=== PATIENT | female | born 1945 | race Caucasian/White ===

== ENCOUNTER 2019-12-15 13:47 | Outpatient (CLI) | payer MEDICARE, MEDICAID, SELFPAY ==
[2019-12-15 14:49] LABS: Creatinine Urine > 346.5 mg/dL; Total Protein Urine Random 69 mg/dL
[2019-12-15 14:54] LABS: Albumin Level 3.9 g/dL (3.5-5.1); Blood Urea Nitrogen 24 mg/dL (7-17); Calcium 8.9 mg/dL (8.4-10.2); Carbon Dioxide 26 mmol/L (22-30); Chloride 100 mmol/L (98-107); Estimated Glomerular Filt Rate 37; Glucose 102 mg/dL (65-105); Phosphorus 2.9 mg/dL (2.5-4.5); Potassium 3.6 mmol/L (3.4-5.0); Sodium 137 mmol/L (137-145)
[2019-12-15 15:06] LABS: Parathyroid Intact 61.4 pg/mL (7.5-53.5)
[2019-12-15 15:33] LABS: Vitamin D 25 Hydroxy 35.9 ng/mL
== END 2019-12-15 13:48 | disposition home or self-care (01) ==
PROVIDERS: PCP Family Medicine; Visit Provider Internal Medicine Nephrology
DX: N18.3 Chronic kidney disease, stage 3 (moderate) (principal); I12.9 Hypertensive chronic kidney disease with stage 1 through stage 4 chronic kidney disease, or unspecified chronic kidney disease; R80.8 Other proteinuria
CPT/HCPCS: 36415; 80069; 82306; 82570; 83970; 84156

== ENCOUNTER 2019-12-17 12:45 | Outpatient (CLI) | payer MEDICARE, MEDICAID, SELFPAY ==
--- NOTE | ~2019-12-17 | CT_ITS ---
EXAMINATION: CT lung screening EXAM DATE: 12/17/2019 13:46 INDICATION: Chest pain, shortness of breath, cough. Personal history of nicotine dependence. TECHNIQUE: Spiral low dose CT of the chest without contrast. Axial, coronal and sagittal images were reviewed. The dose-length product (DLP) for this examination was 185.34 mGy-cm. The exposure was t ailored according to patient size (auto mA exposure control), and iterative reconstruction (ASIR) was used as additional dose reduction technique. There is no prior study for comparison. FINDINGS: Some scattered mosaic attenuation probably mild air trapping. Several punctate granulomas unchanged. There is mild bronchiectasis. Tracheobronchial tree is patent. There is no mediastinal, hilar or axillary lymphadenopathy. There are no pleural or pericardial effusions. There is no pn eumothorax. Heart normal in size. There is moderate coronary arterial calcification, arterial scl erosis. Mild emphysema. There are cholecystectomy clips. Left adrenal adenoma. There is thoracic s pondylosis without osteoblastic or osteolytic lesions identified. IMPRESSION: Lung-RADS category 2, benign appearance or behavior (<1% chance of malignancy); recommend continued LDCT screening in 1 year. > Reviewed, dictated and finalized at location B. T RELATIONS COORDINATOR
== END 2019-12-17 12:46 | disposition home or self-care (01) ==
PROVIDERS: PCP Family Medicine; Visit Provider Internal Medicine Critical Care Medicine
DX: Z12.2 Encounter for screening for malignant neoplasm of respiratory organs (principal); Z87.891 Personal history of nicotine dependence
CPT/HCPCS: G0297

== ENCOUNTER 2019-12-17 13:48 | Emergency (ER) | payer MEDICARE, MEDICAID, SELFPAY ==
[2019-12-17] VITALS (8 sets, daily range): BP systolic 130–131; BP diastolic 70–80; PULSE 68–86; RESP 15–24; TEMP 36.2–37.1; O2SAT 98–100
--- NOTE | ~2019-12-17 | XR_ITS ---
EXAMINATION: XR chest 2V EXAM DATE: 12/17/2019 14:14 INDICATION: Shortness of breath, cough and nausea. TECHNIQUE: Frontal and lateral projections of the chest obtained and reviewed. Comparison is made to prior examination from 10/16/2018. FINDINGS: Shortness of breath, cough and nausea. The lungs are clear. There are no pleural effusion s. The cardiomediastinal silhouette is within normal limits. There is no pneumothorax suspected. T he bones and soft tissues are unremarkable. There is aortic arterial sclerosis. IMPRESSION: No acute cardiopulmonary findings. Reviewed, dictated and finalized at location B. H HAND
--- NOTE | 2019-12-17 13:54 | ECG_ITS ---
Measurements Intervals [place] Rate: 71 P: 14 SD: 162 QRS: -27 QRSD: 98 T: 65 QT: 426 QTc: 466 Interpretive Statements SINUS RHYTHM VOLTAGE CRITERIA FOR LVH CANNOT RULE OUT SEPTAL INFARCT, AGE INDETERMINATE BORDERLINE ST ABNORMALITY- LATERAL LEADS BASELINE ARTIFACT- I, II, III, AVR, AVL, AVF, V1, V5-V6 ABNORMAL ECG Electronically Signed On 12-18-2019 10:49:08 EMERGENCY VEHICLE DRIVER by Peterson Roque D.O.
[2019-12-17 14:10] LABS: Basophils Percent Auto 0.2 % (0.2-1.2); Eosinophils Percent Auto 0.2 % (0-4.4); Hematocrit 38.9 % (37.0-47.0); Hemoglobin 12.5 g/dL (12.0-15.0); Immature Granulocyte Absolute 0.03 K/mm3 (0.00-0.031); Immature Granulocyte Percent A 0.4 % (0-0.5); Lymphocytes Absolute Auto 2.21 K/mm3 (0.9-3.2); Lymphocytes Percent Auto 27.3 % (18.3-44.2); Mean Corpuscular HGB Conc 32.1 g/dl (32-36); Mean Corpuscular Hemoglobin 28.6 pg (26-34); Mean Platelet Volume 9.7 fl (7.4-10.4); Monocytes Absolute Auto 0.9 K/mm3 (0.1-0.6); Monocytes Percent Auto 11.1 % (2.6-8.5); Neutrophils Absolute Auto 4.9 K/mm3 (1.3-6.7); Neutrophils Percent Auto 60.8 % (45.5-73.1); Platelet Count Result 335 k/mm3 (150-375); Red Blood Count 4.37 M/mm3 (4.2-5.4); Red Cell Distribution Width 13.5 % (11.5-14.5); White Blood Count 8.1 K/mm3 (4.5-10.0)
[2019-12-17 14:21] LABS: Blood Urea Nitrogen 21 mg/dL (7-17); Calcium 9.4 mg/dL (8.4-10.2); Carbon Dioxide 25 mmol/L (22-30); Chloride 99 mmol/L (98-107); Estimated CRCL calculation 34 ml/min; Estimated Glomerular Filt Rate 40; Glucose 111 mg/dL (65-105); Potassium 3.7 mmol/L (3.4-5.0); Sodium 139 mmol/L (137-145)
--- NOTE | 2019-12-17 14:33 | ED.SOB ---
HPI - SOB/Dyspnea General Chief Complaint: Shortness of Breath/Dyspnea Stated Complaint: sob Time Seen by Provider: 12/17/19 14:28 Source: patient and RN notes reviewed Mode of arrival: ambulatory Limitations: no limitations History of Present Illness HPI Narrative: Pt is a 74 y/o female with a Hx of COPD, who presents to the ED with c/o SOB. She notes that she has had SOB for roughly the past month. Pt states that she was recently seen by her pipe organ mechanic, Dr. Jennings, for her symptoms, and notes that she was prescribed steroids. She states that the medication seemed to alleviate her symptoms. Pt notes that her grandchildren were recently diagnosed with the flu, and states that she is concerned she may also have the flu. She states that she has recently had a productive cough, shakiness, nausea, and vomiting. MD elicited complaint: shortness of breath Pertinent past history: COPD Onset (ago): month(s) (1) Known history of: COPD Associated symptoms: cough (productive), nausea/vomiting and other (shakiness) Related Data Home Medications Medication Instructions Recorded Confirmed fluoxetine 60 mg tablet 60 mg PO DAILY 11/19/19 11/20/19 fluticasone fur. 100 mcg-umeclid 1 inhalation INHALATION DAILY 11/19/19 11/20/19 62.5 mcg-vilant 25 mcg inhalat.powder hydralazine 25 mg tablet 25 mg PO TID 11/19/19 11/20/19 levothyroxine 112 mcg tablet 112 mcg PO DAILY 11/19/19 11/20/19 atorvastatin 40 mg tablet 40 mg PO DAILY 11/20/19 11/20/19 hydrochlorothiazide 25 mg tablet 25 mg PO DAILY 11/20/19 11/20/19 hydrocodone 10 mg-acetaminophen 1 tablet PO Q8H PRN 11/20/19 11/20/19 325 mg tablet magnesium 200 mg tablet 400 mg PO DAILY tablet 11/20/19 11/20/19 Allergies Allergy/AdvReac Type Severity Reaction Status Date / Time NILTON Inhibitors Allergy Unknown Angioedema Verified 12/17/19 14:35 Review of Systems Review of Systems: All systems reviewed & are unremarkable except as noted in HPI and below Constitutional: Constitutional: Reports other (shakiness) Respiratory: Respiratory: Reports cough (productive) and Reports dyspnea Gastrointestinal: Gastrointestinal: Reports nausea and Reports vomiting PMFSH Past Medical History Medical History Anxiety Arthritis Asthma Bronchitis Carpal tunnel syndrome CHF (congestive heart failure) Chronic obstructive pulmonary disease Depression Diabetes GERD (gastroesophageal reflux disease) Hiatal hernia HLD (hyperlipidemia) HTN (hypertension) Hypothyroidism Kidney stones NICOLA (obstructive sleep apnea) Pneumonia Renal disease RLS (restless legs syndrome) Surgical History Surgical History History of carpal tunnel release Hx of cholecystectomy Hx of elbow surgery bilateral ulnar release Hx of hysterectomy Hx of spinal surgery Family History Family History (Updated 06/04/16 @ 23:19 by DOCTOR UNKNOWN) Father Hypertension Family history of malignant neoplasm of brain Family history of heart disease in male family member before age 55 Mother Family history of diabetes mellitus in first degree relative Family history of heart disease in male family member before age 55 Social History Social History Smoking packs per day: 1 Smoking cigarettes per day: 20.0 Smoking status: Current every day smoker Alcohol intake: never Comments PCP is Dr. Mueller. Exam Narrative: Exam Narrative: APPEARANCE: No acute distress, nontoxic, resting in bed EYES: EOMI HEENT: Normocephalic, atraumatic, bilateral turbinates boggy, mild erythema no exudate posterior pharynx RESPIRATORY: No respiratory distress wheezing in bilateral upper lung chaparro, no rhonchi or rales CARDIOVASCULAR: Regular rate and rhythm without murmurs rubs or gallops. ABDOMINAL: Soft, nontender, nondistended, no rebound or guarding MUSCULOSKELETAl: Moves all extremities. No
[2019-12-17] MEDS: predniSONE 20 MG TABLET 60 MG PO (14:45)
[2019-12-17] MEDS: IPRATROPIUM BR 0.02% INH SOLN 0.5 MG/2.5 ML VIAL INHALATION ×2 (14:49→15:30)
[2019-12-17] MEDS: ALBUTEROL SULFATE NEB 2.5 MG/0.5 ML INH 5 MG INHALATION ×2 (14:49→15:30)
[2019-12-17 15:10] LABS: NT Pro B Type Natriuretic Pept 161 PG/ML (5-100); Troponin I < 0.012 ng/mL (0.000-0.034)
== END 2019-12-17 16:14 | disposition home or self-care (01) ==
PROVIDERS: Emergency Provider Emergency Medicine; PCP Family Medicine
DX: J44.0 Chronic obstructive pulmonary disease with (acute) lower respiratory infection (principal); J20.9 Acute bronchitis, unspecified; F41.9 Anxiety disorder, unspecified; M19.90 Unspecified osteoarthritis, unspecified site; I11.0 Hypertensive heart disease with heart failure; I50.9 Heart failure, unspecified; F32.9 Major depressive disorder, single episode, unspecified; E11.9 Type 2 diabetes mellitus without complications; K21.9 Gastro-esophageal reflux disease without esophagitis; E78.5 Hyperlipidemia, unspecified; E03.9 Hypothyroidism, unspecified; Z87.442 Personal history of urinary calculi; G47.30 Sleep apnea, unspecified; G25.81 Restless legs syndrome
CPT/HCPCS: 36415; 71046; 80048; 83880; 84484; 85025; 87804; 93005; 94640; 99284; J7512

== ENCOUNTER 2020-11-20 14:40 | Outpatient (CLI) | payer MEDICARE, MEDICAID, SELFPAY ==
--- NOTE | ~2020-11-20 | XR_ITS ---
EXAMINATION: XR chest 2V EXAM DATE: 11/20/2020 15:16 INDICATION: Cough since 10/31/2020, shortness of breath and hypertension. TECHNIQUE: Frontal and lateral projections of the chest obtained and reviewed. Comparison is made to prior examination from 12/17/2019. FINDINGS: There is aortic arteriosclerosis. There are cholecystectomy clips. The lungs are clear. T here are no pleural effusions. The cardiomediastinal silhouette is within normal limits. There is n o pneumothorax suspected. The bones and soft tissues are unremarkable. IMPRESSION: No acute cardiopulmonary findings. Reviewed, dictated and finalized at location B. BRANDER
[2020-11-20 15:08] LABS: Basophils Absolute Auto 0.1 K/mm3 (0.0-0.1); Eosinophils Absolute Auto 0.1 K/mm3 (0-0.3); Eosinophils Percent Auto 2.1 % (0-4.4); Hematocrit 31.7 % (37.0-47.0); Hemoglobin 10.4 g/dL (12.0-15.0); Immature Granulocyte Absolute 0.02 K/mm3 (0.00-0.031); Immature Granulocyte Percent A 0.3 % (0-0.5); Lymphocytes Absolute Auto 1.88 K/mm3 (0.9-3.2); Mean Corpuscular HGB Conc 32.8 g/dl (32-36); Mean Corpuscular Hemoglobin 29.7 pg (26-34); Mean Corpuscular Volume 90.6 fl (80-100); Mean Platelet Volume 9.1 fl (7.4-10.4); Monocytes Absolute Auto 0.9 K/mm3 (0.1-0.6); Neutrophils Absolute Auto 3.1 K/mm3 (1.3-6.7); Neutrophils Percent Auto 51.6 % (45.5-73.1); Platelet Count Result 242 k/mm3 (150-375); Red Cell Distribution Width 13.3 % (11.5-14.5); White Blood Count 6.1 K/mm3 (4.5-10.0)
[2020-11-20 15:19] LABS: Alanine Aminotransferase 15 U/L (4-35); Albumin Level 3.8 g/dL (3.5-5.1); Alkaline Phosphatase 48 U/L (38-126); Anion Gap 3 mmol/L (8-16); Aspartate Amino Transferase 29 U/L (14-36); Bilirubin,Total 0.3 mg/dL (0.2-1.3); Blood Urea Nitrogen 26 mg/dL (7-17); Calcium 9.1 mg/dL (8.4-10.2); Carbon Dioxide 32 mmol/L (22-30); Chloride 98 mmol/L (98-107); Estimated Glomerular Filt Rate 34; Glucose 115 mg/dL (65-105); Potassium 4.2 mmol/L (3.4-5.0); Sodium 133 mmol/L (137-145)
[2020-11-20 15:49] LABS: Thyroid Stimulating Hormone 0.133 uIU/mL (0.465-4.680); Total Triiodothyronine (T3) 0.86 NG/ML (0.97-1.69)
[2020-11-20 16:24] LABS: Free T4 Free Thyroxine 1.27 ng/mL (0.78-2.19)
== END 2020-11-20 14:41 | disposition home or self-care (01) ==
LOC: ANHLAB 14:46
PROVIDERS: PCP Family Medicine; Visit Provider Nurse Practitioner
DX: I12.9 Hypertensive chronic kidney disease with stage 1 through stage 4 chronic kidney disease, or unspecified chronic kidney disease (principal); N18.2 Chronic kidney disease, stage 2 (mild); F41.1 Generalized anxiety disorder; R45.0 Nervousness; L65.9 Nonscarring hair loss, unspecified; R53.1 Weakness; R05 Cough; R06.02 Shortness of breath
CPT/HCPCS: 36415; 71046; 80053; 84439; 84443; 84480; 85025

== ENCOUNTER 2020-11-22 17:08 | Emergency (ER) | payer MEDICARE, MEDICAID, SELFPAY ==
[2020-11-22] VITALS (8 sets, daily range): BP systolic 117–146; BP diastolic 44–110; PULSE 56–78; RESP 6–20; TEMP 36.3–37.4; O2SAT 97–99
--- NOTE | ~2020-11-22 | XR_ITS ---
EXAMINATION: XR chest 1V portable DATE: 11/22/2020 18:01 INDICATION: COPD, hypertension and congestive heart failure presenting with low back pain and weaknes s TECHNIQUE: frontal view of the chest was obtained. COMPARISON: Chest radiograph dated 11/20/2020 FINDINGS: The lungs remain clear with no focal airspace opacities, pulmonary edema, pleural effusion or pneumot horax. The cardiomediastinal silhouette is normal. Atherosclerotic calcifications at the aortic arch. IMPRESSION: 1. No acute cardiopulmonary disease. Reviewed, dictated and finalized at location A. LE DYE MIXER
--- NOTE | ~2020-11-22 | CT_ITS ---
EXAMINATION: CT abdomen pelvis wo con DATE: 11/22/2020 19:18 INDICATION: Abdominal pain, back pain and weakness TECHNIQUE: Computed tomography (CT) of the abdomen and pelvis was performed without intravenous contr ast. Automated exposure control and iterative reconstruction technique were employed. The dose-length product was 1416.37 mGy-cm. COMPARISON: 08/04/2017 FINDINGS: Mild atelectasis at the lingula and right middle lobe. Heart size is normal. No pericardial or pleura l effusion. Atherosclerotic coronary artery calcific lesion. Aortic valve calcification. 11 mm cyst i n the left hepatic lobe. Cholecystectomy clips at the gallbladder fossa. Spleen, pancreas and right a drenal gland are normal. Again seen is chronic low-density thickening of the lateral limb of the left adrenal gland which could be related to hyperplasia or small adenoma atherosclerotic calcification i s at the bilateral renal elan. Tiny punctate calcifications at the bilateral renal elan which appear associated with vasculature and would favor atherosclerotic calcifications over nonobstructing nephro lithiasis. No ureteral stones or hydronephrosis. Small lesions at both kidneys with slightly greater attenuation than the surrounding renal parenchyma, indeterminate but most likely representing protein aceous/hemorrhagic cysts, the largest on the left measuring 11 mm. There is mild colonic diverticulos is with a sigmoid predominance. There is no adjacent inflammatory change to suggest diverticulitis. Normal small bowel and appendix. Bladder is normal. The uterus is not identified and has likely been surgically resected. No free intraperitoneal gas or fluid. No pathologically enlarged abdominal or pe lvic lymphadenopathy. Mild lumbar levocurvature with moderate spondylosis. IMPRESSION: 1. No acute intra-abdominal/pelvic process. 2. A few small indeterminate bilateral renal lesions largest on the left measuring 11 mm with slightl y higher attenuation than the surrounding renal parenchyma statistically most likely to represent a p roteinaceous/hemorrhagic cyst. Consider follow-up pre and postcontrast MRI for more definitive determ ination. 3. Possible tiny nonobstructing nephrolithiasis versus more likely atherosclerotic calcifications at the renal elan. Reviewed, dictated and finalized at location A. MING FREIGHT CLERK IMPRESSION: 1. No acute intra-abdominal/pelvic process. 2. A few small indeterminate bilateral renal lesions largest on the left measur ing 11 mm with slightly higher attenuation than the surrounding renal parenchym a statistically most likely to represent a proteinaceous/hemorrhagic cyst. Cons ider follow-up pre and postcontrast MRI for more definitive determination. 3. Possible tiny nonobstructing nephrolithiasis versus more likely atherosclero tic calcifications at the renal elan.
--- NOTE | 2020-11-22 17:29 | ECG_ITS ---
Measurements Intervals Anthony Rate: 57 P: 35 NH: 188 QRS: -17 QRSD: 98 T: 60 QT: 465 QTc: 454 Interpretive Statements SINUS BRADYCARDIA CANNOT RULE OUT SEPTAL INFARCT, AGE INDETERMINATE LEFT VENTRICULAR HYPERTROPHY AND ST-T CHANGE BASELINE ARTIFACT- I, II, III, AVR, AVL, AVF ABNORMAL ECG Electronically Signed On 11-22-2020 21:08:10 [employer] VICE PRESIDENT by Peterson Roque D.O.
--- NOTE | 2020-11-22 17:32 | ED.WEAKNESS ---
HPI - Weakness General Chief complaint: Urogenital-Female Stated complaint: weakness, shakes, kidney pain Time Seen by Provider: 11/22/20 17:16 Source: patient Mode of arrival: wheelchair Limitations: no limitations History of Present Illness HPI Narrative: This is a 75 year old female that presents to the ER for generalized weakness. Reports she has not felt well since [place]. Reports a mild cough and myalgias. Reports swelling in her lower extremities. Reports shortness of breath which is intermittent. Denies fever, chest pain, abdominal pain, vomiting, dysuria or hematuria. Related Data Home Medications Medication Instructions Recorded Confirmed fluoxetine 60 mg tablet 60 mg PO DAILY 11/19/19 11/20/19 fluticasone fur. 100 mcg-umeclid 1 inhalation INHALATION DAILY 11/19/19 11/20/19 62.5 mcg-vilant 25 mcg inhalat.powder hydralazine 25 mg tablet 25 mg PO TID 11/19/19 11/20/19 levothyroxine 112 mcg tablet 112 mcg PO DAILY 11/19/19 11/20/19 atorvastatin 40 mg tablet 40 mg PO DAILY 11/20/19 11/20/19 hydrochlorothiazide 25 mg tablet 25 mg PO DAILY 11/20/19 11/20/19 hydrocodone 10 mg-acetaminophen 1 tablet PO Q8H PRN 11/20/19 11/20/19 325 mg tablet magnesium 200 mg tablet 400 mg PO DAILY tablet 11/20/19 11/20/19 Allergies Allergy/AdvReac Type Severity Reaction Status Date / Time NILTON Inhibitors Allergy Unknown Angioedema Verified 11/22/20 17:24 Review of Systems Review of Systems: Narrative: CONSTITUTIONAL: Denies fever ENT: Reports congestion CARDIOVASCULAR: Reports edema. Denies chest pain RESPIRATORY: Reports cough and dyspnea. GASTROINTESTINAL: Denies abdominal pain, nausea, vomiting GENITOURINARY: Denies dysuria or hematuria. MUSCULOSKELETAL: Reports back pain, joint pain, and myalgia. NEUROLOGIC: Reports generalized weakness. PSYCHIATRIC: Reports anxiety All systems reviewed & are unremarkable except as noted in HPI and below PMFSH Past Medical History Medical History (Updated 11/22/20 @ 19:42 by Cindy Roth PA-C) Anxiety Arthritis Asthma Bronchitis Carpal tunnel syndrome CHF (congestive heart failure) Chronic obstructive pulmonary disease Depression Diabetes GERD (gastroesophageal reflux disease) Hiatal hernia HLD (hyperlipidemia) HTN (hypertension) Hypothyroidism Kidney stones NICOLA (obstructive sleep apnea) Pneumonia Renal disease RLS (restless legs syndrome) Surgical History Surgical History History of carpal tunnel release Hx of cholecystectomy Hx of elbow surgery bilateral ulnar release Hx of hysterectomy Hx of spinal surgery Family History Family History (Updated 06/04/16 @ 23:19 by DOCTOR UNKNOWN) Father Hypertension Family history of malignant neoplasm of brain Family history of heart disease in male family member before age 55 Mother Family history of diabetes mellitus in first degree relative Family history of heart disease in male family member before age 55 Social History Social History Smoking packs per day: 1 Smoking cigarettes per day: 20.0 Smoking status: Current every day smoker Alcohol intake: never Gender identity (if verbalized by the patient): Female Exam Narrative: Exam Narrative: GENERAL: Elderly, well-nourished, anxious HEAD: Normocephalic, atraumatic. EYES: EOMI. ENT: Nares clear, no rhinorrhea or epistaxis. Mucous membranes moist. Oropharynx without tonsillar hypertrophy exudate or other lesions. NECK: Supple. No adenopathy or masses. No carotid bruits or JVD CHEST: Clear to auscultation. No respiratory distress. No wheezes rales or rhonchi HEART: Regular rate and rhythm. No murmur heard. Normal peripheral pulses. ABDOMEN: Soft, nontender, nondistended, normal active bowel sounds. No CVA tenderness EXTREMITIES: Normal range of motion. No edema. SKIN: Warm, dry, no rash. NEURO: No focal deficits. Alert and oriented x3. PSYCH: An
[2020-11-22 17:40] LABS: Basophils Absolute Auto 0.1 K/mm3 (0.0-0.1); Basophils Percent Auto 0.9 % (0.2-1.2); Eosinophils Absolute Auto 0.2 K/mm3 (0-0.3); Eosinophils Percent Auto 2.3 % (0-4.4); Hemoglobin 10.7 g/dL (12.0-15.0); Immature Granulocyte Absolute 0.02 K/mm3 (0.00-0.031); Immature Granulocyte Percent A 0.3 % (0-0.5); Lymphocytes Absolute Auto 1.86 K/mm3 (0.9-3.2); Lymphocytes Percent Auto 28.1 % (18.3-44.2); Mean Corpuscular HGB Conc 33.4 g/dl (32-36); Mean Corpuscular Hemoglobin 30.3 pg (26-34); Mean Corpuscular Volume 90.7 fl (80-100); Mean Platelet Volume 9.3 fl (7.4-10.4); Monocytes Absolute Auto 0.9 K/mm3 (0.1-0.6); Monocytes Percent Auto 13.7 % (2.6-8.5); Neutrophils Absolute Auto 3.6 K/mm3 (1.3-6.7); Neutrophils Percent Auto 54.7 % (45.5-73.1); Platelet Count Result 283 k/mm3 (150-375); Red Blood Count 3.53 M/mm3 (4.2-5.4); Red Cell Distribution Width 13.4 % (11.5-14.5); White Blood Count 6.6 K/mm3 (4.5-10.0)
[2020-11-22 17:50] LABS: INR 0.9; Prothrombin Time 13.2 Seconds (11.1-14.7)
[2020-11-22 17:51] LABS: Partial Thromboplastin Time 26.9 SECONDS (22.3-36.8)
[2020-11-22 17:55] LABS: Alanine Aminotransferase 17 U/L (4-35); Albumin Level 3.9 g/dL (3.5-5.1); Alkaline Phosphatase 65 U/L (38-126); Anion Gap 4 mmol/L (8-16); Aspartate Amino Transferase 29 U/L (14-36); Bilirubin,Total 0.3 mg/dL (0.2-1.3); Blood Urea Nitrogen 20 mg/dL (7-17); CRP < 0.5 mg/dL (<1.0); Carbon Dioxide 30 mmol/L (22-30); Chloride 102 mmol/L (98-107); Estimated CRCL calculation 36 ml/min; Estimated Glomerular Filt Rate 40; Glucose 89 mg/dL (65-105); Lipase 100 U/L (23-300); Potassium 4.1 mmol/L (3.4-5.0); Sodium 136 mmol/L (137-145)
[2020-11-22 17:57] LABS: Add Urine Microscopic? YES; Appearance Urine Clear (Clear); Bilirubin Urine Negative (Negative); Blood Urine Negative (Negative); Color Urine Yellow (Yellow); Glucose Urine UA Negative (Negative); Ketones Urine Negative (Negative); Leukocyte Esterase Ur Negative LEU/UL (Negative); Nitrate Urine Negative (Negative); Protein Urine Negative (Negative); RBC Urine 0-2 /hpf (0-2); Specific Grav Ur 1.013 (1.001-1.035); Squamous Epithelial Cell Urine Rare /hpf (Few); Urobilinogen Urine Negative mg/dL (<2.0); WBC Urine 0-3 /hpf
--- NOTE | 2020-11-22 17:59 | PC.NURSE ---
Called lab to add on d dimer
[2020-11-22 18:02] LABS: NT Pro B Type Natriuretic Pept 309 PG/ML (5-100)
[2020-11-22 18:06] LABS: Lactic Acid Reflex 1.3 mmol/L (0.7-2.1)
[2020-11-22 18:09] LABS: D Dimer 0.66 ug/mL (<0.48)
[2020-11-22 18:55] LABS: Thyroid Stimulating Hormone Reflex 0.196 uIU/mL (0.465-4.68)
[2020-11-22 19:30] LABS: Free T4 Free Thyroxine Reflex 1.54 ng/dL (0.78-2.19)
[2020-11-22 20:18] LABS: Total Triiodothyronine (T3) 0.99 NG/ML (0.97-1.69)
[2020-11-24 16:31] LABS: SARS-CoV-2 RNA PCR Negative
== END 2020-11-22 20:14 | disposition home or self-care (01) ==
PROVIDERS: Physician Assistant; Emergency Provider Emergency Medicine; PCP Family Medicine
DX: B34.9 Viral infection, unspecified (principal); Z20.822 Contact with and (suspected) exposure to COVID-19; I50.9 Heart failure, unspecified; I11.0 Hypertensive heart disease with heart failure; J44.9 Chronic obstructive pulmonary disease, unspecified; E11.9 Type 2 diabetes mellitus without complications; K21.9 Gastro-esophageal reflux disease without esophagitis; E78.5 Hyperlipidemia, unspecified; E03.9 Hypothyroidism, unspecified; G47.33 Obstructive sleep apnea (adult) (pediatric); G25.81 Restless legs syndrome; M19.90 Unspecified osteoarthritis, unspecified site; F41.9 Anxiety disorder, unspecified; Z87.442 Personal history of urinary calculi; N28.9 Disorder of kidney and ureter, unspecified; F17.210 Nicotine dependence, cigarettes, uncomplicated; R00.1 Bradycardia, unspecified; R94.31 Abnormal electrocardiogram [ECG] [EKG]
CPT/HCPCS: 36415; 51701; 71045; 74176; 80053; 81001; 83605; 83690; 83880; 84439; 84443; 84480; 85025; 85380; 85610; 85730; 86140; 87804; 93005; 99284; C9803; U0003; U0005

== ENCOUNTER 2020-11-28 13:39 | Outpatient (CLI) | payer MEDICARE, MEDICAID, SELFPAY ==
--- NOTE | ~2020-11-28 | US_ITS ---
EXAMINATION: US renal BI EXAM DATE: 11/28/2020 14:16 INDICATION: Acute kidney injury, renal failure. TECHNIQUE: Multiple grayscale and Doppler images of the kidneys were obtained (by a technologist who performed the scan) and subsequently reviewed. Correlation is made to CT scan 11/22/2019. FINDINGS: Right kidney: There is normal contour and echogenicity. It measures 10.3 x 5.0 x 4.9 centimeters. T here are no focal renal lesions identified. There is no hydronephrosis. Left kidney: There is normal contour and echogenicity. It measures 10.3 x 5.5 x 5.0 centimeters. Th ere were at least small 4 homogeneously hyperdense left renal lesions seen on prior CT scan which are not identified on this examination. These are statistically most likely hemorrhagic cysts, with one measuring 72 Hounsfield units and another 61 Hounsfield units. Multiple renal cell cancers would be u nusual. There is no hydronephrosis. Bladder unremarkable. IMPRESSION: 1. Sonographically unremarkable kidneys. 2. CT lesions identified most likely hemorrhagic cysts. Assuming patient not able to have MR with con trast, consider follow-up abdomen CT without contrast in 6-12 months. Reviewed, dictated and finalized at location A. T END POLISHER IMPRESSION: 1. Sonographically unremarkable kidneys. 2. CT lesions identified most likely hemorrhagic cysts. Assuming patient not ab le to have MR with contrast, consider follow-up abdomen CT without contrast in 6-12 months.
== END 2020-11-28 13:40 | disposition home or self-care (01) ==
PROVIDERS: Family Provider Family Medicine; PCP Family Medicine; Visit Provider Nurse Practitioner
DX: N17.9 Acute kidney failure, unspecified (principal)
CPT/HCPCS: 76775

== ENCOUNTER → 2021-04-11 00:48 | Outpatient (CLI) | payer MEDICARE, MEDICAID, SELFPAY ==
[2021-04-11 19:38] LABS: SARS-CoV-2 RNA PCR Negative
== END ==
PROVIDERS: PCP Family Medicine; Visit Provider Internal Medicine Gastroenterology
DX: Z01.812 Encounter for preprocedural laboratory examination (principal); Z20.822 Contact with and (suspected) exposure to COVID-19
CPT/HCPCS: C9803; U0003; U0005

== ENCOUNTER 2021-04-15 01:26 | Day surgery (SDC) | payer MEDICARE, MEDICAID, SELFPAY ==
[2021-04-02 14:58] VITALS: BMI 38.0
[2021-04-15 06:50] VITALS: BP 170/65; PULSE 69; RESP 18; TEMP 36.2; O2SAT 97; BMI 36.7
[2021-04-15] MEDS: LACTATED RINGERS 1,000 ML 150 ML IV CONT (06:54)
--- NOTE | 2021-04-15 07:30 | WPDHPUPDATE1 ---
History and Physical Update Update Date/Time: 04/15/21 07:30 History and Physical has been reviewed, including an updated exam of the patient. There are NO changes in the patient's condition. Risks, benefits, and alternatives have been discussed and questions answered. Patient agrees to proceed with procedure.
--- NOTE | 2021-04-15 07:53 | WPDANESEPPF ---
Anes - Initial Pre Proc Eval Procedure: Operation Date: 04/15/21 08:00 Proposed Procedures p Colonoscopy - Manuel Lawrence MD Date/Time: 04/15/21 07:53 Surgeon: Manuel Lawrence MD Pre Op Diagnosis: diarrhea Patient Data Age: 75 Gender: F Height: 5 ft 2 in Weight: 91.1 kg Last Vital Signs Temp 97.2 F L 04/15/21 06:50 Pulse 69 04/15/21 06:50 Resp 18 04/15/21 06:50 BP 170/65 H 04/15/21 06:50 Pulse Ox 97 04/15/21 06:50 Allergies Allergy/AdvReac Type Severity Reaction Status Date / Time NILTON Inhibitors Allergy Unknown Angioedema Verified 04/15/21 06:49 Home Medications Medication Instructions Recorded Confirmed Type levothyroxine 112 mcg tablet 112 mcg PO DAILY 11/19/19 04/15/21 History atorvastatin 40 mg tablet 40 mg PO DAILY 11/20/19 04/15/21 History hydrocodone 10 mg-acetaminophen 1 tablet PO Q8H PRN 11/20/19 04/15/21 History 325 mg tablet ferrous sulfate 325 mg (65 mg 325 mg PO BID 02/27/21 04/15/21 History iron) tablet hydralazine 25 mg tablet 50 mg PO TID tablet 02/27/21 04/15/21 History oxybutynin chloride 10 mg 10 mg PO DAILY 02/27/21 04/15/21 History tablet,extended release 24 hr trazodone 100 mg tablet 100 mg PO HS tablet 02/27/21 04/15/21 History sodium,potassium,mag sulfates 17.5 See Rx Instructions PO .COMPLEX 03/18/21 04/15/21 Rx gram-3.13 gram-1.6 gram oral soln #354 ml fluoxetine 20 mg PO DAILY 04/02/21 04/15/21 History fluoxetine 60 mg PO DAILY 04/02/21 04/15/21 History Patient hx anesthesia problems: none Family hx anesthesia problems: none PMFSH Past Medical History Medical History (Updated 02/27/21 @ 11:34 by Manuel Lawrence MD) Anxiety Arthritis Asthma Bronchitis Carpal tunnel syndrome CHF (congestive heart failure) Chronic obstructive pulmonary disease Depression Diabetes GERD (gastroesophageal reflux disease) Hiatal hernia HLD (hyperlipidemia) HTN (hypertension) Hypothyroidism Kidney stones NICOLA (obstructive sleep apnea) Pneumonia Renal disease RLS (restless legs syndrome) Surgical History Surgical History History of carpal tunnel release Hx of cholecystectomy Hx of elbow surgery bilateral ulnar release Hx of hysterectomy Hx of spinal surgery Family History Family History Father Hypertension Family history of malignant neoplasm of brain Family history of heart disease in male family member before age 55 Mother Family history of diabetes mellitus in first degree relative Family history of heart disease in male family member before age 55 Social History Social History (Updated 02/27/21 @ 11:19 by Jasmyne Chu CMA) Smoking packs per day: 1 Smoking cigarettes per day: 20.0 Years smoked: 50 Smoking pack-years: 50.00 Smoking status: Former smoker Tobacco type: cigarettes Alcohol intake: never Substance use: never Living arrangements: alone Gender identity (if verbalized by the patient): Female 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: No Anes - Eval Final PreProcedure Day of Procedure 04/15/21 07:53 Patient weight: obese Heart: regular rate and rhythm Lungs: clear to auscultation Airway: Mallampati scale class III Neurological: alert and oriented Last oral intake: >/= 8 hours ASA classification: III Emergent: no Anesthetic plan: proceed Anesthesia type and monitoring: general GIVS and standard monitoring Informed Consent: The patient's anesthetic plan and its attendant risks and benefits were discussed with the patient/family/POA. Questions were solicited and answers provided to the satisfaction of the patient/family/POA.
[2021-04-15 08:26] VITALS: BP 100/46; PULSE 56; RESP 19; O2SAT 94
[2021-04-15 08:36] VITALS: BP 138/39; PULSE 60; RESP 17; O2SAT 100
[2021-04-15 08:46] VITALS: BP 146/86; PULSE 57; RESP 20; O2SAT 97
--- NOTE | 2021-04-17 10:42 | WPDGICN ---
Assessment and Plan Assessment and plan (1) History of colon polyps: Code(s): Z86.010 - Personal history of colonic polyps Status: Acute Assessment and Plan: Patient has a history of colon polyps removed at [facility] in 2017. Because of follow-up colonoscopy is advised 3 4 years after that will proceed to with colonoscopy at this time. (2) Diarrhea: Code(s): R19.7 - Diarrhea, unspecified Status: Acute Assessment and Plan: Patient has a history of ongoing loose to watery stools. This been persistent for 3-4 months. This continues to occur 2 to 3 times a day. It may be related to medications such as magnesium. Iron is unlikely to contribute to diarrhea as patient suspected it usually causes constipation. I would suggest holding the magnesium. Hopefully this can be discontinued long-term. Kaopectate is suggested. Fiber supplementation with Metamucil or for FiberCon is advised. Colonoscopy will be performed to evaluate her change in bowel habits. As well as her prior history of colon polyps. GI Consult Note Consult date/time: 04/17/21 10:42 HPI: Jacy Mills is a 75 year old female Presents on 04/15/2021 for colonoscopy. Patient followed by Dr. Velásquez. Patient reports diarrhea for last 4 months. Described as soft to watery in nature. She notes associated abdominal pain and denies any bleeding. She has been on iron replacement. 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 Her last colonoscopy was in 2017. At that time colon polyps were identified. Patient denies any family history of colon polyps. Patient denies any recent travel. No one else in the family has been ill. Review of Systems Review of Systems: All systems reviewed & are unremarkable except as noted in HPI and below [facility] Past Medical History Medical History (Updated 04/17/21 @ 10:45 by Manuel Lawrence MD) Anxiety Arthritis Asthma Bronchitis Carpal tunnel syndrome CHF (congestive heart failure) Chronic obstructive pulmonary disease Depression Diabetes GERD (gastroesophageal reflux disease) Hiatal hernia HLD (hyperlipidemia) HTN (hypertension) Hypothyroidism Kidney stones NICOLA (obstructive sleep apnea) Pneumonia Renal disease RLS (restless legs syndrome) Surgical History Surgical History History of carpal tunnel release Hx of cholecystectomy Hx of elbow surgery bilateral ulnar release Hx of hysterectomy Hx of spinal surgery Family History Family History Father Hypertension Family history of malignant neoplasm of brain Family history of heart disease in male family member before age 55 Mother Family history of diabetes mellitus in first degree relative Family history of heart disease in male family member before age 55 Social History Social History (Updated 02/27/21 @ 11:19 by Jasmyne Chu CMA) Smoking packs per day: 1 Smoking cigarettes per day: 20.0 Years smoked: 50 Smoking pack-years: 50.00 Smoking status: Former smoker Tobacco type: cigarettes Alcohol intake: never Substance use: never Living arrangements: alone Gender identity (if verbalized by the patient): Female 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: No Meds Home Medications and Allergies Home Medications Medication Instructions Recorded Confirmed Type levothyroxine 112 mcg tablet 112 mcg PO DAILY 11/19/19 04/15/21 History atorvastatin 40 mg tablet 40 mg PO DAILY 11/20/19 04/15/21 History hydrocodone 10 mg-acetaminophen 1 tablet PO Q8H PRN 11/20/19 04/15/21 History 325 mg tablet ferrous sulfate 325 mg (65 mg 325 mg PO BID 02/27/21 04/15/21 History iron) tablet hydralazine 25 mg tablet 50 mg PO TID tablet 02/27/21 04/15/21 History oxybutynin chloride 10 mg 10 mg PO DAILY 02/27/21 04/15/21 History tablet
== END 2021-04-15 08:57 | disposition home or self-care (01) ==
PROVIDERS: PCP Family Medicine; Visit Provider Internal Medicine Gastroenterology
PROC: 0DJD8ZZ Inspection of Lower Intestinal Tract, Via Natural or Artificial Opening Endoscopic (ICD-10-PCS; CPT 45378; principal; 2021-04-15 08:00)
DX: K52.9 Noninfective gastroenteritis and colitis, unspecified (principal); K64.8 Other hemorrhoids; K57.30 Diverticulosis of large intestine without perforation or abscess without bleeding; Z86.010 Personal history of colon polyps; I11.0 Hypertensive heart disease with heart failure; I50.9 Heart failure, unspecified; E78.5 Hyperlipidemia, unspecified; J44.9 Chronic obstructive pulmonary disease, unspecified; F41.8 Other specified anxiety disorders; E11.9 Type 2 diabetes mellitus without complications; E03.9 Hypothyroidism, unspecified; G47.33 Obstructive sleep apnea (adult) (pediatric); G25.81 Restless legs syndrome; Z87.891 Personal history of nicotine dependence; E66.9 Obesity, unspecified; Z68.36 Body mass index [BMI] 36.0-36.9, adult
CPT/HCPCS: 45380; 88305; C9803; J2704; J7120; U0003; U0005

== ENCOUNTER 2021-08-12 12:47 | Outpatient (CLI) | payer MEDICARE, MEDICAID, SELFPAY ==
--- NOTE | ~2021-08-12 | MM_ITS ---
EXAMINATION: MM screening portia BI w christina HISTORY: Screening mammogram TECHNIQUE: Craniocaudal and mediolateral oblique 3-D tomosynthesis images were obtained and synthetic 2-D images were generated. CAD analysis was submitted and interpreted. COMPARISON: 04/11/2019 bilateral digital screening mammogram BREAST PARENCHYMAL COMPOSITION: There are scattered areas of fibroglandular density. FINDINGS: Scattered bilateral benign calcifications are again noted. There is no evidence of suspicio us mass, calcification, or architectural distortion to suggest malignancy in either breast. There has been no suspicious interval change. IMPRESSION: 1. No mammographic evidence of malignancy. 2. Recommend routine screening mammography in one year. BI-RADS Category 2: Benign finding(s). Reviewed, dictated and finalized at location A.
== END 2021-08-12 12:48 | disposition home or self-care (01) ==
LOC: ANHIMG 12:51
PROVIDERS: PCP Family Medicine; Visit Provider Nurse Practitioner Family
DX: Z12.31 Encounter for screening mammogram for malignant neoplasm of breast (principal)
CPT/HCPCS: 77063; 77065; 77067

== ENCOUNTER 2021-11-26 12:41 | Inpatient (IN) | payer MEDICARE, MEDICAID, SELFPAY ==
[2021-11-26] VITALS (39 sets, daily range): BP systolic 76–175; BP diastolic 47–128; PULSE 48–97; RESP 11–28; TEMP 36–36.9; O2SAT 93–97; BMI 40.2
--- NOTE | ~2021-11-26 | XR_ITS ---
EXAMINATION: XR chest 1V portable EXAM DATE: 11/26/2021 16:00 INDICATION: dyspnea, positive covid 11/20 . TECHNIQUE: Portable AP frontal chest x-ray was obtained. Comparison is made to prior examination from 11/22/2020. FINDINGS: No confluent consolidation, pneumothorax or pleural effusion suspected. The cardiomediastin al silhouette is prominent but magnified on this AP technique. There are mild bony degenerative allen es. IMPRESSION: No confluent consolidation. Reviewed, dictated and finalized at location B. [employer] IMPRESSION: No confluent consolidation.
[2021-11-26 14:37] LABS: Basophils Absolute Auto 0.1 K/mm3 (0.0-0.1); Basophils Percent Auto 0.4 % (0.2-1.2); Eosinophils Absolute Auto 0.2 K/mm3 (0-0.3); Eosinophils Percent Auto 0.8 % (0-4.4); Hematocrit 39.2 % (37.0-47.0); Hemoglobin 12.5 g/dL (12.0-15.0); Immature Granulocyte Absolute 0.84 K/mm3 (0.00-0.031); Immature Granulocyte Percent A 4.3 % (0-0.5); Lymphocytes Absolute Auto 3.29 K/mm3 (0.9-3.2); Lymphocytes Percent Auto 16.9 % (18.3-44.2); Mean Corpuscular HGB Conc 31.9 g/dl (32-36); Mean Platelet Volume 9.8 fl (7.4-10.4); Monocytes Absolute Auto 1.9 K/mm3 (0.1-0.6); Monocytes Percent Auto 9.5 % (2.6-8.5); Neutrophils Absolute Auto 13.3 K/mm3 (1.3-6.7); Neutrophils Percent Auto 68.1 % (45.5-73.1); Platelet Count Result 371 k/mm3 (150-375); Red Blood Count 4.31 M/mm3 (4.2-5.4); Red Cell Distribution Width 12.8 % (11.5-14.5); White Blood Count 19.5 K/mm3 (4.5-10.0)
[2021-11-26 14:40] LABS: Lactic Acid Reflex 1.2 mmol/L (0.7-2.1)
[2021-11-26 14:43] LABS: Alanine Aminotransferase 34 U/L (4-35); Albumin Level 3.9 g/dL (3.5-5.1); Alkaline Phosphatase 70 U/L (38-126); Anion Gap 7 mmol/L (8-16); Aspartate Amino Transferase 45 U/L (14-36); Bilirubin,Total 0.4 mg/dL (0.2-1.3); Blood Urea Nitrogen 26 mg/dL (7-17); Calcium 9.5 mg/dL (8.4-10.2); Carbon Dioxide 29 mmol/L (22-30); Chloride 102 mmol/L (98-107); Estimated CRCL calculation 38 ml/min; Estimated Glomerular Filt Rate 40; Glucose 78 mg/dL (65-110); Potassium 3.6 mmol/L (3.4-5.0); Sodium 138 mmol/L (137-145)
[2021-11-26] MEDS: ALBUTEROL SULFATE (*SP) INHALER 2 PUFF INHALATION (14:51)
[2021-11-26 14:58] LABS: NT Pro B Type Natriuretic Pept 1530 pg/mL (5-100); Troponin I < 0.012 ng/mL (0.000-0.034)
[2021-11-26 15:35] LABS: Add Urine Microscopic? YES; Appearance Urine Clear (Clear); Bilirubin Urine Negative (Negative); Blood Urine Negative (Negative); Color Urine Yellow (Yellow); Glucose Urine UA Negative (Negative); Ketones Urine Negative (Negative); Leukocyte Esterase Ur Trace LEU/UL (Negative); Mucus Urine Rare /lpf; Nitrate Urine Negative (Negative); Protein Urine 1+ mg/dL (Negative); RBC Urine 0-2 /hpf (0-2); Specific Grav Ur 1.019 (1.001-1.035); Squamous Epithelial Cell Urine Rare /hpf (Few)
--- NOTE | 2021-11-26 15:54 | ED.GENADULT ---
HPI - General Adult General Chief complaint: Shortness of Breath/Dyspnea Stated complaint: cough, sob, COVID Time Seen by Provider: 11/26/21 13:53 History of Present Illness HPI narrative: Patient is a 76-year-old female who presents the emergency department with chief complaint of shortness of breath. Patient reports she was diagnosed with COVID-19 on 11/20/2021. The patient states that she has been having progressively more short of breath has been coughing and has not had any improvement in her symptoms. The patient states that she gets very short of breath with any form of exertion reports that even resting her respiratory rate is high the patient reports that she has been saturating in the low 90s. Patient reports that she feels as though she may be developing pneumonia. Related Data Home Medications Medication Instructions Recorded Confirmed levothyroxine 112 mcg tablet 112 mcg PO DAILY 11/19/19 04/15/21 atorvastatin 40 mg tablet 40 mg PO DAILY 11/20/19 04/15/21 hydrocodone 10 mg-acetaminophen 1 tablet PO Q8H PRN 11/20/19 04/15/21 325 mg tablet ferrous sulfate 325 mg (65 mg 325 mg PO BID 02/27/21 04/15/21 iron) tablet hydralazine 25 mg tablet 50 mg PO TID tablet 02/27/21 04/15/21 oxybutynin chloride 10 mg 10 mg PO DAILY 02/27/21 04/15/21 tablet,extended release 24 hr trazodone 100 mg tablet 100 mg PO HS tablet 02/27/21 04/15/21 fluoxetine 20 mg PO DAILY 04/02/21 04/15/21 fluoxetine 60 mg PO DAILY 04/02/21 04/15/21 Allergies Allergy/AdvReac Type Severity Reaction Status Date / Time NILTON Inhibitors Allergy Unknown Angioedema Verified 07/27/21 13:29 Review of Systems Review of Systems: A 10 system review of systems was completed on the patient and is negative except for what is stated in the HPI. Nursing and ancillary documentation was reviewed. [facility] Past Medical History Medical History (Updated 11/26/21 @ 16:20 by Herman Nunez MD) Anxiety Arthritis Asthma Bronchitis Carpal tunnel syndrome CHF (congestive heart failure) Chronic obstructive pulmonary disease Depression Diabetes GERD (gastroesophageal reflux disease) Hiatal hernia HLD (hyperlipidemia) HTN (hypertension) Hypothyroidism Kidney stones NICOLA (obstructive sleep apnea) Pneumonia Renal disease RLS (restless legs syndrome) Surgical History Surgical History History of carpal tunnel release Hx of cholecystectomy Hx of elbow surgery bilateral ulnar release Hx of hysterectomy Hx of spinal surgery Family History Family History Father Hypertension Family history of malignant neoplasm of brain Family history of heart disease in male family member before age 55 Mother Family history of diabetes mellitus in first degree relative Family history of heart disease in male family member before age 55 Social History Social History Smoking packs per day: 1 Smoking cigarettes per day: 20.0 Years smoked: 50 Smoking pack-years: 50.00 Smoking status: Former smoker Tobacco type: cigarettes Alcohol intake: never Substance use: never Gender identity (if verbalized by the patient): Female 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: No Exam Narrative: GENERAL: Well-appearing, well-nourished, and in no acute distress. HEAD: Normocephalic, atraumatic. EYES: PERRLA and EOMI. ENT: Nares clear, no rhinorrhea or epistaxis. Mucous membranes moist. NECK: Supple. CHEST: Clear to auscultation. No respiratory distress. HEART: Regular rate and rhythm. No murmur heard. Normal peripheral pulses. ABDOMEN: Soft, nontender, nondistended, normal active bowel sounds. EXTREMITIES: Normal range of motion. No edema. SKIN: Warm, dry, no rash. NEURO: No focal deficits. Alert and oriented x3. PSYCH: Normal mood and affect. Course Vital Signs Vital signs:
[2021-11-26 17:12] LABS: SARS-CoV-2 RNA PCR Positive
--- NOTE | 2021-11-26 20:11 | PM.IMHP ---
H&P: HPI History of Present Illness Date/Time: 11/26/21 20:11 Chief Complaint: Shortness of breath Narrative: This is a 76-year-old female with past medical history significant for dyslipidemia, hypertension, over reactive bladder, Oz back, congestive heart failure, chronic obstructive pulmonary disease, gastroesophageal reflux disease, obstructive sleep apnea, restless leg syndrome. Patient presented to the emergency room after she had tested positive for COVID at outside hospital she is was sent home but had increasingly worsening in shortness of breath, productive cough of copious yellowish sputum, fevers, chills, body aches and pains, fatigue, generalized malaise. Preliminary workup in emergency room was significant for CBC with a WBC of 19,000, BUN 26 creatinine 1.3 brain natriuretic peptide 1530 patient tested positive for COVID as well a chest x-ray was reported as no confluent consolidation. Patient has been admitted for further evaluation ,management and treatment. Review of Systems Review of Systems: Shortness of breath, cough productive of copious amount of yellow to greenish secretions, body aches and pains, fevers chills, fatigue. Constitutional: Constitutional: Reports chills, Reports fatigue, Reports fever(s), Reports lethargy, Reports malaise, Denies night sweats, Reports poor appetite and Reports weakness Eyes: Eyes: Denies change in vision ENT: Denies dysphagia, Denies nasal congestion, Denies nasal discharge, Denies nasal obstruction and Denies odynophagia Cardiovascular: Cardiovascular: Denies pedal edema, Denies leg edema, Denies lightheadedness, Denies radiating jaw, neck or arm pain, Denies palpitations, Denies dyspnea on exertion and Denies orthopnea Respiratory: Respiratory: Reports change in phlegm color, Reports cough, Reports excessive phlegm production and Reports dyspnea Gastrointestinal: Gastrointestinal: Denies abdominal pain, Denies dyspepsia, Denies heartburn, Denies diarrhea, Denies nausea and Denies vomiting Genitourinary: Genitourinary: Denies dysuria Musculoskeletal: Musculoskeletal: Reports myalgias Integumentary/Breasts: Skin/Breast: Denies rash Neurologic: Denies focal weakness and Denies Sensory deficit (Neuro) Psychiatric: Psychiatric: Reports no additional psychiatric complaints and Reports as per HPI Endocrine: Endocrine: Denies cold intolerance, Denies heat intolerance, Denies polyphagia, Denies polydipsia, Denies polyuria and Denies palpitations Hematologic/Lymphatic: Hematologic/Lymphatic: Reports no additional hematologic/lymphatic complaints and Reports as per HPI Allergic/Immunologic: Allergic/Immunologic: Reports no additional allergic/immunologic complaints and Reports as per HPI [facility] Past Medical History Medical History (Updated 11/27/21 @ 01:03 by Cachorro Newman MD) Anxiety Arthritis Asthma Bronchitis Carpal tunnel syndrome CHF (congestive heart failure) Chronic obstructive pulmonary disease Depression Diabetes GERD (gastroesophageal reflux disease) Hiatal hernia HLD (hyperlipidemia) HTN (hypertension) Hypothyroidism Kidney stones NICOLA (obstructive sleep apnea) Pneumonia Renal disease RLS (restless legs syndrome) Surgical History Surgical History History of carpal tunnel release Hx of cholecystectomy Hx of elbow surgery bilateral ulnar release Hx of hysterectomy Hx of spinal surgery Family History Family History Father Hypertension Family history of malignant neoplasm of brain Family history of heart disease in male family member before age 55 Mother Family history of diabetes mellitus in first degree relative Family history of heart disease in male family member before age 55 Social History Social History Smoking packs per day: 1 Smoking cigarettes per day: 20.0
[2021-11-26] MEDS: IPRATROPIUM BR 0.02% INH SOLN 0.5 MG/2.5 ML VIAL INHALATION (20:52)
[2021-11-26] MEDS: ALBUTEROL SULFATE NEB 2.5 MG/0.5 ML INH 5 MG INHALATION (20:52)
[2021-11-27] VITALS (13 sets, daily range): BP systolic 121–149; BP diastolic 48–72; PULSE 61–82; RESP 16–26; TEMP 35.9–36.5; O2SAT 94–97; BMI 40.2
[2021-11-27] MEDS: ALBUTEROL SULFATE NEB 2.5 MG/0.5 ML INH 5 MG INHALATION ×4 (02:07→19:29)
[2021-11-27] MEDS: IPRATROPIUM BR 0.02% INH SOLN 0.5 MG/2.5 ML VIAL INHALATION ×4 (02:07→19:30)
[2021-11-27 02:49] LABS: Alanine Aminotransferase 30 U/L (4-35); Estimated CRCL calculation 26 ml/min; Estimated Glomerular Filt Rate 26; Prothrombin Time 13.2 Seconds (11.1-14.7)
[2021-11-27] MEDS: REMDESIVIR 200 MG/NS 250 ML 200 MG/250 ML BAG 250 MG IVPB (04:29)
--- NOTE | 2021-11-27 04:32 | PC.NURSE ---
This patient, Jacy Mills, was admitted to 3 [facility] Surg Room 328-01. Patient/family oriented to hospital policies and general routines including ID bracelet, bed and alarms, visiting hours, pain management, procedures, bathroom and other care routines, personal items, smoking policy, room service/diet, and visiting hours. Information on how to activate the Rapid Response Team has been discussed. Patient/Family are encouraged to report perceived risks to care and to ask questions if they do not understand what they are told or what they should do.
[2021-11-27] MEDS: ACETAMINOPHEN 325 MG TABLET 650 MG PO (04:51)
--- NOTE | 2021-11-27 12:39 | PM.IMPN ---
Progress Note: A&P Assessment and Plan (1) 2019 novel coronavirus-infected pneumonia (NCIP): Code(s): U07.1 - COVID-19; J12.82 - Pneumonia due to coronavirus disease 2019 Status: Acute Assessment and Plan: Admit to regular medical floor Continue REMDESIVIR AND DEXAMETHASONE Rocephin and Zithromax added for antibacterial coverage Follow Blood cultures Monitor Cr and liver enzymes (2) NICOLA on CPAP: Code(s): G47.33 - Obstructive sleep apnea (adult) (pediatric); Z99.89 - Dependence on other enabling machines and devices Status: Acute Assessment and Plan: CPAP at nighttime (3) Tobacco dependency: Code(s): F17.200 - Nicotine dependence, unspecified, uncomplicated Status: Acute Assessment and Plan: Nicotine patch as needed (4) Chronic obstructive pulmonary disease: Qualifiers: COPD type: unspecified COPD Qualified Code(s): J44.9 - Chronic obstructive pulmonary disease, unspecified Code(s): J44.9 - Chronic obstructive pulmonary disease, unspecified Status: Acute Assessment and Plan: Breathing treatments (5) GERD (gastroesophageal reflux disease): Code(s): K21.9 - Gastro-esophageal reflux disease without esophagitis Status: Acute Assessment and Plan: PPI as needed (6) HTN (hypertension): Code(s): I10 - Essential (primary) hypertension Status: Acute Assessment and Plan: Resume home meds Continue to monitor Subjective Date/time seen: 11/27/21 12:39 Interval history: Pt seen and evaluated; labs, vs, diagnostic results reviewed; pt continues with HOWELL Review of Systems Review of Systems: All systems reviewed & are unremarkable except as noted in HPI and below Objective Data Vital Signs Vital Signs: Vital Signs - 24 hr 11/26/21 12:45 11/26/21 13:50 11/26/21 14:00 Temperature 36.1 C L 36.4 C Pulse Rate 97 52 L 55 L Respiratory Rate 28 H 13 24 H Blood Pressure 148/47 H 159/53 H Pulse Oximetry 93 96 93 11/26/21 14:06 11/26/21 14:15 11/26/21 14:17 Temperature Pulse Rate 52 L 52 L 50 L Respiratory Rate 15 16 16 Blood Pressure 88/61 L Pulse Oximetry 97 11/26/21 14:30 11/26/21 14:45 11/26/21 14:47 Temperature Pulse Rate 54 L 56 L 54 L Respiratory Rate 15 14 13 Blood Pressure 76/61 L Pulse Oximetry 97 11/26/21 15:00 11/26/21 15:02 11/26/21 15:37 Temperature Pulse Rate 55 L 53 L 51 L Respiratory Rate 17 22 H 11 L Blood Pressure 175/128 H Pulse Oximetry 96 96 11/26/21 15:45 11/26/21 16:00 11/26/21 16:15 Temperature Pulse Rate 53 L 53 L 58 L Respiratory Rate 20 12 21 H Blood Pressure Pulse Oximetry 94 11/26/21 16:30 11/26/21 16:45 11/26/21 17:00 Temperature Pulse Rate 52 L 48 L 56 L Respiratory Rate 17 16 28 H Blood Pressure Pulse Oximetry 11/26/21 17:16 11/26/21 17:49 11/26/21 18:00 Temperature Pulse Rate 53 L 62 64 Respiratory Rate 15 19 24 H Blood Pressure Pulse Oximetry 11/26/21 18:15 11/26/21 18:30 11/26/21 18:45 Temperature Pulse Rate 70 70 56 L Respiratory Rate 21 H 21 H 14 Blood Pressure Pulse Oximetry 11/26/21 19:00 11/26/21 19:15 11/26/21 19:30 Temperature Pulse Rate 63 70 72 Respiratory Rate 18 21 H 22 H Blood Pressure Pulse Oximetry 11/26/21 19:45 11/26/21 20:29 11/26/21 20:30 Temperature Pulse Rate 58 L 62 60 Respiratory Rate 17 16 11 L Blood Pressure Pulse Oximetry 11/26/21 20:53 11/26/21 20:57 11/26/21 21:18 Temperature Pulse Rate 67 69 61 Respiratory Rate 17 19 14 Blood Pressure Pulse Oximetry 11/26/21 21:38 11/26/21 21:45 11/26/21 22:04 Temperature Pulse Rate 64 62 61 Respiratory Rate 26 H 22 H 19 Blood Pressure Pulse Oximetry 11/26/21 22:15 11/26/21 22:25 11/26/21 23:04 Temperature 36.9 C 36.0 C L Pulse Rate 68 82 61 Respiratory Rate 21 H 24 H 17 Blood Pressure 126/80 121/55 L Pulse Oximetr
[2021-11-27] MEDS: hydrALAZINE HCL 25 MG TABLET 50 MG PO (17:06)
[2021-11-27] MEDS: VENLAFAXINE HCL XR 75 MG CAP.ER.24H PO (17:06)
[2021-11-27] MEDS: traZODone HCL 50 MG TABLET 100 MG PO (22:41)
[2021-11-27] MEDS: REMDESIVIR 100 MG/NS 250 ML 100 MG/250 ML BAG 250 MG IVPB (22:41)
[2021-11-28] VITALS (9 sets, daily range): BP systolic 113–156; BP diastolic 44–82; PULSE 59–89; RESP 14–20; TEMP 36.1–37.1; O2SAT 93–98
[2021-11-28] MEDS: ALBUTEROL SULFATE NEB 2.5 MG/0.5 ML INH 5 MG INHALATION ×3 (02:03→14:35)
[2021-11-28] MEDS: IPRATROPIUM BR 0.02% INH SOLN 0.5 MG/2.5 ML VIAL INHALATION ×3 (02:03→14:35)
[2021-11-28] MEDS: LEVOTHYROXINE SODIUM 88 MCG TABLET PO (05:40)
[2021-11-28 07:06] LABS: Alanine Aminotransferase 23 U/L (4-35); Estimated CRCL calculation 31 ml/min; Estimated Glomerular Filt Rate 32
[2021-11-28 07:08] LABS: INR 1.1; Prothrombin Time 13.8 Seconds (11.1-14.7)
[2021-11-28] MEDS: hydrALAZINE HCL 25 MG TABLET 50 MG PO ×3 (08:41→17:09)
[2021-11-28] MEDS: ROSUVASTATIN 10 MG TABLET 40 MG PO (08:41)
[2021-11-28] MEDS: VENLAFAXINE HCL XR 75 MG CAP.ER.24H PO ×2 (08:41→17:09)
--- NOTE | 2021-11-28 11:08 | PM.IMPN ---
Progress Note: A&P Assessment and Plan (1) 2019 novel coronavirus-infected pneumonia (NCIP): Code(s): U07.1 - COVID-19; J12.82 - Pneumonia due to coronavirus disease 2019 Status: Acute Assessment and Plan: Admit to regular medical floor Continue REMDESIVIR AND DEXAMETHASONE Rocephin and Zithromax added for antibacterial coverage Follow Blood cultures Monitor Cr and liver enzymes (2) NICOLA on CPAP: Code(s): G47.33 - Obstructive sleep apnea (adult) (pediatric); Z99.89 - Dependence on other enabling machines and devices Status: Acute Assessment and Plan: CPAP at nighttime (3) Tobacco dependency: Code(s): F17.200 - Nicotine dependence, unspecified, uncomplicated Status: Acute Assessment and Plan: Nicotine patch as needed (4) Chronic obstructive pulmonary disease: Qualifiers: COPD type: unspecified COPD Qualified Code(s): J44.9 - Chronic obstructive pulmonary disease, unspecified Code(s): J44.9 - Chronic obstructive pulmonary disease, unspecified Status: Acute Assessment and Plan: Breathing treatments (5) GERD (gastroesophageal reflux disease): Code(s): K21.9 - Gastro-esophageal reflux disease without esophagitis Status: Acute Assessment and Plan: PPI as needed (6) HTN (hypertension): Code(s): I10 - Essential (primary) hypertension Status: Acute Assessment and Plan: Resume home meds Continue to monitor (7) Constipation: Code(s): K59.00 - Constipation, unspecified Status: Acute Assessment and Plan: No BM for several days Stool softeners initiated Supportive care Monitor Subjective Date/time seen: 11/28/21 11:08 Interval history: 11/27/2021: Pt seen and evaluated; labs, vs, diagnostic results reviewed; pt continues with HOWELL : Pt reports increased SOB, still on RA with congestion; pt reports constipation Review of Systems Review of Systems: All systems reviewed & are unremarkable except as noted in HPI and below Exam Narrative: GENERAL: NAD. HEENT:: Normocephalic, atraumatic. EOMI. Mucous membranes moist. Supple. No JVD. RESPIRATORY:: No respiratory distress. No use of accessory muscles. HEART: Regular rate and rhythm. Normal peripheral pulses. ABDOMEN: Soft, nontender, nondistended, normal active bowel sounds. EXTREMITIES: Normal range of motion. No edema, clubbing, or cyanosis SKIN: Warm, dry, no rash. NEURO: No focal deficits. Alert and oriented x3. PSYCH: Normal mood and affect. Objective Data Vital Signs Vital Signs: Vital Signs - 24 hr 11/27/21 12:00 11/27/21 13:30 11/27/21 13:43 Temperature 36.5 C Pulse Rate 65 64 66 Respiratory Rate 18 22 H 22 H Blood Pressure 147/53 H Pulse Oximetry 94 11/27/21 16:00 11/27/21 19:28 11/27/21 20:00 Temperature 36.4 C L 36.0 C L Pulse Rate 68 64 79 Respiratory Rate 18 22 H 16 Blood Pressure 135/55 L 123/56 L Pulse Oximetry 96 96 11/28/21 00:00 11/28/21 02:02 11/28/21 04:00 Temperature 36.3 C L 36.1 C L Pulse Rate 64 72 59 L Respiratory Rate 18 20 18 Blood Pressure 132/44 L 150/65 H Pulse Oximetry 96 95 11/28/21 08:00 11/28/21 08:26 11/28/21 08:34 Temperature 36.4 C Pulse Rate 67 70 71 Respiratory Rate 16 20 20 Blood Pressure 156/82 H Pulse Oximetry 93 Intake/Output Intake/Output: Intake & Output 11/25/21 11/26/21 11/27/21 11/28/21 23:59 23:59 23:59 23:59 Intake Total 300 2310 640 Output Total 800 Balance 300 1510 640 Meds/Results Medications: Active Medications Generic Name Dose Route Start Last Admin Trade Name Jocy PRN Reason Stop Dose Admin Acetaminophen 650 mg 11/26/21 16:20 11/27/21 04:51 Acetaminophen 325 Mg Tablet PO 650 mg Q4H PRN Administration Mild Pain (1-3) or Fever Albuterol 5 mg 11/26/21 20:00 11/28/21 08:26 Albuterol Sulfate Neb 2.5 Mg/0.5 Ml Inh INHALATION 5 mg Q6HRT LATOYA Administration Hydr
[2021-11-28] MEDS: traZODone HCL 50 MG TABLET 100 MG PO (21:41)
[2021-11-28] MEDS: REMDESIVIR 100 MG/NS 250 ML 100 MG/250 ML BAG 250 MG IVPB (21:41)
[2021-11-29] VITALS (8 sets, daily range): BP systolic 106–143; BP diastolic 44–64; PULSE 65–86; RESP 14–16; TEMP 36–37.1; O2SAT 92–96
[2021-11-29] MEDS: ALBUTEROL SULFATE (*SP) INHALER 2 PUFF INHALATION ×4 (02:55→20:34)
[2021-11-29] MEDS: LEVOTHYROXINE SODIUM 88 MCG TABLET PO (06:28)
[2021-11-29] MEDS: ROSUVASTATIN 10 MG TABLET 40 MG PO (08:00)
[2021-11-29] MEDS: hydrALAZINE HCL 25 MG TABLET 50 MG PO ×3 (08:00→17:05)
[2021-11-29] MEDS: VENLAFAXINE HCL XR 75 MG CAP.ER.24H PO ×2 (08:01→17:06)
[2021-11-29 08:17] LABS: INR 1.2; Prothrombin Time 15.4 Seconds (11.1-14.7)
[2021-11-29 08:30] LABS: Alanine Aminotransferase 19 U/L (4-35); Estimated CRCL calculation 35 ml/min; Estimated Glomerular Filt Rate 37
--- NOTE | 2021-11-29 10:20 | PCRCNOTE ---
Window of time for administration has passed. See next scheduled administration.
--- NOTE | 2021-11-29 15:25 | PM.IMPN ---
Progress Note: A&P Assessment and Plan (1) 2019 novel coronavirus-infected pneumonia (NCIP): Code(s): U07.1 - COVID-19; J12.82 - Pneumonia due to coronavirus disease 2019 Status: Acute Assessment and Plan: Continue REMDESIVIR AND DEXAMETHASONE - last dose of IV Remdesivir is tomorrow. Rocephin and Zithromax added for antibacterial coverage Follow Blood cultures Monitor Cr and liver enzymes continues to be very short of breath with any activity. having a productive cough as well. ordered Mucinex to help with that. ordered a PT and OT evaluation, as well as a home oxygen study. significant dyspnea on exertion. She lives alone - wanted to stay with her 2 daughters in their children after discharge. None of the family have been vaccinated. not having any chest pain or pressure, N/V/D. (2) NICOLA on CPAP: Code(s): G47.33 - Obstructive sleep apnea (adult) (pediatric); Z99.89 - Dependence on other enabling machines and devices Status: Acute Assessment and Plan: CPAP at nighttime (3) Tobacco dependency: Code(s): F17.200 - Nicotine dependence, unspecified, uncomplicated Status: Acute Assessment and Plan: Nicotine patch as needed (4) Chronic obstructive pulmonary disease: Qualifiers: COPD type: unspecified COPD Qualified Code(s): J44.9 - Chronic obstructive pulmonary disease, unspecified Code(s): J44.9 - Chronic obstructive pulmonary disease, unspecified Status: Acute Assessment and Plan: albuterol inhaler Mucinex (5) GERD (gastroesophageal reflux disease): Code(s): K21.9 - Gastro-esophageal reflux disease without esophagitis Status: Acute Assessment and Plan: PPI as needed (6) HTN (hypertension): Code(s): I10 - Essential (primary) hypertension Status: Acute Assessment and Plan: Resume home meds Continue to monitor Chronic and controlled HR 66-89, BP 110/47 - 143/64 (7) Constipation: Code(s): K59.00 - Constipation, unspecified Status: Acute Assessment and Plan: No BM for several days Stool softeners initiated Supportive care Resolved Subjective Date/time seen: 11/29/21 15:25 Interval history: 11/27/2021: Pt seen and evaluated; labs, vs, diagnostic results reviewed; pt continues with HOWELL : Pt reports increased SOB, still on RA with congestion; pt reports constipation 11/29/2021: Jacy was feeling better today but continues to be very short of breath with any activity. She is having a productive cough as well. I have ordered Mucinex to help with that. I have ordered a PT and OT evaluation, as well as a home oxygen study. Her last dose of IV Remdesivir is tomorrow. She finds it difficult to walk to the bathroom without having to take a break and sit down assisted there, having significant dyspnea on exertion. She lives alone. She was inquiring whether she was still contagious , as she wanted to stay with her 2 daughters in their children after discharge. None of the family have been vaccinated for COVID. I informed her that she could still be contagious until at least the 06 of December. Her constipation has been relieved. She is not having any nausea or vomiting or diarrhea today. She is not having any chest pain or pressure. Review of Systems Review of Systems: All systems reviewed & are unremarkable except as noted in HPI and below Constitutional: Constitutional: Reports chills, Reports fatigue, Reports fever(s), Reports lethargy, Reports malaise, Denies night sweats, Reports poor appetite and Reports weakness Eyes: Eyes: Denies change in vision ENT: Denies dysphagia, Denies nasal congestion, Denies nasal discharge, Denies nasal obstruction and Denies odynophagia Cardiovascular: Cardiovascular: Denies pedal edema, Denies leg edema, Denies lightheadedness, Denies radiating jaw, neck or arm pain, Denies palpitations, Reports dyspnea, Denies dyspnea on exertion and Denie
[2021-11-29] MEDS: DOCUSATE SODIUM 100 MG CAPSULE PO (21:03)
[2021-11-29] MEDS: traZODone HCL 50 MG TABLET 100 MG PO (21:03)
[2021-11-29] MEDS: REMDESIVIR 100 MG/NS 250 ML 100 MG/250 ML BAG 250 MG IVPB (21:04)
[2021-11-30] VITALS (10 sets, daily range): BP systolic 116–129; BP diastolic 40–62; PULSE 58–80; RESP 16–20; TEMP 36.1–36.7; O2SAT 90–99
[2021-11-30] MEDS: ALBUTEROL SULFATE (*SP) INHALER 2 PUFF INHALATION ×2 (03:06→09:05)
[2021-11-30] MEDS: LEVOTHYROXINE SODIUM 88 MCG TABLET PO (06:21)
[2021-11-30 10:19] LABS: Basophils Percent Auto 0.4 % (0.2-1.2); Eosinophils Absolute Auto 0.3 K/mm3 (0-0.3); Eosinophils Percent Auto 3.5 % (0-4.4); Hematocrit 35.3 % (37.0-47.0); Immature Granulocyte Percent A 4.2 % (0-0.5); Lymphocytes Absolute Auto 1.82 K/mm3 (0.9-3.2); Mean Corpuscular HGB Conc 31.2 g/dl (32-36); Mean Corpuscular Hemoglobin 28.6 pg (26-34); Mean Corpuscular Volume 91.7 fl (80-100); Mean Platelet Volume 9.7 fl (7.4-10.4); Monocytes Absolute Auto 1.4 K/mm3 (0.1-0.6); Neutrophils Absolute Auto 5.6 K/mm3 (1.3-6.7); Neutrophils Percent Auto 57.9 % (45.5-73.1); Platelet Count Result 288 k/mm3 (150-375); Red Blood Count 3.85 M/mm3 (4.2-5.4); Red Cell Distribution Width 13.2 % (11.5-14.5); White Blood Count 9.6 K/mm3 (4.5-10.0)
[2021-11-30] MEDS: ROSUVASTATIN 10 MG TABLET 40 MG PO (10:21)
[2021-11-30] MEDS: DOCUSATE SODIUM 100 MG CAPSULE PO (10:22)
[2021-11-30] MEDS: VENLAFAXINE HCL XR 75 MG CAP.ER.24H PO (10:22)
[2021-11-30] MEDS: hydrALAZINE HCL 25 MG TABLET 50 MG PO ×2 (10:22→12:26)
[2021-11-30] MEDS: guaiFENesin 12 HR 600 MG TABCR 1200 MG PO (10:24)
[2021-11-30 10:32] LABS: Alanine Aminotransferase 18 U/L (4-35); Albumin Level 3.3 g/dL (3.5-5.1); Alkaline Phosphatase 57 U/L (38-126); Anion Gap 6 mmol/L (8-16); Aspartate Amino Transferase 25 U/L (14-36); Bilirubin,Total 0.4 mg/dL (0.2-1.3); Blood Urea Nitrogen 24 mg/dL (7-17); Calcium 8.4 mg/dL (8.4-10.2); Carbon Dioxide 28 mmol/L (22-30); Chloride 104 mmol/L (98-107); Estimated CRCL calculation 38 ml/min; Estimated Glomerular Filt Rate 40; Glucose 129 mg/dL (65-110); Potassium 3.6 mmol/L (3.4-5.0); Sodium 138 mmol/L (137-145)
--- NOTE | 2021-11-30 10:33 | PCRCNOTE ---
Home O2 oval completed. Patientdoes not require Home O2 RN notified.
--- NOTE | 2021-11-30 10:45 | PM.DS ---
DS: Admitting Diagnosis Discharge Date 11/30/21 1045 Admitting Diagnosis COVID-19 PNA DS: Discharge Diagnosis Discharge Diagnosis (1) 2019 novel coronavirus-infected pneumonia (NCIP): Code(s): U07.1 - COVID-19; J12.82 - Pneumonia due to coronavirus disease 2019 Status: Acute Assessment and Plan: Continue REMDESIVIR AND DEXAMETHASONE - last dose of IV Remdesivir is tomorrow. Rocephin and Zithromax added for antibacterial coverage Follow Blood cultures Monitor Cr and liver enzymes continues to be very short of breath with any activity. having a productive cough as well. ordered Mucinex to help with that. ordered a PT and OT evaluation, as well as a home oxygen study. significant dyspnea on exertion. She lives alone - wanted to stay with her 2 daughters in their children after discharge. None of the family have been vaccinated. not having any chest pain or pressure, N/V/D. (2) NICOLA on CPAP: Code(s): G47.33 - Obstructive sleep apnea (adult) (pediatric); Z99.89 - Dependence on other enabling machines and devices Status: Acute Assessment and Plan: CPAP at nighttime (3) Tobacco dependency: Code(s): F17.200 - Nicotine dependence, unspecified, uncomplicated Status: Acute Assessment and Plan: Nicotine patch as needed (4) Chronic obstructive pulmonary disease: Qualifiers: COPD type: unspecified COPD Qualified Code(s): J44.9 - Chronic obstructive pulmonary disease, unspecified Code(s): J44.9 - Chronic obstructive pulmonary disease, unspecified Status: Acute Assessment and Plan: albuterol inhaler Mucinex (5) GERD (gastroesophageal reflux disease): Code(s): K21.9 - Gastro-esophageal reflux disease without esophagitis Status: Acute Assessment and Plan: PPI as needed (6) HTN (hypertension): Code(s): I10 - Essential (primary) hypertension Status: Acute Assessment and Plan: Resume home meds Continue to monitor Chronic and controlled HR 66-89, BP 110/47 - 143/64 (7) Constipation: Code(s): K59.00 - Constipation, unspecified Status: Acute Assessment and Plan: No BM for several days Stool softeners initiated Supportive care Resolved DS: Summary Hospital Course Hospital Course: Patient is a 76 year old female with a past medical history of HTN, Hypothyroidism, HLD, and insomnia who presented to the ed with complaints of shortness of breath. Patient was diagnosed with COVID a few days prior to admission at an outside hospital. She was doing ok until she was increasing becoming short of breath at home. She came in because her saturation have remained in the low 90s. Since admission she was placed on remdesivir and Decadron. She has successfully completed five days. She has not needed any oxygen, and is able to get around on her own. Labs have been stable throughout her stay, and her BUN/Cr remain at her baseline. She is ready to go home, and has no complaints. She did have some crackles and wheezes which she cleared her throat and they went away. She feels that she is back to baseline. She denies chest pain, shortness of breath, nausea, vomiting, diarrhea, constipation, sweats, fevers, or chills. Status at Discharge Functional status at discharge: independent ambulation Overall status at discharge: patient is progressing back to baseline Time Spent with Patient Time attestation: Total time spent providing and/or coordinating discharge services: 43 minutes Time spent: Greater than 30 minutes Specific discharge activities: Diagnostic testing, chart review, developing a treatment plan, education, care coordination documentation, physical exam, result review Exam Const: General: cooperative, comfortable, no acute distress, well developed, alert and awake Nutritional Appearance: obese Orientation/consciousness: patient oriented x3 HENMT: Head: normal to inspection, normocephalic and atr
[2021-11-30 10:47] LABS: INR 1.3
== END 2021-11-30 14:25 | disposition home or self-care (01) | DRG 177 ==
LOC: ANHED 16:20 → ANH3MEDSUR 20:23
PROVIDERS: Internal Medicine; Nurse Practitioner; Admitting Provider Internal Medicine; Emergency Provider Emergency Medicine; PCP Family Medicine; Visit Provider Nurse Practitioner Adult Health
DX: U07.1 COVID-19 (principal); J12.82 Pneumonia due to coronavirus disease 2019; J44.0 Chronic obstructive pulmonary disease with (acute) lower respiratory infection; Z68.41 Body mass index [BMI] 40.0-44.9, adult; G47.33 Obstructive sleep apnea (adult) (pediatric); F17.210 Nicotine dependence, cigarettes, uncomplicated; K21.9 Gastro-esophageal reflux disease without esophagitis; I10 Essential (primary) hypertension; K59.00 Constipation, unspecified; E03.9 Hypothyroidism, unspecified; E78.5 Hyperlipidemia, unspecified; M19.90 Unspecified osteoarthritis, unspecified site; E11.9 Type 2 diabetes mellitus without complications; I11.0 Hypertensive heart disease with heart failure; I50.9 Heart failure, unspecified; K44.9 Diaphragmatic hernia without obstruction or gangrene; G25.81 Restless legs syndrome; Z90.49 Acquired absence of other specified parts of digestive tract; Z90.710 Acquired absence of both cervix and uterus; E66.9 Obesity, unspecified
CPT/HCPCS: 36415; 71045; 80053; 81001; 82565; 83605; 83880; 84460; 84484; 85025; 85610; 87040; 94618; 94640; 96365; 96367; 97161; 97165; 99285; A9270; C9803; G0378; J0456; J0696; U0003; U0005

== ENCOUNTER 2022-01-21 19:10 | Emergency (ER) | payer MEDICARE, MEDICAID, SELFPAY ==
--- NOTE | ~2022-01-21 | XR_ITS ---
XR ankle LT 2V DATE: 01/21/2022 19:37 INDICATION: Fall. Pain, swelling TECHNIQUE: AP and lateral views COMPARISON: None FINDINGS: There is mild lateral soft tissue swelling left ankle. No fracture or dislocation of the ankle or disruption of the ankle mortise. No periosteal reaction or bone destruction. Mild plantar calcaneal enthesopathy. IMPRESSION: Mild lateral soft tissue swelling Mild plantar calcaneal enthesopathy Reviewed, dictated and finalized at location A.
--- NOTE | ~2022-01-21 | XR_ITS ---
XR tibia fibula LT 2V DATE: 01/21/2022 20:11 INDICATION: Fall. Lower leg injury TECHNIQUE: Portable AP and crosstable lateral views of the lower leg COMPARISON: None FINDINGS: No fracture or dislocation, periosteal reaction or bone destruction. IMPRESSION: No evidence of fracture Reviewed, dictated and finalized at location A. IMPRESSION: No evidence of fracture
--- NOTE | ~2022-01-21 | XR_ITS ---
XR foot LT 2V DATE: 01/21/2022 19:37 INDICATION: Fall. Pain and swelling of left ankle and foot TECHNIQUE: AP and lateral views COMPARISON: None FINDINGS: There is plantar calcaneal enthesopathy. No fracture or dislocation, periosteal reaction or bone destruction. Mild osteoarthritis at the first metatarsophalangeal joint. IMPRESSION: Mild first metatarsophalangeal joint osteoarthritis Mild plantar calcaneal enthesopathy Reviewed, dictated and finalized at location A.
[2022-01-21 19:12] VITALS: BP 156/78; PULSE 85; RESP 18; TEMP 36.7; O2SAT 99
--- NOTE | 2022-01-21 19:50 | ED.LOWEXIN ---
HPI - Extremity Injury (Lower) General Chief Complaint: Extremity Injury, Lower Stated Complaint: fall/left foot swelling Time Seen by Provider: 01/21/22 19:28 Source: patient Mode of arrival: EMS Limitations: no limitations History of Present Illness HPI Narrative: 76-year-old female presents today with complaints of left lower leg pain that started around 530 this evening. Patient states around [birth year]29 she was going into her doctor's office and she tripped and fell. Patient saw her physician who then bandaged up the scrapes on her arms. Patient was able to walk out of physicians and walk home. Patient was ambulatory up until around 530 this evening. Patient denies any other trauma. Patient states the pain felt like a charley horse to her foot and the bottom of her foot. Patient currently with limited range of motion due to pain. Related Data Home Medications Medication Instructions Recorded Confirmed hydralazine 25 mg tablet 50 mg PO TID tablet 02/27/21 11/27/21 oxybutynin chloride 10 mg 10 mg PO DAILY 02/27/21 11/27/21 tablet,extended release 24 hr trazodone 100 mg tablet 100 mg PO HS tablet 02/27/21 11/27/21 Trintellix 5 mg PO DAILY 11/27/21 11/27/21 levothyroxine [Synthroid] 88 mcg PO DAILY 11/27/21 11/27/21 melatonin 5 mg PO HS PRN 11/27/21 11/27/21 rosuvastatin 40 mg PO DAILY 11/27/21 11/27/21 venlafaxine 75 mg PO BID 11/27/21 11/27/21 Allergies Allergy/AdvReac Type Severity Reaction Status Date / Time NILTON Inhibitors Allergy Unknown Angioedema Verified 01/21/22 19:21 Review of Systems Review of Systems: CONSTITUTIONAL: Denies fever, chills, or sweats. EYES: Denies visual changes, redness, or discharge. ENT: Denies rhinorrhea, congestion, sore throat, or otalgia. CARDIOVASCULAR: Denies chest pain, palpitations, or edema. RESPIRATORY: Denies cough or dyspnea. GASTROINTESTINAL: Denies abdominal pain, nausea, vomiting, or diarrhea. GENITOURINARY: Denies dysuria or hematuria. SKIN: Denies rash or itching. MUSCULOSKELETAL: Left lower leg, ankle, and foot pain. Denies back pain or myalgia. NEUROLOGIC: Denies headache, numbness, dizziness, or weakness. PSYCHIATRIC: Denies anxiety or depression. [facility] Past Medical History Medical History Anxiety Arthritis Asthma Bronchitis Carpal tunnel syndrome CHF (congestive heart failure) Chronic obstructive pulmonary disease Depression Diabetes GERD (gastroesophageal reflux disease) Hiatal hernia HLD (hyperlipidemia) HTN (hypertension) Hypothyroidism Kidney stones NICOLA (obstructive sleep apnea) Pneumonia Renal disease RLS (restless legs syndrome) Surgical History Surgical History History of carpal tunnel release Hx of cholecystectomy Hx of elbow surgery bilateral ulnar release Hx of hysterectomy Hx of spinal surgery Family History Family History Father Hypertension Family history of malignant neoplasm of brain Family history of heart disease in male family member before age 55 Mother Family history of diabetes mellitus in first degree relative Family history of heart disease in male family member before age 55 Social History Social History Smoking packs per day: 1 Smoking cigarettes per day: 20.0 Years smoked: 50 Smoking pack-years: 50.00 Smoking status: Former smoker Tobacco type: cigarettes Alcohol intake: never Substance use: never Substance use type: does not use Gender identity (if verbalized by the patient): Female 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: No Exam Narrative: GENERAL: Well-appearing, well-nourished, and in no acute distress. HEAD: Normocephalic, atraumatic. EYES: PERRLA and EOMI. ENT: Nares clear, no rhinorrhea or epistaxis. Mucous membranes moist. Oropharynx without tonsillar hypertrophy exudate o
[2022-01-21] MEDS: HYDROcodone/acetaminophen (*CRX) 10-325 MG TABLET 1 TAB PO (21:31)
[2022-01-21 22:36] VITALS: BP 164/81; PULSE 81; RESP 20; O2SAT 97
== END 2022-01-21 22:37 | disposition home or self-care (01) ==
PROVIDERS: Emergency Provider Nurse Practitioner Family; PCP Family Medicine
DX: S93.402A Sprain of unspecified ligament of left ankle, initial encounter (principal); J44.9 Chronic obstructive pulmonary disease, unspecified; I50.9 Heart failure, unspecified; I11.0 Hypertensive heart disease with heart failure; E11.9 Type 2 diabetes mellitus without complications; E78.5 Hyperlipidemia, unspecified; E03.9 Hypothyroidism, unspecified; N28.9 Disorder of kidney and ureter, unspecified; K21.9 Gastro-esophageal reflux disease without esophagitis; G25.81 Restless legs syndrome; G47.33 Obstructive sleep apnea (adult) (pediatric); M19.072 Primary osteoarthritis, left ankle and foot; F41.9 Anxiety disorder, unspecified; F32.A Depression, unspecified; Z87.442 Personal history of urinary calculi; Z87.01 Personal history of pneumonia (recurrent); Z87.891 Personal history of nicotine dependence; M77.9 Enthesopathy, unspecified; W01.0XXA Fall on same level from slipping, tripping and stumbling without subsequent striking against object, initial encounter
CPT/HCPCS: 73590; 73600; 73620; 99284; A9270

== ENCOUNTER 2022-07-15 13:52 | Emergency (ER) | payer MEDICARE, MEDICAID, SELFPAY ==
--- NOTE | 2022-07-15 13:55 | ED.URI ---
HPI - URI/Sore Throat General Stated Complaint: Sore Throat,White lines in Nail Bed Time Seen by Provider: 07/15/22 13:55 Source: patient Mode of arrival: ambulatory Limitations: no limitations History of Present Illness HPI Narrative: Ms. Mills is a 76-year-old female patient presenting to the clinic today with complaints of a sore throat and white lines in her nailbeds. She reports Related Data Home Medications Medication Instructions Recorded Confirmed hydralazine 25 mg tablet 50 mg PO TID 02/27/21 11/27/21 melatonin 5 mg tablet 5 mg PO HS PRN Insomnia 11/27/21 11/27/21 venlafaxine 75 mg capsule,extended 75 mg PO BID 11/27/21 11/27/21 release 24 hr vortioxetine 5 mg tablet 5 mg PO DAILY 11/27/21 11/27/21 (Trintellix) allopurinol 100 mg tablet 100 mg PO DIRECTED 07/15/22 07/15/22 atenolol 25 mg tablet 25 mg PO DIRECTED 07/15/22 07/15/22 atorvastatin 40 mg tablet 40 mg PO DAILY 07/15/22 07/15/22 esomeprazole magnesium 40 mg 40 mg PO DAILY 07/15/22 07/15/22 capsule,delayed release fluticasone furoate 100 2 inh inhalation DAILY 07/15/22 07/15/22 mcg-vilanterol 25 mcg/dose inhalation powder (Breo Ellipta) gabapentin 300 mg capsule 300 mg PO TID 07/15/22 07/15/22 hydrochlorothiazide 25 mg tablet 25 mg PO DAILY 07/15/22 07/15/22 hydrocodone 10 mg-acetaminophen 1 tablet PO DIRECTED 07/15/22 07/15/22 325 mg tablet levothyroxine 75 mcg tablet 75 mcg PO DAILY 07/15/22 07/15/22 (Unithroid) rosuvastatin 10 mg tablet 10 mg PO DAILY 07/15/22 07/15/22 sertraline 100 mg tablet 100 mg PO DAILY 07/15/22 07/15/22 trazodone 100 mg tablet 100 mg PO DAILY 07/15/22 07/15/22 Allergies Allergy/AdvReac Type Severity Reaction Status Date / Time NILTON Inhibitors Allergy Unknown Angioedema Verified 01/21/22 19:21 Review of Systems Review of Systems: Pertinent positives per HPI. Patient denies any fever, chills, rash, headache, visual changes, dizziness, cough, runny nose, sore throat, shortness of breath, chest pain, palpitations, nausea, vomiting, diarrhea, constipation, abdominal pain, or any urinary issues. [facility] Past Medical History Medical History Anxiety Arthritis Asthma Bronchitis Carpal tunnel syndrome CHF (congestive heart failure) Chronic obstructive pulmonary disease Depression Diabetes GERD (gastroesophageal reflux disease) Hiatal hernia HLD (hyperlipidemia) HTN (hypertension) Hypothyroidism Kidney stones NICOLA (obstructive sleep apnea) Pneumonia Renal disease RLS (restless legs syndrome) Surgical History Surgical History History of carpal tunnel release Hx of cholecystectomy Hx of elbow surgery bilateral ulnar release Hx of hysterectomy Hx of spinal surgery Family History Family History Father Hypertension Family history of malignant neoplasm of brain Family history of heart disease in male family member before age 55 Mother Family history of diabetes mellitus in first degree relative Family history of heart disease in male family member before age 55 Social History Social History Smoking packs per day: 1 Smoking cigarettes per day: 20.0 Years smoked: 50 Smoking pack-years: 50.00 Smoking status: Former smoker Tobacco type: cigarettes Alcohol intake: never Substance use: never Substance use type: does not use Gender identity (if verbalized by the patient): Female 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: No Comments At the time of my signature, I reviewed and agree with the nursing past medical, surgical, social, and family history. There is no relevant family history pertinent to the patient complaint. Exam Narrative: General: Well-developed, well nourished, in no apparent distress Head: Normocephalic, atraumatic Eyes:
[2022-07-15 14:02] VITALS: BP 146/80; PULSE 113; RESP 16; TEMP 37.7; O2SAT 98
== END 2022-07-15 14:33 | disposition home or self-care (01) ==
PROVIDERS: Emergency Provider Nurse Practitioner Family; PCP Family Medicine
DX: J02.9 Acute pharyngitis, unspecified (principal); R09.82 Postnasal drip; Z20.822 Contact with and (suspected) exposure to COVID-19; L60.4 Beau's lines; Z87.891 Personal history of nicotine dependence; M19.90 Unspecified osteoarthritis, unspecified site; I11.0 Hypertensive heart disease with heart failure; I50.9 Heart failure, unspecified; J44.9 Chronic obstructive pulmonary disease, unspecified; G25.81 Restless legs syndrome; E11.9 Type 2 diabetes mellitus without complications; K21.9 Gastro-esophageal reflux disease without esophagitis; E78.5 Hyperlipidemia, unspecified; E03.9 Hypothyroidism, unspecified; G47.33 Obstructive sleep apnea (adult) (pediatric)
CPT/HCPCS: 87081; 87426; 99213; C9803; G0463

== ENCOUNTER 2022-07-22 18:03 | Emergency (ER) | payer MEDICARE, MEDICAID, SELFPAY ==
[2022-07-22 18:08] VITALS: BP 137/98; PULSE 82; RESP 22; TEMP 37.1; O2SAT 99
== END 2022-07-22 22:00 | disposition left against medical advice (07) ==
LOC: ANHED 22:10
PROVIDERS: PCP Family Medicine
DX: R20.2 Paresthesia of skin (principal)
CPT/HCPCS: 99199

== ENCOUNTER 2022-09-20 10:40 | Observation (INO) | payer MEDICARE, MEDICAID, SELFPAY ==
[2022-09-20] VITALS (28 sets, daily range): BP systolic 98–129; BP diastolic 41–94; PULSE 68–91; RESP 13–30; TEMP 35.6–37.2; O2SAT 89–98
--- NOTE | ~2022-09-20 | XR_ITS ---
EXAMINATION: XR chest 1V portable DATE: 09/20/2022 12:15 INDICATION: Cough. TECHNIQUE: A single frontal view of the chest was obtained. COMPARISON: Chest single view 11/26/2021, CT abdomen and pelvis 11/22/2020 FINDINGS: There is mild elevation of right hemidiaphragm. No pleural effusion or pneumothorax. The he art size is normal. IMPRESSION: 1. No acute cardiopulmonary disease. Reviewed, dictated and finalized at location A. 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
--- NOTE | ~2022-09-20 | CT_ITS ---
EXAMINATION: CTA chest PE protocol DATE: 09/20/2022 16:31 INDICATION: Dyspnea for 2 days. Cough. TECHNIQUE: Computed tomography angiography (CTA) of the chest was performed with 200 CC Omnipaque 350 intravenous contrast timed to evaluate the pulmonary arteries. Coronal maximum intensity projection 3D-reconstructions were created by the technologist. Automated exposure control and iterative reconst ruction technique were employed. Exam dose: 872.01 mGy-cm total exam DLP. COMPARISON: 09/20/2022 portable AP chest 12/17/2019 CT lung screening FINDINGS: Contrast material reportedly leaked on the first injection and a second injection was perfo rmed. There is suboptimal contrast opacification of the pulmonary arteries. No apparent pulmonary emb olism is identified. Normal heart size. Prominent coronary calcifications. No pericardial or pleural effusion. There is thoracic aortic and great vessel atherosclerotic calcification. No thoracic aortic aneurysm or dissection is detected. Mild bilateral hilar and mediastinal lymph node prominence is likely reactive, with scattered bilater al patchy pulmonary infiltrates, with greatest involvement of the lower posterior right upper lobe an d bilateral lobes, right greater than left. Status post cholecystectomy. Small sliding hiatal hernia. Severe degenerative disease in lower cervical spine. No suspicious osteolytic or osteoblastic lesions are noted. IMPRESSION: Bilateral pneumonia involving particularly the posterior segment of the right upper lobe and bilateral lower lobes, with mild probable reactive hilar and mediastinal lymph node prominence Suboptimal opacification of the pulmonary arteries but no apparent pulmonary embolism Reviewed, dictated and finalized at Location A. Reviewed, dictated and finalized at location A. 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
--- NOTE | 2022-09-20 11:04 | ECG_ITS ---
Measurements Intervals [place] Rate: 79 P: 35 OR: 178 QRS: -38 QRSD: 102 T: 88 QT: 369 QTc: 424 Interpretive Statements SINUS RHYTHM FREQUENT ATRIAL PREMATURE COMPLEXES LEFT AXIS DEVIATION LEFT VENTRICULAR HYPERTROPHY AND ST-T CHANGE ANTEROSEPTAL INFARCT, AGE INDETERMINATE ABNORMAL ECG COMPARED TO ECG 11/22/2020 17:34:32 SINUS RHYTHM NOW PRESENT LEFT-AXIS DEVIATION NOW PRESENT Electronically Signed On 09-20-2022 11:43:27 DIRECTOR SPECIALTY by Peterson Roque D.O.
[2022-09-20 11:22] LABS: Basophils Absolute Auto 0.1 K/mm3 (0.0-0.1); Basophils Percent Auto 0.4 % (0.2-1.2); Eosinophils Percent Auto 0.2 % (0-4.4); Hemoglobin 11.2 g/dL (12.0-15.0); Immature Granulocyte Absolute 0.14 K/mm3 (0.00-0.031); Immature Granulocyte Percent A 0.8 % (0-0.5); Lymphocytes Absolute Auto 1.59 K/mm3 (0.9-3.2); Lymphocytes Percent Auto 8.5 % (18.3-44.2); Mean Corpuscular Hemoglobin 28.4 pg (26-34); Mean Corpuscular Volume 88.6 fl (80-100); Mean Platelet Volume 9.6 fl (7.4-10.4); Monocytes Absolute Auto 2.1 K/mm3 (0.1-0.6); Monocytes Percent Auto 11.2 % (2.6-8.5); Neutrophils Absolute Auto 14.7 K/mm3 (1.3-6.7); Neutrophils Percent Auto 78.9 % (45.5-73.1); Platelet Count Result 277 k/mm3 (150-375); Red Blood Count 3.95 M/mm3 (4.2-5.4); White Blood Count 18.6 K/mm3 (4.5-10.0)
[2022-09-20 11:29] LABS: Alanine Aminotransferase 18 U/L (6-35); Alkaline Phosphatase 71 U/L (38-126); Anion Gap 14 mmol/L (8-16); Aspartate Amino Transferase 26 U/L (14-36); Bilirubin,Total 1.1 mg/dL (0.2-1.3); Blood Urea Nitrogen 18 mg/dL (7-17); Calcium 8.9 mg/dL (8.4-10.2); Carbon Dioxide 23 mmol/L (22-30); Chloride 99 mmol/L (98-107); Estimated CRCL calculation 30 ml/min; Estimated Glomerular Filt Rate 31; Glucose 128 mg/dL (65-110); Potassium 3.6 mmol/L (3.4-5.0); Sodium 136 mmol/L (137-145)
--- NOTE | 2022-09-20 11:54 | ED.GENADULT ---
HPI - General Adult General Chief complaint: Weakness Stated complaint: cough Time Seen by Provider: 09/20/22 11:37 Source: RN notes reviewed History of Present Illness HPI narrative: Patient presents emergency department from home for cough. Patient states she had a cough for the past 3 days has been productive of yellow sputum. She states that with that she has been feeling mildly short of breath as well as generally weak. She denies any fevers or chills she denies any chest pain states she has been having some nausea with the symptoms but denies any vomiting or diarrhea. She denies any abdominal pain. Patient states she has not take any medication for the symptoms today Related Data Home Medications Medication Instructions Recorded Confirmed hydralazine 25 mg tablet 50 mg PO TID 02/27/21 07/15/22 melatonin 5 mg tablet 5 mg PO HS PRN Insomnia 11/27/21 07/15/22 venlafaxine 75 mg capsule,extended 75 mg PO BID 11/27/21 07/15/22 release 24 hr vortioxetine 5 mg tablet 5 mg PO DAILY 11/27/21 07/15/22 (Trintellix) allopurinol 100 mg tablet 100 mg PO DIRECTED 07/15/22 07/15/22 atenolol 25 mg tablet 25 mg PO DIRECTED 07/15/22 07/15/22 atorvastatin 40 mg tablet 40 mg PO DAILY 07/15/22 07/15/22 esomeprazole magnesium 40 mg 40 mg PO DAILY 07/15/22 07/15/22 capsule,delayed release fluticasone furoate 100 2 inh inhalation DAILY 07/15/22 07/15/22 mcg-vilanterol 25 mcg/dose inhalation powder (Breo Ellipta) gabapentin 300 mg capsule 300 mg PO TID 07/15/22 07/15/22 hydrochlorothiazide 25 mg tablet 25 mg PO DAILY 07/15/22 07/15/22 hydrocodone 10 mg-acetaminophen 1 tablet PO DIRECTED 07/15/22 07/15/22 325 mg tablet levothyroxine 75 mcg tablet 75 mcg PO DAILY 07/15/22 07/15/22 (Unithroid) rosuvastatin 10 mg tablet 10 mg PO DAILY 07/15/22 07/15/22 sertraline 100 mg tablet 100 mg PO DAILY 07/15/22 07/15/22 trazodone 100 mg tablet 100 mg PO DAILY 07/15/22 07/15/22 Allergies Allergy/AdvReac Type Severity Reaction Status Date / Time NILTON Inhibitors Allergy Unknown Angioedema Verified 01/21/22 19:21 Review of Systems Review of Systems: Gen.: Denies fevers or chills ENT: Denies congestion Respiratory: Denies shortness of breath reports cough CV: Denies chest pain or palpitations GI: Denies abdominal pain , emesis or diarrhea reports nausea Musculoskeletal: Denies back pain or muscle pain Neuro: Denies numbness, tingling, weakness or focal weakness Skin: Denies rash Except as documented, all other systems reviewed and negative [facility] Past Medical History Medical History Anxiety Arthritis Asthma Bronchitis Carpal tunnel syndrome CHF (congestive heart failure) Chronic obstructive pulmonary disease Depression Diabetes GERD (gastroesophageal reflux disease) Hiatal hernia HLD (hyperlipidemia) HTN (hypertension) Hypothyroidism Kidney stones NICOLA (obstructive sleep apnea) Pneumonia Renal disease RLS (restless legs syndrome) Surgical History Surgical History History of carpal tunnel release Hx of cholecystectomy Hx of elbow surgery bilateral ulnar release Hx of hysterectomy Hx of spinal surgery Family History Family History Father Hypertension Family history of malignant neoplasm of brain Family history of heart disease in male family member before age 55 Mother Family history of diabetes mellitus in first degree relative Family history of heart disease in male family member before age 55 Social History Social History Smoking packs per day: 1 Smoking cigarettes per day: 20.0 Years smoked: 50 Smoking pack-years: 50.00 Smoking status: Former smoker Tobacco type: cigarettes Alcohol intake: never Substance use: never Substance use type: does not use
[2022-09-20] MEDS: ALBUTEROL SULFATE NEB 2.5 MG/3 ML INH 5 MG INHALATION (12:00)
[2022-09-20] MEDS: IPRATROPIUM BR 0.02% INH SOLN 0.5 MG/2.5 ML VIAL INHALATION (12:01)
[2022-09-20 12:30] LABS: Lactic Acid Reflex 1.2 mmol/L (0.7-2.0)
[2022-09-20 12:57] LABS: Influenza A QL RT-PCR Negative (Negative); Influenza B QL RT-PCR Negative (Negative); SARS-CoV-2 RNA PCR Negative
[2022-09-20 13:55] LABS: Appearance Urine Slightly Cloudy (Clear); Bilirubin Urine 1+ (Negative); Blood Urine Negative (Negative); Color Urine Dark Yellow (Yellow); Glucose Urine UA Negative (Negative); Ketones Urine Trace mg/dL (Negative); Leukocyte Esterase Ur Trace LEU/UL (Negative); Nitrate Urine Negative (Negative); Protein Urine 3+ mg/dL (Negative); Urobilinogen Urine 0.2 mg/dL (<2.0); pH Urine 5.5 (5.0-9.0)
[2022-09-20 14:02] LABS: Mucus Urine Rare /lpf; Squamous Epithelial Cell Urine Few /hpf (Few); WBC Urine 51-75 /hpf
[2022-09-20 14:03] LABS: Add Urine Microscopic? YES
[2022-09-20] MEDS: methylPREDNISolone SOD SUCC 125 MG VIAL IV PUSH (14:37)
[2022-09-20] MEDS: SODIUM CHLORIDE 0.9% IV 1,000 ML 999 ML IV CONT (14:37)
--- NOTE | 2022-09-20 18:15 | PM.IMHP ---
H&P: HPI History of Present Illness Date/Time: 09/20/22 18:15 Chief Complaint: Cough and weakness. Narrative: This is a 77-year-old female former smoker with COPD, hypertension, hyperlipidemia, diabetes, untreated sleep apnea, chronic kidney disease, and other comorbidities who presented to the emergency department from home for evaluation of cough and weakness. She has not been feeling well for several days with sinus congestion, postnasal drip, hoarse voice, increasing shortness of breath on lesser and lesser exertion, nausea, vomiting, and a few loose stools. She was recently around some of her grandchildren who were sick though they have improved. She has not had a fever to her knowledge and she denies chills and sweats. Her diarrhea has improved. She has mild chest discomfort with cough but no over pleuritic pain. In the ED she was found to have white blood cell count of 18.3. She tested negative for COVID and influenza. Chest x-ray was normal a subsequent CTA of the chest showed evidence of bilateral pneumonia and she is being admitted in this setting for IV antibiotics. Review of Systems Review of Systems: Twelve systems were reviewed and are negative except for as per HPI. [facility] Past Medical History Medical History (Updated 09/20/22 @ 22:54 by Meme Haque PA-C) Anxiety Arthritis Asthma Bronchitis Carpal tunnel syndrome CHF (congestive heart failure) Chronic kidney disease Chronic obstructive pulmonary disease Depression Diabetes GERD (gastroesophageal reflux disease) Hiatal hernia HLD (hyperlipidemia) HTN (hypertension) Hypothyroidism Kidney stones NICOLA (obstructive sleep apnea) Pneumonia Renal disease RLS (restless legs syndrome) Surgical History Surgical History History of carpal tunnel release Hx of cholecystectomy Hx of elbow surgery bilateral ulnar release Hx of hysterectomy Hx of spinal surgery Family History Family History Father Hypertension Family history of malignant neoplasm of brain Family history of heart disease in male family member before age 55 Mother Family history of diabetes mellitus in first degree relative Family history of heart disease in male family member before age 55 Social History Social History (Updated 09/20/22 @ 22:51 by Meme Haque PA-C) Social History: Surrogate medical decision maker: Neena Hazel, granddaughter. Code status: Full code. Smoking packs per day: 1 Smoking cigarettes per day: 20.0 Years smoked: 50 Smoking pack-years: 50.00 Smoking status: Former smoker Alcohol intake: never Substance use: never Substance use type: does not use Lack of Transportation: No Lack of Food: Never True Current Housing: I Have Housing Concerned About Future Housing: No Difficulty Paying Gas/Electric Bills: No Difficulty Paying for Meds: No Currently Unemployed: No Education: Associate Degree Difficulty w/ Childcare or Family Care: No Additional living arrangements comments: The patient lives in her own home in [place]. Additional occupation/education comments: Retired [employer]. 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: No Meds Home Medications and Allergies Home Medications Medication Instructions Recorded Confirmed Type hydralazine 25 mg tablet 50 mg PO TID 02/27/21 09/20/22 History vortioxetine 5 mg tablet 20 mg PO DAILY 11/27/21 09/21/22 History (Trintellix) albuterol sulfate 90 mcg/actuation 2 puff inhalation Q6HRT #6.7 grams 11/30/21 09/21/22 Rx aerosol inhaler (Proventil HFA) gabapentin 300 mg capsule 300 mg PO TID 07/15/22 09/20/22 History hydrocodone 10 mg-acetaminophen 1 tablet PO Q8H PRN Pain 07/15/22 09/21/22 History 325 mg tablet levothyroxine 75 mcg tablet 88 mcg PO DAILY 07/15/22 09/21/22 History (Unithroid) trazodone 100 mg tablet 100 mg PO HS 07/15/22 09/21/22 Hist
--- NOTE | 2022-09-20 18:18 | ADMGEN ---
This patient, Jacy Mills, was admitted to 3 [facility] Surg Room 306-02. Patient/family oriented to hospital policies and general routines including ID bracelet, bed and alarms, visiting hours, pain management, procedures, bathroom and other care routines, personal items, smoking policy, room service/diet, and visiting hours. Information on how to activate the Rapid Response Team has been discussed. Patient/Family are encouraged to report perceived risks to care and to ask questions if they do not understand what they are told or what they should do.
--- NOTE | 2022-09-20 18:50 | PC.NURSE ---
UNABLE TO VERIFY HOME MED, PT NOT AWARE OF MEDICATIONS SHE TAKES. SEVERAL MEDS ON HOME MED LIST THAT SHE STATES SHE DOES NOT TAKE. WILL CALL PRIMARY MD IN AM
[2022-09-21] VITALS (10 sets, daily range): BP systolic 112–136; BP diastolic 43–50; PULSE 57–79; RESP 16–20; TEMP 36.1–36.3; O2SAT 94–96
[2022-09-21 06:27] LABS: Basophils Percent Auto 0.2 % (0.2-1.2); Hematocrit 33.7 % (37.0-47.0); Hemoglobin 10.9 g/dL (12.0-15.0); Immature Granulocyte Absolute 0.14 K/mm3 (0.00-0.031); Immature Granulocyte Percent A 0.9 % (0-0.5); Lymphocytes Absolute Auto 1.58 K/mm3 (0.9-3.2); Lymphocytes Percent Auto 10.3 % (18.3-44.2); Mean Corpuscular HGB Conc 32.3 g/dl (32-36); Mean Corpuscular Hemoglobin 28.3 pg (26-34); Mean Corpuscular Volume 87.5 fl (80-100); Mean Platelet Volume 10.1 fl (7.4-10.4); Monocytes Absolute Auto 0.6 K/mm3 (0.1-0.6); Neutrophils Percent Auto 84.6 % (45.5-73.1); Platelet Count Result 279 k/mm3 (150-375); Red Blood Count 3.85 M/mm3 (4.2-5.4); Red Cell Distribution Width 13.7 % (11.5-14.5); White Blood Count 15.4 K/mm3 (4.5-10.0)
[2022-09-21 06:43] LABS: Alanine Aminotransferase 19 U/L (6-35); Albumin Level 3.8 g/dL (3.5-5.1); Alkaline Phosphatase 76 U/L (38-126); Anion Gap 11 mmol/L (8-16); Aspartate Amino Transferase 27 U/L (14-36); Bilirubin,Total 0.5 mg/dL (0.2-1.3); Blood Urea Nitrogen 26 mg/dL (7-17); Calcium 8.7 mg/dL (8.4-10.2); Carbon Dioxide 24 mmol/L (22-30); Chloride 105 mmol/L (98-107); Estimated CRCL calculation 26 ml/min; Estimated Glomerular Filt Rate 27; Glucose 197 mg/dL (65-110); Magnesium 2.4 mg/dL (1.6-2.3); Potassium 4.2 mmol/L (3.4-5.0); Sodium 140 mmol/L (137-145)
[2022-09-21 07:33] LABS: Glucose Point of Care 180 mg/dl (65-105)
[2022-09-21 08:06] LABS: Hemoglobin A1C 5.7 % (<5.7)
[2022-09-21] MEDS: ALBUTEROL SULFATE NEB 2.5 MG/3 ML INH 5 MG INHALATION ×3 (08:08→20:35)
[2022-09-21] MEDS: IPRATROPIUM BR 0.02% INH SOLN 0.5 MG/2.5 ML VIAL INHALATION ×3 (08:08→20:35)
[2022-09-21] MEDS: predniSONE 20 MG TABLET 40 MG PO (08:42)
[2022-09-21] MEDS: guaiFENesin 12 HR 600 MG TABCR PO ×2 (08:42→20:12)
[2022-09-21] MEDS: ENOXAPARIN 40 MG/0.4 ML SYRINGE SUB-Q (08:43)
[2022-09-21] MEDS: GABAPENTIN 300 MG CAPSULE PO ×3 (10:11→17:28)
[2022-09-21] MEDS: amLODIPine BESYLATE 5 MG TABLET PO (10:11)
[2022-09-21] MEDS: hydrALAZINE HCL 25 MG TABLET 50 MG PO (10:11)
[2022-09-21 12:05] LABS: Glucose Point of Care 346 mg/dl (65-105)
[2022-09-21] MEDS: INSULIN ASPART (*BKC) 100 UNITS/ML SUB-Q ×2 (12:11→17:31)
--- NOTE | 2022-09-21 16:01 | PM.IMPN ---
Progress Note: A&P Assessment and Plan (1) Community acquired pneumonia: Code(s): J18.9 - Pneumonia, unspecified organism Status: Acute (2) COPD exacerbation: Code(s): J44.1 - Chronic obstructive pulmonary disease with (acute) exacerbation Status: Acute (3) Chronic kidney disease: Code(s): N18.9 - Chronic kidney disease, unspecified Status: Acute (4) HTN (hypertension): Code(s): I10 - Essential (primary) hypertension Status: Acute (5) Hypothyroid: Code(s): E03.9 - Hypothyroidism, unspecified Status: Acute Plan The patient presented to the emergency department today for evaluation of cough and weakness for the last several days. She has had URI symptoms as detailed in HPI and tested negative for influenza and COVID. CTA of the chest demonstrated no obvious pulmonary embolism but did note bilateral pneumonia. She has been started on ceftriaxone and azithromycin. Sputum to be sent for culture. Check urinary antigens. She is very wheezy on exam and was given a dose of Solu-Medrol in the emergency department. Will continue with a short burst of prednisone and scheduled nebulizers. Her anemia and kidney function are stable on review of previous labs. Initiate sliding scale insulin, Accu-Cheks, and hypoglycemic protocol. Blood pressures were reviewed and they are stable. Her home medications will be reviewed and resumed as appropriate. 09/21/2022 interval history 77-year-old female presented with complaint of cough and shortness of breath CTA of the chest showed bilateral pneumonia most likely community-acquired patient being treated with ceftriaxone and azithromycin, there is also concern for emphysema and patient is started on steroid and bronchodilator, patient states feeling much better compared to when she arrived not as short of breath, will continue present management taper steroid as symptoms improved and repeat chest x-ray in 2 days, will have a PT OT evaluate the patient and further recommendation to follow. Subjective Date/time seen: 09/21/22 16:01 HPI-Narrative: This is a 77-year-old female former smoker with COPD, hypertension, hyperlipidemia, diabetes, untreated sleep apnea, chronic kidney disease, and other comorbidities who presented to the emergency department from home for evaluation of cough and weakness.? She has not been feeling well for several days with sinus congestion, postnasal drip, hoarse voice, increasing shortness of breath on lesser and lesser exertion, nausea, vomiting, and a few loose stools. She was recently around some of her grandchildren who were sick though they have improved. She has not had a fever to her knowledge and she denies chills and sweats.? Her diarrhea has improved. She has mild chest discomfort with cough but no over pleuritic pain. In the ED she was found to have white blood cell count of 18.3.? She tested negative for COVID and influenza. Chest x-ray was normal a subsequent CTA of the chest showed evidence of bilateral pneumonia and she is being admitted in this setting for IV antibiotics. 09/21/2022 interval history 77-year-old female presented with complaint of cough and shortness of breath CTA of the chest showed bilateral pneumonia most likely community-acquired patient being treated with ceftriaxone and azithromycin, there is also concern for emphysema and patient is started on steroid and bronchodilator, patient states feeling much better compared to when she arrived not as short of breath, will continue present management taper steroid as symptoms improved and repeat chest x-ray in 2 days, will have a PT OT evaluate the patient and further recommendation to follow. Review of Systems Review of Systems: Twelve systems were reviewed and are negative except for as per HPI. Exam Narrative: moderately obese Patient is comfortable, NAD HEENT: eyes are clear and none icteric LUNGS: normal respiratory effort ABD: distended Low
--- NOTE | 2022-09-21 17:12 | PC.NURSE ---
HYDRALAZINE 50 MG PO HELD DUE TO BP 112/43. DR ROSENTHAL NOTIFIED.
[2022-09-21 17:18] LABS: Glucose Point of Care 245 mg/dl (65-105)
[2022-09-21 19:56] LABS: Glucose Point of Care 296 mg/dl (65-105)
[2022-09-21] MEDS: traZODone HCL 50 MG TABLET 100 MG PO (20:11)
[2022-09-22] MEDS: IPRATROPIUM BR 0.02% INH SOLN 0.5 MG/2.5 ML VIAL INHALATION ×2 (03:12→08:05)
[2022-09-22] MEDS: ALBUTEROL SULFATE NEB 2.5 MG/3 ML INH 5 MG INHALATION ×2 (03:12→08:05)
[2022-09-22 03:14] VITALS: PULSE 72; RESP 16
[2022-09-22 03:22] VITALS: PULSE 72; RESP 20
--- NOTE | 2022-09-22 05:55 | PC.NURSE ---
informed MD Mejia that pt took Unithroid 0.075mg from home, pt had in purse, pt re-educated about home medication protocol, pt continues to state doesn't take Synthroid 88mcg. will pass out to day nurse for day hospitalist to address with pt per Md Roman.
[2022-09-22 06:00] VITALS: BP 110/58; PULSE 76; RESP 14; TEMP 35.9; O2SAT 95
[2022-09-22 06:35] LABS: Hematocrit 32.3 % (37.0-47.0); Hemoglobin 10.3 g/dL (12.0-15.0); Mean Corpuscular HGB Conc 31.9 g/dl (32-36); Mean Corpuscular Hemoglobin 27.7 pg (26-34); Mean Corpuscular Volume 86.8 fl (80-100); Mean Platelet Volume 10.3 fl (7.4-10.4); Platelet Count Result 324 k/mm3 (150-375); Red Blood Count 3.72 M/mm3 (4.2-5.4); Red Cell Distribution Width 13.8 % (11.5-14.5); White Blood Count 19.4 K/mm3 (4.5-10.0)
[2022-09-22 07:53] LABS: Glucose Point of Care 133 mg/dl (65-105)
[2022-09-22 08:06] VITALS: PULSE 74; RESP 16
[2022-09-22] MEDS: amLODIPine BESYLATE 5 MG TABLET PO (08:40)
[2022-09-22] MEDS: GABAPENTIN 300 MG CAPSULE PO (08:40)
[2022-09-22] MEDS: predniSONE 20 MG TABLET 40 MG PO (08:40)
[2022-09-22] MEDS: guaiFENesin 12 HR 600 MG TABCR PO (08:40)
[2022-09-22] MEDS: ENOXAPARIN 40 MG/0.4 ML SYRINGE SUB-Q (08:41)
[2022-09-22] MEDS: hydrALAZINE HCL 25 MG TABLET 50 MG PO ×2 (08:41→11:30)
--- NOTE | 2022-09-22 10:25 | PCPTNOTE ---
Pt independent in room per RN. Pt declined need of therapy evaluation. Hospitalist aware of discharge. Care coordination aware of discharge of therapy orders.
[2022-09-22 11:06] VITALS: PULSE 78; RESP 18
--- NOTE | 2022-09-22 11:15 | PM.DS ---
DS: Admitting Diagnosis Discharge Date September 22, 2022 Admitting Diagnosis COPD exacerbation DS: Discharge Diagnosis Discharge Diagnosis (1) Community acquired pneumonia: Code(s): J18.9 - Pneumonia, unspecified organism Status: Acute (2) COPD exacerbation: Code(s): J44.1 - Chronic obstructive pulmonary disease with (acute) exacerbation Status: Acute (3) Chronic kidney disease: Code(s): N18.9 - Chronic kidney disease, unspecified Status: Acute (4) HTN (hypertension): Code(s): I10 - Essential (primary) hypertension Status: Acute (5) Hypothyroid: Code(s): E03.9 - Hypothyroidism, unspecified Status: Acute DS: Summary Hospital Course Hospital Course: patient was admitted for COPD exacerbation and possible pneumonia. Did well with antibiotics and prednisone. Not requiring oxygen. Patient can be discharged on antibiotics and steroids. Time Spent with Patient Time attestation: Total time spent providing and/or coordinating discharge services: Exam Narrative: moderately obese Patient is comfortable, NAD HEENT: eyes are clear and none icteric LUNGS: normal respiratory effort ABD: distended Lower extremities: no edema SKIN: nonjaundiced Neuro: grossly intact. DS: Data Data Completed and Pending Labs on day of discharge: Labs from last 24 hours 09/22/22 09/22/22 09/21/22 07:46 05:27 19:53 WBC 19.4 H RBC 3.72 L Hgb 10.3 L Hct 32.3 L MCV 86.8 MCH 27.7 MCHC 31.9 L RDW 13.8 Plt Count 324 MPV 10.3 POC Capillary Glucose 133 H 296 H 09/21/22 09/21/22 17:12 11:25 WBC RBC Hgb Hct MCV MCH MCHC RDW Plt Count MPV POC Capillary Glucose 245 H 346 H Preliminary micro results at discharge 09/20/22 12:09 Blood Culture - Preliminary Blood 09/20/22 12:10 Blood Culture - Preliminary Blood Discharge Plan Discharge Attending physician on discharge: Wilber Thompson Discharging Clinician: Wilber Thompson Patient Disposition: Home, Self-Care Activity: as tolerated Diet: as tolerated Patient Instructions: Antibiotic Form Stand Alone Forms: General Discharge Information Follow-up/Referrals: Jn Velásquez MD [Primary Care Provider] - Discharge Medications: New cefdinir 300 mg capsule 300 mg PO Q12H Qty: 8 0RF prednisone 50 mg tablet 50 mg PO DAILY Qty: 5 0RF Continued hydrocodone-acetaminophen 10-325 mg tablet 1 tablet PO Q8H PRN (Reason: Pain) levothyroxine [Unithroid] 75 mcg tablet 88 mcg PO DAILY trazodone 100 mg tablet 100 mg PO HS gabapentin 300 mg capsule 300 mg PO TID hydralazine 25 mg tablet 50 mg PO TID Rx Instructions: 50 mg PO TID Trintellix 5 mg Tablet 20 mg PO DAILY albuterol sulfate [Proventil HFA] 90 mcg/actuation Hfa Aerosol Inhaler 2 puff inhalation Q6HRT Qty: 6.7 0RF oxybutynin chloride 10 mg Tablet Extended Release 24hr 10 mg PO HS amlodipine 5 mg Tablet 5 mg PO DAILY ergocalciferol (vitamin D2) 1,250 mcg (50,000 unit) Capsule 1,250 mcg PO WEEKLY Rx Instructions: takes mondays Date of admission: 09/20/22 17:05 Primary Care Provider: Jn Velásquez Admitting Provider: Jose F Delgadillo Attending physician on admission: Jose F Delgadillo Condition: Stable
[2022-09-22 11:25] LABS: Glucose Point of Care 156 mg/dl (65-105)
[2022-09-22 11:31] VITALS: BP 124/79
[2022-09-22 21:34] LABS: Total Triiodothyronine (T3) 0.53 NG/ML (0.97-1.69)
[2022-09-23 20:48] LABS: Mycoplasma IgM Antibody Titer 185 U/mL (<770)
[2022-09-24 04:38] LABS: Legionella pneumophila Ag Ur Not Detected (Not Detected)
[2022-09-25 00:24] LABS: Pneumococcal Antigen Urine Not Detected (Not Detected)
== END 2022-09-22 12:47 | disposition home or self-care (01) ==
LOC: ANHED 17:30 → ANH3MEDSUR 09-21 15:20
PROVIDERS: Physician Assistant; Admitting Provider Family Medicine; Emergency Provider Emergency Medicine; PCP Family Medicine; Visit Provider Chiropractor
DX: J44.0 Chronic obstructive pulmonary disease with (acute) lower respiratory infection (principal); J18.9 Pneumonia, unspecified organism; N39.0 Urinary tract infection, site not specified; I13.0 Hypertensive heart and chronic kidney disease with heart failure and stage 1 through stage 4 chronic kidney disease, or unspecified chronic kidney disease; I50.9 Heart failure, unspecified; E11.22 Type 2 diabetes mellitus with diabetic chronic kidney disease; E11.9 Type 2 diabetes mellitus without complications; E78.5 Hyperlipidemia, unspecified; E03.9 Hypothyroidism, unspecified; G47.33 Obstructive sleep apnea (adult) (pediatric); G25.81 Restless legs syndrome; F41.9 Anxiety disorder, unspecified; F32.A Depression, unspecified; K21.9 Gastro-esophageal reflux disease without esophagitis; Z87.891 Personal history of nicotine dependence; Z79.51 Long term (current) use of inhaled steroids; Z20.822 Contact with and (suspected) exposure to COVID-19
CPT/HCPCS: 36415; 71045; 71275; 80053; 81001; 82948; 83036; 83605; 83735; 84439; 84443; 84480; 85025; 85027; 85380; 86738; 87040; 87086; 87088; 87449; 87636; 87899; 93005; 94640; 96361; 96365; 96375; 99285; A9270; G0378; J0456; J0696; J1650; J1815; J2930; J7030; J7512; Q9967

== ENCOUNTER 2022-11-01 10:18 | Outpatient (CLI) | payer MEDICARE, MEDICAID, SELFPAY ==
[2022-11-04 13:26] LABS: DHEA-Sulfate 8 mcg/dL (7-177)
== END 2022-11-01 10:19 | disposition home or self-care (01) ==
PROVIDERS: PCP Family Medicine; Visit Provider Internal Medicine Endocrinology, Diabetes & Metabolism
DX: E24.9 Cushing's syndrome, unspecified (principal)
CPT/HCPCS: 36415; 82533; 82627

== ENCOUNTER 2022-11-04 12:33 | Outpatient (CLI) | payer MEDICARE, MEDICAID, SELFPAY ==
[2022-11-11 11:47] LABS: Cortisol, Saliva 0.04 mcg/dL
[2022-11-11 11:47] LABS: Cortisol, Saliva <0.03 mcg/dL
[2022-11-12 21:47] LABS: Cortisol, Saliva <0.03 mcg/dL
== END 2022-11-04 12:34 | disposition home or self-care (01) ==
PROVIDERS: PCP Family Medicine; Visit Provider Internal Medicine Endocrinology, Diabetes & Metabolism
DX: E24.9 Cushing's syndrome, unspecified (principal)
CPT/HCPCS: 82530

== ENCOUNTER 2022-12-15 14:44 | Outpatient (CLI) | payer MEDICARE, MEDICAID, SELFPAY ==
--- NOTE | ~2022-12-15 | MM_ITS ---
EXAMINATION: MM screening portia BI w christina HISTORY: Screening mammogram TECHNIQUE: Craniocaudal and mediolateral oblique 3-D tomosynthesis images were obtained and synthetic 2-D images were generated. CAD analysis was submitted and interpreted. COMPARISON: 08/12/2021, 04/11/2019 bilateral screening mammogram examinations BREAST PARENCHYMAL COMPOSITION: There are scattered areas of fibroglandular density. FINDINGS: There are multiple bilateral benign calcifications. There is no evidence of suspicious mass , calcification, or architectural distortion to suggest malignancy in either breast. There has been n o suspicious interval change. IMPRESSION: 1. No mammographic evidence of malignancy. 2. Recommend routine screening mammography in one year. BI-RADS Category 2: Benign finding(s). Reviewed, dictated and finalized at location A. INE PRESSER
== END 2022-12-15 14:45 | disposition home or self-care (01) ==
LOC: ANHIMG 14:45
PROVIDERS: PCP Family Medicine; Visit Provider Family Medicine
DX: Z12.31 Encounter for screening mammogram for malignant neoplasm of breast (principal)
CPT/HCPCS: 77063; 77067

== ENCOUNTER 2023-01-01 08:49 | Outpatient (CLI) | payer MEDICARE, MEDICAID, SELFPAY ==
[2023-01-01 09:35] LABS: Alanine Aminotransferase 15 U/L (6-35); Albumin Level 4.1 g/dL (3.5-5.1); Alkaline Phosphatase 60 U/L (38-126); Anion Gap 5 mmol/L (8-16); Aspartate Amino Transferase 24 U/L (14-36); Bilirubin,Total 0.5 mg/dL (0.2-1.3); Blood Urea Nitrogen 21 mg/dL (7-17); Calcium 8.6 mg/dL (8.4-10.2); Carbon Dioxide 28 mmol/L (22-30); Chloride 107 mmol/L (98-107); Estimated Glomerular Filt Rate 29; Glucose 93 mg/dL (65-110); Sodium 140 mmol/L (137-145)
== END 2023-01-01 08:50 | disposition home or self-care (01) ==
PROVIDERS: PCP Family Medicine; Visit Provider Internal Medicine Endocrinology, Diabetes & Metabolism
DX: R80.9 Proteinuria, unspecified (principal)
CPT/HCPCS: 36415; 80053

== ENCOUNTER 2023-02-11 09:33 | Emergency (ER) | payer MEDICARE, MEDICAID, SELFPAY ==
--- NOTE | ~2023-02-11 | XR_ITS ---
EXAMINATION: XR chest 2V DATE: 02/11/2023 10:03 INDICATION: Cough. TECHNIQUE: Frontal and lateral views of the chest were obtained. COMPARISON: Chest single view 09/20/2022 FINDINGS: There are airspace opacities in right lower lobe. No pleural effusion or pneumothorax. The heart size is normal. Surgical clips in the right upper quadrant are likely from cholecystectomy. IMPRESSION: 1. Airspace opacities in right lower lobe, consistent with atelectasis versus pneumonia. Reviewed, dictated and finalized at location A. IMPRESSION: 1. Airspace opacities in right lower lobe, consistent with atelectasis versus p neumonia.
[2023-02-11 09:40] VITALS: BP 139/54; PULSE 75; RESP 14; TEMP 36.4; O2SAT 94
--- NOTE | 2023-02-11 09:52 | ED.URI ---
HPI - URI/Sore Throat General Chief Complaint: Upper Respiratory Infection Stated Complaint: Cough Time Seen by Provider: 02/11/23 09:50 Source: patient Mode of arrival: ambulatory Limitations: no limitations History of Present Illness HPI Narrative: Ms. Mills is a 77-year-old female patient presenting to the clinic today with complaints of cough, increase in shortness of breath, and chest congestion times 2-3 days. She denies any known fever or chills. States she is bringing up some yellow/white phlegm. History of COPD. SpO2 is 94% on room air which is her normal baseline. MD elicited complaint: cough and other (Chest congestion) Related Data Home Medications Medication Instructions Recorded Confirmed hydralazine 25 mg tablet 50 mg PO TID 02/27/21 02/11/23 vortioxetine 5 mg tablet 20 mg PO DAILY 11/27/21 02/11/23 (Trintellix) gabapentin 300 mg capsule 300 mg PO TID 07/15/22 02/11/23 levothyroxine 75 mcg tablet 88 mcg PO DAILY 07/15/22 02/11/23 (Unithroid) trazodone 100 mg tablet 100 mg PO HS 07/15/22 02/11/23 amlodipine 5 mg tablet 5 mg PO DAILY 09/21/22 02/11/23 ergocalciferol (vitamin D2) 1,250 1,250 mcg PO WEEKLY 09/21/22 02/11/23 mcg (50,000 unit) capsule oxybutynin chloride 10 mg 10 mg PO HS 09/21/22 02/11/23 tablet,extended release 24 hr Allergies Allergy/AdvReac Type Severity Reaction Status Date / Time NILTON Inhibitors Allergy Unknown Angioedema Verified 02/11/23 09:51 Review of Systems Review of Systems: Pertinent positives per HPI. Patient denies any fever, chills, rash, headache, visual changes, dizziness, chest pain, palpitations, nausea, vomiting, diarrhea, constipation, abdominal pain, or any urinary issues. [facility] Past Medical History Medical History Anxiety Arthritis Asthma Bronchitis Carpal tunnel syndrome CHF (congestive heart failure) Chronic kidney disease Chronic obstructive pulmonary disease Depression Diabetes GERD (gastroesophageal reflux disease) Hiatal hernia HLD (hyperlipidemia) HTN (hypertension) Hypothyroidism Kidney stones NICOLA (obstructive sleep apnea) Pneumonia Renal disease RLS (restless legs syndrome) Surgical History Surgical History History of carpal tunnel release Hx of cholecystectomy Hx of elbow surgery bilateral ulnar release Hx of hysterectomy Hx of spinal surgery Family History Family History Father Hypertension Family history of malignant neoplasm of brain Family history of heart disease in male family member before age 55 Mother Family history of diabetes mellitus in first degree relative Family history of heart disease in male family member before age 55 Social History Social History Social History: Surrogate medical decision maker: Neena Hazel, granddaughter. Code status: Full code. Smoking packs per day: 1 Smoking cigarettes per day: 20.0 Years smoked: 50 Smoking pack-years: 50.00 Smoking status: Former smoker Alcohol intake: never Substance use: never Substance use type: does not use Lack of Transportation: YES Lack of Food: Never True Current Housing: I Have Housing Concerned About Future Housing: No Difficulty Paying Gas/Electric Bills: No Difficulty Paying for Meds: No Currently Unemployed: No Education: Associate Degree Difficulty w/ Childcare or Family Care: No Living arrangements: alone Additional living arrangements comments: The patient lives in her own home in [place]. 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 Gender identity (if verbalized by the patient): Female 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: No Comments At the time of my signature, I reviewed and agree with the nursing pas
[2023-02-11] MEDS: IPRATROPIUM BR 0.02% INH SOLN 0.5 MG/2.5 ML VIAL INHALATION (10:14)
[2023-02-11] MEDS: ALBUTEROL SULFATE NEB 2.5 MG/3 ML INH INHALATION (10:14)
== END 2023-02-11 10:52 | disposition home or self-care (01) ==
PROVIDERS: Emergency Provider Nurse Practitioner Family; PCP Family Medicine
DX: J18.9 Pneumonia, unspecified organism (principal); I13.0 Hypertensive heart and chronic kidney disease with heart failure and stage 1 through stage 4 chronic kidney disease, or unspecified chronic kidney disease; E11.22 Type 2 diabetes mellitus with diabetic chronic kidney disease; N18.9 Chronic kidney disease, unspecified; E78.5 Hyperlipidemia, unspecified; E03.9 Hypothyroidism, unspecified; Z87.891 Personal history of nicotine dependence; Z20.822 Contact with and (suspected) exposure to COVID-19
CPT/HCPCS: 71046; 87426; 99213; C9803; G0463

== ENCOUNTER → 2023-03-16 11:44 | Outpatient (CLI) | payer MEDICARE, MEDICAID, SELFPAY ==
--- NOTE | ~2023-03-16 | US_ITS ---
Renal-Bladder ultrasound Clinical History: Congenital renal cysts Technique: Real-time sonographic imaging of the kidneys and urinary bladder was performed. Findings: The right kidney measures 8.6 cm in length and the left kidney measures 10.2 cm. There is n o hydronephrosis or renal calculus identified. Renal cortical echogenicity is within normal limits. S mall bilateral renal cysts are noted. The urinary bladder is partially distended at the time of this exam. No intraluminal echoes are ident ified. No abnormal wall thickening is seen. Impression: Small bilateral renal cysts. Reviewed, dictated and finalized at location M. Impression: Small bilateral renal cysts.
== END ==
PROVIDERS: PCP Internal Medicine Endocrinology, Diabetes & Metabolism; Visit Provider Internal Medicine Nephrology
DX: Q61.02 Congenital multiple renal cysts (principal)
CPT/HCPCS: 76775

== ENCOUNTER 2023-09-05 09:18 | Outpatient (CLI) | payer MEDICARE, MEDICAID, SELFPAY ==
--- NOTE | 2023-09-22 16:34 | WPDSLEEPSTUD ---
Sleep Study Date of Study: 09/05/23 Ordering Provider: Jase De La Torre MD Interpreting Physician: Gemma Jennings MD Sleep Study Type: Split Polysomnogram Height: 1.55 m Weight: 102.965 kg Body Mass Index: 42.9 Neck Circumference (inches): 14.75 [place]: 3 Reason for Sleep Study obstructive sleep apnea, needs re-titration *08/07/2017 split night study showed moderate obstructive sleep apnea, AHI 25.3 with an optimal CPAP pressure of 15 cm, supine REM occurred Sleep History Jacy Mills is a 78-year-old woman with obstructive sleep apnea here for a retitration. She used CPAP in the past, but not for long. She rarely awakens from sleep short of breath. She rarely wakes at night with heartburn, belching or coughing.??She is not sure if she snores, how ever other people tells her that she snores loudly. She occasionally has trouble sleeping when she has a cold. She rarely wakes up gasping for breath during the night. She rarely sweats excessively at night. She never notices her heart pounding or beating irregularly during the night. She rarely falls asleep during the day. She rarely falls asleep involuntarily, never falls asleep while driving. She does not have loss of muscle tone with strong emotion. She never feels paralyzed on waking or falling asleep. She never experiences vivid dreams upon waking or falling asleep. She rarely feels afraid of going to sleep. She never has nightmares. She occasionally recalls her dreams. She rarely has thoughts racing through her mind. She occasionally feels sad or depressed. She occasionally feels anxiety. She never notices parts of her body jerk. She does not kick during the night. She occasionally feels crawling or aching feelings in her legs. She occasionally feels leg pain at night. She never has morning jaw pain, and frequently grinds her teeth at night. She occasionally feels bothered by pain during the day, occasionally awakened by pain during the night. She occasionally wakes up feeling stiff in the morning, occasionally wakes feeling sore or achy in the morning. She occasionally awakens with pain in her neck, spine, or joints. Normal bedtime is 10:00 p.m., falling asleep after a long time staying awake. She wakes up several times during the night if she is not sleeping well, usually getting 4-6 hours of sleep at night, maybe less. Her wake time is 9:00 a.m. When she awakes during the night, she watches television. On weekends, she may stay awake later and wake the following morning later. Habits:??Tobacco: Quit 3 months ago Caffeine: 2 cups per day. Alcohol: none Recreational substances: none [facility] Past Medical History Medical History Anxiety Arthritis Asthma Bronchitis Carpal tunnel syndrome CHF (congestive heart failure) Chronic kidney disease Chronic obstructive pulmonary disease Depression Diabetes GERD (gastroesophageal reflux disease) Hiatal hernia HLD (hyperlipidemia) HTN (hypertension) Hypothyroidism Kidney stones NICOLA (obstructive sleep apnea) Pneumonia Renal disease RLS (restless legs syndrome) Surgical History Surgical History History of carpal tunnel release Hx of cholecystectomy Hx of elbow surgery bilateral ulnar release Hx of hysterectomy Hx of spinal surgery Family History Family History Father Hypertension Family history of malignant neoplasm of brain Family history of heart disease in male family member before age 55 Mother Family history of diabetes mellitus in first degree relative Family history of heart disease in male family member before age 55 Social History Social History Social History: Surrogate medical decision maker: Neena Hazel, granddaughter. Code status: Full code. Smoking packs per d
[2023-09-25 16:43] VITALS: BMI 42.9
== END 2023-09-06 06:40 | disposition home or self-care (01) ==
LOC: ANHCSM 09:19
PROVIDERS: PCP Family Medicine; Visit Provider Internal Medicine Pulmonary Disease
DX: G47.33 Obstructive sleep apnea (adult) (pediatric) (principal); E78.5 Hyperlipidemia, unspecified; N18.9 Chronic kidney disease, unspecified; E11.22 Type 2 diabetes mellitus with diabetic chronic kidney disease; I50.9 Heart failure, unspecified; I13.0 Hypertensive heart and chronic kidney disease with heart failure and stage 1 through stage 4 chronic kidney disease, or unspecified chronic kidney disease; Z87.891 Personal history of nicotine dependence
CPT/HCPCS: 95811

== ENCOUNTER 2023-09-12 12:17 | Outpatient (CLI) | payer MEDICARE, MEDICAID, SELFPAY ==
[2023-09-12 13:17] LABS: Anion Gap 5 mmol/L (8-16); Blood Urea Nitrogen 20 mg/dL (7-17); Calcium 8.8 mg/dL (8.4-10.2); Carbon Dioxide 29 mmol/L (22-30); Chloride 106 mmol/L (98-107); Estimated Glomerular Filt Rate 40; Glucose 99 mg/dL (65-110); Phosphorus 3.4 mg/dL (2.5-4.5); Potassium 4.2 mmol/L (3.4-5.0); Sodium 140 mmol/L (137-145)
== END 2023-09-12 12:18 | disposition home or self-care (01) ==
LOC: ANHLAB 12:19
PROVIDERS: PCP Family Medicine; Visit Provider Internal Medicine Nephrology
DX: I12.9 Hypertensive chronic kidney disease with stage 1 through stage 4 chronic kidney disease, or unspecified chronic kidney disease (principal); N18.4 Chronic kidney disease, stage 4 (severe)
CPT/HCPCS: 36415; 80069

== ENCOUNTER 2023-09-24 08:52 | Outpatient (CLI) | payer MEDICARE, MEDICAID, SELFPAY ==
[2023-09-24 10:37] LABS: Alanine Aminotransferase 17 U/L (6-35); Albumin Level 4.5 g/dL (3.5-5.1); Alkaline Phosphatase 77 U/L (38-126); Anion Gap 8 mmol/L (8-16); Aspartate Amino Transferase 26 U/L (14-36); Bilirubin,Total 0.6 mg/dL (0.2-1.3); Blood Urea Nitrogen 27 mg/dL (7-17); Calcium 9.4 mg/dL (8.4-10.2); Carbon Dioxide 31 mmol/L (22-30); Chloride 105 mmol/L (98-107); Estimated Glomerular Filt Rate 37; Glucose 118 mg/dL (65-110); Potassium 4.9 mmol/L (3.4-5.0); Sodium 144 mmol/L (137-145)
[2023-09-24 11:05] LABS: Cortisol Random 1.79 ug/dL
[2023-09-24 11:10] LABS: Free T4 Free Thyroxine 1.16 ng/mL (0.78-2.19)
[2023-09-28 05:02] LABS: Thyroglobulin 0.7 ng/mL (2.8-40.9); Thyroglobulin Antibodies <1 IU/mL (<=1)
[2023-09-28 18:49] LABS: Adrenocorticotropic Hormone <5 pg/mL (6-50)
== END 2023-09-24 08:53 | disposition home or self-care (01) ==
PROVIDERS: PCP Family Medicine; Visit Provider Internal Medicine
DX: C73 Malignant neoplasm of thyroid gland (principal)
CPT/HCPCS: 36415; 80053; 82024; 82533; 84432; 84439; 84443; 86800

== ENCOUNTER 2023-09-26 11:14 | Outpatient (CLI) | payer MEDICARE, MEDICAID, SELFPAY | END 2023-09-26 11:15 | disposition home or self-care (01) | PROVIDERS: PCP Family Medicine; Visit Provider Internal Medicine | DX: C73 Malignant neoplasm of thyroid gland (principal) | CPT/HCPCS: 82530 ==

== ENCOUNTER 2023-10-13 13:20 | Outpatient (CLI) | payer MEDICARE, MEDICAID, SELFPAY ==
--- NOTE | 2023-10-18 08:41 | P.PCNPFT_ITS ---
PFT Procedure Performed PFT Procedure Performed Spirometry with Pre/Post Bronchodilator Plethysmography (Lung Vol) Diffusing Cap (DLCO) Flow Vol Loop PFT Interpretation DOS: 10/13/2023 REQUESTING: Jase De La Torre MD REASON FOR TESTING: asthma PULMONARY FUNCTION TESTS The repeatability of the FEV1 maneuver pre-bronchodilator was Grade B. The repeatability of the FEV1 maneuver post-bronchodilator was Grade A. the patient could only perform 1 plethysmography that was acceptable after multiple a ttempts. Spirometry: FEV1 is 1.18 L, 64% predicted, reduced. Pre bronchodilator FVC is 1.66 L, 69% predicted, mildly reduced. FEV1/FVC ratio is 71%, normal. After bronchodilator, FEV1 increases to 1.34 L, 73% predicted which is normal. This is a 14% increase in flows yet less than 200 mL. After bronchodilator the FVC increases to 1.81 L, 76% predicted, 9% increase. The FEF 25-75 initially is 0.63 L, this increases after bronchodilator to 1.01 L, a 61% increase. The post FEF 25-75 is 1.01 L which is within the normal range. Lung volumes: Total lung capacity 3.41 L, 74% predicted, decreased, consistent with mild restriction. Residual volume 1.63 L, 75% predicted, normal. RV /TLC is 48%, normal. Airway resistance is 4.55 cm water/ L/ second, 179% predicted Diffusion: DLCO 14.6, 79% predicted, normal. DLCO / VA 4.75, 110%, normal. Flow volume loop: mixed pattern, overall restrictive appearance with mild coving of the expiratory limb IMPRESSION: This study shows a small airways pattern with good response to bronchodilator, mild restriction, normal diffusion. The repeatability was not optimal although the patient had optimal effort. Clinical correlation is r ecommended. No prior study for comparison Gemma Jennings MD
== END 2023-10-13 13:21 | disposition home or self-care (01) ==
PROVIDERS: PCP Family Medicine; Visit Provider Internal Medicine Pulmonary Disease
DX: J44.9 Chronic obstructive pulmonary disease, unspecified (principal)
CPT/HCPCS: 94060; 94726; 94729

== ENCOUNTER 2023-10-24 10:53 | Outpatient (CLI) | payer MEDICARE, MEDICAID, SELFPAY ==
[2023-10-24 16:56] LABS: Hemoglobin A1C 5.9 % (<5.7)
== END 2023-10-24 10:54 | disposition home or self-care (01) ==
LOC: ANHLAB 10:55
PROVIDERS: PCP Family Medicine; Visit Provider Internal Medicine
DX: R73.03 Prediabetes (principal)
CPT/HCPCS: 36415; 83036

== ENCOUNTER 2023-11-09 10:29 | Outpatient (CLI) | payer MEDICARE, MEDICAID, SELFPAY ==
--- NOTE | ~2023-11-09 | US_ITS ---
EXAMINATION: US soft tissue head and neck DATE: 11/09/2023 11:07 INDICATION: Thyroid cancer status post thyroidectomy. TECHNIQUE: Multiple grayscale and Doppler ultrasound images of the head and neck were obtained. COMPARISON: Chest CT 09/20/2022 FINDINGS: The thyroid is absent. There is no abnormal tissue in the thyroidectomy bed. There are are no pathologically enlarged lymph nodes. IMPRESSION: 1. Thyroidectomy. Reviewed, dictated and finalized at location E. PENDENT CONSULTANT IMPRESSION: 1. Thyroidectomy.
== END 2023-11-09 10:30 | disposition home or self-care (01) ==
LOC: ANHIMG 10:32
PROVIDERS: PCP Family Medicine; Visit Provider Internal Medicine
DX: C73 Malignant neoplasm of thyroid gland (principal); Z85.850 Personal history of malignant neoplasm of thyroid; Z90.89 Acquired absence of other organs
CPT/HCPCS: 76536

== ENCOUNTER 2023-12-01 12:09 | Emergency (ER) | payer MEDICARE, MEDICAID, SELFPAY ==
[2023-12-01] VITALS (14 sets, daily range): BP systolic 115–154; BP diastolic 56–101; PULSE 66–76; RESP 14–23; TEMP 36.2–36.6; O2SAT 94–100
--- NOTE | ~2023-12-01 | XR_ITS ---
Clinical Indication: Shortness of breath PA and lateral views of the chest: Comparison: 02/11/2023 Findings: The lungs are clear, without evidence of focal consolidation or pleural effusion. Cardiome diastinal silhouette is within normal limits. Bones and soft tissues are unremarkable. Impression: Normal chest. Reviewed, dictated and finalized at [facility]. OBIOLOGIST Impression: Normal chest.
--- NOTE | 2023-12-01 12:20 | ECG_ITS ---
Measurements Intervals [place] Rate: 65 P: 46 OR: 196 QRS: -32 QRSD: 108 T: 62 QT: 396 QTc: 412 Interpretive Statements SINUS RHYTHM LEFT AXIS DEVIATION LEFT VENTRICULAR HYPERTROPHY WITH ST-T CHANGE CANNOT RULE OUT SEPTAL INFARCT, AGE INDETERMINATE BASELINE ARTIFACT- I, II, III, AVR, AVL, AVF ABNORMAL ECG COMPARED TO ECG 09/20/2022 11:09:37 NO SIGNIFICANT CHANGES Electronically Signed On 12-02-2023 15:25:06 WOOD BUCKER by Peterson Roque D.O.
[2023-12-01 12:44] LABS: Basophils Absolute Auto 0.1 K/mm3 (0.0-0.1); Basophils Percent Auto 0.6 % (0.2-1.2); Eosinophils Absolute Auto 0.3 K/mm3 (0-0.3); Eosinophils Percent Auto 3.9 % (0-4.4); Hematocrit 44.1 % (37.0-47.0); Hemoglobin 13.2 g/dL (12.0-15.0); Immature Granulocyte Absolute 0.03 K/mm3 (0.00-0.031); Immature Granulocyte Percent A 0.4 % (0-0.5); Lymphocytes Absolute Auto 1.26 K/mm3 (0.9-3.2); Lymphocytes Percent Auto 15.9 % (18.3-44.2); Mean Corpuscular HGB Conc 29.9 g/dl (32-36); Mean Corpuscular Hemoglobin 27.5 pg (26-34); Mean Corpuscular Volume 91.9 fl (80-100); Mean Platelet Volume 10.2 fl (7.4-10.4); Monocytes Absolute Auto 0.7 K/mm3 (0.1-0.6); Monocytes Percent Auto 9.3 % (2.6-8.5); Neutrophils Absolute Auto 5.5 K/mm3 (1.3-6.7); Neutrophils Percent Auto 69.9 % (45.5-73.1); Platelet Count Result 236 k/mm3 (150-375); Red Cell Distribution Width 13.9 % (11.5-14.5); White Blood Count 7.9 K/mm3 (4.5-10.0)
[2023-12-01 12:55] LABS: Alanine Aminotransferase 21 U/L (6-35); Albumin Level 4.1 g/dL (3.5-5.1); Alkaline Phosphatase 75 U/L (38-126); Anion Gap 6 mmol/L (8-16); Aspartate Amino Transferase 37 U/L (14-36); Bilirubin,Total 0.6 mg/dL (0.2-1.3); Blood Urea Nitrogen 14 mg/dL (7-17); Calcium 8.7 mg/dL (8.4-10.2); Carbon Dioxide 29 mmol/L (22-30); Chloride 108 mmol/L (98-107); Estimated CRCL calculation 31 ml/min; Estimated Glomerular Filt Rate 31; Glucose 97 mg/dL (65-110); Potassium 4.9 mmol/L (3.4-5.0); Sodium 143 mmol/L (137-145)
[2023-12-01 13:11] LABS: Platelet Estimate Adequate (Adequate); Schistocytes None Seen (NORMAL)
[2023-12-01] MEDS: IPRATROPIUM 0.5 MG/ALBUTEROL SULFATE 2.5 MG AMPUL.NEB 3 ML INHALATION ×2 (13:13→15:33)
[2023-12-01 13:22] LABS: Troponin I < 0.012 ng/mL (0.000-0.034)
[2023-12-01] MEDS: predniSONE 40 MG, predniSONE 10 MG 50 MG PO (15:19)
--- NOTE | 2023-12-01 15:33 | ED.SOB ---
HPI - SOB/Dyspnea General Chief Complaint: Shortness of Breath/Dyspnea Stated Complaint: SOB Time Seen by Provider: 12/01/23 12:27 History of Present Illness HPI Narrative: patient is 78-year-old female who presents ER with 2 complaints. First complaint is shortness of breath. Worsening over last month. Has history of COPD and CHF. 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 She reports her BiPAP has been leaking and not working right. She also reports she has been hearing rattling in feeling wheezing in her chest. She has been using home medication without improvement. Patient's 2nd complaint is pain to bilateral shoulders ago down to her hands. Ongoing over last month as well. Patient has history of spinal stenosis. Denies exertional component. No chest pain or shortness of breath. She has no physical weakness related to this pain. Is transient in nature. Denies trauma to the arms back/neck. Related Data Home Medications Medication Instructions Recorded Confirmed amlodipine 5 mg tablet 5 mg PO DAILY 09/21/22 11/21/23 ergocalciferol (vitamin D2) 1,250 1,250 mcg PO WEEKLY 09/21/22 11/21/23 mcg (50,000 unit) capsule oxybutynin chloride 10 mg 10 mg PO HS 09/21/22 11/21/23 tablet,extended release 24 hr nitroglycerin 0.4 mg sublingual 0.4 mg sublingual ONCE 08/17/23 11/21/23 tablet isosorbide mononitrate 30 mg 30 mg PO DAILY 09/15/23 11/21/23 tablet,extended release 24 hr magnesium oxide 400 mg PO BID 09/15/23 11/21/23 pregabalin 200 mg capsule 200 mg PO BID 09/15/23 11/21/23 rosuvastatin 10 mg tablet 10 mg PO DAILY 09/15/23 11/21/23 vortioxetine 20 mg tablet 20 mg PO DAILY 09/15/23 11/21/23 (Trintellix) hydrocodone 10 mg-acetaminophen 1 tablet PO Q8H PRN 11/16/23 11/21/23 325 mg tablet Allergies Allergy/AdvReac Type Severity Reaction Status Date / Time NILTON Inhibitors Allergy Unknown Angioedema Verified 12/01/23 12:24 Review of Systems Review of Systems: All systems reviewed & are unremarkable except as noted in HPI and below PMFSH Past Medical History Medical History Anxiety Arthritis Asthma Bronchitis Carpal tunnel syndrome CHF (congestive heart failure) Chronic kidney disease Chronic obstructive pulmonary disease Depression Diabetes GERD (gastroesophageal reflux disease) Hiatal hernia HLD (hyperlipidemia) HTN (hypertension) Hypothyroidism Kidney stones NICOLA (obstructive sleep apnea) Pneumonia Renal disease RLS (restless legs syndrome) Surgical History Surgical History History of carpal tunnel release Hx of cholecystectomy Hx of elbow surgery bilateral ulnar release Hx of hysterectomy Hx of spinal surgery Family History Family History Father Hypertension Family history of malignant neoplasm of brain Family history of heart disease in male family member before age 55 Mother Family history of diabetes mellitus in first degree relative Family history of heart disease in male family member before age 55 Social History Social History Social History: Surrogate medical decision maker: Neena Hazel, granddaughter. Code status: Full code. Smoking packs per day: 1 Smoking cigarettes per day: 20.0 Years smoked: 50 Smoking pack-years: 50.00 Smoking status: Former smoker Alcohol intake: never Substance use: never Substance use type: does not use Do You Feel Safe in your Home?: Yes Lack of Transportation: YES Lack of Food: Never True Current Housing: I Have Housing Concerned About Future Housing: No Difficulty Paying Gas/Electric Bills: No Difficulty Paying for Meds: No Currently Unemployed: No Education: Associate Degree Difficulty w/ Childcare or Family Care: No Living arrangements: al
== END 2023-12-01 16:13 | disposition home or self-care (01) ==
PROVIDERS: Emergency Provider Emergency Medicine; PCP Family Medicine
DX: J44.1 Chronic obstructive pulmonary disease with (acute) exacerbation (principal); I50.9 Heart failure, unspecified; I13.0 Hypertensive heart and chronic kidney disease with heart failure and stage 1 through stage 4 chronic kidney disease, or unspecified chronic kidney disease; N18.9 Chronic kidney disease, unspecified; E11.22 Type 2 diabetes mellitus with diabetic chronic kidney disease; E78.5 Hyperlipidemia, unspecified; E03.9 Hypothyroidism, unspecified; K21.9 Gastro-esophageal reflux disease without esophagitis; K44.9 Diaphragmatic hernia without obstruction or gangrene; M19.90 Unspecified osteoarthritis, unspecified site; G47.33 Obstructive sleep apnea (adult) (pediatric); G25.81 Restless legs syndrome; Z87.442 Personal history of urinary calculi; Z87.01 Personal history of pneumonia (recurrent); Z87.891 Personal history of nicotine dependence; Z90.710 Acquired absence of both cervix and uterus; Z90.49 Acquired absence of other specified parts of digestive tract; Z79.85 Long-term (current) use of injectable non-insulin antidiabetic drugs; Z79.899 Other long term (current) drug therapy; R94.31 Abnormal electrocardiogram [ECG] [EKG]; I51.7 Cardiomegaly
CPT/HCPCS: 36415; 71046; 80053; 84484; 85025; 93005; 94640; 99284; J7512

== ENCOUNTER 2023-12-07 16:59 | Inpatient (IN) | payer MEDICARE, MEDICAID, SELFPAY ==
[2023-12-07] VITALS (12 sets, daily range): BP systolic 92–147; BP diastolic 56–82; PULSE 78–104; RESP 15–28; TEMP 36.6–39.4; O2SAT 90–100; BMI 43.5
--- NOTE | ~2023-12-07 | XR_ITS ---
EXAMINATION: XR chest 1V portable INDICATION: Pneumonia TECHNIQUE: Portable AP chest at 0918 hours COMPARISON: 12/07/2023 FINDINGS: Patchy airspace opacities of the mid and lower lung zones persist but demonstrate slight im provement. No pleural effusion or pneumothorax. The cardiomediastinal silhouette is stable. IMPRESSION: 1. Patchy airspace opacities of the mid and lower lung zones with slight improvement, consistent with pneumonia versus pulmonary edema. Reviewed, dictated and finalized at location F. T FURNACE OPERATOR IMPRESSION: 1. Patchy airspace opacities of the mid and lower lung zones with slight improv ement, consistent with pneumonia versus pulmonary edema.
--- NOTE | ~2023-12-07 | XR_ITS ---
EXAMINATION: XR chest 2V DATE: 12/07/2023 18:13 INDICATION: Shortness of breath and fever TECHNIQUE: frontal and lateral views of the chest were obtained. COMPARISON: Chest radiograph dated 12/01/2023 FINDINGS: Mild patchy airspace opacities in the bilateral mid and lower lung zones. No pleural effusion or pneu mothorax. Arch size is normal. Moderate osteoarthritis at the right glenohumeral joint. IMPRESSION: 1. Mild airspace opacities in bilateral mid and lower lung zones which could represent pneumonia or l ess likely mild pulmonary edema. Reviewed, dictated and finalized at location A. RACTIVE DESIGNER IMPRESSION: 1. Mild airspace opacities in bilateral mid and lower lung zones which could re present pneumonia or less likely mild pulmonary edema.
--- NOTE | 2023-12-07 17:12 | ECG_ITS ---
Measurements Intervals [place] Rate: 104 P: 39 NC: 158 QRS: -41 QRSD: 94 T: 103 QT: 319 QTc: 421 Interpretive Statements SINUS TACHYCARDIA ATRIAL PREMATURE COMPLEXES LEFT AXIS DEVIATION LEFT VENTRICULAR HYPERTROPHY AND ST-T CHANGE CANNOT RULE OUT SEPTAL INFARCT, AGE INDETERMINATE BASELINE ARTIFACT- I, II, III, AVR, AVL, V1-V2 ABNORMAL ECG COMPARED TO ECG 12/01/2023 12:28:16 SINUS TACHYCARDIA NOW PRESENT Electronically Signed On 12-07-2023 21:09:56 GRINDER SET UP OPERATOR CENTERLESS by Peterson Roque D.O.
--- NOTE | 2023-12-07 17:17 | ED.SOB ---
HPI - SOB/Dyspnea General Chief Complaint: Shortness of Breath/Dyspnea <Cindy Roth PA-C - Last Filed: 12/08/23 00:16> Stated Complaint: SOB <Cindy Roth PA-C - Last Filed: 12/08/23 00:16> Time Seen by Provider: 12/07/23 17:10 <Cindy Roth PA-C - Last Filed: 12/08/23 00:16> Focused HPI: This is a 78-year-old female that presents to the emergency department for dyspnea. Worsening over the last couple of days. Also reports epigastric discomfort that is making her very nauseous. Patient febrile in triage. Denies chest pain GENERAL: Well-appearing, well-nourished, and in no acute distress. HEAD: Normocephalic, atraumatic. CHEST: No respiratory distress. Diffuse expiratory wheezing HEART: Regular rate and rhythm. NEURO: Alert and oriented x3. Patient screened in triage and initial orders placed. Additional care and disposition to be based upon diagnostic testing and treatment. <Cindy Roth PA-C - Last Filed: 12/08/23 00:16> Source: patient and family <Cindy Roth PA-C - Last Filed: 12/08/23 00:16> Mode of arrival: wheelchair <Cindy Roth PA-C - Last Filed: 12/08/23 00:16> Limitations: no limitations <Cindy Roth PA-C - Last Filed: 12/08/23 00:16> History of Present Illness HPI Narrative: Patient is a 78-year-old female who presents ER with cough and shortness of breath. Seen here earlier in the week. She had been on steroids in inhalers without improvement. She has since developed fevers. No chest pain or chest pressure. She has been wearing her p.r.n. oxygen at home. She reports her pulse oximeter reading home has been around 90% on room air. <Andrew Klein MD - Last Filed: 12/07/23 22:12> Related Data Home Medications: Home Medications Medication Instructions Recorded Confirmed amlodipine 5 mg tablet 5 mg PO DAILY 09/21/22 12/07/23 ergocalciferol (vitamin D2) 1,250 1,250 mcg PO WEEKLY 09/21/22 12/07/23 mcg (50,000 unit) capsule oxybutynin chloride 10 mg 10 mg PO HS 09/21/22 12/07/23 tablet,extended release 24 hr isosorbide mononitrate 30 mg 30 mg PO DAILY 09/15/23 12/07/23 tablet,extended release 24 hr magnesium oxide 400 mg PO BID 09/15/23 12/07/23 pregabalin 200 mg capsule 200 mg PO BID 09/15/23 12/07/23 rosuvastatin 10 mg tablet 10 mg PO DAILY 09/15/23 12/07/23 vortioxetine 20 mg tablet 20 mg PO DAILY 09/15/23 12/07/23 (Trintellix) hydrocodone 10 mg-acetaminophen 1 tablet PO Q8H PRN PAIN 11/16/23 12/07/23 325 mg tablet dapagliflozin propanediol 5 mg 5 mg PO DAILY 12/07/23 12/07/23 tablet (Farxiga) furosemide 20 mg tablet mg 12/07/23 <Cindy Roth PA-C - Last Filed: 12/08/23 00:16> Allergies/Adverse Reactions: Allergies Allergy/AdvReac Type Severity Reaction Status Date / Time NILTON Inhibitors Allergy Unknown Angioedema Verified 12/01/23 12:24 <Cindy Roth PA-C - Last Filed: 12/08/23 00:16> Review of Systems Review of Systems: All systems reviewed & are unremarkable except as noted in HPI and below <Andrew Klein MD - Last Filed: 12/07/23 22:12> Constitutional: Constitutional: Reports chills, Reports fatigue, Reports fever(s) and Reports weakness <Andrew Klein MD - Last Filed: 12/07/23 22:12> ENT: Reports system reviewed and no additional complaints, except as documented <Andrew Klein MD - Last Filed: 12/07/23 22:12> Cardiovascular: Cardiovascular: Reports no additional cardiovascular complaints <Andrew Klein MD - Last Filed: 12/07/23 22:12> Respiratory: Respiratory: Reports cough and Reports dyspnea <Andrew Klein MD - Last Filed: 12/07/23 22:12> Gastrointestinal: Gastrointestinal: Reports no additional gastrointestinal complaints <Andrew Klein MD - Last Filed: 12/07/23 22:12> Genitourinary: Genitourinary: Reports no additional female genitourinary complaints <Andrew Klein MD - Last Filed: 12/07/23 22:12> Musculoskeletal: M
[2023-12-07 17:59] LABS: Basophils Percent Auto 0.3 % (0.2-1.2); Hematocrit 44.8 % (37.0-47.0); Hemoglobin 14.2 g/dL (12.0-15.0); Immature Granulocyte Absolute 0.08 K/mm3 (0.00-0.031); Lymphocytes Absolute Auto 1.26 K/mm3 (0.9-3.2); Lymphocytes Percent Auto 16.1 % (18.3-44.2); Mean Corpuscular HGB Conc 31.7 g/dl (32-36); Mean Corpuscular Hemoglobin 27.6 pg (26-34); Mean Platelet Volume 10.3 fl (7.4-10.4); Monocytes Absolute Auto 1.1 K/mm3 (0.1-0.6); Monocytes Percent Auto 14.4 % (2.6-8.5); Neutrophils Absolute Auto 5.3 K/mm3 (1.3-6.7); Neutrophils Percent Auto 68.2 % (45.5-73.1); Platelet Count Result 195 k/mm3 (150-375); Red Blood Count 5.15 M/mm3 (4.2-5.4); Red Cell Distribution Width 14.1 % (11.5-14.5); White Blood Count 7.8 K/mm3 (4.5-10.0)
[2023-12-07 18:11] LABS: Prothrombin Time 13.6 Seconds (11.1-14.7)
[2023-12-07 18:12] LABS: Alanine Aminotransferase 16 U/L (6-35); Alkaline Phosphatase 69 U/L (38-126); Anion Gap 7 mmol/L (8-16); Aspartate Amino Transferase 24 U/L (14-36); Bilirubin,Total 0.7 mg/dL (0.2-1.3); Blood Urea Nitrogen 35 mg/dL (7-17); Calcium 8.5 mg/dL (8.4-10.2); Carbon Dioxide 31 mmol/L (22-30); Chloride 103 mmol/L (98-107); Estimated CRCL calculation 31 ml/min; Estimated Glomerular Filt Rate 31; Glucose 106 mg/dL (65-110); Lipase 120 U/L (23-300); Partial Thromboplastin Time 26.5 SECONDS (22.3-36.8); Potassium 3.9 mmol/L (3.4-5.0); Sodium 141 mmol/L (137-145)
[2023-12-07 18:14] LABS: Lactic Acid Reflex 1.5 mmol/L (0.7-2.0)
[2023-12-07 18:17] LABS: CRP 1.4 mg/dL (<1.0)
[2023-12-07 18:23] LABS: Troponin I < 0.012 ng/mL (0.000-0.034)
[2023-12-07] MEDS: IPRATROPIUM BR 0.02% INH SOLN 0.5 MG/2.5 ML VIAL 1.5 MG INHALATION (18:37)
[2023-12-07] MEDS: ALBUTEROL SULFATE NEB 2.5 MG/3 ML INH 15 MG INHALATION (18:37)
[2023-12-07] MEDS: ACETAMINOPHEN 500 MG TABLET 1000 MG PO (19:29)
[2023-12-07] MEDS: ONDANSETRON INJ 4 MG/2 ML VIAL IV PUSH (19:29)
[2023-12-07] MEDS: LORazepam INJ (*CRX) 2 MG/ML VIAL 1 MG IV PUSH (19:29)
[2023-12-07 19:30] LABS: Influenza A QL RT-PCR Negative (Negative); Influenza B QL RT-PCR Negative (Negative); RSV RNA, RT-PCR Negative (Negative); SARS-CoV-2 RNA PCR Positive (Negative)
--- NOTE | 2023-12-07 20:34 | PM.IMHP ---
H&P: HPI History of Present Illness Date/Time: 12/07/23 20:34 Chief Complaint: shortness of breath Narrative: This is a 78-year-old female past medical history significant for COPD/ EE asthma, Chronic kidney disease,insulin-dependent diabetes mellitus, obesity, hypertension, patient presents to the emergency room with shortness of breath, generalized malaise, for several days chest congestion, dry cough, muscle aches and pains, fevers, rigors, chills, poor appetite in emergency room patient had episode of desaturation. preliminary workup was significant for patient tested positive for COVID-19. A chest x-ray was significant for lung infiltrates. patient has been admitted for further evaluation, management and treatment. EXAMINATION: XR chest 2V DATE: 12/07/2023 18:13 INDICATION: Shortness of breath and fever TECHNIQUE: frontal and lateral views of the chest were obtained. COMPARISON: Chest radiograph dated 12/01/2023 FINDINGS: Mild patchy airspace opacities in the bilateral mid and lower lung zones. No pleural effusion or pneumothorax. Arch size is normal. Moderate osteoarthritis at the right glenohumeral joint. IMPRESSION: 1. Mild airspace opacities in bilateral mid and lower lung zones which could represent pneumonia or less likely mild pulmonary edema. Review of Systems Review of Systems: Generalized malaise, body aches and pains, dry cough, chest congestion, fevers, chills, shortness of breath Constitutional: Constitutional: Reports chills, Reports fatigue, Reports fever(s), Reports malaise, Reports poor appetite and Reports weakness Eyes: Eyes: Denies change in vision ENT: Denies dysphagia and Denies odynophagia Cardiovascular: Cardiovascular: Denies chest pain, Denies radiating jaw, neck or arm pain and Denies palpitations Respiratory: Respiratory: Reports chest congestion, Reports cough, Reports dyspnea, Reports dyspnea on exertion and Reports wheezing Gastrointestinal: Gastrointestinal: Denies abdominal pain, Denies dyspepsia, Denies heartburn, Denies diarrhea, Denies nausea and Denies vomiting Genitourinary: Genitourinary: Denies dysuria Musculoskeletal: Musculoskeletal: Reports myalgias Integumentary/Breasts: Skin/Breast: Denies rash Neurologic: Denies focal weakness and Denies Sensory deficit (Neuro) Psychiatric: Psychiatric: Reports no additional psychiatric complaints and Reports as per HPI Endocrine: Endocrine: Denies cold intolerance, Denies flushing, Denies heat intolerance, Denies polyphagia, Denies polydipsia and Denies palpitations Hematologic/Lymphatic: Hematologic/Lymphatic: Reports no additional hematologic/lymphatic complaints and Reports as per HPI Allergic/Immunologic: Allergic/Immunologic: Reports no additional allergic/immunologic complaints and Reports as per HPI PMFSH Past Medical History Medical History Anxiety Arthritis Asthma Bronchitis Carpal tunnel syndrome CHF (congestive heart failure) Chronic kidney disease Chronic obstructive pulmonary disease Depression Diabetes GERD (gastroesophageal reflux disease) Hiatal hernia HLD (hyperlipidemia) HTN (hypertension) Hypothyroidism Kidney stones NICOLA (obstructive sleep apnea) Pneumonia Renal disease RLS (restless legs syndrome) Surgical History Surgical History History of carpal tunnel release Hx of cholecystectomy Hx of elbow surgery bilateral ulnar release Hx of hysterectomy Hx of spinal surgery Family History Family History Father Hypertension Family history of malignant neoplasm of brain Family history of heart disease in male family member before age 55 Mother Family history of diabetes mellitus in first degree relative Family history of heart disease in male family member before age 55 Social History Social History (Reviewed 0
[2023-12-07] MEDS: IBUPROFEN 600 MG TABLET PO (21:28)
[2023-12-07 21:55] LABS: Appearance Urine Clear (Clear); Bacteria Urine None Seen /hpf; Bilirubin Urine Negative (Negative); Blood Urine Negative (Negative); Color Urine Yellow (Yellow); Glucose Urine UA 1+ mg/dL (Negative); Ketones Urine Negative (Negative); Leukocyte Esterase Ur Negative LEU/UL (Negative); Nitrate Urine Negative (Negative); Protein Urine 2+ mg/dL (Negative); RBC Urine 0-2 /hpf (0-2); Specific Grav Ur 1.018 (1.001-1.035); Squamous Epithelial Cell Urine None seen /hpf (Few); Urobilinogen Urine 0.2 mg/dL (<2.0); WBC Urine 0-5 /hpf
[2023-12-07 22:03] LABS: Add Urine Microscopic? YES
--- NOTE | 2023-12-07 23:07 | ADMGEN ---
This patient, Jacy Mills, was admitted to Medical Room 251-01. Patient/family oriented to hospital policies and general routines including ID bracelet, bed and alarms, visiting hours, pain management, procedures, bathroom and other care routines, personal items, smoking policy, room service/diet, and visiting hours. Information on how to activate the Rapid Response Team has been discussed. Patient/Family are encouraged to report perceived risks to care and to ask questions if they do not understand what they are told or what they should do.
[2023-12-08] VITALS (12 sets, daily range): BP systolic 114–130; BP diastolic 39–54; PULSE 57–92; RESP 18; TEMP 36.5–36.7; O2SAT 92–95
[2023-12-08] MEDS: LEVOTHYROXINE SODIUM 75 MCG TABLET PO (06:27)
[2023-12-08 10:17] LABS: Basophils Percent Auto 0.2 % (0.2-1.2); Hematocrit 43.5 % (37.0-47.0); Hemoglobin 13.3 g/dL (12.0-15.0); Immature Granulocyte Absolute 0.08 K/mm3 (0.00-0.031); Immature Granulocyte Percent A 1.2 % (0-0.5); Lymphocytes Absolute Auto 0.66 K/mm3 (0.9-3.2); Lymphocytes Percent Auto 10.3 % (18.3-44.2); Mean Corpuscular HGB Conc 30.6 g/dl (32-36); Mean Corpuscular Hemoglobin 27.5 pg (26-34); Mean Corpuscular Volume 90.1 fl (80-100); Mean Platelet Volume 10.5 fl (7.4-10.4); Monocytes Absolute Auto 0.6 K/mm3 (0.1-0.6); Monocytes Percent Auto 8.6 % (2.6-8.5); Neutrophils Absolute Auto 5.1 K/mm3 (1.3-6.7); Neutrophils Percent Auto 79.7 % (45.5-73.1); Platelet Count Result 180 k/mm3 (150-375); Red Blood Count 4.83 M/mm3 (4.2-5.4); Red Cell Distribution Width 14.1 % (11.5-14.5); White Blood Count 6.4 K/mm3 (4.5-10.0)
[2023-12-08] MEDS: PREGABALIN (*CRX) 50 MG CAPSULE 200 MG PO ×2 (10:28→18:28)
[2023-12-08] MEDS: EMPAGLIFLOZIN 10 MG TABLET PO (10:29)
[2023-12-08] MEDS: ISOSORBIDE MONONITRATE 30 MG TAB.ER.24H PO (10:30)
[2023-12-08] MEDS: amLODIPine BESYLATE 5 MG TABLET PO (10:30)
[2023-12-08] MEDS: ENOXAPARIN 40 MG/0.4 ML SYRINGE SUB-Q (10:31)
[2023-12-08 10:42] LABS: Anion Gap 10 mmol/L (8-16); Blood Urea Nitrogen 48 mg/dL (7-17); CRP 3.4 mg/dL (<1.0); Calcium 8.2 mg/dL (8.4-10.2); Carbon Dioxide 26 mmol/L (22-30); Chloride 103 mmol/L (98-107); Estimated CRCL calculation 25 ml/min; Estimated Glomerular Filt Rate 24; Glucose 153 mg/dL (65-110); Potassium 5.1 mmol/L (3.4-5.0); Sodium 139 mmol/L (137-145)
[2023-12-08] MEDS: AZITHROMYCIN 500 MG/NS 250 ML 500 MG/250 ML BAG 250 MG IVPB (11:21)
[2023-12-08 12:09] LABS: Procalcitonin 0.1 ng/mL
[2023-12-08] MEDS: MAGNESIUM OXIDE 400 MG TABLET PO ×2 (13:01→20:56)
[2023-12-08] MEDS: ONDANSETRON INJ 4 MG/2 ML VIAL IV PUSH (13:05)
--- NOTE | 2023-12-08 13:56 | PM.IMPN ---
Progress Note: A&P Assessment and Plan (1) Pneumonia due to 2019-nCoV: Code(s): U07.1 - COVID-19; J12.82 - Pneumonia due to coronavirus disease 2019 Status: Acute Assessment and Plan: failed outpatient AB treatment within the last month, patient does not know which medications she was on other than steroid taper respiratory panel covid+ CXR showed mild airspace opacities in bilateral mid and lower lung zones which could represent pneumonia or less likely mild pulmonary edema. continue Rocephin and Zithromax IV decadron 6mg daily BC cultures pending supportive care oxygen albuterol nebs (2) Hypoxia: Code(s): R09.02 - Hypoxemia Status: Acute Assessment and Plan: on supplemental oxygen by nasal cannula see above (3) Stage 3b chronic kidney disease: Code(s): N18.32 - Chronic kidney disease, stage 3b Status: Chronic Assessment and Plan: BUN and creatinine elevated will continue to trend and monitor avoiding fluids as she has CHF history (4) COPD exacerbation: Code(s): J44.1 - Chronic obstructive pulmonary disease with (acute) exacerbation Status: Chronic Assessment and Plan: IV dexamethasone 6mg daily albuterol nebs supplemental oxygen (5) GERD (gastroesophageal reflux disease): Code(s): K21.9 - Gastro-esophageal reflux disease without esophagitis Status: Chronic Assessment and Plan: PPI (6) NICOLA on CPAP: Code(s): G47.33 - Obstructive sleep apnea (adult) (pediatric); Z99.89 - Dependence on other enabling machines and devices Status: Acute Assessment and Plan: on supplemental oxygen by nasal can (7) Morbid obesity: Code(s): E66.01 - Morbid (severe) obesity due to excess calories Status: Chronic Assessment and Plan: lifestyle and diet modifications Subjective Date/time seen: 12/08/23 13:56 Interval history: Patient reporting she just doesn't feel well on exam. She has been dealing with SOB/cough related to illness for over a month now. She is requiring oxygen at rest, which is not her baseline. She knows she had previous AB/steroid therapy within the last month, but cannot tell me which. Will treat for pneumonia with AB considering her COPD, but possibly CXR related to covid infection. CRP elevated, calprotectin is normal. Will continue to monitor response to therapy. Review of Systems Review of Systems: All systems reviewed & are unremarkable except as noted in HPI and below Respiratory: Respiratory: Reports chest congestion, Reports cough and Reports dyspnea Gastrointestinal: Gastrointestinal: Reports bloating Comments: chronic issue Exam Narrative: GENERAL: Chronically ill-appearing, obese, and in no acute distress. HEAD: Normocephalic, atraumatic. EYES: PERRLA and EOMI. ENT: Nares clear, no rhinorrhea or epistaxis. Mucous membranes moist. NECK: Supple. CHEST: Lung sounds diminished, expiratory wheezes throughout. No respiratory distress. HEART: RRR. Normal peripheral pulses. ABDOMEN: Soft, nontender, nondistended. EXTREMITIES: Normal range of motion. No edema. SKIN: Warm, dry, no rash. NEURO: Alert and oriented x3. PSYCH: Normal mood and affect. Objective Data Vital Signs Vital Signs: Vital Signs - 24 hr 12/07/23 17:09 12/07/23 17:11 12/07/23 18:40 Temperature 102.9 F H Pulse Rate 100 94 Respiratory Rate 28 H 16 Blood Pressure 147/64 H Pulse Oximetry 90 94 Oxygen Delivery Room Air Oxygen Flow Rate 12/07/23 17:50 12/07/23 20:16 12/07/23 19:35 Temperature 102.5 F H Pulse Rate 102 H 104 H Respiratory Rate 21 H 28 H Blood Pressure 108/82 Pulse Oximetry 94 95 Oxygen Delivery Room Air Oxygen Flow Rate 12/07/23 20:43 12/07/23 20:43 12/07/23 21:00 Temperature 102.9 F H Pulse Rate 104 H 94 Respiratory Rate 15 Blood Pressure 107/67 Pulse Oximetry 96 100 Oxygen Delivery Nasal Cannula
[2023-12-08] MEDS: ALBUTEROL SULFATE (*SP) AEROSOL 1 PUFF 2 PUFF INHALATION ×2 (14:02→20:44)
[2023-12-08] MEDS: oxyBUTYnin CHLORIDE XL 5 MG TAB.ER.24 10 MG PO (20:56)
[2023-12-09] VITALS (14 sets, daily range): BP systolic 121–147; BP diastolic 45–70; PULSE 57–68; RESP 16–20; TEMP 36.7–37; O2SAT 92–96
[2023-12-09 05:27] LABS: Basophils Percent Auto 0.1 % (0.2-1.2); Hematocrit 41.4 % (37.0-47.0); Hemoglobin 12.6 g/dL (12.0-15.0); Immature Granulocyte Percent A 0.8 % (0-0.5); Lymphocytes Absolute Auto 0.69 K/mm3 (0.9-3.2); Lymphocytes Percent Auto 5.8 % (18.3-44.2); Mean Corpuscular HGB Conc 30.4 g/dl (32-36); Mean Corpuscular Hemoglobin 26.8 pg (26-34); Mean Corpuscular Volume 87.9 fl (80-100); Mean Platelet Volume 10.4 fl (7.4-10.4); Monocytes Absolute Auto 0.8 K/mm3 (0.1-0.6); Neutrophils Absolute Auto 10.4 K/mm3 (1.3-6.7); Neutrophils Percent Auto 86.3 % (45.5-73.1); Platelet Count Result 205 k/mm3 (150-375); Red Blood Count 4.71 M/mm3 (4.2-5.4)
[2023-12-09 05:40] LABS: Anion Gap 10 mmol/L (8-16); Blood Urea Nitrogen 50 mg/dL (7-17); Calcium 8.2 mg/dL (8.4-10.2); Carbon Dioxide 24 mmol/L (22-30); Chloride 105 mmol/L (98-107); Estimated CRCL calculation 33 ml/min; Estimated Glomerular Filt Rate 34; Glucose 133 mg/dL (65-110); Potassium 4.3 mmol/L (3.4-5.0); Sodium 139 mmol/L (137-145)
[2023-12-09] MEDS: LEVOTHYROXINE SODIUM 75 MCG TABLET PO (06:30)
[2023-12-09] MEDS: ALBUTEROL SULFATE (*SP) AEROSOL 1 PUFF 2 PUFF INHALATION ×4 (07:50→20:15)
[2023-12-09] MEDS: amLODIPine BESYLATE 5 MG TABLET PO (09:15)
[2023-12-09] MEDS: EMPAGLIFLOZIN 10 MG TABLET PO (09:15)
[2023-12-09] MEDS: ISOSORBIDE MONONITRATE 30 MG TAB.ER.24H PO (09:15)
[2023-12-09] MEDS: ENOXAPARIN 40 MG/0.4 ML SYRINGE SUB-Q (09:16)
[2023-12-09] MEDS: PREGABALIN (*CRX) 50 MG CAPSULE 200 MG PO ×2 (09:16→18:46)
[2023-12-09] MEDS: MAGNESIUM OXIDE 400 MG TABLET PO ×2 (12:07→21:37)
[2023-12-09] MEDS: AZITHROMYCIN 500 MG/NS 250 ML 500 MG/250 ML BAG 250 MG IVPB (12:37)
--- NOTE | 2023-12-09 14:00 | PM.IMPN ---
Progress Note: A&P Assessment and Plan (1) Pneumonia due to 2019-nCoV: Code(s): U07.1 - COVID-19; J12.82 - Pneumonia due to coronavirus disease 2019 Status: Acute Assessment and Plan: failed outpatient AB treatment within the last month, patient does not know which medications she was on other than steroid taper respiratory panel covid+ CXR showed mild airspace opacities in bilateral mid and lower lung zones which could represent pneumonia or less likely mild pulmonary edema. continue Rocephin and Zithromax IV decadron 6mg daily BC cultures pending supportive care oxygen albuterol nebs (2) Hypoxia: Code(s): R09.02 - Hypoxemia Status: Acute Assessment and Plan: on supplemental oxygen by nasal cannula - work to wean or will need home O2 eval see above (3) Stage 3b chronic kidney disease: Code(s): N18.32 - Chronic kidney disease, stage 3b Status: Chronic Assessment and Plan: BUN and creatinine improving from admission will continue to trend and monitor avoiding fluids as she has CHF history (4) COPD exacerbation: Code(s): J44.1 - Chronic obstructive pulmonary disease with (acute) exacerbation Status: Chronic Assessment and Plan: IV dexamethasone 6mg daily albuterol nebs supplemental oxygen (5) GERD (gastroesophageal reflux disease): Code(s): K21.9 - Gastro-esophageal reflux disease without esophagitis Status: Chronic Assessment and Plan: PPI (6) NICOLA on CPAP: Code(s): G47.33 - Obstructive sleep apnea (adult) (pediatric); Z99.89 - Dependence on other enabling machines and devices Status: Acute Assessment and Plan: CPAP ordered (7) Morbid obesity: Code(s): E66.01 - Morbid (severe) obesity due to excess calories Status: Chronic Assessment and Plan: lifestyle and diet modifications Subjective Date/time seen: 12/09/23 14:00 Interval history: Patient reporting she is feeling better than yesterday. She is still requiring oxygen at rest, which is not her baseline. Will continue to treat for pneumonia with AB considering her COPD, but possibly CXR related to covid infection. Will continue to monitor response to therapy and plan for d/c tomorrow is continues to improve and is stable. Review of Systems Review of Systems: All systems reviewed & are unremarkable except as noted in HPI and below Exam Narrative: GENERAL: Chronically ill-appearing, obese, and in no acute distress. HEAD: Normocephalic, atraumatic. EYES: PERRLA and EOMI. ENT: Nares clear, no rhinorrhea or epistaxis. Mucous membranes moist. NECK: Supple. CHEST: Lung sounds diminished, expiratory wheezes throughout. No respiratory distress. HEART: RRR. Normal peripheral pulses. ABDOMEN: Soft, nontender, nondistended. EXTREMITIES: Normal range of motion. No edema. SKIN: Warm, dry, no rash. NEURO: Alert and oriented x3. PSYCH: Normal mood and affect. Objective Data Vital Signs Vital Signs: Vital Signs - 24 hr 12/08/23 15:50 12/08/23 16:10 12/08/23 16:00 Temperature Pulse Rate 80 Respiratory Rate Blood Pressure Pulse Oximetry Oxygen Delivery Room Air Room Air Oxygen Flow Rate Fraction of Inspired Oxygen 12/08/23 20:09 12/08/23 20:00 12/08/23 20:00 Temperature 97.8 F Pulse Rate 72 72 Respiratory Rate 18 Blood Pressure 130/54 L Pulse Oximetry 92 92 Oxygen Delivery Nasal Cannula Oxygen Flow Rate 3 Fraction of Inspired Oxygen 12/09/23 00:00 12/08/23 20:45 12/09/23 04:00 Temperature Pulse Rate 66 65 Respiratory Rate Blood Pressure Pulse Oximetry 92 Oxygen Delivery Nasal Cannula Oxygen Flow Rate 2 Fraction of Inspired Oxygen 12/09/23 05:00 12/09/23 07:50 12/09/23 07:50 Temperature 98.1 F Pulse Rate 63 60 Respiratory Rate 16 18 Blood Pressure 147/55 H Pulse Oximetry 95 93 Oxygen Delivery Nasal Cannul
[2023-12-09] MEDS: ONDANSETRON INJ 4 MG/2 ML VIAL IV PUSH (14:57)
[2023-12-09] MEDS: oxyBUTYnin CHLORIDE XL 5 MG TAB.ER.24 10 MG PO (21:37)
[2023-12-09] MEDS: MELATONIN 3 MG TABLET PO (21:39)
[2023-12-10] VITALS (11 sets, daily range): BP systolic 142–149; BP diastolic 51–65; PULSE 51–64; RESP 16–18; TEMP 36.5–36.9; O2SAT 90–94
[2023-12-10] MEDS: LEVOTHYROXINE SODIUM 75 MCG TABLET PO (05:51)
[2023-12-10 06:07] LABS: Basophils Percent Auto 0.2 % (0.2-1.2); Hematocrit 41.5 % (37.0-47.0); Hemoglobin 12.6 g/dL (12.0-15.0); Immature Granulocyte Absolute 0.14 K/mm3 (0.00-0.031); Immature Granulocyte Percent A 1.5 % (0-0.5); Lymphocytes Absolute Auto 0.81 K/mm3 (0.9-3.2); Lymphocytes Percent Auto 8.8 % (18.3-44.2); Mean Corpuscular HGB Conc 30.4 g/dl (32-36); Mean Corpuscular Hemoglobin 27.4 pg (26-34); Mean Corpuscular Volume 90.2 fl (80-100); Mean Platelet Volume 10.5 fl (7.4-10.4); Monocytes Absolute Auto 0.7 K/mm3 (0.1-0.6); Monocytes Percent Auto 7.6 % (2.6-8.5); Neutrophils Absolute Auto 7.6 K/mm3 (1.3-6.7); Neutrophils Percent Auto 81.9 % (45.5-73.1); Platelet Count Result 213 k/mm3 (150-375); White Blood Count 9.3 K/mm3 (4.5-10.0)
[2023-12-10 06:23] LABS: Anion Gap 3 mmol/L (8-16); Blood Urea Nitrogen 42 mg/dL (7-17); Calcium 8.2 mg/dL (8.4-10.2); Carbon Dioxide 29 mmol/L (22-30); Chloride 107 mmol/L (98-107); Estimated CRCL calculation 31 ml/min; Estimated Glomerular Filt Rate 31; Glucose 118 mg/dL (65-110); Potassium 4.7 mmol/L (3.4-5.0); Sodium 139 mmol/L (137-145)
[2023-12-10] MEDS: ALBUTEROL SULFATE (*SP) AEROSOL 1 PUFF 2 PUFF INHALATION ×4 (08:05→20:41)
--- NOTE | 2023-12-10 08:57 | PM.IMPN ---
Progress Note: A&P Assessment and Plan (1) Pneumonia due to 2019-nCoV: Code(s): U07.1 - COVID-19; J12.82 - Pneumonia due to coronavirus disease 2019 Status: Acute Assessment and Plan: failed outpatient AB treatment within the last month, patient does not know which medications she was on other than steroid taper respiratory panel covid+ CXR showed mild airspace opacities in bilateral mid and lower lung zones which could represent pneumonia or less likely mild pulmonary edema. Was on Rocephin and Zithromax IV switched to oral Cefdinir and Azithromycin today. Continue IV decadron 6mg daily BC cultures showing no growth on preliminary supportive care oxygen as needed Continue albuterol nebs (2) Hypoxia: Code(s): R09.02 - Hypoxemia Status: Acute Assessment and Plan: Currently on room air, patient was weaned off of the 1 L nasal cannula this morning Continue to monitor for any hypoxia (3) Stage 3b chronic kidney disease: Code(s): N18.32 - Chronic kidney disease, stage 3b Status: Chronic Assessment and Plan: BUN and creatinine 42/1.60 will continue to trend and monitor avoiding fluids as she has CHF history (4) COPD exacerbation: Code(s): J44.1 - Chronic obstructive pulmonary disease with (acute) exacerbation Status: Chronic Assessment and Plan: IV dexamethasone 6mg daily Continue albuterol nebs supplemental oxygen as needed (5) GERD (gastroesophageal reflux disease): Code(s): K21.9 - Gastro-esophageal reflux disease without esophagitis Status: Chronic Assessment and Plan: Continue PPI (6) NICOLA on CPAP: Code(s): G47.33 - Obstructive sleep apnea (adult) (pediatric); Z99.89 - Dependence on other enabling machines and devices Status: Acute Assessment and Plan: CPAP ordered (7) Morbid obesity: Code(s): E66.01 - Morbid (severe) obesity due to excess calories Status: Chronic Assessment and Plan: lifestyle and diet modifications BMI 43.6, 108.1 kg Time Spent With Patient Time with patient: Greater than 35 minutes Subjective Date/time seen: 12/10/23 08:57 Interval history: This is a 78 year old female who presented to the hospital on 12/08/23 with complaints of shortness of breath. Work up in the hospital included a CXR which shown infiltrates and she was positive for COVID. On examination today patient is alert oriented x3, lying in the bed. Vital signs are stable, she is afebrile, she is currently on room air. She denies any fever, chills, nausea, vomiting, diarrhea, abdominal pain, chest pain, shortness a breath. . Labs today revealed a WBC now 9.3 today, BUN of 42, creatinine 1.6, EGFR 31, blood sugars ranging 118-133, calcium 8.2. Blood culture showing no growth on preliminary read. Antibiotics changed to oral azithromycin 500 mg daily and cefdinir 300 mg p.o. q.12 hour. Review of Systems Review of Systems: All systems reviewed & are unremarkable except as noted in HPI and below Constitutional: Constitutional: Reports as per HPI and Reports no additional constitutional complaints Eyes: Eyes: Reports as per HPI and Reports no additional eye complaints ENT: Reports system reviewed and no additional complaints, except as documented and Reports as per HPI Cardiovascular: Cardiovascular: Reports as per HPI and Reports no additional cardiovascular complaints Respiratory: Respiratory: Reports as per HPI and Reports no additional respiratory complaints Gastrointestinal: Gastrointestinal: Reports as per HPI and Reports no additional gastrointestinal complaints Genitourinary: Genitourinary: Reports no additional female genitourinary complaints and Reports as per HPI Musculoskeletal: Musculoskeletal: Reports no additional musculoskeletal complaints and Reports as per HPI Integumentary/Breasts: Skin/Breast: Reports system reviewed and no additional complaints, except as docu
[2023-12-10] MEDS: ENOXAPARIN 40 MG/0.4 ML SYRINGE SUB-Q (09:27)
[2023-12-10] MEDS: ISOSORBIDE MONONITRATE 30 MG TAB.ER.24H PO (09:27)
[2023-12-10] MEDS: EMPAGLIFLOZIN 10 MG TABLET PO (09:27)
[2023-12-10] MEDS: amLODIPine BESYLATE 5 MG TABLET PO (09:27)
[2023-12-10] MEDS: PREGABALIN (*CRX) 50 MG CAPSULE 200 MG PO ×2 (09:27→16:51)
[2023-12-10] MEDS: MAGNESIUM OXIDE 400 MG TABLET PO ×2 (14:41→20:41)
--- NOTE | 2023-12-10 15:02 | PC.NURSE ---
Addendum entered by Abigail Matthew RN 12/10/23 17:40: Patient states she will have someone bring her vortioxetine from home. Original Note: Patient in bed for morning assessment. Her NC was off and she her O2 was 95%. I told her as long as her vital remained good we would leave it off. RT confirmed 94-96% on RA. Patient has been resting comfortably throughout the day. No complaints or needs at this time.
[2023-12-10] MEDS: CEFDINIR 300 MG CAPSULE PO (20:29)
[2023-12-10] MEDS: oxyBUTYnin CHLORIDE XL 5 MG TAB.ER.24 10 MG PO (20:30)
[2023-12-10] MEDS: MELATONIN 3 MG TABLET PO (20:30)
[2023-12-11] VITALS: PULSE 51
[2023-12-11 04:00] VITALS: PULSE 50
[2023-12-11 04:03] VITALS: O2SAT 93
[2023-12-11 04:51] VITALS: BP 137/52; PULSE 50; RESP 18; TEMP 36.4; O2SAT 91
[2023-12-11 06:06] LABS: Basophils Absolute Auto 0.1 K/mm3 (0.0-0.1); Basophils Percent Auto 0.7 % (0.2-1.2); Hematocrit 41.8 % (37.0-47.0); Hemoglobin 13.2 g/dL (12.0-15.0); Immature Granulocyte Absolute 0.29 K/mm3 (0.00-0.031); Immature Granulocyte Percent A 4.1 % (0-0.5); Lymphocytes Absolute Auto 0.94 K/mm3 (0.9-3.2); Lymphocytes Percent Auto 13.4 % (18.3-44.2); Mean Corpuscular HGB Conc 31.6 g/dl (32-36); Mean Corpuscular Hemoglobin 27.6 pg (26-34); Mean Corpuscular Volume 87.4 fl (80-100); Mean Platelet Volume 10.3 fl (7.4-10.4); Monocytes Absolute Auto 0.8 K/mm3 (0.1-0.6); Neutrophils Absolute Auto 4.9 K/mm3 (1.3-6.7); Neutrophils Percent Auto 70.8 % (45.5-73.1); Platelet Count Result 228 k/mm3 (150-375); Red Blood Count 4.78 M/mm3 (4.2-5.4); Red Cell Distribution Width 13.8 % (11.5-14.5)
[2023-12-11 06:18] LABS: Alanine Aminotransferase 15 U/L (6-35); Albumin Level 3.5 g/dL (3.5-5.1); Alkaline Phosphatase 60 U/L (38-126); Anion Gap 4 mmol/L (8-16); Aspartate Amino Transferase 22 U/L (14-36); Bilirubin,Total 0.6 mg/dL (0.2-1.3); Blood Urea Nitrogen 40 mg/dL (7-17); Calcium 8.8 mg/dL (8.4-10.2); Carbon Dioxide 28 mmol/L (22-30); Chloride 105 mmol/L (98-107); Estimated CRCL calculation 38 ml/min; Estimated Glomerular Filt Rate 40; Glucose 119 mg/dL (65-110); Sodium 137 mmol/L (137-145)
[2023-12-11] MEDS: LEVOTHYROXINE SODIUM 75 MCG TABLET PO (06:20)
[2023-12-11 07:56] VITALS: PULSE 51; RESP 18; O2SAT 92
[2023-12-11] MEDS: ALBUTEROL SULFATE (*SP) AEROSOL 1 PUFF 2 PUFF INHALATION ×2 (07:56→11:32)
[2023-12-11] MEDS: amLODIPine BESYLATE 5 MG TABLET PO (08:15)
[2023-12-11] MEDS: EMPAGLIFLOZIN 10 MG TABLET PO (08:15)
[2023-12-11] MEDS: PREGABALIN (*CRX) 50 MG CAPSULE 200 MG PO (08:15)
[2023-12-11] MEDS: CEFDINIR 300 MG CAPSULE PO (08:15)
[2023-12-11] MEDS: ISOSORBIDE MONONITRATE 30 MG TAB.ER.24H PO (08:15)
[2023-12-11] MEDS: AZITHROMYCIN 250 MG TABLET 500 MG PO (08:16)
[2023-12-11] MEDS: ENOXAPARIN 40 MG/0.4 ML SYRINGE SUB-Q (08:16)
[2023-12-11 08:25] VITALS: PULSE 47
[2023-12-11] MEDS: MAGNESIUM OXIDE 400 MG TABLET PO (11:12)
--- NOTE | 2023-12-11 13:21 | PM.DS ---
DS: Admitting Diagnosis Discharge Date 12/11/23 Admitting Diagnosis SOB DS: Discharge Diagnosis Discharge Diagnosis (1) Pneumonia due to 2019-nCoV: Code(s): U07.1 - COVID-19; J12.82 - Pneumonia due to coronavirus disease 2019 Status: Acute Assessment and Plan: failed outpatient AB treatment within the last month, patient does not know which medications she was on other than steroid taper respiratory panel covid+ CXR showed mild airspace opacities in bilateral mid and lower lung zones which could represent pneumonia or less likely mild pulmonary edema. PO Cefdinir and Azithromycin PO dexamethasone BC cultures showing no growth to date Continue albuterol nebs (2) Hypoxia: Code(s): R09.02 - Hypoxemia Status: Resolved (3) Stage 3b chronic kidney disease: Code(s): N18.32 - Chronic kidney disease, stage 3b Status: Chronic Assessment and Plan: BUN and creatinine 40/1.30 (4) COPD exacerbation: Code(s): J44.1 - Chronic obstructive pulmonary disease with (acute) exacerbation Status: Chronic Assessment and Plan: po dexamethasone 6mg daily for full 10 day Continue albuterol (5) GERD (gastroesophageal reflux disease): Code(s): K21.9 - Gastro-esophageal reflux disease without esophagitis Status: Chronic Assessment and Plan: Continue PPI (6) NICOLA on CPAP: Code(s): G47.33 - Obstructive sleep apnea (adult) (pediatric); Z99.89 - Dependence on other enabling machines and devices Status: Acute Assessment and Plan: CPAP ordered (7) Morbid obesity: Code(s): E66.01 - Morbid (severe) obesity due to excess calories Status: Chronic Assessment and Plan: lifestyle and diet modifications BMI 43.6, 108.1 kg DS: Summary Hospital Course Hospital Course: Patient is a 78 YO female who presented to the hospital on 12/08/23 with complaints of shortness of breath. Work up in the hospital included a CXR which shown infiltrates and she was positive for COVID. Vital signs are stable, she is afebrile, she is currently on room air. She denies any fever, chills, nausea, vomiting, diarrhea, abdominal pain, chest pain, shortness a breath. Labs are stable. Blood culture showing no growth on preliminary read. Antibiotics transitioned to oral azithromycin 500 mg daily and cefdinir 300 mg p.o. q.12 hour. Will finish 10 day course of steroids PO. She is stable for d/c home today. Status at Discharge Functional status at discharge: independent ambulation Overall status at discharge: patient is progressing back to baseline Time Spent with Patient Time attestation: Total time spent providing and/or coordinating discharge services: Exam Narrative: General: obese, in no acute distress Head: atraumatic, no encephalopathy Eyes: EOMI, PERRLA ENT: moist mucous membranes Neck: supple Cardiac: Normal S1 and S2. No murmur, gallops or friction rubs, peripheral pulses intact. Respiratory: Lungs sounds clear, with mild expiratory wheezing noted bilaterally, currently on room air Gastrointestinal: soft, non-distended, non-tender, normoactive bowel sounds Extremities: moves all extremities well, no edema Skin: clean, dry, intact. No wounds or lesions. Neuro: Alert and oriented x4, cranial nerves intact, no neuro deficits. Psych: normal mood, normal affect DS: Data Data Completed and Pending Labs on day of discharge: Labs from last 24 hours 12/11/23 05:48 WBC 7.0 RBC 4.78 Hgb 13.2 Hct 41.8 MCV 87.4 MCH 27.6 MCHC 31.6 L RDW 13.8 Plt Count 228 MPV 10.3 Immature Gran % (Auto) 4.1 H Neut % (Auto) 70.8 Lymph % (Auto) 13.4 L Monroe % (Auto) 11.0 H Eos % (Auto) 0.0 Baso % (Auto) 0.7 Lymph # (Auto) 0.94 [place] # (Auto) 0.8 H Eos # (Auto) 0.0 Baso # (Auto) 0.1 Abs Immat Gran (auto) 0.29 H Absolute Neuts (auto) 4.9 Absolute Nucleated RBC 0.0 Nucleated RBC % 0.0 Sodium 137 Potassium 5.0 C
--- NOTE | 2023-12-13 10:36 | PC.NURSE ---
Blood cx are negative.
== END 2023-12-11 11:40 | disposition home or self-care (01) | DRG 177 ==
LOC: ANHED 18:02 → ANH2MED 22:02
PROVIDERS: Nurse Practitioner Acute Care; Physician Assistant; Admitting Provider Internal Medicine; Emergency Provider Emergency Medicine; PCP Family Medicine; Visit Provider Nurse Practitioner
DX: U07.1 COVID-19 (principal); J12.82 Pneumonia due to coronavirus disease 2019; J44.1 Chronic obstructive pulmonary disease with (acute) exacerbation; J44.0 Chronic obstructive pulmonary disease with (acute) lower respiratory infection; Z68.41 Body mass index [BMI] 40.0-44.9, adult; I13.0 Hypertensive heart and chronic kidney disease with heart failure and stage 1 through stage 4 chronic kidney disease, or unspecified chronic kidney disease; E11.22 Type 2 diabetes mellitus with diabetic chronic kidney disease; N18.32 Chronic kidney disease, stage 3b; R09.02 Hypoxemia; K21.9 Gastro-esophageal reflux disease without esophagitis; G47.33 Obstructive sleep apnea (adult) (pediatric); E66.01 Morbid (severe) obesity due to excess calories; M19.90 Unspecified osteoarthritis, unspecified site; G25.81 Restless legs syndrome; E03.9 Hypothyroidism, unspecified; I50.9 Heart failure, unspecified; E78.5 Hyperlipidemia, unspecified; K44.9 Diaphragmatic hernia without obstruction or gangrene; Z90.49 Acquired absence of other specified parts of digestive tract; Z90.710 Acquired absence of both cervix and uterus; Z87.891 Personal history of nicotine dependence
CPT/HCPCS: 36415; 71045; 71046; 80048; 80053; 81001; 83605; 83690; 84145; 84484; 85025; 85610; 85730; 86140; 87040; 87637; 93005; 94640; 96374; 96375; 97161; 97165; 99285; A9270; G0378; J0456; J0696; J1100; J1650; J2060; J2405

== ENCOUNTER 2023-12-19 12:11 | Outpatient (CLI) | payer MEDICARE, MEDICAID, SELFPAY ==
--- NOTE | ~2023-12-19 | CT_ITS ---
CT Scan of the Chest without Contrast: Clinical Indication: Chronic cough Technique: Contiguous sections were acquired throughout the chest without intravenous contrast. Dose reduction technique was used on this scan by utilizing automated exposure control and iterative recon struction technique. The dose-length product (DLP) was 887.81 mGy-cm. COMPARISON: 09/20/2022 Findings: There is no evidence of any significant mediastinal, hilar or axillary lymphadenopathy. There are ath erosclerotic calcifications of the aorta and coronary arteries. There is no evidence of pleural or pericardial effusion. There are mild patchy groundglass opacities bilaterally. Images through the upper abdomen reveal no abnormalities. Impression: Mild patchy groundglass opacities bilaterally. Consider Covid 19 pneumonia or other atypical infectio us/inflammatory process. Reviewed, dictated and finalized at [facility]. P Impression: Mild patchy groundglass opacities bilaterally. Consider Covid 19 pneumonia or o ther atypical infectious/inflammatory process.
== END 2023-12-19 12:12 | disposition home or self-care (01) ==
LOC: ANHIMG 12:14
PROVIDERS: PCP Family Medicine; Visit Provider Nurse Practitioner Family
DX: J47.9 Bronchiectasis, uncomplicated (principal); R05.3 Chronic cough; R06.09 Other forms of dyspnea; R94.2 Abnormal results of pulmonary function studies
CPT/HCPCS: 71250

== ENCOUNTER 2023-12-19 15:03 | Emergency (ER) | payer MEDICARE, MEDICAID, SELFPAY ==
[2023-12-19 15:24] VITALS: BP 148/74; PULSE 61; RESP 24; TEMP 36.2; O2SAT 97
--- NOTE | 2023-12-19 16:07 | ED.URI ---
HPI - URI/Sore Throat General Chief Complaint: Upper Respiratory Infection Stated Complaint: SOB/Sore Throat Time Seen by Provider: 12/19/23 16:07 Source: patient and RN notes reviewed Mode of arrival: ambulatory Limitations: no limitations History of Present Illness HPI Narrative: 78-year-old female with history of COPD and recent COVID pneumonia presents with concern for general malaise, sore throat, ear pain, cough. She was released from the hospital 8 days ago in finished a 6 day course of Decadron, azithromycin and cefdinir. She reports she does not feel any better. She had an outpatient chest CT scheduled today that she had done prior to arrival at Urgent Care MD elicited complaint: cough and sore throat Related Data Home Medications Medication Instructions Recorded Confirmed amlodipine 5 mg tablet 5 mg PO DAILY 09/21/22 12/19/23 ergocalciferol (vitamin D2) 1,250 1,250 mcg PO WEEKLY 09/21/22 12/19/23 mcg (50,000 unit) capsule oxybutynin chloride 10 mg 10 mg PO HS 09/21/22 12/19/23 tablet,extended release 24 hr isosorbide mononitrate 30 mg 30 mg PO DAILY 09/15/23 12/19/23 tablet,extended release 24 hr magnesium oxide 400 mg PO BID 09/15/23 12/19/23 pregabalin 200 mg capsule 200 mg PO BID 09/15/23 12/19/23 rosuvastatin 10 mg tablet 10 mg PO DAILY 09/15/23 12/19/23 vortioxetine 20 mg tablet 20 mg PO DAILY 09/15/23 12/19/23 (Trintellix) hydrocodone 10 mg-acetaminophen 1 tablet PO Q8H PRN PAIN 11/16/23 12/19/23 325 mg tablet dapagliflozin propanediol 5 mg 5 mg PO DAILY 12/07/23 12/19/23 tablet (Farxiga) furosemide 20 mg tablet 20 mg PO DAILY 12/07/23 12/19/23 Allergies Allergy/AdvReac Type Severity Reaction Status Date / Time NILTON Inhibitors Allergy Unknown Angioedema Verified 12/19/23 15:20 Review of Systems Review of Systems: CONSTITUTIONAL: Reports malaise. Denies chills, sweats, or fever. EYES: Denies visual changes, redness, or discharge. ENT: Denies rhinorrhea, congestion, sinus pain. Reports otalgia and sore throat. CARDIOVASCULAR: Denies chest pain, palpitations, or edema. RESPIRATORY: Reports cough, exertion dyspnea. MUSCULOSKELETAL: Denies myalgia. NEUROLOGIC: Denies headache. All systems reviewed & are unremarkable except as noted in HPI and below PMFSH Past Medical History Medical History Anxiety Arthritis Asthma Bronchitis Carpal tunnel syndrome CHF (congestive heart failure) Chronic kidney disease Chronic obstructive pulmonary disease Depression Diabetes GERD (gastroesophageal reflux disease) Hiatal hernia HLD (hyperlipidemia) HTN (hypertension) Hypothyroidism Kidney stones NICOLA (obstructive sleep apnea) Pneumonia Renal disease RLS (restless legs syndrome) Surgical History Surgical History History of carpal tunnel release Hx of cholecystectomy Hx of elbow surgery bilateral ulnar release Hx of hysterectomy Hx of spinal surgery Family History Family History Father Hypertension Family history of malignant neoplasm of brain Family history of heart disease in male family member before age 55 Mother Family history of diabetes mellitus in first degree relative Family history of heart disease in male family member before age 55 Social History Social History Social History: Surrogate medical decision maker: Neena Hazel, granddaughter. Code status: Full code. Smoking packs per day: 1 Smoking cigarettes per day: 20.0 Years smoked: 50 Smoking pack-years: 50.00 Smoking status: Former smoker Alcohol intake: never Substance use: never Substance use type: does not use Do You Feel Safe in your Home?: Yes Lack of Transportation: No Lack of Food: Never True Current Housing: I Have Housing Concerned About Future Housing:
== END 2023-12-19 16:40 | disposition home or self-care (01) ==
PROVIDERS: Emergency Provider Nurse Practitioner; PCP Family Medicine
DX: J06.9 Acute upper respiratory infection, unspecified (principal); R05.9 Cough, unspecified; Z87.891 Personal history of nicotine dependence; J44.9 Chronic obstructive pulmonary disease, unspecified; I13.0 Hypertensive heart and chronic kidney disease with heart failure and stage 1 through stage 4 chronic kidney disease, or unspecified chronic kidney disease; E11.22 Type 2 diabetes mellitus with diabetic chronic kidney disease; N18.9 Chronic kidney disease, unspecified; I50.9 Heart failure, unspecified; M19.90 Unspecified osteoarthritis, unspecified site; K21.9 Gastro-esophageal reflux disease without esophagitis; E78.5 Hyperlipidemia, unspecified; E03.9 Hypothyroidism, unspecified; G25.81 Restless legs syndrome
CPT/HCPCS: 87081; 87880; 99213; G0463

== ENCOUNTER 2023-12-22 18:31 | Emergency (ER) | payer MEDICARE, MEDICAID, SELFPAY ==
[2023-12-22 19:01] VITALS: BP 142/51; PULSE 85; RESP 20; TEMP 36.6; O2SAT 95
[2023-12-22 19:41] VITALS: BP 142/56; PULSE 80; RESP 15; O2SAT 96
[2023-12-22 20:39] VITALS: BP 116/94; PULSE 84; RESP 18; O2SAT 96
[2023-12-22] MEDS: SODIUM CHLORIDE 0.9% IV 1,000 ML 999 ML IV CONT (20:39)
[2023-12-22 20:49] LABS: Basophils Percent Auto 0.3 % (0.2-1.2); Eosinophils Absolute Auto 0.2 K/mm3 (0-0.3); Eosinophils Percent Auto 1.3 % (0-4.4); Hematocrit 41.2 % (37.0-47.0); Hemoglobin 12.9 g/dL (12.0-15.0); Immature Granulocyte Absolute 0.07 K/mm3 (0.00-0.031); Immature Granulocyte Percent A 0.6 % (0-0.5); Lymphocytes Absolute Auto 1.46 K/mm3 (0.9-3.2); Lymphocytes Percent Auto 12.2 % (18.3-44.2); Mean Corpuscular HGB Conc 31.3 g/dl (32-36); Mean Corpuscular Hemoglobin 27.6 pg (26-34); Mean Platelet Volume 10.6 fl (7.4-10.4); Monocytes Absolute Auto 1.3 K/mm3 (0.1-0.6); Monocytes Percent Auto 10.7 % (2.6-8.5); Neutrophils Percent Auto 74.9 % (45.5-73.1); Platelet Count Result 206 k/mm3 (150-375); Red Blood Count 4.68 M/mm3 (4.2-5.4); Red Cell Distribution Width 14.6 % (11.5-14.5)
--- NOTE | 2023-12-22 20:53 | ED.GENADULT ---
HPI - General Adult General Chief complaint: Extremity Injury, Lower Stated complaint: pain in bilateral legs Time Seen by Provider: 12/22/23 20:12 History of Present Illness HPI narrative: Patient is a 78 year old female who presents to the emergency department this evening complaining of bilateral lower extremity muscle spasms. Patient describes him as edwina horses that involve her bilateral casts. Patient states that she has had similar symptoms in the past but within the past 2 days her spasms have increased and have been painful. Patient denies any additional symptoms including chest pain or shortness of breath, denies any nausea, vomiting, abdominal pain, dysuria or hematuria, constipation, diarrhea, melena or hematochezia, fevers or chills. Patient also denies any focal weakness, numbness and tingling. There are no other modifying, alleviating, or precipitating factors at this time. Related Data Allergies Allergy/AdvReac Type Severity Reaction Status Date / Time NA Allergy Uncoded 02/19/09 13:02 Review of Systems Review of Systems: All systems are reviewed and are negative unless stated otherwise in the HPI. PMFSH Comments Denies any tobacco use, alcohol abuse or illicit drug use. Denies any significant family history. Exam Narrative: General: Alert, awake, afebrile, in no acute distress. HEENT: PERRL, no rhinorrhea, no post nasal drip, oropharynx clear. Neck: Trachea midline, no JVD, no lymphadenopathy. Cardiovascular: Regular rate and rhythm, no murmurs, rubs or gallops, no peripheral edema. Respiratory: Clear to auscultation bilaterally, no tachypnea, no wheezing, no rhonchi, no rubs, no respiratory distress. Abdomen: Soft, nontender, nondistended, no rebound, no guarding, no peritoneal signs. Musculoskeletal: No joint swelling or deformity, normal muscle tone. Skin: No rashes or petechia, no signs of infection. Psychiatric: Alert and oriented, normal behavior and judgment for situation. Neurological: Alert and oriented to person, place, and time. Follows all commands. No focal deficits, speech is clear and fluent. Course Vital Signs Vital signs: Vital Signs Temperature 97.8 F 12/22/23 19: Pulse Rate 85 12/22/23 19:01 Respiratory Rate 20 12/22/23 19: Blood Pressure 142/51 H 12/22/23 19:01 Pulse Oximetry 95 12/22/23 19:01 Oxygen Delivery Room Air 12/22/23 19:01 Temperature 97.8 F 12/22/23 19:01 Pulse Rate 82 12/22/23 21:27 Respiratory Rate 15 12/22/23 21:27 Blood Pressure 128/50 L 12/22/23 21:27 Pulse Oximetry 100 12/22/23 21:27 Oxygen Delivery Room Air 12/22/23 19:01 Medical Decision Making MDM Narrative Medical decision making narrative: The patient was evaluated by myself in the emergency department. History is obtained from patient who is an independent historian and physical exam was performed. External medical records were reviewed at this time. IV was established and pertinent tests were ordered. Patient was administered a 1 L fluid bolus of normal saline. Laboratory results obtained revealing no acute process Differential diagnosis considerations include muscle spasms, electrolyte derangements and dehydration. Comorbidities impacting this visit include none. I have evaluated and discussed social determinants of health with the patient that could potentially impact subsequent diagnosis and treatment plans. On repeat assessment of the patient, reevaluation revealed that the patient is doing well and is in no acute distress. Patient symptoms have improved since she arrived to our emergency department. Repeat vital signs were all reviewed and noted to be stable. Differential diagnosis and treatment plan were discussed with the patient at bedside. Patient agrees with discussion and after shared medical decision making agrees with discharge. All questions were answered to the patient's satisfaction. Patient will follow up with her PCP
[2023-12-22 21:04] LABS: Alanine Aminotransferase 20 U/L (6-35); Albumin Level 3.6 g/dL (3.5-5.1); Alkaline Phosphatase 63 U/L (38-126); Anion Gap 3 mmol/L (8-16); Aspartate Amino Transferase 29 U/L (14-36); Blood Urea Nitrogen 22 mg/dL (7-17); Calcium 8.8 mg/dL (8.4-10.2); Carbon Dioxide 31 mmol/L (22-30); Chloride 102 mmol/L (98-107); Creatine Kinase 88 U/L (30-135); Estimated CRCL calculation 33 ml/min; Estimated Glomerular Filt Rate 34; Glucose 98 mg/dL (65-110); Magnesium 1.8 mg/dL (1.6-2.3); Potassium 4.3 mmol/L (3.4-5.0); Sodium 136 mmol/L (137-145)
[2023-12-22 21:27] VITALS: BP 128/50; PULSE 82; RESP 15; O2SAT 100
[2023-12-22 22:05] VITALS: BP 122/74; PULSE 81; RESP 16; O2SAT 100
== END 2023-12-22 22:06 | disposition home or self-care (01) ==
PROVIDERS: Emergency Provider Emergency Medicine; PCP Family Medicine
DX: M62.831 Muscle spasm of calf (principal); M79.662 Pain in left lower leg; M79.661 Pain in right lower leg
CPT/HCPCS: 36415; 80053; 82550; 83735; 85025; 96360; 96361; 99283; J7030

== ENCOUNTER 2024-01-12 08:33 | Emergency (ER) | payer MEDICARE, MEDICAID, SELFPAY ==
[2024-01-12 08:35] VITALS: BP 150/61; PULSE 85; RESP 20; TEMP 36.4; O2SAT 93
--- NOTE | 2024-01-12 08:55 | PC.NURSE ---
PT GOT UP FROM WAITING ROOM AND AMBULATED FROM THE ED WITH NO ASSISTANCE. WHEN ASKED WHERE SHE WAS GOING THE PT WAVED AND CONTINUED TO WALK. APPEARED IN NO ACUTE DISTRESS.
== END 2024-01-12 09:13 | disposition left against medical advice (07) ==
PROVIDERS: PCP Family Medicine
DX: R06.02 Shortness of breath (principal)
CPT/HCPCS: 99199

== ENCOUNTER 2024-01-17 10:37 | Outpatient (CLI) | payer MEDICARE, MEDICAID, SELFPAY ==
--- NOTE | ~2024-01-17 | XR_ITS ---
Clinical Indication: Shortness of breath PA and lateral views of the chest: Comparison: 12/10/2023 Findings: The lungs are clear, without evidence of focal consolidation or pleural effusion. Cardiome diastinal silhouette is within normal limits. Bones and soft tissues are unremarkable. Impression: Normal chest. Reviewed, dictated and finalized at location . Impression: Normal chest.
[2024-01-17 11:34] LABS: Basophils Absolute Auto 0.1 K/mm3 (0.0-0.1); Basophils Percent Auto 1.1 % (0.2-1.2); Eosinophils Absolute Auto 0.1 K/mm3 (0-0.3); Hematocrit 44.1 % (37.0-47.0); Hemoglobin 13.1 g/dL (12.0-15.0); Immature Granulocyte Absolute 0.04 K/mm3 (0.00-0.031); Immature Granulocyte Percent A 0.6 % (0-0.5); Lymphocytes Absolute Auto 1.71 K/mm3 (0.9-3.2); Lymphocytes Percent Auto 24.1 % (18.3-44.2); Mean Corpuscular HGB Conc 29.7 g/dl (32-36); Mean Corpuscular Hemoglobin 27.3 pg (26-34); Mean Corpuscular Volume 91.9 fl (80-100); Mean Platelet Volume 10.6 fl (7.4-10.4); Monocytes Absolute Auto 0.9 K/mm3 (0.1-0.6); Monocytes Percent Auto 12.5 % (2.6-8.5); Neutrophils Absolute Auto 4.2 K/mm3 (1.3-6.7); Neutrophils Percent Auto 59.7 % (45.5-73.1); Platelet Count Result 241 k/mm3 (150-375); White Blood Count 7.1 K/mm3 (4.5-10.0)
[2024-01-17 11:45] LABS: Alanine Aminotransferase 16 U/L (6-35); Albumin Level 4.1 g/dL (3.5-5.1); Anion Gap 3 mmol/L (8-16); Aspartate Amino Transferase 28 U/L (14-36); Bilirubin,Total 0.8 mg/dL (0.2-1.3); Blood Urea Nitrogen 21 mg/dL (7-17); Calcium 9.6 mg/dL (8.4-10.2); Carbon Dioxide 30 mmol/L (22-30); Chloride 110 mmol/L (98-107); Estimated Glomerular Filt Rate 31; Glucose 92 mg/dL (65-110); Sodium 143 mmol/L (137-145)
[2024-01-17 11:46] LABS: Alkaline Phosphatase 71 U/L (38-126)
[2024-01-17 12:49] LABS: Hemoglobin A1C 6.2 % (<5.7)
== END 2024-01-17 10:38 | disposition home or self-care (01) ==
PROVIDERS: PCP Family Medicine; Visit Provider Nurse Practitioner Family
DX: J44.9 Chronic obstructive pulmonary disease, unspecified (principal); J12.82 Pneumonia due to coronavirus disease 2019; R73.01 Impaired fasting glucose; I10 Essential (primary) hypertension
CPT/HCPCS: 36415; 71046; 80053; 83036; 85025

== ENCOUNTER 2024-02-29 11:21 | Outpatient (CLI) | payer MEDICARE, MEDICAID, SELFPAY ==
[2024-02-29 12:03] LABS: Albumin Level 4.5 g/dL (3.5-5.1); Anion Gap 7 mmol/L (4-12); Blood Urea Nitrogen 22 mg/dL (7-17); Calcium 9.7 mg/dL (8.4-10.2); Carbon Dioxide 29 mmol/L (22-30); Chloride 106 mmol/L (98-107); Estimated Glomerular Filt Rate 27; Glucose 100 mg/dL (65-110); Phosphorus 4.4 mg/dL (2.5-4.5); Potassium 4.4 mmol/L (3.4-5.0); Sodium 142 mmol/L (137-145)
[2024-02-29 12:05] LABS: Creatinine Urine 81.2 mg/dL; Total Protein Urine Random 36 mg/dL; Ur Ttl Prot Creatinine Ratio 0.44 mg/mg (0-0.20)
[2024-02-29 12:15] LABS: Parathyroid Intact 16.9 pg/mL (7.5-53.5)
[2024-02-29 12:53] LABS: Vitamin D 25 Hydroxy 58.1 ng/mL
== END 2024-02-29 11:22 | disposition home or self-care (01) ==
LOC: ANHLAB 11:24
PROVIDERS: PCP Family Medicine; Visit Provider Internal Medicine Nephrology
DX: I12.9 Hypertensive chronic kidney disease with stage 1 through stage 4 chronic kidney disease, or unspecified chronic kidney disease (principal); N18.32 Chronic kidney disease, stage 3b; E55.9 Vitamin D deficiency, unspecified; N25.81 Secondary hyperparathyroidism of renal origin
CPT/HCPCS: 36415; 80069; 82306; 82570; 83970; 84156

== ENCOUNTER 2024-03-05 10:21 | Outpatient (CLI) | payer MEDICARE, MEDICAID, SELFPAY ==
--- NOTE | ~2024-03-05 | CT_ITS ---
CT Scan of the Chest without Contrast: Clinical Indication: Pneumonia, COPD Technique: Contiguous sections were acquired throughout the chest without intravenous contrast. Dose reduction technique was used on this scan by utilizing automated exposure control and iterative recon struction technique. The dose-length product (DLP) was 685.09 mGy-cm. COMPARISON: 12/19/2023 Findings: There is no evidence of any significant mediastinal, hilar or axillary lymphadenopathy. There are ext ensive atherosclerotic calcifications of the aorta and coronary arteries. There is no evidence of pleural or pericardial effusion. There is mild subpleural reticulation and minimal interstitial thickening bilaterally in the upper lo bes. Images through the upper abdomen reveal no abnormalities. Impression: Minimal chronic interstitial changes, predominantly in the upper lobes. Reviewed, dictated and finalized at location . Impression: Minimal chronic interstitial changes, predominantly in the upper lobes.
== END 2024-03-05 10:22 ==
PROVIDERS: PCP Family Medicine; Visit Provider Internal Medicine Pulmonary Disease
DX: U07.1 COVID-19 (principal); J12.82 Pneumonia due to coronavirus disease 2019; J44.9 Chronic obstructive pulmonary disease, unspecified; J84.9 Interstitial pulmonary disease, unspecified
CPT/HCPCS: 71250

== ENCOUNTER 2024-03-05 10:26 | Outpatient (CLI) | payer MEDICARE, MEDICAID, SELFPAY ==
--- NOTE | ~2024-03-05 | CT_ITS ---
Non-contrast CT scan of the Abdomen and Pelvis Clinical indication: Adrenal hyperplasia Technique: 2.5 mm axial scans were obtained through the abdomen and pelvis without intravenous or or al contrast. Dose reduction technique was used on this scan by utilizing automated exposure control a nd iterative reconstruction technique. The dose-length product (DLP) was 1052.11 mGy-cm. COMPARISON: 11/22/2020 Findings: Images through the lung bases reveal no abnormalities. There is no evidence of renal or ureteral calculi. The kidneys and the ureters are nondilated. Probab le small hyperdense left renal cysts. The liver, spleen, pancreas, and adrenals appear normal. Cholecystectomy clips are present. There are atherosclerotic calcifications of the aorta. There is no evidence of bowel obstruction. Images through the pelvis were performed. There is no evidence of ascites or lymphadenopathy. Urinary bladder unremarkable. No pelvic mass seen. Impression: Normal adrenal glands. Probable small hyperdense left renal cysts, similar to prior exam. Reviewed, dictated and finalized at [facility]. Impression: Normal adrenal glands. Probable small hyperdense left renal cysts, similar to prior exam.
== END 2024-03-05 10:27 ==
PROVIDERS: PCP Family Medicine; Visit Provider Internal Medicine
DX: G47.33 Obstructive sleep apnea (adult) (pediatric) (principal); N18.4 Chronic kidney disease, stage 4 (severe); N25.81 Secondary hyperparathyroidism of renal origin; R63.5 Abnormal weight gain; R73.03 Prediabetes; Z99.89 Dependence on other enabling machines and devices; U07.1 COVID-19; J12.82 Pneumonia due to coronavirus disease 2019
CPT/HCPCS: 74176

== ENCOUNTER 2024-03-20 10:57 | Outpatient (RCR) | payer MEDICARE, MEDICAID, SELFPAY ==
[2024-03-20 12:19] VITALS: PULSE 68
== END 2024-04-20 10:31 | disposition home or self-care (01) ==
LOC: ANHCPREHAB 10:57
PROVIDERS: PCP Family Medicine; Visit Provider Internal Medicine Pulmonary Disease
DX: J44.9 Chronic obstructive pulmonary disease, unspecified (principal)
CPT/HCPCS: 94625

== ENCOUNTER 2024-04-09 12:37 | Outpatient (CLI) | payer MEDICARE, MEDICAID, SELFPAY ==
[2024-04-09 13:00] VITALS: PULSE 63; O2SAT 93
[2024-04-09 13:03] VITALS: PULSE 90; O2SAT 87
[2024-04-09 13:04] VITALS: PULSE 92; O2SAT 91
[2024-04-09 13:15] VITALS: PULSE 61; O2SAT 92
--- NOTE | 2024-04-09 16:09 | HOMEO2EVAL ---
Evaluation was performed at [facility] Home Oxygen Evaluation RC: Home Oxygen (O2) Evaluation Start: 04/09/24 16:06 Freq: Status: Active Protocol: RPE Activity Type Activity Date Activity User E-sign Co-sign Detail Recorded Client Recorded Date Recorded By Document 04/09/24 13:00 OSIRIS [id number] 04/09/24 16:08 OSIRIS Document 04/09/24 13:03 OSIRIS [email or web address] 04/09/24 16:08 OSIRIS Document 04/09/24 13:04 OSIRIS [email or web address] 04/09/24 16:08 OSIRIS Document 04/09/24 13:15 OSIRIS [email or web address] 04/09/24 16:08 OSIRIS 04/09/24 04/09/24 04/09/24 13:00 13:03 13:04 Home O2 Evaluation [Oxygen] -Test Phase Resting Exercise Exercise -Oxygen Delivery Room Air Room Air Nasal Cannula -Oxygen Flow Rate (L/min) 2 [Pulse Oximetry] -Pulse Oximetry (90-100 %) 93 87 L 91 [Pulse Rate] -Pulse Rate (60-100 beats/min) 63 90 92 [Comments] -Home Oxygen Evaluation Comments pT [Charges] -Evaluation Charges O2 Evaluation by Pulmonary 04/09/24 13:15 Home O2 Evaluation [Oxygen] -Test Phase Resting -Oxygen Delivery Room Air -Oxygen Flow Rate (L/min) [Pulse Oximetry] -Pulse Oximetry (90-100 %) 92 [Pulse Rate] -Pulse Rate (60-100 beats/min) 61 [Comments] -Home Oxygen Evaluation Comments [Charges] -Evaluation Charges
--- NOTE | 2024-04-10 12:39 | WPDPFTINT ---
PFT Procedure Performed PFT Procedure Performed Spirometry with Pre/Post Bronchodilator Plethysmography (Lung Vol) Diffusing Cap (DLCO) Flow Vol Loop PFT Interpretation Lung volumes were measured with the body plethysmography method. The mildly diminished lung volumes are related to restrictive respiratory disease. Spirometry showed diminished expiratory flow rates and a normal FEV1 to FVC ratio 70%, indicative of restrictive respiratory disease. Following administration of a bronchodilator there was significant increase in the FEV1. Lung diffusion capacity is within the normal range at 67% predicted. The flow volume loop is unremarkable. In comparison to previous study in October of 2023, the post bronchodilator FVC and FEV1 are each greater by approximately 0.12 L. Impression: Mild restrictive respiratory disease. Lung diffusion capacity within the normal range.
== END 2024-04-09 12:38 | disposition home or self-care (01) ==
LOC: ANHPFT 12:38
PROVIDERS: PCP Family Medicine; Visit Provider Nurse Practitioner Family
DX: U07.1 COVID-19 (principal); J12.82 Pneumonia due to coronavirus disease 2019; J44.9 Chronic obstructive pulmonary disease, unspecified; R94.2 Abnormal results of pulmonary function studies
CPT/HCPCS: 94060; 94618; 94726; 94729

== ENCOUNTER 2024-04-12 13:11 | Outpatient (CLI) | payer MEDICARE, MEDICAID, SELFPAY ==
[2024-04-12 13:59] LABS: Erythrocyte Sedimentation Rate 56 mm/hr (0-20); Rheumatoid Factor 16.6 IU/ML (<12)
[2024-04-12 14:00] LABS: CRP < 0.5 mg/dL (<1.0); Creatine Kinase 321 U/L (30-135)
[2024-04-13 12:43] LABS: Aldolase 9.5 U/L (< OR = 8.1)
[2024-04-13 15:14] LABS: Anti Cyclic Citrullinated Pept <16 UNITS
[2024-04-15 02:58] LABS: ANCA Screen NEGATIVE (NEGATIVE)
[2024-04-18 11:49] LABS: ANA Cascade Screen POSITIVE (NEGATIVE); Chromatin (Nucleosomal) Ab <1.0 NEG AI (<1.0 NEG); Chromatin Antibody Charge YES; DNA (ds) Antibody Charge YES; JO1 Antibody Charge YES; Jo-1 Antibody <1.0 NEG AI (<1.0 NEG); RNP Antibody <1.0 NEG AI (<1.0 NEG); RNP Antibody Charge YES; SCL70 Antibody Charge YES; SSA Antibody Charge YES; SSB Antibody Charge YES; Sjogren's Antibody (SS-B) <1.0 NEG AI (<1.0 NEG); Sm Antibody <1.0 NEG AI (<1.0 NEG); Sm Antibody Charge YES; Sm/RNP Antibody <1.0 NEG AI (<1.0 NEG); Sm/RNP Antibody Charge YES
[2024-04-24 13:44] LABS: Aspergillus fumigatus NEGATIVE (NEGATIVE)
== END 2024-04-12 13:12 | disposition home or self-care (01) ==
LOC: ANHLAB 13:14
PROVIDERS: PCP Family Medicine; Visit Provider Internal Medicine Pulmonary Disease
DX: J98.4 Other disorders of lung (principal); R91.1 Solitary pulmonary nodule; J84.9 Interstitial pulmonary disease, unspecified
CPT/HCPCS: 36415; 82085; 82550; 85652; 86036; 86038; 86140; 86200; 86225; 86235; 86364; 86430

== ENCOUNTER 2024-05-28 15:52 | Emergency (ER) | payer MEDICARE, MEDICAID, SELFPAY ==
--- NOTE | ~2024-05-28 | XR_ITS ---
EXAMINATION: XR chest 2V Exam Date/Time: 05/28/2024 17:15 CDT HISTORY: cough, sob Comparison: 01/17/2024. RESULT: Lines, tubes, and devices: None. Lungs and pleura: Mild streaky and patchy areas of bilateral lower lung airspace disease and mild mi d and lower lung reticular opacities. Cardiomediastinal silhouette: Stable. Other: No acute osseous or upper abdominal finding. IMPRESSION: Lower lung opacities may represent mild edema and/or infection. Reviewed, dictated and finalized at location K.
[2024-05-28 15:56] VITALS: BP 140/96; PULSE 78; RESP 22; TEMP 36.1; O2SAT 94
[2024-05-28 16:19] VITALS: BP 128/52; PULSE 67; PULSE 74; RESP 18; TEMP 36.7; O2SAT 91
[2024-05-28 16:22] VITALS: O2SAT 96
--- NOTE | 2024-05-28 16:23 | ECG_ITS ---
Test Date: 2024-05-28 17:03:28 Measurements Intervals [place] Rate: 56 P: 32 TN: 202 QRS: -33 QRSD: 101 T: 68 QT: 404 QTc: 393 Interpretive Statements SINUS BRADYCARDIA LEFT AXIS DEVIATION BORDERLINE AV CONDUCTION DELAY LOW QRS VOLTAGE IN PRECORDIAL LEADS LEFT VENTRICULAR HYPERTROPHY WITH ST-T CHANGE CONSIDER ANTEROSEPTAL INFARCT, AGE INDETERMINATE BASELINE ARTIFACT- I, II, III, AVR, AVL, AVF, V1-V3 ABNORMAL ECG No previous ECG available for comparison Electronically Signed On 05-28-2024 20:41:34 CDT by Peterson Roque D.O.
[2024-05-28 16:58] LABS: Basophils Absolute Auto 0.1 K/mm3 (0.0-0.1); Basophils Percent Auto 0.8 % (0.2-1.2); Eosinophils Absolute Auto 0.4 K/mm3 (0-0.3); Hematocrit 39.4 % (37.0-47.0); Hemoglobin 12.1 g/dL (12.0-15.0); Immature Granulocyte Absolute 0.02 K/mm3 (0.00-0.031); Immature Granulocyte Percent A 0.3 % (0-0.5); Lymphocytes Absolute Auto 1.65 K/mm3 (0.9-3.2); Lymphocytes Percent Auto 22.2 % (18.3-44.2); Mean Corpuscular HGB Conc 30.7 g/dl (32-36); Mean Corpuscular Volume 87.9 fl (80-100); Mean Platelet Volume 10.4 fl (7.4-10.4); Monocytes Absolute Auto 0.8 K/mm3 (0.1-0.6); Monocytes Percent Auto 10.8 % (2.6-8.5); Neutrophils Absolute Auto 4.5 K/mm3 (1.3-6.7); Neutrophils Percent Auto 60.9 % (45.5-73.1); Platelet Count Result 249 k/mm3 (150-375); Red Blood Count 4.48 M/mm3 (4.2-5.4); Red Cell Distribution Width 14.8 % (11.5-14.5); White Blood Count 7.4 K/mm3 (4.5-10.0)
[2024-05-28 17:09] LABS: Alanine Aminotransferase 15 U/L (6-35); Albumin Level 3.9 g/dL (3.5-5.1); Alkaline Phosphatase 63 U/L (38-126); Anion Gap 7 mmol/L (4-12); Aspartate Amino Transferase 26 U/L (14-36); Bilirubin,Total 0.6 mg/dL (0.2-1.3); Blood Urea Nitrogen 22 mg/dL (7-17); Calcium 8.5 mg/dL (8.4-10.2); Carbon Dioxide 30 mmol/L (22-30); Chloride 102 mmol/L (98-107); Estimated CRCL calculation 32 ml/min; Estimated Glomerular Filt Rate 34; Glucose 150 mg/dL (65-110); Potassium 4.1 mmol/L (3.4-5.0); Sodium 139 mmol/L (137-145)
[2024-05-28 17:12] LABS: Prothrombin Time 13.7 Seconds (11.1-14.7)
[2024-05-28 17:13] LABS: Partial Thromboplastin Time 27.1 Seconds (22.3-36.8)
[2024-05-28 17:19] LABS: NT Pro B Type Natriuretic Pept 249 pg/mL (19.9-100); Troponin I < 0.012 ng/mL (0.000-0.034)
--- NOTE | 2024-05-28 17:33 | ED.SOB ---
HPI - SOB/Dyspnea General Chief Complaint: Shortness of Breath/Dyspnea Stated Complaint: SOB, swelling in hands and feet Time Seen by Provider: 05/28/24 17:11 Source: patient Mode of arrival: ambulatory Limitations: no limitations History of Present Illness HPI Narrative: This is a 78-year-old female that presents to the emergency department for shortness of breath. Worsening over the last couple of days. Reports she recently had a viral infection. Reports cough, congestion, shortness of breath. She has been having worsening difficulty breathing since. She also reports some swelling in her lower extremities. Denies fevers, or chest pain. Related Data Home Medications Medication Instructions Recorded Confirmed amlodipine 5 mg tablet 5 mg PO DAILY 09/21/22 03/14/24 ergocalciferol (vitamin D2) 1,250 1,250 mcg PO WEEKLY 09/21/22 03/14/24 mcg (50,000 unit) capsule oxybutynin chloride 10 mg 10 mg PO HS 09/21/22 03/14/24 tablet,extended release 24 hr magnesium oxide 400 mg PO BID 09/15/23 03/14/24 pregabalin 200 mg capsule 200 mg PO BID 09/15/23 03/14/24 rosuvastatin 10 mg tablet 10 mg PO DAILY 09/15/23 03/14/24 vortioxetine 20 mg tablet 20 mg PO DAILY 09/15/23 03/14/24 (Trintellix) hydrocodone 10 mg-acetaminophen 1 tablet PO Q8H PRN PAIN 11/16/23 03/14/24 325 mg tablet furosemide 20 mg tablet 20 mg PO DAILY 12/07/23 03/14/24 Allergies Allergy/AdvReac Type Severity Reaction Status Date / Time NILTON Inhibitors Allergy Unknown Angioedema Verified 05/28/24 17:51 Review of Systems Review of Systems: CONSTITUTIONAL: Denies fever, ENT: Reports congestion CARDIOVASCULAR: Reports edema. Denies chest pain RESPIRATORY: Reports cough and dyspnea. All systems reviewed & are unremarkable except as noted in HPI and below PMFSH Past Medical History Medical History Anxiety Arthritis Asthma Bronchitis Carpal tunnel syndrome CHF (congestive heart failure) Chronic kidney disease Chronic obstructive pulmonary disease Depression Diabetes GERD (gastroesophageal reflux disease) Hiatal hernia HLD (hyperlipidemia) HTN (hypertension) Hypothyroidism Kidney stones NICOLA (obstructive sleep apnea) Pneumonia Renal disease RLS (restless legs syndrome) Surgical History Surgical History History of carpal tunnel release Hx of cholecystectomy Hx of elbow surgery bilateral ulnar release Hx of hysterectomy Hx of spinal surgery Family History Family History (Updated 03/20/24 @ 11:30 by Ros Parra RN) Father Family history of heart disease in male family member before age 55 Family history of malignant neoplasm of brain Hypertension Pulmonary disease Mother Family history of heart disease in male family member before age 55 Family history of diabetes mellitus in first degree relative Social History Social History Social History: Surrogate medical decision maker: Neena Hazel, granddaughter. Code status: Full code. Smoking packs per day: 1 Smoking cigarettes per day: 20.0 Years smoked: 50 Smoking pack-years: 50.00 Smoking status: Former smoker Tobacco type: cigarettes Alcohol intake: never Substance use: never Substance use type: does not use Do You Feel Safe in your Home?: Yes Lack of Transportation: No Lack of Food: Never True Current Housing: I Have Housing Concerned About Future Housing: No Difficulty Paying Gas/Electric Bills: No Difficulty Paying for Meds: No Currently Unemployed: No Education: Associate Degree Difficulty w/ Childcare or Family Care: No Living arrangements: alone Additional living arrangements comments: The patient lives in her own home in [place]. 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 Gender identity (i
[2024-05-28] MEDS: methylPREDNISolone SOD SUCC 125 MG VIAL IV PUSH (17:50)
[2024-05-28 17:54] VITALS: PULSE 61; RESP 16; O2SAT 94
[2024-05-28] MEDS: IPRATROPIUM 0.5 MG/ALBUTEROL SULFATE 2.5 MG AMPUL.NEB 3 ML INHALATION (17:54)
[2024-05-28 18:05] VITALS: PULSE 65; RESP 14
[2024-05-28 18:38] LABS: Influenza A QL RT-PCR Negative (Negative); Influenza B QL RT-PCR Negative (Negative); RSV RNA, RT-PCR Negative (Negative); SARS-CoV-2 RNA PCR Negative (Negative)
[2024-05-28 19:18] VITALS: BP 129/54; PULSE 81; RESP 18; TEMP 36.8; O2SAT 97
== END 2024-05-28 19:20 | disposition home or self-care (01) ==
PROVIDERS: Emergency Medicine; Emergency Provider Physician Assistant; PCP Family Medicine
DX: J44.1 Chronic obstructive pulmonary disease with (acute) exacerbation (principal); J20.9 Acute bronchitis, unspecified; I13.0 Hypertensive heart and chronic kidney disease with heart failure and stage 1 through stage 4 chronic kidney disease, or unspecified chronic kidney disease; E11.22 Type 2 diabetes mellitus with diabetic chronic kidney disease; N18.9 Chronic kidney disease, unspecified; I50.9 Heart failure, unspecified; E78.5 Hyperlipidemia, unspecified; E03.9 Hypothyroidism, unspecified; Z87.891 Personal history of nicotine dependence
CPT/HCPCS: 36415; 71046; 80053; 83880; 84484; 85025; 85610; 85730; 87637; 93005; 96374; 99284; J2919

== ENCOUNTER 2024-05-31 11:27 | Outpatient (CLI) | payer MEDICARE, MEDICAID, SELFPAY ==
--- NOTE | ~2024-05-31 | MM_ITS ---
EXAMINATION: MM screening [facility] HISTORY: Screening TECHNIQUE: Craniocaudal and mediolateral oblique 3-D tomosynthesis images were obtained and synthetic 2-D images were generated. CAD analysis was submitted and interpreted. COMPARISON: Comparison to multiple prior studies sequentially, with oldest reviewed study dated 03/2019. BREAST PARENCHYMAL COMPOSITION: There are scattered areas of fibroglandular density. FINDINGS: There is no evidence of suspicious mass, calcification, or architectural distortion to sugg est malignancy in either breast. There has been no suspicious interval change. IMPRESSION: 1. No mammographic evidence of malignancy. 2. Recommend routine screening mammography in one year. BI-RADS Category 1: Negative Reviewed, dictated and finalized at location B.
== END 2024-05-31 11:28 ==
LOC: MICIMG 11:28
PROVIDERS: PCP Family Medicine; Visit Provider Family Medicine
DX: Z12.31 Encounter for screening mammogram for malignant neoplasm of breast (principal)
CPT/HCPCS: 77063; 77067

== ENCOUNTER 2024-07-11 15:39 | Emergency (ER) | payer MEDICARE, MEDICAID, SELFPAY ==
--- NOTE | ~2024-07-11 | XR_ITS ---
EXAMINATION: XR chest 2V DATE: 07/11/2024 17:18 INDICATION: Dyspnea. TECHNIQUE: Frontal and lateral views of the chest were obtained. COMPARISON: Chest 2 view 05/28/2024, chest CT 03/05/2024 FINDINGS: The lung volumes are normal. There are mild chronic interstitial opacities in the mid and l ower lung zones. No pleural effusion or pneumothorax. The heart size is normal. Surgical clips in the right upper quadrant are likely from cholecystectomy. IMPRESSION: 1. Stable mild chronic lung disease. Reviewed, dictated and finalized at location A.
[2024-07-11 15:45] VITALS: BP 158/111; PULSE 77; RESP 18; TEMP 36.4; O2SAT 97
--- NOTE | 2024-07-11 15:48 | ECG_ITS ---
Test Date: 2024-07-11 16:45:57 Measurements Intervals [place] Rate: 70 P: 46 AK: 207 QRS: -44 QRSD: 121 T: 108 QT: 419 QTc: 452 Interpretive Statements SINUS RHYTHM LEFT AXIS DEVIATION INTRAVENTRICULAR CONDUCTION DELAY LEFT VENTRICULAR HYPERTROPHY AND ST-T CHANGE CANNOT R/O SEPTAL INFARCT, AGE INDETERMINATE BASELINE ARTIFACT- II, III, AVR, AVL, AVF, V1-V6 ABNORMAL ECG Compared to ECG 05/28/2024 17:03:28 HEAART RATE HAS INCREASED Electronically Signed On 07-11-2024 20:03:40 CDT by Peterson Roque D.O.
--- NOTE | 2024-07-11 15:49 | ED.SOB ---
HPI - SOB/Dyspnea General Chief Complaint: Upper Respiratory Infection <Sobeida Koo PA-C - Last Filed: 07/11/24 15:50> Stated Complaint: URI sx <Sobeida Koo PA-C - Last Filed: 07/11/24 15:50> Time Seen by Provider: 07/11/24 16:10 <Sobeida Koo PA-C - Last Filed: 07/11/24 15:50> Focused HPI: 78-year-old female with history of CHF, pulmonary hypertension, COPD, CKD presents to the emergency department for shortness of breath. Patient states she has had worsening shortness of breath for approximately 1 week with a productive cough. She contacted her PCP's office and was advised to come to the ED for further evaluation. She has been using her inhalers without improvement. 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 She states that she has also noticed some increased swelling to her extremities. She denies chest pain, fever. GENERAL: Well-appearing, well-nourished, and in no acute distress. HEAD: Normocephalic, atraumatic. CHEST: Inspiratory and expiratory wheezing throughout all lung [place]. No significant edema to extremities HEART: Regular rate and rhythm.? NEURO: ?Alert and oriented x3. Patient screened in triage and initial orders placed.? ?Additional care and disposition to be based upon?diagnostic testing and treatment. <Sobeida Koo PA-C - Last Filed: 07/11/24 15:50> Related Data Home Medications: Home Medications Medication Instructions Recorded Confirmed amlodipine 5 mg tablet 5 mg PO DAILY 09/21/22 06/12/24 ergocalciferol (vitamin D2) 1,250 1,250 mcg PO WEEKLY 09/21/22 06/12/24 mcg (50,000 unit) capsule oxybutynin chloride 10 mg 10 mg PO HS 09/21/22 06/12/24 tablet,extended release 24 hr magnesium oxide 400 mg PO BID 09/15/23 06/12/24 pregabalin 200 mg capsule 200 mg PO BID 09/15/23 06/12/24 rosuvastatin 10 mg tablet 10 mg PO DAILY 09/15/23 06/12/24 vortioxetine 20 mg tablet 20 mg PO DAILY 09/15/23 06/12/24 (Trintellix) hydrocodone 10 mg-acetaminophen 1 tablet PO Q8H PRN PAIN 11/16/23 06/12/24 325 mg tablet furosemide 20 mg tablet 20 mg PO DAILY 12/07/23 06/12/24 <Sobeida Koo PA-C - Last Filed: 07/11/24 15:50> Allergies/Adverse Reactions: Allergies Allergy/AdvReac Type Severity Reaction Status Date / Time NILTON Inhibitors Allergy Unknown Angioedema Verified 06/12/24 11:09 <Sobeida Koo PA-C - Last Filed: 07/11/24 15:50> Review of Systems Review of Systems: All systems reviewed & are unremarkable except as noted in HPI and below <Berna Burnett MD - Last Filed: 07/11/24 18:00> [facility] Past Medical History Medical History: Medical History Anxiety Arthritis Asthma Bronchitis Carpal tunnel syndrome CHF (congestive heart failure) Chronic kidney disease Chronic obstructive pulmonary disease Depression Diabetes GERD (gastroesophageal reflux disease) Hiatal hernia HLD (hyperlipidemia) HTN (hypertension) Hypothyroidism Kidney stones NICOLA (obstructive sleep apnea) Pneumonia Renal disease RLS (restless legs syndrome) <Sobeida Koo PA-C - Last Filed: 07/11/24 15:50> Surgical History Surgical History: Surgical History History of carpal tunnel release Hx of cholecystectomy Hx of elbow surgery bilateral ulnar release Hx of hysterectomy Hx of spinal surgery <Sobeida Koo PA-C - Last Filed: 07/11/24 15:50> Family History Family History: Family History Father Family history of heart disease in male family member before age 55 Family history of malignant neoplasm of brain Hypertension Pulmonary disease Mother Family history of heart disease in male family member before age 55 Family history of diabetes mellitus in first degree relative <Sobeida Koo PA-C - Last Filed: 07/11/24 15:50> Social History Social History: Social Histo
[2024-07-11 16:25] LABS: Basophils Absolute Auto 0.1 K/mm3 (0.0-0.1); Basophils Percent Auto 0.8 % (0.2-1.2); Eosinophils Absolute Auto 0.2 K/mm3 (0-0.3); Eosinophils Percent Auto 2.4 % (0-4.4); Hematocrit 46.5 % (37.0-47.0); Hemoglobin 14.4 g/dL (12.0-15.0); Immature Granulocyte Absolute 0.04 K/mm3 (0.00-0.031); Immature Granulocyte Percent A 0.4 % (0-0.5); Lymphocytes Absolute Auto 2.03 K/mm3 (0.9-3.2); Lymphocytes Percent Auto 20.1 % (18.3-44.2); Mean Corpuscular Volume 87.1 fl (80-100); Mean Platelet Volume 10.9 fl (7.4-10.4); Monocytes Absolute Auto 1.1 K/mm3 (0.1-0.6); Monocytes Percent Auto 10.4 % (2.6-8.5); Neutrophils Absolute Auto 6.7 K/mm3 (1.3-6.7); Neutrophils Percent Auto 65.9 % (45.5-73.1); Platelet Count Result 240 k/mm3 (150-375); Red Blood Count 5.34 M/mm3 (4.2-5.4); White Blood Count 10.1 K/mm3 (4.5-10.0)
[2024-07-11] MEDS: IPRATROPIUM 0.5 MG/ALBUTEROL SULFATE 2.5 MG AMPUL.NEB 3 ML INHALATION (16:28)
[2024-07-11 16:32] VITALS: PULSE 66; RESP 18
[2024-07-11 16:36] LABS: Alanine Aminotransferase 15 U/L (6-35); Albumin Level 4.4 g/dL (3.5-5.1); Alkaline Phosphatase 77 U/L (38-126); Anion Gap 10 mmol/L (4-12); Aspartate Amino Transferase 28 U/L (14-36); Bilirubin,Total 0.9 mg/dL (0.2-1.3); Blood Urea Nitrogen 22 mg/dL (7-17); Calcium 9.2 mg/dL (8.4-10.2); Carbon Dioxide 31 mmol/L (22-30); Chloride 99 mmol/L (98-107); Estimated Glomerular Filt Rate 31; Glucose 103 mg/dL (65-110); Magnesium 2.3 mg/dL (1.6-2.3); Potassium 3.4 mmol/L (3.4-5.0); Prothrombin Time 13.7 Seconds (11.1-14.7); Sodium 140 mmol/L (137-145)
[2024-07-11 16:37] VITALS: PULSE 75; RESP 18
[2024-07-11 16:37] LABS: Partial Thromboplastin Time 27.1 Seconds (22.3-36.8)
[2024-07-11 16:53] LABS: NT Pro B Type Natriuretic Pept 100 pg/mL (19.9-100); Troponin I < 0.012 ng/mL (0.000-0.034)
[2024-07-11 17:01] LABS: Influenza A QL RT-PCR Negative (Negative); Influenza B QL RT-PCR Negative (Negative); RSV RNA, RT-PCR Negative (Negative); SARS-CoV-2 RNA PCR Negative (Negative)
[2024-07-11] MEDS: AZITHROMYCIN 250 MG TABLET 500 MG PO (17:53)
[2024-07-11] MEDS: methylPREDNISolone SOD SUCC 40 MG VIAL IV PUSH (17:54)
[2024-07-11] MEDS: IPRATROPIUM BR 0.02% INH SOLN 0.5 MG/2.5 ML VIAL 1 MG INHALATION (17:55)
[2024-07-11] MEDS: ALBUTEROL SULFATE NEB 2.5 MG/3 ML INH 10 MG INHALATION (17:55)
[2024-07-11 17:59] VITALS: PULSE 73; RESP 20
[2024-07-11 19:20] VITALS: O2SAT 98
[2024-07-11 19:28] VITALS: BP 157/95; PULSE 88; RESP 22; TEMP 37.1; O2SAT 98
== END 2024-07-11 19:29 | disposition home or self-care (01) ==
PROVIDERS: Physician Assistant; Emergency Provider Emergency Medicine; PCP Family Medicine
DX: J20.9 Acute bronchitis, unspecified (principal); I50.9 Heart failure, unspecified; J44.9 Chronic obstructive pulmonary disease, unspecified; N18.9 Chronic kidney disease, unspecified; E11.22 Type 2 diabetes mellitus with diabetic chronic kidney disease; K21.9 Gastro-esophageal reflux disease without esophagitis; E78.5 Hyperlipidemia, unspecified; I13.0 Hypertensive heart and chronic kidney disease with heart failure and stage 1 through stage 4 chronic kidney disease, or unspecified chronic kidney disease; G47.33 Obstructive sleep apnea (adult) (pediatric); Z87.891 Personal history of nicotine dependence; Z20.822 Contact with and (suspected) exposure to COVID-19
CPT/HCPCS: 36415; 71046; 80053; 83735; 83880; 84484; 85025; 85610; 85730; 87637; 93005; 94640; 96365; 96375; 99284; A9270; J0696; J2919

== ENCOUNTER 2024-07-30 12:07 | Outpatient (CLI) | payer MEDICARE, MEDICAID, SELFPAY ==
--- NOTE | ~2024-07-30 | DEXA_ITS ---
Bone Density Report Name: JESU HARLEY Age: 78 Sex: Female Ethnicity: White Date of : 1945 Indication: postmenopausal; screening for osteoporosis; height loss; prior fracture; Referring Provider: MARQUEZ SNIDER Study: Bone densitometry was performed. Exam Date: July 30, 2024 Accession number: [id number] Bone Density: Region BMD T-score Z-score Classification AP Spine(L1-L4) 1.149 0.9 3.4 Normal Femoral Neck (Left) 0.657 -1.7 0.4 Osteopenia Total Hip (Left) 0.961 0.2 2.0 Normal Femoral Neck (Right) 0.698 -1.4 0.8 Osteopenia Total Hip (Right) 0.900 -0.3 1.5 Normal Total Hip Mean 0.931 -0.1 1.8 Normal World Health Organization criteria for BMD impression classify patients as: Normal (T-score at or above -1.0), Osteopenia (T-score between -1.0 and -2.5), or Osteoporosis (T-score at or below -2.5). 10-year Fracture Risk(1): Major Osteoporotic Fracture 16% Hip Fracture 3.2% Reported Risk Factors: [place] (), Neck BMD=0.657, BMI=45.6, previous fracture (1) FRAX(R) Version 3.08. Fracture probability calculated for an untreated patient. Fracture probability may be lower if the patient has received treatment. Previous Exams: Region Exam Age BMD T-score BMD Change BMD Change Date g/cm2 vs Baseline vs Previous AP Spine (L1-L4) 07/30/2024 78 1.149 0.9 -0.028 (-2.4%) -0.028 (-2.4%) 04/11/2019 73 1.177 1.2 Total Hip(Left) 07/30/2024 78 0.961 0.2 -0.087 (-8.3%) -0.087 (-8.3%) 04/11/2019 73 1.048 0.9 Total Hip(Right) 07/30/2024 78 0.900 -0.3 -0.065 (-6.7%) -0.065 (-6.7%) 04/11/2019 73 0.966 0.2 *Denotes significance at 95% confidence level, LSC for AP Spine = 0.022 g/cm2, LSC for Total Hip = 0.027 g/cm2 # Denotes dissimilar scan types or analysis methods Clinical Information Provided by Patient: Has had a low trauma fracture Patient maximum height was 62 Menopause Age: 44 No regular weight bearing exercise Does not regularly consume dairy products Drinks caffeinated beverages Onset of menses at age 16 Number of children 3 Impression: The patient has low bone mass, based on the Left Femoral Neck T-score. The patient has an estimated ten-year risk of hip fracture of 3.2% and an estimated ten-year risk of major fracture of 16%, based on the WHO FRAX algorithm. The patient has risk factors, including: previous fracture. No significant bone loss was observed. Discussion: BONE DENSITY IS LOW AT ONE OR MORE SKELETAL SITES. THE PATIENT'S BMD AND CLINICAL RISK
== END 2024-07-30 12:08 | disposition home or self-care (01) ==
LOC: ANHIMG 12:08
PROVIDERS: PCP Family Medicine; Visit Provider Internal Medicine
DX: Z13.820 Encounter for screening for osteoporosis (principal); M85.852 Other specified disorders of bone density and structure, left thigh; M85.851 Other specified disorders of bone density and structure, right thigh
CPT/HCPCS: 77080

== ENCOUNTER 2024-10-24 12:52 | Outpatient (CLI) | payer MEDICARE, MEDICAID, SELFPAY ==
--- NOTE | ~2024-10-24 | CT_ITS ---
EXAMINATION:CT diagnostic chest wo con DATE: 10/24/2024 13:22 INDICATION: Chronic obstructive pulmonary disease, unspecified. TECHNIQUE: Computed tomography (CT) of the chest was performed without intravenous contrast. Automate d exposure control and iterative reconstruction technique were employed. The dose-length product (DLP ) was 826.75 mGy-cm. COMPARISON: Chest CT 03/05/24, CT abdomen and pelvis 11/22/20 FINDINGS: There is mild emphysema. There are peripheral groundglass opacities with septal thickening in the upper lobes. There is mild atelectasis in the inferior lungs. There is mild bronchiectasis in the inferior lungs. No pleural effusion. The heart size is normal. There are coronary artery calcific ations. No pericardial effusion. There are cysts in the liver measuring up to 17 mm. There are change s of cholecystectomy. IMPRESSION: 1. Mild emphysema and mild chronic interstitial lung disease. Reviewed, dictated and finalized at location A. ER
== END 2024-10-24 12:53 | disposition home or self-care (01) ==
LOC: ANHIMG 13:02
PROVIDERS: PCP Family Medicine; Visit Provider Internal Medicine Pulmonary Disease
DX: J44.9 Chronic obstructive pulmonary disease, unspecified (principal); J84.9 Interstitial pulmonary disease, unspecified; R76.8 Other specified abnormal immunological findings in serum; J43.9 Emphysema, unspecified
CPT/HCPCS: 71250

== ENCOUNTER 2024-11-21 11:31 | Outpatient (CLI) | payer MEDICARE, MEDICAID, SELFPAY ==
[2024-11-21 12:11] LABS: Basophils Absolute Auto 0.1 K/mm3 (0.0-0.1); Basophils Percent Auto 1.2 % (0.2-1.2); Eosinophils Absolute Auto 0.2 K/mm3 (0-0.3); Eosinophils Percent Auto 3.3 % (0-4.4); Hematocrit 42.2 % (37.0-47.0); Hemoglobin 12.8 g/dL (12.0-15.0); Immature Granulocyte Absolute 0.03 K/mm3 (0.00-0.031); Immature Granulocyte Percent A 0.5 % (0-0.5); Lymphocytes Absolute Auto 1.52 K/mm3 (0.9-3.2); Lymphocytes Percent Auto 22.9 % (18.3-44.2); Mean Corpuscular HGB Conc 30.3 g/dl (32-36); Mean Corpuscular Hemoglobin 27.5 pg (26-34); Mean Corpuscular Volume 90.8 fl (80-100); Mean Platelet Volume 12.6 fl (7.4-10.4); Monocytes Absolute Auto 0.9 K/mm3 (0.1-0.6); Monocytes Percent Auto 13.4 % (2.6-8.5); Neutrophils Absolute Auto 3.9 K/mm3 (1.3-6.7); Neutrophils Percent Auto 58.7 % (45.5-73.1); Platelet Count Result 153 k/mm3 (150-375); Red Blood Count 4.65 M/mm3 (4.2-5.4); Red Cell Distribution Width 15.2 % (11.5-14.5); White Blood Count 6.7 K/mm3 (4.5-10.0)
[2024-11-21 12:24] LABS: Alanine Aminotransferase 18 U/L (6-35); Albumin Level 3.9 g/dL (3.5-5.1); Alkaline Phosphatase 63 U/L (38-126); Anion Gap 6 mmol/L (4-12); Aspartate Amino Transferase 30 U/L (14-36); Bilirubin,Total 0.7 mg/dL (0.2-1.3); Blood Urea Nitrogen 28 mg/dL (7-17); Calcium 8.5 mg/dL (8.4-10.2); Carbon Dioxide 29 mmol/L (22-30); Chloride 105 mmol/L (98-107); Estimated Glomerular Filt Rate 34; Glucose 138 mg/dL (65-110); Phosphorus 3.6 mg/dL (2.5-4.5); Potassium 3.9 mmol/L (3.4-5.0); Sodium 140 mmol/L (137-145)
[2024-11-21 12:36] LABS: Parathyroid Intact 73.4 pg/mL (14.5-75.2)
[2024-11-21 13:05] LABS: Thyroid Stimulating Hormone 0.463 uIU/mL (0.465-4.680)
[2024-11-21 13:24] LABS: Free T4 Free Thyroxine 1.32 ng/dL (0.78-2.19); Vitamin D 25 Hydroxy 42.2 ng/mL
[2024-11-21 13:40] LABS: Hemoglobin A1C 5.9 % (<5.7)
[2024-11-21 13:49] LABS: Total Protein Urine Random 29 mg/dL; Ur Ttl Prot Creatinine Ratio 0.55 mg/mg (0-0.20)
== END 2024-11-21 11:32 | disposition home or self-care (01) ==
PROVIDERS: PCP Family Medicine; Referring Provider Internal Medicine; Visit Provider Internal Medicine Nephrology
DX: N18.32 Chronic kidney disease, stage 3b (principal); I12.9 Hypertensive chronic kidney disease with stage 1 through stage 4 chronic kidney disease, or unspecified chronic kidney disease; N25.81 Secondary hyperparathyroidism of renal origin; E55.9 Vitamin D deficiency, unspecified; M48.062 Spinal stenosis, lumbar region with neurogenic claudication; E24.9 Cushing's syndrome, unspecified; R73.01 Impaired fasting glucose; E78.5 Hyperlipidemia, unspecified
CPT/HCPCS: 36415; 80053; 82306; 82570; 83036; 83970; 84100; 84156; 84439; 84443; 85025

== ENCOUNTER 2024-11-24 12:20 | Emergency (ER) | payer MEDICARE, MEDICAID, SELFPAY ==
[2024-11-24] VITALS (11 sets, daily range): BP systolic 113–160; BP diastolic 46–127; PULSE 76–91; RESP 19–116; TEMP 36.6–38.6; O2SAT 91–98
--- NOTE | ~2024-11-24 | XR_ITS ---
EXAMINATION: XR chest 1V portable DATE: 11/24/2024 13:13 INDICATION: Cough and shortness of breath. TECHNIQUE: A single frontal view of the chest was obtained. COMPARISON: Chest 2 views 07/11/2024, chest CT 10/24/2024 FINDINGS: There are mild airspace opacities in left lower lung zone. No pleural effusion or pneumotho rax. The heart size is normal. IMPRESSION: 1. Mild airspace opacities in left lower lung zone, consistent with atelectasis versus pneumonia. Reviewed, dictated and finalized at location A. [employer]
[2024-11-24 13:24] LABS: Basophils Absolute Auto 0.1 K/mm3 (0.0-0.1); Basophils Percent Auto 0.7 % (0.2-1.2); Eosinophils Absolute Auto 0.1 K/mm3 (0-0.3); Eosinophils Percent Auto 2.1 % (0-4.4); Hematocrit 44.9 % (37.0-47.0); Hemoglobin 13.8 g/dL (12.0-15.0); Immature Granulocyte Absolute 0.03 K/mm3 (0.00-0.031); Immature Granulocyte Percent A 0.4 % (0-0.5); Lymphocytes Absolute Auto 0.78 K/mm3 (0.9-3.2); Lymphocytes Percent Auto 11.5 % (18.3-44.2); Mean Corpuscular HGB Conc 30.7 g/dl (32-36); Mean Corpuscular Hemoglobin 28.3 pg (26-34); Mean Platelet Volume 11.1 fl (7.4-10.4); Monocytes Absolute Auto 1.2 K/mm3 (0.1-0.6); Neutrophils Absolute Auto 4.5 K/mm3 (1.3-6.7); Neutrophils Percent Auto 67.3 % (45.5-73.1); Platelet Count Result 177 k/mm3 (150-375); Red Blood Count 4.88 M/mm3 (4.2-5.4); Red Cell Distribution Width 15.2 % (11.5-14.5); White Blood Count 6.8 K/mm3 (4.5-10.0)
[2024-11-24 13:35] LABS: Alanine Aminotransferase 17 U/L (6-35); Albumin Level 3.9 g/dL (3.5-5.1); Alkaline Phosphatase 79 U/L (38-126); Anion Gap 5 mmol/L (4-12); Aspartate Amino Transferase 32 U/L (14-36); Bilirubin,Total 0.5 mg/dL (0.2-1.3); Blood Urea Nitrogen 21 mg/dL (7-17); Calcium 8.9 mg/dL (8.4-10.2); Carbon Dioxide 30 mmol/L (22-30); Chloride 106 mmol/L (98-107); Estimated CRCL calculation 34 ml/min; Estimated Glomerular Filt Rate 35; Glucose 133 mg/dL (65-110); Potassium 4.2 mmol/L (3.4-5.0); Sodium 141 mmol/L (137-145)
[2024-11-24 13:36] LABS: Lactic Acid Reflex 1.5 mmol/L (0.7-2.0)
[2024-11-24 13:40] LABS: Prothrombin Time 13.6 Seconds (11.1-14.7)
[2024-11-24 13:41] LABS: Partial Thromboplastin Time 26.9 Seconds (22.3-36.8)
--- NOTE | 2024-11-24 13:42 | ED.GENADULT ---
HPI - General Adult General Chief complaint: Unspecified Stated complaint: pain, cant breath, shaking Time Seen by Provider: 11/24/24 12:59 History of Present Illness HPI narrative: 79-year-old female presented emergency department for evaluation for nausea, diarrhea, cough congestion and described rigors. Patient denies any associated chest pain or shortness of breath. Patient is ill-appearing at time of evaluation. Related Data Home Medications ?Medication ?Instructions ?Recorded ?Confirmed ?Last Taken ?Type amlodipine 5 mg tablet 5 mg PO DAILY 09/21/22 09/18/24 Unknown History ergocalciferol (vitamin D2) 1,250 1,250 mcg PO WEEKLY 09/21/22 09/18/24 Unknown History mcg (50,000 unit) capsule oxybutynin chloride 10 mg 10 mg PO HS 09/21/22 09/18/24 Unknown History tablet,extended release 24 hr magnesium oxide 400 mg PO BID 09/15/23 09/18/24 Unknown History pregabalin 200 mg capsule 200 mg PO BID 09/15/23 09/18/24 Unknown History rosuvastatin 10 mg tablet 10 mg PO DAILY 09/15/23 09/18/24 Unknown History vortioxetine 20 mg tablet 20 mg PO DAILY 09/15/23 09/18/24 Unknown History (Trintellix) hydrocodone 10 mg-acetaminophen 1 tablet PO Q8H PRN PAIN 11/16/23 09/18/24 Unknown History 325 mg tablet furosemide 20 mg tablet 20 mg PO DAILY 12/07/23 09/18/24 Unknown History Allergies Allergy/AdvReac Type Severity Reaction Status Date / Time NILTON Inhibitors Allergy Unknown Angioedema Verified 11/24/24 13:50 lisinopril Allergy Dyspnea / Verified 11/24/24 13:50 SOB Review of Systems Review of Systems: All systems reviewed & are unremarkable except as noted in HPI and below PMFSH Past Medical History Medical History Anxiety Arthritis Asthma Bronchitis Carpal tunnel syndrome CHF (congestive heart failure) Chronic kidney disease Chronic obstructive pulmonary disease Depression Diabetes GERD (gastroesophageal reflux disease) Hiatal hernia HLD (hyperlipidemia) HTN (hypertension) Hypothyroidism Kidney stones NICOLA (obstructive sleep apnea) Pneumonia Renal disease RLS (restless legs syndrome) Surgical History Surgical History History of carpal tunnel release Hx of cholecystectomy Hx of elbow surgery bilateral ulnar release Hx of hysterectomy Hx of spinal surgery Family History Family History Father Family history of heart disease in male family member before age 55 Family history of malignant neoplasm of brain Hypertension Pulmonary disease Mother Family history of heart disease in male family member before age 55 Family history of diabetes mellitus in first degree relative Social History Social History Social History: Surrogate medical decision maker: Neena Hazel, granddaughter. Code status: Full code. Smoking packs per day: 1 Smoking cigarettes per day: 20.0 Years smoked: 50 Smoking pack-years: 50.00 Smoking status: Former smoker Tobacco type: cigarettes Alcohol intake: never Substance use: never Substance use type: does not use Do You Feel Safe in your Home?: Yes Lack of Transportation: No Lack of Food: Never True Current Housing: I Have Housing Concerned About Future Housing: No Difficulty Paying Gas/Electric Bills: No Difficulty Paying for Meds: No Currently Unemployed: No Education: Associate Degree Difficulty w/ Childcare or Family Care: No Living arrangements: alone Additional living arrangements comments: The patient lives in her own home in [place]. Occupation/Education: retired Additional occupation/education comments: Retired [employer]. Gender identity (if verbalized by the patient): Female 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: No Exam Narrative: APPEARANCE: Ill-appearing HEAD: normocephalic, atraumatic. EYES: PERRLA/EOMI, conjunctivae clear. NOSE: Normal no drainage EARS:TMS clear with good light reflex. THROAT: Pharynx clear, no exudate. NECK: Supple. No adenopathy, no masses. RESPIRATORY: Airway patent, respirations nonlabored. Clear to auscultation bilaterally, no rales, rhonchi, wheezing. CARDIOVASCULAR: Regular rate and rhythm without murmurs rubs or gallops. ABDOMINAL: Soft, nontender, nondistended, normal bowel sounds MUSCULOSKELETAL: Moves all extremities. Strength/ROM intact, No edema, No calf tenderness. NEURO: Alert. Cranial nerves II through XII intact. Grossly intact SKIN: Warm, dry. Normal Color Course Vital Signs Vital signs: Vital Signs Temperature 97.8 F 11/24/24 12:24 Pulse Rate 90 11/24/24 12:24 Respiratory Rate 116 H 11/24/24 12:24 Blood Pressure 138/57 L 11/24/24 12:24 Pulse Oximetry 97 11/24/24 12:24 Temperature 99.5 F 11/24/24 16:52 Pulse Rate 80 11/24/24 16:52 Respiratory Rate 20 11/24/24 16:52 Blood Pressure 113/46 L 11/24/24 16:52 Pulse Oximetry 93 11/24/24 16:52 Medical Decision Making MDM Narrative Medical decision making narrative: 79-year-old female presented emergency department for evaluation for fever and rigors with generalized weakness. Patient did have a fever 101.5 this was treated with Tylenol. Patient's white blood cell count is not elevated hemoglobin is 13.8. Patient's INR is 1.0. Patient had no acute abnormalities on her CMP UA was negative for infection. Patient did test positive for influenza A. Chest x-ray was also concerning for atelectasis versus pneumonia. I discussed the case with the hospitalist patient was accepted for admission. After patient's fever improved patient prefers to be discharged home. Patient states she does feel strong enough for discharge home. Patient was advised to take Tylenol to help control her fever at home. Patient was treated with IV Rocephin and IV azithromycin the emergency department. Patient was discharged home on p.o. Augmentin and p.o. azithromycin. Patient was comfortable the plan for discharge and close follow-up with primary care physician. Differential Diagnosis Differential Diagnosis: Influenza, RSV, pneumonia, UTI, rigors Vital Signs Vital Signs: Vital Signs Temperature 97.8 F 11/24/24 12:24 Pulse Rate 90 11/24/24 12:24 Respiratory Rate 116 H 11/24/24 12:24 Blood Pressure 138/57 L 11/24/24 12:24 Pulse Oximetry 97 11/24/24 12:24 Temperature 99.5 F 11/24/24 16:52 Pulse Rate 80 11/24/24 16:52 Respiratory Rate 20 11/24/24 16:52 Blood Pressure 113/46 L 11/24/24 16:52 Pulse Oximetry 93 11/24/24 16:52 Lab Data 11/24/24 13:16 11/24/24 13:16 Labs: Lab Results 11/24/24 11/24/24 Range/Units 13:16 13:49 WBC 6.8 (4.5-10.0) K/mm3 RBC 4.88 (4.2-5.4) M/mm3 Hgb 13.8 (12.0-15.0) g/dL Hct 44.9 (37.0-47.0) % MCV 92.0 (80-100) fl MCH 28.3 (26-34) pg MCHC 30.7 L (32-36) g/dl RDW 15.2 H (11.5-14.5) % Plt Count 177 (150-375) k/mm3 MPV 11.1 H (7.4-10.4) fl Immature Gran % (Auto) 0.4 (0-0.5) % Neut % (Auto) 67.3 (45.5-73.1) % Lymph % (Auto) 11.5 L (18.3-44.2) % [place] % (Auto) 18.0 H (2.6-8.5) % Eos % (Auto) 2.1 (0-4.4) % Baso % (Auto) 0.7 (0.2-1.2) % Lymph # (Auto) 0.78 L (0.9-3.2) K/mm3 [place] # (Auto) 1.2 H (0.1-0.6) K/mm3 Eos # (Auto) 0.1 (0-0.3) K/mm3 Baso # (Auto) 0.1 (0.0-0.1) K/mm3 Abs Immat Gran (auto) 0.03 (0.00-0.031) K/mm3 Absolute Neuts (auto) 4.5 (1.3-6.7) K/mm3 Absolute Nucleated RBC 0.000 (0.0-0.012) K/mm3 Nucleated RBC % 0.0 (0.0-0.2) % PT 13.6 (11.1-14.7) Seconds INR 1.0 APTT 26.9 (22.3-36.8) Seconds Sodium 141 (137-145) mmol/L Potassium 4.2 (3.4-5.0) mmol/L Chloride 106 (98-107) mmol/L Carbon Dioxide 30 (22-30) mmol/L Anion Gap 5 (4-12) mmol/L BUN 21 H (7-17) mg/dL Creatinine 1.45 H (0.7-1.0) mg/dL Estim Creat Clear Calc 34 ml/min Estimated GFR 35 L (59 - ) Glucose 133 H (65-110) mg/dL Lactic Acid 1.5 (0.7-2.0) mmol/L Calcium 8.9 (8.4-10.2) mg/dL Total Bilirubin 0.5 (0.2-1.3) mg/dL AST 32 (14-36) U/L ALT 17 (6-35) U/L Alkaline Phosphatase 79 (38-126) U/L Total Protein 8.0 (6.3-8.2) g/dL Albumin 3.9 (3.5-5.1) g/dL Urine Color Yellow (Yellow) Urine Appearance Clear (Clear) Urine pH 6.0 (5.0-9.0) Ur Specific Isabella 1.017 (1.001-1.035) Urine Protein 1+ H (Negative) mg/dL Urine Glucose (UA) 3+ H (Negative) mg/dL Urine Ketones Negative (Negative) mg/dL Ur Blood (Man) Negative (Negative) Urine Nitrate Negative (Negative) Urine Bilirubin Negative (Negative) Urine Urobilinogen 0.2 (<2.0) mg/dL Leukocyte Esterase Rfl Trace H (Negative) MESFIN/UL Urine RBC 0-2 (0-2) /hpf Urine WBC 0-5 (0-3) /hpf Ur Squamous Epith Cells None seen (Few) /hpf Urine Bacteria None seen /hpf Urine Casts 0-2 Influenza A (RT-PCR) Positive A (Negative) Influenza B (RT-PCR) Negative (Negative) RSV (RT-PCR) Negative (Negative) SARS-CoV-2 RNA (RT-PCR) Negative (Negative) Discharge Plan Discharge Clinical Impression: Fever, Weakness, Pneumonia, Influenza A Patient Disposition: Home, Self-Care Condition: Serious Instructions: Antibiotic Form, Viral Syndrome (ED), Pneumonia (ED) Additional Instructions: You were offered admission but you preferred to be discharged home. Antibiotics as directed until completed. If you have any worsening symptoms then please call or return to the emergency department. Patient Language: Chinese Prescriptions: New azithromycin 250 mg tablet See Rx Instructions .ROUTE .COMPLEX Qty: 6 0RF Rx Instructions: For 250 mg dose pack: take 500 mg today (day 1), then 250 mg for 4 days (days 2-5) benzonatate 100 mg capsule 100 mg PO TID PRN (Reason: cough) Qty: 14 0RF albuterol sulfate 90 mcg/actuation HFA aerosol inhaler 1 puff inhalation QID Qty: 6.7 0RF amoxicillin-pot clavulanate 875-125 mg tablet 1 tablet PO Q12H 7 Days Qty: 14 0RF No Action pregabalin 200 mg capsule 200 mg PO BID rosuvastatin 10 mg tablet 10 mg PO DAILY magnesium oxide 400 mg magnesium tablet 400 mg PO BID Trintellix 20 mg tablet 20 mg PO DAILY hydrocodone-acetaminophen 10-325 mg tablet 1 tablet PO Q8H PRN (Reason: PAIN) albuterol sulfate 2.5 mg /3 mL (0.083 %) solution for nebulization 2.5 mg inhalation Q4-6H PRN (Reason: shortness of breath or wheezing) Qty: 180 2RF furosemide 20 mg tablet 20 mg PO DAILY oxybutynin chloride 10 mg Tablet Extended Release 24hr 10 mg PO HS amlodipine 5 mg Tablet 5 mg PO DAILY ergocalciferol (vitamin D2) 1,250 mcg (50,000 unit) Capsule 1,250 mcg PO WEEKLY Rx Instructions: takes mondays albuterol sulfate 90 mcg/actuation HFA aerosol inhaler 2 puff inhalation QID PRN (Reason: shortness of breath or wheezing) Qty: 8.5 0RF dapagliflozin propanediol 10 mg tablet 10 mg PO DAILY Qty: 90 3RF Breztri Aerosphere 160-9-4.8 mcg/actuation HFA aerosol inhaler See Rx Instructions .ROUTE .COMPLEX Qty: 10.7 6RF Dose Instruction: INHALE 2 PUFFS BY MOUTH TWICE DAILY. RINSE MOUTH WITH WATER AND SPIT Rx Instructions: INHALE 2 PUFFS BY MOUTH TWICE DAILY. RINSE MOUTH WITH WATER AND SPIT dexamethasone 1 mg tablet 1 mg PO ONCE Qty: 1 0RF Rx Instructions: Please take this night before around 11 pm and go for blood test in the morning around 8 am levothyroxine [Unithroid] 100 mcg tablet 100 mcg PO DAILY Qty: 90 0RF Follow-up/Referrals: Jn Velásquez MD [Primary Care Provider] -
[2024-11-24 14:00] LABS: Influenza A QL RT-PCR Positive (Negative); Influenza B QL RT-PCR Negative (Negative); RSV RNA, RT-PCR Negative (Negative); SARS-CoV-2 RNA PCR Negative (Negative)
[2024-11-24 14:07] LABS: Add Urine Microscopic? YES; Appearance Urine Clear (Clear); Bacteria Urine None Seen /hpf; Bilirubin Urine Negative (Negative); Blood Urine Negative (Negative); Color Urine Yellow (Yellow); Glucose Urine UA 3+ mg/dL (Negative); Ketones Urine Negative (Negative); Leukocyte Esterase Ur Trace LEU/UL (Negative); Nitrate Urine Negative (Negative); Non Pathogenic Casts 0-2; Protein Urine 1+ mg/dL (Negative); RBC Urine 0-2 /hpf (0-2); Specific Grav Ur 1.017 (1.001-1.035); Squamous Epithelial Cell Urine None Seen /hpf (Few); Urobilinogen Urine 0.2 mg/dL (<2.0); WBC Urine 0-5 /hpf (0-3)
[2024-11-24] MEDS: ACETAMINOPHEN 500 MG TABLET 1000 MG PO (14:10)
[2024-11-24] MEDS: AZITHROMYCIN 500 MG/NS 250 ML 500 MG/250 ML BAG 250 MG IVPB (15:11)
--- NOTE | 2024-11-24 15:15 | PM.IMHP ---
H&P: HPI History of Present Illness Date/Time: entered in error, patient discharged from the ED [facility] Past Medical History Medical History Anxiety Arthritis Asthma Bronchitis Carpal tunnel syndrome CHF (congestive heart failure) Chronic kidney disease Chronic obstructive pulmonary disease Depression Diabetes GERD (gastroesophageal reflux disease) Hiatal hernia HLD (hyperlipidemia) HTN (hypertension) Hypothyroidism Kidney stones NICOLA (obstructive sleep apnea) Pneumonia Renal disease RLS (restless legs syndrome) Surgical History Surgical History History of carpal tunnel release Hx of cholecystectomy Hx of elbow surgery bilateral ulnar release Hx of hysterectomy Hx of spinal surgery Family History Family History Father Family history of heart disease in male family member before age 55 Family history of malignant neoplasm of brain Hypertension Pulmonary disease Mother Family history of heart disease in male family member before age 55 Family history of diabetes mellitus in first degree relative Social History Social History Social History: Surrogate medical decision maker: Neena Hazel, granddaughter. Code status: Full code. Smoking packs per day: 1 Smoking cigarettes per day: 20.0 Years smoked: 50 Smoking pack-years: 50.00 Smoking status: Former smoker Tobacco type: cigarettes Alcohol intake: never Substance use: never Substance use type: does not use Do You Feel Safe in your Home?: Yes Lack of Transportation: No Lack of Food: Never True Current Housing: I Have Housing Concerned About Future Housing: No Difficulty Paying Gas/Electric Bills: No Difficulty Paying for Meds: No Currently Unemployed: No Education: Associate Degree Difficulty w/ Childcare or Family Care: No Living arrangements: alone Additional living arrangements comments: The patient lives in her own home in [place]. Occupation/Education: retired Additional occupation/education comments: Retired [employer]. Gender identity (if verbalized by the patient): Female 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: No Meds Home Medications and Allergies Home Medications ?Medication ?Instructions ?Recorded ?Confirmed ?Type amlodipine 5 mg tablet 5 mg PO DAILY 09/21/22 09/18/24 History ergocalciferol (vitamin D2) 1,250 1,250 mcg PO WEEKLY 09/21/22 09/18/24 History mcg (50,000 unit) capsule oxybutynin chloride 10 mg 10 mg PO HS 09/21/22 09/18/24 History tablet,extended release 24 hr albuterol sulfate 2.5 mg/3 mL 2.5 mg (3 mL) inhalation Q4-6H PRN 08/17/23 09/18/24 Rx (0.083 %) solution for nebulization shortness of breath or wheezing #180 mL magnesium oxide 400 mg PO BID 09/15/23 09/18/24 History pregabalin 200 mg capsule 200 mg PO BID 09/15/23 09/18/24 History rosuvastatin 10 mg tablet 10 mg PO DAILY 09/15/23 09/18/24 History vortioxetine 20 mg tablet 20 mg PO DAILY 09/15/23 09/18/24 History (Trintellix) hydrocodone 10 mg-acetaminophen 1 tablet PO Q8H PRN PAIN 11/16/23 09/18/24 History 325 mg tablet furosemide 20 mg tablet 20 mg PO DAILY 12/07/23 09/18/24 History dapagliflozin propanediol 10 mg 10 mg PO DAILY #90 tabs 01/23/24 09/18/24 Rx tablet Breztri Aerosphere 160 See Rx Instructions .Route 05/30/24 09/18/24 Rx mcg-9mcg-4.8mcg/actuation HFA .COMPLEX #10.7 grams aerosol inhaler ([id number]) albuterol sulfate 90 mcg/actuation 2 puff inhalation QID PRN 07/11/24 09/18/24 Rx aerosol inhaler shortness of breath or wheezing #8.5 grams dexamethasone 1 mg tablet 1 mg PO ONCE #1 tablet 08/13/24 09/18/24 Rx Unithroid 100 mcg tablet 100 mcg PO DAILY #90 tabs 09/26/24 Rx (levothyroxine) albuterol sulfate 90 mcg/actuation 1 puff inhalation QID #6.7 grams 11/24/24 Rx aerosol inhaler amoxicillin 875 mg-potassium 1 tablet PO Q12H 7 days #14 tabs 11/24/24 Rx clavulanate 125 mg tablet azithromycin 250 mg tablet See Rx Instructions PO .COMPLEX #6 11/24/24 Rx tabs benzonatate 100 mg capsule 100 mg PO TID PRN cough #14 caps 11/24/24 Rx Allergies Allergy/AdvReac Type Severity Reaction Status Date / Time NILTON Inhibitors Allergy Unknown Angioedema Verified 11/24/24 13:50 lisinopril Allergy Dyspnea / Verified 11/24/24 13:50 SOB Vital Signs Vital Signs - 24 hr 11/24/24 12:24 11/24/24 12:36 11/24/24 12:38 Temperature 97.8 F Pulse Rate 90 85 Respiratory Rate 116 H 22 H 28 H Blood Pressure 138/57 L Pulse Oximetry 97 93 11/24/24 12:45 11/24/24 13:05 11/24/24 13:42 Temperature 101.5 F H Pulse Rate 81 80 Respiratory Rate 25 H 27 H Blood Pressure Pulse Oximetry 91 96 11/24/24 13:54 Temperature Pulse Rate 76 Respiratory Rate 19 Blood Pressure 160/127 H Pulse Oximetry 98
[2024-11-24] MEDS: ALBUTEROL SULFATE NEB 2.5 MG/3 ML INH INHALATION (15:21)
== END 2024-11-24 18:16 | disposition home or self-care (01) ==
PROVIDERS: Emergency Provider Emergency Medicine; PCP Family Medicine
DX: J10.00 Influenza due to other identified influenza virus with unspecified type of pneumonia (principal); R53.1 Weakness; Z20.822 Contact with and (suspected) exposure to COVID-19; I50.9 Heart failure, unspecified; I13.0 Hypertensive heart and chronic kidney disease with heart failure and stage 1 through stage 4 chronic kidney disease, or unspecified chronic kidney disease; E11.22 Type 2 diabetes mellitus with diabetic chronic kidney disease; N18.9 Chronic kidney disease, unspecified; J44.9 Chronic obstructive pulmonary disease, unspecified; E03.9 Hypothyroidism, unspecified; K44.9 Diaphragmatic hernia without obstruction or gangrene; K21.9 Gastro-esophageal reflux disease without esophagitis; G47.33 Obstructive sleep apnea (adult) (pediatric); G25.81 Restless legs syndrome; M19.90 Unspecified osteoarthritis, unspecified site; Z87.01 Personal history of pneumonia (recurrent); Z87.442 Personal history of urinary calculi; Z87.891 Personal history of nicotine dependence; Z90.49 Acquired absence of other specified parts of digestive tract; Z90.710 Acquired absence of both cervix and uterus; Z79.899 Other long term (current) drug therapy
CPT/HCPCS: 36415; 71045; 80053; 81001; 83605; 85025; 85610; 85730; 87040; 87637; 94640; 96365; 96367; 99284; A9270; J0456; J0696

== ENCOUNTER 2024-11-29 19:09 | Emergency (ER) | payer MEDICARE, MEDICAID, SELFPAY ==
[2024-11-29 19:11] VITALS: BP 137/66; PULSE 64; RESP 20; TEMP 37.1; O2SAT 94
--- NOTE | 2024-11-29 23:50 | PC.NURSE ---
nO ANSWER WHEN CALLED FOR ROOM X 2
== END 2024-11-29 23:50 | disposition left against medical advice (07) ==
LOC: ANHED 11-30 00:13
PROVIDERS: PCP Family Medicine
DX: R22.41 Localized swelling, mass and lump, right lower limb (principal)
CPT/HCPCS: 99199

== ENCOUNTER 2024-12-04 11:48 | Inpatient (IN) | payer MEDICARE, MEDICAID, SELFPAY ==
[2024-12-04] VITALS (15 sets, daily range): BP systolic 102–160; BP diastolic 47–86; PULSE 55–91; RESP 13–21; TEMP 36.6–37; O2SAT 95–100; BMI 41.2
--- NOTE | ~2024-12-04 | US_ITS ---
EXAMINATION: US venous doppler [facility] DATE: 12/05/2024 09:24 INDICATION: Lower limb swelling. TECHNIQUE: Grayscale ultrasound images without and with compression and Doppler ultrasound images of the bilateral lower extremity veins were obtained. COMPARISON: None. FINDINGS: The visualized portions of right common femoral vein, profunda (deep) femoral vein, femoral vein, pop liteal vein, peroneal veins, posterior tibial veins, and greater saphenous vein outflow are patent. The visualized portions of left common femoral vein, profunda femoral vein, femoral vein, popliteal v ein, peroneal veins, posterior tibial veins, and greater saphenous vein outflow are patent. IMPRESSION: 1. No deep venous thrombosis. Reviewed, dictated and finalized at location A. IST INSTRUMENTATION
--- NOTE | ~2024-12-04 | XR_ITS ---
Portable chest x-ray Comparison: 11/24/2024 Clinical History: Dyspnea Findings: Lungs are clear, without focal consolidation or pleural effusion. Cardiomediastinal silho uette is stable. Bones and soft tissues are unremarkable. Impression: Clear lungs. Reviewed, dictated and finalized at location . K LAYING SUPERVISOR Impression: Clear lungs.
--- NOTE | ~2024-12-04 | CT_ITS ---
EXAMINATION: CTA chest PE protocol DATE: 12/04/2024 17:42 PUG MACHINE OPERATOR INDICATION: Shortness of breath and hypoxia TECHNIQUE: Computed tomographic angiography (CTA) of the chest was performed with 100 mL Omnipaque-35 0 intravenous contrast. The dose-length product was 1026.64 mGy-cm. Maximum intensity projection 3D-r econstructions of the aorta and other arteries were constructed by the technologist on a separate wor kstation. COMPARISON: Reference is made to noncontrast enhanced CT examination of the chest dated 10/24/2024 FINDINGS: No filling defect is identified within the main or proximal pulmonary arteries. Pulmonary arteries are enlarged. The thoracic aorta is nonaneurysmal and demonstrates dense calcifications. No dissection is identified. Right basilar consolidation, an interval change from prior examination. Patchy groundglass opacification within the bilateral upper lobes, also an interval change, suggestin g pulmonary edema. The remainder of the lungs are clear. The heart is enlarged, without pericardial effusion. Within the upper abdomen: The gallbladder is surgically absent. Diffuse perirenal infiltration of the retroperitoneum, not an uncommon finding in an elderly patient. IMPRESSION: No pulmonary embolus. No dissection or aneurysmal dilatation. Right basilar infiltrate. Mild pulmonary congestion. Reviewed, dictated and finalized at location A. MACHINE OPERATOR
--- NOTE | 2024-12-04 11:50 | ECG_ITS ---
Test Date: 2024-12-04 11:57:11 Measurements Intervals Crane Rate: 60 P: 42 CA: 210 QRS: -33 QRSD: 109 T: 122 QT: 416 QTc: 417 Interpretive Statements SINUS RHYTHM WITH FIRST DEGREE AV BLOCK MARKED LEFT AXIS DEVIATION [QRS AXIS < -30] INTRAVENTRICULAR CONDUCTION DELAY LEFT VENTRICULAR HYPERTROPHY AND ST-T CHANGE [VOLTAGE CRITERIA PLUS ST/T ABNORMALITY] ANTERIOR MYOCARDIAL INFARCTION , OF INDETERMINATE AGE [40+ ms Q WAVE AND/OR ST/T ABNORMALITY IN V3/V4] Compared to ECG 07/11/2024 16:45:57 NO SIGNIFICANT CHANGES Electronically Signed On 12-04-2024 16:30:30 TIME CLERK by Mani King M.D.
[2024-12-04 12:37] LABS: Basophils Percent Auto 0.6 % (0.2-1.2); Eosinophils Absolute Auto 0.2 K/mm3 (0-0.3); Eosinophils Percent Auto 3.4 % (0-4.4); Hematocrit 41.5 % (37.0-47.0); Hemoglobin 12.7 g/dL (12.0-15.0); Immature Granulocyte Absolute 0.04 K/mm3 (0.00-0.031); Immature Granulocyte Percent A 0.6 % (0-0.5); Lymphocytes Absolute Auto 1.57 K/mm3 (0.9-3.2); Lymphocytes Percent Auto 23.4 % (18.3-44.2); Mean Corpuscular HGB Conc 30.6 g/dl (32-36); Mean Corpuscular Hemoglobin 27.6 pg (26-34); Mean Corpuscular Volume 90.2 fl (80-100); Mean Platelet Volume 11.4 fl (7.4-10.4); Monocytes Absolute Auto 0.9 K/mm3 (0.1-0.6); Neutrophils Absolute Auto 3.9 K/mm3 (1.3-6.7); Platelet Count Result 231 k/mm3 (150-375); Red Cell Distribution Width 14.7 % (11.5-14.5); White Blood Count 6.7 K/mm3 (4.5-10.0)
--- NOTE | 2024-12-04 12:44 | PC.NURSE ---
Pts son displaying aggressive behavior towards staff staff and student nurse. Stating I do not want any interventions performed without my permission, I don't want any student doing any attraction attendant explained to pt and family no interventions if pt does not agree to it. Son hovering over staff, RN asked son & pt if student nurse could observe? Permission received for student nurse to observe.
[2024-12-04 12:51] LABS: Alanine Aminotransferase 14 U/L (6-35); Albumin Level 3.7 g/dL (3.5-5.1); Alkaline Phosphatase 59 U/L (38-126); Anion Gap 7 mmol/L (4-12); Aspartate Amino Transferase 26 U/L (14-36); Bilirubin,Total 0.7 mg/dL (0.2-1.3); Blood Urea Nitrogen 24 mg/dL (7-17); Calcium 8.3 mg/dL (8.4-10.2); Carbon Dioxide 29 mmol/L (22-30); Chloride 106 mmol/L (98-107); Estimated CRCL calculation 33 ml/min; Estimated Glomerular Filt Rate 34; Glucose 106 mg/dL (65-110); Potassium 4.4 mmol/L (3.4-5.0); Sodium 142 mmol/L (137-145)
[2024-12-04] MEDS: IPRATROPIUM 0.5 MG/ALBUTEROL SULFATE 2.5 MG AMPUL.NEB 3 ML 12 ML INHALATION (12:54)
--- NOTE | 2024-12-04 12:55 | ED_ITS ---
HPI - General Adult General Chief complaint: Shortness of Breath/Dyspnea Stated complaint: SOB Time Seen by Provider: 12/04/24 12:22 History of Present Illness HPI narrative: 79-year-old female with history of COPD, recurrent pneumonia and diastolic heart failure presenting with difficulty breathing. Patient says over last several days she has had increased oxygen requirements. She says she only wears oxygen at night and is requiring it during the day. She also has significant dyspnea on exertion and can barely walk across the room without becoming significantly short of breath. She has some lower extremity edema. She denies fevers chills chest pain abdominal pain or urinary symptoms. Patient states that she does not take any inhalers on a daily basis appears to be noncompliant with maintenance medications. Related Data Home Medications ?Medication ?Instructions ?Recorded ?Confirmed ?Last Taken ?Type amlodipine 5 mg tablet 5 mg PO DAILY 09/21/22 09/18/24 Unknown History ergocalciferol (vitamin D2) 1,250 1,250 mcg PO WEEKLY 09/21/22 09/18/24 Unknown History mcg (50,000 unit) capsule oxybutynin chloride 10 mg 10 mg PO HS 09/21/22 09/18/24 Unknown History tablet,extended release 24 hr magnesium oxide 400 mg PO BID 09/15/23 09/18/24 Unknown History pregabalin 200 mg capsule 200 mg PO BID 09/15/23 09/18/24 Unknown History rosuvastatin 10 mg tablet 10 mg PO DAILY 09/15/23 09/18/24 Unknown History vortioxetine 20 mg tablet 20 mg PO DAILY 09/15/23 09/18/24 Unknown History (Trintellix) hydrocodone 10 mg-acetaminophen 1 tablet PO Q8H PRN PAIN 11/16/23 09/18/24 Unknown History 325 mg tablet furosemide 20 mg tablet 20 mg PO DAILY 12/07/23 09/18/24 Unknown History Allergies Allergy/AdvReac Type Severity Reaction Status Date / Time NILTON Inhibitors Allergy Unknown Angioedema Verified 12/04/24 11:49 lisinopril Allergy Dyspnea / Verified 12/04/24 11:49 SOB [facility] Past Medical History Medical History Chronic kidney disease Carpal tunnel syndrome Kidney stones Anxiety Depression Hypothyroidism Diabetes Arthritis Renal disease Hiatal hernia GERD (gastroesophageal reflux disease) Pneumonia HTN (hypertension) HLD (hyperlipidemia) CHF (congestive heart failure) Bronchitis Asthma NICOLA (obstructive sleep apnea) Chronic obstructive pulmonary disease RLS (restless legs syndrome) Surgical History Surgical History Hx of elbow surgery bilateral ulnar release History of carpal tunnel release Hx of spinal surgery Hx of hysterectomy Hx of cholecystectomy Family History Family History Father Family history of heart disease in male family member before age 55 Family history of malignant neoplasm of brain Hypertension Pulmonary disease Mother Family history of heart disease in male family member before age 55 Family history of diabetes mellitus in first degree relative Social History Social History Social History: Surrogate medical decision maker: Neena Hazel, granddaughter. Code status: Full code. Smoking packs per day: 1 Smoking cigarettes per day: 20.0 Years smoked: 50 Smoking pack-years: 50.00 Smoking status: Former smoker Tobacco type: cigarettes Alcohol intake: never Substance use: never Substance use type: does not use Do You Feel Safe in your Home?: Yes Lack of Transportation: No Lack of Food: Never True Current Housing: I Have Housing Concerned About Future Housing: No Difficulty Paying Gas/Electric Bills: No Difficulty Paying for Meds: No Currently Unemployed: No Education: Associate Degree Difficulty w/ Childcare or Family Care: No Living arrangements: alone Additional living arrangements comments: The patient lives in her own home in [place]. Occupation/Education: retired Additional occupation/education comments: Retired [employer]. Gender identity (if verbalized by the patient): Female 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: No Exam 2 Narrative: APPEARANCE: No apparent distress. Morbidly obese Head: atraumatic. EYES: EOMI, NOSE: Atraumatic NECK: Trachea midline RESPIRATORY: Decreased air entry, diffuse rhonchi CARDIOVASCULAR: RRR, +2 pitting edema lower extremities ABDOMINAL: Non-distended nontender no guarding rebound MUSCULOSKELETAl: No obvious deformities NEURO: Alert. Moving 4/4 extremities SKIN:: Warm, dry. Normal color PSYCHIATRIC: Normal affect Course Vital Signs Vital signs: Vital Signs Pulse Rate 55 L 12/04/24 11:50 Temperature 98.5 F 12/04/24 13:24 Pulse Rate 73 01/28/25 17:02 Respiratory Rate 18 12/04/24 17:02 Blood Pressure 138/56 L 12/04/24 17:02 Pulse Oximetry 95 12/04/24 17:02 Oxygen Delivery Nasal Cannula 12/04/24 12:20 Oxygen Flow Rate 4 12/04/24 12:20 Medical Decision Making MDM Narrative Medical decision making narrative: -Course: 79-year-old female with poor respiratory status at baseline presenting with increased oxygen demands. CT showed right basilar infiltrates. Patient started on broad spectrum antibiotics. Treated for COPD. Patient has some mild lower extremity edema but does not appear severely fluid overloaded. diuresis per admitting service. Patient be admitted the hospital further management of hypoxic respiratory failure. -DDX includes but is not limited to: COPD exacerbation, pneumonia, CHF exacerbation -Co-morbidities complicating care: COPD, recurrent pneumonia -Independent interpretation of studies: White count 6.7. Initial lactic 3.0 which is being repeated after oxygen and breathing treatments. Kidney function at baseline Urine not indicative infection Viral swabs negative Imaging reviewed Independent EKG interpretation: Rhythm [sinus], Rate [68], [place] -[normal], [place] -[normal], QRS [narrow], QTC [normal], T waves -[negative for concerning inversions], ST Segments - [Negative for concerning elevations] Final interpretations: NSR with intraventricular conduction delay and nonspecific T-wave inversions in the lateral leads -Discussion of Management/Consultants: Jillian -Shared decision making /Disposition: admitted. Vital Signs Vital Signs: Vital Signs Pulse Rate 55 L 12/04/24 11:50 Temperature 98.5 F 12/04/24 13:24 Pulse Rate 73 12/04/24 17:02 Respiratory Rate 18 12/04/24 17:02 Blood Pressure 138/56 L 12/04/24 17:02 Pulse Oximetry 95 12/04/24 17:02 Oxygen Delivery Nasal Cannula 12/04/24 12:20 Oxygen Flow Rate 4 12/04/24 12:20 Lab Data 12/04/24 12:29 12/04/24 12:29 Labs: Lab Results 12/04/24 12/04/24 12/04/24 Range/Units 12:29 14:04 14:21 WBC 6.7 (4.5-10.0) K/mm3 RBC 4.60 (4.2-5.4) M/mm3 Hgb 12.7 (12.0-15.0) g/dL Hct 41.5 (37.0-47.0) % MCV 90.2 (80-100) fl MCH 27.6 (26-34) pg MCHC 30.6 L (32-36) g/dl RDW 14.7 H (11.5-14.5) % Plt Count 231 (150-375) k/mm3 MPV 11.4 H (7.4-10.4) fl Immature Gran % (Auto) 0.6 H (0-0.5) % Neut % (Auto) 58.0 (45.5-73.1) % Lymph % (Auto) 23.4 (18.3-44.2) % Mcdonough % (Auto) 14.0 H (2.6-8.5) % Eos % (Auto) 3.4 (0-4.4) % Baso % (Auto) 0.6 (0.2-1.2) % Lymph # (Auto) 1.57 (0.9-3.2) K/mm3 Mcdonough # (Auto) 0.9 H (0.1-0.6) K/mm3 Eos # (Auto) 0.2 (0-0.3) K/mm3 Baso # (Auto) 0.0 (0.0-0.1) K/mm3 Abs Immat Gran (auto) 0.04 H (0.00-0.031) K/mm3 Absolute Neuts (auto) 3.9 (1.3-6.7) K/mm3 Absolute Nucleated RBC 0.000 (0.0-0.012) K/mm3 Nucleated RBC % 0.0 (0.0-0.2) % PT 13.4 (11.1-14.7) Seconds INR 1.0 APTT 27.9 (22.3-36.8) Seconds D-Dimer 1.17 H (<0.48) ug/mL Sodium 142 (137-145) mmol/L Potassium 4.4 (3.4-5.0) mmol/L Chloride 106 (98-107) mmol/L Carbon Dioxide 29 (22-30) mmol/L Anion Gap 7 (4-12) mmol/L BUN 24 H (7-17) mg/dL Creatinine 1.47 H (0.7-1.0) mg/dL Estim Creat Clear Calc 33 ml/min Estimated GFR 34 L (59 - ) Glucose 106 (65-110) mg/dL Lactic Acid 3.0 H (0.7-2.0) mmol/L Calcium 8.3 L (8.4-10.2) mg/dL Phosphorus 3.5 (2.5-4.5) mg/dL Magnesium 2.5 H (1.6-2.3) mg/dL Total Bilirubin 0.7 (0.2-1.3) mg/dL AST 26 (14-36) U/L ALT 14 (6-35) U/L Alkaline Phosphatase 59 (38-126) U/L Troponin I < 0.012 (0.000-0.034) ng/mL NT-Pro-B Natriuret Pep 158 H (19.9-100) pg/mL Total Protein 7.0 (6.3-8.2) g/dL Albumin 3.7 (3.5-5.1) g/dL Lipase 111 (23-300) U/L Urine Color (Yellow) Urine Appearance (Clear) Urine pH (5.0-9.0) Ur Specific [place] (1.001-1.035) Urine Protein (Negative) mg/dL Urine Glucose (UA) (Negative) mg/dL Urine Ketones (Negative) mg/dL Ur Blood (Man) (Negative) Urine Nitrate (Negative) Urine Bilirubin (Negative) Urine Urobilinogen (<2.0) mg/dL Add Ur Microanalysis Leukocyte Esterase Rfl (Negative) MESFIN/UL Urine RBC (0-2) /hpf Urine WBC (0-3) /hpf Ur Squamous Epith Cells (Few) /hpf Urine Bacteria /hpf Urine Casts Hyaline Casts (None) /lpf Influenza A (RT-PCR) Negative (Negative) Influenza B (RT-PCR) Negative (Negative) RSV (RT-PCR) Negative (Negative) SARS-CoV-2 RNA (RT-PCR) Negative (Negative) 12/04/24 12/04/24 12/04/24 Range/Units 15:08 15:54 18:02 WBC (4.5-10.0) K/mm3 RBC (4.2-5.4) M/mm3 Hgb (12.0-15.0) g/dL Hct (37.0-47.0) % MCV (80-100) fl MCH (26-34) pg MCHC (32-36) g/dl RDW (11.5-14.5) % Plt Count (150-375) k/mm3 MPV (7.4-10.4) fl Immature Gran % (Auto) (0-0.5) % Neut % (Auto) (45.5-73.1) % Lymph % (Auto) (18.3-44.2) % Mcdonough % (Auto) (2.6-8.5) % Eos % (Auto) (0-4.4) % Baso % (Auto) (0.2-1.2) % Lymph # (Auto) (0.9-3.2) K/mm3 Mcdonough # (Auto) (0.1-0.6) K/mm3 Eos # (Auto) (0-0.3) K/mm3 Baso # (Auto) (0.0-0.1) K/mm3 Abs Immat Gran (auto) (0.00-0.031) K/mm3 Absolute Neuts (auto) (1.3-6.7) K/mm3 Absolute Nucleated RBC (0.0-0.012) K/mm3 Nucleated RBC % (0.0-0.2) % PT (11.1-14.7) Seconds INR APTT (22.3-36.8) Seconds D-Dimer (<0.48) ug/mL Sodium (137-145) mmol/L Potassium (3.4-5.0) mmol/L Chloride (98-107) mmol/L Carbon Dioxide (22-30) mmol/L Anion Gap (4-12) mmol/L BUN (7-17) mg/dL Creatinine (0.7-1.0) mg/dL Estim Creat Clear Calc ml/min Estimated GFR (59 - ) Glucose (65-110) mg/dL Lactic Acid Pending (0.7-2.0) mmol/L Calcium (8.4-10.2) mg/dL Phosphorus (2.5-4.5) mg/dL Magnesium (1.6-2.3) mg/dL Total Bilirubin (0.2-1.3) mg/dL AST (14-36) U/L ALT (6-35) U/L Alkaline Phosphatase (38-126) U/L Troponin I < 0.012 (0.000-0.034) ng/mL NT-Pro-B Natriuret Pep (19.9-100) pg/mL Total Protein (6.3-8.2) g/dL Albumin (3.5-5.1) g/dL Lipase (23-300) U/L Urine Color Yellow (Yellow) Urine Appearance Clear (Clear) Urine pH 7.5 (5.0-9.0) Ur Specific [place] 1.014 (1.001-1.035) Urine Protein 1+ H (Negative) mg/dL Urine Glucose (UA) Trace H (Negative) mg/dL Urine Ketones Negative (Negative) mg/dL Ur Blood (Man) Negative (Negative) Urine Nitrate Negative (Negative) Urine Bilirubin Negative (Negative) Urine Urobilinogen 0.2 (<2.0) mg/dL Add Ur Microanalysis Reviewed Leukocyte Esterase Rfl Negative (Negative) MESFIN/UL Urine RBC 0-2 (0-2) /hpf Urine WBC 0-5 (0-3) /hpf Ur Squamous Epith Cells None seen (Few) /hpf Urine Bacteria None seen /hpf Urine Casts 0-2 Hyaline Casts Present (None) /lpf Influenza A (RT-PCR) (Negative) Influenza B (RT-PCR) (Negative) RSV (RT-PCR) (Negative) SARS-CoV-2 RNA (RT-PCR) (Negative) ABG Data ABG results: 12/04/24 13:04 Puncture Site Left radial ABG pH 7.423 ABG pCO2 44.4 ABG pO2 83.1 ABG PO2/FiO2 Ratio 2.31 ABG HCO3 28.3 H ABG O2 Saturation 96.4 ABG O2 Content 17.3 ABG Base Excess 3.4 A-a Gradient 122.1 Oxyhemoglobin 95.6 Total Hemoglobin 12.8 O2 Delivery Device Nasal cannula O2 Liters/Min 4.0 FiO2 36 Critical Care Time Critical Care Time Critical Care Time: Yes Total Critical Care Time: 35 Discharge Plan Discharge Clinical Impression: Acute and chronic respiratory failure, PNA (pneumonia) Patient Disposition: Still a Patient Condition: Stable Patient Language: Maltese Prescriptions: No Action pregabalin 200 mg capsule 200 mg PO BID rosuvastatin 10 mg tablet 10 mg PO DAILY magnesium oxide 400 mg magnesium tablet 400 mg PO BID Trintellix 20 mg tablet 20 mg PO DAILY hydrocodone-acetaminophen 10-325 mg tablet 1 tablet PO Q8H PRN (Reason: PAIN) albuterol sulfate 2.5 mg /3 mL (0.083 %) solution for nebulization 2.5 mg inhalation Q4-6H PRN (Reason: shortness of breath or wheezing) Qty: 180 2RF furosemide 20 mg tablet 20 mg PO DAILY oxybutynin chloride 10 mg Tablet Extended Release 24hr 10 mg PO HS amlodipine 5 mg Tablet 5 mg PO DAILY ergocalciferol (vitamin D2) 1,250 mcg (50,000 unit) Capsule 1,250 mcg PO WEEKLY Rx Instructions: takes mondays albuterol sulfate 90 mcg/actuation HFA aerosol inhaler 2 puff inhalation QID PRN (Reason: shortness of breath or wheezing) Qty: 8.5 0RF azithromycin 250 mg tablet See Rx Instructions .ROUTE .COMPLEX Qty: 6 0RF Rx Instructions: For 250 mg dose pack: take 500 mg today (day 1), then 250 mg for 4 days (days 2-5) benzonatate 100 mg capsule 100 mg PO TID PRN (Reason: cough) Qty: 14 0RF albuterol sulfate 90 mcg/actuation HFA aerosol inhaler 1 puff inhalation QID Qty: 6.7 0RF amoxicillin-pot clavulanate 875-125 mg tablet 1 tablet PO Q12H 7 Days Qty: 14 0RF dapagliflozin propanediol 10 mg tablet 10 mg PO DAILY Qty: 90 3RF Breztri Aerosphere 160-9-4.8 mcg/actuation HFA aerosol inhaler See Rx Instructions .ROUTE .COMPLEX Qty: 10.7 6RF Dose Instruction: INHALE 2 PUFFS BY MOUTH TWICE DAILY. RINSE MOUTH WITH WATER AND SPIT Rx Instructions: INHALE 2 PUFFS BY MOUTH TWICE DAILY. RINSE MOUTH WITH WATER AND SPIT dexamethasone 1 mg tablet 1 mg PO ONCE Qty: 1 0RF Rx Instructions: Please take this night before around 11 pm and go for blood test in the morning around 8 am levothyroxine [Unithroid] 100 mcg tablet 100 mcg PO DAILY Qty: 90 0RF Follow-up/Referrals: Jn Velásquez MD [Primary Care Provider] -
--- OUTSIDE RECORDS SUMMARY | 2024-12-04 13:03 | XMS_ITS | Data Portability ---
Author Organization [facility] [employer], Main Office Address [address] [place] [address] Assessment No assessment recorded. Plan of Treatment Reminders Order Date Submit Date Provider Last Modified By Organization Details Last Modified Time Details Appointments None recorded. Lab lipid panel, serum 2022 023 [facility] (Lab), [address] [place], [address], 3 13:44:14 glycohemogl obin, total, blood 2022 023 [facility] (Lab), [address] [place], [address], 3 14:14:23 CMP, serum or plasma 2022 023 [facility] (Lab), [address] [place], [address], 3 14:34:25 TSH, serum or plasma 2022 023 [facility] (Lab), [address] [place], [address], 3 14:18:28 T4, free, serum 2022 023 [facility] (Lab), [address] [place], [address], 3 14:08:54 T3, free, serum or plasma 2022 023 [facility] (Lab), [address] [place], [address], 14:08:59 Referral endocrinolo gy referral - bilateral adrenal hyperplasia with abnormal DST, unable to tolerate korlym 2022 023 [email or web address] [facility], [address] [facility], [place], [address], 12:50:55 Procedures None recorded. Surgeries None recorded. Imaging None recorded. Medication Orders Wegovy 0.5 mg/0.5 mL subcutaneou s pen injector 2022 023 [facility] #[id number], [address] [place], [place], [id number], 3 12:27:44 Korlym 300 mg tablet 2022 023 [email or web address] [facility], [address] [place], [address], 12:29:23 Unithroid 100 mcg tablet 2022 023 [email or web address] #[id number], [address] [place], [place], [id number], 3 12:28:35 Ozempic 2 mg/dose (8 mg/3 mL) subcutaneou s pen injector 2022 023 [facility], [address], [place], [id number], 4 13:30:28 Farxiga 5 mg tablet 2022 023 [facility][id number], [address] [place], [place], [id number], 4 13:29:03 Unithroid 75 mcg tablet 2022 023 [email or web address] [id number], [address], [place], [id number], 13:31:10 Patient TargetsNo targets recorded. Patient InstructionsNo instructions recorded. Reason for Referral Endocrinology Referral for H ypercortisolism bilateral adrenal hyperplasia with abnormal DST, unable to tolerate korlym Referring Physician: Stephanie Morrissey, Endocrinology, Encounter Date: 07/14/2023 Results Created Date Observation Date Name Description Value Unit Range Abnormal Flag Note LastModifiedBy Organization Detail LastModifiedTime 12/14/1912/14/2022 T3 FREE free T3 2.6 pg/mL 2.77-5 .27 low Not Available [facility] (Lab) [address] [place], [address], 12/14/2022 15:23:41 12/14/19 23 12/14/2022 T4 FREE free T4 1.40 NG/dL 0.78-2 .19 Not Available [facility] (Lab) [address] [place], [address], 12/14/2022 15:23:38 12/14/19 23 12/14/2022 TSH thyroid-stim ulating hormone 0.598 uIU/m L 0.465- 4.680 Not Available [facility] (Lab) [address] [place], [address], 12/14/2022 15:12:15 12/14/1912/14/2022 HEMOG LOBIN A1C HA1C 5.6 % 4.0-6. 0 Diabe brianna Scree gisele Crite pamela: <5.7% Consi stent with absen ce of diabe brianna 5.7-6 .4% Consi stent with incre ased risk for diabe brianna (pred iabet es) >OR=6 .5% Consi stent with diabe brianna REFER ENCE: Diabe brianna Care 2016, 39(Anderson ppl.1 ):s13 -s22 Not Available [facility] (Lab) [address] [place], [address], 12/14/2022 14:54:35 12/14/19 23 12/14/2022 COMPR EHENS KECIA METAB OLIC PANEL A/G ratio 1.3 ratio 1.0-2. 0 Not Available [facility] (Lab) [address] [place], [address], 12/14/2022 14:24:11 12/14/19 23 12/14/2022 COMPR EHENS KECIA METAB OLIC PANEL carbon dioxide 25 mmol/ L 22-30 Not Available [facility] (Lab) [address] [place], [address], 12/14/2022 14:24:11 12/14/19 23 12/14/2022 COMPR EHENS KECIA METAB OLIC PANEL sodium 140 mmol/ L 137-14 5 Not Available [facility] (Lab) [address] [place], [address], 12/14/2022 14:24:11 12/14/19 23 12/14/2022 COMPR EHENS KECIA METAB OLIC PANEL potassium 4.0 mmol/ L 3.5-5. 1 Not Available [facility] (Lab) [address] [place], [address], 12/14/2022 14:24:11 12/14/19 23 12/14/2022 COMPR EHENS KECIA METAB OLIC PANEL chloride 103 mmol/ L 98-107 Not Available [facility] (Lab) [address] [place], [address], 12/14/2022 14:24:11 12/14/19 23 12/14/2022 COMPR EHENS KECIA METAB OLIC PANEL anion gap 16.0 mmol/ L 14-22 Not Available [facility] (Lab) [address] [place], [address], 12/14/2022 14:24:11 12/14/19 23 12/14/2022 COMPR EHENS KECIA METAB OLIC PANEL glucose 109 mg/dL 70-99 high Not Available [facility] (Lab) [address] [place], [address], 12/14/2022 14:24:11 12/14/19 23 12/14/2022 COMPR EHENS KECIA METAB OLIC PANEL BUN 17 mg/dL 8-19 Not Available [facility] (Lab) [address] [place], [address], 12/14/2022 14:24:11 12/14/19 23 12/14/2022 COMPR EHENS KECIA METAB OLIC PANEL creatinine 1.74 mg/dL 0.66-1 .25 high Not Available [facility] (Lab) [address] [place], [address], 12/14/2022 14:24:11 12/14/19 23 12/14/2022 COMPR EHENS KECIA METAB OLIC PANEL GFR 29 Refer ence Range : Mclean ge GFR Healt hy Adult : >60 mL/mi n/1.7 3 m2 Chron ic Kidne y Disea se: 15-60 mL/mi n/1.7 3 m2 Kidne y Failu re: <15/m L/min /1.73 m2 www.n iddk. nih.g ov The MDRD study equat ion has not been valid ated in child jason <18 years of age; pregn ant women ; the elder ly >85 years of age; or in some racia l or ethni c subgr oups, such as Hisfl nics. Outsi de the valid ated casper eters , estim ated GFR is less accur ate, requi ring clini shantell judgm ent on a case- by-ca se basis . Clini shantell inter preta tion for other races and ages must be made by the clini alis. The MDRD study equat ion has not been valid ated for the evalu ation of serum creat inine relat ed to nutri janel l statu s or medic ation usage . For perso ns <18 years of age, a pedia tric GFR calcu lator is avail able on the [facility] websi te: https :[email or web address] [email or web address] lynch/karoline ofess ional s/kdo qi/gf r_cal culat or Not Available [facility] (Lab) [address] [place], [address], 12/14/2022 14:24:11 12/14/19 23 12/14/2022 COMPR EHENS KECIA METAB OLIC PANEL alkaline phosphatase 57 U/L 38-126 Not Available [facility] (Lab) [address] [place], [address], 12/14/2022 14:24:11 12/14/19 23 12/14/2022 COMPR EHENS KECIA METAB OLIC PANEL alanine aminotransfe rase 17 U/L 0-35 Not Available [facility] (Lab) [address] [place], [address], 12/14/2022 14:24:11 12/14/19 23 12/14/2022 COMPR EHENS KECIA METAB OLIC PANEL aspartate aminotransfe rase 26 U/L 15-37 Not Available [facility] (Lab) [address] [place], [address], 12/14/2022 14:24:11 12/14/19 23 12/14/2022 COMPR EHENS KECIA METAB OLIC PANEL bilirubin, total 0.60 mg/dL 0.20-1 .30 Not Available [facility] (Lab) [address] [place], [address], 12/14/2022 14:24:11 12/14/19 23 12/14/2022 COMPR EHENS KECIA METAB OLIC PANEL calcium 9.0 mg/dL 8.4-10 .2 Not Available [facility] (Lab) [address] [place], [address], 12/14/2022 14:24:11 12/14/19 23 12/14/2022 COMPR EHENS KECIA METAB OLIC PANEL total protein 7.7 g/dL 6.3-8. 2 Not Available [facility] (Lab) [address] [place], [address], 12/14/2022 14:24:11 12/14/19 23 12/14/2022 COMPR EHENS KECIA METAB OLIC PANEL albumin 4.3 g/dL 3.0-4. 4 Not Available [facility] (Lab) [address] [place], [address], 12/14/2022 14:24:11 12/14/19 23 12/14/2022 COMPR EHENS KECIA METAB OLIC PANEL globulin 3.4 g/dL 2.6-4. 2 Not Available [facility] (Lab) [address] [place], [address], 12/14/2022 14:24:11 12/14/19 23 12/14/2022 MICRO ALBUM N RNDM W/CRE AT RATIO ur creat 122.62 mg/dL REFER ENCE RANGE NOT ESTAB LISHE D FOR RANDO M URINE CREAT ININE Not Available [facility] (Lab) [address] [place], [address], 12/14/2022 13:55:12 12/14/19 23 12/14/2022 MICRO ALBUM N RNDM W/CRE AT RATIO microalbumin , urine 217.1 mg/L 0.0-16 .6 high Not Available [facility] (Lab) [address] [place], [address], 12/14/2022 13:55:12 12/14/19 23 12/14/2022 MICRO ALBUM N RNDM W/CRE AT RATIO microalbumin /creatinine ratio 177 mcg/m g 0-29 high THE AMERI CAN DIABE BRIANNA ASSOC IATIO N DEFIN ES ABNOR MALIT IES IN ALBUM IN EXCRE TION FOLLO WS: CATEG ORY RESUL T (MCG/ MG CREAT ININE ) BHUMI L <30 MICRO ALBUM INURI A 30-29 9 CLINI SHANTELL ALBUM INURI A > OR = 300 THE ADA RECOM MENDS THAT 2 OF 2 SPECI MENS COLLE CTED WITHI N A 3- TO 6-MON TH PERIO D BE ABNOR MAL BEFOR E CONSI JENAE G A PATIE NT TO HAVE CROSS ED ONE OF THESE DIAGN OSTIC THRES HOLDS . REFER ENCE: DIABE BRIANNA CARE, VOL. 26: S94-S 96, NOVUA RY 2002 Not Available [facility] (Lab) [address] [place], [address], 12/14/2022 13:55:12 03/07/20 23 03/07/2023 MICRO ALBUM N RNDM W/CRE AT RATIO ur creat 133.14 mg/dL REFER ENCE RANGE NOT ESTAB LISHE D FOR RANDO M URINE CREAT ININE Not Available [facility] (Lab) [address] [place], [address], 03/07/2023 14:32:57 03/07/20 23 03/07/2023 MICRO ALBUM N RNDM W/CRE AT RATIO microalbumin , urine 162.5 mg/L 0.0-16 .6 high Not Available [facility] (Lab) [address] [place], [address], 03/07/2023 14:32:57 03/07/20 23 03/07/2023 MICRO ALBUM N RNDM W/CRE AT RATIO microalbumin /creatinine ratio 122 mcg/m g 0-29 high THE AMERI CAN DIABE BRIANNA ASSOC IATIO N DEFIN ES ABNOR MALIT IES IN ALBUM IN EXCRE TION FOLLO WS: CATEG ORY RESUL T (MCG/ MG CREAT ININE ) BHUMI L <30 MICRO ALBUM INURI A 30-29 9 CLINI SHANTELL ALBUM INURI A > OR = 300 THE ADA RECOM MENDS THAT 2 OF 2 SPECI MENS COLLE CTED WITHI N A 3- TO 6-MON TH PERIO D BE ABNOR MAL BEFOR E CONSI JENAE G A PATIE NT TO HAVE CROSS ED ONE OF THESE DIAGN OSTIC THRES HOLDS . REFER ENCE: DIABE BRIANNA CARE, VOL. 26: [id number] 96, 2002 Not Available [facility] (Lab) [address] [place], [address], 03/07/2023 14:32:57 03/07/20 23 03/07/2023 COMPR EHENS KECIA METAB OLIC PANEL sodium 138 mmol/ L 137-14 5 Not Available [facility] (Lab) [address] [place], [address], 03/07/2023 14:33:43 03/07/20 23 03/07/2023 COMPR EHENS KECIA METAB OLIC PANEL potassium 4.9 mmol/ L 3.5-5. 1 Not Available [facility] (Lab) [address] [place], [address], 03/07/2023 14:33:43 03/07/20 23 03/07/2023 COMPR EHENS KECIA METAB OLIC PANEL chloride 105 mmol/ L 98-107 Not Available [facility] (Lab) [address] [place], [address], 03/07/2023 14:33:43 03/07/20 23 03/07/2023 COMPR EHENS KECIA METAB OLIC PANEL carbon dioxide 26 mmol/ L 22-30 Not Available [facility] (Lab) [address] [place], [address], 03/07/2023 14:33:43 03/07/20 23 03/07/2023 COMPR EHENS KECIA METAB OLIC PANEL anion gap 11.9 mmol/ L 14-22 low Not Available [facility] (Lab) [address] [place], [address], 03/07/2023 14:33:43 03/07/20 23 03/07/2023 COMPR EHENS KECIA METAB OLIC PANEL glucose 119 mg/dL 70-99 high Not Available [facility] (Lab) [address] [place], [address], 03/07/2023 14:33:43 03/07/20 23 03/07/2023 COMPR EHENS KECIA METAB OLIC PANEL BUN 25 mg/dL 8-19 high Not Available [facility] (Lab) [address] [place], [address], 03/07/2023 14:33:43 03/07/20 23 03/07/2023 COMPR EHENS KECIA METAB OLIC PANEL creatinine 1.89 mg/dL 0.66-1 .25 high Not Available [facility] (Lab) [address] [place], [address], 03/07/2023 14:33:43 03/07/20 23 03/07/2023 COMPR EHENS KECIA METAB OLIC PANEL GFR 26 Refer ence Range : Mclean ge GFR Healt hy Adult : >60 mL/mi n/1.7 3 m2 Chron ic Kidne y Disea se: 15-60 mL/mi n/1.7 3 m2 Kidne y Failu re: <15/m L/min /1.73 m2 www.n iddk. nih.g ov The MDRD study equat ion has not been valid ated in child jaosn <18 years of age; pregn ant women ; the elder ly >85 years of age; or in some racia l or ethni c subgr oups, such as [facility] nics. Outsi de the valid ated casper eters , estim ated GFR is less accur ate, requi ring clini shantell judgm ent on a case- by-ca se basis . Clini shantell inter preta tion for other races and ages must be made by the clini alis. The MDRD study equat ion has not been valid ated for the evalu ation of serum creat inine relat ed to nutri janel l statu s or medic ation usage . For perso ns <18 years of age, a pedia tric GFR calcu lator is avail able on the [facility] websi te: https :[email or web address] matthew pepe.o rg/pr ofess ional s/kdo qi/gf r_cal culat or Not Available [facility] (Lab) [address] [place], [address], 03/07/2023 14:33:43 03/07/20 23 03/07/2023 COMPR EHENS KECIA METAB OLIC PANEL alkaline phosphatase 57 U/L 38-126 Not Available [facility] (Lab) [address] [place], [address], 03/07/2023 14:33:43 03/07/20 23 03/07/2023 COMPR EHENS KECIA METAB OLIC PANEL alanine aminotransfe rase 17 U/L 0-35 Not Available [facility] (Lab) [address] [place], [address], 03/07/2023 14:33:43 03/07/20 23 03/07/2023 COMPR EHENS KECIA METAB OLIC PANEL aspartate aminotransfe rase 29 U/L 15-37 Not Available [facility] (Lab) [address] [place], [address], 03/07/2023 14:33:43 03/07/20 23 03/07/2023 COMPR EHENS KECIA METAB OLIC PANEL bilirubin, total 0.70 mg/dL 0.20-1 .30 Not Available [facility] (Lab) [address] [place], [address], 03/07/2023 14:33:43 03/07/20 23 03/07/2023 COMPR EHENS KECIA METAB OLIC PANEL calcium 9.3 mg/dL 8.4-10 .2 Not Available [facility] (Lab) [address] [place], [address], 03/07/2023 14:33:43 03/07/20 23 03/07/2023 COMPR EHENS KECIA METAB OLIC PANEL total protein 7.5 g/dL 6.3-8. 2 Not Available [facility] (Lab) [address] [place], [address], 03/07/2023 14:33:43 03/07/20 23 03/07/2023 COMPR EHENS KECIA METAB OLIC PANEL albumin 4.2 g/dL 3.0-4. 4 Not Available [facility] (Lab) [address] [place], [address], 03/07/2023 14:33:43 03/07/20 23 03/07/2023 COMPR EHENS KECIA METAB OLIC PANEL globulin 3.3 g/dL 2.6-4. 2 Not Available [facility] (Lab) [address] [place], [address], 03/07/2023 14:33:43 03/07/20 23 03/07/2023 COMPR EHENS KECIA METAB OLIC PANEL A/G ratio 1.3 ratio 1.0-2. 0 Not Available [facility] (Lab) [address] [place], [address], 03/07/2023 14:33:43 03/07/20 23 03/07/2023 PHOSP HORUS phosphorus 4.2 mg/dL 2.5-4. 5 Not Available [facility] (Lab) [address] [place], [address], 03/07/2023 14:33:47 03/07/20 23 03/07/2023 T4 FREE free T4 1.09 NG/dL 0.78-2 .19 Not Available [facility] (Lab) [address] [place], [address], 03/07/2023 14:39:37 03/07/2003/07/2023 T3 FREE free T3 2.4 pg/mL 2.77-5 .27 low Not Available [facility] (Lab) [address] [place], [address], 03/07/2023 14:39:46 03/07/20 23 03/07/2023 TSH thyroid-stim ulating hormone 11.000 uIU/m L 0.465- 4.680 high Not Available [facility] (Lab) [address] [place], [address], 03/07/2023 14:52:02 03/07/20 23 03/07/2023 HEMOG LOBIN A1C HA1C 6.3 % 4.0-6. 0 high Diabe brianna Scree gisele Crite pamela: <5.7% Consi stent with absen ce of diabe brianna 5.7-6 .4% Consi stent with incre ased risk for diabe brianna (pred iabet es) >OR=6 .5% Consi stent with diabe brianna REFER ENCE: Diabe brianna Care 2016, 39( ppl.1 ):s13 -s22 Not Available [facility] (Lab) [address] [place], [address], 03/07/2023 15:53:45 05/13/20 23 05/13/2023 COMPR EHENS KECIA METAB OLIC PANEL sodium 141 mmol/ L 137-14 5 Not Available [facility] (Lab) [address] [place], [address], 05/13/2023 14:34:25 05/13/20 23 05/13/2023 COMPR EHENS KECIA METAB OLIC PANEL potassium 4.4 mmol/ L 3.5-5. 1 Not Available [facility] (Lab) [address] [place], [address], 05/13/2023 14:34:25 05/13/20 23 05/13/2023 COMPR EHENS KECIA METAB OLIC PANEL chloride 101 mmol/ L 98-107 Not Available [facility] (Lab) [address] [place], [address], 05/13/2023 14:34:25 05/13/20 23 05/13/2023 COMPR EHENS KECIA METAB OLIC PANEL carbon dioxide 26 mmol/ L 22-30 Not Available [facility] (Lab) [address] [place], [address], 05/13/2023 14:34:25 05/13/20 23 05/13/2023 COMPR EHENS KECIA METAB OLIC PANEL anion gap 18.4 mmol/ L 14-22 Not Available [facility] (Lab) [address] [place], [address], 05/13/2023 14:34:25 05/13/20 23 05/13/2023 COMPR EHENS KECIA METAB OLIC PANEL glucose 93 mg/dL 70-99 Not Available [facility] (Lab) [address] [place], [address], 05/13/2023 14:34:25 05/13/20 23 05/13/2023 COMPR EHENS KECIA METAB OLIC PANEL BUN 16 mg/dL 8-19 Not Available [facility] (Lab) [address] [place], [address], 05/13/2023 14:34:25 05/13/20 23 05/13/2023 COMPR EHENS KECIA METAB OLIC PANEL creatinine 1.69 mg/dL 0.66-1 .25 high Not Available [facility] (Lab) [address] [place], [address], 05/13/2023 14:34:25 05/13/20 23 05/13/2023 COMPR EHENS KECIA METAB OLIC PANEL GFR 30 Refer ence Range : Mclean ge GFR Healt hy Adult : >60 mL/mi n/1.7 3 m2 Chron ic Kidne y Disea se: 15-60 mL/mi n/1.7 3 m2 Kidne y Failu re: <15/m L/min /1.73 m2 www.n iddk. nih.g ov The MDRD study equat ion has not been valid ated in child jason <18 years of age; pregn ant women ; the elder ly >85 years of age; or in some racia l or ethni c subgr oups, such as Hispa nics. Outsi de the valid ated casper eters , estim ated GFR is less accur ate, requi ring clini shantell judgm ent on a case- by-ca se basis . Clini shantell inter preta tion for other races and ages must be made by the clini alis. The MDRD study equat ion has not been valid ated for the evalu ation of serum creat inine relat ed to nutri janel l statu s or medic ation usage . For perso ns <18 years of age, a pedia tric GFR calcu lator is avail able on the [facility] websi te: https :[email or web address] moran.chay pepe.o cris/pr ofess ional s/kdo qi/gf r_cal culat or Not Available [facility] (Lab) [address] [place], [address], 05/13/2023 14:34:25 05/13/20 23 05/13/2023 COMPR EHENS KECIA METAB OLIC PANEL alkaline phosphatase 58 U/L 38-126 Not Available [facility] (Lab) [address] [place], [address], 05/13/2023 14:34:25 05/13/20 23 05/13/2023 COMPR EHENS KECIA METAB OLIC PANEL alanine aminotransfe rase 16 U/L 0-35 Not Available [facility] (Lab) [address] [place], [address], 05/13/2023 14:34:25 05/13/20 23 05/13/2023 COMPR EHENS KECIA METAB OLIC PANEL aspartate aminotransfe rase 28 U/L 15-37 Not Available [facility] (Lab) [address] [place], [address], 05/13/2023 14:34:25 05/13/20 23 05/13/2023 COMPR EHENS KECIA METAB OLIC PANEL bilirubin, total 0.70 mg/dL 0.20-1 .30 Not Available [facility] (Lab) [address] [place], [address], 05/13/2023 14:34:25 05/13/20 23 05/13/2023 COMPR EHENS KECIA METAB OLIC PANEL calcium 9.3 mg/dL 8.4-10 .2 Not Available [facility] (Lab) [address] [place], [address], 05/13/2023 14:34:25 05/13/20 23 05/13/2023 COMPR EHENS KECIA METAB OLIC PANEL total protein 7.2 g/dL 6.3-8. 2 Not Available [facility] (Lab) [address] [place], [address], 05/13/2023 14:34:25 05/13/20 23 05/13/2023 COMPR EHENS KECIA METAB OLIC PANEL albumin 4.0 g/dL 3.0-4. 4 Not Available [facility] (Lab) [address] [place], [address], 05/13/2023 14:34:25 05/13/20 23 05/13/2023 COMPR EHENS KECIA METAB OLIC PANEL globulin 3.2 g/dL 2.6-4. 2 Not Available [facility] (Lab) [address] [place], [address], 05/13/2023 14:34:25 05/13/20 23 05/13/2023 COMPR EHENS KECIA METAB OLIC PANEL A/G ratio 1.3 ratio 1.0-2. 0 Not Available [facility] (Lab) [address] [place], [address], 05/13/2023 14:34:25 07/04/20 23 07/04/2023 LIPID PANEL cholesterol 165 mg/dL 140-19 9 NIH RHYS NSUS RECOM MENDA TION FOR JENNIFER STERO L: ADULT CHILD LOW RISK: <200 <170 BORDE RLINE : <200- 239 ----- HIGH RISK: >240 >200 Not Available [facility] (Lab) [address] [place], [address], 07/04/2023 13:44:14 07/04/20 23 07/04/2023 LIPID PANEL triglyceride s 173 mg/dL 0-150 high NIH RHYS NSUS REPOR T RECOM MENDA TION FOR TRIGL YCERI LINO: ADULT CHILD LOW RISK: <150 ----- BODER LINE: 150-1 99 ----- HIGH RISK: >200 ----- Not Available [facility] (Lab) [address] [place], [address], 07/04/2023 13:44:14 07/04/20 23 07/04/2023 LIPID PANEL HDL cholesterol 51 mg/dL 40- Not Available [facility] (Lab) [address] [place], [address], 07/04/2023 13:44:14 07/04/20 23 07/04/2023 LIPID PANEL LDL cholesterol, calculated 79 mg/dL 0-130 NIH RHYS NSUS REPOR T RECOM MENDA TIONS FOR LDL: ADULT CHILD LOW RISK <130 <110 (OPTI MAL LDL) <100 ----- BORDE RLINE : 130-1 59 ----- HIGH RISK: >160 >130 A TRIGL YCERI DE RESUL T >400 INVAL IDATE S THE CALCU LATIO N FOR LDL FRACT IONAT ION - THE LDL RESUL T WILL NOT BE REPOR TERRY. Not Available [facility] (Lab) [address] [place], [address], 07/04/2023 13:44:14 07/04/20 23 07/04/2023 COMPR EHENS KECIA METAB OLIC PANEL sodium 140 mmol/ L 137-14 5 Not Available [facility] (Lab) [address] [place], [address], 07/04/2023 13:44:20 07/04/20 23 07/04/2023 COMPR EHENS KECIA METAB OLIC PANEL potassium 4.8 mmol/ L 3.5-5. 1 Not Available [facility] (Lab) [address] [place], [address], 07/04/2023 13:44:20 07/04/20 23 07/04/2023 COMPR EHENS KECIA METAB OLIC PANEL chloride 102 mmol/ L 98-107 Not Available [facility] (Lab) [address] [place], [address], 07/04/2023 13:44:20 07/04/20 23 07/04/2023 COMPR EHENS KECIA METAB OLIC PANEL carbon dioxide 29 mmol/ L 22-30 Not Available [facility] (Lab) [address] [place], [address], 07/04/2023 13:44:20 07/04/20 23 07/04/2023 COMPR EHENS KECIA METAB OLIC PANEL anion gap 13.8 mmol/ L 14-22 low Not Available [facility] (Lab) [address] [place], [address], 07/04/2023 13:44:20 07/04/20 23 07/04/2023 COMPR EHENS KECIA METAB OLIC PANEL glucose 99 mg/dL 70-99 Not Available [facility] (Lab) [address] [place], [address], 07/04/2023 13:44:20 07/04/20 23 07/04/2023 COMPR EHENS KECIA METAB OLIC PANEL BUN 24 mg/dL 8-19 high Not Available [facility] (Lab) [address] [place], [address], 07/04/2023 13:44:20 07/04/20 23 07/04/2023 COMPR EHENS KECIA METAB OLIC PANEL creatinine 1.83 mg/dL 0.66-1 .25 high Not Available [facility] (Lab) [address] [place], [address], 07/04/2023 13:44:20 07/04/20 23 07/04/2023 COMPR EHENS KECIA METAB OLIC PANEL GFR 27 Refer ence Range : [place] ge GFR Healt hy Adult : >60 mL/mi n/1.7 3 m2 Chron ic Kidne y Disea se: 15-60 mL/mi n/1.7 3 m2 Kidne y Failu re: <15/m L/min /1.73 m2 [email or web address] The MDRD study equat ion has not been valid ated in child jason <18 years of age; pregn ant women ; the elder ly >85 years of age; or in some racia l or ethni c subgr oups, such as James nics. Outsi de the valid ated casper eters , estim ated GFR is less accur ate, requi ring clini shantell judgm ent on a case- by-ca se basis . Clini shantell inter preta tion for other races and ages must be made by the clini alis. The MDRD study equat ion has not been valid ated for the evalu ation of serum creat inine relat ed to nutri janel l statu s or medic ation usage . For perso ns <18 years of age, a pedia tric GFR calcu lator is avail able on the [facility] websi te: [email or web address] :[email or web address] [email or web address] ional [email or web address]/kdo qi/gf r_[email or web address] culat or Not Available [facility] (Lab) [address] [place], [address], 07/04/2023 13:44:20 07/04/20 23 07/04/2023 COMPR EHENS KECIA METAB OLIC PANEL alkaline phosphatase 70 U/L 38-126 Not Available [facility] (Lab) [address] [place], [address], 07/04/2023 13:44:20 07/04/20 23 07/04/2023 COMPR EHENS KECIA METAB OLIC PANEL alanine aminotransfe rase 16 U/L 0-35 Not Available [facility] (Lab) [address] [place], [address], 07/04/2023 13:44:20 07/04/20 23 07/04/2023 COMPR EHENS KECIA METAB OLIC PANEL aspartate aminotransfe rase 26 U/L 15-37 Not Available [facility] (Lab) [address] [place], [address], 07/04/2023 13:44:20 07/04/20 23 07/04/2023 COMPR EHENS KECIA METAB OLIC PANEL bilirubin, total 0.50 mg/dL 0.20-1 .30 Not Available [facility] (Lab) [address] [place], [address], 07/04/2023 13:44:20 07/04/20 23 07/04/2023 COMPR EHENS KECIA METAB OLIC PANEL calcium 9.2 mg/dL 8.4-10 .2 Not Available [facility] (Lab) [address] [place], [address], 07/04/2023 13:44:20 07/04/20 23 07/04/2023 COMPR EHENS KECIA METAB OLIC PANEL total protein 6.9 g/dL 6.3-8. 2 Not Available [facility] (Lab) [address] [place], [address], 07/04/2023 13:44:20 07/04/20 23 07/04/2023 COMPR EHENS KECIA METAB OLIC PANEL albumin 3.8 g/dL 3.0-4. 4 Not Available [facility] (Lab) [address] [place], [address], 07/04/2023 13:44:20 07/04/20 23 07/04/2023 COMPR EHENS KECIA METAB OLIC PANEL globulin 3.1 g/dL 2.6-4. 2 Not Available [facility] (Lab) [address] [place], [address], 07/04/2023 13:44:20 07/04/20 23 07/04/2023 COMPR EHENS KECIA METAB OLIC PANEL A/G ratio 1.2 ratio 1.0-2. 0 Not Available [facility] (Lab) [address] [place], [address], 07/04/2023 13:44:20 07/04/20 23 07/04/2023 T4 FREE free T4 0.92 NG/dL 0.78-2 .19 Not Available [facility] (Lab) [address] [place], [address], 07/04/2023 14:08:54 07/04/20 23 07/04/2023 T3 FREE free T3 3.4 pg/mL 2.77-5 .27 Not Available [facility] (Lab) [address] [place], [address], 07/04/2023 14:08:59 07/04/20 23 07/04/2023 HEMOG LOBIN A1C HA1C 5.9 % 4.0-6. 0 Diabe brianna Scree gisele Crite pamela: <5.7% Consi stent with absen ce of diabe brianna 5.7-6 .4% Consi stent with incre ased risk for diabe brianna (pred iabet es) >OR=6 .5% Consi stent with diabe brianna REFER ENCE: Diabe brianna Care 2016, 39(Anderson ppl.1 ):s13 -s22 Not Available [facility] (Lab) [address] [place], [address], 07/04/2023 14:14:23 07/04/20 23 07/04/2023 TSH thyroid-stim ulating hormone 1.210 uIU/m L 0.465- 4.680 Not Available [facility] (Lab) [address] [place], [address], 07/04/2023 14:18:28 03/16/20 23 03/16/2023 US, demetrius y No observ ation record ed. [email or web address] [facility] [address], [place], [address], 04/05/2023 16:52:27 Result Notes None recorded. Problems Name Problem SNOMED Code Status Onset Date Resolution Date Notes Provider Name and Address Organization Details Recorded Time Dyspnea 563729903 Active 2021 Ingrid Nava null, [facility] 3 16:49:46 Postoperative hypothyroidism 92638227 Active 2021 Ingrid Brandy null, [facility] 3 16:49:46 Vitamin D deficiency 87439517 Active 2021 Ingrid Brandy null, [facility] 3 16:49:46 Dyslipidemia 658833031 Active 2021 Ingrid Brandy null, [facility] 3 16:49:46 Hypothyroidism 82207410 Active 2021 Ingrid Brandy null, [facility] 3 16:49:46 Hypokalemia 84760309 Active 2021 Ingrid Brandy null, [facility] 3 16:49:47 Hypercortisoli sm 44468557 Active 2021 Ingrid Brandy null, [facility] 3 16:49:47 Vitamin B12 deficiency (non anemic) 36866991 Active 2021 Ingrid Brandy null, [facility] 3 16:49:47 Prediabetes 759103874 Active 2021 Ingrid Brandy null, [facility] 3 16:49:47 Obesity 502167286 Active 2022 Ingridyaniv Nava null, [facility] 3 16:49:47 Well controlled type 2 diabetes mellitus 117072228 Active 2022 Stephanie Morrissey MD [address] [facility] [address], [place], [address], [facility] 3 12:31:31 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 Please review these documents and add these problems to the patient's chart manually as needed. Problem Notes None recorded. Procedures Surgical History Date Name Laterality Status Provider Name and Address Organization Details Recorded Time 11/09/19 Foot Surgery completed Not Available [facility] 01/05/2023 22:43:30 removal of cardiac pacemaker completed Not Available [facility] 01/05/2023 22:43:30 Pacemaker completed Not Available [facility] 01/05/2023 22:43:30 Hysterectomy completed Not Available [facility] 01/05/2023 22:43:30 cholecystectomy completed Not Available [facility] 01/05/2023 22:43:30 Imaging Results Imaging Date Name Status LastModified by Organiz ation Details LastModified Time 03/16/2023 US, kidney completed [facility] [address], [place], [address], 04/05/2023 16:52:27 Procedure Notes None recorded. Medical Equipment None Reported. Allergies Allergen ID Allergen Name Allergen Category Reaction Reaction Severity Criticality Documentation Date Start Date Code Code System Note Provider Name and Address Organization Details Recorded Time 20447 lisinopri l medicatio n Not available Not available Not available 01/05/2023 92972 RxNorm Not Available [facility] 22:48:44 Medications Name Sig Start Date Stop Date Status Note LastModified by Organization Details LastModified Time losartan 50 mg tablet 10/15 completed Not Available Not Available Not Available fluoxetine 40 mg capsule TAKE 1 CAPSULE BY MOUTH EVERY DAY 12/17 completed Not Available Not Available Not Available amoxicillin 500 mg capsule TAKE FOUR CAPSULES BY MOUTH ONE HOUR BEFORE APPOINTME NT 10/15 completed Not Available Not Available Not Available atorvastati n 40 mg tablet TAKE 1 TABLET BY MOUTH EVERY EVENING 09/27 completed Not Available Not Available Not Available levothyroxi ne 175 mcg tablet TAKE 1 TABLET BY MOUTH ONCE DAILY IN THE MORNING 07/14 completed Not Available Not Available Not Available atorvastati n 80 mg tablet 10/15 completed Not Available Not Available Not Available venlafaxine ER 37.5 mg capsule,ext ended release 24 hr TAKE 1 CAPSULE BY MOUTH EVERY DAY IN THE MORNING 01/21 completed Not Available Not Available Not Available venlafaxine ER 75 mg capsule,ext ended release 24 hr TAKE 2 CAPSULES BY MOUTH EVERY DAY IN THE MORNING 10/15 completed Not Available Not Available Not Available Unithroid 88 mcg tablet Take 1 tablet every day by oral route in the morning for 90 days. 10/15 completed Not Available Not Available Not Available gabapentin 600 mg tablet TAKE 1 TABLET BY MOUTH THREE TIMES DAILY 09/27 completed Not Available Not Available Not Available albuterol sulfate 2.5 mg/3 mL (0.083 %) solution for nebulizatio n USE 1 VIAL VIA NEBULIZER EVERY 6 HOURS NEEDED FOR SHORTNESS OF BREATH 09/27 completed Not Available Not Available Not Available trazodone 50 mg tablet TAKE 1 TABLET BY MOUTH EVERY NIGHT AT BEDTIME 05/27 completed Not Available Not Available Not Available cetirizine 10 mg tablet TAKE 1 TABLET BY MOUTH ONCE DAILY 09/27 completed Not Available Not Available Not Available oxybutynin chloride ER 10 mg tablet,exte nded release 24 hr TAKE 1 TABLET BY MOUTH DAILY 09/27 completed Not Available Not Available Not Available azithromyci n 250 mg tablet TAKE 2 TABLETS BY MOUTH FOR 1 DAY THEN TAKE 1 TABLET BY MOUTH EACH DAY FOR 4 DAYS 09/27 completed Not Available Not Available Not Available hydrocodone 5 mg-acetamin ophen 325 mg tablet TAKE 1 TABLET BY MOUTH EVERY 8 HOURS NEEDED FOR PAIN 09/27 completed Not Available Not Available Not Available tretinoin 0.025 % topical cream APPLY A PEA SIZED AMOUNT TO AFFECTED AREA AT BED TIME. 07/23 completed Not Available Not Available Not Available ondansetron HCl 4 mg tablet TAKE 1 TABLET BY MOUTH 4 TIMES DAILY NEEDED 12/17 completed Not Available Not Available Not Available prednisone 20 mg tablet TAKE 2 TABLETS BY MOUTH DAILY FOR 5 DAYS 09/27 completed Not Available Not Available Not Available isosorbide mononitrate ER 30 mg tablet,exte nded release 24 hr TAKE 1 TABLET BY MOUTH EVERY DAY 09/27 completed Not Available Not Available Not Available sertraline 100 mg tablet 09/27 completed Not Available Not Available Not Available atenolol 25 mg tablet 09/27 completed Not Available Not Available Not Available venlafaxine ER 150 mg capsule,ext ended release 24 hr TAKE 1 CAPSULE BY MOUTH EVERY DAY 10/15 completed Not Available Not Available Not Available torsemide 10 mg tablet 10/15 completed Not Available Not Available Not Available hydralazine 25 mg tablet 10/15 completed Not Available Not Available Not Available Klor-Con 20 mEq oral packet MIX CONTENTS OF 1 PACKET WITH LIQUID AND DRINK BY MOUTH DAILY 10/15 completed Not Available Not Available Not Available phentermine 37.5 mg tablet TAKE 1 TABLET BY MOUTH EVERY DAY 10/15 completed Not Available Not Available Not Available chlorthalid one 25 mg tablet 09/27 completed Not Available Not Available Not Available amlodipine 5 mg tablet TAKE 1 TABLET BY MOUTH EVERY DAY 09/27 completed Not Available Not Available Not Available allopurinol 100 mg tablet TAKE 1 TABLET BY MOUTH ONCE DAILY 03/17 completed Not Available Not Available Not Available sulfamethox azole 800 mg-trimetho prim 160 mg tablet TAKE 1 TABLET BY MOUTH TWICE DAILY 07/23 completed Not Available Not Available Not Available hydrocodone 10 mg-acetamin ophen 325 mg tablet TAKE 1 TABLET BY MOUTH THREE TIMES DAILY 09/27 completed Not Available Not Available Not Available doxycycline monohydrate 100 mg tablet TAKE 1 TABLET BY MOUTH TWICE DAILY FOR 10 DAYS 10/15 completed Not Available Not Available Not Available quetiapine 100 mg tablet TAKE 1 TABLET BY MOUTH EVERY DAY AT BEDTIME 09/27 completed Not Available Not Available Not Available spironolact one 25 mg tablet TAKE 1 TABLET BY MOUTH EVERY DAY 10/15 completed Not Available Not Available Not Available oxycodone-a cetaminophe n 5 mg-325 mg tablet TAKE 1 TABLET BY MOUTH EVERY 4 TO 6 HOURS 10/15 completed Not Available Not Available Not Available magnesium oxide 400 mg (241.3 mg magnesium) tablet TAKE 1 TABLET BY MOUTH TWICE DAILY 09/27 completed Not Available Not Available Not Available trazodone 100 mg tablet TAKE 1 TABLET BY MOUTH EVERY DAY AT BEDTIME 09/27 completed Not Available Not Available Not Available tretinoin 0.025 % topical gel APPLY A THIN LAYER TO THE AFFECTED AREA OF RIGHT EAR 09/27 completed Not Available Not Available Not Available Swoopo Ultra Test strips USE TO TEST 2-4 TIMES A WEEK 09/27 completed Not Available Not Available Not Available dexamethaso ne 1 mg tablet TAKE 1 TABLET AT 11PM AND GO TO THE LAB THE NEXT MORNING AT 8AM TO HAVE BLOOD DRAWN 10/15 completed Not Available Not Available Not Available amlodipine 10 mg tablet TAKE 1 TABLET BY MOUTH EVERY DAY 09/27 completed Not Available Not Available Not Available benzonatate 100 mg capsule 01/21 completed Not Available Not Available Not Available fluoxetine 20 mg tablet TAKE 1 TABLET BY MOUTH EVERY DAY IN THE MORNING WITH 60 MG DOSE TO EQUAL 80 MG DAILY 09/21 completed Not Available Not Available Not Available esomeprazol e magnesium 40 mg capsule,del ayed release 09/27 completed Not Available Not Available Not Available levothyroxi ne 125 mcg tablet TAKE 1 TABLET BY MOUTH ONCE DAILY IN THE MORNING 07/14 completed Not Available Not Available Not Available buspirone 10 mg tablet TAKE 1 TABLET BY MOUTH THREE TIMES DAILY WITH MEALS FOR 90 DAYS 09/21 completed Not Available Not Available Not Available prednisone 50 mg tablet TAKE 1 TABLET BY MOUTH DAILY 10/15 completed Not Available Not Available Not Available nitroglycer in 0.4 mg sublingual tablet 09/27 completed Not Available Not Available Not Available Unithroid 100 mcg tablet Take 1 tablet every day by oral route in the morning for 90 days. 07/14 completed Not Available Not Available Not Available gabapentin 300 mg capsule TAKE 1 CAPSULE BY MOUTH THREE TIMES DAILY 09/27 completed Not Available Not Available Not Available aspirin 81 mg chewable tablet 09/27 completed Not Available Not Available Not Available insulin syringe U-100 with needle 1 mL 31 gauge x 03/22 USE DIRECTED TO INJECT B12 ONCE EVERY WEEK 10/15 completed Not Available Not Available Not Available hydralazine 50 mg tablet TAKE 1 TABLET BY MOUTH THREE TIMES DAILY WITH FOOD 09/27 completed Not Available Not Available Not Available cyanocobala min (vit B-12) 1,[address] 1 tablet every day by sublingua l route in the morning for 90 days. 01/21 completed Not Available Not Available Not Available hydrochloro thiazide 25 mg tablet TAKE 1 TABLET BY MOUTH ONCE DAILY 07/23 completed Not Available Not Available Not Available zolpidem 5 mg tablet TAKE 1 TABLET BY MOUTH EVERY DAY AT BEDTIME 09/27 completed Not Available Not Available Not Available furosemide 20 mg tablet 09/27 completed Not Available Not Available Not Available Synthroid 112 mcg tablet TAKE 1 TABLET BY MOUTH EVERY DAY IN THE MORNING 01/21 completed Not Available Not Available Not Available mirtazapine 15 mg tablet TAKE 1 TABLET BY MOUTH EVERY DAY AT BEDTIME 09/27 completed Not Available Not Available Not Available ergocalcife rol (vitamin D2) 1,250 mcg (50,000 unit) capsule TAKE 1 CAPSULE BY MOUTH 1 TIME A WEEK 09/27 completed Not Available Not Available Not Available loteprednol etabonate 0.5 % eye drops,suspe nsion SHAKE LIQUID AND INSTILL 1 DROP IN BOTH EYES THREE TIMES DAILY 03/17 completed Not Available Not Available Not Available budesonide DR - ER 3 mg capsule,del ayed,extend ed release TAKE 1 CAPSULE BY MOUTH DAILY 09/21 completed Not Available Not Available Not Available albuterol sulfate HFA 90 mcg/actuati on aerosol inhaler INHALE 2 PUFFS BY MOUTH EVERY 4 HOURS NEEDED 09/27 completed Not Available Not Available Not Available Unithroid 75 mcg tablet TAKE 1 TABLET BY MOUTH EVERY DAY IN THE MORNING 09/27 completed Not Available Not Available Not Available doxycycline hyclate 20 mg tablet TAKE 2 TABLETS BY MOUTH DAILY WITH FOOD 10/15 completed Not Available Not Available Not Available hydroxyzine HCl 10 mg tablet TAKE 1 TABLET BY MOUTH TWICE DAILY NEEDED 10/15 completed Not Available Not Available Not Available ondansetron 4 mg disintegrat ing tablet TAKE 1 TABLET BY MOUTH NEEDED FOR NAUSEA 09/27 completed Not Available Not Available Not Available cefdinir 300 mg capsule TAKE 1 CAPSULE BY MOUTH EVERY 12 HOURS 10/15 completed Not Available Not Available Not Available losartan 100 mg tablet 01/21 completed Not Available Not Available Not Available fluoxetine 20 mg capsule TAKE 1 CAPSULE BY MOUTH EVERY DAY 09/27 completed Not Available Not Available Not Available fluticasone propionate 50 mcg/actuati on nasal spray,suspe nsion USE 1 SPRAY(S) IN EACH NOSTRIL ONCE DAILY 07/23 completed Not Available Not Available Not Available metformin ER 500 mg tablet,exte nded release 24 hr Take 1 tablet every day by oral route at dinner for 90 days. 05/27 completed Not Available Not Available Not Available phentermine 37.5 mg capsule TAKE 1 CAPSULE BY MOUTH ONCE DAILY BEFORE BREAKFAST 07/23 completed Not Available Not Available Not Available loratadine 10 mg tablet TAKE 1 TABLET BY MOUTH ONCE DAILY 07/23 completed Not Available Not Available Not Available amoxicillin 875 mg-potassiu m clavulanate 125 mg tablet TAKE 1 TABLET BY MOUTH EVERY 12 HOURS FOR 7 DAYS 03/17 completed Not Available Not Available Not Available amoxicillin 500 mg-potassiu m clavulanate 125 mg tablet TAKE 1 TABLET BY MOUTH TWICE DAILY 10/15 completed Not Available Not Available Not Available azithromyci n 500 mg tablet 09/27 completed Not Available Not Available Not Available aripiprazol e 10 mg tablet TAKE 1 TABLET BY MOUTH ONCE DAILY AT BEDTIME FOR 90 DAYS 07/23 completed Not Available Not Available Not Available aripiprazol e 5 mg tablet TAKE 1 TABLET BY MOUTH ONCE DAILY AT BEDTIME FOR 30 DAYS 07/23 completed Not Available Not Available Not Available rosuvastati n 10 mg tablet TAKE 1 TABLET BY MOUTH EVERY DAY 09/27 completed Not Available Not Available Not Available rosuvastati n 40 mg tablet TAKE 1 TABLET BY MOUTH EVERY DAY 10/15 completed Not Available Not Available Not Available duloxetine 20 mg capsule,del ayed release TAKE 1 CAPSULE BY MOUTH EVERY DAY 10/15 completed Not Available Not Available Not Available pregabalin 200 mg capsule TAKE 1 CAPSULE BY MOUTH TWICE DAILY 09/27 completed Not Available Not Available Not Available ramelteon 8 mg tablet TAKE 1 TABLET BY MOUTH EVERY DAY AT BEDTIME 03/17 completed Not Available Not Available Not Available quetiapine 50 mg tablet TAKE 1 TABLET BY MOUTH EVERY DAY AT BEDTIME 10/15 completed Not Available Not Available Not Available FeroSul 325 mg (65 mg iron) tablet TAKE 1 TABLET BY MOUTH TWICE DAILY 01/21 completed Not Available Not Available Not Available cholecalcif ramin (vitamin D3) 50 mcg (2,000 unit) capsule TAKE 2 CAPSULES BY MOUTH EVERY MORNING 10/15 completed Not Available Not Available Not Available levothyroxi ne 100 mcg capsule TAKE ONE CAPSULE BY MOUTH TUESDAY THROUGH 07/23 completed Not Available Not Available Not Available Suprep Bowel Prep Kit 17.5 gram-3.13 gram-1.6 gram oral solution TAKE DIRECTED BY PHYSICIAN 07/23 completed Not Available Not Available Not Available fluoxetine 60 mg tablet TAKE 1 TABLET BY MOUTH EVERY DAY IN THE MORNING 01/21 completed Not Available Not Available Not Available Korlym 300 mg tablet Take 1 tablet every day by oral route in the morning for 90 days. 07/14 completed Not Available Not Available Not Available Combivent Respimat 20 mcg-100 mcg/actuati on solution for inhalation INHALE 1 PUFF BY MOUTH FOUR TIMES DAILY 09/27 completed Not Available Not Available Not Available Breo Ellipta 100 mcg-25 mcg/dose powder for inhalation INHALE 1 PUFF BY MOUTH EVERY DAY DIRECTED 03/17 completed Not Available Not Available Not Available Farxiga 5 mg tablet TAKE 1 TABLET BY MOUTH EVERY DAY IN THE MORNING 09/27 completed Not Available Not Available Not Available Anoro Ellipta 62.5 mcg-25 mcg/actuati on powder for inhalation INHALE 1 PUFF BY MOUTH DAILY 09/27 completed Not Available Not Available Not Available Belsomra 10 mg tablet TAKE 1 TABLET BY MOUTH EVERY DAY AT BEDTIME 09/27 completed Not Available Not Available Not Available Trintellix 10 mg tablet TAKE 1 TABLET BY MOUTH EVERY DAY IN THE MORNING 01/21 completed Not Available Not Available Not Available Trintellix 20 mg tablet TAKE 1 TABLET BY MOUTH EVERY DAY 09/27 completed Not Available Not Available Not Available OneTouch Ultra2 Meter USE DIRECTED 09/27 completed Not Available Not Available Not Available OneTouch Delica Plus Lancet 33 gauge USE EVERY DAY 09/27 completed Not Available Not Available Not Available Ozempic 1 mg/dose (4 mg/3 mL) subcutaneou s pen injector INJECT 1 MG UNDER THE SKIN ON THE SAME DAY ONCE EVERY WEEK 09/27 completed Not Available Not Available Not Available BinaxNOW COVID-19 Ag Self Test kit Use as Directed on the Package 09/27 completed Not Available Not Available Not Available Wegovy 0.5 mg/0.5 mL subcutaneou s pen injector Inject by subcutane ous route for 28 days. 07/14 completed Not Available Not Available Not Available Kerendia 10 mg tablet TAKE 1 TABLET BY MOUTH EVERY DAY 07/14 completed Not Available Not Available Not Available Ozempic 2 mg/dose (8 mg/3 mL) subcutaneou s pen injector INJECT 2MG UNDER THE SKIN AT DINNER ONCE A WEEK 09/27 completed Not Available Not Available Not Available Dodex 1,000 mcg/mL injection solution ADMINISTE R 1 ML UNDER THE SKIN EVERY WEEK IN THE MORNING 10/15 completed Not Available Not Available Not Available Paxlovid 150 mg-100 mg tablets in a dose pack (Renal Dose) TAKE 2 TABLETS TOGETHER (ONE 150 MG NIRMATREL VIR TABLETS AND ONE 100 MG RITONAVIR TABLET) BY MOUTH TWICE DAILY FOR 5 DAYS. 10/15 completed Not Available Not Available Not Available Ozempic 0.25 mg or 0.5 mg (2 mg/3 mL) subcutaneou s pen injector INJECT 0.5 MG UNDER THE SKIN EVERY WEEK 07/14 completed Not Available Not Available Not Available Vitals Date Recorded Body mass index (BMI) Body height Oxygen saturation Oxygen saturation in Arterial blood by Pulse oximetry Heart rate Body temperature Body weight Systolic blood pressure Diastolic blood pressure Provider Name and Address Organization Details Last Updated DateTime 2 37.3 kg/m2 157.48 cm 99 % 99 % 74 /min 97.6 [degF] 37337.8 4 g 120 mm[Hg] 75 mm[Hg] Not Available [facility] 3 22:45:29 Date Recorded Body mass index (BMI) Body height Oxygen saturation Oxygen saturation in Arterial blood by Pulse oximetry Heart rate Body temperature Body weight Systolic blood pressure Diastolic blood pressure Provider Name and Address Organization Details Last Updated DateTime 2 40.2 kg/m2 157.48 cm 96 % 96 % 65 /min 97.3 [degF] 69058.3 2 g 130 mm[Hg] 55 mm[Hg] Not Available [facility] 3 22:45:29 Date Recorded Body mass index (BMI) Body height Oxygen saturation Oxygen saturation in Arterial blood by Pulse oximetry Heart rate Body temperature Body weight Systolic blood pressure Diastolic blood pressure Provider Name and Address Organization Details Last Updated DateTime 3 39.1 kg/m2 157.48 cm 96 % 96 % 58 /min 97.6 [degF] 88362.7 7 g 140 mm[Hg] 65 mm[Hg] Not Available [facility] 3 22:45:29 Date Recorded Body height Body mass index (BMI) Body weight Body temperature Respiratory rate Heart rate Systolic blood pressure Diastolic blood pressure Provider Name and Address Organization Details Last Updated DateTime 3 157.48 cm 39.8 kg/m2 72414.9 8 g 96.1 [degF] 20 /min 67 /min 130 mm[Hg] 64 mm[Hg] CANDIE Avelar [facility] [employer] [facility] 3 11:52:51 Date Recorded Body height Body mass index (BMI) Body weight Heart rate Body temperature Systolic blood pressure Diastolic blood pressure Provider Name and Address Organization Details Last Updated DateTime 3 157.48 cm 40.8 kg/m2 328443. 82 g 63 /min 97.1 [degF] 142 mm[Hg] 70 mm[Hg] Nicole Chavsi MA [facility] [employer] [facility] 3 12:11:36 Social History Question Answer Notes LastModified by Organizat ion Details LastModified Time Tobacco Smoking Status Former Smoker Not Available [facility] 01/05/2023 22:43:25 Do You Have An Advance Directive? No Information not available 07/14/2023 What Is Your Level Of Alcohol Consumption? None [id number] Information not available 01/05/2023 Are You Blind Or Do You Have Difficulty Seeing? No Information not available 07/14/2023 Is Blood Transfusion Acceptable In An Emergency? Yes Information not available 07/14/2023 What Is Your Level Of Caffeine Consumption? Heavy [id number] Information not available 01/05/2023 What Is Your Code Status? Full Code Information not available 07/14/2023 In The 14 Days Before Symptom Onset, Have You Had Close Contact With A Laboratory-confi rmed COVID-19 While That Case Was Ill? No Information not available 07/14/2023 In The 14 Days Before Symptom Onset, Have You Had Close Contact With A Person Who Is Under Investigation For COVID-19 While That Person Was Ill? No Information not available 07/14/2023 Are You Currently Employed? No Retired [employer] Information not available 07/14/2023 Are You Deaf Or Do You Have Serious Difficulty Hearing? Yes Age Related Hearing Loss Information not available 07/14/2023 What Type Of Diet Are You Following? REGULAR Information not available 07/14/2023 What Is The Highest Grade Or Level Of School You Have Completed Or The Highest Degree You Have Received? [id number] Information not available 07/14/2023 When Did You Quit Smoking? 1-5yearssinc elastcigaret te [id number] Information not available 01/05/2023 Are There Any Guns Present In Your Home? No Information not available 07/14/2023 Where Do You Live? Apartment Information not available 07/14/2023 Do You Have A Medical Power Of Ruching Machine Operator? No Information not available 07/14/2023 What Is Your Relationship Status? [id number] Information not available 01/05/2023 Do You Use Your Seat Belt Or Car Seat Routinely? Yes Information not available 07/14/2023 Do You Have Smoke And Carbon Monoxide Detectors In Your Home? Yes Information not available 07/14/2023 Are You Passively Exposed To Smoke? No Information not available 07/14/2023 Do You Feel Stressed (tense, Restless, Nervous, Or Anxious, Or Unable To Sleep At Night)? [id number] Anxiety And Depression Information not available 07/14/2023 Do You Use Any Illicit Or Recreational Drugs? No [id number] Information not available 01/05/2023 Do You Use Sunscreen Routinely? Yes Information not available 07/14/2023 Has Tobacco Cessation Counseling Been Provided? No [id number] Information not available 01/05/2023 Have You Recently Traveled Abroad? No Information not available 07/14/2023 Do You Have Any Dietary Restrictions? No Information not available 07/14/2023 Do You Or Have You Ever Used Any Other Forms Of Tobacco Or Nicotine? No [id number] Information not available 01/05/2023 Sex: Female Functional Status Question Answer Note LastModified by Organizat ion Details LastModified Time Do you have difficulty walking or climbing stairs? Yes Information not available 07/14/2023 Do you have transportation difficulties? Yes Information not available 07/14/2023 Are you able to walk? YESASSIST holds on to reletive or wall if alone Information not available 07/14/2023 Do you have difficulty doing errands alone? Yes family member usually with her Information not available 07/14/2023 Are you able to care for yourself? Yes Information not available 07/14/2023 Do you have difficulty dressing or bathing? Yes starting to have difficulty getting out of the tub . Information not available 07/14/2023 What is your exercise level? None Information not available 07/14/2023 Mental Status Question Answer Note LastModified by Organization D etails LastModified Time Do you have difficulty concentrating, remembering or making decisions? Yes Information no t available 07/14/2023 Family History Relationship Description Onset Age of this Age Resolved Age Notes LastModified by Organization Details LastModified Time Father Malignant neoplasm of brain [id number] Not available 01/05/2023 22:43:33 Mother Chronic obstructive pulmonary disease AUGUST [id number] Not available 01/05/2023 22:43:33 Medical History Condition Response OBESITY Y ANEMIA/BLOOD DISORDER Y HYPOTHYROIDISM Y KIDNEY DISEASE Y HAVE YOU BEEN HOSPITALIZED OR SEEN IN [facility] IN THE PAST YEAR ? Y HYPERTENSION Y HIGH CHOLESTEROL / HYPERLIPIDEMIA Y Gynecological HistoryNo gynecological history recorded. Obstetrics History GPAL:G 3 P 3 0 0 0 Type Value Full Term 3 Total 3 Past Encounters Encounter ID Performer Location Encounter Start Date Encounter Closed Date Diagnosis/Indication Diagnosis SNOMED-CT Code Diagnosis ICD10 Code Diagnosis Note [id number] _ATHENA_M IGRATION_ DEFAULT_1 _1 , 07/23/2021 00:00:00 07/23/2021 16:41:16 [id number] [facility] [address] [place] [address] 09/21/2021 00:00:00 09/21/2021 15:39:35 [id number] _ATHENA_M IGRATION_ DEFAULT_1 _1 , 01/21/2022 00:00:00 01/21/2022 15:21:48 [id number] _ATHENA_M IGRATION_ DEFAULT_1 _1 , 04/29/2022 00:00:00 04/29/2022 15:22:35 [id number] _ATHENA_M IGRATION_ DEFAULT_1 _1 , 05/27/2022 00:00:00 05/27/2022 17:30:55 [id number] _ATHENA_M IGRATION_ DEFAULT_1 _1 , 06/24/2022 00:00:00 06/24/2022 22:01:51 [id number] [facility] [address] [place] [address] 10/15/2022 00:00:00 10/15/2022 21:47:35 [id number] [facility] [address] [place] [address] 12/17/2022 00:00:00 12/17/2022 13:58:24 [id number] Stephanie Morrissey MD [facility] [address] [place] [address] 03/17/2023 11:38:23 03/17/2023 12:30:34 Prediabetes [id number] R73.03 Patient actually well controlled DM- a1c of 6.3%- on farxiga only and tolerating well as she is not able to take metformin due to CKD. Will retrial low dose korlym for known hypercorti solism as she has adrenal hyperplasi a and failed DST in 01/26-has low dheas and normal acth as this is adrenal in nature / not pituitary. Recommende d she incorporat e natural insulin mechanical maintenance instructor s such as pears, apples, cinnamon, janie and sweet potatoes to help mobilize her endogenous insulin. Recommende d up to 150 minutes of moderate level activity/e xercise weekly. Continue on kerendia for proteinuri a. Repeat K in range and microalbum in trending downward. Obesity [id number] E66.9 Recommende d GLP1 agonist therapy as she is having trouble at times with cravings of sweets and portion control. Discussed potentiall y reducing total carb intake to 120 grams daily into 4-5 small split meals with addition of healthy protein based snack at bedtime to help reduce head of english hyperglyce sindhu. She has no hx of pancreatit is or medullary thyroid cancer and is willing to trial on a GLP1 agonist therapy. She was advised to contact clinic if she experience s any nausea, vomiting or significan t thyroid pain / swelling or abdominal pain so we can discuss and discontinu e and potentiall y look to other therapy. Will trial on wegovy 0.25 mg SQ weekly x 8 weeks then increase to 0.5 mg SQ weekly with largest meal of that day as tolerated. Hypothyroidism [id number] E03.9 Will uptitrate unithroid to 100 mcg daily as her TSH/FT4 are not in range. She was reminded to take her LT4 on empty stomach with glass of water and wait one hour to eat or have her coffee in morning and up to 4 hours if ever taking any heartburn or reflux medication s to help optimize absorption . Discussed paleo like diet with restrictio n of GMOs to help with energy and to optimize absorption of vitamins and minerals and reduce inflammati on. Hypercortisolism [id number] [address] adrenal completed in spring 2021 that revealed left adrenal hyperplasi a/enlargem ent with DST of 2.1 ug/dL. She is not an ideal surgical candidate and previously did well on low dose korlym but once she had titration she did not tolerate therapy well. Will plan to continue on low dose once daily 300 mg as she has features of hypercorti solism along with DM, hypertensi on, poor wound healing and insomnia. She is aware to repeat CMP/K 2 weeks after starting korlym to monitor progress. Spent up to 28 minutes preparing to see the patient (eg, review of tests), obtaining and/or reviewing separately obtained history, performing a medically appropriat e examinatio n and evaluation , counseling and educating the patient, ordering medication s, tests, along with documentin g clinical informatio n in the electronic health record, independen tly interpreti ng results and communicat ing results to the patient. RTC in 4-6 months. Patient was provided a handwritte n lab order which contains our fax number. If she chooses to go outside of the [facility] system to obtain labwork she was advised to provide our fax number and my informatio n to the lab she will be obtaining labwork from in order to have her labs properly forwarded over for me to review so there is no loss of follow up due to use of outside network. She was also advised to contact our clinic informing us that she has completed her labwork so we are aware we will need to reach out to the appropriat e laboratory to request her results be forwarded to us so I might have the ability to review and make further medical decision making in her case. She voiced understand ing. [id number] Stephanie Morrissey MD [facility] [address] [place] [address] 07/14/2023 11:51:07 07/14/2023 12:50:55 Well controlled type 2 diabetes mellitus [id number] E11.9 a1c of 5.9% in range- no hypoglycem ia- she is tolerating therapy well. Will uptitrate ozempic to 2 mg once weekly and continue low dose farxiga 5 mg daily. Off metformin due to CKD. Discussed carb counting and how to read food labels. Recommende d patient to utilize the diabetesfo odhub.com from the ADA website to help with food preparatio n as this presents ideal carb content per meal so this will make carb counting much easier for patient. Recommende d she incorporat e natural insulin mechanical maintenance instructor s such as pears, apples, cinnamon, janie and sweet potatoes to help mobilize her endogenous insulin. Recommende d up to 150 minutes of moderate level activity/e xercise weekly. Hypothyroidism [id number] E03.9 FT4 in range - continue unithroid at 100 mcg daily as her TSH/FT4 are not in range. She was reminded to take her LT4 on empty stomach with glass of water and wait one hour to eat or have her coffee in morning and up to 4 hours if ever taking any heartburn or reflux medication s to help optimize absorption . Discussed paleo like diet with restrictio n of GMOs to help with energy and to optimize absorption of vitamins and minerals and reduce inflammati on. Hypercortisolism [id number] [address] adrenal completed in spring 2021 that revealed left adrenal hyperplasi a/enlargem ent with DST of 2.1 ug/dL. She is not an ideal surgical candidate and previously did well on low dose korlym but once she had titration she did not tolerate therapy well. Will plan to refer to [facility]/cushin gs specialist to assess further for alternativ e therapies as patient did not tolerate korlym in the past. Spent up to 25 minutes preparing to see the patient (eg, review of tests), obtaining and/or reviewing separately obtained history, performing a medically appropriat e examinatio n and evaluation , counseling and educating the patient, ordering medication s, tests, along with documentin g clinical informatio n in the electronic health record, independen tly interpreti ng results and communicat ing results to the patient. Patient can be followed by PCP - she/he is aware of my resignatio n and last day of August 19. If needed his/her PCP can refer patient to another endocrinol ogist in the area. All questions /concerns answered and refills necessary at visit today. Health Concerns Section Related Observation LastModified by Organization Detai ls LastModified Time None Recorded Concern Status LastModified by Organization Details LastModified Time None Recorded Advance Directives Directive N: Payers Encounter Date Sequence Insurance Name Policy Number Policy Pena Covered Member ID Pena Member ID Guarantor Name 03/17/2023 1 [facility] (MEDICARE REPLACEMENT/A DVANTAGE - PPO) [id number] Jacy Mills [id number] Jacy Mills 03/17/2023 2 [place] [facility] Jacy Mills [id number] Jacy Mills 07/14/2023 1 [facility] (MEDICARE REPLACEMENT/A DVANTAGE - PPO) [id number] Jacy Mills [id number] Jacy Mills 07/14/2023 2 [place] [facility] Jacy Mills [id number] Jacy Mills Notes Date Note Type Note Provider Name and Address Organization Details Recorded Time 03/17/2023 text/html 77 yo female com es in for follow up in management of overall well controlled type 2 DM (A1C of 6.3% up from 5.6%), dyslipidemia, hypothyroidism and hypercortisolism last seen in Dec at that time we continued farxiga 5 mg daily as patient cannot take metformin due to CKD. We continued unithroid 75 mcg daily. We started kerendia for proteinuria. Patient sent to [facility] / [facility] and per Dr. Chakraborty patient doesn't have cushings disease at this time. Patient does have history of adrenal adenomas. ACTH under 20 pg/mL. (DST from 01/26/22 at 2.1 ug/dL- highly suspicious for hypercortisolism) CT adrenal from 02/26 revealed hyperplasia of left adrenal gland and normal appearing right adrenal gland Bone density normal from 02/26 labs from 03/07/23:microalbumin 122 ug/mg down from 177 ug/mga1c of 6.3%TSH of 11 uIU/mLFT4 of 1.09 ng/dLFT3 of 2.4 pg/MLPO4 normalglucose 119 mg/dLK of 4.9 mmol/LCr 1.89 mg/dL with GFR 26 ml/minLFT normal Stephanie Morrissey MD [address] [facility], [facility] [address], [place], [address], [place] - [facility] [employer] [facility] 03/17/2023 14:04:12 07/14/2023 text/html 77 yo female com es in for follow up in management of well controlled type 2 DM (A1c of 5.9% down from 6.4%), hypercortisolism, hypothyroidism, dyslipidemia and obesity. last seen in March at that time we continued patient on farxiga only as she is not able to take metformin due to CKD. We have since added ozempic and she is now on 1 mg weekly and tolerating well. We had her retrial on low dose korlym for known hypercortisolism as she has adrenal hyperplasia and failed DST in 01/26-has low dheas and normal acth as this is adrenal in nature / not pituitary. we continued statin therapy. we recommended patient stop kerendia and continue korlym in April and we had to uptitrate spironolactone due to hypokalemia in May. She is no longer taking korlym and off since May. She is taking ozempic 1 mg once weekly with large meal- she has not lost weight and no issues with nausea or vomiting. She is on four medications for blood pressure control / no longer on spironolactone as she is off korlym. labs from 06/29:165/173/51/79TSH of 1.21 uIU/mlFT4 of 0.92 ng/dlFt3 of 3.4 pg/mLa1c of 5.9%K 4.8 mmol/computer systems technology instructor normalglucose 99 mg/dLCr 1.83 mg/dL with GFR 27 ml/minLFT normal Stephanie Morrissey MD [address], [facility] [address], [place], [address], [place] [employer] [facility] 07/14/2023 13:34:56 OBGyn Episode No OBEpisode recorded.
--- OUTSIDE RECORDS SUMMARY | 2024-12-04 13:03 | XMS_ITS | Clinical Summary ---
Author Organization [facility] Address [address] [place] [address] Care Team Providers Care Truck Terminal Manager Name Role Phone Waqas De Leon MD Unavailable [phone] Waqas De Leon MD Unavailable [phone] Cortney Corona MD Unavailable [phone] Jn Velásquez MD Primary Care Provider [phone] Miscellaneous, Not In File Unavailable Unava ilDaniel Mckeon MD Unavailable [phone] James Cifuentes MD Unavailable [phone] Allergies Active Allergy Reactions Criticality Noted Date Comments Adhesive Itching,Rash Medium 09/07/2022 Lisinopril Shortness of breath,Unknown High 12/24/19 22 Medications albuterol HFA (PROVENTIL HFA,VENTOLIN HFA,PROAIR HFA) 90 mcg/actuation inhaler Inhale 1-2 puffs every 6 (six) hours as needed for shortness of breath 1 each 2 Active acetaminophen (TYLENOL) 325 mg tablet Take 1 tablet (325 mg total) by mouth every 4 (four) hours as needed for pain 2 Active amLODIPine (NORVASC) 5 mg tabletIndication s:Primary hypertension Take 1 tablet (5 mg total) by mouth daily 30 tablet 2 Active melatonin 5 mg tabletIndication s:Primary insomnia Take 1 tablet (5 mg total) by mouth nightly as needed (insomnia) 0 2 Active traZODone (DESYREL) 100 mg tabletIndication s:Primary insomnia Take 1 tablet (100 mg total) by mouth nightly as needed for sleep 30 tablet 2 Active Unithroid 75 mcg tablet Take 1 tablet (75 mcg total) by mouth every morning 2 Active ergocalciferol (VITAMIN D) 50,000 unit capsule Take 1 capsule (50,000 Units total) by mouth 2 Active gabapentin (NEURONTIN) 300 mg capsule Take 1 capsule (300 mg total) by mouth 3 (three) times a day 2 Active oxybutynin XL (DITROPAN-XL) 10 mg 24 hr tablet Take 1 tablet (10 mg total) by mouth daily 2 Active rosuvastatin (CRESTOR) 10 mg tablet Take 1 tablet (10 mg total) by mouth daily Active isosorbide mononitrate ER (IMDUR) 30 mg 24 hr tablet Take 1 tablet (30 mg total) by mouth daily Active miFEPRIStone (KORLYM) 300 mg tablet Take 1 tablet (300 mg total) by mouth daily Active nitroglycerin (NITROSTAT) 0.[address] 1 tablet (0.4 mg total) under the tongue every 5 (five) minutes as needed for chest pain Active aspirin 81 mg chewable tablet Take 1 tablet (81 mg total) by mouth daily 30 tablet 3 Active umeclidinium-nia anteroL (ANORO ELLIPTA) 62.5-25 mcg/actuation blister with deviceIndication s:Bronchospasm Prevention with COPD Inhale 1 puff daily 30 each 3 Active furosemide (LASIX) 20 mg tablet Take 1 tablet (20 mg total) by mouth daily 30 tablet 3 Active azelastine (OPTIVAR) 0.05 % ophthalmic solution 1 drop 2 (two) times a day 3 Active neomycin-polymyx in-dexAMETHasone (MAXITROL) 3.5mg/mL-10,000 unit/mL-0.1 % ophthalmic suspension SHAKE LIQUID AND INSTILL 1 DROP IN BOTH EYES TWICE DAILY 3 Active pregabalin (LYRICA) 200 mg capsule Take 1 capsule (200 mg total) by mouth 2 (two) times a day 3 Active Trintellix 20 mg tablet Take 1 tablet (20 mg total) by mouth daily 3 Active fluticasone furoate-vilanter oL (Breo Ellipta) 100-25 mcg/dose diskus inhaler Inhalation 4 Active magnesium oxide (MAG-OX) 400 mg (241.3 mg elemental magnesium) tablet Oral 4 Active Breztri Aerosphere 160-9-4.8 mcg/actuation inhaler Inhalation 4 Active HYDROcodone-acet aminophen (NORCO) 10-325 mg per tablet Take 1 tablet by mouth 4 (four) times a day 4 Active Mounjaro 15 mg/0.5 mL pen injector ADMINISTER 15 MG UNDER THE SKIN WEEKLY 4 Active tirzepatide (Mounjaro) 12.5 mg/0.5 mL pen injector MOUNJARO 12.5 MG/0.5 ML SUBCUTANEOUS PEN INJECTOR 4 Active hydrOXYzine (ATARAX) 50 mg tablet TAKE 1-2 TABLETS BY MOUTH THREE TIMES DAILY NEEDED FOR ITCHING 4 Active loteprednol (LOTEMAX) 0.5 % ophthalmic suspension 4 Active Farxiga 10 mg tablet Take 1 tablet (10 mg total) by mouth daily 4 Active Active Problems Problem Noted Date Diagnosed Date Malignant neoplasm of thyroid gland 11/10/2023 Community acquired pneumonia 05/30/2023 CHF (congestive heart failure) (CMS/HCC) 023 Neuropathy 05/30/2023 Urinary frequency 05/30/2023 Shortness of breath 05/29/2023 Adrenal abnormality 12/15/2022 Prediabetes 05/27/2022 Vitamin B12 deficiency (non anemic) 05/27/2022 Vitamin D deficiency 05/27/2022 Primary insomnia 05/26/2022 Assessment & Plan (05/26/2022 11:04 AM CDT): Continue prn trazodone and melatonin HLD (hyperlipidemia) 05/18/2022 Assessment & Plan (05/26/2022 10:54 AM CDT): Stable, continue atorvastatin 80 mg daily Assessment & Plan (05/18/2022 5:21 AM CDT): On Crestor 40 mg daily 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 Follow-up 2-3 days after discharge, to consider restarting Mifepristone. Also to monitor Synthroid dose and thyroid studies - DC'd with 88mcg synthroid. Assessment & Plan (05/18/2022 5:23 AM CDT): Pt dx a month ago with [place]'s disease (abnormal high-dose dexamethasone suppression test) and is on Mifepristone per Dr. Stephanie Morrissey. Per Dr. Bhatia, mifepristone placed on hold while inpatient, patient advised f/u with Dr Morrissey in 2-3 days after discharge. Major depressive disorder wi th single episode, in full remission 05/18/2022 Assessment & Plan (05/26/2022 11:02 AM CDT): Mood stable, continue Vortioxetine Assessment & Plan (05/18/2022 5:26 AM CDT): Continue Vortioxetine 20 mg daily Multiple renal cysts 05/18/2022 Assessment & Plan (05/18/2022 5:29 AM CDT): CT abd:Multiple denser than water renal lesions, which may represent proteinaceous or hemorrhagic cysts. [address] or MRI can be obtained to assess for stability. Chronic obstructive pulmonary disease 12/24/2021 Spinal stenosis, lumbar region with neurogenic c laudication 12/24/2021 Anemia 06/06/2019 Assessment & Plan (05/18/2022 10:51 AM CDT): H&H stable. Monitor as pt on Lovenox. HTN (hypertension) 06/06/2019 Assessment & Plan (05/26/2022 10:54 AM CDT): Blood pressure controlled, continue Norvasc, hydralazine, torsemide Assessment & Plan (05/18/2022 10:52 AM CDT): BP stable. Continue Norvasc, Hydralazine. Has increased edema associated with effusion -increase Torsemide, monitor BP. Assessment & Plan (05/18/2022 5:21 AM CDT): Blood pressure with mild fluctuation, oral controlled. Lisinopril 20 mg discontinued due to ARTEMIO. Continue hydralazine 25 mg t.i.d., amlodipine 5 mg, torsemide 10 mg. Monitor blood pressure, adjust meds accordingly Pulmonary hypertension 06/06/2019 MVP (mitral valve prolapse) 06/06/2019 LV dysfunction 06/06/2019 CKD (chronic kidney disease) 12/20/2018 Aortic valve regurgitation 07/27/2018 Abdominal bruit 09/22/2017 Depression 12/09/2016 Obesity 10/07/2016 Bradycardia 08/10/2016 Chronotropic incompetence 08/10/2016 Pain in lower limb 08/10/2016 Occlusion and stenosis of bilateral carotid nimo alec 10/12/2015 Tobacco dependence syndrome 09/21/2015 Anxiety disorder 10/13/2014 Asthma 10/13/2014 Overview (07/08/2022): Converted unresolved ICD9, potential mismatch. Converted unresolved ICD9, potential mismatch. Hypothyroid 10/13/2014 Obstructive sleep apnea syndrome 05/23/2014 Other chest pain Resolved Problems Problem Noted Date Diagnosed Date Resolved Date Dyslipidemia 06/24/2022 09/07/2022 Dyspnea 05/27/2022 09/07/2022 Hypokalemia 05/27/2022 09/07/2022 Acute diverticulitis 05/18/2022 022 Assessment & Plan (05/26/2022 11:01 AM CDT): Completed Augmentin. Bowels moving well off bowel regimen. Pain controlled with minimal norco use. Continue prn zofran Assessment & Plan (05/24/2022 7:32 AM CDT): Complete augmentin as prescribed. Syx resolved. Assessment & Plan (05/18/2022 10:49 AM CDT): Continue Augmentin - no abd pain complaints today. Assessment & Plan (05/18/2022 5:16 AM CDT): CT abdomen showed:diverticulitis involving the mid sigmoid colon, with extraluminal gas consistent with a relatively contained perforation. For surgery, Treated conservatively with IV antibiotic, NPO, IVF, symptoms improved, transition to oral Augmentin x 14 days. Continue Bentyl 10 mg t.i.d. p.r.n., Imodium 2 mg q.i.d. p.r.n.. Monitor Acute kidney injury superimposed on CKD 05/18/2022 09/07/2022 Assessment & Plan (05/26/2022 11:01 AM CDT): Cr back to baseline. Follows as an outpatient with nephrology Assessment & Plan (05/24/2022 7:31 AM CDT): Acute phase resolved. At baseline. Assessment & Plan (05/18/2022 10:52 AM CDT): S/t contrast. Baseline 1.1-1.7. Cr 1.9 today on labs. Increased edema, SOB, Cough & effusion on XR. Torsemide increased- monitor Cr. Assessment & Plan (05/18/2022 5:19 AM CDT): Likely secondary to contrast. Nephrology consulted. Baseline creatinine 1.1-1.7. Now improved back to 1.69. Lisinopril discontinued while inpatient. Avoid nephrotoxic drugs. Monitor renal function. Patient need to follow up with her public health professor Dr. Fitch at [facility] on 06/28 Acute pulmonary edema (CMS/HCC) 05/18/2022 09/07/2022 Assessment & Plan (05/26/2022 11:04 AM CDT): Acute resolved. Pulm status much improved although continues to require O2 - 2L continuously at home Assessment & Plan (05/24/2022 7:31 AM CDT): Syx improved. Assessment & Plan (05/18/2022 10:54 AM CDT): Continues on Torsemide - continues to have effusion on XR. Will increase. Monitor. Assessment & Plan (05/18/2022 5:24 AM CDT): Started on IV diuretics- responded well- on room air- transition to torsemide per public health professor, add low dose potassium supplement. Continue to monitor Cough 05/18/2022 05/24/2022 Assessment & Plan (05/18/2022 10:56 AM CDT): XR shows Mild bibasilar opacities, likely atelectasis; Hazy opacities overlying the lower lung zones, likely secondary overlying soft tissue; Likely small right pleural effusion with fluid in the right minor fissure. Patient is already on Augmentin which will help with underlying PNA, will increase Torsemide. Monitor for improvement. Continue Mucinex & albuterol. Assessment & Plan (05/18/2022 5:25 AM CDT): Patient complains of cough. Start on Mucinex 600 mg b.i.d., will order chest x- ray. Chronic respiratory failure with hypercapnia (CMS/HCC) 05/18/2022 09/07/2022 Assessment & Plan (05/24/2022 7:30 AM CDT): Continues on O2. Will need O2 at discharge. Assessment & Plan (05/18/2022 10:55 AM CDT): Has been restarted on O2 - attempt to titrate as able. Continue Mucinex, albuterol. Assessment & Plan (05/18/2022 5:32 AM CDT): Initial CT showed a pleural effusion. ??BNP was elevated at 2114. CXR suggested PNA, CT chest did not show PNA or a PE. Her D dimer was elevated. LE venous dopplers were negative. Treated with IV Lasix. Continued on supplemental oxygen. Continue albuterol Q 6 p.r.n. monitor respiratory status Leukocytosis 05/18/2022 09/07/2022 Assessment & Plan (05/18/2022 10:56 AM CDT): Monitor for improvement, continues on abx. Abdominal pain 05/05/2022 05/18/2022 Fatigue 12/09/2016 09/07/2022 Bacteremia 08/26/2016 09/07/2022 Edema of lower extremity 08/10/201611/2021 Excessive sweating 09/21/2015 Gastro-esophageal reflux dis ease without esophagitis 10/13/2014 09/07/2022 Encounters Date Type Department Care Team Description 10/10/2024 2:15 PM ROLL PANNER Lab [facility] Endocrinology Metabolism and Lipid [address] 5th [place] [address] Interstitial pulmonary disease (CMS/HCC) (HCC) 10/10/2024 2:00 PM ROLL PANNER - 10/10/2024 11:59 PM ROLL PANNER Hospital Encounter [facility] of [address] [address] Interstitial pulmonary disease (CMS/HCC) (HCC) Discharge Disposition: Discharge to home or self care 10/10/2024 1:00 PM ROLL PANNER Office Visit [facility] Rheumatology [address] [place] [address] 5th [place] [address] Interstitial pulmonary disease (CMS/HCC) (HCC) (Primary Dx) 09/11/2024 5:33 PM ROLL PANNER - 09/11/2024 11:59 PM ROLL PANNER Hospital Encounter [facility] ([facility]) [address] [place] [address] Discharge Disposition: Discharge to home or self care 09/11/2024 4:44 PM ROLL PANNER - 09/11/2024 11:59 PM ROLL PANNER Hospital Encounter [facility] ([facility]) [address] [place] [address] Discharge Disposition: Discharge to home or self care 09/11/2024 4:42 PM ROLL PANNER - 09/11/2024 11:59 PM ROLL PANNER Hospital Encounter [facility] ([facility]) [address] [place] [address] Discharge Disposition: Discharge to home or self care 09/11/2024 4:41 PM ROLL PANNER - 09/11/2024 11:59 PM ROLL PANNER Hospital Encounter [facility] ([facility]) [address] [place] [address] Discharge Disposition: Discharge to home or self care 09/11/2024 4:40 PM ROLL PANNER - 09/11/2024 11:59 PM ROLL PANNER Hospital Encounter [facility] ([facility]) [address] [place] [address] Discharge Disposition: Discharge to home or self care 09/03/2024 Telephone [facility] Rheumatology [address] [place] [address] for Advanced Medicine 5th [place] [address] [place] [address] Zarina Carroll MD Medical Records Request (Images for CT ILD Conference) from Last 3 Months Surgical History Surgery Date Site/Laterality Comments CHOLECYSTECTOMY Cholecystectomy THYROIDECTOMY 11/07/2014 - 11/06/2015 Thyroidectomy HYSTERECTOMY ANTERIOR CERVICAL DISCECTOMY Medical History Medical History Date Comments Hyperlipidemia Hyperlipidemia; Comments: EMB 04/04/2015 - Hypertension Hypertension Hx Other Medical chronic back pa in; Comments: EMB 04/04/2015 - Hx Other Medical KATE; Comments: 04/04/2015 - Hx Other Medical carpal tunnel r elease sx; Comments: EMB 04/04/2015 - Anemia Pulmonary hypertension (HCC) MVP (mitral valve prolapse) LV dysfunction Diabetes mellitus (HCC) hypothyroidism Chronic kidney disease CHF (congestive heart failur e) (CMS/HCC) (HCC) Asthma Emphysema lung (HCC) Family History Medical History Relation Name Comments Cancer Brother 1 Lung cancer Brother 1 Lung cancer Brother 2 Brain cancer Father Heart disease Father Hypertension Father Relation Name Status Comments Brother 1 Brother 2 Father Mother Alive Social History Tobacco Use Types Packs/Day Years Used Date Smoking Tobacco: Former Cigarettes 1 53 1 2019 Smokeless Tobacco: Never Tobacco Cessation:Counseling Given: Not Answered Alcohol Use Standard Drinks/Week Comments No 0 (1 standard drink = 0.6 oz pur e alcohol) Social Connection and Isolat ion Panel [NHANES] Answer Date Recorded In a typical week, how many times do you talk on the phone with family, friends, or neighbors? More than three times a week 05/31/2023 How often do you get togethe r with friends or relatives? More than three times a week 05/31/2023 How often do you attend chur ch or anglican services? Never 05/31/2023 Do you belong to any clubs o r organizations such as jewish groups, unions, fraternal or athletic groups, or school groups? No 05/31/2023 Attends Club or Organization Meetings Not on matt e 05/31/2023 Are you , , di vorced, , never , or living with a partner? 05/31/2023 AUDIT-C Answer Date Recorded Q1: How often do you have a drink containing alc ohol? Never 11/10/2023 Average Number of Drinks Not on file 024 Frequency of Binge Drinking Not on file 02/2024 Overall Financial Resource Strain (CARDIA) Answe r Date Recorded How hard is it for you to pa y for the very basics like food, housing, medical care, and heating? Not hard at all 05/31/2023 Hunger Vital Sign Answer Date Recorded Within the past 12 months, y ou worried that your food would run out before you got the money to buy more. Never true 05/31/20 23 Within the past 12 months, t he food you bought just didn't last and you didn't have money to get more. Never true 05/31/2023 PRAPARE - Transportation Answer Date Re corded In the past 12 months, has l ack of transportation kept you from medical appointments or from getting medications? No 05/08 In the past 12 months, has l ack of transportation kept you from meetings, work, or from getting things needed for daily living? No 05/31/2023 Housing Stability Vital Sign Answer Darrell e Recorded In the last 12 months, was t here a time when you were not able to pay the mortgage or rent on time? No 05/31/2023 In the last 12 months, how many places have you lived? 1 05/31/2023 In the last 12 months, was t here a time when you did not have a steady place to sleep or slept in a detention (including now)? No 05/31/2023 Personal Safety Answer Date Recorded Have you ever been in or are you currently in a harmful physical or emotional relationship or is someone making you feel afraid or unsafe? Denies 05/30/2023 Comments Unknown Sex and Gender Information Value Date Recorded Sex Assigned at Not on file Legal Sex Female 7:23 PM ROLL PANNER Gender Identity Not on file Sexual Orientation Not on file Obstetrics History Last Filed Vital Signs Vital Sign Reading Time Taken Comments Blood Pressure 123/61 10/10/2024 1:09 PM ROLL PANNER Pulse 70 10/10/2024 1:09 PM ROLL PANNER Temperature 36.7 ??C (98 ??F) 10/10/2024 1:09 PM ROLL PANNER Respiratory Rate 20 06/01/2023 11:31 AM CDT Oxygen Saturation 88% 08/10/2024 10:08 AM CDT Inhaled Oxygen Concentration - - Weight 106 kg (233 lb 9.6 oz) 10/10/2024 1:09 PM ROLL PANNER Height 156.2 cm (5' 1.5 ) 10/10/2024 1:09 PM ROLL PANNER Body Mass Index 43.42 10/10/2024 1:09 PM ROLL PANNER Plan of Treatment Health Maintenance Due Date Last Done Comments Depression Screening 1945 Osteoporosis Screening-Bone Density Scan 1945 Hepatitis B Screening 1965 Lung Cancer Screening 1997 Zoster Vaccine (1 of 2) 1997 Well Visit 65+ 2012 Pneumococcal vaccine 65+ (2 of 2 - PPSV23 or PCV20) 01/21/2016 11/26/2015, 11/07/2009 Fall Risk Assessment 06/01/2024 06/01/2023 Covid-19 Vaccine ( season) 2024, 01/23/2021 Influenza Vaccine (#1) 2024 08/07/2021, 2019 DTaP/Tdap/Td Vaccine (2 - Td or Tdap) 02/04/2031 Breast Cancer Screening-Mammogram Discontinued 014 Hepatitis C Screening Completed 08/10/2024 Procedures Procedure Name Priority Date/Time Associated Diagnosis Comments RHEUMATOID FACTOR Routine 10/10/2024 2:0 0 PM ROLL PANNER Interstitial pulmonary disease (CMS/HCC) (HCC) KATHY ANTIBODY EVALUATION WITH REFLEX Routine 10/10/2024 2:00 PM ROLL PANNER Interstitial pulmonary disease (CMS/HCC) (HCC) ERYTHROCYTE SEDIMENTATION RATE Routine 10/10/2024 2:00 PM ROLL PANNER Interstitial pulmonary disease (CMS/HCC) (HCC) JOSE QUALITATIVE WITH REFLEX TO JOSE QUANTITATIVE Routine 10/10/2024 2:00 PM ROLL PANNER Interstitial pulmonary disease (CMS/HCC) (HCC) ALDOLASE Routine 10/10/2024 2:00 PM ROLL PANNER Interstitial pulmonary disease (CMS/HCC) (HCC) COMPREHENSIVE METABOLIC PANEL Routine 10/10/2024 2:00 PM ROLL PANNER Interstitial pulmonary disease (CMS/HCC) (HCC) CREATINE KINASE (CK), TOTAL Routine 10/10/2024 2:00 PM ROLL PANNER Interstitial pulmonary disease (CMS/HCC) (HCC) PHOSPHORUS Routine 10/10/2024 2:00 PM ROLL PANNER Interstitial pulmonary disease (CMS/HCC) (HCC) URIC ACID Routine 10/10/2024 2:00 PM ROLL PANNER Interstitial pulmonary disease (CMS/HCC) (HCC) CRP (ACUTE PHASE) Routine 10/10/2024 2:0 0 PM ROLL PANNER Interstitial pulmonary disease (CMS/HCC) (HCC) CT BODY OUTSIDE REFERENCE Routine 09/11/2024 5:[address] BODY OUTSIDE REFERENCE Routine 09/11/2024 4:[address] BODY OUTSIDE REFERENCE Routine 09/11/2024 4:[address] BODY OUTSIDE REFERENCE Routine 09/11/2024 4:[address] BODY OUTSIDE REFERENCE Routine 09/11/2024 4:40 PM ROLL PANNER HEPATITIS PANEL, ACUTE Routine 12:01 PM CDT Interstitial pulmonary disease (CMS/HCC) (HCC) from Last 3 Months or Most Recently Relevant to Health Maintenance Results * (ABNORMAL) JOSE ab ql w/rflx to JOSE qn (10/10/2024 2:00 PM ROLL PANNER) JOSE Positive 1:80 Comment: Interpretive Data Normal range for JOSE Qualitative Antibody = Negative. 1. JOSE is performed using indirect immunofluorescence against HEp-2 cells 2. JOSE titers are performed on all positive qualitative results. 3. A significantly positive JOSE result is defined as a positive nuclear fluorescence at a titer of 1:80 or greater. 4. 15% of normal people above age 65 have significantly positive JOSE results. ??5% or less of normal people age 65 or under have significantly positive JOSE results. Current interpretive data was last revised on 2020. JOSE, quant 1:80 titer [facility] JOSE, interp Speckled(A) [facility] Blood 10/10/2024 2:00 PM ROLL PANNER 10/10/2024 2:39 PM ROLL PANNER us Zarina Carroll MD LAB BLOOD ORDERABLES Final Resul t [facility] Department [place] [address] * KATHY ab eval w/reflex (10/10/2024 2:00 PM ROLL PANNER) KATHY ab Negative Negative Comment: Interpretive Data Positive Screens will be reflexed to specific testing for Antibodies against the following antigens: Nancy-1 Ab, HEARING AID ASSISTANT Ab, Scl-70 Ab, Castillo Ab, SS-A/Ro Ab, and SS- B/La Ab. Further testing for dsDNA, Centromere, or Ribosomal P antibodies is suggested in patient with a positive screen and negative specific antibodies. Current interpretive data was last revised on 2023. Blood 10/10/2024 2:00 PM ROLL PANNER 10/10/2024 2:39 PM ROLL PANNER Zarina Carroll MD LAB BLOOD ORDERABLES Final Resul t Performing Organization Address [facility] Co de Phone Number [facility] Department [place] [address] * (ABNORMAL) Aldolase (10/10/2024 2:00 PM ROLL PANNER) Pathologist [facility] Aldolase 13.1(H) 0.1 - 8.0 Units/L Blood 10/10/2024 2:00 PM ROLL PANNER 10/10/2024 2:39 PM ROLL PANNER Zarina Carroll MD LAB BLOOD ORDERABLES Final Resul t Performing Organization Address [facility] Co de Phone Number [facility] Department [place] [address] * Erythrocyte sedimentation rate (10/10/2024 2:00 PM ROLL PANNER) Pathologist [facility] Erythrocyte sedimentation rate 23 1 - 30 mm/hr Comment:Testing performed by : [facility], [facility], [place]., [address] Blood 10/10/2024 2:00 PM ROLL PANNER 10/10/2024 2:39 PM ROLL PANNER Zarina Carroll MD LAB BLOOD ORDERABLES Final Resul t Performing Organization Address [facility] Co de Phone Number [facility] Department [place] [address] * Rheumatoid factor (10/10/2024 2:00 PM ROLL PANNER) Pathologist [facility] Rheumatoid factor, quant 15.0 0.1 - 15.0 IUnits/mL Blood 10/10/2024 2:00 PM ROLL PANNER 10/10/2024 2:39 PM ROLL PANNER Zarina Carroll MD LAB BLOOD ORDERABLES Final Resul t Performing Organization Address [facility] Co de Phone Number [facility] [place] [address] * (ABNORMAL) CRP (acute phase) (10/10/2024 2:00 PM ROLL PANNER) [facility] C-Reactive Protein, Acute 5.6(H) <5.0 mg/L [facility] Blood 10/10/2024 2:00 PM ROLL PANNER 10/10/2024 3:21 PM ROLL PANNER Zarina Carroll MD LAB BLOOD ORDERABLES Final Resul t Performing Organization Address [facility] Co de Phone Number [facility] * Uric acid (10/10/2024 2:00 PM ROLL PANNER) Pathologist [facility] Uric Acid 7.4 3.1 - 7.7 mg/dL [facility] Blood 10/10/2024 2:00 PM ROLL PANNER 10/10/2024 3:21 PM ROLL PANNER Zarina Carroll MD LAB BLOOD ORDERABLES Final Resul t [facility] * Phosphorus (10/10/2024 2:00 PM ROLL PANNER) Phosphorus 3.2 2.3 - 4.5 mg/dL [facility] Blood 10/10/2024 2:00 PM ROLL PANNER 10/10/2024 3:21 PM ROLL PANNER Zarina Carroll MD LAB BLOOD ORDERABLES Final Resul t [facility] * Creatine kinase (CK), total (10/10/2024 2:00 PM ROLL PANNER) Pathologist [facility] [place] CK, Total 156 26 - 308 IU/L [facility] Blood 10/10/2024 2:00 PM ROLL PANNER 10/10/2024 3:21 PM ROLL PANNER Zarina Carroll MD LAB BLOOD ORDERABLES Final Resul t Performing Organization Address [facility] de Phone Number [facility] * (ABNORMAL) Comprehensive metabolic panel (10/10/2024 2:00 PM ROLL PANNER) Total Protein 7.7 6.1 - 8.4 g/dL [facility] Albumin 4.0 3.5 - 5.2 g/dL [facility] Calcium 9.5 8.6 - 10.3 mg/dL [facility] BUN 24(H) 7 - 23 mg/dL [facility] Total Bilirubin 0.60 0.20 - 1.40 mg/dL [facility] Alk Phos, Total 68 35 - 129 IU/L [facility] AST (SGOT) 23 11 - 47 IU/L [facility] ALT (SGPT) 14 6 - 53 IU/L [facility] Creatinine 1.53(H) 0.60 - 1.10 mg/dL [facility] Sodium 142 135 - 145 mmol/L [facility] Potassium 4.2 3.3 - 5.1 mmol/L [facility] Chloride 103 95 - 107 mmol/L [facility] CO2 Content 28 21 - 29 mmol/L [facility] Glucose 73 64 - 99 mg/dL [facility] Comment: NONFASTING GLUCOSE RANGE = 64-199 mg/dL FASTING GLUCOSE 64 - 99 = NORMAL FASTING GLUCOSE 100 - 125 = IMPAIRED FASTING GLUCOSE FASTING GLUCOSE >=126 = PROVISIONAL DIAGNOSIS OF DIABETES eGFR 34.8(L) >60.0 mL/min/1.7 3 m2 [facility] Blood 10/10/2024 2:00 PM ROLL PANNER 10/10/2024 3:21 PM ROLL PANNER Result [facility] us Zarina Carroll MD LAB BLOOD ORDERABLES Final Resul t Performing Organization Address [facility] de Phone Number [facility] * CT Body Outside Reference (09/11/2024 5:34 PM ROLL PANNER) Impressions RAD_PACS[facility] - 09/11/2024 5:34 PM ROLL PANNER These images are for Reference purposes only and have not been reviewed by [facility] Radiology. ??There will be no report generated by a [facility] Radiologist. Narrative RAD_PACS_[facility]J - 09/11/2024 5:34 PM ROLL PANNER EXAMINATION: ??Images For Reference Purposes Only us Zarina Carroll MD IMG CT PROCEDURES Final Result Performing Organization Address [facility] de Phone Number [email or web address] * CT Body Outside Reference (09/11/2024 4:44 PM ROLL PANNER) Impressions [facility]_P[facility] - 09/11/2024 4:44 PM ROLL PANNER These images are for Reference purposes only and have not been reviewed by [facility]iology. ??There will be no report generated by a [facility] Radiologist. Narrative RAD_PACS_[facility]J - 09/11/2024 4:44 PM ROLL PANNER EXAMINATION: ??Images For Reference Purposes Only us Zarina Carroll MD IMG CT PROCEDURES Final Result Performing Organization Address [facility] de Phone Number [email or web address] * CT Body Outside Reference (09/11/2024 4:42 PM ROLL PANNER) Impressions [facility] - 09/11/2024 4:42 PM ROLL PANNER These images are for Reference purposes only and have not been reviewed by [facility]iology. ??There will be no report generated by a [facility] Radiologist. Narrative [facility] - 09/11/2024 4:42 PM ROLL PANNER EXAMINATION: ??Images For Reference Purposes Only Zarina Carroll MD IMG CT PROCEDURES Final Result Performing Organization Address [facility] de Phone Number [email or web address] * CT Body Outside Reference (09/11/2024 4:41 PM ROLL PANNER) Impressions [facility] - 09/11/2024 4:41 PM ROLL PANNER These images are for Reference purposes only and have not been reviewed by [facility] Radiology. ??There will be no report generated by a [facility] Radiologist. Narrative [facility] - 09/11/2024 4:41 PM ROLL PANNER EXAMINATION: ??Images For Reference Purposes Only Zarina Carroll MD IMG CT PROCEDURES Final Result Performing Organization Address [facility] de Phone Number [email or web address] * CT Body Outside Reference (09/11/2024 4:40 PM ROLL PANNER) Impressions [facility] - 09/11/2024 4:40 PM ROLL PANNER These images are for Reference purposes only and have not been reviewed by [facility] Radiology. ??There will be no report generated by a [facility] Radiologist. Narrative [facility] - 09/11/2024 4:40 PM ROLL PANNER EXAMINATION: ??Images For Reference Purposes Only Zarina Carroll MD IMG CT PROCEDURES Final Result Performing Organization Address [facility] de Phone Number [email or web address] * Hepatitis panel, acute Blood (08/10/2024 12:01 PM CDT) Hep A IgM Nonreactive Nonreactive Hep B core IgM Nonreactive Nonreactive [facility] Hep C Ab Nonreactive Nonreactive [facility] Comment:Antibodies to HCV no t detected. Does NOT exclude the possibility of recent exposure to HCV. Current interpretive data was last revised on 22 HepBsAg Nonreactive Nonreactive [facility] Blood 08/10/2024 12:0 1 PM CDT 08/10/2024 2:23 PM CDT us Zarina Carroll MD LAB MICROBIOLOGY - GENERAL ORDER TATO Final Result [facility] Department [place] [address] from Last 3 Months or Most Recently Relevant to Health Maintenance Insurance MEDICARE SOLUTIONS IDPA IDPA MEDICARE SOLUTIONS [facility] MEDICARE SOLUTIONS IDND MEDICARE SOLUTIONS IDPA Advance Directives For more information, please contact: [phone] * Full Code (Latest Code Status on File) Date Activated Date Inactivated Comments 05/30/2023 2:42 AM 06/01/2023 6:25 PM * Full Code Date Activated Date Inactivated Comments 05/30/2023 12:31 AM 05/30/2023 2:42 AM * Full Code Date Activated Date Inactivated Comments 05/05/2022 2:33 PM 05/14/2022 7:09 PM Care Teams Truck Terminal Manager Relationship Specialty Start Date End Date Jn Velásquez MD PCP - General Family Medicine 05/29/23 Waqas De Leon MD Internal Medicine 11/20/21 Waqas De Leon MD Internal Medicine 06/06/19 Cortney Corona MD Referring Physician Surgery 05/14/22 Miscellaneous, Not In File 05/31/23 Daniel Go MD [address] [place] [address] Consulting Physician Interventional Cardiology 05/31/23 [place] [address] [facility] [facility] [address] [place] [address] Consulting Physician Pulmonary Disease 05/31/23
--- OUTSIDE RECORDS SUMMARY | 2024-12-04 13:03 | XMS_ITS | Patient Health Record ---
Author Organization [facility] Address [address] [place] [address] Support Name Relationship Address Phone Jacy Mills Guarantor Unknown [phone] Reason For Referral No Information Plan Of Treatment No Information
--- OUTSIDE RECORDS SUMMARY | 2024-12-04 13:03 | XMS_ITS | Clinical Summary ---
Author Organization [facility] Address [address], [place] [address] Phone Care Team Providers Care Studio Sales Associate Name Role Phone Jn Velásquez MD Primary Care Provider [phone] Allergies Active Allergy Reactions Criticality Noted Date Comments Lisinopril High 12/24/2021 Medications Medication Sig Dispensed Refills Start Date End Date Status ALPRAZolam (XANAX) 0.5 MG tablet 1 tab/cap tid PRN 10/13/2014 Acti ve FLUoxetine (PROZAC) 20 MG capsule 3 tabs/caps qday 10/13/2014 Activ e HYDROcodone-acetamin ophen (LORCET PLUS) 10-325 MG per tablet TAKE ONE TABLET 3 TIMES DAILY NEEDED FOR PAIN 0 06/19/2019 Active rOPINIRole (REQUIP) 0.5 MG tablet Take 0.5 mg by mouth every night 0 06/19/2019 Active VENTOLIN HFA 108 (90 Base) MCG/ACT inhaler INHALE 2 PUFFS BY MOUTH 4 TIMES DAILY NEEDED FOR SHORTNESS OF BREATH FOR WHEEZING 12/17/2019 Active phentermine 37.5 MG capsule TAKE 1 CAPSULE BY MOUTH ONCE DAILY BEFORE BREAKFAST 12/04/2019 Active gabapentin (NEURONTIN) 300 MG capsule Take 1 capsule by mouth every 8 hours Active ARIPiprazole (ABILIFY) 10 MG tablet TAKE 1 TABLET BY MOUTH ONCE DAILY AT BEDTIME FOR 30 DAYS 05/27/2020 Active busPIRone (BUSPAR) 10 MG tablet TAKE 1 TABLET BY MOUTH THREE TIMES DAILY WITH MEALS FOR 90 DAYS 05/29/2020 Active ergocalciferol (VITAMIN D2) 1.25 MG (56734 UT) capsule Take 50,000 Units by mouth 1 (one) time per week 03/28/2020 Active hydrALAZINE (APRESOLINE) 50 MG tablet Take 50 mg by mouth 3 (three) times a day with meals 05/27/2020 Active rosuvastatin (CRESTOR) 40 MG tablet Take 40 mg by mouth 1 (one) time each day 04/18/2020 Active tretinoin (RETIN-A) 0.025 % cream APPLY A PEA SIZED AMOUNT TO AFFECTED AREA AT BED TIME. 05/29/2020 Active Percocet 10-325 MG per tablet 11/25/2020 Active furosemide (LASIX) 20 MG tablet 12/01/2020 Active oxybutynin XL (DITROPAN-XL) 10 MG 24 hr tablet Take 10 mg by mouth 1 (one) time each day 12/18/2020 Active budesonide EC (ENTOCORT EC) 3 MG 24 hr capsule 06/29/2021 Active FeroSul 325 (65 Fe) MG tablet Take 1 tablet by mouth 2 (two) times a day 06/20/2021 Active traZODone (DESYREL) 100 MG tablet Take 100 mg by mouth every night 05/24/2021 Active benzonatate (TESSALON) 100 MG capsule Take 100 mg by mouth 11/20/2021 Acti ve cholecalciferol (VITAMIN D-3) 50 MCG (1999 UT) capsule Take 4,000 Units by mouth 1 (one) time each day in the morning 11/18/2021 Active hydrOXYzine (ATARAX) 10 MG tablet 12/29/2021 Active loteprednol (LOTEMAX) 0.5 % ophthalmic suspension SHAKE LIQUID AND INSTILL 1 DROP IN BOTH EYES THREE TIMES DAILY 12/18/2021 Active venlafaxine XR (EFFEXOR-XR) 75 MG 24 hr capsule TAKE 2 CAPSULES BY MOUTH EVERY DAY IN THE MORNING 12/21/2021 Active torsemide (DEMADEX) 10 MG tablet Take 10 mg by mouth 2 times daily 05/26/2022 Active allopurinol (ZYLOPRIM) 100 MG tablet 06/14/2022 Active amLODIPine (NORVASC) 10 MG tablet 06/05/2022 Active atenolol (TENORMIN) 25 MG tablet 06/27/2022 Active atorvastatin (LIPITOR) 40 MG tablet 06/27/2022 Active Blood Glucose Monitoring Suppl (Common Curriculum ULTRA 2) w/Device kit 05/28/2022 Active chlorthalidone (HYGROTON) 25 MG tablet 04/25/2022 Active cyanocobalamin (VITAMIN B-12) 1000 MCG/ML injection ADMINISTER 1 ML UNDER THE SKIN EVERY WEEK IN THE MORNING 04/27/2022 Active esomeprazole (NexIUM) [address] capsule 06/14/2022 Active Breo Ellipta 100-25 MCG/INH inhaler INHALE 1 PUFF BY MOUTH TWICE DAILY DIRECTED NEEDED 06/04/2022 Active OneTouch Ultra test strip USE DIRECTED TO CHECK GLUCOSE ONCE DAILY 05/27/2022 Active hydrALAZINE (APRESOLINE) 25 MG tablet 06/05/2022 Active Synthroid 75 MCG tablet TAKE 1 TABLET BY MOUTH EVERY DAY IN THE MORNING 04/20/2022 Active Korlym 300 MG tablet 04/15/2022 Acti ve Klor-Con 20 MEQ packet MIX CONTENTS OF 1 PACKET WITH LIQUID AND DRINK BY MOUTH DAILY 06/05/2022 Active sertraline (ZOLOFT) 100 MG tablet 06/14/2022 Active spironolactone (ALDACTONE) 25 MG tablet 05/28/2022 Active Trintellix 20 MG tablet 06/25/2022 Active Active Problems Problem Noted Date Diagnosed Date Other chest pain 06/27/2022 Primary insomnia 05/26/2022 Overview (06/27/2022): Last Assessment & Plan: Continue prn trazodone and melatonin Acute pulmonary edema 05/18/2022 Overview (06/27/2022): Last Assessment & Plan: Acute resolved. Pulm status much improved although continues to require O2 - 2L continuously at home Chronic respiratory failure with hypercapnia 10/2022 Overview (06/27/2022): Last Assessment & Plan: Continues on O2. Will need O2 at discharge. Hypercortisolism 05/18/2022 Overview (06/27/2022): Last Assessment & Plan: Patient follows with Dr.Megan Morrissey. Follow-up 2-3 days after discharge, to consider restarting Mifepristone. Also to monitor Synthroid dose and thyroid studies - DC'd with 88mcg synthroid. Leukocytosis 05/18/2022 Overview (06/27/2022): Last Assessment & Plan: Monitor for improvement, continues on abx. Multiple renal cysts 05/18/2022 Overview (06/27/2022): Last Assessment & Plan: CT abd:Multiple denser than water renal lesions, which may represent proteinaceous or hemorrhagic cysts. [address] or MRI can be obtained to assess for stability. Diverticulitis of intestine, part unspecified, without perforation or abscess without bleeding 05/18/2022 Overview (06/27/2022): Last Assessment & Plan: Completed Augmentin. Bowels moving well off bowel regimen. Pain controlled with minimal norco use. Continue prn zofran FH: Hypertension 12/29/2021 Chronic obstructive pulmonary disease 12/24/2021 Spinal stenosis, lumbar region with neurogenic c laudication 12/24/2021 Peripheral vascular disease 03/12/2021 Anemia 06/06/2019 Left ventricular cardiac dysfunction 06/06/2019 Mitral valve prolapse 06/06/2019 Pulmonary hypertension 06/06/2019 Chronic kidney disease, stage 3 (moderate) 12/20 Aortic valve regurgitation 07/27/2018 Abdominal bruit 09/22/2017 Other acute kidney failure 06/08/2017 Depressive disorder 12/09/2016 Fatigue 12/09/2016 Obesity 10/07/2016 Arthritis 09/23/2016 Bacteremia 08/26/2016 Bradycardia 08/10/2016 Chronotropic incompetence 08/10/2016 Edema of lower extremity 08/10/2016 Pain in lower limb 08/10/2016 Hypertensive chronic kidney disease with stage 1 through stage 4 chronic kidney disease, or unspecified chronic kidney disease 11/25/2015 Occlusion and stenosis of bilateral carotid nimo alec 10/12/2015 Dizziness 09/21/2015 Excessive sweating 09/21/2015 Shortness of breath 09/21/2015 Tobacco dependence syndrome 09/21/2015 History of substance abuse 09/21/2015 Chronic kidney disease, stage 2 (mild) 5 Asthma 10/13/2014 Overview (01/20/2019): Converted unresolved ICD9, potential mismatch. Major depressive disorder with single episode Anxiety disorder 10/13/2014 Essential (primary) hypertension 10/13/2014 Other hyperlipidemia 10/13/2014 Overview (01/20/2019): Converted unresolved ICD9, potential mismatch. Hypothyroidism 10/13/2014 Gastro-esophageal reflux disease without esophag itis 10/13/2014 Obstructive sleep apnea syndrome 05/23/2014 Immunizations Name Administration Dates Next Due Pneumococcal Conjugate 13-Valent 11/26/2015 Family History Medical History Relation Comments Heart disease Father Hypertensive disorder Father Kidney disease Father Malignant neoplastic disease Father Diabetes mellitus Mother Heart disease Mother Kidney stone Neg Hx Relation Status Comments Father Mother Social History Tobacco Use Types Packs/Day Years Used Date Smoking Tobacco: Former Smokeless Tobacco: Never Alcohol Use Standard Drinks/Week Comments No 0 (1 standard drink = 0.6 oz pur e alcohol) Sex and Gender Information Value Date Recorded Sex Assigned at Not on file Gender Identity Not on file Sexual Orientation Not on file Last Filed Vital Signs Vital Sign Reading Time Taken Comments Blood Pressure 136/80 06/28/2022 1:26 PM CDT Pulse - - Temperature 35.8 ??C (96.5 ??F) 06/28/2022 1:26 PM CD T Respiratory Rate 18 06/28/2022 1:26 PM CDT Oxygen Saturation - - Inhaled Oxygen Concentration - - Weight 91.6 kg (202 lb) 06/28/2022 1:26 PM CDT Height 154.9 cm (5' 1 ) 06/28/2022 1:26 PM CDT Body Mass Index 38.17 06/28/2022 1:26 PM CDT Plan of Treatment Health Maintenance Due Date Last Done Comments Pneumococcal PPSV23/PCV13 65 + Years / High and Highest Risk (2 of 4 - PPSV23 or PCV20) 01/21/2016 11/26/2015 Influenza Vaccine (#1) 2024 Care Teams Studio Sales Associate Relationship Specialty Start Date End Date Jn Velásquez MD [address] [place] [address] PCP - General Internal Medicine 06/18/20
--- OUTSIDE RECORDS SUMMARY | 2024-12-04 13:03 | XMS_ITS ---
Author Organization [facility] ousmane Address [address] [place] [address] Care Team Providers Care Breaker Up Machine Operator Name Role Phone zzzzMigration, zzzzProvider Unavailable Unav ailable REASON FOR VISIT EMR-Clive Encounters Encounter Location Date Provider Diagnosis [facility] [address] [place] [address] 08/28/2023 zzzzProvider zzzzMigration Plan Of Treatment No Information Progress Notes * Jacy MILLS LDOB: [birth year] (79 yo F)Acc No.[id number]:08/28/2023 Patient:?Jacy MILLS :1945???Age:77 Y???Sex:Female Address:[address] [place], [address] Subjective: * Chief Complaints: * ???EMR-Clive * Medical History:? * Surgical History:? * Hospitalization/Major Diagno stic Procedure:? * Medications:? Objective: * Vitals:? * Physical Examination:? Assessment: Plan: * Treatment: * Procedure Codes:? * * Date:?
--- OUTSIDE RECORDS SUMMARY | 2024-12-04 13:04 | XMS_ITS | Encounter Summary ---
Author Organization [facility] Address [address] [place] [address] Phone Care Team Providers Care Litigation Examiner Name Role Phone Jn Velásquez MD Primary Care Provider [phone] Waqas De Leon MD Unavailable [phone] Waqas De Leon MD Unavailable [phone] Cortney Corona MD Unavailable [phone] Stephanie Morrissey MD Primary Care Provider [phone] Jn Velásquez MD Primary Care Provider [phone] Miscellaneous, Not In File Unavailable Unava ilable Daniel Go MD Unavailable [phone] James Cifuentes MD Unavailable [phone] Encounter Details Date Type Department Care Team (Latest Contact Info) Description 06/16/2022 Orders Only [facility] Scanning, Provider Social History Tobacco Use Types Packs/Day Years Used Date Smoking Tobacco: Never Alcohol Use Standard Drinks/Week Comments No 0 (1 standard drink = 0.6 oz pur e alcohol) Social Connection and Isolat ion Panel [NHANES] Answer Date Recorded In a typical week, how many times do you talk on the phone with family, friends, or neighbors? More than three times a week 05/04/2022 How often do you get togethe r with friends or relatives? More than three times a week 05/04/2022 How often do you attend chur ch or synagogue services? Never 05/04/2022 Do you belong to any clubs o r organizations such as scientology groups, unions, fraternal or athletic groups, or school groups? No 05/04/2022 How often do you attend meet ings of the clubs or organizations you belong to? Never 05/04/2022 Are you , , di vorced, , never , or living with a partner? 05/04/2022 Overall Financial Resource Strain (CARDIA) Answe r Date Recorded How hard is it for you to pa y for the very basics like food, housing, medical care, and heating? Not hard at all 05/04/2022 Hunger Vital Sign Answer Date Recorded Within the past 12 months, y ou worried that your food would run out before you got the money to buy more. Never true 05/04/20 22 Within the past 12 months, t he food you bought just didn't last and you didn't have money to get more. Never true 05/04/2022 PRAPARE - Transportation Answer Date Re corded In the past 12 months, has l ack of transportation kept you from medical appointments or from getting medications? No 04/08 In the past 12 months, has l ack of transportation kept you from meetings, work, or from getting things needed for daily living? No 05/04/2022 Housing Stability Vital Sign Answer Darrell e Recorded In the last 12 months, was t here a time when you were not able to pay the mortgage or rent on time? No 05/04/2022 In the last 12 months, how many places have you lived? 1 05/04/2022 In the last 12 months, was t here a time when you did not have a steady place to sleep or slept in a chcf (including now)? 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 Gender Identity Not on file Sexual Orientation Not on file documented as of this encounter Plan of Treatment Not on file documented as of this encounter Procedures Procedure Name Priority Date/Time Associated Diagnosis Comments SCAN - LABS 06/16/2022 documented in this encounter Results * SCAN - LABS (06/16/2022) us Provider Scanning Final Result documented in this encounter Visit Diagnoses Not on filedocumented in this encounter Additional Health Concerns Infection Onset Date Last Indicated Resolved Time COVID: Suspected 05/30/2023 05/30/2023 05/30/2023 2:22 PM CDT documented as of this encounter Care Teams Litigation Examiner Relationship Specialty Start Date End Date Jn Velásquez MD PCP - General Family Medicine 11/20/21 08/31/22 Stephanie Morrissey MD PCP - General Internal Medicine 09/01/22 05/28/23 Jn Velásquez MD PCP - General Family Medicine 05/29/23 Waqas De Leon MD Internal Medicine 11/20/21 Waqas De Leon MD Internal Medicine 06/06/19 Cortney Corona MD Referring Physician Surgery 05/14/22 Miscellaneous, Not In File 05/31/23 Daniel Go MD [address] [place] [address] Consulting Physician Interventional Cardiology 05/31/23 [place] [address] [facility] [address] [place] [address] Consulting Physician Pulmonary Disease 05/31/23 documented as of this encounter
--- OUTSIDE RECORDS SUMMARY | 2024-12-04 13:04 | XMS_ITS | Clinical Summary ---
Author Organization [facility] Address [address] [place] [address] Care Team Providers Care River Boat Captain Name Role Phone Unavailable Primary Care Provider Unavailabl e Social History Tobacco Use Types Packs/Day Years Used Date Smoking Tobacco: Never Assessed Comments Unknown Sex and Gender Information Value Date Recorded Sex Assigned at Not on file Legal Sex Female 11:56 PM CDT Gender Identity Not on file Sexual Orientation Not on file Plan of Treatment Upcoming Encounters Date Type Department Care Team (Late st Contact Info) Description 12/20/2024 9:00 AM VOTING MACHINE MECHANIC Office Visit [facility] - [address] [address] Leonor Davenport MD [address] [place] [address] Health Maintenance Due Date Last Done Comments DTAP/TDAP/TD VACCINES (1 - Tdap) 1966 PNEUMOCOCCAL VACCINE 65+ YEARS (1 of 1 - PCV) 09/12/19 97 ZOSTER VACCINE (1 of 2) 1997 OSTEOPOROSIS SCREENING 2012 RSV VACCINE (60+ or ) (1 - 1-dose 75+ series) 2022 INFLUENZA VACCINE (#1) 2024 Insurance [place] [id number]
--- OUTSIDE RECORDS SUMMARY | 2024-12-04 13:04 | XMS_ITS ---
Author Organization [facility] ousmane Address [address] [place] [address] Care Team Providers Care Pegger Dobby Looms Name Role Phone zzzzMigration, zzzzProvider Unavailable Unav ailable REASON FOR VISIT EMR-Clive Encounters Encounter Location Date Provider Diagnosis [facility] [address] [place] [address] 08/27/2023 zzzzProvider zzzzMigration Plan Of Treatment No Information Progress Notes * Jacy MILLS LDOB: [birth year] (79 yo F)Acc No.[id number]:08/27/2023 Patient:?Jacy MILLS :1945???Age:77 Y???Sex:Female Address:[address] [place], [address] Subjective: * Chief Complaints: * ???EMR-Clive * Medical History:? * Surgical History:? * Hospitalization/Major Diagno stic Procedure:? * Medications:? Objective: * Vitals:? * Physical Examination:? Assessment: Plan: * Treatment: * Procedure Codes:? * * Date:?
--- OUTSIDE RECORDS SUMMARY | 2024-12-04 13:04 | XMS_ITS ---
Author Organization [facility] Address [address] [facility] [address] [place] [address] Care Team Providers Care Codifier Name Role Phone Sandie Madrid [phone] Migration, Provider Unavailable Unavailable REASON FOR VISIT EMR-Clive Social History Sex Assigned At : Social History Observation Description Sex Assigned At Female Encounters Encounter Location Date Provider Diagnosis [facility] [address] [facility] [address] [place] [address] 03/24/2024 Provider Migration Plan Of Treatment Next Appt Details Provider Name:Sandie Madrid, 01/21/2025 11:30:00 AM, [address], [facility] [address], [place], [address], Progress Notes * JESU HARLEY LDOB: [birth year] (78 yo F)Acc No.[id number]:03/24/2024 Patient:?JESU HARLEY :1945???Age:78 Y???Sex:Female Address:[facility] [address], [place], [address] Subjective: * Chief Complaints: * ???EMR-Clive * Medical History:? * Surgical History:? * Hospitalization/Major Diagno stic Procedure:? * Medications:? Objective: * Vitals:? * Physical Examination:? Assessment: Plan: * Treatment: * Procedure Codes:? * true * Date:? Generated for Printi ng/Faxing/eTransmitting on:?12/04/2024 01:04 PM PROFESSOR OF EARLY CHILDHOOD EDUCATION
--- OUTSIDE RECORDS SUMMARY | 2024-12-04 13:04 | XMS_ITS | Encounter Summary ---
Author Organization [facility] Address [address] [place] [address] Phone Care Team Providers Care Design Project Manager Name Role Phone Jn Velásquez MD Primary Care Provider [phone] Waqas De Leon MD Unavailable [phone] Waqas De Leon MD Unavailable [phone] Cortney Corona MD Unavailable [phone] Stephanie Morrissey MD Primary Care Provider + [phone] Jn Velásquez MD Primary Care Provider [phone] Miscellaneous, Not In File Unavailable Unava ilable Daniel Go MD Unavailable [phone] James Cifuentes MD Unavailable [phone] Encounter Details Date Type Department Care Team (Latest Contact Info) Description 04/19/2022 Orders Only [facility] Scanning, Provider Social History Tobacco Use Types Packs/Day Years Used Date Smoking Tobacco: Never Alcohol Use Standard Drinks/Week Comments No 0 (1 standard drink = 0.6 oz pur e alcohol) Comments Unknown Sex and Gender Information Value Date Recorded Sex Assigned at Not on file Legal Sex Female 7:23 PM [employer] Gender Identity Not on file Sexual Orientation Not on file documented as of this encounter Plan of Treatment Not on file documented as of this encounter Procedures Procedure Name Priority Date/Time Associated Diagnosis Comments SCAN - LABS 04/19/2022 documented in this encounter Results * SCAN - LABS (04/19/2022) us Provider Scanning Final Result documented in this encounter Visit Diagnoses Not on filedocumented in this encounter Additional Health Concerns Infection Onset Date Last Indicated Resolved Time COVID: Suspected 05/30/2023 05/30/2023 05/30/2023 2:22 PM CDT documented as of this encounter Care Teams Design Project Manager Relationship Specialty Start Date End Date Jn Velásquez MD PCP - General Family Medicine 11/20/21 08/31/22 Stephanie Morrissey MD PCP - General Internal Medicine 09/01/22 05/28/23 Jn Velásquez MD PCP - General Family Medicine 05/29/23 Waqas De Leon MD Internal Medicine 11/20/21 Waqas De Leon MD Internal Medicine 06/06/19 Cortney Cornoa MD Referring Physician Surgery 05/14/22 Miscellaneous, Not In File 05/31/23 Daniel Go MD [address] [place] [address] Consulting Physician Interventional Cardiology 05/31/23 [place] [address] [facility] [address] [place] [address] Consulting Physician Pulmonary Disease 05/31/23 documented as of this encounter
--- OUTSIDE RECORDS SUMMARY | 2024-12-04 13:04 | XMS_ITS | CONTINUITY OF CARE DOCUMENT ---
Author Name sterlingjud sterlingjud Address Unknown Organization [facility] Address [address] [place] [address] Phone [phone] Care Team Providers Care Form Maker Name Role Phone Braulio KING, Roberto Carlos Unavailable SUE MCCANN MD Unavailable SUE MCCANN MD Unavailable [phone] PROBLEMS Condition Status Date Provider Notes Abnormal nuclear stress test active Roberto Carlos Ramsey MD Orthostatic hypotension active Jason Beatt olivia Chest pain-type to be determined active Cedric Valdez Chronic kidney disease stage 2 active Staci Diaz NP Spinal stenosis, lumbar region with neurogenic claudication active Staci Diaz NP COPD active 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 PVD active Penny Melendez Aortic regurgitation, mild-moderate active Tyrell Berumen Abdominal bruit active Roberto Carlos Ramsey MD Depression active Roberto Carlos Ramsey MD Anxiety active Roberto Carlos Ramsey MD Fatigue active Roberto Carlos Ramsey MD Obesity active Armani Valencia Arthritis active Roberto Carlos Ramsey MD Hypertension active Roberto Carlos Ramsey MD Bacteremia S/P PACEMAKER EXPLANTATION active Armani Valencia Chronotropic incompetence active Faisal Jiang i, MD Bradycardia sinus completed - Staci Diaz NP Sleep apnea, obstructive - o n CPAP active Roberto Carlos Ramsey MD Leg pain completed - 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 Leg edema active Faisal Carlos MD S/P EXPLANTED Biotronik dc (MRI Safe) pm completed - Armani Valencia Carotid artery stenosis, <50 % ICA b/l active Roberto Carlos Ramsey MD Diaphoresis active Roberto Carlos Ramsey MD Hypothyroidism active Roberto Carlos Ramsey MD Dizziness active Faisal Carlos MD Hx of tobacco abuse active Penny Melendez Shortness of breath active Faisal Carlos MD ENCOUNTERS Date Type Provider Location Encounter Diag nosis 12/13 - 12/13 In-person encounter Office Visit Roberto Carlos Ramsey MD [facility] Orthostatic hypotension 11/11 - 11/11 In-person encounter Office Visit Roberto Carlos Ramsey MD [facility] - 0 In-person encounter Office Visit Roberto Carlos Ramsey MD [facility] 07/06 - 07/07 In-person encounter Office Visit Roberto Carlos Ramsey MD [facility] 05/04 - 05/08 In-person encounter Office Visit Roberto Carlos Ramsey MD [facility] 03/11 - 03/11 In-person encounter Office Visit Roberto Carlos Ramsey MD [facility] 02/25 - 02/25 In-person encounter Office Visit Roberto Carlos Ramsey MD [facility] Chest pain-type to be determined - In-person encounter Office Visit Roberto Carlos Ramsey MD [facility] 06/04 - 06/08 In-person encounter Office Visit Roberto Carlos Ramsey MD [facility] 03/05 - 03/08 In-person encounter Office Visit Roberto Carlos Ramsey MD [facility] 12/25 - 01/04 In-person encounter Office Visit Roberto Carlos Ramsey MD [facility] Leg painBradycardia sinusCOPDSpinal sten osis, lumbar region with neurogenic claudicationChronic kidney disease stage 2 03/13 - 03/13 In-person encounter Office Visit Roebrto Carlos Ramsey MD [facility] Hx of tobacco abusePVD 02/14 - 02/18 In-person encounter Office Visit Roberto Carlos Ramsey MD [facility] 02/09 - 02/09 In-person encounter Office Visit Roberto Carlos Ramsey MD [facility] Aortic regurgitation, mild-moderate - In-person encounter Office Visit Roberto Carlos Ramsey MD [facility] 12/22 - 12/22 In-person encounter Office Visit Roberto Carlos Ramsey MD [facility] Hx of tobacco abuse 11/23 - 11/23 In-person encounter Office Visit Roberto Carlos Ramsey MD [facility] Abdominal bruit 03/25 - 04/06 In-person encounter Office Visit Roberto Carlos Ramsey MD [facility] 12/10 - 12/15 In-person encounter Office Visit Roberto Carlos Ramsey MD [facility] Carotid artery stenosis, <50% ICA b/lSle ep apnea, obstructive - on CPAPArthritisFatigueAnxietyDepression 12/09 - 12/17 In-person encounter Office Visit Roberto Carlos Ramsey MD [facility] Carotid artery stenosis, <50% ICA b/lS/P EXPLANTED Biotronik dc (MRI Safe) pmBacteremia S/P PACEMAKER EXPLANTATIONObesity 11/24 - 11/28 In-person encounter Office Visit Roberto Carlos Ramsey MD [facility] HypothyroidismDiaphoresisHypertensionArt hritis - In-person encounter Office Visit Roberto Carlos Ramsey MD [facility] Bacteremia S/P PACEMAKER EXPLANTATION - In-person encounter Office Visit Faisal Carlos MD [facility] Leg edemaSleep apnea, obstructive - on CPAPChronotropic incompetence 12/14 - 12/17 In-person encounter Office Visit Faisal Carols MD [facility] Carotid artery stenosis, <50% ICA b/l 11/22 - 11/25 In-person encounter Office Visit Faisal Carlos MD [facility] Shortness of breathHx of tobacco abuseDizzinessHypothyroidismDiaphoresis VITAL SIGNS Date Observation Value Provider Body Mass Index (Ratio) 43.53 kg/m2 Cong as Treichlers blood pressure, cuff size large [facility] blood pressure, diastolic 72 mm[Hg] Ke rri Montez blood pressure, systolic 126 mm[Hg] Laurie ri Tennillenerojelio oxygen saturation, oximetry 91 % Nia Virgie pulse rate 65 /min Nia [facility] weight E&M 238 [lb_av] Nia [facility] height E&M 62 [in_i] Nia [facility]ill[facility]fe [facility] Body Mass Index (Ratio) 44.81 kg/m2 Cong as Treichlers blood pressure, cuff size large Ke rri Gruenenfelder blood pressure, diastolic 80 mm[Hg] Ke rri Gruenenfelder blood pressure, systolic 122 mm[Hg] Laurie ri Gruenenfelder oxygen saturation, oximetry 95 % Nia Gruenenfelder respiratory rate E&M 12 /min Nia G swatienenfelder pulse rate 68 /min Nia Gruenenfe er weight E&M 245 [lb_av] Nia Gruenenfe norma height E&M 62 [in_i] Nia Gruenenfe norma Body Mass Index (Ratio) 41.88 kg/m2 Cedric Danielsreyna pulse rate 69 /min Nanci Gene blood pressure, diastolic 64 mm[Hg] An johanna Mills blood pressure, systolic 140 mm[Hg] Any ana [place] oxygen saturation, oximetry 92 % Nanciana Milsl weight E&M 229 [lb_av] Nanci Gene blood pressure, cuff size large An johanna Mills height E&M 62 [in_i] Nanciana Mills Body Mass Index (Ratio) 40.78 kg/m2 Ike Ramsey MD blood pressure, cuff size regular Ke rri Gruenenfeldprachi blood pressure, diastolic 80 mm[Hg] Ke rri Gruenenfelder blood pressure, systolic 130 mm[Hg] Ker ri Montez oxygen saturation, oximetry 92 % Nia Montez respiratory rate E&M 14 /min Nia G miguelangel pulse rate 56 /min Nia Khaiuenenfe norma weight E&M 223 [lb_av] Nia Gruenenfe norma height E&M 62 [in_i] Nia Gruenenfe norma Body Mass Index (Ratio) 40.23 kg/m2 Ike Ramsey MD blood pressure, cuff size regular Ke rri Gruenenfelder blood pressure, diastolic 80 mm[Hg] Ke rri Gruenenfelder blood pressure, systolic 160 mm[Hg] Ker ri Khaiuenenfeldprachi oxygen saturation, oximetry 92 % Nia Khaiuenenfelder respiratory rate E&M 14 /min Nia G ruenenfelder pulse rate 74 /min Nia Gruenenfe lder weight E&M 220 [lb_av] Nia Gruenenfe lder height E&M 62 [in_i] Nai Gruenenfe lder Body Mass Index (Ratio) 39.87 kg/m2 Cedric Ahmedzai blood pressure, cuff size regular Ke rri Gruenenfelder blood pressure, diastolic 80 mm[Hg] Ke rri Gruenenfelder blood pressure, systolic 126 mm[Hg] Laurie ri Gruenenfelder oxygen saturation, oximetry 94 % Nia Gruenenfelder respiratory rate E&M 16 /min Nia G ruenenfelder pulse rate 67 /min Nia Gruenenfe lder weight E&M 218 [lb_av] Nia Gruenenfe lder height E&M 62 [in_i] Nia Gruenenfe lder Body Mass Index (Ratio) 40.42 kg/m2 [facility], cuff size regular Ke rri Gruenenfelder blood pressure, diastolic 58 mm[Hg] Je dorisifer Fendler GEOTHERMAL SYSTEM INSTALLER blood pressure, systolic 140 mm[Hg] Oliva nifer Fendler GEOTHERMAL SYSTEM INSTALLER oxygen saturation, oximetry 93 % Nia Gruenenfelder respiratory rate E&M 14 /min Nia G ruenenfelder pulse rate 62 /min Nia Gruenenfe lder weight E&M 221 [lb_av] Nia Gruenenfe lder height E&M 62 [in_i] Nia Gruenenfe lder Body Mass Index (Ratio) 38.95 kg/m2 Ike Ramsey MD blood pressure, diastolic 61 mm[Hg] Li nkLogic blood pressure, systolic 114 mm[Hg] Verna kLogic blood pressure, diastolic 61 mm[Hg] Hallie garcia [place] blood pressure, systolic 114 mm[Hg] Charlie darius [place] oxygen saturation, oximetry 94 % Marti [place] pulse rate 70 /min Marti [facility] gale[facility] weight E&M 213 [lb_av] Marti [facility] galeas respiratory rate E&M 16 /min Madelyn silver [place] blood pressure, cuff size large Hallie garcia [place] height E&M 62 [in_i] Marti galeas Body Mass Index (Ratio) 38.41 kg/m2 Ike Ramsey MD blood pressure, diastolic 80 mm[Hg] Li nkLogic blood pressure, systolic 191 mm[Hg] Verna kLogic blood pressure, diastolic 80 mm[Hg] Ke skyleri Montez blood pressure, systolic 191 mm[Hg] Laurie ri Montez blood pressure, cuff size large Ke rri Montez Inhaled O2 3 L/min Nia [facility] oxygen saturation, oximetry 98 % Nia Herrmann respiratory rate E&M 16 /min Nia means pulse rate 76 /min Nia Akash prachi weight E&M 210 [lb_av] Nia jim height E&M 62 [in_i] Nia Bustos prachi Body Mass Index (Ratio) 40.78 kg/m2 Cedric Millardmedzai blood pressure, diastolic 70 mm[Hg] Li nkLogic blood pressure, systolic 110 mm[Hg] Verna kLogic blood pressure, cuff size large Ke rri Gruenenfelder blood pressure, diastolic 70 mm[Hg] Ke rri Gruenenfelder blood pressure, systolic 110 mm[Hg] Ker ri Gruenenfelder oxygen saturation, oximetry 96 % Nia Gruenenfelder respiratory rate E&M 16 /min Nia G ruenenfelder pulse rate 95 /min Nia Gruenenfe lder weight E&M 223 [lb_av] Nia Gruenenfe er height E&M 62 [in_i] Nia Gruenenfe er Body Mass Index (Ratio) 40.42 kg/m2 Ike Ramsey MD blood pressure, diastolic 70 mm[Hg] Li nkLogic blood pressure, systolic 130 mm[Hg] Verna kLogic blood pressure, cuff size large Ke rri Gruenenfelder blood pressure, diastolic 70 mm[Hg] Ke rri Gruenenfelder blood pressure, systolic 130 mm[Hg] Ker ri Gruenenfelder oxygen saturation, oximetry 93 % Nia Gruenenfelder respiratory rate E&M 16 /min Nia G ruenenfelder pulse rate 67 /min Nia Gruenenfe lder weight E&M 221 [lb_av] Nia Gruenenfe lder height E&M 62 [in_i] Nia Gruenenfe lder Body Mass Index (Ratio) 38.59 kg/m2 Angelito Melendez blood pressure, cuff size large Ke rri Gruenenfelder blood pressure, diastolic 70 mm[Hg] Ke rri Gruenenfelder blood pressure, systolic 120 mm[Hg] Ker ri Gruenenfelder oxygen saturation, oximetry 97 % Nia Gruenenfelder respiratory rate E&M 16 /min Nia G ruenenfelder pulse rate 78 /min Nia Gruenenfe lder weight E&M 211 [lb_av] Nia Gruenenfe lder height E&M 62 [in_i] Nia Gruenenfe lder Body Mass Index (Ratio) 33.47 kg/m2 Jord trinity Greenberg blood pressure, diastolic 78 mm[Hg] Cy cateana Augustine blood pressure, systolic 152 mm[Hg] Mariluz tania Augustine blood pressure, cuff size regular Cy ntjoe Augustine respiratory rate E&M 16 /min Concha Augustine pulse rate 89 /min Concha Campbel l oxygen saturation, oximetry 97 % Concha Augustine weight E&M 183 [lb_av] Concha Campbel l height E&M 62 [in_i] Concha Campbel l Body Mass Index (Ratio) 38.59 kg/m2 Willian farley [place] blood pressure, diastolic 60 mm[Hg] Da daniel Sujatha blood pressure, systolic 122 mm[Hg] Dac ia Sujatha oxygen saturation, oximetry 93 % Jessie Sujatha respiratory rate E&M 18 /min Jessie V oss pulse rate 70 /min Jessie Sujatha weight E&M 211 [lb_av] Jessie Sujatha height E&M 62 [in_i] Jessie Sujatha Body Mass Index (Ratio) 38.04 kg/m2 Ike Ramsey MD blood pressure, diastolic 60 mm[Hg] Shmuel desai Matthews blood pressure, systolic 142 mm[Hg] Robb smith [place] oxygen saturation, oximetry 99 % Tomás Matthews respiratory rate E&M 16 /min [place] Matthews pulse rate 77 /min Tomás Matthews weight E&M 208 [lb_av] [place] Matthews height E&M 62 [in_i] [facility] ([facility]) 36.94 kg/m2 Ike Ramsey MD blood pressure, diastolic 78 mm[Hg] Cookie Harrytia Torres blood pressure, systolic 175 mm[Hg] Radha Carson Torres oxygen saturation, oximetry 95 % GeraldineDawna Torres respiratory rate E&M 18 /min Larissa trinity Torres pulse rate 66 /min Geraldine Nowak carroll weight E&M 202 [lb_av] Geraldine Nowak guzman height E&M 62 [in_i] Geraldine Nowak [facility] Body Mass Index (Ratio) 37.49 kg/m2 Ike Ramsey MD blood pressure, cuff size regular Bj Herrmann blood pressure, diastolic, standing 60 mm [Hg] Nia Herrmann blood pressure, systolic, standing 94 mm[ Hg] Nia Herrmann oxygen saturation, oximetry 93 % Nia Herrmann respiratory rate E&M 18 /min Nia means pulse rate 74 /min Nia green weight E&M 205 [lb_av] Nia [facility] height E&M 62 [in_i] Nia [facility] Body Mass Index (Ratio) 38.41 kg/m2 Ike Ramsey MD blood pressure, diastolic 80 mm[Hg] Da daniel Sujatha blood pressure, systolic 142 mm[Hg] Dac ia Sujatha oxygen saturation, oximetry 97 % Jessie Sujatha respiratory rate E&M 16 /min Jessie V oss pulse rate 84 /min Jessie Sujatha weight E&M 210 [lb_av] Jessie Sujatha height E&M 62 [in_i] Jessie Sujatha Body Mass Index (Ratio) 37.31 kg/m2 Dionicio Valencia blood pressure, cuff size regular Ke rri Montez blood pressure, diastolic 68 mm[Hg] Ke rri Montez blood pressure, systolic 153 mm[Hg] Laurie Herrmann oxygen saturation, oximetry 97 % Nia Herrmann respiratory rate E&M 16 /min Nia means pulse rate 69 /min Nia [facility] weight E&M 204 [lb_av] Nia [facility]ash [facility] height E&M 62 [in_i] Nia [facility] Body Mass Index (Ratio) 38.95 kg/m2 Dionicio Valencia blood pressure, cuff size regular Ke rri Tennillenerojelio blood pressure, diastolic 70 mm[Hg] Ke rri Gruenerojelio blood pressure, systolic 152 mm[Hg] Laurie Herrmann oxygen saturation, oximetry 97 % Nia Montez respiratory rate E&M 18 /min Nia G miguelangel pulse rate 79 /min Nia [facility] weight E&M 213 [lb_av] Nia [facility]os [facility] height E&M 62 [in_i] Nia Bustos er Body Mass Index (Ratio) 38.41 kg/m2 Ike Ramsey MD blood pressure, resting Yes Ike Ramsey MD blood pressure, diastolic 71 mm[Hg] Cookie Torres blood pressure, systolic 168 mm[Hg] Radha Torres oxygen saturation, oximetry 91 % Geraldine Torres respiratory rate E&M 18 /min Larissa Torres pulse rate 70 /min Geraldine hodges weight E&M 210 [lb_av] Grealdine Nowka [facility] height E&M 62 [in_i] Geraldine Noawk [facility] blood pressure, diastolic 80 mm[Hg] Bj Herrmann blood pressure, systolic 144 mm[Hg] Laurie Herrmann pulse rate 52 /min Nia [facility]os [facility] oxygen saturation, oximetry 94 % Nia Herrmann respiratory rate E&M 20 /min Nia means Body Mass Index (Ratio) 43.53 kg/m2 Tj Herrmann weight E&M 238 [lb_av] Nia Bustos er blood pressure, diastolic, left arm 58 mm [Hg] Ysabel Norris blood pressure, systolic, left arm 136 mm [Hg] Ysabel Norris blood pressure, diastolic, right arm 68 m m[Hg] Ysabel Norris blood pressure, systolic, right arm 129 m m[Hg] Ysabel Norris blood pressure, diastolic 58 mm[Hg] Ma gonzales Norris blood pressure, systolic 136 mm[Hg] Ruthie Norris pulse rate 68 /min Ysabel Norris oxygen saturation, oximetry 96 % Ysabel Norris respiratory rate E&M 15 /min Ysabel Norris Body Mass Index (Ratio) 38.04 kg/m2 [facility] weight E&M 208 [lb_av] Ysabel Norris blood pressure, diastolic 71 mm[Hg] Ma gonzales [facility] blood pressure, systolic 141 mm[Hg] Ruthie sera Norris blood pressure, diastolic, left arm 73 mm [Hg] Ysabel Norris blood pressure, systolic, left arm 131 mm [Hg] Ysabel [facility] blood pressure, diastolic, right arm 71 m m[Hg] Ysabel [facility] blood pressure, systolic, right arm 141 m m[Hg] Ysabel Norris pulse rate 70 /min Ysabel [facility] oxygen saturation, oximetry 98 % Ysabel Norris respiratory rate E&M 15 /min Ysabel [facility] Body Mass Index (Ratio) 39.32 kg/m2 [facility] weight E&M 215 [lb_av] Ysabel Norris blood pressure, diastolic 75 mm[Hg] Cookie Torrse blood pressure, systolic 158 mm[Hg] Radha Torres pulse rate 74 /min Geraldine hodges oxygen saturation, oximetry 96 % Geraldine Torres respiratory rate E&M 18 /min Larissa Torres Body Mass Index (Ratio) 39.32 kg/m2 Marissa Torres weight E&M 215 [lb_av] Geraldine hodges height E&M 62 [in_i] Geraldine hodges ALLERGIES Allergy Name Onset Date Reaction Criticality Status LISINOPRIL High Criticality active RESULTS Date Observation Value Provider Reference Range Interpretation Location 1 free thyroxine index 4.4 [facility] 1.2-4.9 1 triiodothyronine resin uptake 35 % [facility] 24-39 1 thyroxine, serum, total 12.7 ug/dL [facility] 4.5-12.0 High 1 lipoprotein, beta, serum, point, quantitative, calculated 73 mg/dL [facility] 0-99 1 very low density lipoproteins 17 mg/dL [facility] 5-40 1 HDL cholesterol, serum 66 mg/dL [facility] >39 1 triglyceride, serum, random 87 mg/dL [facility] 0-149 1 cholesterol, serum 156 mg/dL [facility] [id number] 6761/04/1 1 basophil count, absolute 0.1 x10E3/uL [facility] 0.0-0.2 1 Eosinophil Absolute Count 0.1 X10E3/UL [facility] 0.0-0.4 1 monocyte count, blood, automated 1.6 X10E3/UL [facility] 0.1-0.9 High 1 lymphocyte count, blood, automated 2.1 X10E3/UL [facility] 0.7-3.1 1 Absolute Neutrophils 8.7 X10E3/UL [facility] 1.4-7.0 High 1 basophils as percent of blood leukocytes 1 % [facility] Not Estab. 1 eosinophils as percent of blood leukocytes 1 % [facility] Not Estab. 1 monocytes as percent of blood leukocytes 13 % [facility] Not Estab. 1 lymphocytes as percent of blood leukocytes 17 % [facility] Not Estab. 1 neutrophils as percent of blood leukocytes 67 % [facility] Not Estab. 1 platelet count 366 X10E3/UL [facility] 560-607 1012/04/1 1 red blood cell distribution width 14.0 % [facility] 11.7-15.4 1 mean corpuscular hemoglobin concentration, RBC 31.5 G/DL [facility] 31.5-35.7 1 mean corpuscular hemoglobin, RBC 28.4 pg [facility] 26.6-33.0 1 mean corpuscular volume, RBC 90 fL [facility] 79-97 1 hematocrit, blood 42.2 % [facility] 34.0-46.6 1 hemoglobin, blood 13.3 g/dL [facility] 11.1-15.9 1 erythrocyte (RBC) count 4.69 X10E6/UL [facility] 3.77-5.28 1 leukocyte count, blood 12.7 X10E3/UL [facility] 3.4-10.8 High 1 alanine aminotransferase (SGPT), serum 16 1/L [facility] 0-32 1 aspartate aminotransferase (SGOT), serum 23 1/L [facility] 0-40 1 alkaline phosphatase, serum 70 1/L [facility] 39-117 1 bilirubin, serum, total 0.7 mg/dL [facility] 0.0-1.2 1 albumin/globulin ratio, serum 1.6 [facility] 1.2-2.2 1 globulin, serum 2.8 [facility] 1.5-4.5 1 albumin, serum 4.4 g/dL [facility] 3.7-4.7 1 protein, total, serum 7.2 g/dL [facility] 6.0-8.5 1 calcium, serum 10.2 mg/dL [facility] 8.7-10.3 1 carbon dioxide, venous blood 22 mmol/L [facility] 20-29 1 chloride, serum 96 mmol/L [facility] 96-106 1 potassium, serum 4.5 mmol/L [facility] 3.5-5.2 1 sodium, serum 141 mmol/L [facility] 634-560 8021/04/1 1 urea nitrogen/creatinine ratio, serum 13 [facility] 12-28 1 eGFR if 28 mL/min/{1 .73_m2} [facility] >59 Low 1 eGFR if not 24 mL/min/{1 .73_m2} [facility] >59 Low 1 creatinine, serum 2.02 mg/dL [facility] 0.57-1.00 High 1 urea nitrogen, blood 26 mg/dL [facility] 8-27 1 blood glucose, random 97 mg/dL [facility] 65-99 HISTORY OF MEDICATION USE Medication Status Instructions Dates Provider Indications Com ments amlodipine 5 mg tablet active TAKE 1 TABLET BY MOUTH EVERY DAY 11/20 Noris Linares ergocalciferol (vitamin D2) 1,250 mcg (50,000 unit) capsule active TAKE 1 CAPSULE BY MOUTH 1 TIME A WEEK 11/15 Nia Herrmann magnesium oxide 400 mg (241.3 mg magnesium) tablet active TAKE 1 TABLET BY MOUTH TWICE DAILY 03/29 Nia Herrmann isosorbide mononitrate 30 mg tablet extended release 24 hr active TAKE 1 TABLET BY MOUTH EVERY DAY 03/29 Nia Herrmann Breo Ellipta 100-25 mcg/dose blister with device active Inhale 1 puff as directed once a day Ana Hernandez COPD furosemide 20 mg tablet active TAKE 1 TABLET BY MOUTH DAILY Jason Bruno Ozempic 1 mg/dose (4 mg/3 mL) pen injector active Zuly Nalluri GEOTHERMAL SYSTEM INSTALLER gabapentin 600 mg tablet active three times a day Carley Wynn NP Trintellix 20 mg tablet active Carley Wynn NP trazodone 100 mg tablet completed - 07/06 Zuly Nalluri GEOTHERMAL SYSTEM INSTALLER Farxiga 5 mg tablet active Take 1 table t by mouth once daily Carley Wynn NP hydralazine 50 mg tablet active Take 1 tablet by mouth three times a day Carley Wynn NP Kerendia 10 mg tablet active TAKE ONE TABLET BY MOUTH EVERY DAY Carley Wynn NP albuterol sulfate 90 mcg/actuation HFA aerosol inhaler active Inhale 1 puff using inhaler three times a day as needed 03/08 Jason Bruno COPD isosorbide mononitrate 30 mg tablet extended release 24 hr completed TAKE 1 TABLET BY MOUTH EVERY DAY 02/25 - 07/06 Zuly Silvestre NP nitroglycerin 0.4 mg tablet, sublingual active PLACE 1 TAB UNDER TONGUE EVERY 5 MIN NEEDED FOR CHEST PAIN (MAX 3 DOSES).IF NO RELIEF AFTER 3RD DOSE GO TO ER 02/25 Carley Wynn NP Breo Ellipta 100-25 mcg/dose blister with device completed Inhale 1 puff as directed as directed INHALE 1 PUFF BY MOUTH EVERY DAY DIRECTED 11/28 - 02/25 Carley Wynn NP Breo Ellipta 100-25 mcg/dose blister with device completed INHALE 1 PUFF BY MOUTH EVERY DAY DIRECTED 11/27 - 02/25 Carley Wynn NP Breo Ellipta 100-25 mcg/dose blister with device completed Inhale 1 puff as directed once a day 06/28 - 11/27 Noris Rushing amlodipine 5 mg tablet completed Take 1 tablet by mouth once a day 06/04 - 11/20 Noris Rushing magnesium oxide 400 mg magnesium tablet completed Take 1 tablet by mouth twice a day 06/04 - 03/29 Nia Herrmann albuterol sulfate 90 mcg/actuation HFA aerosol inhaler completed Inhale 2 puff using inhaler twice a day as needed 06/04 - 03/08 Roberto Carlos Ramsey MD Breo Ellipta 100-25 mcg/dose blister with device completed Inhale 1 puff as directed twice a day as needed 06/04 - 06/28 Peyton Barrientos RN cyanocobalamin (vitamin B-12) 1,000 mcg/mL solution completed ADMINISTER 1 ML UNDER THE SKIN EVERY WEEK IN THE MORNING - 02/25 Carley Wynn NP metformin 500 mg tablet extended release 24 hr completed - 02/25 Carley Wynn NP oxybutynin chloride 10 mg tablet extended release 24hr active Take 1 tablet by mouth once a day 11/23 Nia Herrmann #90, 90 days supply, Prescribed by ÓSCAR JAMES, Filled 12/18/2020 rosuvastatin 10 mg tablet active Take 1 tablet by mouth once a day 04/18 Carley Wynn GEOTHERMAL SYSTEM INSTALLER #90, 90 days supply, Prescribed by JUS MEJIA, Filled 12/24/2020 ergocalciferol (vitamin D2) 1,250 mcg (50,000 unit) capsule completed Take 1 capsule by mouth once a week 03/28 - 11/15 Nia Herrmann #4, 28 days supply, Prescribed by SUE MCCANN, Filled 01/18/2021 trazodone 100 mg tablet completed Take 1 tablet by mouth every night 02/19 - 02/25 Carley Wynn GEOTHERMAL SYSTEM INSTALLER #30, 30 days supply, Prescribed by CARLEY HOPKINS, Filled 02/19/2021 FeroSul 325 mg (65 mg iron) tablet completed Take 1 tablet by mouth twice a day 02/23 - 02/25 Carley Wynn GEOTHERMAL SYSTEM INSTALLER #60, 30 days supply, Prescribed by XAVI MCCLURE, Filled 02/23/2021 hydrocodone-acetami nophen 10-325 mg tablet active Take 1 tablet by mouth three times a day as needed 02/20 Nia Herrmann #90, 30 days supply, Prescribed by XAVI MCCLURE, Filled 02/24/2021 fluoxetine 20 mg tablet completed Take 1 tablet by mouth every morning 01/13 - 02/25 Carley Wynn [employer] SYSTEM INSTALLER #30, 30 days supply, Prescribed by CARLEY HOPKINS, Filled 03/03/2021 MAGNESIUM OXIDE 400 MG ORAL TABLET completed ONE TAB TWICE A DAY - 06/10 Nia Herrmann hydrochlorothiazide 25 mg tablet completed Take 1 tablet by mouth once a day - 02/25 Carley Wynn NP HYDRALAZINE HCL 50 MG ORAL TABLET completed take 1 tab two times a day 12/22 - 03/13 Tatheresa Al COREG 3.125 MG ORAL TABLET completed ONE TAB. TWICE DAILY 12/22 - 12/22 Roberto Carlos Ramsye MD PERCOCET TABLET completed as directed 11/23 - 8 Nia Herrmann VENTOLIN HFA 108 (90 BASE) MCG/ACT INHALATION AEROSOL SOLUTION completed One puff twice a day. 03/25 - 8 Nia Herrmann LISINOPRIL 10 MG ORAL TABLET completed one tablet at bedtime 03/25 - 8 Jessie Sujatha PERCOCET 10-325 MG ORAL TABLET completed take one tablet every 6 hours as needed for pain 12/09 - 8 Nia Herrmann REMERON SOLTAB 15 MG ORAL TABLET DISINTEGRATING completed take one pill a day 12/09 - 8 Nia Herrmann AMLODIPINE BESYLATE 2.5 MG ORAL TABLET completed take one pill a day 12/09 - 8 Jessie Solares GABAPENTIN 300 MG ORAL CAPSULE completed take one pill twice a day 12/09 - 8 Nia Herrmann PRIMIDONE 50 MG ORAL TABLET completed take one pill twice a day 12/09 - 8 Nia Herrmann VANCOMYCIN HCL SOLR completed 1500mg every 24 hrs - 8 Nia Herrmann TRAZODONE HCL 50 MG ORAL TABLET completed one tab at bedtime - 8 Nia Herrmann ALPRAZOLAM 0.5 MG ORAL TABLET completed one tab every 4 hrs as needed - 8 Nia Herrmann CHOLECALCIFEROL completed 5000 units daily - 8 Nia Herrmann CLINDAMYCIN HCL 300 MG ORAL CAPSULE completed three times daily - 8 Nia Herrmann LEVAQUIN 500 MG ORAL TABLET completed one tab daily - 06/10 Nia Herrmann AMLODIPINE BESYLATE 2.5 MG ORAL TABLET completed one tab daily - 06/10 Nia Herrmann VALIUM 5 MG ORAL TABLET completed One tablet every 12 hours as needed for severe anxiety and/or insomnia - Dustin Zarco RN GABAPENTIN 300 MG ORAL CAPSULE completed 1 tab in the am and at noon, 2 tabs in the evening - Dustin Zarco RN HYDROCODONE-ACETAMI NOPHEN 10-325 MG ORAL TABLET completed One tablet every 6 hours as needed for pain 11/24 - 06/10 Nia Herrmann RANITIDINE HCL 150 MG ORAL TABLET completed ONE TAB TWICE DAILY - 06/10 Nia Herrmann levothyroxine 88 mcg tablet active 1 tablet once a day Carley Wynn NP PROZAC 60 MG ORAL CAPSULE (FLUOXETINE HCL) completed 1 tab daily - 06/10 Nia Herrmann ASPIRIN 81 MG ORAL TABLET completed ONE TAB. DAILY - 06/10 Nia Herrmann ATORVASTATIN CALCIUM 80 MG ORAL TABLET completed take one daily 02/09 - 06/10 Nia Herrmann LISINOPRIL 20 MG ORAL TABLET completed twice daily - 06/10 Nia Herrmann VITAMIN D (ERGOCALCIFEROL) 73546 UNIT ORAL CAPSULE completed once a week - 06/10 Geraldine Torres SOCIAL HISTORY Date Observation Value Provider alcohol use no Jason Bruno smoking, year quit 2018 Jason Diaz atty number of years as a smoker 50 a Jason Bruno smoking history, tot al pack/day 1 ppd Jason Bruno cigarette use yes Jason Bruno smoking status Former smoker Jason baker alcohol use no Jason Bruno smoking, year quit 2018 Jason Diaz atty number of years as a smoker 50 a Jason Bruno smoking history, tot al pack/day 1 ppd Jason Bruno cigarette use yes Jason Bruno smoking status Former smoker Jason baker social history E&M S moking History: Justin nava is a former smoker. Cedric Valdez social history reviewed E&M revi ewed - no changes required Cedric Valdez smoking, year quit 2018 Nanci Will iams number of years as a smoker 50 a Nanci Gene smoking history, tot al pack/day 1 ppd Nanci Gene cigarette use yes Nanci Gene smoking status Former smoker Nanciana Ramirez s smoking, year quit 2018 Blue Gru enenfelder number of years as a smoker 50 a Blue Gruenestanelder smoking history, tot al pack/day 1 ppd Blue Gruenenfelder cigarette use yes Blue Gruenestan elder smoking status Former smoker Blue Grnedrane nfelder social history reviewed E&M revi ewed - no changes required Blue Gruenenfelder smoking, year quit 2018 Nia Gru enenfelder number of years as a smoker 50 a Nia Gruenenfelder smoking history, tot al pack/day 1 ppd Nia Gruenenfelder cigarette use yes Nia Gruenenf elder smoking status Former smoker Nia Grnedrane nfelder smoking, year quit 2018 Carley Wynn [employer] SYSTEM INST[employer]ER number of years as a smoker 50 a Carley Wynn NP smoking status Former smoker Carley queen [employer] SYSTEM INSTALLER smoking history, tot al pack/day 1 ppd Carley Wynn [employer]OTHER[employer] SYSTEM INSTALLER cigarette use yes Carley Lilly velarde [employer]OTHER[employer]AL SYSTEM INSTALLER social history E&M S moking History: Justin nava is a former smoker. Cedric Valdez social history reviewed E&M revi ewed - no changes required Cedric Daniels smoking, year quit 2018 Marti Thapa number of years as a smoker 50 a Marti Thapa smoking history, tot al pack/day 1 ppd Marti Thapa cigarette use yes Marti Serna nd smoking status Former smoker Marti cardona social history E&M S moking History: Justin nava is a former smoker. [facility] social history reviewed E&M revi ewed - no changes required [facility], year quit 2018 Nia Ridleyjez vidal number of years as a smoker 50 a Nia Montez smoking history, tot al pack/day 1 ppd Nia Montez cigarette use yes Nia Francis elder smoking status Former smoker Nia Tennillenicolle pierceelder smoking, year quit 2018 Nia Khaijez entrinityfeld number of years as a smoker 50 a Nia Montez smoking history, tot al pack/day 1 ppd Nia Montez cigarette use yes Nia Tito elder smoking status Former smoker Nia Tennillene nfelder smoking, year quit 2018 Nia Gru entrinityfeldprachi number of years as a smoker 50 a Nia Oliviadinoer smoking history, tot al pack/day 1 ppd Nia Montez cigarette use yes Nia Tito elder smoking status Former smoker Nia Khainedrane nfelder social history reviewed E&M revi ewed - no changes required Penny Melendez social history E&M S moking History: Justin nava is a former smoker. Penny Melendez number of years as a smoker 50 a Nia Herrmann smoking history, tot al pack/day 1 ppd Nia Herrmann smoking, year quit 2019 Nia vidal cigarette use yes Nia lee smoking status Former smoker Nia pierceelder social history reviewed E&M revi ewed - no changes required Juan Greenberg social history reviewed E&M revi ewed - no changes required Tyrell Berumen social history E&M S moking History: Justin nava currently smokes every day. P elijah has been counseled to quit. Tyrell Berumen smoking/tobacco cess ation, patient education and counseling yes Jessie Sujatha alcohol use no Jessie Sujatha cigarette use yes Jessie Sujatha smoking status Current every day smoker D acia Sujatha social history reviewed E&M revi ewed - no changes required Tyrell Berumen social history E&M S moking History: Justin nava currently smokes every day. P atcorinne has been counseled to quit. Tyrell Berumen smoking/tobacco cess ation, patient education and counseling yes Tomás Matthews alcohol use no Tomás Matthews cigarette use yes [place] Matthews smoking status Current every day smoker K tiara Matthews smoking status Current every day smoker Dee Dee Ramsey MD social history E&M S moking History: Justin nava currently is a light smoker. P atcorinne has been counseled to quit. Roberto Carlos Ramsey MD social history reviewed E&M revi ewed - no changes required Roberto Carlos Ramsey MD smoking/tobacco cess ation, patient education and counseling yes Geraldine Torres alcohol use no Geraldine Nowak susannahguzman cigarette use yes Geraldine loyaguzman social history E&M S moking History: P atient currently is a light smoker. P atient has been counseled to quit. Roberto Carlos Ramsey MD social history reviewed E&M revi ewed - no changes required Roberto Carlos Ramsey MD smoking/tobacco cess ation, patient education and counseling yes Niaderian Herrmann alcohol use no Nia jim cigarette use yes Nia lee smoking status Light tobacco smoker Nia Montez social history E&M S moking History: P atient currently is a light smoker. P atient has been counseled to quit. Roberto Carlos Ramsey MD smoking/tobacco cess ation, patient education and counseling yes Swathi Stevens social history reviewed E&M revi ewed - no changes required Swathi Stevens alcohol use no Jessie Sujatha cigarette use yes Jessie Sujatha smoking status Light tobacco smoker Jessie Sujatha social history reviewed E&M revi ewed - no changes required Armani Valencia alcohol use no Nia Akash greener cigarette use yes Nia lee smoking status Former smoker [facility] social history reviewed E&M revi ewed - no changes required Roberto Carlos Ramsey MD alcohol use no Nia Akash greener cigarette use yes Nia lee smoking status Former smoker Nia Baker nfjesus smoking status Former smoker Roberto Carlos pierce MD social history reviewed E&M revi ewed - no changes required Roberto Carlos Ramsey MD alcohol use no Geraldine Nowak nsguzman cigarette use yes Geraldine mahan number of grandchildren Roberto Carlos Ramsey MD social history E&M Smoking Histo ry: Justin nava is a former smoker. Roberto Carlos Ramsey MD social history reviewed E&M revi ewed - no changes required Roberto Carlos Ramsey MD alcohol use no Nia Ridleytd lder cigarette use yes Nia Nullmateus elder smoking status Former smoker Nia Baker nfelder social history reviewed E&M revi ewed - no changes required Faisal Carlos MD social history E&M Smoking Histo ry: Patient is a former smoker. Faisal Carlos MD cigarette use yes Ysabel Jr smoking status Former smoker Ysabel Acosta doris cigarette use yes Ysabel Jr smoking status Former smoker Ysabel Loveana nn social history reviewed E&M revi ewed - no changes required Faisal Carlos MD social history E&M Smoking Histo ry: Justin nava is a former smoker. 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 [id number] HEALTHCARE AND FAMILY SERVICES Medicaid 1 [id number] ADVANCE DIRECTIVES Name Date DISCUSSED - NO DECISION MADE TREATMENT PLAN Date Name Performer [id number],C,w ill check PFT w ill send in breo inhaler for now Cedric Valdez [id number],C,s ays she has persistent fatigue and it has been affecting her routine life w ill check PFT h er Cath showed mild CAD s he has diastolic dysfunction Cedric Valdez [id number],C,c ath 04/2023 F INAL RESULTS: T he left main was normal T he left anterior descending was a moderate sized vessel 20% proximal and 30 % fistal stenosis T he left circumflex was a small vessel . somewhat tortous and had a 30% proximal stenosis T he right coronary artery was the dominat vessel with mild diffuse disease 30 % mid and 30% distal stenosis T he left ventriculogram showed EF of 60%, Normal LV function A O:145/75 LV: 140/23 There was no aortic stenosis detected on pullback. A SSESSMENT: 1 . Mild CAD involving all three vessels 2 . Normal LV function with increased LVEDP consistent with diastolic dysfunction Cedricbruno Daniels [id number],C, c arotids: 07/15/22 Mild plaque with less than 50% stenosis of the internal carotid arteries bilaterally. Vertebral flow is antegrade bilaterally. Cedric Daniels [id number],C, B P today: 140/64 P rior BP: 130/80 (07/06/2023) Labs Reviewed: C reat: 2.02 (02/16/2020) C hol: 156 (02/16/2020) HDL: 66 (02/16/2020) Cedricbruno Daniels [id number],C,will check PF T Cedricbruno Daniels [id number],C, N o recurrent episodes of chest pain [facility] [id number],C,moderate Adam porfirio Nalluri [employer]OTHER[employer] SYSTEM INSTALLER [id number],C, P FTs: minimal obstructive airways disease and significant decrease in FEV1 when compared to previous study. 6 minute walk test: ambulated 6 minutes. O2 sats 95-96% on room air. H as appointment with explosives engineer Zuly Knappri [employer]OTHER[employer] SYSTEM INSTALLER [id number],C,N o recurrent episodes of chest pain Zuly Ariluri [employer]OTHERMAL SYSTEM INSTALLER [id number],C, B P today: 130/80 P rior BP: 160/80 (05/04/2023) H er updated medication list for this problem includes: Amlodipine 5 Mg Tablet (Amlodipine) ..... Take 1 tablet by mouth once a day Hydralazine 50 Mg Tablet (Hydralazine) ..... Take 1 tablet by mouth three times a day Zuly Ariluri [employer]OTHERMAL SYSTEM INSTALLER [id number],C, n ot compliant with cpap Zuly Chapmanluri [employer]OTHERMAL SYSTEM INSTALLER [id number],C, h as been in contact with [facility] to have weight loss surgery. started on ozempic yesterady Zuly Ariluri GEOTHERMAL SYSTEM INSTALLER [id number],C, T race bilateral leg edema. on lasix 20 mg Po Zuly Ariluri GEOTHERMAL SYSTEM INSTALLER [id number],C, c arotids: 07/15/22 Mild plaque with less than 50% stenosis of the internal carotid arteries bilaterally. Vertebral flow is antegrade bilaterally. Zuly Ariluri GEOTHERMAL SYSTEM INSTALLER [id number],C, H er updated medication list for this problem includes: Levothyroxine 88 Mcg Tablet (Levothyroxine) ..... 1 tablet once a day Zluy Ariluri GEOTHERMAL SYSTEM INSTALLER [id number],C,Will order 2 week tele monitor Zuly Nalluri [employer]OTHERMAL SYSTEM INSTALLER [id number],C, S uggested patient lose more weight. BP today: 160/80 P rior BP: 126/80 (03/11/2023) Labs Reviewed: C reat: 1.84 (04/19/2023) C hol: 159 (04/19/2023) HDL: 53 (04/19/2023) Her updated medication list for this problem includes: Hydralazine 50 Mg Tablet (Hydralazine) ..... Take 1 tablet by mouth three times a day Amlodipine 5 Mg Tablet (Amlodipine) ..... Take 1 tablet by mouth once a day Roberto Carlos Ramsey MD [id number],C,l ab tests from 04/19/23 showed creatinine of 1.86 and BUN of 29 Roberto Carlos Ramsey MD [id number],W, H as mild bilateral leg edema. Blue Herrmann [id number],C, Blue serrato [id number],C, S uggested patient lose more weight. BP today: 160/80 P rior BP: 126/80 (03/11/2023) Labs Reviewed: C reat: 1.84 (04/19/2023) C hol: 159 (04/19/2023) HDL: 53 (04/19/2023) Her updated medication list for this problem includes: Hydralazine 50 Mg Tablet (Hydralazine) ..... Take 1 tablet by mouth three times a day Amlodipine 5 Mg Tablet (Amlodipine) ..... Take 1 tablet by mouth once a day Blue Herrmann [id number],S,l ab tests from 04/19/23 showed creatinine of 1.86 and BUN of 29 Blue Herrmann [id number],S, P FTs: minimal obstructive airways disease and significant decrease in FEV1 when compared to previous study. 6 minute walk test: ambulated 6 minutes. O2 sats 95-96% on room air. H er updated medication list for this problem includes: Albuterol Sulfate 90 Mcg/actuation Hfa Aerosol Inhaler (Albuterol sulfate) ..... Inhale 1 puff using inhaler three times a day as needed Blue Herrmann [id number],S, C ontinues to feel fatigued. Blue Herrmann [id number],N, Roberto Carlos pierce MD [id number],W, H er updated medication list for this problem includes: Amlodipine 5 Mg Tablet (Amlodipine) ..... Take 1 tablet by mouth once a day Isosorbide Mononitrate 30 Mg Tablet Extended Release 24 Hr (Isosorbide mononitrate) ..... Take 1 tablet by mouth every day Nitroglycerin 0.4 Mg Tablet, Sublingual (Nitroglycerin) ..... Place 1 tab under tongue every 5 min as needed for chest pain (max 3 doses).if no relief after 3rd dose go to er Roberto Carlos Ramsey MD [id number],C,e cho today C ONCLUSIONS: 1 . Technically difficult study, secondary to poor acoustic windows. Normal left ventricular systolic function. Normal left v entricular size. Mild concentric left ventricular hypertrophy. There is E to A wave reversal consistent with impaired LV r elaxation. E/E': 15.5 Left ventricular ejection fraction is measured at 66 %. 2 . Moderate aortic stenosis. Moderate aortic valve regurgitation. Peak AV velocity: 3.28 m/s The Aortic Valve Peak Gradient i s 42.91 mmHg The Aortic Valve Mean Gradient is 19.91 mmHg. 3 . Normal aortic root size. Moderate aortic wall calcification. Carley Wynn NP [id number],C, stress test - will await for results ECHO CONCLUSIONS: 1 . Technically difficult study, secondary to poor acoustic windows. Normal left ventricular systolic function. Normal left v entricular size. Mild concentric left ventricular hypertrophy. There is E to A wave reversal consistent with impaired LV r elaxation. E/E': 15.5 Left ventricular ejection fraction is measured at 66 %. 2 . Moderate aortic stenosis. Moderate aortic valve regurgitation. Peak AV velocity: 3.28 m/s The Aortic Valve Peak Gradient i s 42.91 mmHg The Aortic Valve Mean Gradient is 19.91 mmHg. 3 . Normal aortic root size. Moderate aortic wall calcification. no recurrence of CP. continues to experience SOB/HOWELL and fatigue Carley Wynn NP [id number],C,compliant wit h cpap Carley Wynn GEOTHERMAL SYSTEM INSTALLER [id number],C, B P today: 126/80 P rior BP: 140/58 (02/25/2023) Labs Reviewed: C reat: 2.02 (02/16/2020) C hol: 156 (02/16/2020) HDL: 66 (02/16/2020) Her updated medication list for this problem includes: Hydralazine 50 Mg Tablet (Hydralazine) ..... Take 1 tablet by mouth three times a day Amlodipine 5 Mg Tablet (Amlodipine) ..... Take 1 tablet by mouth once a day [facility] [id number],Cchristina nephrology [facility] [id number],C,on supplement ation. [facility] [id number],C,c arotids: 07/15/22 Mild plaque with less than 50% stenosis of the internal carotid arteries bilaterally. Vertebral flow is antegrade bilaterally. checking nuclear stress test. unable to walk on treadmill d/t back, hip and knee pain. [facility] [id number],C, B P today: 140/58 P rior BP: 114/61 (08/27/2022) Labs Reviewed: C reat: 2.02 (02/16/2020) C hol: 156 (02/16/2020) HDL: 66 (02/16/2020) The following medications were removed from the medication list: Hydrochlorothiazide 25 Mg Tablet (Hydrochlorothiazide) ..... Take 1 tablet by mouth once a day Her updated medication list for this problem includes: Amlodipine 5 Mg Tablet (Amlodipine) ..... Take 1 tablet by mouth once a day [facility] [id number],C,. Pt reports that a couple of days ago she has been experiencing intermittent CP, described as a pressure, that can come and stay all day, non-radiating, with associated SOB, HOWELL, but denies any palpitations, dizziness, nausea or vomiting. pt states that that it has been occuring every day. pt states that its hard to describe. currently complaints of CP that that is reproducible. no other complaints at present. will check echo and nuclear stress test. pt is unable to walk on treadmill d/t back, hip and knee pain imdur added and prn SL NTG Carley Wynn NP [id number],C, Roberto Carlos pierce MD [id number],S, H er updated medication list for this problem includes: Hydrochlorothiazide 25 Mg Tablet (Hydrochlorothiazide) ..... Take 1 tablet by mouth once a day Amlodipine 10 Mg Tablet (Amlodipine) ..... Take 1 tablet by mouth once a day Orders: T obacco cessation counseling, 3-10minutes (15787) Roberto Carlos Ramsey MD [id number],C, Roberto Carlos pierce MD [id number],C, O rders: E KG (CPT-30750) Roberto Carlos Ramsey MD [id number],C,C ontinues to be SOB and currently does not know if she needs supplemental O2. I will start her on Albuterol inhaler and Breo ellipta inhaler and see how she does. Will check PFTs and 6 minute walk test . O rders: 9 9215 HIGH 40-54min (CPT-36702) C arotid Duplex Bilateral (CPT-29104) F VC - 01718 (81277) F RC - 44886 (51711) D LCO - 33691 (78869) 6 minute walk test (CPT-55580) Her updated medication list for this problem includes: Amlodipine 10 Mg Tablet (Amlodipine) ..... Take 1 tablet by mouth once a day Hydrochlorothiazide 25 Mg Tablet (Hydrochlorothiazide) ..... 1 tablet by mouth once a day Cedric Valdez [id number],S, O rders: 9 9215 HIGH 40-54min (CPT-01852) C arotid Duplex Bilateral (CPT-81802) F VC - 30507 (83969) F RC - 87677 (22915) D LCO - 85437 (13996) 6 minute walk test (CPT-12870) Cedric Valdez [id number],C, P FTs: minimal obstructive airways disease and significant decrease in FEV1 when compared to previous study. 6 minute walk test: ambulated 6 minutes. O2 sats 95-96% on room air. Will repeat her PFTs and start her on inahler regimen. Her updated medication list for this problem includes: Albuterol Sulfate 90 Mcg/actuation Hfa Aerosol Inhaler (Albuterol sulfate) ..... Inhale 2 puff using inhaler twice a day as needed Breo Ellipta 100-25 Mcg/dose Blister With Device (Fluticasone furoate-vilanterol) ..... Inhale 1 puff as directed twice a day as needed Orders: 9 9215 HIGH 40-54min (CPT-65727) C arotid Duplex Bilateral (CPT-93795) F VC - 17028 (71575) F RC - 91735 (19271) D LCO - 04222 (62486) 6 minute walk test (CPT-31035) Cedric Valdez [id number],C,A dvised to cut back salt intake. Will start her on Amlodipine 10 mg and see how she does. Will check carotid duplex as she has mild carotid bruits. BP today: 191/80 P rior BP: 110/70 (03/05/2022) Labs Reviewed: C reat: 2.02 (02/16/2020) C hol: 156 (02/16/2020) HDL: 66 (02/16/2020) Orders: 9 9215 HIGH 40-54min (CPT-97716) C arotid Duplex Bilateral (CPT-01703) F VC - 72911 (58041) F RC - 30174 (81921) D LCO - 90816 (06562) 6 minute walk test (CPT-15826) Her updated medication list for this problem includes: Amlodipine 10 Mg Tablet (Amlodipine) ..... Take 1 tablet by mouth once a day Hydrochlorothiazide 25 Mg Tablet (Hydrochlorothiazide) ..... 1 tablet by mouth once a day Cedric Valdez [id number],S, O rders: 9 9215 HIGH 40-54min (CPT-08862) C arotid Duplex Bilateral (CPT-05428) F VC - 65432 (81654) F RC - 75593 (71145) D LCO - 44746 (42006) 6 minute walk test (CPT-88959) Cedric Valdez [id number],C,H ad telemetry one week: 2 second episode of NSVT. Staci Diaz HUNG [id number],S,T he patient is using CPAP on a regular basis. The patient has been benefiting from therapy and should continue use. Staci Joe PERSAUD [id number],S, H er updated medication list for this problem includes: Hydrochlorothiazide 25 Mg Tablet (Hydrochlorothiazide) ..... 1 tablet by mouth once a day Staci Diaz HUNG [id number],S,e cho shows mild to moderate AVR. Next echo in one year. Staci Diaz HUNG [id number],S,P FTs: minimal obstructive airways disease and significant decrease in FEV1 when compared to previous study. 6 minute walk test: ambulated 6 minutes. O2 sats 95-96% on room air. Staci Diaz HUNG [id number],S, O rders: F VC - 46916 (21438) F RC - 77417 (21173) D LCO - 87028 (67657) 6 minute walk test (CPT-58715) C OMPREHENSIVE METABOLIC PANEL, W/EGFR (59666) C BC (INCLUDES DIFF/PLT) (6399) L IPID PANEL (7600) H EMOGLOBIN A1c (496) B TYPE NATRIURETIC PEPTIDE (BNP) (15097) P ROBNP, N TERMINAL (24453) M onitor - Telemetry (Mobile Cardiac) (CPT-39584) Roberto Carlos Ramsey MD [id number],S,c [place] PFTs O rders: F VC - 24996 (10881) F RC - 89298 (91624) D LCO - 49671 (56391) 6 minute walk test (CPT-70637) C OMPREHENSIVE METABOLIC PANEL, W/EGFR (72420) CBC (INCLUDES DIFF/PLT) (6399) L IPID PANEL (7600) H EMOGLOBIN A1c (496) B TYPE NATRIURETIC PEPTIDE (BNP) (26419) P ROBNP, N TERMINAL (60782) M onitor - Telemetry (Mobile Cardiac) (CPT-12058) Roberto Carlos Ramsey MD [id number],S, O rders: C omplete Echo (CPT-23737) 6 minute walk test (CPT-62540) C OMPREHENSIVE METABOLIC PANEL, W/EGFR (29031) C BC (INCLUDES DIFF/PLT) (6399) L IPID PANEL (7600) H EMOGLOBIN A1c (496) B TYPE NATRIURETIC PEPTIDE (BNP) (70474) P ROBNP, N TERMINAL (03097) M onitor - Telemetry (Mobile Cardiac) (CPT-69703) 9 9213 LTD 20-29min (CPT-76145) Roberto Carlos Ramsey MD [id number],C, O rders: C omplete Echo (CPT-37722) F VC - 19279 (97730) F RC - 14236 (89554) D LCO - 57817 (94474) 6 minute walk test (CPT-87710) C OMPREHENSIVE METABOLIC PANEL, W/EGFR (10257) C BC (INCLUDES DIFF/PLT) (6399) L IPID PANEL (7600) H EMOGLOBIN A1c (496) B TYPE NATRIURETIC PEPTIDE (BNP) (01424) P ROBNP, N TERMINAL (50146) M onitor - Telemetry (Mobile Cardiac) (CPT-82281) 9 9213 LTD 20-29min (CPT-03275) Roberto Carlos Ramsey MD [id number],W,w ill check echo, PFTs, 6 minute walk test, labs. H er updated medication list for this problem includes: Hydrochlorothiazide 25 Mg Tablet (Hydrochlorothiazide) ..... 1 tablet by mouth once a day Orders: C omplete Echo (CPT-56483) 6 minute walk test (CPT-64279) C OMPREHENSIVE METABOLIC PANEL, W/EGFR (13455) C BC (INCLUDES DIFF/PLT) (6399) L IPID PANEL (7600) H EMOGLOBIN A1c (496) B TYPE NATRIURETIC PEPTIDE (BNP) (87998) P ROBNP, N TERMINAL (39096) M onitor - Telemetry (Mobile Cardiac) (CPT-99763) Roberto Carlos Ramsey MD [id number],W,w ill check echo, PFTs, 6 minute walk test, labs. Staci Diaz NP [id number],S,check PFTs maribell Diaz NP [id number],S, Staci andrew NP [id number],S,T he patient is using CPAP on a regular basis. The patient has been benefiting from therapy and should continue use. Staci Diaz NP [id number],W,m od AR per last echo. Will recheck echo Staci Diaz NP [id number],W,h as been in contact with [facility] to have weight loss surgery. Staci Diaz NP Electrophysiology: p er nephro Jason Bruno Electrophysiology:Th e patient is using CPAP on a regular basis. The patient has been benefiting from therapy and should continue use. Jason Bruno Electrophysiology:Continue medic al therapy Jason Bruno Electrophysiology:Ca rotids <50% b/l ICA Jason Bruno Electrophysiology: H er updated medication list for this problem includes: Amlodipine 5 Mg Tablet (Amlodipine) ..... Take 1 tablet by mouth once a day Furosemide 20 Mg Tablet (Furosemide) ..... Take 1 tablet by mouth daily Hydralazine 50 Mg Tablet (Hydralazine) ..... Take 1 tablet by mouth three times a day BP today: 126/72 P rior BP: 122/80 (11/11/2023) Labs Reviewed: C reat: 2.02 (02/16/2020) C hol: 156 (02/16/2020) HDL: 66 (02/16/2020) LDL: 73 (02/16/2020) T (02/16/2020) Jason Salomonty Electrophysiology:He r sob has been chronic for her. her nuclear stress test was abnormal in 2022 and then pecipitated a cardiac cath to be performed which showed no obstructive CAD. Continue medical therapy. T his sob is multifactorial, likely contributed to by her obesity, htn E ducated on weight loss through dietary restrictions and maintaining a caloric deficit H er updated medication list for this problem includes: Amlodipine 5 Mg Tablet (Amlodipine) ..... Take 1 tablet by mouth once a day Furosemide 20 Mg Tablet (Furosemide) ..... Take 1 tablet by mouth daily [facility] Electrophysiology [facility] Electrophysiology:per nephro Tho [facility] Electrophysiology:stable [facility] Electrophysiology:below baseline [facility] Electrophysiology: T race bilateral leg edema. on lasix 20 mg Po J anuary 2023 r ecommend continued use of lasix, i have instructed the patient to take additional dose if needed for swelling [facility] Electrophysiology:check carpotid study [facility] Electrophysiology:[facility] low dost lung CT given Hx of tobacco abuse. m ild COPD on latest PFTS m inimal diffusion defect on latest PFTs s he states there is minimal benefit from inhalers Jason Treichlers Electrophysiology:Th e patient is using CPAP on a regular basis. The patient has been benefiting from therapy and should continue use. Jason Bruno Electrophysiology:wi ll check PFT w ill send in breo inhaler for now Cedric Millardshaquille Electrophysiology:sa ys she has persistent fatigue and it has been affecting her routine life w ill check PFT h er Cath showed mild CAD s he has diastolic dysfunction [facility] Elect[facility]:ca th 04/2023 F INAL RESULTS: T he left main was normal T he left anterior descending was a moderate sized vessel 20% proximal and 30 % fistal stenosis T he left circumflex was a small vessel . somewhat tortous and had a 30% proximal stenosis T he right coronary artery was the dominat vessel with mild diffuse disease 30 % mid and 30% distal stenosis T he left ventriculogram showed EF of 60%, Normal LV function A O:145/75 LV: 140/23 There was no aortic stenosis detected on pullback. A SSESSMENT: 1 . Mild CAD involving all three vessels 2 . Normal LV function with increased LVEDP consistent with diastolic dysfunction [facility] Electrophysiology: c arotids: 07/15/22 Mild plaque with less than 50% stenosis of the internal carotid arteries bilaterally. Vertebral flow is antegrade bilaterally. [facility]: B P today: 140/64 P rior BP: 130/80 (07/06/2023) Labs Reviewed: C reat: 2.02 (02/16/2020) C hol: 156 (02/16/2020) HDL: 66 (02/16/2020) [facility] Electrophysiology:will check PFT [facility] Electrophysiology: N o recurrent episodes of chest pain Cedric kimberly Electrophysiology:moderate Richard Silvestre NP Electrophysiology: P FTs: minimal obstructive airways disease and significant decrease in FEV1 when compared to previous study. 6 minute walk test: ambulated 6 minutes. O2 sats 95-96% on room air. H as appointment with explosives engineer Zuly Silvestre NP Electrophysiology:No recurrent e pisodes of chest pain Zuly Silvestre NP Electrophysiology: B P today: 130/80 P rior BP: 160/80 (05/04/2023) H er updated medication list for this problem includes: Amlodipine 5 Mg Tablet (Amlodipine) ..... Take 1 tablet by mouth once a day Hydralazine 50 Mg Tablet (Hydralazine) ..... Take 1 tablet by mouth three times a day Zuly Nalluri GEOTHERMAL SYSTEM INSTALLER Electrophysiology: n ot compliant with cpap Zuly Nalluri [employer]OTHERMAL SYSTEM INSTALLER Electrophysiology: h as been in contact with [facility] to have weight loss surgery. started on ozempic yesterady Zuly Nalluri [employer]OTHERMAL SYSTEM INSTALLER Electrophysiology: T race bilateral leg edema. on lasix 20 mg Po Zuly Nalluri GEOTHERMAL SYSTEM INSTALLER Electrophysiology: c arotids: 07/15/22 Mild plaque with less than 50% stenosis of the internal carotid arteries bilaterally. Vertebral flow is antegrade bilaterally. Zuly Nalluri GEOTHERMAL SYSTEM INSTALLER Electrophysiology: H er updated medication list for this problem includes: Levothyroxine 88 Mcg Tablet (Levothyroxine) ..... 1 tablet once a day Zuly Nalluri GEOTHERMAL SYSTEM INSTALLER Electrophysiology:Will order 2 w [place] tele monitor Zuly Nalluri GEOTHERMAL SYSTEM INSTALLER Electrophysiology - 3 month follow up with SK: S uggested patient lose more weight. BP today: 160/80 P rior BP: 126/80 (03/11/2023) Labs Reviewed: C reat: 1.84 (04/19/2023) C hol: 159 (04/19/2023) HDL: 53 (04/19/2023) Her updated medication list for this problem includes: Hydralazine 50 Mg Tablet (Hydralazine) ..... Take 1 tablet by mouth three times a day Amlodipine 5 Mg Tablet (Amlodipine) ..... Take 1 tablet by mouth once a day Roberto Carlos Ramsey MD Electrophysiology - 3 month follow up with SK:lab tests from 04/19/23 showed creatinine of 1.86 and BUN of 29 Roberto Carlos Ramsey MD Electrophysiology - 3 month follow up with SK: Silverio as mild bilateral leg edema. Blue Herrmann Electrophysiology - 3 month foll ow up with SK Blue Herrmann Electrophysiology - 3 month follow up with SK: S uggested patient lose more weight. BP today: 160/80 P rior BP: 126/80 (03/11/2023) Labs Reviewed: C reat: 1.84 (04/19/2023) C hol: 159 (04/19/2023) HDL: 53 (04/19/2023) Her updated medication list for this problem includes: Hydralazine 50 Mg Tablet (Hydralazine) ..... Take 1 tablet by mouth three times a day Amlodipine 5 Mg Tablet (Amlodipine) ..... Take 1 tablet by mouth once a day Blue Herrmann Electrophysiology - 3 month follow up with SK:lab tests from 04/19/23 showed creatinine of 1.86 and BUN of 29 Blue Herrmann Electrophysiology - 3 month follow up with SK: P FTs: minimal obstructive airways disease and significant decrease in FEV1 when compared to previous study. 6 minute walk test: ambulated 6 minutes. O2 sats 95-96% on room air. H er updated medication list for this problem includes: Albuterol Sulfate 90 Mcg/actuation Hfa Aerosol Inhaler (Albuterol sulfate) ..... Inhale 1 puff using inhaler three times a day as needed Blue Herrmann Electrophysiology - 3 month follow up with SK: Elaina serranoinues to feel fatigued. Blue Herrmann Telehealth - needs l eft hearty cath [facility] with Dr. Sonny Ramsey MD Telehealth - needs [facility] hearty cath [facility] with Dr. Dennis: H er updated medication list for this problem includes: Amlodipine 5 Mg Tablet (Amlodipine) ..... Take 1 tablet by mouth once a day Isosorbide Mononitrate 30 Mg Tablet Extended Release 24 Hr (Isosorbide mononitrate) ..... Take 1 tablet by mouth every day Nitroglycerin 0.4 Mg Tablet, Sublingual (Nitroglycerin) ..... Place 1 tab under tongue every 5 min as needed for chest pain (max 3 doses).if no relief after 3rd dose go to er Roberto Carlos Ramsey MD Electrophysiology:ec ho today C ONCLUSIONS: 1 . Technically difficult study, secondary to poor acoustic windows. Normal left ventricular systolic function. Normal left v entricular size. Mild concentric left ventricular hypertrophy. There is E to A wave reversal consistent with impaired LV r elaxation. E/E': 15.5 Left ventricular ejection fraction is measured at 66 %. 2 . Moderate aortic stenosis. Moderate aortic valve regurgitation. Peak AV velocity: 3.28 m/s The Aortic Valve Peak Gradient i s 42.91 mmHg The Aortic Valve Mean Gradient is 19.91 mmHg. 3 . Normal aortic root size. Moderate aortic wall calcification. Carley Wynn NP Electrophysiology:03/11 stress test - will await for results ECHO CONCLUSIONS: 1 . Technically difficult study, secondary to poor acoustic windows. Normal left ventricular systolic function. Normal left v entricular size. Mild concentric left ventricular hypertrophy. There is E to A wave reversal consistent with impaired LV r elaxation. E/E': 15.5 Left ventricular ejection fraction is measured at 66 %. 2 . Moderate aortic stenosis. Moderate aortic valve regurgitation. Peak AV velocity: 3.28 m/s The Aortic Valve Peak Gradient i s 42.91 mmHg The Aortic Valve Mean Gradient is 19.91 mmHg. 3 . Normal aortic root size. Moderate aortic wall calcification. no recurrence of CP. continues to experience SOB/HOWELL and fatigue Carley Wynn NP Electrophysiology:compliant with cpap Carley Wynn NP Electrophysiology: B P today: 126/80 P rior BP: 140/58 (02/25/2023) Labs Reviewed: C reat: 2.02 (02/16/2020) C hol: 156 (02/16/2020) HDL: 66 (02/16/2020) Her updated medication list for this problem includes: Hydralazine 50 Mg Tablet (Hydralazine) ..... Take 1 tablet by mouth three times a day Amlodipine 5 Mg Tablet (Amlodipine) ..... Take 1 tablet by mouth once a day Carley Wynn NP Electrophysiology:on noreen hendrickson nephrology Calrey Wynn NP Electrophysiology:on supplementa tion. Carley Wynn NP Electrophysiology:ca rotids: 07/15/22 Mild plaque with less than 50% stenosis of the internal carotid arteries bilaterally. Vertebral flow is antegrade bilaterally. checking nuclear stress test. unable to walk on treadmill d/t back, hip and knee pain. Carley Wynn NP Electrophysiology: B P today: 140/58 P rior BP: 114/61 (08/27/2022) Labs Reviewed: C reat: 2.02 (02/16/2020) C hol: 156 (02/16/2020) HDL: 66 (02/16/2020) The following medications were removed from the medication list: Hydrochlorothiazide 25 Mg Tablet (Hydrochlorothiazide) ..... Take 1 tablet by mouth once a day Her updated medication list for this problem includes: Amlodipine 5 Mg Tablet (Amlodipine) ..... Take 1 tablet by mouth once a day Carley Wynn NP Electrophysiology:. Pt reports that a couple of days ago she has been experiencing intermittent CP, described as a pressure, that can come and stay all day, non-radiating, with associated SOB, HOWELL, but denies any palpitations, dizziness, nausea or vomiting. pt states that that it has been occuring every day. pt states that its hard to describe. currently complaints of CP that that is reproducible. no other complaints at present. will check echo and nuclear stress test. pt is unable to walk on treadmill d/t back, hip and knee pain imdur added and prn SL NTG Carley Wynn NP Electrophysiology- Roberto Carlos garcia MD Electrophysiology-: H er updated medication list for this problem includes: Hydrochlorothiazide 25 Mg Tablet (Hydrochlorothiazide) ..... Take 1 tablet by mouth once a day Amlodipine 10 Mg Tablet (Amlodipine) ..... Take 1 tablet by mouth once a day Orders: T obacco cessation counseling, 3-10minutes (42321) Roberto Carlos Ramsey MD Electrophysiology- Roberto Carlos garcia MD Electrophysiology-: O rders: E KG (CPT-97696) Roberto Carlos Ramsey MD Electrophysiology:Co ntinues to be SOB and currently does not know if she needs supplemental O2. I will start her on Albuterol inhaler and Breo ellipta inhaler and see how she does. Will check PFTs and 6 minute walk test . O rders: 9 9215 HIGH 40-54min (CPT-33198) C arotid Duplex Bilateral (CPT-83441) F VC - 12286 (02915) F RC - 80926 (81229) D LCO - 15394 (73127) 6 minute walk test (CPT-28956) Her updated medication list for this problem includes: Amlodipine 10 Mg Tablet (Amlodipine) ..... Take 1 tablet by mouth once a day Hydrochlorothiazide 25 Mg Tablet (Hydrochlorothiazide) ..... 1 tablet by mouth once a day Roberto Carlos Ramsey MD Electrophysiology: O rders: 9 9215 HIGH 40-54min (CPT-31007) C arotid Duplex Bilateral (CPT-19775) F VC - 03635 (03135) F RC - 19524 (22093) D LCO - 34500 (75427) 6 minute walk test (CPT-66753) Roberto Carlos Ramsey MD Electrophysiology: P FTs: minimal obstructive airways disease and significant decrease in FEV1 when compared to previous study. 6 minute walk test: ambulated 6 minutes. O2 sats 95-96% on room air. Will repeat her PFTs and start her on inahler regimen. Her updated medication list for this problem includes: Albuterol Sulfate 90 Mcg/actuation Hfa Aerosol Inhaler (Albuterol sulfate) ..... Inhale 2 puff using inhaler twice a day as needed Breo Ellipta 100-25 Mcg/dose Blister With Device (Fluticasone furoate-vilanterol) ..... Inhale 1 puff as directed twice a day as needed Orders: 9 9215 HIGH 40-54min (CPT-85105) C arotid Duplex Bilateral (CPT-14317) F VC - 30104 (95407) F RC - 03173 (57253) D LCO - 19260 (10495) 6 minute walk test (CPT-51997) Roberto Carlos Ramsey MD Electrophysiology:Ad vised to cut back salt intake. Will start her on Amlodipine 10 mg and see how she does. Will check carotid duplex as she has mild carotid bruits. BP today: 191/80 P rior BP: 110/70 (03/05/2022) Labs Reviewed: C reat: 2.02 (02/16/2020) C hol: 156 (02/16/2020) HDL: 66 (02/16/2020) Orders: 9 9215 HIGH 40-54min (CPT-75717) C arotid Duplex Bilateral (CPT-34330) F VC - 33285 (06781) F RC - 78926 (27551) D LCO - 36055 (68019) 6 minute walk test (CPT-76492) Her updated medication list for this problem includes: Amlodipine 10 Mg Tablet (Amlodipine) ..... Take 1 tablet by mouth once a day Hydrochlorothiazide 25 Mg Tablet (Hydrochlorothiazide) ..... 1 tablet by mouth once a day Roberto Carlos Ramsey MD Electrophysiology: O rders: 9 9215 HIGH 40-54min (CPT-55789) C arotid Duplex Bilateral (CPT-49491) F VC - 12507 (83176) F RC - 97764 (60355) D LCO - 86806 (50894) 6 minute walk test (CPT-80568) Roberto Carlos Ramsey MD Electrophysiology:Hamm d telemetry one week: 2 second episode of NSVT. Staci Diaz NP Electrophysiology:Th e patient is using CPAP on a regular basis. The patient has been benefiting from therapy and should continue use. Staci Diaz NP Electrophysiology: H er updated medication list for this problem includes: Hydrochlorothiazide 25 Mg Tablet (Hydrochlorothiazide) ..... 1 tablet by mouth once a day Staci Diaz NP Electrophysiology:ec ho shows mild to moderate AVR. Next echo in one year. Staci Diaz NP Electrophysiology:PF Ts: minimal obstructive airways disease and significant decrease in FEV1 when compared to previous study. 6 minute walk test: ambulated 6 minutes. O2 sats 95-96% on room air. Staci Diaz NP Electrophysiology: O rders: F VC - 99408 (74478) F RC - 25729 (89107) D LCO - 86299 (61270) 6 minute walk test (CPT-38295) C OMPREHENSIVE METABOLIC PANEL, W/EGFR (62789) C BC (INCLUDES DIFF/PLT) (6399) L IPID PANEL (7600) H EMOGLOBIN A1c (496) B TYPE NATRIURETIC PEPTIDE (BNP) (37860) P ROBNP, N TERMINAL (33442) M onitor - Telemetry (Mobile Cardiac) (CPT-80326) Roberto Carlos Ramsey MD Electrophysiology:[facility] PFTs O rders: F VC - 03635 (90304) F RC - 05190 (65407) D LCO - 04207 (54060) 6 minute walk test (CPT-68322) C OMPREHENSIVE METABOLIC PANEL, W/EGFR (72156) CBC (INCLUDES DIFF/PLT) (6399) L IPID PANEL (7600) H EMOGLOBIN A1c (496) B TYPE NATRIURETIC PEPTIDE (BNP) (99540) P ROBNP, N TERMINAL (39751) M onitor - Telemetry (Mobile Cardiac) (CPT-96705) Roberto Carlos Ramsey MD Electrophysiology: O rders: C omplete Echo (CPT-16528) 6 minute walk test (CPT-51162) C OMPREHENSIVE METABOLIC PANEL, W/EGFR (96304) C BC (INCLUDES DIFF/PLT) (6399) L IPID PANEL (7600) H EMOGLOBIN A1c (496) B TYPE NATRIURETIC PEPTIDE (BNP) (15389) P ROBNP, N TERMINAL (56802) M onitor - Telemetry (Mobile Cardiac) (CPT-16736) 9 9213 LTD 20-29min (CPT-33144) Roberto Carlos Ramsey MD Electrophysiology: O rders: C omplete Echo (CPT-00718) F VC - 18154 (85342) F RC - 57287 (94397) D LCO - 09827 (42207) 6 minute walk test (CPT-06663) C OMPREHENSIVE METABOLIC PANEL, W/EGFR (56929) C BC (INCLUDES DIFF/PLT) (6399) L IPID PANEL (7600) H EMOGLOBIN A1c (496) B TYPE NATRIURETIC PEPTIDE (BNP) (70492) P ROBNP, N TERMINAL (99551) M onitor - Telemetry (Mobile Cardiac) (CPT-65831) 9 9213 LTD 20-29min (CPT-62409) Roberto Carlos Ramsey MD Electrophysiology:wi ll check echo, PFTs, 6 minute walk test, labs. H er updated medication list for this problem includes: Hydrochlorothiazide 25 Mg Tablet (Hydrochlorothiazide) ..... 1 tablet by mouth once a day Orders: C omplete Echo (CPT-25493) 6 minute walk test (CPT-29167) C OMPREHENSIVE METABOLIC PANEL, W/EGFR (42952) C BC (INCLUDES DIFF/PLT) (6399) L IPID PANEL (7600) H EMOGLOBIN A1c (496) B TYPE NATRIURETIC PEPTIDE (BNP) (79059) P ROBNP, N TERMINAL (77109) M onitor - Telemetry (Mobile Cardiac) (CPT-64966) Roberto Carlos Ramsey MD Electrophysiology:wi ll check echo, PFTs, 6 minute walk test, labs. Staci Diaz NP Electrophysiology:check PFTs Lary Diaz NP Electrophysiology Staci weber NP Electrophysiology:Th e patient is using CPAP on a regular basis. The patient has been benefiting from therapy and should continue use. Staic Diaz NP Electrophysiology:mo d AR per last echo. Will recheck echo Staci Diaz NP Electrophysiology:hamm s been in contact with [facility] to have weight loss surgery. Staci Diaz NP Electrophysiology Ho spital Follow up 14 : s /p DC PPM explantation 08/14/16 with extensive pocket revision due to bacteremia. Penny Melendez Electrophysiology Ho spital Follow up 14 : O rders: A rosemary Duplex Ultrasound (CPT-82198) The following medications were removed from the medication list: Aspirin 81 Mg Oral Tablet (Aspirin) ..... One tab. daily Penny Al Electrophysiology spital Follow up 14 :s/p DC PPM explantation 08/14/16 with extensive pocket revision due to bacteremia. Orders: M onitor - Telemetry (Mobile Cardiac) (CPT-49788) Angelitoguzman Al Electrophysiology spital Follow up 14 : O rders: E KG (CPT-66194) C omplete Echo (CPT-42271) Echo 02/2020 CONCLUSIONS: 1 . There is septal hypertrophy without outflow tract obstruction. Normal left ventricular systolic function. Normal left v entricular size. Normal left ventricular wall thickness. There is impaired LV relaxation. Normal E/E` 5.8. Left ventricular e jection fraction is measured at 65 %. 2 . Mild mitral annular calcification. There is non-specific thickening of the mitral valve leaflets. There is trace physiologic m itral valve regurgitation. 3. There is aortic valve sclerosis. Mild to moderate aortic valve regurgitation. 4 . Normal aortic root size. E lectronically Signed By: Roberto Carlos Marie 2 020-04-16 13:28:20 CDT Donnelltheresa Al [facility] :PFT 06/2020 P ulmonary Function Diagnosis: Order Note: Minimal Diffusion Defect -Pulmonary Vascular Order Note: Significant increase in FEV1 when compared to previous study. Order Note: No significant changes in DLCO when compared to previous study. T he following medications were removed from the medication list: Aspirin 81 Mg Oral Tablet (Aspirin) ..... One tab. daily Her updated medication list for this problem includes: Hydrochlorothiazide 25 Mg Oral Tablet (Hydrochlorothiazide) ..... One tab daily Penny Melendez Electrophysiology:CO MPLAINS OF CHEST PAIN W ILL GET NUCLEAR STRESS TEST. pt cannot walk due to age and arthritis Juan Greenberg Electrophysiology: O rders: C OMPREHENSIVE METABOLIC PANEL, W/EGFR (08900) C BC (INCLUDES DIFF/PLT) (6399) L IPID PANEL (7600) T HYROID PANEL (7020) F VC - 33751 (28799) F - 78637 (23100) D O - 64884 (04650) C omplete Echo (CPT-43237) S tress Regadenoson (CPT-41478) Juan Dionicio Electrophysiology: P rior BP: 122/60 (02/09/2019) Her updated medication list for this problem includes: Hydrochlorothiazide 25 Mg Oral Tablet (Hydrochlorothiazide) ..... One tab daily Hydralazine Hcl 50 Mg Oral Tablet (Hydralazine hcl) ..... 1/2 tablet three times daily ( dose was decreased) Aspirin 81 Mg Oral Tablet (Aspirin) ..... One tab. daily Juan Greenberg Electrophysiology: H er updated medication list for this problem includes: Hydrochlorothiazide 25 Mg Oral Tablet (Hydrochlorothiazide) ..... One tab daily Aspirin 81 Mg Oral Tablet (Aspirin) ..... One tab. daily Orders: C OMPREHENSIVE METABOLIC PANEL, W/EGFR (06320) C BC (INCLUDES DIFF/PLT) (6399) L IPID PANEL (1450) T HYROID PANEL (7020) F VC - 63314 (74666) [facility] - 52320 (78003) D O - 50547 (69463) C omplete Echo (CPT-10026) S tress Regadenoson (CPT-96058) Juan Greenberg Electrophysiology fo llow up: E cho 07/28/18 showed EF 65% with mild-mod AR Tyrell Jamaica Electrophysiology fo llow up: P elijah continues to smoke everyday. S CM ENCOURAGED TO STOP SMOKING; SMOKING CESSATION TECHNIQUES DISCUSSED. Tyrell Berumen Electrophysiology fo llow up: B P today: 122/60 P rior BP: 142/60 (08/11/2018) The following medications were removed from the medication list: Lisinopril 10 Mg Oral Tablet (Lisinopril) ..... One tablet at bedtime Her updated medication list for this problem includes: Hydrochlorothiazide 25 Mg Oral Tablet (Hydrochlorothiazide) ..... One tab daily Hydralazine Hcl 50 Mg Oral Tablet (Hydralazine hcl) ..... 1/2 tablet three times daily ( dose was decreased) Aspirin 81 Mg Oral Tablet (Aspirin) ..... One tab. daily Tyrell Berumen Electrophysiology fo llow up: P FTs today 02/09/19 showed DLCO 63%. P atient continues to smoke everyday. S MARKUSNGLY ENCOURAGED TO STOP SMOKING; SMOKING CESSATION TECHNIQUES DISCUSSED. The following medications were removed from the medication list: Lisinopril 10 Mg Oral Tablet (Lisinopril) ..... One tablet at bedtime Her updated medication list for this problem includes: Hydrochlorothiazide 25 Mg Oral Tablet (Hydrochlorothiazide) ..... One tab daily Aspirin 81 Mg Oral Tablet (Aspirin) ..... One tab. daily Tyrell Berumen Electrophysiology fo llow up: s /p DC PPM explantation 08/14/16 with extensive pocket revision due to bacteremia. Tyrell Berumen Electrophysiology - :Orders: E KG (CPT-31520) M obile Cardiac Tele (CPT-97853) S chedule Followup (*) 9 9214 MOD Complex (CPT-20275) Tyrell Berumen Electrophysiology - :Orders: S chedule Followup (*) 9 9214 MOD Complex (CPT-47099) [facility] - :BP today: 142/60 P rior BP: 175/78 (10/21/2017) Her updated medication list for this problem includes: Hydrochlorothiazide 25 Mg Oral Tablet (Hydrochlorothiazide) ..... One tab daily Hydralazine Hcl 50 Mg Oral Tablet (Hydralazine hcl) ..... One tablet three times daily Lisinopril 10 Mg Oral Tablet (Lisinopril) ..... One tablet at bedtime Aspirin 81 Mg Oral Tablet (Aspirin) ..... One tab. daily [facility] - :Last PFTs 03/10/18 showed DLCO 62%, KCO 93%. P atient continues to smoke everyday. Smoking cessation strongly advised. Orders: F VC - 27402 (97382) F RC - 39854 (06913) D LCO - 47496 (02440) S chedule Followup (*) 9 9267 MOD Complex (CPT-43207) Her updated medication list for this problem includes: Hydrochlorothiazide 25 Mg Oral Tablet (Hydrochlorothiazide) ..... One tab daily Lisinopril 10 Mg Oral Tablet (Lisinopril) ..... One tablet at bedtime Aspirin 81 Mg Oral Tablet (Aspirin) ..... One tab. daily Ty[facility]:ST PAULA ENCOURAGED TO STOP SMOKING; SMOKING CESSATION TECHNIQUES DISCUSSED. P atient continues smoking Will have PFTs done. Roberto Carlos Ramsey MD Electrophysiology Roberto Carlos arriaga MD Electrophysiology Roberto Carlos arriaga MD Electrophysiology:Do not take Coreg due to Chronotropic incompetence N o beta blockers because of bradycardia S tart Hydralazine 50mg three times daily T mary Lisinopril daily at bedtime B P today: 175/78 P rior BP: 94/60 (09/23/2017) Roberto Carlos Ramsey MD Electrophysiology F ollow up :Lisinipril dose reduced by half. BP today: 94/60 P rior BP: 142/80 (03/25/2017) Roberto Carlos Ramsey MD Electrophysiology Fo llow up : O rders: 9 9214 MOD Complex (CPT-20371) S TR - Adenosine (CPT-76467) Roberto Carlos Ramsey MD Electrophysiology Fo llow up : O rders: A rosemary Duplex Ultrasound (AAA) (CPT-76482) Roberto Carlos Ramsey MD Cardiology FOLLOW UP :From chronotropic incompetence standpoint, she meets criteria. However, no need for permanent pacemaker from bradycardia at this time. Roberto Carlos Ramsey MD Cardiology FOLLOW UP :No need for pacemaker at this time. Swathi Stevens Cardiology FOLLOW UP : T he following medications were removed from the medication list: Amlodipine Besylate 2.5 Mg Oral Tabs (Amlodipine besylate) ..... Take one pill a day Her updated medication list for this problem includes: Lisinopril 20 Mg Oral Tabs (Lisinopril) ..... Take one tablet daily Aspirin 81 Mg Tabs (Aspirin) ..... One tab. daily Swathi Stevens [facility]iology Follow up faxed 12/16/16:Her updated medication list for this problem includes: Hydrocodone-acetaminophen 10-325 Mg Oral Tabs (Hydrocodone-acetaminophen) .... One tablet every 6 hours as needed for pain Amrani [facility] Follow up faxed 12/16/16:Will obtain pharmacogenetic testing to assess for contributing factors to her depression/anxiety and her response to different medications. Her updated medication list for this problem includes: Remeron Soltab 15 Mg Oral Tbdp (Mirtazapine) .... Take one pill a day Trazodone Hcl 50 Mg Oral Tabs (Trazodone hcl) .... One tab at bedtime Alprazolam 0.5 Mg Tabs (Alprazolam) .... One tab every 4 hrs as needed Prozac 40 Mg Caps (Fluoxetine hcl) .... 60 mg once daily [facility]ani [facility] Follow up faxed 12/16/16:Will obtain pharmacogenetic testing to assess for contributing factors to her depression/anxiety and her response to different medications. Her updated medication list for this problem includes: Remeron Soltab 15 Mg Oral Tbdp (Mirtazapine) .... Take one pill a day Trazodone Hcl 50 Mg Oral Tabs (Trazodone hcl) .... One tab at bedtime Alprazolam 0.5 Mg Tabs (Alprazolam) .... One tab every 4 hrs as needed Prozac 40 Mg Caps (Fluoxetine hcl) .... 60 mg once daily Roberto Carlos Ramsey MD Cardiology Follow up faxed 12/16/16:She has significant pain in multiple joints that affects her quality of life requiring the use of opiates for pain control. Will obtain pharmacogenetic testing to assess response to opiates and other pain medications. Roberto Carlos Ramsey MD Cardiology Follow up faxed 12/16/16:Exercise and weight loss advised. Armani [facility] Follow up faxed 12/16/16:BP today: 153/68 P rior BP: 152/70 (10/08/2016) Her updated medication list for this problem includes: Amlodipine Besylate 2.5 Mg Oral Tabs (Amlodipine besylate) ..... Take one pill a day Aspirin 81 Mg Tabs (Aspirin) ..... One tab. daily [facility] Follow up faxed 7 [facility] Follow up faxed 7 [facility] Follow up faxed 12/16/16:Orders: S NOMED-CT: [id number] Current Medications Documented (SCT-[id number]) E KG (CPT-06391) M obile Cardiac Tele (CPT-35730) Continues to have some fatigue. [facility] Follow up faxed 12/16/16:On 50mcg Levothyroxine daily. Arm[facility] Follow up faxed 12/16/16:Orders: S NOMED-CT: [id number] Current Medications Documented (SCT-[id number]) E KG (CPT-67464) M obile Cardiac Tele (CPT-03913) Armani Valencia EP Follow up faxed 10/19/16:Comp liant with CPAP. Armani Valencia EP Follow up faxed 1 12/20/15:BP today: 152/70 P rior BP: 168/71 (09/24/2016) Her updated medication list for this problem includes: Amlodipine Besylate 2.5 Mg Oral Tabs (Amlodipine besylate) ..... Take one pill a day Aspirin 81 Mg Tabs (Aspirin) ..... One tab. daily Armani Valencia EP Follow up faxed 10/19/16 Dionicio Valencia EP Follow up faxed 1 12/20/15:Pacemaker which was implanted in July 2016 was extracted on August 14 due to bacteremia. She is now doing well and continues to see ID. Armani Valencia [facility] Follow-up faxed 08/08 11/22 Roberto Carlos Ramsey MD Cardiology:Orders: A rterial Duplex Bi-Lower EX (CPT-71982) V enous Doppler Bilateral LE - Standing (CPT-96761) Faisal Carlos MD Cardiology:Orders: A rterial Duplex Bi-Lower EX (CPT-45851) V enous Doppler Bilateral LE - Standing (CPT-64192) Faisal Carlos MD Cardiology:There was mild caroti d plaque. Faisal Carlos MD Cardiology:Echo and myoview scan were normal. There was mild carotid plaque. Faisal Carlos MD Cardiology:Echo and myoview scan were normal. There was mild carotid plaque. Faisal Carlos MD Cardiology:Echo and myoview scan were normal. There was mild carotid plaque. Faisal Carlos MD Cardiology:She is cl eared for thyroid surgery from cardiological perspective. Faisal Carlos MD Cardiology:The pt hamm d a couple episodes (typically in [employer]) where she would develop profused diaphoresis, and dizziness and near-syncope. Armani Valencia Cardiology:She has t hyroid disease followed by Dr. Lima. Faisal Carlos MD Date Name Complete Echo Low Dose Lung CT Carotid Duplex Bilat eral Aorta Duplex Ultraso und DLCO - 81654 FRC - 17444 FVC - 80216 Monitor - Telemetry (Mobile Cardiac) Monitor - Telemetry (Mobile Cardiac) PROTHROMBIN TIME WIT H INR LIPID PANEL CBC (INCLUDES DIFF/P LT) BASIC METABOLIC PANE L W/EGFR Stress Regadenoson Complete Echo RPM (remote patient monitoring) Monitor - Telemetry (Mobile Cardiac) 6 minute walk test DLCO - 88114 FRC - 87794 FVC - 48231 Carotid Duplex Bilat eral Monitor - Telemetry (Mobile Cardiac) PROBNP, N TERMINAL B TYPE NATRIURETIC P EPTIDE (BNP) HEMOGLOBIN A1c LIPID PANEL CBC (INCLUDES DIFF/P LT) COMPREHENSIVE METABO LIC PANEL, W/EGFR 6 minute walk test DLCO - 37843 FRC - 02577 FVC - 78387 Complete Echo Aorta Duplex Ultraso und Monitor - Telemetry (Mobile Cardiac) Complete Echo Stress Regadenoson Complete Echo DLCO - 91183 FRC - 69978 FVC - 09554 THYROID PANEL LIPID PANEL CBC (INCLUDES DIFF/P LT) COMPREHENSIVE METABO LIC PANEL, W/EGFR MAGNESIUM DLCO - 37431 FRC - 69552 FVC - 04256 COMPREHENSIVE METABO LIC PANEL, W/EGFR Mobile Cardiac Tele Complete Echo Carotid Duplex Bilat eral DLCO - 61432 FRC - 10038 FVC - 84984 Aorta Duplex Ultraso und (AAA) STR - Adenosine Mobile Cardiac Tele Complete Echo Carotid Duplex Bilat eral Other Test DLCO - 27156 FRC - 63266 FVC - 74977 Mobile Cardiac Tele C-REACTIVE PROTEIN Other SED RATE BY MODIFIED WESTERGREN CBC (H/H, RBC, INDIC ES, WBC, PLT) COMPREHENSIVE METABO LIC PANEL W/EGFR Venous Doppler Bilat eral LE - Standing Arterial Duplex Bi-L ower EX PROBNP, N TERMINAL STR - Adenosine Aortic Abdominal Ult rasound Complete Echo Carotid Duplex Bilat eral Mobile Cardiac Tele HISTORY OF PROCEDURES Procedure Date Procedure Name Provider Procedure Notes S tatus Complex e/m visit add on Roberto Carlos Ramsey MD completed EKG Roberto Carlos street MD completed Schedule Followup Roberto Carlos arriaga MD completed Counseling LDCT Roberto Carlos street MD completed EKG Roberto Carlos street MD completed FVC / MVV with bronchodilator - 11729 Roberto Carlos Ramsey MD completed BLOOD COUNT HEMOGLOBIN Roberto Carlos jacob MD completed FRC - [address] MD completed SpO2 w/o 6min walk/titration Roberto Carlos Ramsey MD completed DLCO - [address] MD completed EKG Roberto Carlos street MD completed Schedule Followup Roberto Carlos arriaga MD 3 month follow up completed EKG Roberto Carlos street MD completed Schedule Followup Roberto Carlos arriaga MD [address] Ramsey completed Schedule Followup Roberto Carlos arriaga MD 2 WEEKS completed EKG Roberto Carlos street MD completed Spirometry Roberto Carlos street MD completed FVC / MVV with bronchodilator - 33260 Roberto Carlos Ramsey MD completed FRC - [address] MD completed SpO2 w/o 6min walk/titration Roberto Carlos Ramsey MD completed SVC - [address] MD completed DLCO - [address] MD completed 6 minute walk test Roberto Carlos garcia MD completed EKG Roberto Carlos street MD completed EKG Roberto Carlos street MD completed 6 minute walk test Roberto Carlos garcia MD completed Spirometry Roberto Calros street MD completed FVC / MVV with bronchodilator - 25522 Roberto Carlos Ramsey MD completed FRC - [address] MD completed SpO2 w/o 6min walk/titration Roberto Carlos Ramsey MD completed SVC - [address] MD completed DLCO - [address] MD completed EKG Roberto Carlos street MD completed Mobile Cardiac Telem etry - Tech Roberto Carlos Ramsey MD completed Mobile Cardiac Telem etry - Prof Roberto Carlos Ramsey MD completed EKG Roberto Carlos street MD completed Regadenoson, 4 units Roberto Carlos wall MD completed Cardiolite, 2 units Yovanaus Naz pierce MD completed SPECT Images Roberto Carlos street MD completed Stress EKG Roberto Carlos street MD completed FVC / MVV - 43289 Roberto Carlos arriaga MD completed BLOOD COUNT HEMOGLOBIN Roberto Carlos jacob MD completed FRC - [address] MD completed SpO2 w/o 6min walk/titration Roberto Carlos Ramsey MD completed DLCO - [address] MD completed EKG Roberto Carlos street MD completed Schedule Followup Roberto Carlos arriaga MD in 1 yr completed EKG Roberto Carlos street MD completed FVC / MVV with bronchodilator - 93185 Roberto Carlos Ramsey MD completed BLOOD COUNT HEMOGLOBIN Roberto Carlos jacob MD completed FRC - [address] MD completed SpO2 w/o 6min walk/titration Roberto Carlos Rmasey MD completed DLCO - [address] MD completed Schedule Followup Roberto Carlos arriaga MD in 6 mo completed EKG Roberto Carlos street MD completed FVC / MVV with bronchodilator - 35623 Roberto Carlos Ramsey MD completed BLOOD COUNT HEMOGLOBIN Roberto Carlos jacob MD completed FRC - [address] MD completed SpO2 w/o 6min walk/titration Roberto Carlos Ramsey MD completed DLCO - [address] MD completed EKG Roberto Carlos street MD completed SNOMED-CT: [id number] Current Medications Documented Roberto Carlos Ramsey MD completed Stress EKG Julien Ruth MD complete d Regadenoson, 4 units ulius Giancarlo wall MD completed Cardiolite, 2 units ulius Naz pierce MD completed SPECT Images Dian Dennis MD complet ed EKG Roberto Carlos street MD completed SNOMED-CT: [id number] Current Medications Documented Roberto Carlos Ramsey MD completed Mobile Cardiac Telem etry - Tech Roberto Carlos Ramsey MD completed Mobile Cardiac Telem etry - Prof Roberto Carlos Ramsey MD completed Schedule Followup Roberto Carlos arriaga MD In 6 months. completed EKG Roberto Carlos street MD completed SNOMED-CT: [id number] Current Medications Documented Roberto Carlos Ramsey MD completed FVC / MVV with bronchodilator - 43785 Roberto Carlos Ramsey MD completed FRC - [address] MD completed SpO2 - [address] MD completed DLCO - [address] MD completed Mobile Cardiac Telem etry - Tech Kiarra Smith completed Mobile Cardiac Telem etry - Prof Kiarra Smith completed EKG Roberto Carlos street MD completed SNOMED-CT: [id number] Current Medications Documented Roberto Carlos Ramsey MD completed ZIO Inderjitter Carmen arriaga MD completed EKG Roberto Carlos street MD completed SNOMED-CT: [id number] Current Medications Documented Roberto Carlos Ramsey MD completed EKG Roberto Carlos street MD completed SNOMED-CT: [id number] Current Medications Documented Roberto Carlos Ramsey MD completed EKG Roberto Carlos street MD completed SNOMED-CT: [id number] Current Medications Documented Roberto Carlos Ramsey MD completed SNOMED-CT: [id number] Current Medications Documented Faisal Carlos MD completed SNOMED-CT: [id number] Current Medications Documented Faisal Carlos MD completed SNOMED-CT: [id number] Smoking Cessation Counseling Faisal Carlos MD completed Stress EKG Faisal Carlos MD completed Regadenoson, 4 units Faisal Carlos MD completed Cardiolite, 2 units Faisal Carlos MD c ompleted SPECT Images Lois Giraldo MD compl eted Mobile Cardiac Telem etry - Tech Feli Hughes completed Mobile Cardiac Telem etry - Prof Feli Hughes completed SNOMED-CT: [id number] Smoking Cessation Counseling Faisal Carlos MD completed EKG Faisal Carlos MD completed SNOMED-CT: 751706219357797 Current Medications Documented Faisal Carlos MD completed
--- OUTSIDE RECORDS SUMMARY | 2024-12-04 13:04 | XMS_ITS ---
Author Organization [facility] Address [address] [place] [address] Care Team Providers Care Television Newscast Director Name Role Phone Sandie Madrid Unavailable [phone] Migration, Provider Unavailable Unavailable Allergies Allergen (clinical drug ingredient) Drug/Non Drug Allergy documented on EMR Reaction Allergy Type Onset Date Status lisinopril Lisinopril Unknown Drug Allergy 11/17/2023 Acti ve REASON FOR VISIT EMR-Clive Medications Medication SIG (Take, Route, Frequency, Duration) Notes Start Date End Date Status Mounjaro 5 MG/0.5ML Subcutaneous *Reorder fro [facility] for eRx and Interaction Alerts* 03/19/2024 Active Phentermine HCl 37.5 MG Oral 03/19/2024 Active Combivent Respimat 20-100 MCG/ACT Inhalation 03/19/2024 Active QUEtiapine Fumarate 100 MG Oral 03/19/2024 Active Unithroid 88 mcg Oral 03/19/2024 Ac tive Nitroglycerin 0.4 MG Sublingual 03/19/2024 Active DAPAGLIFLOZIN PROPANEDIOL 10 MG TABLET *[facility]* 03/19/2024 Active MOUNJARO 12.5 MG/0.5 ML SUBCUTANEOUS PEN INJECTOR *[facility] Interaction Alerts* 03/19/2024 Active Minoxidil 2.5 mg Oral 03/19/2024 Ac tive EUTHYROX 125 MCG TABLET *[facility] and Interaction Alerts* 03/19/2024 Active traZODone HCl 100 MG Oral 03/19/2024 Active hydrALAZINE HCl 50 MG Oral 03/19/2024 Active Farxiga 5 MG Oral 03/19/2024 Active Rosuvastatin Calcium 40 MG Oral 03/19/2024 Active hydroCHLOROthiazide 25 MG Oral 03/19/2024 Active Losartan Potassium 50 MG Oral 03/19/2024 Active Atenolol 25 MG Oral 03/19/2024 Acti ve Azelastine HCl 0.05 % Ophthalmic 03/19/2024 Active Allopurinol 100 MG Oral 03/19/2024 Active Gabapentin 600 MG Oral 03/19/2024 A ctive Atorvastatin Calcium 40 MG Oral 03/19/2024 Active oxyBUTYnin Chloride ER 10 MG Oral 03/19/2024 Active FLUoxetine HCl 20 MG Oral 03/19/2024 Active Ergocalciferol 1.25 MG (43141 UT) Oral 03/19/2024 Active Furosemide 20 MG Oral 03/19/2024 Ac tive Magnesium Oxide (Elemental) 400 MG Oral *Reorder from [facility] for eRx and Interaction Alerts* 03/19/2024 Active PREGABALIN 200 MG CAPSULE *Reord er from [facility] for eRx and Interaction Alerts* 03/19/2024 Active Doxycycline Hyclate 100 MG Oral 03/19/2024 Active ARIPiprazole 10 MG Oral 03/19/2024 Active amLODIPine Besylate 10 MG Oral 03/19/2024 Active Albuterol Sulfate (2.5 MG/3ML) 0.083% Inhalation 03/19/2024 Active Cetirizine HCl 10 MG Oral 03/19/2024 Active Doxycycline Monohydrate 100 MG Oral 03/19/2024 Active Bevespi Aerosphere 9-4.8 MCG/ACT Inhalation 03/19/2024 Active Xanax 0.5 MG Oral 03/19/2024 Active amLODIPine Besylate 5 MG Oral 03/19/2024 Active HYDROcodone-Acetaminophen 10-325 MG Oral 03/19/2024 Active predniSONE 20 MG Oral 03/19/2024 Ac tive Mounjaro 10 MG/0.5ML Subcutaneous *Reorder fr om [facility] for [facility] and Interaction Alerts* 03/19/2024 Active Yweozudz-Kipiaxoev-Ausmaw th 3.5-89217-6.1 Ophthalmic 03/19/2024 Active Isosorbide Mononitrate ER 30 MG Oral 03/19/2024 Active Azithromycin 250 MG Oral 03/19/2024 Active Breo Ellipta 100-25 MCG/INH Inhalation 03/19/2024 Active hydrOXYzine HCl 10 MG Oral 03/19/2024 Active Unithroid 75 mcg Oral 03/19/2024 Ac tive Ofloxacin 0.30% Ophthalmic 03/19/2024 Ac tive dexAMETHasone 1 MG Oral 03/19/2024 Active busPIRone HCl 10 MG Oral 03/19/2024 Active Cefdinir 300 MG Oral 03/19/2024 Act sangeetha HYDROcodone-Acetaminophen 5-325 MG Oral 03/19/2024 Active ProAir HFA 108 (90 Base) MCG/ACT Inhalation 03/19/2024 Active KERENDIA 10 MG TABLET *[facility]* 03/19/2024 Active Ozempic (0.25 or 0.5 MG/DOSE) 2 MG/3ML Subcutaneous *Pick strength[facility]form [facility] for [facility]* 03/19/2024 Active Azithromycin 500 MG Oral 03/19/2024 Active predniSONE 10 MG Oral 03/19/2024 Ac tive Mounjaro 2.5 MG/0.5ML Subcutaneous *[facility]* 03/19/2024 Active Breztri Aerosphere 160-9-4.8 MCG/ACT Inhalation *[facility] Interaction Alerts* 03/19/2024 Active dexAMETHasone 6 MG Oral 03/19/2024 Active INSULIN SYRINGE/U-100/1ML/31G X 5/1 6 31G X 5/16 1 ML MISC *[facility]* 03/19/2024 Active Chlorthalidone 25 MG Oral 03/19/2024 Active Mounjaro 7.5 MG/0.5ML Subcutaneous *[facility]* 03/19/2024 Active Belsomra 10 mg Oral 03/19/2024 Acti ve Trintellix 20 MG Oral 03/19/2024 Ac tive Rosuvastatin Calcium 10 MG Oral 03/19/2024 Active Farxiga 10 MG Oral 03/19/2024 Activ e FLUoxetine HCl 60 MG Oral 03/19/2024 Active Korlym 300 mg Oral 03/19/2024 Activ e Tretinoin 0.025 % External 03/19/2024 A ctive PROzac 20 MG Oral 03/19/2024 Active rOPINIRole HCl 0.5 MG Oral 03/19/2024 Active busPIRone HCl 5 MG Oral 03/19/2024 Active Social History Sex Assigned At : Social History Observation Description Sex Assigned At Female Encounters Encounter Location Date Provider Diagnosis [facility] [address] [place] [address] 03/25/2024 Provider Migration Plan Of Treatment Next Appt Details Provider Name:Sandie Madrid, 01/21/2025 11:30:00 AM, [address], [address], [place], [address], Progress Notes * JESU HARLEY LDOB: [birth year] (78 yo F)Acc No.[id number]:03/25/2024 Patient:?JESU HARLEY :1945???Age:78 Y???Sex:Female Address:[address] [place] [address] [address], [place] [id number] Subjective: * Chief Complaints: * ???EMR-Clive * Medical History:? * Medical Equipment Sales History:?Migrated GYNHis tory?Migrated GYNHistory:: Abnormal Pap: N Modified Date:06/25/2022,Age at Menarche: 17 Modified Date:08/18/2023,Colonoscopy: 11/07/2021 Modified Date:08/18/2023,Date of Last Colonoscopy: 11/07/2021 Modified Date:06/25/2022,LMP: Unknown Modified Date:08/18/2023,Sexual Problems: N Modified Date:06/25/2022,Sexually Active: N Modified Date:06/25/2022, .? * Surgical History:?Removal of gallbladder (99672) Cosmetic surgery 11/07/1999 * Hospitalization/Major Diagno stic Procedure:? * Family History:?Mother: Depr essive disorder .?Daughter: Anxiety disorder .? * Social History:?Migrated Social History:?Migrated Social History: Alcohol Intake: None 09/09/2020,Tobacco Years: Former smoker 12/16/2022,Smoking Status: 50 11/17/2023. * Medications:?TakingamLODIPin e Besylate 10 MG Tablet Oral ARIPiprazole 10 MG Tablet Oral Atorvastatin Calcium 40 MG Tablet Oral Azelastine HCl 0.05 % Solution Ophthalmic Losartan Potassium 50 MG Tablet Oral traZODone HCl 100 MG Tablet Oral EUTHYROX 125 MCG TABLET , Notes to Pharmacist: *Reorder from [facility] for eRx and Interaction Alerts*MOUNJARO 12.5 MG/0.5 ML SUBCUTANEOUS PEN INJECTOR , Notes to Pharmacist: *Reorder from [facility] for eRx and Interaction Alerts*Farxiga 10 MG Tablet Oral Breztri Aerosphere 160-9-4.8 MCG/ACT Aerosol Inhalation , Notes to Pharmacist: *Reorder from [facility] for eRx and Interaction Alerts*Mounjaro 2.5 MG/0.5ML Solution Pen-injector Subcutaneous , Notes to Pharmacist: *Reorder from [facility] for eRx and Interaction Alerts*hydroCHLOROthiazide 25 MG Tablet Oral Albuterol Sulfate (2.5 MG/3ML) 0.083% Nebulization Solution Inhalation Doxycycline Monohydrate 100 MG Tablet Oral Bevespi Aerosphere 9-4.8 MCG/ACT Aerosol Inhalation PREGABALIN 200 MG CAPSULE , Notes to Pharmacist: *Reorder from [facility] for eRx and Interaction Alerts*Azithromycin 250 MG Tablet Oral hydrOXYzine HCl 10 MG Tablet Oral Jlnkurtj-Frvqgqejj-Ewtcjxwj 3.5-00538-4.1 Suspension Ophthalmic ProAir HFA 108 (90 Base) MCG/ACT Aerosol Solution Inhalation Ozempic (0.25 or 0.5 MG/DOSE) 2 MG/3ML Solution Pen-injector Subcutaneous , Notes to Pharmacist: *Pick strength-form from [facility] for eRX*KERENDIA 10 MG TABLET , Notes to Pharmacist: *Reorder from [facility] for eRx and Interaction Alerts*Rosuvastatin Calcium 10 MG Tablet Oral Trintellix 20 MG Tablet Oral Ergocalciferol 1.25 MG (16222 UT) Capsule Oral oxyBUTYnin Chloride ER 10 MG Tablet Extended Release 24 Hour Oral PROzac 20 MG Capsule Oral rOPINIRole HCl 0.5 MG Tablet Oral Korlym 300 mg Tablet Oral Belsomra 10 mg Tablet Oral Mounjaro 7.5 MG/0.5ML Solution Pen-injector Subcutaneous , Notes to Pharmacist: *Reorder from [facility] for eRx and Interaction Alerts*Phentermine HCl 37.5 MG Capsule Oral QUEtiapine Fumarate 100 MG Tablet Oral Unithroid 88 mcg Tablet Oral amLODIPine Besylate 5 MG Tablet Oral HYDROcodone-Acetaminophen 10-325 MG Tablet Oral predniSONE 20 MG Tablet Oral Xanax 0.5 MG Tablet Oral Azithromycin 500 MG Tablet Oral busPIRone HCl 10 MG Tablet Oral Ofloxacin 0.30% Solution Ophthalmic Unithroid 75 mcg Tablet Oral Breo Ellipta 100-25 MCG/INH Aerosol Powder Breath Activated Inhalation Mounjaro 10 MG/0.5ML Solution Pen-injector Subcutaneous , Notes to Pharmacist: *Reorder from [facility] for eRx and Interaction Alerts*Doxycycline Hyclate 100 MG Tablet Oral FLUoxetine HCl 20 MG Tablet Oral Furosemide 20 MG Tablet Oral Gabapentin 600 MG Tablet Oral Rosuvastatin Calcium 40 MG Tablet Oral Farxiga 5 MG Tablet Oral DAPAGLIFLOZIN PROPANEDIOL 10 MG TABLET , Notes to Pharmacist: *Reorder from [facility] for eRx and Interaction Alerts*predniSONE 10 MG Tablet Oral Allopurinol 100 MG Tablet Oral Atenolol 25 MG Tablet Oral hydrALAZINE HCl 50 MG Tablet Oral Nitroglycerin 0.4 MG Tablet Sublingual Sublingual Cetirizine HCl 10 MG Tablet Oral Magnesium Oxide (Elemental) 400 MG Tablet Oral , Notes to Pharmacist: *Reorder from [facility] for eRx and Interaction Alerts*Cefdinir 300 MG Capsule Oral dexAMETHasone 1 MG Tablet Oral HYDROcodone-Acetaminophen 5-325 MG Tablet Oral Isosorbide Mononitrate ER 30 MG Tablet Extended Release 24 Hour Oral Chlorthalidone 25 MG Tablet Oral dexAMETHasone 6 MG Tablet Oral INSULIN SYRINGE/U-100/1ML/31G X 5/ 6 31G X 16 1 ML MISC , Notes to Pharmacist: *Reorder from [facility] for eRx and Interaction Alerts*Minoxidil 2.5 mg Tablet Oral Combivent Respimat 20-100 MCG/ACT Aerosol Solution Inhalation Mounjaro 5 MG/0.5ML Solution Pen-injector Subcutaneous , Notes to Pharmacist: *Reorder from [facility] for eRx and Interaction Alerts*busPIRone HCl 5 MG Tablet Oral FLUoxetine HCl 60 MG Tablet Oral Tretinoin 0.025 % Cream External Taking amLODIPine Besylate 10 MG Tablet Oral Taking ARIPiprazole 10 MG Tablet Oral Taking Atorvastatin Calcium 40 MG Tablet Oral Taking Azelastine HCl 0.05 % Solution Ophthalmic Taking Losartan Potassium 50 MG Tablet Oral Taking traZODone HCl 100 MG Tablet Oral Taking EUTHYROX 125 MCG TABLET , Notes to Pharmacist: *Reorder from [facility] for eRx and Interaction Alerts*Taking MOUNJARO 12.5 MG/0.5 ML SUBCUTANEOUS PEN INJECTOR , Notes to Pharmacist: *Reorder from [facility] for eRx and Interaction Alerts*Taking Farxiga 10 MG Tablet Oral Taking Breztri Aerosphere 160-9-4.8 MCG/ACT Aerosol Inhalation , Notes to Pharmacist: *Reorder from [facility] for eRx and Interaction Alerts*Taking Mounjaro 2.5 MG/0.5ML Solution Pen-injector Subcutaneous , Notes to Pharmacist: *Reorder from [facility] for eRx and Interaction Alerts*Taking hydroCHLOROthiazide 25 MG Tablet Oral Taking Albuterol Sulfate (2.5 MG/3ML) 0.083% Nebulization Solution Inhalation Taking Doxycycline Monohydrate 100 MG Tablet Oral Taking Bevespi Aerosphere 9-4.8 MCG/ACT Aerosol Inhalation Taking PREGABALIN 200 MG CAPSULE , Notes to Pharmacist: *Reorder from [facility] for eRx and Interaction Alerts*Taking Azithromycin 250 MG Tablet Oral Taking hydrOXYzine HCl 10 MG Tablet Oral Taking Igrdwmqr-Fisjqvltp-Kxihylpn 3.5-71718-4.1 Suspension Ophthalmic Taking ProAir HFA 108 (90 Base) MCG/ACT Aerosol Solution Inhalation Taking Ozempic (0.25 or 0.5 MG/DOSE) 2 MG/3ML Solution Pen-injector Subcutaneous , Notes to Pharmacist: *Pick strength-form from [facility] for eRX*Taking KERENDIA 10 MG TABLET , Notes to Pharmacist: *Reorder from [facility] for eRx and Interaction Alerts*Taking Rosuvastatin Calcium 10 MG Tablet Oral Taking Trintellix 20 MG Tablet Oral Taking Ergocalciferol 1.25 MG (59562 UT) Capsule Oral Taking oxyBUTYnin Chloride ER 10 MG Tablet Extended Release 24 Hour Oral Taking PROzac 20 MG Capsule Oral Taking rOPINIRole HCl 0.5 MG Tablet Oral Taking Korlym 300 mg Tablet Oral Taking Belsomra 10 mg Tablet Oral Taking Mounjaro 7.5 MG/0.5ML Solution Pen-injector Subcutaneous , Notes to Pharmacist: *Reorder from [facility] for eRx and Interaction Alerts*Taking Phentermine HCl 37.5 MG Capsule Oral Taking QUEtiapine Fumarate 100 MG Tablet Oral Taking Unithroid 88 mcg Tablet Oral Taking amLODIPine Besylate 5 MG Tablet Oral Taking HYDROcodone-Acetaminophen 10-325 MG Tablet Oral Taking predniSONE 20 MG Tablet Oral Taking Xanax 0.5 MG Tablet Oral Taking Azithromycin 500 MG Tablet Oral Taking busPIRone HCl 10 MG Tablet Oral Taking Ofloxacin 0.30% Solution Ophthalmic Taking Unithroid 75 mcg Tablet Oral Taking Breo Ellipta 100-25 MCG/INH Aerosol Powder Breath Activated Inhalation Taking Mounjaro 10 MG/0.5ML Solution Pen-injector Subcutaneous , Notes to Pharmacist: *Reorder from [facility] for eRx and Interaction Alerts*Taking Doxycycline Hyclate 100 MG Tablet Oral Taking FLUoxetine HCl 20 MG Tablet Oral Taking Furosemide 20 MG Tablet Oral Taking Gabapentin 600 MG Tablet Oral Taking Rosuvastatin Calcium 40 MG Tablet Oral Taking Farxiga 5 MG Tablet Oral Taking DAPAGLIFLOZIN PROPANEDIOL 10 MG TABLET , Notes to Pharmacist: *Reorder from [facility] for eRx and Interaction Alerts*Taking predniSONE 10 MG Tablet Oral Taking Allopurinol 100 MG Tablet Oral Taking Atenolol 25 MG Tablet Oral Taking hydrALAZINE HCl 50 MG Tablet Oral Taking Nitroglycerin 0.4 MG Tablet Sublingual Sublingual Taking Cetirizine HCl 10 MG Tablet Oral Taking Magnesium Oxide (Elemental) 400 MG Tablet Oral , Notes to Pharmacist: *Reorder from [facility] for eRx and Interaction Alerts*Taking Cefdinir 300 MG Capsule Oral Taking dexAMETHasone 1 MG Tablet Oral Taking HYDROcodone-Acetaminophen 5-325 MG Tablet Oral Taking Isosorbide Mononitrate ER 30 MG Tablet Extended Release 24 Hour Oral Taking Chlorthalidone 25 MG Tablet Oral Taking dexAMETHasone 6 MG Tablet Oral Taking INSULIN SYRINGE/U-100/1ML/31G X 5/ 6 31G X 16 1 ML MISC , Notes to Pharmacist: *Reorder from [facility] for eRx and Interaction Alerts*Taking Minoxidil 2.5 mg Tablet Oral Taking Combivent Respimat 20-100 MCG/ACT Aerosol Solution Inhalation Taking Mounjaro 5 MG/0.5ML Solution Pen-injector Subcutaneous , Notes to Pharmacist: *Reorder from [facility] for eRx and Interaction Alerts*Taking busPIRone HCl 5 MG Tablet Oral Taking FLUoxetine HCl 60 MG Tablet Oral Taking Tretinoin 0.025 % Cream External * Allergies:?Lisinopril: Aller gy - Onset Date 11/17/2023 Objective: * Vitals:? * Physical Examination:? Assessment: Plan: * Treatment: * Procedure Codes:? * true * Date:? Generated for Александр wooten/Stevie/Em on:?12/04/2024 01:04 PM [employer]
--- OUTSIDE RECORDS SUMMARY | 2024-12-04 13:04 | XMS_ITS | Clinical Summary ---
Author Organization [facility] Address [facility]. [place], [place] [address] [place] [id number] Care Team Providers Care Supervisor Brine Name Role Phone Unavailable Primary Care Provider Unavailabl e Social History Tobacco Use Types Packs/Day Years Used Date Smoking Tobacco: Never Assessed Comments Unknown Sex and Gender Information Value Date Recorded Sex Assigned at Not on file Legal Sex Female 8:29 PM CDT Gender Identity Not on file Sexual Orientation Not on file Plan of Treatment Health Maintenance Due Date Last Done Comments Hepatitis C 1963 DTaP, Tdap and Td Vaccines ( 1 - Tdap) 1966 Zoster Vaccines (1 of 2) 1997 Dexa Scan (General) 2012 Pneumococcal Vaccine: 65+ Ye ars (1 of 1 - PCV) 2012 RSV Immunization or 60+ Years (1 - 1-dose 75+ series) 2022 COVID-19 Vaccine (2023-2 5 season) 2024 Influenza Adult (#1) 2024 Meningococcal B Vaccine Aged Out No l onger eligible based on patient's age to complete this topic Meningococcal Vaccine Aged Out No trae zeina eligible based on patient's age to complete this topic RSV Immunizations Under 20 Months Aged Out No longer eligible based on patient's age to complete this topic
--- OUTSIDE RECORDS SUMMARY | 2024-12-04 13:04 | XMS_ITS | Referral Summary ---
Author Organization [facility] Address [address] [place] [address] Care Team Providers Care Stencil Sprayer Name Role Phone Waqas De Leon MD Unavailable [phone] Waqas De Leon MD Unavailable [phone] Cortney Corona MD Unavailable [phone] Jn Velásquez MD Primary Care Provider [phone] Miscellaneous, Not In File Unavailable Unava ilDaniel Mckeon MD Unavailable [phone] James Cifuentes MD Unavailable Encounters Date Type Department Care Team Description 10/10/2024 2:00 PM DIAZO TECHNICIAN - 10/10/2024 11:59 PM DIAZO TECHNICIAN Hospital Encounter [address] [address] Interstitial pulmonary disease (CMS/HCC) (HCC) Discharge Disposition: Discharge to home or self care 10/10/2024 2:15 PM DIAZO TECHNICIAN Lab [facility] Endocrinology Metabolism and Lipid [address] [place] [address] 5th [place] [address] [place] [address] Interstitial pulmonary disease (CMS/HCC) (HCC) 10/10/2024 1:00 PM DIAZO TECHNICIAN Office Visit [facility] Rheumatology [facility] 5th [place] [address] [place] [address] Interstitial pulmonary disease (CMS/HCC) (HCC) (Primary Dx) 09/11/2024 5:33 PM DIAZO TECHNICIAN - 09/11/2024 11:59 PM DIAZO TECHNICIAN Hospital Encounter [facility] ([facility]) [address] [place] [id number] Discharge Disposition: Discharge to home or self care 09/11/2024 4:44 PM DIAZO TECHNICIAN - 09/11/2024 11:59 PM DIAZO TECHNICIAN Hospital Encounter [facility] ([facility]) [address] [place] [address] Discharge Disposition: Discharge to home or self care 09/11/2024 4:42 PM DIAZO TECHNICIAN - 09/11/2024 11:59 PM DIAZO TECHNICIAN Hospital Encounter [facility] ([facility]) [address] [place] [address] Discharge Disposition: Discharge to home or self care 09/11/2024 4:41 PM DIAZO TECHNICIAN - 09/11/2024 11:59 PM DIAZO TECHNICIAN Hospital Encounter [facility] ([facility]) [address] [place] [address] Discharge Disposition: Discharge to home or self care 09/11/2024 4:40 PM DIAZO TECHNICIAN - 09/11/2024 11:59 PM DIAZO TECHNICIAN Hospital Encounter [facility] ([facility]) [address] [place] [address] Discharge Disposition: Discharge to home or self care 09/03/2024 Telephone [facility] Rheumatology [address] [place] [address] Advanced Medicine 5th [place] [address] [place] [address] Zarina Carroll MD Medical Records Request (Images for CT ILD Conference) from Last 3 Months Allergies Active Allergy Reactions Criticality Noted Date [...] AM CDT): 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 Follow-up 2-3 days after discharge, to consider restarting Mifepristone. Also to monitor Synthroid dose and thyroid studies - DC'd with 88mcg synthroid. 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 Fitch at [facility] on 06/28 Acute pulmonary edema (CMS/HCC) 05/18/2022 [...] on room air- transition to torsemide per police matron, add low dose potassium supplement. Continue to [...] of lower extremity 08/10/201611/2021 Excessive sweating 09/21/2015 2 Gastro-esophageal reflux dis ease without esophagitis 10/13/2014 09/07/2022 Social History Tobacco Use Types Packs/Day Years Used Date Smoking Tobacco: Former Cigarettes 1 53 1 967 - 2019 Smokeless Tobacco: Never Tobacco Cessation:Counseling Given: [...] week 05/31/2023 How often do you attend [facility] or worship services? Never 05/31/2023 Do you belong to any clubs o r organizations such as buddhist groups, unions, fraternal or athletic groups, or [...] place to sleep or slept in a correction (including now)? No 05/31/2023 Personal Safety Answer Date Recorded Have you ever been in or are you currently in a harmful physical or emotional relationship or is someone making you feel afraid or unsafe? Denies 05/30/2023 Comments Unknown Sex and Gender Information Value Date Recorded Sex Assigned at Not on file Legal Sex Female 7:23 PM DIAZO TECHNICIAN Gender Identity Not on file Sexual Orientation Not on file Last Filed Vital Signs Vital Sign Reading Time Taken Comments Blood Pressure 123/61 10/10/2024 1:09 PM DIAZO TECHNICIAN Pulse 70 10/10/2024 1:09 PM DIAZO TECHNICIAN Temperature 36.7 ??C (98 ??F) 10/10/2024 1:09 PM DIAZO TECHNICIAN Respiratory Rate 20 06/01/2023 11:31 AM CDT Oxygen Saturation 88% 08/10/2024 10:08 AM CDT Inhaled Oxygen Concentration - - Weight 106 kg (233 lb 9.6 oz) 10/10/2024 1:09 PM DIAZO TECHNICIAN Height 156.2 cm (5' 1.5 ) 10/10/2024 1:09 PM DIAZO TECHNICIAN Body Mass Index 43.42 10/10/2024 1:09 PM DIAZO TECHNICIAN Plan of Treatment Not on file Procedures Procedure Name Priority Date/Time Associated Diagnosis Comments RHEUMATOID FACTOR Routine 10/10/2024 2:0 0 PM DIAZO TECHNICIAN Interstitial pulmonary disease (CMS/HCC) (HCC) KATHY ANTIBODY EVALUATION WITH REFLEX Routine 10/10/2024 2:00 PM DIAZO TECHNICIAN Interstitial pulmonary disease (CMS/HCC) (HCC) ERYTHROCYTE SEDIMENTATION RATE Routine 10/10/2024 2:00 PM DIAZO TECHNICIAN Interstitial pulmonary disease (CMS/HCC) (HCC) JOSE QUALITATIVE WITH REFLEX TO JOSE QUANTITATIVE Routine 10/10/2024 2:00 PM DIAZO TECHNICIAN Interstitial pulmonary disease (CMS/HCC) (HCC) ALDOLASE Routine 10/10/2024 2:00 PM DIAZO TECHNICIAN Interstitial pulmonary disease (CMS/HCC) (HCC) COMPREHENSIVE METABOLIC PANEL Routine 10/10/2024 2:00 PM DIAZO TECHNICIAN Interstitial pulmonary disease (CMS/HCC) (HCC) CREATINE KINASE (CK), TOTAL Routine 10/10/2024 2:00 PM DIAZO TECHNICIAN Interstitial pulmonary disease (CMS/HCC) (HCC) PHOSPHORUS Routine 10/10/2024 2:00 PM DIAZO TECHNICIAN Interstitial pulmonary disease (CMS/HCC) (HCC) URIC ACID Routine 10/10/2024 2:00 PM DIAZO TECHNICIAN Interstitial pulmonary disease (CMS/HCC) (HCC) CRP (ACUTE PHASE) Routine 10/10/2024 2:0 0 PM DIAZO TECHNICIAN Interstitial pulmonary disease (CMS/HCC) (HCC) CT BODY OUTSIDE REFERENCE Routine 09/11/2024 5:[address] BODY OUTSIDE REFERENCE Routine 09/11/2024 4:[address] BODY OUTSIDE REFERENCE Routine 09/11/2024 4:[address] BODY OUTSIDE REFERENCE Routine 09/11/2024 4:[address] BODY OUTSIDE REFERENCE Routine 09/11/2024 4:40 PM DIAZO TECHNICIAN HEPATITIS PANEL, ACUTE Routine 12:01 PM CDT Interstitial pulmonary disease (CMS/HCC) (HCC) from Last 3 Months or Most Recently Relevant to Health Maintenance Results * (ABNORMAL) JOSE ab ql w/rflx to JOSE qn (10/10/2024 2:00 PM DIAZO TECHNICIAN) JOSE Positive 1:80 Comment: Interpretive Data Normal [...] revised on 2020. JOSE, quant 1:80 titer [facility] JOSE, interp Speckled(A) [facility] Blood 10/10/2024 2:00 PM DIAZO TECHNICIAN 10/10/2024 2:39 PM DIAZO TECHNICIAN Zarina Carroll MD LAB BLOOD ORDERABLES Final Resul t Performing Organization Address [facility] Co de Phone Number CARLITO [facility] [place] [address] * KATHY ab eval w/reflex (10/10/2024 2:00 PM DIAZO TECHNICIAN) KATHY ab Negative Negative Comment: Interpretive Data Positive Screens will be reflexed to specific testing for Antibodies against the following antigens: Nancy-1 Ab, ADVERTISING DESIGNER Ab, Scl-70 Ab, Castillo Ab, SS-A/Ro Ab, and SS- B/La Ab. Further testing for dsDNA, Centromere, or Ribosomal P antibodies is suggested in patient with a positive screen and negative specific antibodies. Current interpretive data was last revised on 2023. Blood 10/10/2024 2:00 PM DIAZO TECHNICIAN 10/10/2024 2:39 PM DIAZO TECHNICIAN Zarina Carroll MD LAB BLOOD ORDERABLES Final Resul t Performing Organization Address [facility] Co de Phone Number [facility] [place] [address] * (ABNORMAL) Aldolase (10/10/2024 2:00 PM DIAZO TECHNICIAN) Pathologist [facility] Aldolase 13.1(H) 0.1 - 8.0 Units/L Blood 10/10/2024 2:00 PM DIAZO TECHNICIAN 10/10/2024 2:39 PM DIAZO TECHNICIAN Zarina Carroll MD LAB BLOOD ORDERABLES Final Resul t Performing Organization Address City/[facility] Co de Phone Number CARLIT[facility] [place] [address] * Erythrocyte sedimentation rate (10/10/2024 2:00 PM DIAZO TECHNICIAN) Erythrocyte sedimentation rate 23 1 - 30 mm/hr Comment:Testing performed by : [facility], [facility], [place]., [address] Blood 10/10/2024 2:00 PM DIAZO TECHNICIAN 10/10/2024 2:39 PM DIAZO TECHNICIAN Zarina Carroll MD LAB BLOOD ORDERABLES Final Resul t Performing Organization Address [facility] Co de Phone Number CARLIT[facility] [place] [address] * Rheumatoid factor (10/10/2024 2:00 PM DIAZO TECHNICIAN) Rheumatoid factor, quant 15.0 0.1 - 15.0 IUnits/mL Blood 10/10/2024 2:00 PM DIAZO TECHNICIAN 10/10/2024 2:39 PM DIAZO TECHNICIAN Zarina Carroll MD LAB BLOOD ORDERABLES Final Resul t Performing Organization Address [facility] Co de Phone Number [facility] [place] [address] * (ABNORMAL) CRP (acute phase) (10/10/2024 2:00 PM DIAZO TECHNICIAN) C-Reactive Protein, Acute 5.6(H) <5.0 mg/L [facility] Blood 10/10/2024 2:00 PM DIAZO TECHNICIAN 10/10/2024 3:21 PM DIAZO TECHNICIAN Zarina Carroll MD LAB BLOOD ORDERABLES Final Resul t Performing Organization Address City/State/[facility] Co de Phone Number [facility] * Uric acid (10/10/2024 2:00 PM DIAZO TECHNICIAN) Uric Acid 7.4 3.1 - 7.7 mg/dL [facility] Blood 10/10/2024 2:00 PM DIAZO TECHNICIAN 10/10/2024 3:21 PM DIAZO TECHNICIAN Zarina Carroll MD LAB BLOOD ORDERABLES Final Resul t Performing Organization Address [facility] de Phone Number [facility] * Phosphorus (10/10/2024 2:00 PM DIAZO TECHNICIAN) Phosphorus 3.2 2.3 - 4.5 mg/dL [facility] Blood 10/10/2024 2:00 PM DIAZO TECHNICIAN 10/10/2024 3:21 PM DIAZO TECHNICIAN Zarina Carroll MD LAB BLOOD ORDERABLES Final Resul t Performing Organization Address [facility] de Phone Number [facility] * Creatine kinase (CK), total (10/10/2024 2:00 PM DIAZO TECHNICIAN) CK, Total 156 26 - 308 IU/L [facility] Blood 10/10/2024 2:00 PM DIAZO TECHNICIAN 10/10/2024 3:21 PM DIAZO TECHNICIAN Zarina Carroll MD LAB BLOOD ORDERABLES Final Resul t Performing Organization Address [facility] de Phone Number [facility] * (ABNORMAL) Comprehensive metabolic panel (10/10/2024 2:00 PM DIAZO TECHNICIAN) Total Protein 7.7 6.1 - 8.4 g/dL [...] [facility] Blood 10/10/2024 2:00 PM DIAZO TECHNICIAN 10/10/2024 3:21 PM DIAZO TECHNICIAN Zarina Carroll MD LAB BLOOD ORDERABLES Final Resul t [facility] * CT Body Outside Reference (09/11/2024 5:34 PM DIAZO TECHNICIAN) Impressions [facility] - 09/11/2024 5:34 PM DIAZO TECHNICIAN These images are for Reference purposes only and have not been reviewed by [facility] Radiology. ??There will be no report generated by a [facility] Radiologist. Narrative [facility] - 09/11/2024 5:34 PM DIAZO TECHNICIAN EXAMINATION: ??Images For Reference Purposes Only Zarina Carroll MD IMG CT PROCEDURES Final Result [facility] * CT Body Outside Reference (09/11/2024 4:44 PM DIAZO TECHNICIAN) Impressions [facility] - 09/11/2024 4:44 PM DIAZO TECHNICIAN These images are for Reference purposes only and have not been reviewed by [facility] Radiology. ??There will be no report generated by a [facility] Radiologist. Narrative [facility] - 09/11/2024 4:44 PM DIAZO TECHNICIAN EXAMINATION: ??Images For Reference Purposes Only Zarina Carroll MD IMG CT PROCEDURES Final Result Performing Organization Address [facility] de Phone Number [facility] * CT Body Outside Reference (09/11/2024 4:42 PM DIAZO TECHNICIAN) Impressions [facility] - 09/11/2024 4:42 PM DIAZO TECHNICIAN These images are for Reference purposes only and have not been reviewed by [facility] Radiology. ??There will be no report generated by a [facility] Radiologist. Narrative [facility] - 09/11/2024 4:42 PM DIAZO TECHNICIAN EXAMINATION: ??Images For Reference Purposes Only Zarina Carroll MD [facility] CT PROCEDURES Final Result Performing Organization Address [facility] de Phone Number [facility] * CT Body Outside Reference (09/11/2024 4:41 PM DIAZO TECHNICIAN) Impressions [facility] - 09/11/2024 4:41 PM DIAZO TECHNICIAN These images are for Reference purposes only and have not been reviewed by [facility] Radiology. ??There will be no report generated by a [facility] Radiologist. Narrative [facility] - 09/11/2024 4:41 PM DIAZO TECHNICIAN EXAMINATION: ??Images For Reference Purposes Only Zarina Carroll MD IM CT PROCEDURES Final Result Performing Organization Address [facility] de Phone Number [facility] * CT Body Outside Reference (09/11/2024 4:40 PM DIAZO TECHNICIAN) Impressions [facility] - 09/11/2024 4:40 PM DIAZO TECHNICIAN These images are for Reference purposes only and have not been reviewed by [facility] Radiology. ??There will be no report generated by a [facility] Radiologist. Narrative [facility] - 09/11/2024 4:40 PM DIAZO TECHNICIAN EXAMINATION: ??Images For Reference Purposes Only Zarina Carroll MD IMG CT PROCEDURES Final Result Performing Organization Address City/[facility] Co de Phone Number [facility] * Hepatitis panel, acute Blood (08/10/2024 12:01 PM CDT) Hep A IgM Nonreactive Nonreactive Hep B core IgM Nonreactive Nonreactive [facility] Hep C Ab Nonreactive Nonreactive [facility] Comment:Antibodies to HCV no t detected. Does NOT exclude the possibility of recent exposure to HCV. Current interpretive data was last revised on 22 HepBsAg Nonreactive [facility] Blood 08/10/2024 12:0 1 PM CDT 08/10/2024 2:23 PM CDT Zarina Carroll MD LAB MICROBIOLOGY - GENERAL ORDER TATO Final Result Performing Organization Address [facility] Co de Phone Number CARLITO [facility] [place] [address] from Last 3 Months or Most Recently Relevant to Health Maintenance Insurance MEDICARE [employer] [facility] Address: [facility] [address] [place] [address] IDPA IDPA MED[employer]ARE [employer] IDPA MEDIC[employer] [facility] Address[place] [id number] [place] [id number] MEDICARE [employer] MEDICARE [employer] [facility] Address: [address] [address] [place] [address] IDPA Advance Directives For more information, please contact: [phone] * Full Code (Latest Code Status on File) Date Activated Date Inactivated Comments 05/30/2023 2:42 AM 06/01/2023 6:25 PM * Full Code Date Activated Date Inactivated Comments 05/30/2023 12:31 AM 05/30/2023 2:42 AM * Full Code Date Activated Date Inactivated Comments 05/05/2022 2:33 PM 05/14/2022 7:09 PM Care Teams Stencil Sprayer Relationship Specialty Start Date End Date Jn Velásquez MD PCP - General Family Medicine 05/29/23 Waqas De Leon MD Internal Medicine 11/20/21 Waqas De Leon MD Internal Medicine 06/06/19 Cortney Corona MD Referring Physician Surgery 05/14/22 Miscellaneous, Not In File 05/31/23 Daniel Go MD [address] [place] [address] Consulting Physician Interventional Cardiology 05/31/23 [place] [address] [facility] [address] [place] [address] Consulting Physician Pulmonary Disease 05/31/23
--- OUTSIDE RECORDS SUMMARY | 2024-12-04 13:05 | XMS_ITS ---
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 for eRx and Interaction Alerts* 03/19/2024 Unknown hydrALAZINE HCl 50 MG Oral 03/19/2024 Unknown Atenolol 25 MG Oral 03/19/2024 Unkn own amLODIPine Besylate 5 MG Oral 03/19/2024 Unknown Breo Ellipta 100-25 MCG/INH Inhalation 03/19/2024 Unknown Unithroid 75 mcg Oral 03/19/2024 Un known Furosemide 20 MG Oral 03/19/2024 Un known Mounjaro 10 MG/0.5ML Subcutaneous *[facility]* 03/19/2024 Unknown rOPINIRole HCl 0.5 MG Oral 03/19/2024 Unknown Ergocalciferol 1.25 MG (26559 UT) Oral 03/19/2024 Unknown Korlym 300 mg Oral 03/19/2024 Unkno wn oxyBUTYnin Chloride ER 10 MG Oral 03/19/2024 Unknown Unithroid 88 mcg Oral 03/19/2024 Un known Rosuvastatin Calcium 10 MG Oral 03/19/2024 Unknown KERENDIA 10 MG TABLET *Reorder f rom [facility] for eRx and Interaction Alerts* 03/19/2024 Unknown ProAir HFA 108 (90 Base) MCG/ACT Inhalation 03/19/2024 Unknown Azithromycin 250 MG Oral 03/19/2024 Unknown PREGABALIN 200 MG CAPSULE *Reord er from [facility] for eRx and Interaction Alerts* 03/19/2024 Unknown MOUNJARO 12.5 MG/0.5 ML SUBCUTANEOUS PEN INJECTOR *Reorder from [facility] for eRx and Interaction Alerts* 03/19/2024 Unknown Albuterol Sulfate (2.5 MG/3ML) 0.083% Inhalation 03/19/2024 Unknown hydroCHLOROthiazide 25 MG Oral 03/19/2024 Unknown Breztri Aerosphere 160-9-4.8 MCG/ACT Inhalation *Reorder from [facility] for eRx and Interaction Alerts* 03/19/2024 Unknown Farxiga 10 MG Oral 03/19/2024 Unkno wn EUTHYROX 125 MCG TABLET *Reorder from [facility] for eRx and Interaction Alerts* 03/19/2024 Unknown Losartan Potassium 50 MG Oral 03/19/2024 Unknown Azelastine HCl 0.05 % Ophthalmic 03/19/2024 Unknown Atorvastatin Calcium 40 MG Oral 03/19/2024 Unknown amLODIPine Besylate 10 MG Oral 03/19/2024 Unknown INSULIN SYRINGE/U-100/1ML/31G X 5/ 6 31G X 516 1 ML MISC *Reorder from [facility] for eRx and Interaction Alerts* 03/19/2024 Unknown Trintellix 20 MG 1 tablet Oral Once a day for 90 days 03/19/2024 Active Isosorbide Mononitrate ER 30 MG Oral 03/19/2024 Unknown dexAMETHasone 1 MG Oral 03/19/2024 Unknown Chlorthalidone 25 MG Oral 03/19/2024 Unknown Magnesium Oxide (Elemental) 400 MG Oral *Reorder from [facility] for eRx and Interaction Alerts* 03/19/2024 Unknown Nitroglycerin 0.4 MG Sublingual 03/19/2024 Unknown Social History Tobacco Use: Social History Observation Description Date Details (start date - stop date) Former Smoker NA - NA Sex Assigned At : Social History Observation Description Sex Assigned At Female Tobacco Control (Standard) Question Answer Notes Tobacco use: Former smoker Problems Problem Type SNOMED Code ICD Code Onset Dates Problem Status W/U Status Risk Notes Problem Severe recurrent major depression without psychotic features (20702807) Major depressive disorder, 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 Problem Generalized anxiety disorder (14987328) Generalized anxiety disorder (F41.1) Active confirmed Problem Primary insomnia (7106130) Primary insomnia (F51.01) Active confirmed Encounters Encounter Location Date Provider Diagnosis [facility] [employer] [address] [place] [address] 07/24/2024 Sandie Madrid Major depressive disorder, recurrent severe without psychotic features F33.2 ; Generalized anxiety disorder F41.1 and Primary insomnia F51.01 Assessments Encounter Date Diagnosis (ICD Code) Assessment Notes Treatment Notes Treatment Clinical Notes Section Notes 07/24/2024 Major depressive disorder, recurrent severe without psychotic features (ICD-10 - F33.2) Common side effects to SSRI medications include headaches, dry mouth/eye, GI upset (including indigestion, nausea, diarrhea), sleeping problems (insomnia or drowsiness), decreased libido, blurred vision, dizziness. Generally, side effects will subside or lessen with time and are common during drug initiation and dose changes. If they persist please contact the office. 07/24/2024 Generalized anxiety disorder (ICD-10 - F41.1) 07/24/2024 Primary insomnia (ICD-10 - F51.01) 07/24/2024 Other Stable, continue Trintellix 20mg daily for mood, anxiety. Patient educated on all medications including potential benefits, side effects, risks. Educated on proper dosing schedule and importance of compliance. Plan Of Treatment Medication Medication Name Sig Start Date Stop Date Notes Trintellix 20 MG 1 tablet Oral Once a day for 90 days 03/07 Treatment Notes Assessment Notes Major depressive disorder, r ecurrent severe without psychotic features Common side effects to SSRI medications include headaches, dry mouth/eye, GI upset (including indigestion, nausea, diarrhea), sleeping problems (insomnia or drowsiness), decreased libido, blurred vision, dizziness. Generally, side effects will subside or lessen with time and are common during drug initiation and dose changes. If they persist please contact the office. Other Stable, continue Trintellix 20mg daily for mood, anxiety. Patient educated on all medications including potential benefits, side effects, risks. Educated on proper dosing schedule and importance of compliance. Next Appt Details Follow Up: 6 Months, Reason: medication follow up Provider Name:Sandie Madrid, 01/21/2025 11:30:00 AM, [address], [facility] [address], [place], [address], Progress Notes * JESU HARLEY LDOB: [birth year] (78 yo F)Acc No.[id number]:07/24/2024 Patient:?JESU HARLEY Provider:?SANDIE MADRID PMHNP :1945???Age:78 Y???Sex:Female D ate:07/24/2024 Address:[address] [place] [address] [address], [place] [address] Subjective: * Chief Complaints: * ???1. Follow up. * HPI: ???History of Presenting Problem:?Anxiety?with excessive worry-stable?.?Depression?Rates depression 2/10 with 10 being most severe. Denies SI.?.?Mood lability?no hx benoit.?Psychosis?no hx psychosis.?Suicidal ideation?denies.?Here for follow up. No medication changes made last apt. Reports she is doing really well . Denies feeling hopeless or helpless, no suicidal ideation. Motivation is low, energy is low-secondary to chronic medical issues. Depression and anxiety are stable, it is not as near as bad as it used to be . No recent panic attacks.? Sleep is fair, getting about 7-9 hours nightly.? Appetite is good, still taking Mounjaro, has not lost weight. ???Depression Screening:?DUGLAS-7 (2018 Edition)?Feeling nervous, anxious, or on edge?Not at all.?Depression screening:?PHQ-9?Little interest or pleasure in doing things?Not at all,?Feeling down, depressed, or hopeless?Several days,?Trouble falling or staying asleep, or sleeping too much?Not at all,?Feeling tired or having little energy?More than half the days,?Poor appetite or overeating?Several days,?Feeling bad about yourself or that you are a failure, or have let yourself or your family down?Not at all,?Trouble concentrating on things, such as reading the newspaper or watching television?Not at all,?Moving or speaking so slowly that other people could have noticed; or the opposite, being so fidgety or restless that you have been moving around a lot more than usual?Not at all,?Thoughts that you would be better off or of hurting yourself in some way?Not at all.?Intervention?Depression Screening Findings?Negative,?Follow-Up for Depression?Mental health care management,?Additional Evaluation for Depression?Psychiatric interview and evaluation,?Name of the standardized tool used for adult depression screening:?Patient Health Questionnaire (PHQ-9).?[place]-Suicide Severity Rating Scale:?Suicide Risk (CSRS-screener)?in the past one month Have you wished you were or wished you could go to sleep and not wake up??No,?in the past one month Have you actually had any thoughts of killing yourself??No.? * ROS:?Psychiatric:?Patient denies?suicidal thoughts, benoit, psychosis.?Comments?See HPI for details.? * Medical History:?Problems: A bdominal bruit, Anemia, Anxiety, Aortic valve regurgitation, Arthritis, Asthma, Bacteremia, Bradycardia, Bruit, Chronic kidney disease stage 2, Chronic kidney disease stage 3, Chronotropic incompetence, Depressive disorder, Dizziness, Dyspnea, Edema of lower extremity, Excessive sweating, Family history of Hypertension, Fatigue, Gastroesophageal reflux disease without esophagitis, Generalized anxiety disorder, History of substance abuse, Hypertensive disorder, Hypothyroidism, Insomnia, Left ventricular cardiac dysfunction, Mitral valve prolapse, Obesity, Obstructive sleep apnea syndrome, Pain in lower limb, Peripheral vascular disease, Primary insomnia, Pulmonary hypertension, Severe recurrent major depression without psychotic features, Tobacco dependence syndrome, Hypothyroid, CKD, CHF. * Surgical History:?Removal of gallbladder (40688) , Cosmetic surgery 11/07/1999. * Family History:?Mother: Depr essive disorder .?Daughter: Anxiety disorder .? * Social History:?Tobacco Use:?Tobacco Control (Standard)?Tobacco use:?Former smoker.?Migrated Social History:?Migrated Social History: Alcohol Intake: None 09/09/2020,Tobacco Years: Former smoker 12/16/2022,Smoking Status: 52 11/17/2023. * Medications:?Taking Trintell ix 20 MG Tablet Oral , Unknown amLODIPine Besylate 10 MG Tablet Oral , Unknown Atorvastatin Calcium 40 MG Tablet Oral , Unknown Azelastine HCl 0.05 % Solution Ophthalmic , Unknown Losartan Potassium 50 MG Tablet Oral , Unknown EUTHYROX 125 MCG TABLET , Notes to Pharmacist: *Reorder from [facility] for eRx and Interaction Alerts*, Unknown MOUNJARO 12.5 MG/0.5 ML SUBCUTANEOUS PEN INJECTOR , Notes to Pharmacist: *Reorder from [facility] for eRx and Interaction Alerts*, Unknown Farxiga 10 MG Tablet Oral , Unknown Breztri Aerosphere 160-9-4.8 MCG/ACT Aerosol Inhalation , Notes to Pharmacist: *Reorder from [facility] for eRx and Interaction Alerts*, Unknown hydroCHLOROthiazide 25 MG Tablet Oral , Unknown Albuterol Sulfate (2.5 MG/3ML) 0.083% Nebulization Solution Inhalation , Unknown PREGABALIN 200 MG CAPSULE , Notes to Pharmacist: *Reorder from [facility] for eRx and Interaction Alerts*, Unknown Azithromycin 250 MG Tablet Oral , Unknown ProAir HFA 108 (90 Base) MCG/ACT Aerosol Solution Inhalation , Unknown KERENDIA 10 MG TABLET , Notes to Pharmacist: *Reorder from [facility] for eRx and Interaction Alerts*, Unknown Rosuvastatin Calcium 10 MG Tablet Oral , Unknown Ergocalciferol 1.25 MG (94406 UT) Capsule Oral , Unknown rOPINIRole HCl 0.5 MG Tablet Oral , Unknown oxyBUTYnin Chloride ER 10 MG Tablet Extended Release 24 Hour Oral , Unknown Korlym 300 mg Tablet Oral , Unknown Unithroid 88 mcg Tablet Oral , Unknown amLODIPine Besylate 5 MG Tablet Oral , Unknown Unithroid 75 mcg Tablet Oral , Unknown Breo Ellipta 100-25 MCG/INH Aerosol Powder Breath Activated Inhalation , Unknown Mounjaro 10 MG/0.5ML Solution Pen-injector Subcutaneous , Notes to Pharmacist: *Reorder from [facility] for eRx and Interaction Alerts*, Unknown Furosemide 20 MG Tablet Oral , Unknown Farxiga 5 MG Tablet Oral , Unknown DAPAGLIFLOZIN PROPANEDIOL 10 MG TABLET , Notes to Pharmacist: *Reorder from [facility] for eRx and Interaction Alerts*, Unknown Allopurinol 100 MG Tablet Oral , Unknown Atenolol 25 MG Tablet Oral , Unknown hydrALAZINE HCl 50 MG Tablet Oral , Unknown Nitroglycerin 0.4 MG Tablet Sublingual Sublingual , Unknown Magnesium Oxide (Elemental) 400 MG Tablet Oral , Notes to Pharmacist: *Reorder from [facility] for eRx and Interaction Alerts*, Unknown dexAMETHasone 1 MG Tablet Oral , Unknown Isosorbide Mononitrate ER 30 MG Tablet Extended Release 24 Hour Oral , Unknown Chlorthalidone 25 MG Tablet Oral , Unknown INSULIN SYRINGE/U-100/1ML/31G X 5/ 6 31G X 5/16 1 ML MISC , Notes to Pharmacist: *Reorder from [facility] for eRx and Interaction Alerts*, Medication List reviewed and reconciled with the patient * Allergies:?Lisinopril: Aller gy - Onset Date 11/17/2023. Objective: * Vitals:? * Examination: ???Psychiatry: ?Appearance:?well-groomed.?Abnormal body movements:?none.?Affect / mood:?appropriate.?Attention:?good.?Attitude:?cooperative.?Homicidal ideation:?none.?Suicidal ideation:?none.?Degree of awareness of surroundings:?within normal limits.?Delusions:?no.?Hallucinations:?no.?Insight:?good.?Judgement:?good.?Orientation:?awake, alert and oriented x 3.?Perceptual disorders:?no perceptual disorder noted.?Psychomotor activity:?within normal range.?Speech / language:?normal rate, volume, and articulation (RVR), clear and coherent.?Thought content:?appropriate.?Thought process:?intact.? Assessment: * Assessment: 1.?Major depressive disorder , recurrent severe without psychotic features - F33.2 (Primary)???2.?Generalized anxiety disorder - F41.1???3.?Primary insomnia - F51.01??? Plan: * Treatment: 2.?Others? Notes: Stable, continue Trintellix 20mg daily for mood, anxiety. Patient educated on all medications including potential benefits, side effects, risks. Educated on proper dosing schedule and importance of compliance. ?? * Procedure Codes:?03087 BEHAV ASSMT W/SCORE & DOCD/STAND INSTRUMENT, G2211 VISIT COMPLEXITY INHERENT TO ONGOING CARE RELATED TO A PATIENT'S SINGLE, SERIOUS CONDITION OR A COMPLEX CONDITION, G8431 CLIN DEPRESSION SCREEN DOC * Follow Up:?6 Months (Reason: medication follow up) * Billing Information: * Visit Code:? 34155 OFFICE OUTPATIENT VISIT 15 MINUTES EXPANDED HISTORY AND EXAM/LOW MEDICAL DECISION MAKING. * Procedure Codes:? 17758 BEHAV ASSMT W/SCORE & DOCD/STAND INSTRUMENT. G2211 VISIT COMPLEXITY INHERENT TO ONGOING CARE RELATED TO A PATIENT'S SINGLE, SERIOUS CONDITION OR A COMPLEX CONDITION. G8431 CLIN DEPRESSION SCREEN DOC. * Sign off status: Completed true * Provider:?CHRISTIANO ANDERSON Date:? Generated for Александр wooten/Stevie/eTmaciesmsivakumar on:?12/04/2024 01:04 PM COMMISSIONING SPECIALIST History and Physical Notes * HPI (History of Present Illness) Category Sub-Category Detail Notes Category Not es History of Presenting Problem Anxiety with excessive worry-stable Here for follow up. No medication changes made last apt. Reports she is doing really well . Denies feeling hopeless or helpless, no suicidal ideation. Motivation is low, energy is low-secondary to chronic medical issues. Depression and anxiety are stable, it is not as near as bad as it used to be . No recent panic attacks. Sleep is fair, getting about 7-9 hours nightly. Appetite is good, still taking Mounjaro, has not lost weight. Depression Rates depression 2/1 0 with 10 being most severe. Denies SI. Suicidal ideation denies Psychosis no hx psychosis Mood lability no hx benoit Depression screening PHQ-9 Little inte rest or pleasure in doing things: Not at all Feeling down, depressed, or hopeless: Se veral days Trouble falling or staying asleep, or sl eeping too much: Not at all Feeling tired or having little energy: M ore than half the days Poor appetite or overeating: Several day s Feeling bad about yourself o r that you are a failure, or have let yourself or your family down: Not at all Trouble concentrating on thi ngs, such as reading the newspaper or watching television: Not at all Moving or speaking so slowly that other people could have noticed; or the opposite, being so fidgety or restless that you have been moving around a lot more than usual: Not at all Thoughts that you would be b heraclio off or of hurting yourself in some way: Not at all Intervention Depression Screening Findings: N egative Follow-Up for Depression: Mental health care management Additional Evaluation for Depression: Ps ychiatric interview and evaluation Name of the standardized too l used for adult depression screening:: Patient Health Questionnaire (PHQ-9) Depression Screening DUGLAS-7 (2018 Edition) Feelin g nervous, anxious, or on edge: Not at all [place]-Suicide Severity Rating Scale Suicide Risk (CSRS-screener) in the past one month Have you wished you were or wished you could go to sleep and not wake up?: No in the past one month Have y ou actually had any thoughts of killing yourself?: No Examination Category Sub-Category Detail Notes Category Not es Psychiatry Appearance: well-groomed Attitude: cooperative Psychomotor activity: within normal rang e Abnormal body movements: none Attention: good Degree of awareness of surroundings: wit hin normal limits Orientation: awake, alert and zhane ented x 3 Affect / mood: appropriate Speech / language: normal rate, volume, and articulation (RVR), clear and coherent Insight: good Judgement: good Thought process: intact Thought content: appropriate Perceptual disorders: no perceptual diso rder noted Suicidal ideation: none Homicidal ideation: none Delusions: no Hallucinations: no
[2024-12-04 13:12] LABS: Alveolar/Arterial O2 Gradient 122.1 mmHg; Base Excess ABG 3.4 mEq/l (+/-2.0); Fractional Inspired Oxygen 36 %; HCO3 ABG 28.3 mEq/l (22.0-26.0); Oxygen Content ABG 17.3 %vol (16.0-22.0); Oxygen Saturation ABG 96.4 % (95.0-100.0); Oxyhemoglobin 95.6 % THb (90.0-100.0); PCO2 ABG 44.4 mmHg (35.0-45.0); PO2 ABG 83.1 mmHg (80.0-100.0); PO2 FiO2 Ratio Arterial Blood 2.31 %; Total Hemoglobin 12.8 g/dL (12.0-18.0); pH ABG 7.423 (7.350-7.450)
[2024-12-04 13:13] LABS: Device NASAL CANNULA; Modified Allen's Test Pass; Site Drawn LEFT RADIAL
[2024-12-04] MEDS: methylPREDNISolone SOD SUCC 125 MG VIAL IV PUSH (13:19)
[2024-12-04 14:48] LABS: Prothrombin Time 13.4 Seconds (11.1-14.7)
[2024-12-04 14:49] LABS: Partial Thromboplastin Time 27.9 Seconds (22.3-36.8)
[2024-12-04 14:50] LABS: Lipase 111 U/L (23-300); Magnesium 2.5 mg/dL (1.6-2.3); Phosphorus 3.5 mg/dL (2.5-4.5)
[2024-12-04 15:01] LABS: NT Pro B Type Natriuretic Pept 158 pg/mL (19.9-100); Troponin I < 0.012 ng/mL (0.000-0.034)
[2024-12-04 15:09] LABS: Influenza A QL RT-PCR Negative (Negative); Influenza B QL RT-PCR Negative (Negative); RSV RNA, RT-PCR Negative (Negative); SARS-CoV-2 RNA PCR Negative (Negative)
[2024-12-04 15:30] LABS: D Dimer 1.17 ug/mL (<0.48)
[2024-12-04 15:37] LABS: Add Urine Microscopic? YES; Appearance Urine Clear (Clear); Bacteria Urine None Seen /hpf; Bilirubin Urine Negative (Negative); Blood Urine Negative (Negative); Color Urine Yellow (Yellow); Glucose Urine UA Trace mg/dL (Negative); Hyaline Casts Urine Present /lpf; Ketones Urine Negative (Negative); Leukocyte Esterase Ur Negative LEU/UL (Negative); Need Manual Microscopic Reviewed; Nitrate Urine Negative (Negative); Non Pathogenic Casts 0-2; Protein Urine 1+ mg/dL (Negative); RBC Urine 0-2 /hpf (0-2); Specific Grav Ur 1.014 (1.001-1.035); Squamous Epithelial Cell Urine None Seen /hpf (Few); Urobilinogen Urine 0.2 mg/dL (<2.0); WBC Urine 0-5 /hpf (0-3); pH Urine 7.5 (5.0-9.0)
--- NOTE | 2024-12-04 15:46 | ECG_ITS ---
Test Date: 2024-12-04 15:55:01 Measurements Intervals [place] Rate: 68 P: 44 MI: 215 QRS: -30 QRSD: 116 T: 83 QT: 427 QTc: 455 Interpretive Statements SINUS RHYTHM WITH FIRST DEGREE AV BLOCK MODERATE VOLTAGE CRITERIA FOR LVH, CONSIDER NORMAL VARIANT [MEETS CRITERIA IN ONE OF: R(aVL), S(V1), R(V5), R(V5/V6)+S(V1)] INTRAVENTRICULAR CONDUCTION DELAY POSSIBLE ANTERIOR MYOCARDIAL INFARCTION , OF INDETERMINATE AGE [30 ms Q WAVE IN V3/V4, OR R < 0.2 mV IN V4] MODERATE T-WAVE ABNORMALITY, CONSIDER LATERAL ISCHEMIA [-0.1+ mV T-WAVE IN I/aVL/V5/V6] Compared to ECG 12/04/2024 11:57:11 NO SIGNIFICANT CHANGES Electronically Signed On 12-04-2024 16:47:24 MARKETING CLERK by Mani King M.D.
[2024-12-04 16:23] LABS: Troponin I < 0.012 ng/mL (0.000-0.034)
[2024-12-04 17:29] LABS: Reflex Lactic Acid Yes or No Add Lactic
[2024-12-04 18:30] LABS: Lactic Acid 1.5 mmol/L (0.7-2.0)
[2024-12-04] MEDS: DOXYCYCLINE 100 MG/NS 100 ML 100 MG/100 ML BAG IVPB (18:58)
--- NOTE | 2024-12-04 18:59 | P.HP_ITS ---
H&P: HPI History of Present Illness Date/Time: 12/04/24 18:59 Chief Complaint: Shortness of Breath Narrative: 79 y/o F presents here with shortness of breath with PMH of CKD, anxiety/depression, hypothyroidism, diabetes, GERD, hypertension, hyperlipidemia, CHF, asthma, NICOLA, COPD, insomnia, former smoker, and restless leg syndrome. The patient presents here from home for further evaluation of shortness of br eath and increased work of breathing. The patient was initially seen on 11/24/2024 at [facility] for cough, congestion, and rigors. The patient tested positive for Flu A and she was diagnosed with pneumonia. The patient was offered admission, however she elected to be discharged home after her fever improved. She was discharged home on Augmentin, Azithromycin, Tessalon Perles, and an albuterol inhaler. She is returning today due to worsening shortness of breath and work of breathing. She also notes that she has had an increased oxygen requirement over the last several days. She typically wears 2-3L NC at night, but does not require it during the day. She is currently on/requiring 3- 4L NC 30/05. Shortness breath is accompanied by a dry cough, minimal congestion, and wheezing. She denies fever, chills, nausea, vomiting, chest pain, or body aches. She reports she has completed both of her antibiotic courses. She report that she has been using her rescue inhaler with minimal relief. She reports compliance with her daily inhalers. She has not been utilizing her home nebulizers, did not realize she should be using these. Initial VS at presentation: 98.6? F, HR 55, RR 18, 140/68, and 95% on 4L NC. ED workup showed: No leukocytosis, no anemia, normal coags, D-dimer 1.17, ABG showed a HCO3 of 28.3, otherwise unremarkable, no significant electrolyte derangements, creatinine 1.47 and GFR 34 (similar to previous on 11/24/2024), initial troponins negative x2, BNP 158. UA showed 1+ protein and trace glucose, otherwise unremarkable. Viral PCR negative. CXR showed clear lungs. Chest CTA showed no PE, no dissection or aneurysm dilation, right basilar infiltrate, and mild pulmonary congestion. Initial EKG showed sinus rhythm with first-degree AV block, rate 60, marked left axis deviation, intraventricular conduction delay, LVH and ST-T change, anterior MO of indeterminate age (when compared to previous, no significant changes). Review of Systems Review of Systems: All systems reviewed & are unremarkable except as noted in HPI and below [facility] Past Medical History Medical History (Updated 12/04/24 @ 22:35 by Jillian Tsai APRN) Primary insomnia Anemia Hx of thyroid cancer s/p total thyroidectomy Cardiac pacemaker in situ Chronic kidney disease Carpal tunnel syndrome Kidney stones Anxiety Depression Hypothyroidism Diabetes Arthritis Renal disease Hiatal hernia GERD (gastroesophageal reflux disease) Pneumonia HTN (hypertension) HLD (hyperlipidemia) CHF (congestive heart failure) Bronchitis Asthma NICOLA (obstructive sleep apnea) Chronic obstructive pulmonary disease RLS (restless legs syndrome) Surgical History Surgical History (Updated 12/04/24 @ 19:17 by Jillian Tsai APRN) History of cataract extraction History of total thyroidectomy Hx of elbow surgery bilateral ulnar release History of carpal tunnel release Hx of spinal surgery Hx of hysterectomy Hx of cholecystectomy Family History Family History Father Family history of heart disease in male family member before age 55 Family history of malignant neoplasm of brain Hypertension Pulmonary disease Mother Family history of heart disease in male family member before age 55 Family history of diabetes mellitus in first degree relative Social History Social History Social History: Surrogate medical decision maker: Neena Hazel, granddaughter. Code status: Full code. Smoking packs per day: 1 Smoking cigarettes per day: 20.0 Years smoked: 50 Smoking pack-years: 50.00 Smoking status: Former smoker Tobacco type: cigarettes Alcohol intake: never Substance use: never Substance use type: does not use Do You Feel Safe in your Home?: Yes Lack of Transportation: No Lack of Food: Never True Current Housing: I Have Housing Concerned About Future Housing: No Difficulty Paying Gas/Electric Bills: No Difficulty Paying for Meds: No Currently Unemployed: No Education: High School Diploma/GED Difficulty w/ Childcare or Family Care: No Living arrangements: alone Additional living arrangements comments: The patient lives in her own home in [place]. Occupation/Education: retired Additional occupation/education comments: Retired [employer]. Gender identity (if verbalized by the patient): Female 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: No Meds Home Medications and Allergies Home Medications ?Medication ?Instructions ?Recorded ?Confirmed ?Type amlodipine 5 mg tablet 5 mg PO DAILY 09/21/22 12/04/24 History oxybutynin chloride 10 mg 10 mg PO HS 09/21/22 12/04/24 History tablet,extended release 24 hr albuterol sulfate 2.5 mg/3 mL 2.5 mg (3 mL) inhalation Q4-6H PRN 08/17/23 12/04/24 Rx (0.083 %) solution for nebulization shortness of breath or wheezing #180 mL magnesium oxide 400 mg PO BID 09/15/23 12/04/24 History pregabalin 200 mg capsule 200 mg PO BID 09/15/23 12/04/24 History rosuvastatin 10 mg tablet 10 mg PO HS 09/15/23 12/04/24 History vortioxetine 20 mg tablet 20 mg PO DAILY 09/15/23 12/04/24 History (Trintellix) furosemide 20 mg tablet 20 mg PO DAILY 12/07/23 12/04/24 History dapagliflozin propanediol 10 mg 10 mg PO DAILY #90 tabs 01/23/24 12/04/24 Rx tablet Breztri Aerosphere 160 See Rx Instructions .Route 05/30/24 12/04/24 Rx mcg-9mcg-4.8mcg/actuation HFA .COMPLEX #10.7 grams aerosol inhaler (wepjznpbjd-euruooim-ovcrxenndv) albuterol sulfate 90 mcg/actuation 2 puff inhalation QID PRN 07/11/24 12/04/24 Rx aerosol inhaler shortness of breath or wheezing #8.5 grams isosorbide mononitrate 30 mg 30 mg PO DAILY 12/04/24 12/04/24 History tablet,extended release 24 hr levothyroxine 75 mcg tablet 75 mcg PO DAILY@0630 12/04/24 12/04/24 History (Unithroid) minoxidil 2.5 mg tablet 2.5 mg PO DAILY 12/04/24 12/04/24 History Allergies Allergy/AdvReac Type Severity Reaction Status Date / Time NILTON Inhibitors Allergy Unknown Angioedema Verified 12/04/24 11:49 lisinopril Allergy Dyspnea / Verified 12/04/24 11:49 SOB Vital Signs Vital Signs - 24 hr 12/04/24 11:50 12/04/24 11:59 12/04/24 12:18 Temperature 98.6 F 97.8 F Pulse Rate 55 L 69 57 L Respiratory Rate 18 14 Blood Pressure 140/68 160/47 H Pulse Oximetry 95 95 Oxygen Delivery Nasal Cannula Oxygen Flow Rate 4 12/04/24 12:20 12/04/24 12:26 12/04/24 13:02 Temperature Pulse Rate 55 L 66 Respiratory Rate 20 18 Blood Pressure 160/47 H 145/61 H Pulse Oximetry 96 96 97 Oxygen Delivery Nasal Cannula Oxygen Flow Rate 4 12/04/24 13:05 12/04/24 13:24 12/04/24 13:32 Temperature 98.5 F Pulse Rate 56 L 57 L 60 Respiratory Rate 16 18 21 H Blood Pressure 145/61 H 118/48 L Pulse Oximetry 100 99 Oxygen Delivery Oxygen Flow Rate 12/04/24 13:39 12/04/24 14:23 12/04/24 17:02 Temperature Pulse Rate 61 68 73 Respiratory Rate 18 13 18 Blood Pressure 102/49 L 138/56 L Pulse Oximetry 95 95 Oxygen Delivery Oxygen Flow Rate Exam Narrative: Const: General: comfortable and no acute distress Other: , female, ill-appearing, obese body habitus HENMT: Face/Nose/Sinus: Normal nares present Mouth: Yes moist mucous membranes Other: NC in place Eyes: General: appearance normal, both eyes and all related structures Sclera: sclerae normal Pupils: Equal, round and reactive pupils present EOM: EOMs intact bilaterally Resp: Other: loud inspiratory and expiratory wheeze. Faint bibasilar crackles. Mild conversational dyspnea. Cardio: Rate: regular rate Rhythm: regular rhythm Other: S1-S2 present without murmur, rub, ectopy GI: Other: Abdomen soft, nondistended, nontender. Skin: General skin exam: normal color and no rashes or lesions noted Wounds: no wounds Neuro: Speech: normal speech Motor exam (neuro): 5/5 motor strength present throughout Sensory Exam: normal sensation Other: A&O x4 Extrem: General: normal to inspection Psych: Mental Status: mental status grossly normal Affect: normal affect Other: Good insight and judgment, pleasant H&P: Results Labs Labs: Short CBC 12/04/24 Range/Units 12:29 WBC 6.7 (4.5-10.0) K/mm3 Hgb 12.7 (12.0-15.0) g/dL Hct 41.5 (37.0-47.0) % Plt Count 231 (150-375) k/mm3 BMP 12/04/24 12:29 Sodium 142 Potassium 4.4 Chloride 106 Carbon Dioxide 29 BUN 24 H Creatinine 1.47 H Glucose 106 Calcium 8.3 L Cardiac Enzymes 12/04/24 12/04/24 Range/Units 14:21 15:54 Troponin I < 0.012 < 0.012 (0.000-0.034) ng/mL Liver Function 12/04/24 Range/Units 12:29 Total Bilirubin 0.7 (0.2-1.3) mg/dL AST 26 (14-36) U/L ALT 14 (6-35) U/L Alkaline Phosphatase 59 (38-126) U/L Albumin 3.7 (3.5-5.1) g/dL Urine 12/04/24 Range/Units 15:08 Urine Color Yellow (Yellow) Urine Appearance Clear (Clear) Urine pH 7.5 (5.0-9.0) Ur Specific [place] 1.014 (1.001-1.035) Urine Protein 1+ H (Negative) mg/dL Urine Glucose (UA) Trace H (Negative) mg/dL Assessment and Plan Assessment and plan (1) Acute and chronic respiratory failure: Qualifiers: Respiratory failure complication: hypoxia Qualified Code(s): J96.21 - Acute and chronic respiratory failure with hypoxia Code(s): J96.20 - Acute and chronic respiratory failure, unspecified whether with hypoxia or hypercapnia Status: Acute Assessment and Plan: - CXR: Clear lungs - CTA chest: No pulmonary embolus. No dissection or aneurysmal dilatation. Right basilar infiltrate. Mild pulmonary congestion. - viral PCR negative, flu A positive on 11/24/2024 - pulmonology consulted, awaiting formal recs Suspect acute on chronic respiratory failure is multifactorial including pneumonia, COPD exacerbation, and sequela from recent influenza infection on 11/24. See respective sections. (2) Community acquired pneumonia: Qualifiers: Laterality: right Lung location: lower lobe of lung Qualified Code(s): J18.9 - Pneumonia, unspecified organism Code(s): J18.9 - Pneumonia, unspecified organism Status: Acute Assessment and Plan: - did not meet SIRS criteria. however blood cultures obtained on 12/04, follow. Lactic 1.5. - chest CTA showing right basilar infiltrate - risk factors and complicating factors: recent antibiotic courses, recent influenza A infection, COPD - started on HAP tx given recent failed ABX course: Cefepime, doxycycline p.o., vancomycin - MRSA PCR and sputum culture - add legionella antigen, pneumococcal antigen, Mycoplasma IgM - Viral PCR negative - CPT, vest b.i.d. as tolerated - supportive care: Tessalon Perles p.r.n. Mucinex veronica DuoNebs veronica Methylprednisolone IV veronica Tylenol p.r.n. - increasing supplemental O2 requirement: (3) COPD exacerbation: Code(s): J44.1 - Chronic obstructive pulmonary disease with (acute) exacerbation Status: Acute Assessment and Plan: - DuoNebs veronica - methylprednisone IV veronica - continue home inhalers: Bretzi 2 puffs twice daily (4) Chronic kidney disease: Qualifiers: Chronic kidney disease stage: unspecified stage Qualified Code(s): N18.9 - Chronic kidney disease, unspecified Code(s): N18.9 - Chronic kidney disease, unspecified Status: Chronic Assessment and Plan: - creatinine 1.47 and GFR 34, previously 1.45 and GFR 35 on 11/24/2024 - trend renal function - trend electrolytes, correct as needed (5) Diabetes: Qualifiers: Diabetes mellitus type: type 2 Diabetes mellitus detention insulin use: without intermodal dispatcher use Diabetes mellitus complication status: without complication Qualified Code(s): E11.9 - Type 2 diabetes mellitus without complications Code(s): E11.9 - Type 2 diabetes mellitus without complications Status: Chronic Assessment and Plan: - hypoglycemia protocol - POC blood glucose ACHS - home medication: dapagliflozin - correct regimen ordered - high dose TIDWM, based off BMI - A1C 5.9% on 11/21/24 (6) HTN (hypertension): Qualifiers: Hypertension type: unspecified Qualified Code(s): I10 - Essential (primary) hypertension Code(s): I10 - Essential (primary) hypertension Status: Chronic Assessment and Plan: - chronic, currently 138/56 - continue home medications: Amlodipine 5 mg daily, Imdur 30 mg daily - monitor (7) NICOLA on CPAP: Code(s): G47.33 - Obstructive sleep apnea (adult) (pediatric); Z99.89 - Dependence on other enabling machines and devices Status: Acute Assessment and Plan: - does not tolerate CPAP Plan MRSA negative, Vancomycin d/c'd. Diet: Heart healthy GI Prophylaxis: Not currently indicated DVT Prophylaxis: SCDs Lines: Peripheral Code Status: Full code Quality VTE Prophylaxis VTE prophylaxis: mechanical ordered Hospitalist MIPS Advance Care Plan I have confirmed that the patient's Advanced Care Plan is present, code status is documented, or surrogate decision maker is listed in patient medical record.: Yes Medication Reconciliation I have utilized all available resources to obtain, update and review the patients current medications (includes all prescriptions, OTC, herbals, cannabis, and nutritional supplements).: Yes
[2024-12-04 20:28] LABS: MRSA (PCR) NOT DETECTED (NOT DETECTE)
[2024-12-04] MEDS: CEFEPIME 2 GM/NS 50 ML 2 GM/50 ML BAG IVPB (20:41)
--- NOTE | 2024-12-04 22:03 | ADMGEN ---
This patient, Jacy Mills, was admitted to [facility] Surg Room 332-01. Patient/family oriented to hospital policies and general routines including ID bracelet, bed and alarms, visiting hours, pain management, procedures, bathroom and other care routines, personal items, smoking policy, room service/diet, and visiting hours. Information on how to activate the Rapid Response Team has been discussed. Patient/Family are encouraged to report perceived risks to care and to ask questions if they do not understand what they are told or what they should do.
[2024-12-04] MEDS: ACETAMINOPHEN 325 MG TABLET 650 MG PO (22:28)
[2024-12-04] MEDS: BENZONATATE 100 MG CAPSULE PO (22:28)
[2024-12-04] MEDS: MELATONIN 5 MG TABLET PO (22:28)
[2024-12-04] MEDS: guaiFENesin 12 HR 600 MG TABCR PO (22:28)
[2024-12-04] MEDS: IPRATROPIUM 0.5 MG/ALBUTEROL SULFATE 2.5 MG AMPUL.NEB 3 ML INHALATION (22:31)
[2024-12-04] MEDS: methylPREDNISolone SOD SUCC 125 MG VIAL 60 MG IV PUSH (23:30)
[2024-12-05] VITALS (15 sets, daily range): BP systolic 120–128; BP diastolic 45–67; PULSE 61–83; RESP 14–20; TEMP 36.3–36.6; O2SAT 91–96
[2024-12-05] MEDS: ONDANSETRON INJ 4 MG/2 ML VIAL IV PUSH (00:37)
[2024-12-05] MEDS: traZODone HCL 50 MG TABLET PO (01:00)
[2024-12-05] MEDS: IPRATROPIUM 0.5 MG/ALBUTEROL SULFATE 2.5 MG AMPUL.NEB 3 ML INHALATION ×4 (03:11→21:48)
[2024-12-05] MEDS: LEVOTHYROXINE SODIUM 75 MCG TABLET PO (05:46)
[2024-12-05] MEDS: methylPREDNISolone SOD SUCC 125 MG VIAL 60 MG IV PUSH ×4 (05:46→23:55)
[2024-12-05 06:03] LABS: Basophils Percent Auto 0.1 % (0.2-1.2); Hematocrit 40.9 % (37.0-47.0); Hemoglobin 12.3 g/dL (12.0-15.0); Immature Granulocyte Absolute 0.09 K/mm3 (0.00-0.031); Immature Granulocyte Percent A 1.2 % (0-0.5); Lymphocytes Absolute Auto 0.76 K/mm3 (0.9-3.2); Lymphocytes Percent Auto 10.4 % (18.3-44.2); Mean Corpuscular HGB Conc 30.1 g/dl (32-36); Mean Corpuscular Hemoglobin 27.4 pg (26-34); Mean Corpuscular Volume 91.1 fl (80-100); Mean Platelet Volume 10.6 fl (7.4-10.4); Monocytes Absolute Auto 0.1 K/mm3 (0.1-0.6); Monocytes Percent Auto 1.2 % (2.6-8.5); Neutrophils Absolute Auto 6.4 K/mm3 (1.3-6.7); Neutrophils Percent Auto 87.1 % (45.5-73.1); Platelet Count Result 236 k/mm3 (150-375); Red Blood Count 4.49 M/mm3 (4.2-5.4); Red Cell Distribution Width 14.5 % (11.5-14.5); White Blood Count 7.3 K/mm3 (4.5-10.0)
[2024-12-05 06:25] LABS: Anion Gap 8 mmol/L (4-12); Blood Urea Nitrogen 25 mg/dL (7-17); CRP < 0.5 mg/dL (<1.0); Calcium 8.6 mg/dL (8.4-10.2); Carbon Dioxide 28 mmol/L (22-30); Chloride 106 mmol/L (98-107); Estimated CRCL calculation 33 ml/min; Estimated Glomerular Filt Rate 36; Glucose 159 mg/dL (65-110); Potassium 4.9 mmol/L (3.4-5.0); Sodium 142 mmol/L (137-145)
[2024-12-05] MEDS: FLUTICASONE/UMECLIDIN/VILANTER 100-62.5-25 MCG ELLIPTA 1 PUFF INHALATION (07:21)
[2024-12-05 08:04] LABS: Glucose Point of Care 150 mg/dl (65-105)
[2024-12-05] MEDS: MAGNESIUM OXIDE 400 MG TABLET PO ×2 (08:33→17:11)
[2024-12-05] MEDS: EMPAGLIFLOZIN 25 MG TABLET BY MOUTH (08:33)
[2024-12-05] MEDS: amLODIPine BESYLATE 5 MG TABLET PO (08:33)
[2024-12-05] MEDS: ISOSORBIDE MONONITRATE 30 MG TAB.ER.24H PO (08:33)
[2024-12-05] MEDS: PREGABALIN (*CRX) 50 MG CAPSULE 200 MG PO ×2 (08:33→17:11)
[2024-12-05] MEDS: DOXYCYCLINE HYCLATE 100 MG TABLET PO ×2 (08:33→20:43)
[2024-12-05] MEDS: FUROSEMIDE 20 MG TABLET PO (08:33)
[2024-12-05] MEDS: guaiFENesin 12 HR 600 MG TABCR PO ×2 (08:35→20:43)
[2024-12-05] MEDS: CEFEPIME 2 GM/NS 50 ML 2 GM/50 ML BAG IVPB ×2 (08:36→20:49)
[2024-12-05] MEDS: minoxidiL 2.5 MG TABLET PO (09:58)
--- OUTSIDE RECORDS SUMMARY | 2024-12-05 10:30 | XMS_ITS | Clinical Summary ---
Author Organization [facility] Address [address], [place] [address] Phone Care Team Providers Care Yeast Pumper Name Role Phone Jn Velásquez MD Primary Care Provider [phone] Allergies Active Allergy Reactions Criticality Noted Date [...] 05/29/2020 Active ergocalciferol (VITAMIN D2) 1.25 MG (16385 UT) capsule Take 50,000 Units by mouth [...] tablet 06/27/2022 Active Blood Glucose Monitoring Suppl (Taglocity ULTRA 2) w/Device kit 05/28/2022 Active chlorthalidone [...] 11/26/2015 Influenza Vaccine (#1) 2024 Care Teams Yeast Pumper Relationship Specialty Start Date End Date Jn Velásquez MD [address] [place] [address] PCP - General Internal Medicine 06/18/20
--- OUTSIDE RECORDS SUMMARY | 2024-12-05 10:30 | XMS_ITS ---
Author Organization [facility] ousmane Address [address] [place] [address] Care Team Providers Care Mutual Funds Agent Name Role Phone zzzzMigration, zzzzProvider Unavailable Unav ailable REASON FOR VISIT EMR-Clive Encounters Encounter Location Date Provider Diagnosis [facility] [address] [address] [place] [address] 08/27/2023 zzzzProvider zzzzMigration Plan Of Treatment No Information Progress Notes * Jacy MILLS LDOB: [birth year] (79 yo F)Acc No.[id number]:08/27/2023 Patient:?Jacy MILLS :1945???Age:77 Y???Sex:Female Address:[address] [place], [address] Subjective: * Chief Complaints: * ???EMR-Clive * Medical History:? * Surgical History:? * Hospitalization/Major Diagno stic Procedure:? * Medications:? Objective: * Vitals:? * Physical Examination:? Assessment: Plan: * Treatment: * Procedure Codes:? * * Date:?
--- OUTSIDE RECORDS SUMMARY | 2024-12-05 10:30 | XMS_ITS | Encounter Summary ---
Author Organization [facility] Address [address] [place] [address] Phone Care Team Providers Care Railway Track Worker Name Role Phone Jn Velásquez MD Primary Care Provider [phone] Waqas De Leon MD Unavailable [phone] Waqas De Leon MD Unavailable [phone] Cortney Corona MD Unavailable [phone] Stephanie Morrissey MD Primary Care Provider [phone] Jn Velásquez MD Primary Care Provider [phone] Miscellaneous, Not In File Unavailable Unava ilable Daniel Go MD Unavailable [phone] James Cifuentes MD Unavailable [phone] Encounter Details Date Type Department Care Team [...] on file Legal Sex Female 7: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
--- OUTSIDE RECORDS SUMMARY | 2024-12-05 10:30 | XMS_ITS | Clinical Summary ---
Author Organization [facility] Address [address] [place] [address] Care Team Providers Care Animal Sitter Name Role Phone Waqas De Leon MD Unavailable [phone] Waqas De Leon MD Unavailable [phone] Cortney Corona MD Unavailable Jn Velásquez MD Primary Care Provider [phone] Miscellaneous, Not In File Unavailable Unava ilDaniel Mckeon MD Unavailable [phone] James Cifuentes MD Unavailable [phone] Allergies Active Allergy Reactions Criticality Noted Date [...] CDT): Pt dx a month ago with [place]'s disease (abnormal high-dose dexamethasone suppression test) and [...] Patient need to follow up with her it data architect Dr. Fitch at [facility] on 06/28 Acute pulmonary edema (CMS/HCC) [...] on room air- transition to torsemide per it data architect, add low dose potassium supplement. Continue to [...] Department Care Team Description 10/10/2024 2:15 PM AIRCRAFT INSTRUMENT TESTER Lab [facility] Endocrinology Metabolism and Lipid [address] [facility] 5th [place] [address] Interstitial pulmonary disease (CMS/HCC) (HCC) 10/10/2024 2:00 PM AIRCRAFT INSTRUMENT TESTER - 10/10/2024 11:59 PM AIRCRAFT INSTRUMENT TESTER Hospital Encounter [facility] of [address] [address] Interstitial pulmonary disease (CMS/HCC) (HCC) Discharge Disposition: Discharge to home or self care 10/10/2024 1:00 PM AIRCRAFT INSTRUMENT TESTER Office Visit [facility] Rheumatology [address] [place] [address] 5th [place] [address] Interstitial pulmonary disease (CMS/HCC) (HCC) (Primary Dx) 09/11/2024 5:33 PM AIRCRAFT INSTRUMENT TESTER - 09/11/2024 11:59 PM AIRCRAFT INSTRUMENT TESTER Hospital Encounter [facility] ([facility]) [address] [place] [address] Discharge Disposition: Discharge to home or self care 09/11/2024 4:44 PM AIRCRAFT INSTRUMENT TESTER - 09/11/2024 11:59 PM AIRCRAFT INSTRUMENT TESTER Hospital Encounter [facility] ([facility]) [address] [place] [address] Discharge Disposition: Discharge to home or self care 09/11/2024 4:42 PM AIRCRAFT INSTRUMENT TESTER - 09/11/2024 11:59 PM AIRCRAFT INSTRUMENT TESTER Hospital Encounter [facility] ([facility]) [address] [place] [address] Discharge Disposition: Discharge to home or self care 09/11/2024 4:41 PM AIRCRAFT INSTRUMENT TESTER - 09/11/2024 11:59 PM AIRCRAFT INSTRUMENT TESTER Hospital Encounter [facility] ([facility]) [address] [place] [address] Discharge Disposition: Discharge to home or self care 09/11/2024 4:40 PM AIRCRAFT INSTRUMENT TESTER - 09/11/2024 11:59 PM AIRCRAFT INSTRUMENT TESTER Hospital Encounter [facility] ([facility]) [address] [place] [address] Discharge Disposition: Discharge to home or self care from Last 3 Months Surgical History Surgery Date Site/Laterality Comments CHOLECYSTECTOMY Cholecystectomy THYROIDECTOMY 11/07/2014 - 11/06/2015 Thyroidectomy HYSTERECTOMY ANTERIOR CERVICAL DISCECTOMY Medical History Medical History Date Comments Hyperlipidemia Hyperlipidemia; Comments: EMB 04/04/2015 - Hypertension Hypertension Hx Other Medical chronic back pa in; Comments: EMB 04/04/2015 - Hx Other Medical KATE; Comments: EMB 04/04/2015 - Hx Other Medical carpal tunnel [...] Former Cigarettes 1 [phone] - 2020 Smokeless Tobacco: Never Tobacco Cessation:Counseling Given: Not [...] often do you attend chur ch or jainism services? Never 05/31/2023 Do you belong to any clubs o r organizations such as hinduism groups, unions, fraternal or athletic groups, or [...] place to sleep or slept in a [place] facility (including now)? No 05/31/2023 Personal Safety Answer Date Recorded Have you ever been in or are you currently in a harmful physical or emotional relationship or is someone making you feel afraid or unsafe? Denies 05/30/2023 Comments Unknown Sex and Gender Information Value Date Recorded Sex Assigned at Not on file Legal Sex Female 7:23 PM AIRCRAFT INSTRUMENT TESTER Gender Identity Not on file Sexual Orientation Not on file Obstetrics History Last Filed Vital Signs Vital Sign Reading Time Taken Comments Blood Pressure 123/61 10/10/2024 1:09 PM AIRCRAFT INSTRUMENT TESTER Pulse 70 10/10/2024 1:09 PM AIRCRAFT INSTRUMENT TESTER Temperature 36.7 ??C (98 ??F) 10/10/2024 1:09 PM AIRCRAFT INSTRUMENT TESTER Respiratory Rate 20 06/01/2023 11:31 AM CDT Oxygen Saturation 88% 08/10/2024 10:08 AM CDT Inhaled Oxygen Concentration - - Weight 106 kg (233 lb 9.6 oz) 10/10/2024 1:09 PM AIRCRAFT INSTRUMENT TESTER Height 156.2 cm (5' 1.5 ) 10/10/2024 1:09 PM AIRCRAFT INSTRUMENT TESTER Body Mass Index 43.42 10/10/2024 1:09 PM AIRCRAFT INSTRUMENT TESTER Plan of Treatment Health Maintenance Due Date Last Done Comments Depression Screening 1945 Osteoporosis Screening-Bone Density Scan 1945 Hepatitis B Screening 1965 Lung Cancer Screening 1997 Zoster Vaccine (1 of 2) 1997 Well Visit 65+ 2012 Pneumococcal vaccine 65+ (2 of 2 - PPSV23 or PCV20) 01/21/2016 11/26/2015, 11/07/2009 Fall Risk Assessment 06/01/2024 06/01/2023 Covid-19 Vaccine (3 - season) 2024, 01/23/2021 Influenza Vaccine (#1) 2024 08/07/2021, 2019 DTaP/Tdap/Td Vaccine (2 - Td or Tdap) 02/04/20311 Breast Cancer Screening-Mammogram Discontinued 014 Hepatitis C Screening Completed 08/10/2024 Procedures Procedure Name Priority Date/Time Associated Diagnosis Comments RHEUMATOID FACTOR Routine 10/10/2024 2:0 0 PM AIRCRAFT INSTRUMENT TESTER Interstitial pulmonary disease (CMS/HCC) (HCC) KATHY ANTIBODY EVALUATION WITH REFLEX Routine 10/10/2024 2:00 PM AIRCRAFT INSTRUMENT TESTER Interstitial pulmonary disease (CMS/HCC) (HCC) ERYTHROCYTE SEDIMENTATION RATE Routine 10/10/2024 2:00 PM AIRCRAFT INSTRUMENT TESTER Interstitial pulmonary disease (CMS/HCC) (HCC) JOSE QUALITATIVE WITH REFLEX TO JOSE QUANTITATIVE Routine 10/10/2024 2:00 PM AIRCRAFT INSTRUMENT TESTER Interstitial pulmonary disease (CMS/HCC) (HCC) ALDOLASE Routine 10/10/2024 2:00 PM AIRCRAFT INSTRUMENT TESTER Interstitial pulmonary disease (CMS/HCC) (HCC) COMPREHENSIVE METABOLIC PANEL Routine 10/10/2024 2:00 PM AIRCRAFT INSTRUMENT TESTER Interstitial pulmonary disease (CMS/HCC) (HCC) CREATINE KINASE (CK), TOTAL Routine 10/10/2024 2:00 PM AIRCRAFT INSTRUMENT TESTER Interstitial pulmonary disease (CMS/HCC) (HCC) PHOSPHORUS Routine 10/10/2024 2:00 PM AIRCRAFT INSTRUMENT TESTER Interstitial pulmonary disease (CMS/HCC) (HCC) URIC ACID Routine 10/10/2024 2:00 PM AIRCRAFT INSTRUMENT TESTER Interstitial pulmonary disease (CMS/HCC) (HCC) CRP (ACUTE PHASE) Routine 10/10/2024 2:0 0 PM AIRCRAFT INSTRUMENT TESTER Interstitial pulmonary disease (CMS/HCC) (HCC) CT BODY OUTSIDE REFERENCE Routine 09/11/2024 5:34 PM AIRCRAFT INSTRUMENT TESTER CT BODY OUTSIDE REFERENCE Routine 09/11/2024 4:44 PM AIRCRAFT INSTRUMENT TESTER CT BODY OUTSIDE REFERENCE Routine 09/11/2024 4:42 PM AIRCRAFT INSTRUMENT TESTER CT BODY OUTSIDE REFERENCE Routine 09/11/2024 4:41 PM AIRCRAFT INSTRUMENT TESTER CT BODY OUTSIDE REFERENCE Routine 09/11/2024 4:40 PM AIRCRAFT INSTRUMENT TESTER HEPATITIS PANEL, ACUTE Routine 12:01 PM CDT Interstitial pulmonary disease (CMS/HCC) (HCC) from Last 3 Months or Most Recently Relevant to Health Maintenance Results * (ABNORMAL) JOSE ab ql w/rflx to JOSE qn (10/10/2024 2:00 PM AIRCRAFT INSTRUMENT TESTER) JOSE Positive 1:80 Comment: Interpretive Data Normal [...] revised on 2020. JOSE, quant 1:80 titer [facility] JOSE, interp Speckled(A) [facility] Blood 10/10/2024 2:00 PM AIRCRAFT INSTRUMENT TESTER 10/10/2024 2:39 PM AIRCRAFT INSTRUMENT TESTER us Zarina Carroll MD LAB BLOOD ORDERABLES Final Resul t [facility] [place] [address] * KATHY ab eval w/reflex (10/10/2024 2:00 PM AIRCRAFT INSTRUMENT TESTER) KATHY ab Negative Negative Comment: Interpretive Data Positive Screens will be reflexed to specific testing for Antibodies against the following antigens: Nancy-1 Ab, SCRAP SHEAR OPERATOR Ab, Scl-70 Ab, Castillo Ab, SS-A/Ro Ab, and SS- B/La Ab. Further testing for dsDNA, Centromere, or Ribosomal P antibodies is suggested in patient with a positive screen and negative specific antibodies. Current interpretive data was last revised on 2023. Blood 10/10/2024 2:00 PM AIRCRAFT INSTRUMENT TESTER 10/10/2024 2:39 PM AIRCRAFT INSTRUMENT TESTER Zarina Carroll MD LAB BLOOD ORDERABLES Final Resul t Performing Organization Address [facility] Co de Phone Number [facility] [place] [address] * (ABNORMAL) Aldolase (10/10/2024 2:00 PM AIRCRAFT INSTRUMENT TESTER) Aldolase 13.1(H) 0.1 - 8.0 Units/L Blood 10/10/2024 2:00 PM AIRCRAFT INSTRUMENT TESTER 10/10/2024 2:39 PM AIRCRAFT INSTRUMENT TESTER Zarina Carroll MD LAB BLOOD ORDERABLES Final Resul t Performing Organization Address [facility] de Phone Number [facility] Department [place] [address] * Erythrocyte sedimentation rate (10/10/2024 2:00 PM AIRCRAFT INSTRUMENT TESTER) Erythrocyte sedimentation rate 23 1 - 30 mm/hr Comment:Testing performed by : [facility], [place]., [address] Blood 10/10/2024 2:00 PM AIRCRAFT INSTRUMENT TESTER 10/10/2024 2:39 PM AIRCRAFT INSTRUMENT TESTER Zarina Carroll MD LAB BLOOD ORDERABLES Final Resul t Performing Organization Address [facility] de Phone Number [facility] Department [place] [address] * Rheumatoid factor (10/10/2024 2:00 PM AIRCRAFT INSTRUMENT TESTER) Rheumatoid factor, quant 15.0 0.1 - 15.0 IUnits/mL Blood 10/10/2024 2:00 PM AIRCRAFT INSTRUMENT TESTER 10/10/2024 2:39 PM AIRCRAFT INSTRUMENT TESTER Zarina Carroll MD LAB BLOOD ORDERABLES Final Resul t [facility] [place] [address] * (ABNORMAL) CRP (acute phase) (10/10/2024 2:00 PM AIRCRAFT INSTRUMENT TESTER) C-Reactive Protein, Acute 5.6(H) <5.0 mg/L [facility] Blood 10/10/2024 2:00 PM AIRCRAFT INSTRUMENT TESTER 10/10/2024 3:21 PM AIRCRAFT INSTRUMENT TESTER Zarina Carroll MD LAB BLOOD ORDERABLES Final Resul t Performing Organization Address [facility] Co de Phone Number [facility] CORE LAB [facility] * Uric acid (10/10/2024 2:00 PM AIRCRAFT INSTRUMENT TESTER) Pathologist [facility] Uric Acid 7.4 3.1 - 7.7 mg/dL [facility] Blood 10/10/2024 2:00 PM AIRCRAFT INSTRUMENT TESTER 10/10/2024 3:21 PM AIRCRAFT INSTRUMENT TESTER Zarina Carroll MD LAB BLOOD ORDERABLES Final Resul t [facility] CORE [facility] * Phosphorus (10/10/2024 2:00 PM AIRCRAFT INSTRUMENT TESTER) Phosphorus 3.2 2.3 - 4.5 mg/dL [facility] Blood 10/10/2024 2:00 PM AIRCRAFT INSTRUMENT TESTER 10/10/2024 3:21 PM AIRCRAFT INSTRUMENT TESTER Zarina Carroll MD LAB BLOOD ORDERABLES Final Resul t [facility] CORE [facility] * Creatine kinase (CK), total (10/10/2024 2:00 PM AIRCRAFT INSTRUMENT TESTER) CK, Total 156 26 - 308 IU/L [facility] Blood 10/10/2024 2:00 PM AIRCRAFT INSTRUMENT TESTER 10/10/2024 3:21 PM AIRCRAFT INSTRUMENT TESTER Zarina Carroll MD LAB BLOOD ORDERABLES Final Resul t Performing Organization Address [facility] Co de Phone Number [facility] CORE LAB [facility] * (ABNORMAL) Comprehensive metabolic panel (10/10/2024 2:00 PM AIRCRAFT INSTRUMENT TESTER) Total Protein 7.7 6.1 - 8.4 g/dL [...] [facility] Blood 10/10/2024 2:00 PM AIRCRAFT INSTRUMENT TESTER 10/10/2024 3:21 PM AIRCRAFT INSTRUMENT TESTER Result [facility] Zarina Carroll MD LAB BLOOD ORDERABLES Final Resul t Performing Organization Address [facility] Co de Phone Number [facility] CORE [facility] * CT Body Outside Reference (09/11/2024 5:34 PM AIRCRAFT INSTRUMENT TESTER) Impressions RAD_PACS[facility] - 09/11/2024 5:34 PM AIRCRAFT INSTRUMENT TESTER These images are for Reference purposes only and have not been reviewed by [facility] Radiology. ??There will be no report generated by a [facility] Radiologist. Narrative [facility] - 09/11/2024 5:34 PM AIRCRAFT INSTRUMENT TESTER EXAMINATION: ??Images For Reference Purposes Only Zarina Carroll MD IMG CT PROCEDURES Final Result Performing Organization Address [facility] de Phone Number [email or web address] * CT Body Outside Reference (09/11/2024 4:44 PM AIRCRAFT INSTRUMENT TESTER) Impressions [facility] - 09/11/2024 4:44 PM AIRCRAFT INSTRUMENT TESTER These images are for Reference purposes only and have not been reviewed by [facility]. ??There will be no report generated by a [facility] Radiologist. Narrative [facility] - 09/11/2024 4:44 PM AIRCRAFT INSTRUMENT TESTER EXAMINATION: ??Images For Reference Purposes Only Zarina Carroll MD IMG CT PROCEDURES Final Result Performing Organization Address [facility] de Phone Number [email or web address] * CT Body Outside Reference (09/11/2024 4:42 PM AIRCRAFT INSTRUMENT TESTER) Impressions [facility] - 09/11/2024 4:42 PM AIRCRAFT INSTRUMENT TESTER These images are for Reference purposes only and have not been reviewed by [facility]. ??There will be no report generated by a [facility] Radiologist. Narrative [facility]_P[facility] - 09/11/2024 4:42 PM AIRCRAFT INSTRUMENT TESTER EXAMINATION: ??Images For Reference Purposes Only Zarina Carroll MD IMG CT PROCEDURES Final Result Performing Organization Address [facility] de Phone Number [email or web address] * CT Body Outside Reference (09/11/2024 4:41 PM AIRCRAFT INSTRUMENT TESTER) Impressions [facility] - 09/11/2024 4:41 PM AIRCRAFT INSTRUMENT TESTER These images are for Reference purposes only and have not been reviewed by [facility]. ??There will be no report generated by a [facility] Radiologist. Narrative [facility] - 09/11/2024 4:41 PM AIRCRAFT INSTRUMENT TESTER EXAMINATION: ??Images For Reference Purposes Only Zarina Carroll MD IM CT PROCEDURES Final Result Performing Organization Address [facility] de Phone Number [email or web address] * CT Body Outside Reference (09/11/2024 4:40 PM AIRCRAFT INSTRUMENT TESTER) Impressions [facility] - 09/11/2024 4:40 PM AIRCRAFT INSTRUMENT TESTER These images are for Reference purposes only and have not been reviewed by [facility]. ??There will be no report generated by a [facility] Radiologist. Narrative RAD_PACS_[facility] - 09/11/2024 4:40 PM AIRCRAFT INSTRUMENT TESTER EXAMINATION: ??Images For Reference Purposes Only Zarina Carroll MD IMG CT PROCEDURES Final Result Performing Organization Address [facility] de Phone Number [email or web address] * Hepatitis panel, acute Blood (08/10/2024 12:01 PM CDT) Hep A IgM Nonreactive Nonreactive Hep B core IgM Nonreactive Nonreactive [facility] Hep C Ab Nonreactive Nonreactive [facility] Comment:Antibodies to HCV no t detected. Does NOT exclude the possibility of recent exposure to HCV. Current interpretive data was last revised on 22 HepBsAg Nonreactive Nonreactive [facility] Blood 08/10/2024 12:0 1 PM CDT 08/10/2024 2:23 PM CDT us Zarina Carroll MD LAB MICROBIOLOGY - GENERAL ORDER TATO Final Result [facility] [place] [address] from Last 3 Months or Most Recently Relevant to Health Maintenance Insurance MEDICARE SOLUTIONS IDPA IDPA MEDICARE [employer] Member Subscriber Plan / Payer ( fective 2021-Present) Name:GeneJacy Relation to Subscriber:Self Name:Jacy [place] Payer ID:[id number] (NAIC) Type:UHC MEDICARE Address: [place] [id number] [facility] MEDICARE [employer] MEDICARE SOLUTIONS IDPA MEDICARE SOLUTIONS IDPA Advance Directives For more information, please contact: [phone] * Full Code (Latest Code Status on File) Date Activated Date Inactivated Comments 05/30/2023 2:42 AM 06/01/2023 6:25 PM * Full Code Date Activated Date Inactivated Comments 05/30/2023 12:31 AM 05/30/2023 2:42 AM * Full Code Date Activated Date Inactivated Comments 05/05/2022 2:33 PM 05/14/2022 7:09 PM Care Teams Animal Sitter Relationship Specialty Start Date End Date Jn Velásquez MD PCP - General Family Medicine 05/29/23 Waqas De Leon MD Internal Medicine 11/20/21 Waqas De Leon MD Internal Medicine 06/06/19 Cortney Corona MD Referring Physician Surgery 05/14/22 Miscellaneous, Not In File 05/31/23 Daniel Go MD [address] [place] [address] Consulting Physician Interventional Cardiology 05/31/23 [place] [address] [facility] [address] [place] [address] Consulting Physician Pulmonary Disease 05/31/23
--- OUTSIDE RECORDS SUMMARY | 2024-12-05 10:30 | XMS_ITS | Referral Summary ---
Author Organization [facility] Address [address] [place] [address] Care Team Providers Care Butcher Name Role Phone Waqas De Leon MD Unavailable [phone] Waqas De Leon MD Unavailable [phone] Cortney Corona MD Unavailable Jn Velásquez MD Primary Care Provider [phone] Miscellaneous, Not In File Unavailable Unava ilDaniel Mckeon MD Unavailable [phone] James Cifuentes MD Unavailable Encounters Date Type Department Care Team Description 10/10/2024 2:00 PM CHILD CARE DEVELOPMENT SPECIALIST - 10/10/2024 11:59 PM CHILD CARE DEVELOPMENT SPECIALIST Hospital Encounter [address] [address] Interstitial pulmonary disease (CMS/HCC) (HCC) Discharge Disposition: Discharge to home or self care 10/10/2024 2:15 PM CHILD CARE DEVELOPMENT SPECIALIST Lab [facility] Endocrinology Metabolism and Lipid [address] [place] [address] 5th [place] [address] [place] [address] Interstitial pulmonary disease (CMS/HCC) (HCC) 10/10/2024 1:00 PM CHILD CARE DEVELOPMENT SPECIALIST Office Visit [facility] Rheumatology [facility] 5th [place] [address] [place] [address] Interstitial pulmonary disease (CMS/HCC) (HCC) (Primary Dx) 09/11/2024 5:33 PM CHILD CARE DEVELOPMENT SPECIALIST - 09/11/2024 11:59 PM CHILD CARE DEVELOPMENT SPECIALIST Hospital Encounter [facility] ([facility]) [address] [place] [address] Discharge Disposition: Discharge to home or self care 09/11/2024 4:44 PM CHILD CARE DEVELOPMENT SPECIALIST - 09/11/2024 11:59 PM CHILD CARE DEVELOPMENT SPECIALIST Hospital Encounter [facility] ([facility]) [address] [place] [address] Discharge Disposition: Discharge to home or self care 09/11/2024 4:42 PM CHILD CARE DEVELOPMENT SPECIALIST - 09/11/2024 11:59 PM CHILD CARE DEVELOPMENT SPECIALIST Hospital Encounter [facility] ([facility]) [address] [place] [address] Discharge Disposition: Discharge to home or self care 09/11/2024 4:41 PM CHILD CARE DEVELOPMENT SPECIALIST - 09/11/2024 11:59 PM CHILD CARE DEVELOPMENT SPECIALIST Hospital Encounter [facility] ([facility]) [address] [place] [address] Discharge Disposition: Discharge to home or self care 09/11/2024 4:40 PM CHILD CARE DEVELOPMENT SPECIALIST - 09/11/2024 11:59 PM CHILD CARE DEVELOPMENT SPECIALIST Hospital Encounter [facility] ([facility]) [address] [place] [address] Discharge Disposition: Discharge to home or self care from Last 3 Months Allergies Active Allergy [...] 4 (four) hours as needed for pain 07/20/202 2 Active amLODIPine (NORVASC) 5 mg tabletIndication [...] Patient need to follow up with her mixing and dispensing supervisor Dr. Fitch at [facility] on 06/28 Acute pulmonary edema (CMS/HCC) 05/18/2022 [...] on room air- transition to torsemide per mixing and dispensing supervisor, add low dose potassium supplement. Continue to [...] often do you attend chur ch or yarsani services? Never 05/31/2023 Do you belong to [...] on file Legal Sex Female 7:23 PM CHILD CARE DEVELOPMENT SPECIALIST Gender Identity Not on file Sexual Orientation Not on file Last Filed Vital Signs Vital Sign Reading Time Taken Comments Blood Pressure 123/61 10/10/2024 1:09 PM CHILD CARE DEVELOPMENT SPECIALIST Pulse 70 10/10/2024 1:09 PM CHILD CARE DEVELOPMENT SPECIALIST Temperature 36.7 ??C (98 ??F) 10/10/2024 1:09 PM CHILD CARE DEVELOPMENT SPECIALIST Respiratory Rate 20 06/01/2023 11:31 AM CDT Oxygen Saturation 88% 08/10/2024 10:08 AM CDT Inhaled Oxygen Concentration - - Weight 106 kg (233 lb 9.6 oz) 10/10/2024 1:09 PM CHILD CARE DEVELOPMENT SPECIALIST Height 156.2 cm (5' 1.5 ) 10/10/2024 1:09 PM CHILD CARE DEVELOPMENT SPECIALIST Body Mass Index 43.42 10/10/2024 1:09 PM CHILD CARE DEVELOPMENT SPECIALIST Plan of Treatment Not on file Procedures Procedure Name Priority Date/Time Associated Diagnosis Comments RHEUMATOID FACTOR Routine 10/10/2024 2:0 0 PM CHILD CARE DEVELOPMENT SPECIALIST Interstitial pulmonary disease (CMS/HCC) (HCC) KATHY ANTIBODY EVALUATION WITH REFLEX Routine 10/10/2024 2:00 PM CHILD CARE DEVELOPMENT SPECIALIST Interstitial pulmonary disease (CMS/HCC) (HCC) ERYTHROCYTE SEDIMENTATION RATE Routine 10/10/2024 2:00 PM CHILD CARE DEVELOPMENT SPECIALIST Interstitial pulmonary disease (CMS/HCC) (HCC) JOSE QUALITATIVE WITH REFLEX TO JOSE QUANTITATIVE Routine 10/10/2024 2:00 PM CHILD CARE DEVELOPMENT SPECIALIST Interstitial pulmonary disease (CMS/HCC) (HCC) ALDOLASE Routine 10/10/2024 2:00 PM CHILD CARE DEVELOPMENT SPECIALIST Interstitial pulmonary disease (CMS/HCC) (HCC) COMPREHENSIVE METABOLIC PANEL Routine 10/10/2024 2:00 PM CHILD CARE DEVELOPMENT SPECIALIST Interstitial pulmonary disease (CMS/HCC) (HCC) CREATINE KINASE (CK), TOTAL Routine 10/10/2024 2:00 PM CHILD CARE DEVELOPMENT SPECIALIST Interstitial pulmonary disease (CMS/HCC) (HCC) PHOSPHORUS Routine 10/10/2024 2:00 PM CHILD CARE DEVELOPMENT SPECIALIST Interstitial pulmonary disease (CMS/HCC) (HCC) URIC ACID Routine 10/10/2024 2:00 PM CHILD CARE DEVELOPMENT SPECIALIST Interstitial pulmonary disease (CMS/HCC) (HCC) CRP (ACUTE PHASE) Routine 10/10/2024 2:0 0 PM CHILD CARE DEVELOPMENT SPECIALIST Interstitial pulmonary disease (CMS/HCC) (HCC) CT BODY OUTSIDE REFERENCE Routine 09/11/2024 5:34 PM CHILD CARE DEVELOPMENT SPECIALIST CT BODY OUTSIDE REFERENCE Routine 09/11/2024 4:44 PM CHILD CARE DEVELOPMENT SPECIALIST CT BODY OUTSIDE REFERENCE Routine 09/11/2024 4:42 PM CHILD CARE DEVELOPMENT SPECIALIST CT BODY OUTSIDE REFERENCE Routine 09/11/2024 4:41 PM CHILD CARE DEVELOPMENT SPECIALIST CT BODY OUTSIDE REFERENCE Routine 09/11/2024 4:40 PM CHILD CARE DEVELOPMENT SPECIALIST HEPATITIS PANEL, ACUTE Routine 12:01 PM CDT Interstitial pulmonary disease (CMS/HCC) (HCC) from Last 3 Months or Most Recently Relevant to Health Maintenance Results * (ABNORMAL) JOSE ab ql w/rflx to JOSE qn (10/10/2024 2:00 PM CHILD CARE DEVELOPMENT SPECIALIST) JOSE Positive 1:80 Comment: Interpretive Data Normal [...] revised on 2020. JOSE, quant 1:80 titer [facility] JOSE, interp Speckled(A) [facility] Blood 10/10/2024 2:00 PM CHILD CARE DEVELOPMENT SPECIALIST 10/10/2024 2:39 PM CHILD CARE DEVELOPMENT SPECIALIST us Zarina Carroll MD LAB BLOOD ORDERABLES Final Resul t [facility] [place] [address] * KATHY ab eval w/reflex (10/10/2024 2:00 PM CHILD CARE DEVELOPMENT SPECIALIST) Pathologist [facility] KATHY ab Negative Negative Comment: Interpretive Data Positive Screens will be reflexed to specific testing for Antibodies against the following antigens: Nancy-1 Ab, POLICE DEPARTMENT SECRETARY Ab, Scl-70 Ab, Castillo Ab, SS-A/Ro Ab, and SS- B/La Ab. Further testing for dsDNA, Centromere, or Ribosomal P antibodies is suggested in patient with a positive screen and negative specific antibodies. Current interpretive data was last revised on 2023. Blood 10/10/2024 2:00 PM CHILD CARE DEVELOPMENT SPECIALIST 10/10/2024 2:39 PM CHILD CARE DEVELOPMENT SPECIALIST Zarina Carroll MD LAB BLOOD ORDERABLES Final Resul t Performing Organization Address [facility] Co de Phone Number [facility] Department [place] [address] * (ABNORMAL) Aldolase (10/10/2024 2:00 PM CHILD CARE DEVELOPMENT SPECIALIST) Pathologist [facility] Aldolase 13.1(H) 0.1 - 8.0 Units/L Blood 10/10/2024 2:00 PM CHILD CARE DEVELOPMENT SPECIALIST 10/10/2024 2:39 PM CHILD CARE DEVELOPMENT SPECIALIST Zarina Carroll MD LAB BLOOD ORDERABLES Final Resul t [facility] Department of [employer] [place] [address] * Erythrocyte sedimentation rate (10/10/2024 2:00 PM CHILD CARE DEVELOPMENT SPECIALIST) Pathologist [facility] Erythrocyte sedimentation rate 23 1 - 30 mm/hr Comment:Testing performed by : [facility], [facility], [place]., [address] Blood 10/10/2024 2:00 PM CHILD CARE DEVELOPMENT SPECIALIST 10/10/2024 2:39 PM CHILD CARE DEVELOPMENT SPECIALIST Zarina Carroll MD LAB BLOOD ORDERABLES Final Resul t Performing Organization Address [facility] Co de Phone Number [facility] [place] [address] * Rheumatoid factor (10/10/2024 2:00 PM CHILD CARE DEVELOPMENT SPECIALIST) Rheumatoid factor, quant 15.0 0.1 - 15.0 IUnits/mL Blood 10/10/2024 2:00 PM CHILD CARE DEVELOPMENT SPECIALIST 10/10/2024 2:39 PM CHILD CARE DEVELOPMENT SPECIALIST Zarina Carroll MD LAB BLOOD ORDERABLES Final Resul t Performing Organization Address [facility] de Phone Number [facility] [place] [address] * (ABNORMAL) CRP (acute phase) (10/10/2024 2:00 PM CHILD CARE DEVELOPMENT SPECIALIST) C-Reactive Protein, Acute 5.6(H) <5.0 mg/L [facility] Blood 10/10/2024 2:00 PM CHILD CARE DEVELOPMENT SPECIALIST 10/10/2024 3:21 PM CHILD CARE DEVELOPMENT SPECIALIST Zarina Carroll MD LAB BLOOD ORDERABLES Final Resul t Performing Organization Address [facility] Co de Phone Number [facility] * Uric acid (10/10/2024 2:00 PM CHILD CARE DEVELOPMENT SPECIALIST) Uric Acid 7.4 3.1 - 7.7 mg/dL [facility] Blood 10/10/2024 2:00 PM CHILD CARE DEVELOPMENT SPECIALIST 10/10/2024 3:21 PM CHILD CARE DEVELOPMENT SPECIALIST Zarina Carroll MD LAB BLOOD ORDERABLES Final Resul t Performing Organization Address [facility] Co de Phone Number [facility] * Phosphorus (10/10/2024 2:00 PM CHILD CARE DEVELOPMENT SPECIALIST) Pathologist [facility] Phosphorus 3.2 2.3 - 4.5 mg/dL [facility] Blood 10/10/2024 2:00 PM CHILD CARE DEVELOPMENT SPECIALIST 10/10/2024 3:21 PM CHILD CARE DEVELOPMENT SPECIALIST Zarina Carroll MD LAB BLOOD ORDERABLES Final Resul t Performing Organization Address [facility] Co de Phone Number [facility] * Creatine kinase (CK), total (10/10/2024 2:00 PM CHILD CARE DEVELOPMENT SPECIALIST) Pathologist [facility] CK, Total 156 26 - 308 IU/L [facility] Blood 10/10/2024 2:00 PM CHILD CARE DEVELOPMENT SPECIALIST 10/10/2024 3:21 PM CHILD CARE DEVELOPMENT SPECIALIST Zarina Carroll MD LAB BLOOD ORDERABLES Final Resul t Performing Organization Address [facility] de Phone Number [facility] * (ABNORMAL) Comprehensive metabolic panel (10/10/2024 2:00 PM CHILD CARE DEVELOPMENT SPECIALIST) Pathologist [facility] Total Protein 7.7 6.1 - 8.4 g/dL [...] [facility] Blood 10/10/2024 2:00 PM CHILD CARE DEVELOPMENT SPECIALIST 10/10/2024 3:21 PM CHILD CARE DEVELOPMENT SPECIALIST us Zarina Carroll MD LAB BLOOD ORDERABLES Final Resul t Performing Organization Address [facility] Co de Phone Number [facility] * CT Body Outside Reference (09/11/2024 5:34 PM CHILD CARE DEVELOPMENT SPECIALIST) Impressions RAD_PACS_[facility] - 09/11/2024 5:34 PM CHILD CARE DEVELOPMENT SPECIALIST These images are for Reference purposes only and have not been reviewed by [facility] Radiology. ??There will be no report generated by a [facility] Radiologist. Narrative RAD_PACS_[facility] - 09/11/2024 5:34 PM CHILD CARE DEVELOPMENT SPECIALIST EXAMINATION: ??Images For Reference Purposes Only Zarina Carroll MD IMG CT PROCEDURES Final Result Performing Organization Address [facility] Co de Phone Number [facility]_PACS_[facility] * CT Body Outside Reference (09/11/2024 4:44 PM CHILD CARE DEVELOPMENT SPECIALIST) Impressions RAD_PACS_[facility] - 09/11/2024 4:44 PM CHILD CARE DEVELOPMENT SPECIALIST These images are for Reference purposes only and have not been reviewed by [facility] Radiology. ??There will be no report generated by a [facility] Radiologist. Narrative RAD_PACS_[facility] - 09/11/2024 4:44 PM CHILD CARE DEVELOPMENT SPECIALIST EXAMINATION: ??Images For Reference Purposes Only Zarina Carroll MD IMG CT PROCEDURES Final Result Performing Organization Address [facility] de Phone Number RAD_PACS_[facility] * CT Body Outside Reference (09/11/2024 4:42 PM CHILD CARE DEVELOPMENT SPECIALIST) Impressions [facility] - 09/11/2024 4:42 PM CHILD CARE DEVELOPMENT SPECIALIST These images are for Reference purposes only and have not been reviewed by [facility] Radiology. ??There will be no report generated by a [facility] Radiologist. Narrative RAD_PACS_[facility] - 09/11/2024 4:42 PM CHILD CARE DEVELOPMENT SPECIALIST EXAMINATION: ??Images For Reference Purposes Only Zarina Carroll MD IMG CT PROCEDURES Final Result Performing Organization Address [facility] Phone Number RAD_PACS[facility] * CT Body Outside Reference (09/11/2024 4:41 PM CHILD CARE DEVELOPMENT SPECIALIST) Impressions [facility] - 09/11/2024 4:41 PM CHILD CARE DEVELOPMENT SPECIALIST These images are for Reference purposes only and have not been reviewed by [facility] Radiology. ??There will be no report generated by a [facility] Radiologist. Narrative RAD_PACS[facility] - 09/11/2024 4:41 PM CHILD CARE DEVELOPMENT SPECIALIST EXAMINATION: ??Images For Reference Purposes Only Zarina Carroll MD IMG CT PROCEDURES Final Result Performing Organization Address [facility] de Phone Number [facility]_PACS[facility] * CT Body Outside Reference (09/11/2024 4:40 PM CHILD CARE DEVELOPMENT SPECIALIST) Impressions [facility] - 09/11/2024 4:40 PM CHILD CARE DEVELOPMENT SPECIALIST These images are for Reference purposes only and have not been reviewed by [facility] Radiology. ??There will be no report generated by a [facility] Radiologist. Narrative [facility]_PACS[facility] - 09/11/2024 4:40 PM CHILD CARE DEVELOPMENT SPECIALIST EXAMINATION: ??Images For Reference Purposes Only Zarina Carroll MD IMG CT PROCEDURES Final Result [facility]ACS[facility] * Hepatitis panel, acute Blood (08/10/2024 12:01 PM CDT) Hep A IgM Nonreactive Nonreactive Hep B core IgM Nonreactive Nonreactive [facility] Hep C Ab Nonreactive Nonreactive [facility] Comment:Antibodies to HCV no t detected. Does NOT exclude the possibility of recent exposure to HCV. Current interpretive data was last revised on 22 HepBsAg Nonreactive Nonreactive [facility] Blood 08/10/2024 12:0 1 PM CDT 08/10/2024 2:23 PM CDT Zarina Carroll MD LAB MICROBIOLOGY - GENERAL ORDER TATO Final Result [facility] [place] [address] from Last 3 Months or Most Recently Relevant to Health Maintenance Insurance MEDICARE SOLUTIONS IDPA IDPA MEDICARE SOLUTIONS IDPA MEDICARE SOLUTIONS IDPA MEDICARE SOLUTIONS IDPA Advance Directives For more information, please contact: [phone] * Full Code (Latest Code Status on File) Date Activated Date Inactivated Comments 05/30/2023 2:42 AM 06/01/2023 6:25 PM * Full Code Date Activated Date Inactivated Comments 05/30/2023 12:31 AM 05/30/2023 2:42 AM * Full Code Date Activated Date Inactivated Comments 05/05/2022 2:33 PM 05/14/2022 7:09 PM Care Teams Butcher Relationship Specialty Start Date End Date Jn Velásquez MD PCP - General Family Medicine 05/29/23 Waqas De Leon MD Internal Medicine 11/20/21 Waqas De Leon MD Internal Medicine 06/06/19 Cortney Corona MD Referring Physician Surgery 05/14/22 Miscellaneous, Not In File 05/31/23 Daniel Go MD [address] [place] [address] Consulting Physician Interventional Cardiology 05/31/23 [place] [address] [facility] [address] [place] [address] Consulting Physician Pulmonary Disease 05/31/23
--- OUTSIDE RECORDS SUMMARY | 2024-12-05 10:30 | XMS_ITS | Patient Health Record ---
Author Organization [facility] Address [address] [facility] [address] [place] [address] Support Name Relationship Address Phone Jacy Mills Guarantor Unknown [phone] Reason For Referral No Information Plan Of Treatment No Information
--- OUTSIDE RECORDS SUMMARY | 2024-12-05 10:30 | XMS_ITS ---
Author Organization [facility] Address [address] [facility] [address] [place] [address] Care Team Providers Care Impregnator Operator Name Role Phone zzzzMigration, zzzzProvider Unavailable Unav ailable REASON FOR VISIT EMR-Clive Encounters Encounter Location Date Provider Diagnosis [facility] [address] [facility] [address] [place] [address] 08/28/2023 zzzzProvider zzzzMigration Plan Of Treatment No Information Progress Notes * Jacy MILLS LDOB: [birth year] (79 yo F)Acc No.[id number]:08/28/2023 Patient:?Jacy MILLS :1945???Age:77 Y???Sex:Female Address:[address] [place], [address] Subjective: * Chief Complaints: * ???EMR-Clive * Medical History:? * Surgical History:? * Hospitalization/Major Diagno stic Procedure:? * Medications:? Objective: * Vitals:? * Physical Examination:? Assessment: Plan: * Treatment: * Procedure Codes:? * * Date:?
--- OUTSIDE RECORDS SUMMARY | 2024-12-05 10:30 | XMS_ITS | Patient Health Record ---
Author Organization [facility] [employer] Address [address] [place] [address] Care Team Providers Care Ict Trainer Name Role Phone Sandie Madrid Unavailable [phone] Migration, Provider Unavailable Unavailable Allergies Allergen (clinical drug ingredient) Drug/Non Drug Allergy documented on EMR Reaction Allergy Type Onset Date Status lisinopril Lisinopril Unknown Drug Allergy 11/17/2023 Acti ve Reason For Referral No Information Medications Medication SIG (Take, Route, Frequency, Duration) Notes Start Date End Date Status Farxiga 5 MG Oral 03/19/2024 Unknow n Allopurinol 100 MG Oral 03/19/2024 Unknown DAPAGLIFLOZIN PROPANEDIOL 10 MG TABLET *Reorder from [facility] for eRx and Interaction Alerts* 03/19/2024 Unknown MOUNJARO 12.5 MG/0.5 ML SUBCUTANEOUS PEN INJECTOR *Reorder from [facility] for eRx and Interaction Alerts* 03/19/2024 Unknown EUTHYROX 125 MCG TABLET *Reorder from [facility] for eRx and Interaction Alerts* 03/19/2024 Unknown Losartan Potassium 50 MG Oral 03/19/2024 Unknown Azelastine HCl 0.05 % Ophthalmic 03/19/2024 Unknown Atorvastatin Calcium 40 MG Oral 03/19/2024 Unknown amLODIPine Besylate 10 MG Oral 03/19/2024 Unknown Korlym 300 mg Oral 03/19/2024 Unkno wn oxyBUTYnin Chloride ER 10 MG Oral 03/19/2024 Unknown amLODIPine Besylate 5 MG Oral 03/19/2024 Unknown Unithroid 88 mcg Oral 03/19/2024 Un known Breo Ellipta 100-25 MCG/INH Inhalation 03/19/2024 Unknown Unithroid 75 mcg Oral 03/19/2024 Un known Furosemide 20 MG Oral 03/19/2024 Un known Mounjaro 10 MG/0.5ML Subcutaneous *Reorder fr om [facility] for eRx and Interaction Alerts* 03/19/2024 Unknown INSULIN SYRINGE/U-100/1ML/31G X 5/ 6 31G X 16 1 ML MISC *Reorder from [facility] for eRx and Interaction Alerts* 03/19/2024 Unknown rOPINIRole HCl 0.5 MG Oral 03/19/2024 Unknown Trintellix 20 MG 1 tablet Oral Once a day for 90 days 03/19/2024 Active Ergocalciferol 1.25 MG (40359 UT) Oral 03/19/2024 Unknown Rosuvastatin Calcium 10 MG Oral 03/19/2024 Unknown KERENDIA 10 MG TABLET *Reorder f [facility] for eRx and Interaction Alerts* 03/19/2024 Unknown ProAir HFA 108 (90 Base) MCG/ACT Inhalation 03/19/2024 Unknown Azithromycin 250 MG Oral 03/19/2024 Unknown PREGABALIN 200 MG CAPSULE *Reord er from [facility] for eRx and Interaction Alerts* 03/19/2024 Unknown Albuterol Sulfate (2.5 MG/3ML) 0.083% Inhalation 03/19/2024 Unknown hydrALAZINE HCl 50 MG Oral 03/19/2024 Unknown hydroCHLOROthiazide 25 MG Oral 03/19/2024 Unknown Atenolol 25 MG Oral 03/19/2024 Unkn own Breztri Aerosphere 160-9-4.8 MCG/ACT Inhalation *Reorder from [facility] for eRx and Interaction Alerts* 03/19/2024 Unknown Magnesium Oxide (Elemental) 400 MG Oral *Reorder from [facility] for eRx and Interaction Alerts* 03/19/2024 Unknown Farxiga 10 MG Oral 03/19/2024 Unkno wn Nitroglycerin 0.4 MG Sublingual 03/19/2024 Unknown Isosorbide Mononitrate ER 30 MG Oral 03/19/2024 Unknown dexAMETHasone 1 MG Oral 03/19/2024 Unknown Chlorthalidone 25 MG Oral 03/19/2024 Unknown Immunizations Vaccine Route Administration Date Status Comme nts Tdap Unknown 02/04/2021 Administered Pneumococcal conjugate PCV 7 Unknown 11/07/2009 Adminis tered Pneumococcal conjugate PCV 13 Unknown 11/26/2015 Admini stered Moderna Covid-19 Vaccine 1st dose Unknown 01/23/2021 Ad ministered Moderna Covid-19 Vaccine 1st dose Unknown 02/20/2021 Ad ministered Influenza, high-dose seasona l, quadrivalent, preservative free >65 yrs Unknown 07/18/2020 Administered Influenza, high-dose seasona l, quadrivalent, preservative free >65 yrs Unknown 08/07/2021 Administered Social History Tobacco Use: Social History Observation [...] Severe recurrent major depression without psychotic features (57236301) Major depressive disorder, 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 Problem Generalized anxiety disorder (62620666) Generalized anxiety disorder (F41.1) Active confirmed Problem Primary insomnia (7470610) Primary insomnia (F51.01) Active confirmed Encounters Encounter Location Date Provider Diagnosis [facility] [employer] [place] [id number] [facility] [place] [address] [address] 03/19/2024 Sandie Madrid Primary insomnia F51.01 ; Major depressive disorder, recurrent severe without psychotic features F33.2 and Generalized anxiety disorder F41.1 [facility] [place] [address] [facility] [address] [address] 07/24/2024 Sandie Mercy Major depressive disorder, recurrent severe without psychotic features F33.2 ; Generalized anxiety disorder F41.1 and Primary insomnia F51.01 [facility] [address] [facility] [address] [address] 03/24/2024 Provider Migration [facility] [place] [address] [address] 03/25/2024 Provider Migration Assessments Encounter Date Diagnosis (ICD Code) Assessment [...] 07/24/2024 Generalized anxiety disorder (ICD-10 - F41.1) 03/19/2024 Major depressive disorder, recurrent severe without psychotic features (ICD-10 - F33.2) 03/19/2024 Generalized anxiety disorder (ICD-10 - F41.1) 03/19/2024 Primary insomnia (ICD-10 - F51.01) 07/24/2024 Primary insomnia (ICD-10 - F51.01) 07/24/2024 Other Stable, continue Trintellix 20mg daily for mood, anxiety. Patient educated on all medications including potential benefits, side effects, risks. Educated on proper dosing schedule and importance of compliance. Plan Of Treatment Next Appt Details Provider Name:Sandie Madrid, 01/21/2025 11:30:00 AM, [address], [address], [place], [address], Insurance Providers Payer Name Payer Address Payer Phone Subscriber Number Group Number Insured Name Patient Relationship to Insured Coverage Start Date Coverage End Date [facility] Medicare Replacement/ Advantage - Ppo [address] [address] [place] [address] [id number] JESU HARLEY Self - patient is the insured [place] [address] [address] [place] [address] [id number] JESU HARLEY Self - patient is the insured Medical (General) History Medical History History ICD Code Problems: Abdominal bruit Anemia Anxiety Aortic valve regurgitation Arthritis Asthma Bacteremia Bradycardia Bruit Chronic kidney disease stage 2 Chronic kidney disease stage 3 Chronotropic incompetence Depressive disorder Dizziness Dyspnea Edema of lower extremity Excessive sweating Family history of Hypertension Fatigue Gastroesophageal reflux disease without esophagitis Generalized anxiety disorder History of substance abuse Hypertensive disorder Hypothyroidism Insomnia Left ventricular cardiac dysfunction Mitral valve prolapse Obesity Obstructive sleep apnea syndrome Pain in lower limb Peripheral vascular disease Primary insomnia Pulmonary hypertension Severe recurrent major depression withou t psychotic features Tobacco dependence syndrome Hypothyroid CKD CHF Surgical History Surgery Date(Month/Year) Removal of gallbladder (97105) Cosmetic surgery 11/07/1999
--- OUTSIDE RECORDS SUMMARY | 2024-12-05 10:31 | XMS_ITS | Encounter Summary ---
Author Organization [facility] Address [address] [place] [address] Phone Care Team Providers Care Hydraulic Mechanic Name Role Phone Jn Velásquez MD Primary Care Provider [phone] Waqas De Leon MD Unavailable [phone] Waqas De Leon MD Unavailable [phone] Cortney Corona MD Unavailable [phone] Stephanie Morrissey MD Primary Care Provider [phone] Jn Velásquez MD Primary Care Provider [phone] Miscellaneous, Not In File Unavailable Unava ilable Daniel Go MD Unavailable [phone] James Cifuentes MD Unavailable [phone] Encounter Details Date Type Department Care Team [...] often do you attend chur ch or orthodoxy services? Never 05/04/2022 Do you belong to any clubs o r organizations such as yazidi groups, unions, fraternal or athletic groups, or [...] place to sleep or slept in a custodial (including now)? No 05/04/2022 Comments Unknown Sex and Gender Information Value Date Recorded Sex Assigned at Not on file Legal Sex Female 7:23 PM SOURCING INTERN Gender Identity Not on file Sexual Orientation [...] documented as of this encounter Care Teams Hydraulic Mechanic Relationship Specialty Start Date End Date Jn [...] Daniel Go MD [address] [place] [address] Consulting Physician Interventional Cardiology 05/31/23 [place] [address] [facility] [address] [place] [address] Consulting Physician Pulmonary Disease 05/31/23 documented as of this encounter
--- OUTSIDE RECORDS SUMMARY | 2024-12-05 10:31 | XMS_ITS ---
Author Organization [facility] [employer] Address [address] [place] [address] Care Team Providers Care Over Hauler Helper Name Role Phone Sandie Madrid Unavailable [phone] Allergies Allergen (clinical drug ingredient) Drug/Non Drug Allergy documented on EMR Reaction Allergy Type Onset Date Status lisinopril Lisinopril Unknown Drug Allergy 11/17/2023 Acti ve REASON FOR VISIT follow up Medications Medication SIG (Take, Route, Frequency, Duration) Notes Start Date End Date Status Farxiga 5 MG Oral 03/19/2024 Unknow n Allopurinol 100 MG Oral 03/19/2024 Unknown DAPAGLIFLOZIN PROPANEDIOL 10 MG TABLET *Reorder from [facility] for eRx and Interaction Alerts* 03/19/2024 Unknown hydrALAZINE HCl 50 MG Oral 03/19/2024 Unknown Atenolol 25 MG Oral 03/19/2024 Unkn own amLODIPine Besylate 5 MG Oral 03/19/2024 Unknown Breo Ellipta 100-25 MCG/INH Inhalation 03/19/2024 Unknown Unithroid 75 mcg Oral 03/19/2024 Un known Furosemide 20 MG Oral 03/19/2024 Un known Mounjaro 10 MG/0.5ML Subcutaneous *[facility]* 03/19/2024 Unknown rOPINIRole HCl 0.5 MG Oral 03/19/2024 Unknown Ergocalciferol 1.25 MG (40844 UT) Oral 03/19/2024 Unknown Korlym 300 mg Oral 03/19/2024 Unkno wn oxyBUTYnin Chloride ER 10 MG Oral 03/19/2024 Unknown Unithroid 88 mcg Oral 03/19/2024 Un known Rosuvastatin Calcium 10 MG Oral 03/19/2024 Unknown KERENDIA 10 MG TABLET *Reorder f rom [facility] for eRx and Interaction Alerts* 03/19/2024 Unknown ProAir HFA 108 (90 Base) MCG/ACT Inhalation 03/19/2024 Unknown Azithromycin 250 MG Oral 03/19/2024 Unknown PREGABALIN 200 MG CAPSULE *Reord er from [facility] for eRx and Interaction Alerts* 03/19/2024 Unknown MOUNJARO 12.5 MG/0.5 ML SUBCUTANEOUS PEN INJECTOR *Reorder from [facility] for eRx and Interaction Alerts* 03/19/2024 Unknown Albuterol Sulfate (2.5 MG/3ML) 0.083% Inhalation 03/19/2024 Unknown hydroCHLOROthiazide 25 MG Oral 03/19/2024 Unknown Breztri Aerosphere 160-9-4.8 MCG/ACT Inhalation *Reorder from [facility] for eRx and Interaction Alerts* 03/19/2024 Unknown Farxiga 10 MG Oral 03/19/2024 Unkno wn EUTHYROX 125 MCG TABLET *Reorder from [facility] for eRx and Interaction Alerts* 03/19/2024 Unknown Losartan Potassium 50 MG Oral 03/19/2024 Unknown Azelastine HCl 0.05 % Ophthalmic 03/19/2024 Unknown Atorvastatin Calcium 40 MG Oral 03/19/2024 Unknown amLODIPine Besylate 10 MG Oral 03/19/2024 Unknown INSULIN SYRINGE/U-100/1ML/31G X 5/ 6 31G X 516 1 ML MISC *Reorder from [facility] for eRx and Interaction Alerts* 03/19/2024 Unknown Trintellix 20 MG 1 tablet Oral Once a day for 90 days 03/19/2024 Active Isosorbide Mononitrate ER 30 MG Oral 03/19/2024 Unknown dexAMETHasone 1 MG Oral 03/19/2024 Unknown Chlorthalidone 25 MG Oral 03/19/2024 Unknown Magnesium Oxide (Elemental) 400 MG Oral *Reorder from [facility] for eRx and Interaction Alerts* 03/19/2024 [...] Severe recurrent major depression without psychotic features (60566125) Major depressive disorder, 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 Problem Generalized anxiety disorder (78810029) Generalized anxiety disorder (F41.1) Active confirmed Problem Primary insomnia (9530307) Primary insomnia (F51.01) Active confirmed Encounters Encounter Location Date Provider Diagnosis [facility] [employer] [address] [place] [address] 07/24/2024 Sandie Madrid Major depressive disorder, recurrent [...] up Provider Name:Sandie Madrid, 01/21/2025 11:30:00 AM, [address], [facility] [address], [place], [address], Progress Notes * JESU HARLEY LDOB: [birth year] (78 yo F)Acc No.[id number]:07/24/2024 Patient:?JESU HARLEY Provider:?SANDIE MADRID PMHNP :1945???Age:78 Y???Sex:Female D ate:07/24/2024 Address:[address] [place] [address] [address], [place] [address] Subjective: * Chief Complaints: * ???1. Follow [...] used for adult depression screening:?Patient Health Questionnaire (PHQ-9).?[place]-Suicide Severity Rating Scale:?Suicide Risk (CSRS-screener)?in the past [...] CKD, CHF. * Surgical History:?Removal of gallbladder (18440) , Cosmetic surgery 11/07/1999. * Family History:?Mother: [...] TABLET , Notes to Pharmacist: *Reorder from [facility] for eRx and Interaction Alerts*, Unknown MOUNJARO 12.5 MG/0.5 ML SUBCUTANEOUS PEN INJECTOR , Notes to Pharmacist: *Reorder from [facility] for eRx and Interaction Alerts*, Unknown Farxiga 10 MG Tablet Oral , Unknown Breztri Aerosphere 160-9-4.8 MCG/ACT Aerosol Inhalation , Notes to Pharmacist: *Reorder from [facility] for eRx and Interaction Alerts*, Unknown hydroCHLOROthiazide 25 MG Tablet Oral , Unknown Albuterol Sulfate (2.5 MG/3ML) 0.083% Nebulization Solution Inhalation , Unknown PREGABALIN 200 MG CAPSULE , Notes to Pharmacist: *Reorder from [facility] for eRx and Interaction Alerts*, Unknown Azithromycin 250 MG Tablet Oral , Unknown ProAir HFA 108 (90 Base) MCG/ACT Aerosol Solution Inhalation , Unknown KERENDIA 10 MG TABLET , Notes to Pharmacist: *Reorder from [facility] for eRx and Interaction Alerts*, Unknown Rosuvastatin Calcium 10 MG Tablet Oral , Unknown Ergocalciferol 1.25 MG (46178 UT) Capsule Oral , Unknown rOPINIRole HCl [...] Subcutaneous , Notes to Pharmacist: *Reorder from [facility] for eRx and Interaction Alerts*, Unknown Furosemide 20 MG Tablet Oral , Unknown Farxiga 5 MG Tablet Oral , Unknown DAPAGLIFLOZIN PROPANEDIOL 10 MG TABLET , Notes to Pharmacist: *Reorder from [facility] for eRx and Interaction Alerts*, Unknown Allopurinol 100 MG Tablet Oral , Unknown Atenolol 25 MG Tablet Oral , Unknown hydrALAZINE HCl 50 MG Tablet Oral , Unknown Nitroglycerin 0.4 MG Tablet Sublingual Sublingual , Unknown Magnesium Oxide (Elemental) 400 MG Tablet Oral , Notes to Pharmacist: *Reorder from [facility] for eRx and Interaction Alerts*, Unknown dexAMETHasone 1 MG Tablet Oral , Unknown Isosorbide Mononitrate ER 30 MG Tablet Extended Release 24 Hour Oral , Unknown Chlorthalidone 25 MG Tablet Oral , Unknown INSULIN SYRINGE/U-100/1ML/31G X 5/ 6 31G X 5/16 1 ML MISC , Notes to Pharmacist: *Reorder from [facility] for eRx and Interaction Alerts*, Medication List [...] and importance of compliance. ?? * Procedure Codes:?93990 BEHAV ASSMT W/SCORE & DOCD/STAND INSTRUMENT, G2211 VISIT COMPLEXITY INHERENT TO ONGOING CARE RELATED TO A PATIENT'S SINGLE, SERIOUS CONDITION OR A COMPLEX CONDITION, G8431 CLIN DEPRESSION SCREEN DOC * Follow Up:?6 Months (Reason: medication follow up) * Billing Information: * Visit Code:? 22943 OFFICE OUTPATIENT VISIT 15 MINUTES EXPANDED HISTORY AND EXAM/LOW MEDICAL DECISION MAKING. * Procedure Codes:? 68253 BEHAV ASSMT W/SCORE & DOCD/STAND INSTRUMENT. G2211 VISIT COMPLEXITY INHERENT TO ONGOING CARE RELATED TO A PATIENT'S SINGLE, SERIOUS CONDITION OR A COMPLEX CONDITION. G8431 CLIN DEPRESSION SCREEN DOC. * Sign off status: Completed true * Provider:?CHRISTIANO ANDERSON Date:? Generated for Александр wooten/Stevie/eTmaciesmsivakumar on:?12/05/2024 10:10 AM CASINO ATTENDANT History and Physical Notes * HPI (History [...] anxious, or on edge: Not at all [place]-Suicide Severity Rating Scale Suicide Risk (CSRS-screener) in [...]
--- OUTSIDE RECORDS SUMMARY | 2024-12-05 10:31 | XMS_ITS | Clinical Summary ---
Author Organization [facility] Address [facility]. [place], [place] [address] [place] [address] Care Team Providers Care Direct Marketing Intern Name Role Phone Unavailable Primary Care Provider [...]
--- OUTSIDE RECORDS SUMMARY | 2024-12-05 10:31 | XMS_ITS ---
Author Organization [facility] [employer] Address [address] [place] [address] Care Team Providers Care Sample Carrier Name Role Phone Sandie Madrid Unavailable [phone] Migration, Provider Unavailable Unavailable Allergies Allergen (clinical drug ingredient) Drug/Non Drug Allergy documented on EMR Reaction Allergy Type Onset Date Status lisinopril Lisinopril Unknown Drug Allergy 11/17/2023 Acti ve REASON FOR VISIT EMR-Clive Medications Medication SIG (Take, Route, Frequency, Duration) Notes Start Date End Date Status Mounjaro 5 MG/0.5ML Subcutaneous *Reorder fro [facility] for eRx and Interaction Alerts* 03/19/2024 Active Phentermine HCl 37.5 MG Oral 03/19/2024 Active Combivent Respimat 20-100 MCG/ACT Inhalation 03/19/2024 Active QUEtiapine Fumarate 100 MG Oral 03/19/2024 Active Unithroid 88 mcg Oral 03/19/2024 Ac tive Nitroglycerin 0.4 MG Sublingual 03/19/2024 Active DAPAGLIFLOZIN PROPANEDIOL 10 MG TABLET *[facility]* 03/19/2024 Active MOUNJARO 12.5 MG/0.5 ML SUBCUTANEOUS PEN INJECTOR *[facility] Interaction Alert[facility]* 03/19/2024 Active Minoxidil 2.5 mg Oral 03/19/2024 Ac tive EUTHYROX 125 MCG TABLET *[facility] Interaction Alerts* 03/19/2024 Active [...] MG Oral 03/19/2024 Active Ergocalciferol 1.25 MG (34781 UT) Oral 03/19/2024 Active Furosemide 20 MG Oral 03/19/2024 Ac tive Magnesium Oxide (Elemental) 400 MG Oral *Reorder from [facility] for eRx and Interaction Alerts* 03/19/2024 Active PREGABALIN 200 MG CAPSULE *Reord er from [facility] for eRx and Interaction Alerts* 03/19/2024 [...] Mounjaro 10 MG/0.5ML Subcutaneous *[facility] Interaction Alert[facility]* 03/19/2024 Active Aluitrkr-Twtfoegvu-Klexrn th 3.5-45097-5.1 Ophthalmic 03/19/2024 Active Isosorbide Mononitrate ER 30 [...] KERENDIA 10 MG TABLET *[facility] Interaction Alert[facility]* 03/19/2024 Active Ozempic (0.25 or 0.5 MG/DOSE) 2 MG/3ML Subcutaneous *Pick [facility]form [facility] for eRX* 03/19/2024 Active Azithromycin 500 MG Oral 03/19/2024 Active predniSONE 10 MG Oral 03/19/2024 Ac tive Mounjaro 2.5 MG/0.5ML Subcutaneous *[facility] and Interaction Alert[facility]* 03/19/2024 Active Breztri Aerosphere 160-9-4.8 MCG/ACT Inhalation *[facility] Interaction Alert[facility]* 03/19/2024 Active dexAMETHasone 6 MG Oral 03/19/2024 Active INSULIN SYRINGE/U-100/1ML/31G X 5/1 6 31G X 5/16 1 ML MISC *[facility] and Interaction Alerts* 03/19/2024 Active Chlorthalidone 25 MG Oral 03/19/2024 Active Mounjaro 7.5 MG/0.5ML Subcutaneous *[facility] and Interaction Alerts* 03/19/2024 Active [...] Female Encounters Encounter Location Date Provider Diagnosis [facility] [address] [place] [address] 03/25/2024 Provider Migration Plan Of Treatment Next Appt Details Provider Name:Sandie Madird, 01/21/2025 11:30:00 AM, [address], [address], [place], [address], Progress Notes * JESU HARLEY LDOB: [birth year] (78 yo F)Acc No.[id number]:03/25/2024 Patient:?JESU HARLEY :1945???Age:78 Y???Sex:Female Address:[address] [place] [address] [address], [place] [id number] Subjective: * Chief Complaints: * ???EMR-Clive * Medical History:? * Scale Tester History:?Migrated GYNHis tory?Migrated GYNHistory:: Abnormal Pap: N Modified Date:06/25/2022,Age at Menarche: 17 Modified Date:08/18/2023,Colonoscopy: 11/07/2021 Modified Date:08/18/2023,Date of Last Colonoscopy: 11/07/2021 Modified Date:06/25/2022,LMP: Unknown Modified Date:08/18/2023,Sexual Problems: N Modified Date:06/25/2022,Sexually Active: N Modified Date:06/25/2022, .? * Surgical History:?Removal of gallbladder (01454) Cosmetic surgery 11/07/1999 * Hospitalization/Major Diagno stic [...] TABLET , Notes to Pharmacist: *Reorder from [facility] for eRx and Interaction Alerts*MOUNJARO 12.5 MG/0.5 ML SUBCUTANEOUS PEN INJECTOR , Notes to Pharmacist: *Reorder from [facility] for eRx and Interaction Alerts*Farxiga 10 MG Tablet Oral Breztri Aerosphere 160-9-4.8 MCG/ACT Aerosol Inhalation , Notes to Pharmacist: *Reorder from [facility] for eRx and Interaction Alerts*Mounjaro 2.5 MG/0.5ML Solution Pen-injector Subcutaneous , Notes to Pharmacist: *Reorder from [facility] for eRx and Interaction Alerts*hydroCHLOROthiazide 25 MG Tablet Oral Albuterol Sulfate (2.5 MG/3ML) 0.083% Nebulization Solution Inhalation Doxycycline Monohydrate 100 MG Tablet Oral Bevespi Aerosphere 9-4.8 MCG/ACT Aerosol Inhalation PREGABALIN 200 MG CAPSULE , Notes to Pharmacist: *Reorder from [facility] for eRx and Interaction Alerts*Azithromycin 250 MG Tablet Oral hydrOXYzine HCl 10 MG Tablet Oral Gtdcaipu-Ajwbdvhlv-Rozidlzo 3.5-02024-8.1 Suspension Ophthalmic ProAir HFA 108 (90 Base) MCG/ACT Aerosol Solution Inhalation Ozempic (0.25 or 0.5 MG/DOSE) 2 MG/3ML Solution Pen-injector Subcutaneous , Notes to Pharmacist: *Pick strength-form from [facility] for eRX*KERENDIA 10 MG TABLET , Notes to Pharmacist: *Reorder from [facility] for eRx and Interaction Alerts*Rosuvastatin Calcium 10 MG Tablet Oral Trintellix 20 MG Tablet Oral Ergocalciferol 1.25 MG (52094 UT) Capsule Oral oxyBUTYnin Chloride ER 10 MG Tablet Extended Release 24 Hour Oral PROzac 20 MG Capsule Oral rOPINIRole HCl 0.5 MG Tablet Oral Korlym 300 mg Tablet Oral Belsomra 10 mg Tablet Oral Mounjaro 7.5 MG/0.5ML Solution Pen-injector Subcutaneous , Notes to Pharmacist: *Reorder from [facility] for eRx and Interaction Alerts*Phentermine HCl [...] Subcutaneous , Notes to Pharmacist: *Reorder from [facility] for eRx and Interaction Alerts*Doxycycline Hyclate 100 MG Tablet Oral FLUoxetine HCl 20 MG Tablet Oral Furosemide 20 MG Tablet Oral Gabapentin 600 MG Tablet Oral Rosuvastatin Calcium 40 MG Tablet Oral Farxiga 5 MG Tablet Oral DAPAGLIFLOZIN PROPANEDIOL 10 MG TABLET , Notes to Pharmacist: *Reorder from [facility] for eRx and Interaction Alerts*predniSONE 10 MG Tablet Oral Allopurinol 100 MG Tablet Oral Atenolol 25 MG Tablet Oral hydrALAZINE HCl 50 MG Tablet Oral Nitroglycerin 0.4 MG Tablet Sublingual Sublingual Cetirizine HCl 10 MG Tablet Oral Magnesium Oxide (Elemental) 400 MG Tablet Oral , Notes to Pharmacist: *Reorder from [facility] for eRx and Interaction Alerts*Cefdinir 300 MG Capsule Oral dexAMETHasone 1 MG Tablet Oral HYDROcodone-Acetaminophen 5-325 MG Tablet Oral Isosorbide Mononitrate ER 30 MG Tablet Extended Release 24 Hour Oral Chlorthalidone 25 MG Tablet Oral dexAMETHasone 6 MG Tablet Oral INSULIN SYRINGE/U-100/1ML/31G X 5/ 6 31G X 16 1 ML MISC , Notes to Pharmacist: *Reorder from [facility] for eRx and Interaction Alerts*Minoxidil 2.5 mg Tablet Oral Combivent Respimat 20-100 MCG/ACT Aerosol Solution Inhalation Mounjaro 5 MG/0.5ML Solution Pen-injector Subcutaneous , Notes to Pharmacist: *Reorder from [facility] for eRx and Interaction Alerts*busPIRone HCl [...] TABLET , Notes to Pharmacist: *Reorder from [facility] for eRx and Interaction Alerts*Taking MOUNJARO 12.5 MG/0.5 ML SUBCUTANEOUS PEN INJECTOR , Notes to Pharmacist: *Reorder from [facility] for eRx and Interaction Alerts*Taking Farxiga 10 MG Tablet Oral Taking Breztri Aerosphere 160-9-4.8 MCG/ACT Aerosol Inhalation , Notes to Pharmacist: *Reorder from [facility] for eRx and Interaction Alerts*Taking Mounjaro 2.5 MG/0.5ML Solution Pen-injector Subcutaneous , Notes to Pharmacist: *Reorder from [facility] for eRx and Interaction Alerts*Taking hydroCHLOROthiazide 25 MG Tablet Oral Taking Albuterol Sulfate (2.5 MG/3ML) 0.083% Nebulization Solution Inhalation Taking Doxycycline Monohydrate 100 MG Tablet Oral Taking Bevespi Aerosphere 9-4.8 MCG/ACT Aerosol Inhalation Taking PREGABALIN 200 MG CAPSULE , Notes to Pharmacist: *Reorder from [facility] for eRx and Interaction Alerts*Taking Azithromycin 250 MG Tablet Oral Taking hydrOXYzine HCl 10 MG Tablet Oral Taking Nlwafqtg-Pumicrsvk-Cqgwzcdw 3.5-66677-0.1 Suspension Ophthalmic Taking ProAir HFA 108 (90 Base) MCG/ACT Aerosol Solution Inhalation Taking Ozempic (0.25 or 0.5 MG/DOSE) 2 MG/3ML Solution Pen-injector Subcutaneous , Notes to Pharmacist: *Pick strength-form from [facility] for eRX*Taking KERENDIA 10 MG TABLET , Notes to Pharmacist: *Reorder from [facility] for eRx and Interaction Alerts*Taking Rosuvastatin Calcium 10 MG Tablet Oral Taking Trintellix 20 MG Tablet Oral Taking Ergocalciferol 1.25 MG (96071 UT) Capsule Oral Taking oxyBUTYnin Chloride ER 10 MG Tablet Extended Release 24 Hour Oral Taking PROzac 20 MG Capsule Oral Taking rOPINIRole HCl 0.5 MG Tablet Oral Taking Korlym 300 mg Tablet Oral Taking Belsomra 10 mg Tablet Oral Taking Mounjaro 7.5 MG/0.5ML Solution Pen-injector Subcutaneous , Notes to Pharmacist: *Reorder from [facility] for eRx and Interaction Alerts*Taking Phentermine [...] Subcutaneous , Notes to Pharmacist: *Reorder from [facility] for eRx and Interaction Alerts*Taking Doxycycline Hyclate 100 MG Tablet Oral Taking FLUoxetine HCl 20 MG Tablet Oral Taking Furosemide 20 MG Tablet Oral Taking Gabapentin 600 MG Tablet Oral Taking Rosuvastatin Calcium 40 MG Tablet Oral Taking Farxiga 5 MG Tablet Oral Taking DAPAGLIFLOZIN PROPANEDIOL 10 MG TABLET , Notes to Pharmacist: *Reorder from [facility] for eRx and Interaction Alerts*Taking predniSONE 10 MG Tablet Oral Taking Allopurinol 100 MG Tablet Oral Taking Atenolol 25 MG Tablet Oral Taking hydrALAZINE HCl 50 MG Tablet Oral Taking Nitroglycerin 0.4 MG Tablet Sublingual Sublingual Taking Cetirizine HCl 10 MG Tablet Oral Taking Magnesium Oxide (Elemental) 400 MG Tablet Oral , Notes to Pharmacist: *Reorder from [facility] for eRx and Interaction Alerts*Taking Cefdinir [...] MISC , Notes to Pharmacist: *Reorder from [facility] for eRx and Interaction Alerts*Taking Minoxidil 2.5 mg Tablet Oral Taking Combivent Respimat 20-100 MCG/ACT Aerosol Solution Inhalation Taking Mounjaro 5 MG/0.5ML Solution Pen-injector Subcutaneous , Notes to Pharmacist: *Reorder from [facility] for eRx and Interaction Alerts*Taking busPIRone HCl 5 MG Tablet Oral Taking FLUoxetine HCl 60 MG Tablet Oral Taking Tretinoin 0.025 % Cream External * Allergies:?Lisinopril: Aller gy - Onset Date 11/17/2023 Objective: * Vitals:? * Physical Examination:? Assessment: Plan: * Treatment: * Procedure Codes:? * true * Date:? Generated for Александр wooten/Stevie/Em on:?12/05/2024 10:10 AM ANIMAL ASSISTANT
--- OUTSIDE RECORDS SUMMARY | 2024-12-05 10:31 | XMS_ITS | CONTINUITY OF CARE DOCUMENT ---
Author Name sterlingjudnarinder Address Unknown Organization [facility] Address [address] [address] [place] [address] Phone [phone] Care Team Providers Care Strip Roller Name Role Phone Braulio KING, Roberto Carlos Unavailable [phone] SUE MCCANN MD Unavailable SUE MCCANN MD Unavailable PROBLEMS Condition Status Date Provider Notes Abnormal nuclear stress test active Roberto Carlos Ramsey MD Shortness of breath active Faisal Carlos MD Hx of tobacco abuse active Taewguzman Melendez Dizziness active Faisal Carlos MD Hypothyroidism active Roberto Carlos Ramsey MD Diaphoresis active Roberto Carlos Ramsey MD S/P EXPLANTED Biotronik dc (MRI Safe) pm completed - Armani Valencia Leg edema active Faisal Carlos MD Leg pain completed - Staci Diaz NP Bradycardia sinus completed - Staci Diaz NP Chronotropic incompetence active Faisal Jiang i, MD Bacteremia S/P PACEMAKER EXPLANTATION active Armani Valencia Hypertension active Roberto Carlos Ramsey MD Arthritis active Roberto Carlos Ramsey MD Obesity active Armani Valencia Fatigue active Roberto Carlos Ramsey MD Anxiety active Roberto Carlos Ramsey MD Depression active Roberto Carlos Ramsey MD Abdominal bruit active Roberto Carlos Ramsey MD Aortic regurgitation, mild-moderate active Tyrell Berumen PVD active Donnellrafiaguzman Melendez COPD active Staci Diaz NP Spinal stenosis, lumbar region with neurogenic claudication active Staci Diaz NP Chronic kidney disease stage 2 active Staci Diaz NP Chest pain-type to be determined active Cedric Valdez Orthostatic hypotension active Jason baker Sleep apnea, obstructive - o n CPAP active Roberto Carlos Ramsey MD Carotid artery stenosis, <50 % ICA b/l active Roberto Carlos Ramsey MD ENCOUNTERS Date Type Provider Location Encounter Diag nosis 12/13 - 12/13 In-person encounter Office Visit Roberto Carlos Ramsey MD [facility] Orthostatic hypotension 11/11 - 11/11 In-person encounter Office Visit Roberto Carlos Ramsey MD [facility] - 0 In-person encounter Office Visit Roberto Carlos Ramsey MD [facility] 07/06 - 07/07 In-person encounter Office Visit Roberto Carlos Ramsey MD [facility] 05/04 - 05/08 In-person encounter Office Visit Roberto Carlos Ramsey MD [facility] 03/11 - 03/11 In-person encounter Office Visit Roberto Carlos Ramsey MD [facility] 02/25 - 02/25 In-person encounter Office Visit Roberto Carlos Ramsey MD [facility] Chest pain-type to be determined - In-person encounter Office Visit Roberto Carlos Ramsey MD [facility] 06/04 - 06/08 In-person encounter Office Visit Roberto Carlos Ramsey MD [facility] 03/05 - 03/08 In-person encounter Office Visit Roberto Carlos Ramsey MD [facility] 12/25 - 01/04 In-person encounter Office Visit Roberto Carlos Ramsey MD [facility] Leg painBradycardia sinusCOPDSpinal sten osis, lumbar region with neurogenic claudicationChronic kidney disease stage 2 03/13 - 03/13 In-person encounter Office Visit Roberto Carlos Ramsey MD [facility] Hx of tobacco abusePVD 02/14 - 02/18 In-person encounter Office Visit Roberto Carlos Ramsey MD [facility] 02/09 - 02/09 In-person encounter Office Visit Roberto Carlos Ramsey MD [facility] Aortic regurgitation, mild-moderate - In-person encounter Office Visit Roberto Carlos Ramsey MD [facility] 12/22 - 12/22 In-person encounter Office Visit Roberto Carlos Ramsey MD [facility] Hx of tobacco abuse 11/23 - 11/23 In-person encounter Office Visit Roberto Carlos Ramsey MD [facility] Abdominal bruit 03/25 - 04/06 In-person encounter Office Visit Roberto Carlos Ramsey MD [facility] 12/10 - 12/15 In-person encounter Office Visit Roberto Carlos Ramsey MD [facility] Carotid artery stenosis, <50% ICA b/lSle ep apnea, obstructive - on CPAPArthritisFatigueAnxietyDepression 12/09 - 12/17 In-person encounter Office Visit Roberto Carlos Ramsey MD [facility] Carotid artery stenosis, <50% ICA b/lS/P EXPLANTED Biotronik dc (MRI Safe) pmBacteremia S/P PACEMAKER EXPLANTATIONObesity 11/24 - 11/28 In-person encounter Office Visit Roberto Carlos Ramsey MD [facility] HypothyroidismDiaphoresisHypertensionArt hritis - In-person encounter Office Visit Roberto Carlos Ramsey MD [facility] Bacteremia S/P PACEMAKER EXPLANTATION - In-person encounter Office Visit Faisal Carlos MD [facility] Leg edemaSleep apnea, obstructive - on CPAPChronotropic incompetence 12/14 - 12/17 In-person encounter Office Visit Faisal Carlos MD [facility] Carotid artery stenosis, <50% ICA b/l 11/22 - 11/25 In-person encounter Office Visit Faisal Carlos MD [facility] Shortness of breathHx of tobacco abuseDizzinessHypothyroidismDiaphoresis VITAL SIGNS Date Observation Value Provider Body Mass Index (Ratio) 43.53 kg/m2 Cong as [place] blood pressure, cuff size large Ke [facility], diastolic 72 mm[Hg] Ke rri Montez blood pressure, systolic 126 mm[Hg] Laurie ri Tennillenerojelio oxygen saturation, oximetry 91 % Nia Virgie pulse rate 65 /min Nia Titoe [facility] weight E&M 238 [lb_av] Nia Gruenenfe [facility] height E&M 62 [in_i] Nia Tennillenenfe [facility] Body Mass Index (Ratio) 44.81 kg/m2 Cong as [place] blood pressure, cuff size large Ke rri [...] Mills oxygen saturation, oximetry 92 % Nanciana [place] weight E&M 229 [lb_av] Nanci Gene blood [...] blood pressure, systolic 160 mm[Hg] Ker ri Khaiuenenfeldparchi oxygen saturation, oximetry 92 % Nia Khaiuenenfelder respiratory rate E&M 14 /min Nia G ruenenfelder pulse rate 74 /min Nia Gruenenfe lder weight E&M 220 [lb_av] Nia Gruenenfe lder height E&M 62 [in_i] Nia Gruenenfe lder Body Mass Index (Ratio) 39.87 [...] lder Body Mass Index (Ratio) 40.42 kg/m2 [facility], cuff size regular Ke rri Gruenenfelder blood pressure, diastolic 58 mm[Hg] Je dorisifer Fendler ROADABILITY MACHINE OPERATOR blood pressure, systolic 140 mm[Hg] Oliva nifer Fendler ROADABILITY MACHINE OPERATOR oxygen saturation, oximetry 93 % Nia Gruenenfelder [...] blood pressure, diastolic 61 mm[Hg] Hallie garcia Lyle blood pressure, systolic 114 mm[Hg] Charlie darius Lyle oxygen saturation, oximetry 94 % Marti Lyle pulse rate 70 /min Marti [facility] gale[facility] weight E&M 213 [lb_av] Marti [facility] galeas respiratory rate E&M 16 /min Madelyn silver Lyle blood pressure, cuff size large Hallie garcia Lyle height E&M 62 [in_i] Marti galeas Body Mass Index (Ratio) 38.41 kg/m2 Ike Ramsey MD blood pressure, diastolic 80 mm[Hg] Li nkLogic blood pressure, systolic 191 mm[Hg] Verna kLogic blood pressure, diastolic 80 mm[Hg] Ke skyleri Montez blood pressure, systolic 191 mm[Hg] Laurie ri Montez blood pressure, cuff size large Ke rri Montez Inhaled O2 3 L/min Nia Akash [facility] oxygen saturation, oximetry 98 % Nia Herrmann [...] Tomás Matthews respiratory rate E&M 16 /min Newton Matthews pulse rate 77 /min Tomás Matthews weight E&M 208 [lb_av] Newton Matthews height E&M 62 [in_i] [facility] Body Mass Index (Ratio) 36.94 kg/m2 Ike Ramsey MD blood pressure, diastolic 78 mm[Hg] Cookie Harrytia Torres blood pressure, systolic 175 mm[Hg] Radha Carson Torres oxygen saturation, oximetry 95 % GeraldineDawna Torres respiratory rate E&M 18 /min Larissa trinity Torres pulse rate 66 /min Geraldine Nowak carroll weight E&M 202 [lb_av] Geraldine Nowak guzman height E&M 62 [in_i] Geraldine Nowak [facility] Body Mass Index (Ratio) 37.49 kg/m2 Ike Ramsey MD blood pressure, cuff size regular Bj Herrmann blood pressure, diastolic, standing 60 mm [Hg] Nia Herrmann blood pressure, systolic, standing 94 mm[ Hg] Nia Herrmann oxygen saturation, oximetry 93 % Nia Herrmann respiratory rate E&M 18 /min Nia means pulse rate 74 /min Nia green weight E&M 205 [lb_av] Nia Bustos [facility] height E&M 62 [in_i] Nia Bustos [facility] Body Mass Index (Ratio) 38.41 kg/m2 Ike [...] means pulse rate 69 /min Nia Akash [facility] weight E&M 204 [lb_av] Nia Akash [facility] height E&M 62 [in_i] Nia Akash [facility] Body Mass Index (Ratio) 38.95 kg/m2 Dionicio Valencia blood pressure, cuff size regular Ke rri Tennillenerojelio blood pressure, diastolic 70 mm[Hg] Ke rri Gruenerojelio blood pressure, systolic 152 mm[Hg] Laurie Herrmann oxygen saturation, oximetry 97 % Nia Montez respiratory rate E&M 18 /min Nia G miguelangel pulse rate 79 /min Nia Akash [facility] weight E&M 213 [lb_av] Nia Bustos [facility] height E&M 62 [in_i] Nia Bustos er Body Mass Index (Ratio) 38.41 kg/m2 Ike Ramsey MD blood pressure, resting Yes Ike Ramsey MD blood pressure, diastolic 71 mm[Hg] Cookie Torres blood pressure, systolic 168 mm[Hg] Radha Torres oxygen saturation, oximetry 91 % Geraldine Torres respiratory rate E&M 18 /min Larissa Torres pulse rate 70 /min Geraldine hodges weight E&M 210 [lb_av] Geraldine Nowak [facility] height E&M 62 [in_i] Geraldine Nowak [facility] blood pressure, diastolic 80 mm[Hg] Bj Herrmann blood pressure, systolic 144 mm[Hg] Laurie Herrmann pulse rate 52 /min Nia Bustos [facility] oxygen saturation, oximetry 94 % Nia Herrmann [...] Ysabel Norris blood pressure, diastolic 58 mm[Hg] Co gonzales Norris blood pressure, systolic 136 mm[Hg] Ruthie Norris pulse rate 68 /min Ysabel Norris oxygen saturation, oximetry 96 % Ysabel Norris respiratory rate E&M 15 /min Ysabel Norris Body Mass Index (Ratio) 38.04 kg/m2 [facility] weight E&M 208 [lb_av] Ysabel Norris blood pressure, diastolic 71 mm[Hg] Co gonzales [facility] blood pressure, systolic 141 mm[Hg] Ruthie sera Norris blood pressure, diastolic, left arm 73 mm [Hg] Ysabel Norris blood pressure, systolic, left arm 131 mm [Hg] Ysabel [facility] blood pressure, diastolic, right arm 71 m m[Hg] Ysabel [facility] blood pressure, systolic, right arm 141 m m[Hg] Ysabel Norris pulse rate 70 /min Ysabel [facility] oxygen saturation, oximetry 98 % Ysabel Norris respiratory rate E&M 15 /min Ysabel [facility] Body Mass Index (Ratio) 39.32 kg/m2 [facility] weight E&M 215 [lb_av] Ysabel Norris blood pressure, diastolic 75 mm[Hg] Cookie Torres blood pressure, systolic 158 mm[Hg] Radha Torres [...] 0-149 1 cholesterol, serum 156 mg/dL [employer] [phone]/04/1 1 basophil count, absolute 0.1 x10E3/uL LinkLogic [...] Estab. 1 platelet count 366 X10E3/UL [employer] [phone]/04/1 1 red blood cell distribution width 14.0 [...] 3.5-5.2 1 sodium, serum 141 mmol/L [employer] [phone]/04/1 1 urea nitrogen/creatinine ratio, serum 13 [employer]ic [...] mg/3 mL) pen injector active Zuly Nalluri ROADABILITY MACHINE OPERATOR gabapentin 600 mg tablet active three times a day Carley Wynn NP Trintellix 20 mg tablet active Carley Wynn NP trazodone 100 mg tablet completed - 07/[address] ROADABILITY MACHINE OPERATOR Farxiga 5 mg tablet active Take 1 [...] mouth once a day 04/18 [address] ROADABILITY MACHINE OPERATOR #90, 90 days supply, Prescribed by JUS MEJIA, Filled 12/24/2020 ergocalciferol (vitamin D2) 1,250 mcg (50,000 unit) capsule completed Take 1 capsule by mouth once a week 03/28 - 11/15 Nia Herrmann #4, 28 days supply, Prescribed by SUE MCCANN, Filled 01/18/2021 trazodone 100 mg tablet completed Take 1 tablet by mouth every night 02/19 - 02/25 Carley Wynn ROADABILITY MACHINE OPERATOR #30, 30 days supply, Prescribed by CARLEY HOPKINS, Filled 02/19/2021 FeroSul 325 mg (65 mg iron) tablet completed Take 1 tablet by mouth twice a day 02/23 - 02/25 [address] Wynn ROADABILITY MACHINE OPERATOR #60, 30 days supply, Prescribed by XAVI MCCLURE, Filled 02/23/2021 hydrocodone-acetami nophen 10-325 mg tablet active Take 1 tablet by mouth three times a day as needed 02/20 Nia Herrmann #90, 30 days supply, Prescribed by XAVI MCCLURE, Filled 02/24/2021 fluoxetine 20 mg tablet completed Take 1 tablet by mouth every morning 01/13 - 02/25 [address] Wynn ROADABILITY MACHINE OPERATOR #30, 30 days supply, Prescribed by CARLEY [...] TWICE DAILY 12/22 - 12/22 Roberto Carlos Ramsey MD PERCOCET TABLET completed as directed 11/23 [...] - 06/10 Nia Herrmann VITAMIN D (ERGOCALCIFEROL) 10077 UNIT ORAL CAPSULE completed once a week [...] nfelder smoking, year quit 2018 [address]ley Wynn ROADABILITY MACHINE OPERATOR number of years as a smoker 50 a Carley Wynn NP smoking status Former smoker Carley queen ROADABILITY MACHINE OPERATOR smoking history, tot al pack/day 1 ppd Carley Wynn ROADABILITY MACHINE OPERATOR cigarette use yes Carley Lilly velarde ROADABILITY MACHINE OPERATOR social history E&M S moking History: Justin [...] History: Justin nava is a former smoker. [facility] social history reviewed E&M revi ewed - no changes required [facility] smoking, year quit 2018 Nia Ridleyjez [...] ation, patient education and counseling yes Tomás Matthesw alcohol use no Tomás Matthews cigarette use yes Newton Matthews smoking status Current every day smoker [...] Nia lee smoking status Light tobacco smoker Nai Montez social history E&M S moking History: [...] Nia lee smoking status Former smoker [facility] reviewed E&M revi ewed [...] Payer name Policy type / Coverage type [place] green party ID [facility] COMPLETE CARE [id number] (PPO C-SNP) Commercial insurance company [id number] [employer] Medicaid 1 [id number] ADVANCE DIRECTIVES Name Date DISCUSSED - NO DECISION MADE TREATMENT PLAN Date Name Performer [id number],C,w ill check PFT w ill send in breo inhaler for now Cedric Valdez [id number],C,s ays she has persistent fatigue and it has been affecting her routine life w ill check PFT h er Cath showed mild CAD s he has diastolic dysfunction Cedric Valdez [id number],C,c ath 04/2023 F INAL RESULTS: T he [...] LVEDP consistent with diastolic dysfunction Cedricbruno Daniels [id number],C, c arotids: 07/15/22 Mild plaque with less than 50% stenosis of the internal carotid arteries bilaterally. Vertebral flow is antegrade bilaterally. Cedric Daniels [id number],C, B P today: 140/64 P rior BP: 130/80 (07/06/2023) Labs Reviewed: C reat: 2.02 (02/16/2020) C hol: 156 (02/16/2020) HDL: 66 (02/16/2020) Cedricbruno Daniels [id number],C,will check PF T Cedricbruno Daniels [id number],C, N o recurrent episodes of chest pain [facility] [id number],C,moderate Adam porfirio Nalluri ROADABILITY MACHINE OPERATOR [id number],C, P FTs: minimal obstructive airways disease and significant decrease in FEV1 when compared to previous study. 6 minute walk test: ambulated 6 minutes. O2 sats 95-96% on room air. H as appointment with perioperative manager Zuly Knappri ROADABILITY MACHINE OPERATOR [id number],C,N o recurrent episodes of chest pain Zuly Ariluri ROADABILITY MACHINE OPERATOR [id number],C, B P today: 130/80 P rior BP: 160/80 (05/04/2023) H er updated medication list for this problem includes: Amlodipine 5 Mg Tablet (Amlodipine) ..... Take 1 tablet by mouth once a day Hydralazine 50 Mg Tablet (Hydralazine) ..... Take 1 tablet by mouth three times a day Zuly Ariluri ROADABILITY MACHINE OPERATOR [id number],C, n ot compliant with cpap Zuly Chapmanluri ROADABILITY MACHINE OPERATOR [id number],C, h as been in contact with [facility] to have weight loss surgery. started on ozempic yesterady Zuly Ariluri ROADABILITY MACHINE OPERATOR [id number],C, T race bilateral leg edema. on lasix 20 mg Po Zuly Ariluri ROADABILITY MACHINE OPERATOR [id number],C, c arotids: 07/15/22 Mild plaque with less than 50% stenosis of the internal carotid arteries bilaterally. Vertebral flow is antegrade bilaterally. Zuly Ariluri ROADABILITY MACHINE OPERATOR [id number],C, H er updated medication list for this problem includes: Levothyroxine 88 Mcg Tablet (Levothyroxine) ..... 1 tablet once a day Zuly Ariluri ROADABILITY MACHINE OPERATOR [id number],C,Will order 2 week tele monitor Zuly Nalluri ROADABILITY MACHINE OPERATOR [id number],C, S uggested patient lose more weight. BP [...] once a day Roberto Carlos Ramsey MD [id number],C,l ab tests from 04/19/23 showed creatinine of 1.86 and BUN of 29 Roberto Carlos Ramsey MD [id number],W, H as mild bilateral leg edema. Blue Herrmann [id number],C, Blue serrato [id number],C, S uggested patient lose more weight. BP [...] by mouth once a day Blue Herrmann [id number],S,l ab tests from 04/19/23 showed creatinine of 1.86 and BUN of 29 Blue Herrmann [id number],S, P FTs: minimal obstructive airways disease and significant decrease in FEV1 when compared to previous study. 6 minute walk test: ambulated 6 minutes. O2 sats 95-96% on room air. H er updated medication list for this problem includes: Albuterol Sulfate 90 Mcg/actuation Hfa Aerosol Inhaler (Albuterol sulfate) ..... Inhale 1 puff using inhaler three times a day as needed Blue Herrmann [id number],S, C ontinues to feel fatigued. Blue Herrmann [id number],N, Roberto Carlos pierce MD [id number],W, H er updated medication list for this [...] go to er Roberto Carlos Ramsey MD [id number],C,e cho today C ONCLUSIONS: 1 . Technically [...] Moderate aortic wall calcification. Carley Wynn NP [id number],C, stress test - will await for results [...] experience SOB/HOWELL and fatigue Carley Wynn NP [id number],C,compliant wit h cpap Carley Wynn ROADABILITY MACHINE OPERATOR [id number],C, B P today: 126/80 P rior BP: 140/58 (02/25/2023) Labs Reviewed: C reat: 2.02 (02/16/2020) C hol: 156 (02/16/2020) HDL: 66 (02/16/2020) Her updated medication list for this problem includes: Hydralazine 50 Mg Tablet (Hydralazine) ..... Take 1 tablet by mouth three times a day Amlodipine 5 Mg Tablet (Amlodipine) ..... Take 1 tablet by mouth once a day [facility] [id number],Cchristina nephrology [facility] [id number],C,on supplement ation. [facility] [id number],C,c arotids: 07/15/22 Mild plaque with less than 50% stenosis of the internal carotid arteries bilaterally. Vertebral flow is antegrade bilaterally. checking nuclear stress test. unable to walk on treadmill d/t back, hip and knee pain. [facility]ley [facility] [id number],C, B P today: 140/58 P rior BP: [...] by mouth once a day Carley [facility] [id number],C,. Pt reports that a couple of days [...] and prn SL NTG Carley Wynn NP [id number],C, Roberto Carlos pierce MD [id number],S, H er updated medication list for this problem includes: Hydrochlorothiazide 25 Mg Tablet (Hydrochlorothiazide) ..... Take 1 tablet by mouth once a day Amlodipine 10 Mg Tablet (Amlodipine) ..... Take 1 tablet by mouth once a day Orders: T obacco cessation counseling, 3-10minutes (27903) Roberto Carlos Ramsey MD [id number],C, Roberto Carlos pierce MD [id number],C, O rders: E KG (CPT-97693) Roberto Carlos Ramsey MD [id number],C,C ontinues to be SOB and currently does not know if she needs supplemental O2. I will start her on Albuterol inhaler and Breo ellipta inhaler and see how she does. Will check PFTs and 6 minute walk test . O rders: 9 9215 HIGH 40-54min (CPT-63763) C arotid Duplex Bilateral (CPT-33920) F VC - 04327 (07999) F RC - 25925 (71134) D LCO - 43750 (21146) 6 minute walk test (CPT-10820) Her updated medication list for this problem includes: Amlodipine 10 Mg Tablet (Amlodipine) ..... Take 1 tablet by mouth once a day Hydrochlorothiazide 25 Mg Tablet (Hydrochlorothiazide) ..... 1 tablet by mouth once a day Cedric Valdez [id number],S, O rders: 9 9215 HIGH 40-54min (CPT-21180) C arotid Duplex Bilateral (CPT-69399) F VC - 44823 (68549) F RC - 53108 (71900) D LCO - 25844 (33580) 6 minute walk test (CPT-82056) Cedric Valdez [id number],C, P FTs: minimal obstructive airways disease and [...] as needed Orders: 9 9215 HIGH 40-54min (CPT-14846) C arotid Duplex Bilateral (CPT-50478) F VC - 14735 (17575) F RC - 43770 (53032) D LCO - 66270 (79675) 6 minute walk test (CPT-92545) Cedric Valdez [id number],C,A dvised to cut back salt intake. Will start her on Amlodipine 10 mg and see how she does. Will check carotid duplex as she has mild carotid bruits. BP today: 191/80 P rior BP: 110/70 (03/05/2022) Labs Reviewed: C reat: 2.02 (02/16/2020) C hol: 156 (02/16/2020) HDL: 66 (02/16/2020) Orders: 9 9215 HIGH 40-54min (CPT-71640) C arotid Duplex Bilateral (CPT-95961) F VC - 49164 (91655) F RC - 76973 (66958) D LCO - 21445 (96425) 6 minute walk test (CPT-83566) Her updated medication list for this problem includes: Amlodipine 10 Mg Tablet (Amlodipine) ..... Take 1 tablet by mouth once a day Hydrochlorothiazide 25 Mg Tablet (Hydrochlorothiazide) ..... 1 tablet by mouth once a day Cedric Valdez [id number],S, O rders: 9 9215 HIGH 40-54min (CPT-14136) C arotid Duplex Bilateral (CPT-34027) F VC - 38249 (85123) F RC - 46337 (20738) D LCO - 66407 (17590) 6 minute walk test (CPT-25431) Cedric Valdez [id number],C,H ad telemetry one week: 2 second episode of NSVT. Staci Diaz HUNG [id number],S,T he patient is using CPAP on a regular basis. The patient has been benefiting from therapy and should continue use. Staci Joe PERSAUD [id number],S, H er updated medication list for this problem includes: Hydrochlorothiazide 25 Mg Tablet (Hydrochlorothiazide) ..... 1 tablet by mouth once a day Staci Diaz HUNG [id number],S,e cho shows mild to moderate AVR. Next echo in one year. Staci Diaz HUNG [id number],S,P FTs: minimal obstructive airways disease and significant decrease in FEV1 when compared to previous study. 6 minute walk test: ambulated 6 minutes. O2 sats 95-96% on room air. Staci Diaz HUNG [id number],S, O rders: F VC - 20101 (17974) F RC - 51290 (26366) D LCO - 14542 (27606) 6 minute walk test (CPT-77704) C OMPREHENSIVE METABOLIC PANEL, W/EGFR (97289) C BC (INCLUDES DIFF/PLT) (6399) L IPID PANEL (7600) H EMOGLOBIN A1c (496) B TYPE NATRIURETIC PEPTIDE (BNP) (12618) P ROBNP, N TERMINAL (55921) M onitor - Telemetry (Mobile Cardiac) (CPT-18209) Roberto Carlos Ramsey MD [id number],S,c [place] PFTs O rders: F VC - 59090 (14012) F RC - 55214 (90444) D LCO - 61743 (80237) 6 minute walk test (CPT-61410) C OMPREHENSIVE METABOLIC PANEL, W/EGFR (49851) CBC (INCLUDES DIFF/PLT) (6399) L IPID PANEL (7600) H EMOGLOBIN A1c (496) B TYPE NATRIURETIC PEPTIDE (BNP) (15160) P ROBNP, N TERMINAL (06775) M onitor - Telemetry (Mobile Cardiac) (CPT-94874) Roberto Carlos Ramsey MD [id number],S, O rders: C omplete Echo (CPT-94980) 6 minute walk test (CPT-65955) C OMPREHENSIVE METABOLIC PANEL, W/EGFR (67821) C BC (INCLUDES DIFF/PLT) (6399) L IPID PANEL (7600) H EMOGLOBIN A1c (496) B TYPE NATRIURETIC PEPTIDE (BNP) (85666) P ROBNP, N TERMINAL (21626) M onitor - Telemetry (Mobile Cardiac) (CPT-65909) 9 9213 LTD 20-29min (CPT-58206) Roberto Carlos Ramsey MD [id number],C, O rders: C omplete Echo (CPT-45706) F VC - 64698 (26137) F RC - 18380 (13555) D LCO - 64328 (19876) 6 minute walk test (CPT-15913) C OMPREHENSIVE METABOLIC PANEL, W/EGFR (50054) C BC (INCLUDES DIFF/PLT) (6399) L IPID PANEL (7600) H EMOGLOBIN A1c (496) B TYPE NATRIURETIC PEPTIDE (BNP) (05255) P ROBNP, N TERMINAL (17091) M onitor - Telemetry (Mobile Cardiac) (CPT-19642) 9 9213 LTD 20-29min (CPT-17035) Roberto Carlos Ramsey MD [id number],W,w ill check echo, PFTs, 6 minute walk test, labs. H er updated medication list for this problem includes: Hydrochlorothiazide 25 Mg Tablet (Hydrochlorothiazide) ..... 1 tablet by mouth once a day Orders: C omplete Echo (CPT-06533) 6 minute walk test (CPT-49465) C OMPREHENSIVE METABOLIC PANEL, W/EGFR (87205) C BC (INCLUDES DIFF/PLT) (6399) L IPID PANEL (7600) H EMOGLOBIN A1c (496) B TYPE NATRIURETIC PEPTIDE (BNP) (67131) P ROBNP, N TERMINAL (72468) M onitor - Telemetry (Mobile Cardiac) (CPT-32720) Roberto Carlos Ramsey MD [id number],W,w ill check echo, PFTs, 6 minute walk test, labs. Staci Diaz NP [id number],S,check PFTs maribell Diaz NP [id number],S, Staci andrew NP [id number],S,T he patient is using CPAP on a regular basis. The patient has been benefiting from therapy and should continue use. Staci Diaz NP [id number],W,m od AR per last echo. Will recheck echo Staci Diaz NP [id number],W,h as been in contact with [facility] to have weight loss surgery. Staci Diaz [...] ..... Take 1 tablet by mouth daily [facility]:per nephro [facility] Electrophysiology:stable [facility] Electrophysiology:below baseline [facility] Electrophysiology: T race bilateral leg edema. on lasix 20 mg Po J anuary 2023 r ecommend continued use of lasix, i have instructed the patient to take additional dose if needed for swelling [facility] Electrophysiology:check carpotid study [facility] Electrophysiology:[facility] low dost lung CT given Hx of tobacco abuse. m ild COPD on latest PFTS m inimal diffusion defect on latest PFTs s he states there is minimal benefit from inhalers [facility] [place] Electrophysiology:Th e patient is using CPAP on [...] mild CAD s he has diastolic dysfunction [facility]:ca th 04/2023 F INAL RESULTS: [...] with increased LVEDP consistent with diastolic dysfunction [facility] Electrophysiology: c arotids: 07/15/22 Mild plaque with less than 50% stenosis of the internal carotid arteries bilaterally. Vertebral flow is antegrade bilaterally. [facility]: B P today: 140/64 P rior BP: 130/80 (07/06/2023) Labs Reviewed: C reat: 2.02 (02/16/2020) C hol: 156 (02/16/2020) HDL: 66 (02/16/2020) [facility] Elect[facility]:will check PFT [facility] Electrophysiology: N o recurrent episodes of chest pain [facility] Electrophysiology:moderate Richard Silvestre NP Electrophysiology: P FTs: minimal obstructive airways disease and significant decrease in FEV1 when compared to previous study. 6 minute walk test: ambulated 6 minutes. O2 sats 95-96% on room air. H as appointment with perioperative manager Zuly Silvestre NP Electrophysiology:No recurrent e pisodes of chest pain Zuly Silvestre NP Electrophysiology: B P today: 130/80 P rior BP: 160/80 (05/04/2023) H er updated medication list for this problem includes: Amlodipine 5 Mg Tablet (Amlodipine) ..... Take 1 tablet by mouth once a day Hydralazine 50 Mg Tablet (Hydralazine) ..... Take 1 tablet by mouth three times a day Zuly Nalluri ROADABILITY MACHINE OPERATOR Electrophysiology: n ot compliant with cpap Zuly Nalluri ROADABILITY MACHINE OPERATOR Electrophysiology: h as been in contact with [facility] to have weight loss surgery. started on ozempic yesterady Zuly Nalluri ROADABILITY MACHINE OPERATOR Electrophysiology: T race bilateral leg edema. on lasix 20 mg Po Zuly Nalluri ROADABILITY MACHINE OPERATOR Electrophysiology: c arotids: 07/15/22 Mild plaque with less than 50% stenosis of the internal carotid arteries bilaterally. Vertebral flow is antegrade bilaterally. Zuly Nalluri ROADABILITY MACHINE OPERATOR Electrophysiology: H er updated medication list for this problem includes: Levothyroxine 88 Mcg Tablet (Levothyroxine) ..... 1 tablet once a day Zuly Nalluri ROADABILITY MACHINE OPERATOR Electrophysiology:Will order 2 [address] tele monitor Zuly Nalluri ROADABILITY MACHINE OPERATOR Electrophysiology - 3 month follow up with [...] Telehealth - needs [facility] with Dr. Sonny Ramsey MD [facility] - [facility] Dennis: H er updated medication [...] Carley Wynn NP Electrophysiology:on noreen hendrickson nephrology Carley Wynn NP Electrophysiology:on supplementa tion. Carley Wynn [...] day Orders: T obacco cessation counseling, 3-10minutes (98758) Roberto Carlos Ramsey MD Electrophysiology- Roberto Carlos garcia MD Electrophysiology-: O rders: E KG (CPT-50125) Roberto Carlos Ramsey MD Electrophysiology:Co ntinues to be SOB and currently does not know if she needs supplemental O2. I will start her on Albuterol inhaler and Breo ellipta inhaler and see how she does. Will check PFTs and 6 minute walk test . O rders: 9 9215 HIGH 40-54min (CPT-57572) C arotid Duplex Bilateral (CPT-27179) F VC - 03973 (18939) F RC - 42737 (55998) D LCO - 11602 (88032) 6 minute walk test (CPT-62112) Her updated medication list for this problem includes: Amlodipine 10 Mg Tablet (Amlodipine) ..... Take 1 tablet by mouth once a day Hydrochlorothiazide 25 Mg Tablet (Hydrochlorothiazide) ..... 1 tablet by mouth once a day Roberto Carlos Ramsey MD Electrophysiology: O rders: 9 9215 HIGH 40-54min (CPT-09532) C arotid Duplex Bilateral (CPT-57698) F VC - 94415 (00753) F RC - 57881 (40422) D LCO - 41848 (09376) 6 minute walk test (CPT-68209) Roberto Carlos Ramsey MD Electrophysiology: P FTs: [...] as needed Orders: 9 9215 HIGH 40-54min (CPT-46049) C arotid Duplex Bilateral (CPT-83720) F VC - 13316 (31649) F RC - 89449 (39624) D LCO - 48415 (65107) 6 minute walk test (CPT-67605) Roberto Carlos Ramsey MD Electrophysiology:Ad vised to cut back salt intake. Will start her on Amlodipine 10 mg and see how she does. Will check carotid duplex as she has mild carotid bruits. BP today: 191/80 P rior BP: 110/70 (03/05/2022) Labs Reviewed: C reat: 2.02 (02/16/2020) C hol: 156 (02/16/2020) HDL: 66 (02/16/2020) Orders: 9 9215 HIGH 40-54min (CPT-83263) C arotid Duplex Bilateral (CPT-72622) F VC - 99831 (45181) F RC - 34950 (78766) D LCO - 63693 (11928) 6 minute walk test (CPT-18481) Her updated medication list for this problem includes: Amlodipine 10 Mg Tablet (Amlodipine) ..... Take 1 tablet by mouth once a day Hydrochlorothiazide 25 Mg Tablet (Hydrochlorothiazide) ..... 1 tablet by mouth once a day Roberto Carlos Ramsey MD Electrophysiology: O rders: 9 9215 HIGH 40-54min (CPT-40498) C arotid Duplex Bilateral (CPT-35465) F VC - 69674 (81675) F RC - 12396 (46587) D LCO - 45463 (17281) 6 minute walk test (CPT-04904) Roberto Carlos Ramsey MD Electrophysiology:Hamm d telemetry [...] NP Electrophysiology: O rders: F VC - 64273 (12358) F RC - 70932 (06224) D LCO - 06820 (09529) 6 minute walk test (CPT-70802) C OMPREHENSIVE METABOLIC PANEL, W/EGFR (96508) C BC (INCLUDES DIFF/PLT) (6399) L IPID PANEL (7600) H EMOGLOBIN A1c (496) B TYPE NATRIURETIC PEPTIDE (BNP) (38712) P ROBNP, N TERMINAL (19932) M onitor - Telemetry (Mobile Cardiac) (CPT-66516) Roberto Carlos Ramsey MD Electrophysiology:[facility] PFTs O rders: F VC - 29967 (53061) F RC - 53961 (81885) D LCO - 88013 (19725) 6 minute walk test (CPT-69165) C OMPREHENSIVE METABOLIC PANEL, W/EGFR (75759) CBC (INCLUDES DIFF/PLT) (6399) L IPID PANEL (7600) H EMOGLOBIN A1c (496) B TYPE NATRIURETIC PEPTIDE (BNP) (33634) P ROBNP, N TERMINAL (83940) M onitor - Telemetry (Mobile Cardiac) (CPT-19327) Roberto Carlos Ramsey MD Electrophysiology: O rders: C omplete Echo (CPT-31036) 6 minute walk test (CPT-94966) C OMPREHENSIVE METABOLIC PANEL, W/EGFR (00332) C BC (INCLUDES DIFF/PLT) (6399) L IPID PANEL (7600) H EMOGLOBIN A1c (496) B TYPE NATRIURETIC PEPTIDE (BNP) (09446) P ROBNP, N TERMINAL (11798) M onitor - Telemetry (Mobile Cardiac) (CPT-87177) 9 9213 LTD 20-29min (CPT-49513) Roberto Carlos Ramsey MD Electrophysiology: O rders: C omplete Echo (CPT-70376) F VC - 44752 (64428) F RC - 82832 (66662) D LCO - 90378 (96629) 6 minute walk test (CPT-89215) C OMPREHENSIVE METABOLIC PANEL, W/EGFR (91219) C BC (INCLUDES DIFF/PLT) (6399) L IPID PANEL (7600) H EMOGLOBIN A1c (496) B TYPE NATRIURETIC PEPTIDE (BNP) (34664) P ROBNP, N TERMINAL (68686) M onitor - Telemetry (Mobile Cardiac) (CPT-37207) 9 9213 LTD 20-29min (CPT-93760) Roberto Carlos Ramsey MD Electrophysiology:wi ll check echo, PFTs, 6 minute walk test, labs. H er updated medication list for this problem includes: Hydrochlorothiazide 25 Mg Tablet (Hydrochlorothiazide) ..... 1 tablet by mouth once a day Orders: C omplete Echo (CPT-60351) 6 minute walk test (CPT-39863) C OMPREHENSIVE METABOLIC PANEL, W/EGFR (69411) C BC (INCLUDES DIFF/PLT) (6399) L IPID PANEL (7600) H EMOGLOBIN A1c (496) B TYPE NATRIURETIC PEPTIDE (BNP) (02773) P ROBNP, N TERMINAL (17813) M onitor - Telemetry (Mobile Cardiac) (CPT-98628) Roberto Carlos Ramsey MD Electrophysiology:wi ll check echo, PFTs, 6 minute walk test, labs. Staci Diaz NP Electrophysiology:check PFTs Lary Diaz NP Electrophysiology Staci weber NP Electrophysiology:Th e patient is using CPAP on a regular basis. The patient has been benefiting from therapy and should continue use. Staci Diaz NP Electrophysiology:mo d AR per last echo. Will recheck echo Staci Diaz NP Electrophysiology:hamm s been in contact with [facility] to have weight loss surgery. Staci Diaz NP Electrophysiology Ho spital Follow up 14 : s /p DC PPM explantation 08/14/16 with extensive pocket revision due to bacteremia. Penny Melendez Electrophysiology Ho spital Follow up 14 : O rders: A rosemary Duplex Ultrasound (CPT-38364) The following medications were removed from the medication list: Aspirin 81 Mg Oral Tablet (Aspirin) ..... One tab. daily Penny Al Electrophysiology spital Follow up 14 :s/p DC PPM explantation 08/14/16 with extensive pocket revision due to bacteremia. Orders: M onitor - Telemetry (Mobile Cardiac) (CPT-43268) Angelitoguzman Al Electrophysiology spital Follow up 14 : O rders: E KG (CPT-40138) C omplete Echo (CPT-80039) Echo 02/2020 CONCLUSIONS: 1 . There is [...] 2 020-04-16 13:28:20 CDT [facility]2020 P ulmonary [...] O rders: C OMPREHENSIVE METABOLIC PANEL, W/EGFR (74501) C BC (INCLUDES DIFF/PLT) (6399) L IPID PANEL (7600) T HYROID PANEL (7020) F VC - 79828 (24238) F - 06223 (02986) D O - 71548 (27531) C omplete Echo (CPT-09399) S tress Regadenoson (CPT-78486) Juan Dionicio Electrophysiology: P rior BP: 122/60 [...] daily Orders: C OMPREHENSIVE METABOLIC PANEL, W/EGFR (02673) C BC (INCLUDES DIFF/PLT) (6399) L IPID PANEL (9630) T HYROID PANEL (7020) F VC - 99248 (80061) [facility] - 14603 (44846) D O - 22730 (29028) C omplete Echo (CPT-10427) S tress Regadenoson (CPT-22179) Juan Greenberg Electrophysiology fo llow up: E [...] Tyrell Berumen Electrophysiology - :Orders: E KG (CPT-56346) M obile Cardiac Tele (CPT-06827) S chedule Followup (*) 9 9214 MOD Complex (CPT-09442) Tyrell Berumen Electrophysiology - :Orders: S chedule Followup (*) 9 9214 MOD Complex (CPT-00247) Tyrell Berumen Electrophysiology - :BP today: 142/60 [...] cessation strongly advised. Orders: F VC - 98492 (49136) F RC - 25196 (24672) D LCO - 90834 (81863) S chedule Followup (*) 9 9258 MOD Complex (CPT-10784) Her updated medication list for this problem includes: Hydrochlorothiazide 25 Mg Oral Tablet (Hydrochlorothiazide) ..... One tab daily Lisinopril 10 Mg Oral Tablet (Lisinopril) ..... One tablet at bedtime Aspirin 81 Mg Oral Tablet (Aspirin) ..... One tab. daily Tyrell Berumen Electrophysiology:[facility] ENCOURAGED TO STOP SMOKING; SMOKING CESSATION TECHNIQUES [...] 94/60 (09/23/2017) Roberto Carlos Ramsey MD Electrophysiology Fo llow up :Lisinipril dose reduced by half. BP today: 94/60 P rior BP: 142/80 (03/25/2017) Roberto Carlos Ramsey MD Electrophysiology Fo llow up : O rders: 9 9214 MOD Complex (CPT-69892) S TR - Adenosine (CPT-29515) Roberto Carlos Ramsey MD Electrophysiology Fo llow up : O rders: A rosemary Duplex Ultrasound (AAA) (CPT-73755) Roberto Carlos Ramsey MD Cardiology FOLLOW UP [...] every 6 hours as needed for pain Armani Valencia Cardiology Follow up faxed 12/16/16:Will [...] Cardiology Follow up faxed 12/16/16:Orders: S NOMED-CT: [id number] Current Medications Documented (SCT-[id number]) E KG (CPT-17888) M obile Cardiac Tele (CPT-53112) Continues to have some fatigue. Armani Valencia Cardiology Follow up faxed 12/16/16:On 50mcg Levothyroxine daily. Armani Valencia Cardiology Follow up faxed 12/16/16:Orders: S NOMED-CT: [id number] Current Medications Documented (SCT-[id number]) E KG (CPT-67825) M obile Cardiac Tele (CPT-09116) Armani Valencia EP Follow up faxed 10/19/16:Comp [...] MD Cardiology:Orders: A rterial Duplex Bi-Lower EX (CPT-78948) V enous Doppler Bilateral LE - Standing (CPT-22631) Faisal Carlos MD Cardiology:Orders: A rterial Duplex Bi-Lower EX (CPT-01737) V enous Doppler Bilateral LE - Standing (CPT-33845) Faisal Carlos MD Cardiology:There was mild caroti [...] eral Aorta Duplex Ultraso und DLCO - 71320 FRC - 32772 FVC - 72372 Monitor - Telemetry (Mobile Cardiac) Monitor - Telemetry (Mobile Cardiac) PROTHROMBIN TIME WIT H INR LIPID PANEL CBC (INCLUDES DIFF/P LT) BASIC METABOLIC PANE L W/EGFR Stress Regadenoson Complete Echo RPM (remote patient monitoring) Monitor - Telemetry (Mobile Cardiac) 6 minute walk test DLCO - 35719 FRC - 26316 FVC - 71271 Carotid Duplex Bilat eral Monitor - Telemetry (Mobile Cardiac) PROBNP, N TERMINAL B TYPE NATRIURETIC P EPTIDE (BNP) HEMOGLOBIN A1c LIPID PANEL CBC (INCLUDES DIFF/P LT) COMPREHENSIVE METABO LIC PANEL, W/EGFR 6 minute walk test DLCO - 80693 FRC - 88931 FVC - 05056 Complete Echo Aorta Duplex Ultraso und Monitor - Telemetry (Mobile Cardiac) Complete Echo Stress Regadenoson Complete Echo DLCO - 88285 FRC - 62415 FVC - 84529 THYROID PANEL LIPID PANEL CBC (INCLUDES DIFF/P LT) COMPREHENSIVE METABO LIC PANEL, W/EGFR MAGNESIUM DLCO - 43515 FRC - 06737 FVC - 45976 COMPREHENSIVE METABO LIC PANEL, W/EGFR Mobile Cardiac Tele Complete Echo Carotid Duplex Bilat eral DLCO - 39067 FRC - 07843 FVC - 77257 Aorta Duplex Ultraso und (AAA) STR - Adenosine Mobile Cardiac Tele Complete Echo Carotid Duplex Bilat eral Other Test DLCO - 90446 FRC - 65189 FVC - 28898 Mobile Cardiac Tele C-REACTIVE PROTEIN Other SED [...] completed FVC / MVV with bronchodilator - 58252 Roberto Carlos Ramsey MD completed BLOOD COUNT HEMOGLOBIN Roberto Carlos jacob MD completed FRC - [address] MD completed SpO2 w/o 6min walk/titration Roberto Carlos Ramsey MD completed DLCO - [address] MD completed EKG Roberto Carlos [...] completed FVC / MVV with bronchodilator - 65067 Roberto Carlos Ramsey MD completed FRC - [address] MD completed SpO2 w/o 6min walk/titration Roberto Carlos Ramsey MD completed SVC - [address] MD completed DLCO - [address] MD completed 6 minute walk test Roberto Carlos garcia MD completed EKG Roberto Carlos street MD completed EKG Roberto Carlos street MD completed 6 minute walk test Roberto Carlos garcia MD completed Spirometry Roberto Carlos street MD completed FVC / MVV with bronchodilator - 04687 Roberto Carlos Ramsey MD completed FRC - [address] MD completed SpO2 w/o 6min walk/titration Roberto Carlos Ramsey MD completed SVC - [address] MD completed DLCO - [address] MD completed EKG Roberto [...] street MD completed FVC / MVV - 90968 Roberto Carlos arriaga MD completed BLOOD COUNT HEMOGLOBIN Roberto Carlos jacob MD completed FRC - [address] MD completed SpO2 w/o 6min walk/titration Roberto Carlos Ramsey MD completed DLCO - [address] MD completed EKG Roberto Carlos street MD completed Schedule Followup Roberto Carlos arriaga MD in 1 yr completed EKG Roberto Carlos street MD completed FVC / MVV with bronchodilator - 29461 Roberto Carlos Ramsey MD completed BLOOD COUNT HEMOGLOBIN Roberto Carlos jacob MD completed FRC - [address] MD completed SpO2 w/o 6min walk/titration Roberto Carlos Ramsey MD completed DLCO - [address] MD completed Schedule Followup Roberto Carlos arriaga MD in 6 mo completed EKG Roberto Carlos street MD completed FVC / MVV with bronchodilator - 81305 Roberto Carlos Ramsey MD completed BLOOD COUNT HEMOGLOBIN Roberto Carlos jacob MD completed FRC - [address] MD completed SpO2 w/o 6min walk/titration Roberto Carlos Ramsey MD completed DLCO - [address] MD completed EKG Roberto Carlos street MD completed SNOMED-CT: [id number] Current Medications Documented Roberto Carlos Ramsey MD completed Stress EKG Julien Ruth MD complete d Regadenoson, 4 units ulius Giancarlo wall MD completed Cardiolite, 2 units ulius Naz pierce MD completed SPECT Images Dian Dennis MD complet ed EKG Roberto Carlos street MD completed SNOMED-CT: 726956261152046 Current Medications Documented Roberto Carlos Ramsey MD completed Mobile Cardiac Telem etry - Tech Roberto Carlos Ramsey MD completed Mobile Cardiac Telem etry - Prof Roberto Carlos Ramsey MD completed Schedule Followup Roberto Carlos arriaga MD In 6 months. completed EKG Roberto Carlos street MD completed SNOMED-CT: [id number] Current Medications Documented Roberto Carlos Ramsey MD completed FVC / MVV with bronchodilator - 47733 Roberto Carlos Ramsey MD completed FRC - [address] MD completed SpO2 - [address] MD completed DLCO - [address] MD completed Mobile Cardiac Telem etry - Tech Kiarra Smith completed Mobile Cardiac Telem etry - Prof Kiarra Smith completed EKG Roberto Carlos street MD completed SNOMED-CT: 737779235719975 Current Medications Documented Roberto Carlos Ramsey MD completed ZIO Inderjitter Carmen arriaga MD completed EKG Roberto Carlos street MD completed SNOMED-CT: 756521541578467 Current Medications Documented Roberto Carlos Ramsey MD completed EKG Roberto Carlos street MD completed SNOMED-CT: 737630996438121 Current Medications Documented Roberto Carlos Ramsey MD completed EKG Roberto Carlos street MD completed SNOMED-CT: 981689993948512 Current Medications Documented Roberto Carlos Ramsey MD completed SNOMED-CT: 691930994927149 Current Medications Documented Faisal Carlos MD completed SNOMED-CT: 295716251852805 Current Medications Documented Faisal Carlos MD completed SNOMED-CT: 071129077 Smoking Cessation Counseling Faisal Carlos MD completed Stress EKG Faisal Carlos MD completed Regadenoson, 4 units Faisal Carlos MD completed Cardiolite, 2 units Faisal Carlos MD c ompleted SPECT Images Lois Giraldo MD compl eted Mobile Cardiac Telem etry - Tech Feli Hughes completed Mobile Cardiac Telem etry - Prof Feli Hughes completed SNOMED-CT: 303880548 Smoking Cessation Counseling Faisal Carlos MD completed EKG Faisal Carlos MD completed SNOMED-CT: 243987108380775 Current Medications Documented Faisal Carlos MD completed
--- OUTSIDE RECORDS SUMMARY | 2024-12-05 10:31 | XMS_ITS ---
Author Organization [facility] [employer] Address [address] [facility] [address] [place] [address] Care Team Providers Care Garnett Fixer Name Role Phone Sandie Madrid [phone] Migration, Provider Unavailable Unavailable REASON FOR VISIT EMR-Clive Social History Sex Assigned At : Social History Observation Description Sex Assigned At Female Encounters Encounter Location Date Provider Diagnosis [facility] [address] [facility] [address] [place] [address] 03/24/2024 Provider Migration Plan Of Treatment Next Appt Details Provider Name:Sandie Madrid, 01/21/2025 11:30:00 AM, [address], [facility] [address], [place], [address], Progress Notes * JESU HARLEY LDOB: [birth year] (78 yo F)Acc No.[id number]:03/24/2024 Patient:?JESU HARLEY :1945???Age:78 Y???Sex:Female Address:[facility] [address], [place], [address] Subjective: * Chief Complaints: * ???EMR-Clive * Medical History:? * Surgical History:? * Hospitalization/Major Diagno stic Procedure:? * Medications:? Objective: * Vitals:? * Physical Examination:? Assessment: Plan: * Treatment: * Procedure Codes:? * true * Date:? Generated for Printi ng/Faxing/eTransmitting on:?12/05/2024 10:10 AM AEROSPACE TECHNICIAN
--- OUTSIDE RECORDS SUMMARY | 2024-12-05 10:31 | XMS_ITS | Clinical Summary ---
Author Organization [facility] [place] Address [address] [facility] [place] [address] Care Team Providers Care Casino Accountant Name Role Phone Unavailable Primary Care Provider [...] st Contact Info) Description 12/20/2024 9:00 AM TRAVEL COUNSELOR [employer] Office Visit [facility] - [address] [address] Leonor Davenport MD [address] [place] [address] Health Maintenance Due Date Last Done Comments DTAP/TDAP/TD VACCINES (1 - Tdap) 1966 PNEUMOCOCCAL VACCINE 65+ YEARS (1 of 1 - PCV) 09/12/19 97 ZOSTER VACCINE (1 of 2) 1997 OSTEOPOROSIS SCREENING 2012 RSV VACCINE (60+ or ) (1 - 1-dose 75+ series) 2022 INFLUENZA VACCINE (#1) 2024 Insurance [place] [id number]
[2024-12-05 11:34] LABS: Glucose Point of Care 225 mg/dl (65-105)
[2024-12-05] MEDS: INSULIN ASPART (*BKC) 100 UNITS/ML SUB-Q ×2 (11:52→17:11)
--- NOTE | 2024-12-05 11:59 | P.PNIM_ITS ---
Progress Note: A&P Assessment and Plan (1) Acute and chronic respiratory failure: Qualifiers: Respiratory failure complication: hypoxia Qualified Code(s): J96.21 - Acute and chronic respiratory failure with hypoxia Code(s): J96.20 - Acute and chronic respiratory failure, unspecified whether with hypoxia or hypercapnia Status: Acute Assessment and Plan: - CXR: Clear lungs - CTA chest: No pulmonary embolus. No dissection or aneurysmal dilatation. Right basilar infiltrate. Mild pulmonary congestion. - viral PCR negative, flu A positive on 11/24/2024 - pulmonology consulted, awaiting formal recs Suspect acute on chronic respiratory failure is multifactorial including pneumonia, COPD exacerbation, and sequela from recent influenza infection on 11/24. See respective sections. (2) Community acquired pneumonia: Qualifiers: Laterality: right Lung location: lower lobe of lung Qualified Code(s): J18.9 - Pneumonia, unspecified organism Code(s): J18.9 - Pneumonia, unspecified organism Status: Acute Assessment and Plan: - did not meet SIRS criteria. however blood cultures obtained on 12/04, follow. Lactic 1.5. - chest CTA showing right basilar infiltrate - risk factors and complicating factors: recent antibiotic courses, recent influenza A infection, COPD - started on HAP tx given recent failed ABX course: Cefepime, doxycycline p.o., vancomycin - MRSA PCR and sputum culture - add legionella antigen, pneumococcal antigen, Mycoplasma IgM - Viral PCR negative - CPT, vest b.i.d. as tolerated - supportive care: Tessalon Perles p.r.n. Mucinex veronica DuoNebs veronica Methylprednisolone IV veronica Tylenol p.r.n. - increasing supplemental O2 requirement: 4 liters nasal cannula Sa02 91-96% (3) COPD exacerbation: Code(s): J44.1 - Chronic obstructive pulmonary disease with (acute) exacerbation Status: Acute Assessment and Plan: - DuoNebs veronica - methylprednisone 60 mg IV veronica - continue home inhalers: Bretzi 2 puffs twice daily - Pulmonology consulted. (4) Chronic kidney disease: Qualifiers: Chronic kidney disease stage: unspecified stage Qualified Code(s): N18.9 - Chronic kidney disease, unspecified Code(s): N18.9 - Chronic kidney disease, unspecified Status: Chronic Assessment and Plan: - creatinine 1.43 and GFR 36, previously 1.45 and GFR 35 on 11/24/2024 - trend renal function - trend electrolytes, correct as needed (5) Diabetes: Qualifiers: Diabetes mellitus type: type 2 Diabetes mellitus long term care pharmacist insulin use: without long term care pharmacist use Diabetes mellitus complication status: without complication Qualified Code(s): E11.9 - Type 2 diabetes mellitus without c omplications Code(s): E11.9 - Type 2 diabetes mellitus without complications Status: Chronic Assessment and Plan: - hypoglycemia protocol - POC blood glucose ACHS - home medication: dapagliflozin - correct regimen ordered - high dose TIDWM, based off BMI - A1C 5.9% on 11/21/24 (6) HTN (hypertension): Qualifiers: Hypertension type: unspecified Qualified Code(s): I10 - Essential (primary) hypertension Code(s): I10 - Essential (primary) hypertension Status: Chronic Assessment and Plan: - chronic, currently 120/67 - continue home medications: Amlodipine 5 mg daily, Imdur 30 mg daily - monitor (7) NICOLA on CPAP: Code(s): G47.33 - Obstructive sleep apnea (adult) (pediatric); Z99.89 - Dependence on other enabling machines and devices Status: Acute Assessment and Plan: - does not tolerate CPAP (8) Anxiety: Code(s): F41.9 - Anxiety disorder, unspecified Status: Acute Assessment and Plan: * Sister today. * Alprazolam 0.25 mg PO TID PRN. Plan MRSA negative, Vancomycin d/c'd. Diet: Heart healthy GI Prophylaxis: Not currently indicated DVT Prophylaxis: SCDs Lines: Peripheral Code Status: Full code Subjective Date/time seen: 12/05/24 11:59 Interval history: Patient sitting up in bed eating lunch. Patient reports shortness of breath is improving. Patient denies chest pain, palpitations, headache, dizziness, nausea, or vomiting. Patient reports coughing up dark brown sputum. LE dopplers negative. Patient having anxiety in afternoon due to learning that sister had . Review of Systems Review of Systems: All systems reviewed & are unremarkable except as noted in HPI and below Exam Const: General: comfortable and no acute distress Eyes: Sclera: sclerae normal Resp: Effort & Inspection: normal respiratory effort Auscultation: wheezes expiratory wheezes and diminished lung sounds Cardio: Rate: regular rate Rhythm: regular rhythm GI: GI Palp: Yes Soft to palpation Auscultation: normal bowel sounds Skin: General skin exam: no rashes or lesions noted Neuro: Speech: normal speech Extrem: General: no pedal edema Psych: Mental Status: mental status grossly normal Affect: normal affect Objective Data Vital Signs Vital Signs: Vital Signs - 24 hr 12/04/24 12:18 12/04/24 12:20 12/04/24 12:26 Temperature 97.8 F Pulse Rate 57 L 55 L Respiratory Rate 14 20 Blood Pressure 160/47 H 160/47 H Pulse Oximetry 95 96 96 Oxygen Delivery Nasal Cannula Oxygen Flow Rate 4 12/04/24 13:02 12/04/24 13:05 12/04/24 13:24 Temperature 98.5 F Pulse Rate 66 56 L 57 L Respiratory Rate 18 16 18 Blood Pressure 145/61 H 145/61 H Pulse Oximetry 97 100 Oxygen Delivery Oxygen Flow Rate 12/04/24 13:32 12/04/24 13:39 12/04/24 14:23 Temperature Pulse Rate 60 61 68 Respiratory Rate 21 H 18 13 Blood Pressure 118/48 L 102/49 L Pulse Oximetry 99 95 Oxygen Delivery Oxygen Flow Rate 12/04/24 17:02 12/04/24 19:00 12/04/24 22:00 Temperature 98.3 F Pulse Rate 73 80 91 Respiratory Rate 18 20 16 Blood Pressure 138/56 L 138/56 L 152/86 H Pulse Oximetry 95 95 96 Oxygen Delivery Oxygen Flow Rate 12/04/24 22:08 12/05/24 03:11 12/05/24 03:14 Temperature Pulse Rate 80 Respiratory Rate 20 Blood Pressure Pulse Oximetry 96 93 Oxygen Delivery Nasal Cannula Nasal Cannula Oxygen Flow Rate 4 4 12/05/24 03:16 12/05/24 06:43 12/05/24 07:21 Temperature 97.8 F Pulse Rate 83 66 61 Respiratory Rate 20 18 16 Blood Pressure 120/67 Pulse Oximetry 94 Oxygen Delivery Oxygen Flow Rate 12/05/24 07:23 12/05/24 07:32 12/05/24 08:00 Temperature Pulse Rate 70 Respiratory Rate 14 Blood Pressure Pulse Oximetry 91 91 Oxygen Delivery Nasal Cannula Nasal Cannula Oxygen Flow Rate 4 4 Intake/Output Intake/Output: Intake & Output 12/02/24 12/03/24 12/04/24 12/05/24 23:59 23:59 23:59 23:59 Intake Total 150 740 Balance 150 740 Meds/Results Medications: Active Medications Generic Name Dose Route Start Last Admin Trade Name Edq PRN Reason Stop Dose Admin Acetaminophen 650 mg 12/04/24 19:25 12/04/24 22:28 Acetaminophen 325 Mg Tablet PO 650 mg Q4H PRN Administration Mild Pain (1-3) or Fever Albuterol/Ipratropium 3 ml 12/04/24 20:00 12/05/24 07:21 Ipratropium 0.5 Mg/Albuterol Sulfate 2.5 Mg Ampul.Neb 3 Ml INHALATION 3 ml Q6HRT VERONICA Administration Amlodipine Besylate 5 mg 12/05/24 09:00 12/05/24 08:33 Amlodipine Besylate 5 Mg Tablet PO 5 mg DAILY VERONICA Administration Benzonatate 100 mg 12/04/24 19:25 12/04/24 22:28 Benzonatate 100 Mg Capsule PO 100 mg TID PRN Administration Cough Dextrose 12.5 gm 12/04/24 22:34 Dextrose 50% 25 Gm/50 Ml Syringe IV PUSH PRN PRN Hypoglycemia Protocol Doxycycline Hyclate 100 mg 12/05/24 09:00 12/05/24 08:33 Doxycycline Hyclate 100 Mg Tablet PO 100 mg Q12HR VERONICA Administration Empagliflozin 25 mg 12/05/24 09:00 12/05/24 08:33 Empagliflozin 25 Mg Tablet BY MOUTH 25 mg DAILY VERONICA Administration Fluticasone/Umeclidinium/Vilanterol 1 puff 12/05/24 08:00 12/05/24 07:21 Fluticasone/Umeclidin/Vilanter 100-62.5-25 Mcg Ellipta INHALATION 1 puff DAILYRT VERONICA Administration Furosemide 20 mg 12/05/24 09:00 12/05/24 08:33 Furosemide 20 Mg Tablet PO 20 mg DAILY VERONICA Administration Glucagon 1 mg 12/04/24 22:34 Glucagon For Inj 1 Mg Vial IM PRN PRN Hypoglycemia Protocol Glucose 15 gm 12/04/24 22:34 Glucose Oral Gel 15 Gm Of Glucse In 37.5 Gm Tube PO PRN PRN Hypoglycemia Protocol Guaifenesin 600 mg 12/04/24 21:00 12/05/24 08:35 Guaifenesin 12 Hr 600 Mg Tabcr PO 600 mg Q12HR VERONICA Administration Cefepime HCl 2 gm in 50 mls @ 100 mls/hr 12/05/24 09:00 12/05/24 08:36 Maxipime 2 Gm/Ns 50 Ml IVPB 100 mls/hr Q12HR VERONICA Administration Dextrose 1,000 mls @ 100 mls/hr 12/04/24 22:34 Dextrose 5% 1,000 Ml IVPB PRN PRN Hypoglycemia Protocol Insulin Aspart 4 - 8 units 12/05/24 08:00 12/05/24 11:52 Insulin Aspart (*Bkc) 100 Units/Ml SUB-Q 4 units TIDWM VERONICA Administration Protocol Isosorbide Mononitrate 30 mg 12/05/24 09:00 12/05/24 08:33 Isosorbide Mononitrate 30 Mg Tab.Er.24h PO 30 mg DAILY VERONICA Administration Levothyroxine Sodium 75 mcg 12/05/24 06:30 12/05/24 05:46 Levothyroxine Sodium 75 Mcg Tablet PO 75 mcg DAILY@0630 VERONICA Administration Magnesium Oxide 400 mg 12/05/24 09:00 12/05/24 08:33 Magnesium Oxide 400 Mg Tablet PO 400 mg BID VERONICA Administration Melatonin 5 mg 12/04/24 22:00 12/04/24 22:28 Melatonin 5 Mg Tablet PO 5 mg HS [facility] Administration Methylprednisolone Sodium Succinate 60 mg 12/05/24 00:00 12/05/24 11:54 Methylprednisolone Sod Succ 125 Mg Vial IV PUSH 60 mg Q6HR VERONICA Administration Minoxidil 2.5 mg 12/05/24 09:00 12/05/24 09:58 Minoxidil 2.5 Mg Tablet PO 2.5 mg DAILY VERONICA Administration Miscellaneous Information 0 each 12/04/24 00:01 Vortioxetine Nonform Can Pt Bring From Home? XX 01/03/25 00:00 CLARIFY [facility] Non-Formulary Medication 20 mg 12/05/24 09:00 Vortioxetine [Trintellix] PO 01/04/25 08:59 DAILY [facility] Ondansetron HCl 4 mg 12/05/24 00:34 12/05/24 00:37 Ondansetron Inj 4 Mg/2 Ml Vial IV PUSH 4 mg Q6H PRN Administration Nausea And Vomiting Oxybutynin Chloride 10 mg 12/05/24 21:00 Oxybutynin Chloride Xl 5 Mg Tab.Er.24 PO HS [facility] Pregabalin 200 mg 12/05/24 09:00 12/05/24 08:33 Pregabalin (*Crx) 50 Mg Capsule PO 200 mg BID [facility] Administration Rosuvastatin Calcium 10 mg 12/05/24 21:00 Rosuvastatin 10 Mg Tablet PO HS [facility] Radiology Results: ITS Impressions Chest X-Ray 12/04/24 12:57 Impression: Clear lungs. Chest CTA 12/04/24 17:42 IMPRESSION: No pulmonary embolus. No dissection or aneurysmal dilatation. Right basilar infiltrate. Mild pulmonary congestion. Venous Doppler Study 12/05/24 09:30 IMPRESSION: 1. No deep venous thrombosis. Labs Labs: Laboratory Results - last 24 hr 12/04/24 12/04/24 12/04/24 12:29 13:04 14:04 WBC 6.7 RBC 4.60 Hgb 12.7 Hct 41.5 MCV 90.2 MCH 27.6 MCHC 30.6 L RDW 14.7 H Plt Count 231 MPV 11.4 H Immature Gran % (Auto) 0.6 H Neut % (Auto) 58.0 Lymph % (Auto) 23.4 [place] % (Auto) 14.0 H Eos % (Auto) 3.4 Baso % (Auto) 0.6 Lymph # (Auto) 1.57 [place] # (Auto) 0.9 H Eos # (Auto) 0.2 Baso # (Auto) 0.0 Abs Immat Gran (auto) 0.04 H Absolute Neuts (auto) 3.9 Absolute Nucleated RBC 0.000 Nucleated RBC % 0.0 PT INR APTT D-Dimer Puncture Site Left radial ABG pH 7.423 ABG pCO2 44.4 ABG pO2 83.1 ABG PO2/FiO2 Ratio 2.31 ABG HCO3 28.3 H ABG O2 Saturation 96.4 ABG O2 Content 17.3 ABG Base Excess 3.4 A-a Gradient 122.1 Oxyhemoglobin 95.6 Total Hemoglobin 12.8 O2 Delivery Device Nasal cannula O2 Liters/Min 4.0 FiO2 36 Sodium 142 Potassium 4.4 Chloride 106 Carbon Dioxide 29 Anion Gap 7 BUN 24 H Creatinine 1.47 H Estim Creat Clear Calc 33 Estimated GFR 34 L Glucose 106 POC Capillary Glucose Lactic Acid Calcium 8.3 L Phosphorus Magnesium Total Bilirubin 0.7 AST 26 ALT 14 Alkaline Phosphatase 59 Troponin I C-Reactive Protein NT-Pro-B Natriuret Pep Total Protein 7.0 Albumin 3.7 Lipase Urine Color Urine Appearance Urine pH Ur Specific [place] Urine Protein Urine Glucose (UA) Urine Ketones Ur Blood (Man) Urine Nitrate Urine Bilirubin Urine Urobilinogen Add Ur Microanalysis Leukocyte Esterase Rfl Urine RBC Urine WBC Ur Squamous Epith Cells Urine Bacteria Urine Casts Hyaline Casts Nasal MRSA (PCR) Influenza A (RT-PCR) Negative Influenza B (RT-PCR) Negative RSV (RT-PCR) Negative SARS-CoV-2 RNA (RT-PCR) Negative 12/04/24 12/04/24 12/04/24 14:21 15:08 15:54 WBC RBC Hgb Hct MCV MCH MCHC RDW Plt Count MPV Immature Gran % (Auto) Neut % (Auto) Lymph % (Auto) [place] % (Auto) Eos % (Auto) Baso % (Auto) Lymph # (Auto) [place] # (Auto) Eos # (Auto) Baso # (Auto) Abs Immat Gran (auto) Absolute Neuts (auto) Absolute Nucleated RBC Nucleated RBC % PT 13.4 INR 1.0 APTT 27.9 D-Dimer 1.17 H Puncture Site ABG pH ABG pCO2 ABG pO2 ABG PO2/FiO2 Ratio ABG HCO3 ABG O2 Saturation ABG O2 Content ABG Base Excess A-a Gradient Oxyhemoglobin Total Hemoglobin O2 Delivery Device O2 Liters/Min FiO2 Sodium Potassium Chloride Carbon Dioxide Anion Gap BUN Creatinine Estim Creat Clear Calc Estimated GFR Glucose POC Capillary Glucose Lactic Acid 3.0 H Calcium Phosphorus 3.5 Magnesium 2.5 H Total Bilirubin AST ALT Alkaline Phosphatase Troponin I < 0.012 < 0.012 C-Reactive Protein NT-Pro-B Natriuret Pep 158 H Total Protein Albumin Lipase 111 Urine Color Yellow Urine Appearance Clear Urine pH 7.5 Ur Specific [place] 1.014 Urine Protein 1+ H Urine Glucose (UA) Trace H Urine Ketones Negative Ur Blood (Man) Negative Urine Nitrate Negative Urine Bilirubin Negative Urine Urobilinogen 0.2 Add Ur Microanalysis Reviewed Leukocyte Esterase Rfl Negative Urine RBC 0-2 Urine WBC 0-5 Ur Squamous Epith Cells None seen Urine Bacteria None seen Urine Casts 0-2 Hyaline Casts Present Nasal MRSA (PCR) Influenza A (RT-PCR) Influenza B (RT-PCR) RSV (RT-PCR) SARS-CoV-2 RNA (RT-PCR) 12/04/24 12/04/2425 18:02 18:48 05:45 WBC 7.3 RBC 4.49 Hgb 12.3 Hct 40.9 MCV 91.1 MCH 27.4 MCHC 30.1 L RDW 14.5 Plt Count 236 MPV 10.6 H Immature Gran % (Auto) 1.2 H Neut % (Auto) 87.1 H Lymph % (Auto) 10.4 L [place] % (Auto) 1.2 L Eos % (Auto) 0.0 Baso % (Auto) 0.1 L Lymph # (Auto) 0.76 L [place] # (Auto) 0.1 Eos # (Auto) 0.0 Baso # (Auto) 0.0 Abs Immat Gran (auto) 0.09 H Absolute Neuts (auto) 6.4 Absolute Nucleated RBC 0.000 Nucleated RBC % 0.0 PT INR APTT D-Dimer Puncture Site ABG pH ABG pCO2 ABG pO2 ABG PO2/FiO2 Ratio ABG HCO3 ABG O2 Saturation ABG O2 Content ABG Base Excess A-a Gradient Oxyhemoglobin Total Hemoglobin O2 Delivery Device O2 Liters/Min FiO2 Sodium 142 Potassium 4.9 Chloride 106 Carbon Dioxide 28 Anion Gap 8 BUN 25 H Creatinine 1.43 H Estim Creat Clear Calc 33 Estimated GFR 36 L Glucose 159 H POC Capillary Glucose Lactic Acid 1.5 Calcium 8.6 Phosphorus Magnesium Total Bilirubin AST ALT Alkaline Phosphatase Troponin I C-Reactive Protein < 0.5 NT-Pro-B Natriuret Pep Total Protein Albumin Lipase Urine Color Urine Appearance Urine pH Ur Specific [place] Urine Protein Urine Glucose (UA) Urine Ketones Ur Blood (Man) Urine Nitrate Urine Bilirubin Urine Urobilinogen Add Ur Microanalysis Leukocyte Esterase Rfl Urine RBC Urine WBC Ur Squamous Epith Cells Urine Bacteria Urine Casts Hyaline Casts Nasal MRSA (PCR) Not detected Influenza A (RT-PCR) Influenza B (RT-PCR) RSV (RT-PCR) SARS-CoV-2 RNA (RT-PCR) 12/05/24 12/05/24 08:01 11:30 WBC RBC Hgb Hct MCV MCH MCHC RDW Plt Count MPV Immature Gran % (Auto) Neut % (Auto) Lymph % (Auto) [place] % (Auto) Eos % (Auto) Baso % (Auto) Lymph # (Auto) [place] # (Auto) Eos # (Auto) Baso # (Auto) Abs Immat Gran (auto) Absolute Neuts (auto) Absolute Nucleated RBC Nucleated RBC % PT INR APTT D-Dimer Puncture Site ABG pH ABG pCO2 ABG pO2 ABG PO2/FiO2 Ratio ABG HCO3 ABG O2 Saturation ABG O2 Content ABG Base Excess A-a Gradient Oxyhemoglobin Total Hemoglobin O2 Delivery Device O2 Liters/Min FiO2 Sodium Potassium Chloride Carbon Dioxide Anion Gap BUN Creatinine Estim Creat Clear Calc Estimated GFR Glucose POC Capillary Glucose 150 H 225 H Lactic Acid Calcium Phosphorus Magnesium Total Bilirubin AST ALT Alkaline Phosphatase Troponin I C-Reactive Protein NT-Pro-B Natriuret Pep Total Protein Albumin Lipase Urine Color Urine Appearance Urine pH Ur Specific [place] Urine Protein Urine Glucose (UA) Urine Ketones Ur Blood (Man) Urine Nitrate Urine Bilirubin Urine Urobilinogen Add Ur Microanalysis Leukocyte Esterase Rfl Urine RBC Urine WBC Ur Squamous Epith Cells Urine Bacteria Urine Casts Hyaline Casts Nasal MRSA (PCR) Influenza A (RT-PCR) Influenza B (RT-PCR) RSV (RT-PCR) SARS-CoV-2 RNA (RT-PCR) Quality VTE Prophylaxis VTE prophylaxis: mechanical ordered
[2024-12-05] MEDS: ALPRAZolam (*CRX) 0.25 MG TABLET PO ×2 (15:25→20:43)
[2024-12-05 16:28] LABS: Glucose Point of Care 207 mg/dl (65-105)
[2024-12-05] MEDS: BENZONATATE 100 MG CAPSULE PO (20:43)
[2024-12-05] MEDS: oxyBUTYnin CHLORIDE XL 5 MG TAB.ER.24 10 MG PO (20:43)
[2024-12-05] MEDS: ROSUVASTATIN 10 MG TABLET PO (20:43)
[2024-12-05] MEDS: MELATONIN 5 MG TABLET PO (20:44)
[2024-12-05] MEDS: ACETAMINOPHEN 325 MG TABLET 650 MG PO (20:50)
[2024-12-05 21:49] LABS: Glucose Point of Care 188 mg/dl (65-105)
[2024-12-06] VITALS (12 sets, daily range): BP systolic 92–123; BP diastolic 50–76; PULSE 64–79; RESP 18–20; TEMP 36.1–36.6; O2SAT 91–95
--- NOTE | 2024-12-06 | ECHO_ITS ---
Patient Info Name: Jacy Mills Age: 79 years : 1945 Gender: Female Ht: 62 in Wt: 225 lbs BSA: 2.17 m2 HR: 74 bpm BP: 119 / 50 mmHg Technical Quality: Poor Exam Date: 12/06/2024 2:50 PM Exam Location: Echo Lab Patient Status: Inpatient Admit Date: 12/04/2024 Staff Ordering Physician: Valery Villalba APRN Jigger Operator: Pantera Marmoleoj RDCS Attending Provider: Zaki Still MD Referring Physician: Deejay FELIX; Exam Type: CA echo dop color flow w con Study Info Indications - INCREASE OXYGEN DEMANDS - DIASTOLIC HEART FAILURE Complete two-dimensional, color flow and Doppler transthoracic echocardiogram is performed with contrast to opacify the left ventricle and to improve the deliniation of the left ventricle endocardial borders. Contrast/Agitated Saline Contrast/Ag. Saline: Definity Amount: 2.00 ml Existing IV Access: Yes Reason for Poor Study: patient body habitus Summary 1. Technically suboptimal study due to poor sonographic images. 2. Definity contrast administered improved wall motion interpretation. 3. Left ventricular chamber dimension is normal. 4. Left ventricular systolic function is hyperdynamic, estimated at >70%. 5. There is mild concentric increased left ventricular wall thickness. 6. The left ventricular diastolic function is grade I diastolic dysfunction. 7. E/e' 14 is mildly elevated. 8. The aortic valve is not well visualized. Cannot determine number of aortic valve leaflets. 9. There is moderate aortic valve sclerosis. 10. There is moderate aortic valve stenosis with a peak velocity of 317.77 cm/s, mean gradient of 24 mmHg, and aortic valve area of 1.49 cm2. 11. The mitral valve has mildly calcified annulus. 12. Mild pulmonary hypertension, estimated pulmonary arterial systolic pressure is 41 mmHg. 13. Dilated inferior vena cava with >50% collapse upon inspiration consistent with elevated right atrial pressure, 10 mmHg. Left Ventricle E/e' 14 is mildly elevated. Technically suboptimal study due to poor sonographic images. Definity contrast administered improved wall motion interpretation. Left ventricular chamber dimension is normal. Left ventricular systolic function is hyperdynamic, estimated at >70%. There is mild concentric increased left ventricular wall thickness. The left ventricular diastolic function is grade I diastolic dysfunction. Right Ventricle Right ventricular chamber dimension is not well visualized. Left Atria Left atrial chamber dimension is normal. Right Atria Right atrial chamber dimension is not well visualized. Aortic Valve The aortic valve is not well visualized. Cannot determine number of aortic valve leaflets. There is moderate aortic valve sclerosis. There is moderate aortic valve stenosis with a peak velocity of 317.77 cm/s, mean gradient of 24 mmHg, and aortic valve area of 1.49 cm2. There is no aortic valve regurgitation. Pulmonic Valve There is no pulmonic regurgitation. Mitral Valve The mitral valve has mildly calcified annulus. There is no mitral valve stenosis. There is no mitral valve regurgitation. Tricuspid Valve There is no tricuspid valve regurgitation. Mild pulmonary hypertension, estimated pulmonary arterial systolic pressure is 41 mmHg. Pericardium/Pleural There is no pericardial effusion. Inferior Vena Cava Dilated inferior vena cava with >50% collapse upon inspiration consistent with elevated right atrial pressure, 10 mmHg. Aorta The aortic root size at the sinus of Valsalva is normal. Left Ventricular Outflow Tract Name Value Normal LVOT 2D LVOT Diameter 1.84 cm LVOT Doppler LVOT Peak Gradient 9 mmHg LVOT Mean Gradient 5 mmHg LVOT VTI 38.46 cm LVOT VTI/AV VTI Ratio 0.56 LVOT Stroke Volume 102.57 ml LVOT CO 17.67 l/min LVOT CI 8.15 L/min/m2 Pulmonic Valve Name Value Normal RVOT Doppler RVOT Peak Gradient 3 mmHg PV Doppler PV Peak Gradient 7 mmHg Mitral Valve Name Value Normal MV Doppler MV Decel [facility] 485.59 cm/s2 MV PHT 0 s MV Area (PHT) 3.23 cm2 4.00-5.00 MV Diastolic Function MV E Peak Velocity 113.95 cm/s MV A Peak Velocity 137.72 cm/s MV E/A 0.83 MV Decel Time 0 s MV Annular TDI MV E/e' (Septal) 14.80 <=8.00 MV E/e' (Lateral) 13.51 <=8.00 MV E/e' (Average) 14.15 Tricuspid Valve Name Value Normal TV Regurgitation Doppler TR Peak Velocity 279.68 cm/s TR Peak Gradient 31 mmHg Estimated PAP/RSVP RA Pressure 10 mmHg <=5 PA Systolic Pressure 41 mmHg <36 RV Systolic Pressure 41 mmHg <36 Aorta Name Value Normal Ascending Aorta Ao Root Diameter (MM) 3.25 cm Ao Root Diam Index (MM) 1.50 cm/m2 Aortic Valve Name Value Normal AV Doppler AV Peak Velocity 317.77 cm/s AV Peak Gradient 40 mmHg AV Mean Gradient 24 mmHg AV VTI 69.05 cm AV Area (Cont Eq VTI) 1.49 cm2 >=3.00 AV Area (Cont Eq Abraham) 1.25 cm2 AV Regurgitation 2D LVOT Area 2.67 cm2 AV Regurgitation Doppler AR Decel Time [address] [facility] 171.20 cm/s2 AR PHT 1 s Ventricles Name Value Normal LV Dimensions 2D/MM IVS Diastolic Thickness (2D) 1.31 cm 0.60-1.00 LVID Diastole (2D) 4.92 cm 3.80-5.20 LVIW Diastolic Thickness (2D) 1.58 cm 0.60-0.90 LVID Systole (2D) 2.60 cm 2.20-3.50 LVOT Diameter 1.84 cm LV Mass (2D Cubed) 297.69 g 67.00-162.00 LV Mass Index (2D Cubed) 0.01 g/cm2 0.00-0.01 Relative Wall Thickness (2D) 0.64 LV Fractional Shortening/Ejection Fraction 2D/MM LV Fractional Shortening (2D) 44 % 27-45 LV EF (2D Teicholz) 75 % 54-74 LV Diastolic Volume (4C MOD) 95.98 ml LV EF (4C MOD) 76 % LV Diastolic Volume (2C MOD) 68.39 ml LV EF (2C MOD) 75 % LV Diastolic Volume (BP MOD) 84.23 ml 46.00-106.00 LV Diastolic Volume Index (BP MOD) 0.04 l/m2 0.03-0.06 LV Systolic Volume (BP MOD) 20.48 ml 14.00-42.00 LV Systolic Volume Index (BP MOD) 0.01 l/m2 0.01-0.02 LV EF (BP MOD) 76 % 54-74 LV Diastolic Length (4C) 7.34 cm LV Systolic Length (4C) 6.26 cm LV Stroke Volume (4C MOD) 72.99 ml Atria Name Value Normal LA Dimensions LA Dimension (MM) 3.83 cm 2.70-3.80 LA Volume (4C A-L) 68.29 ml LA Volume (BP A-L) 80.43 ml RA Dimensions RA Area (4C) 17.46 cm2 <=18.00 Report Signatures
[2024-12-06] MEDS: LEVOTHYROXINE SODIUM 75 MCG TABLET PO (05:51)
[2024-12-06] MEDS: methylPREDNISolone SOD SUCC 125 MG VIAL 60 MG IV PUSH ×4 (05:51→23:06)
--- NOTE | 2024-12-06 05:51 | PCRCNOTE ---
This RT woke pt up for 0200 updraft treatment, pt refused stating she wanted to sleep. Tx to resume at 0800.
[2024-12-06 06:55] LABS: Alanine Aminotransferase 14 U/L (6-35); Albumin Level 3.8 g/dL (3.5-5.1); Alkaline Phosphatase 58 U/L (38-126); Anion Gap 7 mmol/L (4-12); Aspartate Amino Transferase 22 U/L (14-36); Bilirubin,Total 0.5 mg/dL (0.2-1.3); Blood Urea Nitrogen 39 mg/dL (7-17); Calcium 8.9 mg/dL (8.4-10.2); Carbon Dioxide 30 mmol/L (22-30); Chloride 104 mmol/L (98-107); Estimated CRCL calculation 28 ml/min; Estimated Glomerular Filt Rate 29; Glucose 168 mg/dL (65-110); Potassium 5.1 mmol/L (3.4-5.0); Sodium 141 mmol/L (137-145)
[2024-12-06] MEDS: FLUTICASONE/UMECLIDIN/VILANTER 100-62.5-25 MCG ELLIPTA 1 PUFF INHALATION (06:58)
[2024-12-06] MEDS: IPRATROPIUM 0.5 MG/ALBUTEROL SULFATE 2.5 MG AMPUL.NEB 3 ML INHALATION ×3 (06:58→20:21)
[2024-12-06 08:40] LABS: Glucose Point of Care 201 mg/dl (65-105)
[2024-12-06 08:50] LABS: Basophils Percent Auto 0.1 % (0.2-1.2); Eosinophils Percent Auto 0.1 % (0-4.4); Hematocrit 40.2 % (37.0-47.0); Immature Granulocyte Percent A 0.7 % (0-0.5); Lymphocytes Absolute Auto 0.67 K/mm3 (0.9-3.2); Mean Corpuscular HGB Conc 29.9 g/dl (32-36); Mean Corpuscular Hemoglobin 27.6 pg (26-34); Mean Corpuscular Volume 92.6 fl (80-100); Mean Platelet Volume 11.4 fl (7.4-10.4); Monocytes Absolute Auto 0.4 K/mm3 (0.1-0.6); Neutrophils Absolute Auto 12.2 K/mm3 (1.3-6.7); Neutrophils Percent Auto 91.1 % (45.5-73.1); Platelet Count Result 243 k/mm3 (150-375); Red Blood Count 4.34 M/mm3 (4.2-5.4); Red Cell Distribution Width 14.7 % (11.5-14.5); White Blood Count 13.4 K/mm3 (4.5-10.0)
[2024-12-06] MEDS: ONDANSETRON INJ 4 MG/2 ML VIAL IV PUSH (09:06)
[2024-12-06] MEDS: ACETAMINOPHEN 325 MG TABLET 650 MG PO (09:06)
[2024-12-06] MEDS: ALPRAZolam (*CRX) 0.25 MG TABLET PO ×2 (09:06→21:11)
[2024-12-06] MEDS: CEFEPIME 2 GM/NS 50 ML 2 GM/50 ML BAG IVPB ×2 (09:07→21:10)
[2024-12-06] MEDS: DOXYCYCLINE HYCLATE 100 MG TABLET PO ×2 (09:08→21:11)
[2024-12-06] MEDS: minoxidiL 2.5 MG TABLET PO (09:08)
[2024-12-06] MEDS: FUROSEMIDE 20 MG TABLET PO (09:08)
[2024-12-06] MEDS: MAGNESIUM OXIDE 400 MG TABLET PO ×2 (09:08→17:12)
[2024-12-06] MEDS: amLODIPine BESYLATE 5 MG TABLET PO (09:08)
[2024-12-06] MEDS: guaiFENesin 12 HR 600 MG TABCR PO ×2 (09:08→21:11)
[2024-12-06] MEDS: PREGABALIN (*CRX) 50 MG CAPSULE 200 MG PO ×2 (09:08→17:13)
[2024-12-06] MEDS: EMPAGLIFLOZIN 25 MG TABLET BY MOUTH (09:08)
[2024-12-06] MEDS: INSULIN ASPART (*BKC) 100 UNITS/ML SUB-Q ×2 (09:08→12:52)
[2024-12-06] MEDS: ISOSORBIDE MONONITRATE 30 MG TAB.ER.24H PO (09:08)
--- NOTE | 2024-12-06 10:58 | P.CDI_ITS ---
CDI Query Clarification Request H&P from ER documented states history of diastolic heart failure. Please clarify if diastolic heart failure has been ruled in or ruled out. Please specify type and acuity of heart failure if known. Risk Factors: HPI - General Adult General Chief complaint: Shortness of Breath/Dyspnea Stated complaint: SOB Time Seen by Provider: 12/04/24 12:22 History of Present Illness HPI narrative: 79-year-old female with history of COPD, recurrent pneumonia and diastolic heart failure presenting with difficulty breathing. Patient says over last several days she has had increased oxygen requirements. She says she only wears oxygen at night and is requiring it during the day. She also has significant dyspnea on exertion and can barely walk across the room without becoming significantly short of breath. She has some lower extremity edema. She denies fevers chills chest pain abdominal pain or urinary symptoms. Clinical Indicators:BNP 158, Pt came in r/t SOB, increased o2 needs. Treatment: Lasix 20mg PO daily * Acute * Chronic * Acute on Chronic * Unknown * Systolic * Diastolic * Combined Systolic and Diastolic * Unknown <Ingrid Alaniz RN - Last Filed: 12/06/24 11:02> Clarified Diagnosis Clarified Diagnosis: Grade 1 diastolic dysfunction <Valery Villalba APRN - Last Filed: 12/07/24 15:01> Provider Comments Echocardiogram 12/06/24 showed: Summary 1. Technically suboptimal study due to poor sonographic images. 2. Definity contrast administered improved wall motion interpretation. 3. Left ventricular chamber dimension is normal. 4. Left ventricular systolic function is hyperdynamic, estimated at >70%. 5. There is mild concentric increased left ventricular wall thickness. 6. The left ventricular diastolic function is grade I diastolic dysfunction. 7. E/e' 14 is mildly elevated. 8. The aortic valve is not well visualized. Cannot determine number of aortic valve leaflets. 9. There is moderate aortic valve sclerosis. 10. There is moderate aortic valve stenosis with a peak velocity of 317.77 cm/s, mean gradient of 24 mmHg, and aortic valve area of 1.49 cm2. 11. The mitral valve has mildly calcified annulus. 12. Mild pulmonary hypertension, estimated pulmonary arterial systolic pressure is 41 mmHg. 13. Dilated inferior vena cava with >50% collapse upon inspiration consistent with elevated right atrial pressure, 10 mmHg. <Valery Villalba APRN - Last Filed: 12/07/24 15:01>
[2024-12-06 11:58] LABS: Glucose Point of Care 299 mg/dl (65-105)
--- NOTE | 2024-12-06 12:13 | P.PNIM_ITS ---
Progress Note: A&P Assessment and Plan (1) Acute and chronic respiratory failure: Qualifiers: Respiratory failure complication: hypoxia Qualified Code(s): J96.21 - Acute and chronic respiratory failure with hypoxia Code(s): J96.20 - Acute and chronic respiratory failure, unspecified whether with hypoxia or hypercapnia Status: Acute Assessment and Plan: - CXR: Clear lungs - CTA chest: No pulmonary embolus. No dissection or aneurysmal dilatation. Right basilar infiltrate. Mild pulmonary congestion. - viral PCR negative, flu A positive on 11/24/2024 - pulmonology consulted, awaiting formal recs Suspect acute on chronic respiratory failure is multifactorial including pneumonia, COPD exacerbation, and sequela from recent influenza infection on 11/24. See respective sections. (2) Community acquired pneumonia: Qualifiers: Laterality: right Lung location: lower lobe of lung Qualified Code(s): J18.9 - Pneumonia, unspecified organism Code(s): J18.9 - Pneumonia, unspecified organism Status: Acute Assessment and Plan: - did not meet SIRS criteria. however blood cultures obtained on 12/04, follow. Lactic 1.5. - chest CTA showing right basilar infiltrate - risk factors and complicating factors: recent antibiotic courses, recent influenza A infection, COPD - started on HAP tx given recent failed ABX course: Cefepime, doxycycline p.o., vancomycin - MRSA PCR and sputum culture - legionella antigen, pneumococcal antigen, Mycoplasma IgM - Viral PCR negative - CPT, vest b.i.d. as tolerated - supportive care: Tessalon Perles p.r.n. Mucinex veronica DuoNebs veronica Methylprednisolone IV veronica Tylenol p.r.n. - increasing supplemental O2 requirement: 4 liters nasal cannula Sa02 91-94% (3) COPD exacerbation: Code(s): J44.1 - Chronic obstructive pulmonary disease with (acute) exacerbation Status: Acute Assessment and Plan: - DuoNebs veronica - methylprednisone 60 mg IV veronica - continue home inhalers: Bretzi 2 puffs twice daily - Pulmonology consulted. - Echocardiogram ordered. (4) Chronic kidney disease: Qualifiers: Chronic kidney disease stage: unspecified stage Qualified Code(s): N18.9 - Chronic kidney disease, unspecified Code(s): N18.9 - Chronic kidney disease, unspecified Status: Chronic Assessment and Plan: - creatinine 1.73 and GFR 39, previously 1.45 and GFR 35 on 11/24/2024 - trend renal function - trend electrolytes, correct as needed (5) Diabetes: Qualifiers: Diabetes mellitus complication status: without complication Diabetes mellitus fci insulin use: without watermelon inspector use Diabetes mellitus type: type 2 Qualified Code(s): E11.9 - Type 2 diabetes mellitus without complications Code(s): E11.9 - Type 2 diabetes mellitus without complications Status: Chronic Assessment and Plan: - hypoglycemia protocol - POC blood glucose ACHS - home medication: dapagliflozin - correct regimen ordered - high dose TIDWM, based off BMI - A1C 5.9% on 11/21/24 (6) HTN (hypertension): Qualifiers: Hypertension type: unspecified Qualified Code(s): I10 - Essential (primary) hypertension Code(s): I10 - Essential (primary) hypertension Status: Chronic Assessment and Plan: - chronic, currently 119/50 - continue home medications: Amlodipine 5 mg daily, Imdur 30 mg daily - monitor (7) NICOLA on CPAP: Code(s): G47.33 - Obstructive sleep apnea (adult) (pediatric); Z99.89 - Dependence on other enabling machines and devices Status: Acute Assessment and Plan: - does not tolerate CPAP (8) Anxiety: Code(s): F41.9 - Anxiety disorder, unspecified Status: Acute Assessment and Plan: * Sister yesterday. * Alprazolam 0.25 mg PO TID PRN. (9) Tongue pain: Code(s): K14.6 - Glossodynia Status: Acute Assessment and Plan: * magic mouth wash Plan MRSA negative, Vancomycin d/c'd. Diet: Heart healthy GI Prophylaxis: Not currently indicated DVT Prophylaxis: SCDs Lines: Peripheral Code Status: Full code Subjective Date/time seen: 12/06/24 12:13 Interval history: Patient reports that she is open area under tongue from dental issues that rubbed hole in tongue, patient in the process of having dental work completed. Patient reports breathing is improving. Patient worried about heart failure. Patient would like to speak to correctional manager to learn what to eat. Granddaughter at bedside. Review of Systems Review of Systems: All systems reviewed & are unremarkable except as noted in HPI and below Exam Const: General: comfortable and no acute distress HENMT: Other: small hole noted under left side of tongue, no drainage noted. Eyes: Sclera: sclerae normal Resp: Effort & Inspection: normal respiratory effort Auscultation: diminished lung sounds Cardio: Rate: regular rate Rhythm: regular rhythm GI: GI Palp: Yes Soft to palpation Auscultation: normal bowel sounds Skin: General skin exam: no rashes or lesions noted Neuro: Speech: normal speech Extrem: General: no pedal edema Psych: Mental Status: mental status grossly normal Affect: Sad affect present (loss of sister) Objective Data Vital Signs Vital Signs: Vital Signs - 24 hr 12/05/24 13:10 12/05/24 13:23 12/05/24 14:00 Temperature 97.3 F L Pulse Rate 63 67 75 Respiratory Rate 16 16 16 Blood Pressure 123/45 L Pulse Oximetry 96 Oxygen Delivery Oxygen Flow Rate 12/05/24 20:45 12/05/24 21:25 12/05/24 21:48 Temperature 97.9 F Pulse Rate 73 69 Respiratory Rate 20 16 Blood Pressure 128/49 L Pulse Oximetry 95 95 Oxygen Delivery Nasal Cannula Oxygen Flow Rate 4 12/05/24 22:00 12/06/24 06:00 12/06/24 06:58 Temperature 97.0 F L Pulse Rate 70 64 71 Respiratory Rate 16 18 18 Blood Pressure 119/50 L Pulse Oximetry 94 93 Oxygen Delivery Nasal Cannula Oxygen Flow Rate 4 12/06/24 06:58 12/06/24 07:08 Temperature Pulse Rate 71 74 Respiratory Rate 18 20 Blood Pressure Pulse Oximetry Oxygen Delivery Oxygen Flow Rate Intake/Output Intake/Output: Intake & Output 12/03/24 12/04/24 12/05/24 12/06/24 23:59 23:59 23:59 23:59 Intake Total 150 1320 640 Output Total 400 350 Balance 150 920 290 Meds/Results Medications: Active Medications Generic Name Dose Route Start Last Admin Trade Name Freq PRN Reason Stop Dose Admin Acetaminophen 650 mg 12/04/24 19:25 12/06/24 09:06 Acetaminophen 325 Mg Tablet PO 650 mg Q4H PRN Administration Mild Pain (1-3) or Fever Albuterol/Ipratropium 3 ml 12/04/24 20:00 12/06/24 06:58 Ipratropium 0.5 Mg/Albuterol Sulfate 2.5 Mg Ampul.Neb 3 Ml INHALATION 3 ml Q6HRT VERONICA Administration Alprazolam 0.25 mg 12/05/24 14:52 12/06/24 09:06 Alprazolam (*Crx) 0.25 Mg Tablet PO 0.25 mg TID PRN Administration Anxiety Amlodipine Besylate 5 mg 12/05/24 09:00 12/06/24 09:08 Amlodipine Besylate 5 Mg Tablet PO 5 mg DAILY VERONICA Administration Benzonatate 100 mg 12/04/24 19:25 12/05/24 20:43 Benzonatate 100 Mg Capsule PO 100 mg TID PRN Administration Cough Dextrose 12.5 gm 12/04/24 22:34 Dextrose 50% 25 Gm/50 Ml Syringe IV PUSH PRN PRN Hypoglycemia Protocol Doxycycline Hyclate 100 mg 12/05/24 09:00 12/06/24 09:08 Doxycycline Hyclate 100 Mg Tablet PO 100 mg Q12HR VERONICA Administration Empagliflozin 25 mg 12/05/24 09:00 12/06/24 09:08 Empagliflozin 25 Mg Tablet BY MOUTH 25 mg DAILY VERONICA Administration Fluticasone/Umeclidinium/Vilanterol 1 puff 12/05/24 08:00 12/06/24 06:58 Fluticasone/Umeclidin/Vilanter 100-62.5-25 Mcg Ellipta INHALATION 1 puff DAILYRT VERONICA Administration Furosemide 20 mg 12/05/24 09:00 12/06/24 09:08 Furosemide 20 Mg Tablet PO 20 mg DAILY VERONICA Administration Glucagon 1 mg 12/04/24 22:34 Glucagon For Inj 1 Mg Vial IM PRN PRN Hypoglycemia Protocol Glucose 15 gm 12/04/24 22:34 Glucose Oral Gel 15 Gm Of Glucse In 37.5 Gm Tube PO PRN PRN Hypoglycemia Protocol Guaifenesin 600 mg 12/04/24 21:00 12/06/24 09:08 Guaifenesin 12 Hr 600 Mg Tabcr PO 600 mg Q12HR VERONICA Administration Cefepime HCl 2 gm in 50 mls @ 100 mls/hr 12/05/24 09:00 12/06/24 09:07 Maxipime 2 Gm/Ns 50 Ml IVPB 100 mls/hr Q12HR VERONICA Administration Dextrose 1,000 mls @ 100 mls/hr 12/04/24 22:34 Dextrose 5% 1,000 Ml IVPB PRN PRN Hypoglycemia Protocol Insulin Aspart 4 - 8 units 12/05/24 08:00 12/06/24 09:08 Insulin Aspart (*Bkc) 100 Units/Ml SUB-Q 4 units TIDWM VERONICA Administration Protocol Isosorbide Mononitrate 30 mg 12/05/24 09:00 12/06/24 09:08 Isosorbide Mononitrate 30 Mg Tab.Er.24h PO 30 mg DAILY VERONICA Administration Levothyroxine Sodium 75 mcg 12/05/24 06:30 12/06/24 05:51 Levothyroxine Sodium 75 Mcg Tablet PO 75 mcg DAILY@0630 VERONICA Administration Magnesium Oxide 400 mg 12/05/24 09:00 12/06/24 09:08 Magnesium Oxide 400 Mg Tablet PO 400 mg BID VERONICA Administration Melatonin 5 mg 12/04/24 22:00 12/05/24 20:44 Melatonin 5 Mg Tablet PO 5 mg HS [facility] Administration Methylprednisolone Sodium Succinate 60 mg 12/05/24 00:00 12/06/24 05:51 Methylprednisolone Sod Succ 125 Mg Vial IV PUSH 60 mg Q6HR VERONICA Administration Minoxidil 2.5 mg 12/05/24 09:00 12/06/24 09:08 Minoxidil 2.5 Mg Tablet PO 2.5 mg DAILY VERONICA Administration Miscellaneous Information 0 each 12/04/24 00:01 Vortioxetine Nonform Can Pt Bring From Home? XX 01/03/25 00:00 CLARIFY [facility] Non-Formulary Medication 20 mg 12/05/24 09:00 Vortioxetine [Trintellix] PO 01/04/25 08:59 DAILY [facility] Ondansetron HCl 4 mg 12/05/24 00:34 12/06/24 09:06 Ondansetron Inj 4 Mg/2 Ml Vial IV PUSH 4 mg Q6H PRN Administration Nausea And Vomiting Oxybutynin Chloride 10 mg 12/05/24 21:00 12/05/24 20:43 Oxybutynin Chloride Xl 5 Mg Tab.Er.24 PO 10 mg HS [facility] Administration Pregabalin 200 mg 12/05/24 09:00 12/06/24 09:08 Pregabalin (*Crx) 50 Mg Capsule PO 200 mg BID [facility] Administration Rosuvastatin Calcium 10 mg 12/05/24 21:00 12/05/24 20:43 Rosuvastatin 10 Mg Tablet PO 10 mg HS [facility] Administration Radiology Results: ITS Impressions Chest X-Ray 12/04/24 12:57 Impression: Clear lungs. Chest CTA 12/04/24 17:42 IMPRESSION: No pulmonary embolus. No dissection or aneurysmal dilatation. Right basilar infiltrate. Mild pulmonary congestion. Venous Doppler Study 12/05/24 09:30 IMPRESSION: 1. No deep venous thrombosis. Labs Labs: Laboratory Results - last 24 hr 12/05/24 12/05/24 12/06/24 16:25 21:46 05:56 WBC 13.4 H RBC 4.34 Hgb 12.0 Hct 40.2 MCV 92.6 MCH 27.6 MCHC 29.9 L RDW 14.7 H Plt Count 243 MPV 11.4 H Immature Gran % (Auto) 0.7 H Neut % (Auto) 91.1 H Lymph % (Auto) 5.0 L [place] % (Auto) 3.0 Eos % (Auto) 0.1 Baso % (Auto) 0.1 L Lymph # (Auto) 0.67 L [place] # (Auto) 0.4 Eos # (Auto) 0.0 Baso # (Auto) 0.0 Abs Immat Gran (auto) 0.10 H Absolute Neuts (auto) 12.2 H Absolute Nucleated RBC 0.000 Nucleated RBC % 0.0 Sodium Potassium Chloride Carbon Dioxide Anion Gap BUN Creatinine Estim Creat Clear Calc Estimated GFR Glucose POC Capillary Glucose 207 H 188 H Calcium Total Bilirubin AST ALT Alkaline Phosphatase Total Protein Albumin 12/06/24 12/06/24 12/06/24 05:58 08:34 11:53 WBC RBC Hgb Hct MCV MCH MCHC RDW Plt Count MPV Immature Gran % (Auto) Neut % (Auto) Lymph % (Auto) [place] % (Auto) Eos % (Auto) Baso % (Auto) Lymph # (Auto) [place] # (Auto) Eos # (Auto) Baso # (Auto) Abs Immat Gran (auto) Absolute Neuts (auto) Absolute Nucleated RBC Nucleated RBC % Sodium 141 Potassium 5.1 H Chloride 104 Carbon Dioxide 30 Anion Gap 7 BUN 39 H D Creatinine 1.73 H Estim Creat Clear Calc 28 Estimated GFR 29 L Glucose 168 H POC Capillary Glucose 201 H 299 H Calcium 8.9 Total Bilirubin 0.5 AST 22 ALT 14 Alkaline Phosphatase 58 Total Protein 7.0 Albumin 3.8 Quality VTE Prophylaxis VTE prophylaxis: mechanical ordered
[2024-12-06] MEDS: LIDOCAINE 2% VISC SOLN 30 ML, ALUMINUM/MAGNESIUM/SIMETH SUSP 30 ML, diphenhydrAMINE HCl... PO ×3 (13:45→20:13)
[2024-12-06] MEDS: PERFLUTREN LIPID MICROSPHERES 1.5 ML VIAL DILUTED TO 10 ML TOTAL VOLUME IV PUSH (15:55)
--- NOTE | 2024-12-06 16:05 | IVDEFINITY ---
Prior to administration of IV Definity the patient was educated on the risks and benefits of the imaging enhancing agent including potential adverse side effects. The patient verbalized understanding. Allergies were verified. No exclusion criteria were identified and at least one of the following inclusion criteria were met: 1) physician request, 2) patient technically difficult to image (per the [place] [employer] guidelines of two or more segments not discernable within the apical view), or 3) questionable left ventricular function. ?
[2024-12-06 16:47] LABS: Glucose Point of Care 117 mg/dl (65-105)
[2024-12-06] MEDS: MELATONIN 5 MG TABLET PO (21:11)
[2024-12-06] MEDS: oxyBUTYnin CHLORIDE XL 5 MG TAB.ER.24 10 MG PO (21:11)
[2024-12-06] MEDS: ROSUVASTATIN 10 MG TABLET PO (21:11)
[2024-12-06] MEDS: BENZONATATE 100 MG CAPSULE PO (21:11)
--- NOTE | 2024-12-06 21:53 | PM.CNPUL ---
Assessment and Plan Assessment and plan (1) Chronic obstructive pulmonary disease: Qualifiers: COPD type: unspecified COPD Qualified Code(s): J44.9 - Chronic obstructive pulmonary disease, unspecified Code(s): J44.9 - Chronic obstructive pulmonary disease, unspecified Status: Acute Assessment and Plan: She has documented COPD, uses Breztri as her controller medication, has a nebulizer at home, did not use this prior to admission. This did not make a difference, she had post influenza pneumonia which is likely bacterial would have had to come in anyway due to hypoxemia, need for intravenous antibiotics, and management in an elderly high risk patient already using O2 at night 3 L/min. (2) NICOLA (obstructive sleep apnea): Code(s): G47.33 - Obstructive sleep apnea (adult) (pediatric) Status: Acute Assessment and Plan: She tells me that she cannot tolerate PAP, this is a long-standing problem. (3) Acute and chronic respiratory failure: Qualifiers: Respiratory failure complication: hypoxia Qualified Code(s): J96.21 - Acute and chronic respiratory failure with hypoxia Code(s): J96.20 - Acute and chronic respiratory failure, unspecified whether with hypoxia or hypercapnia Status: Acute Assessment and Plan: Normally uses oxygen 3 L only at night, has had oxygen deficit this admission requiring 4 L during the day to maintain adequate oxygenation. This is expected to be weaned prior to discharge. She will need a home oxygen study prior to discharge. She was playing have PFT soon but will need to fully recover before this testing. (4) PNA (pneumonia): Qualifiers: Pneumonia type: due to unspecified organism Laterality: unspecified laterality Lung location: unspecified part of lung Qualified Code(s): J18.9 - Pneumonia, unspecified organism Code(s): J18.9 - Pneumonia, unspecified organism Status: Acute Assessment and Plan: The patient has post influenza pneumonia, one of the most common complications of having influenza, and why it is important to be vaccinated against influenza. She has underlying COPD which is a risk factor and she had influenza a diagnosed November 24. Strep and staph are the most common etiologies seen in this setting. (5) Secondary pulmonary hypertension: Status: Acute Assessment and Plan: Echo 12/06/2024 shows mild pulmonary hypertension, RVSP is 41 mmHg, this is secondary to underlying COPD, hypoxemia, untreated obstructive sleep apnea. Plan plan: Continue current antibiotics, Cefepime and doxycycline. MRSA swab was negative 12/04/24. Urine antigens are pending for S pneumoniae and Legionella. Add Cornet PEP valve to help clear secretions. The vibratory vest is helping significantly, and she may qualify for one at home as her baseline CT shows bronchiectasis. Also, she is benefitting from pneumatic compression stockings, using them in the hospital as a form of DVT prophylaxis, having improvement in her peripheral edema. Her activity level is limited due to spinal stenosis, chronic back pain as well as COPD, deconditioning. She has had pulmonary rehab earlier in 2023. Continue management of COPD, lower solumedrol dose IV, transition when she has less rhonchi and wheezing. Delay her scheuduled PFTs until full recovers from this event. History of Present Illness History of Present Illness Consult date: 12/06/24 Requesting physician: Miky Gallegos MD Chief complaint: Chronic respiratory failure Narrative: pt was seen Dec 06, 2024 at 21:55 Room 332-1 NEW: Jacy Mills is a 79-year-old woman, known to our clinic, last visit 09/18/24, COPD and NICOLA. She was in the ER Nov 24 with shortness of breath, cough, congestion, rigors, (+) influenza A, pneumonia, wanted to go home after admission was offered. Returned Dec 04 with increased symptoms and higher O2 requirement. She usually uses O2, 2-3L NC at night, none in the day. On admission, is using 3-4L NC 30/05. She also had non-productive cough, minimal congestion, and wheezing. She denies fever, chills, nausea, vomiting, chest pain, or body aches. She completed 2 rounds of antibiotics and is using rescue medication without much improvement. continues to use controller meds, did not think to use nebulizer with rescue medications. She tells me that she feels much better today compared to admission, is coughing with some sputum being expectorated. The vibratory vest is helping a great deal; she is interested in having a vibratory vest and pneumatic compression hose at home. She says that this admission, using the compression hose, swelling which she has had in her legs for years has finally resolved. She has not used PAP for quite a while, cannot stand the feel of the mask on her face. PMH of CKD, anxiety/depression, hypothyroidism, diabetes, GERD, hypertension, hyperlipidemia, CHF, asthma, NICOLA, COPD, insomnia, former smoker, and restless leg syndrome. She had COVID November 2023, a year ago. DATA * 12/06/2024; echo : Summary 1. Technically suboptimal study due to poor sonographic images. 2. Definity contrast administered improved wall motion interpretation. 3. Left ventricular chamber dimension is normal. 4. Left ventricular systolic function is hyperdynamic, estimated at >70%. 5. There is mild concentric increased left ventricular wall thickness. 6. The left ventricular diastolic function is grade I diastolic dysfunction. 7. E/e' 14 is mildly elevated. 8. The aortic valve is not well visualized. Cannot determine number of aortic valve leaflets. 9. There is moderate aortic valve sclerosis. 10. There is moderate aortic valve stenosis with a peak velocity of 317.77 cm/s, mean gradient of 24 mmHg, and aortic valve area of 1.49 cm2. 11. The mitral valve has mildly calcified annulus. 12. Mild pulmonary hypertension, estimated pulmonary arterial systolic pressure is 41 mmHg. 13. Dilated inferior vena cava with >50% collapse upon inspiration consistent with elevated right atrial pressure, 10 mmHg. * alpha-1 phenotype MM, normal * 12/06/24; white blood cell count elevated at 13.4, initially on admission 6.7, hemoglobin is 12, hematocrit 40.2%, platelet count 243 K. * 12/04/2024, arterial blood gas, pH 7.42, pCO2 44.4, PO2 83.1, HC03 28.3, saturation 96.4%, 4 L /min. She normally does not use supplemental oxygen during the day at home. * 12/04/24; CTA = IMPRESSION: No pulmonary embolus. No dissection or aneurysmal dilatation. Right basilar infiltrate. Mild pulmonary congestion. * 12/04/24 CXR Impression: Clear lungs. * 11/24/24 CXR; IMPRESSION: 1. Mild airspace opacities in left lower lung zone, consistent with atelectasis versus pneumonia. 10/10/2024: Outpatient [facility] rheumatology progress note, Dr. Zarina Carroll. diagnosis: Recurrent pneumonia, positive rheumatoid factor and Scl 70 antibody x1, negative on repeat testing. Last seen on 08/10/2024 with positive rheumatoid factor and a low positive Scl 70 antibody with recurrent pneumonias with some interstitial changes on her CT scan. Also reported polyarticular joint pain involving both hands and shoulders. She was also dealing with symptoms of a COPD exacerbation. Extensive serologic panel including MyoMarker panel, Anca vasculitis panel and TONEY panel and rheumatoid arthritis panel will or were all unremarkable. Now returns for follow-up. Continues to experience baseline shortness of breath. Denies any inflammatory joint pain. Denies Raynaud symptoms. No skin changes to suggest diagnosis of scleroderma. Weight 233 lb. Distant breath sounds with wheezes noted bilaterally. Data: 10/10/2024 creatinine 1.53. 08/10/2024: CRP 36.8, rheumatoid factor 15, ESR 30, JOSE negative, double-stranded DNA negative, TONEY antibody negative, anti Nancy 1 antibody negative, EJ antibody negative, KU antibody negative, mi -2 antibodies negative, OJ antibodies negative, PL - 12 antibodies negative, [address] -7 antibody negative, SRP auto antibodies negative, anti U1 FINAL ASSEMBLY WORKER antibody negative, anti NMDA 5p1 40 antibody negative, anti NX P - 2p1 40 antibody negative, anti PD1 55-140 antibody negative, poly situs p.m.-Scl antibody negative, SSA 52 IgG negative, Anca indeterminate, myeloperoxidase negative, proteinase 3-, anti you 2 S an FINAL ASSEMBLY WORKER negative, febrile air and use 3 antibody negative, CCP negative. Assessment and plan: Recurrent pneumonia with interstitial changes on CT with positive rheumatoid factor and Scl 70. Patient reported some poly arthralgias involving shoulders and hands that appeared noninflammatory in nature. Repeat serologic testing including RA panel, toney and additional serologies including MyoMarker panel were negative. No exam findings to suggest scleroderma rheumatoid arthritis. Modified peng mints skin score of 0. Repeat serologies today to exclude any lab error. The patient is to return to clinic as needed. 10/24/24: CT scan of the chest with mild septal thickening and reticulations greatest in the right lower lobe peripherally and increased from 03/05/2024. mild changes in the upper lobe without change from 03/05/2024. Mild bronchiectasis is unchanged. Will follow patient clinically. DATA: 10/24/24: EXAMINATION:CT diagnostic chest wo con DATE: 10/24/2024 13:22 INDICATION: Chronic obstructive pulmonary disease, unspecified.TECHNIQUE: Computed tomography (CT) of the chest was performed without intravenous contrast. Automated exposure control and iterative reconstruction technique were employed. The dose-length product (DLP) was 826.75 mGy-cm. COMPARISON: Chest CT 03/05/24, CT abdomen and pelvis 11/22/20 FINDINGS: There is mild emphysema. There are peripheral groundglass opacities with septal thickening in the upper lobes. There is mild atelectasis in the inferior lungs. There is mild bronchiectasis in the inferior lungs. No pleural effusion. The heart size is normal. There are coronary artery calcifications. No pericardial effusion. There are cysts in the liver measuring up to 17 mm. There are changes of cholecystectomy. IMPRESSION: 1. Mild emphysema and mild chronic interstitial lung disease. 09/18/2024: This is a follow-up encounter from 06/12/2024 for COPD, ILD, NICOLA intolerant to BiPAP and morbid obesity. On 06/12/2024, regarding her COPD, she was recently getting over an exacerbation requiring 2 rounds of prednisone and was better.? She was stable with 1/4 block HOWELL, M MRC grade of 4, CAT score 21 and had limitations due to spinal stenosis as well as breathing.? She was on breasts tree 2 puffs b.i.d. rescue albuterol 1 time a month no oxygen at rest and 2 L with activity as prescribed.? I recommended pulmonary rehabilitation. On 06/12/2024, regarding her ILD, CT scan on 03/05/2024 showed mild subpleural reticulations with minimal interstitial thickening that had improved from 12/19/2023 with a positive Scl 70, positive anti KU, positive anti SRP, positive anti M 1-2 antibodies.? She developed new arthritis over the last 3-4 months and had new requirements for oxygen over the last year.? I referred her to [facility] rheumatology. Appointment was scheduled for 08/10/2024.? On 06/12/2024, regarding her NICOLA, she was intolerant to multiple masks, had partial dentures so not a candidate for an oral appliance and her BMI was 46.3 which is too higher for the inspire device.? I told her to wear 2 L at night and would do an overnight oximetry on room air.? Her weight was 237 lb he representing a 2 lb weight gain since 02/29/2024. 06/15/2024: Overnight oximetry on room air with hypoxemia.? I prescribed 3 L nasal cannula.? 07/11/2024: Presented to the emergency department with SOB for 1 week with productive cough.? She had noticed some swelling in her extremities.? Room air saturations 97%.? Diffuse wheezing.? White blood cell count 10.1, eosinophils 2.4%=242/uL.? BNP was 100, influenza, RSV, COVID negative she was treated with acute bronchitis and COPD exacerbation with prednisone, azithromycin and Augmentin. 07/17/2024: Overnight oximetry on 3 L nasal cannula with adequate oxygenation. 08/10/24: I spoke with [facility]umat[facility], Dr. Carroll. reviewed patient's positive serologies. No skin findings consistent with scleroderma. Additional serologies to be sent, x-rays hands and shoulders to be sent. Additional immunosuppressants may be warranted depending on these studies. Patient had coarse wheezes and declined emergency room referral. We discussed the 2 week taper of prednisone ( 40 mg x 3 days, 30 mg x 3 days, 20 mg x 3 days, 10 mg x 3 days, 5 mg x 3 days) and I will prescribe azithromycin for 5 days. Today she tells me that She took prednisone on 08/10/2024 but noticed no improvement with the prednisone and azithromycin. She continued to have dyspnea on exertion, shortness of breath and rattling in her chest. She denied fevers. She really remain short of breath dressing and undressing, she has shortness of breath and back pain walking room to room and feels that she could walk 1/8 of a block which is somewhat worse than it was on 06/12/2024. She has no phlegm production. The patient was no better up until 2 days ago when she started to improve. Currently she is better and overall she tells me she is breathing better than she has over the last 6 years. She continues on breasts tree 2 puffs twice a day, short-acting beta agonist inhaler 0 to 2 times a day, albuterol nebulizer 1 time a week. She remains on Lasix 20. Overall she feels like she has gained weight but her weight is actually 2 lb less than she weighed on 06/12/2024. The patient is not wearing oxygen at rest and intermittently wearing oxygen at 2 L as prescribed with activity. She is using 3 L oxygen at night. She does not have a home pulse oximeter. Her CAT score today is 23. She continues with shoulder pain and lower back pain. She has not heard the results of her blood tests her x-rays from [facility] and has a follow-up appointment on 10/22/2024. She does not have daytime hypersomnia. She is using 3 L nasal cannula at night and her Trevorton score is 1. The patient is unwilling to receive the COVID vaccine and will consider influenza, RSV vaccines and the pneumonia shot. Prior visits 06/12/2024: This is a follow-up encounter from 02/29/2024 for GOLD grade 2 COPD, history of COVID pneumonia, NICOLA intolerant of BiPAP, and obesity.? On 02/29/2024, regarding her COPD, she had worsening HOWELL, minimal benefit from Breztri, M MRC grade of 4 and she could walk 1/4 of a block.? She is also limited by spinal stenosis and severe back pain.? She is supposed to be on Lasix 20 a day and she takes this once a month, she never recovered from her COVID pneumonia in December 07, 2023.? I ordered an alpha-1 genotype, PFTs, [address] scan.? I referred her to pulmonary rehabilitation.? I told her to be compliant with her Lasix 20 a day, she had untreated NICOLA but obtained a new mask recently and would start wearing her machine.? She declined vaccines. On 02/29/2024, regarding her COVID pneumonia on 12/07/2023, she felt she had completely recovered.? CT scan, 6 minute walk and PFTs ordered as above. On 02/29/2024, regarding her NICOLA on BiPAP.? She was noncompliant due to poorly fitting mask with a leak the caused a headache.? She had a new mask on 02/28/2024 and I encouraged her to wear her mask every night.? Her weight was 235.9 lb representing is 0.9 lb weight gain. 02/29/2024: Alpha 1 anti trypsin genotype MM. 03/05/2024: CT scan of the chest showed bilateral upper lobe mild subpleural reticulations with minimal interstitial thickening.? The interstitial changes had improved since 12/19/2023.? There is no evidence of post COVID organizing pneumonia or post COVID ILD. 03/20/2024:? Session 1 pulmonary rehabilitation, total exercise time 5 minutes on room air. 03/31/2024: Download from 03/02/2024 through 03/31/2024: Download with usage greater than or equal to 4 hours at 7%, AHI 1.2 median leak 29, I called the patient and left a voice message.? Discussed with the patient on 04/11/2024, patient is noncompliant with BiPAP because of mask leaking despite adjusting it tighter.? She has tried many different types of masks.? She does not qualify for an oral mandibular device because she has complete dentures on the top.? Does not qualify for an inspire system because her BMI was greater than 35.? I performed an overnight oximetry on room air. 04/09/2024:? PFTs demonstrated a moderate restrictive abnormality with an FEV1 of 1.26 L, 68%, ratio 70%, TLC 3.13 L, 68% predicted.? Normal DLCO.? In comparison to 10/13/2023 there had been a significant decrease in the functional residual capacity, residual volume with no other significant changes. 04/09/2024:? Home O2 assessment patient requires 2 L with activity and no oxygen at rest. 04/12/24: Serologies demonstrate rheumatoid factor 16.6, anti CCP peptide antibody < 16, Scl-70 Ab positive at 2.2 with normal being less than 1. CPK 321. Aldolase positive at 9.5 with normal being less than 8.1. Anca screen negative.? MyoMarker 3+ profile weakly positive for anti KU antibody, weak positive anti SRP antibody, weak positive anti Mi-2 antibody. I called the patient and she tells me that she has developed hand arthritis over the last 3-4 months. Her HOWELL has gotten much worse over the last few months. She also tells me that she had 2 nieces with lupus and a cousin with hardening of the skin and tight skin around her mouth. The patient denies any tight skin on her hands or mouth at this time. Review of her imaging back to 12/07/2017 demonstrates patchy ground-glass opacities with an upper lobe predominance. Imaging on 03/05/2024 again demonstrates mild subpleural reticulation and interstitial thickening in the upper lobes with minimal ground-glass opacities. Patient has new oxygen requirements and now requires oxygen for the last year with 2 L with activity. The patient may have scleroderma with ILD and I referred to [facility] rheumatology. The patient is in agreement. Patient tells me she has an appointment August 10, 2024 Today she tells me that she went to the emergency department on 05/28/2024 with bronchitis and was given prednisone and Augmentin for 5 days. She completed this and was unchanged and went to her PCP and was given antibiotics and steroids approximately 06/07/2024. The patient states she has been off of these for 2-3 days an overall she is better. She coughs up yellow phlegm occasionally and has not had any phlegm in the last 2 days. She has no hemoptysis. Patient has HOWELL is the same at 1/4 block, she stops because of spinal stenosis pain as well as breathing. Her M MRC grade is 4. The patient is taking breasts tree 2 puffs b.i.d., short-acting beta agonist rescue 1 time a month. The patient is taking Lasix 20 a day. This has helped her edema. The patient is wearing 2 L with activity and no oxygen at rest as prescribed. She has checked her rest room air saturations at home and they are 93%. Her CAT score has improved from 25 to a value of 21. The patient is interested in restarting pulmonary rehabilitation. Regarding her NICOLA she is intolerant to any mass. She has upper dentures and would not qualify for a mandibular advice and her BMI is 46.3 making her ineligible for the inspire system. The patient states she had an overnight oxygen assessment but we do not have the results in our system. Currently the patient is not wearing any oxygen at night. Her Trevorton score is 2. Regarding her hand and shoulder arthritis this is been clinically stable. The patient denies any tightness in her skin. Patient's weight is 237 representing a 1 lb weight gain since 02/29/2024. Prior visits 02/29/2024: This is a follow-up encounter from 01/05/2024 for NICOLA on BiPAP, COPD, post COVID.? On 01/05/2024, regarding her NICOLA, she was on BiPAP and her pressure was decreased from 20/16 to 16/12 due to intolerance, pressure and leaks.? She responded struggling with the BiPAP despite 2 mask fittings.? Download with poor compliance at 37%, average usage per night 1 hour 1.2 hours, AHI 0.8.? Patient weighed 235 lb.? On 01/05/2024, regarding her COPD, Former smoker for 50 years quit in 2019.? CAT score was 18 (improved from 22 on the last visit).? It was felt she may have asthma-COPD overlap and the restriction may be related to obesity.? Other factors for HOWELL include obesity and lumbar stenosis back pain.? She cannot tolerate dry powder inhalers.? The plan was to stop of the Bevespi and start breztri 2 inhalations b.i.d..? Set up with a new nebulizer with albuterol. On 01/05/2024, regarding her post COVID pneumonia (12/07/2023), she was treated with dexamethasone, cefdinir and azithromycin.? Discharged on 12/11/2023. To urgent care 12/19/[address] with continued symptoms [address] scan with mild patchy ground-glass opacities bilaterally.? Treated with doxycycline. Plan for repeat PFTs , CT scan, and 6 minute walk on 03/18/2024. Today she tells me that she has had no hospitalizations or exacerbations. The patient states that she started the breztri and takes 2 puffs twice a day. Overall she has noticed minimal improvement. She is taking no rescue albuterol. Her major complaint is HOWELL. When the patient gets up to walk she has both severe back pain from spinal stenosis as well as HOWELL. Usually her back pain begins 1st but she says the back pain does not cause her HOWELL. She has no rest SOB. The patient states that she wheezes daily. She has minimal cough or phlegm production. One year ago she says she could walk half a block and currently she says that she can walk less than that may be 1/4 of a block. She can walk room to room. She cannot walk in the grocery store. She does get short of breath at dressing. Her M MRC grade is 4. Her CAT score today is 25. Regarding her NICOLA she had an old fullface mask that leaked and would give her a headache. Yesterday she got a new mask that has a much payroll coordinator leak and feels much more comfortable for the patient. She wore it last night and said it felt good and she slept for 3 hours and then got up to urinate and forget to put the mask back on. Her Trevorton score is 0 and she feels tired all day. Download from 12/01/2023 through 02/28/2024 from [email or web address].? Patient is on BiPAP 22/10 in the spontaneous mode.? Total usage days is 47%. ?Usage days greater than or equal to 4 hours is 11%. ?Average usage on days used is 2 hours and 36 minutes.? AHI 0.6.? Apnea index 0.4, hypopnea index 0.2, central apnea index 0.0.? Median leak 34.3, 95th percentile leak 79.7, maximal leak 98.5.? Median tidal volume 509.? Median respiratory rate 18.? Median minute ventilation 9.2.? I interpret this download as very poor compliance, adequate pressures and high leak. Her weight today is 235.9 representing a 0.9 lb weight gain since 01/05/2024. The patient is supposed to be on Lasix 20 mg a day per her certified hyperbaric technician and she says she only takes it 1 time a month when she feels swollen. Prior visits NICOLA 6 week follow-up regarding COPD and NICOLA. Hx: CAD, heart failure, CKD, spinal stenosis, NICOLA (intolerant to PAP therapy), COPD, obesity. Patient was hospitalized 12/07-12/11 regarding COVID pneumonia. CXR showed mild airspace opacities in bilateral mid and lower lung zones which could represent pneumonia or less likely mild pulmonary edema. She was tx with abx and dexamethasone. She went to the the medical center 12/19 for URI and tx with doxycycline. Last visit, patient started Bevespi. She feels this has been helping with her dyspnea. She reports compliance with it. She is needing a new nebulizer as her broke. Denies fever, chest pains, or hemoptysis. Her pressure on BiPAP was decreased from 20/16 to 16/12 d/t intolerance with the pressure and leaks. She reports struggling with BiPAP despite 2 mask fittings by DME. Former smoker 0.5-1ppd for 50 years, quit 2019. CAT score 18, was 22 last visit. DATA: 07/17/2024: Overnight oximetry on 3 L nasal cannula. Recording duration 4 hours and 47 minutes. Baseline saturation 95%. High saturation 98%. Low saturation 89%. Time with saturation less than or equal to 88% was 0 minutes. Oxygen desaturation index 4.8. I will continue 3 L nasal cannula at night. 06/15/2024: Overnight oximetry on room air. Recording duration 6 hours and 17 minutes. Baseline saturation 85%. High saturation 94%. Low saturation 76%. Time with saturation less than or equal to 88% was 5 hours and 13 minutes. patient has nocturnal hypoxia and untreated NICOLA. Will attempt to correct hypoxia with 3 L nasal cannula. If she is in agreement will repeat overnight oximetry on 3 L. 04/12/2024: Serologies demonstrate rheumatoid factor 16.6, anti CCP peptide antibody negative and the Scl- 70 antibody is positive at 2.2 with normal being less than 1. CPK 321. Aldolase positive at 9.5 with normal being less than 8.1. Anca screen negative. MyoMarker 3+ demonstrates weak positive for anti -KU antibody, anti SRP antibody and anti mi-2 antibody. Will forward these results to [facility] rheumatology. 04/09/2024: Home O2 assessment: Rest room air saturation 93%. Exercise room air saturation 87%. Exercise nasal cannula 2 L saturation 91%. Patient requires 2 L with activity and no oxygen at rest. 04/11/24: I talked to the patient regarding her noncompliance with her BiPAP and the patient says that she continues to have difficulty wearing her BiPAP mask. She will wear for a few hours but then it leaks and wakes her up. She then tries to adjust it titer and she still has a leak and this gives her a headache. She has tried all different types of head covers and mass and has difficulty with all of them. The patient does not qualify for an oral mandibular device because she has complete dentures on the top. The patient does not qualify for an inspire system as her BMI is greater than 35. I will perform an overnight oximetry on room air in attempt to Qualify her for oxygen and provide her adequate oxygenation with nasal cannula oxygen. 04/09/2024: This is a pulmonary function test with pre and post-bronchodilator spirometry, plethysmography and diffusing capacity. The test was performed and results interpreted in accordance with the 2019 and 2005 ATS/ERS Task Force guidelines respectively using the Global Lung Function Initiative-2012 reference equations. Patient demonstrated good effort and cooperation. Reproducibility criteria were met. The quality of the pre bronchodilator spirometry maneuver was Grade A and post bronchodilator spirometry maneuver was Grade A. Findings: Spirometry: The contour the inspiratory and expiratory flow tracing are normal. The pre bronchodilator FVC is 1.80 L, 75% predicted. The pre bronchodilator FEV1 is 1.26 L, 68% predicted. The pre bronchodilator FEV1: FVC ratio 70%. The post bronchodilator FVC is 1.97 L, representing a 10% increase. The post bronchodilator FEV1 is 1.46 L, representing a 16% increase. The post bronchodilator FEV1: FVC ratio 74%. Plethysmography: The total lung capacity is 3.13 L, 68% predicted. Functional residual capacity is 1.28 L, 49% predicted. The residual volume is 1.25 L, 58% predicted. Diffusing capacity: The diffusing capacity unadjusted for hemoglobin and carboxyhemoglobin is 12.6, 67% predicted. The diffusing capacity adjusted for alveolar volume is 4.38, 101% predicted. In comparison to previous pulmonary function testing on 10/13/2023, the post bronchodilator FVC is unchanged from 1.81 L to 1.97 L. The post bronchodilator FEV1 is unchanged from 1.34 L to 1.46 L. the total lung capacity is unchanged from 3.41 L to 3.13 L. The functional residual capacity is decreased from 1.79 L to 1.28 L. The residual volume is decreased from 1.63 L to 1.25 L. The diffusing capacity unadjusted for hemoglobin and carboxyhemoglobin is unchanged from 14.6-12.6. The diffusing capacity adjusted for alveolar volume is unchanged from 4.75 L to 4.38. Impression: There is a moderate restrictive ventilatory abnormality. The spirometry is normal without evidence of an obstructive abnormality. There is significant improvement after inhaling a single dose of albuterol. The diffusing capacity is normal. In comparison to previous pulmonary function testing on 10/13/2023 there has been a greater than anticipated time dependent decrease in the functional residual capacity, residual volume with no significant change in the FVC, FEV1, total lung capacity or diffusing capacity. Download from 03/02/2024 through 03/31/2024 from [email or web address].? Patient is on BiPAP 22/10 in the spontaneous mode.? Total usage days is 37%. ?Usage days greater than or equal to 4 hours is 7%. ?Average usage on days used is 2 hours and 37 minutes.? AHI 1.2.? Apnea index 0.6, hypopnea index 0.6, central apnea index 0.2.? Median leak 29.0, 95th percentile leak 57.6, maximal leak 83.8.? Median tidal volume 438.? Median respiratory rate 16.? Median minute ventilation 7.2.? I interpret this download as noncompliance, adequate pressures and high leak. I called the clinic I called the patient to discuss her poor compliance and left a voice message for her to return a call to the clinic. 02/29/2024: Alpha 1 anti trypsin genotype MM, normal 03/05/24: CT Scan of the Chest without Contrast: Clinical Indication: Pneumonia, COPD COMPARISON: 12/19/2023 Findings: There is no evidence of any significant mediastinal, hilar or axillary lymphadenopathy. There are extensive atherosclerotic calcifications of the aorta and coronary arteries. There is no evidence of pleural or pericardial effusion. There is mild subpleural reticulation and minimal interstitial thickening bilaterally in the upper lobes. Images through the upper abdomen reveal no abnormalities. Impression: Minimal chronic interstitial changes, predominantly in the upper lobes. Chest CT 12/19/23 - Mild patchy groundglass opacities bilaterally. Consider Covid 19 pneumonia or other atypical infectious/inflammatory process. PFT 10/13/23 - This study?shows a small airways pattern with good response to bronchodilator, mild restriction, normal diffusion.? The repeatability was not optimal although the patient had optimal effort. Split night PSG 09/05/23 - mild, almost moderate NICOLA with an AHI 14.5 during the baseline without REM, minimum saturation 82%, titrated to BiPAP 20/16 using a medium ResMed AirTouch F20 fullface mask with heated humidity.? ? At the optimal BiPAP pressure of 20/16, the residual apnea-hypopnea index was 3.1 and the mean saturation was 90.5%.??The patient had significant limb movements during the night, during the baseline periodic limb movement index was 133.5, during treatment 36.5. Chest CTA 09/20/22 - Bilateral pneumonia involving particularly the posterior segment of the right upper lobe and bilateral lower lobes, with mild probable reactive hilar and mediastinal lymph node prominence LDCT 12/17/19 - mild emphysema and bronchiectasis Review of Systems Review of Systems: All systems reviewed & are unremarkable except as noted in HPI and below [facility] Past Medical History Medical History (Updated 12/06/24 @ 23:12 by Gemma Jennings MD) Primary insomnia Anemia Hx of thyroid cancer s/p total thyroidectomy Cardiac pacemaker in situ Chronic kidney disease Carpal tunnel syndrome Kidney stones Anxiety Depression Hypothyroidism Diabetes Arthritis Renal disease Hiatal hernia GERD (gastroesophageal reflux disease) Pneumonia HTN (hypertension) HLD (hyperlipidemia) CHF (congestive heart failure) Bronchitis Asthma NICOLA (obstructive sleep apnea) Chronic obstructive pulmonary disease RLS (restless legs syndrome) Surgical History Surgical History (Updated 12/04/24 @ 19:17 by Jillian Tsai APRN) History of cataract extraction History of total thyroidectomy Hx of elbow surgery bilateral ulnar release History of carpal tunnel release Hx of spinal surgery Hx of hysterectomy Hx of cholecystectomy Family History Family History Father Family history of heart disease in male family member before age 55 Family history of malignant neoplasm of brain Hypertension Pulmonary disease Mother Family history of heart disease in male family member before age 55 Family history of diabetes mellitus in first degree relative Social History Social History Social History: Surrogate medical decision maker: Neena Hazel, granddaughter. Code status: Full code. Smoking packs per day: 1 Smoking cigarettes per day: 20.0 Years smoked: 50 Smoking pack-years: 50.00 Smoking status: Former smoker Tobacco type: cigarettes Alcohol intake: never Substance use: never Substance use type: does not use Do You Feel Safe in your Home?: Yes Lack of Transportation: No Lack of Food: Never True Current Housing: I Have Housing Concerned About Future Housing: No Difficulty Paying Gas/Electric Bills: No Difficulty Paying for Meds: No Currently Unemployed: No Education: High School Diploma/GED Difficulty w/ Childcare or Family Care: No Living arrangements: alone Additional living arrangements comments: The patient lives in her own home in [place]. Occupation/Education: retired Additional occupation/education comments: Retired [employer]. Gender identity (if verbalized by the patient): Female 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: No Meds Home Medications and Allergies Home Medications ?Medication ?Instructions ?Recorded ?Confirmed ?Type amlodipine 5 mg tablet 5 mg PO DAILY 09/21/22 12/04/24 History oxybutynin chloride 10 mg 10 mg PO HS 09/21/22 12/04/24 History tablet,extended release 24 hr albuterol sulfate 2.5 mg/3 mL 2.5 mg (3 mL) inhalation Q4-6H PRN 08/17/23 12/04/24 Rx (0.083 %) solution for nebulization shortness of breath or wheezing #180 mL magnesium oxide 400 mg PO BID 09/15/23 12/04/24 History pregabalin 200 mg capsule 200 mg PO BID 09/15/23 12/04/24 History rosuvastatin 10 mg tablet 10 mg PO HS 09/15/23 12/04/24 History vortioxetine 20 mg tablet 20 mg PO DAILY 09/15/23 12/04/24 History (Trintellix) furosemide 20 mg tablet 20 mg PO DAILY 12/07/23 12/04/24 History dapagliflozin propanediol 10 mg 10 mg PO DAILY #90 tabs 01/23/24 12/04/24 Rx tablet Breztri Aerosphere 160 See Rx Instructions .Route 05/30/24 12/04/24 Rx mcg-9mcg-4.8mcg/actuation HFA .COMPLEX #10.7 grams aerosol inhaler (ubuktxyysc-wviwvlkc-ryzqrinaof) albuterol sulfate 90 mcg/actuation 2 puff inhalation QID PRN 07/11/24 12/04/24 Rx aerosol inhaler shortness of breath or wheezing #8.5 grams isosorbide mononitrate 30 mg 30 mg PO DAILY 12/04/24 12/04/24 History tablet,extended release 24 hr levothyroxine 75 mcg tablet 75 mcg PO DAILY@0630 12/04/24 12/04/24 History (Unithroid) minoxidil 2.5 mg tablet 2.5 mg PO DAILY 12/04/24 12/04/24 History Allergies Allergy/AdvReac Type Severity Reaction Status Date / Time NILTON Inhibitors Allergy Unknown Angioedema Verified 12/04/24 11:49 lisinopril Allergy Dyspnea / Verified 12/04/24 11:49 SOB Vital Signs Vital Signs - 24 hr 12/05/24 22:00 12/06/24 06:00 12/06/24 06:58 Temperature 36.1 C L Pulse Rate 70 64 71 Respiratory Rate 16 18 18 Blood Pressure 119/50 L Pulse Oximetry 94 93 Oxygen Delivery Nasal Cannula Oxygen Flow Rate 4 12/06/24 06:58 12/06/24 07:08 12/06/24 08:00 Temperature Pulse Rate 71 74 Respiratory Rate 18 20 Blood Pressure Pulse Oximetry 91 Oxygen Delivery Nasal Cannula Oxygen Flow Rate 4 12/06/24 12:55 12/06/24 13:05 12/06/24 14:00 Temperature 36.6 C Pulse Rate 74 77 74 Respiratory Rate 20 20 20 Blood Pressure 92/76 L Pulse Oximetry 92 Oxygen Delivery Oxygen Flow Rate 12/06/24 20:00 12/06/24 20:25 12/06/24 20:26 Temperature Pulse Rate 72 Respiratory Rate 20 Blood Pressure Pulse Oximetry 95 95 Oxygen Delivery Nasal Cannula Nasal Cannula Oxygen Flow Rate 4 4 12/06/24 20:35 Temperature Pulse Rate 75 Respiratory Rate 20 Blood Pressure Pulse Oximetry Oxygen Delivery Oxygen Flow Rate Exam Narrative: GEN: Alert, oriented, not in distress. Nasal cannula O2 4 L, saturation 91-95% HEENT: pupils are equal, EOMI, symmetrical face; oral membranes moist NECK: Trachea is midline CHEST: Equal air entry, symmetric excursion, harsh expiratory rhonchi throughout both lungs CV: Regular S1S2 no m/g/r ABD : (+) bowel sounds Extremities : no clubbing, cyanosis, or edema; calves have no wrinkles, has no evidence of chronic edema, stasis, no rash; she has brisk capillary refill. PSYCH: normal thought and speech, gait is not tested Results Laboratory Findings 12/06/24 05:56 12/06/24 05:58 ABG, PT/INR, D-dimer: ABG ABG pH 7.423 (7.350-7.450) 12/04/24 13:04 ABG pCO2 44.4 mmHg (35.0-45.0) 12/04/24 13:04 ABG pO2 83.1 mmHg (80.0-100.0) 12/04/24 13:04 ABG O2 Saturation 96.4 % (95.0-100.0) 12/04/24 13:04 PT/INR, D-dimer PT 13.4 Seconds (11.1-14.7) 12/04/24 14:21 INR 1.0 12/04/24 14:21 D-Dimer 1.17 ug/mL (<0.48) H 12/04/24 14:21 Abnormal lab findings: Abnormal Labs 12/04/24 12/04/24 12/04/24 12:29 13:04 14:21 WBC MCHC 30.6 L RDW 14.7 H MPV 11.4 H Immature Gran % (Auto) 0.6 H Neut % (Auto) Lymph % (Auto) [place] % (Auto) 14.0 H Baso % (Auto) Lymph # (Auto) [place] # (Auto) 0.9 H Abs Immat Gran (auto) 0.04 H Absolute Neuts (auto) D-Dimer 1.17 H ABG HCO3 28.3 H Potassium BUN 24 H Creatinine 1.47 H Estimated GFR 34 L Glucose POC Capillary Glucose Lactic Acid 3.0 H Calcium 8.3 L Magnesium 2.5 H NT-Pro-B Natriuret Pep 158 H Urine Protein Urine Glucose (UA) 12/04/24 12/05/24 12/05/24 15:08 05:45 08:01 WBC MCHC 30.1 L RDW MPV 10.6 H Immature Gran % (Auto) 1.2 H Neut % (Auto) 87.1 H Lymph % (Auto) 10.4 L [place] % (Auto) 1.2 L Baso % (Auto) 0.1 L Lymph # (Auto) 0.76 L [place] # (Auto) Abs Immat Gran (auto) 0.09 H Absolute Neuts (auto) D-Dimer ABG HCO3 Potassium BUN 25 H Creatinine 1.43 H Estimated GFR 36 L Glucose 159 H POC Capillary Glucose 150 H Lactic Acid Calcium Magnesium NT-Pro-B Natriuret Pep Urine Protein 1+ H Urine Glucose (UA) Trace H 12/05/24 12/05/24 12/05/24 11:30 16:25 21:46 WBC MCHC RDW MPV Immature Gran % (Auto) Neut % (Auto) Lymph % (Auto) [place] % (Auto) Baso % (Auto) Lymph # (Auto) [place] # (Auto) Abs Immat Gran (auto) Absolute Neuts (auto) D-Dimer ABG HCO3 Potassium BUN Creatinine Estimated GFR Glucose POC Capillary Glucose 225 H 207 H 188 H Lactic Acid Calcium Magnesium NT-Pro-B Natriuret Pep Urine Protein Urine Glucose (UA) 12/06/24 12/06/24 12/06/24 05:56 05:58 08:34 WBC 13.4 H MCHC 29.9 L RDW 14.7 H MPV 11.4 H Immature Gran % (Auto) 0.7 H Neut % (Auto) 91.1 H Lymph % (Auto) 5.0 L [place] % (Auto) Baso % (Auto) 0.1 L Lymph # (Auto) 0.67 L [place] # (Auto) Abs Immat Gran (auto) 0.10 H Absolute Neuts (auto) 12.2 H D-Dimer ABG HCO3 Potassium 5.1 H BUN 39 H D Creatinine 1.73 H Estimated GFR 29 L Glucose 168 H POC Capillary Glucose 201 H Lactic Acid Calcium Magnesium NT-Pro-B Natriuret Pep Urine Protein Urine Glucose (UA) 12/06/24 12/06/24 11:53 16:39 WBC MCHC RDW MPV Immature Gran % (Auto) Neut % (Auto) Lymph % (Auto) [place] % (Auto) Baso % (Auto) Lymph # (Auto) [place] # (Auto) Abs Immat Gran (auto) Absolute Neuts (auto) D-Dimer ABG HCO3 Potassium BUN Creatinine Estimated GFR Glucose POC Capillary Glucose 299 H 117 H Lactic Acid Calcium Magnesium NT-Pro-B Natriuret Pep Urine Protein Urine Glucose (UA)
[2024-12-06 23:33] LABS: Glucose Point of Care 225 mg/dl (65-105)
[2024-12-07] VITALS (10 sets, daily range): BP systolic 121–125; BP diastolic 45–56; PULSE 60–79; RESP 18–20; TEMP 36.1–37.1; O2SAT 94–97
[2024-12-07] MEDS: LEVOTHYROXINE SODIUM 75 MCG TABLET PO (05:37)
[2024-12-07] MEDS: methylPREDNISolone SOD SUCC 40 MG VIAL IV PUSH ×3 (05:38→17:09)
--- NOTE | 2024-12-07 05:49 | PCRCNOTE ---
Out of scheduled timeframe for 0200 breathing treatment. See next scheduled treatment at 0800.
[2024-12-07 07:37] LABS: Basophils Percent Auto 0.1 % (0.2-1.2); Eosinophils Percent Auto 0.1 % (0-4.4); Hematocrit 39.4 % (37.0-47.0); Hemoglobin 11.8 g/dL (12.0-15.0); Immature Granulocyte Percent A 1.8 % (0-0.5); Lymphocytes Percent Auto 3.5 % (18.3-44.2); Mean Corpuscular HGB Conc 29.9 g/dl (32-36); Mean Corpuscular Hemoglobin 27.6 pg (26-34); Mean Corpuscular Volume 92.3 fl (80-100); Mean Platelet Volume 11.4 fl (7.4-10.4); Monocytes Absolute Auto 0.3 K/mm3 (0.1-0.6); Monocytes Percent Auto 2.4 % (2.6-8.5); Neutrophils Absolute Auto 10.5 K/mm3 (1.3-6.7); Neutrophils Percent Auto 92.1 % (45.5-73.1); Platelet Count Result 216 k/mm3 (150-375); Red Blood Count 4.27 M/mm3 (4.2-5.4); Red Cell Distribution Width 14.6 % (11.5-14.5); White Blood Count 11.4 K/mm3 (4.5-10.0)
[2024-12-07 07:52] LABS: Alanine Aminotransferase 13 U/L (6-35); Albumin Level 3.4 g/dL (3.5-5.1); Alkaline Phosphatase 53 U/L (38-126); Anion Gap 7 mmol/L (4-12); Aspartate Amino Transferase 20 U/L (14-36); Bilirubin,Total 0.5 mg/dL (0.2-1.3); Blood Urea Nitrogen 51 mg/dL (7-17); Calcium 8.7 mg/dL (8.4-10.2); Carbon Dioxide 30 mmol/L (22-30); Chloride 105 mmol/L (98-107); Estimated CRCL calculation 26 ml/min; Estimated Glomerular Filt Rate 26; Glucose 165 mg/dL (65-110); Potassium 5.3 mmol/L (3.4-5.0); Sodium 142 mmol/L (137-145)
[2024-12-07 08:05] LABS: Glucose Point of Care 193 mg/dl (65-105)
[2024-12-07] MEDS: FLUTICASONE/UMECLIDIN/VILANTER 100-62.5-25 MCG ELLIPTA 1 PUFF INHALATION (08:35)
[2024-12-07] MEDS: IPRATROPIUM 0.5 MG/ALBUTEROL SULFATE 2.5 MG AMPUL.NEB 3 ML INHALATION ×3 (08:36→21:17)
[2024-12-07 09:20] LABS: Anisocytosis 1+
[2024-12-07 09:21] LABS: Platelet Estimate Adequate (Adequate); Schistocytes None Seen
[2024-12-07] MEDS: MAGNESIUM OXIDE 400 MG TABLET PO ×2 (09:38→17:08)
[2024-12-07] MEDS: DOXYCYCLINE HYCLATE 100 MG TABLET PO ×2 (09:38→20:36)
[2024-12-07] MEDS: guaiFENesin 12 HR 600 MG TABCR PO ×2 (09:38→20:36)
[2024-12-07] MEDS: PREGABALIN (*CRX) 50 MG CAPSULE 200 MG PO ×2 (09:38→17:08)
[2024-12-07] MEDS: CEFEPIME 2 GM/NS 50 ML 2 GM/50 ML BAG IVPB ×2 (09:38→20:37)
[2024-12-07] MEDS: ISOSORBIDE MONONITRATE 30 MG TAB.ER.24H PO (09:38)
[2024-12-07] MEDS: EMPAGLIFLOZIN 25 MG TABLET BY MOUTH (09:38)
[2024-12-07] MEDS: amLODIPine BESYLATE 5 MG TABLET PO (09:38)
[2024-12-07] MEDS: minoxidiL 2.5 MG TABLET PO (09:38)
[2024-12-07] MEDS: LIDOCAINE 2% VISC SOLN 30 ML, ALUMINUM/MAGNESIUM/SIMETH SUSP 30 ML, diphenhydrAMINE HCl... PO ×3 (09:39→17:08)
[2024-12-07] MEDS: ACETAMINOPHEN 325 MG TABLET 650 MG PO ×2 (09:46→20:41)
--- NOTE | 2024-12-07 11:08 | PM.IMPN ---
Progress Note: A&P Assessment and Plan (1) Acute and chronic respiratory failure: Qualifiers: Respiratory failure complication: hypoxia Qualified Code(s): J96.21 - Acute and chronic respiratory failure with hypoxia Code(s): J96.20 - Acute and chronic respiratory failure, unspecified whether with hypoxia or hypercapnia Status: Acute Assessment and Plan: - CXR: Clear lungs - CTA chest: No pulmonary embolus. No dissection or aneurysmal dilatation. Right basilar infiltrate. Mild pulmonary congestion. - viral PCR negative, flu A positive on 11/24/2024 - pulmonology consulted, awaiting formal recs Suspect acute on chronic respiratory failure is multifactorial including pneumonia, COPD exacerbation, and sequela from recent influenza infection on 11/24. See respective sections. - Wean oxygen to keep Sa02 >91%. -Will need home 02 study when ready for discharge. (2) Community acquired pneumonia: Qualifiers: Laterality: right Lung location: lower lobe of lung Qualified Code(s): J18.9 - Pneumonia, unspecified organism Code(s): J18.9 - Pneumonia, unspecified organism Status: Acute Assessment and Plan: - did not meet SIRS criteria. however blood cultures obtained on 12/04, follow. Lactic 1.5. - chest CTA showing right basilar infiltrate - risk factors and complicating factors: recent antibiotic courses, recent influenza A infection, COPD - started on HAP tx given recent failed ABX course: Cefepime, doxycycline p.o., vancomycin - MRSA PCR and sputum culture - legionella antigen, pneumococcal antigen, Mycoplasma IgM - Viral PCR negative - CPT, vest b.i.d. as tolerated - supportive care: Tessalon Perles p.r.n. Mucinex veronica DuoNebs veronica Methylprednisolone IV veronica Tylenol p.r.n. - increasing supplemental O2 requirement: 4 liters nasal cannula Sa02 95-96% (3) COPD exacerbation: Code(s): J44.1 - Chronic obstructive pulmonary disease with (acute) exacerbation Status: Acute Assessment and Plan: - DuoNebs veronica - methylprednisone 40 mg IV veronica q 6 - continue home inhalers: Bretzi 2 puffs twice daily - Pulmonology consulted. - Echocardiogram showed: Summary 1. Technically suboptimal study due to poor sonographic images. 2. Definity contrast administered improved wall motion interpretation. 3. Left ventricular chamber dimension is normal. 4. Left ventricular systolic function is hyperdynamic, estimated at >70%. 5. There is mild concentric increased left ventricular wall thickness. 6. The left ventricular diastolic function is grade I diastolic dysfunction. 7. E/e' 14 is mildly elevated. 8. The aortic valve is not well visualized. Cannot determine number of aortic valve leaflets. 9. There is moderate aortic valve sclerosis. 10. There is moderate aortic valve stenosis with a peak velocity of 317.77 cm/s, mean gradient of 24 mmHg, and aortic valve area of 1.49 cm2. 11. The mitral valve has mildly calcified annulus. 12. Mild pulmonary hypertension, estimated pulmonary arterial systolic pressure is 41 mmHg. 13. Dilated inferior vena cava with >50% collapse upon inspiration consistent with elevated right atrial pressure, 10 mmHg. - CPT - Cornet valve. (4) Chronic kidney disease: Qualifiers: Chronic kidney disease stage: unspecified stage Qualified Code(s): N18.9 - Chronic kidney disease, unspecified Code(s): N18.9 - Chronic kidney disease, unspecified Status: Chronic Assessment and Plan: - creatinine 1.85, BUN 51, and GFR 26, previously 1.45 and GFR 35 on 11/24/2024. - Hold Lasix. 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 Technically suboptimal study due to poor sonographic images. 2. Definity contrast administered improved wall motion interpretation. 3. Left ventricular chamber dimension is normal. 4. Left ventricular systolic function is hyperdynamic, estimated at >70%. 5. There is mild concentric increased left ventricular wall thickness. 6. The left ventricular diastolic function is grade I diastolic dysfunction. 7. E/e' 14 is mildly elevated. 8. The aortic valve is not well visualized. Cannot determine number of aortic valve leaflets. 9. There is moderate aortic valve sclerosis. 10. There is moderate aortic valve stenosis with a peak velocity of 317.77 cm/s, mean gradient of 24 mmHg, and aortic valve area of 1.49 cm2. 11. The mitral valve has mildly calcified annulus. 12. Mild pulmonary hypertension, estimated pulmonary arterial systolic pressure is 41 mmHg. 13. Dilated inferior vena cava with >50% collapse upon inspiration consistent with elevated right atrial pressure, 10 mmHg. Amlodipine 5 mg PO daily. Furosemide 20 mg PO daily on hold due to elevated creatinine of 1.85. (7) HTN (hypertension): Qualifiers: Hypertension type: unspecified Qualified Code(s): I10 - Essential (primary) hypertension Code(s): I10 - Essential (primary) hypertension Status: Chronic Assessment and Plan: - chronic, currently 123/56. - continue home medications: Amlodipine 5 mg daily, Imdur 30 mg daily - monitor (8) NICOLA on CPAP: Code(s): G47.33 - Obstructive sleep apnea (adult) (pediatric); Z99.89 - Dependence on other enabling machines and devices Status: Acute Assessment and Plan: - does not tolerate CPAP (9) Anxiety: Code(s): F41.9 - Anxiety disorder, unspecified Status: Acute Assessment and Plan: Sister on 12/05/24. Alprazolam 0.25 mg PO TID PRN. (10) Tongue pain: Code(s): K14.6 - Glossodynia Status: Acute Assessment and Plan: magic mouth wash improving. Plan MRSA negative, Vancomycin d/c'd. Diet: Heart healthy GI Prophylaxis: Not currently indicated DVT Prophylaxis: SCDs Lines: Peripheral Code Status: Full code Subjective Date/time seen: 12/07/24 11:08 Interval history: Patient reports that she feels that her breathing is improving and that she feels the CPT machine is helpful. Patient denies chest pain, palpitations, shortness of breath at rest, headache, dizziness, nausea, or vomiting. Patient reports pain in right shoulder is a 7 , constant, and sore. Pain is tongue is improving with magic mouth wash, current pain level is a 7 , frequent, and sore. Review of Systems Review of Systems: All systems reviewed & are unremarkable except as noted in HPI and below Exam Const: General: no acute distress and uncomfortable Eyes: Sclera: sclerae normal Resp: Effort & Inspection: normal respiratory effort Auscultation: diminished lung sounds Cardio: Rate: regular rate Rhythm: regular rhythm GI: GI Palp: Yes Soft to palpation Auscultation: normal bowel sounds Skin: General skin exam: no rashes or lesions noted Neuro: Speech: normal speech Extrem: General: no pedal edema Psych: Mental Status: mental status grossly normal Affect: normal affect Objective Data Vital Signs Vital Signs: Vital Signs - 24 hr 12/06/24 12:55 12/06/24 13:05 12/06/24 14:00 Temperature 97.9 F Pulse Rate 74 77 74 Respiratory Rate 20 20 20 Blood Pressure 92/76 L Pulse Oximetry 92 Oxygen Delivery Oxygen Flow Rate 12/06/24 20:00 12/06/24 20:25 12/06/24 20:26 Temperature Pulse Rate 72 Respiratory Rate 20 Blood Pressure Pulse Oximetry 95 95 Oxygen Delivery Nasal Cannula Nasal Cannula Oxygen Flow Rate 4 4 12/06/24 20:35 12/06/24 21:54 12/07/24 06:00 Temperature 97.6 F 97.0 F L Pulse Rate 75 79 60 Respiratory Rate 20 20 20 Blood Pressure 123/52 L 123/56 L Pulse Oximetry 95 96 Oxygen Delivery Oxygen Flow Rate 12/07/24 08:36 12/07/24 08:36 Temperature Pulse Rate 65 Respiratory Rate 20 Blood Pressure Pulse Oximetry 95 Oxygen Delivery Nasal Cannula Oxygen Flow Rate 4 Intake/Output Intake/Output: Intake & Output 12/04/24 12/05/24 12/06/24 12/07/24 23:59 23:59 23:59 23:59 Intake Total 150 1320 2720 894 Output Total 400 1150 250 Balance 133 088 8206 644 Meds/Results Medications: Active Medications Generic Name Dose Route Start Last Admin Trade Name Freq PRN Reason Stop Dose Admin Acetaminophen 650 mg 12/04/24 19:25 12/07/24 09:46 Acetaminophen 325 Mg Tablet PO 650 mg Q4H PRN Administration Mild Pain (1-3) or Fever Albuterol/Ipratropium 3 ml 12/04/24 20:00 12/07/24 08:36 Ipratropium 0.5 Mg/Albuterol Sulfate 2.5 Mg Ampul.Neb 3 Ml INHALATION 3 ml Q6HRT VERONCIA Administration Alprazolam 0.25 mg 12/05/24 14:52 12/06/24 21:11 Alprazolam (*Crx) 0.25 Mg Tablet PO 0.25 mg TID PRN Administration Anxiety Amlodipine Besylate 5 mg 12/05/24 09:00 12/07/24 09:38 Amlodipine Besylate 5 Mg Tablet PO 5 mg DAILY VERONICA Administration Benzonatate 100 mg 12/04/24 19:25 12/06/24 21:11 Benzonatate 100 Mg Capsule PO 100 mg TID PRN Administration Cough Lidocaine HCl 30 ml/ Al Hydrox 0 ml 12/06/24 13:00 12/07/24 09:39 /Mg Hydrox/Simethicone 30 ml/ PO 5 ml Diphenhydramine HCl 75 mg Q4HWA VERONICA Administration Dextrose 12.5 gm 12/04/24 22:34 Dextrose 50% 25 Gm/50 Ml Syringe IV PUSH PRN PRN Hypoglycemia Protocol Doxycycline Hyclate 100 mg 12/05/24 09:00 12/07/24 09:38 Doxycycline Hyclate 100 Mg Tablet PO 100 mg Q12HR VERONICA Administration Empagliflozin 25 mg 12/05/24 09:00 12/07/24 09:38 Empagliflozin 25 Mg Tablet BY MOUTH 25 mg DAILY VERONICA Administration Fluticasone/Umeclidinium/Vilanterol 1 puff 12/05/24 08:00 12/07/24 08:35 Fluticasone/Umeclidin/Vilanter 100-62.5-25 Mcg Ellipta INHALATION 1 puff DAILYRT VERONICA Administration Glucagon 1 mg 12/04/24 22:34 Glucagon For Inj 1 Mg Vial IM PRN PRN Hypoglycemia Protocol Glucose 15 gm 12/04/24 22:34 Glucose Oral Gel 15 Gm Of Glucse In 37.5 Gm Tube PO PRN PRN Hypoglycemia Protocol Guaifenesin 600 mg 12/04/24 21:00 12/07/24 09:38 Guaifenesin 12 Hr 600 Mg Tabcr PO 600 mg Q12HR VERONICA Administration Cefepime HCl 2 gm in 50 mls @ 100 mls/hr 12/05/24 09:00 12/07/24 09:38 Maxipime 2 Gm/Ns 50 Ml IVPB 100 mls/hr Q12HR VERONICA Administration Dextrose 1,000 mls @ 100 mls/hr 12/04/24 22:34 Dextrose 5% 1,000 Ml IVPB PRN PRN Hypoglycemia Protocol Insulin Aspart 4 - 8 units 12/05/24 08:00 12/07/24 09:36 Insulin Aspart (*Bkc) 100 Units/Ml SUB-Q Not Given TIDWM [facility] Protocol Isosorbide Mononitrate 30 mg 12/05/24 09:00 12/07/24 09:38 Isosorbide Mononitrate 30 Mg Tab.Er.24h PO 30 mg DAILY VERONICA Administration Levothyroxine Sodium 75 mcg 12/05/24 06:30 12/07/24 05:37 Levothyroxine Sodium 75 Mcg Tablet PO 75 mcg DAILY@0630 VERONICA Administration Magnesium Oxide 400 mg 12/05/24 09:00 12/07/24 09:38 Magnesium Oxide 400 Mg Tablet PO 400 mg BID VERONICA Administration Melatonin 5 mg 12/04/24 22:00 12/06/24 21:11 Melatonin 5 Mg Tablet PO 5 mg HS [facility] Administration Methylprednisolone Sodium Succinate 40 mg 12/07/24 00:00 12/07/24 05:38 Methylprednisolone Sod Succ 40 Mg Vial IV PUSH 40 mg Q6HR VERONICA Administration Minoxidil 2.5 mg 12/05/24 09:00 12/07/24 09:38 Minoxidil 2.5 Mg Tablet PO 2.5 mg DAILY VERONICA Administration Miscellaneous Information 0 each 12/04/24 00:01 Vortioxetine Nonform Can Pt Bring From Home? XX 01/03/25 00:00 CLARIFY [facility] Non-Formulary Medication 20 mg 12/05/24 09:00 Vortioxetine [Trintellix] PO 01/04/25 08:59 DAILY [facility] Ondansetron HCl 4 mg 12/05/24 00:34 12/06/24 09:06 Ondansetron Inj 4 Mg/2 Ml Vial IV PUSH 4 mg Q6H PRN Administration Nausea And Vomiting Oxybutynin Chloride 10 mg 12/05/24 21:00 12/06/24 21:11 Oxybutynin Chloride Xl 5 Mg Tab.Er.24 PO 10 mg HS VERONICA Administration Pregabalin 200 mg 12/05/24 09:00 12/07/24 09:38 Pregabalin (*Crx) 50 Mg Capsule PO 200 mg BID VERONICA Administration Rosuvastatin Calcium 10 mg 12/05/24 21:00 12/06/24 21:11 Rosuvastatin 10 Mg Tablet PO 10 mg HS VERONICA Administration Radiology Results: ITS Impressions Chest X-Ray 12/04/24 12:57 Impression: Clear lungs. Chest CTA 12/04/24 17:42 IMPRESSION: No pulmonary embolus. No dissection or aneurysmal dilatation. Right basilar infiltrate. Mild pulmonary congestion. Venous Doppler Study 12/05/24 09:30 IMPRESSION: 1. No deep venous thrombosis. Labs Labs: Laboratory Results - last 24 hr 12/06/24 12/06/24 12/06/24 11:53 16:39 23:30 WBC RBC Hgb Hct MCV MCH MCHC RDW Plt Count MPV Immature Gran % (Auto) Neut % (Auto) Lymph % (Auto) [place] % (Auto) Eos % (Auto) Baso % (Auto) Lymph # (Auto) [place] # (Auto) Eos # (Auto) Baso # (Auto) Abs Immat Gran (auto) Absolute Neuts (auto) Absolute Nucleated RBC Nucleated RBC % Platelet Estimate Anisocytosis Schistocytes Sodium Potassium Chloride Carbon Dioxide Anion Gap BUN Creatinine Estim Creat Clear Calc Estimated GFR Glucose POC Capillary Glucose 299 H 117 H 225 H Calcium Total Bilirubin AST ALT Alkaline Phosphatase Total Protein Albumin 12/07/24 12/07/24 07:13 07:59 WBC 11.4 H RBC 4.27 Hgb 11.8 L Hct 39.4 MCV 92.3 MCH 27.6 MCHC 29.9 L RDW 14.6 H Plt Count 216 MPV 11.4 H Immature Gran % (Auto) 1.8 H Neut % (Auto) 92.1 H Lymph % (Auto) 3.5 L [place] % (Auto) 2.4 L Eos % (Auto) 0.1 Baso % (Auto) 0.1 L Lymph # (Auto) 0.40 L [place] # (Auto) 0.3 Eos # (Auto) 0.0 Baso # (Auto) 0.0 Abs Immat Gran (auto) 0.20 H Absolute Neuts (auto) 10.5 H Absolute Nucleated RBC 0.000 Nucleated RBC % 0.0 Platelet Estimate Adequate Anisocytosis 1+ Schistocytes None seen Sodium 142 Potassium 5.3 H Chloride 105 Carbon Dioxide 30 Anion Gap 7 BUN 51 H D Creatinine 1.85 H Estim Creat Clear Calc 26 Estimated GFR 26 L Glucose 165 H POC Capillary Glucose 193 H Calcium 8.7 Total Bilirubin 0.5 AST 20 ALT 13 Alkaline Phosphatase 53 Total Protein 7.0 Albumin 3.4 L Quality VTE Prophylaxis VTE prophylaxis: mechanical ordered
[2024-12-07 11:22] LABS: Glucose Point of Care 235 mg/dl (65-105)
[2024-12-07] MEDS: INSULIN ASPART (*BKC) 100 UNITS/ML SUB-Q ×2 (12:31→17:09)
--- NOTE | 2024-12-07 13:11 | PM.PNPUL ---
Progress Note: A&P Assessment and Plan (1) Chronic obstructive pulmonary disease: Qualifiers: COPD type: unspecified COPD Qualified Code(s): J44.9 - Chronic obstructive pulmonary disease, unspecified Code(s): J44.9 - Chronic obstructive pulmonary disease, unspecified Status: Acute Assessment and Plan: She has documented COPD, uses Breztri as her controller medication, has a nebulizer at home, did not use this prior to admission. This would not have kept her from being admitted however she now will think of it in her tookbox for managing shortness of breath and increased COPD symptoms. She had post influenza pneumonia which is likely bacterial would have had to come in anyway due to hypoxemia, need for intravenous antibiotics, and management in an elderly high risk patient already using O2 at night 3 L/min. (2) NICOLA (obstructive sleep apnea): Code(s): G47.33 - Obstructive sleep apnea (adult) (pediatric) Status: Acute Assessment and Plan: She tells me that she cannot tolerate PAP, this is a long-standing problem. (3) Acute and chronic respiratory failure: Qualifiers: Respiratory failure complication: hypoxia Qualified Code(s): J96.21 - Acute and chronic respiratory failure with hypoxia Code(s): J96.20 - Acute and chronic respiratory failure, unspecified whether with hypoxia or hypercapnia Status: Acute Assessment and Plan: Normally uses oxygen 3 L only at night, has had oxygen deficit this admission requiring 4 L during the day to maintain adequate oxygenation. This is expected to be weaned prior to discharge. She will need a home oxygen study prior to discharge. She was playing have PFT soon but will need to fully recover before this testing. (4) PNA (pneumonia): Qualifiers: Laterality: unspecified laterality Lung location: unspecified part of lung Pneumonia type: due to unspecified organism Qualified Code(s): J18.9 - Pneumonia, unspecified organism Code(s): J18.9 - Pneumonia, unspecified organism Status: Acute Assessment and Plan: The patient has post influenza pneumonia, one of the most common complications of having influenza, and why it is important to be vaccinated against influenza. She has underlying COPD which is a risk factor and she had influenza a diagnosed November 24. Strep and staph are the most common etiologies seen in this setting. (5) Secondary pulmonary hypertension: Status: Acute Assessment and Plan: Echo 12/06/2024 shows mild pulmonary hypertension, RVSP is 41 mmHg, this is secondary to underlying COPD, hypoxemia, untreated obstructive sleep apnea. This can be followed on repeat echos. Plan plan: Ok for discharge today. Room air at rest. She has an oximeter, can use O2 if needed with exertion, keep sat 90-94% with O2. Use O2 @ 3 L with sleep. Continue Cornet valve at home to clear secretions. Prednisone taper, start 50 mg po today before leaving, wean by 10 mg every 2 days until off. She has regular ov with Dr Velásquez tomorrow. Follow up in pulmonary clinic in 3-4 weeks. She is a candidate for having home vibratory vest as she has benefitted from using while here, has bronchiectasis on chest CT. She called to cancel her PFTs. She needs to be stable before having these. The patient just had influenza and a post-influenza pneumonia confirmed with infiltrate seen on chest CT. She needs to strongly consider flu vaccination every season. <del>plan:</del> <del>Continue</del> <del>current</del> <del>antibiotics,</del> <del>Cefepime</del> <del>and</del> <del>doxycycline.</del> <del>MRSA</del> <del>swab</del> <del>was</del> <del>negative</del> <del>12/04/24.</del> <del>Urine</del> <del>antigens</del> <del>are</del> <del>pending</del> <del>for</del> <del>S</del> <del>pneumoniae</del> <del>and</del> <del>Legionella.</del> <del>Add</del> <del>Cornet</del> <del>PEP</del> <del>valve</del> <del>to</del> <del>help</del> <del>clear</del> <del>secretions.</del> <del>The</del> <del>vibratory</del> <del>vest</del> <del>is</del> <del>helping</del> <del>significantly,</del> <del>and</del> <del>she</del> <del>may</del> <del>qualify</del> <del>for</del> <del>one</del> <del>at</del> <del>home</del> <del>as</del> <del>her</del> <del>baseline</del> <del>CT</del> <del>shows</del> <del>bronchiectasis.</del> <del>Also,</del> <del>she</del> <del>is</del> <del>benefitting</del> <del>from</del> <del>pneumatic</del> <del>compression</del> <del>stockings,</del> <del>using</del> <del>them</del> <del>in</del> <del>the</del> <del>hospital</del> <del>as</del> <del>a</del> <del>form</del> <del>of</del> <del>DVT</del> <del>prophylaxis,</del> <del>having</del> <del>improvement</del> <del>in</del> <del>her</del> <del>peripheral</del> <del>edema.</del> <del>Her</del> <del>activity</del> <del>level</del> <del>is</del> <del>limited</del> <del>due</del> <del>to</del> <del>spinal</del> <del>stenosis,</del> <del>chronic</del> <del>back</del> <del>pain</del> <del>as</del> <del>well</del> <del>as</del> <del>COPD,</del> <del>deconditioning.</del> <del>She</del> <del>has</del> <del>had</del> <del>pulmonary</del> <del>rehab</del> <del>earlier</del> <del>in</del> <del>2023.</del> <del>Continue</del> <del>management</del> <del>of</del> <del>COPD,</del> <del>lower</del> <del>solumedrol</del> <del>dose</del> <del>IV,</del> <del>transition</del> <del>when</del> <del>she</del> <del>has</del> <del>less</del> <del>rhonchi</del> <del>and</del> <del>wheezing.</del> <del>Delay</del> <del>her</del> <del>scheuduled</del> <del>PFTs</del> <del>until</del> <del>full</del> <del>recovers</del> <del>from</del> <del>this</del> <del>event.</del> <del>She</del> <del>has</del> <del>documented</del> <del>COPD,</del> <del>uses</del> <del>Breztri</del> <del>as</del> <del>her</del> <del>controller</del> <del>medication,</del> <del>has</del> <del>a</del> <del>nebulizer</del> <del>at</del> <del>home,</del> <del>did</del> <del>not</del> <del>use</del> <del>this</del> <del>prior</del> <del>to</del> <del>admission.</del> <del>This</del> <del>did</del> <del>not</del> <del>make</del> <del>a</del> <del>difference,</del> <del>she</del> <del>had</del> <del>post</del> <del>influenza</del> <del>pneumonia</del> <del>which</del> <del>is</del> <del>likely</del> <del>bacterial</del> <del>would</del> <del>have</del> <del>had</del> <del>to</del> <del>come</del> <del>in</del> <del>anyway</del> <del>due</del> <del>to</del> <del>hypoxemia,</del> <del>need</del> <del>for</del> <del>intravenous</del> <del>antibiotics,</del> <del>and</del> <del>management</del> <del>in</del> <del>an</del> <del>elderly</del> <del>high</del> <del>risk</del> <del>patient</del> <del>already</del> <del>using</del> <del>O2</del> <del>at</del> <del>night</del> <del>3</del> <del>L/min.</del> <del> </del> <del>(2)</del> <del>NICOLA</del> <del>(obstructive</del> <del>sleep</del> <del>apnea):</del> <del>Code(s):</del> <del>G47.33</del> <del>-</del> <del>Obstructive</del> <del>sleep</del> <del>apnea</del> <del>(adult)</del> <del>(pediatric)</del> <del>Status:</del> <del>Acute</del> <del>Assessment</del> <del>and</del> <del>Plan:</del> <del>She</del> <del>tells</del> <del>me</del> <del>that</del> <del>she</del> <del>cannot</del> <del>tolerate</del> <del>PAP,</del> <del>this</del> <del>is</del> <del>a</del> <del>long-standing</del> <del>problem.</del> <del> </del> <del>(3)</del> <del>Acute</del> <del>and</del> <del>chronic</del> <del>respiratory</del> <del>failure:</del> <del>Qualifiers:</del> <del>Respiratory</del> <del>failure</del> <del>complication:</del> <del>hypoxia</del> <del>Qualified</del> <del>Code(s):</del> <del>J96.21</del> <del>-</del> <del>Acute</del> <del>and</del> <del>chronic</del> <del>respiratory</del> <del>failure</del> <del>with</del> <del>hypoxia</del> <del>Code(s):</del> <del>J96.20</del> <del>-</del> <del>Acute</del> <del>and</del> <del>chronic</del> <del>respiratory</del> <del>failure,</del> <del>unspecified</del> <del>whether</del> <del>with</del> <del>hypoxia</del> <del>or</del> <del>hypercapnia</del> <del>Status:</del> <del>Acute</del> <del>Assessment</del> <del>and</del> <del>Plan:</del> <del>Normally</del> <del>uses</del> <del>oxygen</del> <del>3</del> <del>L</del> <del>only</del> <del>at</del> <del>night,</del> <del>has</del> <del>had</del> <del>oxygen</del> <del>deficit</del> <del>this</del> <del>admission</del> <del>requiring</del> <del>4</del> <del>L</del> <del>during</del> <del>the</del> <del>day</del> <del>to</del> <del>maintain</del> <del>adequate</del> <del>oxygenation.</del> <del>This</del> <del>is</del> <del>expected</del> <del>to</del> <del>be</del> <del>weaned</del> <del>prior</del> <del>to</del> <del>discharge.</del> <del>She</del> <del>will</del> <del>need</del> <del>a</del> <del>home</del> <del>oxygen</del> <del>study</del> <del>prior</del> <del>to</del> <del>discharge.</del> <del>She</del> <del>was</del> <del>playing</del> <del>have</del> <del>PFT</del> <del>soon</del> <del>but</del> <del>will</del> <del>need</del> <del>to</del> <del>fully</del> <del>recover</del> <del>before</del> <del>this</del> <del>testing.</del> <del> </del> <del>(4)</del> <del>PNA</del> <del>(pneumonia):</del> <del>Qualifiers:</del> <del>Pneumonia</del> <del>type:</del> <del>due</del> <del>to</del> <del>unspecified</del> <del>organism</del> <del>Laterality:</del> <del>unspecified</del> <del>laterality</del> <del>Lung</del> <del>location:</del> <del>unspecified</del> <del>part</del> <del>of</del> <del>lung</del> <del>Qualified</del> <del>Code(s):</del> <del>J18.9</del> <del>-</del> <del>Pneumonia,</del> <del>unspecified</del> <del>organism</del> <del>Code(s):</del> <del>J18.9</del> <del>-</del> <del>Pneumonia,</del> <del>unspecified</del> <del>organism</del> <del>Status:</del> <del>Acute</del> <del>Assessment</del> <del>and</del> <del>Plan:</del> <del>The</del> <del>patient</del> <del>has</del> <del>post</del> <del>influenza</del> <del>pneumonia,</del> <del>one</del> <del>of</del> <del>the</del> <del>most</del> <del>common</del> <del>complications</del> <del>of</del> <del>having</del> <del>influenza,</del> <del>and</del> <del>why</del> <del>it</del> <del>is</del> <del>important</del> <del>to</del> <del>be</del> <del>vaccinated</del> <del>against</del> <del>influenza.</del> <del>She</del> <del>has</del> <del>underlying</del> <del>COPD</del> <del>which</del> <del>is</del> <del>a</del> <del>risk</del> <del>factor</del> <del>and</del> <del>she</del> <del>had</del> <del>influenza</del> <del>a</del> <del>diagnosed</del> <del>November</del> <del>.</del> <del>Strep</del> <del>and</del> <del>staph</del> <del>are</del> <del>the</del> <del>most</del> <del>common</del> <del>etiologies</del> <del>seen</del> <del>in</del> <del>this</del> <del>setting.</del> <del> </del> <del>(5)</del> <del>Secondary</del> <del>pulmonary</del> <del>hypertension:</del> <del>Status:</del> <del>Acute</del> <del>Assessment</del> <del>and</del> <del>Plan:</del> <del>Echo</del> <del>12/06/2024</del> <del>shows</del> <del>mild</del> <del>pulmonary</del> <del>hypertension,</del> <del>RVSP</del> <del>is</del> <del>41</del> <del>mmHg,</del> <del>this</del> <del>is</del> <del>secondary</del> <del>to</del> <del>underlying</del> <del>COPD,</del> <del>hypoxemia,</del> <del>untreated</del> <del>obstructive</del> <del>sleep</del> <del>apnea.</del> <del> </del> <del>Plan</del> <del>plan:</del> <del>Continue</del> <del>current</del> <del>antibiotics,</del> <del>Cefepime</del> <del>and</del> <del>doxycycline.</del> <del>MRSA</del> <del>swab</del> <del>was</del> <del>negative</del> <del>12/04/24.</del> <del>Urine</del> <del>antigens</del> <del>are</del> <del>pending</del> <del>for</del> <del>S</del> <del>pneumoniae</del> <del>and</del> <del>Legionella.</del> <del>Add</del> <del>Cornet</del> <del>PEP</del> <del>valve</del> <del>to</del> <del>help</del> <del>clear</del> <del>secretions.</del> <del>The</del> <del>vibratory</del> <del>vest</del> <del>is</del> <del>helping</del> <del>significantly,</del> <del>and</del> <del>she</del> <del>may</del> <del>qualify</del> <del>for</del> <del>one</del> <del>at</del> <del>home</del> <del>as</del> <del>her</del> <del>baseline</del> <del>CT</del> <del>shows</del> <del>bronchiectasis.</del> <del>Also,</del> <del>she</del> <del>is</del> <del>benefitting</del> <del>from</del> <del>pneumatic</del> <del>compression</del> <del>stockings,</del> <del>using</del> <del>them</del> <del>in</del> <del>the</del> <del>hospital</del> <del>as</del> <del>a</del> <del>form</del> <del>of</del> <del>DVT</del> <del>prophylaxis,</del> <del>having</del> <del>improvement</del> <del>in</del> <del>her</del> <del>peripheral</del> <del>edema.</del> <del>Her</del> <del>activity</del> <del>level</del> <del>is</del> <del>limited</del> <del>due</del> <del>to</del> <del>spinal</del> <del>stenosis,</del> <del>chronic</del> <del>back</del> <del>pain</del> <del>as</del> <del>well</del> <del>as</del> <del>COPD,</del> <del>deconditioning.</del> <del>She</del> <del>has</del> <del>had</del> <del>pulmonary</del> <del>rehab</del> <del>earlier</del> <del>in</del> <del>2023.</del> <del>Continue</del> <del>management</del> <del>of</del> <del>COPD,</del> <del>lower</del> <del>solumedrol</del> <del>dose</del> <del>IV,</del> <del>transition</del> <del>when</del> <del>she</del> <del>has</del> <del>less</del> <del>rhonchi</del> <del>and</del> <del>wheezing.</del> <del>Delay</del> <del>her</del> <del>scheuduled</del> <del>PFTs</del> <del>until</del> <del>full</del> <del>recovers</del> <del>from</del> <del>this</del> <del>event.</del> Subjective Date/time seen: 12/09/24 14:23 Interval history: 12/09/24; hospital follow up, patient was seen in Room 332, ready to go home. She is on room air, has office visit with Dr Velásquez tomorrow. 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 SHe feels much better, has a cough with secretions, benefitted so much from using Cornet, and had great success using vibratory vest while she was here. 12/06/24 new consult; Jacy Mills is a 79-year-old woman, known to our clinic, last visit 09/18/24, COPD and NICOLA. She was in the ER Nov 24 with shortness of breath, cough, congestion, rigors, (+) influenza A, pneumonia, wanted to go home after admission was offered. Returned Dec 04 with increased symptoms and higher O2 requirement. She usually uses O2, 2-3L NC at night, none in the day. On admission, is using 3-4L NC 30/05. She also had non-productive cough, minimal congestion, and wheezing. She denies fever, chills, nausea, vomiting, chest pain, or body aches. She completed 2 rounds of antibiotics and is using rescue medication without much improvement. continues to use controller meds, did not think to use nebulizer with rescue medications. She tells me that she feels much better today compared to admission, is coughing with some sputum being expectorated. The vibratory vest is helping a great deal; she is interested in having a vibratory vest and pneumatic compression hose at home. She says that this admission, using the compression hose, swelling which she has had in her legs for years has finally resolved. She has not used PAP for quite a while, cannot stand the feel of the mask on her face. PMH of CKD, anxiety/depression, hypothyroidism, diabetes, GERD, hypertension, hyperlipidemia, CHF, asthma, NICOLA, COPD, insomnia, former smoker, and restless leg syndrome. She had COVID November 2023, a year ago. DATA * 12/06/2024; echo : Summary 1. Technically suboptimal study due to poor sonographic images. 2. Definity contrast administered improved wall motion interpretation. 3. Left ventricular chamber dimension is normal. 4. Left ventricular systolic function is hyperdynamic, estimated at >70%. 5. There is mild concentric increased left ventricular wall thickness. 6. The left ventricular diastolic function is grade I diastolic dysfunction. 7. E/e' 14 is mildly elevated. 8. The aortic valve is not well visualized. Cannot determine number of aortic valve leaflets. 9. There is moderate aortic valve sclerosis. 10. There is moderate aortic valve stenosis with a peak velocity of 317.77 cm/s, mean gradient of 24 mmHg, and aortic valve area of 1.49 cm2. 11. The mitral valve has mildly calcified annulus. 12. Mild pulmonary hypertension, estimated pulmonary arterial systolic pressure is 41 mmHg. 13. Dilated inferior vena cava with >50% collapse upon inspiration consistent with elevated right atrial pressure, 10 mmHg. * alpha-1 phenotype MM, normal * 12/06/24; white blood cell count elevated at 13.4, initially on admission 6.7, hemoglobin is 12, hematocrit 40.2%, platelet count 243 K. * 12/04/2024, arterial blood gas, pH 7.42, pCO2 44.4, PO2 83.1, HC03 28.3, saturation 96.4%, 4 L /min. She normally does not use supplemental oxygen during the day at home. * 12/04/24; CTA = IMPRESSION: No pulmonary embolus. No dissection or aneurysmal dilatation. Right basilar infiltrate. Mild pulmonary congestion. * 12/04/24 CXR Impression: Clear lungs. * 11/24/24 CXR; IMPRESSION: 1. Mild airspace opacities in left lower lung zone, consistent with atelectasis versus pneumonia. 10/10/2024: Outpatient [facility] rheumatology progress note, Dr. Zarina Carroll. diagnosis: Recurrent pneumonia, positive rheumatoid factor and Scl 70 antibody x1, negative on repeat testing. Last seen on 08/10/2024 with positive rheumatoid factor and a low positive Scl 70 antibody with recurrent pneumonias with some interstitial changes on her CT scan. Also reported polyarticular joint pain involving both hands and shoulders. She was also dealing with symptoms of a COPD exacerbation. Extensive serologic panel including MyoMarker panel, Anca vasculitis panel and TONEY panel and rheumatoid arthritis panel will or were all unremarkable. Now returns for follow-up. Continues to experience baseline shortness of breath. Denies any inflammatory joint pain. Denies Raynaud symptoms. No skin changes to suggest diagnosis of scleroderma. Weight 233 lb. Distant breath sounds with wheezes noted bilaterally. Data: 10/10/2024 creatinine 1.53. 08/10/2024: CRP 36.8, rheumatoid factor 15, ESR 30, JOSE negative, double-stranded DNA negative, TONEY antibody negative, anti Nancy 1 antibody negative, EJ antibody negative, KU antibody negative, mi -2 antibodies negative, OJ antibodies negative, PL - 12 antibodies negative, PL -7 antibody negative, SRP auto antibodies negative, anti U1 [employer] antibody negative, anti NMDA 5p1 40 antibody negative, anti NX P - 2p1 40 antibody negative, anti PD1 55-140 antibody negative, poly situs p.m.-Scl antibody negative, SSA 52 IgG negative, Anca indeterminate, myeloperoxidase negative, proteinase 3-, anti 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 Assessment and plan: Recurrent pneumonia with interstitial changes on CT with positive rheumatoid factor and Scl 70. Patient reported some poly arthralgias involving shoulders and hands that appeared noninflammatory in nature. Repeat serologic testing including RA panel, toney and additional serologies including MyoMarker panel were negative. No exam findings to suggest scleroderma rheumatoid arthritis. Modified peng mints skin score of 0. Repeat serologies today to exclude any lab error. The patient is to return to clinic as needed. 10/24/24: CT scan of the chest with mild septal thickening and reticulations greatest in the right lower lobe peripherally and increased from 03/05/2024. mild changes in the upper lobe without change from 03/05/2024. Mild bronchiectasis is unchanged. Will follow patient clinically. DATA: 10/24/24: EXAMINATION:CT diagnostic chest wo con DATE: 10/24/2024 13:22 INDICATION: Chronic obstructive pulmonary disease, unspecified.TECHNIQUE: Computed tomography (CT) of the chest was performed without intravenous contrast. Automated exposure control and iterative reconstruction technique were employed. The dose-length product (DLP) was 826.75 mGy-cm. COMPARISON: Chest CT 4/29/24, CT abdomen and pelvis 11/22/20FINDINGS: There is mild emphysema. There are peripheral groundglass opacities with septal thickening in the upper lobes. There is mild atelectasis in the inferior lungs. There is mild bronchiectasis in the inferior lungs. No pleural effusion. The heart size is normal. There are coronary artery calcifications. No pericardial effusion. There are cysts in the liver measuring up to 17 mm. There are changes of cholecystectomy. IMPRESSION: 1. Mild emphysema and mild chronic interstitial lung disease. 09/18/2024: This is a follow-up encounter from 06/12/2024 for COPD, ILD, NICOLA intolerant to BiPAP and morbid obesity. On 06/12/2024, regarding her COPD, she was recently getting over an exacerbation requiring 2 rounds of prednisone and was better.? She was stable with 1/4 block HOWELL, M MRC grade of 4, CAT score 21 and had limitations due to spinal stenosis as well as breathing.? She was on breasts tree 2 puffs b.i.d. rescue albuterol 1 time a month no oxygen at rest and 2 L with activity as prescribed.? I recommended pulmonary rehabilitation. On 06/12/2024, regarding her ILD, CT scan on 03/05/2024 showed mild subpleural reticulations with minimal interstitial thickening that had improved from 12/19/2023 with a positive Scl 70, positive anti KU, positive anti SRP, positive anti M 1-2 antibodies.? She developed new arthritis over the last 3-4 months and had new requirements for oxygen over the last year.? I referred her to [facility] rheumatology. Appointment was scheduled for 08/10/2024.? On 06/12/2024, regarding her NICOLA, she was intolerant to multiple masks, had partial dentures so not a candidate for an oral appliance and her BMI was 46.3 which is too higher for the inspire device.? I told her to wear 2 L at night and would do an overnight oximetry on room air.? Her weight was 237 lb he representing a 2 lb weight gain since 02/29/2024. 06/15/2024: Overnight oximetry on room air with hypoxemia.? I prescribed 3 L nasal cannula.? 07/11/2024: Presented to the emergency department with SOB for 1 week with productive cough.? She had noticed some swelling in her extremities.? Room air saturations 97%.? Diffuse wheezing.? White blood cell count 10.1, eosinophils 2.4%=242/uL.? BNP was 100, influenza, RSV, COVID negative she was treated with acute bronchitis and COPD exacerbation with prednisone, azithromycin and Augmentin. 07/17/2024: Overnight oximetry on 3 L nasal cannula with adequate oxygenation. 08/10/24: I spoke with [facility] Rheumatology, Dr. Carroll. reviewed patient's positive serologies. No skin findings consistent with scleroderma. Additional serologies to be sent, x-rays hands and shoulders to be sent. Additional immunosuppressants may be warranted depending on these studies. Patient had coarse wheezes and declined emergency room referral. We discussed the 2 week taper of prednisone ( 40 mg x 3 days, 30 mg x 3 days, 20 mg x 3 days, 10 mg x 3 days, 5 mg x 3 days) and I will prescribe azithromycin for 5 days. Today she tells me that She took prednisone on 08/10/2024 but noticed no improvement with the prednisone and azithromycin. She continued to have dyspnea on exertion, shortness of breath and rattling in her chest. She denied fevers. She really remain short of breath dressing and undressing, she has shortness of breath and back pain walking room to room and feels that she could walk 1/8 of a block which is somewhat worse than it was on 06/12/2024. She has no phlegm production. The patient was no better up until 2 days ago when she started to improve. Currently she is better and overall she tells me she is breathing better than she has over the last 6 years. She continues on breasts tree 2 puffs twice a day, short-acting beta agonist inhaler 0 to 2 times a day, albuterol nebulizer 1 time a week. She remains on Lasix 20. Overall she feels like she has gained weight but her weight is actually 2 lb less than she weighed on 06/12/2024. The patient is not wearing oxygen at rest and intermittently wearing oxygen at 2 L as prescribed with activity. She is using 3 L oxygen at night. She does not have a home pulse oximeter. Her CAT score today is 23. She continues with shoulder pain and lower back pain. She has not heard the results of her blood tests her x-rays from [facility] and has a follow-up appointment on 10/22/2024. She does not have daytime hypersomnia. She is using 3 L nasal cannula at night and her [place] score is 1. The patient is unwilling to receive the COVID vaccine and will consider influenza, RSV vaccines and the pneumonia shot. Prior visits 06/12/2024: This is a follow-up encounter from 02/29/2024 for GOLD grade 2 COPD, history of COVID pneumonia, NICOLA intolerant of BiPAP, and obesity.? On 02/29/2024, regarding her COPD, she had worsening HOWELL, minimal benefit from Breztri, M MRC grade of 4 and she could walk 1/4 of a block.? She is also limited by spinal stenosis and severe back pain.? She is supposed to be on Lasix 20 a day and she takes this once a month, she never recovered from her COVID pneumonia in December 07, 2023.? I ordered an alpha-1 genotype, PFTs, [address] scan.? I referred her to pulmonary rehabilitation.? I told her to be compliant with her Lasix 20 a day, she had untreated NICOLA but obtained a new mask recently and would start wearing her machine.? She declined vaccines. On 02/29/2024, regarding her COVID pneumonia on 12/07/2023, she felt she had completely recovered.? CT scan, 6 minute walk and PFTs ordered as above. On 02/29/2024, regarding her NICOLA on BiPAP.? She was noncompliant due to poorly fitting mask with a leak the caused a headache.? She had a new mask on 02/28/2024 and I encouraged her to wear her mask every night.? Her weight was 235.9 lb representing is 0.9 lb weight gain. 02/29/2024: Alpha 1 anti trypsin genotype MM. 03/05/2024: CT scan of the chest showed bilateral upper lobe mild subpleural reticulations with minimal interstitial thickening.? The interstitial changes had improved since 12/19/2023.? There is no evidence of post COVID organizing pneumonia or post COVID ILD. 03/20/2024:? Session 1 pulmonary rehabilitation, total exercise time 5 minutes on room air. 03/31/2024: Download from 03/02/2024 through 03/31/2024: Download with usage greater than or equal to 4 hours at 7%, AHI 1.2 median leak 29, I called the patient and left a voice message.? Discussed with the patient on 04/11/2024, patient is noncompliant with BiPAP because of mask leaking despite adjusting it tighter.? She has tried many different types of masks.? She does not qualify for an oral mandibular device because she has complete dentures on the top.? Does not qualify for an inspire system because her BMI was greater than 35.? I performed an overnight oximetry on room air. 04/09/2024:? PFTs demonstrated a moderate restrictive abnormality with an FEV1 of 1.26 L, 68%, ratio 70%, TLC 3.13 L, 68% predicted.? Normal DLCO.? In comparison to 10/13/2023 there had been a significant decrease in the functional residual capacity, residual volume with no other significant changes. 04/09/2024:? Home O2 assessment patient requires 2 L with activity and no oxygen at rest. 04/12/24: Serologies demonstrate rheumatoid factor 16.6, anti CCP peptide antibody < 16, Scl-70 Ab positive at 2.2 with normal being less than 1. CPK 321. Aldolase positive at 9.5 with normal being less than 8.1. Anca screen negative.? MyoMarker 3+ profile weakly positive for anti KU antibody, weak positive anti SRP antibody, weak positive anti Mi-2 antibody. I called the patient and she tells me that she has developed hand arthritis over the last 3-4 months. Her HOWELL has gotten much worse over the last few months. She also tells me that she had 2 nieces with lupus and a cousin with hardening of the skin and tight skin around her mouth. The patient denies any tight skin on her hands or mouth at this time. Review of her imaging back to 12/07/2017 demonstrates patchy ground-glass opacities with an upper lobe predominance. Imaging on 03/05/2024 again demonstrates mild subpleural reticulation and interstitial thickening in the upper lobes with minimal ground-glass opacities. Patient has new oxygen requirements and now requires oxygen for the last year with 2 L with activity. The patient may have scleroderma with ILD and I referred to [facility] rheumatology. The patient is in agreement. Patient tells me she has an appointment August 10, 2024 Today she tells me that she went to the emergency department on 05/28/2024 with bronchitis and was given prednisone and Augmentin for 5 days. She completed this and was unchanged and went to her PCP and was given antibiotics and steroids approximately 06/07/2024. The patient states she has been off of these for 2-3 days an overall she is better. She coughs up yellow phlegm occasionally and has not had any phlegm in the last 2 days. She has no hemoptysis. Patient has HOWELL is the same at 1/4 block, she stops because of spinal stenosis pain as well as breathing. Her M MRC grade is 4. The patient is taking Breztri 2 puffs b.i.d., short-acting beta agonist rescue 1 time a month. The patient is taking Lasix 20 a day. This has helped her edema. The patient is wearing 2 L with activity and no oxygen at rest as prescribed. She has checked her rest room air saturations at home and they are 93%. Her CAT score has improved from 25 to a value of 21. The patient is interested in restarting pulmonary rehabilitation. Regarding her NICOLA she is intolerant to any mass. She has upper dentures and would not qualify for a mandibular advice and her BMI is 46.3 making her ineligible for the inspire system. The patient states she had an overnight oxygen assessment but we do not have the results in our system. Currently the patient is not wearing any oxygen at night. Her [place] score is 2. Regarding her hand and shoulder arthritis this is been clinically stable. The patient denies any tightness in her skin. Patient's weight is 237 representing a 1 lb weight gain since 02/29/2024. Prior visits 02/29/2024: This is a follow-up encounter from 01/05/2024 for NICOLA on BiPAP, COPD, post COVID.? On 01/05/2024, regarding her NICOLA, she was on BiPAP and her pressure was decreased from 20/16 to 16/12 due to intolerance, pressure and leaks.? She responded struggling with the BiPAP despite 2 mask fittings.? Download with poor compliance at 37%, average usage per night 1 hour 1.2 hours, AHI 0.8.? Patient weighed 235 lb.? On 01/05/2024, regarding her COPD, Former smoker for 50 years quit in 2019.? CAT score was 18 (improved from 22 on the last visit).? It was felt she may have asthma-COPD overlap and the restriction may be related to obesity.? Other factors for HOWELL include obesity and lumbar stenosis back pain.? She cannot tolerate dry powder inhalers.? The plan was to stop of the Bevespi and start Breztri 2 inhalations b.i.d..? Set up with a new nebulizer with albuterol. On 01/05/2024, regarding her post COVID pneumonia (12/07/2023), she was treated with dexamethasone, cefdinir and azithromycin.? Discharged on 12/11/2023. To urgent care 12/19/[address] with continued symptoms [address] CT scan with mild patchy ground-glass opacities bilaterally.? Treated with doxycycline. Plan for repeat PFTs , CT scan, and 6 minute walk on 03/18/2024. Today she tells me that she has had no hospitalizations or exacerbations. The patient states that she started the breztri and takes 2 puffs twice a day. Overall she has noticed minimal improvement. She is taking no rescue albuterol. Her major complaint is HOWELL. When the patient gets up to walk she has both severe back pain from spinal stenosis as well as HOWELL. Usually her back pain begins 1st but she says the back pain does not cause her HOWELL. She has no rest SOB. The patient states that she wheezes daily. She has minimal cough or phlegm production. One year ago she says she could walk half a block and currently she says that she can walk less than that may be 1/4 of a block. She can walk room to room. She cannot walk in the grocery store. She does get short of breath at dressing. Her M MRC grade is 4. Her CAT score today is 25. Regarding her NICOLA she had an old fullface mask that leaked and would give her a headache. Yesterday she got a new mask that has a much luncheonette operator leak and feels much more comfortable for the patient. She wore it last night and said it felt good and she slept for 3 hours and then got up to urinate and forget to put the mask back on. Her [place] score is 0 and she feels tired all day. Download from 12/01/2023 through 02/28/2024 from [employer].? Patient is on BiPAP 22/10 in the spontaneous mode.? Total usage days is 47%. ?Usage days greater than or equal to 4 hours is 11%. ?Average usage on days used is 2 hours and 36 minutes.? AHI 0.6.? Apnea index 0.4, hypopnea index 0.2, central apnea index 0.0.? Median leak 34.3, 95th percentile leak 79.7, maximal leak 98.5.? Median tidal volume 509.? Median respiratory rate 18.? Median minute ventilation 9.2.? I interpret this download as very poor compliance, adequate pressures and high leak. Her weight today is 235.9 representing a 0.9 lb weight gain since 01/05/2024. 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 Prior visits NICOLA 6 week follow-up regarding COPD and NICOLA. Hx: CAD, heart failure, CKD, spinal stenosis, NICOLA (intolerant to PAP therapy), COPD, obesity. Patient was hospitalized 12/07-12/11 regarding COVID pneumonia. CXR showed mild airspace opacities in bilateral mid and lower lung zones which could represent pneumonia or less likely mild pulmonary edema. She was tx with abx and dexamethasone. She went to the [facility] 12/19 for URI and tx with doxycycline. Last visit, patient started Bevespi. She feels this has been helping with her dyspnea. She reports compliance with it. She is needing a new nebulizer as her broke. Denies fever, chest pains, or hemoptysis.Her pressure on BiPAP was decreased from 20/16 to 16/12 d/t intolerance with the pressure and leaks. She reports struggling with BiPAP despite 2 mask fittings by DME. Former smoker 0.5-1ppd for 50 years, quit 2019. CAT score 18, was 22 last visit. DATA: 07/17/2024: Overnight oximetry on 3 L nasal cannula. Recording duration 4 hours and 47 minutes. Baseline saturation 95%. High saturation 98%. Low saturation 89%. Time with saturation less than or equal to 88% was 0 minutes. Oxygen desaturation index 4.8. I will continue 3 L nasal cannula at night. 06/15/2024: Overnight oximetry on room air. Recording duration 6 hours and 17 minutes. Baseline saturation 85%. High saturation 94%. Low saturation 76%. Time with saturation less than or equal to 88% was 5 hours and 13 minutes. patient has nocturnal hypoxia and untreated NICOLA. Will attempt to correct hypoxia with 3 L nasal cannula. If she is in agreement will repeat overnight oximetry on 3 L. : Serologies demonstrate rheumatoid factor 16.6, anti CCP peptide antibody negative and the Scl- 70 antibody is positive at 2.2 with normal being less than 1. CPK 321. Aldolase positive at 9.5 with normal being less than 8.1. Anca screen negative. MyoMarker 3+ demonstrates weak positive for anti -KU antibody, anti SRP antibody and anti mi-2 antibody. Will forward these results to [facility] rheumatology. 04/09/2024: Home O2 assessment: Rest room air saturation 93%. Exercise room air saturation 87%. Exercise nasal cannula 2 L saturation 91%. Patient requires 2 L with activity and no oxygen at rest. 04/11/24: I talked to the patient regarding her noncompliance with her BiPAP and the patient says that she continues to have difficulty wearing her BiPAP mask. She will wear for a few hours but then it leaks and wakes her up. She then tries to adjust it titer and she still has a leak and this gives her a headache. She has tried all different types of head covers and mass and has difficulty with all of them. The patient does not qualify for an oral mandibular device because she has complete dentures on the top. The patient does not qualify for an inspire system as her BMI is greater than 35. I will perform an overnight oximetry on room air in attempt to Qualify her for oxygen and provide her adequate oxygenation with nasal cannula oxygen 04/09/2024: This is a pulmonary function test with pre and post-bronchodilator spirometry, plethysmography and diffusing capacity. The test was performed and results interpreted in accordance with the 2019 and 2005 ATS/ERS Task Force guidelines respectively using the Global Lung Function Initiative-2012 reference equations. Patient demonstrated good effort and cooperation. Reproducibility criteria were met. The quality of the pre bronchodilator spirometry maneuver was Grade A and post bronchodilator spirometry maneuver was Grade A. Findings: Spirometry: The contour the inspiratory and expiratory flow tracing are normal. The pre bronchodilator FVC is 1.80 L, 75% predicted. The pre bronchodilator FEV1 is 1.26 L, 68% predicted. The pre bronchodilator FEV1: FVC ratio 70%. The post bronchodilator FVC is 1.97 L, representing a 10% increase. The post bronchodilator FEV1 is 1.46 L, representing a 16% increase. The post bronchodilator FEV1: FVC ratio 74%. Plethysmography: The total lung capacity is 3.13 L, 68% predicted. Functional residual capacity is 1.28 L, 49% predicted. The residual volume is 1.25 L, 58% predicted. Diffusing capacity: The diffusing capacity unadjusted for hemoglobin and carboxyhemoglobin is 12.6, 67% predicted. The diffusing capacity adjusted for alveolar volume is 4.38, 101% predicted. In comparison to previous pulmonary function testing on 10/13/2023, the post bronchodilator FVC is unchanged from 1.81 L to 1.97 L. The post bronchodilator FEV1 is unchanged from 1.34 L to 1.46 L. the total lung capacity is unchanged from 3.41 L to 3.13 L. The functional residual capacity is decreased from 1.79 L to 1.28 L. The residual volume is decreased from 1.63 L to 1.25 L. The diffusing capacity unadjusted for hemoglobin and carboxyhemoglobin is unchanged from 14.6-12.6. The diffusing capacity adjusted for alveolar volume is unchanged from 4.75 L to 4.38. Impression: There is a moderate restrictive ventilatory abnormality. The spirometry is normal without evidence of an obstructive abnormality. There is significant improvement after inhaling a single dose of albuterol. The diffusing capacity is normal. In comparison to previous pulmonary function testing on 10/13/2023 there has been a greater than anticipated time dependent decrease in the functional residual capacity, residual volume with no significant change in the FVC, FEV1, total lung capacity or diffusing capacity. Download from 03/02/2024 through 03/31/2024 from [employer].? Patient is on BiPAP 22/10 in the spontaneous mode.? Total usage days is 37%. ?Usage days greater than or equal to 4 hours is 7%. ?Average usage on days used is 2 hours and 37 minutes.? AHI 1.2.? Apnea index 0.6, hypopnea index 0.6, central apnea index 0.2.? Median leak 29.0, 95th percentile leak 57.6, maximal leak 83.8.? Median tidal volume 438.? Median respiratory rate 16.? Median minute ventilation 7.2.? I interpret this download as noncompliance, adequate pressures and high leak. I called the clinic I called the patient to discuss her poor compliance and left a voice message for her to return a call to the clinic. 02/29/2024: Alpha 1 anti trypsin genotype MM, normal 03/05/24: CT Scan of the Chest without Contrast: Clinical Indication: Pneumonia, COPD COMPARISON: 12/19/2023 Findings: There is no evidence of any significant mediastinal, hilar or axillary lymphadenopathy. There are extensive atherosclerotic calcifications of the aorta and coronary arteries. There is no evidence of pleural or pericardial effusion. There is mild subpleural reticulation and minimal interstitial thickening bilaterally in the upper lobes. Images through the upper abdomen reveal no abnormalities. Impression: Minimal chronic interstitial changes, predominantly in the upper lobes. Chest CT 12/19/23 - Mild patchy groundglass opacities bilaterally. Consider Covid 19 pneumonia or other atypical infectious/inflammatory process. PFT 10/13/23 - This study?shows a small airways pattern with good response to bronchodilator, mild restriction, normal diffusion.? The repeatability was not optimal although the patient had optimal effort. Split night PSG 09/05/23 - mild, almost moderate NICOLA with an AHI 14.5 during the baseline without REM, minimum saturation 82%, titrated to BiPAP 20/16 using a medium ResMed AirTouch F20 fullface mask with heated humidity.? ? At the optimal BiPAP pressure of 20/16, the residual apnea-hypopnea index was 3.1 and the mean saturation was 90.5%.??The patient had significant limb movements during the night, during the baseline periodic limb movement index was 133.5, during treatment 36.5. Chest CTA 09/20/22 - Bilateral pneumonia involving particularly the posterior segment of the right upper lobe and bilateral lower lobes, with mild probable reactive hilar and mediastinal lymph node prominence LDCT 12/17/19 - mild emphysema and bronchiectasis Review of Systems Review of Systems: All systems reviewed & are unremarkable except as noted in HPI and below Exam Narrative: GEN: Alert, oriented, not in distress. Room air, saturation 91-93% HEENT: pupils are equal, EOMI, symmetrical face; oral membranes moist NECK: Trachea is midline CHEST: Equal air entry, symmetric excursion, fewer rhonchi throughout both lungs with coughing CV: Regular S1S2 no m/g/r ABD : (+) bowel sounds Extremities : no clubbing, cyanosis, or edema; calves have no wrinkles, has no evidence of chronic edema, stasis, no rash; she has brisk capillary refill. PSYCH: normal thought and speech, gait is not tested Objective Data Vital Signs Vital Signs: Vital Signs - 24 hr 12/06/24 14:00 12/06/24 20:00 12/06/24 20:25 Temperature 36.6 C Pulse Rate 74 Respiratory Rate 20 Blood Pressure 92/76 L Pulse Oximetry 92 95 95 Oxygen Delivery Nasal Cannula Nasal Cannula Oxygen Flow Rate 4 4 12/06/24 20:26 12/06/24 20:35 12/06/24 21:54 Temperature 36.4 C Pulse Rate 72 75 79 Respiratory Rate 20 20 20 Blood Pressure 123/52 L Pulse Oximetry 95 Oxygen Delivery Oxygen Flow Rate 12/07/24 06:00 12/07/24 08:00 12/07/24 08:36 Temperature 36.1 C L Pulse Rate 60 Respiratory Rate 20 Blood Pressure 123/56 L Pulse Oximetry 96 95 95 Oxygen Delivery Nasal Cannula Nasal Cannula Oxygen Flow Rate 4 4 12/07/24 08:36 Temperature Pulse Rate 65 Respiratory Rate 20 Blood Pressure Pulse Oximetry Oxygen Delivery Oxygen Flow Rate Intake/Output Intake/Output: Intake & Output 12/04/24 12/05/24 12/06/24 12/07/24 23:59 23:59 23:59 23:59 Intake Total 150 1320 2720 894 Output Total 400 1150 250 Balance 045 278 8459 644 Meds/Results Medications: Active Medications Generic Name Dose Route Start Last Admin Trade Name Freq PRN Reason Stop Dose Admin Acetaminophen 650 mg 12/04/24 19:25 12/07/24 09:46 Acetaminophen 325 Mg Tablet PO 650 mg Q4H PRN Administration Mild Pain (1-3) or Fever Albuterol/Ipratropium 3 ml 12/04/24 20:00 12/07/24 08:36 Ipratropium 0.5 Mg/Albuterol Sulfate 2.5 Mg Ampul.Neb 3 Ml INHALATION 3 ml Q6HRT LATOYA Administration Alprazolam 0.25 mg 12/05/24 14:52 12/06/24 21:11 Alprazolam (*Crx) 0.25 Mg Tablet PO 0.25 mg TID PRN Administration Anxiety Amlodipine Besylate 5 mg 12/05/24 09:00 12/07/24 09:38 Amlodipine Besylate 5 Mg Tablet PO 5 mg DAILY LATOYA Administration Benzonatate 100 mg 12/04/24 19:25 12/06/24 21:11 Benzonatate 100 Mg Capsule PO 100 mg TID PRN Administration Cough Lidocaine HCl 30 ml/ Al Hydrox 0 ml 12/06/24 13:00 12/07/24 12:32 /Mg Hydrox/Simethicone 30 ml/ PO 5 ml Diphenhydramine HCl 75 mg Q4HWA LATOYA Administration Dextrose 12.5 gm 12/04/24 22:34 Dextrose 50% 25 Gm/50 Ml Syringe IV PUSH PRN PRN Hypoglycemia Protocol Doxycycline Hyclate 100 mg 12/05/24 09:00 12/07/24 09:38 Doxycycline Hyclate 100 Mg Tablet PO 100 mg Q12HR LATOYA Administration Empagliflozin 25 mg 12/05/24 09:00 12/07/24 09:38 Empagliflozin 25 Mg Tablet BY MOUTH 25 mg DAILY LATOYA Administration Fluticasone/Umeclidinium/Vilanterol 1 puff 12/05/24 08:00 12/07/24 08:35 Fluticasone/Umeclidin/Vilanter 100-62.5-25 Mcg Ellipta INHALATION 1 puff DAILYRT LATOYA Administration Glucagon 1 mg 12/04/24 22:34 Glucagon For Inj 1 Mg Vial IM PRN PRN Hypoglycemia Protocol Glucose 15 gm 12/04/24 22:34 Glucose Oral Gel 15 Gm Of Glucse In 37.5 Gm Tube PO PRN PRN Hypoglycemia Protocol Guaifenesin 600 mg 12/04/24 21:00 12/07/24 09:38 Guaifenesin 12 Hr 600 Mg Tabcr PO 600 mg Q12HR LATOYA Administration Cefepime HCl 2 gm in 50 mls @ 100 mls/hr 12/05/24 09:00 12/07/24 09:38 Maxipime 2 Gm/Ns 50 Ml IVPB 100 mls/hr Q12HR LATOYA Administration Dextrose 1,000 mls @ 100 mls/hr 12/04/24 22:34 Dextrose 5% 1,000 Ml IVPB PRN PRN Hypoglycemia Protocol Insulin Aspart 4 - 8 units 12/05/24 08:00 12/07/24 12:31 Insulin Aspart (*Bkc) 100 Units/Ml SUB-Q 4 units TIDWM LATOYA Administration Protocol Isosorbide Mononitrate 30 mg 12/05/24 09:00 12/07/24 09:38 Isosorbide Mononitrate 30 Mg Tab.Er.24h PO 30 mg DAILY LATOYA Administration Levothyroxine Sodium 75 mcg 12/05/24 06:30 12/07/24 05:37 Levothyroxine Sodium 75 Mcg Tablet PO 75 mcg DAILY@0630 LATOYA Administration Magnesium Oxide 400 mg 12/05/24 09:00 12/07/24 09:38 Magnesium Oxide 400 Mg Tablet PO 400 mg BID LATOYA Administration Melatonin 5 mg 12/04/24 22:00 12/06/24 21:11 Melatonin 5 Mg Tablet PO 5 mg HS LATOYA Administration Methylprednisolone Sodium Succinate 40 mg 12/07/24 00:00 12/07/24 12:29 Methylprednisolone Sod Succ 40 Mg Vial IV PUSH 40 mg Q6HR LATOYA Administration Minoxidil 2.5 mg 12/05/24 09:00 12/07/24 09:38 Minoxidil 2.5 Mg Tablet PO 2.5 mg DAILY LATOYA Administration Miscellaneous Information 0 each 12/04/24 00:01 Vortioxetine Nonform Can Pt Bring From Home? XX 01/03/25 00:00 [facility] Non-Formulary Medication 20 mg 12/05/24 09:00 Vortioxetine [Trintellix] PO 01/04/25 08:59 [facility] Ondansetron HCl 4 mg 12/05/24 00:34 12/06/24 09:06 Ondansetron Inj 4 Mg/2 Ml Vial IV PUSH 4 mg Q6H PRN Administration Nausea And Vomiting Oxybutynin Chloride 10 mg 12/05/24 21:00 12/06/24 21:11 Oxybutynin Chloride Xl 5 Mg Tab.Er.24 PO 10 mg HS LATOYA Administration Pregabalin 200 mg 12/05/24 09:00 12/07/24 09:38 Pregabalin (*Crx) 50 Mg Capsule PO 200 mg BID LATOYA Administration Rosuvastatin Calcium 10 mg 12/05/24 21:00 12/06/24 21:11 Rosuvastatin 10 Mg Tablet PO 10 mg HS LATOYA Administration Radiology Results: ITS Impressions Chest X-Ray 12/04/24 12:57 Impression: Clear lungs. Chest CTA 12/04/24 17:42 IMPRESSION: No pulmonary embolus. No dissection or aneurysmal dilatation. Right basilar infiltrate. Mild pulmonary congestion. Venous Doppler Study 12/05/24 09:30 IMPRESSION: 1. No deep venous thrombosis. Labs Labs: Laboratory Results - last 24 hr 12/06/24 12/06/24 12/07/24 16:39 23:30 07:13 WBC 11.4 H RBC 4.27 Hgb 11.8 L Hct 39.4 MCV 92.3 MCH 27.6 MCHC 29.9 L RDW 14.6 H Plt Count 216 MPV 11.4 H Immature Gran % (Auto) 1.8 H Neut % (Auto) 92.1 H Lymph % (Auto) 3.5 L Mason % (Auto) 2.4 L Eos % (Auto) 0.1 Baso % (Auto) 0.1 L Lymph # (Auto) 0.40 L Mason # (Auto) 0.3 Eos # (Auto) 0.0 Baso # (Auto) 0.0 Abs Immat Gran (auto) 0.20 H Absolute Neuts (auto) 10.5 H Absolute Nucleated RBC 0.000 Nucleated RBC % 0.0 Platelet Estimate Adequate Anisocytosis 1+ Schistocytes None seen Sodium 142 Potassium 5.3 H Chloride 105 Carbon Dioxide 30 Anion Gap 7 BUN 51 H D Creatinine 1.85 H Estim Creat Clear Calc 26 Estimated GFR 26 L Glucose 165 H POC Capillary Glucose 117 H 225 H Calcium 8.7 Total Bilirubin 0.5 AST 20 ALT 13 Alkaline Phosphatase 53 Total Protein 7.0 Albumin 3.4 L 12/07/24 12/07/24 07:59 11:16 WBC RBC Hgb Hct MCV MCH MCHC RDW Plt Count MPV Immature Gran % (Auto) Neut % (Auto) Lymph % (Auto) Mason % (Auto) Eos % (Auto) Baso % (Auto) Lymph # (Auto) Mason # (Auto) Eos # (Auto) Baso # (Auto) Abs Immat Gran (auto) Absolute Neuts (auto) Absolute Nucleated RBC Nucleated RBC % Platelet Estimate Anisocytosis Schistocytes Sodium Potassium Chloride Carbon Dioxide Anion Gap BUN Creatinine Estim Creat Clear Calc Estimated GFR Glucose POC Capillary Glucose 193 H 235 H Calcium Total Bilirubin AST ALT Alkaline Phosphatase Total Protein Albumin
--- NOTE | 2024-12-07 15:31 | P.CONCA_ITS ---
Assessment and Plan Assessment and plan (1) Grade I diastolic dysfunction: Code(s): I51.89 - Other ill-defined heart diseases Status: Acute Assessment and Plan: Clinically she is not in decompensated heart failure. No pulmonary edema or pleural effusions on CXR. 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 No specific cardiac recommendations to make. (2) HTN (hypertension): Qualifiers: Hypertension type: unspecified Qualified Code(s): I10 - Essential (primary) hypertension Code(s): I10 - Essential (primary) hypertension Status: Chronic Assessment and Plan: Blood pressure is at goal. Continue current medical regimen without change. Plan Cardiology will sign off please call with any questions. History of Present Illness History of Present Illness Consult date/time: 12/07/24 15:31 Requesting physician: Valery Villalba APRN Consult reason: Other ( medication recommendations ) Reason For Visit: Chronic respiratory failure Narrative: Jacy Mills is a 79 year old female with COPD, morbid obesity, and congestive heart failure. She also carries a diagnosis of coronary artery disease although she states she had a left heart cath at some point and she was told her arteries are as clean as a 21 year olds. She follows with Dr. Ramsey at [facility]. This is a patient who came to the hospital with shortness of breath and has been treated for pneumonia. She is feeling much better at this point and is still requiring oxygen, but she does wear 2-3L at home. An echocardiogram was performed that showed preserved LVEF, moderate with SAUD 1.49cm2, and mild pHTN. Review of Systems 2 Review of Systems: All systems reviewed & are unremarkable except as noted in HPI and below PMFSH Past Medical History Medical History Primary insomnia Anemia Hx of thyroid cancer s/p total thyroidectomy Cardiac pacemaker in situ Chronic kidney disease Carpal tunnel syndrome Kidney stones Anxiety Depression Hypothyroidism Diabetes Arthritis Renal disease Hiatal hernia GERD (gastroesophageal reflux disease) Pneumonia HTN (hypertension) HLD (hyperlipidemia) CHF (congestive heart failure) Bronchitis Asthma NICOLA (obstructive sleep apnea) Chronic obstructive pulmonary disease RLS (restless legs syndrome) Surgical History Surgical History History of cataract extraction History of total thyroidectomy Hx of elbow surgery bilateral ulnar release History of carpal tunnel release Hx of spinal surgery Hx of hysterectomy Hx of cholecystectomy Family History Family History Father Family history of heart disease in male family member before age 55 Family history of malignant neoplasm of brain Hypertension Pulmonary disease Mother Family history of heart disease in male family member before age 55 Family history of diabetes mellitus in first degree relative Social History Social History Social History: Surrogate medical decision maker: Neena Hazel, granddaughter. Code status: Full code. Smoking packs per day: 1 Smoking cigarettes per day: 20.0 Years smoked: 50 Smoking pack-years: 50.00 Smoking status: Former smoker Tobacco type: cigarettes Alcohol intake: never Substance use: never Substance use type: does not use Do You Feel Safe in your Home?: Yes Lack of Transportation: No Lack of Food: Never True Current Housing: I Have Housing Concerned About Future Housing: No Difficulty Paying Gas/Electric Bills: No Difficulty Paying for Meds: No Currently Unemployed: No Education: High School Diploma/GED Difficulty w/ Childcare or Family Care: No Living arrangements: alone Additional living arrangements comments: The patient lives in her own home in [place]. 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 Gender identity (if verbalized by the patient): Female 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: No Meds Home Medications and Allergies Home Medications ?Medication ?Instructions ?Recorded ?Confirmed ?Type amlodipine 5 mg tablet 5 mg PO DAILY 09/21/22 12/04/24 History oxybutynin chloride 10 mg 10 mg PO HS 09/21/22 12/04/24 History tablet,extended release 24 hr albuterol sulfate 2.5 mg/3 mL 2.5 mg (3 mL) inhalation Q4-6H PRN 08/17/23 12/04/24 Rx (0.083 %) solution for nebulization shortness of breath or wheezing #180 mL magnesium oxide 400 mg PO BID 09/15/23 12/04/24 History pregabalin 200 mg capsule 200 mg PO BID 09/15/23 12/04/24 History rosuvastatin 10 mg tablet 10 mg PO HS 09/15/23 12/04/24 History vortioxetine 20 mg tablet 20 mg PO DAILY 09/15/23 12/04/24 History (Trintellix) furosemide 20 mg tablet 20 mg PO DAILY 12/07/23 12/04/24 History dapagliflozin propanediol 10 mg 10 mg PO DAILY #90 tabs 01/23/24 12/04/24 Rx tablet Breztri Aerosphere 160 See Rx Instructions .Route 05/30/24 12/04/24 Rx mcg-9mcg-4.8mcg/actuation HFA .COMPLEX #10.7 grams aerosol inhaler ([id number]) albuterol sulfate 90 mcg/actuation 2 puff inhalation QID PRN 07/11/24 12/04/24 Rx aerosol inhaler shortness of breath or wheezing #8.5 grams isosorbide mononitrate 30 mg 30 mg PO DAILY 12/04/24 12/04/24 History tablet,extended release 24 hr levothyroxine 75 mcg tablet 75 mcg PO DAILY@0630 12/04/24 12/04/24 History (Unithroid) minoxidil 2.5 mg tablet 2.5 mg PO DAILY 12/04/24 12/04/24 History Allergies Allergy/AdvReac Type Severity Reaction Status Date / Time NILTON Inhibitors Allergy Unknown Angioedema Verified 12/04/24 11:49 lisinopril Allergy Dyspnea / Verified 12/04/24 11:49 SOB Vital Signs Vital Signs - 24 hr 12/06/24 20:00 12/06/24 20:25 12/06/24 20:26 Temperature Pulse Rate 72 Respiratory Rate 20 Blood Pressure Pulse Oximetry 95 95 Oxygen Delivery Nasal Cannula Nasal Cannula Oxygen Flow Rate 4 4 12/06/24 20:35 12/06/24 21:54 12/07/24 06:00 Temperature 36.4 C 36.1 C L Pulse Rate 75 79 60 Respiratory Rate 20 20 20 Blood Pressure 123/52 L 123/56 L Pulse Oximetry 95 96 Oxygen Delivery Oxygen Flow Rate 12/07/24 08:00 12/07/24 08:36 12/07/24 08:36 Temperature Pulse Rate 65 Respiratory Rate 20 Blood Pressure Pulse Oximetry 95 95 Oxygen Delivery Nasal Cannula Nasal Cannula Oxygen Flow Rate 4 4 12/07/24 14:52 12/07/24 15:01 Temperature Pulse Rate 67 72 Respiratory Rate 18 18 Blood Pressure Pulse Oximetry Oxygen Delivery Oxygen Flow Rate Exam 2 Const: General: comfortable, no acute distress, alert and awake O rientation/consciousness: patient oriented x3 Other: Morbidly obese HENMT: Head: normal to inspection Eyes: General: appearance normal, both eyes and all related structures P upils: Equal, round and reactive pupils present Neck: Neck: normal visual inspection and supple Carotids: normal carotid upstroke Resp: Effort & Inspection: normal respiratory effort Auscultation: clear to auscultation bilaterally, rhonchi and diminished lung sounds Cardio: Rate: regular rate Rhythm: regular rhythm Heart sounds: S1 normal heart sound present, S2 normal heart sound present and Murmur heart sound present GI: Auscultation: normal bowel sounds Skin: General skin exam: normal color Neuro: General: patient oriented x3 Cranial nerves: Yes Equal, round and reactive pupils present Extrem: General: normal to inspection Other: no edema Psych: Appearance: grossly normal Mental Status: mental status grossly normal Results Labs and Meds 12/07/24 07:13 12/07/24 07:13 Lab results: Cardiac Enzymes 12/07/24 Range/Units 07:13 AST 20 (14-36) U/L CBC 12/07/24 Range/Units 07:13 WBC 11.4 H (4.5-10.0) K/mm3 RBC 4.27 (4.2-5.4) M/mm3 Hgb 11.8 L (12.0-15.0) g/dL Hct 39.4 (37.0-47.0) % Plt Count 216 (150-375) k/mm3 Lymph # (Auto) 0.40 L (0.9-3.2) K/mm3 [place] # (Auto) 0.3 (0.1-0.6) K/mm3 Eos # (Auto) 0.0 (0-0.3) K/mm3 Baso # (Auto) 0.0 (0.0-0.1) K/mm3 Comprehensive Metabolic Panel 12/07/24 Range/Units 07:13 Sodium 142 (137-145) mmol/L Potassium 5.3 H (3.4-5.0) mmol/L Chloride 105 (98-107) mmol/L Carbon Dioxide 30 (22-30) mmol/L BUN 51 H D (7-17) mg/dL Creatinine 1.85 H (0.7-1.0) mg/dL Glucose 165 H (65-110) mg/dL Calcium 8.7 (8.4-10.2) mg/dL AST 20 (14-36) U/L ALT 13 (6-35) U/L Alkaline Phosphatase 53 (38-126) U/L Total Protein 7.0 (6.3-8.2) g/dL Albumin 3.4 L (3.5-5.1) g/dL Intake and Output 12/06/24 12/07/24 12/07/24 23:59 07:59 15:59 Intake Total 1790 300 594 Output Total 800 250 Balance 990 50 594 Intake: IV 50 Cefepime 2 gm/Ns 50 ml 2 gm In 50 50 ml @ 100 mls/hr IVPB Q12HR LATOYA Rx#:[id number] Oral 1740 300 594 Output: Urine 800 250 Other: # Unmeasured Voids 3
[2024-12-07 16:25] LABS: Glucose Point of Care 236 mg/dl (65-105)
[2024-12-07 20:25] LABS: Glucose Point of Care 271 mg/dl (65-105)
[2024-12-07] MEDS: oxyBUTYnin CHLORIDE XL 5 MG TAB.ER.24 10 MG PO (20:36)
[2024-12-07] MEDS: ROSUVASTATIN 10 MG TABLET PO (20:36)
[2024-12-07] MEDS: MELATONIN 5 MG TABLET PO (20:36)
[2024-12-07] MEDS: ALPRAZolam (*CRX) 0.25 MG TABLET PO (20:41)
[2024-12-08] VITALS (10 sets, daily range): BP systolic 120–150; BP diastolic 48–60; PULSE 58–71; RESP 14–22; TEMP 36.2–36.8; O2SAT 91–97
[2024-12-08] MEDS: methylPREDNISolone SOD SUCC 40 MG VIAL IV PUSH ×3 (03:01→18:19)
[2024-12-08] MEDS: IPRATROPIUM 0.5 MG/ALBUTEROL SULFATE 2.5 MG AMPUL.NEB 3 ML INHALATION ×4 (04:11→21:31)
[2024-12-08] MEDS: LIDOCAINE 2% VISC SOLN 30 ML, ALUMINUM/MAGNESIUM/SIMETH SUSP 30 ML, diphenhydrAMINE HCl... PO ×5 (05:53→21:51)
[2024-12-08] MEDS: LEVOTHYROXINE SODIUM 75 MCG TABLET PO (05:53)
[2024-12-08 06:59] LABS: Basophils Percent Auto 0.2 % (0.2-1.2); Eosinophils Percent Auto 0.1 % (0-4.4); Hematocrit 41.2 % (37.0-47.0); Hemoglobin 12.4 g/dL (12.0-15.0); Immature Granulocyte Absolute 0.23 K/mm3 (0.00-0.031); Immature Granulocyte Percent A 2.5 % (0-0.5); Lymphocytes Absolute Auto 0.38 K/mm3 (0.9-3.2); Lymphocytes Percent Auto 4.2 % (18.3-44.2); Mean Corpuscular HGB Conc 30.1 g/dl (32-36); Mean Corpuscular Hemoglobin 27.7 pg (26-34); Mean Corpuscular Volume 92.2 fl (80-100); Mean Platelet Volume 11.7 fl (7.4-10.4); Monocytes Absolute Auto 0.5 K/mm3 (0.1-0.6); Monocytes Percent Auto 5.4 % (2.6-8.5); Neutrophils Percent Auto 87.6 % (45.5-73.1); Platelet Count Result 190 k/mm3 (150-375); Red Blood Count 4.47 M/mm3 (4.2-5.4); Red Cell Distribution Width 14.5 % (11.5-14.5); White Blood Count 9.1 K/mm3 (4.5-10.0)
[2024-12-08 07:10] LABS: Alanine Aminotransferase 14 U/L (6-35); Albumin Level 3.9 g/dL (3.5-5.1); Alkaline Phosphatase 58 U/L (38-126); Anion Gap 5 mmol/L (4-12); Aspartate Amino Transferase 18 U/L (14-36); Bilirubin,Total 0.5 mg/dL (0.2-1.3); Blood Urea Nitrogen 51 mg/dL (7-17); Carbon Dioxide 32 mmol/L (22-30); Chloride 104 mmol/L (98-107); Estimated CRCL calculation 28 ml/min; Estimated Glomerular Filt Rate 29; Glucose 174 mg/dL (65-110); Potassium 5.4 mmol/L (3.4-5.0); Sodium 141 mmol/L (137-145)
[2024-12-08 07:54] LABS: Anisocytosis 1+; Ovalocytes 1+; Platelet Estimate Adequate (Adequate); Schistocytes None Seen
[2024-12-08 07:55] LABS: Glucose Point of Care 150 mg/dl (65-105)
[2024-12-08] MEDS: CEFEPIME 2 GM/NS 50 ML 2 GM/50 ML BAG IVPB ×2 (08:23→21:27)
[2024-12-08] MEDS: amLODIPine BESYLATE 5 MG TABLET PO (08:25)
[2024-12-08] MEDS: MAGNESIUM OXIDE 400 MG TABLET PO ×2 (08:25→17:04)
[2024-12-08] MEDS: DOXYCYCLINE HYCLATE 100 MG TABLET PO ×2 (08:25→21:27)
[2024-12-08] MEDS: PREGABALIN (*CRX) 50 MG CAPSULE 200 MG PO ×2 (08:25→17:04)
[2024-12-08] MEDS: guaiFENesin 12 HR 600 MG TABCR PO ×2 (08:25→21:27)
[2024-12-08] MEDS: EMPAGLIFLOZIN 25 MG TABLET BY MOUTH (08:25)
[2024-12-08] MEDS: minoxidiL 2.5 MG TABLET PO (08:26)
[2024-12-08] MEDS: ISOSORBIDE MONONITRATE 30 MG TAB.ER.24H PO (08:26)
[2024-12-08] MEDS: FLUTICASONE/UMECLIDIN/VILANTER 100-62.5-25 MCG ELLIPTA 1 PUFF INHALATION (08:33)
--- NOTE | 2024-12-08 10:23 | P.PNIM_ITS ---
Progress Note: A&P Assessment and Plan (1) Acute and chronic respiratory failure: Qualifiers: Respiratory failure complication: hypoxia Qualified Code(s): J96.21 - Acute and chronic respiratory failure with hypoxia Code(s): J96.20 - Acute and chronic respiratory failure, unspecified whether with hypoxia or hypercapnia Status: Acute Assessment and Plan: - CXR: Clear lungs - CTA chest: No pulmonary embolus. No dissection or aneurysmal dilatation. Right basilar infiltrate. Mild pulmonary congestion. - viral PCR negative, flu A positive on 11/24/2024 - pulmonology consulted, awaiting formal recs Suspect acute on chronic respiratory failure is multifactorial including pneumonia, COPD exacerbation, and sequela from recent influenza infection on 11/24. See respective sections. - Wean oxygen to keep Sa02 >91%. -Will need home 02 study when ready for discharge. (2) Community acquired pneumonia: Qualifiers: Laterality: right Lung location: lower lobe of lung Qualified Code(s): J18.9 - Pneumonia, unspecified organism Code(s): J18.9 - Pneumonia, unspecified organism Status: Acute Assessment and Plan: - did not meet SIRS criteria. however blood cultures obtained on 12/04, follow. Lactic 1.5. - chest CTA showing right basilar infiltrate - risk factors and complicating factors: recent antibiotic courses, recent influenza A infection, COPD - started on HAP tx given recent failed ABX course: Cefepime, doxycycline p.o., vancomycin - MRSA PCR and sputum culture - legionella antigen, pneumococcal antigen, Mycoplasma IgM - Viral PCR negative - CPT, vest b.i.d. as tolerated - supportive care: Tessalon Perles p.r.n. Mucinex veronica DuoNebs veronica Methylprednisolone IV veronica decreased today to 40 mg ivp BID Tylenol p.r.n. - decreased supplemental O2 requirement: 91% RA and was on 2 liters earlier per patient. (3) COPD exacerbation: Code(s): J44.1 - Chronic obstructive pulmonary disease with (acute) exacerbation Status: Acute Assessment and Plan: - DuoNebs veronica - dercreased methylprednisone 40 mg IV veronica BID - continue home inhalers: Bretzi 2 puffs twice daily - Pulmonology consulted. - Echocardiogram showed: Summary 1. Technically suboptimal study due to poor sonographic images. 2. Definity contrast administered improved wall motion interpretation. 3. Left ventricular chamber dimension is normal. 4. Left ventricular systolic function is hyperdynamic, estimated at >70%. 5. There is mild concentric increased left ventricular wall thickness. 6. The left ventricular diastolic function is grade I diastolic dysfunction. 7. E/e' 14 is mildly elevated. 8. The aortic valve is not well visualized. Cannot determine number of aortic valve leaflets. 9. There is moderate aortic valve sclerosis. 10. There is moderate aortic valve stenosis with a peak velocity of 317.77 cm/s, mean gradient of 24 mmHg, and aortic valve area of 1.49 cm2. 11. The mitral valve has mildly calcified annulus. 12. Mild pulmonary hypertension, estimated pulmonary arterial systolic pressure is 41 mmHg. 13. Dilated inferior vena cava with >50% collapse upon inspiration consistent with elevated right atrial pressure, 10 mmHg. - CPT - Cornet valve. (4) Chronic kidney disease: Qualifiers: Chronic kidney disease stage: unspecified stage Qualified Code(s): N18.9 - Chronic kidney disease, unspecified Code(s): N18.9 - Chronic kidney disease, unspecified Status: Chronic Assessment and Plan: - creatinine 1.69, BUN 51, and GFR 29, previously 1.45 and GFR 35 on 11/24/2024. - Hold Lasix. - trend renal function - trend electrolytes, correct as needed (5) Diabetes: Qualifiers: Diabetes mellitus type: type 2 Diabetes mellitus detention insulin use: without continuous churn buttermaker use Diabetes mellitus complication status: without complication Qualified Code(s): E11.9 - Type 2 diabetes mellitus without complications Code(s): E11.9 - Type 2 diabetes mellitus without complications Status: Chronic Assessment and Plan: - hypoglycemia protocol - POC blood glucose ACHS - home medication: dapagliflozin - correct regimen ordered - high dose TIDWM, based off BMI - A1C 5.9% on 11/21/24 (6) Grade I diastolic dysfunction: Code(s): I51.89 - Other ill-defined heart diseases Status: Acute Assessment and Plan: - Echocardiogram 12/06/24 showed: Summary 1. Technically suboptimal study due to poor sonographic images. 2. Definity contrast administered improved wall motion interpretation. 3. Left ventricular chamber dimension is normal. 4. Left ventricular systolic function is hyperdynamic, estimated at >70%. 5. There is mild concentric increased left ventricular wall thickness. 6. The left ventricular diastolic function is grade I diastolic dysfunction. 7. E/e' 14 is mildly elevated. 8. The aortic valve is not well visualized. Cannot determine number of aortic valve leaflets. 9. There is moderate aortic valve sclerosis. 10. There is moderate aortic valve stenosis with a peak velocity of 317.77 cm/s, mean gradient of 24 mmHg, and aortic valve area of 1.49 cm2. 11. The mitral valve has mildly calcified annulus. 12. Mild pulmonary hypertension, estimated pulmonary arterial systolic pressure is 41 mmHg. 13. Dilated inferior vena cava with >50% collapse upon inspiration consistent with elevated right atrial pressure, 10 mmHg. * Amlodipine 5 mg PO daily. Furosemide 20 mg PO daily on hold due to elevated creatinine of 1.69. . (7) HTN (hypertension): Qualifiers: Hypertension type: unspecified Qualified Code(s): I10 - Essential (primary) hypertension Code(s): I10 - Essential (primary) hypertension Status: Chronic Assessment and Plan: - chronic, currently 120/48. - continue home medications: Amlodipine 5 mg daily, Imdur 30 mg daily - monitor (8) NICOLA on CPAP: Code(s): G47.33 - Obstructive sleep apnea (adult) (pediatric); Z99.89 - Dependence on other enabling machines and devices Status: Acute Assessment and Plan: - does not tolerate CPAP (9) Anxiety: Code(s): F41.9 - Anxiety disorder, unspecified Status: Acute Assessment and Plan: * Sister on 12/05/24. * Alprazolam 0.25 mg PO TID PRN. (10) Tongue pain: Code(s): K14.6 - Glossodynia Status: Acute Assessment and Plan: * magic mouth wash * improving. Plan MRSA negative, Vancomycin d/c'd. Diet: Heart healthy GI Prophylaxis: Not currently indicated DVT Prophylaxis: SCDs Lines: Peripheral Code Status: Full code Subjective Date/time seen: 12/08/24 10:23 Interval history: Patient reports that she feels that her breathing is improving and that she feels the CPT machine is helpful. Patient denies chest pain, palpitations, shortness of breath at rest, headache, dizziness, nausea, or vomiting. Patient reports pain in right shoulder is a 7 , constant, and sore. Review of Systems Review of Systems: All systems reviewed & are unremarkable except as noted in HPI and below Exam Const: General: no acute distress and uncomfortable Resp: Effort & Inspection: normal respiratory effort Auscultation: diminished lung sounds Cardio: Rate: regular rate Rhythm: regular rhythm GI: GI Palp: Yes Soft to palpation Auscultation: normal bowel sounds Skin: General skin exam: no rashes or lesions noted Neuro: Speech: normal speech Extrem: General: no pedal edema Psych: Mental Status: mental status grossly normal Affect: normal affect Objective Data Vital Signs Vital Signs: Vital Signs - 24 hr 12/07/24 14:00 12/07/24 14:52 12/07/24 15:01 Temperature 98.2 F Pulse Rate 68 67 72 Respiratory Rate 20 18 18 Blood Pressure 121/51 L Pulse Oximetry 97 Oxygen Delivery Oxygen Flow Rate 12/07/24 20:00 12/07/24 21:17 12/07/24 21:19 Temperature 98.8 F Pulse Rate 79 67 Respiratory Rate 20 18 Blood Pressure 125/45 L Pulse Oximetry 94 96 Oxygen Delivery Nasal Cannula Oxygen Flow Rate 4 12/07/24 21:20 12/08/24 05:38 12/08/24 08:33 Temperature 98.2 F Pulse Rate 58 L Respiratory Rate 14 Blood Pressure 140/60 Pulse Oximetry 94 97 91 Oxygen Delivery Nasal Cannula Room Air Oxygen Flow Rate 4 12/08/24 08:33 12/08/24 08:51 Temperature Pulse Rate 70 71 Respiratory Rate 22 H 22 H Blood Pressure Pulse Oximetry Oxygen Delivery Oxygen Flow Rate Intake/Output Intake/Output: Intake & Output 12/05/24 12/06/24 12/07/24 12/08/24 23:59 23:59 23:59 23:59 Intake Total 1320 2720 2474 270 Output Total 400 1150 250 Balance 920 1570 2224 270 Meds/Results Medications: Active Medications Generic Name Dose Route Start Last Admin Trade Name Freq PRN Reason Stop Dose Admin Acetaminophen 650 mg 12/04/24 19:25 12/07/24 20:41 Acetaminophen 325 Mg Tablet PO 650 mg Q4H PRN Administration Mild Pain (1-3) or Fever Albuterol/Ipratropium 3 ml 12/04/24 20:00 12/08/24 08:33 Ipratropium 0.5 Mg/Albuterol Sulfate 2.5 Mg Ampul.Neb 3 Ml INHALATION 3 ml Q6HRT VERONICA Administration Alprazolam 0.25 mg 12/05/24 14:52 12/07/24 20:41 Alprazolam (*Crx) 0.25 Mg Tablet PO 0.25 mg TID PRN Administration Anxiety Amlodipine Besylate 5 mg 12/05/24 09:00 12/08/24 08:25 Amlodipine Besylate 5 Mg Tablet PO 5 mg DAILY VERONICA Administration Benzonatate 100 mg 12/04/24 19:25 12/06/24 21:11 Benzonatate 100 Mg Capsule PO 100 mg TID PRN Administration Cough Lidocaine HCl 30 ml/ Al Hydrox 0 ml 12/06/24 13:00 12/08/24 09:25 /Mg Hydrox/Simethicone 30 ml/ PO 5 ml Diphenhydramine HCl 75 mg Q4HWA VERONICA Administration Dextrose 12.5 gm 12/04/24 22:34 Dextrose 50% 25 Gm/50 Ml Syringe IV PUSH PRN PRN Hypoglycemia Protocol Doxycycline Hyclate 100 mg 12/05/24 09:00 12/08/24 08:25 Doxycycline Hyclate 100 Mg Tablet PO 100 mg Q12HR VERONICA Administration Empagliflozin 25 mg 12/05/24 09:00 12/08/24 08:25 Empagliflozin 25 Mg Tablet BY MOUTH 25 mg DAILY VERONICA Administration Fluticasone/Umeclidinium/Vilanterol 1 puff 12/05/24 08:00 12/08/24 08:33 Fluticasone/Umeclidin/Vilanter 100-62.5-25 Mcg Ellipta INHALATION 1 puff DAILYRT VERONICA Administration Glucagon 1 mg 12/04/24 22:34 Glucagon For Inj 1 Mg Vial IM PRN PRN Hypoglycemia Protocol Glucose 15 gm 12/04/24 22:34 Glucose Oral Gel 15 Gm Of Glucse In 37.5 Gm Tube PO PRN PRN Hypoglycemia Protocol Guaifenesin 600 mg 12/04/24 21:00 12/08/24 08:25 Guaifenesin 12 Hr 600 Mg Tabcr PO 600 mg Q12HR VERONICA Administration Cefepime HCl 2 gm in 50 mls @ 100 mls/hr 12/05/24 09:00 12/08/24 08:23 Maxipime 2 Gm/Ns 50 Ml IVPB 100 mls/hr Q12HR VERONICA Administration Dextrose 1,000 mls @ 100 mls/hr 12/04/24 22:34 Dextrose 5% 1,000 Ml IVPB PRN PRN Hypoglycemia Protocol Insulin Aspart 4 - 8 units 12/05/24 08:00 12/08/24 08:26 Insulin Aspart (*Bkc) 100 Units/Ml SUB-Q Not Given TIDWM [facility] Protocol Isosorbide Mononitrate 30 mg 12/05/24 09:00 12/08/24 08:26 Isosorbide Mononitrate 30 Mg Tab.Er.24h PO 30 mg DAILY VERONICA Administration Levothyroxine Sodium 75 mcg 12/05/24 06:30 12/08/24 05:53 Levothyroxine Sodium 75 Mcg Tablet PO 75 mcg DAILY@0630 [facility] Administration Magnesium Oxide 400 mg 12/05/24 09:00 12/08/24 08:25 Magnesium Oxide 400 Mg Tablet PO 400 mg BID VERONICA Administration Melatonin 5 mg 12/04/24 22:00 12/07/24 20:36 Melatonin 5 Mg Tablet PO 5 mg HS [facility] Administration Methylprednisolone Sodium Succinate 40 mg 12/07/24 00:00 12/08/24 05:53 Methylprednisolone Sod Succ 40 Mg Vial IV PUSH 40 mg Q6HR [facility] Administration Minoxidil 2.5 mg 12/05/24 09:00 12/08/24 08:26 Minoxidil 2.5 Mg Tablet PO 2.5 mg DAILY VERONICA Administration Miscellaneous Information 0 each 12/04/24 00:01 Vortioxetine Nonform Can Pt Bring From Home? XX 01/03/25 00:00 CLARIFY [facility] Non-Formulary Medication 20 mg 12/05/24 09:00 Vortioxetine [Trintellix] PO 01/04/25 08:59 DAILY [facility] Ondansetron HCl 4 mg 12/05/24 00:34 12/06/24 09:06 Ondansetron Inj 4 Mg/2 Ml Vial IV PUSH 4 mg Q6H PRN Administration Nausea And Vomiting Oxybutynin Chloride 10 mg 12/05/24 21:00 12/07/24 20:36 Oxybutynin Chloride Xl 5 Mg Tab.Er.24 PO 10 mg HS [facility] Administration Pregabalin 200 mg 12/05/24 09:00 12/08/24 08:25 Pregabalin (*Crx) 50 Mg Capsule PO 200 mg BID [facility] Administration Rosuvastatin Calcium 10 mg 12/05/24 21:00 12/07/24 20:36 Rosuvastatin 10 Mg Tablet PO 10 mg HS VERONICA Administration Radiology Results: ITS Impressions Chest X-Ray 12/04/24 12:57 Impression: Clear lungs. Chest CTA 12/04/24 17:42 IMPRESSION: No pulmonary embolus. No dissection or aneurysmal dilatation. Right basilar infiltrate. Mild pulmonary congestion. Venous Doppler Study 12/05/24 09:30 IMPRESSION: 1. No deep venous thrombosis. Labs Labs: Laboratory Results - last 24 hr 12/07/24 12/07/24 12/07/24 11:16 16:22 20:16 WBC RBC Hgb Hct MCV MCH MCHC RDW Plt Count MPV Immature Gran % (Auto) Neut % (Auto) Lymph % (Auto) [place] % (Auto) Eos % (Auto) Baso % (Auto) Lymph # (Auto) [place] # (Auto) Eos # (Auto) Baso # (Auto) Abs Immat Gran (auto) Absolute Neuts (auto) Absolute Nucleated RBC Nucleated RBC % Platelet Estimate Anisocytosis Ovalocytes Schistocytes Sodium Potassium Chloride Carbon Dioxide Anion Gap BUN Creatinine Estim Creat Clear Calc Estimated GFR Glucose POC Capillary Glucose 235 H 236 H 271 H Calcium Total Bilirubin AST ALT Alkaline Phosphatase Total Protein Albumin 12/08/24 12/08/24 06:40 07:52 WBC 9.1 RBC 4.47 Hgb 12.4 Hct 41.2 MCV 92.2 MCH 27.7 MCHC 30.1 L RDW 14.5 Plt Count 190 MPV 11.7 H Immature Gran % (Auto) 2.5 H Neut % (Auto) 87.6 H Lymph % (Auto) 4.2 L [place] % (Auto) 5.4 Eos % (Auto) 0.1 Baso % (Auto) 0.2 Lymph # (Auto) 0.38 L [place] # (Auto) 0.5 Eos # (Auto) 0.0 Baso # (Auto) 0.0 Abs Immat Gran (auto) 0.23 H Absolute Neuts (auto) 8.0 H Absolute Nucleated RBC 0.000 Nucleated RBC % 0.0 Platelet Estimate Adequate Anisocytosis 1+ Ovalocytes 1+ Schistocytes None seen Sodium 141 Potassium 5.4 H Chloride 104 Carbon Dioxide 32 H Anion Gap 5 BUN 51 H Creatinine 1.69 H Estim Creat Clear Calc 28 Estimated GFR 29 L Glucose 174 H POC Capillary Glucose 150 H Calcium 9.0 Total Bilirubin 0.5 AST 18 ALT 14 Alkaline Phosphatase 58 Total Protein 7.0 Albumin 3.9 Quality VTE Prophylaxis VTE prophylaxis: mechanical ordered
[2024-12-08 11:58] LABS: Glucose Point of Care 217 mg/dl (65-105)
[2024-12-08] MEDS: INSULIN ASPART (*BKC) 100 UNITS/ML SUB-Q (12:56)
[2024-12-08 16:55] LABS: Glucose Point of Care 195 mg/dl (65-105)
[2024-12-08] MEDS: ACETAMINOPHEN 325 MG TABLET 650 MG PO (18:33)
[2024-12-08] MEDS: BENZONATATE 100 MG CAPSULE PO (18:34)
[2024-12-08 18:48] LABS: Mycoplasma IgM Antibody Titer 278 U/mL
--- NOTE | 2024-12-08 18:51 | PC.NURSE ---
On 12/08/24, the CONCRETE PRODUCTS MACHINE OPERATOR, Feli provided care and completed [employer] documentation on this patient. I have reviewed the CONCRETE PRODUCTS MACHINE OPERATOR's documentation and agree with the findings.
[2024-12-08 20:14] LABS: Pneumococcal Antigen Urine NOT DETECTED
[2024-12-08] MEDS: oxyBUTYnin CHLORIDE XL 5 MG TAB.ER.24 10 MG PO (21:27)
[2024-12-08] MEDS: ROSUVASTATIN 10 MG TABLET PO (21:27)
[2024-12-08 21:35] LABS: Glucose Point of Care 230 mg/dl (65-105)
[2024-12-08] MEDS: ALPRAZolam (*CRX) 0.25 MG TABLET PO (21:50)
[2024-12-09] VITALS (7 sets, daily range): BP systolic 144; BP diastolic 56; PULSE 57–77; RESP 16–20; TEMP 36.2; O2SAT 91–95
[2024-12-09] MEDS: IPRATROPIUM 0.5 MG/ALBUTEROL SULFATE 2.5 MG AMPUL.NEB 3 ML INHALATION ×3 (02:11→14:05)
[2024-12-09] MEDS: LIDOCAINE 2% VISC SOLN 30 ML, ALUMINUM/MAGNESIUM/SIMETH SUSP 30 ML, diphenhydrAMINE HCl... PO ×3 (05:46→13:16)
[2024-12-09] MEDS: LEVOTHYROXINE SODIUM 75 MCG TABLET PO (05:46)
[2024-12-09] MEDS: methylPREDNISolone SOD SUCC 40 MG VIAL IV PUSH (05:46)
[2024-12-09 07:18] LABS: Basophils Percent Auto 0.5 % (0.2-1.2); Hematocrit 41.2 % (37.0-47.0); Hemoglobin 12.1 g/dL (12.0-15.0); Immature Granulocyte Absolute 0.23 K/mm3 (0.00-0.031); Immature Granulocyte Percent A 2.8 % (0-0.5); Lymphocytes Absolute Auto 0.37 K/mm3 (0.9-3.2); Lymphocytes Percent Auto 4.5 % (18.3-44.2); Mean Corpuscular HGB Conc 29.4 g/dl (32-36); Mean Corpuscular Hemoglobin 27.3 pg (26-34); Mean Corpuscular Volume 92.8 fl (80-100); Mean Platelet Volume 11.1 fl (7.4-10.4); Monocytes Absolute Auto 0.6 K/mm3 (0.1-0.6); Neutrophils Percent Auto 85.2 % (45.5-73.1); Platelet Count Result 196 k/mm3 (150-375); Red Blood Count 4.44 M/mm3 (4.2-5.4); Red Cell Distribution Width 14.3 % (11.5-14.5); White Blood Count 8.2 K/mm3 (4.5-10.0)
[2024-12-09 07:48] LABS: Alanine Aminotransferase 16 U/L (6-35); Albumin Level 3.6 g/dL (3.5-5.1); Alkaline Phosphatase 40 U/L (38-126); Anion Gap 8 mmol/L (4-12); Aspartate Amino Transferase 25 U/L (14-36); Bilirubin,Total 0.8 mg/dL (0.2-1.3); Blood Urea Nitrogen 49 mg/dL (7-17); Calcium 8.7 mg/dL (8.4-10.2); Carbon Dioxide 26 mmol/L (22-30); Chloride 105 mmol/L (98-107); Estimated CRCL calculation 33 ml/min; Estimated Glomerular Filt Rate 36; Glucose 175 mg/dL (65-110); Potassium 5.4 mmol/L (3.4-5.0); Sodium 139 mmol/L (137-145)
[2024-12-09 08:14] LABS: Glucose Point of Care 171 mg/dl (65-105)
[2024-12-09] MEDS: guaiFENesin 12 HR 600 MG TABCR PO (08:25)
[2024-12-09] MEDS: MAGNESIUM OXIDE 400 MG TABLET PO (08:25)
[2024-12-09] MEDS: minoxidiL 2.5 MG TABLET PO (08:25)
[2024-12-09] MEDS: DOXYCYCLINE HYCLATE 100 MG TABLET PO (08:25)
[2024-12-09] MEDS: EMPAGLIFLOZIN 25 MG TABLET BY MOUTH (08:25)
[2024-12-09] MEDS: ISOSORBIDE MONONITRATE 30 MG TAB.ER.24H PO (08:25)
[2024-12-09] MEDS: amLODIPine BESYLATE 5 MG TABLET PO (08:25)
[2024-12-09] MEDS: PREGABALIN (*CRX) 50 MG CAPSULE 200 MG PO (08:25)
[2024-12-09] MEDS: CEFEPIME 2 GM/NS 50 ML 2 GM/50 ML BAG IVPB (08:26)
[2024-12-09] MEDS: FLUTICASONE/UMECLIDIN/VILANTER 100-62.5-25 MCG ELLIPTA 1 PUFF INHALATION (09:49)
--- NOTE | 2024-12-09 11:12 | PM.IMPN ---
Subjective Date/time seen: 12/09/24 11:12 Review of Systems Review of Systems: All systems reviewed & are unremarkable except as noted in HPI and below Objective Data Vital Signs Vital Signs: Vital Signs - 24 hr 12/08/24 13:58 12/08/24 14:05 12/08/24 15:18 Temperature 97.2 F L Pulse Rate 67 68 71 Respiratory Rate 18 18 20 Blood Pressure 120/48 L Pulse Oximetry 95 Oxygen Delivery Oxygen Flow Rate Fraction of Inspired Oxygen 12/08/24 20:00 12/08/24 20:36 12/08/24 21:31 Temperature 98.0 F Pulse Rate 64 Respiratory Rate 18 Blood Pressure 150/55 H Pulse Oximetry 93 94 93 Oxygen Delivery Nasal Cannula Nasal Cannula Oxygen Flow Rate 2 2 Fraction of Inspired Oxygen 12/08/24 21:31 12/08/24 21:37 12/09/24 02:12 Temperature Pulse Rate 70 67 57 L Respiratory Rate 22 H 22 H 17 Blood Pressure Pulse Oximetry Oxygen Delivery Oxygen Flow Rate Fraction of Inspired Oxygen 12/09/24 02:18 12/09/24 05:09 12/09/24 09:39 Temperature 97.1 F L Pulse Rate 60 62 Respiratory Rate 17 18 Blood Pressure 144/56 H Pulse Oximetry 95 91 Oxygen Delivery Room Air Oxygen Flow Rate Fraction of Inspired Oxygen 21 12/09/24 09:39 12/09/24 09:48 Temperature Pulse Rate 74 70 Respiratory Rate 16 16 Blood Pressure Pulse Oximetry Oxygen Delivery Oxygen Flow Rate Fraction of Inspired Oxygen Intake/Output Intake/Output: Intake & Output 12/06/24 12/07/24 12/08/24 12/09/24 23:59 23:59 23:59 23:59 Intake Total 2720 2474 1490 1340 Output Total 1882 702 1757 380 Balance 1570 2224 -210 960 Meds/Results Medications: Active Medications Generic Name Dose Route Start Last Admin Trade Name Freq PRN Reason Stop Dose Admin Acetaminophen 650 mg 12/04/24 19:25 12/08/24 18:33 Acetaminophen 325 Mg Tablet PO 650 mg Q4H PRN Administration Mild Pain (1-3) or Fever Albuterol/Ipratropium 3 ml 12/04/24 20:00 12/09/24 09:39 Ipratropium 0.5 Mg/Albuterol Sulfate 2.5 Mg Ampul.Neb 3 Ml INHALATION 3 ml Q6HRT LATOYA Administration Alprazolam 0.25 mg 12/05/24 14:52 12/08/24 21:50 Alprazolam (*Crx) 0.25 Mg Tablet PO 0.25 mg TID PRN Administration Anxiety Amlodipine Besylate 5 mg 12/05/24 09:00 12/09/24 08:25 Amlodipine Besylate 5 Mg Tablet PO 5 mg DAILY LATOYA Administration Benzonatate 100 mg 12/04/24 19:25 12/08/24 18:34 Benzonatate 100 Mg Capsule PO 100 mg TID PRN Administration Cough Lidocaine HCl 30 ml/ Al Hydrox 0 ml 12/06/24 13:00 12/09/24 08:28 /Mg Hydrox/Simethicone 30 ml/ PO 5 ml Diphenhydramine HCl 75 mg Q4HWA LATOYA Administration Dextrose 12.5 gm 12/04/24 22:34 Dextrose 50% 25 Gm/50 Ml Syringe IV PUSH PRN PRN Hypoglycemia Protocol Doxycycline Hyclate 100 mg 12/05/24 09:00 12/09/24 08:25 Doxycycline Hyclate 100 Mg Tablet PO 100 mg Q12HR LATOYA Administration Empagliflozin 25 mg 12/05/24 09:00 12/09/24 08:25 Empagliflozin 25 Mg Tablet BY MOUTH 25 mg DAILY LATOYA Administration Fluticasone/Umeclidinium/Vilanterol 1 puff 12/05/24 08:00 12/09/24 09:49 Fluticasone/Umeclidin/Vilanter 100-62.5-25 Mcg Ellipta INHALATION 1 puff DAILYRT LATOYA Administration Glucagon 1 mg 12/04/24 22:34 Glucagon For Inj 1 Mg Vial IM PRN PRN Hypoglycemia Protocol Glucose 15 gm 12/04/24 22:34 Glucose Oral Gel 15 Gm Of Glucse In 37.5 Gm Tube PO PRN PRN Hypoglycemia Protocol Guaifenesin 600 mg 12/04/24 21:00 12/09/24 08:25 Guaifenesin 12 Hr 600 Mg Tabcr PO 600 mg Q12HR LATOYA Administration Cefepime HCl 2 gm in 50 mls @ 100 mls/hr 12/05/24 09:00 12/09/24 08:26 Maxipime 2 Gm/Ns 50 Ml IVPB 100 mls/hr Q12HR LATOYA Administration Dextrose 1,000 mls @ 100 mls/hr 12/04/24 22:34 Dextrose 5% 1,000 Ml IVPB PRN PRN Hypoglycemia Protocol Insulin Aspart 4 - 8 units 12/05/24 08:00 12/09/24 08:28 Insulin Aspart (*Bkc) 100 Units/Ml SUB-Q Not Given TIDWM [facility] Protocol Isosorbide Mononitrate 30 mg 12/05/24 09:00 12/09/24 08:25 Isosorbide Mononitrate 30 Mg Tab.Er.24h PO 30 mg DAILY LATOYA Administration Levothyroxine Sodium 75 mcg 12/05/24 06:30 12/09/24 05:46 Levothyroxine Sodium 75 Mcg Tablet PO 75 mcg DAILY@0630 [facility] Administration Magnesium Oxide 400 mg 12/05/24 09:00 12/09/24 08:25 Magnesium Oxide 400 Mg Tablet PO 400 mg BID LATOYA Administration Melatonin 5 mg 12/04/24 22:00 12/08/24 22:01 Melatonin 5 Mg Tablet PO Not Given HS [facility] Methylprednisolone Sodium Succinate 40 mg 12/08/24 18:00 12/09/24 05:46 Methylprednisolone Sod Succ 40 Mg Vial IV PUSH 40 mg Q12H [facility] Administration Minoxidil 2.5 mg 12/05/24 09:00 12/09/24 08:25 Minoxidil 2.5 Mg Tablet PO 2.5 mg DAILY LATOYA Administration Miscellaneous Information 0 each 12/04/24 00:01 Vortioxetine Nonform Can Pt Bring From Home? XX 01/03/25 00:00 CLARIFY [facility] Non-Formulary Medication 20 mg 12/05/24 09:00 Vortioxetine [Trintellix] PO 01/04/25 08:59 DAILY [facility] Ondansetron HCl 4 mg 12/05/24 00:34 12/06/24 09:06 Ondansetron Inj 4 Mg/2 Ml Vial IV PUSH 4 mg Q6H PRN Administration Nausea And Vomiting Oxybutynin Chloride 10 mg 12/05/24 21:00 12/08/24 21:27 Oxybutynin Chloride Xl 5 Mg Tab.Er.24 PO 10 mg HS [facility] Administration Pregabalin 200 mg 12/05/24 09:00 12/09/24 08:25 Pregabalin (*Crx) 50 Mg Capsule PO 200 mg BID [facility] Administration Rosuvastatin Calcium 10 mg 12/05/24 21:00 12/08/24 21:27 Rosuvastatin 10 Mg Tablet PO 10 mg HS LATOYA Administration Radiology Results: ITS Impressions Chest X-Ray 12/04/24 12:57 Impression: Clear lungs. Chest CTA 12/04/24 17:42 IMPRESSION: No pulmonary embolus. No dissection or aneurysmal dilatation. Right basilar infiltrate. Mild pulmonary congestion. Venous Doppler Study 12/05/24 09:30 IMPRESSION: 1. No deep venous thrombosis. Labs Labs: Laboratory Results - last 24 hr 12/04/24 12/05/24 12/08/24 19:27 05:45 11:43 WBC RBC Hgb Hct MCV MCH MCHC RDW Plt Count MPV Immature Gran % (Auto) Neut % (Auto) Lymph % (Auto) [place] % (Auto) Eos % (Auto) Baso % (Auto) Lymph # (Auto) [place] # (Auto) Eos # (Auto) Baso # (Auto) Abs Immat Gran (auto) Absolute Neuts (auto) Absolute Nucleated RBC Nucleated RBC % Sodium Potassium Chloride Carbon Dioxide Anion Gap BUN Creatinine Estim Creat Clear Calc Estimated GFR Glucose POC Capillary Glucose 217 H Calcium Total Bilirubin AST ALT Alkaline Phosphatase Total Protein Albumin Mycoplasma pneumon IgM 278 Urine Pneumococcal Ag Not detected 12/08/24 12/08/24 12/09/24 16:39 20:41 06:42 WBC 8.2 RBC 4.44 Hgb 12.1 Hct 41.2 MCV 92.8 MCH 27.3 MCHC 29.4 L RDW 14.3 Plt Count 196 MPV 11.1 H Immature Gran % (Auto) 2.8 H Neut % (Auto) 85.2 H Lymph % (Auto) 4.5 L [place] % (Auto) 7.0 Eos % (Auto) 0.0 Baso % (Auto) 0.5 Lymph # (Auto) 0.37 L [place] # (Auto) 0.6 Eos # (Auto) 0.0 Baso # (Auto) 0.0 Abs Immat Gran (auto) 0.23 H Absolute Neuts (auto) 7.0 H Absolute Nucleated RBC 0.000 Nucleated RBC % 0.0 Sodium 139 Potassium 5.4 H Chloride 105 Carbon Dioxide 26 Anion Gap 8 BUN 49 H Creatinine 1.42 H Estim Creat Clear Calc 33 Estimated GFR 36 L Glucose 175 H POC Capillary Glucose 195 H 230 H Calcium 8.7 Total Bilirubin 0.8 AST 25 ALT 16 Alkaline Phosphatase 40 Total Protein 7.0 Albumin 3.6 Mycoplasma pneumon IgM Urine Pneumococcal Ag 12/09/24 08:04 WBC RBC Hgb Hct MCV MCH MCHC RDW Plt Count MPV Immature Gran % (Auto) Neut % (Auto) Lymph % (Auto) [place] % (Auto) Eos % (Auto) Baso % (Auto) Lymph # (Auto) [place] # (Auto) Eos # (Auto) Baso # (Auto) Abs Immat Gran (auto) Absolute Neuts (auto) Absolute Nucleated RBC Nucleated RBC % Sodium Potassium Chloride Carbon Dioxide Anion Gap BUN Creatinine Estim Creat Clear Calc Estimated GFR Glucose POC Capillary Glucose 171 H Calcium Total Bilirubin AST ALT Alkaline Phosphatase Total Protein Albumin Mycoplasma pneumon IgM Urine Pneumococcal Ag
[2024-12-09 12:22] LABS: Glucose Point of Care 298 mg/dl (65-105)
[2024-12-09] MEDS: INSULIN ASPART (*BKC) 100 UNITS/ML SUB-Q (13:16)
--- NOTE | 2024-12-09 14:33 | P.DS_ITS ---
DS: Admitting Diagnosis Discharge Date 12/09/24 Admitting Diagnosis Shortness of breath. DS: Discharge Diagnosis Discharge Diagnosis (1) Acute and chronic respiratory failure: Qualifiers: Respiratory failure complication: hypoxia Qualified Code(s): J96.21 - Acute and chronic respiratory failure with hypoxia Code(s): J96.20 - Acute and chronic respiratory failure, unspecified whether with hypoxia or hypercapnia Status: Acute (2) Community acquired pneumonia: Qualifiers: Laterality: unspecified laterality Qualified Code(s): J18.9 - Pneumonia, unspecified organism Code(s): J18.9 - Pneumonia, unspecified organism Status: Acute (3) COPD exacerbation: Code(s): J44.1 - Chronic obstructive pulmonary disease with (acute) exacerbation Status: Acute (4) Chronic kidney disease: Qualifiers: Chronic kidney disease stage: unspecified stage Qualified Code(s): N18.9 - Chronic kidney disease, unspecified Code(s): N18.9 - Chronic kidney disease, unspecified Status: Chronic (5) Grade I diastolic dysfunction: Code(s): I51.89 - Other ill-defined heart diseases Status: Acute (6) HTN (hypertension): Qualifiers: Hypertension type: unspecified Qualified Code(s): I10 - Essential (primary) hypertension Code(s): I10 - Essential (primary) hypertension Status: Chronic (7) Anxiety: Code(s): F41.9 - Anxiety disorder, unspecified Status: Acute (8) Tongue pain: Code(s): K14.6 - Glossodynia Status: Acute DS: Summary Hospital Course Hospital Course: * Initial VS at presentation: 98.6? F, HR 55, RR 18, 140/68, and 95% on 4L NC. ED workup showed: No leukocytosis, no anemia, normal coags, D-dimer 1.17, ABG showed a HCO3 of 28.3, otherwise unremarkable, no significant electrolyte derangements, creatinine 1.47 and GFR 34 (similar to previous on 11/24/2024), initial troponins negative x2, BNP 158. UA showed 1+ protein and trace glucose, otherwise unremarkable. Viral PCR negative. CXR showed clear lungs. Chest CTA showed no PE, no dissection or aneurysm dilation, right basilar infiltrate, and mild pulmonary congestion. Initial EKG showed sinus rhythm with first-degree AV block, rate 60, marked left axis deviation, intraventricular conduction delay, LVH and ST-T change, anterior IN of indeterminate age (when compared to previous, no significant changes). * Echocardiogram showed: Summary 1. Technically suboptimal study due to poor sonographic images. 2. Definity contrast administered improved wall motion interpretation. 3. Left ventricular chamber dimension is normal. 4. Left ventricular systolic function is hyperdynamic, estimated at >70%. 5. There is mild concentric increased left ventricular wall thickness. 6. The left ventricular diastolic function is grade I diastolic dysfunction. 7. E/e' 14 is mildly elevated. 8. The aortic valve is not well visualized. Cannot determine number of aortic valve leaflets. 9. There is moderate aortic valve sclerosis. 10. There is moderate aortic valve stenosis with a peak velocity of 317.77 cm/s, mean gradient of 24 mmHg, and aortic valve area of 1.49 cm2. 11. The mitral valve has mildly calcified annulus. 12. Mild pulmonary hypertension, estimated pulmonary arterial systolic pressure is 41 mmHg. 13. Dilated inferior vena cava with >50% collapse upon inspiration consistent with elevated right atrial pressure, 10 mmHg. * Patient received IV steroids, IV Cefepime, and Doxycycline. Duonebs, CPT, and cornet valve with improvement. Patient transitioned to oral antibiotics and steroids for discharge. Patient was followed by motorcycle police officer during visit and follows outpatient with motorcycle police officer Dr. Banks. Creatinine improved 1.42, baseline. * Venous dopplers negative. * Blood cultures no growth. Status at Discharge Functional status at discharge: independent ambulation Overall status at discharge: patient is progressing back to baseline Time Spent with Patient Time attestation: Total time spent providing and/or coordinating discharge services: Time spent: Greater than 30 minutes Exam Const: General: comfortable and no acute distress Eyes: Sclera: sclerae normal Resp: Auscultation: wheezes expiratory wheezes and diminished lung sounds Cardio: Rate: regular rate Rhythm: regular rhythm GI: GI Palp: Yes Soft to palpation Auscultation: normal bowel sounds Skin: General skin exam: no rashes or lesions noted Extrem: General: no pedal edema Psych: Mental Status: mental status grossly normal Affect: normal affect DS: Data Data Completed and Pending Labs on day of discharge: Labs from last 24 hours 12/09/24 12/09/24 12/09/24 12:13 08:04 06:42 WBC 8.2 RBC 4.44 Hgb 12.1 Hct 41.2 MCV 92.8 MCH 27.3 MCHC 29.4 L RDW 14.3 Plt Count 196 MPV 11.1 H Immature Gran % (Auto) 2.8 H Neut % (Auto) 85.2 H Lymph % (Auto) 4.5 L [place] % (Auto) 7.0 Eos % (Auto) 0.0 Baso % (Auto) 0.5 Lymph # (Auto) 0.37 L [place] # (Auto) 0.6 Eos # (Auto) 0.0 Baso # (Auto) 0.0 Abs Immat Gran (auto) 0.23 H Absolute Neuts (auto) 7.0 H Absolute Nucleated RBC 0.000 Nucleated RBC % 0.0 Sodium 139 Potassium 5.4 H Chloride 105 Carbon Dioxide 26 Anion Gap 8 BUN 49 H Creatinine 1.42 H Estim Creat Clear Calc 33 Estimated GFR 36 L Glucose 175 H POC Capillary Glucose 298 H 171 H Calcium 8.7 Total Bilirubin 0.8 AST 25 ALT 16 Alkaline Phosphatase 40 Total Protein 7.0 Albumin 3.6 Mycoplasma pneumon IgM Urine Pneumococcal Ag 12/08/24 12/08/24 12/05/24 20:41 16:39 05:45 WBC RBC Hgb Hct MCV MCH MCHC RDW Plt Count MPV Immature Gran % (Auto) Neut % (Auto) Lymph % (Auto) [place] % (Auto) Eos % (Auto) Baso % (Auto) Lymph # (Auto) [place] # (Auto) Eos # (Auto) Baso # (Auto) Abs Immat Gran (auto) Absolute Neuts (auto) Absolute Nucleated RBC Nucleated RBC % Sodium Potassium Chloride Carbon Dioxide Anion Gap BUN Creatinine Estim Creat Clear Calc Estimated GFR Glucose POC Capillary Glucose 230 H 195 H Calcium Total Bilirubin AST ALT Alkaline Phosphatase Total Protein Albumin Mycoplasma pneumon IgM 278 Urine Pneumococcal Ag 12/04/24 19:27 WBC RBC Hgb Hct MCV MCH MCHC RDW Plt Count MPV Immature Gran % (Auto) Neut % (Auto) Lymph % (Auto) [place] % (Auto) Eos % (Auto) Baso % (Auto) Lymph # (Auto) [place] # (Auto) Eos # (Auto) Baso # (Auto) Abs Immat Gran (auto) Absolute Neuts (auto) Absolute Nucleated RBC Nucleated RBC % Sodium Potassium Chloride Carbon Dioxide Anion Gap BUN Creatinine Estim Creat Clear Calc Estimated GFR Glucose POC Capillary Glucose Calcium Total Bilirubin AST ALT Alkaline Phosphatase Total Protein Albumin Mycoplasma pneumon IgM Urine Pneumococcal Ag Not detected Preliminary micro results at discharge 12/04/24 14:21 Blood Culture - Preliminary Blood 12/04/24 14:21 Blood Culture - Preliminary Blood Discharge Plan Discharge Attending physician on discharge: Herman Tenorio Consulting providers: Gemma Jennings; Mani King Discharging Clinician: Valery Villalba Anticipated Discharge Date/Time: 12/09/24 15:30 Patient Disposition: Home, Self-Care Activity: may shower and as tolerated Diet: heart healthy Discharge Instructions: * Keep PCP appointment tomorrow. * Have BMP lab checked in 3 days. * Take all doses of antibiotics. * Complete taper of steroids. * Call provider if worsening shortness of breath, fever >101, or breathing not improved with inhalers. * Schedule follow up appointment with Dr. Godoy. * Python Developer office will work on ordering a vibratory vest for home. Thank you for entrusting [facility] with your healthcare! Patient Instructions: Antibiotic Form, Heart Failure (DC), Chronic Kidney Disease (DC), Heart Healthy Diet (DC), Using Oxygen at Home (DC), COPD (Chronic Obstructive Pulmonary Disease) (DC), Community Acquired Pneumonia (DC) Patient Language: Faroese Stand Alone Forms: General Discharge Information Follow-up/Referrals: Jn Velásquez MD [Primary Care Provider] - Keep Reg. Scheduled Appt. Wilber Godoy MD [Physician] - Call for Appointment Discharge Medications: New cefdinir 300 mg capsule 300 mg PO Q12H Qty: 9 0RF doxycycline hyclate 100 mg Tablet 100 mg PO Q12HR Qty: 9 0RF prednisone 10 mg tablet 10 mg PO DIRECTED Qty: 25 0RF Rx Instructions: see taper instructions: 12/10/24 take 50 mg (5 tablets), 12/11/24 & 12/12/24 take 40 mg (4 tablets), 12/13/24 & 12/14/24 take 30 mg (3 tablets), 12/15/24 & 12/16/24 take 20 mg (2 tablets), 12/17/24 & 12/18/24 take 10 mg (1 tablet). Continued pregabalin 200 mg capsule 200 mg PO BID rosuvastatin 10 mg tablet 10 mg PO HS magnesium oxide 400 mg magnesium tablet 400 mg PO BID Trintellix 20 mg tablet 20 mg PO DAILY albuterol sulfate 2.5 mg /3 mL (0.083 %) solution for nebulization 2.5 mg inhalation Q4-6H PRN (Reason: shortness of breath or wheezing) Qty: 180 2RF furosemide 20 mg tablet 20 mg PO DAILY levothyroxine [Unithroid] 75 mcg tablet 75 mcg PO DAILY@0630 isosorbide mononitrate 30 mg tablet extended release 24 hr 30 mg PO DAILY minoxidil 2.5 mg tablet 2.5 mg PO DAILY oxybutynin chloride 10 mg Tablet Extended Release 24hr 10 mg PO HS amlodipine 5 mg Tablet 5 mg PO DAILY albuterol sulfate 90 mcg/actuation HFA aerosol inhaler 2 puff inhalation QID PRN (Reason: shortness of breath or wheezing) Qty: 8.5 0RF dapagliflozin propanediol 10 mg tablet 10 mg PO DAILY Qty: 90 3RF Breztri Aerosphere 160-9-4.8 mcg/actuation HFA aerosol inhaler See Rx Instructions .ROUTE .COMPLEX Qty: 10.7 6RF Dose Instruction: INHALE 2 PUFFS BY MOUTH TWICE DAILY. RINSE MOUTH WITH WATER AND SPIT Rx Instructions: INHALE 2 PUFFS BY MOUTH TWICE DAILY. RINSE MOUTH WITH WATER AND SPIT Other Ambulatory Orders: Basic Metabolic Panel (DAILY) Timeframe: 20241213 Location: Determined by Patient Ordered By: Valery Villalba Date of admission: 12/06/24 09:43 Primary Care Provider: Jn Velásquez Admitting Provider: Zaki Still Attending physician on admission: Zaki Still Condition: Stable Hospitalist MIPS Heart Failure (Exclusion) Patient has history of Heart Transplant or Left Ventricular Assistive Device?: No IF YES, STOP HERE Heart Failure (Qualifier) Patient has current or prior documentation of LVEF less than or equal to 40%, or mod/servere depressed LVSF?: No IF NO, STOP HERE
[2024-12-09] MEDS: predniSONE 10 MG TABLET 50 MG PO (16:17)
== END 2024-12-09 16:39 | disposition home or self-care (01) | DRG 193 ==
LOC: ANHED 18:28 → ANH3MEDSUR 19:32
PROVIDERS: Emergency Medicine; Student in an Organized Health Care Education/Training Program; Admitting Provider Internal Medicine; Emergency Provider Emergency Medicine; PCP Family Medicine; Visit Provider Nurse Practitioner Family
DX: J18.9 Pneumonia, unspecified organism (principal); J96.21 Acute and chronic respiratory failure with hypoxia; J44.0 Chronic obstructive pulmonary disease with (acute) lower respiratory infection; J44.1 Chronic obstructive pulmonary disease with (acute) exacerbation; I13.0 Hypertensive heart and chronic kidney disease with heart failure and stage 1 through stage 4 chronic kidney disease, or unspecified chronic kidney disease; I50.32 Chronic diastolic (congestive) heart failure; E03.9 Hypothyroidism, unspecified; E78.5 Hyperlipidemia, unspecified; E66.01 Morbid (severe) obesity due to excess calories; E11.22 Type 2 diabetes mellitus with diabetic chronic kidney disease; F32.A Depression, unspecified; F41.9 Anxiety disorder, unspecified; G47.33 Obstructive sleep apnea (adult) (pediatric); G25.81 Restless legs syndrome; I25.2 Old myocardial infarction; I25.10 Atherosclerotic heart disease of native coronary artery without angina pectoris; I27.20 Pulmonary hypertension, unspecified; K14.6 Glossodynia; K21.9 Gastro-esophageal reflux disease without esophagitis; N18.9 Chronic kidney disease, unspecified; Z99.81 Dependence on supplemental oxygen; Z85.850 Personal history of malignant neoplasm of thyroid; Z91.148 Patient's other noncompliance with medication regimen for other reason; Z90.89 Acquired absence of other organs; Z90.49 Acquired absence of other specified parts of digestive tract; Z87.891 Personal history of nicotine dependence; Z20.822 Contact with and (suspected) exposure to COVID-19; Z28.21 Immunization not carried out because of patient refusal
CPT/HCPCS: 36415; 36600; 71045; 71275; 80048; 80053; 81001; 82805; 82948; 83605; 83690; 83735; 83880; 84100; 84484; 85018; 85025; 85380; 85610; 85730; 86140; 86738; 87040; 87449; 87637; 87641; 87899; 93005; 93970; 94640; 94667; 94669; 96365; 96367; 96368; 96375; 96376; 99285; A9270; C8929; G0378; J0692; J1815; J2405; J2919; J7512; Q9957; Q9967

== ENCOUNTER 2024-12-12 14:36 | Outpatient (CLI) | payer MEDICARE, MEDICAID, SELFPAY ==
--- OUTSIDE RECORDS SUMMARY | 2024-12-12 15:21 | XMS_ITS | Encounter Summary ---
Author Organization [facility] Address [address] [place] [address] Care Team Providers Care Bilingual Sales Assistant Name Role Phone Unavailable Primary Care Provider Unavailabl e Reason for Visit * Reason Onset Date Comments BARIATRIC 12/12/2024 Call to patientM corey Hurst Encounter Details Date Type Department Care Team (Late st Contact Info) Description 12/12/2024 Telephone [facility] [address] [place] [address] Jessica Mccarthy RN BARIATRIC (Call to patient/Marissa Hurst/) Social History Tobacco Use Types Packs/Day Years Used Date Smoking Tobacco: Never Assessed Comments Unknown Sex and Gender Information Value Date Recorded Sex Assigned at Not on file Legal Sex Female 11:56 PM CDT Gender Identity Not on file Sexual Orientation Not on file documented as of this encounter Miscellaneous Notes * Telephone Encounter - Marissa Hurst - 12/12/2024 11:57 AM CST Received a return call from patient. She will come in for the visit and was encouraged to contact her insurance directly if she has questions. Marissa Hurst Web Marketing Analyst [facility] [email or web address] * Telephone Encounter - Marissa Hurst - 12/12/2024 8:38 AM CST Voice Message left to notify patient of Iza's call to insurance. Her C will follow Medicare Guidelines. We cannot bill out of state Medicaid. Marissa Hurst Web Marketing Analyst [facility] [email or web address] [employer] documented in this encounter Plan of Treatment Upcoming Encounters Date Type Department Care Team (Late st Contact Info) Description 12/20/2024 9:00 AM MAINSPRING STRIP GAUGER Office Visit [facility] - [address] [phone] Leonor Davenport MD [address] [place] [phone] documented as of this encounter Visit Diagnoses Not on filedocumented in this encounter
--- OUTSIDE RECORDS SUMMARY | 2024-12-12 15:21 | XMS_ITS | Encounter Summary ---
Author Organization [facility] Address [address] [place] [address] Care Team Providers Care Motion Picture Projectionist Name Role Phone Unavailable Primary Care Provider Unavailabl e Encounter Details Date Type Department Care Team (Late st Contact Info) Description 12/11/2024 External Device Data ST[place] ABSTRACTION Provider, Abstract NO ADDRESS ON FILE Social History Tobacco Use Types Packs/Day Years Used Date Smoking Tobacco: Never Assessed Comments Unknown Sex and Gender Information Value Date Recorded Sex Assigned at Not on file Legal Sex Female 11:56 PM CDT Gender Identity Not on file Sexual Orientation Not on file documented as of this encounter Plan of Treatment Upcoming Encounters Date Type Department Care Team (Late st Contact Info) Description 12/20/2024 9:00 AM LEAFLET DISTRIBUTOR Office Visit [facility] - [address] [phone] Leonor Davenport MD [address] [place] [phone] documented as of this encounter Visit Diagnoses Not on filedocumented in this encounter
--- OUTSIDE RECORDS SUMMARY | 2024-12-12 15:21 | XMS_ITS | Encounter Summary ---
Author Organization [facility] Address [address] [place] [address] Care Team Providers Care Probation Worker Name Role Phone Unavailable Primary Care Provider [...] st Contact Info) Description 12/20/2024 9:00 AM BILLING AND INSURANCE COORDINATOR Office Visit [facility] - [address] [phone] Leonor Davenport MD [address] [place] [phone] documented as of this encounter Visit Diagnoses Not on filedocumented in this encounter
--- OUTSIDE RECORDS SUMMARY | 2024-12-12 15:21 | XMS_ITS | Referral Summary ---
Author Organization [facility] Address [address] [place] [address] Care Team Providers Care Bulb Packer Name Role Phone Waqas De Leon MD Unavailable [phone] Waqas DeL eon MD Unavailable [phone] Cortney Corona MD Unavailable [phone] Jn Velásquez MD Primary Care Provider [phone] Miscellaneous, Not In File Unavailable Unava Daniel Courtney MD Unavailable [phone] James Cifuentes MD Unavailable Encounters Date Type Department Care Team Description 10/10/2024 2:00 PM ONCOLOGY RADIATION PHYSICIAN - 10/10/2024 11:59 PM ONCOLOGY RADIATION PHYSICIAN Hospital Encounter [facility] [address] [place] [address] Interstitial pulmonary disease (CMS/HCC) (HCC) Discharge Disposition: Discharge to home or self care 10/10/2024 2:15 PM ONCOLOGY RADIATION PHYSICIAN Lab [facility] Endocrinology Metabolism and Lipid [address] [facility] 5[address] [place] [address] Interstitial pulmonary disease (CMS/HCC) (HCC) 10/10/2024 1:00 PM ONCOLOGY RADIATION PHYSICIAN Office Visit [facility] Rheumatology [facility] [facility] [address] [place] [address] [place] [address] Interstitial pulmonary disease (CMS/HCC) (HCC) (Primary Dx) 09/11/2024 5:33 PM ONCOLOGY RADIATION PHYSICIAN - 09/11/2024 11:59 PM ONCOLOGY RADIATION PHYSICIAN Hospital Encounter [facility] [address] [place] [address] Discharge Disposition: Discharge to home or self care 09/11/2024 4:44 PM ONCOLOGY RADIATION PHYSICIAN - 09/11/2024 11:59 PM ONCOLOGY RADIATION PHYSICIAN Hospital Encounter [facility] ([facility]) [address] [place] [address] Discharge Disposition: Discharge to home or self care 09/11/2024 4:42 PM ONCOLOGY RADIATION PHYSICIAN - 09/11/2024 11:59 PM ONCOLOGY RADIATION PHYSICIAN Hospital Encounter [facility] ([facility]) [address] [place] [address] Discharge Disposition: Discharge to home or self care 09/11/2024 4:41 PM ONCOLOGY RADIATION PHYSICIAN - 09/11/2024 11:59 PM ONCOLOGY RADIATION PHYSICIAN Hospital Encounter [facility] ([facility]) [address] [place] [address] Discharge Disposition: Discharge to home or self care 09/11/2024 4:40 PM ONCOLOGY RADIATION PHYSICIAN - 09/11/2024 11:59 PM ONCOLOGY RADIATION PHYSICIAN Hospital Encounter [facility] ([facility]) [address] [place] [address] Discharge Disposition: Discharge to home or self [...] AM CDT): 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 Continue to [...] CDT): Initial CT showed a pleural effusion. BNP was elevated at 2114. CXR suggested PNA, [...] often do you attend chur ch or lutheran services? Never 05/31/2023 Do you belong to any clubs o r organizations such as methodist groups, unions, fraternal or athletic groups, or [...] place to sleep or slept in a alf (including now)? No 05/31/2023 Personal Safety Answer Date Recorded Have you ever been in or are you currently in a harmful physical or emotional relationship or is someone making you feel afraid or unsafe? Denies 05/30/2023 Comments Unknown Sex and Gender Information Value Date Recorded Sex Assigned at Not on file Legal Sex Female 7:23 PM ONCOLOGY RADIATION PHYSICIAN Gender Identity Not on file Sexual Orientation Not on file Last Filed Vital Signs Vital Sign Reading Time Taken Comments Blood Pressure 123/61 10/10/2024 1:09 PM ONCOLOGY RADIATION PHYSICIAN Pulse 70 10/10/2024 1:09 PM ONCOLOGY RADIATION PHYSICIAN Temperature 36.7 C (98 F) 10/10/2024 1:09 PM ONCOLOGY RADIATION PHYSICIAN Respiratory Rate 20 06/01/2023 11:31 AM CDT Oxygen Saturation 88% 08/10/2024 10:08 AM CDT Inhaled Oxygen Concentration - - Weight 106 kg (233 lb 9.6 oz) 10/10/2024 1:09 PM ONCOLOGY RADIATION PHYSICIAN Height 156.2 cm (5' 1.5 ) 10/10/2024 1:09 PM ONCOLOGY RADIATION PHYSICIAN Body Mass Index 43.42 10/10/2024 1:09 PM ONCOLOGY RADIATION PHYSICIAN Plan of Treatment Not on file Procedures Procedure Name Priority Date/Time Associated Diagnosis Comments RHEUMATOID FACTOR Routine 10/10/2024 2:0 0 PM ONCOLOGY RADIATION PHYSICIAN Interstitial pulmonary disease (CMS/HCC) (HCC) KATHY ANTIBODY EVALUATION WITH REFLEX Routine 10/10/2024 2:00 PM ONCOLOGY RADIATION PHYSICIAN Interstitial pulmonary disease (CMS/HCC) (HCC) ERYTHROCYTE SEDIMENTATION RATE Routine 10/10/2024 2:00 PM ONCOLOGY RADIATION PHYSICIAN Interstitial pulmonary disease (CMS/HCC) (HCC) JOSE QUALITATIVE WITH REFLEX TO JOSE QUANTITATIVE Routine 10/10/2024 2:00 PM ONCOLOGY RADIATION PHYSICIAN Interstitial pulmonary disease (CMS/HCC) (HCC) ALDOLASE Routine 10/10/2024 2:00 PM ONCOLOGY RADIATION PHYSICIAN Interstitial pulmonary disease (CMS/HCC) (HCC) COMPREHENSIVE METABOLIC PANEL Routine 10/10/2024 2:00 PM ONCOLOGY RADIATION PHYSICIAN Interstitial pulmonary disease (CMS/HCC) (HCC) CREATINE KINASE (CK), TOTAL Routine 10/10/2024 2:00 PM ONCOLOGY RADIATION PHYSICIAN Interstitial pulmonary disease (CMS/HCC) (HCC) PHOSPHORUS Routine 10/10/2024 2:00 PM ONCOLOGY RADIATION PHYSICIAN Interstitial pulmonary disease (CMS/HCC) (HCC) URIC ACID Routine 10/10/2024 2:00 PM ONCOLOGY RADIATION PHYSICIAN Interstitial pulmonary disease (CMS/HCC) (HCC) CRP (ACUTE PHASE) Routine 10/10/2024 2:0 0 PM ONCOLOGY RADIATION PHYSICIAN Interstitial pulmonary disease (CMS/HCC) (HCC) CT BODY OUTSIDE REFERENCE Routine 09/11/2024 5:34 [address]Y RADIATION PHYSICIAN CT BODY OUTSIDE REFERENCE Routine 09/11/2024 4:[address]Y RADIATION PHYSICIAN [address] BODY OUTSIDE REFERENCE Routine 09/11/2024 4:[address]Y RADIATION PHYSIC[address] BODY OUTSIDE REFERENCE Routine 09/11/2024 4:[address] BODY OUTSIDE REFERENCE Routine 09/11/2024 4:40 PM ONCOLOGY RADIATION PHYSICIAN HEPATITIS PANEL, ACUTE Routine 12:01 PM CDT Interstitial pulmonary disease (CMS/HCC) (HCC) from Last 3 Months or Most Recently Relevant to Health Maintenance Results * (ABNORMAL) JOSE ab ql w/rflx to JOSE qn (10/10/2024 2:00 PM ONCOLOGY RADIATION PHYSICIAN) JOSE Positive 1:80 Comment: Interpretive Data Normal [...] age 65 have significantly positive JOSE results. 5% or less of normal people age 65 or under have significantly positive JOSE results. Current interpretive data was last revised on 2020. JOSE, quant 1:80 titer [facility] JOSE, interp Speckled(A) [facility] Blood 10/10/2024 2:00 PM ONCOLOGY RADIATION PHYSICIAN 10/10/2024 2:39 PM ONCOLOGY RADIATION PHYSICIAN us Zarina Carroll MD LAB BLOOD ORDERABLES Final Resul t [facility] [place] [address] * KATHY ab eval w/reflex (10/10/2024 2:00 PM ONCOLOGY RADIATION PHYSICIAN) KATHY ab Negative Negative Comment: Interpretive Data Positive Screens will be reflexed to specific testing for Antibodies against the following antigens: Nancy-1 Ab, SCIENCE AND OPERATIONS OFFICER Ab, Scl-70 Ab, Castillo Ab, SS-A/Ro Ab, and SS- B/La Ab. Further testing for dsDNA, Centromere, or Ribosomal P antibodies is suggested in patient with a positive screen and negative specific antibodies. Current interpretive data was last revised on 2023. Blood 10/10/2024 2:00 PM ONCOLOGY RADIATION PHYSICIAN 10/10/2024 2:39 PM ONCOLOGY RADIATION PHYSICIAN us Zarina Carroll MD LAB BLOOD ORDERABLES Final Resul t Performing Organization Address [facility] Co de Phone Number [facility] Department [place] [address] * (ABNORMAL) Aldolase (10/10/2024 2:00 PM ONCOLOGY RADIATION PHYSICIAN) Pathologist [facility] Aldolase 13.1(H) 0.1 - 8.0 Units/L Blood 10/10/2024 2:00 PM ONCOLOGY RADIATION PHYSICIAN 10/10/2024 2:39 PM ONCOLOGY RADIATION PHYSICIAN us Zarina Carroll MD LAB BLOOD ORDERABLES Final Resul t Performing Organization Address [facility] Co de Phone Number [facility] [place] [address] * Erythrocyte sedimentation rate (10/10/2024 2:00 PM ONCOLOGY RADIATION PHYSICIAN) Pathologist [facility] Erythrocyte sedimentation rate 23 1 - 30 mm/hr Comment:Testing performed by : [facility], [facility], [place]., [address] Blood 10/10/2024 2:00 PM ONCOLOGY RADIATION PHYSICIAN 10/10/2024 2:39 PM ONCOLOGY RADIATION PHYSICIAN us Zarina Carroll MD LAB BLOOD ORDERABLES Final Resul t Performing Organization Address City/[facility] Co de Phone Number [facility] [place] [address] * Rheumatoid factor (10/10/2024 2:00 PM ONCOLOGY RADIATION PHYSICIAN) Pathologist [facility] Rheumatoid factor, quant 15.0 0.1 - 15.0 IUnits/mL Blood 10/10/2024 2:00 PM ONCOLOGY RADIATION PHYSICIAN 10/10/2024 2:39 PM ONCOLOGY RADIATION PHYSICIAN Zarina Carroll MD LAB BLOOD ORDERABLES Final Resul t Performing Organization Address [facility] de Phone Number [facility] [place] [address] * (ABNORMAL) CRP (acute phase) (10/10/2024 2:00 PM ONCOLOGY RADIATION PHYSICIAN) Pathologist [facility] C-Reactive Protein, Acute 5.6(H) <5.0 mg/L [facility] Blood 10/10/2024 2:00 PM ONCOLOGY RADIATION PHYSICIAN 10/10/2024 3:21 PM ONCOLOGY RADIATION PHYSICIAN Zarina Carroll MD LAB BLOOD ORDERABLES Final Resul t Performing Organization Address [facility] Co de Phone Number [facility] * Uric acid (10/10/2024 2:00 PM ONCOLOGY RADIATION PHYSICIAN) [facility] Uric Acid 7.4 3.1 - 7.7 mg/dL [facility] Blood 10/10/2024 2:00 PM ONCOLOGY RADIATION PHYSICIAN 10/10/2024 3:21 PM ONCOLOGY RADIATION PHYSICIAN Zarina Carroll MD LAB BLOOD ORDERABLES Final Resul t [facility] * Phosphorus (10/10/2024 2:00 PM ONCOLOGY RADIATION PHYSICIAN) Phosphorus 3.2 2.3 - 4.5 mg/dL [facility] Blood 10/10/2024 2:00 PM ONCOLOGY RADIATION PHYSICIAN 10/10/2024 3:21 PM ONCOLOGY RADIATION PHYSICIAN Zarina Carroll MD LAB BLOOD ORDERABLES Final Resul t Performing Organization Address City/[facility]/ZIP Co de Phone Number [facility] * Creatine kinase (CK), total (10/10/2024 2:00 PM ONCOLOGY RADIATION PHYSICIAN) CK, Total 156 26 - 308 IU/L [facility] Blood 10/10/2024 2:00 PM ONCOLOGY RADIATION PHYSICIAN 10/10/2024 3:21 PM ONCOLOGY RADIATION PHYSICIAN Zarina Carroll MD LAB BLOOD ORDERABLES Final Resul t Performing Organization Address [facility] de Phone Number [facility] * (ABNORMAL) Comprehensive metabolic panel (10/10/2024 2:00 PM ONCOLOGY RADIATION PHYSICIAN) Total Protein 7.7 6.1 - 8.4 g/dL [...] [facility] Blood 10/10/2024 2:00 PM ONCOLOGY RADIATION PHYSICIAN 10/10/2024 3:21 PM ONCOLOGY RADIATION PHYSICIAN Zarina Carroll MD LAB BLOOD ORDERABLES Final Resul t Performing Organization Address [facility] Co de Phone Number [facility] * CT Body Outside Reference (09/11/2024 5:34 PM ONCOLOGY RADIATION PHYSICIAN) Impressions RAD_PACS_[facility] - 09/11/2024 5:34 PM ONCOLOGY RADIATION PHYSICIAN These images are for Reference purposes only and have not been reviewed by [facility] Radiology. There will be no report generated by a [facility] Radiologist. Narrative RAD_PACS_[facility] - 09/11/2024 5:34 PM ONCOLOGY RADIATION PHYSICIAN EXAMINATION: Images For Reference Purposes Only Zarina Carroll MD IMG CT PROCEDURES Final Result Performing Organization Address [facility] de Phone Number [email or web address] * CT Body Outside Reference (09/11/2024 4:44 PM ONCOLOGY RADIATION PHYSICIAN) Impressions RAD_PACS_[facility] - 09/11/2024 4:44 PM ONCOLOGY RADIATION PHYSICIAN These images are for Reference purposes only and have not been reviewed by [facility] Radiology. There will be no report generated by a [facility] Radiologist. Narrative RAD_PACS_[facility] - 09/11/2024 4:44 PM ONCOLOGY RADIATION PHYSICIAN EXAMINATION: Images For Reference Purposes Only Zarina Carroll MD IMG CT PROCEDURES Final Result Performing Organization Address [facility] Co de Phone Number [email or web address] * CT Body Outside Reference (09/11/2024 4:42 PM ONCOLOGY RADIATION PHYSICIAN) Impressions [facility] - 09/11/2024 4:42 PM ONCOLOGY RADIATION PHYSICIAN These images are for Reference purposes only and have not been reviewed by [facility] Radiology. There will be no report generated by a [facility] Radiologist. Narrative [facility] - 09/11/2024 4:42 PM ONCOLOGY RADIATION PHYSICIAN EXAMINATION: Images For Reference Purposes Only Zarina Carroll MD IMG CT PROCEDURES Final Result Performing Organization Address [facility] de Phone Number [email or web address] * CT Body Outside Reference (09/11/2024 4:41 PM ONCOLOGY RADIATION PHYSICIAN) Impressions [facility] - 09/11/2024 4:41 PM ONCOLOGY RADIATION PHYSICIAN These images are for Reference purposes only and have not been reviewed by [facility] Radiology. There will be no report generated by a [facility] Radiologist. Narrative [facility]_P[facility] - 09/11/2024 4:41 PM ONCOLOGY RADIATION PHYSICIAN EXAMINATION: Images For Reference Purposes Only Zarina Carroll MD [facility] PROCEDURES Final Result Performing Organization Address [facility] de Phone Number [email or web address] * CT Body Outside Reference (09/11/2024 4:40 PM ONCOLOGY RADIATION PHYSICIAN) Impressions [facility] - 09/11/2024 4:40 PM ONCOLOGY RADIATION PHYSICIAN These images are for Reference purposes only and have not been reviewed by [facility] Radiology. There will be no report generated by a [facility] Radiologist. Narrative [facility] - 09/11/2024 4:40 PM ONCOLOGY RADIATION PHYSICIAN EXAMINATION: Images For Reference Purposes Only Zarina Carroll MD IM CT PROCEDURES Final Result Performing Organization Address [facility] de Phone Number [email or web address] * Hepatitis panel, acute Blood (08/10/2024 12:01 PM CDT) Hep A IgM Nonreactive Nonreactive Hep B core IgM Nonreactive Nonreactive [facility] Hep C Ab Nonreactive Nonreactive [facility] Comment:Antibodies to HCV no t detected. Does NOT exclude the possibility of recent exposure to HCV. Current interpretive data was last revised on 22 HepBsAg Nonreactive Nonreactive [facility] Blood 08/10/2024 12:0 1 PM CDT 08/10/2024 2:23 PM CDT us Zarina Carroll MD LAB MICROBIOLOGY - GENERAL ORDER TATO Final Result [facility] [place] [address] from Last 3 Months or Most Recently Relevant to Health Maintenance Insurance MEDICARE SOLUTIONS IDPA IDPA MEDICARE SOLUTIONS IDPA MEDICARE SOLUTIONS MEDICARE SOLUTIONS IDPA MEDICARE SOLUTIONS IDPA Advance Directives For more information, please contact: [phone] * Full Code (Latest Code Status on File) Date Activated Date Inactivated Comments 05/30/2023 2:42 AM 06/01/2023 6:25 PM * Full Code Date Activated Date Inactivated Comments 05/30/2023 12:31 AM 05/30/2023 2:42 AM * Full Code Date Activated Date Inactivated Comments 05/05/2022 2:33 PM 05/14/2022 7:09 PM Care Teams Bulb Packer Relationship Specialty Start Date End Date Jn Velásquez MD PCP - General Family Medicine 05/29/23 Waqas De Leon MD Internal Medicine 11/20/21 Waqas De Leon MD Internal Medicine 06/06/19 Cortney Corona MD Referring Physician Surgery 05/14/22 Miscellaneous, Not In File 05/31/23 Daniel Go MD [address] [place] [address] Consulting Physician Interventional Cardiology 05/31/23 [place] [address] [facility] [address] [place] [address] Consulting Physician Pulmonary Disease 05/31/23
--- OUTSIDE RECORDS SUMMARY | 2024-12-12 15:21 | XMS_ITS | Clinical Summary ---
Author Organization [facility] Address [address], [place] [address] Phone Care Team Providers Care Filer Metal Patterns Name Role Phone Jn Velásquez MD Primary Care Provider [phone] Allergies Active Allergy Reactions Criticality Noted Date [...] 05/29/2020 Active ergocalciferol (VITAMIN D2) 1.25 MG (74181 UT) capsule Take 50,000 Units by mouth [...] tablet 06/27/2022 Active Blood Glucose Monitoring Suppl ([employer] ULTRA 2) w/Device kit 05/28/2022 Active chlorthalidone [...] PM CDT Pulse - - Temperature 35.8 C (96.5 F) 06/28/2022 1:26 PM CDT Respiratory Rate 18 06/28/2022 1:26 PM CDT [...] 11/26/2015 Influenza Vaccine (#1) 2024 Care Teams Filer Metal Patterns Relationship Specialty Start Date End Date Jn Velásquez MD [address] [place] [address] [phone] PCP - General Internal Medicine 06/18/20
--- OUTSIDE RECORDS SUMMARY | 2024-12-12 15:21 | XMS_ITS | Clinical Summary ---
Author Organization [facility] Address [address] [place] [address] Care Team Providers Care Ventilation Equipment Tender Name Role Phone Waqas De Leon MD Unavailable [phone] Waqas De Leon MD Unavailable [phone] Cortney Corona MD Unavailable Jn Velásquez MD Primary Care Provider [phone] Miscellaneous, Not In File Unavailable Unava ilDaniel Mckeon MD Unavailable [phone] James Cifuentes MD Unavailable Allergies Active Allergy Reactions Criticality Noted Date [...] CDT): Pt dx a month ago with [place]'s disease (abnormal high-dose dexamethasone suppression test) and [...] Patient need to follow up with her talent development consultant Dr. Fitch at [facility] on 06/28 Acute pulmonary edema (CMS/HCC) 05/18/2022 [...] on room air- transition to torsemide per talent development consultant, add low dose potassium supplement. Continue to [...] Department Care Team Description 10/10/2024 2:15 PM TELECOMMUNICATIONS EQUIPMENT INSTALLER Lab [facility] Endocrinology Metabolism and Lipid [address] 5th [place] [address] Interstitial pulmonary disease (CMS/HCC) (HCC) 10/10/2024 2:00 PM TELECOMMUNICATIONS EQUIPMENT INSTALLER - 10/10/2024 11:59 PM TELECOMMUNICATIONS EQUIPMENT INSTALLER Hospital Encounter [address] [address] Interstitial pulmonary disease (CMS/HCC) (HCC) Discharge Disposition: Discharge to home or self care 10/10/2024 1:00 PM TELECOMMUNICATIONS EQUIPMENT INSTALLER Office Visit [facility] Rheumatology [address] 5[address] [place] [address] [place] [address] Interstitial pulmonary disease (CMS/HCC) (HCC) (Primary Dx) 09/11/2024 5:33 PM TELECOMMUNICATIONS EQUIPMENT INSTALLER - 09/11/2024 11:59 PM TELECOMMUNICATIONS EQUIPMENT INSTALLER Hospital Encounter [facility]) [address] [place] [address] Discharge Disposition: Discharge to home or self care 09/11/2024 4:44 PM TELECOMMUNICATIONS EQUIPMENT INSTALLER - 09/11/2024 11:59 PM TELECOMMUNICATIONS EQUIPMENT INSTALLER Hospital Encounter [facility] ([facility]) [address] [place] [address] Discharge Disposition: Discharge to home or self care 09/11/2024 4:42 PM TELECOMMUNICATIONS EQUIPMENT INSTALLER - 09/11/2024 11:59 PM TELECOMMUNICATIONS EQUIPMENT INSTALLER Hospital Encounter [facility] ([facility]) [address] [place] [address] Discharge Disposition: Discharge to home or self care 09/11/2024 4:41 PM TELECOMMUNICATIONS EQUIPMENT INSTALLER - 09/11/2024 11:59 PM TELECOMMUNICATIONS EQUIPMENT INSTALLER Hospital Encounter [facility] ([facility]) [address] [place] [address] Discharge Disposition: Discharge to home or self care 09/11/2024 4:40 PM TELECOMMUNICATIONS EQUIPMENT INSTALLER - 09/11/2024 11:59 PM TELECOMMUNICATIONS EQUIPMENT INSTALLER Hospital Encounter [facility] ([facility]) [address] [place] [address] Discharge Disposition: Discharge to home or self care from Last 3 Months Surgical History Surgery Date Site/Laterality Comments CHOLECYSTECTOMY Cholecystectomy THYROIDECTOMY 11/07/2014 - 11/06/2015 Thyroidectomy HYSTERECTOMY ANTERIOR CERVICAL DISCECTOMY Medical History Medical History Date Comments Hyperlipidemia Hyperlipidemia; Comments: 04/04/2015 - Hypertension Hypertension Hx Other Medical chronic back pa in; Comments: 04/04/2015 - Hx Other Medical KATE; Comments: 04/04/2015 - Hx Other Medical carpal tunnel r elease sx; Comments: 04/04/2015 - Anemia Pulmonary hypertension (HCC) MVP [...] 05/31/2023 How often do you attend chur or yarsani services? Never 05/31/2023 Do you belong to any clubs o r organizations such as taoist groups, unions, fraternal or athletic groups, or [...] place to sleep or slept in a penitentiary (including now)? No 05/31/2023 Personal Safety Answer Date Recorded Have you ever been in or are you currently in a harmful physical or emotional relationship or is someone making you feel afraid or unsafe? Denies 05/30/2023 Comments Unknown Sex and Gender Information Value Date Recorded Sex Assigned at Not on file Legal Sex Female 7:23 PM TELECOMMUNICATIONS EQUIPMENT INSTALLER Gender Identity Not on file Sexual Orientation Not on file Obstetrics History Last Filed Vital Signs Vital Sign Reading Time Taken Comments Blood Pressure 123/61 10/10/2024 1:09 PM TELECOMMUNICATIONS EQUIPMENT INSTALLER Pulse 70 10/10/2024 1:09 PM TELECOMMUNICATIONS EQUIPMENT INSTALLER Temperature 36.7 C (98 F) 10/10/2024 1:09 PM TELECOMMUNICATIONS EQUIPMENT INSTALLER Respiratory Rate 20 06/01/2023 11:31 AM CDT Oxygen Saturation 88% 08/10/2024 10:08 AM CDT Inhaled Oxygen Concentration - - Weight 106 kg (233 lb 9.6 oz) 10/10/2024 1:09 PM TELECOMMUNICATIONS EQUIPMENT INSTALLER Height 156.2 cm (5' 1.5 ) 10/10/2024 1:09 PM TELECOMMUNICATIONS EQUIPMENT INSTALLER Body Mass Index 43.42 10/10/2024 1:09 PM TELECOMMUNICATIONS EQUIPMENT INSTALLER Plan of Treatment Health Maintenance Due Date [...] RHEUMATOID FACTOR Routine 10/10/2024 2:0 0 PM TELECOMMUNICATIONS EQUIPMENT INSTALLER Interstitial pulmonary disease (CMS/HCC) (HCC) KATHY ANTIBODY EVALUATION WITH REFLEX Routine 10/10/2024 2:00 PM TELECOMMUNICATIONS EQUIPMENT INSTALLER Interstitial pulmonary disease (CMS/HCC) (HCC) ERYTHROCYTE SEDIMENTATION RATE Routine 10/10/2024 2:00 PM TELECOMMUNICATIONS EQUIPMENT INSTALLER Interstitial pulmonary disease (CMS/HCC) (HCC) JOSE QUALITATIVE WITH REFLEX TO JOSE QUANTITATIVE Routine 10/10/2024 2:00 PM TELECOMMUNICATIONS EQUIPMENT INSTALLER Interstitial pulmonary disease (CMS/HCC) (HCC) ALDOLASE Routine 10/10/2024 2:00 PM TELECOMMUNICATIONS EQUIPMENT INSTALLER Interstitial pulmonary disease (CMS/HCC) (HCC) COMPREHENSIVE METABOLIC PANEL Routine 10/10/2024 2:00 PM TELECOMMUNICATIONS EQUIPMENT INSTALLER Interstitial pulmonary disease (CMS/HCC) (HCC) CREATINE KINASE (CK), TOTAL Routine 10/10/2024 2:00 PM TELECOMMUNICATIONS EQUIPMENT INSTALLER Interstitial pulmonary disease (CMS/HCC) (HCC) PHOSPHORUS Routine 10/10/2024 2:00 PM TELECOMMUNICATIONS EQUIPMENT INSTALLER Interstitial pulmonary disease (CMS/HCC) (HCC) URIC ACID Routine 10/10/2024 2:00 PM TELECOMMUNICATIONS EQUIPMENT INSTALLER Interstitial pulmonary disease (CMS/HCC) (HCC) CRP (ACUTE PHASE) Routine 10/10/2024 2:0 0 PM TELECOMMUNICATIONS EQUIPMENT INSTALLER Interstitial pulmonary disease (CMS/HCC) (HCC) CT BODY OUTSIDE REFERENCE Routine 09/11/2024 5:34 PM TELECOMMUNICATIONS EQUIPMENT INSTALLER CT BODY OUTSIDE REFERENCE Routine 09/11/2024 4:44 PM TELECOMMUNICATIONS EQUIPMENT INSTALLER CT BODY OUTSIDE REFERENCE Routine 09/11/2024 4:42 PM TELECOMMUNICATIONS EQUIPMENT INSTALLER CT BODY OUTSIDE REFERENCE Routine 09/11/2024 4:41 PM TELECOMMUNICATIONS EQUIPMENT INSTALLER CT BODY OUTSIDE REFERENCE Routine 09/11/2024 4:40 PM TELECOMMUNICATIONS EQUIPMENT INSTALLER HEPATITIS PANEL, ACUTE Routine 12:01 PM CDT Interstitial pulmonary disease (CMS/HCC) (HCC) from Last 3 Months or Most Recently Relevant to Health Maintenance Results * (ABNORMAL) JOSE ab ql w/rflx to JOSE qn (10/10/2024 2:00 PM TELECOMMUNICATIONS EQUIPMENT INSTALLER) JOSE Positive 1:80 Comment: Interpretive Data Normal [...] revised on 2020. JOSE, quant 1:80 titer [facility] JOSE, interp Speckled(A) [facility] Blood 10/10/2024 2:00 PM TELECOMMUNICATIONS EQUIPMENT INSTALLER 10/10/2024 2:39 PM TELECOMMUNICATIONS EQUIPMENT INSTALLER us Zarina Carroll MD LAB BLOOD ORDERABLES Final Resul t [facility] [place] [address] * KATHY ab eval w/reflex (10/10/2024 2:00 PM TELECOMMUNICATIONS EQUIPMENT INSTALLER) KATHY ab Negative Negative Comment: Interpretive Data Positive Screens will be reflexed to specific testing for Antibodies against the following antigens: Nancy-1 Ab, SOFTWARE ENGINEER INTERN Ab, Scl-70 Ab, Castillo Ab, SS-A/Ro Ab, and SS- B/La Ab. Further testing for dsDNA, Centromere, or Ribosomal P antibodies is suggested in patient with a positive screen and negative specific antibodies. Current interpretive data was last revised on 2023. Blood 10/10/2024 2:00 PM TELECOMMUNICATIONS EQUIPMENT INSTALLER 10/10/2024 2:39 PM TELECOMMUNICATIONS EQUIPMENT INSTALLER Zarina Carroll MD LAB BLOOD ORDERABLES Final Resul t Performing Organization Address [facility] Co de Phone Number [facility] [place] [address] * (ABNORMAL) Aldolase (10/10/2024 2:00 PM TELECOMMUNICATIONS EQUIPMENT INSTALLER) Pathologist [facility] Aldolase 13.1(H) 0.1 - 8.0 Units/L Blood 10/10/2024 2:00 PM TELECOMMUNICATIONS EQUIPMENT INSTALLER 10/10/2024 2:39 PM TELECOMMUNICATIONS EQUIPMENT INSTALLER Zarina Carroll MD LAB BLOOD ORDERABLES Final Resul t Performing Organization Address [facility] [place] [address] * Erythrocyte sedimentation rate (10/10/2024 2:00 PM TELECOMMUNICATIONS EQUIPMENT INSTALLER) [facility] Erythrocyte sedimentation rate 23 1 - 30 mm/hr Comment:Testing performed by : [facility], [place]., [address] Blood 10/10/2024 2:00 PM TELECOMMUNICATIONS EQUIPMENT INSTALLER 10/10/2024 2:39 PM TELECOMMUNICATIONS EQUIPMENT INSTALLER Zarina Carroll MD LAB BLOOD ORDERABLES Final Resul t Performing Organization Address [facility] de Phone Number [facility] [place] [address] * Rheumatoid factor (10/10/2024 2:00 PM TELECOMMUNICATIONS EQUIPMENT INSTALLER) Pathologist [facility] Rheumatoid factor, quant 15.0 0.1 - 15.0 IUnits/mL Blood 10/10/2024 2:00 PM TELECOMMUNICATIONS EQUIPMENT INSTALLER 10/10/2024 2:39 PM TELECOMMUNICATIONS EQUIPMENT INSTALLER Zarina Carroll MD LAB BLOOD ORDERABLES Final Resul t Performing Organization Address [facility] de Phone Number [facility] [place] [address] * (ABNORMAL) CRP (acute phase) (10/10/2024 2:00 PM TELECOMMUNICATIONS EQUIPMENT INSTALLER) C-Reactive Protein, Acute 5.6(H) <5.0 mg/L [facility] Blood 10/10/2024 2:00 PM TELECOMMUNICATIONS EQUIPMENT INSTALLER 10/10/2024 3:21 PM TELECOMMUNICATIONS EQUIPMENT INSTALLER Zarina Carroll MD LAB BLOOD ORDERABLES Final Resul t Performing Organization Address [facility] de Phone Number [facility] * Uric acid (10/10/2024 2:00 PM TELECOMMUNICATIONS EQUIPMENT INSTALLER) Uric Acid 7.4 3.1 - 7.7 mg/dL [facility] Blood 10/10/2024 2:00 PM TELECOMMUNICATIONS EQUIPMENT INSTALLER 10/10/2024 3:21 PM TELECOMMUNICATIONS EQUIPMENT INSTALLER Zarina Carroll MD LAB BLOOD ORDERABLES Final Resul t Performing Organization Address City/[facility] Co de Phone Number [facility] * Phosphorus (10/10/2024 2:00 PM TELECOMMUNICATIONS EQUIPMENT INSTALLER) Phosphorus 3.2 2.3 - 4.5 mg/dL [facility] Blood 10/10/2024 2:00 PM TELECOMMUNICATIONS EQUIPMENT INSTALLER 10/10/2024 3:21 PM TELECOMMUNICATIONS EQUIPMENT INSTALLER Zarina Carroll MD LAB BLOOD ORDERABLES Final Resul t Performing Organization Address City/[facility]/ZIP Co de Phone Number [facility] * Creatine kinase (CK), total (10/10/2024 2:00 PM TELECOMMUNICATIONS EQUIPMENT INSTALLER) CK, Total 156 26 - 308 IU/L [facility] Blood 10/10/2024 2:00 PM TELECOMMUNICATIONS EQUIPMENT INSTALLER 10/10/2024 3:21 PM TELECOMMUNICATIONS EQUIPMENT INSTALLER Zarina Carroll MD LAB BLOOD ORDERABLES Final Resul t Performing Organization Address [facility] Co de Phone Number [facility] * (ABNORMAL) Comprehensive metabolic panel (10/10/2024 2:00 PM TELECOMMUNICATIONS EQUIPMENT INSTALLER) Total Protein 7.7 6.1 - 8.4 g/dL [...] [facility] Blood 10/10/2024 2:00 PM TELECOMMUNICATIONS EQUIPMENT INSTALLER 10/10/2024 3:21 PM TELECOMMUNICATIONS EQUIPMENT INSTALLER Result [facility] us Zarina Carroll MD LAB BLOOD ORDERABLES Final Resul t Performing Organization Address [facility] Co de Phone Number [facility] * CT Body Outside Reference (09/11/2024 5:34 PM TELECOMMUNICATIONS EQUIPMENT INSTALLER) Impressions [email or web address] - 09/11/2024 5:34 PM TELECOMMUNICATIONS EQUIPMENT INSTALLER These images are for Reference purposes only and have not been reviewed by [facility] Radiology. There will be no report generated by a [facility] Radiologist. Narrative [email or web address] - 09/11/2024 5:34 PM TELECOMMUNICATIONS EQUIPMENT INSTALLER EXAMINATION: Images For Reference Purposes Only us Zarina Carroll MD IMG CT PROCEDURES Final Result Performing Organization Address [facility] de Phone Number [email or web address] * CT Body Outside Reference (09/11/2024 4:44 PM TELECOMMUNICATIONS EQUIPMENT INSTALLER) Impressions [email or web address] - 09/11/2024 4:44 PM TELECOMMUNICATIONS EQUIPMENT INSTALLER These images are for Reference purposes only and have not been reviewed by [facility] Radiology. There will be no report generated by a [facility] Radiologist. Narrative [email or web address] - 09/11/2024 4:44 PM TELECOMMUNICATIONS EQUIPMENT INSTALLER EXAMINATION: Images For Reference Purposes Only us Zarina Carroll MD IMG CT PROCEDURES Final Result Performing Organization Address [facility] Co de Phone Number [email or web address] * CT Body Outside Reference (09/11/2024 4:42 PM TELECOMMUNICATIONS EQUIPMENT INSTALLER) Impressions [email or web address] - 09/11/2024 4:42 PM TELECOMMUNICATIONS EQUIPMENT INSTALLER These images are for Reference purposes only and have not been reviewed by [facility] Radiology. There will be no report generated by a [facility] Radiologist. Narrative [email or web address] - 09/11/2024 4:42 PM TELECOMMUNICATIONS EQUIPMENT INSTALLER EXAMINATION: Images For Reference Purposes Only Zarina Carroll MD IM CT PROCEDURES Final Result Performing Organization Address [facility] de Phone Number [email or web address] * CT Body Outside Reference (09/11/2024 4:41 PM TELECOMMUNICATIONS EQUIPMENT INSTALLER) Impressions [email or web address] - 09/11/2024 4:41 PM TELECOMMUNICATIONS EQUIPMENT INSTALLER These images are for Reference purposes only and have not been reviewed by [facility] Radiology. There will be no report generated by a [facility] Radiologist. Narrative [facility] - 09/11/2024 4:41 PM TELECOMMUNICATIONS EQUIPMENT INSTALLER EXAMINATION: Images For Reference Purposes Only Zarina Carroll MD [facility] [place] PROCEDURES Final Result Performing Organization Address [facility] de Phone Number [email or web address] * CT Body Outside Reference (09/11/2024 4:40 PM TELECOMMUNICATIONS EQUIPMENT INSTALLER) Impressions [facility] - 09/11/2024 4:40 PM TELECOMMUNICATIONS EQUIPMENT INSTALLER These images are for Reference purposes only and have not been reviewed by [facility] Radiology. There will be no report generated by a [facility] Radiologist. Narrative [facility] - 09/11/2024 4:40 PM TELECOMMUNICATIONS EQUIPMENT INSTALLER EXAMINATION: Images For Reference Purposes Only Zarina Carroll MD IM CT PROCEDURES Final Result Performing Organization Address [facility] de Phone Number [email or web address] * Hepatitis panel, acute Blood (08/10/2024 12:01 PM CDT) Hep A IgM Nonreactive Nonreactive Hep B core IgM Nonreactive Nonreactive [facility] Hep C Ab Nonreactive Nonreactive [facility] Comment:Antibodies to HCV no t detected. Does NOT exclude the possibility of recent exposure to HCV. Current interpretive data was last revised on 22 HepBsAg Nonreactive Nonreactive [facility] Blood 08/10/2024 12:0 1 PM CDT 08/10/2024 2:23 PM CDT us Zarina Carroll MD LAB MICROBIOLOGY - GENERAL ORDER TATO Final Result [facility] [place] [address] from Last 3 Months or Most Recently Relevant to Health Maintenance Insurance MEDICARE SOLUTIONS IDPA IDPA MEDICARE SOLUTIONS [address] MEDICARE [employer] [place] [id number] [facility] MEDICARE SOLUTIONS [facility] Advance Directives For more information, please contact: [phone] * Full Code (Latest Code Status on File) Date Activated Date Inactivated Comments 05/30/2023 2:42 AM 06/01/2023 6:25 PM * Full Code Date Activated Date Inactivated Comments 05/30/2023 12:31 AM 05/30/2023 2:42 AM * Full Code Date Activated Date Inactivated Comments 05/05/2022 2:33 PM 05/14/2022 7:09 PM Care Teams Ventilation Equipment Tender Relationship Specialty Start Date End Date Jn Velásquez MD PCP - General Family Medicine 05/29/23 Waqas De Leon MD Internal Medicine 11/20/21 Waqas De Leon MD Internal Medicine 06/06/19 Cortney Corona MD Referring Physician Surgery 05/14/22 Miscellaneous, Not In File 05/31/23 Daniel Go MD [address] [place] [address] Consulting Physician Interventional Cardiology 05/31/23 [place] [address] [facility] [address] [place] [address] Consulting Physician Pulmonary Disease 05/31/23
--- OUTSIDE RECORDS SUMMARY | 2024-12-12 15:21 | XMS_ITS | Encounter Summary ---
Author Organization [facility] Address [address] [place] [address] Care Team Providers Care Planting Material Carrier Name Role Phone Unavailable Primary Care Provider Unavailabl e Reason for Visit * Reason Onset Date Comments BARIATRIC 12/10/2024 Call to patient- insurance clarificationMarissa Hurst Encounter Details Date Type Department Care Team (Late st Contact Info) Description 12/10/2024 Telephone [facility] [address] [place] [address] Jessica Mccarthy RN BARIATRIC (Call to patient-insurance clarification/Marissa Hurst/) Social History Tobacco Use Types Packs/Day Years Used Date Smoking Tobacco: Never Assessed Comments Unknown Sex and Gender Information Value Date Recorded Sex Assigned at Not on file Legal Sex Female 11:56 PM CDT Gender Identity Not on file Sexual Orientation Not on file documented as of this encounter Miscellaneous Notes * Telephone Encounter - HurstMarissa guevara E - 12/11/2024 8:53 AM CST Patient returned my call regarding her Insurance. She states she has the following: [employer] Medicare [place] Medicaid Patient states all information was given at time of scheduling. Patient states she lives in [place] and is not planning to move to [place] at this time. I notified patient we could not bill Medicaid outside of [place], and I would check about the Medicare Plan for her. She said she has been having trouble with her phone, but number confirmed: [phone]. (Number onfile [phone]) We can also send her an email if needed, she received my email sent yesterday. Benefit Review in Media Printed Contact Log, GEE, Ins Card 12/11/24 Marissa Hurst Administrator Social Welfare [facility] [email or web address] E BEATER OPERATOR E BEATER OPERATOR E BEATER OPERATOR * Telephone Encounter - Aris Kelly - 12/10/2024 8:52 AM CST Images from the original note were not included. E BEATER OPERATOR * Telephone Encounter - ArisMarissa E - 12/10/2024 8:43 AM CST Attempted to call patient for insurance clarification x not a working number. My [facility] not active, I will try to email patient. Marissa Hurst Administrator Social Welfare [facility] [email or web address] E BEATER OPERATOR documented in this encounter Plan of Treatment Upcoming Encounters Date Type Department Care Team (Late st Contact Info) Description 12/20/2024 9:00 AM BROKE BEATER OPERATOR Office Visit [facility] - [address] [place] [address] [place] [phone] Leonor Davenport MD [address] [place] [phone] documented as of this encounter Visit Diagnoses Not on filedocumented in this encounter
--- OUTSIDE RECORDS SUMMARY | 2024-12-12 15:21 | XMS_ITS | Encounter Summary ---
Author Organization [facility] Address [address] [place] [address] Care Team Providers Care Segment Assembler Name Role Phone Unavailable Primary Care Provider [...] st Contact Info) Description 12/20/2024 9:[address] Office Visit [facility] - [address] [phone] Leonor Davenport MD [address] [place] [phone] documented as of this encounter Visit Diagnoses Not on filedocumented in this encounter
--- OUTSIDE RECORDS SUMMARY | 2024-12-12 15:21 | XMS_ITS | Encounter Summary ---
Author Organization [facility] Address [address] [place] [address] Care Team Providers Care Supervisor [employer] Name Role Phone Unavailable Primary Care Provider Unavailabl e Reason for Visit * Reason Onset Date Comments call to insurance carrier 12/11/2024 Call t o insurance carrier Encounter Details Date Type Department Care Team (Late Contact Info) Description 12/11/2024 Telephone [facility] [place] [address] [place] [address] [address] [place] [address] Mary Crocker, RN call to insurance carrier (Call to insurance carrier) Social History Tobacco Use Types Packs/Day Years Used Date Smoking Tobacco: Never Assessed Comments Unknown Sex and Gender Information Value Date Recorded Sex Assigned at Not on file Legal Sex Female 11:56 PM CDT Gender Identity Not on file Sexual Orientation Not on file documented as of this encounter Miscellaneous Notes * Telephone Encounter - Mary Crocker RN - 12/11/2024 12:33 PM SENIOR QUALITY ASSURANCE SPECIALIST I called [facility] to confirm the patient's benefits, per Shannan, call reference #[id number]. The patient has a Medicare PPO plan that follows Medicare guidelines. The patient has met her $257.00 deductible as of today. OR QUALITY ASSURANCE SPECIALIST documented in this encounter Plan of Treatment Upcoming Encounters Date Type Department Care Team (Late Contact Info) Description 12/20/2024 9:00 AM SENIOR QUALITY ASSURANCE SPECIALIST Office Visit [facility] [place] [address] [facility] [place] [id number] Leonor Davenport MD [address] [place] [address] [address] [place] [address] documented as of this encounter Visit Diagnoses Not on filedocumented in this encounter
--- OUTSIDE RECORDS SUMMARY | 2024-12-12 15:21 | XMS_ITS | Data Portability ---
Author Organization [facility] easy[employer], Main Office Address [address] [place] [address] Assessment No assessment recorded. Plan of Treatment Reminders Order Date Submit Date Provider Last Modified By Organization Details Last Modified Time Details Appointments None recorded. Lab lipid panel, serum 2022 023 [facility] (Lab), [address] [place], [address], 3 13:44:14 glycohemogl obin, total, blood 2022 023 [facility] (Lab), [address] [place], [address], 3 14:14:23 CMP, serum or plasma 2022 023 [facility] (Lab), [address] [place], [address], 3 14:34:25 TSH, serum or plasma 2022 023 [facility] (Lab), [address] [place], [address], 3 14:18:28 T4, free, serum 2022 023 [facility] (Lab), [address] [place], [address], 3 14:08:54 T3, free, serum or plasma 2022 023 [facility] (Lab), [address] [place], [address], 14:08:59 Referral endocrinolo gy referral - bilateral adrenal hyperplasia with abnormal DST, unable to tolerate korlym 2022 023 [facility], [address] [facility] [place] [facility], [place], [address], 12:50:55 Procedures None recorded. Surgeries None recorded. Imaging None recorded. Medication Orders Wegovy 0.5 mg/0.5 mL subcutaneou s pen injector 2022 023 [email or web address] [facility][id number], [address], [place], [id number], 3 12:27:44 Korlym 300 mg tablet 2022 023 [email or web address] [facility], [address] [place], [address], 12:29:23 Unithroid 100 mcg tablet 2022 023 [email or web address], [address], [place], [id number], 3 12:28:35 Ozempic 2 mg/dose (8 mg/3 mL) subcutaneou s pen injector [address] [facility], [address], [place], [id number], 4 13:30:28 Farxiga 5 mg tablet 2022 023 [facility], [address], [place], [id number], 4 13:29:03 Unithroid 75 mcg tablet 2022 023 [email or web address] [facility], [address], [place], [id number], 13:31:10 Patient TargetsNo targets recorded. Patient InstructionsNo [...] 2.6 pg/mL 2.77-5 .27 low Not Available [facility] (Lab) [address] [place], [address], 12/14/2022 15:23:41 12/14/19 23 12/14/2022 T4 FREE free T4 1.40 NG/dL 0.78-2 .19 Not Available [facility] (Lab) [address] [place], [address], 12/14/2022 15:23:38 12/14/19 23 12/14/2022 TSH thyroid-stim ulating hormone 0.598 uIU/m L 0.465- 4.680 Not Available [facility] (Lab) [address] [place], [address], 12/14/2022 15:12:15 12/14/1912/14/2022 HEMOG LOBIN A1C HA1C 5.6 % 4.0-6. 0 Diabe brianna Scree gisele Crite pamela: <5.7% Consi stent with absen ce of diabe brianna 5.7-6 .4% Consi stent with incre ased risk for diabe brianna (pred iabet es) >OR=6 .5% Consi stent with diabe brianna REFER ENCE: Diabe brianna Care 2016, 39(Anderson ppl.1 ):s13 -s22 Not Available [facility] (Lab) [address] [place], [address], 12/14/2022 14:54:35 12/14/19 23 12/14/2022 COMPR EHENS KECIA METAB OLIC PANEL A/G ratio 1.3 ratio 1.0-2. 0 Not Available [facility] (Lab) [address] [place], [address], 12/14/2022 14:24:11 12/14/19 23 12/14/2022 COMPR EHENS KECIA METAB OLIC PANEL carbon dioxide 25 mmol/ L 22-30 Not Available [facility] (Lab) [address] [place], [address], 12/14/2022 14:24:11 12/14/19 23 12/14/2022 COMPR EHENS KECIA METAB OLIC PANEL sodium 140 mmol/ L 137-14 5 Not Available [facility] (Lab) [address] [place], [address], 12/14/2022 14:24:11 12/14/19 23 12/14/2022 COMPR EHENS KECIA METAB OLIC PANEL potassium 4.0 mmol/ L 3.5-5. 1 Not Available [facility] (Lab) [address] [place], [address], 12/14/2022 14:24:11 12/14/19 23 12/14/2022 COMPR EHENS KECIA METAB OLIC PANEL chloride 103 mmol/ L 98-107 Not Available [facility] (Lab) [address] [place], [address], 12/14/2022 14:24:11 12/14/19 23 12/14/2022 COMPR EHENS KECIA METAB OLIC PANEL anion gap 16.0 mmol/ L 14-22 Not Available [facility] (Lab) [address] [place], [address], 12/14/2022 14:24:11 12/14/19 23 12/14/2022 COMPR EHENS KECIA METAB OLIC PANEL glucose 109 mg/dL 70-99 high Not Available [facility] (Lab) [address] [place], [address], 12/14/2022 14:24:11 12/14/19 23 12/14/2022 COMPR EHENS KECIA METAB OLIC PANEL BUN 17 mg/dL 8-19 Not Available [facility] (Lab) [address] [place], [address], 12/14/2022 14:24:11 12/14/19 23 12/14/2022 COMPR EHENS KECIA METAB OLIC PANEL creatinine 1.74 mg/dL 0.66-1 .25 high Not Available [facility] (Lab) [address] [place], [address], 12/14/2022 14:24:11 12/14/19 23 12/14/2022 COMPR EHENS KECIA METAB OLIC PANEL GFR 29 Refer ence Range : [place] ge GFR Healt hy Adult : >60 [...] or ethni c subgr oups, such as Hisri nics. Outsi de the valid ated casper [...] calcu lator is avail able on the [facility] websi te: [email or web address] :[email or web address] ofess ional s/kdo qi/gf r_cal culat or Not Available [facility] (Lab) [address] [place], [address], 12/14/2022 14:24:11 12/14/19 23 12/14/2022 COMPR EHENS KECIA METAB OLIC PANEL alkaline phosphatase 57 U/L 38-126 Not Available [facility] (Lab) [address] [place], [address], 12/14/2022 14:24:11 12/14/19 23 12/14/2022 COMPR EHENS KECIA METAB OLIC PANEL alanine aminotransfe rase 17 U/L 0-35 Not Available [facility] (Lab) [address] [place], [address], 12/14/2022 14:24:11 12/14/19 23 12/14/2022 COMPR EHENS KECIA METAB OLIC PANEL aspartate aminotransfe rase 26 U/L 15-37 Not Available [facility] (Lab) [address] [place], [address], 12/14/2022 14:24:11 12/14/19 23 12/14/2022 COMPR EHENS KECIA METAB OLIC PANEL bilirubin, total 0.60 mg/dL 0.20-1 .30 Not Available [facility] (Lab) [address] [place], [address], 12/14/2022 14:24:11 12/14/19 23 12/14/2022 COMPR EHENS KECIA METAB OLIC PANEL calcium 9.0 mg/dL 8.4-10 .2 Not Available [facility] (Lab) [address] [place], [address], 12/14/2022 14:24:11 12/14/19 23 12/14/2022 COMPR EHENS KECIA METAB OLIC PANEL total protein 7.7 g/dL 6.3-8. 2 Not Available [facility] (Lab) [address] [place], [address], 12/14/2022 14:24:11 12/14/19 23 12/14/2022 COMPR EHENS KECIA METAB OLIC PANEL albumin 4.3 g/dL 3.0-4. 4 Not Available [facility] (Lab) [address] [place], [address], 12/14/2022 14:24:11 12/14/19 23 12/14/2022 COMPR EHENS KECIA METAB OLIC PANEL globulin 3.4 g/dL 2.6-4. 2 Not Available [facility] (Lab) [address] [place], [address], 12/14/2022 14:24:11 12/14/19 23 12/14/2022 MICRO ALBUM N RNDM W/CRE AT RATIO ur creat 122.62 mg/dL REFER ENCE RANGE NOT ESTAB LISHE D FOR RANDO M URINE CREAT ININE Not Available [facility] (Lab) [address] [place], [address], 12/14/2022 13:55:12 12/14/19 23 12/14/2022 MICRO ALBUM N RNDM W/CRE AT RATIO microalbumin , urine 217.1 mg/L 0.0-16 .6 high Not Available [facility] (Lab) [address] [place], [address], 12/14/2022 13:55:12 12/14/19 23 12/14/2022 MICRO ALBUM [...] S94-S 96, NOVUA RY 2002 Not Available [facility] (Lab) [address] [place], [address], 12/14/2022 13:55:12 03/07/20 23 03/07/2023 MICRO ALBUM N RNDM W/CRE AT RATIO ur creat 133.14 mg/dL REFER ENCE RANGE NOT ESTAB LISHE D FOR RANDO M URINE CREAT ININE Not Available [facility] (Lab) [address] [place], [address], 03/07/2023 14:32:57 03/07/20 23 03/07/2023 MICRO ALBUM N RNDM W/CRE AT RATIO microalbumin , urine 162.5 mg/L 0.0-16 .6 high Not Available [facility] (Lab) [address] [place], [address], 03/07/2023 14:32:57 03/07/20 23 03/07/2023 MICRO ALBUM [...] D BE ABNOR MAL BEFOR E CONSI JNEAE G A PATIE NT TO HAVE CROSS ED ONE OF THESE DIAGN OSTIC THRES HOLDS . REFER ENCE: DIABE BRIANNA CARE, VOL. 26: S94-S 96, 2002 Not Available [facility] (Lab) [address] [place], [address], 03/07/2023 14:32:57 03/07/20 23 03/07/2023 COMPR EHENS KECIA METAB OLIC PANEL sodium 138 mmol/ L 137-14 5 Not Available [facility] (Lab) [address] [place], [address], 03/07/2023 14:33:43 03/07/20 23 03/07/2023 COMPR EHENS KECIA METAB OLIC PANEL potassium 4.9 mmol/ L 3.5-5. 1 Not Available [facility] (Lab) [address] [place], [address], 03/07/2023 14:33:43 03/07/20 23 03/07/2023 COMPR EHENS KECIA METAB OLIC PANEL chloride 105 mmol/ L 98-107 Not Available [facility] (Lab) [address] [place], [address], 03/07/2023 14:33:43 03/07/20 23 03/07/2023 COMPR EHENS KECIA METAB OLIC PANEL carbon dioxide 26 mmol/ L 22-30 Not Available [facility] (Lab) [address] [place], [address], 03/07/2023 14:33:43 03/07/20 23 03/07/2023 COMPR EHENS KECIA METAB OLIC PANEL anion gap 11.9 mmol/ L 14-22 low Not Available [facility] (Lab) [address] [place], [address], 03/07/2023 14:33:43 03/07/20 23 03/07/2023 COMPR EHENS KECIA METAB OLIC PANEL glucose 119 mg/dL 70-99 high Not Available [facility] (Lab) [address] [place], [address], 03/07/2023 14:33:43 03/07/20 23 03/07/2023 COMPR EHENS KECIA METAB OLIC PANEL BUN 25 mg/dL 8-19 high Not Available [facility] (Lab) [address] [place], [address], 03/07/2023 14:33:43 03/07/20 23 03/07/2023 COMPR EHENS KECIA METAB OLIC PANEL creatinine 1.89 mg/dL 0.66-1 .25 high Not Available [facility] (Lab) [address] [place], [address], 03/07/2023 14:33:43 03/07/20 23 03/07/2023 COMPR EHENS KECIA METAB OLIC PANEL GFR 26 Refer ence Range : [place] ge GFR Healt hy Adult : >60 [...] or ethni c subgr oups, such as [facility] nics. Outsi de the valid ated casper [...] calcu lator is avail able on the [facility] websi te: [email or web address] :[email or web address] matthew [email or web address] rg/pr ofess ional s/kdo qi/gf r_cal culat or Not Available [facility] (Lab) [address] [place], [address], 03/07/2023 14:33:43 03/07/20 23 03/07/2023 COMPR EHENS KECIA METAB OLIC PANEL alkaline phosphatase 57 U/L 38-126 Not Available [facility] (Lab) [address] [place], [address], 03/07/2023 14:33:43 03/07/20 23 03/07/2023 COMPR EHENS KECIA METAB OLIC PANEL alanine aminotransfe rase 17 U/L 0-35 Not Available [facility] (Lab) [address] [place], [address], 03/07/2023 14:33:43 03/07/20 23 03/07/2023 COMPR EHENS KECIA METAB OLIC PANEL aspartate aminotransfe rase 29 U/L 15-37 Not Available [facility] (Lab) [address] [place], [address], 03/07/2023 14:33:43 03/07/20 23 03/07/2023 COMPR EHENS KECIA METAB OLIC PANEL bilirubin, total 0.70 mg/dL 0.20-1 .30 Not Available [facility] (Lab) [address] [place], [address], 03/07/2023 14:33:43 03/07/20 23 03/07/2023 COMPR EHENS KECIA METAB OLIC PANEL calcium 9.3 mg/dL 8.4-10 .2 Not Available [facility] (Lab) [address] [place], [address], 03/07/2023 14:33:43 03/07/20 23 03/07/2023 COMPR EHENS KECIA METAB OLIC PANEL total protein 7.5 g/dL 6.3-8. 2 Not Available [facility] (Lab) [address] [place], [address], 03/07/2023 14:33:43 03/07/20 23 03/07/2023 COMPR EHENS KECIA METAB OLIC PANEL albumin 4.2 g/dL 3.0-4. 4 Not Available [facility] (Lab) [address] [place], [address], 03/07/2023 14:33:43 03/07/20 23 03/07/2023 COMPR EHENS KECIA METAB OLIC PANEL globulin 3.3 g/dL 2.6-4. 2 Not Available [facility] (Lab) [address] [place], [address], 03/07/2023 14:33:43 03/07/20 23 03/07/2023 COMPR EHENS KECIA METAB OLIC PANEL A/G ratio 1.3 ratio 1.0-2. 0 Not Available [facility] (Lab) [address] [place], [address], 03/07/2023 14:33:43 03/07/20 23 03/07/2023 PHOSP HORUS phosphorus 4.2 mg/dL 2.5-4. 5 Not Available [facility] (Lab) [address] [place], [address], 03/07/2023 14:33:47 03/07/20 23 03/07/2023 T4 FREE free T4 1.09 NG/dL 0.78-2 .19 Not Available [facility] (Lab) [address] [place], [address], 03/07/2023 14:39:37 03/07/2003/07/2023 T3 FREE free T3 2.4 pg/mL 2.77-5 .27 low Not Available [facility] (Lab) [address] [place], [address], 03/07/2023 14:39:46 03/07/20 23 03/07/2023 TSH thyroid-stim ulating hormone 11.000 uIU/m L 0.465- 4.680 high Not Available [facility] (Lab) [address] [place], [address], 03/07/2023 14:52:02 03/07/20 23 03/07/2023 HEMOG LOBIN A1C HA1C 6.3 % 4.0-6. 0 high Diabe brianna Scree gisele Crite pamela: <5.7% Consi stent with absen ce of diabe brianna 5.7-6 .4% Consi stent with incre ased risk for diabe brianna (pred iabet es) >OR=6 .5% Consi stent with diabe brianna REFER ENCE: Diabe brianna Care 2016, 39( ppl.1 ):s13 -s22 Not Available [facility] (Lab) [address] [place], [address], 03/07/2023 15:53:45 05/13/20 23 05/13/2023 COMPR EHENS KECIA METAB OLIC PANEL sodium 141 mmol/ L 137-14 5 Not Available [facility] (Lab) [address] [place], [address], 05/13/2023 14:34:25 05/13/20 23 05/13/2023 COMPR EHENS KECIA METAB OLIC PANEL potassium 4.4 mmol/ L 3.5-5. 1 Not Available [facility] (Lab) [address] [place], [address], 05/13/2023 14:34:25 05/13/20 23 05/13/2023 COMPR EHENS KECIA METAB OLIC PANEL chloride 101 mmol/ L 98-107 Not Available [facility] (Lab) [address] [place], [address], 05/13/2023 14:34:25 05/13/20 23 05/13/2023 COMPR EHENS KECIA METAB OLIC PANEL carbon dioxide 26 mmol/ L 22-30 Not Available [facility] (Lab) [address] [place], [address], 05/13/2023 14:34:25 05/13/20 23 05/13/2023 COMPR EHENS KECIA METAB OLIC PANEL anion gap 18.4 mmol/ L 14-22 Not Available [facility] (Lab) [address] [place], [address], 05/13/2023 14:34:25 05/13/20 23 05/13/2023 COMPR EHENS KECIA METAB OLIC PANEL glucose 93 mg/dL 70-99 Not Available [facility] (Lab) [address] [place], [address], 05/13/2023 14:34:25 05/13/20 23 05/13/2023 COMPR EHENS KECIA METAB OLIC PANEL BUN 16 mg/dL 8-19 Not Available [facility] (Lab) [address] [place], [address], 05/13/2023 14:34:25 05/13/20 23 05/13/2023 COMPR EHENS KECIA METAB OLIC PANEL creatinine 1.69 mg/dL 0.66-1 .25 high Not Available [facility] (Lab) [address] [place], [address], 05/13/2023 14:34:25 05/13/20 23 05/13/2023 COMPR EHENS KECIA METAB OLIC PANEL GFR 30 Refer ence Range : [place] GFR Healt hy Adult : >60 [...] calcu lator is avail able on the [facility] websi te: [email or web address] :[email or web address] cris/pr ofess ional s/kdo qi/gf r_cal culat or Not Available [facility] (Lab) [address] [place], [address], 05/13/2023 14:34:25 05/13/20 23 05/13/2023 COMPR EHENS KECIA METAB OLIC PANEL alkaline phosphatase 58 U/L 38-126 Not Available [facility] (Lab) [address] [place], [address], 05/13/2023 14:34:25 05/13/20 23 05/13/2023 COMPR EHENS KECIA METAB OLIC PANEL alanine aminotransfe rase 16 U/L 0-35 Not Available [facility] (Lab) [address] [place], [address], 05/13/2023 14:34:25 05/13/20 23 05/13/2023 COMPR EHENS KECIA METAB OLIC PANEL aspartate aminotransfe rase 28 U/L 15-37 Not Available [facility] (Lab) [address] [place], [address], 05/13/2023 14:34:25 05/13/20 23 05/13/2023 COMPR EHENS KECIA METAB OLIC PANEL bilirubin, total 0.70 mg/dL 0.20-1 .30 Not Available [facility] (Lab) [address] [place], [address], 05/13/2023 14:34:25 05/13/20 23 05/13/2023 COMPR EHENS KECIA METAB OLIC PANEL calcium 9.3 mg/dL 8.4-10 .2 Not Available [facility] (Lab) [address] [place], [address], 05/13/2023 14:34:25 05/13/20 23 05/13/2023 COMPR EHENS KECIA METAB OLIC PANEL total protein 7.2 g/dL 6.3-8. 2 Not Available [facility] (Lab) [address] [place], [address], 05/13/2023 14:34:25 05/13/20 23 05/13/2023 COMPR EHENS KECIA METAB OLIC PANEL albumin 4.0 g/dL 3.0-4. 4 Not Available [facility] (Lab) [address] [place], [address], 05/13/2023 14:34:25 05/13/20 23 05/13/2023 COMPR EHENS KECIA METAB OLIC PANEL globulin 3.2 g/dL 2.6-4. 2 Not Available [facility] (Lab) [address] [place], [address], 05/13/2023 14:34:25 05/13/20 23 05/13/2023 COMPR EHENS KECIA METAB OLIC PANEL A/G ratio 1.3 ratio 1.0-2. 0 Not Available [facility] (Lab) [address] [place], [address], 05/13/2023 14:34:25 07/04/20 23 07/04/2023 LIPID PANEL cholesterol 165 mg/dL 140-19 9 NIH RHYS NSUS RECOM MENDA TION FOR JENNIFER STERO L: ADULT CHILD LOW RISK: <200 <170 BORDE RLINE : <200- 239 ----- HIGH RISK: >240 >200 Not Available [facility] (Lab) [address] [place], [address], 07/04/2023 13:44:14 07/04/20 23 07/04/2023 LIPID PANEL triglyceride s 173 mg/dL 0-150 high NIH RHYS NSUS REPOR T RECOM MENDA TION FOR TRIGL YCERI LINO: ADULT CHILD LOW RISK: <150 ----- BODER LINE: 150-1 99 ----- HIGH RISK: >200 ----- Not Available [facility] (Lab) [address] [place], [address], 07/04/2023 13:44:14 07/04/20 23 07/04/2023 LIPID PANEL HDL cholesterol 51 mg/dL 40- Not Available [facility] (Lab) [address] [place], [address], 07/04/2023 13:44:14 07/04/20 23 07/04/2023 LIPID PANEL [...] WILL NOT BE REPOR TERRY. Not Available [facility] (Lab) [address] [place], [address], 07/04/2023 13:44:14 07/04/20 23 07/04/2023 COMPR EHENS KECIA METAB OLIC PANEL sodium 140 mmol/ L 137-14 5 Not Available [facility] (Lab) [address] [place], [address], 07/04/2023 13:44:20 07/04/20 23 07/04/2023 COMPR EHENS KECIA METAB OLIC PANEL potassium 4.8 mmol/ L 3.5-5. 1 Not Available [facility] (Lab) [address] [place], [address], 07/04/2023 13:44:20 07/04/20 23 07/04/2023 COMPR EHENS KECIA METAB OLIC PANEL chloride 102 mmol/ L 98-107 Not Available [facility] (Lab) [address] [place], [address], 07/04/2023 13:44:20 07/04/20 23 07/04/2023 COMPR EHENS KECIA METAB OLIC PANEL carbon dioxide 29 mmol/ L 22-30 Not Available [facility] (Lab) [address] [place], [address], 07/04/2023 13:44:20 07/04/20 23 07/04/2023 COMPR EHENS KECIA METAB OLIC PANEL anion gap 13.8 mmol/ L 14-22 low Not Available [facility] (Lab) [address] [place], [address], 07/04/2023 13:44:20 07/04/20 23 07/04/2023 COMPR EHENS KECIA METAB OLIC PANEL glucose 99 mg/dL 70-99 Not Available [facility] (Lab) [address] [place], [address], 07/04/2023 13:44:20 07/04/20 23 07/04/2023 COMPR EHENS KECIA METAB OLIC PANEL BUN 24 mg/dL 8-19 high Not Available [facility] (Lab) [address] [place], [address], 07/04/2023 13:44:20 07/04/20 23 07/04/2023 COMPR EHENS KECIA METAB OLIC PANEL creatinine 1.83 mg/dL 0.66-1 .25 high Not Available [facility] (Lab) [address] [place], [address], 07/04/2023 13:44:20 07/04/20 23 07/04/2023 COMPR EHENS KECIA METAB OLIC PANEL GFR 27 Refer ence Range : [place] GFR Healt hy Adult : >60 [...] calcu lator is avail able on the [facility] websi te: [email or web address] :[email or web address] rg/pr ofess ional s/kdo qi/gf r_cal culat or Not Available [facility] (Lab) [address] [place], [address], 07/04/2023 13:44:20 07/04/20 23 07/04/2023 COMPR EHENS KECIA METAB OLIC PANEL alkaline phosphatase 70 U/L 38-126 Not Available [facility] (Lab) [address] [place], [address], 07/04/2023 13:44:20 07/04/20 23 07/04/2023 COMPR EHENS KECIA METAB OLIC PANEL alanine aminotransfe rase 16 U/L 0-35 Not Available [facility] (Lab) [address] [facility] [place], [address], 07/04/2023 13:44:20 07/04/20 23 07/04/2023 COMPR EHENS KECIA METAB OLIC PANEL aspartate aminotransfe rase 26 U/L 15-37 Not Available [facility] (Lab) [address] [place], [address], 07/04/2023 13:44:20 07/04/20 23 07/04/2023 COMPR EHENS KECIA METAB OLIC PANEL bilirubin, total 0.50 mg/dL 0.20-1 .30 Not Available [facility] (Lab) [address] [place], [address], 07/04/2023 13:44:20 07/04/20 23 07/04/2023 COMPR EHENS KECIA METAB OLIC PANEL calcium 9.2 mg/dL 8.4-10 .2 Not Available [facility] (Lab) [address] [place], [address], 07/04/2023 13:44:20 07/04/20 23 07/04/2023 COMPR EHENS KECIA METAB OLIC PANEL total protein 6.9 g/dL 6.3-8. 2 Not Available [facility] (Lab) [address] [place], [address], 07/04/2023 13:44:20 07/04/20 23 07/04/2023 COMPR EHENS KECIA METAB OLIC PANEL albumin 3.8 g/dL 3.0-4. 4 Not Available [facility] (Lab) [address] [place], [address], 07/04/2023 13:44:20 07/04/20 23 07/04/2023 COMPR EHENS KECIA METAB OLIC PANEL globulin 3.1 g/dL 2.6-4. 2 Not Available [facility] (Lab) [address] [place], [address], 07/04/2023 13:44:20 07/04/20 23 07/04/2023 COMPR EHENS KECIA METAB OLIC PANEL A/G ratio 1.2 ratio 1.0-2. 0 Not Available [facility] (Lab) [address] [place], [address], 07/04/2023 13:44:20 07/04/20 23 07/04/2023 T4 FREE free T4 0.92 NG/dL 0.78-2 .19 Not Available [facility] (Lab) [address] [place], [address], 07/04/2023 14:08:54 07/04/20 23 07/04/2023 T3 FREE free T3 3.4 pg/mL 2.77-5 .27 Not Available [facility] (Lab) [address] [place], [address], 07/04/2023 14:08:59 07/04/20 23 07/04/2023 HEMOG LOBIN A1C HA1C 5.9 % 4.0-6. 0 Diabe brianna Scree gisele Crite pamela: <5.7% Consi stent with absen ce of diabe brianna 5.7-6 .4% Consi stent with incre ased risk for diabe brianna (pred iabet es) >OR=6 .5% Consi stent with diabe brianna REFER ENCE: Diabe brianna Care 2016, 39(Anderson ppl.1 ):s13 -s22 Not Available [facility] (Lab) [address] [place], [address], 07/04/2023 14:14:23 07/04/20 23 07/04/2023 TSH thyroid-stim ulating hormone 1.210 uIU/m L 0.465- 4.680 Not Available [facility] (Lab) [address] [place], [address], 07/04/2023 14:18:28 03/16/20 23 03/16/2023 US, demetrius y No observ ation record ed. [email or web address] [facility] [address], [place], [address], 04/05/2023 16:52:27 Result Notes None recorded. Problems Name Problem SNOMED Code Status Onset Date Resolution Date Notes Provider Name and Address Organization Details Recorded Time Dyspnea 576275036 Active 2021 Ingrid Nava null, [facility] 3 16:49:46 Postoperative hypothyroidism 16036215 Active 2021 Ingrid Brandy null, [facility] 3 16:49:46 Vitamin D deficiency 06460258 Active 2021 Ingrid Brandy null, [facility] 3 16:49:46 Dyslipidemia 092101802 Active 2021 Ingrid Brandy null, [facility] 3 16:49:46 Hypothyroidism 56047774 Active 2021 Inrgid Brandy null, [facility] 3 16:49:46 Hypokalemia 86704537 Active 2021 Ingrid Brandy null, [facility] 3 16:49:47 Hypercortisoli sm 20358795 Active 2021 Ingrid Branyd null, [facility] 3 16:49:47 Vitamin B12 deficiency (non anemic) 61392258 Active 2021 Ingrid Brandy null, [facility] 3 16:49:47 Prediabetes 480686762 Active 2021 Ingrid Brandy null, [facility] 3 16:49:47 Obesity 167852940 Active 2022 Ingridyaniv Nava null, [facility] 3 16:49:47 Well controlled type 2 diabetes mellitus 418143569 Active 2022 Stephanie Morrissey MD [address], [facility] [address], [place], [address], [employer] 3 12:31:31 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 Please review these documents and add these problems to the patient's chart manually as needed. Problem Notes None recorded. Procedures Surgical History Date Name Laterality Status Provider Name and Address Organization Details Recorded Time 11/09/19 Foot Surgery completed Not Available [facility] 01/05/2023 22:43:30 removal of cardiac pacemaker completed Not Available [facility] 01/05/2023 22:43:30 Pacemaker completed Not Available [facility] 01/05/2023 22:43:30 Hysterectomy completed Not Available [facility] 01/05/2023 22:43:30 cholecystectomy completed Not Available [facility] 01/05/2023 22:43:30 Imaging Results Imaging Date Name Status LastModified by Organiz ation Details LastModified Time 03/16/2023 US, kidney completed [email or web address] [facility] [address], [place], [address], 04/05/2023 16:52:27 Procedure Notes None recorded. Medical Equipment None Reported. Allergies Allergen ID Allergen Name Allergen Category Reaction Reaction Severity Criticality Documentation Date Start Date Code Code System Note Provider Name and Address Organization Details Recorded Time 87611 lisinopri l medicatio n Not available Not available Not available 01/05/2023 48732 RxNorm Not Available [facility] 22:48:44 Medications Name Sig Start Date Stop [...] completed Not Available Not Available Not Available [employer] Ultra Test strips USE TO TEST 2-4 [...] Date Recorded Body mass index (BMI) Body mass index (BMI) Body mass index (BMI) Body height Body height Body height Oxygen saturation Oxygen saturation in Arterial blood by Pulse oximetry Oxygen saturation Oxygen saturation in Arterial blood by Pulse oximetry Oxygen saturation Oxygen saturation in Arterial blood by Pulse oximetry Heart rate Heart rate Heart rate Body temperature Body temperature Body temperature Body weight Body weight Body weight Systolic blood pressure Diastolic blood pressure Systolic blood pressure Diastolic blood pressure Systolic blood pressure Diastolic blood pressure Provider Name and Address Organization Details Last Updated DateTime 3 37.3 kg/m2 40.2 kg/m2 39.1 kg/m2 157.48 cm 157.48 cm 157.48 cm 99 % 99 % 96 % 96 % 96 % 96 % 74 /min 65 /min 58 /min 97.6 [degF] 97.3 [degF] 97.6 [degF] 99601.8 4 g 68943.3 2 g 21879.7 7 g 120 mm[Hg] 75 mm[Hg] 130 mm[Hg] 55 mm[Hg] 140 mm[Hg] 65 mm[Hg] Not Available [facility] 3 22:45:29 Date Recorded Body height Body mass index (BMI) Body weight Body temperature Respiratory rate Heart rate Systolic blood pressure Diastolic blood pressure Provider Name and Address Organization Details Last Updated DateTime 3 157.48 cm 39.8 kg/m2 62277.9 8 g 96.1 [degF] 20 /min 67 /min 130 mm[Hg] 64 mm[Hg] CANDIE Avelar [facility] 3 11:52:51 Date Recorded Body height Body mass index (BMI) Body weight Heart rate Body temperature Systolic blood pressure Diastolic blood pressure Provider Name and Address Organization Details Last Updated DateTime 3 157.48 cm 40.8 kg/m2 219770. 82 g 63 /min 97.1 [degF] 142 mm[Hg] 70 mm[Hg] Nicole Chavis MA [employer] 3 12:11:36 Social History Question Answer Notes LastModified by Organizat ion Details LastModified Time Tobacco Smoking Status Former Smoker Not Available [facility] 01/05/2023 22:43:25 Do You Have An Advance Directive? No Information not available 07/14/2023 What Is Your Level Of Alcohol Consumption? None [id number] Information not available 01/05/2023 Are You Blind Or Do You Have Difficulty Seeing? No Information not available 07/14/2023 Is Blood Transfusion Acceptable In An Emergency? Yes Information not available 07/14/2023 What Is Your Level Of Caffeine Consumption? 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 Yes Age Related Hearing Loss Information not available 07/14/2023 What Type Of Diet Are You Following? REGULAR Information not available 07/14/2023 What Is The Highest Grade Or Level Of School You Have Completed Or The Highest Degree You Have Received? RO20431-7 Information not available 07/14/2023 When Did You Quit Smoking? 1-5yearssinc elastcigaret te [id number] [id number] Information not available 01/05/2023 Are There Any Guns Present In Your Home? No Information not available 07/14/2023 Where Do You Live? Apartment Information not available 07/14/2023 Do You Have A Medical Power Of Manufacturing Engineer Chief? No Information not available 07/14/2023 What Is Your Relationship Status? [id number] Information not available 01/05/2023 Do You Use Your Seat Belt Or Car Seat Routinely? Yes Information not available 07/14/2023 Do You Have Smoke And Carbon Monoxide Detectors In Your Home? Yes Information not available 07/14/2023 Are You Passively Exposed To Smoke? No Information not available 07/14/2023 Do You Feel Stressed (tense, Restless, Nervous, Or Anxious, Or Unable To Sleep At Night)? [id number] Anxiety And Depression Information not available 07/14/2023 Do You Use Any Illicit Or Recreational Drugs? No MIGRATION.41564 [id number] Information not available 01/05/2023 Do You Use Sunscreen Routinely? Yes Information not available 07/14/2023 Has Tobacco Cessation Counseling Been Provided? No MIGRATION.79047 77602 Information not available 01/05/2023 Have You Recently Traveled Abroad? No Information not available 07/14/2023 Do You Have Any Dietary Restrictions? No Information not available 07/14/2023 Do You Or Have You Ever Used Any Other Forms Of Tobacco Or Nicotine? No MIGRATION.02923 94831 Information not available 01/05/2023 Sex: Female Functional [...] LastModified Time Father Malignant neoplasm of brain [id number] Not available 01/05/2023 22:43:33 Mother Chronic obstructive pulmonary disease [id number] Not available 01/05/2023 22:43:33 Medical History Condition Response OBESITY Y ANEMIA/BLOOD DISORDER Y HYPOTHYROIDISM Y KIDNEY DISEASE Y HAVE YOU BEEN HOSPITALIZED OR SEEN IN [place] IN THE PAST YEAR ? Y HYPERTENSION Y HIGH CHOLESTEROL / HYPERLIPIDEMIA Y Gynecological HistoryNo gynecological history recorded. Obstetrics History GPAL:G 3 P 3 0 0 0 Type Value Full Term 3 Total 3 Past Encounters Encounter ID Performer Location Encounter Start Date Encounter Closed Date Diagnosis/Indication Diagnosis SNOMED-CT Code Diagnosis ICD10 Code Diagnosis Note [id number] _ATHENA_M IGRATION_ DEFAULT_1 _1 , 07/23/2021 00:00:00 07/23/2021 16:41:16 [id number] [facility] [address] [place] [address] 09/21/2021 00:00:00 09/21/2021 15:39:35 [id number] _ATHENA_M IGRATION_ DEFAULT_1 _1 , 01/21/2022 00:00:00 01/21/2022 15:21:48 [id number] _ATHENA_M IGRATION_ DEFAULT_1 _1 , 04/29/2022 00:00:00 04/29/2022 15:22:35 [id number] _ATHENA_M IGRATION_ DEFAULT_1 _1 , 05/27/2022 00:00:00 05/27/2022 17:30:55 [id number] _ATHENA_M IGRATION_ DEFAULT_1 _1 , 06/24/2022 00:00:00 06/24/2022 22:01:51 [id number] [facility] [address] [place] [address] 10/15/2022 00:00:00 10/15/2022 21:47:35 [id number] [facility] [address] [place] [address] 12/17/2022 00:00:00 12/17/2022 13:58:24 [id number] Stephanie Morrissey MD [facility] [address] [place] [address] 03/17/2023 11:38:23 03/17/2023 12:30:34 Prediabetes 822962332 R73.03 Patient actually well controlled DM- a1c [...] Recommende d she incorporat e natural insulin energy rater s such as pears, apples, cinnamon, janie and sweet potatoes to help mobilize her endogenous insulin. Recommende d up to 150 minutes of moderate level activity/e xercise weekly. Continue on kerendia for proteinuri a. Repeat K in range and microalbum in trending downward. Obesity 649288850 E66.9 Recommende d GLP1 agonist therapy as she is having trouble at times with cravings of sweets and portion control. Discussed potentiall y reducing total carb intake to 120 grams daily into 4-5 small split meals with addition of healthy protein based snack at bedtime to help reduce home care aide hyperglyce sindhu. She has no hx of [...] meal of that day as tolerated. Hypothyroidism 41601079 E03.9 Will uptitrate unithroid to 100 mcg [...] and minerals and reduce inflammati on. Hypercortisolism 0462587 [address] adrenal completed [...] she chooses to go outside of the [facility] system to obtain labwork she was [...] in her case. She voiced understand ing. [id number] Stephanie Morrissey MD [facility] [address] [place] [address] 07/14/2023 11:51:07 07/14/2023 12:50:55 Well controlled type 2 diabetes mellitus [id number] E11.9 a1c of 5.9% in range- no hypoglycem ia- she is tolerating therapy well. Will uptitrate ozempic to 2 mg once weekly and continue low dose farxiga 5 mg daily. Off metformin due to CKD. Discussed carb counting and how to read food labels. Recommende d patient to utilize the diabetesfo [facility]AN[facility] from the ADA website to help with food preparatio n as this presents ideal carb content per meal so this will make carb counting much easier for patient. Recommende d she incorporat e natural insulin energy rater s such as pears, apples, cinnamon, janie and sweet potatoes to help mobilize her endogenous insulin. Recommende d up to 150 minutes of moderate level activity/e xercise weekly. Hypothyroidism 38191281 E03.9 FT4 in range - continue unithroid [...] and minerals and reduce inflammati on. Hypercortisolism 1565441 [address] adrenal completed [...] Pena Member ID Guarantor Name 03/17/2023 1 [facility] (MEDICARE REPLACEMENT/A DVANTAGE - PPO) [id number] Jacy Mills [id number] Jacy Mills 03/17/2023 2 [place] PUBLIC AID Jacy Mills [id number] Jacy Ward Gene 07/14/2023 1 [facility] (MEDICARE REPLACEMENT/A DVANTAGE - PPO) [id number] Jacy Omer Gene [id number] Jacy Ward Gene 07/14/2023 2 [place] [facility] Jacy Mills [id number] Jacy Mills Notes Date Note Type Note [...] started kerendia for proteinuria. Patient sent to [facility] and per Dr. 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
--- OUTSIDE RECORDS SUMMARY | 2024-12-12 15:21 | XMS_ITS | Encounter Summary ---
Author Organization [facility] Address [address] [place] [address] Phone Care Team Providers Care Subacute Nurse Name Role Phone Jn Velásquez MD Primary Care Provider [phone] Waqas De Leon MD Unavailable [phone] Waqas De Leon MD Unavailable [phone] Cortney Corona MD Unavailable [phone] Stephanie Morrissey MD Primary Care Provider [phone] Jn Velásquez MD Primary Care Provider [phone] Miscellaneous, Not In File Unavailable Unava ilable Daniel Go MD Unavailable [phone] James Cifuentes MD Unavailable [phone] Encounter Details Date Type Department Care Team [...] on file 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
--- OUTSIDE RECORDS SUMMARY | 2024-12-12 15:22 | XMS_ITS | Clinical Summary ---
Author Organization [facility] Address [address] [place] [address] Care Team Providers Care Corporate Lawyer Name Role Phone Unavailable Primary Care Provider [...]
--- OUTSIDE RECORDS SUMMARY | 2024-12-12 15:22 | XMS_ITS | Encounter Summary ---
Author Organization [facility] Address [address] [place] [address] Care Team Providers Care Septic Technician Name Role Phone Unavailable Primary Care Provider Unavailabl e Reason for Visit * Reason Onset Date Comments BARIATRIC 12/07/20242024 Insurance R Álvaro Hurst Encounter Details Date Type Department Care Team (Late st Contact Info) Description 12/07/2024 Telephone [facility] [address] [place] [address] Jessica Mccarthy RN BARIATRIC (2024 Insurance Review/Marissa Hurst/) Social History Tobacco Use Types Packs/Day Years Used Date Smoking Tobacco: Never Assessed Comments Unknown Sex and Gender Information Value Date Recorded Sex Assigned at Not on file Legal Sex Female 11:56 PM CDT Gender Identity Not on file Sexual Orientation Not on file documented as of this encounter Miscellaneous Notes * Telephone Encounter - Marissa Hurst - 12/07/2024 9:46 AM CST 2024 Insurance Review Primary Insurance Plan: [facility] Policy Bariatric Benefit: Portal: [facility] Provider Ref Num: [id number] Health services and associated expenses for the surgical treatment and non- surgical medical treatment of obesity (including morbid obesity) are Not covered except if an integral part of a course of treatment for hypothyroidism, Sharron???s Disease, hypothalamic lesions, diabetes or hypertension or other conditions specifically covered under our guidelines or Medicare guidelines. Contact Log: in process 12/07/24 Print Date: 12/10/24 Marissa Hurst Hedis Registered Nurse Rn [facility] [email or web address] RVISOR HARD CANDY documented in this encounter Plan of Treatment Upcoming Encounters Date Type Department Care Team (Late st Contact Info) Description 12/20/2024 9:00 AM SUPERVISOR HARD CANDY Office Visit [facility] - [address] [facility] [address] [place] [address] Leonor Davenport MD [address] [place] [phone] documented as of this encounter Visit Diagnoses Not on filedocumented in this encounter
--- OUTSIDE RECORDS SUMMARY | 2024-12-12 15:22 | XMS_ITS | Clinical Summary ---
Author Organization [facility] [place] Address [address] [place] [address] SERGEI GILBERT [address] Care Team Providers Care Development Technical Lead Name Role Phone Unavailable Primary Care Provider Unavailabl e Encounters Date Type Department Care Team Description 12/12/2024 Telephone [facility] [address] [place] [address] Jessica Mccarthy RN BARIATRIC (Call to patient/Marissa Hurst/) 12/11/2024 External Device Data STL ABSTRACTION Provider, Abstract 12/11/2024 External Device Data STL ABSTRACTION Provider, Abstract 12/11/2024 External Device Data STL ABSTRACTION Provider, Abstract 12/11/2024 Telephone [facility] - [place] [address] [place] [address] Mary Crocker RN call to insurance carrier (Call to insurance carrier) 12/10/2024 Telephone [facility] [address] [place] [address] Jessica Mccarthy RN BARIATRIC (Call to patient-insurance clarification/Marissa Hurst/) 12/07/2024 Telephone [place] [address] [place] [address] Jessica Mccarthy RN BARIATRIC (2024 Insurance Review/Marissa Hurst/) from Last 3 Months Social History Tobacco Use Types Packs/Day Years Used Date Smoking Tobacco: Never Assessed Comments Unknown Sex and Gender Information Value Date Recorded Sex Assigned at Not on file Legal Sex Female 11:56 PM CDT Gender Identity Not on file Sexual Orientation Not on file Plan of Treatment Upcoming Encounters Date Type Department Care Team (Late st Contact Info) Description 12/20/2024 9:00 AM CATHODE MAKER Office Visit [facility] - [address] [place] [address] [place] [address] Leonor Davenport MD [address] [place] [address] Health Maintenance Due Date Last Done Comments DTAP/TDAP/TD VACCINES (1 - Tdap) 1966 PNEUMOCOCCAL VACCINE 65+ YEARS (1 of 1 - PCV) 09/12/19 97 ZOSTER VACCINE (1 of 2) 1997 OSTEOPOROSIS SCREENING 2012 RSV VACCINE (60+ or ) (1 - 1-dose 75+ series) 2022 INFLUENZA VACCINE (#1) 2024 Medicare Advantage ([place]) Prev entative Visit/Annual Wellness Visit 11/07/[address] [place] [id number] [facility] [id number]
--- OUTSIDE RECORDS SUMMARY | 2024-12-12 15:22 | XMS_ITS | Encounter Summary ---
Author Organization [facility] Address [address] [place] [address] Phone Care Team Providers Care Vpk Teacher Name Role Phone Jn Velásquez MD Primary Care Provider [phone] Waqas De Leon MD Unavailable [phone] Waqas De Leon MD Unavailable [phone] Cortney Corona MD Unavailable [phone] Stephanie Morrissey MD Primary Care Provider [phone] Jn Velásquez MD Primary Care Provider [phone] Miscellaneous, Not In File Unavailable Unava ilable Daniel Go MD Unavailable [phone] James Cifuentes MD Unavailable [phone] Encounter Details Date Type Department Care Team [...] often do you attend chur ch or cheondoism services? Never 05/04/2022 Do you belong to any clubs o r organizations such as adventism groups, unions, fraternal or athletic groups, or [...] place to sleep or slept in a prison (including now)? 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
--- OUTSIDE RECORDS SUMMARY | 2024-12-12 15:22 | XMS_ITS | CONTINUITY OF CARE DOCUMENT ---
Author Name sterlingjud sterlingjud Address Unknown Organization [facility] Address [address] [place] [address] Phone [phone] Care Team Providers Care Patent Drafter Name Role Phone Braulio KING, Roberto Carlos Unavailable [phone] SIOBHAN KING, SUE Unavailable [phone] SUE MCCANN MD Unavailable PROBLEMS Condition Status Date Provider Notes Abnormal nuclear stress test active Roberto Carlos Ramsey MD Shortness of breath active Faisal Carlos MD Hx of tobacco abuse active Penny Melendez Dizziness active Faisal Carlos MD Hypothyroidism active Roberto Carlos Ramsey MD Diaphoresis active Roberto Carlos Ramsey MD Carotid artery stenosis, <50 % ICA b/l active Roberto Carlos Ramsey MD S/P EXPLANTED Biotronik dc (MRI Safe) pm completed - Armani Valencia Leg edema active Faisal Carlos MD Leg pain completed - Staci Diaz NP Sleep apnea, obstructive - o n CPAP active Roberto Carlos Ramsey MD Bradycardia sinus completed - Staci Diaz [...] regurgitation, mild-moderate active Tyrell Berumen PVD active Donnelltheresa Al COPD active Staci Diaz NP Spinal stenosis, lumbar region with neurogenic claudication active Staci Diaz NP Chronic kidney disease stage 2 active Staci Diaz NP Chest pain-type to be determined active Cedric Valdez Orthostatic hypotension active Jason baker ENCOUNTERS Date Type Provider Location Encounter Diag nosis 12/13 - 12/13 In-person encounter Office Visit Roberto Carlos Ramsey MD [facility] Orthostatic hypotension 11/11 - 11/11 In-person encounter Office Visit Roberto Carlos Ramsey MD [facility] 0 - 0 In-person encounter Office Visit Roberto Carlos Ramsey MD [facility] 07/06 - 07/07 In-person encounter Office Visit Roberto Carlos Ramsey MD [facility] Office 05/04 - 05/08 In-person encounter Office Visit Roberto Carlos Ramsey MD [facility] 03/11 - 03/11 In-person encounter Office Visit Roberto Carlos Ramsey MD [facility] 02/25 - 02/25 In-person encounter Office Visit Roberto Carlos Ramsey MD [facility] Chest pain-type to be determined - In-person encounter Office Visit Roberto Carlos Ramsey MD [facility] 06/04 - 06/08 In-person encounter Office Visit Roberto Carlos Ramsey MD [facility] 03/05 - 03/08 In-person encounter Office Visit Roberto Carlos Ramsey MD [facility] 12/25 - 01/04 In-person encounter Office Visit Roberto Carlos Ramsey MD [facility] Leg painBradycardia sinusCOPDSpinal sten osis, lumbar region with neurogenic claudicationChronic kidney disease stage 2 03/13 - 03/13 In-person encounter Office Visit Roberto Carlos Ramsey MD [facility] Hx of tobacco abusePVD 02/14 - 02/18 In-person encounter Office Visit Roberto Carlos Ramsey MD [facility] 02/09 - 02/09 In-person encounter Office Visit Roberto Carlos Ramsey MD [facility] Aortic regurgitation, mild-moderate - In-person encounter Office Visit Roberto Carlos Ramsey MD [facility] 12/22 - 12/22 In-person encounter Office Visit Roberto Carlos Ramsey MD [facility] Hx of tobacco abuse 11/23 - 11/23 In-person encounter Office Visit Roberto Carlos Ramsey MD [facility] Abdominal bruit 03/25 - 04/06 In-person encounter Office Visit Roberto Carlos Ramsey MD [facility] 12/10 - 12/15 In-person encounter Office Visit Roberto Carlos Ramsey MD [facility] Carotid artery stenosis, <50% ICA b/lSle ep apnea, obstructive - on CPAPArthritisFatigueAnxietyDepression 12/09 - 12/17 In-person encounter Office Visit Roberto Carlos Ramsey MD [facility] Carotid artery stenosis, <50% ICA b/lS/P EXPLANTED Biotronik dc (MRI Safe) pmBacteremia S/P PACEMAKER EXPLANTATIONObesity 11/24 - 11/28 In-person encounter Office Visit Roberto Carlos Ramsey MD [facility] HypothyroidismDiaphoresisHypertensionArt hritis - In-person encounter Office Visit Roberto Carlos Ramsey MD [facility] Bacteremia S/P PACEMAKER EXPLANTATION - In-person encounter Office Visit Faisal Carlos MD [facility] Leg edemaSleep apnea, obstructive - on CPAPChronotropic incompetence 12/14 - 12/17 In-person encounter Office Visit Faisal Carlos MD [facility] Carotid artery stenosis, <50% ICA b/l 11/22 - 11/25 In-person encounter Office Visit Faisal Carlos MD [facility] Shortness of breathHx of tobacco abuseDizzinessHypothyroidismDiaphoresis VITAL SIGNS Date Observation Value Provider Body Mass Index (Ratio) 43.53 kg/m2 Cong as [place] blood pressure, cuff size large Ke rri Grnedranestanchristus [facility] blood pressure, diastolic 72 mm[Hg] Ke rri Montez blood pressure, systolic 126 mm[Hg] Laurie ri Tennillenerojelio oxygen saturation, oximetry 91 % Nia Virgie pulse rate 65 /min Nia Titoe [facility] weight E&M 238 [lb_av] Nia Gruenenfe [facility] height E&M 62 [in_i] Nia Tennillenenfe [facility] Body Mass Index (Ratio) 44.81 kg/m2 Cong as [place] blood pressure, cuff size large Ke rri [...] lder Body Mass Index (Ratio) 40.42 kg/m2 [facility], cuff size regular Ke rri Gruenenfelder blood pressure, diastolic 58 mm[Hg] Je dorisifer Fendler [employer] blood pressure, systolic 140 mm[Hg] Oliva nifer Fendler [employer] oxygen saturation, oximetry 93 % Nia Gruenenfelder [...] blood pressure, diastolic 61 mm[Hg] Hallie garcia De [place] blood pressure, systolic 114 mm[Hg] Charlie darius De [place] oxygen saturation, oximetry 94 % Marti De Young pulse rate 70 /min Marti [facility] weight E&M 213 [lb_av] Marti [facility] respiratory rate E&M 16 /min Madelyn silver De [place] blood pressure, cuff size large Hallie garcia [place] height E&M 62 [in_i] Marti galeas Body Mass Index (Ratio) 38.41 kg/m2 Ike Ramsey MD blood pressure, diastolic 80 mm[Hg] Li nkLogic blood pressure, systolic 191 mm[Hg] Verna kLogic blood pressure, diastolic 80 mm[Hg] Ke skyelri Montez blood pressure, systolic 191 mm[Hg] Laurie ri Montez blood pressure, cuff size large Ke rri Montez Inhaled O2 3 L/min Nia Akash [facility] oxygen saturation, oximetry 98 % Nia Herrmann [...] Tomás Matthews respiratory rate E&M 16 /min Richwood Matthews pulse rate 77 /min Tomás Matthews weight E&M 208 [lb_av] Richwood Matthews height E&M 62 [in_i] [facility] Body [facility] Index (Ratio) 36.94 kg/m2 Ike Ramsey MD blood pressure, diastolic 78 mm[Hg] Cookie Harrytia Torres blood pressure, systolic 175 mm[Hg] Radha Carson Torres oxygen saturation, oximetry 95 % GeraldineDawna Torres respiratory rate E&M 18 /min Larissa trinity Torres pulse rate 66 /min Geraldine Nowak carroll weight E&M 202 [lb_av] Geraldine Nowak guzman height E&M 62 [in_i] Geraldine Nowak [facility] Body Mass Index (Ratio) 37.49 kg/m2 Ike Ramsey MD blood pressure, cuff size regular Bj Herrmann blood pressure, diastolic, standing 60 mm [Hg] Nia Herrmann blood pressure, systolic, standing 94 mm[ Hg] Nia Herrmann oxygen saturation, oximetry 93 % Nia Herrmann respiratory rate E&M 18 /min Nia means pulse rate 74 /min Nia green weight E&M 205 [lb_av] Nia Bustos [facility] height E&M 62 [in_i] Nia Bustos [facility] Body Mass Index (Ratio) 38.41 kg/m2 Ike [...] means pulse rate 69 /min Nia Akash [facility] weight E&M 204 [lb_av] Nia Akash [facility] height E&M 62 [in_i] Nia Akash [facility] Body Mass Index (Ratio) 38.95 kg/m2 Dionicio Valencia blood pressure, cuff size regular Ke rri Tennillenerojelio blood pressure, diastolic 70 mm[Hg] Ke rri Gruenerojelio blood pressure, systolic 152 mm[Hg] Laurie Herrmann oxygen saturation, oximetry 97 % Nia Montez respiratory rate E&M 18 /min Nia G miguelangel pulse rate 79 /min Nia Akash [facility] weight E&M 213 [lb_av] Nia Bustos [facility] height E&M 62 [in_i] Nia Bustos er Body Mass Index (Ratio) 38.41 kg/m2 Ike Ramsey MD blood pressure, resting Yes Ike Ramsey MD blood pressure, diastolic 71 mm[Hg] Cookie Torres blood pressure, systolic 168 mm[Hg] Radha Torres oxygen saturation, oximetry 91 % Geraldine Torres respiratory rate E&M 18 /min Larissa Torres pulse rate 70 /min Geraldine hodges weight E&M 210 [lb_av] Geraldine Nowak [facility] height E&M 62 [in_i] Geraldine Nowak [facility] blood pressure, diastolic 80 mm[Hg] Bj Herrmann blood pressure, systolic 144 mm[Hg] Laurie Herrmann pulse rate 52 /min Nia Bustos [facility] oxygen saturation, oximetry 94 % Nia Herrmann [...] Ysabel Norris blood pressure, diastolic 58 mm[Hg] Oh gonzales Norris blood pressure, systolic 136 mm[Hg] Ruthie Norris pulse rate 68 /min Ysabel Norris oxygen saturation, oximetry 96 % Ysabel Norris respiratory rate E&M 15 /min Ysabel Norris Body Mass Index (Ratio) 38.04 kg/m2 [facility] weight E&M 208 [lb_av] Ysabel Norris blood pressure, diastolic 71 mm[Hg] Oh gonzales [facility] blood pressure, systolic 141 mm[Hg] Ruthie sera Norris blood pressure, diastolic, left arm 73 mm [Hg] Ysabel Norris blood pressure, systolic, left arm 131 mm [Hg] Ysabel [facility] blood pressure, diastolic, right arm 71 m m[Hg] Ysabel [facility] blood pressure, systolic, right arm 141 m m[Hg] Ysabel Norris pulse rate 70 /min Ysabel [facility] oxygen saturation, oximetry 98 % Ysabel Norris respiratory rate E&M 15 /min Ysabel [facility] Body Mass Index (Ratio) 39.32 kg/m2 [facility] weight E&M 215 [lb_av] Ysabel Norris blood [...] 0-149 1 cholesterol, serum 156 mg/dL [employer] [phone]/04/1 1 basophil count, absolute 0.1 x10E3/uL [employer] [...] Estab. 1 platelet count 366 X10E3/UL [employer] [phone]/04/1 1 red blood cell distribution width 14.0 [...] 3.5-5.2 1 sodium, serum 141 mmol/L [employer] [phone]/04/1 1 urea nitrogen/creatinine ratio, serum 13 LinkLogic [...] mg/3 mL) pen injector active Zuly Nalluri [employer] gabapentin 600 mg tablet active three times a day Carley Wynn NP Trintellix 20 mg tablet active Carley Wynn NP trazodone 100 mg tablet completed - 07/06 Zuly Nalluri [employer] Farxiga 5 mg tablet active Take 1 [...] mouth once a day 04/18 Carley Wynn [employer] #90, 90 days supply, Prescribed by JUS MEJIA, Filled 12/24/2020 ergocalciferol (vitamin D2) 1,250 mcg (50,000 unit) capsule completed Take 1 capsule by mouth once a week 03/28 - 11/15 Nia Herrmann #4, 28 days supply, Prescribed by SUE MCCANN, Filled 01/18/2021 trazodone 100 mg tablet completed Take 1 tablet by mouth every night 02/19 - 02/25 Carley Wynn [employer] #30, 30 days supply, Prescribed by CARLEY HOPKINS, Filled 02/19/2021 FeroSul 325 mg (65 mg iron) tablet completed Take 1 tablet by mouth twice a day 02/23 - 02/25 Carley Wynn [employer] #60, 30 days supply, Prescribed by XAVI MCCLURE, Filled 02/23/2021 hydrocodone-acetami nophen 10-325 mg tablet active Take 1 tablet by mouth three times a day as needed 02/20 Nia Herrmann #90, 30 days supply, Prescribed by XAVI MCCLURE, Filled 02/24/2021 fluoxetine 20 mg tablet completed Take 1 tablet by mouth every morning 01/13 - 02/25 Carley Wynn [employer] #30, 30 days supply, Prescribed by CARLEY [...] - 06/10 Nia Herrmann VITAMIN D (ERGOCALCIFEROL) 40527 UNIT ORAL CAPSULE completed once a week [...] nfelder smoking, year quit 2018 Carley Wynn [employer] number of years as a smoker 50 a Carley Wynn NP smoking status Former smoker Carley queen [employer] smoking history, tot al pack/day 1 ppd aCrley Wynn [employer] cigarette use yes Carley Lilly velarde [employer] social history E&M S moking History: Justin [...] History: Justin nava is a former smoker. [facility] social history reviewed E&M revi ewed - no changes required [facility] smoking, year quit 2018 Nia Ridleyjez vidal number of years as a smoker 50 a Nia Montez smoking history, tot al pack/day 1 ppd Nia Montez cigarette use yes Nia Francis elder smoking status Former smoker Nia Tennillenicolle pierceelder smoking, year quit 2018 Nai Khaijez entrinityfeld number of years as a [...] E&M revi ewed - no changes required Tyrlel Berumen social history E&M S moking History: Justin nava currently smokes every day. P atcorinne has been counseled to quit. Tyrell Berumen smoking/tobacco cess ation, patient education and counseling yes Tomás Matthews alcohol use no Tomás Matthews cigarette use yes Richwood Matthews smoking status Current every day smoker [...] cess ation, patient education and counseling yes Geraldien Torres alcohol use no Geraldine Nowak susannahguzman [...] Nia lee smoking status Former smoker Nia pier[facility]cople[facility] hospital[facility] social history reviewed E&M revi ewed - [...] Justin nava is a former smoker. 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 [id number] [employer] FAMILY [employer] Medicaid 1 [id number] ADVANCE DIRECTIVES Name Date DISCUSSED - NO DECISION MADE TREATMENT PLAN Date Name Performer [id number],C,w ill check PFT w ill send in breo inhaler for now Cedric Valdez [id number],C,s ays she has persistent fatigue and it has been affecting her routine life w ill check PFT h er Cath showed mild CAD s he has diastolic dysfunction Cedric Valedz [id number],C,c ath 04/2023 F INAL RESULTS: T he [...] LVEDP consistent with diastolic dysfunction Cedricbruno Daniels [id number],C, c arotids: 07/15/22 Mild plaque with less than 50% stenosis of the internal carotid arteries bilaterally. Vertebral flow is antegrade bilaterally. Cedric Daniels [id number],C, B P today: 140/64 P rior BP: 130/80 (07/06/2023) Labs Reviewed: C reat: 2.02 (02/16/2020) C hol: 156 (02/16/2020) HDL: 66 (02/16/2020) Cedricbruno Daniels [id number],C,will check PF T Cerdicbruno Daniels [id number],C, N o recurrent episodes of chest pain [facility] [id number],C,moderate Adam porfirio Nalluri [employer] [id number],C, P FTs: minimal obstructive airways disease and significant decrease in FEV1 when compared to previous study. 6 minute walk test: ambulated 6 minutes. O2 sats 95-96% on room air. H as appointment with family day care provider Zuly Knappri [employer] [id number],C,N o recurrent episodes of chest pain Zuly Ariluri [employer] [id number],C, B P today: 130/80 P rior BP: 160/80 (05/04/2023) H er updated medication list for this problem includes: Amlodipine 5 Mg Tablet (Amlodipine) ..... Take 1 tablet by mouth once a day Hydralazine 50 Mg Tablet (Hydralazine) ..... Take 1 tablet by mouth three times a day Zuly Ariluri [employer] [id number],C, n ot compliant with cpap Zuly Chapmanluri [employer] [id number],C, h as been in contact with [facility] to have weight loss surgery. started on ozempic yesterady Zuly Ariluri [employer] [id number],C, T race bilateral leg edema. on lasix 20 mg Po Zuly Ariluri [employer] [id number],C, c arotids: 07/15/22 Mild plaque with less than 50% stenosis of the internal carotid arteries bilaterally. Vertebral flow is antegrade bilaterally. Zuly Ariluri [employer] [id number],C, H er updated medication list for this problem includes: Levothyroxine 88 Mcg Tablet (Levothyroxine) ..... 1 tablet once a day Zuly Ariluri [employer] [id number],C,Will order 2 week tele monitor Zuly Nalluri [employer] [id number],C, S uggested patient lose more weight. BP [...] once a day Roberto Carlos Ramsey MD [id number],C,l ab tests from 04/19/23 showed creatinine of 1.86 and BUN of 29 Roberto Carlos Ramsey MD [id number],W, H as mild bilateral leg edema. Blue Herrmann [id number],C, Blue serrato [id number],C, S uggested patient lose more weight. BP [...] by mouth once a day Blue Herrmann [id number],S,l ab tests from 04/19/23 showed creatinine of 1.86 and BUN of 29 Blue Herrmann [id number],S, P FTs: minimal obstructive airways disease and significant decrease in FEV1 when compared to previous study. 6 minute walk test: ambulated 6 minutes. O2 sats 95-96% on room air. H er updated medication list for this problem includes: Albuterol Sulfate 90 Mcg/actuation Hfa Aerosol Inhaler (Albuterol sulfate) ..... Inhale 1 puff using inhaler three times a day as needed Blue Herrmann [id number],S, C ontinues to feel fatigued. Blue Herrmann [id number],N, Roberto Carlos pierce MD [id number],W, H er updated medication list for this [...] go to er Roberto Carlos Ramsey MD [id number],C,e cho today C ONCLUSIONS: 1 . Technically [...] Moderate aortic wall calcification. Carley Wynn NP [id number],C, stress test - will await for results [...] experience SOB/HOWELL and fatigue Carley Wynn NP [id number],C,compliant wit h cpap Carley Wynn [employer] [id number],C, B P today: 126/80 P rior BP: 140/58 (02/25/2023) Labs Reviewed: C reat: 2.02 (02/16/2020) C hol: 156 (02/16/2020) HDL: 66 (02/16/2020) Her updated medication list for this problem includes: Hydralazine 50 Mg Tablet (Hydralazine) ..... Take 1 tablet by mouth three times a day Amlodipine 5 Mg Tablet (Amlodipine) ..... Take 1 tablet by mouth once a day [facility] [id number],Cchristina nephrology [facility] [id number],C,on supplement ation. [facility] [id number],C,c arotids: 07/15/22 Mild plaque with less than 50% stenosis of the internal carotid arteries bilaterally. Vertebral flow is antegrade bilaterally. checking nuclear stress test. unable to walk on treadmill d/t back, hip and knee pain. Carley [facility] [id number],C, B P today: 140/58 P rior BP: [...] tablet by mouth once a day Carley ÁlvarezFormerly [facility] [id number],C,. Pt reports that a couple of days [...] and prn SL NTG Carley Wynn NP [id number],C, Roberto Carlos pierce MD [id number],S, H er updated medication list for this problem includes: Hydrochlorothiazide 25 Mg Tablet (Hydrochlorothiazide) ..... Take 1 tablet by mouth once a day Amlodipine 10 Mg Tablet (Amlodipine) ..... Take 1 tablet by mouth once a day Orders: T obacco cessation counseling, 3-10minutes (09772) Roberto Carlos Ramsey MD [id number],C, Roberto Carlos pierce MD [id number],C, O rders: E KG (CPT-66939) Roberto Carlos Ramsey MD [id number],C,C ontinues to be SOB and currently does not know if she needs supplemental O2. I will start her on Albuterol inhaler and Breo ellipta inhaler and see how she does. Will check PFTs and 6 minute walk test . O rders: 9 9215 HIGH 40-54min (CPT-63336) C arotid Duplex Bilateral (CPT-80373) F VC - 13350 (96729) F RC - 69992 (34848) D LCO - 89605 (66472) 6 minute walk test (CPT-58214) Her updated medication list for this problem includes: Amlodipine 10 Mg Tablet (Amlodipine) ..... Take 1 tablet by mouth once a day Hydrochlorothiazide 25 Mg Tablet (Hydrochlorothiazide) ..... 1 tablet by mouth once a day Cedric Valdez [id number],S, O rders: 9 9215 HIGH 40-54min (CPT-04284) C arotid Duplex Bilateral (CPT-11672) F VC - 69401 (17852) F RC - 72970 (32685) D LCO - 78770 (59913) 6 minute walk test (CPT-49220) Cedric Valdez [id number],C, P FTs: minimal obstructive airways disease and [...] as needed Orders: 9 9215 HIGH 40-54min (CPT-88999) C arotid Duplex Bilateral (CPT-44562) F VC - 36647 (10149) F RC - 44820 (79374) D LCO - 23842 (70714) 6 minute walk test (CPT-47511) Cedric Valdez [id number],C,A dvised to cut back salt intake. Will start her on Amlodipine 10 mg and see how she does. Will check carotid duplex as she has mild carotid bruits. BP today: 191/80 P rior BP: 110/70 (03/05/2022) Labs Reviewed: C reat: 2.02 (02/16/2020) C hol: 156 (02/16/2020) HDL: 66 (02/16/2020) Orders: 9 9215 HIGH 40-54min (CPT-20085) C arotid Duplex Bilateral (CPT-00972) F VC - 69580 (68399) F RC - 20365 (38611) D LCO - 39524 (14561) 6 minute walk test (CPT-59459) Her updated medication list for this problem includes: Amlodipine 10 Mg Tablet (Amlodipine) ..... Take 1 tablet by mouth once a day Hydrochlorothiazide 25 Mg Tablet (Hydrochlorothiazide) ..... 1 tablet by mouth once a day Cedric Valdez [id number],S, O rders: 9 9215 HIGH 40-54min (CPT-82265) C arotid Duplex Bilateral (CPT-65234) F VC - 56104 (80171) F RC - 76362 (47729) D LCO - 98651 (79989) 6 minute walk test (CPT-71442) Cedric Valdez [id number],C,H ad telemetry one week: 2 second episode of NSVT. Staci Diaz HUNG [id number],S,T he patient is using CPAP on a regular basis. The patient has been benefiting from therapy and should continue use. Staci Joe PERSAUD [id number],S, H er updated medication list for this problem includes: Hydrochlorothiazide 25 Mg Tablet (Hydrochlorothiazide) ..... 1 tablet by mouth once a day Staci Diaz HUNG [id number],S,e cho shows mild to moderate AVR. Next echo in one year. Staci Diaz HUNG [id number],S,P FTs: minimal obstructive airways disease and significant decrease in FEV1 when compared to previous study. 6 minute walk test: ambulated 6 minutes. O2 sats 95-96% on room air. Staci Diaz HUNG [id number],S, O rders: F VC - 09973 (62490) F RC - 33327 (93275) D LCO - 53282 (60530) 6 minute walk test (CPT-96779) C OMPREHENSIVE METABOLIC PANEL, W/EGFR (77029) C BC (INCLUDES DIFF/PLT) (6399) L IPID PANEL (7600) H EMOGLOBIN A1c (496) B TYPE NATRIURETIC PEPTIDE (BNP) (40981) P ROBNP, N TERMINAL (43039) M onitor - Telemetry (Mobile Cardiac) (CPT-52138) Roberto Carlos Ramsey MD [id number],S,c [place] PFTs O rders: F VC - 07641 (26647) F RC - 82076 (17379) D LCO - 39393 (52266) 6 minute walk test (CPT-79151) C OMPREHENSIVE METABOLIC PANEL, W/EGFR (51471) CBC (INCLUDES DIFF/PLT) (6399) L IPID PANEL (7600) H EMOGLOBIN A1c (496) B TYPE NATRIURETIC PEPTIDE (BNP) (01717) P ROBNP, N TERMINAL (11065) M onitor - Telemetry (Mobile Cardiac) (CPT-77178) Roberto Carlos Ramsey MD [id number],S, O rders: C omplete Echo (CPT-39654) 6 minute walk test (CPT-65377) C OMPREHENSIVE METABOLIC PANEL, W/EGFR (13207) C BC (INCLUDES DIFF/PLT) (6399) L IPID PANEL (7600) H EMOGLOBIN A1c (496) B TYPE NATRIURETIC PEPTIDE (BNP) (93497) P ROBNP, N TERMINAL (30990) M onitor - Telemetry (Mobile Cardiac) (CPT-60456) 9 9213 LTD 20-29min (CPT-33622) Roberto Carlos Ramsey MD [id number],C, O rders: C omplete Echo (CPT-73069) F VC - 42720 (63885) F RC - 93315 (28583) D LCO - 73080 (86311) 6 minute walk test (CPT-64416) C OMPREHENSIVE METABOLIC PANEL, W/EGFR (08392) C BC (INCLUDES DIFF/PLT) (6399) L IPID PANEL (7600) H EMOGLOBIN A1c (496) B TYPE NATRIURETIC PEPTIDE (BNP) (43858) P ROBNP, N TERMINAL (29515) M onitor - Telemetry (Mobile Cardiac) (CPT-57811) 9 9213 LTD 20-29min (CPT-29579) Roberto Carlos Ramsey MD [id number],W,w ill check echo, PFTs, 6 minute walk test, labs. H er updated medication list for this problem includes: Hydrochlorothiazide 25 Mg Tablet (Hydrochlorothiazide) ..... 1 tablet by mouth once a day Orders: C omplete Echo (CPT-59535) 6 minute walk test (CPT-77667) C OMPREHENSIVE METABOLIC PANEL, W/EGFR (75464) C BC (INCLUDES DIFF/PLT) (6399) L IPID PANEL (7600) H EMOGLOBIN A1c (496) B TYPE NATRIURETIC PEPTIDE (BNP) (01662) P ROBNP, N TERMINAL (09774) M onitor - Telemetry (Mobile Cardiac) (CPT-08445) Roberto Carlos Ramsey MD [id number],W,w ill check echo, PFTs, 6 minute walk test, labs. Staic Diaz NP [id number],S,check PFTs maribell Diaz NP [id number],S, Staci andrew NP [id number],S,T he patient is using CPAP on a regular basis. The patient has been benefiting from therapy and should continue use. Staci Diaz NP [id number],W,m od AR per last echo. Will recheck echo Staci Diaz NP [id number],W,h as been in contact with [facility] to have weight loss surgery. Staci Diaz [...] ..... Take 1 tablet by mouth daily [facility] Electrophysiology [facility] Electrophysiology:per nephro Tho [facility] Electrophysiology:stable [facility] Electrophysiology:below baseline [facility] Electrophysiology: T race bilateral leg edema. on lasix 20 mg Po J anuary 2023 r ecommend continued use of lasix, i have instructed the patient to take additional dose if needed for swelling [facility] Electrophysiology:check carpotid study [facility] Electrophysiology:[facility] low dost lung CT given Hx of tobacco abuse. m ild COPD on latest PFTS m inimal diffusion defect on latest PFTs s he states there is minimal benefit from inhalers Jsaon Florence Electrophysiology:Th e patient is using CPAP on [...] mild CAD s he has diastolic dysfunction [facility] Elect[facility]:ca th 04/2023 F INAL RESULTS: [...] with increased LVEDP consistent with diastolic dysfunction [facility] Electrophysiology: c arotids: 07/15/22 Mild plaque with less than 50% stenosis of the internal carotid arteries bilaterally. Vertebral flow is antegrade bilaterally. [facility]: B P today: 140/64 P rior BP: 130/80 (07/06/2023) Labs Reviewed: C reat: 2.02 (02/16/2020) C hol: 156 (02/16/2020) HDL: 66 (02/16/2020) [facility] Elect[facility]iology:will check PFT [facility] Electrophysiology: N o recurrent episodes of chest pain Cedric kimberly Electrophysiology:moderate Richard Silvestre NP Electrophysiology: P FTs: minimal obstructive airways disease and significant decrease in FEV1 when compared to previous study. 6 minute walk test: ambulated 6 minutes. O2 sats 95-96% on room air. H as appointment with family day care provider Zuly Silvestre NP Electrophysiology:No recurrent e pisodes of chest pain Zuly Silvestre NP Electrophysiology: B P today: 130/80 P rior BP: 160/80 (05/04/2023) H er updated medication list for this problem includes: Amlodipine 5 Mg Tablet (Amlodipine) ..... Take 1 tablet by mouth once a day Hydralazine 50 Mg Tablet (Hydralazine) ..... Take 1 tablet by mouth three times a day Zuly Nalluri [employer] Electrophysiology: n ot compliant with cpap Zuly Nalluri [employer] Electrophysiology: h as been in contact with [facility] to have weight loss surgery. started on ozempic yesterady Zuly Nalluri [employer] Electrophysiology: T race bilateral leg edema. on lasix 20 mg Po Zuly Nalluri [employer] Electrophysiology: c arotids: 07/15/22 Mild plaque with less than 50% stenosis of the internal carotid arteries bilaterally. Vertebral flow is antegrade bilaterally. Zuly Nalluri [employer] Electrophysiology: H er updated medication list for this problem includes: Levothyroxine 88 Mcg Tablet (Levothyroxine) ..... 1 tablet once a day Zuly Nalluri [employer] Electrophysiology:Will order 2 w [place] tele monitor Zuly Nalluri [employer] Electrophysiology - 3 month follow up with [...] Telehealth - needs l eft hearty cath [facility] with Dr. Sonny Ramsey MD [facility] Dr. Dennis: H er updated [...] day Orders: T obacco cessation counseling, 3-10minutes (09599) Roberto Carlos Ramsey MD Electrophysiology- Roberto Carlos garcia MD Electrophysiology-: O rders: E KG (CPT-60067) Roberto Carlos Ramsey MD Electrophysiology:Co ntinues to be SOB and currently does not know if she needs supplemental O2. I will start her on Albuterol inhaler and Breo ellipta inhaler and see how she does. Will check PFTs and 6 minute walk test . O rders: 9 9215 HIGH 40-54min (CPT-87161) C arotid Duplex Bilateral (CPT-59814) F VC - 16672 (22592) F RC - 43505 (36968) D LCO - 97520 (37603) 6 minute walk test (CPT-26110) Her updated medication list for this problem includes: Amlodipine 10 Mg Tablet (Amlodipine) ..... Take 1 tablet by mouth once a day Hydrochlorothiazide 25 Mg Tablet (Hydrochlorothiazide) ..... 1 tablet by mouth once a day Roberto Carlos Ramsey MD Electrophysiology: O rders: 9 9215 HIGH 40-54min (CPT-55551) C arotid Duplex Bilateral (CPT-70248) F VC - 84335 (33639) F RC - 43700 (05464) D LCO - 98741 (52044) 6 minute walk test (CPT-22703) Roberto Carlos Ramsey MD Electrophysiology: P FTs: [...] as needed Orders: 9 9215 HIGH 40-54min (CPT-86659) C arotid Duplex Bilateral (CPT-25181) F VC - 84902 (84993) F RC - 52915 (55079) D LCO - 43642 (05518) 6 minute walk test (CPT-86761) Roberto Carlos Ramsey MD Electrophysiology:Ad vised to cut back salt intake. Will start her on Amlodipine 10 mg and see how she does. Will check carotid duplex as she has mild carotid bruits. BP today: 191/80 P rior BP: 110/70 (03/05/2022) Labs Reviewed: C reat: 2.02 (02/16/2020) C hol: 156 (02/16/2020) HDL: 66 (02/16/2020) Orders: 9 9215 HIGH 40-54min (CPT-77828) C arotid Duplex Bilateral (CPT-04645) F VC - 61177 (96262) F RC - 33138 (25801) D LCO - 09987 (16737) 6 minute walk test (CPT-67459) Her updated medication list for this problem includes: Amlodipine 10 Mg Tablet (Amlodipine) ..... Take 1 tablet by mouth once a day Hydrochlorothiazide 25 Mg Tablet (Hydrochlorothiazide) ..... 1 tablet by mouth once a day Roberto Carlos Ramsey MD Electrophysiology: O rders: 9 9215 HIGH 40-54min (CPT-65650) C arotid Duplex Bilateral (CPT-46931) F VC - 19730 (96415) F RC - 05022 (21526) D LCO - 23787 (56116) 6 minute walk test (CPT-46271) Roberto Carlos Ramsey MD Electrophysiology:Hamm d telemetry [...] NP Electrophysiology: O rders: F VC - 43124 (35992) F RC - 67154 (85062) D LCO - 69874 (23523) 6 minute walk test (CPT-29850) C OMPREHENSIVE METABOLIC PANEL, W/EGFR (96065) C BC (INCLUDES DIFF/PLT) (6399) L IPID PANEL (7600) H EMOGLOBIN A1c (496) B TYPE NATRIURETIC PEPTIDE (BNP) (82975) P ROBNP, N TERMINAL (68274) M onitor - Telemetry (Mobile Cardiac) (CPT-33651) Roberto Carlos Ramsey MD Electrophysiology:[facility] PFTs O rders: F VC - 31308 (23782) F RC - 96858 (06287) D LCO - 11683 (78426) 6 minute walk test (CPT-80643) C OMPREHENSIVE METABOLIC PANEL, W/EGFR (55690) CBC (INCLUDES DIFF/PLT) (6399) L IPID PANEL (7600) H EMOGLOBIN A1c (496) B TYPE NATRIURETIC PEPTIDE (BNP) (47578) P ROBNP, N TERMINAL (47318) M onitor - Telemetry (Mobile Cardiac) (CPT-99075) Roberto Carlos Ramsey MD Electrophysiology: O rders: C omplete Echo (CPT-48816) 6 minute walk test (CPT-58246) C OMPREHENSIVE METABOLIC PANEL, W/EGFR (57827) C BC (INCLUDES DIFF/PLT) (6399) L IPID PANEL (7600) H EMOGLOBIN A1c (496) B TYPE NATRIURETIC PEPTIDE (BNP) (98983) P ROBNP, N TERMINAL (28212) M onitor - Telemetry (Mobile Cardiac) (CPT-27091) 9 9213 LTD 20-29min (CPT-48932) Roberto Carlos Ramsey MD Electrophysiology: O rders: C omplete Echo (CPT-06491) F VC - 93751 (07440) F RC - 97991 (84939) D LCO - 28607 (66343) 6 minute walk test (CPT-45689) C OMPREHENSIVE METABOLIC PANEL, W/EGFR (78737) C BC (INCLUDES DIFF/PLT) (6399) L IPID PANEL (7600) H EMOGLOBIN A1c (496) B TYPE NATRIURETIC PEPTIDE (BNP) (31948) P ROBNP, N TERMINAL (88963) M onitor - Telemetry (Mobile Cardiac) (CPT-64514) 9 9213 LTD 20-29min (CPT-20556) Roberto Carlos Ramsey MD Electrophysiology:wi ll check echo, PFTs, 6 minute walk test, labs. H er updated medication list for this problem includes: Hydrochlorothiazide 25 Mg Tablet (Hydrochlorothiazide) ..... 1 tablet by mouth once a day Orders: C omplete Echo (CPT-86359) 6 minute walk test (CPT-02891) C OMPREHENSIVE METABOLIC PANEL, W/EGFR (29155) C BC (INCLUDES DIFF/PLT) (6399) L IPID PANEL (7600) H EMOGLOBIN A1c (496) B TYPE NATRIURETIC PEPTIDE (BNP) (60144) P ROBNP, N TERMINAL (80844) M onitor - Telemetry (Mobile Cardiac) (CPT-05933) Roberto Carlos Ramsey MD Electrophysiology:wi ll check [...] NP Electrophysiology:hamm s been in contact with [facility] to have weight loss surgery. Staci Diaz NP Electrophysiology Ho spital Follow up 14 : s /p DC PPM explantation 08/14/16 with extensive pocket revision due to bacteremia. Penny Melendez Electrophysiology Ho spital Follow up 14 : O rders: A rosemary Duplex Ultrasound (CPT-41204) The following medications were removed from the medication list: Aspirin 81 Mg Oral Tablet (Aspirin) ..... One tab. daily Penny Al Electrophysiology spital Follow up 14 :s/p DC PPM explantation 08/14/16 with extensive pocket revision due to bacteremia. Orders: M onitor - Telemetry (Mobile Cardiac) (CPT-49178) Angelitoguzman Al Electrophysiology spital Follow up 14 : O rders: E KG (CPT-52424) C omplete Echo (CPT-53372) Echo 02/2020 CONCLUSIONS: 1 . There is [...] 2 020-04-16 13:28:20 CDT [facility] 06/2020 P [...] O rders: C OMPREHENSIVE METABOLIC PANEL, W/EGFR (02874) C BC (INCLUDES DIFF/PLT) (6399) L IPID PANEL (7600) T HYROID PANEL (7020) F VC - 71722 (73522) F - 47786 (65076) D O - 57385 (65452) C omplete Echo (CPT-09945) S tress Regadenoson (CPT-84661) Juan Dionicio Electrophysiology: P rior BP: 122/60 [...] daily Orders: C OMPREHENSIVE METABOLIC PANEL, W/EGFR (19772) C BC (INCLUDES DIFF/PLT) (6399) L IPID PANEL (2830) T HYROID PANEL (7020) F VC - 75045 (23519) [facility] - 59282 (28776) D O - 04757 (64187) C omplete Echo (CPT-87307) S tress Regadenoson (CPT-80519) Juan Greenberg Electrophysiology fo llow up: E [...] Tyrell Berumen Electrophysiology - :Orders: E KG (CPT-47928) M obile Cardiac Tele (CPT-19392) S chedule Followup (*) 9 9214 MOD Complex (CPT-90951) Tyrell Berumen Electrophysiology - :Orders: S chedule Followup (*) 9 9214 MOD Complex (CPT-34756) Tyrell Berumen Electrophysiology - :BP today: 142/60 [...] cessation strongly advised. Orders: F VC - 26926 (02683) F RC - 72460 (85964) D LCO - 19756 (15491) S chedule Followup (*) 9 9272 MOD Complex (CPT-97345) Her updated medication list for this problem [...] : O rders: 9 9214 MOD Complex (CPT-35242) S TR - Adenosine (CPT-94693) Roberto Carlos Ramsey MD Electrophysiology Fo llow up : O rders: A rosemary Duplex Ultrasound (AAA) (CPT-38668) Roberto Carlos Ramsey MD Cardiology FOLLOW UP [...] Cardiology Follow up faxed 12/16/16:Orders: S NOMED-CT: [id number] Current Medications Documented (SCT-[id number]) E KG (CPT-09024) M obile Cardiac Tele (CPT-69515) Continues to have some fatigue. Armani Valencia Cardiology Follow up faxed 12/16/16:On 50mcg Levothyroxine daily. Armani Valencia Cardiology Follow up faxed 12/16/16:Orders: S NOMED-CT: [id number] Current Medications Documented (SCT-[id number]) E KG (CPT-37064) M obile Cardiac Tele (CPT-55688) Armani Valencia EP Follow up faxed 10/19/16:Comp [...] MD Cardiology:Orders: A rterial Duplex Bi-Lower EX (CPT-93405) V enous Doppler Bilateral LE - Standing (CPT-17569) Faisal Carlos MD Cardiology:Orders: A rterial Duplex Bi-Lower EX (CPT-53764) V enous Doppler Bilateral LE - Standing (CPT-64317) Faisal Carlos MD Cardiology:There was mild caroti [...] eral Aorta Duplex Ultraso und DLCO - 36173 FRC - 02662 FVC - 64025 Monitor - Telemetry (Mobile Cardiac) Monitor - Telemetry (Mobile Cardiac) PROTHROMBIN TIME WIT H INR LIPID PANEL CBC (INCLUDES DIFF/P LT) BASIC METABOLIC PANE L W/EGFR Stress Regadenoson Complete Echo RPM (remote patient monitoring) Monitor - Telemetry (Mobile Cardiac) 6 minute walk test DLCO - 27248 FRC - 11354 FVC - 60797 Carotid Duplex Bilat eral Monitor - Telemetry (Mobile Cardiac) PROBNP, N TERMINAL B TYPE NATRIURETIC P EPTIDE (BNP) HEMOGLOBIN A1c LIPID PANEL CBC (INCLUDES DIFF/P LT) COMPREHENSIVE METABO LIC PANEL, W/EGFR 6 minute walk test DLCO - 74573 FRC - 24125 FVC - 26236 Complete Echo Aorta Duplex Ultraso und Monitor - Telemetry (Mobile Cardiac) Complete Echo Stress Regadenoson Complete Echo DLCO - 14586 FRC - 60703 FVC - 29601 THYROID PANEL LIPID PANEL CBC (INCLUDES DIFF/P LT) COMPREHENSIVE METABO LIC PANEL, W/EGFR MAGNESIUM DLCO - 67883 FRC - 03862 FVC - 71388 COMPREHENSIVE METABO LIC PANEL, W/EGFR Mobile Cardiac Tele Complete Echo Carotid Duplex Bilat eral DLCO - 38985 FRC - 75572 FVC - 33729 Aorta Duplex Ultraso und (AAA) STR - Adenosine Mobile Cardiac Tele Complete Echo Carotid Duplex Bilat eral Other Test DLCO - 59092 FRC - 48369 FVC - 80476 Mobile Cardiac Tele C-REACTIVE PROTEIN Other SED [...] completed FVC / MVV with bronchodilator - 42661 Roberto Carlos Ramsey MD completed BLOOD COUNT HEMOGLOBIN Roberto Carlos jacob MD completed FRC - [address] MD completed SpO2 w/o 6min walk/titration Roberto Carlos Ramsey MD completed DLCO - [address] MD completed EKG Roberto [...] completed FVC / MVV with bronchodilator - 91531 Roberto Carlos Ramsey MD completed FRC - [address] MD completed SpO2 w/o 6min walk/titration Roberto Carlos Ramsey MD completed SVC - [address] MD completed DLCO - [address] MD completed 6 minute walk test Roberto Carlos garcia MD completed EKG Roberto Carlos street MD completed EKG Roberto Carlos street MD completed 6 minute walk test Roberto Carlos garcia MD completed Spirometry Roberto Carlos street MD completed FVC / MVV with bronchodilator - 36451 Roberto Carlos Ramsey MD completed FRC - [address] MD completed SpO2 w/o 6min walk/titration Roberto Carlos Ramsey MD completed SVC - [address] MD completed DLCO - [address] MD completed EKG Roberto [...] street MD completed FVC / MVV - 58328 Roberto Carlos arriaga MD completed BLOOD COUNT HEMOGLOBIN Roberto Carlos jacob MD completed FRC - [address] MD completed SpO2 w/o 6min walk/titration Roberto Carlos Ramsey MD completed DLCO - [address] MD completed EKG Roberto Carlos street MD completed Schedule Followup Roberto Carlos arriaga MD in 1 yr completed EKG Roberto Carlos street MD completed FVC / MVV with bronchodilator - 23229 Roberto Carlos Ramsey MD completed BLOOD COUNT HEMOGLOBIN Roberto Carlos jacob MD completed FRC - [address] MD completed SpO2 w/o 6min walk/titration Roberto Carlos Ramsey MD completed DLCO - [address] MD completed Schedule Followup Roberto Carlos arriaga MD in 6 mo completed EKG Roberto Carlos street MD completed FVC / MVV with bronchodilator - 74300 Roberto Carlos Ramsey MD completed BLOOD COUNT HEMOGLOBIN Roberto Carlos jacob MD completed FRC - [address] MD completed SpO2 w/o 6min walk/titration Roberto Carlos Ramsey MD completed DLCO - [address] MD completed EKG Roberto Carlos street MD completed SNOMED-CT: 205089895147397 Current Medications Documented Roberto Carlos Ramsey MD completed Stress EKG Julien Ruth MD complete d Regadenoson, 4 units ulius Giancarlo wall MD completed Cardiolite, 2 units ulius Naz pierce MD completed SPECT Images Dian Dennis MD complet ed EKG Roberto Carlos street MD completed SNOMED-CT: 715786620182853 Current Medications Documented Roberto Carlos Ramsey MD completed Mobile Cardiac Telem etry - Tech Roberto Carlos Ramsey MD completed Mobile Cardiac Telem etry - Prof Roberto Carlos Ramsey MD completed Schedule Followup Roberto Carlos arriaga MD In 6 months. completed EKG Roberto Carlos street MD completed SNOMED-CT: 297470888991637 Current Medications Documented Roberto Carlos Ramsey MD completed FVC / MVV with bronchodilator - 60606 Roberto Carlos Ramsey MD completed FRC - [address] MD completed SpO2 - [address] MD completed DLCO - [address] MD completed Mobile Cardiac Telem etry - Tech Kiarra Smith completed Mobile Cardiac Telem etry - Prof Kiarra Simth completed EKG Roberto Carlos street MD completed SNOMED-CT: 109815656155833 Current Medications Documented Roberto Carlos Ramsey MD completed ZIO Inderjitter Carmen arriaga MD completed EKG Roberto Carlos street MD completed SNOMED-CT: 772438831040472 Current Medications Documented Roberto Carlos Ramsey MD completed EKG Roberto Carlos street MD completed SNOMED-CT: 408923845281645 Current Medications Documented Roberto Carlos Ramsey MD completed EKG Roberto Carlos street MD completed SNOMED-CT: 976376852305733 Current Medications Documented Roberto Carlos Ramsey MD completed SNOMED-CT: 677744322330403 Current Medications Documented Faisal Carlos MD completed SNOMED-CT: 605579092391512 Current Medications Documented Faisal Carlos MD completed SNOMED-CT: 919955490 Smoking Cessation Counseling Faisal Carlos MD completed Stress EKG Faisal Carlos MD completed Regadenoson, 4 units Faisal Carlos MD completed Cardiolite, 2 units Faisal Carlos MD c ompleted SPECT Images Lois Giraldo MD compl eted Mobile Cardiac Telem etry - Tech Feli Hughes completed Mobile Cardiac Telem etry - Prof Feli Hughes completed SNOMED-CT: 239058737 Smoking Cessation Counseling Faisal Carlos MD completed EKG Faisal Carlos MD completed SNOMED-CT: 837579385307352 Current Medications Documented Faisal Carlos MD completed
[2024-12-12 15:41] LABS: Anion Gap 9 mmol/L (4-12); Blood Urea Nitrogen 56 mg/dL (7-17); Calcium 8.7 mg/dL (8.4-10.2); Carbon Dioxide 27 mmol/L (22-30); Chloride 106 mmol/L (98-107); Estimated Glomerular Filt Rate 32; Glucose 152 mg/dL (65-110); Potassium 4.7 mmol/L (3.4-5.0); Sodium 142 mmol/L (137-145)
== END 2024-12-12 14:37 | disposition home or self-care (01) ==
LOC: ANHLAB 14:37
PROVIDERS: PCP Family Medicine; Visit Provider Nurse Practitioner Family
DX: E87.5 Hyperkalemia (principal)
CPT/HCPCS: 36415; 80048

== ENCOUNTER 2025-01-03 12:30 | Outpatient (RCR) | payer MEDICARE, MEDICAID, SELFPAY | END 2025-04-02 08:00 | disposition home or self-care (01) | LOC: ANHCPREHAB 12:30 | PROVIDERS: PCP Family Medicine; Visit Provider Internal Medicine Pulmonary Disease | DX: J44.9 Chronic obstructive pulmonary disease, unspecified (principal) | CPT/HCPCS: 94625 ==

== ENCOUNTER 2025-01-31 12:44 | Outpatient (CLI) | payer MEDICARE, MEDICAID, SELFPAY ==
--- NOTE | ~2025-01-31 | US_ITS ---
US soft tissue head and neck 01/31/2025 13:34 Indication: Thyroid cancer status post thyroidectomy Procedure: Ultrasound soft tissue head and neck using grayscale and Doppler ultrasound images Comparison: Ultrasound dated 11/09/2023 Findings: Thyroid is absent. No abnormalities of the thyroid bed are identified. No pathologically en larged lymph nodes. Impression: 1: Unremarkable head and neck ultrasound status post thyroidectomy. Reviewed, dictated and finalized at location A. Impression: 1: Unremarkable head and neck ultrasound status post thyroidectomy.
--- OUTSIDE RECORDS SUMMARY | 2025-01-31 13:28 | XMS_ITS | Clinical Summary ---
Author Organization [facility] Address [address], [place] [address] Phone Care Team Providers Care Tube Bending Machine Operator Name Role Phone Jn Velásquez MD Primary Care Provider [phone] Allergies Active Allergy Reactions Criticality Noted Date [...] 05/29/2020 Active ergocalciferol (VITAMIN D2) 1.25 MG (68342 UT) capsule Take 50,000 Units by mouth [...] tablet 06/27/2022 Active Blood Glucose Monitoring Suppl (Kensho ULTRA 2) w/Device kit 05/28/2022 Active chlorthalidone [...] Comments Pneumococcal PPSV23/PCV13 65 + Years / Low and Medium Risk (2 of 3 - PPSV23 or PCV20) 11/26/2016 11/26/2015 Influenza Vaccine (#1) 2024 Care Teams Tube Bending Machine Operator Relationship Specialty Start Date End Date Jn Velásquez MD [address] [place] [phone] PCP - General Internal Medicine 06/18/20
--- OUTSIDE RECORDS SUMMARY | 2025-01-31 13:28 | XMS_ITS ---
Author Organization [facility] Address [address] [facility] [place] [address] Care Team Providers Care Counselor Aid Name Role Phone zzzzMigration, zzzzProvider Unavailable Unav ailable REASON FOR VISIT EMR-Clive Encounters Encounter Location Date Provider Diagnosis [facility] [address] [facility] [facility] [address] [place] [address] 08/28/2023 zzzzProvider zzzzMigration Plan Of Treatment No Information Progress Notes * Jacy MILLS LDOB: [birth year] (79 yo F)Acc No.[id number]:08/28/2023 Patient: Jacy JAMES Kan :1945 A ge:77 Y S ex:Female Address:[address] [place], [address] Subjective: * Chief Complaints: * E MR-Clive * Medical History: * Surgical History: * Hospitalization/Major Diagno stic Procedure: * Medications: Objective: * Vitals: * Physical Examination: Assessment: Plan: * Treatment: * Procedure Codes: * true * Date: Generated for Printi ng/Faxing/eTransmitting on: 0 01/31/2025 01:28 PM CDT
--- OUTSIDE RECORDS SUMMARY | 2025-01-31 13:28 | XMS_ITS | Clinical Summary ---
Author Organization [facility] Address [address] [place] [address] Care Team Providers Care Furnace Worker Name Role Phone Waqas De Leon MD Unavailable [phone] Waqas De Leon MD Unavailable [phone] Cortney Corona MD Unavailable Jn Velásquez MD Primary Care Provider [phone] Miscellaneous, Not In File Unavailable Unava ilDaniel Mckeon MD Unavailable [phone] James Cifuentes MD Unavailable Allergies Active [...] mg total) by mouth daily 4 Active methylPREDNISolo ne (MEDROL DOSEPACK) 4 mg Dosepack Take as directed on package 1 packet 5 Active Active Problems Problem Noted Date Diagnosed Date Malignant neoplasm of thyroid gland 11/10/2023 Community acquired pneumonia 05/30/2023 CHF (congestive heart failure) 05/30/2023 Neuropathy 05/30/2023 Urinary frequency 05/30/2023 Shortness of [...] Patient need to follow up with her trauma surgeon Dr. Fitch at [facility] on 06/28 Acute pulmonary edema 05/18/20222021 Assessment & Plan (05/26/2022 11:04 AM CDT): [...] on room air- transition to torsemide per trauma surgeon, add low dose potassium supplement. Continue to [...] x- ray. Chronic respiratory failure with hypercapnia 2 09/07/2022 Assessment & Plan (05/24/2022 7:30 AM [...] Encounters Date Type Department Care Team Description 01/18/2025 Telephone [facility] Rheumatology [address] [facility] Advanced Medicine 5th [place] [address] [place] [id number] Zarina Carroll MD Discuss Test Results 01/14/2025 Telephone [facility] Endocrinology Metabolism and Lipid [address] [facility] Medicine 5th [place] [address] [place] [address] Nahed Santoro RMA Appointment (Referral from [facility]) 12/12/2024 Orders Only [facility] Cardiology [address] [place] [address] Herminia Smith NP from Last 3 Months Surgical History Surgery [...] hypothyroidism Chronic kidney disease CHF (congestive heart failure) (HCC) Asthma Emphysema lung (HCC) Family History [...] attend chur ch or synagogue services? Never 05/31/2023 Do you belong to any clubs o r organizations such as mosque groups, unions, fraternal or athletic groups, or [...] place to sleep or slept in a senior living (including now)? No 05/31/2023 Personal Safety Answer Date Recorded Have you ever been in or are you currently in a harmful physical or emotional relationship or is someone making you feel afraid or unsafe? Denies 05/30/2023 Comments Unknown Sex and Gender Information Value Date Recorded Sex Assigned at Not on file Legal Sex Female 7:23 PM [facility] Gender Identity Not on file Sexual Orientation Not on file Obstetrics History Last Filed Vital Signs Vital Sign Reading Time Taken Comments Blood Pressure 123/61 10/10/2024 1:09 PM [facility] Pulse 70 10/10/2024 1:09 PM [facility] Temperature 36.7 C (98 F) 10/10/2024 1:09 PM [facility] Respiratory Rate 20 06/01/2023 11:31 AM CDT Oxygen Saturation 88% 08/10/2024 10:08 AM CDT Inhaled Oxygen Concentration - - Weight 106 kg (233 lb 9.6 oz) 10/10/2024 1:09 PM [facility] Height 156.2 cm (5' 1.5 ) 10/10/2024 1:09 PM [facility] Body Mass Index 43.42 10/10/2024 1:09 PM [facility] Plan of Treatment Health Maintenance Due Date Last Done Comments Depression Screening 1945 Osteoporosis Screening-Bone Density Scan 1945 Hepatitis B Screening 1965 Lung Cancer Screening 1997 Zoster Vaccine (1 of 2) 1997 Well Visit 65+ 2012 Pneumococcal vaccine 65+ (2 of 2 - PPSV23) 01/21/2016 11/26/2015, 11/07/2009 Fall Risk Assessment 06/01/2024 06/01/2023 Covid-19 Vaccine (3 - season) 2024, 01/23/2021 Influenza Vaccine (#1) 2024 08/07/2021, 2019 DTaP/Tdap/Td Vaccine (2 - Td or Tdap) 02/04/2031 Breast Cancer Screening-Mammogram Discontinued 014 Hepatitis C Screening Completed 08/10/2024 Procedures Procedure Name Priority Date/Time Associated Diagnosis Comments CARDIOLOGY DOCUMENT SCAN Routine 12/07/2024 4:14 PM [facility] HEPATITIS PANEL, ACUTE Routine 08/10/2024 12:01 PM CDT Interstitial pulmonary disease (HCC) from Last 3 Months or Most Recently Relevant to Health Maintenance Results * Cardiology Document Scan (12/07/2024 4:14 PM [facility]) Anatomical Region Laterality Modality Other us Herminia Smith NP CV CARDIAC SERVICES PROCEDUR ES Final Result * Hepatitis panel, acute Blood (08/10/2024 12:01 PM CDT) Hep A IgM Nonreactive Nonreactive Hep B core IgM Nonreactive Nonreactive [facility] Hep C Ab Nonreactive Nonreactive [facility] Comment:Antibodies to HCV no t detected. Does NOT exclude the possibility of recent exposure to HCV. Current interpretive data was last revised on 22 HepBsAg Nonreactive Nonreactive [facility] Blood 08/10/2024 12:0 1 PM CDT 08/10/2024 2:23 PM CDT us Zarina Carroll MD LAB MICROBIOLOGY - GENERAL ORDER TATO Final Result [facility] Department [place] [address] from Last 3 Months or Most Recently Relevant to Health Maintenance Insurance [facility] MEDICARE ADVANTAGE IDPA [facility] MED[employer] ADV[employer]AGE [employer]PA [facility] [employer] [employer]PA Advance Directives For more information, please contact: [phone] * Full Code (Latest Code Status on File) Date Activated Date Inactivated Comments 05/30/2023 2:42 AM 06/01/2023 6:25 PM * Full Code Date Activated Date Inactivated Comments 05/30/2023 12:31 AM 05/30/2023 2:42 AM * Full Code Date Activated Date Inactivated Comments 05/05/2022 2:33 PM 05/14/2022 7:09 PM Care Teams Furnace Worker Relationship Specialty Start Date End Date Jn Velásquez MD PCP - General Family Medicine 05/29/23 Waqas De Leon MD Internal Medicine 11/20/21 Waqas De Leon MD Internal Medicine 06/06/19 Cortney Corona MD Referring Physician Surgery 05/14/22 Miscellaneous, Not In File 05/31/23 Daniel Go MD [address] [place] [address] Consulting Physician Interventional Cardiology 05/31/23 [place] [address] [facility] [address] [place] [address] Consulting Physician Pulmonary Disease 05/31/23
--- OUTSIDE RECORDS SUMMARY | 2025-01-31 13:28 | XMS_ITS | Patient Health Record ---
Author Organization [facility] Address [address] [facility] [place] [address] Support Name Relationship Address Phone Jacy Mills Guarantor Unknown [phone] Reason For Referral No Information Plan Of Treatment No Information
--- OUTSIDE RECORDS SUMMARY | 2025-01-31 13:29 | XMS_ITS ---
Author Organization [facility] [employer] Address [address] [place] [address] Care Team Providers Care Can Technician Name Role Phone Sandie Madrid [phone] Allergies Allergen (clinical drug ingredient) Drug/Non Drug Allergy documented on EMR Reaction Allergy Type Onset Date Status lisinopril Lisinopril Unknown Drug Allergy 11/17/2023 Acti ve REASON FOR VISIT f/u, MIPS diagnosis of HTN, Elevated or Hypertensive blood pressure reading, Depression screening positive, exam JH, Functional status reviewed Medications Medication SIG (Take, Route, Frequency, Duration) Notes Start Date End Date Status dexAMETHasone 1 MG Oral 03/19/2024 Unknown Magnesium Oxide (Elemental) 400 MG Oral *Reorder from smsPREP for eRx and Interaction Alerts* 03/19/2024 Unknown Chlorthalidone 25 MG Oral 03/19/2024 Unknown Isosorbide Mononitrate ER 30 MG Oral 03/19/2024 Unknown INSULIN SYRINGE/U-100/1ML/31G X 5/1 6 31G X 5/16 1 ML MISC *Reorder from smsPREP for eRx and Interaction Alerts* 03/19/2024 Unknown DAPAGLIFLOZIN PROPANEDIOL 10 MG TABLET *Reorder from smsPREP for eRx and Interaction Alerts* 03/19/2024 Unknown Atenolol 25 MG Oral 03/19/2024 Unkn own Allopurinol 100 MG Oral 03/19/2024 Unknown Nitroglycerin 0.4 MG Sublingual 03/19/2024 Unknown hydrALAZINE HCl 50 MG Oral 03/19/2024 Unknown Unithroid 75 mcg Oral 03/19/2024 Un known Mounjaro 10 MG/0.5ML Subcutaneous *[facility]* 03/19/2024 Unknown Breo Ellipta 100-25 MCG/INH Inhalation 03/19/2024 Unknown Farxiga 5 MG Oral 03/19/2024 Unknow n Furosemide 20 MG Oral 03/19/2024 Un known amLODIPine Besylate 5 MG Oral 03/19/2024 Unknown rOPINIRole HCl 0.5 MG Oral 03/19/2024 Unknown oxyBUTYnin Chloride ER 10 MG Oral 03/19/2024 Unknown Unithroid 88 mcg Oral 03/19/2024 Un known Korlym 300 mg Oral 03/19/2024 Unkno wn ProAir HFA 108 (90 Base) MCG/ACT Inhalation 03/19/2024 Unknown Azithromycin 250 MG Oral 03/19/2024 Unknown Rosuvastatin Calcium 10 MG Oral 03/19/2024 Unknown KERENDIA 10 MG TABLET *Reorder f [facility] for eRx and Interaction Alerts* 03/19/2024 Unknown Ergocalciferol 1.25 MG (72917 UT) Oral 03/19/2024 Unknown PREGABALIN 200 MG CAPSULE *Reord er from [facility] for eRx and Interaction Alerts* 03/19/2024 Unknown Albuterol Sulfate (2.5 MG/3ML) 0.083% Inhalation 03/19/2024 Unknown Farxiga 10 MG Oral 03/19/2024 Unkno wn hydroCHLOROthiazide 25 MG Oral 03/19/2024 Unknown Breztri Aerosphere 160-9-4.8 MCG/ACT Inhalation *Reorder from [facility] for eRx and Interaction Alerts* 03/19/2024 Unknown Atorvastatin Calcium 40 MG Oral 03/19/2024 Unknown Losartan Potassium 50 MG Oral 03/19/2024 Unknown Azelastine HCl 0.05 % Ophthalmic 03/19/2024 Unknown MOUNJARO 12.5 MG/0.5 ML SUBCUTANEOUS PEN INJECTOR *Reorder from [facility] for eRx and Interaction Alerts* 03/19/2024 Unknown EUTHYROX 125 MCG TABLET *Reorder from [facility] for eRx and Interaction Alerts* 03/19/2024 Unknown amLODIPine Besylate 10 MG Oral 03/19/2024 Unknown Trintellix 20 MG 1 tablet Oral Once a day for 90 days Active Social History Tobacco Use: Social History Observation Description Date Details (start date - stop date) Former Smoker NA - NA Sex Assigned At : Social History Observation Description Sex Assigned At Female Tobacco Control (Standard) Question Answer Notes Tobacco use: Former smoker Vital Signs Blood pressure systolic 159 mm Hg 01/22/20 25 Blood pressure diastolic 65 mm Hg 025 Heart Rate 96 /min 01/21/2025 Height 64.00 in 01/21/2025 Weight 240 lbs 01/21/2025 BMI 41.19 kg/m2 01/21/2025 Height-cm 162.56 cm 01/21/2025 Weight-kg 108.86 kg 01/21/2025 Encounters Encounter Location Date Provider Diagnosis [facility] [employer] [facility] [address] [place] [address] 01/21/2025 Sandie [facility] Benign essential HTN I10 ; Encounter for screening for cardiovascular disorders Z13.6 ; Dietary counseling and surveillance Z71.3 ; Encounter for screening for depression Z13.31 ; Major depressive disorder, recurrent severe without psychotic features F33.2 ; Generalized anxiety disorder F41.1 and Primary insomnia F51.01 Assessments Encounter Date Diagnosis (ICD Code) Assessment Notes Treatment Notes Treatment Clinical Notes Section Notes 01/21/2025 Benign essential HTN (ICD-10 - I10) 01/21/2025 Encounter for screening for cardiovascular disorders (ICD-10 - Z13.6) 01/21/2025 Dietary counseling and surveillance (ICD-10 - Z71.3) 01/21/2025 Encounter for screening for depression (ICD-10 - Z13.31) 01/21/2025 Major depressive disorder, recurrent severe without psychotic features (ICD-10 - F33.2) Common side effects to SSRI medications include headaches, dry mouth/eye, GI upset (including indigestion, nausea, diarrhea), sleeping problems (insomnia or drowsiness), decreased libido, blurred vision, dizziness. Generally, side effects will subside or lessen with time and are common during drug initiation and dose changes. If they persist please contact the office. 01/21/2025 Generalized anxiety disorder (ICD-10 - F41.1) 01/21/2025 Primary insomnia (ICD-10 - F51.01) 01/21/2025 Other Overall stable, declines need for medication adjustment, cont trintellix 20mg daily Patient educated on all medications including potential benefits, side effects, risks. Educated on proper dosing schedule and importance of compliance. -Assessment and treatment plan reviewed with patient. -Compliance with treatment plan importance discussed. -Discussed the risks/benefits of this medication -Discussed medication side effects. -Contact office if symptoms worsen. -Discussed that it can take up to 6-8 weeks to see full therapeutic effects of psychotropic medications. -Crisis prevention hotline 988. Plan Of Treatment Medication Medication Name Sig Start Date Stop Date Notes Trintellix 20 MG 1 tablet Oral Once a day for 90 days Treatment Notes Assessment Notes Major depressive disorder, [...] they persist please contact the office. Other Overall stable, declines need for medication adjustment, cont trintellix 20mg daily Patient educated on all medications including potential benefits, side effects, risks. Educated on proper dosing schedule and importance of compliance. Next Appt Details Follow Up: 6 Months, Reason: med f/u Provider Name:Sandie Madrid, 07/22/2025 01:00:00 PM, [address] [facility], [facility] [address], [place], [address], Progress Notes * JESU HARLEY LDOB: [birth year] (79 yo F)Acc No.[id number]:01/21/2025 Patient: JESU JAMES Provider: Pablo MADRID PMHNP :1945 A ge:79 Y S ex:Female Date:01/21/2025 Address:[facility] [address], [facility] Subjective: * Chief Complaints: * F /uMIPS diagnosis of HTNElevated or Hypertensive blood pressure readingDepression screening positiveexam JHFunctional status reviewed * HPI: H istory of Presenting Problem: Medication Side Effects d enies. Anxiety w ith excessive worry-stable . Depression R ates depression 2/10 with 10 being most severe. Denies SI. . Mood lability n o hx benoit. Psychosis n o hx psychosis. Suicidal ideation d enies. Here for follow up. No medication changes made last apt. Reports she is doing alright. 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 Continues to have relationship stressors with daughter. She voices feeling lonely some days. Although states the depression is overall stable most days . Denies feeling hopeless or helpless, no suicidal ideation. Anxiety is stable, denies recent panic attacks. Sleep is fair, getting about 7-8 hours nightly. Energy is fair. Appetite is good. D epression screening: PHQ-9 L ittle interest or pleasure in doing things?More than half the days F eeling down, depressed, or hopeless M ore than half the days T rouble falling or staying asleep, or sleeping too much S everal days F eeling tired or having little energy M ore than half the days P oor appetite or overeating S ever F eeling bad about yourself or that you are a failure, or have let yourself or your family down S ever T rouble concentrating on things, such as reading the newspaper or watching television M ore than half the days M oving or speaking so slowly that other people could have noticed; or the opposite, being so fidgety or restless that you have been moving around a lot more than usual M ore than half the days T houghts that you would be better off or of hurting yourself in some way N ot at all T otal Score 1 3 I nterpretation M oderate Depression Intervention D epression Screening Findings P ositve F ollow-Up for Depression M ental health treatment assessment, Patient follow-up to return when and if necessary S uicide Risk Assessment Performed _ A dditional Evaluation for Depression P sychiatric interview and evaluation N jacob of the standardized tool used for adult depression screening: P atient Health Questionnaire (PHQ-9) D epression Screening: DUGLAS-7 (2018 Edition) F eeling nervous, anxious, or on edge M ore than half the days N ot being able to stop or control worrying?Nearly every day W orrying too much about different things N early every day T rouble relaxing M ore than half the days B eing so restless that it is hard to sit still S everal days B ecoming easily annoyed or irritable M ore than half the days T otal DUGLAS-7 Score 1 3 I nterpretation of Total ( 10 to 14) Moderate * ROS: P sychiatric: Patient denies s uicidal thoughts, benoit, psychosis, auditory / visual hallucinations, delusions, psychosis, irritability. P atient complains of a nxiety. C rudy S katelynn DELGADO for details. P atient not eligible due to active diagnosis of hypertension: G 9744. * Medical History: * Surgical History: R emoval of gallbladder (31687) Cosmetic surgery 11/07/1999 * Hospitalization/Major Diagno stic Procedure: * Family History: M other: Depressive disorder . D aughter: Anxiety disorder . * Social History: T obacco Use: T obacco Control (Standard) T obacco use: F ormer smoker M igrated Social History: M igrated Social History: Alcohol Intake: None 09/09/2020,Tobacco Years: Former smoker 12/16/2022,Smoking Status: 52 11/17/2023. M iscellaneous: A dvance Care Planning A dvance Directive F ULL CODE * Medications: T akingTrintellix 20 MG Tablet 1 tablet Oral Once a day Taking Trintellix 20 MG Tablet 1 tablet Oral Once a day UnknownamLODIPine Besylate 10 MG Tablet Oral Atorvastatin Calcium 40 MG Tablet Oral Azelastine HCl 0.05 % Solution Ophthalmic Losartan Potassium 50 MG Tablet Oral EUTHYROX 125 MCG TABLET , Notes to Pharmacist: *Reorder from smsPREP for eRx and Interaction Alerts*MOUNJARO 12.5 MG/0.5 ML SUBCUTANEOUS PEN INJECTOR , Notes to Pharmacist: *Reorder from [facility] for eRx and Interaction Alerts*Farxiga 10 MG Tablet Oral Breztri Aerosphere 160-9-4.8 MCG/ACT Aerosol Inhalation , Notes to Pharmacist: *Reorder from [facility] for eRx and Interaction Alerts*hydroCHLOROthiazide 25 MG Tablet Oral Albuterol Sulfate (2.5 MG/3ML) 0.083% Nebulization Solution Inhalation PREGABALIN 200 MG CAPSULE , Notes to Pharmacist: *Reorder from [facility] for eRx and Interaction Alerts*Azithromycin 250 MG Tablet Oral ProAir HFA 108 (90 Base) MCG/ACT Aerosol Solution Inhalation KERENDIA 10 MG TABLET , Notes to Pharmacist: *Reorder from [facility] for eRx and Interaction Alerts*Rosuvastatin Calcium 10 MG Tablet Oral Ergocalciferol 1.25 MG (05119 UT) Capsule Oral rOPINIRole HCl 0.5 MG Tablet Oral oxyBUTYnin Chloride ER 10 MG Tablet Extended Release 24 Hour Oral Korlym 300 mg Tablet Oral Unithroid 88 mcg Tablet Oral amLODIPine Besylate 5 MG Tablet Oral Unithroid 75 mcg Tablet Oral Breo Ellipta 100-25 MCG/INH Aerosol Powder Breath Activated Inhalation Mounjaro 10 MG/0.5ML Solution Pen-injector Subcutaneous , Notes to Pharmacist: *Reorder from [facility] for eRx and Interaction Alerts*Furosemide 20 MG Tablet Oral Farxiga 5 MG Tablet Oral DAPAGLIFLOZIN PROPANEDIOL 10 MG TABLET , Notes to Pharmacist: *Reorder from [facility] for eRx and Interaction Alerts*Allopurinol 100 MG Tablet Oral Atenolol 25 MG Tablet Oral hydrALAZINE HCl 50 MG Tablet Oral Nitroglycerin 0.4 MG Tablet Sublingual Sublingual Magnesium Oxide (Elemental) 400 MG Tablet Oral , Notes to Pharmacist: *Reorder from [facility] for eRx and Interaction Alerts*dexAMETHasone 1 MG Tablet Oral Isosorbide Mononitrate ER 30 MG Tablet Extended Release 24 Hour Oral Chlorthalidone 25 MG Tablet Oral INSULIN SYRINGE/U-100/1ML/31G X 5/1 6 31G X 16 1 ML MISC , Notes to Pharmacist: *Reorder from [facility] for eRx and Interaction Alerts*Medication List reviewed and reconciled with the patientUnknown amLODIPine Besylate 10 MG Tablet Oral Unknown Atorvastatin Calcium 40 MG Tablet Oral Unknown Azelastine HCl 0.05 % Solution Ophthalmic Unknown Losartan Potassium 50 MG Tablet Oral Unknown EUTHYROX 125 MCG TABLET , Notes to Pharmacist: *Reorder from [facility] for eRx and Interaction Alerts*Unknown MOUNJARO 12.5 MG/0.5 ML SUBCUTANEOUS PEN INJECTOR , Notes to Pharmacist: *Reorder from [facility] for eRx and Interaction Alerts*Unknown Farxiga 10 MG Tablet Oral Unknown Breztri Aerosphere 160-9-4.8 MCG/ACT Aerosol Inhalation , Notes to Pharmacist: *Reorder from [facility] for eRx and Interaction Alerts*Unknown hydroCHLOROthiazide 25 MG Tablet Oral Unknown Albuterol Sulfate (2.5 MG/3ML) 0.083% Nebulization Solution Inhalation Unknown PREGABALIN 200 MG CAPSULE , Notes to Pharmacist: *Reorder from [facility] for eRx and Interaction Alerts*Unknown Azithromycin 250 MG Tablet Oral Unknown ProAir HFA 108 (90 Base) MCG/ACT Aerosol Solution Inhalation Unknown KERENDIA 10 MG TABLET , Notes to Pharmacist: *Reorder from [facility] for eRx and Interaction Alerts*Unknown Rosuvastatin Calcium 10 MG Tablet Oral Unknown Ergocalciferol 1.25 MG (88195 UT) Capsule Oral Unknown rOPINIRole HCl 0.5 MG Tablet Oral Unknown oxyBUTYnin Chloride ER 10 MG Tablet Extended Release 24 Hour Oral Unknown Korlym 300 mg Tablet Oral Unknown Unithroid 88 mcg Tablet Oral Unknown amLODIPine Besylate 5 MG Tablet Oral Unknown Unithroid 75 mcg Tablet Oral Unknown Breo Ellipta 100-25 MCG/INH Aerosol Powder Breath Activated Inhalation Unknown Mounjaro 10 MG/0.5ML Solution Pen-injector Subcutaneous , Notes to Pharmacist: *Reorder from [facility] for eRx and Interaction Alerts*Unknown Furosemide 20 MG Tablet Oral Unknown Farxiga 5 MG Tablet Oral Unknown DAPAGLIFLOZIN PROPANEDIOL 10 MG TABLET , Notes to Pharmacist: *Reorder from [facility] for eRx and Interaction Alerts*Unknown Allopurinol 100 MG Tablet Oral Unknown Atenolol 25 MG Tablet Oral Unknown hydrALAZINE HCl 50 MG Tablet Oral Unknown Nitroglycerin 0.4 MG Tablet Sublingual Sublingual Unknown Magnesium Oxide (Elemental) 400 MG Tablet Oral , Notes to Pharmacist: *Reorder from [facility] for eRx and Interaction Alerts*Unknown dexAMETHasone 1 MG Tablet Oral Unknown Isosorbide Mononitrate ER 30 MG Tablet Extended Release 24 Hour Oral Unknown Chlorthalidone 25 MG Tablet Oral Unknown INSULIN SYRINGE/U-100/1ML/31G X 5/1 6 31G X 5/16 1 ML MISC , Notes to Pharmacist: *Reorder from [facility] for eRx and Interaction Alerts*Medication List reviewed and reconciled with the patient * Allergies: L isinopril: Allergy - Onset Date 11/17/2023no[Allergies Verified] Objective: * Vitals: B P:159/65mm Hg, HR:96/min, Wt:240lbs, Wt-k.86 kg, Ht: 64.00 in, Ht-cm: 162.56 cm, BMI:41.19Index, Body Surface Area: 2.21. * Examination: P sychiatry: Dementia S afety concern screening for dangerousness to self and environment risks provided: Y es Appearance: w ell-groomed. Abnormal body movements: n one. Affect / mood: a ppropriate. Attention: g ood. Attitude: c ooperative. Homicidal ideation: n one. Suicidal ideation: n one. Degree of awareness of surroundings: w ithin normal limits.? Delusions: n o. Hallucinations: n o. Insight: g ood. Judgement: g ood. Orientation: a wake, alert and oriented x 3. Perceptual disorders: n o perceptual disorder noted. Psychomotor activity: w ithin normal range. Speech / language: n ormal rate, volume, and articulation (RVR), clear and coherent, appropriate pitch/modulation. Thought content: a ppropriate. Thought process: i ntact. F unctional Assessment: Corado Index of ADL S core: 6 1 point for independence, 0 for help Physical Functioning P ersonal hygiene: including combing hair, brushing teeth, shaving, applying makeup, washing/drying face and hands (exclude baths and showers)?Independent (1) B athing: how client takes full-body bath/shower or sponge bath (exclude washing of back and hair). Includes how each part of body is bathed: arms, upper and lower legs, chest, abdomen, perineal area. (code for most dependent episode in last 7 days) I ndependent D ressing upper body: how client dresses and undresses (street clothes, underwear) above the waist, includes prostheses, orthotics, fasteners, pullovers, etc. I ndependent E ating - Including taking in food by any method, including tube feedings I ndependent T oilet use: including using the toilet room or commode, bedpan, urinal, transferring on/off toilet, cleaning self after toilet use or incontinent episode, changing pad, managing any special devices required (ostomy or catheter), and adjusting clothes. I ndependent T ransfer: including moving to and between surfaces--to/from bed, chair, wheelchair, standing position (excludes to/from bath/toilet) I ndependent C ontinence: I ndependent (1) 1 point for independence, 0 for help. N eurological: Dementia C aregiver education and support provided Y es Assessment: * Assessment: 1. M ajor depressive disorder, recurrent severe without psychotic features - F33.2 (Primary)? 2. B enign essential HTN - I10 3 . E ncounter for screening for cardiovascular disorders - Z13.6 4 . D ietary counseling and surveillance - Z71.3 5 . E ncounter for screening for depression - Z13.31 6 .?Generalized anxiety disorder - F41.1 7 . P rimary insomnia - F51.01 ? Plan: * Treatment: 2. O thers Notes: Overall stable, declines need for medication adjustment, cont trintellix 20mg daily Patient educated on all medications including potential benefits, side effects, risks. Educated on proper dosing schedule and importance of compliance. Clinical Notes: -Assessment and treatment plan reviewed with patient. -Compliance with treatment plan importance discussed. -Discussed the risks/benefits of this medication -Discussed medication side effects. -Contact office if symptoms worsen. -Discussed that it can take up to 6-8 weeks to see full therapeutic effects of psychotropic medications. -Crisis prevention hotline 988. * Procedure Codes: G 9744 Pt not keely d/t act dig [id number] Funct status past 12 [id number] ASSESSMENT OF AND CARE PLANNING FOR A PATIENT WITH COGNITIVE [id number] PREHTN/HTN BP DOC INDCD F/U [id number] BEHAV ASSMT W/SCORE & DOCD/STAND [id number] CLIN DEPRESSION SCREEN [id number] MOST RECENT SYSTOLIC BP >= 140MM [id number] VISIT COMPLEXITY INHERENT TO ONGOING CARE RELATED TO A PATIENT'S SINGLE, SERIOUS CONDITION OR A COMPLEX CONDITION * Preventive Medicine: Counseling: B P Management: FIRST HYPERTENSIVE BP READING FOLLOW-UP PLAN: F ollow-up 1 month Follow up with your PCP LIFESTYLE RECOMMENDATION: L ifestyle education REFERRAL TO ALTERNATIVE / PRIMARY CARE PROVIDER: R eferral to general medical service WEIGHT REDUCTION RECOMMENDATION: W eight-reducing diet education DIETARY RECOMMENDATIONS: D iet education Dietary Healthy-Heart Diet * Follow Up: 6 Months (Reason: med f/u) * Billing Information: * Visit Code: 38435 OFFICE OUTPATIENT VISIT 15 MINUTES EXPANDED HISTORY AND EXAM/LOW MEDICAL DECISION MAKING. * Procedure Codes: G9744 Pt not keely d/t act dig htn. G9916 Funct status past 12 months. 31611 ASSESSMENT OF AND CARE PLANNING FOR A PATIENT WITH COGNITIVE IMPAIRMENT. G8950 PREHTN/HTN BP DOC INDCD F/U DOC. 71449 BEHAV ASSMT W/SCORE & DOCD/STAND INSTRUMENT. G8431 CLIN DEPRESSION SCREEN DOC. G8753 MOST RECENT SYSTOLIC BP >= 140MM HG. G2211 VISIT COMPLEXITY INHERENT TO ONGOING CARE RELATED TO A PATIENT'S SINGLE, SERIOUS CONDITION OR A COMPLEX CONDITION. * Sign off status: Completed true * Provider: CHRISTIANO ROWELL Date: 0 01/21/2025 Generated for Александр wooten/Stevie/Jose Mitting on: 0 01/31/2025 01:28 PM CDT History and Physical Notes * HPI (History of Present Illness) Category Sub-Category Detail Notes Category Not es History of Presenting Problem Anxiety with excessive worry-stable Here for follow up. No medication changes made last apt. Reports she is doing alright. 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 Continues to have relationship stressors with daughter. She voices feeling lonely some days. Although states the depression is overall stable most days . Denies feeling hopeless or helpless, no suicidal ideation. Anxiety is stable, denies recent panic attacks. Sleep is fair, getting about 7-8 hours nightly. Energy is fair. Appetite is good. Depression Rates depression 2/1 0 with 10 being most severe. Denies SI. Suicidal ideation denies Psychosis no hx psychosis Mood lability no hx benoit Medication Side Effects denies Depression screening PHQ-9 Little inte rest or pleasure in doing things: More than half the days Feeling down, depressed, or hopeless: Mo re than half the days Trouble falling or staying asleep, or sl eeping too much: Several days Feeling tired or having little energy: M ore than half the days Poor appetite or overeating: Several day s Feeling bad about yourself o r that you are a failure, or have let yourself or your family down: Several days Trouble concentrating on thi ngs, such as reading the newspaper or watching television: More than half the days Moving or speaking so slowly that other people could have noticed; or the opposite, being so fidgety or restless that you have been moving around a lot more than usual: More than half the days Thoughts that you would be b heraclio off or of hurting yourself in some way: Not at all Total Score: 13 Interpretation: Moderate Depression Intervention Depression Screening Findings: P ositve Follow-Up for Depression: [facility] treatment assessment, Patient follow-up to return when and if necessary Suicide Risk Assessment Performed: Additional Evaluation for Depression: Ps ychiatric interview and evaluation Name of the standardized too l used for adult depression screening:: Patient Health Questionnaire (PHQ-9) Depression Screening DUGLAS-7 (2018 Edition) Feelin g nervous, anxious, or on edge: More than half the days Not being able to stop or control worryi ng: Nearly every day Worrying too much about different things : Nearly every day Trouble relaxing: More than half the day s Being so restless that it is hard to sit still: Several days Becoming easily annoyed or irritable: Mo re than half the days Total DUGLAS-7 Score: 13 Interpretation of Total: (10 to 14) Mode rate Examination Category Sub-Category Detail Notes Category Not es Psychiatry Appearance: well-groomed Attitude: cooperative Psychomotor activity: within normal rang e Abnormal body movements: none Attention: good Degree of awareness of surroundings: wit hin normal limits Orientation: awake, alert and zhane ented x 3 Affect / mood: appropriate Speech / language: normal rate, volume, and articulation (RVR), clear and coherent, appropriate pitch/modulation Insight: good Judgement: good Thought process: intact Thought content: appropriate Perceptual disorders: no perceptual diso rder noted Suicidal ideation: none Homicidal ideation: none Delusions: no Hallucinations: no Dementia Safety concern scree gisele for dangerousness to self and environment risks provided:: Yes Neurological Dementia Caregiver education and support provided: Yes Functional Assessment Corado Index of ADL Score:: 6 1 point for independence, 0 for help 1 point for independence, 0 for help Physical Functioning Personal hygiene: i ncluding combing hair, brushing teeth, shaving, applying makeup, washing/drying face and hands (exclude baths and showers): Independent (1) Bathing: how client takes fu ll-body bath/shower or sponge bath (exclude washing of back and hair). Includes how each part of body is bathed: arms, upper and lower legs, chest, abdomen, perineal area. (code for most dependent episode in last 7 days): Independent Dressing upper body: how cli ent dresses and undresses (street clothes, underwear) above the waist, includes prostheses, orthotics, fasteners, pullovers, etc.: Independent Eating - Including taking in food by any method, including tube feedings: Independent Toilet use: including using the toilet room or commode, bedpan, urinal, transferring on/off toilet, cleaning self after toilet use or incontinent episode, changing pad, managing any special devices required (ostomy or catheter), and adjusting clothes.: Independent Transfer: including moving t o and between surfaces--to/from bed, chair, wheelchair, standing position (excludes to/from bath/toilet): Independent Continence:: Independent (1)
--- OUTSIDE RECORDS SUMMARY | 2025-01-31 13:29 | XMS_ITS | Encounter Summary ---
Author Organization [facility] Address [address] [place] [address] Phone Care Team Providers Care Accountant Budget Name Role Phone Jn Velásquez MD Primary Care Provider [phone] Waqas De Leon MD Unavailable [phone] Waqas De Leon MD Unavailable [phone] Cortney Corona MD Unavailable [phone] Stephanie Morrissey MD Primary Care Provider [phone] Jn Velásquez MD Primary Care Provider [phone] Miscellaneous, Not In File Unavailable Unava ilDaniel Mckeon MD Unavailable [phone] James Cifuentes MD Unavailable [phone] Encounter Details Date Type Department Care Team [...] on file 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
--- OUTSIDE RECORDS SUMMARY | 2025-01-31 13:29 | XMS_ITS ---
Author Organization [facility] Address [address] [place] [address] Care Team Providers Care High School Social Science Teacher Name Role Phone zzzzMigration, zzzzProvider Unavailable Unav ailable REASON FOR VISIT EMR-Clive Encounters Encounter Location Date Provider Diagnosis [facility] [address] [place] [address] 08/27/2023 zzzzProvider zzzzMigration Plan Of Treatment No Information Progress Notes * Jacy MILLS LDOB: [birth year] (79 yo F)Acc No.[id number]:08/27/2023 Patient: Jacy JAMES Kan :1945 A ge:77 Y S ex:Female Address:[address] [place], [address] Subjective: * Chief Complaints: * E MR-Clive * Medical History: * Surgical History: * Hospitalization/Major Diagno stic Procedure: * Medications: Objective: * Vitals: * Physical Examination: Assessment: Plan: * Treatment: * Procedure Codes: * true * Date: Generated for Printi ng/Faxing/eTransmitting on: 0 01/31/2025 01:28 PM CDT
--- OUTSIDE RECORDS SUMMARY | 2025-01-31 13:29 | XMS_ITS | Clinical Summary ---
Author Organization [facility] Address [address] [place] [address] Care Team Providers Care Welfare Specialist Name Role Phone Unavailable Primary Care Provider [...]
--- OUTSIDE RECORDS SUMMARY | 2025-01-31 13:29 | XMS_ITS | Encounter Summary ---
Author Organization [facility] Address [address] [place] [address] Phone Care Team Providers Care Inspector Final Assembly Mechanical Name Role Phone Jn Velásquez MD Primary Care Provider [phone] Waqas De Leon MD Unavailable [phone] Waqas De Leon MD Unavailable [phone] Cortney Corona MD Unavailable [phone] Stephanie Morrissey MD Primary Care Provider [phone] Jn Velásquez MD Primary Care Provider [phone] Miscellaneous, Not In File Unavailable Unava Daniel Courtney MD Unavailable [phone] James Cifuentes MD Unavailable [phone] Encounter Details Date Type Department Care Team [...] often do you attend chur ch or zoroastrian services? 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
--- OUTSIDE RECORDS SUMMARY | 2025-01-31 13:29 | XMS_ITS | Referral Summary ---
Author Organization [facility] Address [address] [place] [address] Care Team Providers Care Grid Molder Name Role Phone Waqas De Leon MD Unavailable [phone] Waqas De Leon MD Unavailable [phone] Cortney Corona MD Unavailable Jn Velásquez MD Primary Care Provider [phone] Miscellaneous, Not In File Unavailable Unava ilDaniel Mckeon MD Unavailable [phone] James Cifuentes MD Unavailable Encounters Date Type Department Care Team Description 01/18/2025 Telephone [facility] Rheumatology [address] [facility] [address] [place] [address] [place] [address] Zarina Carroll MD Discuss Test Results 01/14/2025 Telephone [facility] Endocrinology Metabolism and Lipid [address] [facility] [address] [place] [address] [place] [address] Nahed Santoro RMA Appointment (Referral from [facility]) 12/12/2024 Orders Only [facility] Cardiology [address] [place] [address] Herminia Smith NP from Last 3 Months Allergies Active Allergy [...] Patient need to follow up with her forest practices field coordinator Dr. Fitch at [facility] on 06/28 Acute pulmonary edema 05/18/20222021 Assessment [...] on room air- transition to torsemide per forest practices field coordinator, add low dose potassium supplement. Continue to [...] Smoking Tobacco: Former Cigarettes 1 53 1 - 2019 Smokeless Tobacco: Never Tobacco Cessation:Counseling [...] any clubs o r organizations such as jehovah's witness groups, unions, fraternal or athletic groups, or [...] place to sleep or slept in a group home (including now)? No 05/31/2023 Personal Safety Answer Date Recorded Have you ever been in or are you currently in a harmful physical or emotional relationship or is someone making you feel afraid or unsafe? 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 Gender Identity Not on file Sexual Orientation Not on file Last Filed Vital Signs Vital Sign Reading Time Taken Comments Blood Pressure 123/61 10/10/2024 1:09 PM HOTEL MAID Pulse 70 10/10/2024 1:09 PM HOTEL MAID Temperature 36.7 C (98 F) 10/10/2024 1:09 PM HOTEL MAID Respiratory Rate 20 06/01/2023 11:31 AM CDT Oxygen Saturation 88% 08/10/2024 10:08 AM CDT Inhaled Oxygen Concentration - - Weight 106 kg (233 lb 9.6 oz) 10/10/2024 1:09 PM HOTEL MAID Height 156.2 cm (5' 1.5 ) 10/10/2024 1:09 PM HOTEL MAID Body Mass Index 43.42 10/10/2024 1:09 PM HOTEL MAID Plan of Treatment Not on file Procedures Procedure Name Priority Date/Time Associated Diagnosis Comments CARDIOLOGY DOCUMENT SCAN Routine 12/07/2024 4:14 PM HOTEL MAID HEPATITIS PANEL, ACUTE Routine 08/10/2024 12:01 PM CDT Interstitial pulmonary disease (HCC) from Last 3 Months or Most Recently Relevant to Health Maintenance Results * Cardiology Document Scan (12/07/2024 4:14 PM HOTEL MAID) Anatomical Region Laterality Modality Other Herminia Smith NP CV CARDIAC SERVICES PROCEDUR ES Final Result * Hepatitis panel, acute Blood (08/10/2024 12:01 PM CDT) Hep A IgM Nonreactive Nonreactive Hep B core IgM Nonreactive Nonreactive [facility] Hep C Ab Nonreactive Nonreactive [facility] Comment:Antibodies to HCV no t detected. Does NOT exclude the possibility of recent exposure to HCV. Current interpretive data was last revised on 22 HepBsAg Nonreactive Nonreactive [facility] Blood 08/10/2024 12:0 1 PM CDT 08/10/2024 2:23 PM CDT us Zarina Carroll MD LAB MICROBIOLOGY - GENERAL ORDER TATO Final Result [facility] [place] [address] from Last 3 Months or Most Recently Relevant to Health Maintenance Insurance [facility] MEDICARE ADVANTAGE IDNY IDNY IDPA Advance Directives For more information, please contact: [phone] * Full Code (Latest Code Status on File) Date Activated Date Inactivated Comments 05/30/2023 2:42 AM 06/01/2023 6:25 PM * Full Code Date Activated Date Inactivated Comments 05/30/2023 12:31 AM 05/30/2023 2:42 AM * Full Code Date Activated Date Inactivated Comments 05/05/2022 2:33 PM 05/14/2022 7:09 PM Care Teams Grid Molder Relationship Specialty Start Date End Date Jn Velásquez MD PCP - General Family Medicine 05/29/23 Waqas De Leon MD Internal Medicine 11/20/21 Waqas De Leon MD Internal Medicine 06/06/19 Cortney Corona MD Referring Physician Surgery 05/14/22 Miscellaneous, Not In File 05/31/23 Daniel Go MD [address] [place] [address] Consulting Physician Interventional Cardiology 05/31/23 [place] [address] [facility] [address] [place] [address] Consulting Physician Pulmonary Disease 05/31/23
--- OUTSIDE RECORDS SUMMARY | 2025-01-31 13:29 | XMS_ITS | CONTINUITY OF CARE DOCUMENT ---
Author Name sterlingjudsterlingjud Address Unknown Organization [facility] Address [address] [facility] ([facility] [address] [place] [address] Phone [phone] Care Team Providers Care Hand Molder Meat Name Role Phone Braulio KING, Roberto Carlos Unavailable SUE MCCANN MD Unavailable SUE MCCANN MD Unavailable PROBLEMS Condition Status Date Provider Notes Abnormal nuclear stress test active Roberto Carlos Ramsey MD CHF - diastolic active Staci Geren NP Aortic stenosis active Staci Green NP Orthostatic hypotension active Jason Beatt y Chest pain-type to be determined active Cedric Valdez Chronic kidney disease stage 2 active Staci Diaz NP Spinal stenosis, lumbar region with neurogenic claudication active Staci Diaz NP COPD active Staci Diaz NP PVD active Penny Melendez Aortic regurgitation, mild-moderate [...] Leg pain completed - Staci Diaz NP Leg edema active Faisal Carlos MD S/P EXPLANTED Biotronik dc (MRI Safe) pm completed - Armani Elliottberg Carotid artery stenosis, <50 % ICA b/l active Roberto Carlos Ramsey MD Diaphoresis active Roberto Carlos Ramsey MD Hypothyroidism active Roberto Carlos Ramsey MD Dizziness active Faisal Carlos MD Hx of tobacco abuse active Penny Melendez Shortness of breath active Faisal Carlos MD ENCOUNTERS Date Type Provider Location Encounter Diag nosis 12/14 - 2 In-person encounter Office Visit Roberto Carlos Ramsey MD [facility] Aortic stenosisCHF - diastolic 12/13 - 2 In-person encounter Office Visit Roberto Carlos Ramsey MD [facility] Orthostatic hypotension 11/11 - 11/11 In-person encounter Office Visit Roberto Carlos Ramsey MD [facility] 0 - 0 In-person encounter Office Visit Roberto Carlos Ramsey MD [facility] 07/06 - 07/07 In-person encounter Office Visit Roberto Carlos Ramsey MD [facility] 05/04 - 05/08 In-person encounter Office Visit Roberto Carlos Ramsey MD [facility] 03/11 - 03/11 In-person encounter Office Visit Roberto Carlos Ramsey MD [facility] 02/25 - 02/25 In-person encounter Office Visit Roberto Carlos Ramsey MD [facility] Chest pain-type to be determined - In-person encounter Office Visit Roberto Carlos Ramsey MD [facility] 06/04 - 06/08 In-person encounter Office Visit Roberto Carlos Ramsey MD [facility] 03/05 - 03/08 In-person encounter Office Visit Roberto Carlos Ramsey MD [facility] 12/25 - 01/04 In-person encounter Office Visit Roberto Carlos Ramsey MD [facility] Leg painBradycardia sinusCOPDSpinal sten osis, lumbar region with neurogenic claudicationChronic kidney disease stage 2 03/13 - 03/13 In-person encounter Office Visit Roberto Carlos Ramsey MD [facility] Hx of tobacco abusePVD 02/14 - 02/18 In-person encounter Office Visit Roberto Carlos Ramsey MD [facility] 02/09 - 02/09 In-person encounter Office Visit Roberto Carlos Ramsey MD [facility] Aortic regurgitation, mild-moderate 0 - In-person encounter Office Visit Roberto Carlos Ramsey MD [facility] 12/22 - 12/22 In-person encounter Office Visit Roberto Carlos Ramsey MD [facility] Hx of tobacco abuse 11/23 - 11/23 In-person encounter Office Visit Roberto Carlos Ramsey MD [facility] Abdominal bruit 03/25 - 04/06 In-person encounter Office Visit Roberto Carlos Ramsey MD [facility] 12/10 - 12/15 In-person encounter Office Visit Roberto Carlos Ramsey MD [facility] Carotid artery stenosis, <50% ICA b/lSle ep apnea, obstructive - on CPAPArthritisFatigueAnxietyDepression 12/09 - 12/17 In-person encounter Office Visit Roberto Carlos Ramsey MD [facility] Carotid artery stenosis, <50% ICA b/lS/P EXPLANTED Biotronik dc (MRI Safe) pmBacteremia S/P PACEMAKER EXPLANTATIONObesity 11/24 - 11/28 In-person encounter Office Visit Roberto Carlos Ramsey MD [facility] HypothyroidismDiaphoresisHypertensionArt hritis - In-person encounter Office Visit Roberto Carlos Ramsey MD [facility] Bacteremia S/P PACEMAKER EXPLANTATION - In-person encounter Office Visit Faisal Carlos MD [facility] Leg edemaSleep apnea, obstructive - on CPAPChronotropic incompetence 12/14 - 12/17 In-person encounter Office Visit Faisal Carlos MD [facility] Carotid artery stenosis, <50% ICA b/l 11/22 - 11/25 In-person encounter Office Visit Faisal Carlos MD [facility] Shortness of breathHx of tobacco abuseDizzinessHypothyroidismDiaphoresis VITAL SIGNS Date Observation Value Provider Body Mass Index (Ratio) 46.45 kg/m2 Cedric Valdez blood pressure, diastolic 66 mm[Hg] [facility] blood pressure, systolic 144 mm[Hg] [facility] oxygen saturation, oximetry 97 % [facility] respiratory rate E&M 20 /min [facility] pulse rate 64 /min [facility] weight E&M 254 [lb_av] [facility] blood pressure, cuff size regular Vi pin [facility] height E&M 62 [in_i] [facility] Body Mass Index (Ratio) 43.53 kg/m2 Cong Salomonty blood pressure, cuff size large [facility], diastolic 72 mm[Hg] [facility], systolic 126 mm[Hg] Ker ri [facility] oxygen saturation, oximetry 91 % Nia Montez pulse rate 65 /min Nia Akash [facility] weight E&M 238 [lb_av] Nia Titoe [facility] height E&M 62 [in_i] Nia Titoe [facility] Body Mass Index (Ratio) 44.81 kg/m2 Cong duenas [place] blood pressure, cuff size large Ke rri Grnedranenfeld blood pressure, diastolic 80 mm[Hg] Ke rri Gruenenfeld blood pressure, systolic 122 mm[Hg] Laurie ri Virgie oxygen saturation, oximetry 95 % Nia Virgie respiratory rate E&M 12 /min Nia Amin miguelangel pulse rate 68 /min Nia Bustos [facility] weight E&M 245 [lb_av] Nia Francise [facility] height E&M 62 [in_i] Nia Akash [facility] Body Mass Index (Ratio) 41.88 kg/m2 Cedric Valdez pulse rate 69 /min Nanci Mills blood pressure, diastolic 64 mm[Hg] An johanna Mills blood pressure, systolic 140 mm[Hg] Montse Mills oxygen saturation, oximetry 92 % Nanci Mills weight E&M 229 [lb_av] Nanciana Mills blood pressure, cuff size large An johanna Mills height E&M 62 [in_i] Nanci Mills Body Mass Index (Ratio) 40.78 kg/m2 Ike Ramsey MD blood pressure, cuff size regular Ke rri Khaiuenenfeldprachi blood pressure, diastolic 80 mm[Hg] Ke rri Gruenenfelder blood pressure, systolic 130 mm[Hg] Ker ri Gruenenfelder oxygen saturation, oximetry 92 % Nia Gruenenfelder respiratory rate E&M 14 /min Nia G ruenenfelder pulse rate 56 /min Nia Gruenenfe lder weight E&M 223 [lb_av] Nia Gruenenfe lder height E&M 62 [in_i] Nia Gruenenfe lder Body Mass Index (Ratio) 40.23 kg/m2 Ike Ramsey MD blood pressure, cuff size regular Ke rri Gruenenfelder blood pressure, diastolic 80 mm[Hg] Ke rri Gruenenfelder blood pressure, systolic 160 mm[Hg] Ker ri Gruenenfelder oxygen saturation, oximetry 92 % Nia Gruenenfelder respiratory rate E&M 14 /min Nia G ruenenfelder pulse rate 74 /min Nia Gruenenfe lder weight E&M 220 [lb_av] Nia Gruenenfe lder height E&M 62 [in_i] Nia Gruenenfe lder Body Mass Index (Ratio) 39.87 kg/m2 Cedric Valdez blood pressure, cuff size regular Ke rri Gruenenfelder blood pressure, diastolic 80 mm[Hg] Ke rri Gruenenfelder blood pressure, systolic 126 mm[Hg] Ker ri Gruenenfelder oxygen saturation, oximetry 94 % Nia Gruenenfelder respiratory rate E&M 16 /min Nia G ruenenfelder pulse rate 67 /min Nia Gruenenfe lder weight E&M 218 [lb_av] Nia Bustos lder height E&M 62 [in_i] Nia Bustos er Body Mass Index (Ratio) 40.42 kg/m2 Cedric Valdez blood pressure, cuff size regular Bj henderson Oliviastanfitzer blood pressure, diastolic 58 mm[Hg] Elijah lua Fendler SURGICAL INSTRUMENT MECHANIC blood pressure, systolic 140 mm[Hg] Oliva horne Fendler SURGICAL INSTRUMENT MECHANIC oxygen saturation, oximetry 93 % Nia Montez respiratory rate E&M 14 /min Nia Amin miguelangel pulse rate 62 /min Nia Bustos er weight E&M 221 [lb_av] Nia Akash [facility] height E&M 62 [in_i] Nia Bustos er Body Mass Index (Ratio) 38.95 kg/m2 Ike Ramsey MD blood pressure, diastolic 61 mm[Hg] Li nkLog blood pressure, systolic 114 mm[Hg] Kamran kLog blood pressure, diastolic 61 mm[Hg] Hallie Thapa blood pressure, systolic 114 mm[Hg] [facility] darius Thapa oxygen saturation, oximetry 94 % Marti Thapa pulse rate 70 /min Marti galeas weight E&M 213 [lb_av] Marti galeas respiratory rate E&M 16 /min Madelyn Thapa blood pressure, cuff size large Hallie Thapa height E&M 62 [in_i] Marti galeas Body Mass Index (Ratio) 38.41 kg/m2 Ike Ramsey MD blood pressure, diastolic 80 mm[Hg] Li nkLogic blood pressure, systolic 191 mm[Hg] Kamran kLogic blood pressure, diastolic 80 mm[Hg] Ke rri Gruenenfelder blood pressure, systolic 191 mm[Hg] Laurie ri Gruenenfelder blood pressure, cuff size large Ke rri Gruenenfelder Inhaled O2 3 L/min Nia Grnedranenfe lder oxygen saturation, oximetry 98 % Nia Gruenenfelder respiratory rate E&M 16 /min Nia G ruenenfelder pulse rate 76 /min Nia Grcarlnfe er weight E&M 210 [lb_av] Nia Gruenenfe lder height E&M 62 [in_i] Nia Grnedranenfe er Body Mass Index (Ratio) 40.78 kg/m2 Cedric Freemanmedzai blood pressure, diastolic 70 mm[Hg] Li nkLogic blood pressure, systolic 110 mm[Hg] Kamran kLogic blood pressure, cuff size large Ke rri Gruenenfelder blood pressure, diastolic 70 mm[Hg] Ke rri Gruenenfelder blood pressure, systolic 110 mm[Hg] Laurie ri Gruenenfelder oxygen saturation, oximetry 96 % Nia Gruenenfelder respiratory rate E&M 16 /min Nia G ruenenfelder pulse rate 95 /min Nia Gruenenfe lder weight E&M 223 [lb_av] Nia Gruenenfe lder height E&M 62 [in_i] Nia Gruenenfe lder Body Mass Index (Ratio) 40.42 kg/m2 Ike Ramsey MD blood pressure, diastolic 70 mm[Hg] Yen nkLogic blood pressure, systolic 130 mm[Hg] Kamran kLogic blood pressure, cuff size large Ke rri Gruenenfelder blood pressure, diastolic 70 mm[Hg] Ke rri Gruenenfelder blood pressure, systolic 130 mm[Hg] Ker ri Gruenenfelder oxygen saturation, oximetry 93 % Nia Gruenenfelder respiratory rate E&M 16 /min Nia G ruenenfelder pulse rate 67 /min Nia Gruenenfe er weight E&M 221 [lb_av] Nia Gruenenfe er height E&M 62 [in_i] Nia Gruenenfe er Body Mass Index (Ratio) 38.59 kg/m2 Taew on Al blood pressure, cuff size large Ke rri Gruenenfelder blood pressure, diastolic 70 mm[Hg] Ke rri Gruenenfelder blood pressure, systolic 120 mm[Hg] Ker ri Gruenenfelder oxygen saturation, oximetry 97 % Nia Gruenenfelder respiratory rate E&M 16 /min Nia G ruenenfelder pulse rate 78 /min Nia Gruenenfe er weight E&M 211 [lb_av] Nia Gruenenfe er height E&M 62 [in_i] Nia Gruenenfe [facility] Body Mass Index (Ratio) 33.47 kg/m2 Jord en Dionicio blood pressure, diastolic 78 mm[Hg] Cy sidra Augustine blood pressure, systolic 152 mm[Hg] Mariluz tania Augustine blood pressure, cuff size regular Cy sidra Augustine respiratory rate E&M 16 /min Concha Augustine pulse rate 89 /min Concha arce oxygen saturation, oximetry 97 % Concha Augustine weight E&M 183 [lb_av] Concha Rouse l height E&M 62 [in_i] Concha arce Body Mass Index (Ratio) 38.59 kg/m2 Willian [...] Ramsey MD blood pressure, diastolic 60 mm[Hg] Ki giselle Matthews blood pressure, systolic 142 mm[Hg] Robb smith Matthews oxygen saturation, oximetry 99 % [place] Matthews respiratory rate E&M 16 /min Tomás Matthews pulse rate 77 /min [place] Matthews weight E&M 208 [lb_av] Tomás Matthews height E&M 62 [in_i] Tomás Matthews Body Mass Index (Ratio) 36.94 kg/m2 Ike Ramsey MD blood pressure, diastolic 78 mm[Hg] Cookie Torres blood pressure, systolic 175 mm[Hg] Radha Torres oxygen saturation, oximetry 95 % Geraldine Torres respiratory rate E&M 18 /min Larissa Torres pulse rate 66 /min Geraldine hodges weight E&M 202 [lb_av] Geraldine Nowak nson height E&M 62 [in_i] Geraldine Nowak nson Body Mass Index (Ratio) 37.49 kg/m2 Ike Ramsey MD blood pressure, cuff size regular Ke rri Montez blood pressure, diastolic, standing 60 mm [Hg] Nia Montez blood pressure, systolic, standing 94 mm[ Hg] Nia Montez oxygen saturation, oximetry 93 % Nia Herrmann respiratory rate E&M 18 /min Nia means pulse rate 74 /min Nia Akash lder weight E&M 205 [lb_av] Nia Akash lder height E&M 62 [in_i] Nia Akash lder Body Mass Index (Ratio) 38.41 kg/m2 Ike Ramsye MD blood pressure, diastolic 80 mm[Hg] Da [...] Montez blood pressure, systolic 153 mm[Hg] Laurie ri Montez oxygen saturation, oximetry 97 % Nia Montez respiratory rate E&M 16 /min Nia Amin swatitraceyjesus pulse rate 69 /min Nia Bustos er weight E&M 204 [lb_av] Nia Bustos er height E&M 62 [in_i] Nia Bustos er Body Mass Index (Ratio) 38.95 kg/m2 Dionicio rafa Valencia blood pressure, cuff size regular Ke rri Titojesus blood pressure, diastolic 70 mm[Hg] Ke rri Titojesus blood pressure, systolic 152 mm[Hg] Laurie menard Oliviastanjesus oxygen saturation, oximetry 97 % Nia Ridleycarlstanjesus respiratory rate E&M 18 /min Nia Amin swatitraceyjesus pulse rate 79 /min Nia Bustos [facility] weight E&M 213 [lb_av] Nia Bustos [facility] height E&M 62 [in_i] Nia Bustos [facility] Body Mass Index (Ratio) 38.41 kg/m2 Ike Ramsey MD blood pressure, resting Yes Ike Ramsey MD blood pressure, diastolic 71 mm[Hg] Cookie Torres blood pressure, systolic 168 mm[Hg] Radha Torres oxygen saturation, oximetry 91 % Geraldine Torres respiratory rate E&M 18 /min Larissa Torres pulse rate 70 /min Geraldine hodges weight E&M 210 [lb_av] Geraldine hodges height E&M 62 [in_i] Geraldine hodges blood pressure, diastolic 80 mm[Hg] Ke rri Montez blood pressure, systolic 144 mm[Hg] Laurie derian Gruenenf pulse rate 52 /min Nia Bustos [facility] oxygen saturation, oximetry 94 % Nia Ridleyalex respiratory rate E&M 20 /min Nia Amin swatijuverojelio Body Mass Index (Ratio) 43.53 kg/m2 Tj orellana Montez weight E&M 238 [lb_av] Nia Bustos er blood pressure, diastolic, left arm 58 mm [Hg] Ysabel Norris blood pressure, systolic, left arm 136 mm [Hg] Ysabel Norris blood pressure, diastolic, right arm 68 m m[Hg] Ysabel Norris blood pressure, systolic, right arm 129 m m[Hg] Ysabel Norris blood pressure, diastolic 58 mm[Hg] Or gonzales Norris blood pressure, systolic 136 mm[Hg] Ruthie sera Norris pulse rate 68 /min Ysabel Norris oxygen saturation, oximetry 96 % Ysabel Norris respiratory rate E&M 15 /min Ysabel Norris Body Mass Index (Ratio) 38.04 kg/m2 Sylvie kelley weight E&M 208 [lb_av] Ysabel Norris blood pressure, diastolic 71 mm[Hg] Or gonzales Norris blood pressure, systolic 141 mm[Hg] Ruthie sera Norris blood pressure, diastolic, left arm 73 mm [Hg] Ysabel Norris blood pressure, systolic, left arm 131 mm [Hg] Ysabel Norris blood pressure, diastolic, right arm 71 m m[Hg] Ysabel Norris blood pressure, systolic, right arm 141 m m[Hg] Ysabel Norris pulse rate 70 /min Ysabel Norris oxygen saturation, oximetry 98 % Ysabel Norris respiratory rate E&M 15 /min Ysabel Norris Body Mass Index (Ratio) 39.32 kg/m2 Sylvie Norris weight E&M 215 [lb_av] Ysabel Norris blood [...] Observation Value Provider Reference Range Interpretation Location 6 pro brain natriuretic peptide 103 pg/mL Link[facility] 0-738 6 basophil count, absolute 0.1 x10E3/uL [facility] 0.0-0.2 6 Eosinophil Absolute Count 0.4 X10E3/UL [facility] 0.0-0.4 6 monocyte count, blood, automated 0.8 X10E3/UL [facility] 0.1-0.9 6 lymphocyte count, blood, automated 1.3 X10E3/UL [facility] 0.7-3.1 6 Absolute Neutrophils 4.1 X10E3/UL [facility] 1.4-7.0 6 basophils as percent of blood leukocytes 1 % [facility] Not Estab. 6 eosinophils as percent of blood leukocytes 5 % [facility] Not Estab. 6 monocytes as percent of blood leukocytes 12 % [facility] Not Estab. 6 lymphocytes as percent of blood leukocytes 19 % [facility] Not Estab. 6 neutrophils as percent of blood leukocytes 62 % [facility] Not Estab. 6 platelet count 268 X10E3/UL [facility] 763-625 1390/02/2 6 red blood cell distribution width 14.5 % [facility] 11.7-15.4 6 mean corpuscular hemoglobin concentration, RBC 31.9 G/DL [facility] 31.5-35.7 6 mean corpuscular hemoglobin, RBC 27.3 pg [facility] 26.6-33.0 6 mean corpuscular volume, RBC 86 fL [facility] 79-97 6 hematocrit, blood 38.9 % [facility] 34.0-46.6 6 hemoglobin, blood 12.4 g/dL [facility] 11.1-15.9 6 erythrocyte (RBC) count 4.54 X10E6/UL [facility] 3.77-5.28 6 leukocyte count, blood 6.6 X10E3/UL [facility] 3.4-10.8 6 alanine aminotransferase (SGPT), serum 16 1/L [facility] 0-32 6 aspartate aminotransferase (SGOT), serum 19 1/L [facility] 0-40 6 alkaline phosphatase, serum 75 1/L [facility] 44-121 6 bilirubin, serum, total 0.3 mg/dL [facility] 0.0-1.2 6 globulin, serum 2.5 [facility] 1.5-4.5 6 albumin, serum 4.1 g/dL [facility] 3.8-4.8 6 protein, total, serum 6.6 g/dL [facility] 6.0-8.5 6 calcium, serum 9.3 mg/dL [facility] 8.7-10.3 6 carbon dioxide, venous blood 23 mmol/L [facility] 20-29 6 chloride, serum 101 mmol/L [facility] 96-106 6 potassium, serum 4.7 mmol/L [facility] 3.5-5.2 6 sodium, serum 145 mmol/L [facility] 134-144 High 6 urea nitrogen/creatinine ratio, serum 11 [facility] 12-28 Low 6 creatinine, serum 1.76 mg/dL [facility] 0.57-1.00 High 6 urea nitrogen, blood 20 mg/dL [facility] 8-27 6 blood glucose, random 91 mg/dL [facility] 70-99 1 free thyroxine index 4.4 [facility] 1.2-4.9 [...] 0-149 1 cholesterol, serum 156 mg/dL [facility] [phone]/04/1 1 basophil count, absolute 0.1 x10E3/uL [facility] [...] Estab. 1 platelet count 366 X10E3/UL [facility] 102-227 3599/04/1 1 red blood cell distribution width 14.0 [...] 3.5-5.2 1 sodium, serum 141 mmol/L [facility] [phone]/04/1 1 urea nitrogen/creatinine ratio, serum 13 [facility] 12-28 1 eGFR if 28 mL/min/{1 .73_m2} [facility] >59 Low 1 eGFR if not 24 mL/min/{1 .73_m2} [facility] >59 Low 1 creatinine, serum 2.02 mg/dL [facility] 0.57-1.00 High 1 urea nitrogen, blood 26 mg/dL [facility] 8-27 1 blood glucose, random 97 mg/dL [facility] 65-99 HISTORY OF MEDICATION USE Medication Status Instructions Dates Provider Indications Com ments Farxiga 10 mg tablet active TAKE 1 TABLET BY MOUTH DAILY Uriel Lagostri Aerosphere 160-9-4.8 mcg/actuation HFA aerosol inhaler active INHALE 2 PUFFS BY MOUTH TWICE DAILY. RINSE MOUTH WITH WATER AND SPIT Uriel Melchor minoxidil 2.5 mg tablet active TAKE 1 TABLET BY MOUTH EVERY DAY Uriel Melchor amlodipine 5 mg tablet active TAKE 1 TABLET BY MOUTH EVERY DAY 11/20 Noris Rushing ergocalciferol (vitamin D2) 1,250 mcg (50,000 unit) capsule completed TAKE 1 CAPSULE BY MOUTH 1 TIME A WEEK 11/15 - 12/14 Uriel Melchor magnesium oxide 400 mg (241.3 mg magnesium) tablet active TAKE 1 TABLET BY MOUTH TWICE DAILY 03/29 Noris Rushing isosorbide mononitrate 30 mg tablet extended release 24 hr active TAKE 1 TABLET BY MOUTH EVERY DAY 03/29 Nia Lopez Ellipta 100-25 mcg/dose blister with device completed Inhale 1 puff as directed once a day - 12/14 Uriel Melchor COPD furosemide 20 mg tablet active TAKE 1 TABLET BY MOUTH DAILY Jason Bruno Ozempic 1 mg/dose (4 mg/3 mL) pen injector completed - 12/14 Uriel Melchor gabapentin 600 mg tablet active three times a day Carley Wynn NP Trintellix 20 mg tablet active Carley Wynn NP trazodone 100 mg tablet completed - 07/06 Zuly Nalluri SURGICAL INSTRUMENT MECHANIC Farxiga 5 mg tablet completed Take 1 table t by mouth once daily - 12/14 Uriel Melchor hydralazine 50 mg tablet active Take 1 [...] EVERY DAY 02/25 - 07/06 Zuly Silvestre SURGICAL INSTRUMENT MECHANIC nitroglycerin 0.4 mg tablet, sublingual active PLACE 1 TAB UNDER TONGUE EVERY 5 MIN NEEDED FOR CHEST PAIN (MAX 3 DOSES).IF NO RELIEF AFTER 3RD DOSE GO TO ER 02/25 Staci Green SURGICAL INSTRUMENT MECHANIC Breo Ellipta 100-25 mcg/dose blister with device [...] 06/04 - 03/08 Roberto Carlos Ramsey MD Brechristina Ellipta 100-25 mcg/dose blister with device completed [...] mouth once a day 04/18 Carley Wynn NP #90, 90 days supply, Prescribed by JUS MEJIA, Filled 12/24/2020 ergocalciferol (vitamin D2) 1,250 mcg (50,000 unit) capsule completed Take 1 capsule by mouth once a week 03/28 - 11/15 Nia Herrmann #4, 28 days supply, Prescribed by SUE MCCANN, Filled 01/18/2021 trazodone 100 mg tablet completed Take 1 tablet by mouth every night 02/19 - 02/25 Carley Wynn NP #30, 30 days supply, Prescribed by CARLEY HOPKINS, Filled 02/19/2021 FeroSul 325 mg (65 mg iron) tablet completed Take 1 tablet by mouth twice a day 02/23 - 02/25 Carley Wynn NP #60, 30 days supply, Prescribed by XAVI MCCLURE, Filled 02/23/2021 hydrocodone-acetami nophen 10-325 mg tablet active Take 1 tablet by mouth three times a day as needed 02/20 Nia Herrmann #90, 30 days supply, Prescribed by XAVI MCCLURE, Filled 02/24/2021 fluoxetine 20 mg tablet completed Take 1 tablet by mouth every morning 01/13 - 02/25 Carley Wynn SURGICAL INSTRUMENT MECHANIC #30, 30 days supply, Prescribed by CARLEY HOPKINS, Filled 03/03/2021 MAGNESIUM OXIDE 400 MG ORAL TABLET completed ONE TAB TWICE A DAY - 8 Nia Herrmann hydrochlorothiazide 25 mg tablet completed Take 1 tablet by mouth once a day - 02/25 Carley Wynn NP HYDRALAZINE HCL 50 MG ORAL TABLET completed take 1 tab two times a day 12/22 - 03/13 Donnellrafiaguzman Melendez COREG 3.125 MG ORAL TABLET completed ONE TAB. TWICE DAILY 12/22 - 12/22 Roberto Carlos Ramsey MD PERCOCET TABLET completed as directed 11/23 - 8 Nia Herrmann VENTOLIN HFA 108 (90 BASE) MCG/ACT INHALATION AEROSOL SOLUTION completed One puff twice a day. 03/25 - 8/ Nia Herrmann LISINOPRIL 10 MG ORAL TABLET [...] take one pill a day 12/09 - 8/ Jessie Sujatha GABAPENTIN 300 MG ORAL CAPSULE completed take one pill twice a day 12/09 - 8 Nia Herrmann PRIMIDONE 50 MG ORAL TABLET completed take one pill twice a day 12/09 - 8 Nia Herrmann VANCOMYCIN HCL SOLR completed 1500mg every 24 hrs - 06/10 Nia Herrmann TRAZODONE HCL 50 MG ORAL TABLET completed one tab at bedtime - 06/10 Nia Herrmann ALPRAZOLAM 0.5 MG ORAL TABLET completed one tab every 4 hrs as needed - 06/10 Nia Herrmann CHOLECALCIFEROL completed 5000 units daily - 06/10 Nia Herrmann CLINDAMYCIN HCL 300 MG ORAL CAPSULE completed three times daily - 06/10 Nia Herrmann LEVAQUIN 500 MG ORAL TABLET [...] completed 1 tab daily - 06/10 Nia Franciseldprachi ASPIRIN 81 MG ORAL TABLET completed ONE TAB. DAILY - 06/10 Nia Nullsilvestreprachi ATORVASTATIN CALCIUM 80 MG ORAL TABLET completed take one daily 02/09 - 06/10 Nia Nullsilvestreprachi LISINOPRIL 20 MG ORAL TABLET completed twice daily - 06/10 Nia Ridleyjihanprachi VITAMIN D (ERGOCALCIFEROL) 08067 UNIT ORAL CAPSULE completed once a week - 06/10 Geraldine Torres SOCIAL HISTORY Date Observation Value Provider alcohol use no Staci Green SURGICAL INSTRUMENT MECHANIC smoking, year quit 2018 Staci Angulo patrick SURGICAL INSTRUMENT MECHANIC number of years as a smoker 52 a Staci Green SURGICAL INSTRUMENT MECHANIC smoking history, tot al pack/day 1 ppd Staci Green SURGICAL INSTRUMENT MECHANIC cigarette use yes Staci Green SURGICAL INSTRUMENT MECHANIC smoking status Former smoker Staci ann SURGICAL INSTRUMENT MECHANIC alcohol use no Jason Bruno smoking, year quit 2018 Jason Be atty number of years as a smoker 50 a Jason Bruno smoking history, tot al pack/day 1 ppd Jason Bruno cigarette use yes Jason Bruno smoking status Former smoker Jason Pfeiffer y alcohol use no Jason Bruno smoking, year quit 2018 Jason Be atty number of years as a smoker 50 a Jason Bruno smoking history, tot al pack/day 1 ppd Jason Bruno cigarette use yes Jason Bruno smoking status Former smoker Jason Pfeiffer y social history E&M S moking History: Justin nava is a former smoker. Cedric Valdez social history reviewed E&M revi ewed - no changes required Cedric Valdez smoking, year quit 2018 Nanci Will iams number of years as a smoker 50 a Nanci Mills smoking history, tot al pack/day 1 ppd Nanci Mills cigarette use yes [place]anci [place] smoking status Former smoker Nanci [address] smoking, year quit 2018 Blue Yousif entrinityfelder number of years as a smoker 50 a Blue Garviner smoking history, tot al pack/day 1 ppd Blue Franciselder cigarette use yes Blue Francis elder smoking status Former smoker Blue pierceelder social history reviewed E&M revi ewed - no changes required Blue Garviner smoking, year quit 2018 Nia lynchfelder number of years as a smoker 52 a Nia Garviner smoking history, tot al pack/day 1 ppd Nia Garviner cigarette use yes Nia Francis elder smoking status Former smoker Nia pierceelder smoking, year quit 2018 Carley Wynn SURGICAL INSTRUMENT MECHANIC number of years as a smoker 52 a Carley Wynn SURGICAL INSTRUMENT MECHANIC smoking status Former smoker Carley queen SURGICAL INSTRUMENT MECHANIC smoking history, tot al pack/day 1 ppd Carley Wynn SURGICAL INSTRUMENT MECHANIC cigarette use yes Carley velarde SURGICAL INSTRUMENT MECHANIC social history E&M S moking History: Justin nava is a former smoker. Cedric Valdez social history reviewed E&M revi ewed - no changes required Cedric Crisostomozareyna smoking, year quit 2018 Marti Thapa number of years as a smoker 52 a Marti Thapa smoking history, tot al pack/day 1 ppd Marti Thapa cigarette use yes Marti Serna nd smoking status Former smoker Marti cardona social history E&M S moking History: P elijah is a former smoker. Cedric Valdez social history reviewed E&M revi ewed - no changes required Cedric Danielsreyna smoking, year quit 2018 Nia Nica enenfelder number of years as a smoker 52 a Nia Virgieer smoking history, tot al pack/day 1 ppd Nia Titoelder cigarette use yes Nia Tito elder smoking status Former smoker Nia Baker nfelder smoking, year quit 2018 Nia Nica enenfelder number of years as a smoker 50 a Nia Titoelder smoking history, tot al pack/day 1 ppd Nia Titoelder cigarette use yes Nia Tito elder smoking status Former smoker Nia Baker nfelder smoking, year quit 2018 Nia Yousif enenfelder number of years as a smoker 50 a Nia Virgieer smoking history, tot al pack/day 1 ppd Nia Titoelder cigarette use yes Nia Tito elder smoking status Former smoker Nia Baker nfelder social history reviewed E&M revi ewed - no changes required Penny Melendez social history E&M S moking History: P elijah is a former smoker. Penny Melendez number of years as a smoker 52 a Nia Virgieer smoking history, tot al pack/day 1 ppd Nia Titoelder smoking, year quit 2018 Nia Nica enenfelder cigarette use yes Nia Tito elder smoking status Former smoker Nia Baker nfelder social history reviewed E&M revi ewed - no changes required Juan Greenberg social history reviewed E&M revi ewed - no changes required Tyrell Berumen social history E&M S moking History: P atient currently smokes every day. P atient has been counseled to quit. Tyrell Berumen smoking/tobacco cess ation, patient education and counseling yes Jessie Sujatha alcohol use no Jessie Sujatha cigarette use yes Jessie Sujatha smoking status Current every day smoker D acia Sujatha social history reviewed E&M revi ewed - no changes required Tyrell Berumen social history E&M S moking History: P atient currently smokes every day. P atient has been counseled to quit. Tyrell Berumen smoking/tobacco cess ation, patient education and counseling yes Tomás Matthews alcohol use no Tomás Matthews cigarette use yes Tomás Matthews smoking status Current every day smoker K tiara Matthews smoking status Current every day smoker S venkat Ramsey MD social history E&M S moking History: P atient currently is a light smoker. P atient has been counseled to quit. Roberto Carlos Ramsey MD social history reviewed E&M revi ewed - no changes required Roberto Carlos Ramsey MD smoking/tobacco cess ation, patient education and counseling yes Geraldine Torres alcohol use no Geraldine hodges cigarette use yes Geraldine mahan social history E&M S moking History: P atient currently is a light smoker. P atient has been counseled to quit. Roberto Carlos Ramsey MD social history reviewed E&M revi ewed - no changes required Roberto Carlos Ramsey MD smoking/tobacco cess ation, patient education and counseling yes Nia Montez alcohol use no Nia Bustos er cigarette use yes Nia Francis jesus smoking status Light tobacco smoker Nia Herrmann social history E&M S moking History: P elijah currently is a light smoker. P elijah has been counseled to quit. Roberto Carlos [...] required Armani Valencia alcohol use no Nia Ridleynedranicolledonna jim cigarette use yes Nia Nullnicollestan jesus smoking status Former smoker Nia Baker [facility] social history reviewed E&M revi ewed - no changes required Roberto Carlos Ramsey MD alcohol use no Nia Ridleynedranicollestannadeem [facility] cigarette use yes Nia Ridleycarlstan jesus smoking status Former smoker [facility] Former smoker Roberto Carlos pierce MD social history reviewed E&M revi ewed - no changes required Roberto Carlos Ramsey MD alcohol use no Geraldine hodges cigarette use yes Geraldine loyaon number of grandchildren Roberto Carlos Ramsey MD social history E&M Smoking Histo ry: Justin nava is a former smoker. Roberto Carlos Ramsey MD social history reviewed E&M revi ewed - no changes required Roberto Carlos Ramsey MD alcohol use no Nia Akash jim cigarette use yes Nia Tito lee smoking status Former smoker Nia Baker nfelder social history reviewed E&M revi ewed - no changes required Faisal Carlos MD social history E&M Smoking Histo ry: Patient is a former smoker. Faisal Carlos MD cigarette use yes Ysabel oNrris smoking status Former smoker Ysabel Acosta nn cigarette use yes Ysabel Norris smoking status Former smoker Ysabel Acosta nn social history reviewed E&M revi ewed - no changes required Faisal Carlos MD social history E&M Smoking Histo ry: Justin nava is a former smoker. Faisal Carlos MD social history reviewed E&M revi ewed - no changes required Faisal Carlos MD cigarette use yes Geraldine mahan smoking status Former smoker Geraldine Hand FAMILY HISTORY Family Member Condition Daughter Family History of Co ronary Artery Disease: Father Family History of Co ronary Artery Disease: Father Family History of Hy pertension: INSURANCE PROVIDERS Payer name Policy type / Coverage type [place] red republic[employer] ID [id number] (PPO C-SNP) Soneter insurance [employer] [id number] [facility] Medicaid 1 [id number] ADVANCE DIRECTIVES Name Date DISCUSSED - NO DECISION MADE TREATMENT PLAN Date Name Performer [id number],C,w ill check PFT w ill send in breo inhaler for now Cedric Valdez [id number],C,s ays she has persistent fatigue and it has been affecting her routine life w ill check PFT h er Cath showed mild CAD s he has diastolic dysfunction Cedric Valdez [id number],C,c ath 04/2023 F INAL RESULTS: T he [...] with increased LVEDP consistent with diastolic dysfunction [facility] [id number],C, c arotids: 07/15/22 Mild plaque with less than 50% stenosis of the internal carotid arteries bilaterally. Vertebral flow is antegrade bilaterally. [facility] [id number],C, B P today: 140/64 P rior BP: 130/80 (07/06/2023) Labs Reviewed: C reat: 2.02 (02/16/2020) C hol: 156 (02/16/2020) HDL: 66 (02/16/2020) [facility] [id number],C,will check PF T [facility] [id number],C, N o recurrent episodes of chest pain [facility] [id number],C,moderate Adam Silvestre SURGICAL INSTRUMENT MECHANIC [id number],C, P FTs: minimal obstructive airways disease and significant decrease in FEV1 when compared to previous study. 6 minute walk test: ambulated 6 minutes. O2 sats 95-96% on room air. H as appointment with ballast cleaning machine operator Zuly Silvestre NP [id number],C,N o recurrent episodes of chest pain Zuly Chapmanluri SURGICAL INSTRUMENT MECHANIC [id number],C, B P today: 130/80 P rior BP: 160/80 (05/04/2023) H er updated medication list for this problem includes: Amlodipine 5 Mg Tablet (Amlodipine) ..... Take 1 tablet by mouth once a day Hydralazine 50 Mg Tablet (Hydralazine) ..... Take 1 tablet by mouth three times a day Zuly Nalluri SURGICAL INSTRUMENT MECHANIC [id number],C, n ot compliant with cpap Zuly Nalluri SURGICAL INSTRUMENT MECHANIC [id number],C, h as been in contact with [facility] to have weight loss surgery. started on ozempic yesterady Zuly Nalluri SURGICAL INSTRUMENT MECHANIC [id number],C, T race bilateral leg edema. on lasix 20 mg Po Zuly Nalluri SURGICAL INSTRUMENT MECHANIC [id number],C, c arotids: 07/15/22 Mild plaque with less than 50% stenosis of the internal carotid arteries bilaterally. Vertebral flow is antegrade bilaterally. Zuly Nalluri SURGICAL INSTRUMENT MECHANIC [id number],C, H er updated medication list for this problem includes: Levothyroxine 88 Mcg Tablet (Levothyroxine) ..... 1 tablet once a day Zuly Nalluri SURGICAL INSTRUMENT MECHANIC [id number],C,Will order 2 week tele monitor Zuly Nalluri SURGICAL INSTRUMENT MECHANIC [id number],C, S uggested patient lose more weight. BP [...] once a day Roberto Carlos Ramsey MD [id number],C,l ab tests from 04/19/23 showed creatinine of 1.86 and BUN of 29 Roberto Carlos Ramsey MD [id number],W, H as mild bilateral leg edema. Blue Herrmann [id number],C, Blue serrato [id number],C, S uggested patient lose more weight. BP [...] tablet by mouth once a day [facility] [id number],S,l ab tests from 04/19/23 showed creatinine of 1.86 and BUN of 29 [facility] [id number],S, P FTs: minimal obstructive airways disease and significant decrease in FEV1 when compared to previous study. 6 minute walk test: ambulated 6 minutes. O2 sats 95-96% on room air. H er updated medication list for this problem includes: Albuterol Sulfate 90 Mcg/actuation Hfa Aerosol Inhaler (Albuterol sulfate) ..... Inhale 1 puff using inhaler three times a day as needed [facility] [id number],S, C ontinues to feel fatigued. Blue Herrmann [id number],N, Roberto Carlos pierce MD [id number],W, H er updated medication list for this [...] go to er Roberto Carlos Ramsey MD [id number],C,e cho today C ONCLUSIONS: 1 . Technically [...] Moderate aortic wall calcification. Carley Wynn NP [id number],C, stress test - will await for results [...] experience SOB/HOWELL and fatigue Carley Wynn NP [id number],C,compliant wit h cpap Carley Wynn NP [id number],C, B P today: 126/80 P rior BP: 140/58 (02/25/2023) Labs Reviewed: C reat: 2.02 (02/16/2020) C hol: 156 (02/16/2020) HDL: 66 (02/16/2020) Her updated medication list for this problem includes: Hydralazine 50 Mg Tablet (Hydralazine) ..... Take 1 tablet by mouth three times a day Amlodipine 5 Mg Tablet (Amlodipine) ..... Take 1 tablet by mouth once a day Carley Wynn NP [id number],C,o n [facility] nephrology Carley Wynn HUNG [id number],C,on supplement ation. Carley Wynn HUNG [id number],C,c arotids: 07/15/22 Mild plaque with less than 50% stenosis of the internal carotid arteries bilaterally. Vertebral flow is antegrade bilaterally. checking nuclear stress test. unable to walk on treadmill d/t back, hip and knee pain. Carley Wynn HUNG [id number],C, B P today: 140/58 P rior BP: [...] by mouth once a day Carley Wynn HUNG [id number],C,. Pt reports that a couple of days [...] imdur added and prn SL NTG Carley Álvarezlottie PERSAUD [id number],C, Roberto Carlos pierce MD [id number],S, H er updated medication list for this problem includes: Hydrochlorothiazide 25 Mg Tablet (Hydrochlorothiazide) ..... Take 1 tablet by mouth once a day Amlodipine 10 Mg Tablet (Amlodipine) ..... Take 1 tablet by mouth once a day Orders: T obacco cessation counseling, 3-10minutes (75906) Roberto Carlos Ramsey MD [id number],C, Roberto Carlos pierce MD [id number],C, O rders: E KG (CPT-81026) Roberto Carlos Ramsey MD [id number],C,C ontinues to be SOB and currently does not know if she needs supplemental O2. I will start her on Albuterol inhaler and Breo ellipta inhaler and see how she does. Will check PFTs and 6 minute walk test . O rders: 9 9215 HIGH 40-54min (CPT-07967) C arotid Duplex Bilateral (CPT-88276) F VC - 49970 (19130) F RC - 91127 (19413) D LCO - 08370 (62917) 6 minute walk test (CPT-91967) Her updated medication list for this problem includes: Amlodipine 10 Mg Tablet (Amlodipine) ..... Take 1 tablet by mouth once a day Hydrochlorothiazide 25 Mg Tablet (Hydrochlorothiazide) ..... 1 tablet by mouth once a day Cedric Valdez [id number],S, O rders: 9 9215 HIGH 40-54min (CPT-77177) C arotid Duplex Bilateral (CPT-22297) F VC - 30512 (83355) F RC - 60518 (30295) D LCO - 57531 (75710) 6 minute walk test (CPT-06774) Cedric Valdez [id number],C, P FTs: minimal obstructive airways disease and [...] as needed Orders: 9 9215 HIGH 40-54min (CPT-59472) C arotid Duplex Bilateral (CPT-98115) F VC - 76315 (83417) F RC - 50483 (72712) D LCO - 40485 (23984) 6 minute walk test (CPT-47482) Cedric Valdez [id number],C,A dvised to cut back salt intake. Will start her on Amlodipine 10 mg and see how she does. Will check carotid duplex as she has mild carotid bruits. BP today: 191/80 P rior BP: 110/70 (03/05/2022) Labs Reviewed: C reat: 2.02 (02/16/2020) C hol: 156 (02/16/2020) HDL: 66 (02/16/2020) Orders: 9 9215 HIGH 40-54min (CPT-17213) C arotid Duplex Bilateral (CPT-26750) F VC - 96465 (76526) F RC - 67291 (65121) D LCO - 84268 (41207) 6 minute walk test (CPT-16035) Her updated medication list for this problem includes: Amlodipine 10 Mg Tablet (Amlodipine) ..... Take 1 tablet by mouth once a day Hydrochlorothiazide 25 Mg Tablet (Hydrochlorothiazide) ..... 1 tablet by mouth once a day Cedric Valdez [id number],S, O rders: 9 9215 HIGH 40-54min (CPT-05324) C arotid Duplex Bilateral (CPT-77634) F VC - 14636 (47154) F RC - 26285 (23301) D LCO - 29982 (49505) 6 minute walk test (CPT-70032) Cedric Valdez [id number],C,H ad telemetry one week: 2 second episode of NSVT. Staci Diaz NP [id number],S,T he patient is using CPAP on a regular basis. The patient has been benefiting from therapy and should continue use. Staci Diaz NP [id number],S, H er updated medication list for this problem includes: Hydrochlorothiazide 25 Mg Tablet (Hydrochlorothiazide) ..... 1 tablet by mouth once a day Staci Diaz NP [id number],S,e cho shows mild to moderate AVR. Next echo in one year. Staci Diaz NP [id number],S,P FTs: minimal obstructive airways disease and significant decrease in FEV1 when compared to previous study. 6 minute walk test: ambulated 6 minutes. O2 sats 95-96% on room air. Staci Diaz NP [id number],S, O rders: F VC - 17195 (28466) F RC - 75010 (42915) D LCO - 89557 (11799) 6 minute walk test (CPT-98034) C OMPREHENSIVE METABOLIC PANEL, W/EGFR (31780) C BC (INCLUDES DIFF/PLT) (6399) L IPID PANEL (7600) H EMOGLOBIN A1c (496) B TYPE NATRIURETIC PEPTIDE (BNP) (21550) P ROBNP, N TERMINAL (18713) M onitor - Telemetry (Mobile Cardiac) (CPT-61666) Roberto Carlos Ramsey MD [id number],S,c heck PFTs O rders: F VC - 41444 (02369) F RC - 66781 (15109) D LCO - 30063 (69669) 6 minute walk test (CPT-31647) C OMPREHENSIVE METABOLIC PANEL, W/EGFR (56786) CBC (INCLUDES DIFF/PLT) (6399) L IPID PANEL (7600) H EMOGLOBIN A1c (496) B TYPE NATRIURETIC PEPTIDE (BNP) (42332) P ROBNP, N TERMINAL (64978) M onitor - Telemetry (Mobile Cardiac) (CPT-40800) Roberto Carlos Ramsey MD [id number],S, O rders: C omplete Echo (CPT-91936) 6 minute walk test (CPT-95947) C OMPREHENSIVE METABOLIC PANEL, W/EGFR (33782) C BC (INCLUDES DIFF/PLT) (6399) L IPID PANEL (7600) H EMOGLOBIN A1c (496) B TYPE NATRIURETIC PEPTIDE (BNP) (98142) P ROBNP, N TERMINAL (14694) M onitor - Telemetry (Mobile Cardiac) (CPT-13149) 9 9213 LTD 20-29min (CPT-74407) Roberto Carlos Ramsey MD [id number],C, O rders: C omplete Echo (CPT-68650) F VC - 78844 (69700) F RC - 17490 (59909) D LCO - 06024 (64773) 6 minute walk test (CPT-05742) C OMPREHENSIVE METABOLIC PANEL, W/EGFR (71298) C BC (INCLUDES DIFF/PLT) (6399) L IPID PANEL (7600) H EMOGLOBIN A1c (496) B TYPE NATRIURETIC PEPTIDE (BNP) (27315) P ROBNP, N TERMINAL (57972) M onitor - Telemetry (Mobile Cardiac) (CPT-14836) 9 9213 LTD 20-29min (CPT-17317) Roberto Carlos Ramsey MD [id number],W,w ill check echo, PFTs, 6 minute walk test, labs. H er updated medication list for this problem includes: Hydrochlorothiazide 25 Mg Tablet (Hydrochlorothiazide) ..... 1 tablet by mouth once a day Orders: C omplete Echo (CPT-18148) 6 minute walk test (CPT-89685) C OMPREHENSIVE METABOLIC PANEL, W/EGFR (85183) C BC (INCLUDES DIFF/PLT) (6399) L IPID PANEL (7600) H EMOGLOBIN A1c (496) B TYPE NATRIURETIC PEPTIDE (BNP) (73939) P ROBNP, N TERMINAL (65244) M onitor - Telemetry (Mobile Cardiac) (CPT-99657) Roberto Carlos Ramsey MD [id number],W,w ill check echo, PFTs, 6 minute walk test, labs. Staci Diaz HUNG [id number],S,check PFTs Sh maribell Diaz HUNG [id number],S, Stacidana Lopez kamran SURGICAL INSTRUMENT MECHANIC [id number],S,T he patient is using CPAP on a regular basis. The patient has been benefiting from therapy and should continue use. Staci Joe PERSAUD [id number],W,m od AR per last echo. Will recheck echo Staci Diaz HUNG [id number],W,h as been in contact with [facility] to have weight loss surgery. Staci Diaz NP Electrophysiology:F/ U with pulmonology as scheduled T he following medications were removed from the medication list: Breo Ellipta 100-25 Mcg/dose Blister With Device (Fluticasone furoate-vilanterol) ..... Inhale 1 puff as directed once a day Her updated medication list for this problem includes: Breztri Aerosphere 160-9-4.8 Mcg/actuation Hfa Aerosol Inhaler (Nmtpixraid-bnedzjvc-avefrbqqru) ..... Inhale 2 puffs by mouth twice daily. rinse mouth with water and spit Albuterol Sulfate 90 Mcg/actuation Hfa Aerosol Inhaler (Albuterol sulfate) ..... Inhale 1 puff using inhaler three times a day as needed Staci Green NP Electrophysiology:[facility] echo, increase lasix x 3 day. Monitor renal function. H er updated medication list for this problem includes: Amlodipine 5 Mg Tablet (Amlodipine) ..... Take 1 tablet by mouth every day Isosorbide Mononitrate 30 Mg Tablet Extended Release 24 Hr (Isosorbide mononitrate) ..... Take 1 tablet by mouth every day Furosemide 20 Mg Tablet (Furosemide) ..... Take 1 tablet by mouth daily Nitroglycerin 0.4 Mg Tablet, Sublingual (Nitroglycerin) ..... Place 1 tab under tongue every 5 min as needed for chest pain (max 3 doses).if no relief after 3rd dose go to er Staci Green SURGICAL INSTRUMENT MECHANIC Electrophysiology:Will repeat ec ho. Staci Peter PERSAUD Electrophysiology:Check CMP Angelo Green NP Electrophysiology: p er nephro Jason Bruno Electrophysiology:Th e patient is using CPAP on a regular basis. The patient has been benefiting from therapy and should continue use. Jason Salomonty Electrophysiology:Continue medic al therapy Jason Damion Electrophysiology:Ca rotids <50% b/l [facility] Electrophysiology: H er updated medication list for [...] (02/16/2020) LDL: 73 (02/16/2020) T (02/16/2020) Jason Bruno Electrophysiology:He r sob has been chronic for [...] ..... Take 1 tablet by mouth daily Jason Bruno Electrophysiology Jason Bolivia Electrophysiology:per nephro [place] Electrophysiology:stable [facility] Electrophysiology:below baseline [facility] Electrophysiology: T race bilateral leg edema. on lasix 20 mg Po J anuary 2023 r ecommend continued use of lasix, i have instructed the patient to take additional dose if needed for swelling [facility] Electrophysiology:check carpotid study [facility] Electrophysiology:[facility] low dost lung CT given Hx of tobacco abuse. m ild COPD on latest PFTS m inimal diffusion defect on latest PFTs s he states there is minimal benefit from inhalers [facility] Electrophysiology:Th e patient is using CPAP on a regular basis. The patient has been benefiting from therapy and should continue use. [facility] Electrophysiology:wi ll check PFT w ill send in breo inhaler for now Cedric Valdez Electrophysiology:sa ys she has persistent fatigue and it has been affecting her routine life w ill check PFT h er Cath showed mild CAD s he has diastolic dysfunction Cedric Valdez Electrophysiology:ca 04/2023 F INAL RESULTS: T he left [...] with increased LVEDP consistent with diastolic dysfunction Cedric Valdez Electrophysiology: c arotids: 07/15/22 Mild plaque with less than 50% stenosis of the internal carotid arteries bilaterally. Vertebral flow is antegrade bilaterally. Cedric Valdez Electrophysiology: B P today: 140/64 P rior BP: 130/80 (07/06/2023) Labs Reviewed: C reat: 2.02 (02/16/2020) C hol: 156 (02/16/2020) HDL: 66 (02/16/2020) Cedric Valdez Electrophysiology:will check PFT Cedric Valdez Electrophysiology: N o recurrent episodes of chest pain Cedricbruno Daniels Electrophysiology:moderate Neeli ma Nalluri SURGICAL INSTRUMENT MECHANIC Electrophysiology: P FTs: minimal obstructive airways disease and significant decrease in FEV1 when compared to previous study. 6 minute walk test: ambulated 6 minutes. O2 sats 95-96% on room air. H as appointment with ballast cleaning machine operator Zuly Knappri HUNG Electrophysiology:No recurrent e pisodes of chest pain Zuly Nalluri SURGICAL INSTRUMENT MECHANIC Electrophysiology: B P today: 130/80 P rior BP: 160/80 (05/04/2023) H er updated medication list for this problem includes: Amlodipine 5 Mg Tablet (Amlodipine) ..... Take 1 tablet by mouth once a day Hydralazine 50 Mg Tablet (Hydralazine) ..... Take 1 tablet by mouth three times a day Zuly Nalluri SURGICAL INSTRUMENT MECHANIC Electrophysiology: n ot compliant with cpap Zuly Nalluri SURGICAL INSTRUMENT MECHANIC Electrophysiology: h as been in contact with [facility] to have weight loss surgery. started on ozempic yesterady Zuly Nalluri SURGICAL INSTRUMENT MECHANIC Electrophysiology: T race bilateral leg edema. on lasix 20 mg Po Zuly Nalluri SURGICAL INSTRUMENT MECHANIC Electrophysiology: c arotids: 07/15/22 Mild plaque with less than 50% stenosis of the internal carotid arteries bilaterally. Vertebral flow is antegrade bilaterally. Zuly Nalluri SURGICAL INSTRUMENT MECHANIC Electrophysiology: H er updated medication list for this problem includes: Levothyroxine 88 Mcg Tablet (Levothyroxine) ..... 1 tablet once a day Zuly Nalluri SURGICAL INSTRUMENT MECHANIC Electrophysiology:Will order 2 w [place] tele monitor Zuly Nalluri SURGICAL INSTRUMENT MECHANIC Electrophysiology - 3 month follow up with [...] - 3 month follow up with SK: H as mild bilateral leg edema. Blue [...] three times a day as needed Blue Hermrann Electrophysiology - 3 month follow up with SK: Elaina graham to feel fatigued. Blue Herrmann Telehealth - needs l eft hearty cath ath [facility] with Dr. Sonny Ramsey MD Telehealth - needs l eft hearty cath ath [facility] with Dr. Dennis: H er updated medication [...] continues to experience SOB/HOWELL and fatigue Carley Tianna PERSAUD Electrophysiology:compliant with cpap Carley Tianna PERSAUD Electrophysiology: B P today: 126/80 P rior [...] once a day Carley Wynn NP Electrophysiology:on kerendia rocio hendrickson nephrology Carley Wynn NP Electrophysiology:on supplementa [...] tablet by mouth once a day Carley Fenbernice PERSAUD Electrophysiology:. Pt reports that a couple of [...] day Orders: T obacco cessation counseling, 3-10minutes (29001) Roberto Carlos Ramsey MD Electrophysiology- Roberto Carlos garcia MD Electrophysiology-: O rders: E KG (CPT-96795) Roberto Carlos Ramsey MD Electrophysiology:Co ntinues to be SOB and currently does not know if she needs supplemental O2. I will start her on Albuterol inhaler and Breo ellipta inhaler and see how she does. Will check PFTs and 6 minute walk test . O rders: 9 9215 HIGH 40-54min (CPT-29171) C arotid Duplex Bilateral (CPT-70710) F VC - 70449 (00145) F RC - 12064 (47788) D LCO - 37038 (54609) 6 minute walk test (CPT-13656) Her updated medication list for this problem includes: Amlodipine 10 Mg Tablet (Amlodipine) ..... Take 1 tablet by mouth once a day Hydrochlorothiazide 25 Mg Tablet (Hydrochlorothiazide) ..... 1 tablet by mouth once a day Roberto Carlos Ramsey MD Electrophysiology: O rders: 9 9215 HIGH 40-54min (CPT-54807) C arotid Duplex Bilateral (CPT-86871) F VC - 10702 (95721) F RC - 48047 (95898) D LCO - 13338 (35139) 6 minute walk test (CPT-50228) Roberto Carlos Ramsey MD Electrophysiology: P FTs: [...] as needed Orders: 9 9215 HIGH 40-54min (CPT-83270) C arotid Duplex Bilateral (CPT-91363) F VC - 54228 (89206) F RC - 27611 (03007) D LCO - 24541 (81975) 6 minute walk test (CPT-54787) Roberto Carlos Ramsey MD Electrophysiology:Ad vised to cut back salt intake. Will start her on Amlodipine 10 mg and see how she does. Will check carotid duplex as she has mild carotid bruits. BP today: 191/80 P rior BP: 110/70 (03/05/2022) Labs Reviewed: C reat: 2.02 (02/16/2020) C hol: 156 (02/16/2020) HDL: 66 (02/16/2020) Orders: 9 9215 HIGH 40-54min (CPT-15086) C arotid Duplex Bilateral (CPT-17617) F VC - 38659 (65478) F RC - 33570 (93995) D LCO - 95059 (89021) 6 minute walk test (CPT-70600) Her updated medication list for this problem includes: Amlodipine 10 Mg Tablet (Amlodipine) ..... Take 1 tablet by mouth once a day Hydrochlorothiazide 25 Mg Tablet (Hydrochlorothiazide) ..... 1 tablet by mouth once a day Roberto Carlos Ramsey MD Electrophysiology: O rders: 9 9215 HIGH 40-54min (CPT-40324) C arotid Duplex Bilateral (CPT-68408) F VC - 50492 (81330) F RC - 16211 (62707) D LCO - 43835 (85478) 6 minute walk test (CPT-08371) Roberto Carlos Ramsey MD Electrophysiology:Hamm d telemetry [...] NP Electrophysiology: O rders: F VC - 17083 (31567) F RC - 37228 (70314) D LCO - 80110 (78618) 6 minute walk test (CPT-00380) C OMPREHENSIVE METABOLIC PANEL, W/EGFR (82851) C BC (INCLUDES DIFF/PLT) (6399) L IPID PANEL (7600) H EMOGLOBIN A1c (496) B TYPE NATRIURETIC PEPTIDE (BNP) (58272) P ROBNP, N TERMINAL (35649) M onitor - Telemetry (Mobile Cardiac) (CPT-01810) Roberto Carlos Ramsey MD Electrophysiology:[facility] PFTs O rders: F VC - 36296 (37051) F RC - 38249 (18016) D LCO - 90645 (79554) 6 minute walk test (CPT-13012) C OMPREHENSIVE METABOLIC PANEL, W/EGFR (06325) CBC (INCLUDES DIFF/PLT) (6399) L IPID PANEL (7600) H EMOGLOBIN A1c (496) B TYPE NATRIURETIC PEPTIDE (BNP) (63847) P ROBNP, N TERMINAL (03469) M onitor - Telemetry (Mobile Cardiac) (CPT-82358) Roberto Carlos Ramsey MD Electrophysiology: O rders: C omplete Echo (CPT-29115) 6 minute walk test (CPT-43050) C OMPREHENSIVE METABOLIC PANEL, W/EGFR (66679) C BC (INCLUDES DIFF/PLT) (6399) L IPID PANEL (7600) H EMOGLOBIN A1c (496) B TYPE NATRIURETIC PEPTIDE (BNP) (42876) P ROBNP, N TERMINAL (25726) M onitor - Telemetry (Mobile Cardiac) (CPT-88648) 9 9213 LTD 20-29min (CPT-28228) Roberto Carlos Ramsey MD Electrophysiology: O rders: C omplete Echo (CPT-92839) F VC - 74384 (99876) F RC - 11781 (96376) D LCO - 03450 (06041) 6 minute walk test (CPT-27448) C OMPREHENSIVE METABOLIC PANEL, W/EGFR (40168) C BC (INCLUDES DIFF/PLT) (6399) L IPID PANEL (7600) H EMOGLOBIN A1c (496) B TYPE NATRIURETIC PEPTIDE (BNP) (07548) P ROBNP, N TERMINAL (13128) M onitor - Telemetry (Mobile Cardiac) (CPT-57149) 9 9213 LTD 20-29min (CPT-30284) Roberto Carlos Ramsey MD Electrophysiology:wi check echo, PFTs, 6 minute walk test, labs. H er updated medication list for this problem includes: Hydrochlorothiazide 25 Mg Tablet (Hydrochlorothiazide) ..... 1 tablet by mouth once a day Orders: C omplete Echo (CPT-23491) 6 minute walk test (CPT-53211) C OMPREHENSIVE METABOLIC PANEL, W/EGFR (22757) C BC (INCLUDES DIFF/PLT) (6399) L IPID PANEL (7600) H EMOGLOBIN A1c (496) B TYPE NATRIURETIC PEPTIDE (BNP) (81545) P ROBNP, N TERMINAL (99655) M onitor - Telemetry (Mobile Cardiac) (CPT-44323) Roberto Carlos Ramsey MD Electrophysiology:wi ll check echo, PFTs, 6 minute walk test, labs. Staci Diaz SURGICAL INSTRUMENT MECHANIC Electrophysiology:check PFTs She rry Joe SURGICAL INSTRUMENT MECHANIC Electrophysiology Staci Lopezyen weber SURGICAL INSTRUMENT MECHANIC Electrophysiology:Th e patient is using CPAP on a regular basis. The patient has been benefiting from therapy and should continue use. Staci Diaz SURGICAL INSTRUMENT MECHANIC Electrophysiology:mo d AR per last echo. Will recheck echo Staci Diaz SURGICAL INSTRUMENT MECHANIC Electrophysiology:hamm s been in contact with [facility] to have weight loss surgery. Staci Diaz HUNG Electrophysiology Ho spital Follow up 14 : s /p DC PPM explantation 08/14/16 with extensive pocket revision due to bacteremia. Donnelltheresa Al Electrophysiology Ho spital Follow up 14 : O rders: A orsemary Duplex Ultrasound (CPT-64243) The following medications were removed from the medication list: Aspirin 81 Mg Oral Tablet (Aspirin) ..... One tab. daily Penny Melendez Electrophysiology Ho spital Follow up 14 :s/p DC PPM explantation 08/14/16 with extensive pocket revision due to bacteremia. Orders: M onitor - Telemetry (Mobile Cardiac) (CPT-10666) Donnelltheresa Al Electrophysiology Ho spital Follow up 14 : O rders: E KG (CPT-67891) C omplete Echo (CPT-63840) Echo 02/2020 CONCLUSIONS: 1 . There is [...] lectronically Signed By: Roberto Carlos Marie 2 13:28:20 CDT Penny Melendez Electrophysiology Ho spital Follow up 14 :PFT 06/2020 P ulmonary [...] Tablet (Hydrochlorothiazide) ..... One tab daily Penny Al Electrophysiology:CO MPLAINS OF CHEST PAIN W ILL GET NUCLEAR STRESS TEST. pt cannot walk due to age and arthritis Juan Greenberg Electrophysiology: O rders: C OMPREHENSIVE METABOLIC PANEL, W/EGFR (83646) C BC (INCLUDES DIFF/PLT) (6399) L IPID PANEL (7600) T HYROID PANEL (7020) F VC - 26753 (65844) F RC - 52992 (93062) D LCO - 80566 (29195) C omplete Echo (CPT-67320) S tress Regadenoson (CPT-37199) Juan Greenberg Electrophysiology: P rior BP: 122/60 (02/09/2019) Her [...] daily Orders: C OMPREHENSIVE METABOLIC PANEL, W/EGFR (40221) C BC (INCLUDES DIFF/PLT) (6399) L IPID PANEL (7600) T HYROID PANEL (7020) F VC - 82824 (82879) FRC - 48474 (86018) D [facility] - 61949 (95837) C omplete Echo (CPT-82679) S tress Regadenoson (CPT-52012) Juan Greenberg Electrophysiology fo llow up: E cho 07/28/18 showed EF 65% with mild-mod AR Tyrell Berumen Electrophysiology fo llow up: P atient continues to smoke everyday. S TRONGLY ENCOURAGED TO STOP SMOKING; SMOKING CESSATION TECHNIQUES [...] P atient continues to smoke everyday. S TRONGLY ENCOURAGED TO STOP SMOKING; SMOKING CESSATION TECHNIQUES [...] Tyrell Berumen Electrophysiology - :Orders: E KG (CPT-01656) M obile Cardiac Tele (CPT-81720) S chedule Followup (*) 9 3958 MOD Complex (CPT-82901) Tyrell Berumen Electrophysiology - :Orders: S chedule Followup (*) 9 9214 MOD Complex (CPT-15063) Tyrell Berumen Electrophysiology - :BP today: 142/60 [...] cessation strongly advised. Orders: F VC - 42118 (73953) F RC - 33360 (94683) D LCO - 95371 (99464) S chedule Followup (*) 9 9214 MOD Complex (CPT-86907) Her updated medication list for this problem includes: Hydrochlorothiazide 25 Mg Oral Tablet (Hydrochlorothiazide) ..... One tab daily Lisinopril 10 Mg Oral Tablet (Lisinopril) ..... One tablet at bedtime Aspirin 81 Mg Oral Tablet (Aspirin) ..... One tab. daily Tyrell Berumen Electrophysiology:ST RONGLY ENCOURAGED TO STOP SMOKING; SMOKING CESSATION TECHNIQUES [...] : O rders: 9 9214 MOD Complex (CPT-30152) S TR - Adenosine (CPT-42537) Roberto Carlos Ramsey MD Electrophysiology Fo llow up : O rders: A rosemary Duplex Ultrasound (AAA) (CPT-45887) Roberto Carlos Ramsey MD Cardiology FOLLOW UP [...] Cardiology Follow up faxed 12/16/16:Orders: S NOMED-CT: [id number] Current Medications Documented (SCT-[id number]) E KG (CPT-37580) M obile Cardiac Tele (CPT-02849) Continues to have some fatigue. [facility] Follow up faxed 12/16/16:On 50mcg Levothyroxine daily. [facility] Follow up faxed 12/16/16:Orders: S NOMED-CT: [id number] Current Medications Documented (SCT-[id number]) E KG (CPT-36735) M obile Cardiac Tele (CPT-28283) [facility] Valencia EP Follow up faxed 10/19/16:Comp liant with CPAP. Armani Annie EP Follow up faxed 1 12/20/15:BP today: 152/70 P rior BP: 168/71 (09/24/2016) Her updated medication list for this problem includes: Amlodipine Besylate 2.5 Mg Oral Tabs (Amlodipine besylate) ..... Take one pill a day Aspirin 81 Mg Tabs (Aspirin) ..... One tab. daily Armani [facility] EP Follow up faxed 10/19/16 Dionicio craig Annie EP Follow up faxed 1 12/20/15:Pacemaker which was implanted in July 2016 was extracted on August 14 due to bacteremia. She is now doing well and continues to see ID. [facility] Follow-up faxed Roberto Carlos Ramsey MD Cardiology:Orders: A rterial Duplex Bi-Lower EX (CPT-88116) V enous Doppler Bilateral LE - Standing (CPT-82188) Faisal Carlos MD Cardiology:Orders: A rterial Duplex Bi-Lower EX (CPT-17644) V enous Doppler Bilateral LE - Standing (CPT-19055) Faisal Carlos MD Cardiology:There was mild caroti [...] Dr. Lima. Faisal Carlos MD Date Name CBC (INCLUDES DIFF/P LT) COMPREHENSIVE METABO LIC PANEL, W/EGFR PROBNP, N TERMINAL Complete Echo Low Dose Lung CT Carotid Duplex Bilat eral Aorta Duplex Ultraso und DLCO - 64404 FRC - 99170 FVC - 65202 Monitor - Telemetry (Mobile Cardiac) Monitor - Telemetry (Mobile Cardiac) PROTHROMBIN TIME WIT H INR LIPID PANEL CBC (INCLUDES DIFF/P LT) BASIC METABOLIC PANE L W/EGFR Stress Regadenoson Complete Echo RPM (remote patient monitoring) Monitor - Telemetry (Mobile Cardiac) 6 minute walk test DLCO - 08046 FRC - 33102 FVC - 26803 Carotid Duplex Bilat eral Monitor - Telemetry (Mobile Cardiac) PROBNP, N TERMINAL B TYPE NATRIURETIC P EPTIDE (BNP) HEMOGLOBIN A1c LIPID PANEL CBC (INCLUDES DIFF/P LT) COMPREHENSIVE METABO LIC PANEL, W/EGFR 6 minute walk test DLCO - 88736 FRC - 58776 FVC - 04256 Complete Echo Aorta Duplex Ultraso und Monitor - Telemetry (Mobile Cardiac) Complete Echo Stress Regadenoson Complete Echo DLCO - 37159 FRC - 96460 FVC - 65680 THYROID PANEL LIPID PANEL CBC (INCLUDES DIFF/P LT) COMPREHENSIVE METABO LIC PANEL, W/EGFR MAGNESIUM DLCO - 04777 FRC - 69846 FVC - 05209 COMPREHENSIVE METABO LIC PANEL, W/EGFR Mobile Cardiac Tele Complete Echo Carotid Duplex Bilat eral DLCO - 37910 FRC - 17212 FVC - 77053 Aorta Duplex Ultraso und (AAA) STR - Adenosine Mobile Cardiac Tele Complete Echo Carotid Duplex Bilat eral Other Test DLCO - 38729 FRC - 07972 FVC - 78092 Mobile Cardiac Tele C-REACTIVE PROTEIN Other SED [...] completed FVC / MVV with bronchodilator - 05558 Roberto Carlos Ramsey MD completed BLOOD COUNT HEMOGLOBIN Roberto Carlos jacob MD completed FRC - [address] MD completed SpO2 w/o 6min walk/titration Roberto Carlos Ramsey MD completed DLCO - [address] MD completed EKG Roberto [...] completed FVC / MVV with bronchodilator - 26751 Roberto Carlos Ramsey MD completed FRC - [address] MD completed SpO2 w/o 6min walk/titration Roberto Carlos Ramsey MD completed SVC - [address] MD completed DLCO - [address] MD completed 6 minute walk test Roberto Carlos garcia MD completed EKG Roberto Carlos street MD completed EKG Roberto Carlos street MD completed 6 minute walk test Roberto Carlos garcia MD completed Spirometry Roberto Carlos street MD completed FVC / MVV with bronchodilator - 30862 Roberto Carlos Ramsey MD completed FRC - [address] MD completed SpO2 w/o 6min walk/titration Roberto Carlos Ramsey MD completed SVC - [address] MD completed DLCO - [address] MD completed EKG Roberto Carlos street MD completed Mobile Cardiac Telem etry - Tech Roberto Carlos Ramsey MD completed Mobile Cardiac Telem etry - Prof Roberto Carlos Ramsey MD completed EKG Roberto Carlos street MD completed Regadenoson, 4 units Roberto Carlos wall MD completed Cardiolite, 2 units Roberto Carlos pierce MD completed SPECT Images Roberto Carlos street MD completed Stress EKG Roberto Carlos street MD completed FVC / MVV - 38158 Robert oCarlos arriaga MD completed BLOOD COUNT HEMOGLOBIN Roberto Carlos jacob MD completed FRC - [address] MD completed SpO2 w/o 6min walk/titration Roberto Carlos Ramsey MD completed DLCO - [address] MD completed EKG Roberto Carlos street MD completed Schedule Followup Roberto Carlos arriaga MD in 1 yr completed EKG Roberto Carlos street MD completed FVC / MVV with bronchodilator - 29678 Roberto Carlos Ramsey MD completed BLOOD COUNT HEMOGLOBIN Roberto Carlos jacob MD completed FRC - [address] MD completed SpO2 w/o 6min walk/titration Roberto Carlos Ramsey MD completed DLCO - [address] MD completed Schedule Followup Roberto Carlos arriaga MD in 6 mo completed EKG Roberto Carlos street MD completed FVC / MVV with bronchodilator - 78569 Roberto Carlos Ramsey MD completed BLOOD COUNT HEMOGLOBIN Roberto Carlos jacob MD completed FRC - [address] MD completed SpO2 w/o 6min walk/titration Roberto Carlos Ramsey MD completed DLCO - [address] MD completed EKG Roberto Carlos street MD completed SNOMED-CT: 915053245862727 Current Medications Documented Roberto Carlos Ramsey MD completed Stress EKG Julien Ruth MD complete d Regadenoson, 4 units Roberto Carlos wall MD completed Cardiolite, 2 units Roberto Carlos pierce MD completed SPECT Images Dian Dennis MD complet ed EKG Roberto Carlos street MD completed SNOMED-CT: 845365485165143 Current Medications Documented Roberto Carlos Ramsey MD completed Mobile Cardiac Telem etry - Tech Roberto Carlos Ramsey MD completed Mobile Cardiac Telem etry - Prof Roberto Carlos Ramsey MD completed Schedule Followup Roberto Carlos arriaga MD In 6 months. completed EKG Roberto Carlos street MD completed SNOMED-CT: 910171559043828 Current Medications Documented Roberto Carlos Ramsey MD completed FVC / MVV with bronchodilator - 29134 Roberto Carlos Ramsey MD completed FRC - [address] MD completed SpO2 - [address] MD completed DLCO - [address] MD completed Mobile Cardiac Telem etry - Tech Kiarra Smith completed Mobile Cardiac Telem etry - Prof Kiarra Smith completed EKG Roberto Carlos street MD completed SNOMED-CT: 721175824130856 Current Medications Documented Roberto Carlos Ramsey MD completed VIOLETA Morales Saulius Suzanna arriaga MD completed EKG ulius Pa street MD completed SNOMED-CT: 641834244341879 Current Medications Documented ulius Braulio KING completed EKG ulius Pa street MD completed SNOMED-CT: 415684342566242 Current Medications Documented ulius Braulio KING completed EKG ulius Pa street MD completed SNOMED-CT: 350890734876487 Current Medications Documented ulius Braulio KING completed SNOMED-CT: 505621983753257 Current Medications Documented Faisal Carlos MD completed SNOMED-CT: 735735209051647 Current Medications Documented Faisal Carlos MD completed SNOMED-CT: 509342231 Smoking Cessation Counseling Faisal Carlos MD completed Stress EKG Faisal Carlos MD completed Regadenoson, 4 units Faisal Carlos MD completed Cardiolite, 2 units Faisal Carlos MD c ompleted SPECT Images Lois Giraldo MD compl eted Mobile Cardiac Telem etry - Tech Feli Hughes completed Mobile Cardiac Telem etry - Prof Feli Hughes completed SNOMED-CT: 853180737 Smoking Cessation Counseling Faisal Carlos MD completed EKG Faisal Carlos MD completed SNOMED-CT: 913256242044354 Current Medications Documented Faisal Carlos MD completed
--- OUTSIDE RECORDS SUMMARY | 2025-01-31 13:29 | XMS_ITS | Clinical Summary ---
Author Organization [facility] on Address [address] [place] [address] [place] [phone] Phone Care Team Providers Care Decating Machine Operator Name Role Phone Unavailable Primary Care Provider Unavailabl e Encounters Date Type Department Care Team Description 12/25/2024 External Device Data STL ABSTRACTION Provider, Abstract 12/12/2024 [facility] [address] [place] [address] Jessica Mccarthy RN BARIATRIC (Call to patient/Marissa Hurst/) 12/11/2024 External Device Data STL ABSTRACTION Provider, Abstract 12/11/2024 External Device Data STL ABSTRACTION Provider, Abstract 12/11/2024 External Device Data STL ABSTRACTION Provider, Abstract 12/11/2024 [facility] [place] [address] [address] Mary Crocker, ALEX call to insurance carrier (Call to insurance carrier) 12/10/2024 [facility] [address] [place] [address] Jessica Mccarthy RN BARIATRIC (Call to patient-insurance clarification/Marissa Hurst/) 12/07/2024 [facility] [address] [place] [address] Jessica Mccarthy RN BARIATRIC (2024 Insurance Review/Marissa [...] Comments DTAP/TDAP/TD VACCINES (1 - Tdap) 1966 ZOSTER VACCINE (1 of 2) 1997 OSTEOPOROSIS SCREENING 2012 PNEUMOCOCCAL VACCINE 50+ YEARS (2 of 2 - PPSV23) 01/2011/26/2015 RSV VACCINE (60+ or ) (1 - 1-dose 75+ series) 2022 INFLUENZA VACCINE (#1) 2024 Medicare [place]age ([place]) Prev entative Visit/Annual Wellness Visit 11/07/2024 Insurance [facility] [id number]
--- OUTSIDE RECORDS SUMMARY | 2025-01-31 13:29 | XMS_ITS ---
Author Organization [facility] As [place] Address [address] [place] [address] Care Team Providers Care Bowling Teacher Name Role Phone Sandie Madrid Unavailable [phone] Migration, Provider Unavailable Unavailable Allergies Allergen (clinical drug ingredient) Drug/Non Drug Allergy documented on EMR Reaction Allergy Type Onset Date Status lisinopril Lisinopril Unknown Drug Allergy 11/17/2023 Acti ve REASON FOR VISIT EMR-Clive Medications Medication SIG (Take, Route, Frequency, Duration) Notes Start Date End Date Status Mounjaro 5 MG/0.5ML Subcutaneous *Reorder fro [facility] for eRx and Interaction Alerts* 03/19/2024 Active Phentermine HCl 37.5 MG Oral 03/19/2024 Active Combivent Respimat 20-100 MCG/ACT Inhalation 03/19/2024 Active QUEtiapine Fumarate 100 MG Oral 03/19/2024 Active Unithroid 88 mcg Oral 03/19/2024 Ac tive Nitroglycerin 0.4 MG Sublingual 03/19/2024 Active DAPAGLIFLOZIN PROPANEDIOL 10 MG TABLET *[facility]* 03/19/2024 Active MOUNJARO 12.5 MG/0.5 ML SUBCUTANEOUS PEN INJECTOR *[facility]* 03/19/2024 Active Minoxidil 2.5 mg Oral 03/19/2024 Ac tive EUTHYROX 125 MCG TABLET *[facility] Interaction Alerts* 03/19/2024 Active [...] MG Oral 03/19/2024 Active Ergocalciferol 1.25 MG (17242 UT) Oral 03/19/2024 Active Furosemide 20 MG Oral 03/19/2024 Ac tive Magnesium Oxide (Elemental) 400 MG Oral *Reorder from [facility] for eRx and Interaction Alerts* 03/19/2024 Active PREGABALIN 200 MG CAPSULE *Reord er from [facility] for eRx and Interaction Alerts* [...] Mounjaro 10 MG/0.5ML Subcutaneous *[facility]* 03/19/2024 Active Vlpvospn-Yglkoerjw-Ifzsgp th 3.5-38139-2.1 Ophthalmic 03/19/2024 Active Isosorbide Mononitrate ER 30 [...] KERENDIA 10 MG TABLET *[facility]* 03/19/2024 Active Ozempic (0.25 or 0.5 MG/DOSE) 2 MG/3ML Subcutaneous *Pick strength[facility]form [facility]* 03/19/2024 Active Azithromycin 500 MG Oral 03/19/2024 Active predniSONE 10 MG Oral 03/19/2024 Ac tive Mounjaro 2.5 MG/0.5ML Subcutaneous *[facility]* 03/19/2024 Active Breztri Aerosphere 160-9-4.8 MCG/ACT Inhalation *[facility]* 03/19/2024 Active dexAMETHasone 6 MG Oral 03/19/2024 Active INSULIN SYRINGE/U-100/1ML/31G X 5/1 6 31G X 5/16 1 ML MISC *[facility]* 03/19/2024 Active Chlorthalidone 25 MG Oral 03/19/2024 Active Mounjaro 7.5 MG/0.5ML Subcutaneous *[facility]* 03/19/2024 [...] Female Encounters Encounter Location Date Provider Diagnosis [facility] [address] [facility] [address] [place] [address] 03/25/2024 Provider Migration Plan Of Treatment Next Appt Details Provider Name:Sandie Madrid, 07/22/2025 01:00:00 PM, [address], [facility] [address], [place], [address], Progress Notes * JESU HARLEY LDOB: [birth year] (78 yo F)Acc No.[id number]:03/25/2024 Patient: Magnus CHURCHILL JESU Kan :1945 A ge:78 Y S ex:Female Address:[address] [place] [address] [address], [place] [id number] Subjective: * Chief Complaints: * E MR-Clive * 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 * Surgical History: R emoval of gallbladder (36501) Cosmetic surgery 11/07/1999 * Hospitalization/Major Diagno stic Procedure: * Family History: M other: Depressive disorder . D aughter: Anxiety disorder . * Social History: M igrated Social History: M igrated Social History: Alcohol Intake: None 09/09/2020,Tobacco Years: Former smoker 12/16/2022,Smoking Status: 50 11/17/2023. * Medications: T akingamLODIPine Besylate 10 MG Tablet Oral ARIPiprazole 10 MG Tablet Oral Atorvastatin Calcium 40 MG Tablet Oral Azelastine HCl 0.05 % Solution Ophthalmic Losartan Potassium 50 MG Tablet Oral traZODone HCl 100 MG Tablet Oral EUTHYROX 125 MCG TABLET , Notes to Pharmacist: *Reorder from [facility] for eRx and Interaction Alerts*MOUNJARO 12.5 MG/0.5 ML SUBCUTANEOUS PEN INJECTOR , Notes to Pharmacist: *Reorder from [facility] for eRx and Interaction Alerts*Farxiga 10 MG Tablet Oral Breztri Aerosphere 160-9-4.8 MCG/ACT Aerosol Inhalation , Notes to Pharmacist: *Reorder from [facility] for eRx and Interaction Alerts*Mounjaro 2.5 MG/0.5ML Solution Pen-injector Subcutaneous , Notes to Pharmacist: *Reorder from [facility] for eRx and Interaction Alerts*hydroCHLOROthiazide 25 MG Tablet Oral Albuterol Sulfate (2.5 MG/3ML) 0.083% Nebulization Solution Inhalation Doxycycline Monohydrate 100 MG Tablet Oral Bevespi Aerosphere 9-4.8 MCG/ACT Aerosol Inhalation PREGABALIN 200 MG CAPSULE , Notes to Pharmacist: *Reorder from [facility] for eRx and Interaction Alerts*Azithromycin 250 MG Tablet Oral hydrOXYzine HCl 10 MG Tablet Oral Eojtrmvh-Fqiavyqsu-Xvmrbpjo 3.5-31070-5.1 Suspension Ophthalmic ProAir HFA 108 (90 Base) MCG/ACT Aerosol Solution Inhalation Ozempic (0.25 or 0.5 MG/DOSE) 2 MG/3ML Solution Pen-injector Subcutaneous , Notes to Pharmacist: *Pick strength-form from [facility] for eRX*KERENDIA 10 MG TABLET , Notes to Pharmacist: *Reorder from [facility] for eRx and Interaction Alerts*Rosuvastatin Calcium 10 MG Tablet Oral Trintellix 20 MG Tablet Oral Ergocalciferol 1.25 MG (89839 UT) Capsule Oral oxyBUTYnin Chloride ER 10 MG Tablet Extended Release 24 Hour Oral PROzac 20 MG Capsule Oral rOPINIRole HCl 0.5 MG Tablet Oral Korlym 300 mg Tablet Oral Belsomra 10 mg Tablet Oral Mounjaro 7.5 MG/0.5ML Solution Pen-injector Subcutaneous , Notes to Pharmacist: *Reorder from [facility] for eRx and Interaction Alerts*Phentermine HCl [...] Subcutaneous , Notes to Pharmacist: *Reorder from [facility] for eRx and Interaction Alerts*Doxycycline Hyclate 100 MG Tablet Oral FLUoxetine HCl 20 MG Tablet Oral Furosemide 20 MG Tablet Oral Gabapentin 600 MG Tablet Oral Rosuvastatin Calcium 40 MG Tablet Oral Farxiga 5 MG Tablet Oral DAPAGLIFLOZIN PROPANEDIOL 10 MG TABLET , Notes to Pharmacist: *Reorder from [facility] for eRx and Interaction Alerts*predniSONE 10 MG Tablet Oral Allopurinol 100 MG Tablet Oral Atenolol 25 MG Tablet Oral hydrALAZINE HCl 50 MG Tablet Oral Nitroglycerin 0.4 MG Tablet Sublingual Sublingual Cetirizine HCl 10 MG Tablet Oral Magnesium Oxide (Elemental) 400 MG Tablet Oral , Notes to Pharmacist: *Reorder from [facility] for eRx and Interaction Alerts*Cefdinir 300 MG Capsule Oral dexAMETHasone 1 MG Tablet Oral HYDROcodone-Acetaminophen 5-325 MG Tablet Oral Isosorbide Mononitrate ER 30 MG Tablet Extended Release 24 Hour Oral Chlorthalidone 25 MG Tablet Oral dexAMETHasone 6 MG Tablet Oral INSULIN SYRINGE/U-100/1ML/31G X 5/ 6 31G X 5/16 1 ML MISC , Notes to Pharmacist: *Reorder from [facility] for eRx and Interaction Alerts*Minoxidil 2.5 mg Tablet Oral Combivent Respimat 20-100 MCG/ACT Aerosol Solution Inhalation Mounjaro 5 MG/0.5ML Solution Pen-injector Subcutaneous , Notes to Pharmacist: *Reorder from [facility] for eRx and Interaction Alerts*busPIRone HCl [...] TABLET , Notes to Pharmacist: *Reorder from [facility] for eRx and Interaction Alerts*Taking MOUNJARO 12.5 MG/0.5 ML SUBCUTANEOUS PEN INJECTOR , Notes to Pharmacist: *Reorder from [facility] for eRx and Interaction Alerts*Taking Farxiga 10 MG Tablet Oral Taking Breztri Aerosphere 160-9-4.8 MCG/ACT Aerosol Inhalation , Notes to Pharmacist: *Reorder from [facility] for eRx and Interaction Alerts*Taking Mounjaro 2.5 MG/0.5ML Solution Pen-injector Subcutaneous , Notes to Pharmacist: *Reorder from [facility] for eRx and Interaction Alerts*Taking hydroCHLOROthiazide 25 MG Tablet Oral Taking Albuterol Sulfate (2.5 MG/3ML) 0.083% Nebulization Solution Inhalation Taking Doxycycline Monohydrate 100 MG Tablet Oral Taking Bevespi Aerosphere 9-4.8 MCG/ACT Aerosol Inhalation Taking PREGABALIN 200 MG CAPSULE , Notes to Pharmacist: *Reorder from [facility] for eRx and Interaction Alerts*Taking Azithromycin 250 MG Tablet Oral Taking hydrOXYzine HCl 10 MG Tablet Oral Taking Ewxzadqa-Rkdnqjoxi-Jqdiyphu 3.5-49164-0.1 Suspension Ophthalmic Taking ProAir HFA 108 (90 Base) MCG/ACT Aerosol Solution Inhalation Taking Ozempic (0.25 or 0.5 MG/DOSE) 2 MG/3ML Solution Pen-injector Subcutaneous , Notes to Pharmacist: *Pick strength-form from [facility] for eRX*Taking KERENDIA 10 MG TABLET , Notes to Pharmacist: *Reorder from [facility] for eRx and Interaction Alerts*Taking Rosuvastatin Calcium 10 MG Tablet Oral Taking Trintellix 20 MG Tablet Oral Taking Ergocalciferol 1.25 MG (66529 UT) Capsule Oral Taking oxyBUTYnin Chloride ER 10 MG Tablet Extended Release 24 Hour Oral Taking PROzac 20 MG Capsule Oral Taking rOPINIRole HCl 0.5 MG Tablet Oral Taking Korlym 300 mg Tablet Oral Taking Belsomra 10 mg Tablet Oral Taking Mounjaro 7.5 MG/0.5ML Solution Pen-injector Subcutaneous , Notes to Pharmacist: *Reorder from [facility] for eRx and Interaction Alerts*Taking Phentermine [...] Subcutaneous , Notes to Pharmacist: *Reorder from [facility] for eRx and Interaction Alerts*Taking Doxycycline Hyclate 100 MG Tablet Oral Taking FLUoxetine HCl 20 MG Tablet Oral Taking Furosemide 20 MG Tablet Oral Taking Gabapentin 600 MG Tablet Oral Taking Rosuvastatin Calcium 40 MG Tablet Oral Taking Farxiga 5 MG Tablet Oral Taking DAPAGLIFLOZIN PROPANEDIOL 10 MG TABLET , Notes to Pharmacist: *Reorder from [facility] for eRx and Interaction Alerts*Taking predniSONE 10 MG Tablet Oral Taking Allopurinol 100 MG Tablet Oral Taking Atenolol 25 MG Tablet Oral Taking hydrALAZINE HCl 50 MG Tablet Oral Taking Nitroglycerin 0.4 MG Tablet Sublingual Sublingual Taking Cetirizine HCl 10 MG Tablet Oral Taking Magnesium Oxide (Elemental) 400 MG Tablet Oral , Notes to Pharmacist: *Reorder from [facility] for eRx and Interaction Alerts*Taking Cefdinir 300 MG Capsule Oral Taking dexAMETHasone 1 MG Tablet Oral Taking HYDROcodone-Acetaminophen 5-325 MG Tablet Oral Taking Isosorbide Mononitrate ER 30 MG Tablet Extended Release 24 Hour Oral Taking Chlorthalidone 25 MG Tablet Oral Taking dexAMETHasone 6 MG Tablet Oral Taking INSULIN SYRINGE/U-100/1ML/31G X / 6 31G X 03/22 1 ML MISC , Notes to Pharmacist: *Reorder from [facility] for eRx and Interaction Alerts*Taking Minoxidil 2.5 mg Tablet Oral Taking Combivent Respimat 20-100 MCG/ACT Aerosol Solution Inhalation Taking Mounjaro 5 MG/0.5ML Solution Pen-injector Subcutaneous , Notes to Pharmacist: *Reorder from [facility] for eRx and Interaction Alerts*Taking busPIRone HCl 5 MG Tablet Oral Taking FLUoxetine HCl 60 MG Tablet Oral Taking Tretinoin 0.025 % Cream External * Allergies: L isinopril: Allergy - Onset Date 11/17/2023 Objective: * Vitals: * Physical Examination: Assessment: Plan: * Treatment: * Procedure Codes: * true * Date: Generated for Александр wooten/Stevie/Em on: 0 01/31/2025 01:29 PM CDT
--- OUTSIDE RECORDS SUMMARY | 2025-01-31 13:30 | XMS_ITS ---
Author Organization [facility] As [facility] Address [address] [place] [address] Care Team Providers Care Operator Receptionist Name Role Phone Sandie Madrid Unavailable [phone] Allergies Allergen (clinical drug ingredient) Drug/Non Drug Allergy documented on EMR Reaction Allergy Type Onset Date Status lisinopril Lisinopril Unknown Drug Allergy 11/17/2023 Acti ve REASON FOR VISIT follow up Medications Medication SIG (Take, Route, Frequency, Duration) Notes Start Date End Date Status Farxiga 5 MG Oral 03/19/2024 Unknow n Allopurinol 100 MG Oral 03/19/2024 Unknown DAPAGLIFLOZIN PROPANEDIOL 10 MG TABLET *Reorder from [facility] for eRx and Interaction Alerts* 03/19/2024 Unknown hydrALAZINE HCl 50 MG Oral 03/19/2024 Unknown Atenolol 25 MG Oral 03/19/2024 Unkn own amLODIPine Besylate 5 MG Oral 03/19/2024 Unknown Breo Ellipta 100-25 MCG/INH Inhalation 03/19/2024 Unknown Unithroid 75 mcg Oral 03/19/2024 Un known Furosemide 20 MG Oral 03/19/2024 Un known Mounjaro 10 MG/0.5ML Subcutaneous *[facility]* 03/19/2024 Unknown rOPINIRole HCl 0.5 MG Oral 03/19/2024 Unknown Ergocalciferol 1.25 MG (63735 UT) Oral 03/19/2024 Unknown Korlym 300 mg Oral 03/19/2024 Unkno wn oxyBUTYnin Chloride ER 10 MG Oral 03/19/2024 Unknown Unithroid 88 mcg Oral 03/19/2024 Un known Rosuvastatin Calcium 10 MG Oral 03/19/2024 Unknown KERENDIA 10 MG TABLET *Reorder f rom [facility] for eRx and Interaction Alerts* 03/19/2024 Unknown ProAir HFA 108 (90 Base) MCG/ACT Inhalation 03/19/2024 Unknown Azithromycin 250 MG Oral 03/19/2024 Unknown PREGABALIN 200 MG CAPSULE *Reord er from [facility] for eRx and Interaction Alerts* 03/19/2024 Unknown MOUNJARO 12.5 MG/0.5 ML SUBCUTANEOUS PEN INJECTOR *Reorder from [facility] for eRx and Interaction Alerts* 03/19/2024 Unknown Albuterol Sulfate (2.5 MG/3ML) 0.083% Inhalation 03/19/2024 Unknown hydroCHLOROthiazide 25 MG Oral 03/19/2024 Unknown Breztri Aerosphere 160-9-4.8 MCG/ACT Inhalation *Reorder from [facility] for eRx and Interaction Alerts* 03/19/2024 Unknown Farxiga 10 MG Oral 03/19/2024 Unkno wn EUTHYROX 125 MCG TABLET *Reorder from [facility] for eRx and Interaction Alerts* 03/19/2024 Unknown Losartan Potassium 50 MG Oral 03/19/2024 Unknown Azelastine HCl 0.05 % Ophthalmic 03/19/2024 Unknown Atorvastatin Calcium 40 MG Oral 03/19/2024 Unknown amLODIPine Besylate 10 MG Oral 03/19/2024 Unknown INSULIN SYRINGE/U-100/1ML/31G X 5/ 6 31G X 516 1 ML MISC *Reorder from [facility] for eRx and Interaction Alerts* 03/19/2024 Unknown Trintellix 20 MG 1 tablet Oral Once a day for 90 days 03/19/2024 Active Isosorbide Mononitrate ER 30 MG Oral 03/19/2024 Unknown dexAMETHasone 1 MG Oral 03/19/2024 Unknown Chlorthalidone 25 MG Oral 03/19/2024 Unknown Magnesium Oxide (Elemental) 400 MG Oral *Reorder from [facility] for eRx and Interaction Alerts* 03/19/2024 [...] Severe recurrent major depression without psychotic features (26356823) Major depressive disorder, 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 Problem Generalized anxiety disorder (82585268) Generalized anxiety disorder (F41.1) Active confirmed Problem Primary insomnia (0347690) Primary insomnia (F51.01) Active confirmed Encounters Encounter Location Date Provider Diagnosis [facility] [address] [place] [address] 07/24/2024 Sandie Madrid Major depressive disorder, recurrent [...] Reason: medication follow up Provider Name:Sandie Madrid, 07/22/2025 01:00:00 PM, [address], [address], [place], [address], Progress Notes * JESU HARLEY LDOB: [birth year] (78 yo F)Acc No.[id number]:07/24/2024 Patient: JESU JAMES Provider: Pablo MADRID PMHNP :1945 A ge:78 Y S ex:Female Date:07/24/2024 Address:[address] [place] [address] [address], [place] [address] Subjective: * Chief Complaints: * 1 . Follow up. * HPI: H istory of Presenting Problem: Anxiety w ith excessive worry-stable . D epression?Rates depression 2/10 with 10 being most severe. Denies SI. . M ood lability n o hx benoit. P sychosis n o hx psychosis. S uicidal ideation d enies. Here for follow up. [...] still taking Mounjaro, has not lost weight. D epression Screening: DUGLAS-7 (2018 Edition) F eeling nervous, anxious, or on edge?Not at all. D epression screening: PHQ-9 L ittle interest or pleasure in doing things N ot at all, F eeling down, depressed, or hopeless S everal days, T rouble falling or staying asleep, or sleeping too much N ot at all, F eeling tired or having little energy M ore than half the days, P oor appetite or overeating S everal days, F eeling bad about yourself or that you are a failure, or have let yourself or your family down N ot at all, T rouble concentrating on things, such as reading the newspaper or watching television N ot at all,?Moving or speaking so slowly that other people could have noticed; or the opposite, being so fidgety or restless that you have been moving around a lot more than usual N ot at all, T houghts that you would be better off or of hurting yourself in some way N ot at all. I ntervention D epression Screening Findings N egative, F ollow-Up for Depression M ental health care management, A dditional Evaluation for Depression P sychiatric interview and evaluation, N jacob of the standardized tool used for adult depression screening: [facility] Health Questionnaire (PHQ-9). C [place]-Suicide Severity Rating Scale: Suicide Risk (CSRS-screener) i n the past one month Have you wished you were or wished you could go to sleep and not wake up? N o, i n the past one month Have you actually had any thoughts of killing yourself? N o. * ROS: P sychiatric: Patient denies s uicidal thoughts, benoit, psychosis. C rudy S ee HPI for details. * Medical History: P roblems: Abdominal bruit, Anemia, Anxiety, Aortic valve regurgitation, Arthritis, [...] dependence syndrome, Hypothyroid, CKD, CHF. * Surgical History: R emoval of gallbladder (61406) , Cosmetic surgery 11/07/1999. * Family History: M other: Depressive disorder . D aughter: Anxiety disorder . * Social History: T obacco Use: T obacco Control (Standard) T obacco use: F ormer smoker. M igrated Social History: M igrated Social History: Alcohol Intake: None 09/09/2020,Tobacco Years: Former smoker 12/16/2022,Smoking Status: 50 11/17/2023. * Medications: T aking Trintellix 20 MG Tablet Oral , Unknown amLODIPine Besylate 10 MG Tablet Oral , Unknown Atorvastatin Calcium 40 MG Tablet Oral , Unknown Azelastine HCl 0.05 % Solution Ophthalmic , Unknown Losartan Potassium 50 MG Tablet Oral , Unknown EUTHYROX 125 MCG TABLET , Notes to Pharmacist: *Reorder from [facility] for eRx and Interaction Alerts*, Unknown MOUNJARO 12.5 MG/0.5 ML SUBCUTANEOUS PEN INJECTOR , Notes to Pharmacist: *Reorder from [facility] for eRx and Interaction Alerts*, Unknown Farxiga 10 MG Tablet Oral , Unknown Breztri Aerosphere 160-9-4.8 MCG/ACT Aerosol Inhalation , Notes to Pharmacist: *Reorder from [facility] for eRx and Interaction Alerts*, Unknown hydroCHLOROthiazide 25 MG Tablet Oral , Unknown Albuterol Sulfate (2.5 MG/3ML) 0.083% Nebulization Solution Inhalation , Unknown PREGABALIN 200 MG CAPSULE , Notes to Pharmacist: *Reorder from [facility] for eRx and Interaction Alerts*, Unknown Azithromycin 250 MG Tablet Oral , Unknown ProAir HFA 108 (90 Base) MCG/ACT Aerosol Solution Inhalation , Unknown KERENDIA 10 MG TABLET , Notes to Pharmacist: *Reorder from [facility] for eRx and Interaction Alerts*, Unknown Rosuvastatin Calcium 10 MG Tablet Oral , Unknown Ergocalciferol 1.25 MG (89096 UT) Capsule Oral , Unknown rOPINIRole HCl [...] Subcutaneous , Notes to Pharmacist: *Reorder from [facility] for eRx and Interaction Alerts*, Unknown Furosemide 20 MG Tablet Oral , Unknown Farxiga 5 MG Tablet Oral , Unknown DAPAGLIFLOZIN PROPANEDIOL 10 MG TABLET , Notes to Pharmacist: *Reorder from [facility] for eRx and Interaction Alerts*, Unknown Allopurinol 100 MG Tablet Oral , Unknown Atenolol 25 MG Tablet Oral , Unknown hydrALAZINE HCl 50 MG Tablet Oral , Unknown Nitroglycerin 0.4 MG Tablet Sublingual Sublingual , Unknown Magnesium Oxide (Elemental) 400 MG Tablet Oral , Notes to Pharmacist: *Reorder from [facility] for eRx and Interaction Alerts*, Unknown dexAMETHasone 1 MG Tablet Oral , Unknown Isosorbide Mononitrate ER 30 MG Tablet Extended Release 24 Hour Oral , Unknown Chlorthalidone 25 MG Tablet Oral , Unknown INSULIN SYRINGE/U-100/1ML/31G X 5/1 6 31G X 5/16 1 ML MISC , Notes to Pharmacist: *Reorder from [facility] for eRx and Interaction Alerts*, Medication List reviewed and reconciled with the patient * Allergies: L isinopril: Allergy - Onset Date 11/17/2023. Objective: * Vitals: * Examination: P sychiatry: Appearance: w ell-groomed. Abnormal body movements: n [...] rate, volume, and articulation (RVR), clear and coherent. Thought content: a ppropriate. Thought process: i ntact. Assessment: * Assessment: 1. M ajor depressive disorder, recurrent severe without psychotic features - F33.2 (Primary)? 2. G eneralized anxiety disorder - F41.1 3 . P rimary insomnia - F51.01 Plan: * Treatment: 2. O thers Notes: Stable, continue Trintellix 20mg daily for mood, anxiety. Patient educated on all medications including potential benefits, side effects, risks. Educated on proper dosing schedule and importance of compliance. * Procedure Codes: 9 6127 BEHAV ASSMT W/SCORE & DOCD/STAND INSTRUMENT, G2211 VISIT COMPLEXITY INHERENT TO ONGOING CARE RELATED TO A PATIENT'S SINGLE, SERIOUS CONDITION OR A COMPLEX CONDITION, G8431 CLIN DEPRESSION SCREEN DOC * Follow Up: 6 Months (Reason: medication follow up) * Billing Information: * Visit Code: 33628 OFFICE OUTPATIENT VISIT 15 MINUTES EXPANDED HISTORY AND EXAM/LOW MEDICAL DECISION MAKING. * Procedure Codes: 47980 BEHAV ASSMT W/SCORE & DOCD/STAND INSTRUMENT. G2211 VISIT COMPLEXITY INHERENT TO ONGOING CARE RELATED TO A PATIENT'S SINGLE, SERIOUS CONDITION OR A COMPLEX CONDITION. G8431 CLIN DEPRESSION SCREEN DOC. * Sign off status: Completed true * Provider: CHRISTIANO ROWELL Date: 0 07/24/2024 Generated for Александр wooten/Stevie/Em on: 0 01/31/2025 01:29 PM CDT History and Physical Notes * [...] anxious, or on edge: Not at all [place]-Suicide Severity Rating Scale Suicide Risk (CSRS-screener) in [...]
== END 2025-01-31 12:45 | disposition home or self-care (01) ==
PROVIDERS: PCP Family Medicine; Visit Provider Internal Medicine
DX: E03.9 Hypothyroidism, unspecified (principal); E66.01 Morbid (severe) obesity due to excess calories; Z85.850 Personal history of malignant neoplasm of thyroid
CPT/HCPCS: 76536

== ENCOUNTER 2025-02-13 13:08 | Observation (INO) | payer MEDICARE, MEDICAID, SELFPAY ==
[2025-02-13] VITALS (25 sets, daily range): BP systolic 118–157; BP diastolic 56–94; PULSE 69–94; RESP 12–20; TEMP 36.3–36.8; O2SAT 90–100; BMI 44.3
--- NOTE | ~2025-02-13 | US_ITS ---
US venous doppler [facility] - 02/14/2025 09:57 CDT History: 79 years old Female with bilateral lower extremity pain and swelling. Real-time sonographic images of the bilateral lower extremity venous system were obtained. Color Dop pler sonography and spectral waveform analysis were performed. No prior studies for comparison. The bilateral sapheno-femoral junctions are patent. The bilateral common femoral, superficial femor al, popliteal and posterior tibial veins are compressible and without evidence of echogenic thrombus . Impression: No evidence of deep venous thrombosis Reviewed, dictated and finalized at location A. Impression: No evidence of deep venous thrombosis
--- NOTE | ~2025-02-13 | CT_ITS ---
EXAMINATION: CTA chest PE protocol DATE: 02/13/2025 14:43 INDICATION: Shortness of breath TECHNIQUE: Computed tomography (CT) pulmonary angiogram of the chest was performed with 100 mL Omnipa que-350 intravenous contrast. Additional 3D reconstructions utilizing coronal maximum intensity proje ction (MIP) were performed. Automated exposure control and iterative reconstruction technique were em ployed. The dose-length product was 932.47 mGy-cm. COMPARISON: 12/04/2024 FINDINGS: No evident pulmonary embolism. Sensitivity decreased in the basilar segmental and subsegmental pulmon corey arteries and some of the smaller subsegmental pulmonary arteries in the mid and upper lungs due t o moderate to severe basilar predominant respiratory motion. Right middle lobe collapse. Mild discoid atelectasis at the lingula and bilateral lower lobes. Mosaic attenuation in the upper lobes without septal line thickening to suggest pulmonary edema in this most likely related to mild atelectasis and more lucent subsegmental regions of air trapping. No pneumonia, pulmonary edema or pleural effusion. Tracheobronchial malacia with prominent AP narrowing of the trachea and mainstem bronchi. Heart size is normal. Atherosclerotic coronary artery calcification. Aortic valve calcification. Thoracic aorta is normal in caliber with no dissection. Enlargement of the central pulmonary arteries consistent wi th pulmonary arterial hypertension.. No pathologically enlarged thoracic lymphadenopathy. Cholecystec maame clips the gallbladder fossa. 1.9 cm cyst at the upper pole of the left kidney. 6 mm exophytic so ft tissue density lesion at the upper pole the right kidney. C6-C7 anterior spinal fusion. Mild to mo derate lower thoracic predominant spondylosis. IMPRESSION: 1. No pulmonary embolism. Sensitivity decreased in the basilar segmental and more diffusely through t he subsegmental pulmonary arteries due to moderate to severe respiratory motion artifact. 2. Right middle lobe collapse with additional mild atelectasis scattered throughout the remainder of the lungs with subsegmental regions of more lucent air trapping the upper lungs consistent with small airway disease.. 3. Tracheobronchial malacia. 4. Enlargement of the central pulmonary arteries consistent with pulmonary arterial hypertension. 4. 6 mm soft tissue density exophytic lesion at the right kidney which could represent a complex prot einaceous/hemorrhagic cyst or renal cell carcinoma. Recommend follow-up pre and postcontrast MRI or C T when patient is able to breath-hold. Reviewed, dictated and finalized at location B. IMPRESSION: 1. No pulmonary embolism. Sensitivity decreased in the basilar segmental and mo re diffusely through the subsegmental pulmonary arteries due to moderate to sev ere respiratory motion artifact. 2. Right middle lobe collapse with additional mild atelectasis scattered throug hout the remainder of the lungs with subsegmental regions of more lucent air tr apping the upper lungs consistent with small airway disease.. 3. Tracheobronchial malacia. 4. Enlargement of the central pulmonary arteries consistent with pulmonary nimo rial hypertension. 4. 6 mm soft tissue density exophytic lesion at the right kidney which could re present a complex proteinaceous/hemorrhagic cyst or renal cell carcinoma. Recom mend follow-up pre and postcontrast MRI or CT when patient is able to breath-ho ld.
--- NOTE | ~2025-02-13 | XR_ITS ---
EXAM/PROCEDURE: XR chest 1V portable - 02/13/2025 13:46 CDT HISTORY: 79 years old Female with shortness of breath TECHNIQUE: AP view(s) of the chest. COMPARISON: None available. FINDINGS: LUNGS/ PLEURA: Mild vascular congestion, bilateral interstitial and alveolar opacities. HEART/ MEDIASTINUM: Mild cardiomegaly. Atherosclerotic calcifications are seen. BONES: Degenerative changes. OTHER: Visualized upper abdomen is unremarkable. IMPRESSION: Mild vascular congestion. Superimposed infection cannot be excluded. Clinical correlation is recommen ded to rule out superimposed pneumonia. Short interval chest radiograph is recommended after appropri ate clinical therapy. Reviewed, dictated and finalized at location A. IMPRESSION: Mild vascular congestion. Superimposed infection cannot be excluded. Clinical c orrelation is recommended to rule out superimposed pneumonia. Short interval ch est radiograph is recommended after appropriate clinical therapy.
--- NOTE | 2025-02-13 13:24 | ECG_ITS ---
Test Date: 2025-02-13 13:31:45 Measurements Intervals [place] Rate: 73 P: 43 NC: 200 QRS: -45 QRSD: 122 T: 117 QT: 379 QTc: 419 Interpretive Statements SINUS RHYTHM LEFT ANTERIOR FASCICULAR BLOCK LEFT VENTRICULAR HYPERTROPHY AND ST-T CHANGE CANNOT R/O SEPTAL INFARCT, AGE INDETERMINATE BASELINE ARTIFACT- I, II, III, AVR, AVL, AVF, V1-V6 ABNORMAL ECG Compared to ECG 12/04/2024 15:55:01 NO SIGNIFICANT CHANGE Electronically Signed On 02-13-2025 13:32:44 CDT by Peterson Roque D.O.
--- NOTE | 2025-02-13 13:26 | ED.SOB ---
HPI - SOB/Dyspnea General Chief Complaint: Shortness of Breath/Dyspnea Stated Complaint: SOB Time Seen by Provider: 02/13/25 13:12 History of Present Illness HPI Narrative: Patient is a 72-year-old female who presents complaints of shortness of breath and cough. She reports she became congested 3 days ago. Last night her shortness of breath worsened. She denies any chronic cough, but uses a nebulizer treatment 5 times a day. Patient reports she has pulmonologists at last time she saw the curb supervisor they told her they could not confirm whether not she has COPD. Patient herself is a history chronic kidney disease, thyroid problems, hypertension, CHF, breathing problems. She denies any abdominal pain, back pain, recent fevers, or chest pain. Related Data Home Medications ?Medication ?Instructions ?Recorded ?Confirmed ?Last Taken ?Type amlodipine 5 mg tablet 5 mg PO DAILY 09/21/22 01/16/25 12/03/24 History oxybutynin chloride 10 mg 10 mg PO HS 09/21/22 01/16/25 12/03/24 History tablet,extended release 24 hr magnesium oxide 400 mg PO BID 09/15/23 01/16/25 Unknown History pregabalin 200 mg capsule 200 mg PO BID 09/15/23 01/16/25 12/03/24 History rosuvastatin 10 mg tablet 10 mg PO HS 09/15/23 01/16/25 12/03/24 History vortioxetine 20 mg tablet 20 mg PO DAILY 09/15/23 01/16/25 12/03/24 History (Trintellix) furosemide 20 mg tablet 20 mg PO DAILY 12/07/23 01/16/25 12/03/24 History minoxidil 2.5 mg tablet 2.5 mg PO DAILY 12/04/24 01/16/25 12/03/24 History Allergies Allergy/AdvReac Type Severity Reaction Status Date / Time NILTON Inhibitors Allergy Unknown Angioedema Verified 01/16/25 13:02 lisinopril Allergy Dyspnea / Verified 01/16/25 13:02 SOB Review of Systems Review of Systems: All systems reviewed & are unremarkable except as noted in HPI and below PMFSH Past Medical History Medical History Hx of thyroid cancer s/p total thyroidectomy Primary insomnia Anemia Cardiac pacemaker in situ Chronic kidney disease Carpal tunnel syndrome Kidney stones Anxiety Depression Hypothyroidism Diabetes Arthritis Renal disease Hiatal hernia GERD (gastroesophageal reflux disease) Pneumonia HTN (hypertension) HLD (hyperlipidemia) CHF (congestive heart failure) Bronchitis Asthma NICOLA (obstructive sleep apnea) Chronic obstructive pulmonary disease RLS (restless legs syndrome) Surgical History Surgical History History of cataract extraction History of total thyroidectomy Hx of elbow surgery bilateral ulnar release History of carpal tunnel release Hx of spinal surgery Hx of hysterectomy Hx of cholecystectomy Family History Family History Father Family history of heart disease in male family member before age 55 Family history of malignant neoplasm of brain Hypertension Pulmonary disease Mother Family history of heart disease in male family member before age 55 Family history of diabetes mellitus in first degree relative Social History Social History Social History: Surrogate medical decision maker: Neena Hazel, granddaughter. Code status: Full code. Smoking packs per day: 1 Smoking cigarettes per day: 20.0 Years smoked: 50 Smoking pack-years: 50.00 Smoking status: Former smoker Tobacco type: cigarettes Alcohol intake: never Substance use: never Substance use type: does not use Do You Feel Safe in your Home?: Yes Lack of Transportation: No Lack of Food: Never True Current Housing: I Have Housing Concerned About Future Housing: No Difficulty Paying Gas/Electric Bills: No Difficulty Paying for Meds: No Currently Unemployed: No Education: High School Diploma/GED Difficulty w/ Childcare or Family Care: No Living arrangements: alone Additional living arrangements comments: The patient lives in her own home in [place]. Occupation/Education: retired Additional occupation/education comments: Retired [email or web address]. Gender identity (if verbalized by the patient): Female 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: No Exam Narrative: GENERAL: Ill-appearing, well-nourished, non-toxic, in acute respiratory distress. HEAD: Normocephalic, atraumatic. NECK: Supple. No adenopathy, no masses. RESPIRATORY: Airway patent, respirations labored. + Rales + wheezing L side>R side CARDIOVASCULAR: Regular rate and rhythm without murmurs, rubs, or gallops. Peripheral pulses 2+ and equal bilaterally. ABDOMINAL: Soft, nontender, nondistended, no hepatosplenomegaly. Normoactive BS. MUSCULOSKELETAL: Moves all extremities. Strength/ROM intact without gross deformities. SKIN: Warm, dry, normal color. No rashes. NEURO: A&O X3. Speech clear. Cranial nerves II-XII intact. No ataxic movements. PSYCHIATRIC: Appropriate mood and affect. Normal interaction. Course Vital Signs Vital signs: Vital Signs Temperature 36.8 C 02/13/25 13:19 Pulse Rate 74 02/13/25 13:19 Respiratory Rate 15 02/13/25 13:19 Blood Pressure 157/90 H 02/13/25 13:19 Pulse Oximetry 91 02/13/25 13:19 Oxygen Delivery Room Air 02/13/25 13:19 Temperature 36.8 C 02/13/25 13:19 Pulse Rate 78 02/13/25 14:32 Respiratory Rate 20 02/13/25 14:32 Blood Pressure 157/90 H 02/13/25 13:19 Pulse Oximetry 95 02/13/25 13:50 Oxygen Delivery Nasal Cannula 02/13/25 13:50 Oxygen Flow Rate 2 02/13/25 13:50 MDM - SOB/Dyspnea MDM Narrative Medical decision making narrative: Patient is a 72-year-old female who presents complaints of shortness of breath and cough. She reports she became congested 3 days ago. Last night her shortness of breath worsened. She denies any chronic cough, but uses a nebulizer treatment 5 times a day. Patient reports she has pulmonologists at last time she saw the curb supervisor they told her they could not confirm whether not she has COPD. Patient herself is a history chronic kidney disease, thyroid problems, hypertension, CHF, breathing problems. She denies any abdominal pain, back pain, recent fevers, or chest pain. Pt's oxygen saturation remains in the high 80s/low 90s on RA, so she was placed on 2L NC. Labs Ordered: CBC, CMP, magnesium, INR, PTT, troponin, D-dimer, BNP, UA Imaging Ordered: Chest x-ray, CT chest/abdomen/pelvis Medications Ordered: DuoNeb, Solu-Medrol IV, magnesium 2 g IV Results: Pt's chest x-ray indicates Mild vascular congestion. Superimposed infection cannot be excluded. Clinical correlation is recommended to rule out superimposed pneumonia. Short interval chest radiograph is recommended after appropriate clinical therapy. Pt's CT scan indicates 1. No pulmonary embolism. Sensitivity decreased in the basilar segmental and more diffusely through the subsegmental pulmonary arteries due to moderate to severe respiratory motion artifact. 2. Right middle lobe collapse with additional mild atelectasis scattered throughout the remainder of the lungs with subsegmental regions of more lucent air trapping the upper lungs consistent with small airway disease.. 3. Tracheobronchial malacia. 4. Enlargement of the central pulmonary arteries consistent with pulmonary arterial hypertension. 4. 6 mm soft tissue density exophytic lesion at the right kidney which could represent a complex proteinaceous/hemorrhagic cyst or renal cell carcinoma. Recommend follow-up pre and postcontrast MRI or CT when patient is able to breath-hold. Diagnosis: COPD exacerbation Patient Education/Shared MDM: Results of imaging and lab work shared with patient. She endorses improvement following medication administration. 1645- Spoke with hospitalist, Meme, who is in agreement with plan for admission. 1700- Pt reports she doesn't want to be admitted to the hospital, but she doesn't want to sign out AMA. After further discussion, pt verbalized understanding of need for further work-up and evaluation. She agreed to admission to the hospital. Differential Diagnosis Differential diagnosis: Likely acute exacerbation of chronic obstructive airways disease, congestive heart failure, community acquired pneumonia and pulmonary embolism Lab Data Attestation: I reviewed the patient's lab results. 02/13/25 13:37 02/13/25 13:37 Labs: Lab Results 02/13/25 02/13/25 Range/Units 13:37 16:16 WBC 5.9 (4.5-10.0) K/mm3 RBC 4.92 (4.2-5.4) M/mm3 Hgb 13.3 (12.0-15.0) g/dL Hct 43.6 (37.0-47.0) % MCV 88.6 (80-100) fl MCH 27.0 (26-34) pg MCHC 30.5 L (32-36) g/dl RDW 15.1 H (11.5-14.5) % Plt Count 184 (150-375) k/mm3 MPV 10.6 H (7.4-10.4) fl Immature Gran % (Auto) 0.3 (0-0.5) % Neut % (Auto) 60.5 (45.5-73.1) % Lymph % (Auto) 20.6 (18.3-44.2) % [place] % (Auto) 12.2 H (2.6-8.5) % Eos % (Auto) 5.2 H (0-4.4) % Baso % (Auto) 1.2 (0.2-1.2) % Lymph # (Auto) 1.22 (0.9-3.2) K/mm3 [place] # (Auto) 0.7 H (0.1-0.6) K/mm3 Eos # (Auto) 0.3 (0-0.3) K/mm3 Baso # (Auto) 0.1 (0.0-0.1) K/mm3 Abs Immat Gran (auto) 0.02 (0.00-0.031) K/mm3 Absolute Neuts (auto) 3.6 (1.3-6.7) K/mm3 Absolute Nucleated RBC 0.000 (0.0-0.012) K/mm3 Nucleated RBC % 0.0 (0.0-0.2) % PT 13.3 (11.1-14.7) Seconds INR 1.0 APTT 27.6 (22.3-36.8) Seconds D-Dimer 1.23 H (<0.48) ug/mL Sodium 143 (137-145) mmol/L Potassium 4.0 (3.4-5.0) mmol/L Chloride 107 (98-107) mmol/L Carbon Dioxide 28 (22-30) mmol/L Anion Gap 8 (4-12) mmol/L BUN 18 H D (7-17) mg/dL Creatinine 1.56 H (0.7-1.0) mg/dL Estim Creat Clear Calc 32 ml/min Estimated GFR 32 L (59 - ) Glucose 102 (65-110) mg/dL Calcium 9.5 (8.4-10.2) mg/dL Magnesium 2.1 (1.6-2.3) mg/dL Total Bilirubin 0.8 (0.2-1.3) mg/dL AST 30 (14-36) U/L ALT 22 (6-35) U/L Alkaline Phosphatase 73 (38-126) U/L Troponin I 0.012 (0.000-0.034) ng/mL NT-Pro-B Natriuret Pep 134 H (19.9-100) pg/mL Total Protein 7.0 (6.3-8.2) g/dL Albumin 4.2 (3.5-5.1) g/dL Urine Color Yellow (Yellow) Urine Appearance Clear (Clear) Urine pH 7.0 (5.0-9.0) Ur Specific [place] 1.024 (1.001-1.035) Urine Protein Trace (Negative) mg/dL Urine Glucose (UA) 3+ H (Negative) mg/dL Urine Ketones Negative (Negative) mg/dL Ur Blood (Man) Negative (Negative) Urine Nitrate Negative (Negative) Urine Bilirubin Negative (Negative) Urine Urobilinogen 0.2 (<2.0) mg/dL Leukocyte Esterase Rfl Negative (Negative) MESFIN/UL Urine RBC 0-2 (0-2) /hpf Urine WBC 0-5 (0-3) /hpf Ur Squamous Epith Cells None seen (Few) /hpf Urine Bacteria None seen /hpf Urine Casts 0-2 ABG Data ABG results: 02/13/25 16:01 Puncture Site Right radial ABG pH 7.384 ABG pCO2 42.6 ABG pO2 65.1 L ABG PO2/FiO2 Ratio 2.33 ABG HCO3 24.9 ABG O2 Saturation 92.5 L ABG O2 Content 18.8 ABG Base Excess -0.3 A-a Gradient 84.3 Oxyhemoglobin 91.6 Total Hemoglobin 14.6 O2 Delivery Device Nasal cannula O2 Liters/Min 2.0 FiO2 28 Imaging Data Attestation: I personally reviewed and interpreted this imaging study as follows: Radiologist's impression: Impressions Chest X-Ray 02/13/25 14:19 IMPRESSION: Mild vascular congestion. Superimposed infection cannot be excluded. Clinical correlation is recommended to rule out superimposed pneumonia. Short interval chest radiograph is recommended after appropriate clinical therapy. Chest CTA 02/13/25 14:52 IMPRESSION: 1. No pulmonary embolism. Sensitivity decreased in the basilar segmental and more diffusely through the subsegmental pulmonary arteries due to moderate to severe respiratory motion artifact. 2. Right middle lobe collapse with additional mild atelectasis scattered throughout the remainder of the lungs with subsegmental regions of more lucent air trapping the upper lungs consistent with small airway disease.. 3. Tracheobronchial malacia. 4. Enlargement of the central pulmonary arteries consistent with pulmonary arterial hypertension. 4. 6 mm soft tissue density exophytic lesion at the right kidney which could represent a complex proteinaceous/hemorrhagic cyst or renal cell carcinoma. Recommend follow-up pre and postcontrast MRI or CT when patient is able to breath-hold. Discharge Plan Discharge Clinical Impression: Shortness of breath at rest, COPD exacerbation Patient Disposition: Still a Patient Condition: Guarded Prognosis Patient Language: Mongolian Prescriptions: No Action pregabalin 200 mg capsule 200 mg PO BID rosuvastatin 10 mg tablet 10 mg PO HS magnesium oxide 400 mg magnesium tablet 400 mg PO BID Trintellix 20 mg tablet 20 mg PO DAILY ipratropium-albuterol 0.5 mg-3 mg(2.5 mg base)/3 mL solution for nebulization 3 ml inhalation QID Qty: 180 3RF budesonide 0.5 mg/2 mL suspension for nebulization 0.5 mg inhalation DAILY Qty: 60 3RF furosemide 20 mg tablet 20 mg PO DAILY minoxidil 2.5 mg tablet 2.5 mg PO DAILY oxybutynin chloride 10 mg Tablet Extended Release 24hr 10 mg PO HS amlodipine 5 mg Tablet 5 mg PO DAILY albuterol sulfate 90 mcg/actuation HFA aerosol inhaler 2 puff inhalation QID PRN (Reason: shortness of breath or wheezing) Qty: 8.5 0RF albuterol sulfate 2.5 mg /3 mL (0.083 %) solution for nebulization 2.5 mg inhalation Q4-6H PRN (Reason: shortness of breath or wheezing) Qty: 180 2RF dapagliflozin propanediol [Farxiga] 10 mg tablet 10 mg PO DAILY Qty: 30 12RF azithromycin 250 mg tablet 500 mg PO 3XW Qty: 36 3RF Mounjaro 5 mg/0.5 mL pen injector 5 mg subcut WEEKLY Qty: 2 0RF levothyroxine [Unithroid] 75 mcg tablet 75 mcg PO DAILY@0630 Qty: 90 3RF Follow-up/Referrals: Jn Velásquez MD [Primary Care Provider] -
[2025-02-13] MEDS: IPRATROPIUM 0.5 MG/ALBUTEROL SULFATE 2.5 MG AMPUL.NEB 3 ML INHALATION ×4 (13:39→19:57)
[2025-02-13] MEDS: MAGNESIUM SULF 2 GM/WATER 50ML 2 GM/50 ML BAG IVPB (13:42)
[2025-02-13] MEDS: methylPREDNISolone SOD SUCC 125 MG VIAL IV PUSH (13:45)
[2025-02-13 13:55] LABS: Basophils Absolute Auto 0.1 K/mm3 (0.0-0.1); Basophils Percent Auto 1.2 % (0.2-1.2); Eosinophils Absolute Auto 0.3 K/mm3 (0-0.3); Eosinophils Percent Auto 5.2 % (0-4.4); Hematocrit 43.6 % (37.0-47.0); Hemoglobin 13.3 g/dL (12.0-15.0); Immature Granulocyte Absolute 0.02 K/mm3 (0.00-0.031); Immature Granulocyte Percent A 0.3 % (0-0.5); Lymphocytes Absolute Auto 1.22 K/mm3 (0.9-3.2); Lymphocytes Percent Auto 20.6 % (18.3-44.2); Mean Corpuscular HGB Conc 30.5 g/dl (32-36); Mean Corpuscular Volume 88.6 fl (80-100); Mean Platelet Volume 10.6 fl (7.4-10.4); Monocytes Absolute Auto 0.7 K/mm3 (0.1-0.6); Monocytes Percent Auto 12.2 % (2.6-8.5); Neutrophils Absolute Auto 3.6 K/mm3 (1.3-6.7); Neutrophils Percent Auto 60.5 % (45.5-73.1); Platelet Count Result 184 k/mm3 (150-375); Red Blood Count 4.92 M/mm3 (4.2-5.4); Red Cell Distribution Width 15.1 % (11.5-14.5); White Blood Count 5.9 K/mm3 (4.5-10.0)
[2025-02-13 14:05] LABS: Alanine Aminotransferase 22 U/L (6-35); Albumin Level 4.2 g/dL (3.5-5.1); Alkaline Phosphatase 73 U/L (38-126); Anion Gap 8 mmol/L (4-12); Aspartate Amino Transferase 30 U/L (14-36); Bilirubin,Total 0.8 mg/dL (0.2-1.3); Blood Urea Nitrogen 18 mg/dL (7-17); Calcium 9.5 mg/dL (8.4-10.2); Carbon Dioxide 28 mmol/L (22-30); Chloride 107 mmol/L (98-107); Estimated CRCL calculation 32 ml/min; Estimated Glomerular Filt Rate 32; Glucose 102 mg/dL (65-110); Magnesium 2.1 mg/dL (1.6-2.3); Sodium 143 mmol/L (137-145)
[2025-02-13 14:08] LABS: Prothrombin Time 13.3 Seconds (11.1-14.7)
[2025-02-13 14:09] LABS: Partial Thromboplastin Time 27.6 Seconds (22.3-36.8)
[2025-02-13 14:17] LABS: NT Pro B Type Natriuretic Pept 134 pg/mL (19.9-100); Troponin I 0.012 ng/mL (0.000-0.034)
[2025-02-13 14:18] LABS: D Dimer 1.23 ug/mL (<0.48)
--- OUTSIDE RECORDS SUMMARY | 2025-02-13 14:38 | XMS_ITS | Patient Health Record ---
Author Organization [facility] Address [address] [place] [address] Support Name Relationship Address Phone Jacy Mills Guarantor Unknown [phone] Reason For Referral No Information Plan Of Treatment No Information
--- OUTSIDE RECORDS SUMMARY | 2025-02-13 14:39 | XMS_ITS | CONTINUITY OF CARE DOCUMENT ---
Author Name narinder sterlingjud Address Unknown Organization [facility] Address [address] [place] [address] Phone [phone] Care Team Providers Care Airport Refueling Handler Name Role Phone Braulio KING, Roberto Carlos Unavailable SIOBHAN KING, SUE Unavailable [phone] SUE MCCANN MD Unavailable PROBLEMS Condition Status Date Provider Notes Abnormal nuclear stress test active Roberto Carlos Ramsey MD Shortness of breath active Faisal Carlos MD Hx of tobacco abuse active Penny Melendez Dizziness active Faisal Carlos MD Diaphoresis active Roberto Carlos Ramsey MD S/P EXPLANTED Biotronik dc (MRI Safe) pm completed - Armani Valencia Bradycardia sinus completed - Staci Diaz NP Chronotropic incompetence active Faisal Jiang i, MD Hypertension active Roberto Carlos Ramsey MD Arthritis active Roberto Carlos Ramsey MD Fatigue active Roberto Carlos Ramsey MD Depression active Roberto Carlos Ramsey MD Aortic regurgitation, mild-moderate active Tyrell Berumen COPD active Staci Diaz NP Spinal stenosis, lumbar region with neurogenic claudication active Staci Diaz NP Chest pain-type to be determined active Cedric Ahmedzai Orthostatic hypotension active Jason Pfeiffer y CHF - diastolic active Staci Green HIV NURSE Aortic stenosis active Staci Green HIV NURSE Chronic kidney disease stage 2 active Staci Diaz HIV NURSE PVD active Penny Melendez Abdominal bruit active Roberto Carlos Ramsey MD Anxiety active Roberto Carlos Ramsey MD Obesity active Armani Valencia Bacteremia S/P PACEMAKER EXPLANTATION active Armani Valencia Sleep apnea, obstructive - o n CPAP active Roberto Carlos Ramsey MD Leg pain completed - Staci Diaz HIV NURSE Leg edema active Faisal Carlos MD Carotid artery stenosis, <50 % ICA b/l active Roberto Carlos Ramsey MD Hypothyroidism active Roberto Carlos Ramsey MD ENCOUNTERS Date Type Provider Location Encounter Diag nosis 12/14 - 2 In-person encounter Office Visit Roberto Carlos Ramsey MD [facility] Aortic stenosisCHF - diastolic 12/13 - 2 In-person encounter Office Visit Roberto Carlos Ramsey MD [facility] Orthostatic hypotension 11/11 - 11/11 In-person encounter Office Visit Roberto Carlos Ramsey MD [facility] 0 - 0 In-person encounter Office Visit Roberto Carlos Ramsey MD [facility] 07/06 - 07/07 In-person encounter Office Visit Roberto Carlos Ramsey MD [facility] 05/04 - 05/08 In-person encounter Office Visit Roberto Carlos Ramsey MD [facility] 03/11 - 03/11 In-person encounter Office Visit Roberto Carlos Ramsey MD [facility] 02/25 - 02/25 In-person encounter Office Visit Roberto Carlos Ramsey MD [facility] Chest pain-type to be determined - In-person encounter Office Visit Roberto Carlos Ramsey MD [facility] 06/04 - 06/08 In-person encounter Office Visit Roberto Carlos Ramsey MD [facility] 03/05 - 03/08 In-person encounter Office Visit Roberto Carlos Ramsey MD [facility] 12/25 - 01/04 In-person encounter Office Visit Roberto Carlos Ramsey MD [facility] Leg painBradycardia sinusCOPDSpinal sten osis, lumbar region with neurogenic claudicationChronic kidney disease stage 2 03/13 - 03/13 In-person encounter Office Visit Roberto Carlos Ramsey MD [facility] Hx of tobacco abusePVD 02/14 - 02/18 In-person encounter Office Visit Roberto Carlos Ramsey MD [facility] 02/09 - 02/09 In-person encounter Office Visit Roberto Carlos Ramsey MD [facility] Aortic regurgitation, mild-moderate 0 - In-person encounter Office Visit Roberto Carlos Ramsey MD [facility] 12/22 - 12/22 In-person encounter Office Visit Roberto Carlos Ramsey MD [facility] Hx of tobacco abuse 11/23 - 11/23 In-person encounter Office Visit Roberto Carlos Ramsey MD [facility] Abdominal bruit 03/25 - 04/06 In-person encounter Office Visit Roberto Carlos Ramsey MD [facility] 12/10 - 12/15 In-person encounter Office Visit Roberto Carlos Ramsey MD [facility] Carotid artery stenosis, <50% ICA b/lSle ep apnea, obstructive - on CPAPArthritisFatigueAnxietyDepression 12/09 - 12/17 In-person encounter Office Visit Roberto Carlos Ramsey MD [facility] Carotid artery stenosis, <50% ICA b/lS/P EXPLANTED Biotronik dc (MRI Safe) pmBacteremia S/P PACEMAKER EXPLANTATIONObesity 11/24 - 11/28 In-person encounter Office Visit Roberto Carlos Ramsey MD [facility] HypothyroidismDiaphoresisHypertensionArt hritis - In-person encounter Office Visit Roberto Carlos Ramsey MD [facility] Bacteremia S/P PACEMAKER EXPLANTATION - In-person encounter Office Visit Faisal Carlos MD [facility] Leg edemaSleep apnea, obstructive - on CPAPChronotropic incompetence 12/14 - 12/17 In-person encounter Office Visit Faisal Carlos MD [facility] Carotid artery stenosis, <50% ICA b/l 11/22 - 11/25 In-person encounter Office Visit Faisal Carlos MD [facility] Shortness of breathHx of tobacco abuseDizzinessHypothyroidismDiaphoresis VITAL SIGNS Date Observation Value Provider Body Mass Index (Ratio) 46.45 kg/m2 Cedric Valdez blood pressure, diastolic 66 mm[Hg] [facility] blood pressure, systolic 144 mm[Hg] [facility] oxygen saturation, oximetry 97 % [facility] respiratory rate E&M 20 /min [facility] pulse rate 64 /min [facility] weight E&M 254 [lb_av] M[facility]ed With [facility] blood pressure, cuff size regular Vi pin [facility] height E&M 62 [in_i] Merged With [facility] Body Mass Index (Ratio) 43.53 kg/m2 Cong Salomonty blood pressure, cuff size large Ke rri uecobre [facility] blood pressure, diastolic 72 mm[Hg] Ke rri uenebanner blood pressure, systolic 126 mm[Hg] Ker ri [facility] oxygen saturation, oximetry 91 % Nia Montez pulse rate 65 /min Nia Akash [facility] weight E&M 238 [lb_av] Nia Titoe [facility] height E&M 62 [in_i] Nia Titoe [facility] Body Mass Index (Ratio) 44.81 kg/m2 Cong duenas Damion blood pressure, cuff size large Ke rri Grnedranenfeld blood pressure, diastolic 80 mm[Hg] Ke rri Gruenenfeld blood pressure, systolic 122 mm[Hg] Laurie ri Virgie oxygen saturation, oximetry 95 % Nia Virgie respiratory rate E&M 12 /min Nia Amin miguelangel pulse rate 68 /min Nia Bustos [facility] weight E&M 245 [lb_av] Nia Francise [facility] height E&M 62 [in_i] Nia Akash [facility] Body Mass Index (Ratio) 41.88 kg/m2 [...] pressure, diastolic 58 mm[Hg] Elijah lua Fendler HIV NURSE blood pressure, systolic 140 mm[Hg] Oliva horne Fendler HIV NURSE oxygen saturation, oximetry 93 % Nia Montez respiratory rate E&M 14 /min Nia Amin miguelangel pulse rate 62 /min Nia Bustos er weight E&M 221 [lb_av] Nia Akash [facility] height E&M 62 [in_i] Nia Bustos er Body Mass Index (Ratio) 38.95 kg/m2 Ike Ramsey MD blood pressure, diastolic 61 mm[Hg] Li nkLog blood pressure, systolic 114 mm[Hg] Kamran kLog blood pressure, diastolic 61 mm[Hg] Hallie Thapa blood pressure, systolic 114 mm[Hg] [facility] darius Thapa oxygen saturation, oximetry 94 [...] er height E&M 62 [in_i] Nia Gruenenfe [facility] Body Mass Index (Ratio) 33.47 kg/m2 [...] smith Matthews oxygen saturation, oximetry 99 % Lyndon Matthews respiratory rate E&M 16 /min Lyndon Matthews pulse rate 77 /min Tomás Matthews weight E&M 208 [lb_av] Lyndon Matthews height E&M 62 [in_i] Tomás Matthews [...] swatitraceyjesus pulse rate 79 /min Nia Bustos [facility] weight E&M 213 [lb_av] Nia Bustos [facility] height E&M 62 [in_i] Nia Bustos [facility] Body Mass Index (Ratio) 38.41 kg/m2 [...] Gruenenf pulse rate 52 /min Nia Bustos [facility] oxygen saturation, oximetry 94 % Nia [...] Ysabel Norris blood pressure, diastolic 58 mm[Hg] Ga gonzales Norris blood pressure, systolic 136 mm[Hg] Ruthie sera Norris pulse rate 68 /min Ysabel Norris oxygen saturation, oximetry 96 % Ysabel Norris respiratory rate E&M 15 /min Ysabel Norris Body Mass Index (Ratio) 38.04 kg/m2 Sylvie kelley weight E&M 208 [lb_av] Ysabel Norris blood pressure, diastolic 71 mm[Hg] Ga gonzales Norris blood pressure, systolic 141 mm[Hg] [...] Estab. 6 platelet count 268 X10E3/UL [employer] [phone]/02/2 6 red blood cell distribution width 14.5 [...] 0-149 1 cholesterol, serum 156 mg/dL [employer] [phone]/04/1 1 basophil count, absolute 0.1 x10E3/uL [employer] [...] Estab. 1 platelet count 366 X10E3/UL [employer] [phone]/04/1 1 red blood cell distribution width 14.0 [...] 3.5-5.2 1 sodium, serum 141 mmol/L [employer] [phone]/04/1 1 urea nitrogen/creatinine ratio, serum 13 [employer] [...] mg tablet completed - 07/06 Zuly Nalluri HIV NURSE Farxiga 5 mg tablet completed Take 1 [...] EVERY DAY 02/25 - 07/06 Zuly Silvestre HIV NURSE nitroglycerin 0.4 mg tablet, sublingual active PLACE 1 TAB UNDER TONGUE EVERY 5 MIN NEEDED FOR CHEST PAIN (MAX 3 DOSES).IF NO RELIEF AFTER 3RD DOSE GO TO ER 02/25 Staci Green HIV NURSE Breo Ellipta 100-25 mcg/dose blister with device [...] every morning 01/13 - 02/25 Carley Wynn HIV NURSE #30, 30 days supply, Prescribed by CARLEY [...] - 06/10 Nia Ridleyjihanprachi VITAMIN D (ERGOCALCIFEROL) 12281 UNIT ORAL CAPSULE completed once a week - 06/10 Geraldine Torres SOCIAL HISTORY Date Observation Value Provider alcohol use no Staci Green HIV NURSE smoking, year quit 2018 Staci Angulo patrick HIV NURSE number of years as a smoker 50 a Staci Green HIV NURSE smoking history, tot al pack/day 1 ppd Staci Green HIV NURSE cigarette use yes Staci Green HIV NURSE smoking status Former smoker Staci ann HIV NURSE alcohol use no Jason Bruno smoking, year [...] Francis elder smoking status Former smoker Nia iperceelder smoking, year quit 2018 Carley Wynn HIV NURSE number of years as a smoker 50 a Carley Wynn HIV NURSE smoking status Former smoker Carley queen HIV NURSE smoking history, tot al pack/day 1 ppd Carley Wynn HIV NURSE cigarette use yes Carley velarde HIV NURSE social history E&M S moking History: Justin [...] cess ation, patient education and counseling yes Jesise Sujatha alcohol use no Jessie Sujatha cigarette use yes Jessie Sujatha smoking status Current every day smoker D acia Sujatha social history reviewed E&M revi ewed - no changes required Tyrell Berumen social history E&M S moking History: P atient currently smokes every day. P atient has been counseled to quit. Tyrell Berumen smoking/tobacco cess ation, patient education and counseling yes Lyndon Matthews alcohol use no Lyndon Matthews cigarette use yes Lyndon Matthews smoking status Current every day smoker [...] jesus smoking status Former smoker Nia Baker banner social history reviewed E&M revi ewed - no changes required Roberto Carlos Ramsey MD alcohol use no Nia Ridleynedranicollestannadeem [facility] cigarette use yes Nia Ridleycarlstan jesus smoking status Former smoker [facility]ia [facility] smoking status Former smoker Roberto Carlos pierce [...] Faisal Carlos MD cigarette use yes Ysabel Norris smoking status [...] Payer name Policy type / Coverage type [place] [employer] party ID [id number] (PPO C-SNP) [employer] insurance [employer] [id number] [facility] Medicaid 1 [id number] ADVANCE DIRECTIVES Name Date DISCUSSED - NO DECISION MADE TREATMENT PLAN Date Name Performer [id number],C,w ill check PFT w ill send in breo inhaler for now Cedric Valdez [id number],C,s ays she has persistent fatigue and it has been affecting her routine life w ill check PFT h er Cath showed mild CAD s he has diastolic dysfunction Cedric Valdez [id number],C,c ath 04/2023 F INAL RESULTS: T he [...] with increased LVEDP consistent with diastolic dysfunction [facility] [id number],C, c arotids: 07/15/22 Mild plaque with less than 50% stenosis of the internal carotid arteries bilaterally. Vertebral flow is antegrade bilaterally. [facility] [id number],C, B P today: 140/64 P rior BP: 130/80 (07/06/2023) Labs Reviewed: C reat: 2.02 (02/16/2020) C hol: 156 (02/16/2020) HDL: 66 (02/16/2020) [facility] [id number],C,will check PF T [facility] [id number],C, N o recurrent episodes of chest pain [facility] [id number],C,moderate Adam Silvestre HIV NURSE [id number],C, P FTs: minimal obstructive airways disease and significant decrease in FEV1 when compared to previous study. 6 minute walk test: ambulated 6 minutes. O2 sats 95-96% on room air. H as appointment with commercial food instructor Zuly Silvestre NP [id number],C,N o recurrent episodes of chest pain Zuly Chapmanluri HIV NURSE [id number],C, B P today: 130/80 P rior BP: 160/80 (05/04/2023) H er updated medication list for this problem includes: Amlodipine 5 Mg Tablet (Amlodipine) ..... Take 1 tablet by mouth once a day Hydralazine 50 Mg Tablet (Hydralazine) ..... Take 1 tablet by mouth three times a day Zuly Nalluri HIV NURSE [id number],C, n ot compliant with cpap Zuly Nalluri HIV NURSE [id number],C, h as been in contact with [facility] to have weight loss surgery. started on ozempic yesterady Zuly Nalluri HIV NURSE [id number],C, T race bilateral leg edema. on lasix 20 mg Po Zuly Nalluri HIV NURSE [id number],C, c arotids: 07/15/22 Mild plaque with less than 50% stenosis of the internal carotid arteries bilaterally. Vertebral flow is antegrade bilaterally. Zuly Nalluri HIV NURSE [id number],C, H er updated medication list for this problem includes: Levothyroxine 88 Mcg Tablet (Levothyroxine) ..... 1 tablet once a day Zuly Nalluri HIV NURSE [id number],C,Will order 2 week tele monitor Zuly Nalluri HIV NURSE [id number],C, S uggested patient lose more weight. BP [...] once a day Roberto Carlos Ramsey MD [id number],C,l ab tests from 04/19/23 showed creatinine of 1.86 and BUN of 29 Roberto Carlos Ramsey MD [id number],W, H as mild bilateral leg edema. Blue Herrmann [id number],C, Blue serrato [id number],C, S uggested patient lose more weight. BP [...] tablet by mouth once a day Blue Bakerbanner [id number],S,l ab tests from 04/19/23 showed creatinine of 1.86 and BUN of 29 Blue Bakerbanner [id number],S, P FTs: minimal obstructive airways disease and significant decrease in FEV1 when compared to previous study. 6 minute walk test: ambulated 6 minutes. O2 sats 95-96% on room air. H er updated medication list for this problem includes: Albuterol Sulfate 90 Mcg/actuation Hfa Aerosol Inhaler (Albuterol sulfate) ..... Inhale 1 puff using inhaler three times a day as needed [facility] [id number],S, C ontinues to feel fatigued. Blue Herrmann [id number],N, Roberto Carlos pierce MD [id number],W, H er updated medication list for this [...] go to er Roberto Carlos Ramsey MD [id number],C,e cho today C ONCLUSIONS: 1 . Technically [...] Moderate aortic wall calcification. Carley Wynn NP [id number],C, stress test - will await for results [...] experience SOB/HOWELL and fatigue Carley Wynn NP [id number],C,compliant wit h cpap Carley Wynn NP [id number],C, B P today: 126/80 P rior BP: 140/58 (02/25/2023) Labs Reviewed: C reat: 2.02 (02/16/2020) C hol: 156 (02/16/2020) HDL: 66 (02/16/2020) Her updated medication list for this problem includes: Hydralazine 50 Mg Tablet (Hydralazine) ..... Take 1 tablet by mouth three times a day Amlodipine 5 Mg Tablet (Amlodipine) ..... Take 1 tablet by mouth once a day Carley Wynn NP [id number],C,o n [facility] Carley Wynn HUNG [id number],C,on supplement ation. Carley Wynn HUNG [id number],C,c arotids: 07/15/22 Mild plaque with less than 50% stenosis of the internal carotid arteries bilaterally. Vertebral flow is antegrade bilaterally. checking nuclear stress test. unable to walk on treadmill d/t back, hip and knee pain. Carley Wynn HUNG [id number],C, B P today: 140/58 P rior BP: [...] mouth once a day Carley Wynn HUNG [id number],C,. Pt reports that a couple of days [...] and prn SL NTG Carley Álvarezlottie PERSAUD [id number],C, Roberto Carlos pierce MD [id number],S, H er updated medication list for this problem includes: Hydrochlorothiazide 25 Mg Tablet (Hydrochlorothiazide) ..... Take 1 tablet by mouth once a day Amlodipine 10 Mg Tablet (Amlodipine) ..... Take 1 tablet by mouth once a day Orders: T obacco cessation counseling, 3-10minutes (63556) Roberto Carlos Ramsey MD [id number],C, Roberto Carlos pierce MD [id number],C, O rders: E KG (CPT-45325) Roberto Carlos Ramsey MD [id number],C,C ontinues to be SOB and currently does not know if she needs supplemental O2. I will start her on Albuterol inhaler and Breo ellipta inhaler and see how she does. Will check PFTs and 6 minute walk test . O rders: 9 9215 HIGH 40-54min (CPT-25895) C arotid Duplex Bilateral (CPT-42506) F VC - 19862 (58587) F RC - 80048 (39817) D LCO - 31478 (27080) 6 minute walk test (CPT-19407) Her updated medication list for this problem includes: Amlodipine 10 Mg Tablet (Amlodipine) ..... Take 1 tablet by mouth once a day Hydrochlorothiazide 25 Mg Tablet (Hydrochlorothiazide) ..... 1 tablet by mouth once a day Cedric Valdez [id number],S, O rders: 9 9215 HIGH 40-54min (CPT-51962) C arotid Duplex Bilateral (CPT-99517) F VC - 39061 (76475) F RC - 84142 (93223) D LCO - 12144 (76195) 6 minute walk test (CPT-12591) Cedric Valdez [id number],C, P FTs: minimal obstructive airways disease and [...] as needed Orders: 9 9215 HIGH 40-54min (CPT-01904) C arotid Duplex Bilateral (CPT-53382) F VC - 80007 (82273) F RC - 53989 (99960) D LCO - 73678 (26825) 6 minute walk test (CPT-82347) Cedric Valdez [id number],C,A dvised to cut back salt intake. Will start her on Amlodipine 10 mg and see how she does. Will check carotid duplex as she has mild carotid bruits. BP today: 191/80 P rior BP: 110/70 (03/05/2022) Labs Reviewed: C reat: 2.02 (02/16/2020) C hol: 156 (02/16/2020) HDL: 66 (02/16/2020) Orders: 9 9215 HIGH 40-54min (CPT-80640) C arotid Duplex Bilateral (CPT-46988) F VC - 67233 (10493) F RC - 83634 (38544) D LCO - 11851 (78888) 6 minute walk test (CPT-96560) Her updated medication list for this problem includes: Amlodipine 10 Mg Tablet (Amlodipine) ..... Take 1 tablet by mouth once a day Hydrochlorothiazide 25 Mg Tablet (Hydrochlorothiazide) ..... 1 tablet by mouth once a day Cedric Valdez [id number],S, O rders: 9 9215 HIGH 40-54min (CPT-63377) C arotid Duplex Bilateral (CPT-74612) F VC - 41562 (06502) F RC - 20118 (82974) D LCO - 86846 (34816) 6 minute walk test (CPT-03819) Cedric Valdez [id number],C,H ad telemetry one week: 2 second episode of NSVT. Staci Diaz NP [id number],S,T he patient is using CPAP on a regular basis. The patient has been benefiting from therapy and should continue use. Staci Diaz NP [id number],S, H er updated medication list for this problem includes: Hydrochlorothiazide 25 Mg Tablet (Hydrochlorothiazide) ..... 1 tablet by mouth once a day Staci Diaz NP [id number],S,e cho shows mild to moderate AVR. Next echo in one year. Staci Diaz NP [id number],S,P FTs: minimal obstructive airways disease and significant decrease in FEV1 when compared to previous study. 6 minute walk test: ambulated 6 minutes. O2 sats 95-96% on room air. Staci Diaz NP [id number],S, O rders: F VC - 28415 (48680) F RC - 45251 (37765) D LCO - 46392 (84278) 6 minute walk test (CPT-08629) C OMPREHENSIVE METABOLIC PANEL, W/EGFR (90425) C BC (INCLUDES DIFF/PLT) (6399) L IPID PANEL (7600) H EMOGLOBIN A1c (496) B TYPE NATRIURETIC PEPTIDE (BNP) (10036) P ROBNP, N TERMINAL (87652) M onitor - Telemetry (Mobile Cardiac) (CPT-88471) Roberto Carlos Ramsey MD [id number],S,c heck PFTs O rders: F VC - 86893 (49700) F RC - 43409 (71000) D LCO - 86742 (61093) 6 minute walk test (CPT-16917) C OMPREHENSIVE METABOLIC PANEL, W/EGFR (92787) CBC (INCLUDES DIFF/PLT) (6399) L IPID PANEL (7600) H EMOGLOBIN A1c (496) B TYPE NATRIURETIC PEPTIDE (BNP) (62691) P ROBNP, N TERMINAL (26615) M onitor - Telemetry (Mobile Cardiac) (CPT-68351) Roberto Carlos Ramsey MD [id number],S, O rders: C omplete Echo (CPT-20677) 6 minute walk test (CPT-76321) C OMPREHENSIVE METABOLIC PANEL, W/EGFR (20076) C BC (INCLUDES DIFF/PLT) (6399) L IPID PANEL (7600) H EMOGLOBIN A1c (496) B TYPE NATRIURETIC PEPTIDE (BNP) (69141) P ROBNP, N TERMINAL (93110) M onitor - Telemetry (Mobile Cardiac) (CPT-35775) 9 9213 LTD 20-29min (CPT-61826) Roberto Carlos Ramsey MD [id number],C, O rders: C omplete Echo (CPT-38985) F VC - 68904 (23133) F RC - 98944 (30641) D LCO - 90970 (81489) 6 minute walk test (CPT-63685) C OMPREHENSIVE METABOLIC PANEL, W/EGFR (29538) C BC (INCLUDES DIFF/PLT) (6399) L IPID PANEL (7600) H EMOGLOBIN A1c (496) B TYPE NATRIURETIC PEPTIDE (BNP) (15374) P ROBNP, N TERMINAL (45975) M onitor - Telemetry (Mobile Cardiac) (CPT-50924) 9 9213 LTD 20-29min (CPT-84161) Roberto Carlos Ramsey MD [id number],W,w ill check echo, PFTs, 6 minute walk test, labs. H er updated medication list for this problem includes: Hydrochlorothiazide 25 Mg Tablet (Hydrochlorothiazide) ..... 1 tablet by mouth once a day Orders: C omplete Echo (CPT-63319) 6 minute walk test (CPT-97532) C OMPREHENSIVE METABOLIC PANEL, W/EGFR (76355) C BC (INCLUDES DIFF/PLT) (6399) L IPID PANEL (7600) H EMOGLOBIN A1c (496) B TYPE NATRIURETIC PEPTIDE (BNP) (31227) P ROBNP, N TERMINAL (70018) M onitor - Telemetry (Mobile Cardiac) (CPT-21437) Roberto Carlos Ramsey MD [id number],W,w ill check echo, PFTs, 6 minute walk test, labs. Staci Diaz HUNG [id number],S,check PFTs Sh maribell Diaz UHNG [id number],S, Stacidana Lopez kamran HIV NURSE [id number],S,T he patient is using CPAP on a regular basis. The patient has been benefiting from therapy and should continue use. Staci Joe PERSAUD [id number],W,m od AR per last echo. Will recheck echo Staci Diaz HUNG [id number],W,h as been in contact with [facility] to have weight loss surgery. Staci Diaz NP Electrophysiology:F/ U with pulmonology as scheduled T he following medications were removed from the medication list: Breo Ellipta 100-25 Mcg/dose Blister With Device (Fluticasone furoate-vilanterol) ..... Inhale 1 puff as directed once a day Her updated medication list for this problem includes: Breztri Aerosphere 160-9-4.8 Mcg/actuation Hfa Aerosol Inhaler (Ujiyjsghaz-fhuoqrjw-mfiwkoscmm) ..... Inhale 2 puffs by mouth twice [...] 3rd dose go to er Staci Green HIV NURSE Electrophysiology:Will repeat ec ho. Staci Petre PERSAUD Electrophysiology:Check CMP Angelo Green NP Electrophysiology: p er nephro Jason Bruno Electrophysiology:Th e patient is using CPAP on a regular basis. The patient has been benefiting from therapy and should continue use. Jason Salomonty Electrophysiology:Continue medic al therapy Jason Damion Electrophysiology:Ca rotids <50% b/l [facility] Electrophysiology: H er updated medication list for [...] by mouth daily Jason Bruno Electrophysiology Jason I[place] Electrophysiology:per nephro [place] [facility] Electrophysiology:[facility] Electrophysiology:below baseline [facility] Electrophysiology: T race bilateral leg edema. on lasix 20 mg Po J anuary 2023 r ecommend continued use of lasix, i have instructed the patient to take additional dose if needed for swelling [facility] Electrophysiology:check carpotid study [facility] Electrophysiology:[facility] low dost lung CT given Hx of tobacco abuse. m ild COPD on latest PFTS m inimal diffusion defect on latest PFTs s he states there is minimal benefit from inhalers [facility] Electrophysiology:Th e patient is using CPAP on a regular basis. The patient has been benefiting from therapy and should continue use. [facility] Electrophysiology:wi ll check PFT w ill send [...] pain Cedricbruno Daniels Electrophysiology:moderate Neeli ma Nalluri HIV NURSE Electrophysiology: P FTs: minimal obstructive airways disease and significant decrease in FEV1 when compared to previous study. 6 minute walk test: ambulated 6 minutes. O2 sats 95-96% on room air. H as appointment with commercial food instructor Zuly Knappri HUNG Electrophysiology:No recurrent e pisodes of chest pain Zuly Nalluri HIV NURSE Electrophysiology: B P today: 130/80 P rior BP: 160/80 (05/04/2023) H er updated medication list for this problem includes: Amlodipine 5 Mg Tablet (Amlodipine) ..... Take 1 tablet by mouth once a day Hydralazine 50 Mg Tablet (Hydralazine) ..... Take 1 tablet by mouth three times a day Zuly Nalluri HIV NURSE Electrophysiology: n ot compliant with cpap Zuly Nalluri HIV NURSE Electrophysiology: h as been in contact with [facility] to have weight loss surgery. started on ozempic yesterady Zuly Nalluri HIV NURSE Electrophysiology: T race bilateral leg edema. on lasix 20 mg Po Zuly Nalluri HIV NURSE Electrophysiology: c arotids: 07/15/22 Mild plaque with less than 50% stenosis of the internal carotid arteries bilaterally. Vertebral flow is antegrade bilaterally. Zuly Nalluri HIV NURSE Electrophysiology: H er updated medication list for this problem includes: Levothyroxine 88 Mcg Tablet (Levothyroxine) ..... 1 tablet once a day Zuly Nalluri HIV NURSE Electrophysiology:Will order 2 w [facility] tele monitor Zuly Nalluri HIV NURSE Electrophysiology - 3 month follow up with [...] - needs l eft hearty cath ath [facility] with Dr. Sonny Ramsey MD Telehealth - needs l eft hearty cath ath [facility] with Dr. Dennis: H er updated [...] day Orders: T obacco cessation counseling, 3-10minutes (42446) Roberto Carlos Ramsey MD Electrophysiology- Roberto Carlos garcia MD Electrophysiology-: O rders: E KG (CPT-29853) Roberto Carlos Ramsey MD Electrophysiology:Co ntinues to be SOB and currently does not know if she needs supplemental O2. I will start her on Albuterol inhaler and Breo ellipta inhaler and see how she does. Will check PFTs and 6 minute walk test . O rders: 9 9215 HIGH 40-54min (CPT-96883) C arotid Duplex Bilateral (CPT-78300) F VC - 05568 (20398) F RC - 44735 (24843) D LCO - 47614 (96761) 6 minute walk test (CPT-16969) Her updated medication list for this problem includes: Amlodipine 10 Mg Tablet (Amlodipine) ..... Take 1 tablet by mouth once a day Hydrochlorothiazide 25 Mg Tablet (Hydrochlorothiazide) ..... 1 tablet by mouth once a day Roberto Carlos Ramsey MD Electrophysiology: O rders: 9 9215 HIGH 40-54min (CPT-73064) C arotid Duplex Bilateral (CPT-11674) F VC - 04368 (81374) F RC - 04270 (22237) D LCO - 54376 (87046) 6 minute walk test (CPT-95323) Roberto Carlos Ramsey MD Electrophysiology: P FTs: [...] as needed Orders: 9 9215 HIGH 40-54min (CPT-64050) C arotid Duplex Bilateral (CPT-27445) F VC - 04186 (14431) F RC - 39189 (44015) D LCO - 83989 (83169) 6 minute walk test (CPT-68252) Roberto Carlos Ramsey MD Electrophysiology:Ad vised to cut back salt intake. Will start her on Amlodipine 10 mg and see how she does. Will check carotid duplex as she has mild carotid bruits. BP today: 191/80 P rior BP: 110/70 (03/05/2022) Labs Reviewed: C reat: 2.02 (02/16/2020) C hol: 156 (02/16/2020) HDL: 66 (02/16/2020) Orders: 9 9215 HIGH 40-54min (CPT-11978) C arotid Duplex Bilateral (CPT-25721) F VC - 24569 (45001) F RC - 23300 (70956) D LCO - 61951 (23827) 6 minute walk test (CPT-71096) Her updated medication list for this problem includes: Amlodipine 10 Mg Tablet (Amlodipine) ..... Take 1 tablet by mouth once a day Hydrochlorothiazide 25 Mg Tablet (Hydrochlorothiazide) ..... 1 tablet by mouth once a day Roberto Carlos Ramsey MD Electrophysiology: O rders: 9 9215 HIGH 40-54min (CPT-76828) C arotid Duplex Bilateral (CPT-46170) F VC - 57409 (45322) F RC - 58946 (25058) D LCO - 67322 (29311) 6 minute walk test (CPT-61614) Roberto aCrlos Ramsey MD Electrophysiology:Hamm d telemetry one week: [...] NP Electrophysiology: O rders: F VC - 54537 (73963) F RC - 03128 (09492) D LCO - 37871 (26664) 6 minute walk test (CPT-03581) C OMPREHENSIVE METABOLIC PANEL, W/EGFR (55032) C BC (INCLUDES DIFF/PLT) (6399) L IPID PANEL (7600) H EMOGLOBIN A1c (496) B TYPE NATRIURETIC PEPTIDE (BNP) (99721) P ROBNP, N TERMINAL (05329) M onitor - Telemetry (Mobile Cardiac) (CPT-34553) Roberto Carlos Ramsey MD Electrophysiology:[facility] PFTs O rders: F VC - 66648 (76341) F RC - 98139 (98710) D LCO - 95562 (42472) 6 minute walk test (CPT-00619) C OMPREHENSIVE METABOLIC PANEL, W/EGFR (15860) CBC (INCLUDES DIFF/PLT) (6399) L IPID PANEL (7600) H EMOGLOBIN A1c (496) B TYPE NATRIURETIC PEPTIDE (BNP) (05348) P ROBNP, N TERMINAL (63199) M onitor - Telemetry (Mobile Cardiac) (CPT-00963) Roberto Carlos Ramsey MD Electrophysiology: O rders: C omplete Echo (CPT-94445) 6 minute walk test (CPT-66194) C OMPREHENSIVE METABOLIC PANEL, W/EGFR (54191) C BC (INCLUDES DIFF/PLT) (6399) L IPID PANEL (7600) H EMOGLOBIN A1c (496) B TYPE NATRIURETIC PEPTIDE (BNP) (66468) P ROBNP, N TERMINAL (82507) M onitor - Telemetry (Mobile Cardiac) (CPT-95170) 9 9213 LTD 20-29min (CPT-37636) Roberto Carlos Ramsey MD Electrophysiology: O rders: C omplete Echo (CPT-85930) F VC - 11146 (03007) F RC - 79475 (28777) D LCO - 71078 (78103) 6 minute walk test (CPT-11078) C OMPREHENSIVE METABOLIC PANEL, W/EGFR (98448) C BC (INCLUDES DIFF/PLT) (6399) L IPID PANEL (7600) H EMOGLOBIN A1c (496) B TYPE NATRIURETIC PEPTIDE (BNP) (10093) P ROBNP, N TERMINAL (95329) M onitor - Telemetry (Mobile Cardiac) (CPT-87625) 9 9213 LTD 20-29min (CPT-36813) Roberto Carlos Ramsey MD Electrophysiology:wi check echo, PFTs, 6 minute walk test, labs. H er updated medication list for this problem includes: Hydrochlorothiazide 25 Mg Tablet (Hydrochlorothiazide) ..... 1 tablet by mouth once a day Orders: C omplete Echo (CPT-14587) 6 minute walk test (CPT-63522) C OMPREHENSIVE METABOLIC PANEL, W/EGFR (12413) C BC (INCLUDES DIFF/PLT) (6399) L IPID PANEL (7600) H EMOGLOBIN A1c (496) B TYPE NATRIURETIC PEPTIDE (BNP) (42579) P ROBNP, N TERMINAL (96786) M onitor - Telemetry (Mobile Cardiac) (CPT-63980) Roberto Carlos Ramsey MD Electrophysiology:wi ll check echo, PFTs, 6 minute walk test, labs. Staci Diaz HIV NURSE Electrophysiology:check PFTs She rry Joe HIV NURSE Electrophysiology Staci Lopezyen weber HIV NURSE Electrophysiology:Th e patient is using CPAP on a regular basis. The patient has been benefiting from therapy and should continue use. Staci Diaz HIV NURSE Electrophysiology:mo d AR per last echo. Will recheck echo Staci Diaz HIV NURSE Electrophysiology:hamm s been in contact with [facility] to have weight loss surgery. Staci Diaz [facility] Electrophysiology Ho spital Follow up 14 : s /p DC PPM explantation 08/14/16 with extensive pocket revision due to bacteremia. Donnelltheresa Al Electrophysiology Ho spital Follow up 14 : O rders: A rosemary Duplex Ultrasound (CPT-89830) The following medications were removed from the medication list: Aspirin 81 Mg Oral Tablet (Aspirin) ..... One tab. daily Penny Melendez Electrophysiology Ho spital Follow up 14 :s/p DC PPM explantation 08/14/16 with extensive pocket revision due to bacteremia. Orders: M onitor - Telemetry (Mobile Cardiac) (CPT-99499) Donnelltheresa Al Electrophysiology Ho spital Follow up 14 : O rders: E KG (CPT-78941) C omplete Echo (CPT-14770) Echo 02/2020 CONCLUSIONS: 1 . There is [...] O rders: C OMPREHENSIVE METABOLIC PANEL, W/EGFR (12125) C BC (INCLUDES DIFF/PLT) (6399) L IPID PANEL (7600) T HYROID PANEL (7020) F VC - 28495 (21684) F RC - 80916 (58691) D LCO - 19354 (53565) C omplete Echo (CPT-42524) S tress Regadenoson (CPT-66698) Juan Greenberg Electrophysiology: P rior BP: 122/60 [...] daily Orders: C OMPREHENSIVE METABOLIC PANEL, W/EGFR (48587) C BC (INCLUDES DIFF/PLT) (6399) L IPID PANEL (7600) T HYROID PANEL (7020) F VC - 00053 (17692) FRC - 94962 (09922) D [facility] - 53031 (63001) C omplete Echo (CPT-13098) S tress Regadenoson (CPT-57929) Juan Greenberg Electrophysiology fo llow up: E [...] Tyrell Berumen Electrophysiology - :Orders: E KG (CPT-51572) M obile Cardiac Tele (CPT-47525) S chedule Followup (*) 9 3959 MOD Complex (CPT-17139) Tyrell Berumen Electrophysiology - :Orders: S chedule Followup (*) 9 9214 MOD Complex (CPT-02948) Tyrell Berumen Electrophysiology - :BP today: 142/60 [...] cessation strongly advised. Orders: F VC - 86186 (36609) F RC - 83111 (63391) D LCO - 16109 (53709) S chedule Followup (*) 9 9214 MOD Complex (CPT-60234) Her updated medication list for this problem [...] : O rders: 9 9214 MOD Complex (CPT-87399) S TR - Adenosine (CPT-86633) Roberto Carlos Ramsey MD Electrophysiology Fo llow up : O rders: A rosemary Duplex Ultrasound (AAA) (CPT-89451) Roberto Carlos Ramsey MD Cardiology FOLLOW UP [...] Cardiology Follow up faxed 12/16/16:Orders: S NOMED-CT: [id number] Current Medications Documented (SCT-[id number]) E KG (CPT-72165) M obile Cardiac Tele (CPT-53615) Continues to have some fatigue. Armani Valencia Cardiology Follow up faxed 12/16/16:On 50mcg Levothyroxine daily. Armani Valencia Cardiology Follow up faxed 12/16/16:Orders: S NOMED-CT: [id number] Current Medications Documented (SCT-[id number]) E KG (CPT-03273) M obile Cardiac Tele (CPT-61324) Armani Valencia EP Follow up faxed 10/19/16:Comp [...] MD Cardiology:Orders: A rterial Duplex Bi-Lower EX (CPT-27419) V enous Doppler Bilateral LE - Standing (CPT-24332) Faisal Carlos MD Cardiology:Orders: A rterial Duplex Bi-Lower EX (CPT-95949) V enous Doppler Bilateral LE - Standing (CPT-58702) Faisal Carlos MD Cardiology:There was mild caroti [...] eral Aorta Duplex Ultraso und DLCO - 84949 FRC - 11386 FVC - 51728 Monitor - Telemetry (Mobile Cardiac) Monitor - Telemetry (Mobile Cardiac) PROTHROMBIN TIME WIT H INR LIPID PANEL CBC (INCLUDES DIFF/P LT) BASIC METABOLIC PANE L W/EGFR Stress Regadenoson Complete Echo RPM (remote patient monitoring) Monitor - Telemetry (Mobile Cardiac) 6 minute walk test DLCO - 54701 FRC - 30885 FVC - 53100 Carotid Duplex Bilat eral Monitor - Telemetry (Mobile Cardiac) PROBNP, N TERMINAL B TYPE NATRIURETIC P EPTIDE (BNP) HEMOGLOBIN A1c LIPID PANEL CBC (INCLUDES DIFF/P LT) COMPREHENSIVE METABO LIC PANEL, W/EGFR 6 minute walk test DLCO - 55612 FRC - 20217 FVC - 08684 Complete Echo Aorta Duplex Ultraso und Monitor - Telemetry (Mobile Cardiac) Complete Echo Stress Regadenoson Complete Echo DLCO - 79974 FRC - 33044 FVC - 23708 THYROID PANEL LIPID PANEL CBC (INCLUDES DIFF/P LT) COMPREHENSIVE METABO LIC PANEL, W/EGFR MAGNESIUM DLCO - 89347 FRC - 68974 FVC - 86208 COMPREHENSIVE METABO LIC PANEL, W/EGFR Mobile Cardiac Tele Complete Echo Carotid Duplex Bilat eral DLCO - 38909 FRC - 45549 FVC - 50431 Aorta Duplex Ultraso und (AAA) STR - Adenosine Mobile Cardiac Tele Complete Echo Carotid Duplex Bilat eral Other Test DLCO - 98016 FRC - 71390 FVC - 50265 Mobile Cardiac Tele C-REACTIVE PROTEIN Other SED [...] completed FVC / MVV with bronchodilator - 63090 Roberto Carlos Ramsey MD completed BLOOD COUNT HEMOGLOBIN Roberto Carlos jacob MD completed FRC - [address] MD completed SpO2 w/o 6min walk/titration Roberto Carlos Ramsey MD completed DLCO - [address] MD completed EKG Roberto [...] completed FVC / MVV with bronchodilator - 42162 Roberto Carlos Ramsey MD completed FRC - [address] MD completed SpO2 w/o 6min walk/titration Roberto Carlos Ramsey MD completed SVC - [address] MD completed DLCO - [address] MD completed 6 minute walk test Roberto Carlos garcia MD completed EKG Roberto Carlos street MD completed EKG Roberto Carlos street MD completed 6 minute walk test Roberto Carlos garcia MD completed Spirometry Roberto Carlos street MD completed FVC / MVV with bronchodilator - 82796 Roberto Carlos Ramsey MD completed FRC - [address] MD completed SpO2 w/o 6min walk/titration Roberto Carlos Ramsey MD completed SVC - [address] MD completed DLCO - [address] MD completed EKG Roberto [...] street MD completed FVC / MVV - 73214 Roberto Carlos arriaga MD completed BLOOD COUNT HEMOGLOBIN Roberto Carlos jacob MD completed FRC - [address] MD completed SpO2 w/o 6min walk/titration Roberto Carlos Ramsey MD completed DLCO - [address] MD completed EKG Roberto Carlos street MD completed Schedule Followup Roberto Carlos arriaga MD in 1 yr completed EKG Roberto Carlos street MD completed FVC / MVV with bronchodilator - 28191 Roberto Carlos Ramsey MD completed BLOOD COUNT HEMOGLOBIN Roberto Carlos jacob MD completed FRC - [address] MD completed SpO2 w/o 6min walk/titration Roberto Carlos Ramsey MD completed DLCO - [address] MD completed Schedule Followup Roberto Carlos arriaga MD in 6 mo completed EKG Roberto Carlos street MD completed FVC / MVV with bronchodilator - 43218 Roberto Carlos Ramsey MD completed BLOOD COUNT HEMOGLOBIN Roberto Carlos jacob MD completed FRC - [address] MD completed SpO2 w/o 6min walk/titration Roberto Carlos Ramsey MD completed DLCO - [address] MD completed EKG Roberto Carlos street MD completed SNOMED-CT: [id number] Current Medications Documented Roberto Carlos Ramsey MD completed Stress EKG Julien Ruth MD complete d Regadenoson, 4 units Roberto Carlos wall MD completed Cardiolite, 2 units Roberto Carlos pierce MD completed SPECT Images Dian Dennis MD complet ed EKG Roberto Carlos street MD completed SNOMED-CT: 134298816728209 Current Medications Documented Roberto Carlos Ramsey MD completed Mobile Cardiac Telem etry - Tech Roberto Carlos Ramsey MD completed Mobile Cardiac Telem etry - Prof Roberto Carlos Ramsey MD completed Schedule Followup Roberto Carlos arriaga MD In 6 months. completed EKG Roberto Carlos street MD completed SNOMED-CT: 834489861475453 Current Medications Documented Roberto Carlos Ramsey MD completed FVC / MVV with bronchodilator - 31427 Roberto Carlos Ramsey MD completed FRC - [address] MD completed SpO2 - [address] MD completed DLCO - [address] MD completed Mobile Cardiac Telem etry - Tech Kiarra Smith completed Mobile Cardiac Telem etry - Prof Kiarra Smith completed EKG Roberto Carlos street MD completed SNOMED-CT: 885228687381950 Current Medications Documented Roberto Carlos Ramsey MD completed VIOLETA Morales Saulius Suzanna arriaga MD completed EKG ulius Pa street MD completed SNOMED-CT: 925765656545818 Current Medications Documented ulius Braulio KING completed EKG ulius Pa street MD completed SNOMED-CT: 331193628815516 Current Medications Documented ulius Braulio KING completed EKG ulius Pa street MD completed SNOMED-CT: 904461221457959 Current Medications Documented ulius Braulio KING completed SNOMED-CT: 448887660571827 Current Medications Documented Faisal Carlos MD completed SNOMED-CT: 550064908299694 Current Medications Documented Faisal Carlos MD completed SNOMED-CT: 372743752 Smoking Cessation Counseling Faisal Carlos MD completed Stress EKG Faisal Carlos MD completed Regadenoson, 4 units Faisal Carlos MD completed Cardiolite, 2 units Faisal Carlos MD c ompleted SPECT Images Lois Giraldo MD compl eted Mobile Cardiac Telem etry - Tech Feli Hughes completed Mobile Cardiac Telem etry - Prof Feli Hughse completed SNOMED-CT: 765347250 Smoking Cessation Counseling Faisal Carlos MD completed EKG Faisal Carlos MD completed SNOMED-CT: 897357306680924 Current Medications Documented Faisal Carlos MD completed
--- OUTSIDE RECORDS SUMMARY | 2025-02-13 14:39 | XMS_ITS ---
Author Organization [facility]usmane Address [address] [facility] [address] [place] [address] Care Team Providers Care Cancer Registrar Name Role Phone zzzzMigration, zzzzProvider Unavailable Unav ailable REASON FOR VISIT EMR-Clive Encounters Encounter Location Date Provider Diagnosis [facility] [address] [facility] [address] [place] [address] 08/28/2023 zzzzProvider zzzzMigration Plan Of Treatment No Information Progress Notes * Jacy MILLS LDOB: [birth year] (79 yo F)Acc No.[id number]:08/28/2023 Patient: Jacy JAMES Kan :1945 A ge:77 Y S ex:Female Address:[address] [place], [address] Subjective: * Chief Complaints: * E MR-Clive * Medical History: * Surgical History: * Hospitalization/Major Diagno stic Procedure: * Medications: Objective: * Vitals: * Physical Examination: Assessment: Plan: * Treatment: * Procedure Codes: * true * Date: Generated for Printi ng/Faxing/eTransmitting on: 0 02/13/2025 02:39 PM CDT
--- OUTSIDE RECORDS SUMMARY | 2025-02-13 14:39 | XMS_ITS | Clinical Summary ---
Author Organization [facility] Address [address], [place] [address] Phone Care Team Providers Care Sales Porter Name Role Phone Jn Velásquez MD Primary Care Provider [phone] Allergies Active Allergy Reactions Criticality Noted Date Comments Lisinopril High 12/24/2021 Medications ALPRAZolam (XANAX) 0.5 MG tablet 1 tab/cap tid PRN 4 Active FLUoxetine (PROZAC) 20 MG capsule 3 tabs/caps qday 4 Active HYDROcodone-evaristo taminophen (LORCET PLUS) 10-325 MG per tablet TAKE ONE TABLET 3 TIMES DAILY NEEDED FOR PAIN 0 9 Active rOPINIRole (REQUIP) 0.5 MG tablet Take 0.5 mg by mouth every night 0 9 Active VENTOLIN HFA 108 (90 Base) MCG/ACT inhaler INHALE 2 PUFFS BY MOUTH 4 TIMES DAILY NEEDED FOR SHORTNESS OF BREATH FOR WHEEZING 0 Active phentermine 37.5 MG capsule TAKE 1 CAPSULE BY MOUTH ONCE DAILY BEFORE BREAKFAST 0 Active gabapentin (NEURONTIN) 300 MG capsule Take 1 capsule by mouth every 8 hours Active ARIPiprazole (ABILIFY) 10 MG tablet TAKE 1 TABLET BY MOUTH ONCE DAILY AT BEDTIME FOR 30 DAYS 0 Active busPIRone (BUSPAR) 10 MG tablet TAKE 1 TABLET BY MOUTH THREE TIMES DAILY WITH MEALS FOR 90 DAYS 0 Active ergocalciferol (VITAMIN D2) 1.25 MG (11461 UT) capsule Take 50,000 Units by mouth 1 (one) time per week 0 Active hydrALAZINE (APRESOLINE) 50 MG tablet Take 50 mg by mouth 3 (three) times a day with meals 0 Active rosuvastatin (CRESTOR) 40 MG tablet Take 40 mg by mouth 1 (one) time each day 0 Active tretinoin (RETIN-A) 0.025 % cream APPLY A PEA SIZED AMOUNT TO AFFECTED AREA AT BED TIME. 0 Active Percocet 10-325 MG per tablet 1 Active furosemide (LASIX) 20 MG tablet 1 Active oxybutynin XL (DITROPAN-XL) 10 MG 24 hr tablet Take 10 mg by mouth 1 (one) time each day 1 Active budesonide EC (ENTOCORT EC) 3 MG 24 hr capsule 1 Active FeroSul 325 (65 Fe) MG tablet Take 1 tablet by mouth 2 (two) times a day 1 Active traZODone (DESYREL) 100 MG tablet Take 100 mg by mouth every night 1 Active benzonatate (TESSALON) 100 MG capsule Take 100 mg by mouth 2 Active cholecalciferol (VITAMIN D-3) 50 MCG (2000 UT) capsule Take 4,000 Units by mouth 1 (one) time each day in the morning 2 Active hydrOXYzine (ATARAX) 10 MG tablet 2 Active loteprednol (LOTEMAX) 0.5 % ophthalmic suspension SHAKE LIQUID AND INSTILL 1 DROP IN BOTH EYES THREE TIMES DAILY 2 Active venlafaxine XR (EFFEXOR-XR) 75 MG 24 hr capsule TAKE 2 CAPSULES BY MOUTH EVERY DAY IN THE MORNING 2 Active torsemide (DEMADEX) 10 MG tablet Take 10 mg by mouth 2 times daily 2 Active allopurinol (ZYLOPRIM) 100 MG tablet 2 Active amLODIPine (NORVASC) 10 MG tablet 2 Active atenolol (TENORMIN) 25 MG tablet 2 Active atorvastatin (LIPITOR) 40 MG tablet 2 Active Blood Glucose Monitoring Suppl (ONE TOUCH ULTRA 2) w/Device kit 2 Active chlorthalidone (HYGROTON) 25 MG tablet 2 Active cyanocobalamin (VITAMIN B-12) 1000 MCG/ML injection ADMINISTER 1 ML UNDER THE SKIN EVERY WEEK IN THE MORNING 2 Active esomeprazole (NexIUM) [address] capsule 2 Active Breo Ellipta 100-25 MCG/INH inhaler INHALE 1 PUFF BY MOUTH TWICE DAILY DIRECTED NEEDED 2 Active OneTouch Ultra test strip USE DIRECTED TO CHECK GLUCOSE ONCE DAILY 2 Active hydrALAZINE (APRESOLINE) 25 MG tablet 2 Active Synthroid 75 MCG tablet TAKE 1 TABLET BY MOUTH EVERY DAY IN THE MORNING 2 Active Korlym 300 MG tablet 2 Active Klor-Con 20 MEQ packet MIX CONTENTS OF 1 PACKET WITH LIQUID AND DRINK BY MOUTH DAILY 2 Active sertraline (ZOLOFT) 100 MG tablet 2 Active spironolactone (ALDACTONE) 25 MG tablet 2 Active Trintellix 20 MG tablet 2 Active Active Problems Problem Noted Date Diagnosed [...] 10/13/2014 Obstructive sleep apnea syndrome 05/23/2014 Immunizations Immunization Administration Dates Next Due Pneumococcal Conjugate 13-Valent [...] at Not on file Legal Sex Female 8:46 AM [facility] Gender Identity Not on file Sexual Orientation [...] PPSV23 or PCV20) 11/26/2016 11/26/2015 Influenza Vaccine (Season Ended) 2025 Insurance MEDICAID - [place] [employer] MEDICARE Care Teams Sales Porter Relationship Specialty Start Date End Date Jn Velásquez MD [address] [place] [address] PCP - General Internal Medicine 06/18/20
--- OUTSIDE RECORDS SUMMARY | 2025-02-13 14:39 | XMS_ITS | Clinical Summary ---
Author Organization [facility] on Address [address] [place] [address] [place] [address] Phone Care Team Providers Care Telesales Team Leader Name Role Phone Unavailable Primary Care Provider Unavailabl e Encounters Date Type Department Care Team Description 12/25/2024 External Device Data STL ABSTRACTION Provider, Abstract 12/12/2024 [facility] [address] [place] [address] Jessica Mccarthy RN BARIATRIC (Call to patient/Marissa Hurst/) 12/11/2024 External Device Data [facility] ABSTRACTION Provider, Abstract 12/11/2024 External Device Data [facility] ABSTRACTION Provider, Abstract 12/11/2024 External Device Data ST[facility] ABSTRACTION Provider, Abstract 12/11/2024 [facility] [place] [address] [address] Mary Crocker, ALEX call to insurance carrier (Call to insurance carrier) 12/10/2024 [facility] [address] [place] [address] Jessica Mccarthy RN BARIATRIC (Call to patient-insurance clarification/Marissa Hurst/) 12/07/2024 [facility] [address] [place] [address] Jessica Mccarthy RN BARIATRIC (2024 Insurance Review/Marissa [...] 2022 INFLUENZA VACCINE (#1) 2024 Medicare [place]vantage ([place]) Prev entative Visit/Annual Wellness Visit 11/07/2024 Insurance [facility] [id number] [place] [address]
--- OUTSIDE RECORDS SUMMARY | 2025-02-13 14:39 | XMS_ITS ---
Author Organization [facility] ousmane Address [address] [facility] [address] [place] [address] Care Team Providers Care Hand Mexican Food Maker Name Role Phone zzzzMigration, zzzzProvider Unavailable Unav ailable REASON FOR VISIT EMR-Clive Encounters Encounter Location Date Provider Diagnosis [facility] [address] [facility] [address] [place] [address] 08/27/2023 zzzzProvider zzzzMigration Plan Of Treatment No Information Progress Notes * Jacy MILLS LDOB: [birth year] (79 yo F)Acc No.[id number]:08/27/2023 Patient: Jacy JAMES Kan :1945 A ge:77 Y S ex:Female Address:[address] [place], [address] Subjective: * Chief Complaints: * E MR-Clive * Medical History: * Surgical History: * Hospitalization/Major Diagno stic Procedure: * Medications: Objective: * Vitals: * Physical Examination: Assessment: Plan: * Treatment: * Procedure Codes: * true * Date: Generated for Printi ng/Faxing/eTransmitting on: 0 02/13/2025 02:38 PM CDT
--- OUTSIDE RECORDS SUMMARY | 2025-02-13 14:40 | XMS_ITS | Clinical Summary ---
Author Organization [facility] Address [facility] [place] [address] Care Team Providers Care Body Shop Manager Name Role Phone Unavailable Primary Care Provider [...] 2022 COVID-19 Vaccine (2023-2 5 season) 2024 Meningococcal B Vaccine Aged Out No l onger eligible based on patient's age to complete this topic Meningococcal Vaccine Aged Out No trae zeina eligible based on patient's age to complete this topic RSV Immunizations Under 20 Months Aged Out No longer eligible based on patient's age to complete this topic
--- OUTSIDE RECORDS SUMMARY | 2025-02-13 14:40 | XMS_ITS | Data Portability ---
Author Organization [facility] [employer], Main Office Address [address] [place] [address] Assessment No assessment recorded. Plan of Treatment Reminders Order Date Submit Date Provider Last Modified By Organization Details Last Modified Time Details Appointments None recorded. Lab lipid panel, serum 2022 023 [facility] (Lab), [address] [place], [address], 3 13:44:14 glycohemogl obin, total, blood 2022 023 [facility] (Lab), [address] [place], [address], 3 14:14:23 CMP, serum or plasma 2022 023 [facility] (Lab), [address] [place], [address], 3 14:34:25 TSH, serum or plasma 2022 023 [facility] (Lab), [address] [place], [address], 3 14:18:28 T4, free, serum 2022 023 [facility] (Lab), [address] [place], [address], 3 14:08:54 T3, free, serum or plasma 2022 023 [facility] (Lab), [address] [place], [address], 3 14:08:59 Referral endocrinolo gy referral - bilateral adrenal hyperplasia with abnormal DST, unable to tolerate korlym 2022 023 [email or web address] [facility], [address] [facility], [place], [address], 3 12:50:55 Procedures None recorded. Surgeries None recorded. Imaging None recorded. Medication Orders Ozempic 2 mg/dose (8 mg/3 mL) subcutaneou s pen injector 2022 [email or web address] [id number], [address] [place], [place], [id number], 4 13:30:28 Farxiga 5 mg tablet [address] [id number], [address] [place], [place], [id number], 4 13:29:03 Unithroid 75 mcg tablet [address] [facility][id number], [address] [place], [place], [id number], 4 13:31:10 Wegovy 0.5 mg/0.5 mL subcutaneou s pen injector 2022 023 [email or web address] [facility] #[id number], [address] [place], [place], [id number], 3 12:27:44 Korlym 300 mg tablet 2022 023 [email or web address] [facility], [address] [place], [address], 3 12:29:23 Unithroid 100 mcg tablet 2022 023 [id number], [address] [place], [place], [id number], 12:28:35 Patient TargetsNo targets recorded. Patient InstructionsNo instructions recorded. Reason for Referral Endocrinology Referral for H ypercortisolism bilateral adrenal hyperplasia with abnormal DST, unable to tolerate korlym Referring Physician: Stephanie Morrissey, Endocrinology, Encounter Date: 07/14/2023 Results Created Date Observation Date Name Description Value Unit Range Abnormal Flag Note LastModifiedBy Organization Detail LastModifiedTime 12/14/1912/14/2022 T3 FREE free T3 2.6 pg/mL 2.77-5 .27 low Not Available [facility] (Lab) [address] [place], [address], 12/14/2022 15:23:41 12/14/19 23 12/14/2022 T4 FREE free T4 1.40 NG/dL 0.78-2 .19 Not Available [facility] (Lab) [address] [place], [address], 12/14/2022 15:23:38 12/14/19 23 12/14/2022 TSH thyroid-stim ulating hormone 0.598 uIU/m L 0.465- 4.680 Not Available [facility] (Lab) [address] [place], [address], 12/14/2022 15:12:15 12/14/1912/14/2022 HEMOG LOBIN A1C HA1C 5.6 % 4.0-6. 0 Diabe brianna Scree gisele Crite pamela: <5.7% Consi stent with absen ce of diabe brianna 5.7-6 .4% Consi stent with incre ased risk for diabe brianna (pred iabet es) >OR=6 .5% Consi stent with diabe brianna REFER ENCE: Diabe brianna Care 2016, 39(Anderson ppl.1 ):s13 -s22 Not Available [facility] (Lab) [address] [place], [address], 12/14/2022 14:54:35 12/14/19 23 12/14/2022 COMPR EHENS KECIA METAB OLIC PANEL A/G ratio 1.3 ratio 1.0-2. 0 Not Available [facility] (Lab) [address] [place], [address], 12/14/2022 14:24:11 12/14/19 23 12/14/2022 COMPR EHENS KECIA METAB OLIC PANEL carbon dioxide 25 mmol/ L 22-30 Not Available [facility] (Lab) [address] [place], [address], 12/14/2022 14:24:11 12/14/19 23 12/14/2022 COMPR EHENS KECIA METAB OLIC PANEL sodium 140 mmol/ L 137-14 5 Not Available [facility] (Lab) [address] [place], [address], 12/14/2022 14:24:11 12/14/19 23 12/14/2022 COMPR EHENS KECIA METAB OLIC PANEL potassium 4.0 mmol/ L 3.5-5. 1 Not Available [facility] (Lab) [address] [place], [address], 12/14/2022 14:24:11 12/14/19 23 12/14/2022 COMPR EHENS KECIA METAB OLIC PANEL chloride 103 mmol/ L 98-107 Not Available [facility] (Lab) [address] [place], [address], 12/14/2022 14:24:11 12/14/19 23 12/14/2022 COMPR EHENS KECIA METAB OLIC PANEL anion gap 16.0 mmol/ L 14-22 Not Available [facility] (Lab) [address] [place], [address], 12/14/2022 14:24:11 12/14/19 23 12/14/2022 COMPR EHENS KECIA METAB OLIC PANEL glucose 109 mg/dL 70-99 high Not Available [facility] (Lab) [address] [place], [address], 12/14/2022 14:24:11 12/14/19 23 12/14/2022 COMPR EHENS KECIA METAB OLIC PANEL BUN 17 mg/dL 8-19 Not Available [facility] (Lab) [address] [place], [address], 12/14/2022 14:24:11 12/14/19 23 12/14/2022 COMPR EHENS KECIA METAB OLIC PANEL creatinine 1.74 mg/dL 0.66-1 .25 high Not Available [facility] (Lab) [address] [place], [address], 12/14/2022 14:24:11 12/14/19 23 12/14/2022 COMPR EHENS KECIA METAB OLIC PANEL GFR 29 Refer ence Range : [place] ge GFR Healt hy Adult : >60 [...] or ethni c subgr oups, such as Hisne nics. Outsi de the valid ated casper [...] calcu lator is avail able on the [facility] websi te: [email or web address] :[email or web address] ofess ional s/kdo qi/gf r_cal culat or Not Available [facility] (Lab) [address] [place], [address], 12/14/2022 14:24:11 12/14/19 23 12/14/2022 COMPR EHENS KECIA METAB OLIC PANEL alkaline phosphatase 57 U/L 38-126 Not Available [facility] (Lab) [address] [place], [address], 12/14/2022 14:24:11 12/14/19 23 12/14/2022 COMPR EHENS KECIA METAB OLIC PANEL alanine aminotransfe rase 17 U/L 0-35 Not Available [facility] (Lab) [address] [place], [address], 12/14/2022 14:24:11 12/14/19 23 12/14/2022 COMPR EHENS KECIA METAB OLIC PANEL aspartate aminotransfe rase 26 U/L 15-37 Not Available [facility] (Lab) [address] [place], [address], 12/14/2022 14:24:11 12/14/19 23 12/14/2022 COMPR EHENS KECIA METAB OLIC PANEL bilirubin, total 0.60 mg/dL 0.20-1 .30 Not Available [facility] (Lab) [address] [place], [address], 12/14/2022 14:24:11 12/14/19 23 12/14/2022 COMPR EHENS KECIA METAB OLIC PANEL calcium 9.0 mg/dL 8.4-10 .2 Not Available [facility] (Lab) [address] [place], [address], 12/14/2022 14:24:11 12/14/19 23 12/14/2022 COMPR EHENS KECIA METAB OLIC PANEL total protein 7.7 g/dL 6.3-8. 2 Not Available [facility] (Lab) [address] [place], [address], 12/14/2022 14:24:11 12/14/19 23 12/14/2022 COMPR EHENS KECIA METAB OLIC PANEL albumin 4.3 g/dL 3.0-4. 4 Not Available [facility] (Lab) [address] [place], [address], 12/14/2022 14:24:11 12/14/19 23 12/14/2022 COMPR EHENS KECIA METAB OLIC PANEL globulin 3.4 g/dL 2.6-4. 2 Not Available [facility] (Lab) [address] [place], [address], 12/14/2022 14:24:11 12/14/19 23 12/14/2022 MICRO ALBUM N RNDM W/CRE AT RATIO ur creat 122.62 mg/dL REFER ENCE RANGE NOT ESTAB LISHE D FOR RANDO M URINE CREAT ININE Not Available [facility] (Lab) [address] [place], [address], 12/14/2022 13:55:12 12/14/19 23 12/14/2022 MICRO ALBUM N RNDM W/CRE AT RATIO microalbumin , urine 217.1 mg/L 0.0-16 .6 high Not Available [facility] (Lab) [address] [place], [address], 12/14/2022 13:55:12 12/14/19 23 12/14/2022 MICRO ALBUM [...] S94-S 96, NOVUA RY 2002 Not Available [facility] (Lab) [address] [place], [address], 12/14/2022 13:55:12 03/07/20 23 03/07/2023 MICRO ALBUM N RNDM W/CRE AT RATIO ur creat 133.14 mg/dL REFER ENCE RANGE NOT ESTAB LISHE D FOR RANDO M URINE CREAT ININE Not Available [facility] (Lab) [address] [place], [address], 03/07/2023 14:32:57 03/07/20 23 03/07/2023 MICRO ALBUM N RNDM W/CRE AT RATIO microalbumin , urine 162.5 mg/L 0.0-16 .6 high Not Available [facility] (Lab) [address] [place], [address], 03/07/2023 14:32:57 03/07/20 23 03/07/2023 MICRO ALBUM [...] VOL. 26: S94-S 96, 2002 Not Available [facility] (Lab) [address] [place], [address], 03/07/2023 14:32:57 03/07/20 23 03/07/2023 COMPR EHENS KECIA METAB OLIC PANEL sodium 138 mmol/ L 137-14 5 Not Available [facility] (Lab) [address] [place], [address], 03/07/2023 14:33:43 03/07/20 23 03/07/2023 COMPR EHENS KECIA METAB OLIC PANEL potassium 4.9 mmol/ L 3.5-5. 1 Not Available [facility] (Lab) [address] [place], [address], 03/07/2023 14:33:43 03/07/20 23 03/07/2023 COMPR EHENS KECIA METAB OLIC PANEL chloride 105 mmol/ L 98-107 Not Available [facility] (Lab) [address] [place], [address], 03/07/2023 14:33:43 03/07/20 23 03/07/2023 COMPR EHENS KECIA METAB OLIC PANEL carbon dioxide 26 mmol/ L 22-30 Not Available [facility] (Lab) [address] [place], [address], 03/07/2023 14:33:43 03/07/20 23 03/07/2023 COMPR EHENS KECIA METAB OLIC PANEL anion gap 11.9 mmol/ L 14-22 low Not Available [facility] (Lab) [address] [place], [address], 03/07/2023 14:33:43 03/07/20 23 03/07/2023 COMPR EHENS KECIA METAB OLIC PANEL glucose 119 mg/dL 70-99 high Not Available [facility] (Lab) [address] [place], [address], 03/07/2023 14:33:43 03/07/20 23 03/07/2023 COMPR EHENS KECIA METAB OLIC PANEL BUN 25 mg/dL 8-19 high Not Available [facility] (Lab) [address] [place], [address], 03/07/2023 14:33:43 03/07/20 23 03/07/2023 COMPR EHENS KECIA METAB OLIC PANEL creatinine 1.89 mg/dL 0.66-1 .25 high Not Available [facility] (Lab) [address] [place], [address], 03/07/2023 14:33:43 03/07/20 23 03/07/2023 COMPR EHENS KECIA METAB OLIC PANEL GFR 26 Refer ence Range : [place] ge GFR Healt hy Adult : >60 [...] or ethni c subgr oups, such as [facility] nics. Outsi de the valid ated [...] calcu lator is avail able on the [facility] websi te: [email or web address] :[email or web address] [email or web address] [email or web address] rg/pr ofess ional s/kdo qi/gf r_cal culat or Not Available [facility] (Lab) [address] [place], [address], 03/07/2023 14:33:43 03/07/20 23 03/07/2023 COMPR EHENS KECIA METAB OLIC PANEL alkaline phosphatase 57 U/L 38-126 Not Available [facility] (Lab) [address] [place], [address], 03/07/2023 14:33:43 03/07/20 23 03/07/2023 COMPR EHENS KECIA METAB OLIC PANEL alanine aminotransfe rase 17 U/L 0-35 Not Available [facility] (Lab) [address] [place], [address], 03/07/2023 14:33:43 03/07/20 23 03/07/2023 COMPR EHENS KECIA METAB OLIC PANEL aspartate aminotransfe rase 29 U/L 15-37 Not Available [facility] (Lab) [address] [place], [address], 03/07/2023 14:33:43 03/07/20 23 03/07/2023 COMPR EHENS KECIA METAB OLIC PANEL bilirubin, total 0.70 mg/dL 0.20-1 .30 Not Available [facility] (Lab) [address] [place], [address], 03/07/2023 14:33:43 03/07/20 23 03/07/2023 COMPR EHENS KECIA METAB OLIC PANEL calcium 9.3 mg/dL 8.4-10 .2 Not Available [facility] (Lab) [address] [place], [address], 03/07/2023 14:33:43 03/07/20 23 03/07/2023 COMPR EHENS KECIA METAB OLIC PANEL total protein 7.5 g/dL 6.3-8. 2 Not Available [facility] (Lab) [address] [place], [address], 03/07/2023 14:33:43 03/07/20 23 03/07/2023 COMPR EHENS KECIA METAB OLIC PANEL albumin 4.2 g/dL 3.0-4. 4 Not Available [facility] (Lab) [address] [place], [address], 03/07/2023 14:33:43 03/07/20 23 03/07/2023 COMPR EHENS KECIA METAB OLIC PANEL globulin 3.3 g/dL 2.6-4. 2 Not Available [facility] (Lab) [address] [place], [address], 03/07/2023 14:33:43 03/07/20 23 03/07/2023 COMPR EHENS KECIA METAB OLIC PANEL A/G ratio 1.3 ratio 1.0-2. 0 Not Available [facility] (Lab) [address] [place], [address], 03/07/2023 14:33:43 03/07/20 23 03/07/2023 PHOSP HORUS phosphorus 4.2 mg/dL 2.5-4. 5 Not Available [facility] (Lab) [address] [place], [address], 03/07/2023 14:33:47 03/07/20 23 03/07/2023 T4 FREE free T4 1.09 NG/dL 0.78-2 .19 Not Available [facility] (Lab) [address] [place], [address], 03/07/2023 14:39:37 03/07/2003/07/2023 T3 FREE free T3 2.4 pg/mL 2.77-5 .27 low Not Available [facility] (Lab) [address] [place], [address], 03/07/2023 14:39:46 03/07/20 23 03/07/2023 TSH thyroid-stim ulating hormone 11.000 uIU/m L 0.465- 4.680 high Not Available [facility] (Lab) [address] [place], [address], 03/07/2023 14:52:02 03/07/20 23 03/07/2023 HEMOG LOBIN A1C HA1C 6.3 % 4.0-6. 0 high Diabe brianna Scree gisele Crite pamela: <5.7% Consi stent with absen ce of diabe brianna 5.7-6 .4% Consi stent with incre ased risk for diabe brianna (pred iabet es) >OR=6 .5% Consi stent with diabe brianna REFER ENCE: Diabe brianna Care 2016, 39( ppl.1 ):s13 -s22 Not Available [facility] (Lab) [address] [place], [address], 03/07/2023 15:53:45 05/13/20 23 05/13/2023 COMPR EHENS KECIA METAB OLIC PANEL sodium 141 mmol/ L 137-14 5 Not Available [facility] (Lab) [address] [place], [address], 05/13/2023 14:34:25 05/13/20 23 05/13/2023 COMPR EHENS KECIA METAB OLIC PANEL potassium 4.4 mmol/ L 3.5-5. 1 Not Available [facility] (Lab) [address] [place], [address], 05/13/2023 14:34:25 05/13/20 23 05/13/2023 COMPR EHENS KECIA METAB OLIC PANEL chloride 101 mmol/ L 98-107 Not Available [facility] (Lab) [address] [place], [address], 05/13/2023 14:34:25 05/13/20 23 05/13/2023 COMPR EHENS KECIA METAB OLIC PANEL carbon dioxide 26 mmol/ L 22-30 Not Available [facility] (Lab) [address] [place], [address], 05/13/2023 14:34:25 05/13/20 23 05/13/2023 COMPR EHENS KECIA METAB OLIC PANEL anion gap 18.4 mmol/ L 14-22 Not Available [facility] (Lab) [address] [place], [address], 05/13/2023 14:34:25 05/13/20 23 05/13/2023 COMPR EHENS KECIA METAB OLIC PANEL glucose 93 mg/dL 70-99 Not Available [facility] (Lab) [address] [place], [address], 05/13/2023 14:34:25 05/13/20 23 05/13/2023 COMPR EHENS KECIA METAB OLIC PANEL BUN 16 mg/dL 8-19 Not Available [facility] (Lab) [address] [place], [address], 05/13/2023 14:34:25 05/13/20 23 05/13/2023 COMPR EHENS KECIA METAB OLIC PANEL creatinine 1.69 mg/dL 0.66-1 .25 high Not Available [facility] (Lab) [address] [place], [address], 05/13/2023 14:34:25 05/13/20 23 05/13/2023 COMPR EHENS KECIA METAB OLIC PANEL GFR 30 Refer ence Range : [place] ge GFR Healt hy Adult : >60 [...] calcu lator is avail able on the [facility] websi te: [email or web address] :[email or web address] cris/pr ofess ional s/kdo qi/gf r_cal culat or Not Available [facility] (Lab) [address] [place], [address], 05/13/2023 14:34:25 05/13/20 23 05/13/2023 COMPR EHENS KECIA METAB OLIC PANEL alkaline phosphatase 58 U/L 38-126 Not Available [facility] (Lab) [address] [place], [address], 05/13/2023 14:34:25 05/13/20 23 05/13/2023 COMPR EHENS KECIA METAB OLIC PANEL alanine aminotransfe rase 16 U/L 0-35 Not Available [facility] (Lab) [address] [place], [address], 05/13/2023 14:34:25 05/13/20 23 05/13/2023 COMPR EHENS KECIA METAB OLIC PANEL aspartate aminotransfe rase 28 U/L 15-37 Not Available [facility] (Lab) [address] [place], [address], 05/13/2023 14:34:25 05/13/20 23 05/13/2023 COMPR EHENS KECIA METAB OLIC PANEL bilirubin, total 0.70 mg/dL 0.20-1 .30 Not Available [facility] (Lab) [address] [place], [address], 05/13/2023 14:34:25 05/13/20 23 05/13/2023 COMPR EHENS KECIA METAB OLIC PANEL calcium 9.3 mg/dL 8.4-10 .2 Not Available [facility] (Lab) [address] [place], [address], 05/13/2023 14:34:25 05/13/20 23 05/13/2023 COMPR EHENS KECIA METAB OLIC PANEL total protein 7.2 g/dL 6.3-8. 2 Not Available [facility] (Lab) [address] [place], [address], 05/13/2023 14:34:25 05/13/20 23 05/13/2023 COMPR EHENS KECIA METAB OLIC PANEL albumin 4.0 g/dL 3.0-4. 4 Not Available [facility] (Lab) [address] [place], [address], 05/13/2023 14:34:25 05/13/20 23 05/13/2023 COMPR EHENS KECIA METAB OLIC PANEL globulin 3.2 g/dL 2.6-4. 2 Not Available [facility] (Lab) [address] [place], [address], 05/13/2023 14:34:25 05/13/20 23 05/13/2023 COMPR EHENS KECIA METAB OLIC PANEL A/G ratio 1.3 ratio 1.0-2. 0 Not Available [facility] (Lab) [address] [place], [address], 05/13/2023 14:34:25 07/04/20 23 07/04/2023 LIPID PANEL cholesterol 165 mg/dL 140-19 9 NIH RHYS NSUS RECOM MENDA TION FOR JENNIFER STERO L: ADULT CHILD LOW RISK: <200 <170 BORDE RLINE : <200- 239 ----- HIGH RISK: >240 >200 Not Available [facility] (Lab) [address] [place], [address], 07/04/2023 13:44:14 07/04/20 23 07/04/2023 LIPID PANEL triglyceride s 173 mg/dL 0-150 high NIH RHYS NSUS REPOR T RECOM MENDA TION FOR TRIGL YCERI LINO: ADULT CHILD LOW RISK: <150 ----- BODER LINE: 150-1 99 ----- HIGH RISK: >200 ----- Not Available [facility] (Lab) [address] [place], [address], 07/04/2023 13:44:14 07/04/20 23 07/04/2023 LIPID PANEL HDL cholesterol 51 mg/dL 40- Not Available [facility] (Lab) [address] [place], [address], 07/04/2023 13:44:14 07/04/20 23 07/04/2023 LIPID PANEL [...] WILL NOT BE REPOR TERRY. Not Available [facility] (Lab) [address] [place], [address], 07/04/2023 13:44:14 07/04/20 23 07/04/2023 COMPR EHENS KECIA METAB OLIC PANEL sodium 140 mmol/ L 137-14 5 Not Available [facility] (Lab) [address] [place], [address], 07/04/2023 13:44:20 07/04/20 23 07/04/2023 COMPR EHENS KECIA METAB OLIC PANEL potassium 4.8 mmol/ L 3.5-5. 1 Not Available [facility] (Lab) [address] [place], [address], 07/04/2023 13:44:20 07/04/20 23 07/04/2023 COMPR EHENS KECIA METAB OLIC PANEL chloride 102 mmol/ L 98-107 Not Available [facility] (Lab) [address] [place], [address], 07/04/2023 13:44:20 07/04/20 23 07/04/2023 COMPR EHENS KECIA METAB OLIC PANEL carbon dioxide 29 mmol/ L 22-30 Not Available [facility] (Lab) [address] [place], [address], 07/04/2023 13:44:20 07/04/20 23 07/04/2023 COMPR EHENS KECIA METAB OLIC PANEL anion gap 13.8 mmol/ L 14-22 low Not Available [facility] (Lab) [address] [place], [address], 07/04/2023 13:44:20 07/04/20 23 07/04/2023 COMPR EHENS KECIA METAB OLIC PANEL glucose 99 mg/dL 70-99 Not Available [facility] (Lab) [address] [place], [address], 07/04/2023 13:44:20 07/04/20 23 07/04/2023 COMPR EHENS KECIA METAB OLIC PANEL BUN 24 mg/dL 8-19 high Not Available [facility] (Lab) [address] [place], [address], 07/04/2023 13:44:20 07/04/20 23 07/04/2023 COMPR EHENS KECIA METAB OLIC PANEL creatinine 1.83 mg/dL 0.66-1 .25 high Not Available [facility] (Lab) [address] [place], [address], 07/04/2023 13:44:20 07/04/20 23 07/04/2023 COMPR EHENS KECIA METAB OLIC PANEL GFR 27 Refer ence Range : [place] ge GFR Healt hy Adult : >60 [...] calcu lator is avail able on the [facility] websi te: [email or web address] :[email or web address] rg/pr ofess ional s/kdo qi/gf r_cal culat or Not Available [facility] (Lab) [address] [place], [address], 07/04/2023 13:44:20 07/04/20 23 07/04/2023 COMPR EHENS KECIA METAB OLIC PANEL alkaline phosphatase 70 U/L 38-126 Not Available [facility] (Lab) [address] [place], [address], 07/04/2023 13:44:20 07/04/20 23 07/04/2023 COMPR EHENS KECIA METAB OLIC PANEL alanine aminotransfe rase 16 U/L 0-35 Not Available [facility] (Lab) [address] [place], [address], 07/04/2023 13:44:20 07/04/20 23 07/04/2023 COMPR EHENS KECIA METAB OLIC PANEL aspartate aminotransfe rase 26 U/L 15-37 Not Available [facility] (Lab) [address] [place], [address], 07/04/2023 13:44:20 07/04/20 23 07/04/2023 COMPR EHENS KECIA METAB OLIC PANEL bilirubin, total 0.50 mg/dL 0.20-1 .30 Not Available [facility] (Lab) [address] [place], [address], 07/04/2023 13:44:20 07/04/20 23 07/04/2023 COMPR EHENS KECIA METAB OLIC PANEL calcium 9.2 mg/dL 8.4-10 .2 Not Available [facility] (Lab) [address] [place], [address], 07/04/2023 13:44:20 07/04/20 23 07/04/2023 COMPR EHENS KECIA METAB OLIC PANEL total protein 6.9 g/dL 6.3-8. 2 Not Available [facility] (Lab) [address] [place], [address], 07/04/2023 13:44:20 07/04/20 23 07/04/2023 COMPR EHENS KECIA METAB OLIC PANEL albumin 3.8 g/dL 3.0-4. 4 Not Available [facility] (Lab) [address] [place], [address], 07/04/2023 13:44:20 07/04/20 23 07/04/2023 COMPR EHENS KECIA METAB OLIC PANEL globulin 3.1 g/dL 2.6-4. 2 Not Available [facility] (Lab) [address] [place], [address], 07/04/2023 13:44:20 07/04/20 23 07/04/2023 COMPR EHENS KECIA METAB OLIC PANEL A/G ratio 1.2 ratio 1.0-2. 0 Not Available [facility] (Lab) [address] [place], [address], 07/04/2023 13:44:20 07/04/20 23 07/04/2023 T4 FREE free T4 0.92 NG/dL 0.78-2 .19 Not Available [facility] (Lab) [address] [place], [address], 07/04/2023 14:08:54 07/04/20 23 07/04/2023 T3 FREE free T3 3.4 pg/mL 2.77-5 .27 Not Available [facility] (Lab) [address] [place], [address], 07/04/2023 14:08:59 07/04/20 23 07/04/2023 HEMOG LOBIN A1C HA1C 5.9 % 4.0-6. 0 Diabe brianna Scree gisele Crite pamela: <5.7% Consi stent with absen ce of diabe brianna 5.7-6 .4% Consi stent with incre ased risk for diabe brianna (pred iabet es) >OR=6 .5% Consi stent with diabe brianna REFER ENCE: Diabe brianna Care 2016, 39(Anderson ppl.1 ):s13 -s22 Not Available [facility] (Lab) [address] [place], [address], 07/04/2023 14:14:23 07/04/20 23 07/04/2023 TSH thyroid-stim ulating hormone 1.210 uIU/m L 0.465- 4.680 Not Available [facility] (Lab) [address] [place], [address], 07/04/2023 14:18:28 03/16/20 23 03/16/2023 US, demetrius y No observ ation record ed. [facility] [address], [place], [address], 04/05/2023 16:52:27 Result Notes None recorded. Problems Name Problem SNOMED Code Status Onset Date Resolution Date Notes Provider Name and Address Organization Details Recorded Time Dyspnea 329750814 Active 2021 Ingrid Nava null, [facility] 16:49:46 Postoperative hypothyroidism 36177814 Active 2021 Ingrid Brandy null, [facility] 16:49:46 Vitamin D deficiency 00068035 Active 2021 Ingrid Brandy null, [facility] 16:49:46 Dyslipidemia 384023188 Active 2021 Ingrid Brandy null, [facility] 16:49:46 Hypothyroidism 23644923 Active 2021 Ingrid Brandy null, [facility] 16:49:46 Hypokalemia 88808854 Active 2021 Ingrid Brandy null, [facility] 16:49:47 Hypercortisoli sm 04117905 Active 2021 Ingrid Brandy null, [facility] 16:49:47 Vitamin B12 deficiency (non anemic) 17157074 Active 2021 Ingrid Brandy null, [facility] 16:49:47 Prediabetes 115346242 Active 2021 Ingrid Brandy null, [facility] 16:49:47 Obesity 511229763 Active 2022 Ingridyaniv Nava null, [facility] 16:49:47 Well controlled type 2 diabetes mellitus 993033272 Active 2022 Stephanie Morrissey MD [address], [facility] [address], [place], [address], [facility] 3 12:31:31 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 Please review these documents and add these problems to the patient's chart manually as needed. Problem Notes None recorded. Procedures Surgical History Date Name Laterality Status Provider Name and Address Organization Details Recorded Time 11/09/19 Foot Surgery completed Not Available [facility] 01/05/2023 22:43:30 removal of cardiac pacemaker completed Not Available [facility] 01/05/2023 22:43:30 [facility] [facility] 01/05/2023 22:43:30 Hysterectomy completed Not Available [facility] 01/05/2023 22:43:30 cholecystectomy completed Not Available [facility] 01/05/2023 22:43:30 Imaging Results Imaging Date Name Status LastModified by Organiz ation Details LastModified Time 03/16/2023 US, kidney completed [email or web address] [facility] [address], [place], [address], 04/05/2023 16:52:27 Procedure Notes None recorded. Medical Equipment None Reported. Allergies Allergen ID Allergen Name Allergen Category Reaction Reaction Severity Criticality Documentation Date Start Date Code Code System Note Provider Name and Address Organization Details Recorded Time 23752 lisinopri l medicatio n Not available Not available Not available 01/05/2023 44052 RxNorm Not Available [facility] 22:48:44 Medications Name Sig Start Date Stop [...] completed Not Available Not Available Not Available [employer] Ultra Test strips USE TO TEST 2-4 [...] % 99 % 74 /min 97.6 [degF] 26449.8 4 g 120 mm[Hg] 75 mm[Hg] Not Available [facility] 3 22:45:29 Date Recorded Body mass index (BMI) Body height Oxygen saturation Oxygen saturation in Arterial blood by Pulse oximetry Heart rate Body temperature Body weight Systolic blood pressure Diastolic blood pressure Provider Name and Address Organization Details Last Updated DateTime 2 40.2 kg/m2 157.48 cm 96 % 96 % 65 /min 97.3 [degF] 65893.3 2 g 130 mm[Hg] 55 mm[Hg] Not Available [facility] 3 22:45:29 Date Recorded Body mass index (BMI) Body height Oxygen saturation Oxygen saturation in Arterial blood by Pulse oximetry Heart rate Body temperature Body weight Systolic blood pressure Diastolic blood pressure Provider Name and Address Organization Details Last Updated DateTime 3 39.1 kg/m2 157.48 cm 96 % 96 % 58 /min 97.6 [degF] 49970.7 7 g 140 mm[Hg] 65 mm[Hg] Not Available [facility] 3 22:45:29 Date Recorded Body height Body mass index (BMI) Body weight Body temperature Respiratory rate Heart rate Systolic blood pressure Diastolic blood pressure Provider Name and Address Organization Details Last Updated DateTime 3 157.48 cm 39.8 kg/m2 36299.9 8 g 96.1 [degF] 20 /min 67 /min 130 mm[Hg] 64 mm[Hg] CANDIE Avelar [facility] [employer] [facility] 3 11:52:51 Date Recorded Body height Body mass index (BMI) Body weight Heart rate Body temperature Systolic blood pressure Diastolic blood pressure Provider Name and Address Organization Details Last Updated DateTime 3 157.48 cm 40.8 kg/m2 389558. 82 g 63 /min 97.1 [degF] 142 mm[Hg] 70 mm[Hg] Nicole Chavis MA [facility] [employer] [facility] 3 12:11:36 Social History Question Answer Notes LastModified by Organizat ion Details LastModified Time Tobacco Smoking Status Former Smoker Not Available [facility] 01/05/2023 22:43:25 Do You Have An Advance Directive? No Information not available 07/14/2023 What Is Your Level Of Alcohol Consumption? None [id number] Information not available 01/05/2023 Are You Blind Or Do You Have Difficulty Seeing? No Information not available 07/14/2023 Is Blood Transfusion Acceptable In An Emergency? Yes Information not available 07/14/2023 What Is Your Level Of Caffeine Consumption? Heavy [id number] Information not available 01/05/2023 What Is Your [...] 07/14/2023 Are You Currently Employed? No Retired [employer] Information not available 07/14/2023 Are You Deaf Or Do You Have Serious Difficulty Hearing? Yes Age Related Hearing Loss Information not available 07/14/2023 What Type Of Diet Are You Following? REGULAR Information not available 07/14/2023 What Is The Highest Grade Or Level Of School You Have Completed Or The Highest Degree You Have Received? [id number] Information not available 07/14/2023 When Did You Quit Smoking? 1-5yearssinc elastcigaret te [id number] Information not available 01/05/2023 Are There Any Guns Present In Your Home? No Information not available 07/14/2023 Where Do You Live? Apartment Information not available 07/14/2023 Do You Have A Medical Power Of Research And Evaluation Analyst? No Information not available 07/14/2023 What Is Your Relationship Status? [id number] Information not available 01/05/2023 Do You Use Your Seat Belt Or Car Seat Routinely? Yes Information not available 07/14/2023 Do You Have Smoke And Carbon Monoxide Detectors In Your Home? Yes Information not available 07/14/2023 Are You Passively Exposed To Smoke? No Information not available 07/14/2023 Do You Feel Stressed (tense, Restless, Nervous, Or Anxious, Or Unable To Sleep At Night)? [id number] Anxiety And Depression Information not available 07/14/2023 Do You Use Any Illicit Or Recreational Drugs? No [id number].[id number] Information not available 01/05/2023 Do You Use Sunscreen Routinely? Yes Information not available 07/14/2023 Has Tobacco Cessation Counseling Been Provided? No [id number].[id number] [id number] Information not available 01/05/2023 Have You Recently Traveled Abroad? No Information not available 07/14/2023 Do You Have Any Dietary Restrictions? No Information not available 07/14/2023 Do You Or Have You Ever Used Any Other Forms Of Tobacco Or Nicotine? No [id number].[id number] [id number] Information not available 01/05/2023 Sex: Female Functional [...] LastModified Time Father Malignant neoplasm of brain [id number] Not available 01/05/2023 22:43:33 Mother Chronic obstructive pulmonary disease AUGUST [id number] Not available 01/05/2023 22:43:33 Medical History Condition Response KIDNEY DISEASE Y HYPERTENSION Y HIGH CHOLESTEROL / HYPERLIPIDEMIA Y OBESITY Y ANEMIA/BLOOD DISORDER Y HYPOTHYROIDISM Y HAVE YOU BEEN HOSPITALIZED OR SEEN IN [facility] ER IN THE PAST YEAR ? Y Gynecological HistoryNo gynecological history recorded. Obstetrics History GPAL:G 3 P 3 0 0 0 Type Value Full Term 3 Total 3 Past Encounters Encounter ID Performer Location Encounter Start Date Encounter Closed Date Diagnosis/Indication Diagnosis SNOMED-CT Code Diagnosis ICD10 Code Diagnosis Note [id number] _ATHENA_M IGRATION_ DEFAULT_1 _1 , 07/23/2021 00:00:00 07/23/2021 16:41:16 [id number] [facility] [address] [place] [address] 09/21/2021 00:00:00 09/21/2021 15:39:35 [id number] _ATHENA_M IGRATION_ DEFAULT_1 _1 , 01/21/2022 00:00:00 01/21/2022 15:21:48 [id number] _ATHENA_M IGRATION_ DEFAULT_1 _1 , 04/29/2022 00:00:00 04/29/2022 15:22:35 [id number] _ATHENA_M IGRATION_ DEFAULT_1 _1 , 05/27/2022 00:00:00 05/27/2022 17:30:55 [id number] _ATHENA_M IGRATION_ DEFAULT_1 _1 , 06/24/2022 00:00:00 06/24/2022 22:01:51 [id number] [facility] [address] [place] [address] 10/15/2022 00:00:00 10/15/2022 21:47:35 [id number] [facility] [address] [place] [address] 12/17/2022 00:00:00 12/17/2022 13:58:24 [id number] Stephanie Morrissey MD [facility] [address] [place] [address] 03/17/2023 11:38:23 03/17/2023 12:30:34 Prediabetes 135031099 R73.03 Patient actually well controlled DM- a1c [...] Recommende d she incorporat e natural insulin release and technical records clerk s such as pears, apples, cinnamon, janie and sweet potatoes to help mobilize her endogenous insulin. Recommende d up to 150 minutes of moderate level activity/e xercise weekly. Continue on kerendia for proteinuri a. Repeat K in range and microalbum in trending downward. Obesity 099714435 E66.9 Recommende d GLP1 agonist therapy as she is having trouble at times with cravings of sweets and portion control. 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 She has no hx of [...] meal of that day as tolerated. Hypothyroidism 59153913 E03.9 Will uptitrate unithroid to 100 mcg [...] and minerals and reduce inflammati on. Hypercortisolism 3405325 [address] adrenal completed [...] she chooses to go outside of the [facility] system to obtain labwork she was [...] in her case. She voiced understand ing. [id number] Stephnaie Morrissey MD [facility] [address] [place] [address] 07/14/2023 11:51:07 07/14/2023 12:50:55 Well controlled type 2 diabetes mellitus [id number] E11.9 a1c of 5.9% in range- no [...] Recommende d she incorporat e natural insulin release and technical records clerk s such as pears, apples, cinnamon, janie and sweet potatoes to help mobilize her endogenous insulin. Recommende d up to 150 minutes of moderate level activity/e xercise weekly. Hypothyroidism 79069050 E03.9 FT4 in range - continue unithroid [...] and minerals and reduce inflammati on. Hypercortisolism 4768045 [address] adrenal completed [...] Pena Member ID Guarantor Name 03/17/2023 1 [facility] (MEDICARE REPLACEMENT/A DVANTAGE - PPO) [id number] Jacy Mills [id number] Jacy Mills 03/17/2023 2 [place] [facility] Jacy Mills [id number] Jacy Mills 07/14/2023 1 [facility] (MEDICARE REPLACEMENT/A DVANTAGE - PPO) [id number] Jacy Mills [id number] Jacy Mills 07/14/2023 2 [place] [facility] Jacy Mills [id number] Jacy Mills Notes Date Note Type Note [...] started kerendia for proteinuria. Patient sent to [facility] and per [...] 26 ml/minLFT normal Stephanie Morrissey MD [address] [facility], [facility] [address], [place], [address], [place] [facility] [employer] 03/17/2023 14:04:12 07/14/2023 text/html 77 yo female [...] ng/dlFt3 of 3.4 pg/mLa1c of 5.9%K 4.8 mmol/spot washer normalglucose 99 mg/dLCr 1.83 mg/dL with GFR 27 ml/minLFT normal Stephanie Morrissey MD [address], [facility] [address], [place], [address], [place] [employer] [facility] 07/14/2023 13:34:56 OBGyn Episode No OBEpisode recorded.
--- OUTSIDE RECORDS SUMMARY | 2025-02-13 14:53 | XMS_ITS | Clinical Summary ---
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 Follow-up 2-3 days after discharge, to consider restarting Mifepristone. Also to monitor Synthroid dose and thyroid studies - DC'd with 88mcg synthroid. 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 Fitch at [facility] on 06/28 Acute pulmonary edema 05/18/20222021 Assessment [...] room air- transition to torsemide per police and fire dispatcher, add low dose potassium supplement. Continue to [...] Type Department Care Team Description 01/18/2025 Telephone [facility] Rheumatology [address] [facility] [address]th [place] [address] [place] [id number] Zarina Carroll MD Discuss Test Results 01/14/2025 Telephone [facility] Endocrinology Metabolism and Lipid [address] [facility] [address]th [place] [address] [place] [address] Nahed Santoro RMA Appointment (Referral from [facility]) 12/12/2024 Orders Only [facility] Cardiology [address] [place] [address] Herminia Smith NP from Last [...] often do you attend chur ch or episcopal services? Never 05/31/2023 Do you belong to any clubs o r organizations such as hoahaoism groups, unions, fraternal or athletic groups, or [...] place to sleep or slept in a snf (including now)? No 05/31/2023 Personal Safety Answer Date Recorded Have you ever been in or are you currently in a harmful physical or emotional relationship or is someone making you feel afraid or unsafe? 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 Gender Identity Not on file Sexual Orientation Not on file Obstetrics History Last Filed Vital Signs Vital Sign Reading Time Taken Comments Blood Pressure 123/61 10/10/2024 1:09 PM VEHICLE CALIBRATION ENGINEER Pulse 70 10/10/2024 1:09 PM VEHICLE CALIBRATION ENGINEER Temperature 36.7 C (98 F) 10/10/2024 1:09 PM VEHICLE CALIBRATION ENGINEER Respiratory Rate 20 06/01/2023 11:31 AM CDT Oxygen Saturation 88% 08/10/2024 10:08 AM CDT Inhaled Oxygen Concentration - - Weight 106 kg (233 lb 9.6 oz) 10/10/2024 1:09 PM VEHICLE CALIBRATION ENGINEER Height 156.2 cm (5' 1.5 ) 10/10/2024 1:09 PM VEHICLE CALIBRATION ENGINEER Body Mass Index 43.42 10/10/2024 1:09 PM VEHICLE CALIBRATION ENGINEER Plan of Treatment Health Maintenance Due Date Last Done Comments Depression Screening 1945 Osteoporosis Screening-Bone Density Scan 1945 Hepatitis B Screening 1965 Lung Cancer Screening 1997 Zoster Vaccine (1 of 2) 1997 Well Visit 65+ 2012 Pneumococcal vaccine 65+ (2 of 2 - PPSV23) 01/21/2016 11/26/2015, 11/07/2009 Fall Risk Assessment 06/01/2024 06/01/2023 Covid-19 Vaccine ( season) 2024, 01/23/2021 Influenza Vaccine (Season Ended) 2025 08/07/20, 07/18/2020 DTaP/Tdap/Td Vaccine (2 - Td or Tdap) 02/04/2031 Breast Cancer Screening-Mammogram Discontinued 014 Hepatitis C Screening Completed 08/10/2024 Procedures Procedure Name Priority Date/Time Associated Diagnosis Comments CARDIOLOGY DOCUMENT SCAN Routine 12/07/2024 4:14 PM VEHICLE CALIBRATION ENGINEER HEPATITIS PANEL, ACUTE Routine 08/10/2024 12:01 PM CDT Interstitial pulmonary disease (HCC) from Last 3 Months or Most Recently Relevant to Health Maintenance Results * Cardiology Document Scan (12/07/2024 4:14 PM VEHICLE CALIBRATION ENGINEER) Anatomical Region Laterality Modality Other us Herminia Smith NP CV CARDIAC SERVICES PROCEDUR ES Final Result * Hepatitis panel, acute Blood (08/10/2024 12:01 PM CDT) Hep A IgM Nonreactive Nonreactive Hep B core IgM Nonreactive Nonreactive [facility] Hep C Ab Nonreactive Nonreactive [facility] Comment:Antibodies to HCV no t detected. Does NOT exclude the possibility of recent exposure to HCV. Current interpretive data was last revised on 22 HepBsAg Nonreactive Nonreactive [facility] Blood 08/10/2024 12:0 1 PM CDT 08/10/2024 2:23 PM CDT us Zarina Carroll MD LAB MICROBIOLOGY - GENERAL ORDER TATO Final Result [facility] [place] [address] from Last 3 Months or Most Recently Relevant to Health Maintenance Insurance [facility] MEDICARE ADVANTAGE IDPA [facility] MEDICARE ADVANTAGE IDPA [facility] MEDICARE ADVANTAGE IDPA Advance Directives For more information, please contact: [phone] * Full Code (Latest Code Status on File) Date Activated Date Inactivated Comments 05/30/2023 2:42 AM 06/01/2023 6:25 PM * Full Code Date Activated Date Inactivated Comments 05/30/2023 12:31 AM 05/30/2023 2:42 AM * Full Code Date Activated Date Inactivated Comments 05/05/2022 2:33 PM 05/14/2022 7:09 PM Care Teams Senior Management Consultant Relationship Specialty Start Date End Date Jn Velásquez MD PCP - General Family Medicine 05/29/23 Waqas De Leon MD Internal Medicine 11/20/21 Waqas De Leon MD Internal Medicine 06/06/19 Cortney Corona MD Referring Physician Surgery 05/14/22 Miscellaneous, Not In File 05/31/23 Daniel Go MD [address] [place] [address] Consulting Physician Interventional Cardiology 05/31/23 [place] [address] [facility] [address] [place] [address] Consulting Physician Pulmonary Disease 05/31/23
--- OUTSIDE RECORDS SUMMARY | 2025-02-13 14:53 | XMS_ITS | CONTINUITY OF CARE DOCUMENT ---
Author Name sterlingjud sterlingjud Address Unknown Organization [facility] Address [address] [place] [address] Phone [phone] Care Team Providers Care Knife Grinder Name Role Phone Braulio KING, Roberto Carlos Unavailable [phone] SIOBHAN KING, SUE Unavailable [phone] SUE MCCANN MD Unavailable [phone] PROBLEMS Condition Status Date Provider Notes Abnormal [...] regurgitation, mild-moderate active Tyrell Berumen PVD active Penny Melendez COPD active Staci Diaz NP Spinal stenosis, lumbar region with neurogenic claudication active Staci Diaz FERN CUTTER Chronic kidney disease stage 2 active Staci Diaz NP Chest pain-type to be determined active Cedric Valdez Orthostatic hypotension active Jason Beatt y Aortic stenosis active Staci Green NP CHF - diastolic active Staci Green NP ENCOUNTERS Date Type Provider Location Encounter Diag nosis 12/14 - 2 In-person encounter Office Visit Roberto Carlos Ramsey MD [facility] Aortic stenosisCHF - diastolic 12/13 - 2 In-person encounter Office Visit Roberto Carlos Ramsey MD [facility] Orthostatic hypotension 11/11 - 11/11 In-person encounter Office Visit Roberto Carlos Ramsey MD [facility] 0 - 0 In-person encounter Office Visit Roberto Carlos Ramsey MD [facility] 07/06 - 07/07 In-person encounter Office Visit Roberto Carlos Ramsey MD [facility] 05/04 - 05/08 In-person encounter Office Visit Roberto Carlos Ramsey MD [facility] 03/11 - 03/11 In-person encounter Office Visit Roberto Carlos Ramsey MD [facility] 02/25 - 02/25 In-person encounter Office Visit Roberto Carlos Ramsey MD [facility] Chest pain-type to be determined - In-person encounter Office Visit Roberto Carlos Ramsey MD [facility] 06/04 - 06/08 In-person encounter Office Visit Roberto Carlos Ramsey MD [facility] 03/05 - 03/08 In-person encounter Office Visit Roberto Carlos Ramsey MD [facility] 12/25 - 01/04 In-person encounter Office Visit Roberto Carlos Ramsey MD [facility] Leg painBradycardia sinusCOPDSpinal sten osis, lumbar region with neurogenic claudicationChronic kidney disease stage 2 03/13 - 03/13 In-person encounter Office Visit Roberto Carlos Ramsey MD [facility] Hx of tobacco abusePVD 02/14 - 02/18 In-person encounter Office Visit Roberto Carlos Ramsey MD [facility] 02/09 - 02/09 In-person encounter Office Visit Roberto Carlos Ramsey MD [facility] Aortic regurgitation, mild-moderate 0 - In-person encounter Office Visit Roberto Carlos Ramsey MD [facility] 12/22 - 12/22 In-person encounter Office Visit Roberto Carlos Ramsey MD [facility] Hx of tobacco abuse 11/23 - 11/23 In-person encounter Office Visit Roberto Carlos Ramsey MD [facility] Abdominal bruit 03/25 - 04/06 In-person encounter Office Visit Roberto Carlos Ramsey MD [facility] 12/10 - 12/15 In-person encounter Office Visit Roberto Carlos Ramsey MD [facility] Carotid artery stenosis, <50% ICA b/lSle ep apnea, obstructive - on CPAPArthritisFatigueAnxietyDepression 12/09 - 12/17 In-person encounter Office Visit Roberto Carlos Ramsey MD [facility] Carotid artery stenosis, <50% ICA b/lS/P EXPLANTED Biotronik dc (MRI Safe) pmBacteremia S/P PACEMAKER EXPLANTATIONObesity 11/24 - 11/28 In-person encounter Office Visit Roberto Carlos Ramsey MD [facility] HypothyroidismDiaphoresisHypertensionArt hritis - In-person encounter Office Visit Roberto Carlos Ramsey MD [facility] Bacteremia S/P PACEMAKER EXPLANTATION - In-person encounter Office Visit Faisal Carlos MD [facility] Leg edemaSleep apnea, obstructive - on CPAPChronotropic incompetence 12/14 - 12/17 In-person encounter Office Visit Faisal Carlos MD [facility] Carotid artery stenosis, <50% ICA b/l 11/22 - 11/25 In-person encounter Office Visit Faisal Carlos MD [facility] Shortness of breathHx of tobacco abuseDizzinessHypothyroidismDiaphoresis VITAL SIGNS Date Observation Value Provider Body Mass Index (Ratio) 46.45 kg/m2 Cedric Valdez blood pressure, diastolic 66 mm[Hg] [facility] blood pressure, systolic 144 mm[Hg] [facility] oxygen saturation, oximetry 97 % [facility] respiratory rate E&M 20 /min [facility] pulse rate 64 /min [facility] weight E&M 254 [lb_av] [facility] blood pressure, cuff size regular Vi pin [facility] height E&M 62 [in_i] [facility] Body Mass Index (Ratio) 43.53 kg/m2 Cong Salomonty blood pressure, cuff size large [facility], diastolic 72 mm[Hg] [facility] blood pressure, systolic 126 mm[Hg] Ker ri [facility] oxygen saturation, oximetry 91 % Nia Montez pulse rate 65 /min Nia Akash [facility] weight E&M 238 [lb_av] Nia Titoe [facility] height E&M 62 [in_i] Nia Titoe [facility] Body Mass Index (Ratio) 44.81 kg/m2 Cong duenas Damion blood pressure, cuff size large Ke rri Grnedranenfeld blood pressure, diastolic 80 mm[Hg] Ke rri Gruenenfeld blood pressure, systolic 122 mm[Hg] Laurie ri Virgie oxygen saturation, oximetry 95 % Nia Virgie respiratory rate E&M 12 /min Nia Amin miguelangel pulse rate 68 /min Nia Bustos [facility] weight E&M 245 [lb_av] Nia Francise [facility] height E&M 62 [in_i] Nia Akash [facility] Body Mass Index (Ratio) 41.88 kg/m2 Cedric Valdez pulse rate 69 /min Nanci iMlls blood pressure, diastolic 64 mm[Hg] An johanna [...] pressure, diastolic 58 mm[Hg] Elijah lua Fendler FERN CUTTER blood pressure, systolic 140 mm[Hg] Oliva horne Fendler FERN CUTTER oxygen saturation, oximetry 93 % Nia Montez respiratory rate E&M 14 /min Nia Amin miguelangel pulse rate 62 /min Nia Bustos er weight E&M 221 [lb_av] Nia Akash [facility] height E&M 62 [in_i] Nia Bustos er Body Mass Index (Ratio) 38.95 kg/m2 Ike Ramsey MD blood pressure, diastolic 61 mm[Hg] Li nkLog blood pressure, systolic 114 mm[Hg] Kamran kLog blood pressure, diastolic 61 mm[Hg] Hallie Thapa blood pressure, systolic 114 mm[Hg] [facility] darius Thapa oxygen saturation, oximetry 94 % [...] er height E&M 62 [in_i] Nia Gruenenfe [facility] Body Mass Index (Ratio) 33.47 kg/m2 Jord [...] smith Matthews oxygen saturation, oximetry 99 % Hoffman Matthews respiratory rate E&M 16 /min Hoffman Matthews pulse rate 77 /min Tomás Matthews weight E&M 208 [lb_av] Hoffman Matthews height E&M 62 [in_i] Tomás Matthews [...] swatitraceyjesus pulse rate 79 /min Nia Bustos [facility] weight E&M 213 [lb_av] Nia Bustos [facility] height E&M 62 [in_i] Nia Bustos [facility] Body Mass Index (Ratio) 38.41 kg/m2 Ike [...] Gruenenf pulse rate 52 /min Nia Bustos [facility] oxygen saturation, oximetry 94 % Nia Ridleyalex [...] Ysabel Norris blood pressure, diastolic 58 mm[Hg] Ct gonzales Norris blood pressure, systolic 136 mm[Hg] Ruthie sera Norris pulse rate 68 /min Ysabel Norris oxygen saturation, oximetry 96 % Ysabel Norris respiratory rate E&M 15 /min Ysabel Norris Body Mass Index (Ratio) 38.04 kg/m2 Sylvie kelley weight E&M 208 [lb_av] Ysabel Norris blood pressure, diastolic 71 mm[Hg] Ct gonzales Norris blood pressure, systolic 141 mm[Hg] [...] Estab. 6 platelet count 268 X10E3/UL [employer] [phone]/02/2 6 red blood cell distribution width 14.5 [...] 0-149 1 cholesterol, serum 156 mg/dL [employer] [phone]/04/1 1 basophil count, absolute 0.1 x10E3/uL [employer] [...] Estab. 1 platelet count 366 X10E3/UL [employer] [phone]/04/1 1 red blood cell distribution width 14.0 [...] 3.5-5.2 1 sodium, serum 141 mmol/L [employer] [phone]/04/1 1 urea nitrogen/creatinine ratio, serum 13 [employer] [...] DAILY. RINSE MOUTH WITH WATER AND SPIT Uirel Melchor minoxidil 2.5 mg tablet active TAKE [...] mg tablet completed - 07/06 Zuly Nalluri FERN CUTTER Farxiga 5 mg tablet completed Take 1 [...] EVERY DAY 02/25 - 07/06 Zuly Silvestre FERN CUTTER nitroglycerin 0.4 mg tablet, sublingual active PLACE 1 TAB UNDER TONGUE EVERY 5 MIN NEEDED FOR CHEST PAIN (MAX 3 DOSES).IF NO RELIEF AFTER 3RD DOSE GO TO ER 02/25 Staci Green FERN CUTTER Breo Ellipta 100-25 mcg/dose blister with device [...] every morning 01/13 - 02/25 Carley Wynn FERN CUTTER #30, 30 days supply, Prescribed by CARLEY [...] HCL) completed 1 tab daily - 06/10 Nai Franciseldprachi ASPIRIN 81 MG ORAL TABLET completed ONE TAB. DAILY - 06/10 Nia Nullsilvestreprachi ATORVASTATIN CALCIUM 80 MG ORAL TABLET completed take one daily 02/09 - 06/10 Nia Nullsilvestreprachi LISINOPRIL 20 MG ORAL TABLET completed twice daily - 06/10 Nia Ridleyjihanprachi VITAMIN D (ERGOCALCIFEROL) 77725 UNIT ORAL CAPSULE completed once a week - 06/10 Geraldine Torres SOCIAL HISTORY Date Observation Value Provider alcohol use no Staci Green FERN CUTTER smoking, year quit 2018 Staci Angulo patrick FERN CUTTER number of years as a smoker 50 a Staci Green FERN CUTTER smoking history, tot al pack/day 1 ppd Staci Green FERN CUTTER cigarette use yes Staci Green FERN CUTTER smoking status Former smoker Staci ann FERN CUTTER alcohol use no Jason Bruno smoking, year [...] pierceelder smoking, year quit 2018 Carley Wynn FERN CUTTER number of years as a smoker 50 a Carley Wynn FERN CUTTER smoking status Former smoker Carley queen FERN CUTTER smoking history, tot al pack/day 1 ppd Carley Wynn FERN CUTTER cigarette use yes Carley velarde FERN CUTTER social history E&M S moking History: Justin [...] cess ation, patient education and counseling yes Hoffman Matthews alcohol use no Hoffman Matthews cigarette use yes Hoffman Matthews smoking status Current every day smoker [...] jesus smoking status Former smoker Nia Baker [facility] social history reviewed E&M revi ewed - no changes required Roberto Carlos Ramsey MD alcohol use no Nia Ridleynedranicollestannadeem [facility] cigarette use yes Nia Ridleycarlstan jesus smoking status Former smoker Nia Baker [facility] smoking status Former smoker Roberto Carlos pierce [...] Payer name Policy type / Coverage type [place] red democrat ID [id number] (PPO C-SNP) [email or web address] insurance [id number] [facility] Medicaid 1 [id number] ADVANCE DIRECTIVES Name Date DISCUSSED - NO DECISION MADE TREATMENT PLAN Date Name Performer [id number],C,w ill check PFT w ill send in breo inhaler for now Cedric Valdez [id number],C,s ays she has persistent fatigue and it has been affecting her routine life w ill check PFT h er Cath showed mild CAD s he has diastolic dysfunction Cedric Valdez [id number],C,c ath 04/2023 F INAL RESULTS: T he [...] with increased LVEDP consistent with diastolic dysfunction [facility] [id number],C, c arotids: 07/15/22 Mild plaque with less than 50% stenosis of the internal carotid arteries bilaterally. Vertebral flow is antegrade bilaterally. [facility] [id number],C, B P today: 140/64 P rior BP: 130/80 (07/06/2023) Labs Reviewed: C reat: 2.02 (02/16/2020) C hol: 156 (02/16/2020) HDL: 66 (02/16/2020) [facility] [id number],C,will check PF T [facility] [id number],C, N o recurrent episodes of chest pain [facility] [id number],C,moderate Adam Silvestre FERN CUTTER [id number],C, P FTs: minimal obstructive airways disease and significant decrease in FEV1 when compared to previous study. 6 minute walk test: ambulated 6 minutes. O2 sats 95-96% on room air. 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 Take 1 tablet by mouth once a day Hydralazine 50 Mg Tablet (Hydralazine) ..... Take 1 tablet by mouth three times a day Zuly Nalluri FERN CUTTER [id number],C, n ot compliant with cpap Zuly Nalluri FERN CUTTER [id number],C, h as been in contact with [facility] to have weight loss surgery. started on ozempic yesterady Zuly Nalluri FERN CUTTER [id number],C, T race bilateral leg edema. on lasix 20 mg Po Zuly Nalluri FERN CUTTER [id number],C, c arotids: 07/15/22 Mild plaque with less than 50% stenosis of the internal carotid arteries bilaterally. Vertebral flow is antegrade bilaterally. Zuly Nalluri FERN CUTTER [id number],C, H er updated medication list for this problem includes: Levothyroxine 88 Mcg Tablet (Levothyroxine) ..... 1 tablet once a day Zuly Nalluri FERN CUTTER [id number],C,Will order 2 week tele monitor Zuly Nalluri FERN CUTTER [id number],C, S uggested patient lose more weight. BP [...] once a day Roberto Carlos Ramsey MD [id number],C,l ab tests from 04/19/23 showed creatinine of 1.86 and BUN of 29 Roberto Carlos Ramsey MD [id number],W, H as mild bilateral leg edema. Blue Herrmann [id number],C, Blue serrato [id number],C, S uggested patient lose more weight. BP [...] tablet by mouth once a day [facility] [id number],S,l ab tests from 04/19/23 showed creatinine of 1.86 and BUN of 29 [facility] [id number],S, P FTs: minimal obstructive airways disease and significant decrease in FEV1 when compared to previous study. 6 minute walk test: ambulated 6 minutes. O2 sats 95-96% on room air. H er updated medication list for this problem includes: Albuterol Sulfate 90 Mcg/actuation Hfa Aerosol Inhaler (Albuterol sulfate) ..... Inhale 1 puff using inhaler three times a day as needed [facility] [id number],S, C ontinues to feel fatigued. Blue Herrmann [id number],N, Roberto Carlos pierce MD [id number],W, H er updated medication list for this [...] go to er Roberto Carlos Ramsey MD [id number],C,e cho today C ONCLUSIONS: 1 . Technically [...] Moderate aortic wall calcification. Carley Wynn NP [id number],C, stress test - will await for results [...] experience SOB/HOWELL and fatigue Carley Wynn NP [id number],C,compliant wit h cpap Carley Wynn NP [id number],C, B P today: 126/80 P rior BP: 140/58 (02/25/2023) Labs Reviewed: C reat: 2.02 (02/16/2020) C hol: 156 (02/16/2020) HDL: 66 (02/16/2020) Her updated medication list for this problem includes: Hydralazine 50 Mg Tablet (Hydralazine) ..... Take 1 tablet by mouth three times a day Amlodipine 5 Mg Tablet (Amlodipine) ..... Take 1 tablet by mouth once a day Carley Wynn NP [id number],C,o n [facility] Carley Wynn HUNG [id number],C,on supplement ation. Carley Wynn HUNG [id number],C,c arotids: 07/15/22 Mild plaque with less than 50% stenosis of the internal carotid arteries bilaterally. Vertebral flow is antegrade bilaterally. checking nuclear stress test. unable to walk on treadmill d/t back, hip and knee pain. Carley Wynn HUNG [id number],C, B P today: 140/58 P rior BP: [...] mouth once a day Carley Wynn HUNG [id number],C,. Pt reports that a couple of days [...] and prn SL NTG Carley Álvarezlottie PERSAUD [id number],C, Roberto Carlos pierce MD [id number],S, H er updated medication list for this problem includes: Hydrochlorothiazide 25 Mg Tablet (Hydrochlorothiazide) ..... Take 1 tablet by mouth once a day Amlodipine 10 Mg Tablet (Amlodipine) ..... Take 1 tablet by mouth once a day Orders: T obacco cessation counseling, 3-10minutes (42158) Roberto Carlos Ramsey MD [id number],C, Roberto Carlos pierce MD [id number],C, O rders: E KG (CPT-07112) Roberto Carlos Ramsey MD [id number],C,C ontinues to be SOB and currently does not know if she needs supplemental O2. I will start her on Albuterol inhaler and Breo ellipta inhaler and see how she does. Will check PFTs and 6 minute walk test . O rders: 9 9215 HIGH 40-54min (CPT-29055) C arotid Duplex Bilateral (CPT-30234) F VC - 08672 (58841) F RC - 17296 (05956) D LCO - 82800 (82751) 6 minute walk test (CPT-15249) Her updated medication list for this problem includes: Amlodipine 10 Mg Tablet (Amlodipine) ..... Take 1 tablet by mouth once a day Hydrochlorothiazide 25 Mg Tablet (Hydrochlorothiazide) ..... 1 tablet by mouth once a day Cedric Valdez [id number],S, O rders: 9 9215 HIGH 40-54min (CPT-26283) C arotid Duplex Bilateral (CPT-99086) F VC - 88747 (26418) F RC - 42139 (68178) D LCO - 95057 (73702) 6 minute walk test (CPT-28473) Cedric Valdez [id number],C, P FTs: minimal obstructive airways disease and [...] as needed Orders: 9 9215 HIGH 40-54min (CPT-35934) C arotid Duplex Bilateral (CPT-91319) F VC - 05533 (00268) F RC - 26613 (20205) D LCO - 37176 (65449) 6 minute walk test (CPT-51119) Cedric Valdez [id number],C,A dvised to cut back salt intake. Will start her on Amlodipine 10 mg and see how she does. Will check carotid duplex as she has mild carotid bruits. BP today: 191/80 P rior BP: 110/70 (03/05/2022) Labs Reviewed: C reat: 2.02 (02/16/2020) C hol: 156 (02/16/2020) HDL: 66 (02/16/2020) Orders: 9 9215 HIGH 40-54min (CPT-35660) C arotid Duplex Bilateral (CPT-45434) F VC - 12068 (38482) F RC - 66681 (72181) D LCO - 30675 (07644) 6 minute walk test (CPT-73493) Her updated medication list for this problem includes: Amlodipine 10 Mg Tablet (Amlodipine) ..... Take 1 tablet by mouth once a day Hydrochlorothiazide 25 Mg Tablet (Hydrochlorothiazide) ..... 1 tablet by mouth once a day Cedric Valdez [id number],S, O rders: 9 9215 HIGH 40-54min (CPT-30380) C arotid Duplex Bilateral (CPT-09954) F VC - 91418 (97466) F RC - 84225 (04359) D LCO - 79650 (29206) 6 minute walk test (CPT-92261) Cedric Valdez [id number],C,H ad telemetry one week: 2 second episode of NSVT. Staci Diaz NP [id number],S,T he patient is using CPAP on a regular basis. The patient has been benefiting from therapy and should continue use. Staci Diaz NP [id number],S, H er updated medication list for this problem includes: Hydrochlorothiazide 25 Mg Tablet (Hydrochlorothiazide) ..... 1 tablet by mouth once a day Staci Diaz NP [id number],S,e cho shows mild to moderate AVR. Next echo in one year. Staci Diaz NP [id number],S,P FTs: minimal obstructive airways disease and significant decrease in FEV1 when compared to previous study. 6 minute walk test: ambulated 6 minutes. O2 sats 95-96% on room air. Staci Diaz NP [id number],S, O rders: F VC - 05081 (00358) F RC - 88635 (77866) D LCO - 05999 (74523) 6 minute walk test (CPT-49338) C OMPREHENSIVE METABOLIC PANEL, W/EGFR (52729) C BC (INCLUDES DIFF/PLT) (6399) L IPID PANEL (7600) H EMOGLOBIN A1c (496) B TYPE NATRIURETIC PEPTIDE (BNP) (85771) P ROBNP, N TERMINAL (35815) M onitor - Telemetry (Mobile Cardiac) (CPT-29824) Roberto Carlos Ramsey MD [id number],S,c heck PFTs O rders: F VC - 69250 (76236) F RC - 30983 (19303) D LCO - 47903 (05844) 6 minute walk test (CPT-53442) C OMPREHENSIVE METABOLIC PANEL, W/EGFR (03783) CBC (INCLUDES DIFF/PLT) (6399) L IPID PANEL (7600) H EMOGLOBIN A1c (496) B TYPE NATRIURETIC PEPTIDE (BNP) (26976) P ROBNP, N TERMINAL (35243) M onitor - Telemetry (Mobile Cardiac) (CPT-87962) Roberto Carlos Ramsey MD [id number],S, O rders: C omplete Echo (CPT-98824) 6 minute walk test (CPT-12959) C OMPREHENSIVE METABOLIC PANEL, W/EGFR (63349) C BC (INCLUDES DIFF/PLT) (6399) L IPID PANEL (7600) H EMOGLOBIN A1c (496) B TYPE NATRIURETIC PEPTIDE (BNP) (67092) P ROBNP, N TERMINAL (10106) M onitor - Telemetry (Mobile Cardiac) (CPT-43754) 9 9213 LTD 20-29min (CPT-47258) Roberto Carlos Ramsey MD [id number],C, O rders: C omplete Echo (CPT-20462) F VC - 88834 (02601) F RC - 01314 (41075) D LCO - 57342 (85204) 6 minute walk test (CPT-85801) C OMPREHENSIVE METABOLIC PANEL, W/EGFR (40967) C BC (INCLUDES DIFF/PLT) (6399) L IPID PANEL (7600) H EMOGLOBIN A1c (496) B TYPE NATRIURETIC PEPTIDE (BNP) (55709) P ROBNP, N TERMINAL (84891) M onitor - Telemetry (Mobile Cardiac) (CPT-21695) 9 9213 LTD 20-29min (CPT-07633) Roberto Carlos Ramsey MD [id number],W,w ill check echo, PFTs, 6 minute walk test, labs. H er updated medication list for this problem includes: Hydrochlorothiazide 25 Mg Tablet (Hydrochlorothiazide) ..... 1 tablet by mouth once a day Orders: C omplete Echo (CPT-60397) 6 minute walk test (CPT-78718) C OMPREHENSIVE METABOLIC PANEL, W/EGFR (29583) C BC (INCLUDES DIFF/PLT) (6399) L IPID PANEL (7600) H EMOGLOBIN A1c (496) B TYPE NATRIURETIC PEPTIDE (BNP) (42102) P ROBNP, N TERMINAL (56213) M onitor - Telemetry (Mobile Cardiac) (CPT-04689) Roberto Carlos Ramsey MD [id number],W,w ill check echo, PFTs, 6 minute walk test, labs. Staci Diaz HUNG [id number],S,check PFTs Sh maribell Diaz HUNG [id number],S, Stacidana Lopez kamran FERN CUTTER [id number],S,T he patient is using CPAP on a regular basis. The patient has been benefiting from therapy and should continue use. Staci Jeo PERSAUD [id number],W,m od AR per last echo. Will recheck echo Staci Diaz HUNG [id number],W,h as been in contact with [facility] to have weight loss surgery. Staci Diaz NP Electrophysiology:F/ U with pulmonology as scheduled T he following medications were removed from the medication list: Breo Ellipta 100-25 Mcg/dose Blister With Device (Fluticasone furoate-vilanterol) ..... Inhale 1 puff as directed once a day Her updated medication list for this problem includes: Breztri Aerosphere 160-9-4.8 Mcg/actuation Hfa Aerosol Inhaler (Nwgoqheuom-bsxdlryh-xlkybackft) ..... Inhale 2 puffs by mouth twice [...] 3rd dose go to er Staci Green FERN CUTTER Electrophysiology:Will repeat ec ho. Staci Peter PERSAUD Electrophysiology:Check CMP Angelo Green NP Electrophysiology: p er nephro Jason Bruno Electrophysiology:Th e patient is using CPAP on a regular basis. The patient has been benefiting from therapy and should continue use. Jason Salomonty Electrophysiology:Continue medic al therapy Jason Damion Electrophysiology:Ca rotids <50% b/l ICA [facility] Electrophysiology: H er updated medication list [...] by mouth daily Jason Bruno Electrophysiology Jason [place] Electrophysiology:per nephro [place] [facility] Electrophysiology:stable [facility] Electrophysiology:below baseline [facility] Electrophysiology: T race bilateral leg edema. on lasix 20 mg Po J anuary 2023 r ecommend continued use of lasix, i have instructed the patient to take additional dose if needed for swelling [facility] Electrophysiology:check carpotid study [facility] Electrophysiology:ch trinity low dost lung CT given Hx of tobacco abuse. m ild COPD on latest PFTS m inimal diffusion defect on latest PFTs s he states there is minimal benefit from inhalers [facility] Electrophysiology:Th e patient is using CPAP on a regular basis. The patient has been benefiting from therapy and should continue use. [facility] Electrophysiology:wi ll check PFT w ill [...] pain Cedricbruno Daniels Electrophysiology:moderate Neeli ma Nalluri FERN CUTTER Electrophysiology: P FTs: minimal obstructive airways disease and significant decrease in FEV1 when compared to previous study. 6 minute walk test: ambulated 6 minutes. O2 sats 95-96% on room air. 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 Take 1 tablet by mouth once a day Hydralazine 50 Mg Tablet (Hydralazine) ..... Take 1 tablet by mouth three times a day Zuly Nalluri FERN CUTTER Electrophysiology: n ot compliant with cpap Zuly Nalluri FERN CUTTER Electrophysiology: h as been in contact with [facility] to have weight loss surgery. started on ozempic yesterady Zuly Nalluri FERN CUTTER Electrophysiology: T race bilateral leg edema. on lasix 20 mg Po Zuly Nalluri FERN CUTTER Electrophysiology: c arotids: 07/15/22 Mild plaque with less than 50% stenosis of the internal carotid arteries bilaterally. Vertebral flow is antegrade bilaterally. Zuly Nalluri FERN CUTTER Electrophysiology: H er updated medication list for this problem includes: Levothyroxine 88 Mcg Tablet (Levothyroxine) ..... 1 tablet once a day Zuly Nalluri FERN CUTTER Electrophysiology:Will order 2 w [place] tele monitor Zuly Nalluri FERN CUTTER Electrophysiology - 3 month follow up with [...] - needs l eft hearty cath ath [facility] with Dr. Sonny Ramsey MD Telehealth - needs l eft hearty cath ath [facility] with Dr. Dennis: H er updated [...] day Orders: T obacco cessation counseling, 3-10minutes (85624) Roberto Carlos Ramsey MD Electrophysiology- Roberto Carlos garcia MD Electrophysiology-: O rders: E KG (CPT-61810) Roberto Carlos Ramsey MD Electrophysiology:Co ntinues to be SOB and currently does not know if she needs supplemental O2. I will start her on Albuterol inhaler and Breo ellipta inhaler and see how she does. Will check PFTs and 6 minute walk test . O rders: 9 9215 HIGH 40-54min (CPT-14127) C arotid Duplex Bilateral (CPT-17897) F VC - 97884 (18669) F RC - 99956 (53685) D LCO - 41282 (27524) 6 minute walk test (CPT-73779) Her updated medication list for this problem includes: Amlodipine 10 Mg Tablet (Amlodipine) ..... Take 1 tablet by mouth once a day Hydrochlorothiazide 25 Mg Tablet (Hydrochlorothiazide) ..... 1 tablet by mouth once a day Roberto Carlos Ramsey MD Electrophysiology: O rders: 9 9215 HIGH 40-54min (CPT-60230) C arotid Duplex Bilateral (CPT-54770) F VC - 70434 (84466) F RC - 11773 (44990) D LCO - 63400 (65916) 6 minute walk test (CPT-49126) Roberto Carlos Ramsey MD Electrophysiology: P FTs: [...] as needed Orders: 9 9215 HIGH 40-54min (CPT-58373) C arotid Duplex Bilateral (CPT-40822) F VC - 56800 (19932) F RC - 54408 (14220) D LCO - 25076 (78057) 6 minute walk test (CPT-30601) Roberto Carlos Ramsey MD Electrophysiology:Ad vised to cut back salt intake. Will start her on Amlodipine 10 mg and see how she does. Will check carotid duplex as she has mild carotid bruits. BP today: 191/80 P rior BP: 110/70 (03/05/2022) Labs Reviewed: C reat: 2.02 (02/16/2020) C hol: 156 (02/16/2020) HDL: 66 (02/16/2020) Orders: 9 9215 HIGH 40-54min (CPT-62545) C arotid Duplex Bilateral (CPT-86198) F VC - 12245 (93403) F RC - 80342 (32596) D LCO - 40940 (15674) 6 minute walk test (CPT-48874) Her updated medication list for this problem includes: Amlodipine 10 Mg Tablet (Amlodipine) ..... Take 1 tablet by mouth once a day Hydrochlorothiazide 25 Mg Tablet (Hydrochlorothiazide) ..... 1 tablet by mouth once a day Roberto Carlos Ramsey MD Electrophysiology: O rders: 9 9215 HIGH 40-54min (CPT-84481) C arotid Duplex Bilateral (CPT-83390) F VC - 70258 (56559) F RC - 64696 (28641) D LCO - 87680 (59327) 6 minute walk test (CPT-13575) Roberto Carlos Ramsey MD Electrophysiology:Hamm d telemetry [...] NP Electrophysiology: O rders: F VC - 05876 (28372) F RC - 65355 (12422) D LCO - 64826 (94422) 6 minute walk test (CPT-79593) C OMPREHENSIVE METABOLIC PANEL, W/EGFR (41040) C BC (INCLUDES DIFF/PLT) (6399) L IPID PANEL (7600) H EMOGLOBIN A1c (496) B TYPE NATRIURETIC PEPTIDE (BNP) (32354) P ROBNP, N TERMINAL (96310) M onitor - Telemetry (Mobile Cardiac) (CPT-31841) Roberto Carlos Ramsey MD Electrophysiology:[facility] PFTs O rders: F VC - 83591 (75611) F RC - 97169 (17205) D LCO - 21676 (79792) 6 minute walk test (CPT-41489) C OMPREHENSIVE METABOLIC PANEL, W/EGFR (22088) CBC (INCLUDES DIFF/PLT) (6399) L IPID PANEL (7600) H EMOGLOBIN A1c (496) B TYPE NATRIURETIC PEPTIDE (BNP) (71211) P ROBNP, N TERMINAL (23070) M onitor - Telemetry (Mobile Cardiac) (CPT-19886) Roberto Carlos Ramsey MD Electrophysiology: O rders: C omplete Echo (CPT-94486) 6 minute walk test (CPT-21814) C OMPREHENSIVE METABOLIC PANEL, W/EGFR (96610) C BC (INCLUDES DIFF/PLT) (6399) L IPID PANEL (7600) H EMOGLOBIN A1c (496) B TYPE NATRIURETIC PEPTIDE (BNP) (03587) P ROBNP, N TERMINAL (91524) M onitor - Telemetry (Mobile Cardiac) (CPT-24122) 9 9213 LTD 20-29min (CPT-64393) Roberto Carlos Ramsey MD Electrophysiology: O rders: C omplete Echo (CPT-17976) F VC - 58622 (69008) F RC - 50449 (32669) D LCO - 65447 (05839) 6 minute walk test (CPT-68884) C OMPREHENSIVE METABOLIC PANEL, W/EGFR (70787) C BC (INCLUDES DIFF/PLT) (6399) L IPID PANEL (7600) H EMOGLOBIN A1c (496) B TYPE NATRIURETIC PEPTIDE (BNP) (15643) P ROBNP, N TERMINAL (83939) M onitor - Telemetry (Mobile Cardiac) (CPT-90316) 9 9213 LTD 20-29min (CPT-47624) Roberto Carlos Ramsey MD Electrophysiology:wi check echo, PFTs, 6 minute walk test, labs. H er updated medication list for this problem includes: Hydrochlorothiazide 25 Mg Tablet (Hydrochlorothiazide) ..... 1 tablet by mouth once a day Orders: C omplete Echo (CPT-64813) 6 minute walk test (CPT-05703) C OMPREHENSIVE METABOLIC PANEL, W/EGFR (85614) C BC (INCLUDES DIFF/PLT) (6399) L IPID PANEL (7600) H EMOGLOBIN A1c (496) B TYPE NATRIURETIC PEPTIDE (BNP) (69976) P ROBNP, N TERMINAL (77972) M onitor - Telemetry (Mobile Cardiac) (CPT-67023) Roberto Carlos Ramsey MD Electrophysiology:wi ll check echo, PFTs, 6 minute walk test, labs. Staci Diaz FERN CUTTER Electrophysiology:check PFTs She rry Joe FERN CUTTER Electrophysiology Staci Lopezyen weber FERN CUTTER Electrophysiology:Th e patient is using CPAP on a regular basis. The patient has been benefiting from therapy and should continue use. Staci Diaz FERN CUTTER Electrophysiology:mo d AR per last echo. Will recheck echo Staci Diaz FERN CUTTER Electrophysiology:hamm s been in contact with [facility] to have weight loss surgery. Staci Diaz HUNG Electrophysiology Ho spital Follow up 14 : s /p DC PPM explantation 08/14/16 with extensive pocket revision due to bacteremia. Donnelltheresa Al Electrophysiology Ho spital Follow up 14 : O rders: A rosemary Duplex Ultrasound (CPT-59517) The following medications were removed from the medication list: Aspirin 81 Mg Oral Tablet (Aspirin) ..... One tab. daily Penny Melendez Electrophysiology Ho spital Follow up 14 :s/p DC PPM explantation 08/14/16 with extensive pocket revision due to bacteremia. Orders: M onitor - Telemetry (Mobile Cardiac) (CPT-60524) Donnelltheresa Al Electrophysiology Ho spital Follow up 14 : O rders: E KG (CPT-87908) C omplete Echo (CPT-50875) Echo 02/2020 CONCLUSIONS: 1 . There is [...] O rders: C OMPREHENSIVE METABOLIC PANEL, W/EGFR (39027) C BC (INCLUDES DIFF/PLT) (6399) L IPID PANEL (7600) T HYROID PANEL (7020) F VC - 98473 (58152) F RC - 46400 (33069) D LCO - 53441 (97534) C omplete Echo (CPT-45815) S tress Regadenoson (CPT-50790) Juan Greenberg Electrophysiology: P rior BP: 122/60 [...] daily Orders: C OMPREHENSIVE METABOLIC PANEL, W/EGFR (22238) C BC (INCLUDES DIFF/PLT) (6399) L IPID PANEL (7600) T HYROID PANEL (7020) F VC - 06199 (41860) FRC - 26024 (08928) [facility] - 64242 (42134) C omplete Echo (CPT-33142) S tress Regadenoson (CPT-31911) Juan Greenberg Electrophysiology fo llow up: E [...] Tyrell Berumen Electrophysiology - :Orders: E KG (CPT-11310) M obile Cardiac Tele (CPT-88574) S chedule Followup (*) 9 3113 MOD Complex (CPT-28662) Tyrell Berumen Electrophysiology - :Orders: S chedule Followup (*) 9 9214 MOD Complex (CPT-20635) Tyrell Berumen Electrophysiology - :BP today: 142/60 [...] cessation strongly advised. Orders: F VC - 35210 (27624) F RC - 65453 (59308) D LCO - 89145 (60956) S chedule Followup (*) 9 9214 MOD Complex (CPT-44117) Her updated medication list for this problem [...] : O rders: 9 9214 MOD Complex (CPT-64790) S TR - Adenosine (CPT-91411) Roberto Carlos Ramsey MD Electrophysiology Fo llow up : O rders: A rosemary Duplex Ultrasound (AAA) (CPT-01016) Roberto Carlos Ramsey MD Cardiology FOLLOW UP [...] faxed 12/16/16:Exercise and weight loss advised. [facility]ani aVlencia [facility] Follow up faxed 12/16/16:BP today: 153/68 [...] Cardiology Follow up faxed 12/16/16:Orders: S NOMED-CT: [id number] Current Medications Documented (SCT-[id number]) E KG (CPT-38831) M obile Cardiac Tele (CPT-86114) Continues to have some fatigue. [facility] Follow up faxed 12/16/16:On 50mcg Levothyroxine daily. [facility] Follow up faxed 12/16/16:Orders: S NOMED-CT: [id number] Current Medications Documented (SCT-[id number]) E KG (CPT-06836) M obile Cardiac Tele (CPT-97091) Armani Valencia EP Follow up faxed 10/19/16:Comp [...] Valencia EP Follow up faxed 10/19/16 Dionicio craig Annie EP Follow up faxed 1 12/20/15:Pacemaker which was implanted in July 2016 was extracted on August 14 due to bacteremia. She is now doing well and continues to see ID. [facility] Follow-up faxed 08/08 11/22 Roberto Carlos Ramsey MD Cardiology:Orders: A rterial Duplex Bi-Lower EX (CPT-05581) V enous Doppler Bilateral LE - Standing (CPT-38888) Faisal Carlos MD Cardiology:Orders: A rterial Duplex Bi-Lower EX (CPT-76478) V enous Doppler Bilateral LE - Standing (CPT-50404) Faisal Carlos MD Cardiology:There was mild caroti [...] eral Aorta Duplex Ultraso und DLCO - 38157 FRC - 36461 FVC - 00132 Monitor - Telemetry (Mobile Cardiac) Monitor - Telemetry (Mobile Cardiac) PROTHROMBIN TIME WIT H INR LIPID PANEL CBC (INCLUDES DIFF/P LT) BASIC METABOLIC PANE L W/EGFR Stress Regadenoson Complete Echo RPM (remote patient monitoring) Monitor - Telemetry (Mobile Cardiac) 6 minute walk test DLCO - 63042 FRC - 94932 FVC - 62214 Carotid Duplex Bilat eral Monitor - Telemetry (Mobile Cardiac) PROBNP, N TERMINAL B TYPE NATRIURETIC P EPTIDE (BNP) HEMOGLOBIN A1c LIPID PANEL CBC (INCLUDES DIFF/P LT) COMPREHENSIVE METABO LIC PANEL, W/EGFR 6 minute walk test DLCO - 97156 FRC - 74522 FVC - 29079 Complete Echo Aorta Duplex Ultraso und Monitor - Telemetry (Mobile Cardiac) Complete Echo Stress Regadenoson Complete Echo DLCO - 50373 FRC - 87330 FVC - 71083 THYROID PANEL LIPID PANEL CBC (INCLUDES DIFF/P LT) COMPREHENSIVE METABO LIC PANEL, W/EGFR MAGNESIUM DLCO - 48858 FRC - 85561 FVC - 99751 COMPREHENSIVE METABO LIC PANEL, W/EGFR Mobile Cardiac Tele Complete Echo Carotid Duplex Bilat eral DLCO - 91770 FRC - 23674 FVC - 46019 Aorta Duplex Ultraso und (AAA) STR - Adenosine Mobile Cardiac Tele Complete Echo Carotid Duplex Bilat eral Other Test DLCO - 48649 FRC - 42790 FVC - 74649 Mobile Cardiac Tele C-REACTIVE PROTEIN Other SED [...] completed FVC / MVV with bronchodilator - 68399 Roberto Carlos Ramsey MD completed BLOOD COUNT HEMOGLOBIN Roberto Carlos jacob MD completed FRC - [address] MD completed SpO2 w/o 6min walk/titration Roberto Carlos Ramsey MD completed DLCO - [address] MD completed EKG Roberto [...] completed FVC / MVV with bronchodilator - 51209 Roberto Carlos Ramsey MD completed FRC - [address] MD completed SpO2 w/o 6min walk/titration Roberto Carlos Ramsey MD completed SVC - [address] MD completed DLCO - [address] MD completed 6 minute walk test Roberto Carlos garcia MD completed EKG Rboerto Carlos street MD completed EKG Roberto Carlos street MD completed 6 minute walk test Roberto Carlos garcia MD completed Spirometry Roberto Carlos street MD completed FVC / MVV with bronchodilator - 82465 Roberto Carlos Ramsey MD completed FRC - [address] MD completed SpO2 w/o 6min walk/titration Roberto Carlos Ramsey MD completed SVC - [address] MD completed DLCO - [address] MD completed EKG Roberto [...] street MD completed FVC / MVV - 58780 Roberto Carlos arriaga MD completed BLOOD COUNT HEMOGLOBIN Roberto Carlos jacob MD completed FRC - [address] MD completed SpO2 w/o 6min walk/titration Roberto Carlos Ramsey MD completed DLCO - [address] MD completed EKG Roberto Carlos street MD completed Schedule Followup Roberto Carlos arriaga MD in 1 yr completed EKG Roberto Carlos street MD completed FVC / MVV with bronchodilator - 36003 Roberto Carlos Ramsey MD completed BLOOD COUNT HEMOGLOBIN Roberto Carlos jacob MD completed FRC - [address] MD completed SpO2 w/o 6min walk/titration Roberto Carlos Ramsey MD completed DLCO - [address] MD completed Schedule Followup Roberto Carlos arriaga MD in 6 mo completed EKG Roberto Carlos street MD completed FVC / MVV with bronchodilator - 23442 Roberto Carlos Ramsey MD completed BLOOD COUNT HEMOGLOBIN Roberto Carlos jacob MD completed FRC - [address] MD completed SpO2 w/o 6min walk/titration Roberto Carlos Ramsey MD completed DLCO - [address] MD completed EKG Roberto Carlos street MD completed SNOMED-CT: 418661825921067 Current Medications Documented Roberto Carlos Ramsey MD completed Stress EKG Julien Ruth MD complete d Regadenoson, 4 units Roberto Carlos wall MD completed Cardiolite, 2 units Roberto Carlos pierce MD completed SPECT Images Dian Dennis MD complet ed EKG Roberto Carlos street MD completed SNOMED-CT: 929602535731141 Current Medications Documented Roberto Carlos Ramsey MD completed Mobile Cardiac Telem etry - Tech Roberto Carlos Ramsey MD completed Mobile Cardiac Telem etry - Prof Roberto Carlos Ramsey MD completed Schedule Followup Roberto Carlos arriaga MD In 6 months. completed EKG Roberto Carlos street MD completed SNOMED-CT: 918272336534534 Current Medications Documented Roberto Carlos Ramsey MD completed FVC / MVV with bronchodilator - 07444 Roberto Carlos Ramsey MD completed FRC - [address] MD completed SpO2 - [address] MD completed DLCO - [address] MD completed Mobile Cardiac Telem etry - Tech Kiarra Smith completed Mobile Cardiac Telem etry - Prof Kiarra Smith completed EKG Roberto Carlos street MD completed SNOMED-CT: 732433914731532 Current Medications Documented Roberto Carlos Ramsey MD completed VIOLETA Morales Saulius Suzanna arriaga MD completed EKG Roberto Carlos street MD completed SNOMED-CT: 448055995901601 Current Medications Documented ulius Braulio KING completed EKG ulius Pa street MD completed SNOMED-CT: 728407736716104 Current Medications Documented ulius Braulio KING completed EKG ulius Pa street MD completed SNOMED-CT: 926510635097307 Current Medications Documented ulius Braulio KING completed SNOMED-CT: 040886662518504 Current Medications Documented Faisal Carlos MD completed SNOMED-CT: 372150570225731 Current Medications Documented Faisal Carlos MD completed SNOMED-CT: 146823587 Smoking Cessation Counseling Faisal Carlos MD completed Stress EKG Faisal Carlos MD completed Regadenoson, 4 units Faisal Carlos MD completed Cardiolite, 2 units Faisal Carlos MD c ompleted SPECT Images Lois Giraldo MD compl eted Mobile Cardiac Telem etry - Tech Feli Hughes completed Mobile Cardiac Telem etry - Prof Feli Hughes completed SNOMED-CT: 143657790 Smoking Cessation Counseling Faisal Carlos MD completed EKG Faisal Carlos MD completed SNOMED-CT: 371812891235674 Current Medications Documented Faisal Carlos MD completed
--- OUTSIDE RECORDS SUMMARY | 2025-02-13 14:53 | XMS_ITS | Encounter Summary ---
Author Organization [facility] Address [address] [place] [address] Phone Care Team Providers Care Cloth Cutting Inspector Name Role Phone Jn Velásquez MD Primary Care Provider [phone] Waqas De Leon MD Unavailable [phone] Waqas De Leon MD Unavailable [phone] Cortney Corona MD Unavailable [phone] Stephanie Morrissey MD Primary Care Provider [phone] Jn Velásquez MD Primary Care Provider [phone] Miscellaneous, Not In File Unavailable Unava Daniel Courtney MD Unavailable [phone] James Cifuentes MD Unavailable [phone] Encounter Details Date Type Department Care Team [...] often do you attend chur ch or advent services? Never 05/04/2022 Do you belong to any clubs o r organizations such as mormonism groups, unions, fraternal or athletic groups, or [...] place to sleep or slept in a assisted (including now)? 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
--- OUTSIDE RECORDS SUMMARY | 2025-02-13 14:53 | XMS_ITS | Patient Health Record ---
Author Organization [facility] [employer] Address [address] [place] [address] Care Team Providers Care Contour Path Tape Mill Operator Name Role Phone Sandie Madrid Unavailable [phone] Migration, Provider Unavailable Unavailable Allergies Allergen (clinical drug ingredient) Drug/Non Drug Allergy documented on EMR Reaction Allergy Type Onset Date Status lisinopril Lisinopril Unknown Drug Allergy 11/17/2023 Acti ve Reason For Referral No Information Medications Medication SIG (Take, Route, Frequency, Duration) Notes Start Date End Date Status Trintellix 20 MG 1 tablet Oral Once a day for 90 days Active Unithroid 75 mcg Oral 03/19/2024 Un known amLODIPine Besylate 5 MG Oral 03/19/2024 Unknown Atorvastatin Calcium 40 MG Oral 03/19/2024 Unknown Mounjaro 10 MG/0.5ML Subcutaneous *Reorder fr [employer] for eRx and Interaction Alerts* 03/19/2024 Unknown amLODIPine Besylate 10 MG Oral 03/19/2024 Unknown Breo Ellipta 100-25 MCG/INH Inhalation 03/19/2024 Unknown Losartan Potassium 50 MG Oral 03/19/2024 Unknown Farxiga 5 MG Oral 03/19/2024 Unknow n Azelastine HCl 0.05 % Ophthalmic 03/19/2024 Unknown Furosemide 20 MG Oral 03/19/2024 Un known MOUNJARO 12.5 MG/0.5 ML SUBCUTANEOUS PEN INJECTOR *Reorder from [employer] for eRx and Interaction Alerts* 03/19/2024 Unknown EUTHYROX 125 MCG TABLET *Reorder from [facility] for eRx and Interaction Alerts* 03/19/2024 Unknown DAPAGLIFLOZIN PROPANEDIOL 10 MG TABLET *Reorder from [facility] for eRx and Interaction Alerts* 03/19/2024 Unknown oxyBUTYnin Chloride ER 10 MG Oral 03/19/2024 Unknown Unithroid 88 mcg Oral 03/19/2024 Un known Korlym 300 mg Oral 03/19/2024 Unkno wn Farxiga 10 MG Oral 03/19/2024 Unkno wn PREGABALIN 200 MG CAPSULE *Reord er from [facility] for eRx and Interaction Alerts* 03/19/2024 Unknown dexAMETHasone 1 MG Oral 03/19/2024 Unknown Albuterol Sulfate (2.5 MG/3ML) 0.083% Inhalation 03/19/2024 Unknown Magnesium Oxide (Elemental) 400 MG Oral *Reorder from [facility] for eRx and Interaction Alerts* 03/19/2024 Unknown ProAir HFA 108 (90 Base) MCG/ACT Inhalation 03/19/2024 Unknown Chlorthalidone 25 MG Oral 03/19/2024 Unknown Azithromycin 250 MG Oral 03/19/2024 Unknown Isosorbide Mononitrate ER 30 MG Oral 03/19/2024 Unknown Rosuvastatin Calcium 10 MG Oral 03/19/2024 Unknown KERENDIA 10 MG TABLET *Reorder f [facility] for eRx and Interaction Alerts* 03/19/2024 Unknown INSULIN SYRINGE/U-100/1ML/31G X 5/1 6 31G X 5/16 1 ML MISC *Reorder from [facility] for eRx and Interaction Alerts* 03/19/2024 Unknown rOPINIRole HCl 0.5 MG Oral 03/19/2024 Unknown Ergocalciferol 1.25 MG (90188 UT) Oral 03/19/2024 Unknown Atenolol 25 MG Oral 03/19/2024 Unkn own Allopurinol 100 MG Oral 03/19/2024 Unknown hydroCHLOROthiazide 25 MG Oral 03/19/2024 Unknown Nitroglycerin 0.4 MG Sublingual 03/19/2024 Unknown Breztri Aerosphere 160-9-4.8 MCG/ACT Inhalation *Reorder from [facility] for eRx and Interaction Alerts* 03/19/2024 Unknown hydrALAZINE HCl 50 MG Oral 03/19/2024 Unknown Immunizations Vaccine Route [...] Severe recurrent major depression without psychotic features (34969414) Major depressive disorder, 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 Problem Generalized anxiety disorder (41120856) Generalized anxiety disorder (F41.1) Active confirmed Problem Primary insomnia (8333191) Primary insomnia (F51.01) Active confirmed Vital Signs Heart Rate 96 /min 01/21/2025 Height-cm 162.56 cm 01/21/2025 Blood pressure diastolic 65 mm Hg 01/21/2025 Weight-kg 108.86 kg 01/21/2025 Height 64.00 in 01/21/2025 Blood pressure systolic 159 mm Hg 01/21/2025 Weight 240 lbs 01/21/2025 BMI 41.19 kg/m2 01/21/2025 Encounters Encounter Location Date Provider Diagnosis [facility] [address] [place] [address] 03/19/2024 Sandie Madrid Primary insomnia F51.01 ; Major depressive disorder, recurrent severe without psychotic features F33.2 and Generalized anxiety disorder F41.1 [place] [facility] [address] [place] [address] 07/24/2024 Sandie Madrid Major depressive disorder, recurrent severe without psychotic features F33.2 ; Generalized anxiety disorder F41.1 and Primary insomnia F51.01 [facility] [address] [place] [address] 01/21/2025 Sandie Madrid Benign essential HTN I10 ; Encounter for screening for cardiovascular disorders Z13.6 ; Dietary counseling and surveillance Z71.3 ; Encounter for screening for depression Z13.31 ; Major depressive disorder, recurrent severe without psychotic features F33.2 ; Generalized anxiety disorder F41.1 and Primary insomnia F51.[address] [address] 03/24/2024 Provider Migration [address] [facility] [address] [place] [address] 03/25/2024 Provider Migration Assessments Encounter Date Diagnosis [...] 07/24/2024 Generalized anxiety disorder (ICD-10 - F41.1) 01/21/2025 Benign essential HTN (ICD-10 - I10) 03/19/2024 Major depressive disorder, recurrent severe without psychotic features (ICD-10 - F33.2) 03/19/2024 Generalized anxiety disorder (ICD-10 - F41.1) 03/19/2024 Primary insomnia (ICD-10 - F51.01) 07/24/2024 Primary insomnia (ICD-10 - F51.01) 01/21/2025 Encounter for screening for cardiovascular disorders [...] F41.1) 01/21/2025 Primary insomnia (ICD-10 - F51.01) 07/24/2024 Other Stable, continue Trintellix 20mg daily for mood, anxiety. Patient educated on all medications including potential benefits, side effects, risks. Educated on proper dosing schedule and importance of compliance. 01/21/2025 Other Overall stable, declines need for [...] effects of psychotropic medications. -Crisis prevention hotline 428. Plan Of Treatment Next Appt Details Provider Name:Sandie Madrid, 07/22/2025 01:00:00 PM, [address], [facility] [address], [place], [address], Insurance Providers Payer Name Payer Address Payer Phone Subscriber Number Group Number Insured Name Patient Relationship to Insured Coverage Start Date Coverage End Date [facility] Medicare Replacement/ Advantage - Ppo [address] [address] [place] [address] [id number] JESU HARLEY Self - patient is the insured Medicaid-[place] Medicaid [address] [address] [place] [address] [id number] JESU HARLEY Self - patient is the [...] Surgical History Surgery Date(Month/Year) Removal of gallbladder (46571) Cosmetic surgery 11/07/1999
--- OUTSIDE RECORDS SUMMARY | 2025-02-13 14:53 | XMS_ITS | Encounter Summary ---
Author Organization [facility] Address [address] [place] [address] Phone Care Team Providers Care Auto Electrician Name Role Phone Jn Velásquez MD Primary Care Provider [phone] Waqas De Leon MD Unavailable [phone] Waqas De Leon MD Unavailable [phone] Cortney Corona MD Unavailable [phone] Stephanie Morrissey MD Primary Care Provider [phone] Jn Velásquez MD Primary Care Provider [phone] Miscellaneous, Not In File Unavailable Unava ilDaniel Mckeon MD Unavailable [phone] James Cifuentes MD Unavailable [phone] Encounter Details Date Type Department Care Team [...] on file 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
--- OUTSIDE RECORDS SUMMARY | 2025-02-13 14:53 | XMS_ITS | Referral Summary ---
Author Organization [facility] Address [address] [place] [address] Care Team Providers Care Repairer Evaporator Name Role Phone Waqas De Leon MD Unavailable [phone] Waqas De Leon MD Unavailable [phone] Cortney Corona MD Unavailable Jn Velásquez MD Primary Care Provider [phone] Miscellaneous, Not In File Unavailable Unava ilDaniel Mckeon MD Unavailable [phone] James Cifuentes MD Unavailable [phone] Encounters Date Type Department Care Team Description 01/18/2025 Telephone [facility] Rheumatology [address] [facility] Advanced Medicine 5th [place] [address] [place] [address] Zarina Carroll MD Discuss Test Results 01/14/2025 Telephone [facility] Endocrinology Metabolism and Lipid [address] [facility] Medicine 5th [place] [address] [place] [address] Nahed Santoro RMA Appointment (Referral from [facility]) 12/12/2024 Orders Only [facility] Cardiology [address] [place] [address] Herminia Smith NP from Last [...] Patient need to follow up with her swing manager Dr. Fitch at [facility] on 06/28 Acute pulmonary edema 05/18/20222021 Assessment [...] on room air- transition to torsemide per swing manager, add low dose potassium supplement. Continue to [...] often do you attend chur ch or restorationism services? Never 05/31/2023 Do you belong to any clubs o r organizations such as christianity groups, unions, fraternal or athletic groups, or [...] place to sleep or slept in a longterm (including now)? No 05/31/2023 Personal Safety Answer Date Recorded Have you ever been in or are you currently in a harmful physical or emotional relationship or is someone making you feel afraid or unsafe? Denies 05/30/2023 Comments Unknown Sex and Gender Information Value Date Recorded Sex Assigned at Not on file Legal Sex Female 7:23 PM AUTOMATIC DRILL OPERATOR Gender Identity Not on file Sexual Orientation Not on file Last Filed Vital Signs Vital Sign Reading Time Taken Comments Blood Pressure 123/61 10/10/2024 1:09 PM AUTOMATIC DRILL OPERATOR Pulse 70 10/10/2024 1:09 PM AUTOMATIC DRILL OPERATOR Temperature 36.7 C (98 F) 10/10/2024 1:09 PM AUTOMATIC DRILL OPERATOR Respiratory Rate 20 06/01/2023 11:31 AM CDT Oxygen Saturation 88% 08/10/2024 10:08 AM CDT Inhaled Oxygen Concentration - - Weight 106 kg (233 lb 9.6 oz) 10/10/2024 1:09 PM AUTOMATIC DRILL OPERATOR Height 156.2 cm (5' 1.5 ) 10/10/2024 1:09 PM AUTOMATIC DRILL OPERATOR Body Mass Index 43.42 10/10/2024 1:09 PM AUTOMATIC DRILL OPERATOR Plan of Treatment Not on file Procedures Procedure Name Priority Date/Time Associated Diagnosis Comments CARDIOLOGY DOCUMENT SCAN Routine 12/07/2024 4:14 PM AUTOMATIC DRILL OPERATOR HEPATITIS PANEL, ACUTE Routine 08/10/2024 12:01 PM CDT Interstitial pulmonary disease (HCC) from Last 3 Months or Most Recently Relevant to Health Maintenance Results * Cardiology Document Scan (12/07/2024 4:14 PM AUTOMATIC DRILL OPERATOR) Anatomical Region Laterality Modality Other Herminia Smith NP CV CARDIAC SERVICES PROCEDUR ES Final Result * Hepatitis panel, acute Blood (08/10/2024 12:01 PM CDT) Hep A IgM Nonreactive Nonreactive Hep B core IgM Nonreactive Nonreactive [facility] Hep C Ab Nonreactive Nonreactive [facility] Comment:Antibodies to HCV no t detected. Does NOT exclude the possibility of recent exposure to HCV. Current interpretive data was last revised on 22 HepBsAg Nonreactive Nonreactive [facility] Blood 08/10/2024 12:0 1 PM CDT 08/10/2024 2:23 PM CDT us Zarina Carroll MD LAB MICROBIOLOGY - GENERAL ORDER TATO Final Result [facility] Department [place] [address] from Last 3 Months or Most Recently Relevant to Health Maintenance Insurance [facility] Address: [address] [address] [place] [address] [employer] [facility] Address: [address] [address] [place] [address] [employer] Advance Directives For more information, please contact: [phone] * Full Code (Latest Code Status on File) Date Activated Date Inactivated Comments 05/30/2023 2:42 AM 06/01/2023 6:25 PM * Full Code Date Activated Date Inactivated Comments 05/30/2023 12:31 AM 05/30/2023 2:42 AM * Full Code Date Activated Date Inactivated Comments 05/05/2022 2:33 PM 05/14/2022 7:09 PM Care Teams Repairer Evaporator Relationship Specialty Start Date End Date Jn Velásquez MD PCP - General Family Medicine 05/29/23 Waaqs De Leon MD Internal Medicine 11/20/21 Waqas De Leon MD Internal Medicine 06/06/19 Cortney Corona MD Referring Physician Surgery 05/14/22 Miscellaneous, Not In File 05/31/23 Daniel Go MD [address] [place] [address] Consulting Physician Interventional Cardiology 05/31/23 [place] [address] [facility] [address] [place] [address] Consulting Physician Pulmonary Disease 05/31/23
[2025-02-13 16:14] LABS: Alveolar/Arterial O2 Gradient 84.3 mmHg; Base Excess ABG -0.3 mEq/l (+/-2.0); Fractional Inspired Oxygen 28 %; HCO3 ABG 24.9 mEq/l (22.0-26.0); Oxygen Content ABG 18.8 %vol (16.0-22.0); Oxygen Saturation ABG 92.5 % (95.0-100.0); Oxyhemoglobin 91.6 % THb (90.0-100.0); PCO2 ABG 42.6 mmHg (35.0-45.0); PO2 ABG 65.1 mmHg (80.0-100.0); PO2 FiO2 Ratio Arterial Blood 2.33 %; Total Hemoglobin 14.6 g/dL (12.0-18.0); pH ABG 7.384 (7.350-7.450)
[2025-02-13 16:15] LABS: Device NASAL CANNULA; Modified Allen's Test Pass; Site Drawn RIGHT RADIAL
[2025-02-13 16:29] LABS: Add Urine Microscopic? YES; Appearance Urine Clear (Clear); Bacteria Urine None Seen /hpf; Bilirubin Urine Negative (Negative); Blood Urine Negative (Negative); Color Urine Yellow (Yellow); Glucose Urine UA 3+ mg/dL (Negative); Ketones Urine Negative (Negative); Leukocyte Esterase Ur Negative LEU/UL (Negative); Nitrate Urine Negative (Negative); Non Pathogenic Casts 0-2; Protein Urine Trace mg/dL (Negative); RBC Urine 0-2 /hpf (0-2); Specific Grav Ur 1.024 (1.001-1.035); Squamous Epithelial Cell Urine None Seen /hpf (Few); Urobilinogen Urine 0.2 mg/dL (<2.0); WBC Urine 0-5 /hpf (0-3)
--- NOTE | 2025-02-13 18:39 | ADMGEN ---
This patient, Jacy Mills, was admitted to 3 [facility] Surg Room 310-01. Patient/family oriented to hospital policies and general routines including ID bracelet, bed and alarms, visiting hours, pain management, procedures, bathroom and other care routines, personal items, smoking policy, room service/diet, and visiting hours. Information on how to activate the Rapid Response Team has been discussed. Patient/Family are encouraged to report perceived risks to care and to ask questions if they do not understand what they are told or what they should do.
--- NOTE | 2025-02-13 18:40 | P.HP_ITS ---
H&P: HPI History of Present Illness Date/Time: 02/13/25 18:40 Chief Complaint: Shortness of breath. Narrative: This is a 79-year-old female former smoker with chronic obstructive pulmonary disease, chronic respiratory failure on p.r.n. oxygen during the day and at nighttime, aortic valve stenosis, diastolic dysfunction, hypertension, hyperlipidemia, untreated obstructive sleep apnea, type 2 diabetes mellitus, chronic kidney disease, and other comorbidities who presented to the emergency department via private vehicle with complaints of shortness of breath. At baseline she is limited in the activities that she can do secondary to her work of breathing. She avoids going to the store but when she does go she has to use the electric scooter. She cannot carry her own groceries. She can use the microwave but otherwise does not cook and she is not able to do cleaning around the home. The last several days she has developed congestion, a dry cough, and increasing dyspnea and wheezing on lesser and lesser exertion. She has some swelling in her legs as well but states they have gone down recently. She has not been on any steroids or antibiotics recently. She denies sick contacts. She also denies fever, chills, sweats, chest pain, pleuritic pain, palpitations, nausea, vomiting, and calf pain. In the ED: Vital signs were stable on arrival. Labs were significant for D-dimer of 1.23, BUN 18, creatinine 1.56, proBNP 134, troponin 0.012. Chest CTA showed no pulmonary embolism though sensitivity was decreased by motion artifact, right middle lobe collapse with additional mild atelectasis, tracheobronchial malacia, enlargement of central pulmonary arteries, a 6 mm soft tissue density exophytic lesion at the right kidney. She received a nebulizer treatment, methylprednisolone, and magnesium sulfate and she is being admitted in this setting for treatment of COPD exacerbation. Review of Systems Review of Systems: 12 systems were reviewed and are negativ e except for as per HPI. [facility] Past Medical History Medical History (Updated 02/13/25 @ 23:15 by Meme Haque PA-C) Diastolic dysfunction Aortic valve stenosis Obstructive sleep apnea Stage 3b chronic kidney disease Gastroesophageal reflux disease Hyperlipidemia Hypertension Thyroid cancer Primary insomnia Anemia Carpal tunnel syndrome Kidney stones Anxiety Depression Hypothyroidism Arthritis Hiatal hernia Asthma Chronic obstructive pulmonary disease Surgical History Surgical History (Updated 02/13/25 @ 23:10 by Meme Haque PA-C) History of lumbosacral spine surgery History of elbow surgery bilateral cubital tunnel release History of hysterectomy History of cholecystectomy History of permanent cardiac pacemaker placement History of cataract extraction History of total thyroidectomy History of carpal tunnel release Family History Family History Father Family history of heart disease in male family member before age 55 Family history of malignant neoplasm of brain Hypertension Pulmonary disease Mother Family history of heart disease in male family member before age 55 Family history of diabetes mellitus in first degree relative Social History Social History (Updated 02/13/25 @ 23:11 by Meme Haque PA-C) Social History: Surrogate medical decision maker: Neena Hazel, granddaughter. Code status: Full code. Smoking packs per day: 1 Smoking cigarettes per day: 20.0 Years smoked: 50 Smoking pack-years: 50.00 Smoking status: Former smoker Tobacco type: cigarettes Alcohol intake: never Substance use: never Substance use type: does not use Do You Feel Safe in your Home?: Yes Lack of Transportation: No Lack of Food: Never True Current Housing: I Have Housing Concerned About Future Housing: No Difficulty Paying Gas/Electric Bills: No Difficulty Paying for Meds: No Currently Unemployed: No Education: Decline to Answer Difficulty w/ Childcare or Family Care: No Living arrangements: alone Additional living arrangements comments: The patient lives in her own home in [place]. 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: No Meds Home Medications and Allergies Home Medications ?Medication ?Instructions ?Recorded ?Confirmed ?Type amlodipine 5 mg tablet 5 mg PO DAILY 09/21/22 02/13/25 History oxybutynin chloride 10 mg 10 mg PO HS 09/21/22 02/13/25 History tablet,extended release 24 hr magnesium oxide 400 mg PO BID 09/15/23 02/13/25 History pregabalin 200 mg capsule 200 mg PO BID 09/15/23 02/13/25 History rosuvastatin 10 mg tablet 10 mg PO HS 09/15/23 02/13/25 History vortioxetine 20 mg tablet 20 mg PO DAILY 09/15/23 02/13/25 History (Trintellix) furosemide 20 mg tablet 20 mg PO DAILY 12/07/23 02/13/25 History albuterol sulfate 90 mcg/actuation 2 puff inhalation QID PRN 07/11/24 02/13/25 Rx aerosol inhaler shortness of breath or wheezing #8.5 grams minoxidil 2.5 mg tablet 2.5 mg PO DAILY 12/04/24 02/13/25 History albuterol sulfate 2.5 mg/3 mL 2.5 mg (3 mL) inhalation Q4-6H PRN 12/30/24 02/13/25 Rx (0.083 %) solution for nebulization shortness of breath or wheezing #180 mL budesonide 0.5 mg/2 mL suspension 0.5 mg (2 mL) inhalation DAILY #60 01/16/25 02/13/25 Rx for nebulization mL ipratropium 0.5 mg-albuterol 3 mg 3 ml inhalation QID #180 mL 01/16/25 02/13/25 Rx (2.5 mg base)/3 mL nebulization soln dapagliflozin propanediol 10 mg 10 mg PO DAILY #30 tabs 01/21/25 02/13/25 Rx tablet (Farxiga) tirzepatide 5 mg/0.5 mL 5 mg (0.5 mL) subcut WEEKLY #2 mL 01/29/25 02/13/25 Rx subcutaneous pen injector (Hector) hydrocodone 10 mg-acetaminophen 1 tablet PO Q6H PRN pain 02/13/25 02/13/25 History 325 mg tablet levothyroxine 75 mcg tablet 75 mcg PO 0100 02/13/25 02/13/25 History (Unithroid) Allergies Allergy/AdvReac Type Severity Reaction Status Date / Time NILTON Inhibitors Allergy Unknown Angioedema Verified 02/13/25 18:53 lisinopril Allergy Dyspnea / Verified 02/13/25 18:53 SOB Vital Signs Vital Signs - 24 hr 02/13/25 13:19 02/13/25 13:33 02/13/25 13:35 Temperature 98.2 F Pulse Rate 74 74 Respiratory Rate 15 16 Blood Pressure 157/90 H Pulse Oximetry 91 90 95 Oxygen Delivery Room Air Nasal Cannula Oxygen Flow Rate 2 02/13/25 13:44 02/13/25 13:44 02/13/25 13:45 Temperature Pulse Rate 72 73 Respiratory Rate 20 17 Blood Pressure Pulse Oximetry 92 95 Oxygen Delivery Nasal Cannula Oxygen Flow Rate 2 02/13/25 13:46 02/13/25 13:50 02/13/25 14:00 Temperature Pulse Rate 72 70 Respiratory Rate 16 14 Blood Pressure 153/62 H Pulse Oximetry 95 95 99 Oxygen Delivery Nasal Cannula Oxygen Flow Rate 2 02/13/25 14:01 02/13/25 14:25 02/13/25 14:30 Temperature Pulse Rate 69 73 75 Respiratory Rate 14 15 12 Blood Pressure 148/59 H Pulse Oximetry 98 99 100 Oxygen Delivery Oxygen Flow Rate 02/13/25 14:31 02/13/25 14:32 02/13/25 14:47 Temperature Pulse Rate 90 78 77 Respiratory Rate 17 20 14 Blood Pressure 118/88 Pulse Oximetry 97 95 Oxygen Delivery Oxygen Flow Rate 02/13/25 15:14 02/13/25 15:15 02/13/25 16:57 Temperature Pulse Rate 78 77 Respiratory Rate 15 17 Blood Pressure Pulse Oximetry 98 98 94 Oxygen Delivery Oxygen Flow Rate 02/13/25 16:59 02/13/25 17:01 02/13/25 17:59 Temperature Pulse Rate 84 Respiratory Rate 14 Blood Pressure 127/64 144/58 H 135/94 H Pulse Oximetry 93 95 93 Oxygen Delivery Oxygen Flow Rate Exam Narrative: General: Mildly ill-appearing female sitting at the side of the bed. Weight: 109.9 kg. BMI: 44.3. HEENT: PERRL, EOMI. Sclera anicteric. Oral mucosa moist. Neck: Supple. Exam limited due to neck circumference. No obvious JVD or lymphadenopathy. Respiratory: Mildly tachypneic with conversational dyspnea. She is speaking in 4 to 5 word sentences. She does not appear in significant distress. Lung sounds are significantly diminished throughout with diffuse end-expiratory wheezing. Cardiovascular: Regular rate and rhythm with S1-S2. 3/6 systolic murmur heard at the upper sternal border. Gastrointestinal: Abdomen is soft, obese, nontender, and nondistended with positive bowel sounds. Skin: Warm and dry. Extremities: No cyanosis or clubbing. Trace heidy ankle and pretibial edema bilaterally. No palpable knots or cords. Neurological: Alert. Cranial nerves 2-12 are grossly intact. Delete No gross focal deficits to casual conversation. Psychiatric: Pleasant and cooperative with normal mood and affect. Judgment and insight intact. H&P: Results Labs Labs: Short CBC 02/13/25 Range/Units 13:37 WBC 5.9 (4.5-10.0) K/mm3 Hgb 13.3 (12.0-15.0) g/dL Hct 43.6 (37.0-47.0) % Plt Count 184 (150-375) k/mm3 BMP 02/13/25 13:37 Sodium 143 Potassium 4.0 Chloride 107 Carbon Dioxide 28 BUN 18 H D Creatinine 1.56 H Glucose 102 Calcium 9.5 Cardiac Enzymes 02/13/25 Range/Units 13:37 Troponin I 0.012 (0.000-0.034) ng/mL Liver Function 02/13/25 Range/Units 13:37 Total Bilirubin 0.8 (0.2-1.3) mg/dL AST 30 (14-36) U/L ALT 22 (6-35) U/L Alkaline Phosphatase 73 (38-126) U/L Albumin 4.2 (3.5-5.1) g/dL Urine 02/13/25 Range/Units 16:16 Urine Color Yellow (Yellow) Urine Appearance Clear (Clear) Urine pH 7.0 (5.0-9.0) Ur Specific [place] 1.024 (1.001-1.035) Urine Protein Trace (Negative) mg/dL Urine Glucose (UA) 3+ H (Negative) mg/dL Impressions Chest X-Ray 02/13/25 14:19 IMPRESSION: 1. Mild vascular congestion. Superimposed infection cannot be excluded. Clinical correlation is recommended to rule out superimposed pneumonia. Short interval chest radiograph recommended after appropriate clinical therapy. Chest CTA 02/13/25 14:52 IMPRESSION: 1. No pulmonary embolism. Sensitivity decreased in the basilar segmental and more diffusely through the subsegmental pulmonary arteries due to moderate to severe respiratory motion artifact. 2. Right middle lobe collapse with additional mild atelectasis scattered throughout the remainder of the lungs with subsegmental regions of more lucent air trapping the upper lungs consistent with small airway disease.. 3. Tracheobronchial malacia. 4. Enlargement of the central pulmonary arteries consistent with pulmonary arterial hypertension. 4. 6 mm soft tissue density exophytic lesion at the right kidney which could represent a complex proteinaceous/hemorrhagic cyst or renal cell carcinoma. Recommend follow-up pre and postcontrast MRI or CT when patient is able to breath-hold. Assessment and Plan Assessment and plan (1) COPD exacerbation: Code(s): J44.1 - Chronic obstructive pulmonary disease with (acute) exacerbation Status: Acute (2) Grade I diastolic dysfunction: Code(s): I51.89 - Other ill-defined heart diseases Status: Acute (3) Lesion of right [place] kidney: Code(s): N28.9 - Disorder of kidney and ureter, unspecified Status: Acute (4) Hypertension: Code(s): I10 - Essential (primary) hypertension Status: Acute (5) Hypothyroidism: Code(s): E03.9 - Hypothyroidism, unspecified Status: Acute (6) Stage 3b chronic kidney disease: Code(s): N18.32 - Chronic kidney disease, stage 3b Status: Chronic (7) Pre-diabetes: Code(s): R73.03 - Prediabetes Status: Resolved Plan The patient presented to the emergency department for evaluation of increasing shortness of breath, congestion, and dry cough for 3 days as detailed in HPI. Labs, imaging, EKG, and all reports were personally reviewed. Clinically she has a COPD exacerbation and she has been started on scheduled bronchodilators, methylprednisolone, and antibiotics. Rule out COVID, influenza, and RSV which are probably less likely. Imaging shows right middle lobe collapse and she has been started on Mucinex and PAP therapy to help mobilize secretions. Encourage incentive spirometry. May benefit from Mucomyst or Pulmozyme though that apparently needs to be ordered by a judo instructor. She has mild lower extremity edema and possible mild edema on imaging and 1 dose of IV furosemide has been ordered. A lesion of the right kidney was noted on CT and this will need outpatient follow-up. Blood pressures have been reasonable and will be monitored. Continue levothyroxine and check TSH. Renal function is stable on review of previous labs. Initiate sliding scale insulin, Accu-Cheks, and hypoglycemic protocol. Her home medications will be reviewed and resumed as appropriate. Findings and treatment plan were discussed with the patient. Questions were solicited and answered to satisfaction. The patient's medical management will be taken over by the hospitalist team in a.m. Quality VTE Prophylaxis VTE prophylaxis: pharmacologic ordered Hospitalist MIPS Advance Care Plan I have confirmed that the patient's Advanced Care Plan is present, code status is documented, or surrogate decision maker is listed in patient medical record.: Yes Medication Reconciliation I have utilized all available resources to obtain, update and review the patients current medications (includes all prescriptions, OTC, herbals, cannabis, and nutritional supplements).: Yes
[2025-02-13] MEDS: SODIUM CHLORIDE 0.9% IV 1,000 ML 125 ML IV CONT (22:00)
[2025-02-14] MEDS: methylPREDNISolone SOD SUCC 125 MG VIAL 60 MG IV PUSH ×2 (00:03→06:04)
[2025-02-14] MEDS: oxyBUTYnin CHLORIDE XL 5 MG TAB.ER.24 10 MG PO (00:03)
[2025-02-14] MEDS: guaiFENesin 12 HR 600 MG TABCR 1200 MG PO ×2 (00:03→09:41)
[2025-02-14] MEDS: FUROSEMIDE INJ 40 MG/4 ML VIAL IV PUSH (00:14)
[2025-02-14 00:21] LABS: Hemoglobin A1C 5.8 % (<5.7)
[2025-02-14 00:55] LABS: Influenza A QL RT-PCR Negative (Negative); Influenza B QL RT-PCR Negative (Negative); SARS-CoV-2 RNA PCR Negative (Negative)
[2025-02-14 02:16] VITALS: PULSE 80; RESP 20
[2025-02-14] MEDS: IPRATROPIUM 0.5 MG/ALBUTEROL SULFATE 2.5 MG AMPUL.NEB 3 ML INHALATION (02:16)
[2025-02-14 02:26] VITALS: PULSE 82; RESP 20
[2025-02-14 06:00] VITALS: BP 135/57; PULSE 83; RESP 16; TEMP 36.6; O2SAT 92
[2025-02-14] MEDS: LEVOTHYROXINE SODIUM 75 MCG TABLET PO (06:03)
[2025-02-14 06:30] LABS: Anion Gap 13 mmol/L (4-12); Blood Urea Nitrogen 24 mg/dL (7-17); Calcium 9.1 mg/dL (8.4-10.2); Carbon Dioxide 28 mmol/L (22-30); Chloride 102 mmol/L (98-107); Estimated CRCL calculation 26 ml/min; Estimated Glomerular Filt Rate 25; Glucose 168 mg/dL (65-110); Magnesium 2.2 mg/dL (1.6-2.3); Potassium 3.8 mmol/L (3.4-5.0); Sodium 143 mmol/L (137-145)
[2025-02-14 07:39] LABS: Thyroid Stimulating Hormone Reflex 0.248 uIU/mL (0.465-4.68)
[2025-02-14 09:37] LABS: Glucose Point of Care 188 mg/dl (65-105)
[2025-02-14] MEDS: ENOXAPARIN 40 MG/0.4 ML SYRINGE SUB-Q (09:40)
[2025-02-14] MEDS: minoxidiL 2.5 MG TABLET PO (09:40)
[2025-02-14] MEDS: amLODIPine BESYLATE 5 MG TABLET PO (09:40)
[2025-02-14] MEDS: PREGABALIN (*CRX) 50 MG CAPSULE 200 MG PO (09:40)
[2025-02-14] MEDS: MAGNESIUM OXIDE 400 MG TABLET PO (09:40)
[2025-02-14] MEDS: ACETAMINOPHEN 325 MG TABLET 650 MG PO (09:41)
[2025-02-14] MEDS: EMPAGLIFLOZIN 10 MG TABLET BY MOUTH (09:41)
[2025-02-14] MEDS: FUROSEMIDE 20 MG TABLET PO (09:41)
[2025-02-14 11:32] LABS: Glucose Point of Care 190 mg/dl (65-105)
[2025-02-14 12:36] LABS: Free T4 Free Thyroxine Reflex 1.21 ng/dL (0.78-2.19)
[2025-02-14 14:00] VITALS: BP 149/67; PULSE 84; RESP 22; TEMP 36.2; O2SAT 94
--- NOTE | 2025-02-14 14:11 | P.DS_ITS ---
DS: Admitting Diagnosis Discharge Date 02/14/2025 Admitting Diagnosis COPD exacerbation DS: Discharge Diagnosis Discharge Diagnosis (1) COPD exacerbation: Code(s): J44.1 - Chronic obstructive pulmonary disease with (acute) exacerbation Status: Acute (2) Grade I diastolic dysfunction: Code(s): I51.89 - Other ill-defined heart diseases Status: Acute (3) Lesion of right [place] kidney: Code(s): N28.9 - Disorder of kidney and ureter, unspecified Status: Acute (4) Hypertension: Code(s): I10 - Essential (primary) hypertension Status: Acute (5) Hypothyroidism: Code(s): E03.9 - Hypothyroidism, unspecified Status: Acute (6) Stage 3b chronic kidney disease: Code(s): N18.32 - Chronic kidney disease, stage 3b Status: Chronic (7) Pre-diabetes: Code(s): R73.03 - Prediabetes Status: Resolved DS: Summary Hospital Course Reason for hospitalization: COPD exacerbation Hospital Course: Patient was a 79-year-old female former smoker with chronic obstructive pulmonary disease, chronic respiratory failure on p.r.n. oxygen during the day and at nighttime, aortic valve stenosis, diastolic dysfunction, hypertension, hyperlipidemia, untreated obstructive sleep apnea, type 2 diabetes mellitus, chronic kidney disease, and other comorbidities who presented to the emergency department via private vehicle with complaints of shortness of breath. Prior to arrival to the ED she was experiencing congestion, a dry cough, and increasing dyspnea and wheezing on lesser and lesser exertion. She has some swelling in her legs as well but states they have gone down recently. She has not been on any steroids or antibiotics recently. She was then admitted for further treatment of COPD exacerbation Initial findings: Vital signs were stable on arrival. Labs were significant for D-dimer of 1.23, BUN 18, creatinine 1.56, proBNP 134, troponin 0.012. Chest CTA showed no pulmonary embolism though sensitivity was decreased by motion artifact, right middle lobe collapse with additional mild atelectasis, tracheobronchial malacia, enlargement of central pulmonary arteries, a 6 mm soft tissue density exophytic lesion at the right kidney. She received a nebulizer treatment, methylprednisolone, and magnesium sulfate. Patient continue treatment for 24 hours with Duo nebulizers prednisone was weaned back to room air at rest and was in no acute respiratory distress she had overall improvement of symptoms and states she felt back to baseline. Patient was discharged back to home on her home supplement oxygen requirements with recommendation to follow up with Pulmonary outpatient, patient acknowledged agreed with discharge plan patient was discharged home with family. Status at Discharge Functional status at discharge: uses cane/walker Time Spent with Patient Time attestation: Total time spent providing and/or coordinating discharge services: Time spent: Greater than 30 minutes Exam Const: General: comfortable and no acute distress HENMT: Mouth: Yes moist mucous membranes Eyes: General: appearance normal, both eyes and all related structures Pupils: Equal, round and reactive pupils present Neck: Neck: supple Resp: Effort & Inspection: normal respiratory effort Auscultation: rhonchi throughout Cardio: Rate: regular rate Rhythm: regular rhythm GI: GI Palp: Yes Soft to palpation Auscultation: normal bowel sounds Skin: General skin exam: normal color and no rashes or lesions noted Neuro: General: gait normal Motor exam (neuro): 5/5 motor strength present throughout Sensory Exam: normal sensation Extrem: General: normal to inspection Psych: Mental Status: mental status grossly normal Affect: normal affect DS: Data Data Completed and Pending Labs on day of discharge: Labs from last 24 hours 02/14/25 02/14/25 02/14/25 11:07 08:28 05:38 PT INR APTT D-Dimer Puncture Site ABG pH ABG pCO2 ABG pO2 ABG PO2/FiO2 Ratio ABG HCO3 ABG O2 Saturation ABG O2 Content ABG Base Excess A-a Gradient Oxyhemoglobin Total Hemoglobin O2 Delivery Device O2 Liters/Min FiO2 Sodium 143 Potassium 3.8 Chloride 102 Carbon Dioxide 28 Anion Gap 13 H BUN 24 H Creatinine 1.95 H Estim Creat Clear Calc 26 Estimated GFR 25 L Glucose 168 H POC Capillary Glucose 190 H 188 H Hemoglobin A1c Calcium 9.1 Magnesium 2.2 Troponin I NT-Pro-B Natriuret Pep TSH (Reflex) 0.248 L Free T4 1.21 Total T3 Pending Urine Color Urine Appearance Urine pH Ur Specific [place] Urine Protein Urine Glucose (UA) Urine Ketones Ur Blood (Man) Urine Nitrate Urine Bilirubin Urine Urobilinogen Leukocyte Esterase Rfl Urine RBC Urine WBC Ur Squamous Epith Cells Urine Bacteria Urine Casts Influenza A (RT-PCR) Influenza B (RT-PCR) SARS-CoV-2 RNA (RT-PCR) 02/14/25 02/13/25 02/13/25 00:13 16:16 16:01 PT INR APTT D-Dimer Puncture Site Right radial ABG pH 7.384 ABG pCO2 42.6 ABG pO2 65.1 L ABG PO2/FiO2 Ratio 2.33 ABG HCO3 24.9 ABG O2 Saturation 92.5 L ABG O2 Content 18.8 ABG Base Excess -0.3 A-a Gradient 84.3 Oxyhemoglobin 91.6 Total Hemoglobin 14.6 O2 Delivery Device Nasal cannula O2 Liters/Min 2.0 FiO2 28 Sodium Potassium Chloride Carbon Dioxide Anion Gap BUN Creatinine Estim Creat Clear Calc Estimated GFR Glucose POC Capillary Glucose Hemoglobin A1c Calcium Magnesium Troponin I NT-Pro-B Natriuret Pep TSH (Reflex) Free T4 Total T3 Urine Color Yellow Urine Appearance Clear Urine pH 7.0 Ur Specific [place] 1.024 Urine Protein Trace Urine Glucose (UA) 3+ H Urine Ketones Negative Ur Blood (Man) Negative Urine Nitrate Negative Urine Bilirubin Negative Urine Urobilinogen 0.2 Leukocyte Esterase Rfl Negative Urine RBC 0-2 Urine WBC 0-5 Ur Squamous Epith Cells None seen Urine Bacteria None seen Urine Casts 0-2 Influenza A (RT-PCR) Negative Influenza B (RT-PCR) Negative SARS-CoV-2 RNA (RT-PCR) Negative 02/13/25 13:37 PT 13.3 INR 1.0 APTT 27.6 D-Dimer 1.23 H Puncture Site ABG pH ABG pCO2 ABG pO2 ABG PO2/FiO2 Ratio ABG HCO3 ABG O2 Saturation ABG O2 Content ABG Base Excess A-a Gradient Oxyhemoglobin Total Hemoglobin O2 Delivery Device O2 Liters/Min FiO2 Sodium Potassium Chloride Carbon Dioxide Anion Gap BUN Creatinine Estim Creat Clear Calc Estimated GFR Glucose POC Capillary Glucose Hemoglobin A1c 5.8 H Calcium Magnesium Troponin I 0.012 NT-Pro-B Natriuret Pep 134 H TSH (Reflex) Free T4 Total T3 Urine Color Urine Appearance Urine pH Ur Specific [place] Urine Protein Urine Glucose (UA) Urine Ketones Ur Blood (Man) Urine Nitrate Urine Bilirubin Urine Urobilinogen Leukocyte Esterase Rfl Urine RBC Urine WBC Ur Squamous Epith Cells Urine Bacteria Urine Casts Influenza A (RT-PCR) Influenza B (RT-PCR) SARS-CoV-2 RNA (RT-PCR) Imaging Radiologist's impression: EXAMINATION: CTA chest PE protocol DATE: 02/13/2025 14:43 INDICATION: Shortness of breath TECHNIQUE: Computed tomography (CT) pulmonary angiogram of the chest was performed with 100 mL Omnipaque-350 intravenous contrast. Additional 3D reconstructions utilizing coronal maximum intensity projection (MIP) were performed. Automated exposure control and iterative reconstruction technique were employed. The dose-length product was 932.47 mGy-cm. COMPARISON: 12/04/2024 FINDINGS: No evident pulmonary embolism. Sensitivity decreased in the basilar segmental and subsegmental pulmonary arteries and some of the smaller subsegmental pulmonary arteries in the mid and upper lungs due to moderate to severe basilar predominant respiratory motion. Right middle lobe collapse. Mild discoid atelectasis at the lingula and bilateral lower lobes. Mosaic attenuation in the upper lobes without septal line thickening to suggest pulmonary edema in this most likely related to mild atelectasis and more lucent subsegmental regions of air trapping. No pneumonia, pulmonary edema or pleural effusion. Tracheobronchial malacia with prominent AP narrowing of the trachea and mainstem bronchi. Heart size is normal. Atherosclerotic coronary artery calcification. Aortic valve calcification. Thoracic aorta is normal in caliber with no dissection. Enlargement of the central pulmonary arteries consistent with pulmonary arterial hypertension.. No pathologically enlarged thoracic lymphadenopathy. Cholecystectomy clips the gallbladder fossa. 1.9 cm cyst at the upper pole of the left kidney. 6 mm exophytic soft tissue density lesion at the upper pole the right kidney. C6-C7 anterior spinal fusion. Mild to moderate lower thoracic predominant spondylosis. IMPRESSION: 1. No pulmonary embolism. Sensitivity decreased in the basilar segmental and more diffusely through the subsegmental pulmonary arteries due to moderate to severe respiratory motion artifact. 2. Right middle lobe collapse with additional mild atelectasis scattered throughout the remainder of the lungs with subsegmental regions of more lucent air trapping the upper lungs consistent with small airway disease.. 3. Tracheobronchial malacia. 4. Enlargement of the central pulmonary arteries consistent with pulmonary arterial hypertension. 4. 6 mm soft tissue density exophytic lesion at the right kidney which could represent a complex proteinaceous/hemorrhagic cyst or renal cell carcinoma. Recommend follow-up pre and postcontrast MRI or CT when patient is able to breath-hold. Discharge Plan Discharge Attending physician on discharge: Herman Tenorio Consulting providers: Carley Mercado; Emilia Atwood; Meme Haque Umar; Frohnert, Paul Discharging Clinician: Carley Mercado Anticipated Discharge Date/Time: 02/14/25 14:04 Patient Disposition: Home Activity: may shower, as tolerated and other - see discharge instructions Diet: heart healthy Discharge Instructions: COPD exacerbation * I have prescribed azithromycin and prednisone please take as indicated and complete even if feeling better * Continue to use her flutter valve and incentive spirometer * Follow-up with your wheelage clerk as scheduled next month * I recommend frequent rest periods between activity with ample time for recovery * I also recommend an eye and histamine at night * Continue with guaifenesin as prescribed Kidney lesion: * Will need Recommend follow-up pre and postcontrast MRI or CT when patient is able to breath-hold outpatient How can you care for yourself at home? ? Keep track of any new symptoms or changes in your symptoms. ? Rest until you feel better. ? Be safe with medicines. Take your medicines exactly as prescribed. Call your doctor if you think you are having a problem with your medicine. ? Do not drive after taking a prescription pain medicine. ? Ensure to follow-up with primary care physician as indicated and provide updated medication list provided to you at discharge. When should you call for help? Call 911 anytime you think you may need emergency care. For example, call if: ? You passed out (lost consciousness). Call your doctor now or seek immediate medical care if: ? You have new symptoms like fever, difficulty breathing, Chest pain, vomiting, or rash. ? You have new or different pain. ? You are confused and are having trouble thinking clearly. ? Your symptoms are getting worse. Watch closely for changes in your health, and be sure to contact your doctor if: ? You do not get better as expected. Patient Instructions: Antibiotic Form Patient Language: New Zealander Stand Alone Forms: General Discharge Information Follow-up/Referrals: Jn Velásquez MD [Primary Care Provider] - 2 Weeks Wilber Godoy MD [Physician] - Keep Reg. Scheduled Appt. Discharge Medications: New azithromycin [Zithromax] 250 mg Tablet 500 mg PO DAILY Qty: 8 0RF prednisone 20 mg Tablet 40 mg PO DAILY@0800 Qty: 8 0RF loratadine 10 mg Tablet 10 mg PO QHS Qty: 30 0RF guaifenesin [Mucus Relief ER] 600 mg Tablet Extended Release 12hr 1,200 mg PO Q12HR Qty: 30 0RF Continued pregabalin 200 mg capsule 200 mg PO BID rosuvastatin 10 mg tablet 10 mg PO HS magnesium oxide 400 mg magnesium tablet 400 mg PO BID Trintellix 20 mg tablet 20 mg PO DAILY ipratropium-albuterol 0.5 mg-3 mg(2.5 mg base)/3 mL solution for nebulization 3 ml inhalation QID Qty: 180 3RF budesonide 0.5 mg/2 mL suspension for nebulization 0.5 mg inhalation DAILY Qty: 60 3RF furosemide 20 mg tablet 20 mg PO DAILY minoxidil 2.5 mg tablet 2.5 mg PO DAILY oxybutynin chloride 10 mg Tablet Extended Release 24hr 10 mg PO HS amlodipine 5 mg Tablet 5 mg PO DAILY albuterol sulfate 90 mcg/actuation HFA aerosol inhaler 2 puff inhalation QID PRN (Reason: shortness of breath or wheezing) Qty: 8.5 0RF hydrocodone-acetaminophen 10-325 mg tablet 1 tablet PO Q6H PRN (Reason: pain) levothyroxine [Unithroid] 75 mcg tablet 75 mcg PO 0100 albuterol sulfate 2.5 mg /3 mL (0.083 %) solution for nebulization 2.5 mg inhalation Q4-6H PRN (Reason: shortness of breath or wheezing) Qty: 180 2RF dapagliflozin propanediol [Farxiga] 10 mg tablet 10 mg PO DAILY Qty: 30 12RF Mounjaro 5 mg/0.5 mL pen injector 5 mg subcut WEEKLY Qty: 2 0RF Date of admission: 02/13/25 17:07 Primary Care Provider: Jn Velásquez Admitting Provider: Stephan Worrell Attending physician on admission: Herman Tenorio Condition: Stable Quality VTE Prophylaxis VTE prophylaxis: pharmacologic ordered -Patient's previous records reviewed on admission -ER notes reviewed in detail on admission -discussed all findings and current treatment plan with patient/Family/POA -Consultations reviewed for recommendations -Patient's disposition for safe discharge discussed with case mgr Dictation performed by [employer] direct speech recognition software, therefore pediatrician managing partner variants and typographical errors may occur. Hospitalist MIPS Heart Failure (Exclusion) Patient has history of Heart Transplant or Left Ventricular Assistive Device?: No IF YES, STOP HERE Heart Failure (Qualifier) Patient has current or prior documentation of LVEF less than or equal to 40%, or mod/servere depressed LVSF?: No IF NO, STOP HERE
[2025-02-14 23:37] LABS: Total Triiodothyronine (T3) 1.02 NG/ML (0.97-1.69)
== END 2025-02-14 15:30 | disposition home or self-care (01) ==
LOC: ANHED 17:06 → ANH3MEDSUR 02-14 07:53
PROVIDERS: Physician Assistant; Admitting Provider General Practice; Emergency Provider Registered Nurse; PCP Family Medicine; Visit Provider Internal Medicine
DX: J44.1 Chronic obstructive pulmonary disease with (acute) exacerbation (principal); J96.10 Chronic respiratory failure, unspecified whether with hypoxia or hypercapnia; Z99.81 Dependence on supplemental oxygen; N28.9 Disorder of kidney and ureter, unspecified; E11.22 Type 2 diabetes mellitus with diabetic chronic kidney disease; I13.10 Hypertensive heart and chronic kidney disease without heart failure, with stage 1 through stage 4 chronic kidney disease, or unspecified chronic kidney disease; N18.32 Chronic kidney disease, stage 3b; I35.0 Nonrheumatic aortic (valve) stenosis; E89.0 Postprocedural hypothyroidism; F51.01 Primary insomnia; G47.33 Obstructive sleep apnea (adult) (pediatric); E78.5 Hyperlipidemia, unspecified; K21.9 Gastro-esophageal reflux disease without esophagitis; K44.9 Diaphragmatic hernia without obstruction or gangrene; Z95.0 Presence of cardiac pacemaker; Z20.822 Contact with and (suspected) exposure to COVID-19; Z87.891 Personal history of nicotine dependence; Z79.51 Long term (current) use of inhaled steroids; Z79.85 Long-term (current) use of injectable non-insulin antidiabetic drugs; Z79.899 Other long term (current) drug therapy; Z85.850 Personal history of malignant neoplasm of thyroid; Z90.49 Acquired absence of other specified parts of digestive tract
CPT/HCPCS: 36415; 36600; 71045; 71275; 80048; 80053; 81001; 82805; 82948; 83036; 83735; 83880; 84439; 84443; 84480; 84484; 85018; 85025; 85380; 85610; 85730; 87636; 93005; 93970; 94640; 94667; 96361; 96365; 96372; 96375; 96376; 99285; A9270; G0378; J1650; J1938; J2919; J3475; J7030; Q9967

== ENCOUNTER → 2025-03-08 12:59 | Outpatient (CLI) | payer MEDICARE, MEDICAID, SELFPAY ==
--- NOTE | ~2025-03-08 | XR_ITS ---
Clinical Indication: CHF, shortness of breath PA and lateral views of the chest: Comparison: None Findings: There is mild patchy bibasilar haziness.. Cardiomediastinal silhouette is within normal li mits. Bones and soft tissues are unremarkable. Impression: Patchy mild bibasilar haziness. Correlate for mild pulmonary vascular atelectasis versus possibly pne umonia. Reviewed, dictated and finalized at location . Impression: Patchy mild bibasilar haziness. Correlate for mild pulmonary vascular atelectas is versus possibly pneumonia.
== END ==
PROVIDERS: PCP Internal Medicine Cardiovascular Disease; Visit Provider Internal Medicine Cardiovascular Disease
DX: J44.9 Chronic obstructive pulmonary disease, unspecified (principal); I50.9 Heart failure, unspecified
CPT/HCPCS: 71046

== ENCOUNTER 2025-03-21 10:05 | Emergency (ER) | payer MEDICARE, MEDICAID, SELFPAY ==
[2025-03-21] VITALS (31 sets, daily range): BP systolic 105–152; BP diastolic 49–96; PULSE 48–92; RESP 12–21; TEMP 36.4; O2SAT 88–100
--- NOTE | ~2025-03-21 | CT_ITS ---
CT Scan of the Chest without Contrast: Clinical Indication: Dyspnea Technique: Contiguous sections were acquired throughout the chest without intravenous contrast. Dose reduction technique was used on this scan by utilizing automated exposure control and iterative recon struction technique. The dose-length product (DLP) was 889.86 mGy-cm. COMPARISON: 02/13/2025 Findings: There is no evidence of any significant mediastinal, hilar or axillary lymphadenopathy. There are ext ensive atherosclerotic calcifications of the aorta and coronary arteries. There is no evidence of pleural or pericardial effusion. There are probable mild chronic interstitial changes peripherally. Probable superimposed atelectasis or scarring at the right middle lobe. Images through the upper abdomen reveal no abnormalities. Impression: Mild chronic interstitial disease and probable superimposed atelectasis or scarring at the right midd le lobe. Findings overall are improved from prior exam. Reviewed, dictated and finalized at [facility]. Impression: Mild chronic interstitial disease and probable superimposed atelectasis or scar ring at the right middle lobe. Findings overall are improved from prior exam.
--- NOTE | ~2025-03-21 | XR_ITS ---
XR chest 1V portable 03/21/2025 12:27 Indication: Cough and dyspnea Procedure: AP portable chest Comparison: Comparison to multiple prior studies sequentially, with oldest reviewed study dated 11/24. Findings: Borderline heart size. Bilateral interstitial infiltrates with focal consolidation right lo wer lung. Mildly elevated right diaphragm. No pleural effusion or pneumothorax. Impression: 1: Bilateral interstitial infiltrates with consolidation of the right lower lung which may represent pneumonia, atelectasis and/or edema. Reviewed, dictated and finalized at location A. Impression: 1: Bilateral interstitial infiltrates with consolidation of the right lower arnaud g which may represent pneumonia, atelectasis and/or edema.
--- OUTSIDE RECORDS SUMMARY | 2025-03-21 10:07 | XMS_ITS | Patient Health Record ---
Author Organization [facility] As [employer] Address [address] [place] [address] Care Team Providers Care Specialty Manufacturing Supervisor Name Role Phone Sandie Irwin Unavailable [phone] Migration, Provider Unavailable Unavailable Allergies Allergen (clinical [...] DAPAGLIFLOZIN PROPANEDIOL 10 MG TABLET *Reorder from [facility] for eRx and Interaction Alerts* 03/19/2024 Unknown oxyBUTYnin Chloride ER 10 MG Oral 03/19/2024 Unknown Unithroid 88 mcg Oral 03/19/2024 Un known Korlym 300 mg Oral 03/19/2024 Unkno wn Farxiga 10 MG Oral 03/19/2024 Unkno wn PREGABALIN 200 MG CAPSULE *Reord er from [facility] for eRx and Interaction Alerts* 03/19/2024 Unknown dexAMETHasone 1 MG Oral 03/19/2024 Unknown Albuterol Sulfate (2.5 MG/3ML) 0.083% Inhalation 03/19/2024 Unknown Magnesium Oxide (Elemental) 400 MG Oral *Reorder from [facility] for eRx and Interaction Alerts* 03/19/2024 Unknown ProAir HFA 108 (90 Base) MCG/ACT Inhalation 03/19/2024 Unknown Chlorthalidone 25 MG Oral 03/19/2024 Unknown Azithromycin 250 MG Oral 03/19/2024 Unknown Isosorbide Mononitrate ER 30 MG Oral 03/19/2024 Unknown Rosuvastatin Calcium 10 MG Oral 03/19/2024 Unknown KERENDIA 10 MG TABLET *Reorder f [facility] for eRx and Interaction Alerts* 03/19/2024 Unknown INSULIN SYRINGE/U-100/1ML/31G X 5/1 6 31G X 5/16 1 ML MISC *Reorder from [facility] for eRx and Interaction Alerts* 03/19/2024 Unknown rOPINIRole HCl 0.5 MG Oral 03/19/2024 Unknown Ergocalciferol 1.25 MG (16082 UT) Oral 03/19/2024 Unknown Atenolol 25 MG Oral 03/19/2024 Unkn own Allopurinol 100 MG Oral 03/19/2024 Unknown hydroCHLOROthiazide 25 MG Oral 03/19/2024 Unknown Nitroglycerin 0.4 MG Sublingual 03/19/2024 Unknown Breztri Aerosphere 160-9-4.8 MCG/ACT Inhalation *Reorder from [facility] for eRx and Interaction Alerts* 03/19/2024 Unknown hydrALAZINE HCl 50 MG Oral 03/19/2024 Unknown Immunizations Vaccine Route Administration Date Status Comme nts Influenza, high-dose seasona l, quadrivalent, preservative free >65 yrs Unknown 07/18/2020 Administered Influenza, high-dose seasona l, quadrivalent, preservative free >65 yrs Unknown 08/07/2021 Administered Moderna Covid-19 Vaccine 1st dose Unknown 01/23/2021 Ad ministered Moderna Covid-19 Vaccine 1st dose Unknown 02/20/2021 Ad ministered Pneumococcal conjugate PCV 13 Unknown 11/26/2015 Admini stered Pneumococcal conjugate PCV 7 Unknown 11/07/2009 Adminis tered Tdap Unknown 02/04/2021 Administered Social History Tobacco Use: Social History Observation Description Date Details (start date - stop date) Former Smoker NA - NA Sex Assigned At : Social History Observation Description Sex Assigned At Female Tobacco Control (Standard) Question Answer Notes Tobacco use: Former smoker Problems Problem Type SNOMED Code ICD Code Onset Dates Problem Status W/U Status Risk Notes Problem Major depressive disorder, 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 Problem Generalized anxiety disorder (17347359) Generalized anxiety disorder (F41.1) Active confirmed Problem Primary insomnia (4712162) Primary insomnia (F51.01) Active confirmed Vital Signs Heart Rate 96 /min 01/21/2025 Height-cm 162.56 cm 01/21/2025 Blood pressure diastolic 65 mm Hg 01/21/2025 Weight-kg 108.86 kg 01/21/2025 Height 64.00 in 01/21/2025 Blood pressure systolic 159 mm Hg 01/21/2025 Weight 240 lbs 01/21/2025 BMI 41.19 kg/m2 01/21/2025 Encounters Encounter Location Date Provider Diagnosis [facility] [employer] [facility] [address] [address] 07/24/2024 Sandie Irwin Major depressive disorder, recurrent severe without psychotic features F33.2 ; Generalized anxiety disorder F41.1 and Primary insomnia F51.01 [facility] [employer] [place] [id number] [place] [address] 01/21/2025 Sandie Irwin Benign essential HTN I10 ; Encounter for screening for cardiovascular disorders Z13.6 ; Dietary counseling and surveillance Z71.3 ; Encounter for screening for depression Z13.31 ; Major depressive disorder, recurrent severe without psychotic features F33.2 ; Generalized anxiety disorder F41.1 and Primary insomnia F51.01 [facility] [employer] [facility] [address] [place] [address] 03/24/2024 Provider Migration [facility] [employer] [facility] [address] [place] [address] 03/25/2024 Provider Migration Assessments Encounter Date Diagnosis [...] screening for cardiovascular disorders (ICD-10 - Z13.6) 07/24/2024 Primary insomnia (ICD-10 - F51.01) 01/21/2025 Dietary counseling and surveillance (ICD-10 - [...] effects of psychotropic medications. -Crisis prevention hotline 168. Plan Of Treatment Next Appt Details Provider Name:Sandie Khalil matti, 07/22/2025 01:00:00 PM, [address], [facility] [address], [place], [address], Insurance Providers Payer Name Payer Address Payer Phone Subscriber Number Group Number Insured Name Patient Relationship to Insured Coverage Start Date Coverage End Date [employer] Medicare Replacement/ Advantage - Ppo [address] [address] [place] [address] [id number] JESU HARLEY Self - patient is the insured [place] [address] [address] [place] [address] [id number] JESU HARLEY Self - patient is the [...] Surgical History Surgery Date(Month/Year) Removal of gallbladder (99025) Cosmetic surgery 11/07/1999
--- OUTSIDE RECORDS SUMMARY | 2025-03-21 10:07 | XMS_ITS | Clinical Summary ---
Author Organization [facility] Address [address], [place] [address] Phone Care Team Providers Care Community Reinvestment Act Officer Name Role Phone Jn Velásquez MD Primary Care Provider [phone] Allergies Active Allergy Reactions Criticality Noted Date [...] 0 Active ergocalciferol (VITAMIN D2) 1.25 MG (77846 UT) capsule Take 50,000 Units by mouth [...] on file Legal Sex Female 8:46 AM [facility] Gender Identity Not on file Sexual Orientation [...] and Highest Risk (2 of 4 - PPSV23) 01/21/2016 11/26/2015 Influenza Vaccine (Season Ended) 2025 Insurance MEDICAID - [place] [employer] MEDICARE Care Teams Community Reinvestment Act Officer Relationship Specialty Start Date End Date Jn Velásquez MD [address] [place] [address] PCP - General Internal Medicine 06/18/20
--- OUTSIDE RECORDS SUMMARY | 2025-03-21 10:08 | XMS_ITS | Clinical Summary ---
Author Organization [facility] on Address [address] [facility] [address] [address] Phone Care Team Providers Care Scrap Crane Operator Name Role Phone Unavailable Primary Care Provider Unavailabl e Encounters Date Type Department Care Team Description 03/12/2025 External Device Data [facility] ABSTRACTION Provider, Abstract 12/25/2024 External Device Data [facility] ABSTRACTION Provider, Abstract from Last 3 Months Social History Tobacco [...]
--- OUTSIDE RECORDS SUMMARY | 2025-03-21 10:08 | XMS_ITS | Clinical Summary ---
Author Organization [facility] Address [address] [place] [address] Care Team Providers Care Marketing/Sales Person Name Role Phone Waqas De Leon MD Unavailable [phone] Waqas De Leon MD Unavailable [phone] Cortney Corona MD Unavailable Jn Velásquez MD Primary Care Provider [phone] Miscellaneous, Not In File Unavailable Unava ilDaniel Mckeon MD Unavailable [phone] James Cifuentes MD Unavailable Allergies Active [...] CDT): Pt dx a month ago with [place]'s disease (abnormal high-dose dexamethasone suppression test) and [...] Patient need to follow up with her engineer exhauster Dr. Fitch at [facility] on 06/28 Acute pulmonary edema 05/18/20222021 Assessment [...] on room air- transition to torsemide per engineer exhauster, add low dose potassium supplement. Continue to [...] Type Department Care Team Description 01/18/2025 Telephone [facility] Rheumatology [address] [facility] 5th Floor [address] [place] [id number] Zarina Carroll MD Discuss Test Results 01/14/2025 Telephone [facility] Endocrinology Metabolism and Lipid [address] [facility] [facility] 5th [place] [address] [place] [address] Nahed Santoro RMA Appointment (Referral from [facility]) from Last 3 Months Surgical History Surgery [...] How often do you attend chur or denominational services? Never 05/31/2023 Do you belong to any clubs o r organizations such as restorationism groups, unions, fraternal or athletic groups, or [...] slept in a custodial (including now)? No 05/31/2023 Personal Safety Answer Date Recorded Have you ever been in or are you currently in a harmful physical or emotional relationship or is someone making you feel afraid or unsafe? Denies 05/30/2023 Comments Unknown Sex and Gender Information Value Date Recorded Sex Assigned at Not on file Legal Sex Female 7:23 PM CUSTODIAL LABORER Gender Identity Not on file Sexual Orientation Not on file Obstetrics History Last Filed Vital Signs Vital Sign Reading Time Taken Comments Blood Pressure 123/61 10/10/2024 1:09 PM CUSTODIAL LABORER Pulse 70 10/10/2024 1:09 PM CUSTODIAL LABORER Temperature 36.7 C (98 F) 10/10/2024 1:09 PM CUSTODIAL LABORER Respiratory Rate 20 06/01/2023 11:31 AM CDT Oxygen Saturation 88% 08/10/2024 10:08 AM CDT Inhaled Oxygen Concentration - - Weight 106 kg (233 lb 9.6 oz) 10/10/2024 1:09 PM CUSTODIAL LABORER Height 156.2 cm (5' 1.5 ) 10/10/2024 1:09 PM CUSTODIAL LABORER Body Mass Index 43.42 10/10/2024 1:09 PM CUSTODIAL LABORER Plan of Treatment Health Maintenance Due Date Last Done Comments Depression Screening 1945 Osteoporosis Screening-Bone Density Scan 1947 Hepatitis B Screening 1965 Lung Cancer Screening 1997 Zoster Vaccine (1 of 2) 1997 Well Visit 65+ 2012 Pneumococcal vaccine 65+ (2 of 2 - PPSV23) 01/21/2016 11/26/2015, 11/07/2009 Fall Risk Assessment 06/01/2024 06/01/2023 Covid-19 Vaccine ( season) 2024, 01/23/2021 Influenza Vaccine (Season Ended) 2025 08/07/20 21, 07/18/2020 DTaP/Tdap/Td Vaccine (2 - Td or Tdap) 02/04/2031 Breast Cancer Screening-Mammogram Discontinued 014 Hepatitis C Screening Completed 08/10/2024 Procedures Procedure Name Priority Date/Time Associated Diagnosis Comments HEPATITIS PANEL, ACUTE Routine 08/10/2024 12:01 PM CDT Interstitial pulmonary disease (HCC) from Last 3 Months or Most Recently Relevant to Health Maintenance Results * Hepatitis panel, acute Blood (08/10/2024 12:01 PM CDT) Hep A IgM Nonreactive Nonreactive Hep B core IgM Nonreactive Nonreactive [facility] Hep C Ab Nonreactive Nonreactive [facility] [...] Final Result [facility] Department [place] [address] from Last 3 Months or Most Recently Relevant to Health Maintenance Insurance [place] [id number] [facility] MEDICARE ADVANTAGE IDPA [facility] MEDICARE ADVANTAGE IDKS Advance Directives For more information, please contact: [phone] * Full Code (Latest Code Status on File) Date Activated Date Inactivated Comments 05/30/2023 2:42 AM 06/01/2023 6:25 PM * Full Code Date Activated Date Inactivated Comments 05/30/2023 12:31 AM 05/30/2023 2:42 AM * Full Code Date Activated Date Inactivated Comments 05/05/2022 2:33 PM 05/14/2022 7:09 PM Care Teams Marketing/Sales Person Relationship Specialty Start Date End Date Jn Velásquez MD PCP - General Family Medicine 05/29/23 Waqas De Leon MD Internal Medicine 11/20/21 Waqas De Leon MD Internal Medicine 06/06/19 Cortney Corona MD Referring Physician Surgery 05/14/22 Miscellaneous, Not In File 05/31/23 Daniel Go MD [address] [place] [address] Consulting Physician Interventional Cardiology 05/31/23 [place] [address] [facility] [address] [place] [address] Consulting Physician Pulmonary Disease 05/31/23
--- OUTSIDE RECORDS SUMMARY | 2025-03-21 10:08 | XMS_ITS | Clinical Summary ---
Author Organization [facility] Address [facility] [address] [place] [address] Care Team Providers Care Baby Sitter Name Role Phone Unavailable Primary Care Provider Unavailabl e Social History Tobacco Use Types Packs/Day Years Used Date Smoking Tobacco: Never Assessed Comments Unknown Sex and Gender Information Value Date Recorded Sex Assigned at Not on file Legal Sex Female 8:29 PM CDT Gender Identity Not on file Sexual Orientation Not on file Plan of Treatment Health Maintenance Due Date Last Done Comments DTaP, Tdap and Td Vaccines ( 1 - Tdap) 1966 Zoster Vaccines (1 of 2) 1997 Dexa Scan (General) 2012 Pneumococcal Vaccine: 50+ Ye ars (2 of 2 - PPSV23) 11/26/2016 11/26/2015 RSV Immunization or 60+ Years (1 - 1-dose 75+ series) 2022 COVID-19 Vaccine ( - 2023-2 5 season) 2024 Hepatitis C Completed 06/10/2014 Meningococcal B Vaccine Aged Out No l onger eligible based on patient's age to complete this topic Meningococcal Vaccine Aged Out No trae zeina eligible based on patient's age to complete this topic RSV Immunizations Under 20 Months Aged Out No longer eligible based on patient's age to complete this topic
--- OUTSIDE RECORDS SUMMARY | 2025-03-21 10:08 | XMS_ITS | Encounter Summary ---
Author Organization [facility] Address [address] [place] [address] Phone Care Team Providers Care Fire Equipment Operator Name Role Phone Jn Velásquez MD Primary Care Provider [phone] Waqas De Leon MD Unavailable [phone] Waqas De Leon MD Unavailable [phone] Cortney Corona MD Unavailable [phone] Stephanie Morrissey MD Primary Care Provider [phone] Jn Velásquez MD Primary Care Provider [phone] Miscellaneous, Not In File Unavailable Unava ilDaniel Mckeon MD Unavailable [phone] James Cifuentes MD Unavailable [phone] Encounter Details Date Type Department Care Team [...] file Legal Sex Female 7:23 PM VEHICLE INSURANCE AGENT Gender Identity Not on file Sexual Orientation [...] documented as of this encounter Care Teams Fire Equipment Operator Relationship Specialty Start Date End Date [...] 05/31/23 Daniel Go MD [address] [place] [address] Consulting Physician Interventional Cardiology 05/31/23 [place] [address] [facility] [address] [place] [address] Consulting Physician Pulmonary Disease 05/31/23 documented as of this encounter
--- OUTSIDE RECORDS SUMMARY | 2025-03-21 10:08 | XMS_ITS | Encounter Summary ---
Author Organization [facility] Address [address] [place] [address] Phone Care Team Providers Care Safety Security Officer Name Role Phone Jn Velásquez MD Primary Care Provider [phone] Waqsa De Leon MD Unavailable [phone] Waqas De Leon MD Unavailable [phone] Cortney Corona MD Unavailable [phone] Stephanie Morrissey MD Primary Care Provider [phone] Jn Velásquez MD Primary Care Provider [phone] Miscellaneous, Not In File Unavailable Unava ilable Daniel Go MD Unavailable [phone] James Cifuentes MD Unavailable [phone] Encounter Details Date Type Department Care Team [...] attend chur ch or anglican services? Never 05/04/2022 Do you belong to any clubs o r organizations such as mu-ism groups, unions, fraternal or athletic groups, or [...] place to sleep or slept in a half-way (including now)? 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
--- OUTSIDE RECORDS SUMMARY | 2025-03-21 10:08 | XMS_ITS | Referral Summary ---
Author Organization [facility] Address [address] [place] [address] Care Team Providers Care Cold Mill Inspector Name Role Phone Waqas De Leon MD Unavailable [phone] Waqas De Leon MD Unavailable [phone] Cortney Corona MD Unavailable Jn Velásquez MD Primary Care Provider [phone] Miscellaneous, Not In File Unavailable Unava ilDaniel Mckeon MD Unavailable [phone] James Cifuentes MD Unavailable Encounters Date Type Department Care Team Description 01/18/2025 Telephone [facility] Rheumatology [address] [facility] Advanced Medicine 5th [place] [address] [place] [address] Zarina Carroll MD Discuss Test Results 01/14/2025 Telephone [facility] Endocrinology Metabolism and Lipid [address] [facility] Medicine 5th [place] [address] [place] [address] Nahed Santoro RMA Appointment (Referral from [facility]) from Last 3 Months Allergies Active Allergy [...] Patient need to follow up with her director clinical pharmacology Dr. Fitch at [facility] on 06/28 Acute pulmonary edema 05/18/20222021 [...] on room air- transition to torsemide per director clinical pharmacology, add low dose potassium supplement. Continue to [...] Smoking Tobacco: Former Cigarettes 1 53 1 7 - 2020 Smokeless Tobacco: Never Tobacco Cessation:Counseling [...] often do you attend chur ch or baptism services? Never 05/31/2023 Do you belong to [...] on file Legal Sex Female 7:23 PM MARINE CONSULTANT Gender Identity Not on file Sexual Orientation Not on file Last Filed Vital Signs Vital Sign Reading Time Taken Comments Blood Pressure 123/61 10/10/2024 1:09 PM MARINE CONSULTANT Pulse 70 10/10/2024 1:09 PM MARINE CONSULTANT Temperature 36.7 C (98 F) 10/10/2024 1:09 PM MARINE CONSULTANT Respiratory Rate 20 06/01/2023 11:31 AM CDT Oxygen Saturation 88% 08/10/2024 10:08 AM CDT Inhaled Oxygen Concentration - - Weight 106 kg (233 lb 9.6 oz) 10/10/2024 1:09 PM MARINE CONSULTANT Height 156.2 cm (5' 1.5 ) 10/10/2024 1:09 PM MARINE CONSULTANT Body Mass Index 43.42 10/10/2024 1:09 PM MARINE CONSULTANT Plan of Treatment Not on file Procedures Procedure Name Priority Date/Time Associated Diagnosis Comments HEPATITIS PANEL, ACUTE Routine 08/10/2024 12:01 PM CDT Interstitial pulmonary disease (HCC) from Last 3 Months or Most Recently Relevant to Health Maintenance Results * Hepatitis panel, acute Blood (08/10/2024 12:01 PM CDT) Hep A IgM Nonreactive Nonreactive Hep B core IgM Nonreactive Nonreactive [facility] Hep C Ab Nonreactive Nonreactive [facility] Comment:Antibodies to HCV no t detected. Does NOT exclude the possibility of recent exposure to HCV. Current interpretive data was last revised on 22 HepBsAg Nonreactive Nonreactive [facility] Blood 08/10/2024 12:0 1 PM CDT 08/10/2024 2:23 PM CDT us aZrina Carroll MD LAB MICROBIOLOGY - GENERAL ORDER TATO Final Result [facility] One [facility] [place] [address] from Last 3 Months or Most Recently Relevant to Health Maintenance Insurance [facility] MEDICARE ADVANTAGE IDPA [address] [place] [address] MEDICARE ADVANTAGE IDPA [facility] MEDICARE ADVANTAGE IDPA Advance Directives For more information, please contact: [phone] * Full Code (Latest Code Status on File) Date Activated Date Inactivated Comments 05/30/2023 2:42 AM 06/01/2023 6:25 PM * Full Code Date Activated Date Inactivated Comments 05/30/2023 12:31 AM 05/30/2023 2:42 AM * Full Code Date Activated Date Inactivated Comments 05/05/2022 2:33 PM 05/14/2022 7:09 PM Care Teams Cold Mill Inspector Relationship Specialty Start Date End Date Jn Velásquez MD PCP - General Family Medicine 05/29/23 aWqas De Leon MD Internal Medicine 11/20/21 Waqas De Leon MD Internal Medicine 06/06/19 Cortney Coroan MD Referring Physician Surgery 05/14/22 Miscellaneous, Not In File 05/31/23 Daniel Go MD [address] [place] [address] Consulting Physician Interventional Cardiology 05/31/23 [place] [address] [facility] [address] [place] [address] Consulting Physician Pulmonary Disease 05/31/23
--- OUTSIDE RECORDS SUMMARY | 2025-03-21 10:08 | XMS_ITS | Data Portability ---
Author Organization [facility] [employer], Main Office Address [address] [place] [address] Assessment No assessment recorded. Plan of Treatment Reminders Order Date Submit Date Provider Last Modified By Organization Details Last Modified Time Details Appointments None recorded. Lab lipid panel, serum 2022 023 [facility] (Lab), [address] [place], [address], 3 13:44:14 glycohemogl obin, total, blood 2022 023 [facility] (Lab), [address] [place], [address], 3 14:14:23 CMP, serum or plasma 2022 023 [facility] (Lab), [address] [place], [address], 3 14:34:25 TSH, serum or plasma 2022 023 [facility] (Lab), [address] [place], [address], 3 14:18:28 T4, free, serum 2022 023 [facility] (Lab), [address] [place], [address], 3 14:08:54 T3, free, serum or plasma 2022 023 [facility] (Lab), [address] [place], [address], 3 14:08:59 Referral endocrinolo gy referral - bilateral adrenal hyperplasia with abnormal DST, unable to tolerate korlym 2022 023 Olivia Mills, [address] [facility], [place], [address], 3 12:50:55 Procedures None recorded. Surgeries None recorded. Imaging None recorded. Medication Orders Ozempic 2 mg/dose (8 mg/3 mL) subcutaneou s pen injector 2022 023 [id number] [address], [place], [id number], 4 13:30:28 Farxiga 5 mg tablet [address] [id number], [address], [place], [id number], 4 13:29:03 Unithroid 75 mcg tablet 2022 023 [address] [id number], [address], [place], [id number], 4 13:31:10 Wegovy 0.5 mg/0.5 mL subcutaneou s pen injector 2022 023 [facility] #89432, [address], [place], [id number], 3 12:27:44 Korlym 300 mg tablet 2022 023 [email or web address] [facility], [address] [place], [address], 3 12:29:23 Unithroid 100 mcg tablet 2022 023 [email or web address] [id number], [address], [place], [id number], 12:28:35 Patient TargetsNo targets recorded. Patient InstructionsNo [...] 2.6 pg/mL 2.77-5 .27 low Not Available [facility] (Lab) [address] [place], [address], 12/14/2022 15:23:41 12/14/19 23 12/14/2022 T4 FREE free T4 1.40 NG/dL 0.78-2 .19 Not Available [facility] (Lab) [address] [place], [address], 12/14/2022 15:23:38 12/14/19 23 12/14/2022 TSH thyroid-stim ulating hormone 0.598 uIU/m L 0.465- 4.680 Not Available [facility] (Lab) [address] [place], [address], 12/14/2022 15:12:15 12/14/1912/14/2022 HEMOG LOBIN A1C HA1C 5.6 % 4.0-6. 0 Diabe brianna Scree gisele Crite pamela: <5.7% Consi stent with absen ce of diabe brianna 5.7-6 .4% Consi stent with incre ased risk for diabe brianna (pred iabet es) >OR=6 .5% Consi stent with diabe brianna REFER ENCE: Diabe brianna Care 2016, 39(Anderson ppl.1 ):s13 -s22 Not Available [facility] (Lab) [address] [facility] [place], [address], 12/14/2022 14:54:35 12/14/19 23 12/14/2022 COMPR EHENS KECIA METAB OLIC PANEL A/G ratio 1.3 ratio 1.0-2. 0 Not Available [facility] (Lab) [address] [place], [address], 12/14/2022 14:24:11 12/14/19 23 12/14/2022 COMPR EHENS KECIA METAB OLIC PANEL carbon dioxide 25 mmol/ L 22-30 Not Available [facility] (Lab) [address] [place], [address], 12/14/2022 14:24:11 12/14/19 23 12/14/2022 COMPR EHENS KECIA METAB OLIC PANEL sodium 140 mmol/ L 137-14 5 Not Available [facility] (Lab) [address] [place], [address], 12/14/2022 14:24:11 12/14/19 23 12/14/2022 COMPR EHENS KECIA METAB OLIC PANEL potassium 4.0 mmol/ L 3.5-5. 1 Not Available [facility] (Lab) [address] [place], [address], 12/14/2022 14:24:11 12/14/19 23 12/14/2022 COMPR EHENS KECIA METAB OLIC PANEL chloride 103 mmol/ L 98-107 Not Available [facility] (Lab) [address] [place], [address], 12/14/2022 14:24:11 12/14/19 23 12/14/2022 COMPR EHENS KECIA METAB OLIC PANEL anion gap 16.0 mmol/ L 14-22 Not Available [facility] (Lab) [address] [place], [address], 12/14/2022 14:24:11 12/14/19 23 12/14/2022 COMPR EHENS KECIA METAB OLIC PANEL glucose 109 mg/dL 70-99 high Not Available [facility] (Lab) [address] [place], [address], 12/14/2022 14:24:11 12/14/19 23 12/14/2022 COMPR EHENS KECIA METAB OLIC PANEL BUN 17 mg/dL 8-19 Not Available [facility] (Lab) [address] [place], [address], 12/14/2022 14:24:11 12/14/19 23 12/14/2022 COMPR EHENS KECIA METAB OLIC PANEL creatinine 1.74 mg/dL 0.66-1 .25 high Not Available [facility] (Lab) [address] [place], [address], 12/14/2022 14:24:11 12/14/19 23 12/14/2022 COMPR EHENS KECIA METAB OLIC PANEL GFR 29 Refer ence Range : [place] ge GFR Healt hy Adult : >60 [...] calcu lator is avail able on the [facility] websi te: [email or web address] :[email or web address] [email or web address] [email or web address] ofess ional s/kdo qi/gf r_cal culat or Not Available [facility] (Lab) [address] [place], [address], 12/14/2022 14:24:11 12/14/19 23 12/14/2022 COMPR EHENS KECIA METAB OLIC PANEL alkaline phosphatase 57 U/L 38-126 Not Available [facility] (Lab) [address] [place], [address], 12/14/2022 14:24:11 12/14/19 23 12/14/2022 COMPR EHENS KECIA METAB OLIC PANEL alanine aminotransfe rase 17 U/L 0-35 Not Available [facility] (Lab) [address] [place], [address], 12/14/2022 14:24:11 12/14/19 23 12/14/2022 COMPR EHENS KECIA METAB OLIC PANEL aspartate aminotransfe rase 26 U/L 15-37 Not Available [facility] (Lab) [address] [place], [address], 12/14/2022 14:24:11 12/14/19 23 12/14/2022 COMPR EHENS KECIA METAB OLIC PANEL bilirubin, total 0.60 mg/dL 0.20-1 .30 Not Available [facility] (Lab) [address] [place], [address], 12/14/2022 14:24:11 12/14/19 23 12/14/2022 COMPR EHENS KECIA METAB OLIC PANEL calcium 9.0 mg/dL 8.4-10 .2 Not Available [facility] (Lab) [address] [place], [address], 12/14/2022 14:24:11 12/14/19 23 12/14/2022 COMPR EHENS KECIA METAB OLIC PANEL total protein 7.7 g/dL 6.3-8. 2 Not Available [facility] (Lab) [address] [place], [address], 12/14/2022 14:24:11 12/14/19 23 12/14/2022 COMPR EHENS KECIA METAB OLIC PANEL albumin 4.3 g/dL 3.0-4. 4 Not Available [facility] (Lab) [address] [place], [address], 12/14/2022 14:24:11 12/14/19 23 12/14/2022 COMPR EHENS KECIA METAB OLIC PANEL globulin 3.4 g/dL 2.6-4. 2 Not Available [facility] (Lab) [address] [place], [address], 12/14/2022 14:24:11 12/14/19 23 12/14/2022 MICRO ALBUM N RNDM W/CRE AT RATIO ur creat 122.62 mg/dL REFER ENCE RANGE NOT ESTAB LISHE D FOR RANDO M URINE CREAT ININE Not Available [facility] (Lab) [address] [place], [address], 12/14/2022 13:55:12 12/14/19 23 12/14/2022 MICRO ALBUM N RNDM W/CRE AT RATIO microalbumin , urine 217.1 mg/L 0.0-16 .6 high Not Available [facility] (Lab) [address] [place], [address], 12/14/2022 13:55:12 12/14/19 23 12/14/2022 MICRO ALBUM [...] BRIANNA CARE, VOL. 26: S94-S 96, NOVUA 2002 Not Available [facility] (Lab) [address] [place], [address], 12/14/2022 13:55:12 03/07/20 23 03/07/2023 MICRO ALBUM N RNDM W/CRE AT RATIO ur creat 133.14 mg/dL REFER ENCE RANGE NOT ESTAB LISHE D FOR RANDO M URINE CREAT ININE Not Available [facility] (Lab) [address] [place], [address], 03/07/2023 14:32:57 03/07/20 23 03/07/2023 MICRO ALBUM N RNDM W/CRE AT RATIO microalbumin , urine 162.5 mg/L 0.0-16 .6 high Not Available [facility] (Lab) [address] [place], [address], 03/07/2023 14:32:57 03/07/20 23 03/07/2023 MICRO ALBUM [...] ENCE: DIABE BRIANNA CARE, VOL. 26: S94-S , 2002 Not Available [facility] (Lab) [address] [place], [address], 03/07/2023 14:32:57 03/07/20 23 03/07/2023 COMPR EHENS KECIA METAB OLIC PANEL sodium 138 mmol/ L 137-14 5 Not Available [facility] (Lab) [address] [place], [address], 03/07/2023 14:33:43 03/07/20 23 03/07/2023 COMPR EHENS KECIA METAB OLIC PANEL potassium 4.9 mmol/ L 3.5-5. 1 Not Available [facility] (Lab) [address] [place], [address], 03/07/2023 14:33:43 03/07/20 23 03/07/2023 COMPR EHENS KECIA METAB OLIC PANEL chloride 105 mmol/ L 98-107 Not Available [facility] (Lab) [address] [place], [address], 03/07/2023 14:33:43 03/07/20 23 03/07/2023 COMPR EHENS KECIA METAB OLIC PANEL carbon dioxide 26 mmol/ L 22-30 Not Available [facility] (Lab) [address] [place], [address], 03/07/2023 14:33:43 03/07/20 23 03/07/2023 COMPR EHENS KECIA METAB OLIC PANEL anion gap 11.9 mmol/ L 14-22 low Not Available [facility] (Lab) [address] [place], [address], 03/07/2023 14:33:43 03/07/20 23 03/07/2023 COMPR EHENS KECIA METAB OLIC PANEL glucose 119 mg/dL 70-99 high Not Available [facility] (Lab) [address] [place], [address], 03/07/2023 14:33:43 03/07/20 23 03/07/2023 COMPR EHENS KECIA METAB OLIC PANEL BUN 25 mg/dL 8-19 high Not Available [facility] (Lab) [address] [place], [address], 03/07/2023 14:33:43 03/07/20 23 03/07/2023 COMPR EHENS KECIA METAB OLIC PANEL creatinine 1.89 mg/dL 0.66-1 .25 high Not Available [facility] (Lab) [address] [place], [address], 03/07/2023 14:33:43 03/07/20 23 03/07/2023 COMPR EHENS KECIA METAB OLIC PANEL GFR 26 Refer ence Range : [place] ge GFR Healt hy Adult : >60 [...] or ethni c subgr oups, such as [facility] nics. Outsi de the valid ated [...] calcu lator is avail able on the [facility] websi te: https ://ww w.kid my.o rg/pr ofess ional s/kdo qi/gf r_cal culat or Not Available [facility] (Lab) [address] [place], [address], 03/07/2023 14:33:43 03/07/20 23 03/07/2023 COMPR EHENS KECIA METAB OLIC PANEL alkaline phosphatase 57 U/L 38-126 Not Available [facility] (Lab) [address] [place], [address], 03/07/2023 14:33:43 03/07/20 23 03/07/2023 COMPR EHENS KECIA METAB OLIC PANEL alanine aminotransfe rase 17 U/L 0-35 Not Available [facility] (Lab) [address] [place], [address], 03/07/2023 14:33:43 03/07/20 23 03/07/2023 COMPR EHENS KECIA METAB OLIC PANEL aspartate aminotransfe rase 29 U/L 15-37 Not Available [facility] (Lab) [address] [place], [address], 03/07/2023 14:33:43 03/07/20 23 03/07/2023 COMPR EHENS KECIA METAB OLIC PANEL bilirubin, total 0.70 mg/dL 0.20-1 .30 Not Available [facility] (Lab) [address] [place], [address], 03/07/2023 14:33:43 03/07/20 23 03/07/2023 COMPR EHENS KECIA METAB OLIC PANEL calcium 9.3 mg/dL 8.4-10 .2 Not Available [facility] (Lab) [address] [place], [address], 03/07/2023 14:33:43 03/07/20 23 03/07/2023 COMPR EHENS KECIA METAB OLIC PANEL total protein 7.5 g/dL 6.3-8. 2 Not Available [facility] (Lab) [address] [place], [address], 03/07/2023 14:33:43 03/07/20 23 03/07/2023 COMPR EHENS KECIA METAB OLIC PANEL albumin 4.2 g/dL 3.0-4. 4 Not Available [facility] (Lab) [address] [place], [address], 03/07/2023 14:33:43 03/07/20 23 03/07/2023 COMPR EHENS KECIA METAB OLIC PANEL globulin 3.3 g/dL 2.6-4. 2 Not Available [facility] (Lab) [address] [facility] [place], [address], 03/07/2023 14:33:43 03/07/20 23 03/07/2023 COMPR EHENS KECIA METAB OLIC PANEL A/G ratio 1.3 ratio 1.0-2. 0 Not Available [facility] (Lab) [address] [place], [address], 03/07/2023 14:33:43 03/07/2003/07/2023 PHOSP HORUS phosphorus 4.2 mg/dL 2.5-4. 5 Not Available [facility] (Lab) [address] [place], [address], 03/07/2023 14:33:47 03/07/20 23 03/07/2023 T4 FREE free T4 1.09 NG/dL 0.78-2 .19 Not Available [facility] (Lab) [address] [place], [address], 03/07/2023 14:39:37 03/07/2003/07/2023 T3 FREE free T3 2.4 pg/mL 2.77-5 .27 low Not Available [facility] (Lab) [address] [place], [address], 03/07/2023 14:39:46 03/07/20 23 03/07/2023 TSH thyroid-stim ulating hormone 11.000 uIU/m L 0.465- 4.680 high Not Available [facility] (Lab) [address] [place], [address], 03/07/2023 14:52:02 03/07/20 23 03/07/2023 HEMOG LOBIN A1C HA1C 6.3 % 4.0-6. 0 high Diabe brianna Scree giesle Crite pamela: <5.7% Consi stent with absen ce of diabe brianna 5.7-6 .4% Consi stent with incre ased risk for diabe brianna (pred iabet es) >OR=6 .5% Consi stent with diabe brianna REFER ENCE: Diabe brianna Care 2016, 39( ppl.1 ):s13 -s22 Not Available [facility] (Lab) [address] [place], [address], 03/07/2023 15:53:45 05/13/20 23 05/13/2023 COMPR EHENS KECIA METAB OLIC PANEL sodium 141 mmol/ L 137-14 5 Not Available [facility] (Lab) [address] [place], [address], 05/13/2023 14:34:25 05/13/20 23 05/13/2023 COMPR EHENS KECIA METAB OLIC PANEL potassium 4.4 mmol/ L 3.5-5. 1 Not Available [facility] (Lab) [address] [place], [address], 05/13/2023 14:34:25 05/13/20 23 05/13/2023 COMPR EHENS KECIA METAB OLIC PANEL chloride 101 mmol/ L 98-107 Not Available [facility] (Lab) [address] [place], [address], 05/13/2023 14:34:25 05/13/20 23 05/13/2023 COMPR EHENS KECIA METAB OLIC PANEL carbon dioxide 26 mmol/ L 22-30 Not Available [facility] (Lab) [address] [place], [address], 05/13/2023 14:34:25 05/13/20 23 05/13/2023 COMPR EHENS KECIA METAB OLIC PANEL anion gap 18.4 mmol/ L 14-22 Not Available [facility] (Lab) [address] [place], [address], 05/13/2023 14:34:25 05/13/20 23 05/13/2023 COMPR EHENS KECIA METAB OLIC PANEL glucose 93 mg/dL 70-99 Not Available [facility] (Lab) [address] [place], [address], 05/13/2023 14:34:25 05/13/20 23 05/13/2023 COMPR EHENS KECIA METAB OLIC PANEL BUN 16 mg/dL 8-19 Not Available [facility] (Lab) [address] [place], [address], 05/13/2023 14:34:25 05/13/20 23 05/13/2023 COMPR EHENS KECIA METAB OLIC PANEL creatinine 1.69 mg/dL 0.66-1 .25 high Not Available [facility] (Lab) [address] [place], [address], 05/13/2023 14:34:25 05/13/20 23 05/13/2023 COMPR EHENS KECIA METAB OLIC PANEL GFR 30 Refer ence Range : [place] ge GFR Healt hy Adult : >60 [...] calcu lator is avail able on the [facility] websi te: [email or web address] :[email or web address] [email or web address] [email or web address] lynch/pr ofess ional s/kdo qi/gf r_cal culat or Not Available [facility] (Lab) [address] [place], [address], 05/13/2023 14:34:25 05/13/20 23 05/13/2023 COMPR EHENS KECIA METAB OLIC PANEL alkaline phosphatase 58 U/L 38-126 Not Available [facility] (Lab) [address] [place], [address], 05/13/2023 14:34:25 05/13/20 23 05/13/2023 COMPR EHENS KECIA METAB OLIC PANEL alanine aminotransfe rase 16 U/L 0-35 Not Available [facility] (Lab) [address] [place], [address], 05/13/2023 14:34:25 05/13/20 23 05/13/2023 COMPR EHENS KECIA METAB OLIC PANEL aspartate aminotransfe rase 28 U/L 15-37 Not Available [facility] (Lab) [address] [place], [address], 05/13/2023 14:34:25 05/13/20 23 05/13/2023 COMPR EHENS KECIA METAB OLIC PANEL bilirubin, total 0.70 mg/dL 0.20-1 .30 Not Available [facility] (Lab) [address] [place], [address], 05/13/2023 14:34:25 05/13/20 23 05/13/2023 COMPR EHENS KECIA METAB OLIC PANEL calcium 9.3 mg/dL 8.4-10 .2 Not Available [facility] (Lab) [address] [place], [address], 05/13/2023 14:34:25 05/13/20 23 05/13/2023 COMPR EHENS KECIA METAB OLIC PANEL total protein 7.2 g/dL 6.3-8. 2 Not Available [facility] (Lab) [address] [place], [address], 05/13/2023 14:34:25 05/13/20 23 05/13/2023 COMPR EHENS KECIA METAB OLIC PANEL albumin 4.0 g/dL 3.0-4. 4 Not Available [facility] (Lab) [address] [place], [address], 05/13/2023 14:34:25 05/13/20 23 05/13/2023 COMPR EHENS KECIA METAB OLIC PANEL globulin 3.2 g/dL 2.6-4. 2 Not Available [facility] (Lab) [address] [place], [address], 05/13/2023 14:34:25 05/13/20 23 05/13/2023 COMPR EHENS KECIA METAB OLIC PANEL A/G ratio 1.3 ratio 1.0-2. 0 Not Available [facility] (Lab) [address] [place], [address], 05/13/2023 14:34:25 07/04/20 23 07/04/2023 LIPID PANEL cholesterol 165 mg/dL 140-19 9 NIH RHYS NSUS RECOM MENDA TION FOR JENNIFER STERO L: ADULT CHILD LOW RISK: <200 <170 BORDE RLINE : <200- 239 ----- HIGH RISK: >240 >200 Not Available [facility] (Lab) [address] [place], [address], 07/04/2023 13:44:14 07/04/20 23 07/04/2023 LIPID PANEL triglyceride s 173 mg/dL 0-150 high NIH RHYS NSUS REPOR T RECOM MENDA TION FOR TRIGL YCERI LINO: ADULT CHILD LOW RISK: <150 ----- BODER LINE: 150-1 99 ----- HIGH RISK: >200 ----- Not Available [facility] (Lab) [address] [place], [address], 07/04/2023 13:44:14 07/04/20 23 07/04/2023 LIPID PANEL HDL cholesterol 51 mg/dL 40- Not Available [facility] (Lab) [address] [place], [address], 07/04/2023 13:44:14 07/04/20 23 07/04/2023 LIPID PANEL [...] WILL NOT BE REPOR TERRY. Not Available [facility] (Lab) [address] [place], [address], 07/04/2023 13:44:14 07/04/20 23 07/04/2023 COMPR EHENS KECIA METAB OLIC PANEL sodium 140 mmol/ L 137-14 5 Not Available [facility] (Lab) [address] [place], [address], 07/04/2023 13:44:20 07/04/20 23 07/04/2023 COMPR EHENS KECIA METAB OLIC PANEL potassium 4.8 mmol/ L 3.5-5. 1 Not Available [facility] (Lab) [address] [facility] [place], [address], 07/04/2023 13:44:20 07/04/20 23 07/04/2023 COMPR EHENS KECIA METAB OLIC PANEL chloride 102 mmol/ L 98-107 Not Available [facility] (Lab) [address] [place], [address], 07/04/2023 13:44:20 07/04/20 23 07/04/2023 COMPR EHENS KECIA METAB OLIC PANEL carbon dioxide 29 mmol/ L 22-30 Not Available [facility] (Lab) [address] [place], [address], 07/04/2023 13:44:20 07/04/20 23 07/04/2023 COMPR EHENS KECIA METAB OLIC PANEL anion gap 13.8 mmol/ L 14-22 low Not Available [facility] (Lab) [address] [place], [address], 07/04/2023 13:44:20 07/04/20 23 07/04/2023 COMPR EHENS KECIA METAB OLIC PANEL glucose 99 mg/dL 70-99 Not Available [facility] (Lab) [address] [place], [address], 07/04/2023 13:44:20 07/04/20 23 07/04/2023 COMPR EHENS KECIA METAB OLIC PANEL BUN 24 mg/dL 8-19 high Not Available [facility] (Lab) [address] [place], [address], 07/04/2023 13:44:20 07/04/20 23 07/04/2023 COMPR EHENS KECIA METAB OLIC PANEL creatinine 1.83 mg/dL 0.66-1 .25 high Not Available [facility] (Lab) [address] [place], [address], 07/04/2023 13:44:20 07/04/20 23 07/04/2023 COMPR EHENS KECIA METAB OLIC PANEL GFR 27 Refer ence Range : [place] ge GFR Healt hy Adult : >60 [...] or ethni c subgr oups, such as [employer] nics. Outsi de the valid ated casper [...] calcu lator is avail able on the [facility] websi te: https :[email or web address] [email or web address] rg/pr ofess ional s/kdo qi/gf r_cal culat or Not Available [facility] (Lab) [address] [place], [address], 07/04/2023 13:44:20 07/04/20 23 07/04/2023 COMPR EHENS KECIA METAB OLIC PANEL alkaline phosphatase 70 U/L 38-126 Not Available [facility] (Lab) [address] [place], [address], 07/04/2023 13:44:20 07/04/20 23 07/04/2023 COMPR EHENS KECIA METAB OLIC PANEL alanine aminotransfe rase 16 U/L 0-35 Not Available [facility] (Lab) [address] [place], [address], 07/04/2023 13:44:20 07/04/20 23 07/04/2023 COMPR EHENS KECIA METAB OLIC PANEL aspartate aminotransfe rase 26 U/L 15-37 Not Available [facility] (Lab) [address] [place], [address], 07/04/2023 13:44:20 07/04/20 23 07/04/2023 COMPR EHENS KECIA METAB OLIC PANEL bilirubin, total 0.50 mg/dL 0.20-1 .30 Not Available [facility] (Lab) [address] [place], [address], 07/04/2023 13:44:20 07/04/20 23 07/04/2023 COMPR EHENS KECIA METAB OLIC PANEL calcium 9.2 mg/dL 8.4-10 .2 Not Available [facility] (Lab) [address] [place], [address], 07/04/2023 13:44:20 07/04/20 23 07/04/2023 COMPR EHENS KECIA METAB OLIC PANEL total protein 6.9 g/dL 6.3-8. 2 Not Available [facility] (Lab) [address] [place], [address], 07/04/2023 13:44:20 07/04/20 23 07/04/2023 COMPR EHENS KECIA METAB OLIC PANEL albumin 3.8 g/dL 3.0-4. 4 Not Available [facility] (Lab) [address] [place], [address], 07/04/2023 13:44:20 07/04/20 23 07/04/2023 COMPR EHENS KECIA METAB OLIC PANEL globulin 3.1 g/dL 2.6-4. 2 Not Available [facility] (Lab) [address] [place], [address], 07/04/2023 13:44:20 07/04/20 23 07/04/2023 COMPR EHENS KECIA METAB OLIC PANEL A/G ratio 1.2 ratio 1.0-2. 0 Not Available [facility] (Lab) [address] [place], [address], 07/04/2023 13:44:20 07/04/20 23 07/04/2023 T4 FREE free T4 0.92 NG/dL 0.78-2 .19 Not Available [facility] (Lab) [address] [place], [address], 07/04/2023 14:08:54 07/04/20 23 07/04/2023 T3 FREE free T3 3.4 pg/mL 2.77-5 .27 Not Available [facility] (Lab) [address] [place], [address], 07/04/2023 14:08:59 [id number]|2025-03-21 10:50:00|2025-03-21 10:50:00|XMS_ITS|BKG DAEMON|External Medical Summaries|[id number]|" Referral Summary Created on: March 21, 2025 Jacy Mills : 1945 Sex: Female Author Organization [facility] Address [address] [place] [id number] Care Team Providers Care Recreation Attendant Supervisor Name Role Phone Waqas De Leon MD Unavailable [phone] Waqas De Leon MD Unavailable [phone] Cortney Corona MD Unavailable Jn Velásquez MD Primary Care Provider [phone] Miscellaneous, Not In File Unavailable Unava ilDaniel Mckeon MD Unavailable [phone] James Cifuentes MD Unavailable Encounters Date Type Department Care Team Description 01/18/2025 Telephone [facility] Rheumatology [address] 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 Fitch at [facility] on 06/28 Acute pulmonary edema [...] on room air- transition to torsemide per machine brusher, add low dose potassium supplement. Continue to [...] x- ray. Chronic respiratory failure with hypercapnia 09/07/2022 Assessment & Plan (05/24/2022 7:30 AM [...] often do you attend chur ch or confucianist services? Never 05/31/2023 Do you belong to any clubs o r organizations such as holiness groups, unions, fraternal or athletic groups, or [...] place to sleep or slept in a fci (including now)? No 05/31/2023 Personal Safety Answer Date Recorded Have you ever been in or are you currently in a harmful physical or emotional relationship or is someone making you feel afraid or unsafe? Denies 05/30/2023 Comments Unknown Sex and Gender Information Value Date Recorded Sex Assigned at Not on file Legal Sex Female 7:23 PM [employer] Gender Identity Not on file Sexual Orientation Not on file Last Filed Vital Signs Vital Sign Reading Time Taken Comments Blood Pressure 123/61 10/10/2024 1:09 PM [employer] Pulse 70 10/10/2024 1:09 PM [employer] Temperature 36.7 C (98 F) 10/10/2024 1:09 PM [employer] Respiratory Rate 20 06/01/2023 11:31 AM CDT Oxygen Saturation 88% 08/10/2024 10:08 AM CDT Inhaled Oxygen Concentration - - Weight 106 kg (233 lb 9.6 oz) 10/10/2024 1:09 PM [employer] Height 156.2 cm (5' 1.5 ) 10/10/2024 1:09 PM [employer] Body Mass Index 43.42 10/10/2024 1:09 PM [employer] Plan of Treatment Not on file Procedures Procedure Name Priority Date/Time Associated Diagnosis Comments HEPATITIS PANEL, ACUTE Routine 08/10/2024 12:01 PM CDT Interstitial pulmonary disease (HCC) from Last 3 Months or Most Recently Relevant to Health Maintenance Results * Hepatitis panel, acute Blood (08/10/2024 12:01 PM CDT) Hep A IgM Nonreactive Nonreactive Hep B core IgM Nonreactive Nonreactive [facility] Hep C Ab Nonreactive Nonreactive [facility] Comment:Antibodies to HCV no t detected. Does NOT exclude the possibility of recent exposure to HCV. Current interpretive data was last revised on 22 HepBsAg Nonreactive Nonreactive [facility] Blood 08/10/2024 12:0 1 PM CDT 08/10/2024 2:23 PM CDT Zarina Carroll MD LAB MICROBIOLOGY - GENERAL ORDER TATO Final Result [facility] [place] [address] from Last 3 Months or Most Recently Relevant to Health Maintenance Insurance [facility] MEDICARE ADVANTAGE IDPA [facility] MEDICARE ADVANTAGE IDPA [facility] MEDICARE ADVANTAGE IDPA Advance Directives For more information, please contact: [phone] * Full Code (Latest Code Status on File) Date Activated Date Inactivated Comments 05/30/2023 2:42 AM 06/01/2023 6:25 PM * Full Code Date Activated Date Inactivated Comments 05/30/2023 12:31 AM 05/30/2023 2:42 AM * Full Code Date Activated Date Inactivated Comments 05/05/2022 2:33 PM 05/14/2022 7:09 PM Care Teams 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
--- OUTSIDE RECORDS SUMMARY | 2025-03-21 10:50 | XMS_ITS | Clinical Summary ---
Author Organization [facility] Address [address], [place] [address] Phone Care Team Providers Care Cashier Assistant Name Role Phone Jn Velásquez MD Primary Care Provider [phone] Allergies Active Allergy Reactions Criticality Noted Date [...] 0 Active ergocalciferol (VITAMIN D2) 1.25 MG (77180 UT) capsule Take 50,000 Units by mouth [...] on file Legal Sex Female 8:46 AM [facility] Gender Identity Not on file Sexual Orientation [...] Vaccine (Season Ended) 2025 Insurance MEDICAID - [place] [employer] MEDICARE Care Teams Cashier Assistant Relationship Specialty Start Date End Date Jn Velásquez MD [address] [place] [address] PCP - General Internal Medicine 06/18/20
--- OUTSIDE RECORDS SUMMARY | 2025-03-21 10:50 | XMS_ITS | Encounter Summary ---
Author Organization [facility] Address [address] [place] [address] Phone Care Team Providers Care Hvac Service Manager Name Role Phone Jn Velásquez MD Primary Care Provider [phone] Waqas De Leon MD Unavailable [phone] Waqas De Leon MD Unavailable [phone] Cortney Corona MD Unavailable [phone] Stephanie Morrissey MD Primary Care Provider [phone] Jn Velásquez MD Primary Care Provider [phone] Miscellaneous, Not In File Unavailable Unava ilable Daniel Go MD Unavailable [phone] James Cifuentes MD Unavailable [phone] Encounter Details Date Type Department Care Team [...] often do you attend chur ch or rastafarian services? Never 05/04/2022 Do you belong to any clubs o r organizations such as mandaeism groups, unions, fraternal or athletic groups, or [...] place to sleep or slept in a intermediate (including now)? No 05/04/2022 Comments Unknown Sex and Gender Information Value Date Recorded Sex Assigned at Not on file Legal Sex Female 7:23 PM AMALGAMATOR Gender Identity Not on file Sexual Orientation [...] documented as of this encounter Care Teams Hvac Service Manager Relationship Specialty Start Date End Date [...] Daniel Go MD [address] [place] [address] Consulting Physician Interventional Cardiology 05/31/23 [place] [address] [facility] [address] [place] [address] Consulting Physician Pulmonary Disease 05/31/23 documented as of this encounter
--- OUTSIDE RECORDS SUMMARY | 2025-03-21 10:50 | XMS_ITS | Encounter Summary ---
Author Organization [facility] Address [address] [place] [address] Phone Care Team Providers Care Chore Tender Name Role Phone Jn Velásquez MD Primary Care Provider [phone] Waqas De Leon MD Unavailable [phone] Waqas De Leon MD Unavailable [phone] Cortney Corona MD Unavailable [phone] Stephanie Morrissey MD Primary Care Provider [phone] Jn Velásquez MD Primary Care Provider [phone] Miscellaneous, Not In File Unavailable Unava ilDaniel Mckeon MD Unavailable [phone] James Cifuentes MD Unavailable [phone] Encounter Details Date Type Department Care Team [...] on file Legal Sex Female 7:23 PM SUPERVISING DEPUTY Gender Identity Not on file Sexual Orientation [...] documented as of this encounter Care Teams Chore Tender Relationship Specialty Start Date End Date [...] 05/31/23 Daniel Go MD [address] [place] [address] Consulting Physician Interventional Cardiology 05/31/23 [place] [address] [facility] [address] [place] [address] Consulting Physician Pulmonary Disease 05/31/23 documented as of this encounter
--- OUTSIDE RECORDS SUMMARY | 2025-03-21 10:50 | XMS_ITS | Clinical Summary ---
Author Organization [facility] [facility] on Address [address] [address] Phone Care Team Providers Care Daytime Caregiver Name Role Phone Unavailable Primary Care Provider [...]
--- OUTSIDE RECORDS SUMMARY | 2025-03-21 10:50 | XMS_ITS | Clinical Summary ---
Author Organization [facility] Address [facility] [place] [address] Care Team Providers Care Ore Grader Name Role Phone Unavailable Primary Care Provider [...]
--- OUTSIDE RECORDS SUMMARY | 2025-03-21 10:50 | XMS_ITS | Clinical Summary ---
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 Fitch at [facility] on 06/28 Acute pulmonary edema [...] on room air- transition to torsemide per donor center technician, add low dose potassium supplement. Continue to [...] Type Department Care Team Description 01/18/2025 Telephone [facility] Rheumatology [address] [place] [id number] Zarina Carroll MD Discuss Test Results 01/14/2025 Telephone [facility] Endocrinology Metabolism and Lipid [address] [place] [address] [place] [address] Nahed Santoro RMA Appointment (Referral from [facility]) from Last 3 Months Surgical History Surgery [...] How often do you attend chur or temple services? Never 05/31/2023 Do you belong to any clubs o r organizations such as alevism groups, unions, fraternal or athletic groups, or [...] slept in a prison (including now)? No 05/31/2023 Personal Safety Answer Date Recorded Have you ever been in or are you currently in a harmful physical or emotional relationship or is someone making you feel afraid or unsafe? Denies 05/30/2023 Comments Unknown Sex and Gender Information Value Date Recorded Sex Assigned at Not on file Legal Sex Female 7:23 PM MEDICAL STENOGRAPHER Gender Identity Not on file Sexual Orientation Not on file Obstetrics History Last Filed Vital Signs Vital Sign Reading Time Taken Comments Blood Pressure 123/61 10/10/2024 1:09 PM MEDICAL STENOGRAPHER Pulse 70 10/10/2024 1:09 PM MEDICAL STENOGRAPHER Temperature 36.7 C (98 F) 10/10/2024 1:09 PM MEDICAL STENOGRAPHER Respiratory Rate 20 06/01/2023 11:31 AM CDT Oxygen Saturation 88% 08/10/2024 10:08 AM CDT Inhaled Oxygen Concentration - - Weight 106 kg (233 lb 9.6 oz) 10/10/2024 1:09 PM MEDICAL STENOGRAPHER Height 156.2 cm (5' 1.5 ) 10/10/2024 1:09 PM MEDICAL STENOGRAPHER Body Mass Index 43.42 10/10/2024 1:09 PM MEDICAL STENOGRAPHER Plan of Treatment Health Maintenance Due Date [...] Nonreactive Hep B core IgM Nonreactive Nonreactive [facility] Hep C Ab Nonreactive Nonreactive [facility] Comment:Antibodies to HCV no t detected. Does NOT exclude the possibility of recent exposure to HCV. Current interpretive data was last revised on 22 HepBsAg Nonreactive Nonreactive [facility] Blood 08/10/2024 12:0 1 PM CDT 08/10/2024 2:23 PM CDT Zarina Carroll MD LAB MICROBIOLOGY - GENERAL ORDER TATO Final Result [facility] Department [place] [address] from Last 3 Months or Most Recently Relevant to Health Maintenance Insurance [address] [place] [id number] [facility] MEDICARE ADVANTAGE [facility] MEDIC[facility] Address: [address] [address] [place] [id number] IDNM [facility] MEDICARE ADVANTAGE [facility] Address: [address] [address] [place] [address] IDPA [facility] MEDICARE ADVANTAGE [facility] MEDICARE Address: [address] [address] [place] [address] IDNM Advance Directives For more information, please contact: [phone] * Full Code (Latest Code Status on File) Date Activated Date Inactivated Comments 05/30/2023 2:42 AM 06/01/2023 6:25 PM * Full Code Date Activated Date Inactivated Comments 05/30/2023 12:31 AM 05/30/2023 2:42 AM * Full Code Date Activated Date Inactivated Comments 05/05/2022 2:33 PM 05/14/2022 7:09 PM Care Teams Drafter Electromechanical Relationship Specialty Start Date End Date Jn Velásquez MD PCP - General Family Medicine 05/29/23 Waqas De Leon MD Internal Medicine 11/20/21 Waqas De Leon MD Internal Medicine 06/06/19 Cortney Corona MD Referring Physician Surgery 05/14/22 Miscellaneous, Not In File 05/31/23 Daniel Go MD [address] [place] [address] Consulting Physician Interventional Cardiology 05/31/23 [place] [address] [facility] [address] [place] [address] Consulting Physician Pulmonary Disease 05/31/23
--- NOTE | 2025-03-21 11:12 | ECG_ITS ---
Test Date: 2025-03-21 11:32:59 Measurements Intervals Briggs Rate: 68 P: 24 NC: 213 QRS: -41 QRSD: 116 T: 112 QT: 409 QTc: 436 Interpretive Statements SINUS RHYTHM WITH FIRST DEGREE AV BLOCK LEFT ANTERIOR FASCICULAR BLOCK LEFT VENTRICULAR HYPERTROPHY AND ST-T CHANGE [VOLTAGE CRITERIA PLUS ST/T ABNORMALITY] POSSIBLE ANTERIOR MYOCARDIAL INFARCTION , OF INDETERMINATE AGE [30 ms Q WAVE IN V3/V4, OR R < 0.2 mV IN V4] ABNORMAL ECG Compared to ECG 02/13/2025 13:31:45 First degree AV block now present ST (T wave) deviation still present Myocardial infarct finding still present Electronically Signed On 03-22-2025 09:40:24 CDT by Kingston Hanson M.D.
--- NOTE | 2025-03-21 11:13 | ED.SOB ---
HPI - SOB/Dyspnea General Chief Complaint: Shortness of Breath/Dyspnea Stated Complaint: SOB Time Seen by Provider: 03/21/25 10:45 History of Present Illness HPI Narrative: 79-year-old female with history of diastolic dysfunction, hypertension, hyperlipidemia, hypothyroidism, GERD presents to the emergency department for multiple medical complaints. Patient states she has had chronic shoulder, elbow, hip and the pain for several years. States she feels her pain is continuing to progress. She states the pain in her shoulders is worse with abduction and when she tries to pull up her pants. She denies injury or trauma and states she has had imaging of her joints in the past. She followed up with several specialists including her labor commissioner and PCP about this and recently had an outpatient bone density scan performed. States she has been having difficulty finding out the results of her bone density scan which is causing her anxiety. Over the past couple of days she has had increase in her anxiety and panic attacks. She reports episodes of difficulty breathing. She does have a history of COPD and has had it increase in her productive cough. She also knows she has longstanding lower extremity edema which is unchanged from baseline. She has been taking her Lasix as directed. She reports associated orthopnea. She denies chest pain, fever, abdominal pain. She notes she has seen several specialists about her chronic joint plane including rheumatology. She has been diagnosed with an elevated JOSE but has not been diagnosed with specific autoimmune disorder. She notes her pain improves when she takes steroids, however she was also told by one of her specialists that she should be careful taking steroids because she may have Percy's syndrome. Related Data Home Medications Medication Instructions Recorded Confirmed Last Taken Type amlodipine 5 mg tablet 5 mg PO DAILY 09/21/22 02/13/25 02/12/25 History oxybutynin chloride 10 mg 10 mg PO HS 09/21/22 02/13/25 02/12/25 History tablet,extended release 24 hr magnesium oxide 400 mg PO BID 09/15/23 02/13/25 02/12/25 History pregabalin 200 mg capsule 200 mg PO BID 09/15/23 02/13/25 02/12/25 History rosuvastatin 10 mg tablet 10 mg PO HS 09/15/23 02/13/25 02/12/25 History vortioxetine 20 mg tablet 20 mg PO DAILY 09/15/23 02/13/25 02/12/25 History (Trintellix) furosemide 20 mg tablet 20 mg PO DAILY 12/07/23 02/13/25 02/12/25 History minoxidil 2.5 mg tablet 2.5 mg PO DAILY 12/04/24 02/13/25 02/12/25 History hydrocodone 10 mg-acetaminophen 1 tablet PO Q6H PRN pain 02/13/25 02/13/25 02/12/25 History 325 mg tablet levothyroxine 75 mcg tablet 75 mcg PO 0100 02/13/25 02/13/25 02/12/25 History (Unithroid) Allergies Allergy/AdvReac Type Severity Reaction Status Date / Time NILTON Inhibitors Allergy Unknown Angioedema Verified 03/21/25 10:05 lisinopril Allergy Dyspnea / Verified 03/21/25 10:05 SOB Review of Systems Review of Systems: All systems reviewed & are unremarkable except as noted in HPI and below PMFSH Past Medical History Medical History Diastolic dysfunction Aortic valve stenosis Obstructive sleep apnea Stage 3b chronic kidney disease Gastroesophageal reflux disease Hyperlipidemia Hypertension Thyroid cancer Primary insomnia Anemia Carpal tunnel syndrome Kidney stones Anxiety Depression Hypothyroidism Arthritis Hiatal hernia Asthma Chronic obstructive pulmonary disease Surgical History Surgical History History of lumbosacral spine surgery History of elbow surgery bilateral cubital tunnel release History of hysterectomy History of cholecystectomy History of permanent cardiac pacemaker placement History of cataract extraction History of total thyroidectomy History of carpal tunnel release Family History Family History Father Family history of heart disease in male family member before age 55 Family history of malignant neoplasm of brain Hypertension Pulmonary disease Mother Family history of heart disease in male family member before age 55 Family history of diabetes mellitus in first degree relative Social History Social History Social History: Surrogate medical decision maker: Neena Hazel, granddaughter. Code status: Full code. Smoking packs per day: 1 Smoking cigarettes per day: 20.0 Years smoked: 50 Smoking pack-years: 50.00 Smoking status: Former smoker Tobacco type: cigarettes Alcohol intake: never Substance use: never Substance use type: does not use Do You Feel Safe in your Home?: Yes Lack of Transportation: No Lack of Food: Never True Current Housing: I Have Housing Concerned About Future Housing: No Difficulty Paying Gas/Electric Bills: No Difficulty Paying for Meds: No Currently Unemployed: No Education: Decline to Answer Difficulty w/ Childcare or Family Care: No Living arrangements: alone Additional living arrangements comments: The patient lives in her own home in [place]. 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: No Exam Narrative: GENERAL: Well-appearing, well-nourished, and in no acute distress. HEAD: Normocephalic, atraumatic. EYES: EOMI. ENT: Nares clear, no rhinorrhea or epistaxis. Mucous membranes moist. NECK: Supple. CHEST: Diffuse rhonchi and coarse lung sounds throughout. No wheezing or rales. Patient satting 95% on room air in no respiratory distress and speaking in full sentences HEART: Regular rate and rhythm. No murmur heard. Normal peripheral pulses. ABDOMEN: Soft, nontender, nondistended, normal active bowel sounds. EXTREMITIES: 1+ pitting edema bilateral lower extremities with no overlying erythema or warmth. Limited abduction to bilateral shoulders SKIN: Warm, dry, no rash. NEURO: No focal deficits. Alert and oriented x3 Course Vital Signs Vital signs: Vital Signs Temperature 97.6 F 03/21/25 10:06 Pulse Rate 73 03/21/25 10:06 Respiratory Rate 20 03/21/25 10:06 Blood Pressure 152/71 H 03/21/25 10:06 Pulse Oximetry 97 03/21/25 10:06 Oxygen Delivery Room Air 03/21/25 10:06 Temperature 97.6 F 03/21/25 10:06 Pulse Rate 76 03/21/25 14:59 Respiratory Rate 20 03/21/25 14:59 Blood Pressure 128/52 L 03/21/25 14:59 Pulse Oximetry 96 03/21/25 14:59 Oxygen Delivery Room Air 03/21/25 14:59 Oxygen Flow Rate 2 03/21/25 13:39 MDM - SOB/Dyspnea MDM Narrative Medical decision making narrative: 79-year-old female with history of COPD, hypothyroidism, hypertension, diastolic dysfunction presents emergency department for anxiety, cough, shortness of breath, diffuse chronic joint pain. See HPI for further history. Triage vitals with elevated blood pressure, otherwise unremarkable. Patient is afebrile and nontoxic appearing. Exam is significant for the above. Lab work shows no leukocytosis or anemia. Chemistries show CKD. EKG shows sinus rhythm with first-degree AV block with a NJ interval of 213, normal QRS duration, normal QTC, possible Q-waves in inferior leads which are unchanged from prior, no ST elevations or depressions. Troponin is undetectable. Chest x-ray shows bilateral interstitial infiltrates with consolidation of the right lower lung which may represent pneumonia versus atelectasis versus edema. CT chest obtained for further clarification mild chronic interstitial disease and probable superimposed atelectasis or scarring of the right middle lobe. Findings overall her approved for prior exam. BMP is within normal limits. Patient does have an elevated ESR of 48 and CRP 1.2. Patient was updated on results. She received an hour long DuoNeb, Solu-Medrol and Ativan with improvement in symptoms overall. She is requesting to be discharged home. Lung sounds have significantly improved. Vital signs remained stable. I suspect a component of anxiety regarding her health and COPD exacerbation. I also am wondering if she has polymyalgia rheumatica vs other rheumatologic condition. Will start her on short course of steroids and Augmentin for COPD exacerbation, steroids will also provide relief for joint pain. Encouraged her to continue using her nebulizers and albuterol inhaler. Hydroxyzine provided for anxiety. I advised her to follow-up closely with her PCP, senior industrial engineer and stranding machine operator and discussed strict ED return precautions. She is agreeable with the plan verbalized understanding. Discharged in stable condition. Lab Data 03/21/25 11:44 03/21/25 11:44 Labs: Lab Results 03/21/25 Range/Units 11:44 WBC 7.7 (4.5-10.0) K/mm3 RBC 4.74 (4.2-5.4) M/mm3 Hgb 12.5 (12.0-15.0) g/dL Hct 42.3 (37.0-47.0) % MCV 89.2 (80-100) fl MCH 26.4 (26-34) pg MCHC 29.6 L (32-36) g/dl RDW 15.2 H (11.5-14.5) % Plt Count 207 (150-375) k/mm3 MPV 10.4 (7.4-10.4) fl Immature Gran % (Auto) 0.9 H (0-0.5) % Neut % (Auto) 63.5 (45.5-73.1) % Lymph % (Auto) 16.2 L (18.3-44.2) % Solano % (Auto) 13.9 H (2.6-8.5) % Eos % (Auto) 4.3 (0-4.4) % Baso % (Auto) 1.2 (0.2-1.2) % Lymph # (Auto) 1.24 (0.9-3.2) K/mm3 Solano # (Auto) 1.1 H (0.1-0.6) K/mm3 Eos # (Auto) 0.3 (0-0.3) K/mm3 Baso # (Auto) 0.1 (0.0-0.1) K/mm3 Abs Immat Gran (auto) 0.07 H (0.00-0.031) K/mm3 Absolute Neuts (auto) 4.9 (1.3-6.7) K/mm3 Absolute Nucleated RBC 0.000 (0.0-0.012) K/mm3 Band Neutrophils % Not Reportable Nucleated RBC % 0.0 (0.0-0.2) % Platelet Estimate Adequate (Adequate) Hypochromasia 1+ Schistocytes None seen ESR 48 H (0-20) mm/hr PT 13.7 (11.1-14.7) Seconds INR 1.0 APTT 27.2 (22.3-36.8) Seconds Sodium 142 (137-145) mmol/L Potassium 3.9 (3.4-5.0) mmol/L Chloride 103 (98-107) mmol/L Carbon Dioxide 32 H (22-30) mmol/L Anion Gap 7 (4-12) mmol/L BUN 23 H (7-17) mg/dL Creatinine 1.90 H (0.7-1.0) mg/dL Estim Creat Clear Calc 26 ml/min Estimated GFR 26 L (59 - ) Glucose 104 (65-110) mg/dL Calcium 9.0 (8.4-10.2) mg/dL Magnesium 2.5 H (1.6-2.3) mg/dL Total Bilirubin 0.7 (0.2-1.3) mg/dL AST 30 (14-36) U/L ALT 16 (6-35) U/L Alkaline Phosphatase 73 (38-126) U/L Troponin I < 0.012 (0.000-0.034) ng/mL C-Reactive Protein 1.2 H (<1.0) mg/dL NT-Pro-B Natriuret Pep 92 (19.9-100) pg/mL Total Protein 7.0 (6.3-8.2) g/dL Albumin 4.0 (3.5-5.1) g/dL Discharge Plan Discharge Clinical Impression: Acute exacerbation of chronic obstructive pulmonary disease, Anxiety about health, Polyarthralgia Patient Disposition: Home Condition: Stable Instructions: Antibiotic Form, COPD (Chronic Obstructive Pulmonary Disease) (DC), Arthralgia (ED), Anxiety (ED) Additional Instructions: Please take the medications as directed. Continue using her nebulizer treatments as directed by a your senior industrial engineer. Take hydroxyzine as needed for anxiety. Follow-up closely with your primary care provider. Return to the emergency department if you develop chest pain, shortness of breath, fever, or other concerning symptoms. Patient Language: Spanish Prescriptions: New amoxicillin-pot clavulanate 875-125 mg tablet 1 tablet PO Q12H Qty: 14 0RF prednisone 20 mg tablet 40 mg PO DAILY Qty: 10 0RF hydroxyzine HCl 25 mg tablet 25 mg PO QID PRN (Reason: anxiety) Qty: 14 0RF No Action pregabalin 200 mg capsule 200 mg PO BID rosuvastatin 10 mg tablet 10 mg PO HS magnesium oxide 400 mg magnesium tablet 400 mg PO BID Trintellix 20 mg tablet 20 mg PO DAILY budesonide 0.5 mg/2 mL suspension for nebulization 0.5 mg inhalation DAILY Qty: 60 3RF furosemide 20 mg tablet 20 mg PO DAILY minoxidil 2.5 mg tablet 2.5 mg PO DAILY oxybutynin chloride 10 mg Tablet Extended Release 24hr 10 mg PO HS amlodipine 5 mg Tablet 5 mg PO DAILY albuterol sulfate 90 mcg/actuation HFA aerosol inhaler 2 puff inhalation QID PRN (Reason: shortness of breath or wheezing) Qty: 8.5 0RF hydrocodone-acetaminophen 10-325 mg tablet 1 tablet PO Q6H PRN (Reason: pain) levothyroxine [Unithroid] 75 mcg tablet 75 mcg PO 0100 azithromycin [Zithromax] 250 mg Tablet 500 mg PO DAILY Qty: 8 0RF prednisone 20 mg Tablet 40 mg PO DAILY@0800 Qty: 8 0RF loratadine 10 mg Tablet 10 mg PO QHS Qty: 30 0RF guaifenesin [Mucus Relief ER] 600 mg Tablet Extended Release 12hr 1,200 mg PO Q12HR Qty: 30 0RF albuterol sulfate 2.5 mg /3 mL (0.083 %) solution for nebulization 2.5 mg inhalation Q4-6H PRN (Reason: shortness of breath or wheezing) Qty: 180 2RF dapagliflozin propanediol [Farxiga] 10 mg tablet 10 mg PO DAILY Qty: 30 12RF ipratropium-albuterol 0.5 mg-3 mg(2.5 mg base)/3 mL solution for nebulization 3 ml inhalation QID Qty: 180 6RF Mounjaro 5 mg/0.5 mL pen injector 5 mg subcut WEEKLY Qty: 6 0RF Follow-up/Referrals: Roberto Carlos Ramsey MD [Primary Care Provider] -
[2025-03-21] MEDS: IPRATROPIUM 0.5 MG/ALBUTEROL SULFATE 2.5 MG AMPUL.NEB 3 ML INHALATION ×3 (11:24→11:25)
[2025-03-21] MEDS: methylPREDNISolone SOD SUCC 125 MG VIAL IV PUSH (11:46)
[2025-03-21 12:01] LABS: Basophils Absolute Auto 0.1 K/mm3 (0.0-0.1); Basophils Percent Auto 1.2 % (0.2-1.2); Eosinophils Absolute Auto 0.3 K/mm3 (0-0.3); Eosinophils Percent Auto 4.3 % (0-4.4); Hematocrit 42.3 % (37.0-47.0); Hemoglobin 12.5 g/dL (12.0-15.0); Immature Granulocyte Absolute 0.07 K/mm3 (0.00-0.031); Immature Granulocyte Percent A 0.9 % (0-0.5); Lymphocytes Absolute Auto 1.24 K/mm3 (0.9-3.2); Lymphocytes Percent Auto 16.2 % (18.3-44.2); Mean Corpuscular HGB Conc 29.6 g/dl (32-36); Mean Corpuscular Hemoglobin 26.4 pg (26-34); Mean Corpuscular Volume 89.2 fl (80-100); Mean Platelet Volume 10.4 fl (7.4-10.4); Monocytes Absolute Auto 1.1 K/mm3 (0.1-0.6); Monocytes Percent Auto 13.9 % (2.6-8.5); Neutrophils Absolute Auto 4.9 K/mm3 (1.3-6.7); Neutrophils Percent Auto 63.5 % (45.5-73.1); Platelet Count Result 207 k/mm3 (150-375); Red Blood Count 4.74 M/mm3 (4.2-5.4); Red Cell Distribution Width 15.2 % (11.5-14.5); White Blood Count 7.7 K/mm3 (4.5-10.0)
[2025-03-21 12:10] LABS: Alanine Aminotransferase 16 U/L (6-35); Alkaline Phosphatase 73 U/L (38-126); Anion Gap 7 mmol/L (4-12); Aspartate Amino Transferase 30 U/L (14-36); Bilirubin,Total 0.7 mg/dL (0.2-1.3); Blood Urea Nitrogen 23 mg/dL (7-17); Carbon Dioxide 32 mmol/L (22-30); Chloride 103 mmol/L (98-107); Estimated CRCL calculation 26 ml/min; Estimated Glomerular Filt Rate 26; Glucose 104 mg/dL (65-110); Magnesium 2.5 mg/dL (1.6-2.3); Potassium 3.9 mmol/L (3.4-5.0); Sodium 142 mmol/L (137-145)
[2025-03-21 12:12] LABS: Partial Thromboplastin Time 27.2 Seconds (22.3-36.8); Prothrombin Time 13.7 Seconds (11.1-14.7)
[2025-03-21 12:22] LABS: NT Pro B Type Natriuretic Pept 92 pg/mL (19.9-100); Troponin I < 0.012 ng/mL (0.000-0.034)
[2025-03-21 12:27] LABS: Hypochromasia 1+; Platelet Estimate Adequate (Adequate); Schistocytes None Seen
[2025-03-21 12:30] LABS: CRP 1.2 mg/dL (<1.0); Erythrocyte Sedimentation Rate 48 mm/hr (0-20)
[2025-03-21] MEDS: AMOXICILLIN/CLAVULANATE K 875-125 MG TAB 1 TABLET PO (14:51)
== END 2025-03-21 15:01 | disposition home or self-care (01) ==
PROVIDERS: Emergency Provider Physician Assistant; PCP Internal Medicine Cardiovascular Disease
DX: J44.1 Chronic obstructive pulmonary disease with (acute) exacerbation (principal); M25.50 Pain in unspecified joint; E78.5 Hyperlipidemia, unspecified; E03.9 Hypothyroidism, unspecified; K21.9 Gastro-esophageal reflux disease without esophagitis; N18.32 Chronic kidney disease, stage 3b; I12.9 Hypertensive chronic kidney disease with stage 1 through stage 4 chronic kidney disease, or unspecified chronic kidney disease; Z85.850 Personal history of malignant neoplasm of thyroid; F41.8 Other specified anxiety disorders; Z87.891 Personal history of nicotine dependence
CPT/HCPCS: 36415; 71045; 71250; 80053; 83735; 83880; 84484; 85025; 85610; 85652; 85730; 86140; 93005; 94640; 96374; 99284; A9270; J2919

== ENCOUNTER 2025-03-22 13:14 | Inpatient (IN) | payer MEDICARE, MEDICAID, SELFPAY ==
[2025-03-22] VITALS (17 sets, daily range): BP systolic 111–136; BP diastolic 49–102; PULSE 88–102; RESP 16–26; TEMP 36.3–37.3; O2SAT 21–95; BMI 43.8
--- NOTE | ~2025-03-22 | XR_ITS ---
XR chest 1V portable 03/22/2025 14:42 Indication: Shortness of breath Procedure: AP portable chest Comparison: Comparison to multiple prior studies sequentially, with oldest reviewed study dated 07/2025. Findings: Heart size normal. There are interstitial infiltrates of the left mid and lower lung, suspi cious for pneumonia. Interval resolution of consolidation in the right lower lung. Impression: 1: Persistent interstitial infiltrates of the left mid and lower lung, suspicious for pneumonia versu s asymmetric edema. Reviewed, dictated and finalized at location A. Impression: 1: Persistent interstitial infiltrates of the left mid and lower lung, suspicio us for pneumonia versus asymmetric edema.
--- OUTSIDE RECORDS SUMMARY | 2025-03-22 13:50 | XMS_ITS | Encounter Summary ---
Author Organization [facility] Healthcare Address [address] [place] [address] Care Team Providers Care Plater Barrel Name Role Phone Waqas De Leon MD Unavailable [phone] Waqas De Leon MD Unavailable [phone] Cortney Corona MD Unavailable [phone] Jn Velásquez MD Primary Care Provider [phone] Miscellaneous, Not In File Unavailable Unava ilDaniel Mckeon MD Unavailable [phone] James Cifuentes MD Unavailable Reason for Visit * Reason Comments Shortness of Breath Encounter Details Date Type Department Care Team (Late st Contact Info) Description 03/22/2025 12:29 AM CDT - 03/22/2025 1:05 AM T Emergency [facility] Emergency Department [address] [place] [address] [phone] Discharge Disposition: Left Against Medical Advice Social History Tobacco Use Types Packs/Day Years Used Date Smoking Tobacco: Former Cigarettes 1 53 1 2019 Smokeless Tobacco: Never Alcohol Use Standard Drinks/Week [...] often do you attend chur ch or pentecostal services? Never 05/31/2023 Do you belong to any clubs o r organizations such as shinto groups, unions, fraternal or athletic groups, or [...] making you feel afraid or unsafe? Denies 03/21/2025 Comments No Sex and Gender Information Value Date Recorded Sex Assigned at Not on file Legal Sex Female 7:23 PM [employer] Gender Identity Not on file Sexual Orientation Not on file documented as of this encounter Last Filed Vital Signs Vital Sign Reading Time Taken Comments Blood Pressure 148/69 03/21/2025 10:43 PM CDT Pulse 100 03/21/2025 10:43 PM CDT Temperature 37 C (98.6 F) 03/21/2025 10:43 PM CDT Respiratory Rate 20 03/21/2025 10:43 PM CDT Oxygen Saturation 94% 03/21/2025 10:43 PM CDT Inhaled Oxygen Concentration - - Weight 108.9 kg (240 lb) 03/21/2025 10:43 PM CDT Height - - Body Mass Index 44.61 10/10/2024 1:09 PM [employer] documented in this encounter Medications at Time of Discharge acetaminophen (TYLENOL) 325 mg tablet Take 1 tablet (325 mg total) by mouth every 4 (four) hours as needed for pain 05/26/2022 albuterol HFA (PROVENTIL HFA,VENTOLIN HFA,PROAIR HFA) 90 mcg/actuation inhaler Inhale 1-2 puffs every 6 (six) hours as needed for shortness of breath 1 each 11/20/2021 amLODIPine (NORVASC) 5 mg tabletIndications :Primary hypertension Take 1 tablet (5 mg total) by mouth daily 30 tablet 05/26/2022 aspirin 81 mg chewable tablet Take 1 tablet (81 mg total) by mouth daily 30 tablet 06/01/2023 azelastine (OPTIVAR) 0.05 % ophthalmic solution 1 drop 2 (two) times a day 10/13/2023 Breztri Aerosphere 160-9-4.8 mcg/actuation inhaler Inhalation 03/19/2024 ergocalciferol (VITAMIN D) 50,000 unit capsule Take 1 capsule (50,000 Units total) by mouth 11/02/2022 Farxiga 10 mg tablet Take 1 tablet (10 mg total) by mouth daily 10/07/2024 fluticasone furoate-vilantero L (Breo Ellipta) 100-25 mcg/dose diskus inhaler Inhalation 03/19/2024 furosemide (LASIX) 20 mg tablet Take 1 tablet (20 mg total) by mouth daily 30 tablet 05/31/2023 gabapentin (NEURONTIN) 300 mg capsule Take 1 capsule (300 mg total) by mouth 3 (three) times a day 10/04/2022 HYDROcodone-aceta minophen (NORCO) 10-325 mg per tablet Take 1 tablet by mouth 4 (four) times a day 07/12/2024 hydrOXYzine (ATARAX) 50 mg tablet TAKE 1-2 TABLETS BY MOUTH THREE TIMES DAILY NEEDED FOR ITCHING 10/09/2024 isosorbide mononitrate ER (IMDUR) 30 mg 24 hr tablet Take 1 tablet (30 mg total) by mouth daily loteprednol (LOTEMAX) 0.5 % ophthalmic suspension 09/03/2024 magnesium oxide (MAG-OX) 400 mg (241.3 mg elemental magnesium) tablet Oral 03/19/2024 melatonin 5 mg tabletIndications :Primary insomnia Take 1 tablet (5 mg total) by mouth nightly as needed (insomnia) 0 05/26/2022 methylPREDNISolon e (MEDROL DOSEPACK) 4 mg Dosepack Take as directed on package 1 packet 01/18/2025 miFEPRIStone (KORLYM) 300 mg tablet Take 1 tablet (300 mg total) by mouth daily Hector 15 mg/0.5 mL pen injector ADMINISTER 15 MG UNDER THE SKIN WEEKLY 06/01/2024 neomycin-polymyxi n-dexAMETHasone (MAXITROL) 3.5mg/mL-10,000 unit/mL-0.1 % ophthalmic suspension SHAKE LIQUID AND INSTILL 1 DROP IN BOTH EYES TWICE DAILY 10/14/2023 nitroglycerin (NITROSTAT) 0.[address] 1 tablet (0.4 mg total) under the tongue every 5 (five) minutes as needed for chest pain oxybutynin XL (DITROPAN-XL) 10 mg 24 hr tablet Take 1 tablet (10 mg total) by mouth daily 11/02/2022 pregabalin (LYRICA) 200 mg capsule Take 1 capsule (200 mg total) by mouth 2 (two) times a day 08/29/2023 rosuvastatin (CRESTOR) 10 mg tablet Take 1 tablet (10 mg total) by mouth daily tirzepatide (Mounjaro) 12.5 mg/0.5 mL pen injector MOUNJARO 12.5 MG/0.5 ML SUBCUTANEOUS PEN INJECTOR 03/19/2024 traZODone (DESYREL) 100 mg tabletIndications :Primary insomnia Take 1 tablet (100 mg total) by mouth nightly as needed for sleep 30 tablet 05/26/2022 Trintellix 20 mg tablet Take 1 tablet (20 mg total) by mouth daily 10/12/2023 umeclidinium-rao nteroL (ANORO ELLIPTA) 62.5-25 mcg/actuation blister with deviceIndications :Bronchospasm Prevention with COPD Inhale 1 puff daily 30 each 05/31/2023 Unithroid 75 mcg tablet Take 1 tablet (75 mcg total) by mouth every morning 10/26/2022 documented as of this encounter Discharge Disposition Disposition Code Departure Means Destination Comment s Left Against Medical Advice Removed IV prior to leaving, patient states she is done waiting and is going home, escorted by family to car documented in this encounter ED Notes * Linda Alvarez RN - 03/21/2025 10:43 PM CDT Patient with SOB for several months. Seen and discharged at [facility] today. States went back to their ER tonight but they smarted off to my granddaughter so we left and came here. Pt states they say I have COPD because they don't know what else to call it because they don't know what's wrong with my lungs. documented in this encounter Plan of Treatment Not on file documented as of this encounter Procedures Procedure Name Priority Date/Time Associated Diagnosis Comments XR CHEST 1 VIEW ED 03/21/2025 11:09 PM CDT TROPONIN T HIGH-SENSITIVITY SERIES (BASELINE, 2HR, 4HR, 6HR) STAT 03/21/2025 10:49 PM CDT EGFR STAT 03/21/2025 10:49 PM CDT DIFFERENTIAL AUTO STAT 03/21/2025 10: 49 PM CDT CBC WITH AUTO DIFFERENTIAL STAT 03/21/2025 10:49 PM CDT COMPREHENSIVE METABOLIC PANEL STAT 03/21/2025 10:49 PM CDT documented in this encounter Results * XR Chest 1 Vw Portable (if patient condition/safety warrant portable) (03/21/2025 11:09 PM CDT) Anatomical Region Laterality Modality Body, Chest N/A Computed Radiogr aphy 03/21/2025 11:1 6 PM CDT Narrative 03/21/2025 11:16 PM CDT EXAM DESCRIPTION: XR CHEST 1 VIEW REASON FOR STUDY: chest pain Patient with SOB for several months. Seen and discharged at [facility] today TECHNIQUE: Single radiographic view of the chest. COMPARISON: Chest x-ray of August 10, 2024. FINDINGS: LUNGS/PLEURA: Lungs are mildly hypoventilatory yet otherwise clear, unchanged. HEART/MEDIASTINUM: Cardiac silhouette is normal. There is atherosclerosis of the aorta. Remaining mediastinal silhouettes are unremarkable. HARDWARE/LINES/TUBES: None. BONES: No acute findings. IMPRESSION: Hypoventilatory chest. THIS IS AN ELECTRONICALLY VERIFIED FINAL REPORT 03/21/2025 11:16 PM - Electronically signed by Dorie Kenney M.D. SN: Report ID: [id number] Reading Location: [id number] Procedure Note Dorie Kenney MD - 03/21/2025 EXAM DESCRIPTION: XR CHEST 1 VIEW REASON FOR STUDY: chest pain Patient with SOB for several months. Seen and discharged at [facility] TECHNIQUE: Single radiographic view of the chest. COMPARISON: Chest x-ray of August 10, 2024. FINDINGS: LUNGS/PLEURA: Lungs are mildly hypoventilatory yet otherwise clear, unchanged. HEART/MEDIASTINUM: Cardiac silhouette is normal. There isatherosclerosis of the aorta. Remaining mediastinal silhouettes are unremarkable. HARDWARE/LINES/TUBES: None. BONES: No acute findings. IMPRESSION: Hypoventilatory chest. THIS IS AN ELECTRONICALLY VERIFIED FINAL REPORT 03/21/2025 11:16 PM - Electronically signed by Dorie eKnney M.D. SN: Report ID: [id number] Reading Location: [place] [address] Misti Tobar NP IMG XR PROCEDURES Final Result * (ABNORMAL) eGFR (03/21/2025 10:49 PM CDT) eGFR 26(L) >=60 mL/min/1. 73 m2 Comment: Interpretive Data Reference Interval Normal >/= 90 mL/min/1.73m2 Mildly decreased* 60 - 89 mL/min/1.73m2 Mildly to moderately decreased 45 - 59 mL/min/1.73m2 Moderately to severely decreased 30 - 44 mL/min/1.73m2 Severely decreased 15 - 29 mL/min/1.73m2 Kidney Failure < 15 mL/min/1.73m2 *Relative to young adult level Estimated glomerular filtration rate is determined by the 2020 CKD-EPI equation recommended by the National Kidney Foundation (A Unifying Approach to GFR Estimation: Recommendations of the NKF-ASK Task Force on Reassessing the Inclusion of Race in Diagnosing Kidney Disease, JASN 2020). The CKD-EPI equation should not be used for patients with unstable renal function and has not been validated in children and those over 70. Current interpretive data was last reviewed 2021. Testing performed by: [facility], [address] [place] [address]., [address] Blood 03/21/2025 10:4 9 PM CDT 03/21/2025 10:57 PM CDT Misti Tobar [facility] LAB BLOOD ORDERABLES Final Resul t [facility] [address] [facility] Department [place] [address] * (ABNORMAL) Differential, auto (03/21/2025 10:49 PM CDT) Neutrophil abs 10.23(H) 1.50 - 6.50 K/cumm Comment:Testing performed by : [address] [address] Imm gran abs 0.13(H) 0.00 - 0.10 K/cumm [place] Comment:Testing performed by : [address] [address] Lymphocyte abs 0.65(L) 0.80 - 3.30 K/cumm [place] Comment:Testing performed by : [address] [address] Monocyte abs 0.07(L) 0.20 - 0.80 K/cumm [place] Comment:Testing performed by : [address] [address] Eosinophil abs 0.00 0.00 - 0.50 K/cumm [place] Comment:Testing performed by : [address] [address] Basophil abs 0.03 0.00 - 0.10 K/cumm [place] Comment:Testing performed by : [address] [address] Neutrophil pct 92.0 % [facility] Comment: Interpretive Data Percent cell count reference ranges are not reported, since discordance with absolute values may lead to misinterpretation of CBC data. Current Interpretive Data was last revised on 2018. Testing performed by: [address] [address] Imm gran pct 1.2 % [facility] Comment: Interpretive Data Percent cell count reference ranges are not reported, since discordance with absolute values may lead to misinterpretation of CBC data. Current Interpretive Data was last revised on 2018. Testing performed by: [address] [address] Lymphocyte pct 5.9 % [facility] Comment: Interpretive Data Percent cell count reference ranges are not reported, since discordance with absolute values may lead to misinterpretation of CBC data. Current Interpretive Data was last revised on 2018. Testing performed by: [address] [address] Monocyte pct 0.6 % [facility] Comment: Interpretive Data Percent cell count reference ranges are not reported, since discordance with absolute values may lead to misinterpretation of CBC data. Current Interpretive Data was last revised on 2018. Testing performed by: [address] [address] Eosinophil pct 0.0 % [facility] Comment: Interpretive Data Percent cell count reference ranges are not reported, since discordance with absolute values may lead to misinterpretation of CBC data. Current Interpretive Data was last revised on 2018. Testing performed by: [address] [address] Basophil pct 0.3 % [facility] Comment: Interpretive Data Percent cell count reference ranges are not reported, since discordance with absolute values may lead to misinterpretation of CBC data. Current Interpretive Data was last revised on 2018. Testing performed by: [address] [address] Blood 03/21/2025 10:4 9 PM CDT 03/21/2025 10:57 PM CDT Misti Tobar NP LAB BLOOD ORDERABLES Final Resul t [facility] [address] [facility] Department [place] [address] * (ABNORMAL) Troponin T high-sensitivity series (baseline, 2hr, 4hr, 6hr) (03/21/2025 10:49 PM CDT) Trop T hs 27(H) <=14 ng/L Comment: Interpretive Data For further hscTnT resources including the diagnostic algorithm and an aid in interpretation, copy and paste this link: [email or web address].testcatalog.org/show/hsTrop Current Interpretive Data last revised 2020. Testing performed by: [address] [address] Blood 03/21/2025 10:4 9 PM CDT 03/21/2025 10:57 PM CDT us Misti Tobar NP LAB BLOOD ORDERABLES Final Resul t [facility] [address] [facility] Department [place] [address] * (ABNORMAL) Comprehensive metabolic panel (03/21/2025 10:49 PM CDT) Sodium 142 135 - 145 mmol/L Comment:Testing performed by : [address] [address] Potassium, pl 4.3 3.3 - 4.9 mmol/L [facility] Comment:Testing performed by : [address] [address] Chloride 103 97 - 110 mmol/L [facility] Comment:Testing performed by : [address] [address] CO2 25 22 - 32 mmol/L [facility] Comment:Testing performed by : [address] [address] Anion gap 14 2 - 15 mmol/L [place] Comment:Testing performed by : [address] [address] BUN 27(H) 6 - 25 mg/dL [place] Comment:Testing performed by : [address] [address] Creatinine 1.94(H) 0.60 - 1.10 mg/dL [place] Comment:Testing performed by : [address] [address] Glucose 178 70 - 199 mg/dL [facility] Comment: Interpretive Data Fasting glucose >/= 126 mg/dl is diagnostic for diabetes. Fasting is defined as no caloric intake for at least 8 hours. Fasting glucose between 100 mg/dl to 125 mg/dl is diagnostic of prediabetes. In a patient with classic symptoms of hyperglycemia or hyperglycemic crisis, a random glucose >/= 200 mg/dl is diagnostic for diabetes. In the absence of unequivocal hyperglycemia, results should be confirmed by repeat testing. The classification and Diagnosis of Diabetes Diabetes Care 202; 46: S19-S40. Current interpretive data was last revised 2022. Testing performed by: [address] [address] Calcium 9.6 8.5 - 10.3 mg/dL [place] Comment:Testing performed by : [address] [address] Bilirubin, total 0.5 0.1 - 1.2 mg/dL [facility] Comment:Testing performed by : [address] [address] Protein, pl 7.5 6.5 - 8.5 g/dL [facility] Comment:Testing performed by : [address] [address] Albumin 4.1 3.5 - 5.0 g/dL [facility] Comment:Testing performed by : [address] [address] Alk phos 69 40 - 130 Units/L [facility] Comment:Testing performed by : [address] [address] ALT 10 7 - 45 Units/L [facility] Comment:Testing performed by : [address] [address] AST 26 10 - 45 Units/L [facility] Comment:Testing performed by : [address] [address] Blood 03/21/2025 10:4 9 PM CDT 03/21/2025 10:57 PM CDT us Misti Tobar NP LAB BLOOD ORDERABLES Final Resul t [facility] [address] [facility] Department [place] [address] * (ABNORMAL) CBC with auto differential (03/21/2025 10:49 PM CDT) [facility] WBC 11.11(H) 3.80 - 9.90 K/cumm Comment:Testing performed by : [address], [address] Hgb 13.7 11.9 - 15.5 g/dL [place] Comment:Testing performed by : [address], [address] Hct 42.8 35.6 - 45.5 % [facility] Comment:Testing performed by : [address], [address] Plt 230 150 - 400 K/cumm [place] Comment:Testing performed by : [address], [address] MPV 10.4 9.1 - 12.3 fL [place] Comment:Testing performed by : [address], [address] RBC 5.12 3.90 - 5.20 M/cumm [place] Comment:Testing performed by : [address], [address] MCV 83.6 81.3 - 96.4 fL [place] Comment:Testing performed by : [address], [address] MCH 26.8(L) 27.1 - 33.3 pg [facility] Comment:Testing performed by : [address], [address] MCHC 32.0(L) 32.3 - 35.7 g/dL [facility] Comment:Testing performed by : [address], [address] RDW CV 15.2(H) 11.1 - 14.9 % [facility] Comment:Testing performed by : [address], [address] RDW SD 46.4 35.7 - 48.1 fL [place] Comment:Testing performed by : [address], [address] NRBC abs 0.00 0.00 - 0.01 K/cumm [facility] [place] [facility] Comment:Testing performed by : [facility], [address] [place] [address], [place]., [address] Blood Venous blood specimen / Unknown 03/21/2025 10:49 PM CDT 03/21/2025 10:57 PM CDT us Misti Tobar [facility] LAB BLOOD ORDERABLES Final Resul t [place] [place] [facility] [address] [facility] Department [place] [address] documented in this encounter Visit Diagnoses Not on filedocumented in this encounter Active and Recently Administered Medications Times are shown in CDT. Scheduled Medication Order 03/20/2025 03/21/2025 03/22/2025 aspirin chewable tablet 324 mg 324 mg, oral, Once, On Purnima 03/21/25 at 2242, For 1 dose, Indications: Chest Pain 2242 (Due) documented in this encounter Orders Medications Ordered That Clive ht Not Have Been Administered Count Last Ordered Date First Ordered Date aspirin chewable tablet 324 mg 1 03/21/2025 EKG Orders Without Results Count Last Ordered D ate First Ordered Date ECG 12-LEAD 1 03/21/2025 documented in this encounter Care Teams Plater Barrel Relationship Specialty Start Date End Date Jn Velásquez MD PCP - General Family Medicine 05/29/23 Waqas De Leon MD Internal Medicine 11/20/21 Waqas De Leon MD Internal Medicine 06/06/19 Cortney Corona MD Referring Physician Surgery 05/14/22 Miscellaneous, Not In File 05/31/23 Daniel Go MD [address] [place] [address] Consulting Physician Interventional Cardiology 05/31/23 [place] [address] [facility] [address] [place] [address] Consulting Physician Pulmonary Disease 05/31/23 documented as of this encounter
--- OUTSIDE RECORDS SUMMARY | 2025-03-22 13:50 | XMS_ITS | Data Portability ---
Author Organization [facility], Main Office Address [address] [place] [address] Assessment No assessment recorded. Plan of Treatment Reminders Order Date Submit Date Provider Last Modified By Organization Details Last Modified Time Details Appointments None recorded. Lab lipid panel, serum 2022 023 [facility] (Lab), [address] [place], [address], 3 13:44:14 glycohemogl obin, total, blood 2022 023 [facility] (Lab), [address] [place], [address], 3 14:14:23 CMP, serum or plasma 2022 023 [facility] (Lab), [address] [place], [address], 3 14:34:25 TSH, serum or plasma 2022 023 [facility] (Lab), [address] [place], [address], 3 14:18:28 T4, free, serum 2022 023 [facility] (Lab), [address] [place], [address], 3 14:08:54 T3, free, serum or plasma 2022 023 [facility] (Lab), [address] [place], [address], 3 14:08:59 Referral endocrinolo gy referral - bilateral adrenal hyperplasia with abnormal DST, unable to tolerate korlym 2022 023 [email or web address] Olivia Mills, [address] [facility], [place], [address], 3 12:50:55 Procedures None recorded. Surgeries None recorded. Imaging None recorded. Medication Orders Ozempic 2 mg/dose (8 mg/3 mL) subcutaneou s pen injector 2022 023 [id number], [address] [place], [place], [id number], 4 13:30:28 Farxiga 5 mg tablet [address] [id number], [address] [place], [place], [id number], 4 13:29:03 Unithroid 75 mcg tablet 2022 023 [address] [id number], [address] [place], [place], [id number], 4 13:31:10 Wegovy 0.5 mg/0.5 mL subcutaneou s pen injector 2022 023 [email or web address] [facility] #79139, [address] [place], [place], [id number], 3 12:27:44 Korlym 300 mg tablet 2022 023 [facility], [address] [place], [address], 3 12:29:23 Unithroid 100 mcg tablet 2022 023 [email or web address] [id number], [address] [place], [place], [id number], 12:28:35 Patient TargetsNo targets recorded. Patient InstructionsNo [...] 2.6 pg/mL 2.77-5 .27 low Not Available [facility] (Lab) [address] [place], [address], 12/14/2022 15:23:41 12/14/19 23 12/14/2022 T4 FREE free T4 1.40 NG/dL 0.78-2 .19 Not Available [facility] (Lab) [address] [place], [address], 12/14/2022 15:23:38 12/14/19 23 12/14/2022 TSH thyroid-stim ulating hormone 0.598 uIU/m L 0.465- 4.680 Not Available [facility] (Lab) [address] [place], [address], 12/14/2022 15:12:15 12/14/1912/14/2022 HEMOG LOBIN A1C HA1C 5.6 % 4.0-6. 0 Diabe brianna Scree gisele Crite pamela: <5.7% Consi stent with absen ce of diabe brianna 5.7-6 .4% Consi stent with incre ased risk for diabe brianna (pred iabet es) >OR=6 .5% Consi stent with diabe brianna REFER ENCE: Diabe brianna Care 2016, 39(Anderson ppl.1 ):s13 -s22 Not Available [facility] (Lab) [address] [facility] [place], [address], 12/14/2022 14:54:35 12/14/19 23 12/14/2022 COMPR EHENS KECIA METAB OLIC PANEL A/G ratio 1.3 ratio 1.0-2. 0 Not Available [facility] (Lab) [address] [place], [address], 12/14/2022 14:24:11 12/14/19 23 12/14/2022 COMPR EHENS KECIA METAB OLIC PANEL carbon dioxide 25 mmol/ L 22-30 Not Available [facility] (Lab) [address] [place], [address], 12/14/2022 14:24:11 12/14/19 23 12/14/2022 COMPR EHENS KECIA METAB OLIC PANEL sodium 140 mmol/ L 137-14 5 Not Available [facility] (Lab) [address] [place], [address], 12/14/2022 14:24:11 12/14/19 23 12/14/2022 COMPR EHENS KECIA METAB OLIC PANEL potassium 4.0 mmol/ L 3.5-5. 1 Not Available [facility] (Lab) [address] [place], [address], 12/14/2022 14:24:11 12/14/19 23 12/14/2022 COMPR EHENS KECIA METAB OLIC PANEL chloride 103 mmol/ L 98-107 Not Available [facility] (Lab) [address] [place], [address], 12/14/2022 14:24:11 12/14/19 23 12/14/2022 COMPR EHENS KECIA METAB OLIC PANEL anion gap 16.0 mmol/ L 14-22 Not Available [facility] (Lab) [address] [place], [address], 12/14/2022 14:24:11 12/14/19 23 12/14/2022 COMPR EHENS KECIA METAB OLIC PANEL glucose 109 mg/dL 70-99 high Not Available [facility] (Lab) [address] [place], [address], 12/14/2022 14:24:11 12/14/19 23 12/14/2022 COMPR EHENS KECIA METAB OLIC PANEL BUN 17 mg/dL 8-19 Not Available [facility] (Lab) [address] [place], [address], 12/14/2022 14:24:11 12/14/19 23 12/14/2022 COMPR EHENS KECIA METAB OLIC PANEL creatinine 1.74 mg/dL 0.66-1 .25 high Not Available [facility] (Lab) [address] [place], [address], 12/14/2022 14:24:11 12/14/19 23 12/14/2022 COMPR EHENS KECIA METAB OLIC PANEL GFR 29 Refer ence Range : [place] ge GFR Healt hy Adult : >60 [...] calcu lator is avail able on the [facility] websi te: https :[email or web address] [email or web address] lynch/karoline ofess ional s/kdo qi/gf r_cal culat or Not Available [facility] (Lab) [address] [place], [address], 12/14/2022 14:24:11 12/14/19 23 12/14/2022 COMPR EHENS KECIA METAB OLIC PANEL alkaline phosphatase 57 U/L 38-[address] [facility] (Lab) [address] [place], [address], 12/14/2022 14:24:11 12/14/19 23 12/14/2022 COMPR EHENS KECIA METAB OLIC PANEL alanine aminotransfe rase 17 U/L 0-35 Not Available [facility] (Lab) [address] [place], [address], 12/14/2022 14:24:11 12/14/19 23 12/14/2022 COMPR EHENS KECIA METAB OLIC PANEL aspartate aminotransfe rase 26 U/L 15-37 Not Available [facility] (Lab) [address] [place], [address], 12/14/2022 14:24:11 12/14/19 23 12/14/2022 COMPR EHENS KECIA METAB OLIC PANEL bilirubin, total 0.60 mg/dL 0.20-1 .30 Not Available [facility] (Lab) [address] [place], [address], 12/14/2022 14:24:11 12/14/19 23 12/14/2022 COMPR EHENS KECIA METAB OLIC PANEL calcium 9.0 mg/dL 8.4-10 .2 Not Available [facility] (Lab) [address] [place], [address], 12/14/2022 14:24:11 12/14/19 23 12/14/2022 COMPR EHENS KECIA METAB OLIC PANEL total protein 7.7 g/dL 6.3-8. 2 Not Available [facility] (Lab) [address] [place], [address], 12/14/2022 14:24:11 12/14/19 23 12/14/2022 COMPR EHENS KECIA METAB OLIC PANEL albumin 4.3 g/dL 3.0-4. 4 Not Available [facility] (Lab) [address] [place], [address], 12/14/2022 14:24:11 12/14/19 23 12/14/2022 COMPR EHENS KECIA METAB OLIC PANEL globulin 3.4 g/dL 2.6-4. 2 Not Available [facility] (Lab) [address] [place], [address], 12/14/2022 14:24:11 12/14/19 23 12/14/2022 MICRO ALBUM N RNDM W/CRE AT RATIO ur creat 122.62 mg/dL REFER ENCE RANGE NOT ESTAB LISHE D FOR RANDO M URINE CREAT ININE Not Available [facility] (Lab) [address] [place], [address], 12/14/2022 13:55:12 12/14/19 23 12/14/2022 MICRO ALBUM N RNDM W/CRE AT RATIO microalbumin , urine 217.1 mg/L 0.0-16 .6 high Not Available [facility] (Lab) [address] [place], [address], 12/14/2022 13:55:12 12/14/19 23 12/14/2022 MICRO ALBUM [...] 26: S94-S 96, NOVUA 2002 Not Available [facility] (Lab) [address] [place], [address], 12/14/2022 13:55:12 03/07/20 23 03/07/2023 MICRO ALBUM N RNDM W/CRE AT RATIO ur creat 133.14 mg/dL REFER ENCE RANGE NOT ESTAB LISHE D FOR RANDO M URINE CREAT ININE Not Available [facility] (Lab) [address] [place], [address], 03/07/2023 14:32:57 03/07/20 23 03/07/2023 MICRO ALBUM N RNDM W/CRE AT RATIO microalbumin , urine 162.5 mg/L 0.0-16 .6 high Not Available [facility] (Lab) [address] [place], [address], 03/07/2023 14:32:57 03/07/20 23 03/07/2023 MICRO ALBUM [...] VOL. 26: S94-S , 2002 Not Available [facility] (Lab) [address] [place], [address], 03/07/2023 14:32:57 03/07/20 23 03/07/2023 COMPR EHENS KECIA METAB OLIC PANEL sodium 138 mmol/ L 137-14 5 Not Available [facility] (Lab) [address] [place], [address], 03/07/2023 14:33:43 03/07/20 23 03/07/2023 COMPR EHENS KECIA METAB OLIC PANEL potassium 4.9 mmol/ L 3.5-5. 1 Not Available [facility] (Lab) [address] [place], [address], 03/07/2023 14:33:43 03/07/20 23 03/07/2023 COMPR EHENS KECIA METAB OLIC PANEL chloride 105 mmol/ L 98-107 Not Available [facility] (Lab) [address] [place], [address], 03/07/2023 14:33:43 03/07/20 23 03/07/2023 COMPR EHENS KECIA METAB OLIC PANEL carbon dioxide 26 mmol/ L 22-30 Not Available [facility] (Lab) [address] [place], [address], 03/07/2023 14:33:43 03/07/20 23 03/07/2023 COMPR EHENS KECIA METAB OLIC PANEL anion gap 11.9 mmol/ L 14-22 low Not Available [facility] (Lab) [address] [place], [address], 03/07/2023 14:33:43 03/07/20 23 03/07/2023 COMPR EHENS KECIA METAB OLIC PANEL glucose 119 mg/dL 70-99 high Not Available [facility] (Lab) [address] [place], [address], 03/07/2023 14:33:43 03/07/20 23 03/07/2023 COMPR EHENS KECIA METAB OLIC PANEL BUN 25 mg/dL 8-19 high Not Available [facility] (Lab) [address] [place], [address], 03/07/2023 14:33:43 03/07/20 23 03/07/2023 COMPR EHENS KECIA METAB OLIC PANEL creatinine 1.89 mg/dL 0.66-1 .25 high Not Available [facility] (Lab) [address] [place], [address], 03/07/2023 14:33:43 03/07/20 23 03/07/2023 COMPR EHENS KECIA METAB OLIC PANEL GFR 26 Refer ence Range : [place] ge GFR Healt hy Adult : >60 [...] or ethni c subgr oups, such as [facility] nics. Outsi de the valid ated [...] calcu lator is avail able on the [facility] websi te: https ://ww w.kid my.o rg/pr ofess ional s/kdo qi/gf r_cal culat or Not Available [facility] (Lab) [address] [place], [address], 03/07/2023 14:33:43 03/07/20 23 03/07/2023 COMPR EHENS KECIA METAB OLIC PANEL alkaline phosphatase 57 U/L 38-[address] [facility] (Lab) [address] [place], [address], 03/07/2023 14:33:43 03/07/20 23 03/07/2023 COMPR EHENS KECIA METAB OLIC PANEL alanine aminotransfe rase 17 U/L 0-35 Not Available [facility] (Lab) [address] [place], [address], 03/07/2023 14:33:43 03/07/20 23 03/07/2023 COMPR EHENS KECIA METAB OLIC PANEL aspartate aminotransfe rase 29 U/L 15-37 Not Available [facility] (Lab) [address] [place], [address], 03/07/2023 14:33:43 03/07/20 23 03/07/2023 COMPR EHENS KECIA METAB OLIC PANEL bilirubin, total 0.70 mg/dL 0.20-1 .30 Not Available [facility] (Lab) [address] [place], [address], 03/07/2023 14:33:43 03/07/20 23 03/07/2023 COMPR EHENS KECIA METAB OLIC PANEL calcium 9.3 mg/dL 8.4-10 .2 Not Available [facility] (Lab) [address] [place], [address], 03/07/2023 14:33:43 03/07/20 23 03/07/2023 COMPR EHENS KECIA METAB OLIC PANEL total protein 7.5 g/dL 6.3-8. 2 Not Available [facility] (Lab) [address] [place], [address], 03/07/2023 14:33:43 03/07/20 23 03/07/2023 COMPR EHENS KECIA METAB OLIC PANEL albumin 4.2 g/dL 3.0-4. 4 Not Available [facility] (Lab) [address] [place], [address], 03/07/2023 14:33:43 03/07/20 23 03/07/2023 COMPR EHENS KECIA METAB OLIC PANEL globulin 3.3 g/dL 2.6-4. 2 Not Available [facility] (Lab) [address] [facility] [place], [address], 03/07/2023 14:33:43 03/07/20 23 03/07/2023 COMPR EHENS KECIA METAB OLIC PANEL A/G ratio 1.3 ratio 1.0-2. 0 Not Available [facility] (Lab) [address] [place], [address], 03/07/2023 14:33:43 03/07/2003/07/2023 PHOSP HORUS phosphorus 4.2 mg/dL 2.5-4. 5 Not Available [facility] (Lab) [address] [place], [address], 03/07/2023 14:33:47 03/07/20 23 03/07/2023 T4 FREE free T4 1.09 NG/dL 0.78-2 .19 Not Available [facility] (Lab) [address] [place], [address], 03/07/2023 14:39:37 03/07/2003/07/2023 T3 FREE free T3 2.4 pg/mL 2.77-5 .27 low Not Available [facility] (Lab) [address] [place], [address], 03/07/2023 14:39:46 03/07/20 23 03/07/2023 TSH thyroid-stim ulating hormone 11.000 uIU/m L 0.465- 4.680 high Not Available [facility] (Lab) [address] [place], [address], 03/07/2023 14:52:02 03/07/20 23 03/07/2023 HEMOG LOBIN A1C HA1C 6.3 % 4.0-6. 0 high Diabe brianna Scree gisele Crite pamela: <5.7% Consi stent with absen ce of diabe brianna 5.7-6 .4% Consi stent with incre ased risk for diabe brianna (pred iabet es) >OR=6 .5% Consi stent with diabe brianna REFER ENCE: Diabe brianna Care 2016, 39( ppl.1 ):s13 -s22 Not Available [facility] (Lab) [address] [place], [address], 03/07/2023 15:53:45 05/13/20 23 05/13/2023 COMPR EHENS KECIA METAB OLIC PANEL sodium 141 mmol/ L 137-14 5 Not Available [facility] (Lab) [address] [place], [address], 05/13/2023 14:34:25 05/13/20 23 05/13/2023 COMPR EHENS KECIA METAB OLIC PANEL potassium 4.4 mmol/ L 3.5-5. 1 Not Available [facility] (Lab) [address] [place], [address], 05/13/2023 14:34:25 05/13/20 23 05/13/2023 COMPR EHENS KECIA METAB OLIC PANEL chloride 101 mmol/ L 98-107 Not Available [facility] (Lab) [address] [place], [address], 05/13/2023 14:34:25 05/13/20 23 05/13/2023 COMPR EHENS KECIA METAB OLIC PANEL carbon dioxide 26 mmol/ L 22-30 Not Available [facility] (Lab) [address] [place], [address], 05/13/2023 14:34:25 05/13/20 23 05/13/2023 COMPR EHENS KECIA METAB OLIC PANEL anion gap 18.4 mmol/ L 14-22 Not Available [facility] (Lab) [address] [place], [address], 05/13/2023 14:34:25 05/13/20 23 05/13/2023 COMPR EHENS KECIA METAB OLIC PANEL glucose 93 mg/dL 70-99 Not Available [facility] (Lab) [address] [place], [address], 05/13/2023 14:34:25 05/13/20 23 05/13/2023 COMPR EHENS KECIA METAB OLIC PANEL BUN 16 mg/dL 8-19 Not Available [facility] (Lab) [address] [place], [address], 05/13/2023 14:34:25 05/13/20 23 05/13/2023 COMPR EHENS KECIA METAB OLIC PANEL creatinine 1.69 mg/dL 0.66-1 .25 high Not Available [facility] (Lab) [address] [place], [address], 05/13/2023 14:34:25 05/13/20 23 05/13/2023 COMPR EHENS KECIA METAB OLIC PANEL GFR 30 Refer ence Range : [place] ge GFR Healt hy Adult : >60 [...] calcu lator is avail able on the [facility] websi te: https :[email or web address] [email or web address] [email or web address] lynch/pr ofess ional s/kdo qi/gf r_cal culat or Not Available [facility] (Lab) [address] [place], [address], 05/13/2023 14:34:25 05/13/20 23 05/13/2023 COMPR EHENS KECIA METAB OLIC PANEL alkaline phosphatase 58 U/L 38-[address] [facility] (Lab) [address] [place], [address], 05/13/2023 14:34:25 05/13/20 23 05/13/2023 COMPR EHENS KECIA METAB OLIC PANEL alanine aminotransfe rase 16 U/L 0-35 Not Available [facility] (Lab) [address] [place], [address], 05/13/2023 14:34:25 05/13/20 23 05/13/2023 COMPR EHENS KECIA METAB OLIC PANEL aspartate aminotransfe rase 28 U/L 15-37 Not Available [facility] (Lab) [address] [place], [address], 05/13/2023 14:34:25 05/13/20 23 05/13/2023 COMPR EHENS KECIA METAB OLIC PANEL bilirubin, total 0.70 mg/dL 0.20-1 .30 Not Available [facility] (Lab) [address] [place], [address], 05/13/2023 14:34:25 05/13/20 23 05/13/2023 COMPR EHENS KECIA METAB OLIC PANEL calcium 9.3 mg/dL 8.4-10 .2 Not Available [facility] (Lab) [address] [place], [address], 05/13/2023 14:34:25 05/13/20 23 05/13/2023 COMPR EHENS KECIA METAB OLIC PANEL total protein 7.2 g/dL 6.3-8. 2 Not Available [facility] (Lab) [address] [place], [address], 05/13/2023 14:34:25 05/13/20 23 05/13/2023 COMPR EHENS KECIA METAB OLIC PANEL albumin 4.0 g/dL 3.0-4. 4 Not Available [facility] (Lab) [address] [place], [address], 05/13/2023 14:34:25 05/13/20 23 05/13/2023 COMPR EHENS KECIA METAB OLIC PANEL globulin 3.2 g/dL 2.6-4. 2 Not Available [facility] (Lab) [address] [place], [address], 05/13/2023 14:34:25 05/13/20 23 05/13/2023 COMPR EHENS KECIA METAB OLIC PANEL A/G ratio 1.3 ratio 1.0-2. 0 Not Available [facility] (Lab) [address] [place], [address], 05/13/2023 14:34:25 07/04/20 23 07/04/2023 LIPID PANEL cholesterol 165 mg/dL 140-19 9 NIH RHYS NSUS RECOM MENDA TION FOR JENNIFER STERO L: ADULT CHILD LOW RISK: <200 <170 BORDE RLINE : <200- 239 ----- HIGH RISK: >240 >200 Not Available [facility] (Lab) [address] [place], [address], 07/04/2023 13:44:14 07/04/20 23 07/04/2023 LIPID PANEL triglyceride s 173 mg/dL 0-150 high NIH RHYS NSUS REPOR T RECOM MENDA TION FOR TRIGL YCERI LINO: ADULT CHILD LOW RISK: <150 ----- BODER LINE: 150-1 99 ----- HIGH RISK: >200 ----- Not Available [facility] (Lab) [address] [place], [address], 07/04/2023 13:44:14 07/04/20 23 07/04/2023 LIPID PANEL HDL cholesterol 51 mg/dL 40- Not Available [facility] (Lab) [address] [place], [address], 07/04/2023 13:44:14 07/04/20 23 07/04/2023 LIPID PANEL [...] WILL NOT BE REPOR TERRY. Not Available [facility] (Lab) [address] [place], [address], 07/04/2023 13:44:14 07/04/20 23 07/04/2023 COMPR EHENS KECIA METAB OLIC PANEL sodium 140 mmol/ L 137-14 5 Not Available [facility] (Lab) [address] [place], [address], 07/04/2023 13:44:20 07/04/20 23 07/04/2023 COMPR EHENS KECIA METAB OLIC PANEL potassium 4.8 mmol/ L 3.5-5. 1 Not Available [facility] (Lab) [address] [facility] [place], [address], 07/04/2023 13:44:20 07/04/20 23 07/04/2023 COMPR EHENS KECIA METAB OLIC PANEL chloride 102 mmol/ L 98-107 Not Available [facility] (Lab) [address] [place], [address], 07/04/2023 13:44:20 07/04/20 23 07/04/2023 COMPR EHENS KECIA METAB OLIC PANEL carbon dioxide 29 mmol/ L 22-30 Not Available [facility] (Lab) [address] [place], [address], 07/04/2023 13:44:20 07/04/20 23 07/04/2023 COMPR EHENS KECIA METAB OLIC PANEL anion gap 13.8 mmol/ L 14-22 low Not Available [facility] (Lab) [address] [place], [address], 07/04/2023 13:44:20 07/04/20 23 07/04/2023 COMPR EHENS KECIA METAB OLIC PANEL glucose 99 mg/dL 70-99 Not Available [facility] (Lab) [address] [place], [address], 07/04/2023 13:44:20 07/04/20 23 07/04/2023 COMPR EHENS KECIA METAB OLIC PANEL BUN 24 mg/dL 8-19 high Not Available [facility] (Lab) [address] [place], [address], 07/04/2023 13:44:20 07/04/20 23 07/04/2023 COMPR EHENS KECIA METAB OLIC PANEL creatinine 1.83 mg/dL 0.66-1 .25 high Not Available [facility] (Lab) [address] [place], [address], 07/04/2023 13:44:20 07/04/20 23 07/04/2023 COMPR EHENS KECIA METAB OLIC PANEL GFR 27 Refer ence Range : [place] ge GFR Healt hy Adult : >60 [...] or ethni c subgr oups, such as [facility] nics. Outsi de the valid ated casper [...] calcu lator is avail able on the [facility] websi te: https :[email or web address] [email or web address] rg/pr ofess ional s/kdo qi/gf r_cal culat or Not Available [facility] (Lab) [address] [place], [address], 07/04/2023 13:44:20 07/04/20 23 07/04/2023 COMPR EHENS KECIA METAB OLIC PANEL alkaline phosphatase 70 U/L 38-[address] [facility] (Lab) [address] [place], [address], 07/04/2023 13:44:20 07/04/20 23 07/04/2023 COMPR EHENS KECIA METAB OLIC PANEL alanine aminotransfe rase 16 U/L 0-35 Not Available [facility] (Lab) [address] [place], [address], 07/04/2023 13:44:20 07/04/20 23 07/04/2023 COMPR EHENS KECIA METAB OLIC PANEL aspartate aminotransfe rase 26 U/L 15-37 Not Available [facility] (Lab) [address] [place], [address], 07/04/2023 13:44:20 07/04/20 23 07/04/2023 COMPR EHENS KECIA METAB OLIC PANEL bilirubin, total 0.50 mg/dL 0.20-1 .30 Not Available [facility] (Lab) [address] [place], [address], 07/04/2023 13:44:20 07/04/20 23 07/04/2023 COMPR EHENS KECIA METAB OLIC PANEL calcium 9.2 mg/dL 8.4-10 .2 Not Available [facility] (Lab) [address] [place], [address], 07/04/2023 13:44:20 07/04/20 23 07/04/2023 COMPR EHENS KECIA METAB OLIC PANEL total protein 6.9 g/dL 6.3-8. 2 Not Available [facility] (Lab) [address] [place], [address], 07/04/2023 13:44:20 07/04/20 23 07/04/2023 COMPR EHENS KECIA METAB OLIC PANEL albumin 3.8 g/dL 3.0-4. 4 Not Available [facility] (Lab) [address] [place], [address], 07/04/2023 13:44:20 07/04/20 23 07/04/2023 COMPR EHENS KECIA METAB OLIC PANEL globulin 3.1 g/dL 2.6-4. 2 Not Available [facility] (Lab) [address] [place], [address], 07/04/2023 13:44:20 07/04/20 23 07/04/2023 COMPR EHENS KECIA METAB OLIC PANEL A/G ratio 1.2 ratio 1.0-2. 0 Not Available [facility] (Lab) [address] [place], [address], 07/04/2023 13:44:20 07/04/20 23 07/04/2023 T4 FREE free T4 0.92 NG/dL 0.78-2 .19 Not Available [facility] (Lab) [address] [place], [address], 07/04/2023 14:08:54 07/04/20 23 07/04/2023 T3 FREE free T3 3.4 pg/mL 2.77-5 .27 Not Available [facility] (Lab) [address] [place], [address], 07/04/2023 14:08:59 [id number]|2025-03-22 13:50:00|2025-03-22 13:50:00|XMS_ITS|BKG DAEMON|External Medical Summaries|[id number]|" Clinical Summary Created on: March 22, 2025 Jacy Mills : 1945 Sex: Female Author Organization [facility] Address [address] [place] [id number] Care Team Providers Care Virtual Classroom Manager Name Role Phone Waqas De Leon MD Unavailable Waqas De Leon MD Unavailable [phone] Cortney Corona MD Unavailable Jn Velásquez MD Primary Care Provider [phone] Miscellaneous, Not In File Unavailable Unava ilDaniel Mckeon MD Unavailable [phone] James Cifuentes MD Unavailable Allergies Active [...] Patient need to follow up with her bowling ball finisher Dr. Fitch at [facility] on 06/28 Acute pulmonary edema 05/18/20222021 [...] on room air- transition to torsemide per bowling ball finisher, add low dose potassium supplement. Continue to [...] Encounters Date Type Department Care Team Description 03/22/2025 12:29 AM CDT - 03/22/2025 1:05 AM CDT Emergency [facility] Emergency Department [address] [place] [id number] Discharge Disposition: Left Against Medical Advice 01/18/2025 Telephone [facility] Rheumatology [address] [place] [address] Zarina Carroll MD Discuss Test Results 01/14/2025 Telephone [facility] Endocrinology Metabolism and Lipid [address] [place] [address] [place] [address] Nahed Santoro RMA Appointment (Referral from [facility]) from Last 3 Months Surgical History [...] Smoking Tobacco: Former Cigarettes 1 53 1 017 - 2020 Smokeless Tobacco: Never Tobacco Cessation:Counseling [...] often do you attend chur ch or mormon services? Never 05/31/2023 Do you belong to any clubs o r organizations such as evangelical groups, unions, fraternal or athletic groups, or [...] place to sleep or slept in a care home (including now)? No 05/31/2023 Personal Safety Answer Date Recorded Have you ever been in or are you currently in a harmful physical or emotional relationship or is someone making you feel afraid or unsafe? Denies 03/21/2025 Comments No Sex and Gender Information Value Date Recorded Sex Assigned at Not on file Legal Sex Female 7:23 PM [employer] Gender Identity Not on file Sexual Orientation [...] (240 lb) 03/21/2025 10:43 PM CDT Height 156.2 cm (5' 1.5 ) 10/10/2024 1:09 PM [employer] Body Mass Index 44.61 10/10/2024 1:09 PM [employer] Plan of Treatment Health Maintenance Due Date [...] 1 VIEW ED 03/21/2025 11:09 PM CDT EGFR STAT 03/21/2025 10:49 PM CDT DIFFERENTIAL AUTO STAT 03/21/2025 10: 49 PM CDT TROPONIN T HIGH-SENSITIVITY SERIES (BASELINE, 2HR, 4HR, 6HR) STAT 03/21/2025 10:49 PM CDT COMPREHENSIVE METABOLIC PANEL STAT 03/21/2025 10:49 PM CDT CBC WITH AUTO DIFFERENTIAL STAT 03/21/2025 10:49 PM CDT HEPATITIS PANEL, ACUTE Routine 12:01 PM CDT Interstitial pulmonary disease (HCC) from Last 3 Months or Most Recently Relevant to Health Maintenance Results * XR Chest 1 Vw Portable (if patient condition/safety warrant portable) (03/21/2025 11:09 PM CDT) Anatomical Region Laterality Modality Body, Chest N/A Computed Radiogr aphy 03/21/2025 11:1 6 PM CDT Narrative 03/21/2025 11:16 PM CDT EXAM DESCRIPTION: XR CHEST 1 VIEW REASON FOR STUDY: chest pain Patient with SOB for several months. Seen and discharged at [facility] today TECHNIQUE: Single radiographic view of the [...] Electronically signed by Dorie Kenney M.D. SN: SN Report ID: [id number] Reading Location: [id number] Procedure Note Dorie Kenney MD - 03/21/2025 EXAM DESCRIPTION: XR CHEST 1 VIEW REASON FOR STUDY: chest pain Patient with SOB for several months. Seen and discharged at [facility] today TECHNIQUE: Single radiographic view of the [...] Electronically signed by Dorie Kenney M.D. SN: SN Report ID: [id number] Reading Location: [id number] Misti Tobar NP IMG XR PROCEDURES Final Result * (ABNORMAL) Troponin T high-sensitivity series (baseline, 2hr, 4hr, 6hr) (03/21/2025 10:49 PM CDT) Trop T hs 27(H) <=14 ng/L Comment: Interpretive Data For further hscTnT resources including the diagnostic algorithm and an aid in interpretation, copy and paste this link: https://nrl.testcatalog.org/show/hsTrop Current Interpretive Data last revised 2020. Testing performed by: [facility], [address] [place] [address]., [address] Blood 03/21/2025 10:4 9 PM CDT 03/21/2025 10:57 PM CDT Misti Tobar NP LAB BLOOD ORDERABLES Final Resul t Performing Organization Address [facility] de Phone Number [id number] [place] [address] * (ABNORMAL) eGFR (03/21/2025 10:49 PM CDT) [...] was last reviewed 2021. Testing performed by: [address] [address] Blood 03/21/2025 10:4 9 PM CDT 03/21/2025 10:57 PM CDT Misti Tobar NP LAB BLOOD ORDERABLES Final Resul t Performing Organization Address [facility] de Phone Number [place] [id number] [facility] [place] [address] * (ABNORMAL) Differential, auto (03/21/2025 10:49 PM CDT) Neutrophil abs 10.23(H) 1.50 - 6.50 K/cumm Comment:Testing performed by : [address] [address] Imm gran abs 0.13(H) 0.00 - 0.10 K/cumm [place] Comment:Testing performed by : [address], [place]., [address] Lymphocyte abs 0.65(L) 0.80 - 3.30 K/cumm [place] Comment:Testing performed by : [address] [address] Monocyte abs 0.07(L) 0.20 - 0.80 K/cumm [place] Comment:Testing performed by : [address], [place]., [address] Eosinophil abs 0.00 0.00 - 0.50 K/cumm [place] Comment:Testing performed by : [address] [address] Basophil abs 0.03 0.00 - 0.10 K/cumm [facility] Comment:Testing performed by : [address] [address] Neutrophil pct 92.0 % [place] Comment: Interpretive Data Percent cell count reference ranges are not reported, since discordance with absolute values may lead to misinterpretation of CBC data. Current Interpretive Data was last revised on 2018. Testing performed by: [address] [address] Imm gran pct 1.2 % [facility] Comment: Interpretive Data Percent cell count reference ranges are not reported, since discordance with absolute values may lead to misinterpretation of CBC data. Current Interpretive Data was last revised on 2018. Testing performed by: [address] [address] Lymphocyte pct 5.9 % [facility] Comment: Interpretive Data Percent cell count reference ranges are not reported, since discordance with absolute values may lead to misinterpretation of CBC data. Current Interpretive Data was last revised on 2018. Testing performed by: [address] [address] Monocyte pct 0.6 % CERCHELI Comment: Interpretive Data Percent cell count reference ranges are not reported, since discordance with absolute values may lead to misinterpretation of CBC data. Current Interpretive Data was last revised on 2018. Testing performed by: [address] [address] Eosinophil pct 0.0 % [place] Comment: Interpretive Data Percent cell count reference ranges are not reported, since discordance with absolute values may lead to misinterpretation of CBC data. Current Interpretive Data was last revised on 2018. Testing performed by: [address] [address] Basophil pct 0.3 % [place] Comment: Interpretive Data Percent cell count reference ranges are not reported, since discordance with absolute values may lead to misinterpretation of CBC data. Current Interpretive Data was last revised on 2018. Testing performed by: [address] [address] Blood 03/21/2025 10:4 9 PM CDT 03/21/2025 10:57 PM CDT us Misti Tobar NP LAB BLOOD ORDERABLES Final Resul t [place] [address] [place] [address] * (ABNORMAL) CBC with auto differential (03/21/2025 10:49 PM CDT) WBC 11.11(H) 3.80 - 9.90 K/cumm Comment:Testing performed by : [address] [address] Hgb 13.7 11.9 - 15.5 g/dL [place] Comment:Testing performed by : [address] [address] Hct 42.8 35.6 - 45.5 % [place] Comment:Testing performed by : [address] [address] Plt 230 150 - 400 K/cumm [place] Comment:Testing performed by : [address] [address] MPV 10.4 9.1 - 12.3 fL [place] Comment:Testing performed by : [address] [address] RBC 5.12 3.90 - 5.20 M/cumm [place] Comment:Testing performed by : [address] [address] MCV 83.6 81.3 - 96.4 fL [place] Comment:Testing performed by : [address] [address] MCH 26.8(L) 27.1 - 33.3 pg [place] Comment:Testing performed by : [address] [address] MCHC 32.0(L) 32.3 - 35.7 g/dL [place] Comment:Testing performed by : [address], [address] RDW CV 15.2(H) 11.1 - 14.9 % [place] Comment:Testing performed by : [address] [address] RDW SD 46.4 35.7 - 48.1 fL [place] Comment:Testing performed by : [address] [address] NRBC abs 0.00 0.00 - 0.01 K/cumm [place] Comment:Testing performed by : [address] [address] Blood Venous blood specimen / Unknown 03/21/2025 10:49 PM CDT 03/21/2025 10:57 PM CDT us Misti Tobar RN ON SITE LAB BLOOD ORDERABLES Final Resul t [place] [address] [facility] [place] [address] * (ABNORMAL) Comprehensive metabolic panel (03/21/2025 10:49 PM CDT) Sodium 142 135 - 145 mmol/L Comment:Testing performed by : [address], [address] Potassium, pl 4.3 3.3 - 4.9 mmol/L [place] Comment:Testing performed by : [address] [address] Chloride 103 97 - 110 mmol/L [place] Comment:Testing performed by : [address] [address] CO2 25 22 - 32 mmol/L [place] Comment:Testing performed by : [address], [place]., [address] Anion gap 14 2 - 15 mmol/L [place] Comment:Testing performed by : [address] [address] BUN 27(H) 6 - 25 mg/dL [place] Comment:Testing performed by : [address] [address] Creatinine 1.94(H) 0.60 - 1.10 mg/dL [place] Comment:Testing performed by : [address] [address] Glucose 178 70 - 199 mg/dL [place] Comment: Interpretive Data Fasting glucose >/= 126 mg/dl is diagnostic for diabetes. Fasting is defined as no caloric intake for at least 8 hours. Fasting glucose between 100 mg/dl to 125 mg/dl is
--- OUTSIDE RECORDS SUMMARY | 2025-03-22 13:50 | XMS_ITS | Clinical Summary ---
Author Organization [facility] Address [address], [place] [address] Phone Care Team Providers Care Rental Car Ferry Driver Name Role Phone Jn Velásquez MD Primary Care Provider [phone] Allergies Active Allergy Reactions Criticality Noted Date [...] 0 Active ergocalciferol (VITAMIN D2) 1.25 MG (01013 UT) capsule Take 50,000 Units by mouth [...] on file Legal Sex Female 8:46 AM [facility] Gender Identity Not on file Sexual Orientation [...] Vaccine (Season Ended) 2025 Insurance MEDICAID - [place] [employer] MEDICARE Care Teams Rental Car Ferry Driver Relationship Specialty Start Date End Date Jn Velásquez MD [address] [place] [address] PCP - General Internal Medicine 06/18/20
--- OUTSIDE RECORDS SUMMARY | 2025-03-22 13:50 | XMS_ITS | Patient Health Record ---
Author Organization [facility] [employer] [place] Address [address] [place] [address] Care Team Providers Care Stock Digger Name Role Phone Sandie Irwin Unavailable [phone] Migration, Provider Unavailable Unavailable Allergies Allergen (clinical [...] DAPAGLIFLOZIN PROPANEDIOL 10 MG TABLET *Reorder from [facility] for eRx and Interaction Alerts* 03/19/2024 Unknown oxyBUTYnin Chloride ER 10 MG Oral 03/19/2024 Unknown Unithroid 88 mcg Oral 03/19/2024 Un known Korlym 300 mg Oral 03/19/2024 Unkno wn Farxiga 10 MG Oral 03/19/2024 Unkno wn PREGABALIN 200 MG CAPSULE *Reord er from [facility] for eRx and Interaction Alerts* 03/19/2024 Unknown dexAMETHasone 1 MG Oral 03/19/2024 Unknown Albuterol Sulfate (2.5 MG/3ML) 0.083% Inhalation 03/19/2024 Unknown Magnesium Oxide (Elemental) 400 MG Oral *Reorder from [facility] for eRx and Interaction Alerts* 03/19/2024 Unknown ProAir HFA 108 (90 Base) MCG/ACT Inhalation 03/19/2024 Unknown Chlorthalidone 25 MG Oral 03/19/2024 Unknown Azithromycin 250 MG Oral 03/19/2024 Unknown Isosorbide Mononitrate ER 30 MG Oral 03/19/2024 Unknown Rosuvastatin Calcium 10 MG Oral 03/19/2024 Unknown KERENDIA 10 MG TABLET *Reorder f [facility] for eRx and Interaction Alerts* 03/19/2024 Unknown INSULIN SYRINGE/U-100/1ML/31G X 5/1 6 31G X 5/16 1 ML MISC *Reorder from [facility] for eRx and Interaction Alerts* 03/19/2024 Unknown rOPINIRole HCl 0.5 MG Oral 03/19/2024 Unknown Ergocalciferol 1.25 MG (69477 UT) Oral 03/19/2024 Unknown Atenolol 25 MG Oral 03/19/2024 Unkn own Allopurinol 100 MG Oral 03/19/2024 Unknown hydroCHLOROthiazide 25 MG Oral 03/19/2024 Unknown Nitroglycerin 0.4 MG Sublingual 03/19/2024 Unknown Breztri Aerosphere 160-9-4.8 MCG/ACT Inhalation *Reorder from [facility] for eRx and Interaction Alerts* [...] (F33.2) Active confirmed Problem Generalized anxiety disorder (94687440) Generalized anxiety disorder (F41.1) Active confirmed Problem Primary insomnia (2384765) Primary insomnia (F51.01) Active confirmed Vital Signs Heart Rate 96 /min 01/21/2025 Height-cm 162.56 cm 01/21/2025 Blood pressure diastolic 65 mm Hg 01/21/2025 Weight-kg 108.86 kg 01/21/2025 Height 64.00 in 01/21/2025 Blood pressure systolic 159 mm Hg 01/21/2025 Weight 240 lbs 01/21/2025 BMI 41.19 kg/m2 01/21/2025 Encounters Encounter Location Date Provider Diagnosis [facility] [employer] [facility] [address] [address] 07/24/2024 Sandie Irwin Major depressive disorder, recurrent severe without psychotic features F33.2 ; Generalized anxiety disorder F41.1 and Primary insomnia F51.01 [facility] [place] [id number] [place] [address] 01/21/2025 Sandie Irwin Benign essential HTN I10 ; Encounter for screening for cardiovascular disorders Z13.6 ; Dietary counseling and surveillance Z71.3 ; Encounter for screening for depression Z13.31 ; Major depressive disorder, recurrent severe without psychotic features F33.2 ; Generalized anxiety disorder F41.1 and Primary insomnia F51.01 [facility] [employer] [facility] [address] [place] [address] 03/24/2024 Provider Migration [facility] [employer] [facility] [address] [place] [address] 03/25/2024 Provider Migration Assessments Encounter Date Diagnosis [...] effects of psychotropic medications. -Crisis prevention hotline 218. Plan Of Treatment Next Appt Details Provider Name:Sandie Khalil matti, 07/22/2025 01:00:00 PM, [address], [facility] [address], [place], [address], Insurance Providers Payer Name Payer Address Payer Phone Subscriber Number Group Number Insured Name Patient Relationship to Insured Coverage Start Date Coverage End Date [employer] Medicare Replacement/ Advantage - Ppo [address] [address] [place] [address] [id number] JESU HARLEY Self - patient is the insured [place] Medicaid [address] [address] [place] [address] [id number] JESU HARLEY Self - patient is the [...] Surgical History Surgery Date(Month/Year) Removal of gallbladder (26813) Cosmetic surgery 11/07/1999
--- OUTSIDE RECORDS SUMMARY | 2025-03-22 13:51 | XMS_ITS | Clinical Summary ---
Author Organization [employer] [facility] on Address [address] [facility] [place] [address] Phone Care Team Providers Care Music Video Director Name Role Phone Unavailable Primary Care Provider [...]
--- OUTSIDE RECORDS SUMMARY | 2025-03-22 13:51 | XMS_ITS | Clinical Summary ---
Author Organization [facility] Address [facility]ly [facility] [place] [address] Care Team Providers Care R&D Lab Technician Name Role Phone Unavailable Primary Care [...]
--- OUTSIDE RECORDS SUMMARY | 2025-03-22 13:51 | XMS_ITS | Referral Summary ---
Author Organization [facility] Address [address] [place] [address] Care Team Providers Care Flight Engineer Performance Qualified Name Role Phone Waqas De Leon MD Unavailable [phone] Waqas De Leon MD Unavailable [phone] Cortney Corona MD Unavailable Jn Velásquez MD Primary Care Provider [phone] Miscellaneous, Not In File Unavailable Unava ilDaniel Mckeon MD Unavailable [phone] James Cifuentes MD Unavailable Encounters Date Type Department Care Team Description 03/22/2025 12:29 AM CDT - 03/22/2025 1:05 AM CDT Emergency [facility] Emergency Department [address] [place] [address] Discharge Disposition: Left Against Medical Advice 01/18/2025 Telephone [facility] Rheumatology [address] [facility] [address]th [place] [address] Zarina Carroll MD Discuss Test Results 01/14/2025 Telephone [facility] Endocrinology Metabolism and Lipid [address] 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 Follow-up 2-3 days after discharge, to consider restarting Mifepristone. Also to monitor Synthroid dose and thyroid studies - DC'd with 88mcg synthroid. 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 Fitch at [facility] on 06/28 Acute pulmonary edema 05/18/20222021 Assessment [...] on room air- transition to torsemide per union representative, add low dose potassium supplement. Continue to [...] often do you attend chur ch or christian services? 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 Seen and discharged at [facility] TECHNIQUE: Single radiographic view of [...] Dorie Kenney M.D. SN: SN Report ID: [id number] Reading Location: [id number] Procedure Note Dorie Kenney MD - 03/21/2025 EXAM DESCRIPTION: XR CHEST 1 VIEW REASON FOR STUDY: chest pain Patient with SOB for several months. Seen and discharged at [facility] TECHNIQUE: Single radiographic view of the [...] by Dorie Kenney M.D. SN: Report ID: [id number] Reading Location: [id number] Misti Tobar NP IMG XR PROCEDURES Final Result * (ABNORMAL) Troponin T high-sensitivity series (baseline, 2hr, 4hr, 6hr) (03/21/2025 10:49 PM CDT) Trop T hs 27(H) <=14 ng/L Comment: Interpretive Data For further hscTnT resources including the diagnostic algorithm and an aid in interpretation, copy and paste this link: https://nrl.testcatalog.org/show/hsTrop Current Interpretive Data last revised 2020. Testing performed by: [facility], [address] [place] [address]., [address] Blood 03/21/2025 10:4 9 PM CDT 03/21/2025 10:57 PM CDT Misti Tobar NP LAB BLOOD ORDERABLES Final Resul t [facility] [address] [facility] Department [place] [address] * (ABNORMAL) eGFR (03/21/2025 10:49 PM CDT) [...] was last reviewed 2021. Testing performed by: [address] [address] Blood 03/21/2025 10:4 9 PM CDT 03/21/2025 10:57 PM CDT us Misti Tobar NP LAB BLOOD ORDERABLES Final Resul t [facility] [place] [address] * (ABNORMAL) Differential, auto (03/21/2025 10:49 PM CDT) Neutrophil abs 10.23(H) 1.50 - 6.50 K/cumm Comment:Testing performed by : [address] [address] Imm gran abs 0.13(H) 0.00 - 0.10 K/cumm [facility] Comment:Testing performed by : [address] [address] Lymphocyte abs 0.65(L) 0.80 - 3.30 K/cumm [facility] Comment:Testing performed by : [address] [address] Monocyte abs 0.07(L) 0.20 - 0.80 K/cumm [facility] Comment:Testing performed by : [address] [address] Eosinophil abs 0.00 0.00 - 0.50 K/cumm [facility] Comment:Testing performed by : [address] [address] Basophil abs 0.03 0.00 - 0.10 K/cumm [facility] Comment:Testing performed by : [address] [address] Neutrophil pct 92.0 % [facility] Comment: Interpretive Data Percent cell count reference ranges are not reported, since discordance with absolute values may lead to misinterpretation of CBC data. Current Interpretive Data was last revised on 2018. Testing performed by: [address] [address] Imm gran pct 1.2 % [facility] Comment: Interpretive Data Percent cell count reference ranges are not reported, since discordance with absolute values may lead to misinterpretation of CBC data. Current Interpretive Data was last revised on 2018. Testing performed by: [address] [address] Lymphocyte pct 5.9 % [facility] Comment: Interpretive Data Percent cell count reference ranges are not reported, since discordance with absolute values may lead to misinterpretation of CBC data. Current Interpretive Data was last revised on 2018. Testing performed by: [address] [address] Monocyte pct 0.6 % [facility] Comment: Interpretive Data Percent cell count reference ranges are not reported, since discordance with absolute values may lead to misinterpretation of CBC data. Current Interpretive Data was last revised on 2018. Testing performed by: [address] [address] Eosinophil pct 0.0 % [facility] Comment: Interpretive Data Percent cell count reference ranges are not reported, since discordance with absolute values may lead to misinterpretation of CBC data. Current Interpretive Data was last revised on 2018. Testing performed by: [address] [address] Basophil pct 0.3 % [facility] Comment: Interpretive Data Percent cell count reference ranges are not reported, since discordance with absolute values may lead to misinterpretation of CBC data. Current Interpretive Data was last revised on 2018. Testing performed by: [address] [address] Blood 03/21/2025 10:4 9 PM CDT 03/21/2025 10:57 PM CDT us Misti Tobar NP LAB BLOOD ORDERABLES Final Resul t [facility] [address] [facility] [place] [address] * (ABNORMAL) CBC with auto differential (03/21/2025 10:49 PM CDT) [facility] Signature WBC 11.11(H) 3.80 - 9.90 K/cumm Comment:Testing performed by : [address] [address] Hgb 13.7 11.9 - 15.5 g/dL [facility] Comment:Testing performed by : [address] [address] Hct 42.8 35.6 - 45.5 % [facility] Comment:Testing performed by : [address] [address] Plt 230 150 - 400 K/cumm [facility] Comment:Testing performed by : [address] [address] MPV 10.4 9.1 - 12.3 fL [facility] Comment:Testing performed by : [address] [address] RBC 5.12 3.90 - 5.20 M/cumm [facility] Comment:Testing performed by : [address] [address] MCV 83.6 81.3 - 96.4 fL [facility] Comment:Testing performed by : [address] [address] MCH 26.8(L) 27.1 - 33.3 pg [facility] Comment:Testing performed by : [address] [address] MCHC 32.0(L) 32.3 - 35.7 g/dL [facility] Comment:Testing performed by : [address] [address] RDW CV 15.2(H) 11.1 - 14.9 % [facility] Comment:Testing performed by : [address] [address] RDW SD 46.4 35.7 - 48.1 fL [facility] Comment:Testing performed by : [address] [address] NRBC abs 0.00 0.00 - 0.01 K/cumm [facility] Comment:Testing performed by : [address] [address] Blood Venous blood specimen / Unknown 03/21/2025 10:49 PM CDT 03/21/2025 10:57 PM CDT us Misti Tobar NP LAB BLOOD ORDERABLES Final Resul t [facility] [address] [facility] [place] [address] * (ABNORMAL) Comprehensive metabolic panel (03/21/2025 10:49 PM CDT) Sodium 142 135 - 145 mmol/L Comment:Testing performed by : [address] [address] Potassium, pl 4.3 3.3 - 4.9 mmol/L [facility] Comment:Testing performed by : [address] [address] Chloride 103 97 - 110 mmol/L [facility] Comment:Testing performed by : [address] [address] CO2 25 22 - 32 mmol/L [facility] Comment:Testing performed by : [address] [address] Anion gap 14 2 - 15 mmol/L [facility] Comment:Testing performed by : [address] [address] BUN 27(H) 6 - 25 mg/dL [facility] Comment:Testing performed by : [address] [address] Creatinine 1.94(H) 0.60 - 1.10 mg/dL [facility] Comment:Testing performed by : [address] [address] Glucose 178 70 - 199 mg/dL [facility] [...] classification and Diagnosis of Diabetes Diabetes Care 2021; 46: S19-S40. Current interpretive data was last revised 2022. Testing performed by: [address] [address] Calcium 9.6 8.5 - 10.3 mg/dL [facility] Comment:Testing performed by : [address] [address] Bilirubin, total 0.5 0.1 - 1.2 mg/dL [facility] Comment:Testing performed by : [address] [address] Protein, pl 7.5 6.5 - 8.5 g/dL [facility] Comment:Testing performed by : [address] [address] Albumin 4.1 3.5 - 5.0 g/dL [facility] Comment:Testing performed by : [address] [address] Alk phos 69 40 - 130 Units/L [facility] Comment:Testing performed by : [address] [address] ALT 10 7 - 45 Units/L [facility] Comment:Testing performed by : [address] [address] AST 26 10 - 45 Units/L [facility] Comment:Testing performed by : [address] [address] Blood 03/21/2025 10:4 9 PM CDT 03/21/2025 10:57 PM CDT us Misti Tobar NP LAB BLOOD ORDERABLES Final Resul t [facility] [address] Department [place] [address] * Hepatitis panel, acute Blood (08/10/2024 12:01 PM CDT) Hep A IgM Nonreactive Nonreactive Hep B core IgM Non [id number]|2025-03-22 13:51:00|2025-03-22 13:50:00|XMS_ITS|BKG DAEMON|External Medical Summaries|[id number]|" Encounter Summary Created on: March 22, 2025 Jacy Mills : 1945 Sex: Female Author Organization [facility] Address [address] [facility] [address] [place] [address] Phone Care Team Providers Care Flight Engineer Performance Qualified Name Role Phone Jn Velásquez MD Primary Care Provider [phone] Waqas De Leon MD Unavailable [phone] Waqas De Leon MD Unavailable [phone] Cortney Corona MD Unavailable [phone] Stephanie Morrissey MD Primary Care Provider [phone] Jn Velásquez MD Primary Care Provider [phone] Miscellaneous, Not In File Unavailable Unava ilable Daniel Go MD Unavailable [phone] James Cifuentes MD Unavailable Encounter Details Date Type Department Care Team [...] on file 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
--- OUTSIDE RECORDS SUMMARY | 2025-03-22 13:51 | XMS_ITS | CONTINUITY OF CARE DOCUMENT ---
Author Name narinder, narinder Address Unknown Organization [facility] Address [address] [address] [place] [address] Phone [phone] Care Team Providers Care Data Governance Consultant Name Role Phone Braulio KING, Roberto Carlos Unavailable [phone] SIOBHAN KING, JN Unavailable JN MCCANN MD Unavailable PROBLEMS Condition Status Date Provider Notes Abnormal nuclear stress test active Roberto Carlos Ramsey MD Cough active Cedric Valdez CHF - diastolic active Staci Green NP Aortic stenosis active Staci Green NP [...] MD Bacteremia S/P PACEMAKER EXPLANTATION active Armani Annie Chronotropic incompetence active Faisal Jiang i, MD Bradycardia sinus completed - Staci Diaz NP Sleep apnea, obstructive - o n CPAP active Roberto Carlos Ramsey MD Leg pain completed - Staci Diaz COOK CHEF Leg edema active Faisal Carlos MD S/P [...] Date Type Provider Location Encounter Diag nosis 03/08 - 03/08 In-person encounter Office Visit Roberto Carlos Ramsey MD [facility] Cough 12/14 - 12/14 In-person encounter Office Visit Roberto Carlos Ramsey MD [facility] Aortic stenosisCHF - diastolic 12/13 - 12/13 In-person encounter Office Visit Roberto Carlos Ramsey MD [facility] Orthostatic hypotension 11/11 - 11/11 In-person encounter Office Visit Roberto Carlos Rmasey MD [facility] - 0 In-person encounter Office Visit Roberto Carlos Ramsey MD [facility] 07/06 - 07/07 In-person encounter Office Visit Roberto Carlos Ramsey MD [facility] 05/04 - 05/08 In-person encounter Office Visit Roberto Carlos Ramsey MD [facility] 03/11 - 03/11 In-person encounter Office Visit Roberto Carlos Ramsey MD [facility] 02/25 - 02/25 In-person encounter Office Visit Roberto Carlos Ramsey MD [facility] Chest pain-type to be determined - In-person encounter Office Visit Roberto Carlos Ramsey MD [facility] 06/04 - 06/08 In-person encounter Office Visit Roberto Carlos Ramsey MD [facility] 03/05 - 03/08 In-person encounter Office Visit Roberto Carlos Ramsey MD [facility] 12/25 - 01/04 In-person encounter Office Visit Roberto Carlos Ramsey MD [facility] Leg painBradycardia sinusCOPDSpinal sten osis, lumbar region with neurogenic claudicationChronic kidney disease stage 2 03/13 - 03/13 In-person encounter Office Visit Roberto Carlos Ramsey MD [facility] Hx of tobacco abusePVD 02/14 - 02/18 In-person encounter Office Visit Roberto Carlos Ramsey MD [facility] 02/09 - 02/09 In-person encounter Office Visit Roberto Carlos Ramsey MD [facility] Aortic regurgitation, mild-moderate 0 - 0 In-person encounter Office Visit Roberto Carlos Ramsey MD [facility] 12/22 - 12/22 In-person encounter Office Visit Roberto Carlos Ramsey MD [facility] Hx of tobacco abuse 11/23 - 11/23 In-person encounter Office Visit Roberto Carlos Ramsey MD [facility] Abdominal bruit 03/25 - 04/06 In-person encounter Office Visit Roberto Carlos Ramsey MD [facility] 12/10 - 12/15 In-person encounter Office Visit Roberto Carlos Ramsey MD [facility] Carotid artery stenosis, <50% ICA b/lSle ep apnea, obstructive - on CPAPArthritisFatigueAnxietyDepression 12/09 - 12/17 In-person encounter Office Visit Roberto Carlos Ramsey MD [facility] Carotid artery stenosis, <50% ICA b/lS/P EXPLANTED Biotronik dc (MRI Safe) pmBacteremia S/P PACEMAKER EXPLANTATIONObesity 11/24 - 11/28 In-person encounter Office Visit Roberto Carlos Ramsey MD [facility] HypothyroidismDiaphoresisHypertensionArt hritis - In-person encounter Office Visit Roberto Carlos Ramsey MD [facility] Bacteremia S/P PACEMAKER EXPLANTATION - In-person encounter Office Visit Faisal Carlos MD [facility] Leg edemaSleep apnea, obstructive - on CPAPChronotropic incompetence 12/14 - 12/17 In-person encounter Office Visit Faisal Carlos MD [facility] Carotid artery stenosis, <50% ICA b/l 11/22 - 11/25 In-person encounter Office Visit Faisal Carlos MD [facility] Shortness of breathHx of tobacco abuseDizzinessHypothyroidismDiaphoresis VITAL SIGNS Date Observation Value Provider Body Mass Index (Ratio) 44.07 kg/m2 Cedric Valdez blood pressure, cuff size regular La adore Stonet blood pressure, diastolic 79 mm[Hg] La adore Sharif blood pressure, systolic 157 mm[Hg] Lat onya Sharif oxygen saturation, oximetry 98 % Rae Sharif respiratory rate E&M 19 /min Rae Stonet pulse rate 76 /min Rae Stone weight E&M 241 [lb_av] [facility]&M 62 [in_i] Rae Stone Body Mass Index (Ratio) 46.45 kg/m2 Cedric Valdez blood pressure, diastolic 66 mm[Hg] toro [facility] blood pressure, systolic 144 mm[Hg] [facility] oxygen saturation, oximetry 97 % [facility] respiratory rate E&M 20 /min [facility] Chai [facility] pulse rate 64 /min [facility] weight E&M 254 [lb_av] [facility] blood pressure, cuff size regular Gina engel [facility] height E&M 62 [in_i] [facility] Body Mass Index (Ratio) 43.53 kg/m2 Cong as Jordan blood pressure, cuff size large Ke rri Gruenenfelder blood pressure, diastolic 72 mm[Hg] Ke rri Gruenenfelder blood pressure, systolic 126 mm[Hg] Ker ri Gruenenfelder oxygen saturation, oximetry 91 % Nia Gruenenfelder pulse rate 65 /min Nia Gruenenfe er weight E&M 238 [lb_av] Nia Gruenenfe lder height E&M 62 [in_i] Nia Gruenenfe er Body Mass Index (Ratio) 44.81 kg/m2 Cong as Jordan blood pressure, cuff size large Ke rri Gruenenfelder blood pressure, diastolic 80 mm[Hg] Ke rri Gruenenfelder blood pressure, systolic 122 mm[Hg] Ker ri Gruenenfelder oxygen saturation, oximetry 95 % Nia Gruenenfelder respiratory rate E&M 12 /min Nia G swatienenfelder pulse rate 68 /min Nia Gruenenfe lder weight E&M 245 [lb_av] Nia Gruenenfe lder height E&M 62 [in_i] Nia Gruenenfe [facility] Body Mass Index (Ratio) 41.88 kg/m2 Cedric Danielsreyna pulse rate 69 /min Nanci Gene blood pressure, diastolic 64 mm[Hg] An [facility] blood pressure, systolic 140 mm[Hg] Any ana Gene oxygen saturation, oximetry 92 % Nanci Gene weight E&M 229 [lb_av] Nanci Gene blood pressure, cuff size large An [facility] height E&M 62 [in_i] Nanci Gene Body Mass Index (Ratio) 40.78 kg/m2 Ike Ramsey MD blood pressure, cuff size regular Ke rri Gruenenfeldprachi blood pressure, diastolic 80 mm[Hg] Ke rri Gruenenfelder blood pressure, systolic 130 mm[Hg] Ker ri Tennillenenfjesus oxygen saturation, oximetry 92 % Nia Montez respiratory rate E&M 14 /min Nia G swatienedino pulse rate 56 /min Nia Gruenenfe [facility] weight E&M 223 [lb_av] Nia Grnedranenfe [facility] height E&M 62 [in_i] Nia Gruenenfe [facility] Body Mass Index (Ratio) 40.23 kg/m2 Ike Ramsey MD blood pressure, cuff size regular Ke rri Gruenenfelder blood pressure, diastolic 80 mm[Hg] Ke rri Gruenenfelder blood pressure, systolic 160 mm[Hg] Ker ri Khaiuenenfelder oxygen saturation, oximetry 92 % Nia Gruenenfelder respiratory rate E&M 14 /min Nia G ruenenfelder pulse rate 74 /min Nia Gruenenfe lder weight E&M 220 [lb_av] Nia Gruenenfe lder height E&M 62 [in_i] Nia Gruenenfe lder Body Mass Index (Ratio) 39.87 kg/m2 [facility], cuff size regular Ke [...] lder Body Mass Index (Ratio) 40.42 kg/m2 [facility], cuff size regular Ke rri Gruenenfelder blood pressure, diastolic 58 mm[Hg] Je nnifer Fendler COOK CHEF blood pressure, systolic 140 mm[Hg] Oliva nifer Fendler COOK CHEF oxygen saturation, oximetry 93 % Nia Gruenenfelder [...] blood pressure, diastolic 61 mm[Hg] Hallie garcia [place] blood pressure, systolic 114 mm[Hg] Charlie darius [place] oxygen saturation, oximetry 94 % Marti [place] pulse rate 70 /min Marti [facility] adal weight E&M 213 [lb_av] Marti [facility] adal respiratory rate E&M 16 /min Madelyn silver [place] blood pressure, cuff size large Hallie garcia [place] height E&M 62 [in_i] Marti galeas Body Mass Index (Ratio) 38.41 kg/m2 Ike Ramsey MD blood pressure, diastolic 80 mm[Hg] Li nkLogic blood pressure, systolic 191 mm[Hg] Verna kLogic blood pressure, diastolic 80 mm[Hg] Ke rri Montez blood pressure, systolic 191 mm[Hg] Laurie ri Montez blood pressure, cuff size large Ke rri Khaiuenicollenfjesus Inhaled O2 3 L/min Nia Akash [facility] oxygen saturation, oximetry 98 % Nia Montez respiratory rate E&M 16 /min Nia G swatienenfjesus pulse rate 76 /min Nia Olivianfe er weight E&M 210 [lb_av] Nia Tennillenenfe lder height E&M 62 [in_i] Nia Khaiuenenfe er Body Mass Index (Ratio) 40.78 kg/m2 Cedric Valdez blood pressure, diastolic 70 mm[Hg] Li nkLogic [...] lder height E&M 62 [in_i] Nia Gruenenfe er [...] lder Body Mass Index (Ratio) 38.59 kg/m2 [place] on Al blood pressure, cuff size large [...] Greenberg blood pressure, diastolic 78 mm[Hg] Cy sidra Augustine blood pressure, systolic 152 mm[Hg] Mariluz tania Augustine blood pressure, cuff size regular Cy sidra Augustine respiratory rate E&M 16 /min Concha Augustine pulse rate 89 /min Conchatania Lewisbel l oxygen saturation, oximetry 97 % Concha [...] Tomás Matthews respiratory rate E&M 16 /min Tomás Matthews pulse rate 77 /min Tomás Matthews weight E&M 208 [lb_av] Tomás Matthews height E&M 62 [in_i] [place] Matthews Body Mass Index (Ratio) 36.94 kg/m2 Ike Ramsey MD blood pressure, diastolic 78 mm[Hg] Cookie Alexis Brian blood pressure, systolic 175 mm[Hg] Radha Carson Brian oxygen saturation, oximetry 95 % GeraldineDawna Torres respiratory rate E&M 18 /min Larissa trinity Torres pulse rate 66 /min Geraldine Nowak carroll weight E&M 202 [lb_av] Geraldine Nowak guzman height E&M 62 [in_i] Geraldine Noawk carroll Body Mass Index (Ratio) 37.49 kg/m2 Ike Ramsey MD blood pressure, cuff size regular Bj Herrmann blood pressure, diastolic, standing 60 mm [Hg] Nia Herrmann blood pressure, systolic, standing 94 mm[ Hg] Nia Herrmann oxygen saturation, oximetry 93 % Nia Herrmann respiratory rate E&M 18 /min Nia means pulse rate 74 /min Nia jim weight E&M 205 [lb_av] Nia greener height E&M 62 [in_i] Nia green Body Mass Index (Ratio) 38.41 kg/m2 Ike [...] Body Mass Index (Ratio) 37.31 kg/m2 Dionicio craig [facility] blood pressure, cuff size regular Ke rri Virgieer blood pressure, diastolic 68 mm[Hg] Ke rri Olivianffitzer blood pressure, systolic 153 mm[Hg] Laurie Herrmann oxygen saturation, oximetry 97 % Nia Montez respiratory rate E&M 16 /min Nia G miguelangel pulse rate 69 /min Nia Akash lder weight E&M 204 [lb_av] Nia Akash lder height E&M 62 [in_i] Nia Akash er Body Mass Index (Ratio) 38.95 kg/m2 Dionicio craig Annie blood pressure, cuff size regular Ke rri Gruenedinoer blood pressure, diastolic 70 mm[Hg] Ke rri Gruenedinoer blood pressure, systolic 152 mm[Hg] Laurie ri Montez oxygen saturation, oximetry 97 % Nia Montez respiratory rate E&M 18 /min Nia G swatienenfjesus pulse rate 79 /min Nia Tennillenenfe lder weight E&M 213 [lb_av] Nia Grnedranenfe lder height E&M 62 [in_i] Nia Bustos er Body Mass Index (Ratio) 38.41 kg/m2 Ike Ramsey MD blood pressure, resting Yes Ike Ramsey MD blood pressure, diastolic 71 mm[Hg] Cookie Alexis Torres blood pressure, systolic 168 mm[Hg] Radha Carson Brian oxygen saturation, oximetry 91 % Geraldine Torres respiratory rate E&M 18 /min Larissa Torres pulse rate 70 /min Geraldine hodges weight E&M 210 [lb_av] Geraldine Nowak [facility] height E&M 62 [in_i] Geraldine Nowak [facility] blood pressure, diastolic 80 mm[Hg] Bj Herrmann blood pressure, systolic 144 mm[Hg] Laurie Herrmann pulse rate 52 /min Nia Bustos er oxygen saturation, oximetry 94 % Nia Herrmann respiratory rate E&M 20 /min Nia means Body Mass Index (Ratio) 43.53 kg/m2 Spencer reyna Herrmann weight E&M 238 [lb_av] Nia greener blood pressure, diastolic, left arm 58 mm [Hg] Ysabel Norris blood pressure, systolic, left arm 136 mm [Hg] Ysabel Norris blood pressure, diastolic, right arm 68 m m[Hg] Ysabel Norris blood pressure, systolic, right arm 129 m m[Hg] Ysabel Norris blood pressure, diastolic 58 mm[Hg] Nv gonzales Norris blood pressure, systolic 136 mm[Hg] Ruthie Norris pulse rate 68 /min Ysabel Norris oxygen saturation, oximetry 96 % Ysabel oLveann respiratory rate E&M 15 /min Ysabel Norris Body Mass Index (Ratio) 38.04 kg/m2 [facility] weight E&M 208 [lb_av] Ysabel Norris blood pressure, diastolic 71 mm[Hg] Nv gonzales Norris blood pressure, systolic 141 mm[Hg] Ruthie zamora Norris blood pressure, diastolic, left arm 73 mm [Hg] Ysabel Norris blood pressure, systolic, left arm 131 mm [Hg] Ysabel Norris blood pressure, diastolic, right arm 71 m m[Hg] [facility] blood pressure, systolic, right arm 141 m m[Hg] Ysabel Norris pulse rate 70 /min Ysabel [facility] oxygen saturation, oximetry 98 % Ysabel Norris respiratory rate E&M 15 /min Ysabel [facility] Body Mass Index (Ratio) 39.32 kg/m2 [facility] weight E&M 215 [lb_av] Ysabel Norris blood pressure, diastolic 75 mm[Hg] Cookie Torres blood pressure, systolic 158 mm[Hg] Radha Torres pulse rate 74 /min GeraldineDawna hodges oxygen saturation, oximetry 96 % Grealdine Torres respiratory rate E&M 18 /min Larissa Torres Body Mass Index (Ratio) 39.32 kg/m2 LuisaDawna Torres weight E&M 215 [lb_av] Geraldine hodges [...] Estab. 6 platelet count 268 X10E3/UL LinkLogic [phone]/02/2 6 red blood cell distribution width 14.5 [...] 0-149 1 cholesterol, serum 156 mg/dL [employer]Logic 259-610 1818/04/1 1 basophil count, absolute 0.1 x10E3/uL LinkLogic [...] Estab. 1 platelet count 366 X10E3/UL [employer] [phone]/04/1 1 red blood cell distribution width 14.0 [...] 3.5-5.2 1 sodium, serum 141 mmol/L [employer]ic [phone]/04/1 1 urea nitrogen/creatinine ratio, serum 13 [employer]ic 12-28 1 eGFR if 28 mL/min/{1 .73_m2} LinkLogic >59 Low 1 eGFR if not 24 mL/min/{1 .73_m2} LinkLogic >59 Low 1 creatinine, serum 2.02 mg/dL LinkLogic 0.57-1.00 High 1 urea nitrogen, blood 26 mg/dL LinkLogic 8-27 1 blood glucose, random 97 mg/dL LinkLogic 65-99 HISTORY OF MEDICATION USE Medication Status Instructions Dates Provider Indications Com ments levofloxacin 500 mg tablet active Take 1 tablet by mouth once a day 03/08 Cedric Valdez prednisone 20 mg tablet active Take 1 tablet by mouth once a day 03/08 Cedric Valdez Farxiga 10 mg tablet active TAKE 1 TABLET BY MOUTH DAILY Uriel Macias Aerosphere 160-9-4.8 mcg/actuation HFA aerosol inhaler active INHALE 2 PUFFS BY MOUTH TWICE DAILY. RINSE MOUTH WITH WATER AND SPIT Uriel Melchor minoxidil 2.5 mg tablet active TAKE 1 TABLET BY MOUTH EVERY DAY Uriel Melchor amlodipine 5 mg tablet active TAKE 1 TABLET BY MOUTH EVERY DAY 11/20 [facility] ergocalciferol (vitamin D2) 1,250 mcg (50,000 unit) capsule completed TAKE 1 CAPSULE BY MOUTH 1 TIME A WEEK 11/15 - 12/14 Urieltruong Melchor magnesium oxide 400 mg (241.3 mg magnesium) tablet active TAKE 1 TABLET BY MOUTH TWICE DAILY 03/29 [facility] isosorbide mononitrate 30 mg tablet extended release 24 hr active TAKE 1 TABLET BY MOUTH EVERY DAY 03/29 [facility] Breo Ellipta 100-25 mcg/dose blister with device [...] mg tablet completed - 07/06 Zuly Nalluri COOK CHEF Farxiga 5 mg tablet completed Take 1 [...] MOUTH EVERY DAY 02/25 - 07/06 Zuly Chapmanluri COOK CHEF nitroglycerin 0.4 mg tablet, sublingual active PLACE 1 TAB UNDER TONGUE EVERY 5 MIN NEEDED FOR CHEST PAIN (MAX 3 DOSES).IF NO RELIEF AFTER 3RD DOSE GO TO ER 02/25 Staci Green COOK CHEF Breo Ellipta 100-25 mcg/dose blister with device completed Inhale 1 puff as directed as directed INHALE 1 PUFF BY MOUTH EVERY DAY DIRECTED 11/28 - 02/25 Carley Wynn NP Breo Ellipta 100-25 mcg/dose blister with device completed INHALE 1 PUFF BY MOUTH EVERY DAY DIRECTED 11/27 - 02/25 Carley Wynn NP [id number]|2025-03-22 13:51:00|2025-03-22 13:51:00|XMS_ITS|BKG DAEMON|External Medical Summaries|[id number]|" Encounter Summary Created on: March 22, 2025 Jacy Mills : 1945 Sex: Female Author Organization [facility] Address [address] [place] [address] Phone Care Team Providers Care Data Governance Consultant Name Role Phone Jn Mccann MD Primary Care Provider [phone] Waqas De Leon MD Unavailable [phone] Waqas De Leon MD Unavailable [phone] Cortney Corona MD Unavailable [phone] Stephanie Morrissey MD Primary Care Provider [phone] Jn Mccann MD Primary Care Provider [phone] Miscellaneous, Not In File Unavailable Unava ilDaniel Mckeon MD Unavailable [phone] James Cifuentes MD Unavailable [phone] Encounter Details Date Type Department Care Team [...] often do you attend chur ch or rastafari services? Never 05/04/2022 Do you belong to [...] money to buy more. Never true 05/04/20 Within the past 12 months, t he [...] slept in a snf (including now)? No 05/04/2022 Comments Unknown Sex and Gender Information Value Date Recorded Sex Assigned at Not on file Legal Sex Female 7:23 PM TYPER Gender Identity Not on file Sexual Orientation [...] documented as of this encounter Care Teams Data Governance Consultant Relationship Specialty Start Date End Date Jn Mccann MD PCP - General Family Medicine 11/20/21 08/31/22 Stephanie Morrissey MD PCP - General Internal Medicine 09/01/22 05/28/23 Jn Mccann MD PCP - General Family Medicine 05/29/23 Waqas De Leon MD Internal Medicine 11/20/21 Waqas De Leon MD Internal Medicine 06/06/19 Cortney Corona MD Referring Physician Surgery 05/14/22 Miscellaneous, Not In File 05/31/23 Daniel Go MD [address] [place] [address] Consulting Physician Interventional Cardiology 05/31/23 [place] [address] [facility] [address] [place] [address] Consulting Physician Pulmonary Disease 05/31/23 documented as of this encounter "
--- NOTE | 2025-03-22 14:23 | ECG_ITS ---
Test Date: 2025-03-22 14:45:26 Measurements Intervals [place] Rate: 91 P: 50 LA: 198 QRS: -36 QRSD: 119 T: 77 QT: 400 QTc: 493 Interpretive Statements SINUS RHYTHM LEFT ANTERIOR FASCICULAR BLOCK LEFT VENTRICULAR HYPERTROPHY AND ST-T CHANGE [VOLTAGE CRITERIA PLUS ST/T ABNORMALITY] POSSIBLE ANTERIOR MYOCARDIAL INFARCTION , OF INDETERMINATE AGE [30 ms Q WAVE IN V3/V4, OR R < 0.2 mV IN V4] ABNORMAL ECG Electronically Signed On 03-23-2025 08:00:35 CDT by Kingston Hanson M.D.
--- NOTE | 2025-03-22 14:24 | ED.SOB ---
HPI - SOB/Dyspnea General Chief Complaint: Shortness of Breath/Dyspnea Stated Complaint: dyspnea Time Seen by Provider: 03/22/25 13:43 History of Present Illness HPI Narrative: Pt presents with SOB that has been going on for a long time. Pt has COPD. Pt was seen here yesterday for same complaint and came back last night and left without being seen and then went to [facility] and left from before being seen. Pt says she is still SOB. Pt oxygen sat on RA 97%. Related Data Home Medications Medication Instructions Recorded Confirmed Last Taken Type amlodipine 5 mg tablet 5 mg PO DAILY 09/21/22 03/22/25 03/22/25 History oxybutynin chloride 10 mg 10 mg PO HS 09/21/22 03/22/25 03/21/25 History tablet,extended release 24 hr magnesium oxide 400 mg PO BID 09/15/23 03/22/25 03/22/25 History rosuvastatin 10 mg tablet 10 mg PO HS 09/15/23 03/22/25 03/21/25 History vortioxetine 20 mg tablet 20 mg PO DAILY 09/15/23 03/22/25 03/21/25 History (Trintellix) furosemide 20 mg tablet 20 mg PO DAILY 12/07/23 03/22/25 03/22/25 History minoxidil 2.5 mg tablet 2.5 mg PO DAILY 12/04/24 03/22/25 03/22/25 History hydrocodone 10 mg-acetaminophen 1 tablet PO Q6H PRN pain 02/13/25 03/22/25 03/22/25 History 325 mg tablet levothyroxine 75 mcg tablet 75 mcg PO 0100 02/13/25 03/22/25 03/22/25 History (Unithroid) azithromycin 250 mg tablet 500 mg PO BID 03/22/25 03/22/25 03/22/25 History (Zithromax) loratadine 10 mg tablet 10 mg PO DAILY 03/22/25 03/22/25 03/22/25 History prednisone 20 mg tablet 20 mg PO DAILY@0800 03/22/25 03/22/25 03/21/25 History Allergies Allergy/AdvReac Type Severity Reaction Status Date / Time NILTON Inhibitors Allergy Unknown Angioedema Verified 03/22/25 17:09 lisinopril Allergy Dyspnea / Verified 03/22/25 17:09 SOB Review of Systems Review of Systems: All systems reviewed & are unremarkable except as noted in HPI and below PMFSH Past Medical History Medical History Diastolic dysfunction Aortic valve stenosis Obstructive sleep apnea Stage 3b chronic kidney disease Gastroesophageal reflux disease Hyperlipidemia Hypertension Thyroid cancer Primary insomnia Anemia Carpal tunnel syndrome Kidney stones Anxiety Depression Hypothyroidism Arthritis Hiatal hernia Asthma Chronic obstructive pulmonary disease Surgical History Surgical History History of lumbosacral spine surgery History of elbow surgery bilateral cubital tunnel release History of hysterectomy History of cholecystectomy History of permanent cardiac pacemaker placement History of cataract extraction History of total thyroidectomy History of carpal tunnel release Family History Family History Father Family history of heart disease in male family member before age 55 Family history of malignant neoplasm of brain Hypertension Pulmonary disease Mother Family history of heart disease in male family member before age 55 Family history of diabetes mellitus in first degree relative Social History Social History Social History: Surrogate medical decision maker: Neena Hazel, granddaughter. Code status: Full code. Smoking packs per day: 1 Smoking cigarettes per day: 20.0 Years smoked: 50 Smoking pack-years: 50.00 Smoking status: Former smoker Tobacco type: cigarettes Alcohol intake: never Substance use: never Substance use type: does not use Do You Feel Safe in your Home?: Yes Lack of Transportation: No Lack of Food: Never True Current Housing: I Have Housing Concerned About Future Housing: No Difficulty Paying Gas/Electric Bills: No Difficulty Paying for Meds: No Currently Unemployed: No Education: Trade/Vocational Certificate Difficulty w/ Childcare or Family Care: No Living arrangements: alone Additional living arrangements comments: The patient lives in her own home in [place]. 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: No Exam Const: General: healthy appearing and no acute distress Nutritional Appearance: obese Orientation/consciousness: patient oriented x3 Limitations: behavioral limitations Other: Pt very anxious and tearful. no respiratory distress. Chest: Chest palpation & inspection: normal inspection of the chest Resp: Effort & Inspection: normal respiratory effort Auscultation: wheezes Cardio: Rate: regular rate Rhythm: regular rhythm GI: GI Palp: Yes Soft to palpation and No Tenderness to palpation present (GI) Auscultation: normal bowel sounds Skin: General skin exam: normal color Rashes: no rashes Wounds: no wounds Neuro: General: patient oriented x3, moves all extremities and no focal motor deficits Speech: normal speech Extrem: General: normal to inspection and no clubbing, cyanosis or edema Psych: Mental Status: mental status grossly normal Affect: normal affect Attitude: cooperative Course Vital Signs Vital signs: Vital Signs Temperature 97.4 F L 03/22/25 13:17 Pulse Rate 102 H 03/22/25 13:17 Respiratory Rate 20 03/22/25 13:17 Blood Pressure 113/102 H 03/22/25 13:17 Pulse Oximetry 95 03/22/25 13:17 Oxygen Delivery Room Air 03/22/25 13:17 Temperature 99.0 F 03/22/25 17:09 Pulse Rate 101 H 03/22/25 17:09 Respiratory Rate 26 H 03/22/25 17:09 Blood Pressure 136/56 L 03/22/25 17:09 Pulse Oximetry 92 03/22/25 17:09 Oxygen Delivery Room Air 03/22/25 17:55 MDM - SOB/Dyspnea MDM Narrative Medical decision making narrative: Pt seen here yesterday and today and attempted to be seen here agina last night and at [facility] for SOB. Pt is very anxious and tearful. Does have COPD and is whezzing slightly but satting fine on RA and in no distress. will get labs and ekg and cxr again and give a neb and ativan IM for anxiety. trop elevated pnuemonia on cxr bnp elevated. discussed with Marita Zhang will admit. Lab Data 03/22/25 14:35 03/22/25 14:35 Labs: Lab Results 03/22/25 Range/Units 14:35 WBC 14.9 H (4.5-10.0) K/mm3 RBC 5.12 (4.2-5.4) M/mm3 Hgb 13.7 (12.0-15.0) g/dL Hct 44.9 (37.0-47.0) % MCV 87.7 (80-100) fl MCH 26.8 (26-34) pg MCHC 30.5 L (32-36) g/dl RDW 15.5 H (11.5-14.5) % Plt Count 260 (150-375) k/mm3 MPV 10.3 (7.4-10.4) fl Immature Gran % (Auto) 1.1 H (0-0.5) % Neut % (Auto) 88.8 H (45.5-73.1) % Lymph % (Auto) 4.4 L (18.3-44.2) % [place] % (Auto) 5.6 (2.6-8.5) % Eos % (Auto) 0.0 (0-4.4) % Baso % (Auto) 0.1 L (0.2-1.2) % Lymph # (Auto) 0.65 L (0.9-3.2) K/mm3 [place] # (Auto) 0.8 H (0.1-0.6) K/mm3 Eos # (Auto) 0.0 (0-0.3) K/mm3 Baso # (Auto) 0.0 (0.0-0.1) K/mm3 Abs Immat Gran (auto) 0.16 H (0.00-0.031) K/mm3 Absolute Neuts (auto) 13.3 H (1.3-6.7) K/mm3 Absolute Nucleated RBC 0.000 (0.0-0.012) K/mm3 Nucleated RBC % 0.0 (0.0-0.2) % Sodium 143 (137-145) mmol/L Potassium 3.8 (3.4-5.0) mmol/L Chloride 106 (98-107) mmol/L Carbon Dioxide 25 (22-30) mmol/L Anion Gap 12 (4-12) mmol/L BUN 35 H D (7-17) mg/dL Creatinine 1.75 H (0.7-1.0) mg/dL Estim Creat Clear Calc 28 ml/min Estimated GFR 28 L (59 - ) Glucose 164 H (65-110) mg/dL Calcium 9.1 (8.4-10.2) mg/dL Total Bilirubin 0.9 (0.2-1.3) mg/dL AST 48 H (14-36) U/L ALT 22 (6-35) U/L Alkaline Phosphatase 64 (38-126) U/L Troponin I 0.085 H* (0.000-0.034) ng/mL NT-Pro-B Natriuret Pep 1760 H (19.9-100) pg/mL Total Protein 8.0 (6.3-8.2) g/dL Albumin 4.3 (3.5-5.1) g/dL Discharge Plan Discharge Clinical Impression: Pneumonia, Acute exacerbation of chronic obstructive pulmonary disease, Elevated troponin Patient Disposition: Still a Patient Condition: Improved
[2025-03-22 14:43] LABS: Basophils Percent Auto 0.1 % (0.2-1.2); Hematocrit 44.9 % (37.0-47.0); Hemoglobin 13.7 g/dL (12.0-15.0); Immature Granulocyte Absolute 0.16 K/mm3 (0.00-0.031); Immature Granulocyte Percent A 1.1 % (0-0.5); Lymphocytes Absolute Auto 0.65 K/mm3 (0.9-3.2); Lymphocytes Percent Auto 4.4 % (18.3-44.2); Mean Corpuscular HGB Conc 30.5 g/dl (32-36); Mean Corpuscular Hemoglobin 26.8 pg (26-34); Mean Corpuscular Volume 87.7 fl (80-100); Mean Platelet Volume 10.3 fl (7.4-10.4); Monocytes Absolute Auto 0.8 K/mm3 (0.1-0.6); Monocytes Percent Auto 5.6 % (2.6-8.5); Neutrophils Absolute Auto 13.3 K/mm3 (1.3-6.7); Neutrophils Percent Auto 88.8 % (45.5-73.1); Platelet Count Result 260 k/mm3 (150-375); Red Blood Count 5.12 M/mm3 (4.2-5.4); Red Cell Distribution Width 15.5 % (11.5-14.5); White Blood Count 14.9 K/mm3 (4.5-10.0)
[2025-03-22] MEDS: IPRATROPIUM 0.5 MG/ALBUTEROL SULFATE 2.5 MG AMPUL.NEB 3 ML INHALATION ×4 (14:49→19:59)
[2025-03-22 14:52] LABS: Alanine Aminotransferase 22 U/L (6-35); Albumin Level 4.3 g/dL (3.5-5.1); Alkaline Phosphatase 64 U/L (38-126); Anion Gap 12 mmol/L (4-12); Aspartate Amino Transferase 48 U/L (14-36); Bilirubin,Total 0.9 mg/dL (0.2-1.3); Blood Urea Nitrogen 35 mg/dL (7-17); Calcium 9.1 mg/dL (8.4-10.2); Carbon Dioxide 25 mmol/L (22-30); Chloride 106 mmol/L (98-107); Estimated CRCL calculation 28 ml/min; Estimated Glomerular Filt Rate 28; Glucose 164 mg/dL (65-110); Potassium 3.8 mmol/L (3.4-5.0); Sodium 143 mmol/L (137-145)
[2025-03-22 15:07] LABS: NT Pro B Type Natriuretic Pept 1760 pg/mL (19.9-100); Troponin I 0.085 ng/mL (0.000-0.034)
[2025-03-22] MEDS: LORazepam INJ (*CRX) 2 MG/ML VIAL 1 MG IM (15:17)
[2025-03-22] MEDS: cefTRIAXone 2 GM/NS 100 ML 2 GM/100 ML BAG IVPB (15:40)
[2025-03-22] MEDS: methylPREDNISolone SOD SUCC 125 MG VIAL IV PUSH (15:40)
[2025-03-22] MEDS: AZITHROMYCIN 500 MG/NS 250 ML 500 MG/250 ML BAG 250 MG IVPB (15:41)
--- NOTE | 2025-03-22 17:08 | ADMGEN ---
This patient, Jacy Mills, was admitted to IMU Room 207-01 at approximately 1705. Patient/family oriented to hospital policies and general routines including ID bracelet, bed and alarms, visiting hours, pain management, procedures, bathroom and other care routines, personal items, smoking policy, room service/diet, and visiting hours. Information on how to activate the Rapid Response Team has been discussed. Patient/Family are encouraged to report perceived risks to care and to ask questions if they do not understand what they are told or what they should do.
--- NOTE | 2025-03-22 17:44 | P.HP_ITS ---
H&P: HPI History of Present Illness Date/Time: 03/22/25 17:44 Chief Complaint: Shortness of breath Narrative: 79-year-old female COPD, hypertension, thyroid cancer, anemia and stage 3 kidney disease presents the hospital with shortness of breath. Patient has had several admissions lately for COPD exacerbation. She states that she gets a little better and goes home in and a couple days she is back in hospital. Patient is unable to do most activities of daily living due to shortness of breath. Patient is extremely anxious and tearful on exam. Patient denies chest pain, nausea or vomiting, fever or chills. . The ED her lab work shows leukocytosis of 14.9, creatinine 1.75 with baseline being around 1.5, troponin 0.0508, BNP of 1760. Chest x-ray shows Persistent interstitial infiltrates of the left mid and lower lung, suspicious for pneumonia versus asymmetric edema. Patient is being admitted for COPD exacerbation. Review of Systems Review of Systems: 12 systems were reviewed and are negativ e except for as per HPI. [facility] Past Medical History Medical History Diastolic dysfunction Aortic valve stenosis Obstructive sleep apnea Stage 3b chronic kidney disease Gastroesophageal reflux disease Hyperlipidemia Hypertension Thyroid cancer Primary insomnia Anemia Carpal tunnel syndrome Kidney stones Anxiety Depression Hypothyroidism Arthritis Hiatal hernia Asthma Chronic obstructive pulmonary disease Surgical History Surgical History History of lumbosacral spine surgery History of elbow surgery bilateral cubital tunnel release History of hysterectomy History of cholecystectomy History of permanent cardiac pacemaker placement History of cataract extraction History of total thyroidectomy History of carpal tunnel release Family History Family History Father Family history of heart disease in male family member before age 55 Family history of malignant neoplasm of brain Hypertension Pulmonary disease Mother Family history of heart disease in male family member before age 55 Family history of diabetes mellitus in first degree relative Social History Social History Social History: Surrogate medical decision maker: Neena Hazel, granddaughter. Code status: Full code. Smoking packs per day: 1 Smoking cigarettes per day: 20.0 Years smoked: 50 Smoking pack-years: 50.00 Smoking status: Former smoker Tobacco type: cigarettes Alcohol intake: never Substance use: never Substance use type: does not use Do You Feel Safe in your Home?: Yes Lack of Transportation: No Lack of Food: Never True Current Housing: I Have Housing Concerned About Future Housing: No Difficulty Paying Gas/Electric Bills: No Difficulty Paying for Meds: No Currently Unemployed: No Education: Trade/Vocational Certificate Difficulty w/ Childcare or Family Care: No Living arrangements: alone Additional living arrangements comments: The patient lives in her own home in [place]. 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: No Meds Home Medications and Allergies Home Medications Medication Instructions Recorded Confirmed Type amlodipine 5 mg tablet 5 mg PO DAILY 09/21/22 03/22/25 History oxybutynin chloride 10 mg 10 mg PO HS 09/21/22 03/22/25 History tablet,extended release 24 hr magnesium oxide 400 mg PO BID 09/15/23 03/22/25 History rosuvastatin 10 mg tablet 10 mg PO HS 09/15/23 03/22/25 History vortioxetine 20 mg tablet 20 mg PO DAILY 09/15/23 03/22/25 History (Trintellix) furosemide 20 mg tablet 20 mg PO DAILY 12/07/23 03/22/25 History albuterol sulfate 90 mcg/actuation 2 puff inhalation QID PRN 07/11/24 03/22/25 Rx aerosol inhaler shortness of breath or wheezing #8.5 grams minoxidil 2.5 mg tablet 2.5 mg PO DAILY 12/04/24 03/22/25 History albuterol sulfate 2.5 mg/3 mL 2.5 mg (3 mL) inhalation Q4-6H PRN 12/30/24 03/22/25 Rx (0.083 %) solution for nebulization shortness of breath or wheezing #180 mL budesonide 0.5 mg/2 mL suspension 0.5 mg (2 mL) inhalation DAILY #60 01/16/25 03/22/25 Rx for nebulization mL dapagliflozin propanediol 10 mg 10 mg PO DAILY #30 tabs 01/21/25 03/22/25 Rx tablet (Farxiga) hydrocodone 10 mg-acetaminophen 1 tablet PO Q6H PRN pain 02/13/25 03/22/25 History 325 mg tablet levothyroxine 75 mcg tablet 75 mcg PO 0100 02/13/25 03/22/25 History (Unithroid) guaifenesin 600 mg tablet, 1,200 mg (2 x 600 mg) PO Q12HR #30 02/14/25 03/22/25 Rx extended release 12 hr (Mucus tabs Relief ER) ipratropium 0.5 mg-albuterol 3 mg 3 ml inhalation QID #180 mL 03/12/25 03/22/25 Rx (2.5 mg base)/3 mL nebulization soln tirzepatide 5 mg/0.5 mL 5 mg (0.5 mL) subcut WEEKLY #6 mL 03/13/25 03/22/25 Rx subcutaneous pen injector (Mounjaro) hydroxyzine HCl 25 mg tablet 25 mg PO QID PRN anxiety #14 tabs 03/21/25 03/22/25 Rx azithromycin 250 mg tablet 500 mg PO BID 03/22/25 03/22/25 History (Zithromax) loratadine 10 mg tablet 10 mg PO DAILY 03/22/25 03/22/25 History prednisone 20 mg tablet 20 mg PO DAILY@0800 03/22/25 03/22/25 History Allergies Allergy/AdvReac Type Severity Reaction Status Date / Time NILTON Inhibitors Allergy Unknown Angioedema Verified 03/22/25 17:09 lisinopril Allergy Dyspnea / Verified 03/22/25 17:09 SOB Vital Signs Vital Signs - 24 hr 03/22/25 13:17 03/22/25 13:22 03/22/25 14:30 Temperature 97.4 F L 97.8 F 97.9 F Pulse Rate 102 H 98 88 Respiratory Rate 20 17 18 Blood Pressure 113/102 H 113/102 H 111/66 Pulse Oximetry 95 95 94 Oxygen Delivery Room Air 03/22/25 14:49 03/22/25 14:51 03/22/25 15:15 Temperature Pulse Rate 90 90 Respiratory Rate 18 20 Blood Pressure Pulse Oximetry Oxygen Delivery Room Air 03/22/25 15:30 03/22/25 16:30 03/22/25 17:09 Temperature 97.8 F 97.9 F 99.0 F Pulse Rate 98 101 H 101 H Respiratory Rate 18 16 26 H Blood Pressure 125/58 L 127/65 136/56 L Pulse Oximetry 94 94 92 Oxygen Delivery Exam Narrative: General: Chronically ill HEENT: normocephalic, atraumatic. Mucous membranes moist. EOMI, PERRLA, bilateral sclera anicteric, no conjunctival injection. Neck supple without JVD, lymphadenopathy, or bruit. Respiratory: clear to ascultation bilaterally. No rales/rhonic/wheezes. Cardiovascular: Regular rate and rhythm, normal S1-S2 upon ascultation. No murmurs, rubs, or clicks. PMI is nondisplaced, capillary refill less than 3 second. Abdomen: Soft, round, no pulsatile masses, nondistended and nontender. No rebound, no guarding. No CVA tenderness, no hepatosplenomegaly. Bowel sounds present to all four quadrants. No high pitch or tinkling sounds, resonant to percussion. Extremities: No cyanosis, clubbing, or edema present. Pulses are palpable 2/2. Active ROM to all four extremities. Neuro: Alert and orientated x 4. PERRLA. Cranial nerves 2-12 intact without focal deficit. Skin: Warm, dry, and intact, without rash, erythema, or lesion. Psych: Tearful on exam H&P: Results Labs Labs: Short CBC 03/22/25 Range/Units 14:35 WBC 14.9 H (4.5-10.0) K/mm3 Hgb 13.7 (12.0-15.0) g/dL Hct 44.9 (37.0-47.0) % Plt Count 260 (150-375) k/mm3 BMP 03/22/25 14:35 Sodium 143 Potassium 3.8 Chloride 106 Carbon Dioxide 25 BUN 35 H D Creatinine 1.75 H Glucose 164 H Calcium 9.1 Cardiac Enzymes 03/22/25 Range/Units 14:35 Troponin I 0.085 H* (0.000-0.034) ng/mL Liver Function 03/22/25 Range/Units 14:35 Total Bilirubin 0.9 (0.2-1.3) mg/dL AST 48 H (14-36) U/L ALT 22 (6-35) U/L Alkaline Phosphatase 64 (38-126) U/L Albumin 4.3 (3.5-5.1) g/dL Assessment and Plan Assessment and plan (1) COPD exacerbation: Code(s): J44.1 - Chronic obstructive pulmonary disease with (acute) exacerbation Status: Acute Assessment and Plan: With Leukocytosis IV steroids x1 followed by p.o. daily Azithromycin and Rocephin Guaifenesin Loratadine Daily CBC (2) Anxiety: Code(s): F41.9 - Anxiety disorder, unspecified Status: Acute Assessment and Plan: Unable to do home med Atarax due to of erythromycin Ordered low-dose Xanax (3) HTN (hypertension): Qualifiers: Hypertension type: unspecified Qualified Code(s): I10 - Essential (primary) hypertension Code(s): I10 - Essential (primary) hypertension Status: Chronic Assessment and Plan: Continue home antihypertensives (4) Grade I diastolic dysfunction: Code(s): I51.89 - Other ill-defined heart diseases Status: Acute Assessment and Plan: Continue home Lasix (5) Hypothyroidism: Code(s): E03.9 - Hypothyroidism, unspecified Status: Acute Assessment and Plan: Continue home levothyroxine (6) Diabetes: Qualifiers: Diabetes mellitus complication status: without complication 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: without termite technician use Diabetes mellitus type: type 2 Qualified Code(s): E11.9 - Type 2 diabetes mellitus without complications Code(s): E11.9 - Type 2 diabetes mellitus without complications Status: Chronic Assessment and Plan: Hold home medications Accu-Dionicio a.cSamir HS SSI medium dose (7) Stage 3b chronic kidney disease: Code(s): N18.32 - Chronic kidney disease, stage 3b Status: Chronic Assessment and Plan: Daily BMP (8) NICOLA on CPAP: Code(s): G47.33 - Obstructive sleep apnea (adult) (pediatric); Z99.89 - Dependence on other enabling machines and devices Status: Acute Assessment and Plan: CPAP at night and with naps Quality VTE Prophylaxis VTE prophylaxis: mechanical ordered and pharmacologic ordered Hospitalist MIPS Advance Care Plan I have confirmed that the patient's Advanced Care Plan is present, code status is documented, or surrogate decision maker is listed in patient medical record.: Yes Medication Reconciliation I have utilized all available resources to obtain, update and review the patients current medications (includes all prescriptions, OTC, herbals, cannabis, and nutritional supplements).: Yes
[2025-03-22 19:33] LABS: Troponin I 0.079 ng/mL (0.000-0.034)
[2025-03-22 20:15] LABS: Glucose Point of Care 229 mg/dl (65-105)
[2025-03-22] MEDS: guaiFENesin 12 HR 600 MG TABCR 1200 MG PO (21:00)
[2025-03-22] MEDS: ROSUVASTATIN 10 MG TABLET PO (21:01)
[2025-03-22] MEDS: INSULIN ASPART (*BKC) 100 UNITS/ML SUB-Q (21:25)
[2025-03-22 21:55] LABS: Troponin I 0.065 ng/mL (0.000-0.034)
[2025-03-22] MEDS: ALPRAZolam (*CRX) 0.25 MG TABLET PO (22:39)
[2025-03-23] VITALS (24 sets, daily range): BP systolic 118–149; BP diastolic 48–77; PULSE 60–86; RESP 16–24; TEMP 36.4–37.1; O2SAT 91–98
[2025-03-23 04:04] LABS: Basophils Percent Auto 0.1 % (0.2-1.2); Hematocrit 41.7 % (37.0-47.0); Hemoglobin 12.5 g/dL (12.0-15.0); Immature Granulocyte Absolute 0.15 K/mm3 (0.00-0.031); Immature Granulocyte Percent A 1.1 % (0-0.5); Lymphocytes Absolute Auto 0.57 K/mm3 (0.9-3.2); Mean Corpuscular Hemoglobin 26.7 pg (26-34); Mean Corpuscular Volume 88.9 fl (80-100); Mean Platelet Volume 10.6 fl (7.4-10.4); Monocytes Absolute Auto 0.5 K/mm3 (0.1-0.6); Monocytes Percent Auto 3.6 % (2.6-8.5); Neutrophils Percent Auto 91.2 % (45.5-73.1); Platelet Count Result 246 k/mm3 (150-375); Red Blood Count 4.69 M/mm3 (4.2-5.4); Red Cell Distribution Width 15.7 % (11.5-14.5); White Blood Count 14.2 K/mm3 (4.5-10.0)
[2025-03-23 04:16] LABS: Anion Gap 9 mmol/L (4-12); Blood Urea Nitrogen 38 mg/dL (7-17); Calcium 8.6 mg/dL (8.4-10.2); Carbon Dioxide 27 mmol/L (22-30); Chloride 108 mmol/L (98-107); Estimated CRCL calculation 30 ml/min; Estimated Glomerular Filt Rate 30; Glucose 176 mg/dL (65-110); Potassium 3.8 mmol/L (3.4-5.0); Sodium 144 mmol/L (137-145)
[2025-03-23] MEDS: LEVOTHYROXINE SODIUM 75 MCG TABLET PO (06:42)
[2025-03-23 07:38] LABS: Glucose Point of Care 162 mg/dl (65-105)
[2025-03-23] MEDS: BUDESONIDE RESPULE NEB 0.5 MG/2 ML AMP INHALATION (08:21)
[2025-03-23] MEDS: LEVALBUTEROL NEB 1.25 MG/3 ML 0.63 MG INHALATION ×3 (08:21→22:30)
[2025-03-23] MEDS: HEPARIN SODIUM 5,000 UNITS/ML VIAL 5000 UNITS SUB-Q ×2 (09:04→22:11)
[2025-03-23] MEDS: LORATADINE 10 MG TABLET PO (09:06)
[2025-03-23] MEDS: FUROSEMIDE 20 MG TABLET PO (09:06)
[2025-03-23] MEDS: ALPRAZolam (*CRX) 0.25 MG TABLET PO ×3 (09:06→22:13)
[2025-03-23] MEDS: amLODIPine BESYLATE 5 MG TABLET PO (09:07)
[2025-03-23] MEDS: guaiFENesin 12 HR 600 MG TABCR 1200 MG PO ×2 (09:07→22:10)
[2025-03-23] MEDS: predniSONE 20 MG TABLET 40 MG PO (09:08)
[2025-03-23 11:10] LABS: Glucose Point of Care 166 mg/dl (65-105)
[2025-03-23] MEDS: AZITHROMYCIN 500 MG/NS 250 ML 500 MG/250 ML BAG 250 MG IVPB (15:45)
--- NOTE | 2025-03-23 15:50 | P.PNIM_ITS ---
Progress Note: A&P Assessment and Plan (1) COPD exacerbation: Code(s): J44.1 - Chronic obstructive pulmonary disease with (acute) exacerbation Status: Acute Assessment and Plan: With Leukocytosis PO Steroid and Bronchodilator on Abx Guaifenesin Loratadine Daily CBC (2) Anxiety: Code(s): F41.9 - Anxiety disorder, unspecified Status: Acute Assessment and Plan: Unable to do home med Atarax due to of erythromycin Ordered low-dose Xanax (3) HTN (hypertension): Qualifiers: Hypertension type: unspecified Qualified Code(s): I10 - Essential (primary) hypertension Code(s): I10 - Essential (primary) hypertension Status: Chronic Assessment and Plan: Continue home antihypertensives (4) Grade I diastolic dysfunction: Code(s): I51.89 - Other ill-defined heart diseases Status: Acute Assessment and Plan: Continue home Lasix (5) Hypothyroidism: Code(s): E03.9 - Hypothyroidism, unspecified Status: Acute Assessment and Plan: Continue home levothyroxine (6) Diabetes: Qualifiers: Diabetes mellitus type: type 2 Diabetes mellitus exterminator insulin use: without custodial use Diabetes mellitus complication status: without com plication Qualified Code(s): E11.9 - Type 2 diabetes mellitus without complications Code(s): E11.9 - Type 2 diabetes mellitus without complications Status: Chronic Assessment and Plan: Hold home medications Accu-Cheks a.c. HS SSI medium dose (7) Stage 3b chronic kidney disease: Code(s): N18.32 - Chronic kidney disease, stage 3b Status: Chronic Assessment and Plan: Daily BMP (8) NICOLA on CPAP: Code(s): G47.33 - Obstructive sleep apnea (adult) (pediatric); Z99.89 - Dependence on other enabling machines and devices Status: Acute Assessment and Plan: CPAP at night and with naps Plan Pneumonia CXR showed persisistent leftsided mid and lower lung infiltrates Blood culture Rocephin and Azithromycin monitor DVT prophylaxis on Sq Heparin Subjective Date/time seen: 03/23/25 15:50 Interval history: Comfortable at bedside Review of Systems Review of Systems: 12 systems were reviewed and are negativ e except for as per HPI. Exam Narrative: General: Chronically ill HEENT: normocephalic, atraumatic. Mucous membranes moist. EOMI, PERRLA, bilateral sclera anicteric, no conjunctival injection. Neck supple without JVD, lymphadenopathy, or bruit. Respiratory: clear to ascultation bilaterally. No rales/rhonic/wheezes. Cardiovascular: Regular rate and rhythm, normal S1-S2 upon ascultation. No murmurs, rubs, or clicks. PMI is nondisplaced, capillary refill less than 3 second. Abdomen: Soft, round, no pulsatile masses, nondistended and nontender. No rebound, no guarding. No CVA tenderness, no hepatosplenomegaly. Bowel sounds present to all four quadrants. No high pitch or tinkling sounds, resonant to percussion. Extremities: No cyanosis, clubbing, or edema present. Pulses are palpable 2/2. Active ROM to all four extremities. Neuro: Alert and orientated x 4. PERRLA. Cranial nerves 2-12 intact without focal deficit. Skin: Warm, dry, and intact, without rash, erythema, or lesion. Psych: Tearful on exam Objective Data Vital Signs Vital Signs: Vital Signs - 24 hr 03/22/25 16:30 03/22/25 17:09 03/22/25 17:55 Temperature 97.9 F 99.0 F Pulse Rate 101 H 101 H Respiratory Rate 16 26 H Blood Pressure 127/65 136/56 L Pulse Oximetry 94 92 Oxygen Delivery Room Air Oxygen Flow Rate Fraction of Inspired Oxygen 03/22/25 18:00 03/22/25 19:44 03/22/25 19:59 Temperature 99.2 F Pulse Rate 96 95 95 Respiratory Rate 22 H 20 Blood Pressure 120/49 L Pulse Oximetry 93 Oxygen Delivery Oxygen Flow Rate Fraction of Inspired Oxygen 03/22/25 20:00 03/22/25 20:08 03/22/25 20:09 Temperature Pulse Rate 95 99 95 Respiratory Rate 20 Blood Pressure Pulse Oximetry 21 L Oxygen Delivery Room Air Oxygen Flow Rate Fraction of Inspired Oxygen 21 03/22/25 20:50 03/22/25 21:40 03/22/25 22:00 Temperature Pulse Rate 95 96 90 Respiratory Rate 22 H 20 Blood Pressure Pulse Oximetry 93 94 Oxygen Delivery Room Air Room Air Oxygen Flow Rate Fraction of Inspired Oxygen 03/23/25 00:00 03/23/25 00:00 03/23/25 02:00 Temperature Pulse Rate 82 82 86 Respiratory Rate 20 Blood Pressure Pulse Oximetry 98 Oxygen Delivery Nasal Cannula Oxygen Flow Rate 2 Fraction of Inspired Oxygen 03/23/25 04:00 03/23/25 04:50 03/23/25 05:31 Temperature 98.8 F Pulse Rate 79 75 75 Respiratory Rate 20 20 Blood Pressure 118/48 L Pulse Oximetry 96 96 Oxygen Delivery Nasal Cannula Oxygen Flow Rate 2 Fraction of Inspired Oxygen 03/23/25 06:00 03/23/25 07:39 03/23/25 08:00 Temperature 98.1 F Pulse Rate 77 82 69 Respiratory Rate 24 H Blood Pressure 118/77 Pulse Oximetry 93 Oxygen Delivery Oxygen Flow Rate Fraction of Inspired Oxygen 03/23/25 08:43 03/23/25 08:45 03/23/25 10:00 Temperature Pulse Rate 76 76 74 Respiratory Rate 20 Blood Pressure Pulse Oximetry 94 Oxygen Delivery Nasal Cannula Oxygen Flow Rate 2 Fraction of Inspired Oxygen 28 03/23/25 11:44 03/23/25 12:00 03/23/25 12:00 Temperature 98.1 F Pulse Rate 70 67 Respiratory Rate 16 Blood Pressure 149/61 H Pulse Oximetry 92 Oxygen Delivery Room Air Oxygen Flow Rate Fraction of Inspired Oxygen 03/23/25 13:18 03/23/25 14:00 03/23/25 15:24 Temperature 97.7 F Pulse Rate 82 73 60 Respiratory Rate 20 22 H Blood Pressure 139/48 L Pulse Oximetry 91 Oxygen Delivery Oxygen Flow Rate Fraction of Inspired Oxygen Intake/Output Intake/Output: Intake & Output 03/20/25 03/21/25 03/22/25 03/23/25 23:59 23:59 23:59 23:59 Intake Total 590 540 Output Total 200 1500 Balance 390 -960 Meds/Results Medications: Active Medications Generic Name Dose Route Start Last Admin Trade Name Freq PRN Reason Stop Dose Admin Acetaminophen 650 mg 03/22/25 20:52 Acetaminophen 325 Mg Tablet PO Q4H PRN Mild Pain (1-3) or Fever Hydrocodone Bitart/Acetaminophen 1 tab 03/22/25 17:56 Hydrocodone/Acetaminophen (*Crx) 10-325 Mg Tablet PO Q6H PRN pain 4-6 Alprazolam 0.25 mg 03/22/25 21:37 03/23/25 14:20 Alprazolam (*Crx) 0.25 Mg Tablet PO 0.25 mg TID PRN Administration Anxiety Amlodipine Besylate 5 mg 03/23/25 09:00 03/23/25 09:07 Amlodipine Besylate 5 Mg Tablet PO 5 mg DAILY LATOYA Administration Budesonide 0.5 mg 03/23/25 08:00 03/23/25 08:21 Budesonide Respule Neb 0.5 Mg/2 Ml Amp INHALATION 0.5 mg DAILYRT LATOYA Administration Dextrose 12.5 gm 03/22/25 17:59 Dextrose 50% 25 Gm/50 Ml Syringe IV PUSH PRN PRN Hypoglycemia Protocol Furosemide 20 mg 03/23/25 09:00 03/23/25 09:06 Furosemide 20 Mg Tablet PO 20 mg DAILY LATOYA Administration Glucose 15 gm 03/22/25 17:59 Glucose Oral Gel 15 Gm Of Glucse In 37.5 Gm Tube PO PRN PRN Hypoglycemia Protocol Guaifenesin 1,200 mg 03/22/25 21:00 03/23/25 09:07 Guaifenesin 12 Hr 600 Mg Tabcr PO 1,200 mg Q12HR LATOYA Administration Heparin Sodium (Porcine) 5,000 units 03/23/25 09:00 03/23/25 09:04 Heparin Sodium 5,000 Units/Ml Vial SUB-Q 5,000 units Q12HR LATOYA Administration Azithromycin 500 mg in 250 mls @ 250 mls/hr 03/23/25 16:00 03/23/25 15:45 Zithromax IVPB 250 mls/hr Q24H LATOYA Administration Dextrose 1,000 mls @ 100 mls/hr 03/22/25 17:59 Dextrose 5% 1,000 Ml IVPB PRN PRN Hypoglycemia Protocol Insulin Aspart 3 - 6 units 03/23/25 08:00 03/23/25 11:25 Insulin Aspart (*Bkc) 100 Units/Ml SUB-Q Not Given TIDWM LATOYA Protocol Insulin Aspart 1 - 3 units 03/22/25 21:00 03/22/25 21:25 Insulin Aspart (*Bkc) 100 Units/Ml SUB-Q 1 units HS LATOYA Administration Protocol Levalbuterol HCl 0.63 mg 03/23/25 02:00 03/23/25 13:18 Levalbuterol Neb 1.25 Mg/3 Ml INHALATION 0.63 mg Q6HRT LATOYA Administration Levothyroxine Sodium 75 mcg 03/23/25 06:30 03/23/25 06:42 Levothyroxine Sodium 75 Mcg Tablet PO 75 mcg DAILY@0630 LATOYA Administration Loratadine 10 mg 03/23/25 09:00 03/23/25 09:06 Loratadine 10 Mg Tablet PO 10 mg DAILY LATOYA Administration Prednisone 40 mg 03/23/25 08:00 03/23/25 09:08 Prednisone 20 Mg Tablet PO 40 mg DAILY@0800 LATOYA Administration Rosuvastatin Calcium 10 mg 03/22/25 21:00 03/22/25 21:01 Rosuvastatin 10 Mg Tablet PO 10 mg HS LATOYA Administration Radiology Results: ITS Impressions Chest X-Ray 03/22/25 15:03 Impression: 1: Persistent interstitial infiltrates of the left mid and lower lung, suspicious for pneumonia versus asymmetric edema. Labs Labs: Laboratory Results - last 24 hr 03/22/25 03/22/25 03/22/25 19:03 19:40 21:23 WBC RBC Hgb Hct MCV MCH MCHC RDW Plt Count MPV Immature Gran % (Auto) Neut % (Auto) Lymph % (Auto) [place] % (Auto) Eos % (Auto) Baso % (Auto) Lymph # (Auto) [place] # (Auto) Eos # (Auto) Baso # (Auto) Abs Immat Gran (auto) Absolute Neuts (auto) Absolute Nucleated RBC Nucleated RBC % Sodium Potassium Chloride Carbon Dioxide Anion Gap BUN Creatinine Estim Creat Clear Calc Estimated GFR Glucose POC Capillary Glucose 229 H Calcium Troponin I 0.079 H* 0.065 H* 03/23/25 03/23/25 03/23/25 03:43 07:36 11:07 WBC 14.2 H RBC 4.69 Hgb 12.5 Hct 41.7 MCV 88.9 MCH 26.7 MCHC 30.0 L RDW 15.7 H Plt Count 246 MPV 10.6 H Immature Gran % (Auto) 1.1 H Neut % (Auto) 91.2 H Lymph % (Auto) 4.0 L [place] % (Auto) 3.6 Eos % (Auto) 0.0 Baso % (Auto) 0.1 L Lymph # (Auto) 0.57 L [place] # (Auto) 0.5 Eos # (Auto) 0.0 Baso # (Auto) 0.0 Abs Immat Gran (auto) 0.15 H Absolute Neuts (auto) 13.0 H Absolute Nucleated RBC 0.000 Nucleated RBC % 0.0 Sodium 144 Potassium 3.8 Chloride 108 H Carbon Dioxide 27 Anion Gap 9 BUN 38 H Creatinine 1.65 H Estim Creat Clear Calc 30 Estimated GFR 30 L Glucose 176 H POC Capillary Glucose 162 H 166 H Calcium 8.6 Troponin I Quality VTE Prophylaxis VTE prophylaxis: mechanical ordered and pharmacologic ordered
[2025-03-23 16:09] LABS: Glucose Point of Care 166 mg/dl (65-105)
[2025-03-23 19:48] LABS: Glucose Point of Care 145 mg/dl (65-105)
[2025-03-23] MEDS: SALINE LOCK FLUSH 10 ML IV PUSH (22:12)
[2025-03-23] MEDS: ROSUVASTATIN 10 MG TABLET PO (22:12)
[2025-03-24] VITALS (18 sets, daily range): BP systolic 141–146; BP diastolic 43–52; PULSE 58–81; RESP 16–28; TEMP 36.6–37.1; O2SAT 91–97
[2025-03-24] MEDS: LEVALBUTEROL NEB 1.25 MG/3 ML 0.63 MG INHALATION ×3 (01:41→13:23)
[2025-03-24] MEDS: SALINE LOCK FLUSH 20 ML IV PUSH (04:15)
[2025-03-24] MEDS: SALINE LOCK FLUSH 10 ML IV PUSH ×2 (04:15→14:32)
[2025-03-24 04:19] LABS: Basophils Percent Auto 0.2 % (0.2-1.2); Hematocrit 42.3 % (37.0-47.0); Hemoglobin 13.1 g/dL (12.0-15.0); Immature Granulocyte Absolute 0.15 K/mm3 (0.00-0.031); Immature Granulocyte Percent A 1.2 % (0-0.5); Lymphocytes Absolute Auto 0.81 K/mm3 (0.9-3.2); Lymphocytes Percent Auto 6.3 % (18.3-44.2); Mean Corpuscular Hemoglobin 27.2 pg (26-34); Mean Corpuscular Volume 87.9 fl (80-100); Mean Platelet Volume 10.7 fl (7.4-10.4); Monocytes Percent Auto 7.6 % (2.6-8.5); Neutrophils Absolute Auto 10.9 K/mm3 (1.3-6.7); Neutrophils Percent Auto 84.7 % (45.5-73.1); Platelet Count Result 220 k/mm3 (150-375); Red Blood Count 4.81 M/mm3 (4.2-5.4); Red Cell Distribution Width 15.5 % (11.5-14.5); White Blood Count 12.9 K/mm3 (4.5-10.0)
[2025-03-24 04:33] LABS: Alanine Aminotransferase 20 U/L (6-35); Albumin Level 3.7 g/dL (3.5-5.1); Alkaline Phosphatase 53 U/L (38-126); Anion Gap 7 mmol/L (4-12); Aspartate Amino Transferase 35 U/L (14-36); Bilirubin,Total 0.5 mg/dL (0.2-1.3); Blood Urea Nitrogen 39 mg/dL (7-17); Calcium 8.5 mg/dL (8.4-10.2); Carbon Dioxide 29 mmol/L (22-30); Chloride 107 mmol/L (98-107); Estimated CRCL calculation 30 ml/min; Estimated Glomerular Filt Rate 30; Glucose 137 mg/dL (65-110); Magnesium 2.8 mg/dL (1.6-2.3); Potassium 3.9 mmol/L (3.4-5.0); Sodium 143 mmol/L (137-145)
[2025-03-24] MEDS: LEVOTHYROXINE SODIUM 75 MCG TABLET PO (05:51)
[2025-03-24 08:11] LABS: Glucose Point of Care 124 mg/dl (65-105)
[2025-03-24] MEDS: LORATADINE 10 MG TABLET PO (09:02)
[2025-03-24] MEDS: FUROSEMIDE 20 MG TABLET PO (09:03)
[2025-03-24] MEDS: amLODIPine BESYLATE 5 MG TABLET PO (09:03)
[2025-03-24] MEDS: guaiFENesin 12 HR 600 MG TABCR 1200 MG PO (09:03)
[2025-03-24] MEDS: predniSONE 20 MG TABLET 40 MG PO (09:04)
[2025-03-24] MEDS: BUDESONIDE RESPULE NEB 0.5 MG/2 ML AMP INHALATION (09:15)
[2025-03-24] MEDS: ALPRAZolam (*CRX) 0.25 MG TABLET PO (10:51)
[2025-03-24 11:54] LABS: Glucose Point of Care 93 mg/dl (65-105)
--- NOTE | 2025-03-24 13:31 | P.PNIM_ITS ---
Progress Note: A&P Assessment and Plan (1) COPD exacerbation: Code(s): J44.1 - Chronic obstructive pulmonary disease with (acute) exacerbation Status: Acute Assessment and Plan: With Leukocytosis PO Steroid and Bronchodilator on Abx Guaifenesin Loratadine Daily CBC (2) Anxiety: Code(s): F41.9 - Anxiety disorder, unspecified Status: Acute Assessment and Plan: Unable to do home med Atarax due to of erythromycin Ordered low-dose Xanax (3) HTN (hypertension): Qualifiers: Hypertension type: unspecified Qualified Code(s): I10 - Essential (primary) hypertension Code(s): I10 - Essential (primary) hypertension Status: Chronic Assessment and Plan: Continue home antihypertensives (4) Grade I diastolic dysfunction: Code(s): I51.89 - Other ill-defined heart diseases Status: Acute Assessment and Plan: Continue home Lasix (5) Hypothyroidism: Code(s): E03.9 - Hypothyroidism, unspecified Status: Acute Assessment and Plan: Continue home levothyroxine (6) Diabetes: Qualifiers: Diabetes mellitus type: type 2 Diabetes mellitus ad terminal makeup operator insulin use: without halfway use Diabetes mellitus complication status: without com plication Qualified Code(s): E11.9 - Type 2 diabetes mellitus without complications Code(s): E11.9 - Type 2 diabetes mellitus without complications Status: Chronic Assessment and Plan: Hold home medications Accu-Cheks a.c. HS SSI medium dose (7) Stage 3b chronic kidney disease: Code(s): N18.32 - Chronic kidney disease, stage 3b Status: Chronic Assessment and Plan: Daily BMP (8) NICOLA on CPAP: Code(s): G47.33 - Obstructive sleep apnea (adult) (pediatric); Z99.89 - Dependence on other enabling machines and devices Status: Acute Assessment and Plan: CPAP at night and with naps Plan Pneumonia CXR showed persisistent leftsided mid and lower lung infiltrates Blood culture Levaquin monitor DVT prophylaxis on Sq Heparin Awaiting PT/OT for discharge disposition Subjective Date/time seen: 03/24/25 13:31 Interval history: Comfortable at bedside Review of Systems Review of Systems: 12 systems were reviewed and are negativ e except for as per HPI. Exam Narrative: General: Chronically ill HEENT: normocephalic, atraumatic. Mucous membranes moist. EOMI, PERRLA, bilateral sclera anicteric, no conjunctival injection. Neck supple without JVD, lymphadenopathy, or bruit. Respiratory: clear to ascultation bilaterally. No rales/rhonic/wheezes. Cardiovascular: Regular rate and rhythm, normal S1-S2 upon ascultation. No murmurs, rubs, or clicks. PMI is nondisplaced, capillary refill less than 3 second. Abdomen: Soft, round, no pulsatile masses, nondistended and nontender. No rebound, no guarding. No CVA tenderness, no hepatosplenomegaly. Bowel sounds present to all four quadrants. No high pitch or tinkling sounds, resonant to percussion. Extremities: No cyanosis, clubbing, or edema present. Pulses are palpable 2/2. Active ROM to all four extremities. Neuro: Alert and orientated x 4. PERRLA. Cranial nerves 2-12 intact without focal deficit. Skin: Warm, dry, and intact, without rash, erythema, or lesion. Psych: Tearful on exam Objective Data Vital Signs Vital Signs: Vital Signs - 24 hr 03/23/25 14:00 03/23/25 15:24 03/23/25 16:00 Temperature 97.7 F Pulse Rate 73 60 Respiratory Rate 22 H Blood Pressure 139/48 L Pulse Oximetry 91 Oxygen Delivery Room Air Oxygen Flow Rate Fraction of Inspired Oxygen 03/23/25 16:00 03/23/25 18:00 03/23/25 20:00 Temperature 97.7 F Pulse Rate 69 75 60 Respiratory Rate 21 H Blood Pressure 139/48 L Pulse Oximetry 91 Oxygen Delivery Oxygen Flow Rate Fraction of Inspired Oxygen 03/23/25 20:00 03/23/25 21:50 03/23/25 22:00 Temperature Pulse Rate 70 60 79 Respiratory Rate 21 H Blood Pressure Pulse Oximetry 91 Oxygen Delivery Room Air Oxygen Flow Rate Fraction of Inspired Oxygen 03/23/25 22:32 03/23/25 22:33 03/23/25 23:42 Temperature 97.5 F L Pulse Rate 67 77 75 Respiratory Rate 20 20 18 Blood Pressure 134/57 L Pulse Oximetry 98 92 Oxygen Delivery Nasal Cannula Oxygen Flow Rate 2 Fraction of Inspired Oxygen 28 03/24/25 00:00 03/24/25 00:55 03/24/25 01:42 Temperature Pulse Rate 81 75 65 Respiratory Rate 18 20 Blood Pressure Pulse Oximetry 92 Oxygen Delivery Nasal Cannula Oxygen Flow Rate 2 Fraction of Inspired Oxygen 03/24/25 01:53 03/24/25 02:00 03/24/25 03:34 Temperature 97.8 F Pulse Rate 70 72 64 Respiratory Rate 18 Blood Pressure 141/52 H Pulse Oximetry 95 Oxygen Delivery Oxygen Flow Rate Fraction of Inspired Oxygen 03/24/25 03:57 03/24/25 04:00 03/24/25 06:00 Temperature Pulse Rate 64 69 58 L Respiratory Rate 18 Blood Pressure Pulse Oximetry 95 Oxygen Delivery Nasal Cannula Oxygen Flow Rate 2 Fraction of Inspired Oxygen 03/24/25 08:00 03/24/25 08:00 03/24/25 08:00 Temperature 98.1 F Pulse Rate 65 68 Respiratory Rate 28 H Blood Pressure 146/44 H Pulse Oximetry 97 97 Oxygen Delivery Room Air Oxygen Flow Rate Fraction of Inspired Oxygen 03/24/25 09:15 03/24/25 09:15 03/24/25 09:25 Temperature Pulse Rate 65 68 Respiratory Rate 16 16 Blood Pressure Pulse Oximetry 91 Oxygen Delivery Room Air Oxygen Flow Rate Fraction of Inspired Oxygen 21 03/24/25 10:00 03/24/25 12:00 03/24/25 13:23 Temperature 98.5 F Pulse Rate 61 62 Respiratory Rate 20 Blood Pressure 144/43 H Pulse Oximetry 91 93 Oxygen Delivery Room Air Oxygen Flow Rate Fraction of Inspired Oxygen 21 03/24/25 13:23 03/24/25 13:28 Temperature Pulse Rate 65 68 Respiratory Rate 16 16 Blood Pressure Pulse Oximetry Oxygen Delivery Oxygen Flow Rate Fraction of Inspired Oxygen Intake/Output Intake/Output: Intake & Output 03/21/25 03/22/25 03/23/25 03/24/25 23:59 23:59 23:59 23:59 Intake Total 590 1580 120 Output Total 200 2300 Balance 390 -720 120 Meds/Results Medications: Active Medications Generic Name Dose Route Start Last Admin Trade Name Freq PRN Reason Stop Dose Admin Acetaminophen 650 mg 03/22/25 20:52 Acetaminophen 325 Mg Tablet PO Q4H PRN Mild Pain (1-3) or Fever Hydrocodone Bitart/Acetaminophen 1 tab 03/22/25 17:56 Hydrocodone/Acetaminophen (*Crx) 10-325 Mg Tablet PO Q6H PRN pain 4-6 Alprazolam 0.25 mg 03/22/25 21:37 03/24/25 10:51 Alprazolam (*Crx) 0.25 Mg Tablet PO 0.25 mg TID PRN Administration Anxiety Amlodipine Besylate 5 mg 03/23/25 09:00 03/24/25 09:03 Amlodipine Besylate 5 Mg Tablet PO 5 mg DAILY LATOYA Administration Budesonide 0.5 mg 03/23/25 08:00 03/24/25 09:15 Budesonide Respule Neb 0.5 Mg/2 Ml Amp INHALATION 0.5 mg DAILYRT LATOYA Administration Dextrose 12.5 gm 03/22/25 17:59 Dextrose 50% 25 Gm/50 Ml Syringe IV PUSH PRN PRN Hypoglycemia Protocol Furosemide 20 mg 03/23/25 09:00 03/24/25 09:03 Furosemide 20 Mg Tablet PO 20 mg DAILY LATOYA Administration Glucose 15 gm 03/22/25 17:59 Glucose Oral Gel 15 Gm Of Glucse In 37.5 Gm Tube PO PRN PRN Hypoglycemia Protocol Guaifenesin 1,200 mg 03/22/25 21:00 03/24/25 09:03 Guaifenesin 12 Hr 600 Mg Tabcr PO 1,200 mg Q12HR LATOYA Administration Heparin Sodium (Porcine) 5,000 units 03/23/25 09:00 03/24/25 09:03 Heparin Sodium 5,000 Units/Ml Vial SUB-Q Not Given Q12HR LATOYA Azithromycin 500 mg in 250 mls @ 250 mls/hr 03/23/25 16:00 03/23/25 16:53 Zithromax IVPB Infused Q24H LATOYA Infusion Dextrose 1,000 mls @ 100 mls/hr 03/22/25 17:59 Dextrose 5% 1,000 Ml IVPB PRN PRN Hypoglycemia Protocol Insulin Aspart 3 - 6 units 03/23/25 08:00 03/24/25 12:27 Insulin Aspart (*Bkc) 100 Units/Ml SUB-Q Not Given TIDWM LATOYA Protocol Insulin Aspart 1 - 3 units 03/22/25 21:00 03/23/25 22:10 Insulin Aspart (*Bkc) 100 Units/Ml SUB-Q Not Given HS [facility] Protocol Levalbuterol HCl 0.63 mg 03/23/25 02:00 03/24/25 13:23 Levalbuterol Neb 1.25 Mg/3 Ml INHALATION 0.63 mg Q6HRT LATOYA Administration Levothyroxine Sodium 75 mcg 03/23/25 06:30 03/24/25 05:51 Levothyroxine Sodium 75 Mcg Tablet PO 75 mcg DAILY@0630 LATOYA Administration Loratadine 10 mg 03/23/25 09:00 03/24/25 09:02 Loratadine 10 Mg Tablet PO 10 mg DAILY LATOYA Administration Prednisone 40 mg 03/23/25 08:00 03/24/25 09:04 Prednisone 20 Mg Tablet PO 40 mg DAILY@0800 LATOYA Administration Rosuvastatin Calcium 10 mg 03/22/25 21:00 03/23/25 22:12 Rosuvastatin 10 Mg Tablet PO 10 mg HS LATOYA Administration Sodium Chloride 10 ml 03/23/25 22:00 03/24/25 04:15 Saline Lock Flush IV PUSH 10 ml Q8HR LATOYA Administration Sodium Chloride 10 ml 03/23/25 19:17 Saline Lock Flush IV PUSH PRN PRN Flush Sodium Chloride 20 ml 03/23/25 19:17 03/24/25 04:15 Saline Lock Flush IV PUSH 20 ml PRN PRN Administration after blood draws Radiology Results: ITS Impressions Chest X-Ray 03/22/25 15:03 Impression: 1: Persistent interstitial infiltrates of the left mid and lower lung, suspicious for pneumonia versus asymmetric edema. Labs Labs: Laboratory Results - last 24 hr 03/23/25 03/23/25 03/24/25 16:04 19:45 04:11 WBC 12.9 H RBC 4.81 Hgb 13.1 Hct 42.3 MCV 87.9 MCH 27.2 MCHC 31.0 L RDW 15.5 H Plt Count 220 MPV 10.7 H Immature Gran % (Auto) 1.2 H Neut % (Auto) 84.7 H Lymph % (Auto) 6.3 L [place] % (Auto) 7.6 Eos % (Auto) 0.0 Baso % (Auto) 0.2 Lymph # (Auto) 0.81 L [place] # (Auto) 1.0 H Eos # (Auto) 0.0 Baso # (Auto) 0.0 Abs Immat Gran (auto) 0.15 H Absolute Neuts (auto) 10.9 H Absolute Nucleated RBC 0.000 Nucleated RBC % 0.0 Sodium 143 Potassium 3.9 Chloride 107 Carbon Dioxide 29 Anion Gap 7 BUN 39 H Creatinine 1.66 H Estim Creat Clear Calc 30 Estimated GFR 30 L Glucose 137 H POC Capillary Glucose 166 H 145 H Calcium 8.5 Magnesium 2.8 H Total Bilirubin 0.5 AST 35 ALT 20 Alkaline Phosphatase 53 Total Protein 7.0 Albumin 3.7 03/24/25 03/24/25 07:53 11:27 WBC RBC Hgb Hct MCV MCH MCHC RDW Plt Count MPV Immature Gran % (Auto) Neut % (Auto) Lymph % (Auto) [place] % (Auto) Eos % (Auto) Baso % (Auto) Lymph # (Auto) [place] # (Auto) Eos # (Auto) Baso # (Auto) Abs Immat Gran (auto) Absolute Neuts (auto) Absolute Nucleated RBC Nucleated RBC % Sodium Potassium Chloride Carbon Dioxide Anion Gap BUN Creatinine Estim Creat Clear Calc Estimated GFR Glucose POC Capillary Glucose 124 H 93 Calcium Magnesium Total Bilirubin AST ALT Alkaline Phosphatase Total Protein Albumin Quality VTE Prophylaxis VTE prophylaxis: mechanical ordered and pharmacologic ordered
--- NOTE | 2025-03-24 15:41 | P.DS_ITS ---
DS: Admitting Diagnosis Discharge Date 03/24/25 Admitting Diagnosis Shortness of breath DS: Summary Hospital Course Hospital Course: 79-year-old female COPD, hypertension, thyroid cancer, anemia and stage 3 kidney disease presents the hospital with shortness of breath. Patient has had several admissions lately for COPD exacerbation. She states that she gets a little better and goes home in and a couple days she is back in hospital. Patient is unable to do most activities of daily living due to shortness of breath. Patient is extremely anxious and tearful on exam. Patient denies chest pain, nausea or vomiting, fever or chills. . The ED her lab work shows leukocytosis of 14.9, creatinine 1.75 with baseline being around 1.5, troponin 0.0508, BNP of 1760. Chest x-ray shows Persistent interstitial infiltrates of the left mid and lower lung, suspicious for pneumonia versus asymmetric edema. Patient was managed for Pneumonia, completed 3 days of antibiotics and disc harged on 5 more days of Levaquin adjusted for renal dosing. Continue home medications F/u with PCP in 3 to 5 days. Time Spent with Patient Time attestation: Total time spent providing and/or coordinating discharge services: DS: Data Data Completed and Pending Labs on day of discharge: Labs from last 24 hours 03/24/25 03/24/25 03/24/25 11:27 07:53 04:11 WBC 12.9 H RBC 4.81 Hgb 13.1 Hct 42.3 MCV 87.9 MCH 27.2 MCHC 31.0 L RDW 15.5 H Plt Count 220 MPV 10.7 H Immature Gran % (Auto) 1.2 H Neut % (Auto) 84.7 H Lymph % (Auto) 6.3 L [place] % (Auto) 7.6 Eos % (Auto) 0.0 Baso % (Auto) 0.2 Lymph # (Auto) 0.81 L [place] # (Auto) 1.0 H Eos # (Auto) 0.0 Baso # (Auto) 0.0 Abs Immat Gran (auto) 0.15 H Absolute Neuts (auto) 10.9 H Absolute Nucleated RBC 0.000 Nucleated RBC % 0.0 Sodium 143 Potassium 3.9 Chloride 107 Carbon Dioxide 29 Anion Gap 7 BUN 39 H Creatinine 1.66 H Estim Creat Clear Calc 30 Estimated GFR 30 L Glucose 137 H POC Capillary Glucose 93 124 H Calcium 8.5 Magnesium 2.8 H Total Bilirubin 0.5 AST 35 ALT 20 Alkaline Phosphatase 53 Total Protein 7.0 Albumin 3.7 03/23/25 03/23/25 19:45 16:04 WBC RBC Hgb Hct MCV MCH MCHC RDW Plt Count MPV Immature Gran % (Auto) Neut % (Auto) Lymph % (Auto) [place] % (Auto) Eos % (Auto) Baso % (Auto) Lymph # (Auto) [place] # (Auto) Eos # (Auto) Baso # (Auto) Abs Immat Gran (auto) Absolute Neuts (auto) Absolute Nucleated RBC Nucleated RBC % Sodium Potassium Chloride Carbon Dioxide Anion Gap BUN Creatinine Estim Creat Clear Calc Estimated GFR Glucose POC Capillary Glucose 145 H 166 H Calcium Magnesium Total Bilirubin AST ALT Alkaline Phosphatase Total Protein Albumin Discharge Plan Discharge Attending physician on discharge: Von Montejo Discharging Clinician: Von Montejo Anticipated Discharge Date/Time: 03/24/25 15:18 Patient Disposition: Home Activity: as tolerated Diet: as tolerated, heart healthy and diabetic Patient Instructions: Antibiotic Form, Heart Failure (DC) Patient Language: Grenadian Stand Alone Forms: General Discharge Information Follow-up/Referrals: Roberto Carlos Ramsey MD [Primary Care Provider] - (F/u with PCP in 3-5 days ) Discharge Medications: New levofloxacin 750 mg tablet 750 mg PO Q48H 5 Days Qty: 3 0RF Continued rosuvastatin 10 mg tablet 10 mg PO HS magnesium oxide 400 mg magnesium tablet 400 mg PO BID Trintellix 20 mg tablet 20 mg PO DAILY budesonide 0.5 mg/2 mL suspension for nebulization 0.5 mg inhalation DAILY Qty: 60 3RF furosemide 20 mg tablet 20 mg PO DAILY minoxidil 2.5 mg tablet 2.5 mg PO DAILY prednisone 20 mg Tablet 20 mg PO DAILY@0800 loratadine 10 mg Tablet 10 mg PO DAILY oxybutynin chloride 10 mg Tablet Extended Release 24hr 10 mg PO HS amlodipine 5 mg Tablet 5 mg PO DAILY albuterol sulfate 90 mcg/actuation HFA aerosol inhaler 2 puff inhalation QID PRN (Reason: shortness of breath or wheezing) Qty: 8.5 0RF hydrocodone-acetaminophen 10-325 mg tablet 1 tablet PO Q6H PRN (Reason: pain) levothyroxine [Unithroid] 75 mcg tablet 75 mcg PO 0100 guaifenesin [Mucus Relief ER] 600 mg Tablet Extended Release 12hr 1,200 mg PO Q12HR Qty: 30 0RF hydroxyzine HCl 25 mg tablet 25 mg PO QID PRN (Reason: anxiety) Qty: 14 0RF albuterol sulfate 2.5 mg /3 mL (0.083 %) solution for nebulization 2.5 mg inhalation Q4-6H PRN (Reason: shortness of breath or wheezing) Qty: 18 0 2RF dapagliflozin propanediol [Farxiga] 10 mg tablet 10 mg PO DAILY Qty: 30 12RF ipratropium-albuterol 0.5 mg-3 mg(2.5 mg base)/3 mL solution for nebulization 3 ml inhalation QID Qty: 180 6RF Mounjaro 5 mg/0.5 mL pen injector 5 mg subcut WEEKLY Qty: 6 0RF Discontinued azithromycin [Zithromax] 250 mg Tablet 500 mg PO BID Date of admission: 03/23/25 09:42 Primary Care Provider: Roberto Carlos Ramsey Admitting Provider: Delaney Gautam Attending physician on admission: Delaney Gautam Condition: Improved
== END 2025-03-24 16:59 | disposition home or self-care (01) | DRG 194 ==
LOC: ANHED 15:36 → ANHIMU 16:34
PROVIDERS: Nurse Practitioner Gerontology; Admitting Provider Internal Medicine; Emergency Provider Emergency Medicine; PCP Internal Medicine Cardiovascular Disease; Visit Provider Internal Medicine
DX: J18.9 Pneumonia, unspecified organism (principal); J44.0 Chronic obstructive pulmonary disease with (acute) lower respiratory infection; J44.1 Chronic obstructive pulmonary disease with (acute) exacerbation; I12.9 Hypertensive chronic kidney disease with stage 1 through stage 4 chronic kidney disease, or unspecified chronic kidney disease; E11.22 Type 2 diabetes mellitus with diabetic chronic kidney disease; N18.32 Chronic kidney disease, stage 3b; D64.9 Anemia, unspecified; I35.0 Nonrheumatic aortic (valve) stenosis; G47.33 Obstructive sleep apnea (adult) (pediatric); K21.9 Gastro-esophageal reflux disease without esophagitis; E78.5 Hyperlipidemia, unspecified; E89.0 Postprocedural hypothyroidism; K44.9 Diaphragmatic hernia without obstruction or gangrene; F41.9 Anxiety disorder, unspecified; I51.89 Other ill-defined heart diseases; Z90.49 Acquired absence of other specified parts of digestive tract; Z90.710 Acquired absence of both cervix and uterus; Z95.0 Presence of cardiac pacemaker; Z87.891 Personal history of nicotine dependence; Z85.850 Personal history of malignant neoplasm of thyroid
CPT/HCPCS: 36415; 36569; 71045; 71250; 80048; 80053; 82948; 83735; 83880; 84484; 85025; 85610; 85652; 85730; 86140; 87040; 93005; 94640; 96365; 96366; 96368; 96372; 96374; 96375; 99284; 99285; A9270; C1751; G0378; J0456; J0696; J1644; J1815; J2060; J2919; J7512

== ENCOUNTER 2025-05-08 13:02 | Outpatient (CLI) | payer MEDICARE, MEDICAID, SELFPAY ==
[2025-05-08 12:29] VITALS: PULSE 80; O2SAT 92
[2025-05-08 13:00] VITALS: PULSE 90; O2SAT 86
[2025-05-08 13:05] VITALS: PULSE 94; O2SAT 88
[2025-05-08 13:10] VITALS: PULSE 100; O2SAT 90
--- OUTSIDE RECORDS SUMMARY | 2025-05-08 13:11 | XMS_ITS | Clinical Summary ---
Author Organization [facility] Address [address] [place] [address] Care Team Providers Care Shipping And Receiving Supervisor Name Role Phone Waqas De Leon MD Unavailable [phone] Waqas De Leon MD Unavailable [phone] Cortney Corona MD Unavailable [phone] Jn Velásquez MD Primary Care Provider [phone] Miscellaneous, Not In File Unavailable Unava ilDaniel Mckeon MD Unavailable [phone] James Cifuentes MD Unavailable Allergies Active Allergy Reactions Criticality Noted Date Comments Adhesive Itching,Rash Medium 09/07/2022 Lisinopril Shortness of breath,Unknown High 12/24/19 22 Medications albuterol HFA (PROVENTIL HFA,VENTOLIN HFA,PROAIR HFA) 90 mcg/actuation inhaler Inhale 1-2 puffs every 6 (six) hours as needed for shortness of breath 1 each 11/20/19 22 Active acetaminophen (TYLENOL) 325 mg tablet Take 1 tablet (325 mg total) by mouth every 4 (four) hours as needed for pain 05/26/20 22 Active amLODIPine (NORVASC) 5 mg tabletIndication s:Primary hypertension Take 1 tablet (5 mg total) by mouth daily 30 tablet 05/26/20 22 Active melatonin 5 mg tabletIndication s:Primary insomnia Take 1 tablet (5 mg total) by mouth nightly as needed (insomnia) 0 05/26/20 22 Active Unithroid 75 mcg tablet Take 1 tablet (75 mcg total) by mouth every morning 10/26/20 22 Active ergocalciferol (VITAMIN D) 50,000 unit capsule Take 1 capsule (50,000 Units total) by mouth 11/02/20 22 Active oxybutynin XL (DITROPAN-XL) 10 mg 24 hr tablet Take 1 tablet (10 mg total) by mouth daily 11/02/20 22 Active rosuvastatin (CRESTOR) 10 mg tablet Take [...] mg total) by mouth daily 30 tablet 06/01/20 23 Active umeclidinium-nia anteroL (ANORO ELLIPTA) 62.5-25 mcg/actuation blister with deviceIndication s:Bronchospasm Prevention with COPD Inhale 1 puff daily 30 each 05/31/20 23 Active furosemide (LASIX) 20 mg tablet Take 1 tablet (20 mg total) by mouth daily 30 tablet 05/31/20 23 Active azelastine (OPTIVAR) 0.05 % ophthalmic solution 1 drop 2 (two) times a day 10/13/20 23 Active neomycin-polymyx in-dexAMETHasone (MAXITROL) 3.5mg/mL-10,000 unit/mL-0.1 % ophthalmic suspension SHAKE LIQUID AND INSTILL 1 DROP IN BOTH EYES TWICE DAILY 10/14/20 23 Active pregabalin (LYRICA) 200 mg capsule Take 1 capsule (200 mg total) by mouth 2 (two) times a day 08/29/20 23 Active Trintellix 20 mg tablet Take 1 tablet (20 mg total) by mouth daily 10/12/20 23 Active fluticasone furoate-vilanter oL (Breo Ellipta) 100-25 mcg/dose diskus inhaler Inhalation 03/19/20 24 Active magnesium oxide (MAG-OX) 400 mg (241.3 mg elemental magnesium) tablet Oral 03/19/20 24 Active Breztri Aerosphere 160-9-4.8 mcg/actuation inhaler Inhalation 03/19/20 24 Active HYDROcodone-acet aminophen (NORCO) 10-325 mg per tablet Take 1 tablet by mouth 4 (four) times a day 07/12/20 24 Active Mounjaro 15 mg/0.5 mL pen injector ADMINISTER 15 MG UNDER THE SKIN WEEKLY 06/01/20 24 Active tirzepatide (Mounjaro) 12.5 mg/0.5 mL pen injector MOUNJARO 12.5 MG/0.5 ML SUBCUTANEOUS PEN INJECTOR 03/19/20 24 Active hydrOXYzine (ATARAX) 50 mg tablet TAKE 1-2 TABLETS BY MOUTH THREE TIMES DAILY NEEDED FOR ITCHING 10/09/20 24 Active loteprednol (LOTEMAX) 0.5 % ophthalmic suspension 09/03/20 24 Active Farxiga 10 mg tablet Take 1 tablet (10 mg total) by mouth daily 10/07/[address] (CYMBALTA) 20 mg capsule Take 1 capsule (20 mg total) by mouth daily 30 capsule 2 04/10/20 25 026 Active traZODone (DESYREL) 100 mg tabletIndication s:Primary insomnia Take 1 tablet (100 mg total) by mouth nightly as needed for sleep 30 tablet 05/26/20 22 025 Discontin ued(Thera py completed ) gabapentin (NEURONTIN) 300 mg capsule Take 1 capsule (300 mg total) by mouth 3 (three) times a day 10/04/20 22 025 Discontin ued(Thera py completed ) methylPREDNISolo ne (MEDROL DOSEPACK) 4 mg Dosepack Take as directed on package 1 packet 01/19/20 25 025 Discontin ued(Thera py completed ) Active Problems Problem Noted Date Diagnosed Date [...] AM CDT): 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 Fitch at [facility] on 06/28 [...] on room air- transition to torsemide per vice president financial, add low dose potassium supplement. Continue to [...] Encounters Date Type Department Care Team Description 04/10/2025 2:30 PM CDT Office Visit [facility] Rheumatology [address] 5th [place] [address] [place] [address] Bilateral shoulder pain, unspecified chronicity (Primary Dx) 03/22/2025 12:29 AM CDT - 03/22/2025 1:05 AM CDT Emergency [facility] Emergency Department [address] [place] [id number] Discharge Disposition: Left without being seen from Last 3 Months Surgical History Surgery [...] often do you attend chur ch or buddhist services? Never 05/31/2023 Do you belong to [...] money to buy more. Never true 05/31/20 Within the past 12 months, t he [...] place to sleep or slept in a [facility] (including now)? No 05/31/2023 Personal Safety Answer Date Recorded Have you ever been in or are you currently in a harmful physical or emotional relationship or is someone making you feel afraid or unsafe? Denies 03/21/2025 Comments No Sex and Gender Information Value Date Recorded Sex Assigned at Not on file Legal Sex Female 7:23 PM CLERICAL AIDE TEACHER Gender Identity Not on file Sexual [...] 10:43 PM CDT Height 156.2 cm (5' 1.5) 10/10/2024 1:09 PM CLERICAL AIDE TEACHER Body Mass Index 44.61 10/10/2024 1:09 PM CLERICAL AIDE TEACHER Plan of Treatment Health Maintenance Due Date Last Done Comments Depression Screening 1945 Osteoporosis Screening-Bone Density Scan 1945 Hepatitis B Screening 1965 Lung Cancer Screening 1997 Zoster Vaccine (1 of 2) 1997 Well Visit 65+ 2012 Pneumococcal vaccine 65+ (2 of 2 - PPSV23) 01/21/2016 11/26/2015, 11/07/2009 Fall Risk Assessment 06/01/2024 06/01/2023 Covid-19 Vaccine (3 - season) 2024, 01/23/2021 Influenza Vaccine (#1) 2025 08/07/2021, 2019 DTaP/Tdap/Td Vaccine (2 - Td or Tdap) 02/04/2031 Breast Cancer Screening-Mammogram Discontinued 014 Hepatitis C Screening Completed 08/10/2024 Procedures Procedure Name Priority Date/Time Associated Diagnosis Comments XR CHEST 1 VIEW ED 03/21/2025 11:09 PM CDT ECG 12-LEAD STAT 03/21/2025 10:51 PM CDT EGFR STAT 03/21/2025 10:49 PM [...] for several months. Seen and discharged at [facility] TECHNIQUE: Single radiographic view of the chest. [...] Dorie Kenney M.D. SN: SN Report ID: [id number] Reading Location: [id number] Procedure Note Dorie Kenney MD - 03/21/2025 EXAM DESCRIPTION: XR CHEST 1 VIEW REASON FOR STUDY: chest pain Patient with SOB for several months. Seen and discharged at [facility] TECHNIQUE: Single radiographic view of the chest. [...] Dorie Kenney M.D. SN: SN Report ID: [id number] Reading Location: [id number] Misti Tobar NP IMG XR PROCEDURES Final Result * ECG 12 lead (03/21/2025 10:51 PM CDT) Ventricular Rate EKG/Min 101 BPM [facility] Atrial Rate 101 BPM [facility] NH-Interval (MSEC) 198 ms [facility] QRS-Interval (MSEC) 114 ms [facility] QT-Interval (MSEC) 378 ms [facility] QTc 490 ms [facility] P [place] 52 degrees [facility] R [place] -43 degrees [facility] T [place] 91 degrees [facility] Diagnosis Sinus tachycardia Left axis deviation Left ventricular hypertrophy with repolarization abnormality Cannot rule out Septal infarct , age undetermined Possible Lateral infarct , age undetermined Abnormal ECG No previous ECGs available Confirmed by GIOVANNI GAMING M.D. ([id number]) on 03/22/2025 5:48:14 PM [facility] 03/21/2025 10:5 1 PM CDT 03/22/2025 5:48 PM CDT Misti Tobar NP ECG ORDERABLES Final Result Performing Organization Address City/[facility] Co de Phone Number [facility] * (ABNORMAL) Troponin T high-sensitivity series (baseline, 2hr, 4hr, 6hr) (03/21/2025 10:49 PM CDT) Pathologist [facility] Trop T hs 27(H) <=14 ng/L Comment: Interpretive Data For further hscTnT resources including the diagnostic algorithm and an aid in interpretation, copy and paste this link: https://nrl.testcatalog.org/show/hsTrop Current Interpretive Data last revised 2020. Testing performed by: [facility], [address] [place] [address]., [address] Blood 03/21/2025 10:4 9 PM CDT 03/21/2025 10:57 PM CDT Misti Tobar NP LAB BLOOD ORDERABLES Final Resul t [facility] [id number] [facility] Department [place] [address] * (ABNORMAL) eGFR (03/21/2025 10:49 PM CDT) [...] was last reviewed 2021. Testing performed by: [address] [address] Blood 03/21/2025 10:4 9 PM CDT 03/21/2025 10:57 PM CDT Misti Tobar NP LAB BLOOD ORDERABLES Final Resul t Performing Organization Address City/State/[facility] Co de Phone Number [place] [id number] [facility] Department [place] [address] * (ABNORMAL) Differential, auto (03/21/2025 10:49 PM CDT) Neutrophil abs 10.23(H) 1.50 - 6.50 K/cumm Comment:Testing performed by : [address] [address] Imm gran abs 0.13(H) 0.00 - 0.10 K/cumm [place] Comment:Testing performed by : [address] [address] Lymphocyte abs 0.65(L) 0.80 - 3.30 K/cumm [place] Comment:Testing performed by : [address] [address] Monocyte abs 0.07(L) 0.20 - 0.80 K/cumm [place] Comment:Testing performed by : [address], [place]., [address] Eosinophil abs 0.00 0.00 - 0.50 K/cumm [facility] Comment:Testing performed by : [address], [place]., [address] Basophil abs 0.03 0.00 - 0.10 K/cumm [facility] Comment:Testing performed by : [address] [address] Neutrophil pct 92.0 % [facility] Comment: Interpretive Data Percent cell count reference ranges are not reported, since discordance with absolute values may lead to misinterpretation of CBC data. Current Interpretive Data was last revised on 2018. Testing performed by: [address] [address] Imm gran pct 1.2 % [facility] Comment: Interpretive Data Percent cell count reference ranges are not reported, since discordance with absolute values may lead to misinterpretation of CBC data. Current Interpretive Data was last revised on 2018. Testing performed by: [address] [address] Lymphocyte pct 5.9 % [facility] Comment: Interpretive Data Percent cell count reference ranges are not reported, since discordance with absolute values may lead to misinterpretation of CBC data. Current Interpretive Data was last revised on 2018. Testing performed by: [address] [address] Monocyte pct 0.6 % [facility] Comment: Interpretive Data Percent cell count reference ranges are not reported, since discordance with absolute values may lead to misinterpretation of CBC data. Current Interpretive Data was last revised on 2018. Testing performed by: [address] [address] Eosinophil pct 0.0 % [facility] Comment: Interpretive Data Percent cell count reference ranges are not reported, since discordance with absolute values may lead to misinterpretation of CBC data. Current Interpretive Data was last revised on 2018. Testing performed by: [address] [address] Basophil pct 0.3 % [facility] Comment: Interpretive Data Percent cell count reference ranges are not reported, since discordance with absolute values may lead to misinterpretation of CBC data. Current Interpretive Data was last revised on 2018. Testing performed by: [address] [address] Blood 03/21/2025 10:4 9 PM CDT 03/21/2025 10:57 PM CDT us Misti Tobar NP LAB BLOOD ORDERABLES Final Resul t [place] [address] [facility] [place] [address] * (ABNORMAL) CBC with auto differential (03/21/2025 10:49 PM CDT) WBC 11.11(H) 3.80 - 9.90 K/[facility]umm Comment:Testing performed by : [address] [address] Hgb 13.7 11.9 - 15.5 g/dL [facility] Comment:Testing performed by : [address] [address] Hct 42.8 35.6 - 45.5 % [facility] Comment:Testing performed by : [address] [address] Plt 230 150 - 400 K/cumm [facility] Comment:Testing performed by : [address] [address] MPV 10.4 9.1 - 12.3 fL [facility] Comment:Testing performed by : [address] [address] RBC 5.12 3.90 - 5.20 M/cumm [facility] Comment:Testing performed by : [address] [address] MCV 83.6 81.3 - 96.4 fL [place] Comment:Testing performed by : [address] [address] MCH 26.8(L) 27.1 - 33.3 pg [place] Comment:Testing performed by : [address] [address] MCHC 32.0(L) 32.3 - 35.7 g/dL [place] Comment:Testing performed by : [address] [address] RDW CV 15.2(H) 11.1 - 14.9 % [facility] Comment:Testing performed by : [address] [address] RDW SD 46.4 35.7 - 48.1 fL [place] Comment:Testing performed by : [address] [address] NRBC abs 0.00 0.00 - 0.01 K/cumm [place] Comment:Testing performed by : [address] [address] Blood Venous blood specimen / Unknown 03/21/2025 10:49 PM CDT 03/21/2025 10:57 PM CDT Misti Tobar NP LAB BLOOD ORDERABLES Final Resul t [place] [address] [facility] Department of Laboratories [place], [place] [id number] * (ABNORMAL) Comprehensive metabolic panel (03/21/2025 10:49 PM CDT) Sodium 142 135 - 145 mmol/L Comment:Testing performed by : [address] [address] Potassium, pl 4.3 3.3 - 4.9 mmol/L [place] Comment:Testing performed by : [address] [address] Chloride 103 97 - 110 mmol/L [facility] Comment:Testing performed by : [address] [address] CO2 25 22 - 32 mmol/L [place] Comment:Testing performed by : [address] [address] Anion gap 14 2 - 15 mmol/L [place] Comment:Testing performed by : [address], [place]., [address] BUN 27(H) 6 - 25 mg/dL [facility] Comment:Testing performed by : [address], [place]., [address] Creatinine 1.94(H) 0.60 - 1.10 mg/dL [place] Comment:Testing performed by : [address] [address] Glucose 178 70 - 199 mg/dL [facility] Comment: Interpretive Data Fasting glucose >/= 126 [...] was last revised 2022. Testing performed by: [address] [address] Calcium 9.6 8.5 - 10.3 mg/dL [facility] Comment:Testing performed by : [address] [address] Bilirubin, total 0.5 0.1 - 1.2 mg/dL [facility] Comment:Testing performed by : [address] [address] Protein, pl 7.5 6.5 - 8.5 g/dL [place] Comment:Testing performed by : [address] [address] Albumin 4.1 3.5 - 5.0 g/dL [facility] Comment:Testing performed by : [facility], [address] [place] [address]., [address] Alk phos 69 40 - 130 Units/L [place] Comment:Testing performed by : [address] [address] ALT 10 7 - 45 Units/L [place] Comment:Testing performed by : [address] [address] AST 26 10 - 45 Units/L [facility] Comment:Testing performed by : [address] [address] Blood 03/21/2025 10:4 9 PM CDT 03/21/2025 10:57 PM CDT us Misti Tobar NP LAB BLOOD ORDERABLES Final Resul t [facility] [address] [facility] Department [place] [address] * Hepatitis panel, acute Blood (08/10/2024 12:01 PM CDT) Hep A IgM Nonreactive Nonreactive Hep B core IgM Nonreactive Nonreactive [facility] Hep C Ab Nonreactive Nonreactive [facility] Comment:Antibodies to HCV no t detected. Does NOT exclude the possibility of recent exposure to HCV. Current interpretive data was last revised on 22 HepBsAg Nonreactive Nonreactive [facility] Blood 08/10/2024 12:0 1 PM CDT 08/10/2024 2:23 PM CDT us Zarina Carroll MD LAB MICROBIOLOGY - GENERAL ORDER TATO Final Result [facility] [place] [address] from Last 3 Months or Most Recently Relevant to Health Maintenance Insurance [facility] MEDICARE ADVANTAGE [facility] MEDICARE Address: [facility] [address] [place] [address] [employer] [facility] MEDICARE ADVANTAGE [facility] MEDICARE Address: [address] [address] [place] [address] [employer] [facility] MEDICARE ADVANTAGE [facility] MEDICARE Address: [address] [address] [place] [address] [employer] Advance Directives For more information, please contact: [phone] * Full Code (Latest Code Status on File) Date Activated Date Inactivated Comments 05/30/2023 2:42 AM 06/01/2023 6:25 PM * Full Code Date Activated Date Inactivated Comments 05/30/2023 12:31 AM 05/30/2023 2:42 AM * Full Code Date Activated Date Inactivated Comments 05/05/2022 2:33 PM 05/14/2022 7:09 PM Care Teams Shipping And Receiving Supervisor Relationship Specialty Start Date End Date Jn Velásquez MD PCP - General Family Medicine 05/29/23 Waqas De Leon MD Internal Medicine 11/20/21 Waqas De Leon MD Internal Medicine 06/06/19 Cortney Corona MD Referring Physician Surgery 05/14/22 Miscellaneous, Not In File 05/31/23 Daniel Go MD [address] [place] [address] Consulting Physician Interventional Cardiology 05/31/23 [place] [address] [facility] [address] [place] [address] Consulting Physician Pulmonary Disease 05/31/23
--- OUTSIDE RECORDS SUMMARY | 2025-05-08 13:11 | XMS_ITS | Clinical Summary ---
Author Organization [facility] Address [address], [place] [address] Phone Care Team Providers Care Brim Greaser Operator Name Role Phone Jn Velásquez MD Primary Care Provider Allergies Active Allergy Reactions Criticality Noted Date [...] 0 Active ergocalciferol (VITAMIN D2) 1.25 MG (98775 [place]) capsule Take 50,000 Units by mouth [...] on file Legal Sex Female 8:46 AM [facility] Gender Identity Not on file Sexual [...] 1:26 PM CDT Height 154.9 cm (5' 1) 06/28/2022 1:26 PM CDT Body Mass Index 38.17 06/28/2022 1:26 PM CDT Plan of Treatment Health Maintenance Due Date Last Done Comments Pneumococcal PPSV23/PCV13 65 + Years / Low and Medium Risk (2 of 3 - PCV20 or PCV21) 11/26/2016 11/26/2015 Influenza Vaccine (Season Ended) 2025 Insurance MEDICAID - [place] [employer] MEDICARE Care Teams Brim Greaser Operator Relationship Specialty Start Date End Date Jn Velásquez MD [address] [place] [address] PCP - General Internal Medicine 06/18/20
--- OUTSIDE RECORDS SUMMARY | 2025-05-08 13:11 | XMS_ITS | Data Portability ---
Author Organization [facility], Main Office Address [address] [place] [address] Assessment No assessment recorded. Plan of Treatment Reminders Order Date Submit Date Provider Last Modified By Organization Details Last Modified Time Details Appointments None recorded. Lab lipid panel, serum 2022 023 [facility] (Lab), [address] [place], [address], 3 13:44:14 glycohemogl obin, total, blood 2022 023 [facility] (Lab), [address] [place], [address], 3 14:14:23 CMP, serum or plasma 2022 023 [facility] (Lab), [address] [place], [address], 3 14:34:25 TSH, serum or plasma 2022 023 [facility] (Lab), [address] [place], [address], 3 14:18:28 T4, free, serum 2022 023 [facility] (Lab), [address] [place], [address], 3 14:08:54 T3, free, serum or plasma 2022 023 [facility] (Lab), [address] [place], [address], 3 14:08:59 Referral endocrinolo gy referral - bilateral adrenal hyperplasia with abnormal DST, unable to tolerate korlym 2022 023 [email or web address] [facility], [address], [place], [address], 12:50:55 Procedures None recorded. Surgeries None recorded. Imaging None recorded. Medication Orders Ozempic 2 mg/dose (8 mg/3 mL) subcutaneou s pen injector 2022 023 [facility][id number], [address], [place], [id number], 4 13:30:28 Farxiga 5 mg tablet 2022 023 [id number], [address], [place], [id number], 4 13:29:03 Unithroid 75 mcg tablet 2022 023 [place] [address] [facility] #[id number], [address], [place], [id number], 4 13:31:10 Wegovy 0.5 mg/0.5 mL subcutaneou s pen injector 2022 023 [facility] #[id number], [address], [place], [id number], 3 12:27:44 Korlym 300 mg tablet 2022 023 [id number] [facility], [address], [place], [address], 3 12:29:23 Unithroid 100 mcg tablet 2022 023 [email or web address] [id number], [address], [place], [id number], 12:28:35 Patient TargetsNo targets recorded. Patient InstructionsNo [...] 2.6 pg/mL 2.77-5 .27 low Not Available [facility] (Lab) [address] [place], [address], 12/14/2022 15:23:41 12/14/1912/14/2022 T4 FREE free T4 1.40 NG/dL 0.78-2 .19 Not Available [facility] (Lab) [address] [place], [address], 12/14/2022 15:23:38 12/14/19 23 12/14/2022 TSH thyroid-stim ulating hormone 0.598 uIU/m L 0.465- 4.680 Not Available [facility] (Lab) [address] [place], [address], 12/14/2022 15:12:15 12/14/19 23 12/14/2022 HEMOG LOBIN A1C HA1C 5.6 % 4.0-6. 0 Diabe brianna Scree gisele Crite pamela: <5.7% Consi stent with absen ce of diabe brianna 5.7-6 .4% Consi stent with incre ased risk for diabe brianna (pred iabet es) >OR=6 .5% Consi stent with diabe brianna REFER ENCE: Diabe brianna Care 2016, 39(Anderson ppl.1 ):s13 -s22 Not Available [facility] (Lab) [address] [facility] [place], [address], 12/14/2022 14:54:35 12/14/19 23 12/14/2022 COMPR EHENS KECIA METAB OLIC PANEL A/G ratio 1.3 ratio 1.0-2. 0 Not Available [facility] (Lab) [address] [place], [address], 12/14/2022 14:24:11 12/14/19 23 12/14/2022 COMPR EHENS KECIA METAB OLIC PANEL carbon dioxide 25 mmol/ L 22-30 Not Available [facility] (Lab) [address] [place], [address], 12/14/2022 14:24:11 12/14/19 23 12/14/2022 COMPR EHENS KECIA METAB OLIC PANEL sodium 140 mmol/ L 137-14 5 Not Available [facility] (Lab) [address] [place], [address], 12/14/2022 14:24:11 12/14/19 23 12/14/2022 COMPR EHENS KECIA METAB OLIC PANEL potassium 4.0 mmol/ L 3.5-5. 1 Not Available [facility] (Lab) [address] [place], [address], 12/14/2022 14:24:11 12/14/19 23 12/14/2022 COMPR EHENS KECIA METAB OLIC PANEL chloride 103 mmol/ L 98-107 Not Available [facility] (Lab) [address] [place], [address], 12/14/2022 14:24:11 12/14/19 23 12/14/2022 COMPR EHENS KECIA METAB OLIC PANEL anion gap 16.0 mmol/ L 14-22 Not Available [facility] (Lab) [address] [place], [address], 12/14/2022 14:24:11 12/14/19 23 12/14/2022 COMPR EHENS KECIA METAB OLIC PANEL glucose 109 mg/dL 70-99 high Not Available [facility] (Lab) [address] [place], [address], 12/14/2022 14:24:11 12/14/19 23 12/14/2022 COMPR EHENS KECIA METAB OLIC PANEL BUN 17 mg/dL 8-19 Not Available [facility] (Lab) [address] [place], [address], 12/14/2022 14:24:11 12/14/19 23 12/14/2022 COMPR EHENS KECIA METAB OLIC PANEL creatinine 1.74 mg/dL 0.66-1 .25 high Not Available [facility] (Lab) [address] [place], [address], 12/14/2022 14:24:11 12/14/19 23 12/14/2022 COMPR EHENS KECIA METAB OLIC PANEL GFR 29 Refer ence Range : [place] ge GFR Healt hy Adult : >60 [...] calcu lator is avail able on the [facility] websi te: [email or web address] :[email or web address] ofess ional s/kdo qi/gf r_cal culat or Not Available [facility] (Lab) [address] [place], [address], 12/14/2022 14:24:11 12/14/19 23 12/14/2022 COMPR EHENS KECIA METAB OLIC PANEL alkaline phosphatase 57 U/L 38-126 Not Available [facility] (Lab) [address] [place], [address], 12/14/2022 14:24:11 12/14/19 23 12/14/2022 COMPR EHENS KECIA METAB OLIC PANEL alanine aminotransfe rase 17 U/L 0-35 Not Available [facility] (Lab) [address] [place], [address], 12/14/2022 14:24:11 12/14/19 23 12/14/2022 COMPR EHENS KECIA METAB OLIC PANEL aspartate aminotransfe rase 26 U/L 15-37 Not Available [facility] (Lab) [address] [place], [address], 12/14/2022 14:24:11 12/14/19 23 12/14/2022 COMPR EHENS KECIA METAB OLIC PANEL bilirubin, total 0.60 mg/dL 0.20-1 .30 Not Available [facility] (Lab) [address] [place], [address], 12/14/2022 14:24:11 12/14/19 23 12/14/2022 COMPR EHENS KECIA METAB OLIC PANEL calcium 9.0 mg/dL 8.4-10 .2 Not Available [facility] (Lab) [address] [place], [address], 12/14/2022 14:24:11 12/14/19 23 12/14/2022 COMPR EHENS KECIA METAB OLIC PANEL total protein 7.7 g/dL 6.3-8. 2 Not Available [facility] (Lab) [address] [place], [address], 12/14/2022 14:24:11 12/14/19 23 12/14/2022 COMPR EHENS KECIA METAB OLIC PANEL albumin 4.3 g/dL 3.0-4. 4 Not Available [facility] (Lab) [address] [place], [address], 12/14/2022 14:24:11 12/14/19 23 12/14/2022 COMPR EHENS KECIA METAB OLIC PANEL globulin 3.4 g/dL 2.6-4. 2 Not Available [facility] (Lab) [address] [place], [address], 12/14/2022 14:24:11 12/14/19 23 12/14/2022 MICRO ALBUM N RNDM W/CRE AT RATIO ur creat 122.62 mg/dL REFER ENCE RANGE NOT ESTAB LISHE D FOR RANDO M URINE CREAT ININE Not Available [facility] (Lab) [address] [place], [address], 12/14/2022 13:55:12 12/14/19 23 12/14/2022 MICRO ALBUM N RNDM W/CRE AT RATIO microalbumin , urine 217.1 mg/L 0.0-16 .6 high Not Available [facility] (Lab) [address] [place], [address], 12/14/2022 13:55:12 12/14/19 23 12/14/2022 MICRO ALBUM [...] VOL. 26: S94-S , 2002 Not Available [facility] (Lab) [address] [place], [address], 12/14/2022 13:55:12 03/07/20 23 03/07/2023 MICRO ALBUM N RNDM W/CRE AT RATIO ur creat 133.14 mg/dL REFER ENCE RANGE NOT ESTAB LISHE D FOR RANDO M URINE CREAT ININE Not Available [facility] (Lab) [address] [place], [address], 03/07/2023 14:32:57 03/07/20 23 03/07/2023 MICRO ALBUM N RNDM W/CRE AT RATIO microalbumin , urine 162.5 mg/L 0.0-16 .6 high Not Available [facility] (Lab) [address] [place], [address], 03/07/2023 14:32:57 03/07/20 23 03/07/2023 MICRO ALBUM [...] VOL. 26: S94-S , 2002 Not Available [facility] (Lab) [address] [place], [address], 03/07/2023 14:32:57 03/07/20 23 03/07/2023 COMPR EHENS KECIA METAB OLIC PANEL sodium 138 mmol/ L 137-14 5 Not Available [facility] (Lab) [address] [place], [address], 03/07/2023 14:33:43 03/07/20 23 03/07/2023 COMPR EHENS KECIA METAB OLIC PANEL potassium 4.9 mmol/ L 3.5-5. 1 Not Available [facility] (Lab) [address] [place], [address], 03/07/2023 14:33:43 03/07/20 23 03/07/2023 COMPR EHENS KECIA METAB OLIC PANEL chloride 105 mmol/ L 98-107 Not Available [facility] (Lab) [address] [place], [address], 03/07/2023 14:33:43 03/07/20 23 03/07/2023 COMPR EHENS KECIA METAB OLIC PANEL carbon dioxide 26 mmol/ L 22-30 Not Available [facility] (Lab) [address] [place], [address], 03/07/2023 14:33:43 03/07/20 23 03/07/2023 COMPR EHENS KECIA METAB OLIC PANEL anion gap 11.9 mmol/ L 14-22 low Not Available [facility] (Lab) [address] [place], [address], 03/07/2023 14:33:43 03/07/20 23 03/07/2023 COMPR EHENS KECIA METAB OLIC PANEL glucose 119 mg/dL 70-99 high Not Available [facility] (Lab) [address] [place], [address], 03/07/2023 14:33:43 03/07/20 23 03/07/2023 COMPR EHENS KECIA METAB OLIC PANEL BUN 25 mg/dL 8-19 high Not Available [facility] (Lab) [address] [place], [address], 03/07/2023 14:33:43 03/07/20 23 03/07/2023 COMPR EHENS KECIA METAB OLIC PANEL creatinine 1.89 mg/dL 0.66-1 .25 high Not Available [facility] (Lab) [address] [place], [address], 03/07/2023 14:33:43 03/07/20 23 03/07/2023 COMPR EHENS KECIA METAB OLIC PANEL GFR 26 Refer ence Range : [place] GFR Healt hy Adult : >60 [...] calcu lator is avail able on the [facility] websi te: [email or web address] :[email or web address]/pr ofess ional s/kdo qi/gf r_cal culat or Not Available [facility] (Lab) [address] [place], [address], 03/07/2023 14:33:43 03/07/20 23 03/07/2023 COMPR EHENS KECIA METAB OLIC PANEL alkaline phosphatase 57 U/L 38-126 Not Available [facility] (Lab) [address] [place], [address], 03/07/2023 14:33:43 03/07/20 23 03/07/2023 COMPR EHENS KECIA METAB OLIC PANEL alanine aminotransfe rase 17 U/L 0-35 Not Available [facility] (Lab) [address] [place], [address], 03/07/2023 14:33:43 03/07/20 23 03/07/2023 COMPR EHENS KECIA METAB OLIC PANEL aspartate aminotransfe rase 29 U/L 15-37 Not Available [facility] (Lab) [address] [place], [address], 03/07/2023 14:33:43 03/07/20 23 03/07/2023 COMPR EHENS KECIA METAB OLIC PANEL bilirubin, total 0.70 mg/dL 0.20-1 .30 Not Available [facility] (Lab) [address] [place], [address], 03/07/2023 14:33:43 03/07/20 23 03/07/2023 COMPR EHENS KECIA METAB OLIC PANEL calcium 9.3 mg/dL 8.4-10 .2 Not Available [facility] (Lab) [address] [place], [address], 03/07/2023 14:33:43 03/07/20 23 03/07/2023 COMPR EHENS KECIA METAB OLIC PANEL total protein 7.5 g/dL 6.3-8. 2 Not Available [facility] (Lab) [address] [place], [address], 03/07/2023 14:33:43 03/07/20 23 03/07/2023 COMPR EHENS KECIA METAB OLIC PANEL albumin 4.2 g/dL 3.0-4. 4 Not Available [facility] (Lab) [address] [place], [address], 03/07/2023 14:33:43 03/07/20 23 03/07/2023 COMPR EHENS KECIA METAB OLIC PANEL globulin 3.3 g/dL 2.6-4. 2 Not Available [facility] (Lab) [address] [place], [address], 03/07/2023 14:33:43 03/07/20 23 03/07/2023 COMPR EHENS KECIA METAB OLIC PANEL A/G ratio 1.3 ratio 1.0-2. 0 Not Available [facility] (Lab) [address] [place], [address], 03/07/2023 14:33:43 03/07/20 23 03/07/2023 PHOSP HORUS phosphorus 4.2 mg/dL 2.5-4. 5 Not Available [facility] (Lab) [address] [place], [address], 03/07/2023 14:33:47 03/07/20 23 03/07/2023 T4 FREE free T4 1.09 NG/dL 0.78-2 .19 Not Available [facility] (Lab) [address] [place], [address], 03/07/2023 14:39:37 03/07/2003/07/2023 T3 FREE free T3 2.4 pg/mL 2.77-5 .27 low Not Available [facility] (Lab) [address] [place], [address], 03/07/2023 14:39:46 03/07/20 23 03/07/2023 TSH thyroid-stim ulating hormone 11.000 uIU/m L 0.465- 4.680 high Not Available [facility] (Lab) [address] [place], [address], 03/07/2023 14:52:02 03/07/20 23 03/07/2023 HEMOG LOBIN A1C HA1C 6.3 % 4.0-6. 0 high Diabe brianna Scree gisele Crite pamela: <5.7% Consi stent with absen ce of diabe brianna 5.7-6 .4% Consi stent with incre ased risk for diabe brianna (pred iabet es) >OR=6 .5% Consi stent with diabe brianna REFER ENCE: Diabe brianna Care 2016, 39(Anderson ppl.1 ):s13 -s22 Not Available [facility] (Lab) [address] [place], [address], 03/07/2023 15:53:45 05/13/20 23 05/13/2023 COMPR EHENS KECIA METAB OLIC PANEL sodium 141 mmol/ L 137-14 5 Not Available [facility] (Lab) [address] [place], [address], 05/13/2023 14:34:25 05/13/20 23 05/13/2023 COMPR EHENS KECIA METAB OLIC PANEL potassium 4.4 mmol/ L 3.5-5. 1 Not Available [facility] (Lab) [address] [place], [address], 05/13/2023 14:34:25 05/13/20 23 05/13/2023 COMPR EHENS KECIA METAB OLIC PANEL chloride 101 mmol/ L 98-107 Not Available [facility] (Lab) [address] [place], [address], 05/13/2023 14:34:25 05/13/20 23 05/13/2023 COMPR EHENS KECIA METAB OLIC PANEL carbon dioxide 26 mmol/ L 22-30 Not Available [facility] (Lab) [address] [place], [address], 05/13/2023 14:34:25 05/13/20 23 05/13/2023 COMPR EHENS KECIA METAB OLIC PANEL anion gap 18.4 mmol/ L 14-22 Not Available [facility] (Lab) [address] [place], [address], 05/13/2023 14:34:25 05/13/20 23 05/13/2023 COMPR EHENS KECIA METAB OLIC PANEL glucose 93 mg/dL 70-99 Not Available [facility] (Lab) [address] [place], [address], 05/13/2023 14:34:25 05/13/20 23 05/13/2023 COMPR EHENS KECIA METAB OLIC PANEL BUN 16 mg/dL 8-19 Not Available [facility] (Lab) [address] [place], [address], 05/13/2023 14:34:25 05/13/20 23 05/13/2023 COMPR EHENS KECIA METAB OLIC PANEL creatinine 1.69 mg/dL 0.66-1 .25 high Not Available [facility] (Lab) [address] [place], [address], 05/13/2023 14:34:25 05/13/20 23 05/13/2023 COMPR EHENS KECIA METAB OLIC PANEL GFR 30 Refer ence Range : [place] GFR Healt hy Adult : >60 [...] calcu lator is avail able on the [facility] websi te: https :[email or web address] [email or web address]/pr agnesess ional s/kdo qi/gf r_cal culat or Not Available [facility] (Lab) [address] [place], [address], 05/13/2023 14:34:25 05/13/20 23 05/13/2023 COMPR EHENS KECIA METAB OLIC PANEL alkaline phosphatase 58 U/L 38-126 Not Available [facility] (Lab) [address] [place], [address], 05/13/2023 14:34:25 05/13/20 23 05/13/2023 COMPR EHENS KECIA METAB OLIC PANEL alanine aminotransfe rase 16 U/L 0-35 Not Available [facility] (Lab) [address] [place], [address], 05/13/2023 14:34:25 05/13/20 23 05/13/2023 COMPR EHENS KECIA METAB OLIC PANEL aspartate aminotransfe rase 28 U/L 15-37 Not Available [facility] (Lab) [address] [place], [address], 05/13/2023 14:34:25 05/13/20 23 05/13/2023 COMPR EHENS KECIA METAB OLIC PANEL bilirubin, total 0.70 mg/dL 0.20-1 .30 Not Available [facility] (Lab) [address] [place], [address], 05/13/2023 14:34:25 05/13/20 23 05/13/2023 COMPR EHENS KECIA METAB OLIC PANEL calcium 9.3 mg/dL 8.4-10 .2 Not Available [facility] (Lab) [address] [place], [address], 05/13/2023 14:34:25 05/13/20 23 05/13/2023 COMPR EHENS KECIA METAB OLIC PANEL total protein 7.2 g/dL 6.3-8. 2 Not Available [facility] (Lab) [address] [place], [address], 05/13/2023 14:34:25 05/13/20 23 05/13/2023 COMPR EHENS KECIA METAB OLIC PANEL albumin 4.0 g/dL 3.0-4. 4 Not Available [facility] (Lab) [address] [place], [address], 05/13/2023 14:34:25 05/13/20 23 05/13/2023 COMPR EHENS KECIA METAB OLIC PANEL globulin 3.2 g/dL 2.6-4. 2 Not Available [facility] (Lab) [address] [place], [address], 05/13/2023 14:34:25 05/13/20 23 05/13/2023 COMPR EHENS KECIA METAB OLIC PANEL A/G ratio 1.3 ratio 1.0-2. 0 Not Available [facility] (Lab) [address] [place], [address], 05/13/2023 14:34:25 07/04/20 23 07/04/2023 LIPID PANEL cholesterol 165 mg/dL 140-19 9 NIH RHYS NSUS RECOM MENDA TION FOR JENNIFER STERO L: ADULT CHILD LOW RISK: <200 <170 BORDE RLINE : <200- 239 ----- HIGH RISK: >240 >200 Not Available [facility] (Lab) [address] [place], [address], 07/04/2023 13:44:14 07/04/20 23 07/04/2023 LIPID PANEL triglyceride s 173 mg/dL 0-150 high NIH RHYS NSUS REPOR T RECOM MENDA TION FOR TRIGL YCERI LINO: ADULT CHILD LOW RISK: <150 ----- BODER LINE: 150-1 99 ----- HIGH RISK: >200 ----- Not Available [facility] (Lab) [address] [place], [address], 07/04/2023 13:44:14 07/04/20 23 07/04/2023 LIPID PANEL HDL cholesterol 51 mg/dL 40- Not Available [facility] (Lab) [address] [place], [address], 07/04/2023 13:44:14 07/04/20 23 07/04/2023 LIPID PANEL [...] WILL NOT BE REPOR TERRY. Not Available [facility] (Lab) [address] [place], [address], 07/04/2023 13:44:14 07/04/20 23 07/04/2023 COMPR EHENS KECIA METAB OLIC PANEL sodium 140 mmol/ L 137-14 5 Not Available [facility] (Lab) [address] [place], [address], 07/04/2023 13:44:20 07/04/20 23 07/04/2023 COMPR EHENS KECIA METAB OLIC PANEL potassium 4.8 mmol/ L 3.5-5. 1 Not Available [facility] (Lab) [address] [place], [address], 07/04/2023 13:44:20 07/04/20 23 07/04/2023 COMPR EHENS KECIA METAB OLIC PANEL chloride 102 mmol/ L 98-107 Not Available [facility] (Lab) [address] [place], [address], 07/04/2023 13:44:20 07/04/20 23 07/04/2023 COMPR EHENS KECIA METAB OLIC PANEL carbon dioxide 29 mmol/ L 22-30 Not Available [facility] (Lab) [address] [place], [address], 07/04/2023 13:44:20 07/04/20 23 07/04/2023 COMPR EHENS KECIA METAB OLIC PANEL anion gap 13.8 mmol/ L 14-22 low Not Available [facility] (Lab) [address] [place], [address], 07/04/2023 13:44:20 07/04/20 23 07/04/2023 COMPR EHENS KECIA METAB OLIC PANEL glucose 99 mg/dL 70-99 Not Available [facility] (Lab) [address] [place], [address], 07/04/2023 13:44:20 07/04/20 23 07/04/2023 COMPR EHENS KECIA METAB OLIC PANEL BUN 24 mg/dL 8-19 high Not Available [facility] (Lab) [address] [place], [address], 07/04/2023 13:44:20 07/04/20 23 07/04/2023 COMPR EHENS KECIA METAB OLIC PANEL creatinine 1.83 mg/dL 0.66-1 .25 high Not Available [facility] (Lab) [address] [place], [address], 07/04/2023 13:44:20 07/04/20 23 07/04/2023 COMPR EHENS KECIA METAB OLIC PANEL GFR 27 Refer ence Range : [place] GFR Healt hy Adult : >60 [...] or ethni c subgr oups, such as Hisnc nics. Outsi de the valid ated casper [...] calcu lator is avail able on the [facility] websi te: https :[email or web address]/pr ofess ional s/kdo qi/gf r_cal culat or Not Available [facility] (Lab) [address] [place], [address], 07/04/2023 13:44:20 07/04/2007/04/2023 COMPR EHENS KECIA METAB OLIC PANEL alkaline phosphatase 70 U/L 38-126 Not Available [facility] (Lab) [address] [place], [address], 07/04/2023 13:44:20 07/04/20 23 07/04/2023 COMPR EHENS KECIA METAB OLIC PANEL alanine aminotransfe rase 16 U/L 0-35 Not Available [facility] (Lab) [address] [place], [address], 07/04/2023 13:44:20 07/04/20 23 07/04/2023 COMPR EHENS KECIA METAB OLIC PANEL aspartate aminotransfe rase 26 U/L 15-37 Not Available [facility] (Lab) [address] [place], [address], 07/04/2023 13:44:20 07/04/20 23 07/04/2023 COMPR EHENS KECIA METAB OLIC PANEL bilirubin, total 0.50 mg/dL 0.20-1 .30 Not Available [facility] (Lab) [address] [place], [address], 07/04/2023 13:44:20 07/04/20 23 07/04/2023 COMPR EHENS KECIA METAB OLIC PANEL calcium 9.2 mg/dL 8.4-10 .2 Not Available [facility] (Lab) [address] [place], [address], 07/04/2023 13:44:20 07/04/20 23 07/04/2023 COMPR EHENS KECIA METAB OLIC PANEL total protein 6.9 g/dL 6.3-8. 2 Not Available [facility] (Lab) [address] [place], [address], 07/04/2023 13:44:20 07/04/20 23 07/04/2023 COMPR EHENS KECIA METAB OLIC PANEL albumin 3.8 g/dL 3.0-4. 4 Not Available [facility] (Lab) [address] [place], [address], 07/04/2023 13:44:20 07/04/20 23 07/04/2023 COMPR EHENS KECIA METAB OLIC PANEL globulin 3.1 g/dL 2.6-4. 2 Not Available [facility] (Lab) [address] [place], [address], 07/04/2023 13:44:20 07/04/20 23 07/04/2023 COMPR EHENS KECIA METAB OLIC PANEL A/G ratio 1.2 ratio 1.0-2. 0 Not Available [facility] (Lab) [address] [place], [address], 07/04/2023 13:44:20 07/04/20 23 07/04/2023 T4 FREE free T4 0.92 NG/dL 0.78-2 .19 Not Available [facility] (Lab) [address] [place], [address], 07/04/2023 14:08:54 07/04/20 23 07/04/2023 T3 FREE free T3 3.4 pg/mL 2.77-5 .27 Not Available [facility] (Lab) [address] [place], [address], 07/04/2023 14:08:59 07/04/2007/04/2023 HEMOG LOBIN A1C HA1C 5.9 % 4.0-6. 0 Diabe brianna Scree gisele Crite pamela: <5.7% Consi stent with absen ce of diabe brianna 5.7-6 .4% Consi stent with incre ased risk for diabe brianna (pred iabet es) >OR=6 .5% Consi stent with diabe brianna REFER ENCE: Diabe brianna Care 2016, 39(Anderson ppl.1 ):s13 -s22 Not Available [facility] (Lab) [address] [place], [address], 07/04/2023 14:14:23 07/04/20 23 07/04/2023 TSH thyroid-stim ulating hormone 1.210 uIU/m L 0.465- 4.680 Not Available [facility] (Lab) [address] [place], [address], 07/04/2023 14:18:28 03/16/20 23 03/16/2023 US, demetrius Hernández observ ation record ed. [email or web address] [facility] [address], [place], [address], 04/05/2023 16:52:27 Result Notes None recorded. Problems Name Problem SNOMED Code Status Onset Date Resolution Date Notes Provider Name and Address Organization Details Recorded Time Dyspnea 383349529 Active 2021 Ingrid Nava null, [facility] 16:49:46 Postoperative hypothyroidism 42284911 Active 2021 Ingrid Brandy null, [facility] 3 16:49:46 Vitamin D deficiency 47496487 Active 2021 Ingrid Brandy null, [facility] 3 16:49:46 Dyslipidemia 197043519 Active 2021 Ingrid Brandy null, [facility] 3 16:49:46 Hypothyroidism 09017814 Active 2021 Ingrid Brandy null, [facility] 3 16:49:46 Hypokalemia 02281369 Active 2021 Ingrid Brandy null, [facility] 3 16:49:47 Hypercortisoli sm 18834048 Active 2021 Ingrid Brandy null, [facility] 3 16:49:47 Vitamin B12 deficiency (non anemic) 12371677 Active 2021 Ingrid Brandy null, [facility] 3 16:49:47 Prediabetes 316914829 Active 2021 Ingrid Brandy null, [facility] 3 16:49:47 Obesity 394021306 Active 2022 Ingridyaniv Nava null, [facility] 3 16:49:47 Well controlled type 2 diabetes mellitus 888315517 Active 2022 Stephanie Morrissey MD [address], [facility] [address], [place], [address], [facility] [employer] [facility] [employer] 3 12:31:31 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 Please review these documents and add these problems to the patient's chart manually as needed. Problem Notes None recorded. Procedures Surgical History Date Name Laterality Status Provider Name and Address Organization Details Recorded Time 11/09/19 22 Foot Surgery completed Not Available [facility] 01/05/2023 22:43:30 removal of cardiac pacemaker completed Not Available [facility] 01/05/2023 22:43:30 Pacemaker completed Not Available [facility] 01/05/2023 22:43:30 Hysterectomy completed Not Available [facility] 01/05/2023 22:43:30 cholecystectomy completed Not Available [facility] 01/05/2023 22:43:30 Imaging Results None recorded. Procedure Notes None recorded. Medical Equipment None Reported. Allergies Allergen ID Allergen Name Allergen Category Reaction Reaction Severity Criticality Documentation Date Start Date Code Code System Note Provider Name and Address Organization Details Recorded Time 01738 lisinopri l medicatio n Not available Not available Not available 01/05/2023 00978 RxNorm Not Available [facility] 22:48:44 Medications Name Sig Start Date [...] Not Available Not Available Not Available OneTouch Ultra Test strips USE TO TEST 2-4 [...] with needle 1 mL 31 gauge x 16 USE DIRECTED TO INJECT B12 ONCE EVERY [...] completed Not Available Not Available Not Available AlejandroAraseli COVID-19 Ag Self Test kit Use as [...] mg-100 mg tablets in a dose pack (Moderate Renal Dose) TAKE 2 TABLETS TOGETHER (ONE 150 [...] % 96 % 58 /min 97.6 [degF] 10039.7 7 g 140 mm[Hg] 65 mm[Hg] Not Available [employer] 3 22:45:29 Date Recorded Body height Body mass index (BMI) Body weight Body temperature Respiratory rate Heart rate Systolic blood pressure Diastolic blood pressure Provider Name and Address Organization Details Last Updated DateTime 3 157.48 cm 39.8 kg/m2 63947.9 8 g 96.1 [degF] 20 /min 67 /min 130 mm[Hg] 64 mm[Hg] CANDIE Avelar [facility] [employer] 3 11:52:51 Date Recorded Body mass index (BMI) Body height Oxygen saturation Oxygen saturation in Arterial blood by Pulse oximetry Heart rate Body temperature Body weight Systolic blood pressure Diastolic blood pressure Provider Name and Address Organization Details Last Updated DateTime 2 37.3 kg/m2 157.48 cm 99 % 99 % 74 /min 97.6 [degF] 25928.8 4 g 120 mm[Hg] 75 mm[Hg] Not Available [facility] 3 22:45:29 Date Recorded Body height Body mass index (BMI) Body weight Heart rate Body temperature Systolic blood pressure Diastolic blood pressure Provider Name and Address Organization Details Last Updated DateTime 3 157.48 cm 40.8 kg/m2 444504. 82 g 63 /min 97.1 [degF] 142 mm[Hg] 70 mm[Hg] Nicole Chavis MA [facility] [employer] 3 12:11:36 Date Recorded Body mass index (BMI) Body height Oxygen saturation Oxygen saturation in Arterial blood by Pulse oximetry Heart rate Body temperature Body weight Systolic blood pressure Diastolic blood pressure Provider Name and Address Organization Details Last Updated DateTime 2 40.2 kg/m2 157.48 cm 96 % 96 % 65 /min 97.3 [degF] 94208.3 2 g 130 mm[Hg] 55 mm[Hg] Not Available [facility] 3 22:45:29 Social History Question Answer Notes LastModified by Organizat ion Details LastModified Time Tobacco Smoking Status Former Smoker Not Available [facility] 01/05/2023 22:43:25 Do You Have An Advance Directive? No Information not available 07/14/2023 Are You Blind Or Do You Have Difficulty Seeing? No Information not available 07/14/2023 Is Blood Transfusion Acceptable In An Emergency? Yes Information not available 07/14/2023 What Is Your Level Of Caffeine Consumption? Heavy [id number] Information not available 01/05/2023 What Is Your Code Status? Full Code Information not available 07/14/2023 In The 14 Days Before Symptom Onset, Have You Had Close Contact With A Laboratory-confir med COVID-19 While That Case Was Ill? No Information not available 07/14/2023 In The 14 Days Before Symptom Onset, Have You Had Close Contact With A Person Who Is Under Investigation For COVID-19 While That Person Was Ill? No Information not available 07/14/2023 Are You Deaf Or Do You Have Serious Difficulty Hearing? Yes Age Related Hearing Loss Information not available 07/14/2023 What Type Of Diet Are You Following? REGULAR Information not available 07/14/2023 What Is The Highest Grade Or Level Of School You Have Completed Or The Highest Degree You Have Received? [id number] Information not available 07/14/2023 When Did You Quit Smoking? 1-5yearssince lastcigarette [id number] Information not available 01/05/2023 Are There Any Guns Present In Your Home? No Information not available 07/14/2023 Where Do You Live? Apartment Information not available 07/14/2023 Do You Have A Medical Power Of Food Service Substitute? No Information not available 07/14/2023 What Is Your Relationship Status? [id number] Information not available 01/05/2023 Do You Use Your Seat Belt Or Car Seat Routinely? Yes Information not available 07/14/2023 Do You Have Smoke And Carbon Monoxide Detectors In Your Home? Yes Information not available 07/14/2023 Are You Passively Exposed To Smoke? No Information no t available 07/14/2023 Do You Use Sunscreen Routinely? Yes Information not available 07/14/2023 Has Tobacco Cessation Counseling Been Provided? No [id number] Information not available 01/05/2023 Have You Recently Traveled Abroad? No Information not available 07/14/2023 Do You Have Difficulty Walking Or Climbing Stairs? Yes Information not available 07/14/2023 Do You Have Any Dietary Restrictions? No Information not available 07/14/2023 Sex: Female Functional Status Question Answer Note LastModified by Organizat [employer] Details LastModified Time Do you use any illicit or recreational drugs? No [id number] Information not available 01/05/2023 Do you or have you ever used any other forms of tobacco or nicotine? No [id number] Information not available 01/05/2023 What is your level of alcohol consumption? None [id number] Information not available 01/05/2023 Are you currently employed? No retired [place] Information not available 07/14/2023 Do you have [...] Mental Status Question Answer Note LastModified by Organizat [employer] Details LastModified Time Do you feel stressed (tense, restless, nervous, or anxious, or unable to sleep at night)? [id number] anxiety and depression Information not available 07/14/2023 Do you have difficulty concentrating, remembering or making decisions? Yes Information not available 07/14/2023 Family History Relationship Description Onset Age of this Age Resolved Age Notes LastModified by Organization Details LastModified Time Father Malignant neoplasm of brain [id number] Not available 01/05/2023 22:43:33 Mother Chronic obstructive pulmonary disease [id number] Not available 01/05/2023 22:43:33 Medical History Condition Response OBESITY Y ANEMIA/BLOOD DISORDER Y HYPOTHYROIDISM Y KIDNEY DISEASE Y HAVE YOU BEEN HOSPITALIZED OR SEEN IN [facility] IN THE PAST YEAR ? Y HYPERTENSION Y HIGH CHOLESTEROL / HYPERLIPIDEMIA Y Gynecological HistoryNo gynecological history recorded. Obstetrics History GPAL:G 3 P 3 0 0 0 Type Value Full Term 3 Total 3 Past Encounters Encounter ID Performer Location Encounter Start Date Encounter Closed Date Diagnosis/Indication Diagnosis SNOMED-CT Code Diagnosis ICD10 Code Diagnosis Note [id number] MD ERIKA Peterson IGR[facility]_ DEFAULT_1 _1 , 07/23/2021 00:00:00 07/23/2021 16:41:16 [id number] MD BROOKE [facility] [place] [address] [place] [address] 09/21/2021 00:00:00 09/21/2021 15:39:35 [id number] MD ERIKA Peterson IGRATION_ DEFAULT_1 _1 , 01/21/2022 00:00:00 01/21/2022 15:21:48 [id number] MD ERIKA Peterson IGRATION_ DEFAULT_1 _1 , 04/29/2022 00:00:00 04/29/2022 15:22:35 [id number] [facility] _ATHENA_M IGRATION_ DEFAULT_1 _1 , 05/27/2022 00:00:00 05/27/2022 17:30:55 [id number] [facility] _ATHENA_M IGRATION_ DEFAULT_1 _1 , 06/24/2022 00:00:00 06/24/2022 22:01:51 [id number] Stephanie Morrissey MD Dee [facility] [place] [address] [place] [address] 10/15/2022 00:00:00 10/15/2022 21:47:35 [id number] MD BROOKE [facility] [place] [address] [place] [address] 12/17/2022 00:00:00 12/17/2022 13:58:24 [id number] MD BROOKE [facility] [place] [address] [place] [address] 03/17/2023 11:38:23 03/17/2023 12:30:34 Prediabetes [id number] R73.03 Patient actually well controlled DM- a1c [...] Recommende d she incorporat e natural insulin lunchroom operator s such as pears, apples, cinnamon, janie and sweet potatoes to help mobilize her endogenous insulin. Recommende d up to 150 minutes of moderate level activity/e xercise weekly. Continue on kerendia for proteinuri a. Repeat K in range and microalbum in trending downward. Obesity 871535456 E66.9 Recommende d GLP1 agonist therapy as she is having trouble at times with cravings of sweets and portion control. Discussed potentiall y reducing total carb intake to 120 grams daily into 4-5 small split meals with addition of healthy protein based snack at bedtime to help reduce putty and caulking supervisor hyperglyce sindhu. She has no hx of [...] meal of that day as tolerated. Hypothyroidism 11310615 E03.9 Will uptitrate unithroid to 100 mcg [...] and minerals and reduce inflammati on. Hypercortisolism 2030140 [address] adrenal completed [...] she chooses to go outside of the [facility] to obtain labwork she was [...] in her case. She voiced understand ing. [id number] Stephanie Morrissey MD [facility] [place] [address] [place] [address] 07/14/2023 11:51:07 07/14/2023 12:50:55 Well controlled type 2 diabetes mellitus [id number] E11.9 a1c of 5.9% in range- no hypoglycem ia- she is tolerating therapy well. Will uptitrate ozempic to 2 mg once weekly and continue low dose farxiga 5 mg daily. Off metformin due to CKD. Discussed carb counting and how to read food labels. Recommende d patient to utilize the diabetesfo [employer] from the ADA website to help with food preparatio n as this presents ideal carb content per meal so this will make carb counting much easier for patient. Recommende d she incorporat e natural insulin lunchroom operator s such as pears, apples, cinnamon, janie and sweet potatoes to help mobilize her endogenous insulin. Recommende d up to 150 minutes of moderate level activity/e xercise weekly. Hypothyroidism 71016354 E03.9 FT4 in range - continue unithroid [...] and minerals and reduce inflammati on. Hypercortisolism 7028582 [address] adrenal completed [...] None Recorded Advance Directives Directive N: Payers Insurance Date Sequence Insurance Name Policy Number Policy Pena Covered Member ID Pena Member ID Guarantor Name 07/18/2023 1 [employer] (MEDICARE REPLACEMENT/A DVANTAGE - PPO) [id number] Jacy Omer Gene [id number] Jacy [place] 07/18/2023 2 MEDICAID-ID: [facility] Jacy Ward Gene [id number] Jacy Ed Gene Notes Date Note Type Note Provider Name [...] started kerendia for proteinuria. Patient sent to [facility] and per [...] 26 ml/minLFT normal Stephanie Morrissey MD [address] [facility], [facility] [address], [place], [address], [facility] [employer] 03/17/2023 14:04:12 07/14/2023 text/html 77 yo female [...] has adrenal hyperplasia and failed DST in 3/22-has low dheas and normal acth as this [...] ng/dlFt3 of 3.4 pg/mLa1c of 5.9%K 4.8 mmol/engineering technician normalglucose 99 mg/dLCr 1.83 mg/dL with GFR 27 ml/minLFT normal Stephanie Morrissey MD [address] [facility], [facility] [address], [place], [address], [facility] [employer] [facility] [employer] 07/14/2023 13:34:56 OBGyn Episode No OBEpisode recorded.
--- OUTSIDE RECORDS SUMMARY | 2025-05-08 13:12 | XMS_ITS | Encounter Summary ---
Author Organization [facility] Address [address] [place] [address] Phone Care Team Providers Care Prefitter Name Role Phone Jn Velásquez MD Primary Care Provider [phone] Waqas De Leon MD Unavailable [phone] Waqas De Leon MD Unavailable [phone] Cortney Corona MD Unavailable [phone] Stephanie Morrissey MD Primary Care Provider [phone] Jn Velásquez MD Primary Care Provider [phone] Miscellaneous, Not In File Unavailable Unava ilable Daniel Go MD Unavailable [phone] James Cifuentes MD Unavailable [phone] Encounter Details Date Type Department Care Team [...] often do you attend chur ch or jew services? Never 05/04/2022 Do you belong to any clubs o r organizations such as latter day groups, unions, fraternal or athletic groups, or [...] place to sleep or slept in a retirement (including now)? No 05/04/2022 Comments Unknown Sex and Gender Information Value Date Recorded Sex Assigned at Not on file Legal Sex Female 7:23 PM [employer] Gender Identity Not on file Sexual Orientation [...] documented as of this encounter Care Teams Prefitter Relationship Specialty Start Date End Date Jn [...] Daniel Go MD [address] [place] [address] Consulting Physician Interventional Cardiology 05/31/23 [place] [address] [facility] [address] [place] [address] Consulting Physician Pulmonary Disease 05/31/23 documented as of this encounter
--- OUTSIDE RECORDS SUMMARY | 2025-05-08 13:12 | XMS_ITS | Referral Summary ---
Author Organization [facility] Address [address] [place] [address] Care Team Providers Care Integrity Manager Name Role Phone Waqas De Leon MD Unavailable [phone] Waqas De Leon MD Unavailable [phone] Cortney Corona MD Unavailable Jn Velásquez MD Primary Care Provider [phone] Miscellaneous, Not In File Unavailable Unava ilDaniel Mckeon MD Unavailable [phone] James Cifuentes MD Unavailable Encounters Date Type Department Care Team Description 04/10/2025 2:30 PM CDT Office Visit [facility] Rheumatology [facility] Medicine 5th [place] [address] [place] [address] Bilateral shoulder pain, unspecified chronicity (Primary Dx) 03/22/2025 12:29 AM CDT - 03/22/2025 1:05 AM CDT Emergency [facility] Emergency Department [address] [place] [id number] Discharge Disposition: Left without being seen from Last 3 Months Allergies Active Allergy [...] AM CDT): 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 Follow-up 2-3 days after discharge, to consider restarting Mifepristone. Also to monitor Synthroid dose and thyroid studies - DC'd with 88mcg synthroid. 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 Fitch at [facility] on 06/28 Acute pulmonary edema 05/18/20222021 Assessment [...] on room air- transition to torsemide per horseshoer, add low dose potassium supplement. Continue to [...] often do you attend chur ch or christianity services? Never 05/31/2023 Do you belong to any clubs o r organizations such as bahai groups, unions, fraternal or athletic groups, or [...] place to sleep or slept in a skilled nursing (including now)? No 05/31/2023 Personal Safety Answer Date Recorded Have you ever been in or are you currently in a harmful physical or emotional relationship or is someone making you feel afraid or unsafe? 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 SN: SN Report ID: [id number] Reading Location: [id number] Procedure Note Dorie Kenney MD - 03/21/2025 EXAM DESCRIPTION: XR CHEST 1 VIEW REASON FOR STUDY: chest pain Patient with SOB for several months. Seen and discharged at [facility] TECHNIQUE: Single radiographic view of [...] by Dorie Kenney M.D. SN: Report ID: [id number] Reading Location: [place] [address] Misti Tobar NP IMG XR PROCEDURES Final Result * ECG 12 lead (03/21/2025 10:51 PM CDT) Ventricular Rate EKG/Min 101 BPM [facility] Atrial Rate [address] [facility] AL-Interval (MSEC) [address] [facility] QRS-Interval (MSEC) [address] [facility] QT-Interval (MSEC) [address] [facility] QTc [address] [facility] P [place] [address] [facility] R [place] -[address] [facility] T [place] [address] [facility] Diagnosis Sinus tachycardia Left axis deviation Left ventricular hypertrophy with repolarization abnormality Cannot rule out Septal infarct , age undetermined Possible Lateral infarct , age undetermined Abnormal ECG No previous ECGs available Confirmed by GIOVANNI GAMING M.D. ([id number]) on 03/22/2025 5:48:[address] [facility] 03/21/2025 10:5 1 PM CDT 03/22/2025 5:48 PM CDT Misti Tobar NP ECG ORDERABLES Final Result [facility] * (ABNORMAL) Troponin T high-sensitivity series (baseline, 2hr, 4hr, 6hr) (03/21/2025 10:49 PM CDT) Trop T hs 27(H) <=14 ng/L Comment: Interpretive Data For further hscTnT resources including the diagnostic algorithm and an aid in interpretation, copy and paste this link: https://nrl.testcatalog.org/show/hsTrop Current Interpretive Data last revised 2020. Testing performed by: [facility], [address] [place] [address]., [id number] Blood 03/21/2025 10:4 9 PM CDT 03/21/2025 10:57 PM CDT Misti Tobar LAB BLOOD ORDERABLES Final Resul t Performing Organization Address [facility] Co de Phone Number [facility] [address] [place] [address] * (ABNORMAL) eGFR (03/21/2025 10:49 PM CDT) [...] was last reviewed 2021. Testing performed by: [facility], [address] [place] [address]., [id number] Blood 03/21/2025 10:4 9 PM CDT 03/21/2025 10:57 PM CDT Misti Tobar NP LAB BLOOD ORDERABLES Final Resul t Performing Organization Address [facility] Co de Phone Number [place] [address] [facility] [place] [address] * (ABNORMAL) Differential, auto (03/21/2025 10:49 PM CDT) Neutrophil abs 10.23(H) 1.50 - 6.50 K/cumm Comment:Testing performed by : [address] [address] Imm gran abs 0.13(H) 0.00 - 0.10 K/cumm [facility] Comment:Testing performed by : [address] [address] Lymphocyte abs 0.65(L) 0.80 - 3.30 K/cumm [facility] Comment:Testing performed by : [address] [address] Monocyte abs 0.07(L) 0.20 - 0.80 K/cumm [facility] Comment:Testing performed by : [address] [address] Eosinophil abs 0.00 0.00 - 0.50 K/cumm [facility] Comment:Testing performed by : [address] [address] Basophil abs 0.03 0.00 - 0.10 K/cumm [facility] Comment:Testing performed by : [address] [address] Neutrophil pct 92.0 % [facility] Comment: Interpretive Data Percent cell count reference ranges are not reported, since discordance with absolute values may lead to misinterpretation of CBC data. Current Interpretive Data was last revised on 2018. Testing performed by: [address] [address] Imm gran pct 1.2 % [facility] Comment: Interpretive Data Percent cell count reference ranges are not reported, since discordance with absolute values may lead to misinterpretation of CBC data. Current Interpretive Data was last revised on 2018. Testing performed by: [address] [address] Lymphocyte pct 5.9 % [facility] Comment: Interpretive Data Percent cell count reference ranges are not reported, since discordance with absolute values may lead to misinterpretation of CBC data. Current Interpretive Data was last revised on 2018. Testing performed by: [address] [address] Monocyte pct 0.6 % [facility] Comment: Interpretive Data Percent cell count reference ranges are not reported, since discordance with absolute values may lead to misinterpretation of CBC data. Current Interpretive Data was last revised on 2018. Testing performed by: [address] [address] Eosinophil pct 0.0 % [facility] Comment: Interpretive Data Percent cell count reference ranges are not reported, since discordance with absolute values may lead to misinterpretation of CBC data. Current Interpretive Data was last revised on 2018. Testing performed by: [address] [address] Basophil pct 0.3 % [facility] Comment: Interpretive Data Percent cell count reference ranges are not reported, since discordance with absolute values may lead to misinterpretation of CBC data. Current Interpretive Data was last revised on 2018. Testing performed by: [address] [address] Blood 03/21/2025 10:4 9 PM CDT 03/21/2025 10:57 PM CDT us Misti Tobar NP LAB BLOOD ORDERABLES Final Resul t [facility] [address] [facility] [place] [address] * (ABNORMAL) CBC with auto differential (03/21/2025 10:49 PM CDT) WBC 11.11(H) 3.80 - 9.90 K/cumm Comment:Testing performed by : [address] [address] Hgb 13.7 11.9 - 15.5 g/dL [facility] Comment:Testing performed by : [address] [address] Hct 42.8 35.6 - 45.5 % [facility] Comment:Testing performed by : [address] [place]., [address] Plt 230 150 - 400 K/cumm [facility] Comment:Testing performed by : [address] [address] MPV 10.4 9.1 - 12.3 fL [facility] Comment:Testing performed by : [address] [address] RBC 5.12 3.90 - 5.20 M/cumm [facility] Comment:Testing performed by : [address] [address] MCV 83.6 81.3 - 96.4 fL [facility] Comment:Testing performed by : [address] [address] MCH 26.8(L) 27.1 - 33.3 pg [facility] Comment:Testing performed by : [address] [address] MCHC 32.0(L) 32.3 - 35.7 g/dL [facility] Comment:Testing performed by : [address] [address] RDW CV 15.2(H) 11.1 - 14.9 % [facility] Comment:Testing performed by : [address] [address] RDW SD 46.4 35.7 - 48.1 fL [facility] Comment:Testing performed by : [address] [address] NRBC abs 0.00 0.00 - 0.01 K/cumm [facility] Comment:Testing performed by : [address] [address] Blood Venous blood specimen / Unknown 03/21/2025 10:49 PM CDT 03/21/2025 10:57 PM CDT us Misti Tobar NP LAB BLOOD ORDERABLES Final Resul t [facility] [address] Department of Laboratories [place], [place] [id number] * (ABNORMAL) Comprehensive metabolic panel (03/21/2025 10:49 PM CDT) Sodium 142 135 - 145 mmol/L Comment:Testing performed by : [address] [address] Potassium, pl 4.3 3.3 - 4.9 mmol/L [facility] Comment:Testing performed by : [address] [address] Chloride 103 97 - 110 mmol/L [facility] Comment:Testing performed by : [address] [address] CO2 25 22 - 32 mmol/L [facility] Comment:Testing performed by : [address] [address] Anion gap 14 2 - 15 mmol/L [facility] Comment:Testing performed by : [address], [place]., [address] BUN 27(H) 6 - 25 mg/dL [facility] Comment:Testing performed by : [address], [place]., [address] Creatinine 1.94(H) 0.60 - 1.10 mg/dL [facility] Comment:Testing performed by : [address] [address] Glucose 178 70 - 199 mg/dL [facility] Comment: Interpretive Data Fasting glucose >/= 126 [...] was last revised 2022. Testing performed by: [address] [address] Calcium 9.6 8.5 - 10.3 mg/dL [facility] Comment:Testing performed by : [address] [address] Bilirubin, total 0.5 0.1 - 1.2 mg/dL [facility] Comment:Testing performed by : [address] [address] Protein, pl 7.5 6.5 - 8.5 g/dL [facility] Comment:Testing performed by : [address] [address] Albumin 4.1 3.5 - 5.0 g/dL [facility] Comment:Testing performed by : [address] [address] Alk phos 69 40 - 130 Units/L [facility] Comment:Testing performed by : [address] [address] ALT 10 7 - 45 Units/L [facility] Comment:Testing performed by : [address] [address] AST 26 10 - 45 Units/L [facility] Comment:Testing performed by : [address] [address] Blood 03/21/2025 10:4 9 PM CDT 03/21/2025 10:57 PM CDT Misti Tobar NP LAB BLOOD ORDERABLES Final Resul t [facility] [address] [facility] Department of Laboratories [place], [place] [id number] * Hepatitis panel, acute Blood (08/10/2024 12:01 PM CDT) Hep A IgM Nonreactive Nonreactive Hep B core IgM Nonreactive Nonreactive [facility] Hep C Ab Nonreactive Nonreactive [facility] Comment:Antibodies to HCV no t detected. Does NOT exclude the possibility of recent exposure to HCV. Current interpretive data was last revised on 22 HepBsAg Nonreactive Nonreactive [facility] Blood 08/10/2024 12:0 1 PM CDT 08/10/2024 2:23 PM CDT Zarina Carroll MD LAB MICROBIOLOGY - GENERAL ORDER TATO Final Result [facility] [place] [address] from Last 3 Months or Most Recently Relevant to Health Maintenance Insurance [facility] MEDICARE ADVANTAGE IDPA [facility] MEDICARE ADVANTAGE IDPA [facility] MEDIC[facility] ADVANTAGE IDPA Advance Directives For more information, please contact: [phone] * Full Code (Latest Code Status on File) Date Activated Date Inactivated Comments 05/30/2023 2:42 AM 06/01/2023 6:25 PM * Full Code Date Activated Date Inactivated Comments 05/30/2023 12:31 AM 05/30/2023 2:42 AM * Full Code Date Activated Date Inactivated Comments 05/05/2022 2:33 PM 05/14/2022 7:09 PM Care Teams Integrity Manager Relationship Specialty Start Date End Date Jn Velásquez MD PCP - General Family Medicine 05/29/23 Waqas De Leon MD Internal Medicine 11/20/21 Waqas De Leon MD Internal Medicine 06/06/19 Cortney Corona MD Referring Physician Surgery 05/14/22 Miscellaneous, Not In File 05/31/23 Daniel Go MD [address] [place] [address] Consulting Physician Interventional Cardiology 05/31/23 [place] [address] [facility] [address] [place] [address] Consulting Physician Pulmonary Disease 05/31/23
--- OUTSIDE RECORDS SUMMARY | 2025-05-08 13:12 | XMS_ITS | Clinical Summary ---
Author Organization [facility] on Address [address] [place] [address] SHARI Carmen [address] Phone Care Team Providers Care Life Enrichment Specialist Name Role Phone Unavailable Primary Care Provider Unavailabl e Encounters Date Type Department Care Team Description 04/24/2025 External Device Data ST[facility] ABSTRACTION Provider, Abstract 04/23/2025 External Device Data ST[facility] ABSTRACTION Provider, Abstract 03/28/2025 External Device Data ST[facility] ABSTRACTION Provider, Abstract 03/27/2025 External Device Data ST[facility] ABSTRACTION Provider, Abstract 03/26/2025 External Device Data ST[facility] ABSTRACTION Provider, Abstract 03/12/2025 External Device Data ST[facility] ABSTRACTION Provider, [...] 1-dose 75+ series) 2022 INFLUENZA VACCINE (#1) 2025 Insurance [place] [id number]
--- OUTSIDE RECORDS SUMMARY | 2025-05-08 13:12 | XMS_ITS | Clinical Summary ---
Author Organization [facility] Address [facility] [place] [address] Care Team Providers Care Primary Care Md Name Role Phone Unavailable Primary Care Provider [...]
--- OUTSIDE RECORDS SUMMARY | 2025-05-08 13:12 | XMS_ITS | Encounter Summary ---
Author Organization [facility] [employer] [facility] Address [address] [place] [address] Phone Care Team Providers Care High School Special Education Teacher Name Role Phone Jn Velásquez MD Primary Care Provider [phone] Waqas De Leon MD Unavailable [phone] Waqas De Leon MD Unavailable [phone] Cortney Corona MD Unavailable [phone] Stephanie Morrissey MD Primary Care Provider [phone] Jn Velásquez MD Primary Care Provider [phone] Miscellaneous, Not In File Unavailable Unava ilDaniel Mckeon MD Unavailable [phone] James Cifuentes MD Unavailable [phone] Encounter Details Date Type Department Care Team [...] on file 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 [address] [place] [address] Consulting Physician Pulmonary Disease 05/31/23 documented as of this encounter
[2025-05-08 13:20] VITALS: PULSE 84; O2SAT 92
--- NOTE | 2025-05-08 13:47 | HOMEO2EVAL ---
Evaluation was performed at [facility] Home Oxygen Evaluation RC: Home Oxygen (O2) Evaluation Start: 05/08/25 13:29 Freq: Status: Active Protocol: RPE Activity Type Activity Date Activity User E-sign Co-sign Detail Recorded Client Recorded Date Recorded By Document 05/08/25 12:29 DJO [email or web address] 05/08/25 13:47 DJO Document 05/08/25 13:00 DJO [email or web address] 05/08/25 13:47 DJO Document 05/08/25 13:05 [email or web address] [email or web address] 05/08/25 13:47 DJO Document 05/08/25 13:10 [email or web address] [email or web address] 05/08/25 13:47 DJO Document 05/08/25 13:20 [email or web address] [email or web address] 05/08/25 13:47 DJO 05/08/25 05/08/25 05/08/25 12:29 13:00 13:05 Home O2 Evaluation [Oxygen] -Test Phase Resting Exercise Exercise -Oxygen Delivery Room Air Room Air Nasal Cannula -Oxygen Flow Rate (L/min) 1 [Pulse Oximetry] -Pulse Oximetry (90-100 %) 92 86 L 88 L [Pulse Rate] -Pulse Rate (60-100 beats/min) 80 90 94 [Evaluation] -Activity Tolerance [Comments] -Home Oxygen Evaluation Comments [Charges] -Evaluation Charges O2 Evaluation by Pulmonary 05/08/25 05/08/25 13:10 13:20 Home O2 Evaluation [Oxygen] -Test Phase Exercise Resting -Oxygen Delivery Nasal Cannula Room Air -Oxygen Flow Rate (L/min) 2 [Pulse Oximetry] -Pulse Oximetry (90-100 %) 90 92 [Pulse Rate] -Pulse Rate (60-100 beats/min) 100 84 [Evaluation] -Activity Tolerance Poor [Comments] -Home Oxygen Evaluation Comments PT NON AMBULATORY CHECKED SAO2 WHILE TRANSFERRING FROM WHEELCHAIR [Charges] -Evaluation Charges
--- NOTE | 2025-05-28 13:40 | P.PCNPFT_ITS ---
PFT Procedure Performed PFT Procedure Performed Spirometry with Pre/Post Bronchodilator Plethysmography (Lung Vol) Diffusing Cap (DLCO) Flow Vol Loop PFT Interpretation DOS:05/08/2025 REQUESTING: Samuel Portillo APRN REASON FOR TESTING: Shortness of breath PULMONARY FUNCTION TESTS -F-t-v-u-l-t-s- -a-r-e- -f-b-x-i-a-b-l-e- -a-n-d- -r-c-q-m-x-o-z-d-o-b-l-e-.- -S-a-l-u-p-b-z-r-i-l-i-t-y- -o-f- -e-d-l-i-l-m-e-t-r-y- -F-E-V-1- -g-b-x-e-u-v-e-r- -p-r-e- -a-n-d- -p-o-s-t- -a-m-n-i-b-i-k-r-j-l-a-t-o-r- -i-s- -G-r-a-d-e- -A-.- -G-L-I- -2-0-1-2- -l-h-b-y-u-q-n-c-e- -v-c-b-o-j-g-o-n-s- -w-e-r-e- -u-s-e-d-.- -Z-n-l-g-v-t-e-t-r-y-:- -T-h-e- -c-t-l----w-i-a-c-x-j-z-s-f-l-a-t-o-r- -F-E-V-1- -i-s-1-.-2-6- -L- -6-8-%-.- - - -T-h-e- -e-u-j----l-h-t-p-l-u-q-i-q-l-a-t-o-r- -F-V-C- -i-s- -1-.-8-0- -L-,- -7-5-%-.- - - -T-h-e- -F-E-V-1-/-F-V-C- -r-a-t-i-o- -i-s- -7-0-%-.- -A-f-t-e-r- -o-q-s-f-z-r-b-u-l-l-a-t-o-r-,- -t-h-e- -F-E-V-1- -i-s- -1-.-4-6- -L-,- -7-9-%-,- -+- -1-6-%-.- -T-h-e- -p-o-s-t--- -k-s-d-z-x-c-a-k-z-l-a-t-o-r- -F-V-C- -i-s- -1-.-9-7- -L-,- -8-3-%-.- -+-1-0-%-.- -T-h-e- -h-g-g-h-v-c-x-r-t-h-e-u-i--l-a-t-o-r- -F-E-V-1-/-F-V-C- -r-a-t-i-o- -i-s-7-4-%-.- -L-u-n-g- -f-m-s-u-m-e-s-:- -T-h-e- -t-o-t-a-l- -l-u-n-g- -h-r-h-a-c-i-t-y- -i-s-3-.-1-3- -L-,- -6-8-%-,- -r-x-d-s-w-h-s-e-d-.- -T-h-e- -u-s-q-i-d-u-a-l- -j-w-d-u-m-e- -i-s-1-.-2-5- -L-,- -5-8-%-,- -q-t-q-u-c-e-d-.- -T-h-e- -R-V-/-T-L-C- -i-s- -4-0-%-.- - - -F-p-v-w-a-y- -t-x-m-p-z-t-a-n-c-e- -i-s- -z-u-l-m-a-l-.- -M-v-n-d-i-b-i-o-n-:- -D--L-C-O- -i-s- -1-2-.-6-,- -6-7-%-.- -T-h-e- -D-L-C-O-/-V-A- -i-s- -4-.-3-8-,- -1-0-1-%-.- -T-h-e-s-e- -a-r-e- -w-l-m-m-a-l- -i-n-j-u-e-s-.- -F-l-o-w- -h-d-t-u-m-e- -l-o-o-p-:- -T-h-e- -f-l-o-w- -d-w-e-u-m-e- -l-o-o-p- -i-s- -w-r-r-j-e-l-t-e-n-t- -w-i-t-h- -a- -u-w-p-k-w-a-c-t-i-v-e- -r-h-k-t-e-r-n-.- - - -M-R-W-Y-F-V-S-I-O-N-:- - - -T-h-i-s- -s-t-u-d-y- -s-h-o-w-s- -a- -m-i-l-d- -z-f-c-x-z-a-c--t-i-v-e- -l-o-o-t-e-r-n- -w-i-t-h- -a- -m-i-l-d- -u-k-e-b-h-t-s-e-d- -i-n- -l-u-n-g- -n-z-b-u-m-e-s-.- -T-h-e- -u-l-o-i-e-n-t- -h-a-s- -a- -m-i-l-d- -b-i-r-r-e-a-s-e- -i-n- -F-E-V-1- -p-r-e--- -v-l-f-t-t-b-n-i-o-l-a-t-o-r-,- -a-n-d- -a- -k-b-d-u-c-x-i-c-a-n-t- -x-c-t-p-o-n-s-e- -t-o- -g-g-v-v-e-l-k-s-g-l-a-t-o-r- -h-s-b-u-n-i-p-x-p-a-t-i-o-n-.- -E-h-p-h-a-q-i-o-n- -i-s- -p-p-r-m-a-l-.- -G-m-x-p--a-r-e-d- -t-o- -m-f-f-t-i-n-g- -o-n- -6-/-3-/-2-0-2-4-,- -k-w-v-u-e-s- -a-r-e- -v-h-o-i-l-a-r-.- -M-p-v-b-a-r-a- -F-o-n-e-r-,- -M-D-
--- NOTE | 2025-05-28 13:40 | WPDPFTINT ---
PFT Procedure Performed PFT Procedure Performed Spirometry with Pre/Post Bronchodilator Plethysmography (Lung Vol) Diffusing Cap (DLCO) Flow Vol Loop PFT Interpretation DOS:05/08/2025 REQUESTING: Samuel Portillo APRN REASON FOR TESTING: Shortness of breath PULMONARY FUNCTION TESTS <del>Results</del> <del>are</del> <del>reliable</del> <del>and</del> <del>reproducible.</del> <del>Repeatability</del> <del>of</del> <del>spirometry</del> <del>FEV1</del> <del>maneuver</del> <del>pre</del> <del>and</del> <del>post</del> <del>bronchodilator</del> <del>is</del> <del>Grade</del> <del>A.</del> <del>GLI</del> <del>2011</del> <del>reference</del> <del>equations</del> <del>were</del> <del>used.</del> <del>Spirometry:</del> <del>The</del> <del>pre-bronchodilator</del> <del>FEV1</del> <del>is1.26</del> <del>L</del> <del>68%.</del> <del>The</del> <del>pre-bronchodilator</del> <del>FVC</del> <del>is</del> <del>1.80</del> <del>L,</del> <del>75%.</del> <del>The</del> <del>FEV1/FVC</del> <del>ratio</del> <del>is</del> <del>70%.</del> <del>After</del> <del>bronchodilator,</del> <del>the</del> <del>FEV1</del> <del>is</del> <del>1.46</del> <del>L,</del> <del>79%,</del> <del>+</del> <del>16%.</del> <del>The</del> <del>post-bronchodilator</del> <del>FVC</del> <del>is</del> <del>1.97</del> <del>L,</del> <del>83%.</del> <del>+10%.</del> <del>The</del> <del>postbronchodilator</del> <del>FEV1/FVC</del> <del>ratio</del> <del>is74%.</del> <del>Lung</del> <del>volumes:</del> <del>The</del> <del>total</del> <del>lung</del> <del>capacity</del> <del>is3.13</del> <del>L,</del> <del>68%,</del> <del>decreased.</del> <del>The</del> <del>residual</del> <del>volume</del> <del>is1.25</del> <del>L,</del> <del>58%,</del> <del>reduced.</del> <del>The</del> <del>RV/TLC</del> <del>is</del> <del>40%.</del> <del>Airway</del> <del>resistance</del> <del>is</del> <del>normal.</del> <del>Diffusion:</del> <del>DLCO</del> <del>is</del> <del>12.6,</del> <del>67%.</del> <del>The</del> <del>DLCO/VA</del> <del>is</del> <del>4.38,</del> <del>101%.</del> <del>These</del> <del>are</del> <del>normal</del> <del>values.</del> <del>Flow</del> <del>volume</del> <del>loop:</del> <del>The</del> <del>flow</del> <del>volume</del> <del>loop</del> <del>is</del> <del>consistent</del> <del>with</del> <del>a</del> <del>restrictive</del> <del>pattern.</del> <del>IMPRESSION:</del> <del>This</del> <del>study</del> <del>shows</del> <del>a</del> <del>mild</del> <del>restrictive</del> <del>pattern</del> <del>with</del> <del>a</del> <del>mild</del> <del>decreased</del> <del>in</del> <del>lung</del> <del>volumes.</del> <del>The</del> <del>patient</del> <del>has</del> <del>a</del> <del>mild</del> <del>decrease</del> <del>in</del> <del>FEV1</del> <del>pre-bronchodilator,</del> <del>and</del> <del>a</del> <del>significant</del> <del>response</del> <del>to</del> <del>bronchodilator</del> <del>administration.</del> <del>Diffusion</del> <del>is</del> <del>normal.</del> <del>Compared</del> <del>to</del> <del>testing</del> <del>on</del> <del>04/09/2024,</del> <del>values</del> <del>are</del> <del>similar.</del> <del>Gemma</del> <del>Dick,</del> <del>MD</del>
--- NOTE | 2025-06-14 16:04 | WPDPFTINT ---
PFT Procedure Performed PFT Procedure Performed Spirometry with Pre/Post Bronchodilator Plethysmography (Lung Vol) Diffusing Cap (DLCO) Flow Vol Loop PFT Interpretation This is a pulmonary function test with pre and post-bronchodilator spirometry, plethysmography and diffusing capacity. The test was performed and results interpreted in accordance with the 2019 and 2005 ATS/ERS Task Force guidelines respectively using the Global Lung Function Initiative-2012 reference equations. Patient demonstrated good effort and cooperation. Reproducibility criteria were met. The quality of the pre bronchodilator spirometry maneuver was Grade A and post bronchodilator spirometry maneuver was Grade A. Findings: Spirometry: The contour the inspiratory and expiratory flow tracing are normal. The pre bronchodilator FVC is 1.47 L, 60% predicted. The pre bronchodilator FEV1 is 0.94 L, 50% predicted. The pre bronchodilator FEV1: FVC ratio 64%. The post bronchodilator FVC is 1.49 L, representing a 2% increase. The post bronchodilator FEV1 is 1.08 L, representing 140 mL increase which corresponds to a 15% increase. The post bronchodilator FEV1: FVC ratio 72%. Plethysmography: The total lung capacity is 3.03 L, 64% predicted. The functional residual capacity is 1.58 L, 58% predicted. The residual volume is 1.51 L, 68% predicted. Diffusing capacity: The diffusing capacity unadjusted for hemoglobin and carboxyhemoglobin is 10.9, 58% predicted. The diffusing capacity adjusted for alveolar volume is 4.52, 106% predicted. In comparison to previous pulmonary function testing on 04/09/2024 the post bronchodilator FVC has decreased from 1.97 L to 1.49 L. The post bronchodilator FEV1 is decreased from 1.46 L to 1.08 L. The total lung capacity is unchanged from 3.13 L to 3.03 L. The functional residual capacity has increased from 1.28 L to 1.58 L. The residual volume has increased from 1.25 L to 1.51 L. The diffusing capacity unadjusted for hemoglobin and carboxyhemoglobin is unchanged from 12.6 to 10.9. The diffusing capacity adjusted for alveolar volume is unchanged from 4.38 to 4.52. 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 The spirometry is normal without evidence of an obstructive abnormality. There is no significant improvement after inhaling a single dose of albuterol as the absolute increase in FEV1 was less than 200 mL. The diffusing capacity unadjusted for hemoglobin and carboxyhemoglobin is moderately decreased and normalizes when adjusted for alveolar volume. in comparison to previous pulmonary function testing on 04/09/2024, there has been a greater than anticipated time dependent decrease in the FVC and FEV1. there has been a greater than anticipated time dependent increase in the functional residual capacity and residual volume with no significant change in the total lung capacity or diffusing capacity. Clinical correlation is recommended.
== END 2025-05-08 13:03 | disposition home or self-care (01) ==
LOC: ANHPFT 13:06
PROVIDERS: PCP Family Medicine; Visit Provider Internal Medicine Pulmonary Disease
DX: J44.1 Chronic obstructive pulmonary disease with (acute) exacerbation (principal)
CPT/HCPCS: 94060; 94618; 94726; 94729

== ENCOUNTER 2025-06-03 11:36 | Outpatient (CLI) | payer MEDICARE, MEDICAID, SELFPAY ==
--- NOTE | ~2025-06-03 | MM_ITS ---
EXAMINATION: MM screening [facility] w christina HISTORY: Screening TECHNIQUE: Craniocaudal and mediolateral oblique 3-D tomosynthesis images were obtained and synthetic 2-D images were generated. CAD analysis was submitted and interpreted. COMPARISON: Comparison to multiple prior studies sequentially, with oldest reviewed study dated 05/31. BREAST PARENCHYMAL COMPOSITION: Not dense: There are scattered areas of fibroglandular density. FINDINGS: There is no evidence of suspicious mass, calcification, or architectural distortion to sugg est malignancy in either breast. There has been no suspicious interval change. IMPRESSION: 1. No mammographic evidence of malignancy. 2. Recommend routine screening mammography in one year. BI-RADS Category 1: Negative Reviewed, dictated and finalized at location B.
== END 2025-06-03 11:37 | disposition home or self-care (01) ==
LOC: MICIMG 11:37
PROVIDERS: PCP Family Medicine; Visit Provider Family Medicine
DX: Z12.31 Encounter for screening mammogram for malignant neoplasm of breast (principal)
CPT/HCPCS: 77063; 77067

== ENCOUNTER 2025-07-09 15:53 | Outpatient (CLI) | payer MEDICARE, MEDICAID, SELFPAY ==
--- NOTE | ~2025-07-09 | US_ITS ---
US soft tissue head and neck 07/09/2025 16:16 Indication: Personal history of malignant neoplasm of the thyroid gland. Status post complete thyroidectomy. Procedure: High-resolution ultrasound of the neck Comparison: Ultrasound dated 01/31/2025 Findings: Thyroid bed is normal without discrete mass. There is a 7 mm lymph node in the left lateral neck with normal fatty hilum. No lymphadenopathy. Impression: 1: Unremarkable ultrasound of the thyroid bed status post thyroidectomy. Reviewed, dictated and finalized at location O. Impression: 1: Unremarkable ultrasound of the thyroid bed status post thyroidectomy.
== END 2025-07-09 15:54 | disposition home or self-care (01) ==
PROVIDERS: PCP Family Medicine; Visit Provider Internal Medicine
DX: E66.9 Obesity, unspecified (principal); Z85.850 Personal history of malignant neoplasm of thyroid; I10 Essential (primary) hypertension; E11.9 Type 2 diabetes mellitus without complications; E03.9 Hypothyroidism, unspecified
CPT/HCPCS: 76536

== ENCOUNTER 2025-07-15 14:10 | Outpatient (CLI) | payer MEDICARE, MEDICAID, SELFPAY ==
--- OUTSIDE RECORDS SUMMARY | 2025-06-26 09:15 | XMS_ITS ---
Author Organization [facility] [employer] Address [facility] [address] [address] Care Team Providers Care Technology Lead Name Role Phone Sandie Irwin [phone] REASON FOR VISIT follow-up Social History Sex Assigned At : Social History Observation Description Sex Assigned At Female Encounters Encounter Location Date Provider Diagnosis [facility] [employer] [place] [id number] [facility] [address] [address] 06/26/2025 Sandie Irwin Plan Of Treatment Next Appt Details Provider Name:Sandie chino, 07/22/2025 02:15:00 PM, [address], [facility] [address], [place], [address], Progress Notes * JESU HARLEY LDOB: [birth year] (79 yo F)Acc No.[id number]:06/26/2025 Patient: Magnus CHURCHILL JESU Omer Provider: CHRISTIANO ROWELL :1945 A ge:79 Y S ex:Female Date:06/26/2025 Address:[address], [facility] Subjective: * Chief Complaints: * F ollow-up * Electronic signature of CHRISTIANO Hurley on 07/15/2025 at 02:15 PM CDT Sign off status: Pending * Provider: CHRISTIANO ROWELL Date: 0 06/26/2025 Generated for Александр wooten/Stevie/Jose Mitting on: 0 07/15/2025 02:15 PM CDT
--- NOTE | ~2025-07-15 | CT_ITS ---
EXAMINATION: CT abdomen wo con DATE: 07/15/2025 15:04 INDICATION: Benign neoplasm of unspecified adrenal gland. TECHNIQUE: Computed tomography (CT) of the abdomen was performed without intravenous contrast. Automated exposure control and iterative reconstruction technique were employed. The dose-length product was 1096.65 mGy-cm. COMPARISON: CT abdomen and pelvis 03/05/2024 FINDINGS: The visualized portions of the lung bases demonstrate mild atelectasis. No pleural effusion. The heart size is normal. There are coronary artery calcifications. No pericardial effusion. There are calcifications of the aortic valve. There is a 10 mm cyst in the liver. There are changes of chol ecystectomy. The spleen, pancreas, and adrenal glands are normal. There are cysts in the kidneys measuring up to 2.6 cm on the right. There are multiple masses in each kidney measuring soft tissue attenuation measuring up to 2.7 m on the left. There are hemorrhagic cysts in left kidney. There are no dilated loops of bowel. There are no pathologically enlarged lymph nodes. There is no free intraperitoneal fluid. There is mild thoracic spondylosis and moderate lumbar spondylosis. IMPRESSION: 1. Normal adrenal glands. 2. Masses in the kidneys measuring up to 2.8 cm on the left, stable from 03/05/2024. These findings are most likely hemorrhagic cysts, but neoplasm cannot be excluded. Consider abdomen MRI without and with contrast. Reviewed, dictated and finalized at location E. IMPRESSION: 1. Normal adrenal glands. 2. Masses in the kidneys measuring up to 2.8 cm on the left, stable from 024. These findings are most likely hemorrhagic cysts, but neoplasm cannot be e xcluded. Consider abdomen MRI without and with contrast.
--- OUTSIDE RECORDS SUMMARY | 2025-07-15 13:44 | XMS_ITS | Encounter Summary ---
Author Organization [facility] Healthcare Address [address] [place] [address] Care Team Providers Care Windows Mobile Developer Name Role Phone Waqas De Leon MD Unavailable [phone] Cortney Corona MD Unavailable [phone] Daniel Go MD Unavailable [phone] James Cifuentes MD Unavailable Jovan Roblero MD Unavailable [phone] Jn Velásquez MD Primary Care Provider Encounter Details Date Type Department Care Team (Late st Contact Info) Description 07/15/2025 1:44 PM CDT Hospital Encounter [facility] [address] [place] [address] Arrived Social History Tobacco Use Types Packs/Day Years Used Date Smoking Tobacco: Former Cigarettes 1 53 1 967 - 2020 Smokeless Tobacco: Never Alcohol Use Standard Drinks/Week Comments No 0 (1 standard drink = 0.6 oz pur e alcohol) Social Connection and Isolation Panel Answer Date Recorded In a typical week, how many times do you talk on the phone with family, friends, or neighbors? More than three times a week 05/31/2023 How often do you get togethe r with friends or relatives? More than three times a week 05/31/2023 How often do you attend chur ch or catholic services? Never 05/31/2023 Do you belong to any clubs o r organizations such as yarsanism groups, unions, fraternal or athletic groups, or [...] slept in a intermediate (including now)? No 05/31/2023 Personal Safety Answer Date Recorded Have you ever been in or are you currently in a harmful physical or emotional relationship or is someone making you feel afraid or unsafe? 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 EXAMINATION: RADIOLOGY CONSULTATION ON OUTSIDE IMAGING STUDY STUDY INITIALLY PERFORMED: 01/31/2025 at [facility]. TYPE OF STUDY: Multiple ultrasound images with cine clips of the thyroid are provided at the time of this interpretation. TYPE OF CONSULTATION: Consult on outside imaging study with images submitted through Outside Image Sharing Service DATE OF CONSULTATION: 07/15/2025 1:54 PM HISTORY: 79-year-old female status post total thyroidectomy at outside hospital with reported minute focus of cancer. Cytology from a right thyroid gland nodule FNA dated 2015 demonstrated atypia of undetermined significance. COMPARISON: CT 03/05/2024 FINDINGS: EXAMINATION: There are postoperative changes of thyroidectomy. There is no evidence of tumor recurrence in the thyroid bed. Trace residual normal thyroid tissue within the bilateral thyroidectomy bed. There are no suspicious cervical lymph nodes. IMPRESSION: 1. No evidence of tumor recurrence. The findings and impression are based on the available images, which may not be credit resolution representative of the entire organ or disease entity. Also note that ultrasound image acquisition is flame annealing machine operator dependent, and that the study was performed outside our facility with no control over image acquisition. In addition, the provided images may or may not represent the [place] source data set and thus may contain changes that may lower the accuracy of this second-opinion interpretation. The findings, conclusions and recommendations within this report do not replace the initial findings, conclusions and recommendations made at the facility where the study was performed based upon the imaging and clinical condition at that time. Comparison with the prior report and clinical history is necessary. Dictated by: Hai Wood M.D. documented in this encounter Visit Diagnoses Not on filedocumented in this encounter Care Teams Windows Mobile Developer Relationship Specialty Start Date End Date Jn Velásquez MD [address] [place] [address] PCP - General Family Medicine 07/02/25 Waqas De Leon MD Internal Medicine 11/20/21 Cortney Corona MD Referring Physician Surgery 05/14/22 Daniel Go MD [address] [place] [address] Consulting Physician Interventional Cardiology 05/31/23 [place] [address] [facility] [address] [place] [address] Consulting Physician Pulmonary Disease 05/31/23 Jovan Roblero MD [address] [place], [place] [address] Referring Physician Internal Medicine 07/02/25 documented as of this encounter
--- OUTSIDE RECORDS SUMMARY | 2025-07-15 13:45 | XMS_ITS | Encounter Summary ---
Author Organization [facility] Healthcare Address [address] [place] [address] Care Team Providers Care Flooring Grader Name Role Phone Waqas De Leon MD Unavailable [phone] Cortney Corona MD Unavailable [phone] Daniel Go MD Unavailable [phone] James Cifuentes MD Unavailable Jovan Roblero MD Unavailable [phone] Jn Velásquez MD Primary Care Provider Encounter Details Date Type Department Care Team (Latest Contact Info) Description 07/15/2025 1:45 PM CDT Hospital Encounter [facility] [address] [place] [address] Diagnosis unknown Social History Tobacco Use Types Packs/Day Years [...] often do you attend chur ch or mormonism services? Never 05/31/2023 Do you belong to [...] place to sleep or slept in a residential (including now)? No 05/31/2023 Personal Safety Answer Date Recorded Have you ever been in or are you currently in a harmful physical or emotional relationship or is someone making you feel afraid or unsafe? 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 Gender Identity Not on file Sexual Orientation Not on file documented as of this encounter Plan of Treatment Pending Results Name Type Priority Associated Diagnoses Date /Time CT Body Outside Consult Imaging Routine Diagnosis unknown 07/15/2025 1:45 PM CDT Scheduled Orders Name Type Priority Associated Diagnoses Orde r Schedule CT Body Outside Consult Imaging Routine Diagnosis unknown Once for 1 Occurrences starting 07/15/2025 until 07/15/2025 documented as of this encounter Visit Diagnoses Diagnosis Diagnosis unknown documented in this encounter Care Teams Flooring Grader Relationship Specialty Start Date End Date Jn Velásquez MD [address] [place], [place] [id number] PCP - General Family Medicine 07/02/25 Waqas De Leon MD Internal Medicine 11/20/21 Cortney Corona MD Referring Physician Surgery 05/14/22 Daniel Go MD [address] [place] [address] Consulting Physician Interventional Cardiology 05/31/23 [place] [address] [facility] [address] [place] [address] Consulting Physician Pulmonary Disease 05/31/23 Jovan Roblero MD [address] [place] [address] Referring Physician Internal Medicine 07/02/25 documented as of this encounter
--- OUTSIDE RECORDS SUMMARY | 2025-07-15 14:15 | XMS_ITS | Encounter Summary ---
Author Organization [facility] Healthcare Address [address] [place] [address] Care Team Providers Care Greenhouse Specialist Name Role Phone Waqas De Leon MD Unavailable [phone] Cortney Corona MD Unavailable [phone] Daniel Go MD Unavailable [phone] James Cifuentes MD Unavailable Jovan Roblero MD Unavailable Jn Velásquez MD Primary Care Provider Encounter Details Date Type Department Care Team (Late st Contact Info) Description 07/15/[address] 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 Left voice message for patient to return call to schedule consult only appointment. documented in this encounter Plan of Treatment Not on file documented as of this encounter Visit Diagnoses Not on filedocumented in this encounter Care Teams Greenhouse Specialist Relationship Specialty Start Date End Date Jn Velásquez MD [address] [id number] PCP - General Family Medicine 07/02/25 Waqas De Leon MD Internal Medicine 11/20/21 Cortney Corona MD Referring Physician Surgery 05/14/22 Daniel Go MD [address] [place] [address] Consulting Physician Interventional Cardiology 05/31/23 [place] [address] [facility] [address] [place] [address] Consulting Physician Pulmonary Disease 05/31/23 Jovan Roblero MD [address] [place] [address] Referring Physician Internal Medicine 07/02/25 documented as of this encounter
--- OUTSIDE RECORDS SUMMARY | 2025-07-15 14:15 | XMS_ITS | Encounter Summary ---
Author Organization [facility] Address [address] [place] [address] Phone Care Team Providers Care Retail Representative Name Role Phone Waqas De Leon MD Unavailable Cortney Corona MD Unavailable Daniel Go MD Unavailable [phone] James Cifuentes MD Unavailable Jovan Roblero MD Unavailable [phone] Jn Velásquez MD Primary Care Provider Encounter Details Date Type Department Care Team (Late st Contact Info) Description 07/15/2025 Results Follow-Up [facility] Medicine Endocrinology Metabolism and Lipid [address] [facility] [address], [address] [place] [address] Valery Chakraborty MD [address] [place] [address] [address] [place] [address] ACTH, Cortisol, Cortisol, saliva, Cortisol, saliva Social History Tobacco Use Types Packs/Day Years [...] any clubs o r organizations such as protestant groups, unions, fraternal or athletic groups, or [...] on file 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 Mills, Your cortisol came back on the low side. Have you taken any steroids and/or had any steroid injections recently? JS documented in this encounter Plan of Treatment Not on file documented as of this encounter Visit Diagnoses Not on filedocumented in this encounter Care Teams Retail Representative Relationship Specialty Start Date End Date Jn Velásquez MD [address] [id number] PCP - General Family Medicine 07/02/25 Waqas De Leon MD Internal Medicine 11/20/21 Cortney Corona MD Referring Physician Surgery 05/14/22 Daniel Go MD [address] [place] [address] Consulting Physician Interventional Cardiology 05/31/23 [place] [address] [facility] [address] [place] [address] Consulting Physician Pulmonary Disease 05/31/23 Jovan Roblero MD [address] [address] Referring Physician Internal Medicine 07/02/25 documented as of this encounter
--- OUTSIDE RECORDS SUMMARY | 2025-07-15 14:15 | XMS_ITS | Encounter Summary ---
Author Organization [facility] Healthcare Address [address] [place] [address] Care Team Providers Care Small Products I Assembler Name Role Phone Waqas De Leon MD Unavailable [phone] Cortney Corona MD Unavailable Daniel Go MD Unavailable [phone] James Cifuentes MD Unavailable Jovan Roblero MD Unavailable Jn Velásquez MD Primary Care Provider [phone] Encounter Details Date Type Department Care Team (Late st Contact Info) Description 07/04/2025 Documentation [facility] Radiation Oncology [address] [facility] [place] [address] Renaldo Loomis, RN Social History Tobacco Use [...] often do you attend chur ch or confucianism services? 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 Gender Identity Not on file Sexual Orientation Not on file documented as of this encounter Plan of Treatment Not on file documented as of this encounter Visit Diagnoses Not on filedocumented in this encounter Care Teams Small Products I Assembler Relationship Specialty Start Date End Date Jn Velásquez MD [address] [place] [address] PCP - General Family Medicine 07/02/25 Waqas De Leon MD Internal Medicine 11/20/21 Cortney Corona MD Referring Physician Surgery 05/14/22 Daniel Go MD [address] [place] [address] Consulting Physician Interventional Cardiology 05/31/23 [place] [address] [facility] [address] [place] [address] Consulting Physician Pulmonary Disease 05/31/23 Jovan Roblero MD [address] [place] [address] Referring Physician Internal Medicine 07/02/25 documented as of this encounter
--- OUTSIDE RECORDS SUMMARY | 2025-07-15 14:16 | XMS_ITS | Encounter Summary ---
Author Organization [facility] Address [address] [place] [address] Phone Care Team Providers Care Folder Machine Name Role Phone Jn Velásquez MD Primary Care Provider [phone] Waqas De Leon MD Unavailable [phone] Waqas De Leon MD Unavailable [phone] Cortney Corona MD Unavailable [phone] Stephanie Morrissey MD Primary Care Provider [phone] Jn Velásquez MD Primary Care Provider [phone] Miscellaneous, Not In File Unavailable Unava ilDaniel Mckeon MD Unavailable [phone] James Cifuentes MD Unavailable [phone] Jovan Roblero MD Unavailable [phone] Jn Velásquez MD Primary Care Provider [phone] Encounter Details Date Type Department Care Team [...] often do you attend chur ch or sabianist services? Never 05/04/2022 Do you belong to [...] slept in a fci (including now)? 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 Gender Identity Not on file Sexual [...] documented as of this encounter Care Teams Folder Machine Relationship Specialty Start Date End Date Jn Velásquez MD PCP - General Family Medicine 11/20/21 08/31/22 Stephanie Morrissey MD PCP - General Internal Medicine 09/01/22 05/28/23 Jn Velásquez MD PCP - General Family Medicine 05/29/23 07/01/25 Jn Velásquez MD [address] [address] PCP - General Family Medicine 07/02/25 Waqas De Leon MD Internal Medicine 11/20/21 Waqas De Leon MD Internal Medicine 06/06/19 07/01/25 Cortney Corona MD Referring Physician Surgery 05/14/22 Miscellaneous, Not In File 05/31/23 07/01/25 Daniel Go MD [address] [place] [address] Consulting Physician Interventional Cardiology 05/31/23 [place] [address] [facility] [address] [place] [address] Consulting Physician Pulmonary Disease 05/31/23 Jovan Roblero MD [address] [place] [address] Referring Physician Internal Medicine 07/02/25 documented as of this encounter
--- OUTSIDE RECORDS SUMMARY | 2025-07-15 14:16 | XMS_ITS | Clinical Summary ---
Author Organization [facility] Address [facility] [place] [address] Care Team Providers Care Relationship Management Lead Name Role Phone Unavailable Primary Care [...] COVID-19 Vaccine ( - 2023-2 5 season) 2025 Hepatitis C Completed 06/10/2014 Meningococcal B Vaccine Aged Out No l onger eligible based on patient's age to complete this topic Meningococcal Vaccine Aged Out No trae zeina eligible based on patient's age to complete this topic RSV Immunizations Under 20 Months Aged Out No longer eligible based on patient's age to complete this topic
--- OUTSIDE RECORDS SUMMARY | 2025-07-15 14:16 | XMS_ITS ---
Author Organization [facility] Address [address] [place] [address] Care Team Providers Care Telephone Coin Box Collector Name Role Phone Waqas De Leon MD Unavailable [phone] Cortney Corona MD Unavailable Daniel Go MD Unavailable [phone] aJmes Cifuentes MD Unavailable Jovan Roblero MD Unavailable Jn Velásquez MD Primary Care Provider Active Problems Problem Noted Date Diagnosed Date Severe recurrent major depre ssion without psychotic features 06/18/2025 Hypercortisolemia 06/18/2025 Chronic diastolic (congestive) heart failure 05/2025 Orthostatic hypotension 10/12/2024 Malignant neoplasm of thyroid gland 11/10/2023 Well controlled type 2 diabetes mellitus 023 Community acquired pneumonia 05/30/2023 CHF (congestive heart failure) 05/30/2023 Neuropathy 05/30/2023 Urinary frequency 05/30/2023 Shortness of breath 05/29/2023 Abnormal nuclear stress test 03/14/2023 Adrenal abnormality 12/15/2022 Postoperative hypothyroidism 07/04/2022 Prediabetes 05/27/2022 Vitamin B12 deficiency (non anemic) [...] CDT): 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 Converted unresolved ICD9, potential mismatch. Hypothyroid 10/13/2014 Obstructive sleep apnea syndrome 05/23/2014 Other chest pain Current Treatment and Therapy Plans No current plan information found. Past Treatment and Therapy Plans No past plan information found. Lifetime Dose Tracking * Chemical Lifetime Dose Automatic Entry Manual Entr y Fluoro Time 0.988 minutes 0.988 minutes 0 minutes Air kerma at the reference point (Ka,r) 4.83 mGy 4 .83 mGy 0 mGy Resolved Problems Problem Noted Date Diagnosed Date [...] Patient need to follow up with her analyst geochemical prospecting Dr. Fitch at [facility] on 06/28 Acute pulmonary edema 05/18/20222021 [...] on room air- transition to torsemide per analyst geochemical prospecting, add low dose potassium supplement. Continue to [...]
--- OUTSIDE RECORDS SUMMARY | 2025-07-15 14:16 | XMS_ITS | Clinical Summary ---
Author Organization [facility] Address [address], [place] [address] Phone Care Team Providers Care Wall To Wall Carpet Installer Name Role Phone Jn Velásquez MD Primary Care Provider [phone] Allergies Active Allergy Reactions Criticality Noted Date [...] 0 Active ergocalciferol (VITAMIN D2) 1.25 MG (04204 UT) capsule Take 50,000 Units by mouth [...] on file Legal Sex Female 8:46 AM [facility] Gender Identity Not on file Sexual [...] PCV20 or PCV21) 11/26/2016 11/26/2015 Influenza Vaccine (#1) 2025 Insurance MEDICAID - [place] [employer] MEDICARE Care Teams Wall To Wall Carpet Installer Relationship Specialty Start Date End Date Jn Velásquez MD [address] [place] [address] PCP - General Internal Medicine 06/18/20
--- OUTSIDE RECORDS SUMMARY | 2025-07-15 14:16 | XMS_ITS | Encounter Summary ---
Author Organization [facility] Address [address] [place] [address] Phone Care Team Providers Care Sap Bpc Architect Name Role Phone Jn Velásquez MD Primary Care Provider [phone] Waqas De Leon MD Unavailable [phone] Waqas De Leon MD Unavailable [phone] Cortney Corona MD Unavailable [phone] Stephanie Morrissey MD Primary Care Provider [phone] Jn Velásquez MD Primary Care Provider [phone] Miscellaneous, Not In File Unavailable Unava ilDaniel Mckeon MD Unavailable [phone] James Cifuentes MD Unavailable [phone] Jovan Roblero MD Unavailable [phone] Jn Velásquez MD Primary Care Provider [phone] Encounter Details Date Type Department Care Team [...] on file 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 Gender Identity Not on file Sexual [...] documented as of this encounter Care Teams Sap Bpc Architect Relationship Specialty Start Date End Date Jn Velásquez MD PCP - General Family Medicine 11/20/21 08/31/22 Stephanie Morrissey MD PCP - General Internal Medicine 09/01/22 05/28/23 Jn Velásquez MD PCP - General Family Medicine 05/29/23 07/01/25 Jn Velásquez MD [address] [address] PCP - General Family Medicine 07/02/25 Waqas De Leon MD Internal Medicine 11/20/21 Waqas De Leon MD Internal Medicine 06/06/19 07/01/25 Cortney Corona MD Referring Physician Surgery 05/14/22 Miscellaneous, Not In File 05/31/23 07/01/25 Daniel Go MD [address] [place] [address] Consulting Physician Interventional Cardiology 05/31/23 [place] [address] [facility] [address] [place] [address] Consulting Physician Pulmonary Disease 05/31/23 Jovan Roblero MD [address] [place] [address] Referring Physician Internal Medicine 07/02/25 documented as of this encounter
--- OUTSIDE RECORDS SUMMARY | 2025-07-15 14:16 | XMS_ITS | Patient Health Record ---
Author Organization [facility] [employer] Address [address] [place] [address] Care Team Providers Care Alumnae Secretary Name Role Phone Sandie Irwin Unavailable [phone] Allergies Allergen (clinical drug ingredient) Drug/Non Drug Allergy documented on EMR Reaction Allergy Type Onset Date Status lisinopril Lisinopril Unknown Drug Allergy 11/17/2023 Acti ve Reason For Referral No Information Medications Medication SIG (Take, Route, Frequency, Duration) Notes Start Date End Date Status hydroCHLOROthiazide 25 MG Tablet Oral 03/19/2024 Unknown MOUNJARO 12.5 MG/0.5 ML SUBCUTANEOUS PEN INJECTOR *Reorder from [facility] for eRx and Interaction Alerts* 03/19/2024 Unknown Allopurinol 100 MG Tablet Oral 03/19/2024 Unknown EUTHYROX 125 MCG TABLET *Reorder from [facility] for eRx and Interaction Alerts* 03/19/2024 Unknown DAPAGLIFLOZIN PROPANEDIOL 10 MG TABLET *Reorder from [facility] for eRx and Interaction Alerts* 03/19/2024 Unknown Breztri Aerosphere 160-9-4.8 MCG/ACT Aerosol Inhalation *[facility]* 03/19/2024 Unknown Farxiga 10 MG Tablet Oral 03/19/2024 Unknown Atenolol 25 MG Tablet Oral 03/19/2024 Unknown Atorvastatin Calcium 40 MG Tablet Oral 03/19/2024 Unknown Mounjaro 10 MG/0.5ML Solution Pen-injector Subcutaneous *Reorder from [facility] for eRx and Interaction Alerts* 03/19/2024 Unknown amLODIPine Besylate 10 MG Tablet Oral 03/19/2024 Unknown Breo Ellipta 100-25 MCG/INH Aerosol Powder Breath Activated Inhalation 03/19/2024 Unknown Losartan Potassium 50 MG Tablet Oral 03/19/2024 Unknown Farxiga 5 MG Tablet Oral 03/19/2024 Unknown Azelastine HCl 0.05 % Solution Ophthalmic 03/19/2024 Unknown Furosemide 20 MG Tablet Oral 03/19/2024 Unknown Unithroid 88 mcg Tablet Oral 03/19/2024 Unknown Unithroid 75 mcg Tablet Oral 03/19/2024 Unknown amLODIPine Besylate 5 MG Tablet Oral 03/19/2024 Unknown Lurasidone HCl 20 MG Tablet TAKE 1 TABLET BY MOUTH EVERY EVENING WITH FOOD; Duration: 30 Active INSULIN SYRINGE/U-100/1ML/31G X 03/07 6 31G X 03/22 1 ML MISC *Reorder from [facility] for eRx and Interaction Alerts* 03/19/2024 Unknown Chlorthalidone 25 MG Tablet Oral 03/19/2024 Unknown Magnesium Oxide (Elemental) 400 MG Tablet Oral *Reorder from [facility] for eRx and Interaction Alerts* 03/19/2024 Unknown Nitroglycerin 0.4 MG Tablet Sublingual Sublingual 03/19/2024 Unknown Isosorbide Mononitrate ER 30 MG Tablet Extended Release 24 Hour Oral 03/19/2024 Unknown dexAMETHasone 1 MG Tablet Oral 03/19/2024 Unknown rOPINIRole HCl 0.5 MG Tablet Oral 03/19/2024 Unknown Ergocalciferol 1.25 MG (86023 UT) Capsule Oral 03/19/2024 Unknown Korlym 300 mg Tablet Oral 03/19/2024 Unknown hydrALAZINE HCl 50 MG Tablet Oral 03/19/2024 Unknown oxyBUTYnin Chloride ER 10 MG Tablet Extended Release 24 Hour Oral 03/19/2024 Unknown Trintellix 20 MG Tablet 1 tablet Oral Once a day; Duration: 90 days Active ProAir HFA 108 (90 Base) MCG/ACT Aerosol Solution Inhalation 03/19/2024 Unk nown Azithromycin 250 MG Tablet Oral 03/19/2024 Unknown Rosuvastatin Calcium 10 MG Tablet Oral 03/19/2024 Unknown KERENDIA 10 MG TABLET *Reorder f [facility] for eRx and Interaction Alerts* 03/19/2024 Unknown PREGABALIN 200 MG CAPSULE *Reord er from [facility] for eRx and Interaction Alerts* 03/19/2024 Unknown Albuterol Sulfate (2.5 MG/3ML) 0.083% Nebulization Solution Inhalation 03/19/2024 Unknow n Immunizations Vaccine Route Administration Date Status Comme [...] History Observation Description Sex Assigned At Female Social History Miscellaneous: Social Info Question Answer Notes Advance Care Planning Advance Directive FULL CODE Tobacco Use: Social Info Question Answer Notes Tobacco Control (Standard) Tobacco use: Former smoker Additional Details Category Social Info Options Details Migrated Social History Migrated Social History Alcohol Intake: None 09/09/2020,Tobacco Years: Former smoker 12/16/2022,Smoking Status: 52 11/17/2023 Problems Problem Type SNOMED Code ICD Code Onset Dates Problem Status W/U Status Risk Notes Problem Severe recurrent major depression without psychotic features (07758729) Major depressive disorder, 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 Problem Generalized anxiety disorder (17505535) Generalized anxiety disorder (F41.1) Active confirmed Problem Primary insomnia (4909390) Primary insomnia (F51.01) Active confirmed Vital Signs Heart Rate 96 /min 01/21/2025 Height-cm 162.56 cm 05/01/2025 Blood pressure diastolic 65 mm Hg 01/21/2025 Weight-kg 106.6 kg 05/01/2025 Height 64.00 in 05/01/2025 Blood pressure systolic 159 mm Hg 01/21/2025 Weight 235 lbs 05/01/2025 BMI 40.33 kg/m2 05/01/2025 Encounters Encounter Location Date Provider Diagnosis [facility] [place] [id number] [facility] [address] [address] 07/24/2024 Sandie Dc Major depressive disorder, recurrent severe without psychotic features F33.2 ; Generalized anxiety disorder F41.1 and Primary insomnia F51.01 [place] [address] [address] 01/21/2025 Sandie Dc Benign essential HTN I10 ; Encounter for screening for cardiovascular disorders Z13.6 ; Dietary counseling and surveillance Z71.3 ; Encounter for screening for depression Z13.31 ; Major depressive disorder, recurrent severe without psychotic features F33.2 ; Generalized anxiety disorder F41.1 and Primary insomnia F51.01 [facility] [place] [address] [address] 05/01/2025 Sandie Dc Major depressive disorder, recurrent severe without psychotic features F33.2 ; Generalized anxiety disorder F41.1 ; Encounter for screening for depression Z13.31 ; Benign essential HTN I10 ; Encounter for screening for cardiovascular disorders Z13.6 ; Dietary counseling and surveillance Z71.3 and Primary insomnia F51.01 [facility] [place] [address] [address] 03/29/2025 Sandie Irwin [place] [address] [facility] [address] [address] 05/07/2025 Sandie Irwin [place] [address] [facility] [address] [address] 05/21/2025 Sandie Dc Major depressive disorder, recurrent severe without psychotic features F33.2 Assessments Encounter Date Diagnosis (ICD Code) Assessment [...] 01/21/2025 Benign essential HTN (ICD-10 - I10) 05/01/2025 Major depressive disorder, recurrent severe without psychotic features (ICD-10 - F33.2) Common side effects to SSRI medications include headaches, dry mouth/eye, GI upset (including indigestion, nausea, diarrhea), sleeping problems (insomnia or drowsiness), decreased libido, blurred vision, dizziness. Generally, side effects will subside or lessen with time and are common during drug initiation and dose changes. If they persist please contact the office. 05/01/2025 Generalized anxiety disorder (ICD-10 - F41.1) 05/21/2025 Major depressive disorder, recurrent severe without psychotic features (ICD-10 - F33.2) 05/01/2025 Encounter for screening for depression (ICD-10 - Z13.31) 01/21/2025 Encounter for screening for cardiovascular disorders (ICD-10 - Z13.6) 07/24/2024 Primary insomnia (ICD-10 - F51.01) 01/21/2025 Dietary counseling and surveillance (ICD-10 - Z71.3) 05/01/2025 Benign essential HTN (ICD-10 - I10) 01/21/2025 Encounter for screening for depression (ICD-10 - Z13.31) 05/01/2025 Encounter for screening for cardiovascular disorders (ICD-10 - Z13.6) 05/01/2025 Dietary counseling and surveillance (ICD-10 - Z71.3) 01/21/2025 Major depressive disorder, recurrent severe without [...] 01/21/2025 Generalized anxiety disorder (ICD-10 - F41.1) 05/01/2025 Primary insomnia (ICD-10 - F51.01) 01/21/2025 Primary insomnia (ICD-10 - F51.01) 07/24/2024 [...] of psychotropic medications. -Crisis prevention hotline 988. 05/01/2025 Other Start Abilify 2mg daily for mood, anxiety Patient educated on all medications including potential benefits, side effects, risks. Educated on proper dosing schedule and importance of compliance. Supportive therapy provided -Assessment and treatment plan reviewed with patient. -Compliance with treatment plan importance discussed. -Discussed the risks/benefits of this medication -Discussed medication side effects. -Contact office if symptoms worsen. -Discussed that it can take up to 6-8 weeks to see full therapeutic effects of psychotropic medications. -Crisis prevention hotline 988. Plan Of Treatment Next Appt Details Provider Name:Sandie chino, 07/22/2025 02:15:00 PM, [address] [facility] [address] [facility] [address], [place], [address], Insurance Providers Payer Name Payer Address Payer Phone Subscriber Number Group Number Insured Name Patient Relationship to Insured Coverage Start Date Coverage End Date [facility] Medicare Replacement/ Advantage - Ppo [address] [address] [place] [address] [id number] JESU HARLEY Self - patient is the insured Medicaid-[place] Medicaid [address] [address] [place] [address] [id number] JESU HARLEY Self - patient is the [...] Surgical History Surgery Date(Month/Year) Removal of gallbladder (64653) Cosmetic surgery 11/07/1999
--- OUTSIDE RECORDS SUMMARY | 2025-07-15 14:16 | XMS_ITS | Clinical Summary ---
Author Organization [facility] Address [address] [place] [address] Care Team Providers Care Buckle Strap Puncher Name Role Phone Waqas De Leon MD Unavailable Cortney Corona MD Unavailable Daniel Go MD Unavailable [phone] James Cifuentes MD Unavailable [phone] Jovan Roblero MD Unavailable Jn Velásquez MD Primary Care Provider [phone] Allergies Active Allergy Reactions Criticality Noted Date Comments Adhesive Itching,Rash Medium 09/07/2022 Lisinopril Shortness of breath,Unknown High 12/24/19 22 Medications albuterol HFA (PROVENTIL HFA,VENTOLIN HFA,PROAIR HFA) 90 mcg/actuation inhaler Inhale 1-2 puffs every 6 (six) hours as needed for shortness of breath 1 each 022 Active acetaminophen (TYLENOL) 325 mg tablet Take 1 tablet (325 mg total) by mouth every 4 (four) hours as needed for pain 022 Active amLODIPine (NORVASC) 5 mg tabletIndicatio ns:Primary hypertension Take 1 tablet (5 mg total) by mouth daily 30 tablet Active melatonin 5 mg tabletIndicatio ns:Primary insomnia Take 1 tablet (5 mg total) by mouth nightly as needed (insomnia) 0 Active ergocalciferol (VITAMIN D) 50,000 unit capsule Take 1 capsule (50,000 Units total) by mouth Active oxybutynin XL (DITROPAN-XL) 10 mg 24 hr tablet Take 1 tablet (10 mg total) by mouth daily Active rosuvastatin (CRESTOR) 10 mg tablet Take 1 tablet (10 mg total) by mouth daily Active isosorbide mononitrate ER (IMDUR) 30 mg 24 hr tablet Take 1 tablet (30 mg total) by mouth daily Active nitroglycerin (NITROSTAT) 0.[address] 1 tablet (0.4 mg total) under the tongue every 5 (five) minutes as needed for chest pain Active aspirin 81 mg chewable tablet Take 1 tablet (81 mg total) by mouth daily 30 tablet Active umeclidinium-vi lanteroL (ANORO ELLIPTA) 62.5-25 mcg/actuation blister with deviceIndicatio ns:Bronchospasm Prevention with COPD Inhale 1 puff daily 30 each Active furosemide (LASIX) 20 mg tablet Take 1 tablet (20 mg total) by mouth daily 30 tablet Active azelastine (OPTIVAR) 0.05 % ophthalmic solution 1 drop 2 (two) times a day Active neomycin-polymy leighton-dexAMETHaso ne (MAXITROL) 3.5mg/mL-10,000 unit/mL-0.1 % ophthalmic suspension SHAKE LIQUID AND INSTILL 1 DROP IN BOTH EYES TWICE DAILY Active pregabalin (LYRICA) 200 mg capsule Take 1 capsule (200 mg total) by mouth 2 (two) times a day Active Trintellix 20 mg tablet Take 1 tablet (20 mg total) by mouth daily Active fluticasone furoate-vilante roL (Breo Ellipta) 100-25 mcg/dose diskus inhaler Inhalation 05/13/2 024 Active magnesium oxide (MAG-OX) 400 mg (241.3 mg elemental magnesium) tablet Oral Active Breztri Aerosphere 160-9-4.8 mcg/actuation inhaler Inhalation Active HYDROcodone-evaristo taminophen (NORCO) 10-325 mg per tablet Take 1 tablet by mouth 4 (four) times a day Active Mounjaro 15 mg/0.5 mL pen injector ADMINISTER 15 MG UNDER THE SKIN WEEKLY Active tirzepatide (Mounjaro) 12.5 mg/0.5 mL pen injector MOUNJARO 12.5 MG/0.5 ML SUBCUTANEOUS PEN INJECTOR Active hydrOXYzine (ATARAX) 50 mg tablet TAKE 1-2 TABLETS BY MOUTH THREE TIMES DAILY NEEDED FOR ITCHING Active loteprednol (LOTEMAX) 0.5 % ophthalmic suspension Active Farxiga 10 mg tablet Take 1 tablet (10 mg total) by mouth daily Active ARIPiprazole (ABILIFY) 2 mg tablet Take 1 tablet (2 mg total) by mouth daily Active budesonide (PULMICORT) 0.5 mg/2 mL nebulizer solution INHALE 1 VIAL VIA NEBULIZER ONCE DAILY Active ipratropium-alb uteroL (DUO-NEB) 0.5-2.5 mg/3 mL nebulizer solution USE 3 ML VIA NEBULIZER FOUR TIMES DAILY Active levoFLOXacin (LEVAQUIN) 500 mg tablet levofloxacin 500 mg tablet Active lurasidone (LATUDA) 20 mg tablet daily Active minoxidiL (LONITEN) 2.5 mg tablet Take 1 tablet (2.5 mg total) by mouth daily Active potassium chloride ER 20 mEq CR tablet Take 1 tablet (20 mEq total) by mouth daily Active Unithroid 88 mcg tablet Take 1 tablet (88 mcg total) by mouth daily Active DULoxetine DR (CYMBALTA) 20 mg capsule TAKE 1 CAPSULE(20 MG) BY MOUTH DAILY 90 capsule 1 08/29/2 025 Active Unithroid 75 mcg tablet Take 1 tablet (75 mcg total) by mouth every morning 022 2024 Discontinued(A lternate therapy) miFEPRIStone (KORLYM) 300 mg tablet Take 1 tablet (300 mg total) by mouth daily 2024 Discontinued(T herapy completed) DULoxetine DR (CYMBALTA) 20 mg capsule Take 1 capsule (20 mg total) by mouth daily 30 capsule 2 025 2024 Discontinued Active Problems Problem Noted Date Diagnosed Date [...] CDT): 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 Fitch at [facility] on 06/28 Acute pulmonary edema [...] on room air- transition to torsemide per editor map, add low dose potassium supplement. Continue to [...] Encounters Date Type Department Care Team Description 07/15/2025 1:45 PM CDT Hospital Encounter [facility] ([facility]) [address] [place] [address] Diagnosis unknown 07/15/2025 1:44 PM CDT Hospital Encounter [facility] ([facility]) [address] [place] [address] Arrived 07/15/2025 Telephone [facility] Radiation Oncology [address] [place] [address] Renaldo Loomis, ALEX 07/15/2025 Results Follow-Up [facility] and Lipid [address] [facility] ([place] [place] Floor 1, [address] [place] [phone] Valery Chakraborty MD ACTH, Cortisol, Cortisol, saliva, Cortisol, saliva 07/04/2025 Telephone [facility] Radiation Oncology [address] [place] [address] Renaldo Loomis, ALEX 07/04/2025 Documentation [facility] Radiation Oncology [address] [place] [address] [place] [address] Renaldo Loomis, ALEX 07/03/2025 Documentation [facility] Radiation Oncology [address] [place] [address] Yokasta Gutierrez RN 07/02/2025 Telephone [facility] [address] [place] [address] Andreea Taylor RN 06/18/2025 12:40 PM CDT Office Visit [facility] Lipid [address] [facility] ([place] [place] Floor 1, [address] [place] [address] Valery Chakraborty MD Hypercortisolemia (Primary Dx); Postoperative hypothyroidism 05/29/2025 12:06 PM CDT - 05/29/2025 11:59 PM CDT Hospital Encounter [facility] [address] [place] [address] Myron Willams MD Ponkowski, Michael James, MD Bilateral shoulder pain, unspecified chronicity Discharge Disposition: Discharge to home or self care 05/28/2025 Orders Only [facility] Medicine 5th [place] [address] [place] [phone] Zarina Carroll MD Chronic back pain, unspecified back location, unspecified back pain laterality (Primary Dx) 05/28/2025 Telephone [facility] [address] [place] [address] Sri Rogers, B.A. from Last 3 Months Surgical History Surgery Date Site/Laterality Comments CHOLECYSTECTOMY Cholecystectomy THYROIDECTOMY 11/07/2014 - 11/06/2015 Thyroidectomy HYSTERECTOMY ANTERIOR CERVICAL DISCECTOMY FLUORO GUIDED ASPIRATION OR INJECTION LARGE JOINT BILATERAL 05/29/2025 Bilateral Medical History Medical History Date Comments Hyperlipidemia [...] (congestive heart failure) (HCC) Asthma Emphysema lung Family History Medical History Relation Name Comments [...] often do you attend chur ch or gnosticism services? 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 Gender Identity Not on file Sexual Orientation Not on file Obstetrics History Last Filed Vital Signs Vital Sign Reading Time Taken Comments Blood Pressure 120/57 06/18/2025 12:59 PM CDT Pulse 80 06/18/2025 12:59 PM CDT Temperature 37 C (98.6 F) 03/21/2025 10:43 PM CDT Respiratory Rate 18 06/18/2025 12:5 9 PM CDT Oxygen Saturation 94% 03/21/2025 10: 43 PM CDT Inhaled Oxygen Concentration - - Weight 102.3 kg (225 lb 9.6 oz) 025 12:59 PM CDT Height 154.9 cm (5' 1) 06/18/2025 12:5 9 PM CDT Body Mass Index 42.63 06/18/2025 12:59 PM CDT Plan of Treatment Health Maintenance Due Date Last Done Comments Albumin Creatinine Ratio, Urine 1945 Depression Screening 1945 Osteoporosis Screening-Bone Density Scan 1945 Dilated Eye Exam 1945 Foot Exam 1947 Hepatitis B Screening 1965 Lung Cancer Screening 1997 Zoster Vaccine (1 of 2) 1997 Well Visit 65+ 2012 Pneumococcal vaccine 65+ (2 of 2 - PPSV23, PCV20, or PCV21) 01/21/2016 11/26/2015, 11/07/2009 Hemoglobin A1C 02/11/2021 08/13/2020 Lipid Panel 01/06/2023 01/06/2022 Fall Risk Assessment 06/01/2024 06/01/2023 Covid-19 Vaccine (3 - 2024-2 6 season) 2025 02/20/2021, 01/23/2021 Influenza Vaccine (#1) 2025 08/07/2021, 2019 eGFR 03/21/2026 03/21/2025, 12/0 02/2024, 08/10/2024, Additional history exists DTaP/Tdap/Td Vaccine (2 - Td or Tdap) 02/04/2031 02/04/2021 Breast Cancer Screening-Mammogram Discontinued 014 Hepatitis C Screening Completed 08/10/2024 Procedures Procedure Name Priority Date/Time Associated Diagnosis Comments US OUTSIDE CONSULT Routine 07/15/2025 1:44 PM CDT Procedure Note - Hai Wood MD / Andrew Burt MD PhD - 07/15/2025 1:44 PM CDTThis note is in progress. EXAMINATION: RADIOLOGY CONSULTATION ON OUTSIDE IMAGING STUDY STUDY INITIALLY PERFORMED: 01/31/2025 at [facility]. TYPE OF STUDY: Multiple ultrasound images with [...] the available images, which may not be merchandiser retail representative of the entire organ or disease entity. Also note that ultrasound image acquisition is metalizing machine operator automatic dependent, and that the study was performed outside our facility with no control over image acquisition. In addition, the provided images may or may not represent the [place] source data set and thus may contain [...] is necessary. Dictated by: Hai Wood M.D. CORTISOL Routine 07/09/2025 8:48 AM CDT Hypercortisolemia ACTH Routine 07/09/2025 8:48 AM CDT Hypercortisolemia CORTISOL,SALIVA Routine 07/08/2025 12:00 PM CDT Hypercortisolemia CORTISOL,SALIVA Routine 07/07/2025 12:00 PM CDT Hypercortisolemia FLUORO GUIDED ASPIRATION OR INJECTION LARGE JOINT BILATERAL Schedule Routine, Read Routine (OP Routine) 05/29/2025 1:15 PM CDT Bilateral shoulder pain, unspecified chronicity EGFR STAT 03/21/2025 10:49 PM CDT HEPATITIS PANEL, ACUTE Routine 08/10/2024 12:01 PM CDT Interstitial pulmonary disease (HCC) from Last 3 Months or Most Recently Relevant to Health Maintenance Results * ACTH (07/09/2025 8:48 AM CDT) ACTH 7.7 7.2 - 63.3 pg/mL [facility] - 01 Comment:ACTH reference inter francesca for samples collected between 7 and 10 AM. Blood 07/09/2025 8:48 AM CDT 07/09/2025 Narrative [facility] - 07/10/2025 3:10 PM CDT Performed at: 01 - [facility] [id number] Newspaper Correspondent: Javier Cordero PhD, Phone: [phone] us Valery Chakraborty MD LAB BLOOD ORDERABLES Final Result [facility] - 01 * (ABNORMAL) Cortisol (07/09/2025 8:48 AM CDT) Cortisol 4.8(L) 6.2 - 19.4 ug/dL [facility] - 01 Comment: Please Note: The reference interval and flagging for this test is for an AM collection. If this is a PM collection please use: Cortisol PM: 2.3-11.9 Blood 07/09/2025 8:48 AM CDT 07/09/2025 Narrative [facility] - 07/10/2025 7:09 AM CDT Performed at: [facility] [id number] Newspaper Correspondent: Javier Cordero PhD, Phone: [phone] Valery Chakraborty MD LAB BLOOD ORDERABLES Final Result Performing Organization Address [facility] de Phone Number [facility] * Cortisol, saliva (07/08/2025 12:00 PM CDT) Cortisol, saliva 0.014 ug/dL [facility] - Comment: This test was developed and its performance characteristics determined by [facility]. It has not been cleared or approved by the Food and Drug Administration. Reference Range: Children and Adults: 8:00a.m.: 0.025 - 0.600 Noon: <0.010 - 0.330 4:00p.m.: 0.010 - 0.200 Bedtime (9:00p.m.-Midnight): <0.010 - 0.090 Saliva 07/08/2025 12:0 0 PM CDT 07/09/2025 Narrative [facility] - 07/14/2025 3:08 PM CDT Performed at: [facility] [address] [place] [id number] Newspaper Correspondent: Nuno Stewart MD, Phone: [phone] Valery Chakraborty MD LAB BODY FLUIDS AND STOOLS ORDERABLES Final Result Performing Organization Address [facility] Co de Phone Number [facility] - * Cortisol, saliva (07/07/2025 12:00 PM CDT) Cortisol, saliva <0.010 ug/dL [facility] - 01 Comment: This test was developed and its performance characteristics determined by [facility]. It has not been cleared or approved by the Food and Drug Administration. Reference Range: Children and Adults: 8:00a.m.: 0.025 - 0.600 Noon: <0.010 - 0.330 4:00p.m.: 0.010 - 0.200 Bedtime (9:00p.m.-Midnight): <0.010 - 0.090 Saliva 07/07/2025 12:0 0 PM CDT 07/09/2025 Narrative [facility] - 07/14/2025 3:08 PM CDT Performed at: - [facility] [address] [place] [id number] Newspaper Correspondent: Nuno Stewart MD, Phone: [phone] Valery Chakraborty MD LAB BODY FLUIDS AND STOOLS ORDERABLES Final Result [facility] - 01 * FL Fluoro Guided Aspiration or Injection Large Joint Bilateral (05/29/2025 1:15 PM CDT) Anatomical Region Laterality Modality Body Bilateral Radio Fluoroscop y 05/29/2025 1:32 PM CDT Impressions 05/29/2025 1:37 PM CDT 1. Bilateral glenohumeral joint injections under fluoroscopic guidance with reduction of the patient's presenting pain at the conclusion of the procedure. Dictated by: Eron Cyr M.D. The radiology attending physician has personally reviewed this study, and had reviewed and/or edited this written report and agrees with it. Electronically signed by: Myron Willams M.D. Narrative 05/29/2025 1:37 PM CDT EXAMINATION: Bilateral glenohumeral joint injection under fluoroscopic guidance HISTORY: 79-year-old patient with chronic bilateral shoulder pain. ATTENDING PRESENCE: Dr. Myron Willams M.D., the attending radiologist, was present from the beginning to the end of the procedure. Dr. Sharif (radiology fellow) was present and participated in the procedure. SEDATION: The patient did not require conscious sedation for the procedure. TECHNIQUE: The risks, benefits and alternatives were discussed and informed consent was obtained. Prior to beginning the procedure, Goodridge Protocol was performed to confirm the patient's identity and the planned procedure. Sterile barriers used during the procedure included cap, mask, hand hygiene, sterile gloves, and sterile drape. Chloraprep was used for cutaneous antisepsis. The patient was placed supine on the procedure table. The following steps were repeated for first the right shoulder and then the left. The glenohumeral joint was localized with fluoroscopic guidance . Local anesthesia was achieved with subcutaneous injection of 1% lidocaine 3 mL. A 22-gauge needle was then introduced into the joint under imaging guidance. 5 mL of a 2:1 mixture of Omnipaque-300 and 0.25% bupivacaine was injected to verify intra-articular position of the needle tip. A mixture containing Kenalog (40 mg/mL) 1 mL, 0.25% bupivacaine 1 mL, and Omnipaque-300 1mL was then injected into the joint. The needle was removed. The skin was cleansed with hydrogen peroxide, and a bandage was placed. Complication: None ESTIMATED BLOOD LOSS: None CONDITION: Stable condition. DISCHARGED TO: Home FINDINGS: Imaging confirms intra-articular position of the needle tip for both glenohumeral joints. Following the injections, the patient reported reduction in symptoms. Procedure Note Myron Willams MD - 05/29/2025 EXAMINATION: Bilateral glenohumeral joint injection under fluoroscopic guidance HISTORY: 79-year-old patient with chronic bilateral shoulder pain. ATTENDING PRESENCE: Dr. Myron Willams M.D., the attending radiologist, was present from the beginning to the end of the procedure. Dr. Sharif (radiology fellow) was present and participated in the procedure. SEDATION: The patient did not require conscious sedation for the procedure. TECHNIQUE: The risks, benefits and alternatives were discussed and informed consent was obtained. Prior to beginning the procedure, Goodridge Protocol was performed to confirm the patient's identity and the planned procedure. Sterile barriers used during the procedure included cap, mask, hand hygiene, sterile gloves, and sterile drape. Chloraprep was used for cutaneous antisepsis. The patient was placed supine on the procedure table. The following steps were repeated for first the right shoulder and then the left. The glenohumeral joint was localized with fluoroscopic guidance . Local anesthesia was achieved with subcutaneous injection of 1% lidocaine 3 mL. A 22-gauge needle was then introduced into the joint under imaging guidance. 5 mL of a 2:1 mixture of Omnipaque-300 and 0.25% bupivacaine was injected to verify intra-articular position of the needle tip. A mixture containing Kenalog (40 mg/mL) 1 mL, 0.25% bupivacaine 1 mL, and Omnipaque-300 1mL was then injected into the joint. The needle was removed. The skin was cleansed with hydrogen peroxide, and a bandage was placed. Complication: None ESTIMATED BLOOD LOSS: None CONDITION: Stable condition. DISCHARGED TO: Home FINDINGS: Imaging confirms intra-articular position of the needle tip for both glenohumeral joints. Following the injections, the patient reported reduction in symptoms. IMPRESSION: 1. Bilateral glenohumeral joint injections under fluoroscopic guidance with reduction of the patient's presenting pain at the conclusion of the procedure. Dictated by: Eron Cyr M.D. The radiology attending physician has personally reviewed this study, and had reviewed and/or edited this written report and agrees with it. Electronically signed by: Myron Willams M.D. Zarina Carroll MD [facility] FLUOROSCOPY PROCEDURES Final Result * (ABNORMAL) eGFR (03/21/2025 [...] was last reviewed 2021. Testing performed by: [facility], [address] [place] [address]., [id number] Blood 03/21/2025 10:4 9 PM CDT 03/21/2025 10:57 PM CDT Misti Tobar NP LAB BLOOD ORDERABLES Final Resul t [facility] [address] [facility] Department [place] [address] * Hepatitis panel, acute Blood (08/10/2024 12:01 PM CDT) Hep A IgM Nonreactive Nonreactive Hep B core IgM Nonreactive Nonreactive [facility] Hep C Ab Nonreactive Nonreactive [facility] Comment:Antibodies to HCV no t detected. Does NOT exclude the possibility of recent exposure to HCV. Current interpretive data was last revised on 22 HepBsAg Nonreactive Nonreactive [facility] Blood 08/10/2024 12:0 1 PM CDT 08/10/2024 2:23 PM CDT Zarina Carroll MD LAB MICROBIOLOGY - GENERAL ORDER TATO Final Result [facility] [address] [facility] Department of [place] [address] from Last 3 Months or Most Recently Relevant to Health Maintenance Insurance [id number] [place] [address] MEDICARE ADVANTAGE [place] [id number] [place] [address] MEDICARE ADVANTAGE IDPA [facility] MEDICARE ADVANTAGE IDCT Advance Directives For more information, please contact: [phone] * Full Code (Latest Code Status on File) Date Activated Date Inactivated Comments 05/30/2023 2:42 AM 06/01/2023 6:25 PM * Full Code Date Activated Date Inactivated Comments 05/30/2023 12:31 AM 05/30/2023 2:42 AM * Full Code Date Activated Date Inactivated Comments 05/05/2022 2:33 PM 05/14/2022 7:09 PM Care Teams Buckle Strap Puncher Relationship Specialty Start Date End Date Jn Velásquez MD [address] [place] [address] PCP - General Family Medicine 07/02/25 Waqas De Leon MD Internal Medicine 11/20/21 Cortney Corona MD Referring Physician Surgery 05/14/22 Daniel Go MD [address] [place] [address] Consulting Physician Interventional Cardiology 05/31/23 [place] [address] [facility] [address] [place] [address] Consulting Physician Pulmonary Disease 05/31/23 Jovan Roblero MD [address] [place] [address] Referring Physician Internal Medicine 07/02/25
--- OUTSIDE RECORDS SUMMARY | 2025-07-15 14:16 | XMS_ITS | Clinical Summary ---
Author Organization [facility] on Address [address] [place] [address] SHARI Carmen [address] Phone Care Team Providers Care Rn Oncology Research Name Role Phone Unavailable Primary Care Provider Unavailabl e Encounters Date Type Department Care Team Description 07/09/2025 External Device Data [facility] ABSTRACTION Provider, Abstract 06/25/2025 External Device Data [facility]STRACTION Provider, Abstract 05/22/2025 External Device Data [facility] ABSTRACTION Provider, Abstract 05/22/2025 External Device Data [facility] ABSTRACTION Provider, Abstract 05/22/2025 External Device Data [facility] ABSTRACTION Provider, Abstract 05/21/2025 External Device Data [facility] ABSTRACTION Provider, Abstract 04/24/2025 External Device Data [facility] ABSTRACTION Provider, [...] 1997 OSTEOPOROSIS SCREENING 2012 PNEUMOCOCCAL VACCINE 50+ YEA RS (2 of 2 - PPSV23, PCV20, or PCV21) 01/21/2016 11/26/2015 RSV VACCINE (60+ or ) (1 - 1-dose 75+ series) 2022 INFLUENZA VACCINE (#1) 2025 Insurance
[2025-07-15 14:36] LABS: Estimated Glomerular Filt Rate 23
== END 2025-07-15 14:11 | disposition home or self-care (01) ==
PROVIDERS: PCP Family Medicine; Visit Provider Nurse Practitioner Family
DX: D35.00 Benign neoplasm of unspecified adrenal gland (principal)
CPT/HCPCS: 74150

== ENCOUNTER 2025-09-12 12:48 | Outpatient (CLI) | payer MEDICARE, MEDICAID, SELFPAY ==
--- OUTSIDE RECORDS SUMMARY | 2009-07-01 07:15 | XMS_ITS | Continuity of Care Document ---
Author Organization [facility] Address [address] [address] [place] [address] Phone Care Team Providers Care Hr Recruiter Name Role Phone Matthew OD, Manuel Unavailable Unavailable Procedures Procedure Date Eye Exam & Treatment No Script Refraction Advance Directives Directive Yes / No Effective Date File Name No Information Encounters Encounter Description Practice Location Reason(s) For Visit Diagnoses Date Provider Providers Copied on Encounter [facility], [address] [place] [address] [address], [place], [place], [id number], [place] tel:[phone] [facility] [place] No Information 5-200 9 Matthew OD Manuel. [address] , [address], [place], [address], [place]. tel:[phone] Family History Family Member Type Diagnosis Age At Onset No Information Payers Payer name Insurance type Covered democrat ID Authoriza tion(s) [place] [id number] Social History Type Description Quantity Date Captured Comments Sex Female Smoking Status No Information Chief Complaint And Reason For Visit No Information Reason For Referral Reason For Referral No Information History Of Present Illness Encounter Date Complaint History Of Prese nt Illness No Information Functional Status Date Functional Assessmen t No Information Instructions Date Instruction Additional Infor mation No Information Assessments Type Assessment Date No Information Patient Care Teams Name Effective Dates (start - stop) Status Members No Information
--- OUTSIDE RECORDS SUMMARY | 2014-08-30 02:00 | XMS_ITS | Continuity of Care Document ---
Author Organization [facility] Address [address] [place] [id number] Phone Care Team Providers Care Car Tester Name Role Phone [facility] Eye Unavailable Valeria vailable Procedures Procedure Date REVISION OF UPPER EYELID REVISION OF UPPER EYELID No Proph IV ABX No Adverse Event Advance Directives Directive Yes / No Effective Date File Name No Information Encounters Encounter Description Practice Location Reason(s) For Visit Diagnoses Date Provider Providers Copied on Encounter [facility], [address] [place] [address], [id number], tel:[phone] [facility] No Information [facility]. [address] [place] [address], [id number]. tel:[phone] Referring Provider: Дмитрий Amin, [address] [place] [address], [id number]. tel:[phone] Family History Family Member Type Diagnosis Age At Onset No Information Payers Payer name Insurance type Covered democrat ID Authoriza tion(s) No Information Social History Type Description Quantity Date Captured [...]
--- OUTSIDE RECORDS SUMMARY | 2016-07-19 05:00 | XMS_ITS | Continuity of Care Document ---
Author Organization [facility] Address [address] [place] [address] [address] [place] [address] Phone Care Team Providers Care Architectural Sales Consultant Name Role Phone Dahm OTR/L, CHT, Christi Unavailable Unavailab le Procedures Procedure Date THERAPEUTIC EXERCISES MANUAL THERAPY FUNC ACTIVITY HOT/COLD PACK Progress Note THERAPEUTIC EXERCISES MANUAL THERAPY FUNC ACTIVITY HOT/COLD PACK THERAPEUTIC EXERCISES NEUROMUSCULAR RE-ED MANUAL THERAPY FUNC ACTIVITY HOT/COLD PACK THERAPEUTIC EXERCISES NEUROMUSCULAR RE-ED MANUAL THERAPY FUNC ACTIVITY HOT/COLD PACK THERAPEUTIC EXERCISES MANUAL THERAPY FUNC ACTIVITY HOT/COLD PACK THERAPEUTIC EXERCISES MANUAL THERAPY FUNC ACTIVITY ORTHOTIC FITTING /COLD PACK THERAPEUTIC EXERCISES MANUAL THERAPY FUNC ACTIVITY HOT/COLD PACK THERAPEUTIC EXERCISES MANUAL THERAPY FUNC ACTIVITY HOT/COLD PACK THERAPEUTIC EXERCISES MANUAL THERAPY FUNC ACTIVITY HOT/COLD PACK THERAPEUTIC EXERCISES MANUAL THERAPY FUNC ACTIVITY THERAPEUTIC EXERCISES MANUAL THERAPY FUNC ACTIVITY THERAPEUTIC EXERCISES MANUAL THERAPY FUNC ACTIVITY HOT/COLD PACK Progress Note THERAPEUTIC EXERCISES MANUAL THERAPY FUNC ACTIVITY THERAPEUTIC EXERCISES NEUROMUSCULAR RE-ED MANUAL THERAPY FUNC ACTIVITY HOT/COLD PACK THERAPEUTIC EXERCISES MANUAL THERAPY HOT/COLD PACK THERAPEUTIC EXERCISES MANUAL THERAPY THERAPEUTIC EXERCISES MANUAL THERAPY THERAPEUTIC EXERCISES MANUAL THERAPY HOT/COLD PACK OT EVALUATION THERAPEUTIC EXERCISES Longarm Advance Directives Directive Yes / No Effective Date File Name No Information Encounters Encounter Description Practice Location Reason(s) For Visit Diagnoses Date Provider Providers Copied on Encounter [facility] [address], [id number], tel:[phone] [place] No Information Sep- [address] [facility], [facility] [address], [place], [facility], [place]. tel:[phone] Referring Provider: Waqas Clemons [facility] 6A/6B/12A, [place], [address]. tel:[phone] [place] [address], [id number], tel:[phone] Neil [place] No Information Sep-0 8-201 [address] [facility], [facility] [address], [place], [facility], . tel:[phone] Referring Provider: Waqas Clemons [address] [facility] [address] 6A/6B/12A, [place], [address]. tel:[phone] [place] [address], [id number], tel:[phone] [place] No Information 6 Bagautdinova Jocelin. [address] [place] [address], [address], [facility], . tel:[phone] Referring Provider: Waqas Clemons, [address] [facility] [address] 6A/6B/12A, [place], [address]. tel:[phone] [place] [address], [id number], tel:[phone] [place] No Information 6 Bagautdinova Jocelin. [address] [place] [address], [address], [facility], [place]. tel:[phone] Referring Provider: Waqas Clemons, [address] [facility] [address] 6A/6B/12A, [place], [address]. tel:[phone] [place] [address], [id number], tel:[phone] [place] No Information 6 Bagautdinova Jocelin. [address] [place] [address], [facility] [address], [place], [facility], [place]. tel:[phone] Referring Provider: Waqas Clemons, [address] [facility] [address] 6A/6B/12A, [place], [address]. tel:[phone] [place] [address], [id number], tel:[phone] [facility] No Information 6 Ebony Barraza. [address] [place] [address], [address], [place], [facility], . tel:[phone] Referring Provider: Christopher Dy, [address] 6A/6B/12A, [place], [address]. tel:[phone] [place] [address], [id number], tel:[phone] Neil [place] No Information 0 8-201 6 Dahm Christi. [address] [place] [address], [facility] [address], [place], [facility], . tel:[phone] Referring Provider: Waqas Clemons, [address] 6A/6B/12A, [place], [address]. tel:[phone] [place] [address], [id number], tel:[phone] Neil Bern[place] No Information 0 3-201 6 Dahm Christi. [address] [place] [address], [address], [facility], . tel:[phone] Referring Provider: Waqas Clemons, [address] 6A/6B/12A, [place], [address]. tel:[phone] [place] [address], [id number], tel:[phone] Neil Bernal No Information 0 1-201 6 Dahm Christi. [address] [place] [address], [address], [facility], . tel:[phone] Referring Provider: Waqas Clemons, [address] 6A/6B/12A, [place], [address]. tel:[phone] [place] [address], [id number], tel:[phone] Neil Bernal No Information 2 7-201 6 Dahm Christi. [address] [place] [address], [address], [place], [facility], . tel:[phone] Referring Provider: Waqas Clemons, [address] 6A/6B/[place], [address]. tel:[phone] [place], [place] [address] [place] [address], [id number], tel:[phone] Neil Bernal No Information 0-201 6 Dahm Christi. [address] [place] [address], [address], [place], [facility], . tel:[phone] Referring Provider: Delgado Roblero[address] [facility] [address] 6A/6B/12A, [place], [address]. tel:[phone] [place], [place] [address], [place], [id number], tel:[phone] Neil Bernal No Information 8201 6 Dahm Christi. [address] [place] [address], [address], [place], [facility], . tel:[phone] Referring Provider: Delgado Roblero[address] [facility] [address] 6A/6B/12A, [place], [address]. tel:[phone] [place] [address]e [address] [place] [address], [id number], tel:[phone] Neil Bernal No Information 4-201 6 Dahm Christi. [address] [place] [address], [address], [place], [facility], [place]. tel:[phone] Referring Provider: Delgado Roblero[address] [facility] [address] 6A/6B/12A, [place], [address]. tel:[phone] [place], [place] [address]e [address] [place] [address], [id number], [place] tel:[phone] Neil Bernal No Information 1-201 6 Dahm Christi. [address] [place] [address], [address], [address], [place]. tel:[phone] Referring Provider: Delgado Roblero[address] [facility] [address] 6A/6B/12A, [place], [address]. tel:[phone] [place] [address] [address], [place], [place], [id number], [place] tel:[phone] Neil [place] No Information 6 Dahm Christi. [address] [place] [address], [address], [place], [place], [facility], . tel:[phone] Referring Provider: Waqas Clemons, [address] 6A/6B/12A, [place], [address]. tel:[phone] [place] [address] [address], [place], [place], [id number], [place] tel:[phone] Neil [place] No Information 6 Dahm Christi. [address] [place] [address], [address], [place], [facility], . tel:[phone] Referring Provider: Waqas Clemons, [address] 6A/6B/12A, [place], [address]. tel:[phone] [place] [address] [address], [place], [place], [id number], [place] tel:[phone] Neil [place] No Information 6 Werner Jacinto. . tel:[phone] Referring Provider: Waqas Clemons, [address] 6A/6B/12A, [place], [address]. tel:[phone] [place] [address] [address], [place], [place], [id number], [place] tel:[phone] [facility] No Information 6 Dahm Christi. [address] [place] [address], [address], [place], [place], [facility], [place]. tel:[phone] Referring Provider: Waqas Clemons, [address] 6A/6B/12A, [place], [address]. tel:[phone] [place] [address] [address], [place], [place], [id number], [place] tel:[phone] Neil Bernal Pain in left elbowEffusion, left elbowStiffness of left elbow, not elsewhere classifiedDisp fx of head of left radius, init for clos fx 0[address] [facility], [address], [place], [address], [place]. tel:[phone] Referring Provider: Waqas Clemons, [address] [place] [address] 6A/6B/12A, [place], [address]. tel:[phone] Family History Family Member Type Diagnosis Age At Onset No Information Payers Payer name Insurance type Covered constitution party ID Emmett ramirez(s) [facility] [place] [employer] CI [id number] [facility] [id number] Social History Type Description Quantity Date Captured [...]
--- OUTSIDE RECORDS SUMMARY | 2018-11-14 08:35 | XMS_ITS | Continuity of Care Document ---
Author Organization [facility] Address [address] [place] [address] Phone Care Team Providers Care Braker Passenger Train Name Role Phone Randi Matos MD Unavailable Unavailabl e Allergies, Adverse Reactions, Alerts Substance Reaction Status Criticality No Known Allergies Active No Inform ation Medications Medication Instructions Dosage Effective Dates (start - stop) Status Comments Lotemax 0.5 % eye drops,suspension instill 1 drop by ophthalmic route 4 times every day into affected eye(s) 1.00 drop - Active BENICAR (unknown strength) Not Available - Active LOVASTATIN (unknown strength) Not Available - Active HYDROCHLOROTHIAZIDE (unknown strength) Not Available - Active GLUCOSAMINE SULFATE (unknown strength) Not Available - Active FOSAMAX (unknown strength) Not Available - Active ESTRACE (unknown strength) Not Available - Active CENTRUM SILVER (unknown strength) Not Available - Active CALCIUM (unknown strength) Not Available - Active Procedures Procedure Date EYE EXAM ESTABLISHED [facility] EYE EXAM & TREATMENT REFRACTION EYE EXAM & TREATMENT POSTOP FOLLOW-UP VISIT POSTOP FOLLOW-UP VISIT REVISION OF UPPER EYELID EYE EXAM ESTABLISHED PAT EYE EXAM & TREATMENT OFFICE/OUTPATIENT VISIT, NEW Advance Directives Directive Yes / No Effective Date File Name No Information Encounters Encounter Description Practice Location Reason(s) For Visit Diagnoses Date Provider Providers Copied on Encounter [facility], [address] [place], [address], tel:[phone] [place] possible infection (chief complaint) Chronic giant papillary conjunctivitis, bilateral Nov-0 8 9 Carlo Bacon. [address] [place] [address], [address] [place] [address], . tel:[phone] Referring Provider: Randi Matos, [address] [place] [address], [id number] . tel:[phone] [facility], [address] [place] [address], [facility], tel:[phone] [place] Cataracts/ LINO (chief complaint) Age-related nuclear cataract, bilateralDry eye syndrome of bilateral lacrimal glandsHypermetropia , bilateralPresbyopia Feb-2 8 Annabel Webb. [address] [place] [address], [address] [place] [address], . tel:[phone] Referring Provider: Nani Castillo, [address] [place] [address], [address] [place] [address] . tel:[phone] [facility], [address] [place] [address], [facility], tel:[phone] [place] 1 year va check (chief complaint) PresbyopiaHypermetr opia, bilateralAge-relate d nuclear cataract, bilateralDry eye syndrome of bilateral lacrimal glands Oct-0 6 Carlo Bacon. [address] [place] [address], [address] [place] [address], . tel:[phone] Referring Provider: Randi Matos, [address] [place] [address], [id number] . tel:[phone] [facility], [address] [place] [address], [facility], tel:[phone] [place] No Information 0 5 Robbie Choe. [address] [place] [address], [address] [place] [address], . tel:[phone] Referring Provider: Randi Matos, [address] [place] [address], [id number] . tel:[phone] [facility], [address] [place] [address], [facility], tel:[phone] [place] No Information Nov-0 4 Robbie Дмитрий. [address] [place] [address], [address] [place] [address], . tel:[phone] Referring Provider: Дмитрий Amin, [address] [place] [address], [id number] . tel:[phone] [facility], [address] [place] [address], [facility], tel:[phone] [facility] No Information Oct-2 4- 4 Robbie Дмитрий. [address] [place] [address], [address] [place] [address], . tel:[phone] [facility] [place], [address] [place] [address], [facility], tel:[phone] [place] No Information Sep-0 4 Robbie Дмитрий. [address] [place] [address], [address] [place] [address], . tel:[phone] Referring Provider: Randi Matos, [address] [place] [address], [address] [place] [address] . tel:[phone] [facility] [place], [address] [place] [address], [facility], tel:[phone] [place] No Information Jun- 4 Carlo Bacon. [address] [place] [address], [address] [place] [address], . tel:[phone] Referring Provider: Randi Matos, [address] [place] [address], [address] . tel:[phone] OFFICE/OUTPA TIENT VISIT, [facility], [address] [place] [address], [facility], tel:[phone] [place] No Information Dec- 2- 3 Carlo Bacon. [address] [place] [address], [address] [place] [address], . tel:[phone] Referring Provider: Randi Matos, [address] [place] [address], [id number] . tel:[phone] Family History Family Member Type Diagnosis Age At Onset Problem (finding) Family history of catar act Problem (finding) Family history of Diabe mel mellitus Payers Payer name Insurance type Covered constitution party ID Authoriza james(s) Medicare MB [id number] Social History Type Description Quantity Date Captured Comments Alcohol Use Details Unknown Caffeine Use Details Unknown Tobacco Use Status Non-smoker Smoking Status Never smoker Sex Female Chief Complaint And Reason For Visit From encounter dated '11/14/2018 14:35'. possible infection (chief complaint). Description: The 73 year old female presents for evaluation of possible infection. Pt c/o not being able to wear CTL in OD. Pt c/o FBS OD only when she wears herCTL. Pt c/o white and green matter. Reason For Referral Reason For Referral No Information History Of Present Illness Encounter Date Complaint History Of Prese nt Illness possible infection The 73 year o ld female presents for evaluation of possible infection. Pt c/o not being able to wear CTL in OD. Pt c/o FBS OD only when she wears her CTL. Pt c/o white and green matter. Cataracts/LINO The 72 year old female presents for evaluation of Cataracts/LINO in the right eye and left eye. Patient c/o OS watering all the time. Uses ATs 2x a week. GTTS: Equate dry eye relief 1 year va check The 71 year old female presents for evaluation of 1 year va check. Patient complaining of blurry vision OU even with her contacts in. She denies any pain, floaters or flashes of light. She states she does not sleep in her CTLs. Functional Status Date Functional Assessmen t No Information Instructions Date Instruction Additional Infor ashley Impression/Plan Impression/Plan - 72 y/o female presents w/ NSC OU, LINO OU, and RE. S/p Bleph w/ EC. 1. NSC OU --not VS--Dx explained in detail. --Surgery not yet indicated. 2. LINO OU--Will follow. Pt to call with a change in vision. --Dx discussed with patient. --Recommend increasing ATs PRN-->2-3x/day--Discussed restasis/xiidra, punctal plugs, warm compresses and fish oil.--If tearing continues/gets worse, will perform D&I procedure to check for punctal stenosis in the office --Pt to call back in 1-2 weeks if needed3-4. RE --No new glasses or CTLs rx given per pt's request--Pt also being followed by [facility] Follow up - Return i n 1 year with Jon Azul DO for Complete Exam. Impression/Plan - Di agnosis of cataracts explained in detail, as well as risks, benefits, alternatives to cataract surgery. Surgery not yet indicated or desired. Follow. Call for change in vision. Discussed with patient the nature of dry eyes and its relationship at times to mild lid margin inflammation, also termed miebomitis. Discussed with patient to use artificial tears, warm lid soaks, fish oil capsules, and consider Restasis. Discussed all diagnoses including refractive error in detail with patient. Encouraged use of safety glasses when indicated, sunglasses and regular eye check ups. New glasses Rx was given today (or per patient's wishes.)CTL RX written [employer] Aqua 8.6OD: +2.25 SPHOS: +5.25 SPH Follow up - Return i n 18 months for full exam and CTL check up. Assessments Type Assessment Date assessment Chronic giant papillary conjunct ivitis, bilateral Patient Care Teams Name Effective Dates (start - stop) Status Members No Information
--- OUTSIDE RECORDS SUMMARY | 2020-08-19 06:30 | XMS_ITS | Continuity of Care Document ---
Author Organization [facility] Address [address] [place] [address] Phone Care Team Providers Care Biology Lecturer Name Role Phone Marilyn PT, DPT, Jonathon Unavailable Unavailable Procedures Procedure Date PT Evaluation Moderate Complexity Neuromuscular Re-Ed Advance Directives Directive Yes / No Effective Date File Name No Information Encounters Encounter Description Practice Location Reason(s) For Visit Diagnoses Date Provider Providers Copied on Encounter [facility], [address], [place], [place], [id number], tel:[phone] [place] No Information 0 Marilyn Holt. . [facility] [place], [address]. tel:[phone] Family History Family Member Type Diagnosis Age At Onset No Information Payers Payer name Insurance type Covered libertarian ID Authoriza tiguzman(s) [employer] Medicare Replacement 16 [id number] Social History Type Description Quantity Date Captured Comments Alcohol Use Details Unknown Caffeine Use Details Unknown Tobacco Use Status No Information Smoking Status No Information Non-Smoking Tobacco Use Details : No Details Available : No Details Available : No Details Available : No Details Available Sex Female Vital Signs Date / Time: Height Weight BMI Pulse Rate Blood Pressure Temperature Respiratory Rate Body Surface Area Head Circumference Head Circ. Percentile Wt./Stephen. Percentile BMI percentile Pulse Ox Inhaled Ox 6:13 PM 62.00 in 92.080 kg (203.00 lbs) 37.1 3 kg/m eter (2) 2.00 meter(2) 6:14 PM 62.00 in 92.080 kg (203.00 lbs) 37.1 3 kg/m eter (2) 2.00 meter(2) Chief Complaint And Reason For Visit No Information Reason For Referral Reason For Referral No Information History Of Present Illness Encounter Date Complaint History Of Prese nt Illness No Information Functional Status Date Functional Assessmen t No Information Instructions Date Instruction Additional Infor mation Giving encouragement to exercise Related to Overweight Giving encouragement to exercise Related to Overweight Giving encouragement to exercise Related to Overweight Assessments Type Assessment Date No Information Patient Care Teams Name Effective Dates (start - stop) Status Members No Information
--- OUTSIDE RECORDS SUMMARY | 2025-06-26 08:15 | XMS_ITS ---
Author Organization [facility] Address [facility] [facility] [address] [facility] [address] [place] [address] Care Team Providers Care Orthopaedic Nurse Name Role Phone Sandie Irwin Unavailable [phone] REASON FOR VISIT follow-up Social History Sex Assigned At : Social History Observation Description Sex Assigned At Female Encounters Encounter Location Date Provider Diagnosis [facility] [employer] [place] [address] [facility] [address] [facility] [address] [place] [address] 06/26/2025 Sandie Irwin Plan Of Treatment Next Appt Details Provider Name:Sandie chino, 09/16/2025 02:45:00 PM, [address], [facility] [address], [place], [address], Progress Notes * JESU HARLEY LDOB: [birth year] (80 yo F)Acc No.[id number]:06/26/2025 Patient: Magnus CHURCHILL JESU Omer Provider: CHRISTIANO ROWELL :1945 A ge:79 Y S ex:Female Date:06/26/2025 Phone: Address:[address], [address], [place], [place]-[address] Subjective: * Chief Complaints: * F ollow-up * Electronic signature of CHRISTIANO Hurley on 2025 at 07:41 PM STENCILER Sign off status: Pending * Provider: CHRISTIANO ROWELL Date: 0 06/26/2025 Generated for Александр wooten/Stevie/eTransmitting on: 1 11/12/2024 07:41 PM STENCILER
[2025-09-12 14:32] LABS: NT Pro B Type Natriuretic Pept 231 pg/mL (19.9-100)
--- OUTSIDE RECORDS SUMMARY | 2025-09-12 19:41 | XMS_ITS | Patient Health Record ---
Author Organization [facility] [employer] Address [address] [place] [address] Care Team Providers Care Water Gas Operator Name Role Phone aSndie Irwin [phone] Allergies Allergen (clinical drug ingredient) Drug/Non Drug Allergy documented on EMR Reaction Allergy Type Onset Date Status lisinopril Lisinopril Unknown Drug Allergy 11/17/2023 Acti ve Reason For Referral No Information Medications Medication SIG (Take, Route, Frequency, Duration) Notes Start Date End Date Status Magnesium Oxide (Elemental) 400 MG Tablet Oral *Reorder from [employer] for eRx and Interaction Alerts* 03/19/2024 Active amLODIPine Besylate 10 MG Tablet Oral 03/19/2024 Active Unithroid 88 mcg Tablet Oral 03/19/2024 Active hydrOXYzine HCl 10 MG Tablet TAKE 1 TABLET BY MOUTH TWICE DAILY NEEDED; Duration: 30 Active Mounjaro 10 MG/0.5ML Solution Pen-injector Subcutaneous *Reorder from [facility] for eRx and Interaction Alerts* 03/19/2024 Active Azithromycin 250 MG Tablet Oral 03/19/2024 Active Rexulti 0.5 MG Tablet 1 tablet Orally Once a day; Duration: 90 days 07/22/2025 Active oxyBUTYnin Chloride ER 10 MG Tablet Extended Release 24 Hour Oral 03/19/2024 Active Albuterol Sulfate (2.5 MG/3ML) 0.083% Nebulization Solution Inhalation 03/19/2024 Active PREGABALIN 200 MG CAPSULE *Reord er from [employer] for eRx and Interaction Alerts* 03/19/2024 Active Breztri Aerosphere 160-9-4.8 MCG/ACT Aerosol Inhalation *Reorder from [facility] for eRx and Interaction Alerts* 03/19/2024 Active hydroCHLOROthiazide 25 MG Tablet Oral 03/19/2024 Active Isosorbide Mononitrate ER 30 MG Tablet Extended Release 24 Hour Oral 03/19/2024 Active Farxiga 10 MG Tablet Oral 03/19/2024 Active Trintellix 20 MG Tablet 1 tablet Oral On ce a day; Duration: 90 days 07/22/2025 Active Immunizations Vaccine Route Administration Date Status Comme [...] Severe recurrent major depression without psychotic features (55666131) Major depressive disorder, 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 Problem Generalized anxiety disorder (37352231) Generalized anxiety disorder (F41.1) Active confirmed Problem Primary insomnia (8854271) Primary insomnia (F51.01) Active confirmed Vital Signs Heart Rate 74 /min 07/22/2025 Height-cm 162.56 cm 07/22/2025 Blood pressure diastolic 67 mm Hg 07/22/2025 Weight-kg 100.34 kg 07/22/2025 Height 64.00 in 07/22/2025 Blood pressure systolic 121 mm Hg 07/22/2025 Weight 221.2 lbs 07/22/2025 BMI 37.96 kg/m2 07/22/2025 Encounters Encounter [facility] Date [facility] [place] [address] [address] [facility] [address] [address] 01/21/2025 Sandie Irwin Benign essential HTN I10 ; Encounter for screening for cardiovascular disorders Z13.6 ; Dietary counseling and surveillance Z71.3 ; Encounter for screening for depression Z13.31 ; Major depressive disorder, recurrent severe without psychotic features F33.2 ; Generalized anxiety disorder F41.1 and Primary insomnia F51.01 [facility] [employer] [place] [address] [address] [facility] [address] [address] 05/01/2025 Sandie Dc Major depressive disorder, recurrent severe without psychotic features F33.2 ; Generalized anxiety disorder F41.1 ; Encounter for screening for depression Z13.31 ; Benign essential HTN I10 ; Encounter for screening for cardiovascular disorders Z13.6 ; Dietary counseling and surveillance Z71.3 and Primary insomnia F51.01 [facility] [place] [address] [address] [facility] [address] [address] 07/22/2025 Sandie Dc Major depressive disorder, recurrent severe without psychotic features F33.2 and Generalized anxiety disorder F41.1 [facility] [address] [address] 03/29/2025 Sandie Irwin [place] [address] [address] [facility] [address] [address] 05/07/2025 Sandie Irwin [place] [address] [address] [facility] [address] [address] 05/21/2025 Sandie Dc Major depressive disorder, recurrent [...] severe without psychotic features (ICD-10 - F33.2) 07/22/2025 Major depressive disorder, recurrent severe without psychotic features (ICD-10 - F33.2) Common side effects to SSRI medications include headaches, dry mouth/eye, GI upset (including indigestion, nausea, diarrhea), sleeping problems (insomnia or drowsiness), decreased libido, blurred vision, dizziness. Generally, side effects will subside or lessen with time and are common during drug initiation and dose changes. If they persist please contact the office. 07/22/2025 Generalized anxiety disorder (ICD-10 - F41.1) 05/01/2025 Encounter for screening for depression (ICD-10 [...] F51.01) 01/21/2025 Primary insomnia (ICD-10 - F51.01) 01/21/2025 [...] of psychotropic medications. -Crisis prevention hotline 988. 07/22/2025 Other Start Rexulti 0.5mg daily for depression Patient educated on all medications including potential [...] therapeutic effects of psychotropic medications. -[facility]. Plan Of Treatment Next Appt Details Provider Name:Sandie chion, 09/16/2025 02:45:00 PM, [address], [facility] [address], [place], [address], Insurance Providers Payer Name Payer Address Payer Phone Subscriber Number Group Number Insured Name Patient Relationship to Insured Coverage Start Date Coverage End Date [facility] Medicare Replacement/ Advantage - Ppo [address] [address] [place] [address] [id number] JESU HARLEY Self - patient is the insured [place] [address] [address] [place] [address] [id number] JESU HARLEY Self - patient is the [...] Surgical History Surgery Date(Month/Year) Removal of gallbladder (24279) Cosmetic surgery 11/07/1999
--- OUTSIDE RECORDS SUMMARY | 2025-09-12 19:41 | XMS_ITS | Clinical Summary ---
Author Organization [facility] on Address [address] [place] [address] SHARI Carmen [address] Phone Care Team Providers Care Weaver Tire Cord Name Role Phone Unavailable Primary Care Provider Unavailabl e Encounters Date Type Department Care Team Description 08/27/2025 External Device Data [facility] ABSTRACTION Provider, Abstract 07/09/2025 External Device Data [facility] ABSTRACTION Provider, [...] series) 2022 INFLUENZA VACCINE (#1) 2025 [place] [address]
--- OUTSIDE RECORDS SUMMARY | 2025-09-12 19:41 | XMS_ITS | Encounter Summary ---
Author Organization [facility] Healthcare Address [address] [place] [address] Care Team Providers Care Survey Operations Director Name Role Phone Waqas De Leon MD Unavailable [phone] Cortney Corona MD Unavailable [phone] Daniel Go MD Unavailable [phone] James Cifuentes MD Unavailable Jovan Roblero MD Unavailable [phone] Jn Velásquez MD Primary Care Provider [phone] Encounter Details Date Type Department Care Team (Late st Contact Info) Description 07/04/2025 Documentation [facility] Radiation Oncology [address] [facility] [place] [address] Renaldo Loomis, RN Social History Tobacco Use [...] often do you attend chur ch or caodaism services? 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 Gender Identity Not on file Sexual Orientation Not on file documented as of this encounter Plan of Treatment Not on file documented as of this encounter Visit Diagnoses Not on filedocumented in this encounter Care Teams Survey Operations Director Relationship Specialty Start Date End Date Jn Velásquez MD [address] [place] [address] PCP - General Family Medicine 07/02/25 Waqas De Leon MD Internal Medicine 11/20/21 Cortney Corona MD Referring Physician Surgery 05/14/22 Daniel Go MD [address] [place] [address] Consulting Physician Interventional Cardiology 05/31/23 [place] [address] [facility] [address] [place] [address] Consulting Physician Pulmonary Disease 05/31/23 Jovan Roblero MD [address] [place] [address] Referring Physician Internal Medicine 07/02/25 documented as of this encounter
--- OUTSIDE RECORDS SUMMARY | 2025-09-12 19:41 | XMS_ITS | Encounter Summary ---
Author Organization [facility] Address [address] [place] [address] Phone Care Team Providers Care Cco & President Name Role Phone Waqas De Leon MD Unavailable Cortney Corona MD Unavailable [phone] Daniel Go MD Unavailable [phone] James Cifuentes MD Unavailable Jovan Roblero MD Unavailable Jn Velásquez MD Primary Care Provider Encounter Details Date Type Department Care Team (Late st Contact Info) Description 08/12/2025 Results Follow-Up [facility] Medicine Endocrinology Metabolism and Lipid [address], [address] [place] [address] Valery Chakraborty MD [address] [facility] [address] [place] [address] ACTH, Cortisol baseline, Cortisol 30 min, Cortisol 60 min Social History Tobacco Use Types Packs/Day Years [...] and heating? Not hard at all 05/31/2023 PRAPARE - Transportation Answer Date Re [...] in a snf (including now)? No 05/31/2023 Hunger Vital Sign Answer Date Recorded Within the past 12 months, y ou worried that your food would run out before you got the money to buy more. Never true 10/01/20 25 Within the past 12 months, t he food you bought just didn't last and you didn't have money to get more. Never true 08/07/2025 Personal Safety Answer Date Recorded Have you ever been in or are you currently in a harmful physical or emotional relationship or is someone making you feel afraid or unsafe? 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 Mills, Your ACTH stimulation test came back normal (normal is a 30 or 60 minute cortisol > 14-15) whichmeans you are making enough cortisol on your own. Take care, JS documented in this encounter Plan of Treatment Not on file documented as of this encounter Visit Diagnoses Not on filedocumented in this encounter Care Teams Cco & President Relationship Specialty Start Date End Date Jn Velásquez MD [address] [address] PCP - General Family Medicine 07/02/25 Waqas De Leon MD Internal Medicine 11/20/21 Cortney Corona MD Referring Physician Surgery 05/14/22 Daniel Go MD [address] [place] [address] Consulting Physician Interventional Cardiology 05/31/23 [place] [address] [place] [address] Consulting Physician Pulmonary Disease 05/31/23 Jovan Roblero MD [address] [place] [address] Referring Physician Internal Medicine 07/02/25 documented as of this encounter
--- OUTSIDE RECORDS SUMMARY | 2025-09-12 19:41 | XMS_ITS | Encounter Summary ---
Author Organization [facility] Address [address] [place] [address] Phone Care Team Providers Care Radio Script Writer Name Role Phone Waqas De Leon MD Unavailable [phone] Cortney Corona MD Unavailable Daniel Go MD Unavailable [phone] James Cifuentes MD Unavailable Jovan Roblero MD Unavailable [phone] Jn Velásquez MD Primary Care Provider [phone] Encounter Details Date Type Department Care Team (Late st Contact Info) Description 08/08/2025 Results Follow-Up [facility] Medicine Rheumatology [address] [facility] [address] [place] [address] Zarina Carroll MD [address] [facility] [address] [place] [address] XR Hips Bilateral 3 or 4 Views Social History Tobacco Use Types Packs/Day Years [...] often do you attend chur ch or mu-ism services? Never 05/31/2023 Do you belong to any clubs o r organizations such as worship groups, unions, fraternal or athletic groups, or [...] a group home (including now)? No 05/31/2023 Hunger Vital Sign Answer Date Recorded Within the past 12 months, y ou worried that your food would run out before you got the money to buy more. 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 Gender Identity Not on file Sexual Orientation Not on file documented as of this encounter Plan of Treatment Not on file documented as of this encounter Visit Diagnoses Not on filedocumented in this encounter Care Teams Radio Script Writer Relationship Specialty Start Date End Date Jn Velásquez MD [address] [place] [address] PCP - General Family Medicine 07/02/25 Waqas De Leon MD Internal Medicine 11/20/21 Cortney Corona MD Referring Physician Surgery 05/14/22 Daniel Go MD [address] [place] [address] Consulting Physician Interventional Cardiology 05/31/23 [place] [address] [address] [facility] [address] [place] [address] Consulting Physician Pulmonary Disease 05/31/23 Jovan Roblero MD [address] [place] [address] Referring Physician Internal Medicine 07/02/25 documented as of this encounter
--- OUTSIDE RECORDS SUMMARY | 2025-09-12 19:41 | XMS_ITS | Encounter Summary ---
Author Organization [facility] Address [address] [place] [address] Phone Care Team Providers Care Hand Edge Bander Name Role Phone Jn Velásquez MD Primary Care Provider [phone] Waqas De Leon MD Unavailable [phone] Waqas De Leon MD Unavailable [phone] Cortney Corona MD Unavailable [phone] Stephanie Morrissey MD Primary Care Provider [phone] Jn Velásquez MD Primary Care Provider [phone] Miscellaneous, Not In File Unavailable Unava ilDaniel Mckeon MD Unavailable [phone] James Cifuentes MD Unavailable [phone] Jovan Roblero MD Unavailable [phone] Jn Velásquez MD Primary Care Provider [phone] Encounter Details Date Type Department Care Team [...] often do you attend chur ch or nondenominational services? Never 05/04/2022 Do you belong to any clubs o r organizations such as sikh groups, unions, fraternal or athletic groups, or [...] on file Legal Sex Female 7:23 PM [employer] Gender Identity Not on file Sexual Orientation [...] documented as of this encounter Care Teams Hand Edge Bander Relationship Specialty Start Date End Date Jn Velásquez MD PCP - General Family Medicine 11/20/21 08/31/22 Stephanie Morrissey MD PCP - General Internal Medicine 09/01/22 05/28/23 Jn Velásquez MD PCP - General Family Medicine 05/29/23 07/01/25 Jn Velásquez MD [address] [address] PCP - General Family Medicine 07/02/25 Waqas De Leon MD Internal Medicine 11/20/21 Waqas De Leon MD Internal Medicine 06/06/19 07/01/25 Cortney Corona MD Referring Physician Surgery 05/14/22 Miscellaneous, Not In File 05/31/23 07/01/25 Daniel Go MD [address] [place] [address] Consulting Physician Interventional Cardiology 05/31/23 [place] [address] [address] [facility] [address] [place] [address] Consulting Physician Pulmonary Disease 05/31/23 Jovan Roblero MD [address] [place] [address] Referring Physician Internal Medicine 07/02/25 documented as of this encounter
--- OUTSIDE RECORDS SUMMARY | 2025-09-12 19:41 | XMS_ITS | Encounter Summary ---
Author Organization [facility] Address [address] [place] [address] Phone Care Team Providers Care Bell Attendant Name Role Phone Jn Velásquez MD Primary Care Provider [phone] Waqas De Leon MD Unavailable [phone] Waqas De Leon MD Unavailable [phone] Cortney Corona MD Unavailable [phone] Stephanie Morrissey MD Primary Care Provider [phone] Jn Velásquez MD Primary Care Provider [phone] Miscellaneous, Not In File Unavailable Unava ilDaniel Mckeon MD Unavailable [phone] James Cifuentes MD Unavailable [phone] Jovan Roblero MD Unavailable [phone] Jn Velásquez MD Primary Care Provider [phone] Encounter Details Date Type Department Care Team [...] on file 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 Gender Identity Not on file Sexual Orientation [...] documented as of this encounter Care Teams Bell Attendant Relationship Specialty Start Date End Date Jn Velásquez MD PCP - General Family Medicine 11/20/21 08/31/22 Stephanie Morrissey MD PCP - General Internal Medicine 09/01/22 05/28/23 Jn Velásquez MD PCP - General Family Medicine 05/29/23 07/01/25 Jn Velásquez MD [address] [address] PCP - General Family Medicine 07/02/25 Waqas De Leon MD Internal Medicine 11/20/21 Waqas De Leon MD Internal Medicine 06/06/19 07/01/25 Cortney Corona MD Referring Physician Surgery 05/14/22 Miscellaneous, Not In File 05/31/23 07/01/25 Daniel Go MD [address] [place] [address] Consulting Physician Interventional Cardiology 05/31/23 [place] [address] [facility] [address] [place] [address] Consulting Physician Pulmonary Disease 05/31/23 Jovan Roblero MD [address] [place] [address] Referring Physician Internal Medicine 07/02/25 documented as of this encounter
--- OUTSIDE RECORDS SUMMARY | 2025-09-12 19:41 | XMS_ITS | Clinical Summary ---
Author Organization [facility] Address [address] [address] Phone Care Team Providers Care Underground Repairer Name Role Phone Jn Velásquez MD Primary Care Provider [phone] Allergies Active Allergy Reactions Criticality Noted Date [...] 0 Active ergocalciferol (VITAMIN D2) 1.25 MG (95326 UT) capsule Take 50,000 Units by mouth [...] sweating 09/21/2015 Shortness of breath 09/21/2015 Tobacco use disorder 09/21/2015 History of substance abuse 09/21/2015 Chronic [...] on file Legal Sex Female 8:46 AM [facility] Gender Identity Not on file Sexual [...] - [place] [employer] [place] Care Teams Underground Repairer Relationship Specialty Start Date End Date Jn Velásquez MD [address] [place] [address] PCP - General Internal Medicine 06/18/20
--- OUTSIDE RECORDS SUMMARY | 2025-09-12 19:41 | XMS_ITS | Clinical Summary ---
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 Name Role Phone Waqas De Leon MD Unavailable Cortney Corona MD Unavailable [phone] Daniel Go MD Unavailable [phone] James Cifuentes MD Unavailable Jovan Roblero MD Unavailable [phone] Jn Velásquez MD Primary Care Provider Allergies Active Allergy Reactions Criticality Noted Date Comments Noe Inhibitors Angioedema,Shortness of breath High 0 02/13/2025 Adhesive Itching,Rash Medium 09/07/2022 Lisinopril Shortness of [...] nightly as needed (insomnia) 0 2 Active ergocalciferol (VITAMIN D) 50,000 unit capsule Take 1 capsule (50,000 Units total) by mouth 2 Active oxybutynin XL (DITROPAN-XL) 10 mg [...] 1 puff daily 30 each 3 Active azelastine (OPTIVAR) 0.05 % ophthalmic [...] mg total) by mouth daily 4 Active ARIPiprazole (ABILIFY) 2 mg tablet Take 1 tablet (2 mg total) by mouth daily 5 Active budesonide (PULMICORT) 0.5 mg/2 mL nebulizer solution INHALE 1 VIAL VIA NEBULIZER ONCE DAILY 5 Active ipratropium-albu teroL (DUO-NEB) 0.5-2.5 mg/3 mL nebulizer solution USE 3 ML VIA NEBULIZER FOUR TIMES DAILY 5 Active lurasidone (LATUDA) 20 mg tablet daily 5 Active minoxidiL (LONITEN) 2.5 mg tablet Take 1 tablet (2.5 mg total) by mouth daily Active potassium chloride ER 20 mEq CR tablet Take 1 tablet (20 mEq total) by mouth daily 5 Active Unithroid 88 mcg tablet Take 1 tablet (88 mcg total) by mouth daily 5 Active azithromycin (ZITHROMAX) 250 mg tablet TAKE 2 TABLETS BY MOUTH THREE TIMES PER WEEK 5 Active furosemide (LASIX) 40 mg tablet Take 1 tablet (40 mg total) by mouth daily 5 Active Active Problems Problem Noted Date Diagnosed Date Low serum cortisol level 07/17/2025 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 Fitch at [facility] on 06/28 Acute pulmonary edema 05/18/20222021 [...] on room air- transition to torsemide per pigment mixer, add low dose potassium supplement. Continue to [...] Encounters Date Type Department Care Team Description 09/05/2025 Orders Only [facility] Orthopaedic Surgery [address] [facility] 6th [place] [address] [place] [address] Dominic Schneider MD Low back pain, unspecified back pain laterality, unspecified chronicity, unspecified whether sciatica present (Primary Dx); Other spondylosis with radiculopathy, lumbosacral region 08/29/2025 10:05 AM CDT - 08/29/2025 11:59 PM CDT Hospital Encounter [facility] [address] [place] [address] Darnell Lowe MD Parwal, Utkarsh, MD Ischial bursitis of left side Discharge Disposition: Discharge to home or self care 08/28/2025 Telephone [facility] [address] [place] [address] Sri Rogers B.A. 08/26/2025 Orders Only [facility] Dominic Schneider MD Low back pain, unspecified back pain laterality, unspecified chronicity, unspecified whether sciatica present 08/12/2025 Results Follow-Up [facility] Endocrinology Metabolism and Lipid [address] [facility] Floor 1, [address] [place] [address] Valery Chakraborty MD ACTH, Cortisol baseline, Cortisol 30 min, Cortisol 60 min 08/08/2025 Results Follow-Up [facility] Rheumatology [address] [facility] 2nd Floor [address] [place] [address] Zarina Carroll MD XR Hips Bilateral 3 or 4 Views 08/07/2025 2:33 PM CDT - 08/07/2025 11:59 PM CDT Hospital Encounter [facility] [address] [place] [address] Zarina Carroll MD Osteoarthritis, unspecified osteoarthritis type, unspecified site Discharge Disposition: Discharge to home or self care 08/07/2025 2:00 PM CDT Office Visit [facility] Rheumatology [address] [facility] 5th [place] [address] [place] [address] Osteoarthritis, unspecified osteoarthritis type, unspecified site (Primary Dx); Ischial bursitis of left side 08/07/2025 10:30 AM CDT Infusion [facility] [address] [facility] 7th [place] [address] Low serum cortisol level (Primary Dx) 08/05/2025 Telephone [facility] Special[facility]fusion [facility] [address] [facility] 7th [place] [address] Lashell Patton RN 07/25/2025 Telephone [facility] Endocrinology Metabolism and Lipid [address] [facility] Floor 1, [address] [place] [address] Nahed Santoro MA 07/22/2025 Telephone [facility] Orthopaedic Surgery [address] [facility] 6th [place] [address] [place] [id number] Dominic Schneider MD 07/22/2025 Orders Only [facility] Orthopaedic Surgery [address] [facility] 6th [place] [address] [place] [address] Dominic Schneider MD 07/17/2025 11:30 AM CDT - 07/17/2025 11:59 PM CDT Hospital Encounter [facility] [address] [place] [address] [address] [place] [phone] Low back pain, unspecified back pain laterality, unspecified chronicity, unspecified whether sciatica present Discharge Disposition: Discharge to home or self care 07/17/2025 11:00 AM CDT Office Visit [facility] Orthopaedic Surgery [address] [place] [address] Medical Office Building [address] [place] [phone] Dominic Schneider MD Low back pain, unspecified back pain laterality, unspecified chronicity, unspecified whether sciatica present (Primary Dx); Lumbar radiculitis 07/17/2025 Orders Only [facility] Endocrinology Metabolism and Lipid [address] [facility] Floor 1, [address] [place] [address] Angelique Muller RN Low serum cortisol level (Primary Dx) 07/16/2025 Telephone [facility] Radiation Oncology [address] [facility] [place] [address] Renaldo Loomis RN 07/16/2025 Telephone [facility] Endocrinology Metabolism and Lipid [address] [facility] Floor 1, [address] [place] [address] Nahed Santoro SANTOS 07/15/2025 1:45 PM CDT - 07/15/2025 11:59 PM CDT Hospital Encounter [facility] ([facility]) [address] [place] [address] Diagnosis unknown Discharge Disposition: Discharge to home or self care 07/15/2025 1:44 PM CDT - 07/15/2025 11:59 PM CDT Hospital Encounter [facility] ([facility]) [address] [place] [address] Discharge Disposition: Discharge to home or self care 07/15/2025 Telephone [facility] Radiation Oncology [address] [place] [address] [place] [address] Renaldo Loomis RN 07/15/2025 Results Follow-Up [facility] Endocrinology Metabolism and Lipid [address] [facility] Floor 1, [address] [place] [address] Valery Chakraborty MD ACTH, Cortisol, Cortisol, saliva, Cortisol, saliva 07/04/2025 Telephone [facility] Radiation Oncology [address] [place] [address] [place] [address] Renaldo Loomis, ALEX 07/04/2025 Documentation [facility] Radiation Oncology [address] [place] [address] [place] [address] Renaldo Loomis RN 07/03/2025 Documentation [facility] Radiation Oncology [address] [place] [address] [place] [address] Yokasta Gutierrez RN 07/02/2025 Telephone [place] [id number] [place] [address] Andreea Taylor RN 06/18/2025 12:40 PM CDT Office Visit [facility] Endocrinology Metabolism and Lipid [address] [facility] Floor 1, [address] [place] [address] Valery Chakraborty MD Hypercortisolemia (Primary Dx); Postoperative hypothyroidism from Last 3 Months Surgical History Surgery [...] (mitral valve prolapse) LV dysfunction Diabetes mellitus hypothyroidism Chronic kidney disease CHF (congestive heart [...] often do you attend chur ch or gnosticist services? Never 05/31/2023 Do you belong to any clubs o r organizations such as yazidism groups, unions, fraternal or athletic groups, or [...] slept in a chcf (including now)? No 05/31/2023 Hunger Vital Sign [...] making you feel afraid or unsafe? Denies 08/29/2025 Comments No Sex and Gender Information Value Date Recorded Sex Assigned at Not on file Legal Sex Female 7:23 PM [employer] Gender Identity Not on file Sexual Orientation Not on file Last Filed Vital Signs Vital Sign Reading Time Taken Comments Blood Pressure 115/62 08/29/2025 12:40 PM CDT Pulse 81 08/29/2025 12:30 PM CDT Temperature 36.1 C (97 F) 08/29/2025 12:30 PM CDT Respiratory Rate 17 08/29/2025 12:40 PM CDT Oxygen Saturation 92% 08/29/2025 12:20 PM CDT Inhaled Oxygen Concentration - - Weight 99 kg (218 lb 4.1 oz) 08/29/2025 10:50 AM CDT Height 154.9 cm (5' 0.98) 08/29/2025 10:50 AM C DT Body Mass Index 41.26 08/29/2025 10:50 AM CDT Plan of Treatment Health Maintenance Due [...] A1C 02/11/2021 08/13/2020 Lipid Panel 01/06/2023 01/06/2022 Covid-19 Vaccine (3 - 2024-2 6 season) 2025 02/20/2021, 01/23/2021 Influenza Vaccine (#1) 2025 08/07/2021, 2019 eGFR 03/21/2026 03/21/2025, 12/0 02/2024, 08/10/2024, Additional history exists Fall Risk Assessment 08/29/2026 08/29/2025 DTaP/Tdap/Td Vaccine (2 - Td or Tdap) 02/04/2031 02/04/2021 Breast Cancer Screening-Mammogram Discontinued 014 Hepatitis C Screening Completed 08/10/2024 Procedures Procedure Name Priority Date/Time Associated Diagnosis Comments US GUIDED ARTHROCENTESIS MAJOR JOINT Schedule Routine, Read Routine (OP Routine) 08/29/2025 12:26 PM CDT Ischial bursitis of left side POCT GLUCOSE DEVICE Routine 08/29/2025 11:37 AM CDT MRI LUMBAR SPINE WO CONTRAST Schedule Routine, Read Routine (OP Routine) 08/26/2025 3:40 PM CDT Low back pain, unspecified back pain laterality, unspecified chronicity, unspecified whether sciatica present XR HIPS BILATERAL 3 OR 4 VW Schedule Routine, Read Routine (OP Routine) 08/07/2025 2:43 PM CDT Osteoarthritis, unspecified osteoarthritis type, unspecified site CORTISOL 60 MIN Timed 08/07/2025 10:22 AM CDT Low serum cortisol level CORTISOL 30 MIN Timed 08/07/2025 10:22 AM CDT Low serum cortisol level CORTISOL BASELINE Timed 08/07/2025 10:22 AM CDT Low serum cortisol level COSYNTROPIN STIMULATION TEST Timed 08/07/2025 10:22 AM CDT Low serum cortisol level ACTH Routine 08/07/2025 10:22 AM CDT Low serum cortisol level XR SPINE LUMBAR COMPLETE 4 OR MORE VIEWS Schedule Routine, Read Routine (OP Routine) 07/17/2025 12:21 PM CDT Low back pain, unspecified back pain laterality, unspecified chronicity, unspecified whether sciatica present CT BODY OUTSIDE CONSULT Routine 07/15/2025 1:45 PM CDT Diagnosis unknown US OUTSIDE CONSULT Routine 07/15/2025 1: 44 PM CDT CORTISOL,SALIVA Routine 07/09/2025 8:48 AM CDT Hypercortisolemia CORTISOL Routine 07/09/2025 8:48 AM CDT Hypercortisolemia DHEA-SULFATE Routine 07/09/2025 8:48 AM CDT Hypercortisolemia ACTH Routine 07/09/2025 8:48 AM CDT Hypercortisolemia CORTISOL,SALIVA Routine 07/08/2025 12:00 PM CDT Hypercortisolemia CORTISOL,SALIVA Routine 07/07/2025 12:00 PM CDT Hypercortisolemia EGFR STAT 03/21/2025 10:49 PM CDT HEPATITIS PANEL, ACUTE Routine 08/10/2024 12:01 PM CDT Interstitial pulmonary disease (HCC) from Last 3 Months or Most Recently Relevant to Health Maintenance Results * US Guided Aspiration or Injection of Major Joint (08/29/2025 12:26 PM CDT) Anatomical Region Laterality Modality Entire body N/A Radio Fluoroscop y 08/29/2025 2:33 PM CDT Impressions 08/29/2025 4:05 PM CDT 1. Left ischial bursa injection under ultrasound guidance with reduction of the patient's presenting pain at the conclusion of the procedure. Dictated by: Siva Manzo MD The radiology attending physician has personally reviewed this study, and had reviewed and/or edited this written report and agrees with it. Electronically signed by: Darnell Lowe MD Narrative 08/29/2025 4:05 PM CDT EXAMINATION: Left ischial bursa joint injection under ultrasound guidance HISTORY: 79-year-old with tenderness to palpation overlying the left initial bursa. ATTENDING PRESENCE: Dr. Darnell Lowe MD, the attending radiologist, was present from the beginning to the end of the procedure. SEDATION: Procedural sedation was administered under the attending physician's direction and continuous monitoring by a trained nurse specialist who was independent from those actually performing the procedure. Total monitored sedation time was 24 minutes. 1.5 mg of Versed, and 100 mcg of fentanyl were administered via IV. TECHNIQUE: The risks, benefits and alternatives were discussed and informed consent was obtained. Prior to beginning the procedure, [place] Protocol was performed to confirm the patient's identity and the planned procedure. Sterile barriers used during the procedure included cap, mask, hand hygiene, sterile gloves, and sterile drape. Chloraprep was used for cutaneous antisepsis. The patient was placed prone on the procedure table. The left ischial tuberosity was localized with ultrasound guidance. Local anesthesia was achieved with subcutaneous injection of 1% lidocaine 3 mL. A 18-gauge needle was then introduced into the left ischial bursa under imaging guidance. 4 mL of [id number] 1% lidocaine and 0.25% bupivacaine was injected to verify appropriate position of the needle tip. A mixture containing Kenalog (40 mg/mL) 1 mL and 0.25% bupivacaine 2 mL was then injected into the bursal space. The needle was removed. The skin was cleansed with hydrogen peroxide, and a bandage was placed. Complication: None Type: None ESTIMATED BLOOD LOSS: None CONDITION: Stable condition. DISCHARGED TO: Home FINDINGS: Imaging confirms appropriate position of the needle tip. Following the injection, the patient reported reduction in symptoms. Targeted evaluation of the area of concern demonstrated at least partial-thickness tears of the conjoint tendon. Procedure Note Darnell Lowe MD - 08/29/2025 EXAMINATION: Left ischial bursa joint injection under ultrasound guidance HISTORY: 79-year-old with tenderness to palpation overlying the left initial bursa. ATTENDING PRESENCE: Dr. Darnell Lowe MD, the attending radiologist, was present from the beginning to the end of the procedure. SEDATION: Procedural sedation was administered under the attending physician's direction and continuous monitoring by a trained nurse specialist who was independent from those actually performing the procedure. Total monitored sedation time was 24 minutes. 1.5 mg of Versed, and 100 mcg of fentanyl were administered via IV. TECHNIQUE: The risks, benefits and alternatives were discussed and informed consent was obtained. Prior to beginning the procedure, [place] Protocol was performed to confirm the patient's identity and the planned procedure. Sterile barriers used during the procedure included cap, mask, hand hygiene, sterile gloves, and sterile drape. Chloraprep was used for cutaneous antisepsis. The patient was placed prone on the procedure table. The left ischial tuberosity was localized with ultrasound guidance. Local anesthesia was achieved with subcutaneous injection of 1% lidocaine 3 mL. A 18-gauge needle was then introduced into the left ischial bursa under imaging guidance. 4 mL of [id number]-glk-[id number] 1% lidocaine and 0.25% bupivacaine was injected to verify appropriate position of the needle tip. A mixture containing Kenalog (40 mg/mL) 1 mL and 0.25% bupivacaine 2 mL was then injected into the bursal space. The needle was removed. The skin was cleansed with hydrogen peroxide, and a bandage was placed. Complication: None Type: None ESTIMATED BLOOD LOSS: None CONDITION: Stable condition. DISCHARGED TO: Home FINDINGS: Imaging confirms appropriate position of the needle tip. Following the injection, the patient reported reduction in symptoms. Targeted evaluation of the area of concern demonstrated at least partial-thickness tears of the conjoint tendon. IMPRESSION: 1. Left ischial bursa injection under ultrasound guidance with reduction of the patient's presenting pain at the conclusion of the procedure. Dictated by: Siva Manzo MD The radiology attending physician has personally reviewed this study, and had reviewed and/or edited this written report and agrees with it. Electronically signed by: Darnell Lowe MD us Zarina Carroll MD IMG US PROCEDURES Final Result * POCT glucose (08/29/2025 11:37 AM CDT) Glucose, POC 73 70 - 199 mg/dL Blood 08/29/2025 11:3 7 AM CDT 08/29/2025 11:37 AM CDT Siva Manzo MD LAB POCT ORDERABLES - DEVICE F inal Result [facility] Department [place] [address] * MRI Lumbar Spine WO Contrast (08/26/2025 3:40 PM CDT) Anatomical Region Laterality Modality Spine N/A Magnetic Resonan ce us Dominic Schneider MD IMG MRI PROCEDURES Final Re sult * XR Hips Bilateral 3 or 4 Views (08/07/2025 2:43 PM CDT) Anatomical Region Laterality Modality Lower Extremities, Hip, Pelvis Bilateral C omputed Radiography 08/07/2025 4:18 PM CDT Impressions 08/07/2025 5:36 PM CDT Mild right and uzca-[id number]-fzxxyqzl left hip osteoarthritis. Dictated by: Lizzeth Archibald M.D. The radiology attending physician has personally reviewed this study, and had reviewed and/or edited this written report and agrees with it. Electronically signed by: Darnell Lowe MD Narrative 08/07/2025 5:36 PM CDT EXAMINATION: XR HIPS BILATERAL 3 OR 4 VW HISTORY: L ischial bursa pain, groin pain COMPARISON: Comparison is made with multiple prior exams, most recently CT 03/05/2024 FINDINGS: Mild right hip osteoarthritis and mild to moderate moderate left hip osteoarthritis. Likely area of heterotopic ossification lateral to the right greater trochanter . No acute fracture or dislocation. The femoral heads are well-seated within the acetabula bilaterally. Moderate lower lumbar degenerative disc disease. Vascular atherosclerosis is seen. Procedure Note Darnell Lowe MD - 08/07/2025 EXAMINATION: XR HIPS BILATERAL 3 OR 4 VW HISTORY: L ischial bursa pain, groin pain COMPARISON: Comparison is made with multiple prior exams, most recently CT 03/05/2024 FINDINGS: Mild right hip osteoarthritis and mild to moderate moderate left hip osteoarthritis. Likely area of heterotopic ossification lateral to the right greater trochanter . No acute fracture or dislocation. The femoral heads are well-seated within the acetabula bilaterally. Moderate lower lumbar degenerative disc disease. Vascular atherosclerosis is seen. IMPRESSION: Mild right and nmop-wu-kfdhysrh left hip osteoarthritis. Dictated by: Lizzeth Archibald M.D. The radiology attending physician has personally reviewed this study, and had reviewed and/or edited this written report and agrees with it. Electronically signed by: Darnell Lowe MD Zarina Carroll MD IMG XR PROCEDURES Final Result * Cortisol 30 min (08/07/2025 10:22 AM CDT) Cortisol, 30 min 16.3 mcg/dL Comment: Interpretive Data Reference Values Cortisol cutoff of 14-15 ug/dL for cortrosyn stimulation testing. Lack of normal response can be seen in both primary and secondary adrenal failure. Some patients with secondary adrenal failure have normal response to cortrosyn. If pituitary disease is known or strongly suspected e.g. after pituitary surgery), the cortrosyn test alone should not be relied on to exclude adrenal failure. Literature References: 1. Lillie BR, Rojas H, Rajiv TB, et al. New cutoffs for the biochemical diagnosis of adrenal insufficiency after ACTH stimulation using specific cortisol assays. J Endocr Soc. 2020;5(4):cjwb569. 2. Keny CLEMENTE and Eldon ROBISON. New cutoffs for the biochemical diagnosis of Adrenal insufficiency after ACTH stimulation using specific cortisol assays. J. Endocrine Soc 2020;5:1-2. Current interpret data was last revised 24 Blood 08/07/2025 10:2 2 AM CDT 08/07/2025 12:07 PM CDT Doug [facility] - 08/07/2025 12:45 PM CDT Obtain pre, 30 minutes, and 60 minutes post cosyntropin adminstration. Valery Chakraborty MD LAB BLOOD ORDERABLES Final Result Performing Organization Address City/[facility] Co de Phone Number [facility] Department [place] [address] * Cortisol baseline (08/07/2025 10:22 AM CDT) Cortisol, base 9.1 mcg/dL Blood 08/07/2025 10:2 2 AM CDT 08/07/2025 12:07 PM CDT Doug [facility] 08/07/2025 12:44 PM CDT Obtain pre, 30 minutes, and 60 minutes post cosyntropin adminstration. Valery Chakraborty MD LAB BLOOD ORDERABLES Final Result Performing Organization Address City/[facility] Co de Phone Number [facility] [place] [address] * Cortisol 60 min (08/07/2025 10:22 AM CDT) Cortisol, 60 min 19.6 mcg/dL Comment: Interpretive Data Reference Values Cortisol cutoff of 14-15 ug/dL for cortrosyn stimulation testing. Lack of normal response can be seen in both primary and secondary adrenal failure. Some patients with secondary adrenal failure have normal response to cortrosyn. If pituitary disease is known or strongly suspected e.g. after pituitary surgery), the cortrosyn test alone should not be relied on to exclude adrenal failure. Literature References: 1. Lillie BR, Rojas H, Rajiv TB, et al. New cutoffs for the biochemical diagnosis of adrenal insufficiency after ACTH stimulation using specific cortisol assays. J Endocr Soc. 2020;5(4):fben504. 2. Keny BURDICKP and Eldon AM. New cutoffs for the biochemical diagnosis of Adrenal insufficiency after ACTH stimulation using specific cortisol assays. J. Endocrine Soc 2020;5:1-2. Current interpret data was last revised 24 Blood 08/07/2025 10:2 2 AM CDT 08/07/2025 12:07 PM CDT Narrative [facility] - 08/07/2025 12:51 PM CDT Obtain pre, 30 minutes, and 60 minutes post cosyntropin adminstration. Valery Chakraborty MD LAB BLOOD ORDERABLES Final Result Performing Organization Address City/[facility]/ZIP Co de Phone Number [facility] Department [place] [address] * ACTH (08/07/2025 10:22 AM CDT) Pathologist [facility] ACTH 16.7 7.0 - 63.0 pg/mL Blood 08/07/2025 10:2 2 AM CDT 08/07/2025 11:11 AM CDT Valery Chakraborty MD LAB BLOOD ORDERABLES Final Result Performing Organization Address City/[facility]/ZIP Co de Phone Number [facility] Department [place] [address] * X-ray lumbar spine complete 4+ views (07/17/2025 12:21 PM CDT) Anatomical Region Laterality Modality Spine N/A Computed Radiogr aphy 07/17/2025 12:2 4 PM CDT Impressions 07/17/2025 12:24 PM CDT 1. No abnormal motion of the lumbar spine 2. Multilevel moderate lumbar spondylosis and moderate to severe lower lumbar facet arthropathy Electronically signed by: Meghan Narvaez MD Narrative 07/17/2025 12:24 PM CDT EXAMINATION: XR SPINE LUMBAR 4 OR MORE VIEWS HISTORY: Lower back/bilateral leg pain FINDINGS: 4 radiographs of the lumbar spine are compared to 08/10/2024. Redemonstrated levoscoliosis of the lumbar spine with apex at L2. No acute compression fracture is identified. No listhesis in neutral position. No abnormal translation with flexion or extension. Multilevel degenerative disc disease is greatest and moderate at L3-L4. There is moderate to severe lower lumbar facet arthropathy. Vascular calcifications. Procedure Note Le Narvaez MD - 07/17/2025 EXAMINATION: XR SPINE LUMBAR 4 OR MORE VIEWS HISTORY: Lower back/bilateral leg pain FINDINGS: 4 radiographs of the lumbar spine are compared to 08/10/2024. Redemonstrated levoscoliosis of the lumbar spine with apex at L2. No acute compression fracture is identified. No listhesis in neutral position. No abnormal translation with flexion or extension. Multilevel degenerative disc disease is greatest and moderate at L3-L4. There is moderate to severe lower lumbar facet arthropathy. Vascular calcifications. IMPRESSION: 1. No abnormal motion of the lumbar spine 2. Multilevel moderate lumbar spondylosis and moderate to severe lower lumbar facet arthropathy Electronically signed by: Meghan Narvaez MD Dominic Schneider MD IMG XR PROCEDURES Final Res ult * CT Body Outside Consult (07/15/2025 1:45 PM CDT) Anatomical Region Laterality Modality Body N/A Computed Tomogra phy 07/16/2025 7:23 AM CDT Impressions 07/16/2025 7:23 AM CDT This study was initially nominated as a consult on outside images via Outside Image Sharing Service. However, a consult was not performed because the study is greater than 6 months old. Accordingly, there will be no separate report of this study generated by a [facility] Radiologist. Electronically signed by: Dax Patel M.D. Narrative 07/16/2025 7:23 AM CDT EXAMINATION: CHANGE CONSULT ON OUTSIDE IMAGES TO REFERENCE IMAGES Procedure Note Dax Patel MD - 07/16/2025 EXAMINATION: CHANGE CONSULT ON OUTSIDE IMAGES TO REFERENCE IMAGES IMPRESSION: This study was initially nominated as a consult on outside images via Outside Image Sharing Service. However, a consult was not performed because the study is greater than 6 months old. Accordingly, there will be no separate report of this study generated by a [facility] Radiologist. Electronically signed by: Dax Patel M.D. 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 The findings and impression are based on the available images, which may not be technical sales representative of the entire organ or disease entity. Also note that ultrasound image acquisition is digging machine operator dependent, and that the study was performed outside our facility with no control over image acquisition. In addition, the provided images may or may not represent the [place] source data set and thus may contain changes that may lower the accuracy of this second-opinion interpretation. The findings, conclusions and recommendations within this report do not replace the initial findings, conclusions and recommendations made at the facility where the study was performed based upon the imaging and clinical condition at that time. Comparison with the prior report and clinical history is necessary. The radiology attending physician has personally reviewed this study, and had reviewed and/or edited this written report and agrees with it. Electronically signed by: Andrew Burt MD PHD Narrative 07/15/2025 2:36 PM CDT EXAMINATION: RADIOLOGY CONSULTATION ON OUTSIDE IMAGING STUDY STUDY INITIALLY PERFORMED: 01/31/2025 at [facility]. TYPE OF STUDY: Multiple ultrasound images with [...] of undetermined significance. COMPARISON: CT 03/05/2024 FINDINGS: There are postoperative changes of thyroidectomy. There is no definite evidence of tumor recurrence in the thyroid bed. Trace residual normal thyroid tissue within the bilateral thyroidectomy bed. There are no suspicious cervical lymph nodes. Procedure Note Andrew Burt MD PhD - 07/15/2025 EXAMINATION: RADIOLOGY CONSULTATION ON OUTSIDE IMAGING STUDY STUDY INITIALLY PERFORMED: 01/31/2025 at [facility]. TYPE OF STUDY: Multiple ultrasound images with [...] of undetermined significance. COMPARISON: CT 03/05/2024 FINDINGS: There are postoperative changes of thyroidectomy. There is no definite evidence of tumor recurrence in the thyroid bed. Trace residual normal thyroid tissue within the bilateral thyroidectomy bed. There are no suspicious cervical lymph nodes. 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 The findings and impression are based on the available images, which may not be technical sales representative of the entire organ or disease entity. Also note that ultrasound image acquisition is digging machine operator dependent, and that the study was performed outside our facility with no control over image acquisition. In addition, the provided images may or may not represent the [place] source data set and thus may contain changes that may lower the accuracy of this second-opinion interpretation. The findings, conclusions and recommendations within this report do not replace the initial findings, conclusions and recommendations made at the facility where the study was performed based upon the imaging and clinical condition at that time. Comparison with the prior report and clinical history is necessary. The radiology attending physician has personally reviewed this study, and had reviewed and/or edited this written report and agrees with it. Electronically signed by: Andrew Burt MD PHD us Miky Giordano III, MD PhD IMG US PROCEDU RES Final Result * Cortisol, saliva (07/09/2025 8:48 AM CDT) Cortisol, saliva 0.022 ug/dL [facility] - 01 Comment: This test was developed and its performance characteristics determined by [facility]. It has not been cleared or approved by the Food and Drug Administration. Reference Range: Children and Adults: 8:00a.m.: 0.025 - 0.600 Noon: <0.010 - 0.330 4:00p.m.: 0.010 - 0.200 Bedtime (9:00p.m.-Midnight): <0.010 - 0.090 Saliva 07/09/2025 8:48 AM CDT 07/09/2025 Narrative [facility] - 07/17/2025 9:10 AM CDT Performed at: [facility] [address] [place] [address] [id number] Feather Cutting Machine Feeder: Nuno Stewart MD, Phone: [phone] us Valery Chakraborty MD LAB BODY FLUIDS AND STOOLS ORDERABLES Final Result [facility] - 01 * DHEA-sulfate (07/09/2025 8:48 AM CDT) DHEA-S <10 ug/dL [facility] - 01 Comment: This test was developed and its performance characteristics determined by [facility]. It has not been cleared or approved by the Food and Drug Administration. Reference Range: Adult Females (71 - 80y): <111 Blood 07/09/2025 8:48 AM CDT 07/09/2025 Narrative [facility] - 07/19/2025 7:09 AM CDT Performed at: [facility] [address] [place] [address] [id number] [employer] Machine Feeder: Nuno Stewart MD, Phone: [phone] Valery Chakraborty MD LAB BLOOD ORDERABLES Final Result Performing Organization Address [facility]/ZIP Co de Phone Number [facility] - 01 * ACTH (07/09/2025 8:48 AM CDT) [facility] ACTH 7.7 7.2 - 63.3 pg/mL [facility] - 01 Comment:ACTH reference inter francesca for samples collected between 7 and 10 AM. Blood 07/09/2025 8:48 AM CDT 07/09/2025 Narrative [facility] - 07/10/2025 3:10 PM CDT Performed at: [address] [place] [address] [id number] [employer] Machine Feeder: Javier Cordero PhD, Phone: [phone] Result [facility] Valery Chakraborty MD LAB BLOOD ORDERABLES Final Result Performing Organization Address [facility] Co de Phone Number [facility] [place] - * (ABNORMAL) Cortisol (07/09/2025 8:48 AM CDT) [facility] Cortisol 4.8(L) 6.2 - 19.4 ug/dL [facility] - 01 Comment: Please Note: The reference interval and flagging for this test is for an AM collection. If this is a PM collection please use: Cortisol PM: 2.3-11.9 Blood 07/09/2025 8:48 AM CDT 07/09/2025 Narrative [facility] - 07/10/2025 7:09 AM CDT Performed at: [address] [place] [address] [id number] [employer] Machine Feeder: Javier Cordero PhD, Phone: [phone] Valery Chakraborty MD LAB BLOOD ORDERABLES Final Result Performing Organization Address [facility]/ZIP Co de Phone Number [facility] - 01 * Cortisol, saliva (07/08/2025 12:00 PM CDT) Cortisol, saliva 0.014 ug/dL [facility] - 01 Comment: This test [...] - 07/14/2025 3:08 PM CDT Performed at: [facility] [address] [place] [address] [id number] [employer] Machine Feeder: Nuno Stewart MD, Phone: [phone] us Valery Chakraborty MD LAB BODY FLUIDS AND STOOLS ORDERABLES Final Result [facility] - 01 * Cortisol, saliva (07/07/2025 12:00 PM CDT) [...] - 07/14/2025 3:08 PM CDT Performed at: [facility] [address] [place] [address] [id number] [employer] Machine Feeder: Nuno Stewart MD, Phone: [phone] us Valery Chakraborty MD LAB BODY FLUIDS AND STOOLS ORDERABLES Final Result [facility] - 01 * (ABNORMAL) eGFR (03/21/2025 10:49 PM CDT) [...] was last reviewed 2021. Testing performed by: [facility], [address] [place] [address]., [id number] Blood 03/21/2025 10:4 9 PM CDT 03/21/2025 10:57 PM CDT us Misti Tobar NP LAB BLOOD ORDERABLES Final Resul t [facility] [address] [facility] [place] [address] * Hepatitis panel, acute Blood (08/10/2024 12:01 PM CDT) Hep A IgM Nonreactive Nonreactive Hep B core IgM Nonreactive Nonreactive [facility] Hep C Ab Nonreactive Nonreactive [facility] Comment:Antibodies to HCV no t detected. Does NOT exclude the possibility of recent exposure to HCV. Current interpretive data was last revised on 22 HepBsAg Nonreactive Nonreactive [facility] Blood 08/10/2024 12:0 1 PM CDT 08/10/2024 2:23 PM CDT us Zarina Carroll MD LAB MICROBIOLOGY - GENERAL ORDER TATO Final Result [facility] Department [place] [address] from Last 3 Months or Most Recently Relevant to Health Maintenance Insurance [employer] IDPA IDPA [employer] IDPA Advance Directives For more information, please contact: [phone] * Full Code (Latest Code Status on File) Date Activated Date Inactivated Comments 08/29/2025 10:50 AM 08/30/2025 4:51 AM * Full Code Date Activated Date Inactivated Comments 05/30/2023 2:42 AM 06/01/2023 6:25 PM * Full Code Date Activated Date Inactivated Comments 05/30/2023 12:31 AM 05/30/2023 2:42 AM * Full Code Date Activated Date Inactivated Comments 05/05/2022 2:33 PM 05/14/2022 7:09 PM Care Teams 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
--- OUTSIDE RECORDS SUMMARY | 2025-09-12 19:42 | XMS_ITS | Data Portability ---
Author Organization [facility], Main Office Address [address] [place] [address] Care Team Providers Care Oil Sprayer Name Role Phone HERNANDOAMANDASUE Primary Care Provider SUE MCCANN Referring Provider [phone] Assessment Encounter Date Assessment Date Assessment LastModified by Organization Details LastModified Time 07/18/2025 07/18/2025 This note is dictated and transcribed by [employer] Direct Software. Server Programmer variances may occur. Despite proofreading, typographical errors may occur. Occasional wrong-word or '[id number]' substitutions may have occurred due to the inherent limitations of voice recording. Read the chart carefully and recognize, using context, where substitutions have occurred. [email or web address] Not available 07/18/2025 14:21:16 Plan of Treatment Reminders Order Date Submit Date Provider Last Modified By Organization Details Last Modified Time Details Appointments Establish ed Patient 15 2024 03:00P Chai Wetzel DPM Not available Not available Not available Lab lipid panel, serum 2022 023 [facility] (Lab), [address] [place], [address], 07/04/2023 13:44:14 glycohemo globin, total, blood 2022 023 [facility] (Lab), [address] [place], [address], 07/04/2023 14:14:23 CMP, serum or plasma 2022 023 [facility] (Lab), [address] [place], [address], 05/13/2023 14:34:25 TSH, serum or plasma 2022 023 [facility] (Lab), [address] [place], [address], 07/04/2023 14:18:28 T4, free, serum 2022 023 [facility] (Lab), [address] [place], [address], 07/04/2023 14:08:54 T3, free, serum or plasma 2022 023 [facility] (Lab), [address] [place], [address], 07/04/2023 14:08:59 Referral endocrino logy referral - bilateral adrenal hyperplas ia with abnormal DST, unable to tolerate korlym 2022 023 [email or web address] [facility], [address], [place], [address], 07/14/2023 12:50:55 Procedures None recorded. Surgeries None recorded. Imaging None recorded. Medication Orders Ozempic 2 mg/dose (8 mg/3 mL) subcutane ous pen injector [address] [id number], [address], [place], [id number], 09/27/2024 13:30:28 Farxiga 5 mg tablet [address] [facility]80, [address], [place], [id number], 09/27/2024 13:29:03 Unithroid 75 mcg tablet 2022 023 [email or web address] [facility] #90181, [address], [place], [id number], 07/18/2025 14:24:06 Wegovy 0.5 mg/0.5 mL subcutane ous pen injector 2022 023 [email or web address] [facility][id number], [address], [place], [id number], 07/14/2023 12:27:44 Korlym 300 mg tablet 2022 023 [email or web address] [facility], [address] [facility], [place], [address], 07/14/2023 12:29:23 Unithroid 100 mcg tablet 2022 023 [email or web address] [id number], [address], [place], [id number], 07/18/2025 14:23:53 Patient TargetsNo targets recorded. Patient InstructionsNo instructions recorded. Reason for Referral Endocrinology Referral for H ypercortisolism bilateral adrenal hyperplasia with abnormal DST, unable to tolerate korlym Referring Physician: Stephanie Morrissey, Endocrinology, Encounter Date: 07/14/2023 Results Created Date Observation Date Name Description Value Unit Range Abnormal Flag Note LastModifiedBy Organization Detail LastModifiedTime 12/14/1912/14/2022 T3 FREE free T3 2.6 pg/mL 2.77-5 .27 low Not Available [facility] (Lab) [address] [place], [address], 12/14/2022 15:23:41 12/14/19 23 12/14/2022 T4 FREE free T4 1.40 NG/dL 0.78-2 .19 Not Available [facility] (Lab) [address] [place], [address], 12/14/2022 15:23:38 12/14/1912/14/2022 TSH thyroid-stim ulating hormone 0.598 uIU/m L 0.465- 4.680 Not Available [facility] (Lab) [address] [place], [address], 12/14/2022 15:12:15 12/14/19 23 12/14/2022 HEMOG LOBIN A1C HA1C 5.6 % 4.0-6. 0 Diabe brianna Scree gisele Crite pamela: <5.7% Consi stent with absen ce of diabe brianna 5.7-6 .4% Consi stent with incre ased risk for diabe brianna (pred iabet es) >OR=6 .5% Consi stent with diabe brianna REFER ENCE: Diabe brianna Care 2016, 39(Anderson ppl.1 ):s13 -s22 Not Available [facility] (Lab) [address] [place], [address], 12/14/2022 14:54:35 12/14/19 23 12/14/2022 COMPR EHENS KECIA METAB OLIC PANEL A/G ratio 1.3 ratio 1.0-2. 0 Not Available [facility] (Lab) [address] [place], [address], 12/14/2022 14:24:11 12/14/19 23 12/14/2022 COMPR EHENS KECIA METAB OLIC PANEL carbon dioxide 25 mmol/ L 22-30 Not Available [facility] (Lab) [address] [place], [address], 12/14/2022 14:24:11 12/14/19 23 12/14/2022 COMPR EHENS KECIA METAB OLIC PANEL sodium 140 mmol/ L 137-14 5 Not Available [facility] (Lab) [address] [place], [address], 12/14/2022 14:24:11 12/14/19 23 12/14/2022 COMPR EHENS KECIA METAB OLIC PANEL potassium 4.0 mmol/ L 3.5-5. 1 Not Available [facility] (Lab) [address] [place], [address], 12/14/2022 14:24:11 12/14/19 23 12/14/2022 COMPR EHENS KECIA METAB OLIC PANEL chloride 103 mmol/ L 98-107 Not Available [facility] (Lab) [address] [place], [address], 12/14/2022 14:24:11 12/14/19 23 12/14/2022 COMPR EHENS KECIA METAB OLIC PANEL anion gap 16.0 mmol/ L 14-22 Not Available [facility] (Lab) [address] [place], [address], 12/14/2022 14:24:11 12/14/19 23 12/14/2022 COMPR EHENS KECIA METAB OLIC PANEL glucose 109 mg/dL 70-99 high Not Available [facility] (Lab) [address] [place], [address], 12/14/2022 14:24:11 12/14/19 23 12/14/2022 COMPR EHENS KECIA METAB OLIC PANEL BUN 17 mg/dL 8-19 Not Available [facility] (Lab) [address] [place], [address], 12/14/2022 14:24:11 12/14/19 23 12/14/2022 COMPR EHENS KECIA METAB OLIC PANEL creatinine 1.74 mg/dL 0.66-1 .25 high Not Available [facility] (Lab) [address] [place], [address], 12/14/2022 14:24:11 12/14/19 23 12/14/2022 COMPR EHENS KECIA METAB OLIC PANEL GFR 29 Refer ence Range : [place] ge GFR Healt hy Adult : >60 [...] calcu lator is avail able on the [facility] websi te: https ://heather [email or web address] [email or web address] rg/pr ofess ional s/kdo qi/gf r_cal culat or Not Available [facility] (Lab) [address] [place], [address], 12/14/2022 14:24:11 12/14/19 23 12/14/2022 COMPR EHENS KECIA METAB OLIC PANEL alkaline phosphatase 57 U/L 38-126 Not Available [facility] (Lab) [address] [place], [address], 12/14/2022 14:24:11 12/14/19 23 12/14/2022 COMPR EHENS KECIA METAB OLIC PANEL alanine aminotransfe rase 17 U/L 0-35 Not Available [facility] (Lab) [address] [place], [address], 12/14/2022 14:24:11 12/14/19 23 12/14/2022 COMPR EHENS KECIA METAB OLIC PANEL aspartate aminotransfe rase 26 U/L 15-37 Not Available [facility] (Lab) [address] [place], [address], 12/14/2022 14:24:11 12/14/19 23 12/14/2022 COMPR EHENS KECIA METAB OLIC PANEL bilirubin, total 0.60 mg/dL 0.20-1 .30 Not Available [facility] (Lab) [address] [place], [address], 12/14/2022 14:24:11 12/14/19 23 12/14/2022 COMPR EHENS KECIA METAB OLIC PANEL calcium 9.0 mg/dL 8.4-10 .2 Not Available [facility] (Lab) [address] [place], [address], 12/14/2022 14:24:11 12/14/19 23 12/14/2022 COMPR EHENS KECIA METAB OLIC PANEL total protein 7.7 g/dL 6.3-8. 2 Not Available [facility] (Lab) [address] [place], [address], 12/14/2022 14:24:11 12/14/19 23 12/14/2022 COMPR EHENS KECIA METAB OLIC PANEL albumin 4.3 g/dL 3.0-4. 4 Not Available [facility] (Lab) [address] [place], [address], 12/14/2022 14:24:11 12/14/19 23 12/14/2022 COMPR EHENS KECIA METAB OLIC PANEL globulin 3.4 g/dL 2.6-4. 2 Not Available [facility] (Lab) [address] [place], [address], 12/14/2022 14:24:11 12/14/19 23 12/14/2022 MICRO ALBUM N RNDM W/CRE AT RATIO ur creat 122.62 mg/dL REFER ENCE RANGE NOT ESTAB LISHE D FOR RANDO M URINE CREAT ININE Not Available [facility] (Lab) [address] [place], [address], 12/14/2022 13:55:12 12/14/19 23 12/14/2022 MICRO ALBUM N RNDM W/CRE AT RATIO microalbumin , urine 217.1 mg/L 0.0-16 .6 high Not Available [facility] (Lab) [address] [place], [address], 12/14/2022 13:55:12 12/14/19 23 12/14/2022 MICRO ALBUM [...] ENCE: DIABE BRIANNA CARE, VOL. 26: S94-S 2002 Not Available [facility] (Lab) [address] [place], [address], 12/14/2022 13:55:12 03/07/20 23 03/07/2023 MICRO ALBUM N RNDM W/CRE AT RATIO ur creat 133.14 mg/dL REFER ENCE RANGE NOT ESTAB LISHE D FOR RANDO M URINE CREAT ININE Not Available [facility] (Lab) [address] [place], [address], 03/07/2023 14:32:57 03/07/20 23 03/07/2023 MICRO ALBUM N RNDM W/CRE AT RATIO microalbumin , urine 162.5 mg/L 0.0-16 .6 high Not Available [facility] (Lab) [address] [place], [address], 03/07/2023 14:32:57 03/07/20 23 03/07/2023 MICRO ALBUM [...] VOL. 26: S94-S 96, 2002 Not Available [facility] (Lab) [address] [place], [address], 03/07/2023 14:32:57 03/07/20 23 03/07/2023 COMPR EHENS KECIA METAB OLIC PANEL sodium 138 mmol/ L 137-14 5 Not Available [facility] (Lab) [address] [place], [address], 03/07/2023 14:33:43 03/07/20 23 03/07/2023 COMPR EHENS KECIA METAB OLIC PANEL potassium 4.9 mmol/ L 3.5-5. 1 Not Available [facility] (Lab) [address] [place], [address], 03/07/2023 14:33:43 03/07/20 23 03/07/2023 COMPR EHENS KECIA METAB OLIC PANEL chloride 105 mmol/ L 98-107 Not Available [facility] (Lab) [address] [place], [address], 03/07/2023 14:33:43 03/07/20 23 03/07/2023 COMPR EHENS KECIA METAB OLIC PANEL carbon dioxide 26 mmol/ L 22-30 Not Available [facility] (Lab) [address] [place], [address], 03/07/2023 14:33:43 03/07/20 23 03/07/2023 COMPR EHENS KECIA METAB OLIC PANEL anion gap 11.9 mmol/ L 14-22 low Not Available [facility] (Lab) [address] [place], [address], 03/07/2023 14:33:43 03/07/20 23 03/07/2023 COMPR EHENS KECIA METAB OLIC PANEL glucose 119 mg/dL 70-99 high Not Available [facility] (Lab) [address] [place], [address], 03/07/2023 14:33:43 03/07/20 23 03/07/2023 COMPR EHENS KECIA METAB OLIC PANEL BUN 25 mg/dL 8-19 high Not Available [facility] (Lab) [address] [place], [address], 03/07/2023 14:33:43 03/07/20 23 03/07/2023 COMPR EHENS KECIA METAB OLIC PANEL creatinine 1.89 mg/dL 0.66-1 .25 high Not Available [facility] (Lab) [address] [place], [address], 03/07/2023 14:33:43 03/07/20 23 03/07/2023 COMPR EHENS KECIA METAB OLIC PANEL GFR 26 Refer ence Range : [place] ge GFR Healt hy Adult : >60 [...] calcu lator is avail able on the [facility] websi te: https ://heather [email or web address] [email or web address] cris/pr ofess ional s/kdo qi/gf r_cal culat or Not Available [facility] (Lab) [address] [place], [address], 03/07/2023 14:33:43 03/07/20 23 03/07/2023 COMPR EHENS KECIA METAB OLIC PANEL alkaline phosphatase 57 U/L 38-126 Not Available [facility] (Lab) [address] [place], [address], 03/07/2023 14:33:43 03/07/20 23 03/07/2023 COMPR EHENS KECIA METAB OLIC PANEL alanine aminotransfe rase 17 U/L 0-35 Not Available [facility] (Lab) [address] [place], [address], 03/07/2023 14:33:43 03/07/20 23 03/07/2023 COMPR EHENS KECIA METAB OLIC PANEL aspartate aminotransfe rase 29 U/L 15-37 Not Available [facility] (Lab) [address] [place], [address], 03/07/2023 14:33:43 03/07/20 23 03/07/2023 COMPR EHENS KECIA METAB OLIC PANEL bilirubin, total 0.70 mg/dL 0.20-1 .30 Not Available [facility] (Lab) [address] [place], [address], 03/07/2023 14:33:43 03/07/20 23 03/07/2023 COMPR EHENS KECIA METAB OLIC PANEL calcium 9.3 mg/dL 8.4-10 .2 Not Available [facility] (Lab) [address] [place], [address], 03/07/2023 14:33:43 03/07/20 23 03/07/2023 COMPR EHENS KECIA METAB OLIC PANEL total protein 7.5 g/dL 6.3-8. 2 Not Available [facility] (Lab) [address] [place], [address], 03/07/2023 14:33:43 03/07/20 23 03/07/2023 COMPR EHENS KECIA METAB OLIC PANEL albumin 4.2 g/dL 3.0-4. 4 Not Available [facility] (Lab) [address] [place], [address], 03/07/2023 14:33:43 03/07/20 23 03/07/2023 COMPR EHENS KECIA METAB OLIC PANEL globulin 3.3 g/dL 2.6-4. 2 Not Available [facility] (Lab) [address] [place], [address], 03/07/2023 14:33:43 03/07/20 23 03/07/2023 COMPR EHENS KECIA METAB OLIC PANEL A/G ratio 1.3 ratio 1.0-2. 0 Not Available [facility] (Lab) [address] [place], [address], 03/07/2023 14:33:43 03/07/20 23 03/07/2023 PHOSP HORUS phosphorus 4.2 mg/dL 2.5-4. 5 Not Available [facility] (Lab) [address] [place], [address], 03/07/2023 14:33:47 03/07/20 23 03/07/2023 T4 FREE free T4 1.09 NG/dL 0.78-2 .19 Not Available [facility] (Lab) [address] [place], [address], 03/07/2023 14:39:37 03/07/20 23 03/07/2023 T3 FREE free T3 2.4 pg/mL 2.77-5 .27 low Not Available [facility] (Lab) [address] [place], [address], 03/07/2023 14:39:46 03/07/20 23 03/07/2023 TSH thyroid-stim ulating hormone 11.000 uIU/m L 0.465- 4.680 high Not Available [facility] (Lab) [address] [place], [address], 03/07/2023 14:52:02 03/07/20 23 03/07/2023 HEMOG LOBIN A1C HA1C 6.3 % 4.0-6. 0 high Diabe brianna Scree gisele Crite pamela: <5.7% Consi stent with absen ce of diabe brianna 5.7-6 .4% Consi stent with incre ased risk for diabe brianna (pred iabet es) >OR=6 .5% Consi stent with diabe brianna REFER ENCE: Diabe brianna Care 2016, 39(Anderson ppl.1 ):s13 -s22 Not Available [facility] (Lab) [address] [place], [address], 03/07/2023 15:53:45 05/13/20 23 05/13/2023 COMPR EHENS KECIA METAB OLIC PANEL sodium 141 mmol/ L 137-14 5 Not Available [facility] (Lab) [address] [place], [address], 05/13/2023 14:34:25 05/13/20 23 05/13/2023 COMPR EHENS KECIA METAB OLIC PANEL potassium 4.4 mmol/ L 3.5-5. 1 Not Available [facility] (Lab) [address] [place], [address], 05/13/2023 14:34:25 05/13/20 23 05/13/2023 COMPR EHENS KECIA METAB OLIC PANEL chloride 101 mmol/ L 98-107 Not Available [facility] (Lab) [address] [place], [address], 05/13/2023 14:34:25 05/13/20 23 05/13/2023 COMPR EHENS KECIA METAB OLIC PANEL carbon dioxide 26 mmol/ L 22-30 Not Available [facility] (Lab) [address] [place], [address], 05/13/2023 14:34:25 05/13/20 23 05/13/2023 COMPR EHENS KECIA METAB OLIC PANEL anion gap 18.4 mmol/ L 14-22 Not Available [facility] (Lab) [address] [place], [address], 05/13/2023 14:34:25 05/13/20 23 05/13/2023 COMPR EHENS KECIA METAB OLIC PANEL glucose 93 mg/dL 70-99 Not Available [facility] (Lab) [address] [place], [address], 05/13/2023 14:34:25 05/13/20 23 05/13/2023 COMPR EHENS KECIA METAB OLIC PANEL BUN 16 mg/dL 8-19 Not Available [facility] (Lab) [address] [place], [address], 05/13/2023 14:34:25 05/13/20 23 05/13/2023 COMPR EHENS KECIA METAB OLIC PANEL creatinine 1.69 mg/dL 0.66-1 .25 high Not Available [facility] (Lab) [address] [place], [address], 05/13/2023 14:34:25 05/13/2005/13/2023 COMPR EHENS KECIA METAB OLIC PANEL GFR 30 Refer ence Range : [place] ge GFR Healt hy Adult : >60 [...] calcu lator is avail able on the [facility] websi te: https ://heather [email or web address].christina lynch/pr ofess ional s/kdo qi/gf r_cal culat or Not Available [facility] (Lab) [address] [place], [address], 05/13/2023 14:34:25 05/13/2005/13/2023 COMPR EHENS KECIA METAB OLIC PANEL alkaline phosphatase 58 U/L 38-126 Not Available [facility] (Lab) [address] [place], [address], 05/13/2023 14:34:25 05/13/20 23 05/13/2023 COMPR EHENS KECIA METAB OLIC PANEL alanine aminotransfe rase 16 U/L 0-35 Not Available [facility] (Lab) [address] [place], [address], 05/13/2023 14:34:25 05/13/20 23 05/13/2023 COMPR EHENS KECIA METAB OLIC PANEL aspartate aminotransfe rase 28 U/L 15-37 Not Available [facility] (Lab) [address] [place], [address], 05/13/2023 14:34:25 05/13/20 23 05/13/2023 COMPR EHENS KECIA METAB OLIC PANEL bilirubin, total 0.70 mg/dL 0.20-1 .30 Not Available [facility] (Lab) [address] [place], [address], 05/13/2023 14:34:25 05/13/20 23 05/13/2023 COMPR EHENS KECIA METAB OLIC PANEL calcium 9.3 mg/dL 8.4-10 .2 Not Available [facility] (Lab) [address] [place], [address], 05/13/2023 14:34:25 05/13/20 23 05/13/2023 COMPR EHENS KECIA METAB OLIC PANEL total protein 7.2 g/dL 6.3-8. 2 Not Available [facility] (Lab) [address] [place], [address], 05/13/2023 14:34:25 05/13/20 23 05/13/2023 COMPR EHENS KECIA METAB OLIC PANEL albumin 4.0 g/dL 3.0-4. 4 Not Available [facility] (Lab) [address] [place], [address], 05/13/2023 14:34:25 05/13/20 23 05/13/2023 COMPR EHENS KECIA METAB OLIC PANEL globulin 3.2 g/dL 2.6-4. 2 Not Available [facility] (Lab) [address] [place], [address], 05/13/2023 14:34:25 05/13/20 23 05/13/2023 COMPR EHENS KECIA METAB OLIC PANEL A/G ratio 1.3 ratio 1.0-2. 0 Not Available [facility] (Lab) [address] [place], [address], 05/13/2023 14:34:25 07/04/20 23 07/04/2023 LIPID PANEL cholesterol 165 mg/dL 140-19 9 NIH RHYS NSUS RECOM MENDA TION FOR JENNIFER STERO L: ADULT CHILD LOW RISK: <200 <170 BORDE RLINE : <200- 239 ----- HIGH RISK: >240 >200 Not Available [facility] (Lab) [address] [place], [address], 07/04/2023 13:44:14 07/04/20 23 07/04/2023 LIPID PANEL triglyceride s 173 mg/dL 0-150 high NIH RHYS NSUS REPOR T RECOM MENDA TION FOR TRIGL YCERI LINO: ADULT CHILD LOW RISK: <150 ----- BODER LINE: 150-1 99 ----- HIGH RISK: >200 ----- Not Available [facility] (Lab) [address] [place], [address], 07/04/2023 13:44:14 07/04/20 23 07/04/2023 LIPID PANEL HDL cholesterol 51 mg/dL 40- Not Available [facility] (Lab) [address] [place], [address], 07/04/2023 13:44:14 07/04/20 23 07/04/2023 LIPID PANEL [...] WILL NOT BE REPOR TERRY. Not Available [facility] (Lab) [address] [place], [address], 07/04/2023 13:44:14 07/04/20 23 07/04/2023 COMPR EHENS KECIA METAB OLIC PANEL sodium 140 mmol/ L 137-14 5 Not Available [facility] (Lab) [address] [place], [address], 07/04/2023 13:44:20 07/04/20 23 07/04/2023 COMPR EHENS KECIA METAB OLIC PANEL potassium 4.8 mmol/ L 3.5-5. 1 Not Available [facility] (Lab) [address] [place], [address], 07/04/2023 13:44:20 07/04/20 23 07/04/2023 COMPR EHENS KECIA METAB OLIC PANEL chloride 102 mmol/ L 98-107 Not Available [facility] (Lab) [address] [place], [address], 07/04/2023 13:44:20 07/04/20 23 07/04/2023 COMPR EHENS KECIA METAB OLIC PANEL carbon dioxide 29 mmol/ L 22-30 Not Available [facility] (Lab) [address] [place], [address], 07/04/2023 13:44:20 07/04/20 23 07/04/2023 COMPR EHENS KECIA METAB OLIC PANEL anion gap 13.8 mmol/ L 14-22 low Not Available [facility] (Lab) [address] [place], [address], 07/04/2023 13:44:20 07/04/20 07/04/2023 COMPR EHENS KECIA METAB OLIC PANEL glucose 99 mg/dL 70-99 Not Available [facility] (Lab) [address] [place], [address], 07/04/2023 13:44:20 07/04/20 23 07/04/2023 COMPR EHENS KECIA METAB OLIC PANEL BUN 24 mg/dL 8-19 high Not Available [facility] (Lab) [address] [place], [address], 07/04/2023 13:44:20 07/04/20 23 07/04/2023 COMPR EHENS KECIA METAB OLIC PANEL creatinine 1.83 mg/dL 0.66-1 .25 high Not Available [facility] (Lab) [address] [place], [address], 07/04/2023 13:44:20 07/04/2007/04/2023 COMPR EHENS KECIA METAB OLIC PANEL GFR 27 Refer ence Range : [place] ge GFR Healt hy Adult : >60 [...] c subgr oups, such as [facility] nics. Outsi de the valid ated [...] calcu lator is avail able on the [facility] websi te: https ://heather w.[email or web address] pepe.o rg/pr ofess ional s/kdo qi/gf r_cal culat or Not Available [facility] (Lab) [address] [place], [address], 07/04/2023 13:44:20 07/04/20 23 07/04/2023 COMPR EHENS KECIA METAB OLIC PANEL alkaline phosphatase 70 U/L 38-126 Not Available [facility] (Lab) [address] [place], [address], 07/04/2023 13:44:20 07/04/20 23 07/04/2023 COMPR EHENS KECIA METAB OLIC PANEL alanine aminotransfe rase 16 U/L 0-35 Not Available [facility] (Lab) [address] [place], [address], 07/04/2023 13:44:20 07/04/20 23 07/04/2023 COMPR EHENS KECIA METAB OLIC PANEL aspartate aminotransfe rase 26 U/L 15-37 Not Available [facility] (Lab) [address] [place], [address], 07/04/2023 13:44:20 07/04/20 23 07/04/2023 COMPR EHENS KECIA METAB OLIC PANEL bilirubin, total 0.50 mg/dL 0.20-1 .30 Not Available [facility] (Lab) [address] [place], [address], 07/04/2023 13:44:20 07/04/20 23 07/04/2023 COMPR EHENS KECIA METAB OLIC PANEL calcium 9.2 mg/dL 8.4-10 .2 Not Available [facility] (Lab) [address] [place], [address], 07/04/2023 13:44:20 07/04/20 23 07/04/2023 COMPR EHENS KECIA METAB OLIC PANEL total protein 6.9 g/dL 6.3-8. 2 Not Available [facility] (Lab) [address] [place], [address], 07/04/2023 13:44:20 07/04/20 23 07/04/2023 COMPR EHENS KECIA METAB OLIC PANEL albumin 3.8 g/dL 3.0-4. 4 Not Available [facility] (Lab) [address] [place], [address], 07/04/2023 13:44:20 07/04/20 23 07/04/2023 COMPR EHENS KECIA METAB OLIC PANEL globulin 3.1 g/dL 2.6-4. 2 Not Available [facility] (Lab) [address] [place], [address], 07/04/2023 13:44:20 07/04/20 23 07/04/2023 COMPR EHENS KECIA METAB OLIC PANEL A/G ratio 1.2 ratio 1.0-2. 0 Not Available [facility] (Lab) [address] [place], [address], 07/04/2023 13:44:20 07/04/20 23 07/04/2023 T4 FREE free T4 0.92 NG/dL 0.78-2 .19 Not Available [facility] (Lab) [address] [place], [address], 07/04/2023 14:08:54 07/04/20 23 07/04/2023 T3 FREE free T3 3.4 pg/mL 2.77-5 .27 Not Available [facility] (Lab) [address] [place], [address], 07/04/2023 14:08:59 07/04/20 23 07/04/2023 HEMOG LOBIN A1C HA1C 5.9 % 4.0-6. 0 Diabe brianna Scree gisele Crite pamela: <5.7% Consi stent with absen ce of diabe brianna 5.7-6 .4% Consi stent with incre ased risk for diabe brianna (pred iabet es) >OR=6 .5% Consi stent with diabe brianna REFER ENCE: Diabe brianna Care 2015, 39(Anderson ppl.1 ):s13 -s22 Not Available [facility] (Lab) [address] [place], [address], 07/04/2023 14:14:23 07/04/20 23 07/04/2023 TSH thyroid-stim ulating hormone 1.210 uIU/m L 0.465- 4.680 Not Available [facility] (Lab) [address] [place], [address], 07/04/2023 14:18:28 03/16/20 23 03/16/2023 US, kidne y No observ ation record ed. [facility] [address], [place], [address], 04/05/2023 16:52:27 Result Notes None recorded. Problems Name Problem SNOMED Code Status Onset Date Resolution Date Notes Provider Name and Address Organization Details Recorded Time Dyspnea 838028270 Active 2021 Ingrid drew [facility] 3 16:49:46 Vitamin D deficiency 15559335 Active 2021 Ingrid drew [facility] 3 16:49:46 Hypothyroid ism 62164843 Active 2021 Ingrid drew [facility] 3 16:49:46 Hypokalemia 19530005 Active 2021 Ingrid drew [facility] 3 16:49:47 Hypercortis olism 69106797 Active 2021 Ingrid drew [facility] 3 16:49:47 Vitamin B12 deficiency (non anemic) 57793821 Active 2021 Ingrid Brandy null, [facility] [facility] 3 16:49:47 Prediabetes 869518684 Active 2021 Ingrid Brandy null, [facility] 3 16:49:47 Dyslipidemi a 280286995 Active 2021 Ingrid Brandy null, [facility] 3 16:49:46 Postoperati ve hypothyroid ism 63776299 Active 2021 Ingrid Brandy null, [facility] 3 16:49:46 Obesity 298191747 Active 2022 Ingrid Brandy null, [facility] 3 16:49:47 Well controlled type 2 diabetes mellitus 474890328 Active 2022 Stephanie Morrissey MD [address] [facility], [address], [address], [facility] 3 12:31:31 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 233431687 Active 2022 Stephanie Morrissey MD [address], [address], [address], [facility] 3 20:16:25 Pain of toes of bilateral feet 0646804621499 9102 Active 2024 Ryan Wetzel DPM [facility], [address], [address], [facility] 5 14:21:26 Dystrophia unguium 21499893 Active 2024 Ryan Wetzel DPM [facility], [address], [address], [facility] 5 14:21:31 Notes:Some problems listed i n Documents: #[id number], #[id number] could not be added to this patient's chart. Please review these documents and add these problems to the patient's chart manually as needed. Problem Notes None recorded. Procedures Surgical History Date Name Laterality Status Provider Name and Address Organization Details Recorded Time 07/18/20 25 Nail Debridement completed Ryan Wetzel DPM [address] [facility], [facility] [address], [place], [address], [facility] [employer] [facility] 07/18/2025 14:20:00 11/09/19 22 Foot Surgery completed Not Available [facility] 01/05/2023 22:43:30 removal of cardiac pacemaker completed Not Available [facility] 01/05/2023 22:43:30 Pacemaker completed Not Available [facility] 01/05/2023 22:43:30 Hysterectomy completed Not Available [facility] 01/05/2023 22:43:30 cholecystectomy completed Not Available [facility] 01/05/2023 22:43:30 Imaging Results None recorded. Procedure Notes None recorded. Medical Equipment None Reported. Allergies Allergen ID Allergen Name Allergen Category Reaction Reaction Severity Criticality Documentation Date Start Date Code Code System Note Provider Name and Address Organization Details Recorded Time 93045 lisinopri l medicatio n Not available Not available Not available 01/05/2023 10834 RxNorm Not Available [facility] 22:48:44 Medications Name Sig Start Date Stop [...] Not Available Not Available Not Available furosemide 40 mg tablet TAKE 1 TABLET BY MOUTH DAILY active Not Available Not Available No t Available atorvastati n 40 mg tablet TAKE [...] Available Not Available Unithroid 88 mcg tablet TAKE 1 TABLET BY MOUTH DAILY active Not Available Not Available No t Available gabapentin 600 mg tablet TAKE 1 TABLET BY MOUTH THREE TIMES DAILY 09/27 completed Not Available Not Available Not Available ipratropium 0.5 mg-albutero l 3 mg (2.5 mg base)/3 mL nebulizatio n soln USE 3 ML VIA NEBULIZER FOUR TIMES DAILY active Not Available Not Available No t Available albuterol sulfate 2.5 mg/3 mL (0.083 %) solution for nebulizatio n USE 1 VIAL VIA NEBULIZER EVERY 4 TO 6 HOURS NEEDED FOR SHORTNESS OF BREATH OR WHEEZING active Not Available Not Available No t Available trazodone 50 mg tablet TAKE 1 TABLET BY MOUTH EVERY NIGHT AT BEDTIME 05/27 completed Not Available Not Available Not Available cetirizine 10 mg tablet TAKE 1 TABLET BY MOUTH ONCE DAILY 09/27 completed Not Available Not Available Not Available oxybutynin chloride ER 10 mg tablet,exte nded release 24 hr TAKE 1 TABLET BY MOUTH DAILY active Not Available Not Available No t Available azithromyci n 250 mg tablet TAKE 2 TABLETS BY MOUTH THREE TIMES PER WEEK active Not Available Not Available No t Available hydrocodone 5 mg-acetamin ophen 325 mg [...] tablet TAKE 2 TABLETS BY MOUTH DAILY 07/18 completed Not Available Not Available Not Available isosorbide mononitrate ER 30 mg tablet,exte nded release 24 hr TAKE 1 TABLET BY MOUTH EVERY DAY active Not Available Not Available No t Available sertraline 100 mg tablet 09/27 completed [...] Available Not Available Not Available hydroxyzine HCl 50 mg tablet TAKE 1-2 TABLETS BY MOUTH THREE TIMES DAILY NEEDED FOR ITCHING 07/18 completed Not Available Not Available Not Available [...] TAKE 1 TABLET BY MOUTH EVERY DAY active Not Available Not Available No t Available allopurinol 100 mg tablet TAKE 1 TABLET BY MOUTH ONCE DAILY 03/17 completed Not Available Not Available Not Available valacyclovi r 500 mg tablet TAKE 1 TABLET BY MOUTH TWICE DAILY. START TAKING 48 HOURS BEFORE PROCEDURE active Not Available Not Available No t Available sulfamethox azole 800 mg-trimetho prim 160 mg tablet TAKE 1 TABLET BY MOUTH TWICE DAILY 07/23 completed Not Available Not Available Not Available hydrocodone 10 mg-acetamin ophen 325 mg tablet TAKE 1 TABLET BY MOUTH FOUR TIMES DAILY active Not Available Not Available No t Available minoxidil 2.5 mg tablet TAKE 1 TABLET BY MOUTH EVERY DAY 07/18 completed Not Available Not Available Not Available [...] completed Not Available Not Available Not Available alprazolam 0.25 mg tablet TAKE 1 TABLET BY MOUTH TWICE DAILY NEEDED 07/18 completed Not Available Not Available Not Available magnesium oxide 400 mg (241.3 mg magnesium) tablet TAKE 1 TABLET BY MOUTH TWICE DAILY active Not Available Not Available No t Available trazodone 100 mg tablet TAKE 1 [...] ne 1 mg tablet TAKE 1 TABLET BY MOUTH AT 11PM THE NIGHT BEFORE BLOOD TEST 07/18 completed Not Available Not Available Not Available amlodipine 10 mg tablet TAKE 1 TABLET BY MOUTH EVERY DAY 09/27 completed Not Available Not Available Not Available benzonatate 100 mg capsule TAKE 1 CAPSULE BY MOUTH THREE TIMES DAILY NEEDED FOR COUGH 07/18 completed Not Available Not Available Not Available [...] Available Not Available Unithroid 100 mcg tablet TAKE 1 TABLET BY MOUTH DAILY 07/18 completed Not Available Not Available Not Available gabapentin 300 mg capsule TAKE 1 CAPSULE BY MOUTH THREE TIMES DAILY 09/27 completed Not Available Not Available Not Available budesonide 0.5 mg/2 mL suspension for nebulizatio n INHALE 1 VIAL VIA NEBULIZER ONCE DAILY active Not Available Not Available No t Available aspirin 81 mg chewable tablet 09/27 completed Not Available Not Available Not Available insulin syringe U-100 with needle 1 mL 31 gauge x 03/22 USE DIRECTED TO INJECT B12 ONCE EVERY WEEK 10/15 completed Not Available Not Available Not Available hydroxyzine HCl 25 mg tablet TAKE 1 TABLET BY MOUTH FOUR TIMES DAILY NEEDED FOR ANXIETY 07/18 completed Not Available Not Available Not Available hydralazine 50 mg tablet TAKE 1 TABLET BY MOUTH EVERY NIGHT AT BEDTIME 07/18 completed Not Available Not Available Not Available [...] Available Not Available furosemide 20 mg tablet TAKE 1 TABLET BY MOUTH DAILY 07/18 completed Not Available Not Available Not Available [...] DROP IN BOTH EYES THREE TIMES DAILY 07/18 completed Not Available Not Available Not Available budesonide DR - ER 3 mg capsule,del ayed,extend ed release TAKE 1 CAPSULE BY MOUTH DAILY 09/21 completed Not Available Not Available Not Available levofloxaci n 500 mg tablet TAKE 1 TABLET BY MOUTH DAILY active Not Available Not Available No t Available methylpredn isolone 4 mg tablets in a dose pack FOLLOW PACKAGE DIRECTION S active Not Available Not Available No t Available albuterol sulfate HFA 90 mcg/actuati on aerosol inhaler INHALE 1 PUFF BY MOUTH THREE TIMES DAILY NEEDED active Not Available Not Available No t Available Unithroid 75 mcg tablet TAKE 1 TABLET BY MOUTH DAILY AT 6.30 AM 09/11 /2025 completed Not Available Not Available Not Available [...] 1 CAPSULE BY MOUTH EVERY 12 HOURS 07/18 completed Not Available Not Available Not Available [...] Available Not Available Not Available doxycycline hyclate 100 mg tablet TAKE 1 TABLET BY MOUTH TWICE DAILY FOR 5 DAYS 07/18 completed Not Available Not Available Not Available phentermine 37.5 mg capsule TAKE 1 CAPSULE BY MOUTH ONCE DAILY BEFORE BREAKFAST 07/23 completed Not Available Not Available Not Available loratadine 10 mg tablet TAKE 1 TABLET BY MOUTH EVERY NIGHT AT BEDTIME 07/18 completed Not Available Not Available Not Available amoxicillin 875 mg-potassiu m clavulanate 125 mg tablet TAKE 1 TABLET BY MOUTH EVERY 12 HOURS 07/18 completed Not Available Not Available Not Available [...] TAKE 1 TABLET BY MOUTH EVERY DAY active Not Available Not Available No t Available rosuvastati n 40 mg tablet TAKE 1 TABLET BY MOUTH EVERY DAY 10/15 completed Not Available Not Available Not Available duloxetine 20 mg capsule,del ayed release TAKE 1 CAPSULE BY MOUTH EVERY DAY 07/18 completed Not Available Not Available Not Available pregabalin 200 mg capsule TAKE 1 CAPSULE BY MOUTH TWICE DAILY active Not Available Not Available No t Available ramelteon 8 mg tablet TAKE 1 TABLET BY MOUTH EVERY DAY AT BEDTIME 03/17 completed Not Available Not Available Not Available aripiprazol e 2 mg tablet TAKE 1 TABLET BY MOUTH DAILY 07/18 completed Not Available Not Available Not Available [...] completed Not Available Not Available Not Available lurasidone 20 mg tablet TAKE 1 TABLET BY MOUTH EVERY EVENING WITH FOOD active Not Available Not Available No t Available Korlym 300 mg tablet Take 1 [...] Not Available Not Available Not Available Farxiga 10 mg tablet TAKE 1 TABLET BY MOUTH DAILY active Not Available Not Available No t Available Farxiga 5 mg tablet TAKE 1 TABLET BY MOUTH EVERY DAY IN THE MORNING 09/27 completed Not Available Not Available Not Available potassium chloride ER 20 mEq tablet,exte nded release TAKE 1 TABLET BY MOUTH DAILY active Not Available Not Available No t Available Anoro Ellipta 62.5 mcg-25 mcg/actuati on powder for inhalation INHALE 1 PUFF BY MOUTH DAILY 09/27 completed Not Available Not Available Not Available guaifenesin ER 600 mg tablet, extended release 12 hr TAKE 2 TABLETS BY MOUTH EVERY 12 HOURS 07/18 completed Not Available Not Available Not Available Belsomra 10 mg tablet TAKE 1 TABLET BY MOUTH EVERY DAY AT BEDTIME 09/27 completed Not Available Not Available Not Available Trintellix 10 mg tablet TAKE 1 TABLET BY MOUTH EVERY DAY IN THE MORNING 01/21 completed Not Available Not Available Not Available Trintellix 20 mg tablet TAKE 1 TABLET BY MOUTH DAILY active Not Available Not Available No t Available OneTouch Ultra2 Meter USE DIRECTED 09/27 completed Not Available Not Available Not Available OneTouch Delica Plus Lancet 33 gauge USE EVERY DAY 09/27 completed Not Available Not Available Not Available Breztri Aerosphere 160 mcg-9mcg-4. 8mcg/actuat ion HFA aerosol inhaler INHALE 2 PUFFS BY MOUTH TWICE DAILY. RINSE MOUTH WITH WATER AND SPIT 07/18 completed Not Available Not Available Not Available Ozempic 1 mg/dose (4 mg/3 mL) subcutaneou s pen injector INJECT 1 MG UNDER THE SKIN ON THE SAME DAY ONCE EVERY WEEK 09/27 completed Not Available Not Available Not Available AlejandroaxNOW COVID-19 Ag Self Test kit Use as [...] completed Not Available Not Available Not Available Mounjaro 7.5 mg/0.5 mL subcutaneou s pen injector ADMINISTE R 7.5 MG UNDER THE SKIN WEEKLY 07/18 completed Not Available Not Available Not Available Mounjaro 5 mg/0.5 mL subcutaneou s pen injector ADMINISTE R 5 MG UNDER THE SKIN WEEKLY 07/18 completed Not Available Not Available Not Available Mounjaro 10 mg/0.5 mL subcutaneou s pen injector ADMINISTE R 10 MG UNDER THE SKIN WEEKLY active Not Available Not Available No t Available Mounjaro 2.5 mg/0.5 mL subcutaneou s pen injector ADMINISTE R 2.5 MG UNDER THE SKIN WEEKLY FOR 4 WEEKS 07/18 completed Not Available Not Available Not Available Ozempic 0.25 mg or 0.5 mg (2 mg/3 mL) subcutaneou s pen injector INJECT 0.5 MG UNDER THE SKIN EVERY WEEK 07/14 completed Not Available Not Available Not Available Vitals Date Recorded Body mass index (BMI) Body height Oxygen saturation Oxygen saturation in Arterial blood by Pulse oximetry Heart rate Body temperature Body weight Systolic And Diastolic Provider Name and Address Organization Details Last Updated DateTime 3 39.1 kg/m2 157.48 cm 96 % 96 % 58 /min 97.6 [degF] 81935.7 7 g 140/65 mm[Hg] Not Available [facility] 3 22:45:29 Date Recorded Body height Body mass index (BMI) Body weight Body temperature Respiratory rate Heart rate Systolic And Diastolic Provider Name and Address Organization Details Last Updated DateTime 3 157.48 cm 39.8 kg/m2 24284.9 8 g 96.1 [degF] 20 /min 67 /min 130/64 mm[Hg] CANDIE Avelar [facility] [employer] [facility] 3 11:52:51 Date Recorded Body height Body mass index (BMI) Body weight Heart rate Body temperature Systolic And Diastolic Provider Name and Address Organization Details Last Updated DateTime 3 157.48 cm 40.8 kg/m2 569038. 82 g 63 /min 97.1 [degF] 142/70 mm[Hg] Nicole Chavis MA [facility] [employer] [facility] 3 12:11:36 Date Recorded Body height Body mass index (BMI) Body weight Heart rate Respiratory rate Oxygen saturation Oxygen saturation in Arterial blood by Pulse oximetry Provider Name and Address Organization Details Last Updated DateTime 5 157.48 cm 40.8 kg/m2 123325. 1 g 87 /min 16 /min 97 % 97 % Aria Baker [facility] [employer] [facility] 5 14:07:48 Date Recorded Body mass index (BMI) Body height Oxygen saturation Oxygen saturation in Arterial blood by Pulse oximetry Heart rate Body temperature Body weight Systolic And Diastolic Provider Name and Address Organization Details Last Updated DateTime 2 40.2 kg/m2 157.48 cm 96 % 96 % 65 /min 97.3 [degF] 67470.3 2 g 130/55 mm[Hg] Not Available [facility] 3 22:45:29 Social History Question Answer Notes LastModified by Organizat ion Details LastModified Time Tobacco Smoking Status Former Smoker Not Available [facility] 01/05/2023 22:43:25 Do You Have An Advance Directive? No Information not available 07/14/2023 Are You Blind Or Do You Have Difficulty Seeing? No Information not available 07/14/2023 Is Blood Transfusion Acceptable In An Emergency? Yes Information not available 07/14/2023 What Is Your Level Of Caffeine Consumption? Heavy [id number] Information not available 01/05/2023 What Is Your [...] Or The Highest Degree You Have Received? [id number] Information not available 07/14/2023 When Did You Quit Smoking? 1-5yearssince lastcigarette [id number] Information not available 01/05/2023 Are There Any Guns Present In Your Home? No Information not available 07/14/2023 Where Do You Live? Apartment Information not available 07/14/2023 Do You Have A Medical Power Of Dairy Technician? No Information not available 07/14/2023 What Is Your Relationship Status? [id number] Information not available 01/05/2023 Do You Use [...] Has Tobacco Cessation Counseling Been Provided? No [id number] Information not available 01/05/2023 Have You Recently Traveled Abroad? No Information not available 07/14/2023 Do You Have Difficulty Walking Or Climbing Stairs? Yes Information not available 07/14/2023 Do You Have Any Dietary Restrictions? No Information not available 07/14/2023 Sex: Female Functional Status Question Answer Note LastModified by Organizat ion Details LastModified Time Do you use any illicit or recreational drugs? No [id number] Information not available 01/05/2023 Do you or have you ever used any other forms of tobacco or nicotine? No [id number] Information not available 01/05/2023 What is your level of alcohol consumption? None [id number] Information not available 01/05/2023 Are you currently employed? No retired [employer] Information not available 07/14/2023 Do you have transportation difficulties? Yes Information not available 07/14/2023 Are you able to walk independently without assistance or assistive devices? YESASSIST holds on to reletive or wall if alone Information not available 07/14/2023 Do you have difficulty doing errands alone? Yes family member usually with her Information not available 07/14/2023 Are you able to care for yourself independently? Yes Information not available 07/14/2023 Do you have difficulty dressing, bathing, grooming, or toileting? Yes starting to have difficulty getting out of the tub . Information not available 07/14/2023 What is your exercise level? None Information not available 07/14/2023 Mental Status Question Answer Note LastModified by Organizat ion Details LastModified Time Do you feel stressed (tense, restless, nervous, or anxious, or unable to sleep at night)? [id number] anxiety and depression Information not available 07/14/2023 Do you have difficulty concentrating, remembering or making decisions? Yes Information not available 07/14/2023 Family History Relationship Description Onset Age of this Age Resolved Age Notes LastModified by Organization Details LastModified Time Father Malignant neoplasm of brain [id number] Not available 01/05/2023 22:43:33 Mother Chronic obstructive pulmonary disease [id number] Not available 01/05/2023 22:43:33 Medical History Condition Response OBESITY Y ANEMIA/BLOOD DISORDER Y HYPOTHYROIDISM Y KIDNEY DISEASE Y HAVE YOU BEEN HOSPITALIZED OR SEEN IN [facility] ER IN THE PAST YEAR ? Y HYPERTENSION Y HIGH CHOLESTEROL / HYPERLIPIDEMIA Y Gynecological HistoryNo gynecological history recorded. Obstetrics History GPAL:G 3 P 3 0 0 0 Type Value Full Term 3 Total 3 Past Encounters Encounter ID Performer Location Encounter Start Date Encounter Closed Date Diagnosis/Indication Diagnosis SNOMED-CT Code Diagnosis ICD10 Code Diagnosis IMO Codes Diagnosis Note [id number] MD ERIKA Peterson IGRATION_ DEFAULT_1 _1 , 07/23/2021 00:00:00 07/23/2021 16:41:16 [id number] Stephanie Morrissey MD [facility] [address] [place] [address] 09/21/2021 00:00:00 09/21/2021 15:39:35 [id number] MD ERIKA Peterson IGRATION_ DEFAULT_1 _1 , 01/21/2022 00:00:00 01/21/2022 15:21:48 [id number] MD ERIKA Peterson IGRATION_ DEFAULT_1 _1 , 04/29/2022 00:00:00 04/29/2022 15:22:35 [id number] [facility] IGRATION_ DEFAULT_1 _1 , 05/27/2022 00:00:00 05/27/2022 17:30:55 [id number] [facility] _[facility]NA_M IGRATION_ DEFAULT_1 _1 , 06/24/2022 00:00:00 06/24/2022 22:01:51 [id number] Stephanie Morrissey MD [facility] [address] [place] [address] 10/15/2022 00:00:00 10/15/2022 21:47:35 [id number] Stephanie Morrissey MD [facility] [address] [place] [address] 12/17/2022 00:00:00 12/17/2022 13:58:24 [id number] Stephanie Morrissey MD [facility] [address] [place] [address] 03/17/2023 11:38:23 03/17/2023 12:30:34 Prediabetes 867169672 R73.03 Patient actually well controlled DM- a1c [...] Recommende d she incorporat e natural insulin warning coordination meteorologist s such as pears, apples, cinnamon, janie and sweet potatoes to help mobilize her endogenous insulin. Recommende d up to 150 minutes of moderate level activity/e xercise weekly. Continue on kerendia for proteinuri a. Repeat K in range and microalbum in trending downward. Obesity 198612257 E66.9 Recommende d GLP1 agonist therapy as she is having trouble at times with cravings of sweets and portion control. Discussed potentiall y reducing total carb intake to 120 grams daily into 4-5 small split meals with addition of healthy protein based snack at bedtime to help reduce hip hop artist hyperglyce sindhu. She has no hx of [...] meal of that day as tolerated. Hypothyroidism 58557856 E03.9 Will uptitrate unithroid to 100 mcg [...] and minerals and reduce inflammati on. Hypercortisolism 9663691 [address] adrenal completed [...] she chooses to go outside of the [facility] system to obtain labwork she was [...] in her case. She voiced understand ing. [id number] Stephanie Morrissey MD [facility] [address] [place] [address] 07/14/2023 11:51:07 07/14/2023 12:50:55 Well controlled type 2 diabetes mellitus 692941379 E11.9 a1c of 5.9% in range- no hypoglycem ia- she is tolerating therapy well. Will uptitrate ozempic to 2 mg once weekly and continue low dose farxiga 5 mg daily. Off metformin due to CKD. Discussed carb counting and how to read food labels. Recommende d patient to utilize the diabetesfo [employer] from the ADA website to help with food preparatio n as this presents ideal carb content per meal so this will make carb counting much easier for patient. Recommende d she incorporat e natural insulin warning coordination meteorologist s such as pears, apples, cinnamon, janie and sweet potatoes to help mobilize her endogenous insulin. Recommende d up to 150 minutes of moderate level activity/e xercise weekly. Hypothyroidism 96545885 E03.9 FT4 in range - continue unithroid [...] and minerals and reduce inflammati on. Hypercortisolism 5114663 [address] adrenal completed [...] answered and refills necessary at visit today. [id number] Ryan Wetzel DPM [facility] [place] [facility] [address] [place] [address] 07/18/2025 13:59:54 07/19/2025 13:55:46 Pain of toes of bilateral feet 0419910956 3842120 M79.674 M79.675 [id number] due to toenails Dystrophia unguium 12040 009 L60.3 1009 Nails 1 through 8 were debrided with sharp mechanical debridemen t without incident. Nails were debrided and greater than 50% length and thickness where needed. Health Concerns Section Related Observation LastModified by Organization Detai ls LastModified Time None Recorded Concern Status LastModified by Organization Details LastModified Time None Recorded Advance Directives Directive N: Payers Insurance Date Sequence Insurance Name Policy Number Policy Pena Covered Member ID Pena Member ID Guarantor Name 07/18/2025 1 [facility] (MEDICARE REPLACEMENT/A DVANTAGE - PPO) [id number] Jacy Mills [id number] Jacy Mills 07/18/2025 2 [place] [employer] [facility] [employer] [facility] Jacy Mills [id number] Jacy Mills Notes Date Note Type Note Provider Name and Address Organization Details Recorded Time 03/17/2023 text/html ROS as noted in the HPI 77 yo female comes in for follow up in management of overall well controlled type 2 DM (A1C of 6.3% up from 5.6%), dyslipidemia, hypothyroidism and hypercortisolism last seen in Dec at that time we continued farxiga 5 mg daily as patient cannot take metformin due to CKD. We continued unithroid 75 mcg daily. We started kerendia for proteinuria. Patient sent to [facility] and per Dr. Chakraborty [...] 26 ml/minLFT normal Stephanie Morrissey MD [address] [facility], [facility] [address], [place], [address], [facility] 03/17/2023 14:04:12 07/14/2023 text/html ROS as noted in the HPI 77 yo female comes in for follow up in management of [...] ng/dlFt3 of 3.4 pg/mLa1c of 5.9%K 4.8 mmol/substation electrician supervisor normalglucose 99 mg/dLCr 1.83 mg/dL with GFR 27 ml/minLFT normal Stephanie Morrissey MD [address], [facility] [address], [place], [address], [facility] [employer] 07/14/2023 13:34:56 07/18/2025 text/html . Patient is a 79-year-old female she presents to office with complaints of toe pain. Patient states that she can not bend over to cut her toenails and they are thickened painful. Patient has had previous great toenail surgery removal. Patient has also had hammertoe surgery of the right 5th toe. Patient states she has not had any wounds or infection of the toes. Patient denies knowing exactly what surgery she had performed on her 5th toe. Patient denies any other complaints. Ryan Wetzel DPM [address], [facility] [address], [place], [address], [facility] [place] [facility] 07/18/2025 14:58:18 OBGyn Episode No OBEpisode recorded.
--- OUTSIDE RECORDS SUMMARY | 2025-09-12 19:42 | XMS_ITS ---
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 Other Current Plans Cortrosyn Stimulation test - high dose (250 MCG)* Plan Start Date:08/07/2025 Plan Provider:Valery Chakraborty MD Linked Problems Low serum cortisol level Treatment Medications No medications scheduled. Past Treatment and Therapy Plans No past [...] Patient need to follow up with her explosive operator grenade Dr. Fitch at [facility] on 06/28 Acute pulmonary edema 05/18/20222021 [...] on room air- transition to torsemide per explosive operator grenade, add low dose potassium supplement. Continue to [...]
--- OUTSIDE RECORDS SUMMARY | 2025-09-12 19:42 | XMS_ITS | Clinical Summary ---
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 Name Role Phone Jn Velásquez MD Unavailable [phone] Jn Velásquez MD Primary Care Provider [phone] Encounters Date Type Department Care Team Description 08/13/2025 2:41 PM CDT - 08/13/2025 11:59 PM CDT Hospital Encounter [facility] [address] [place] [address] Katarzyna Schneider MD Discharge Disposition: Home or Self Care (Routine Discharge) 08/13/2025 Travel from Last 3 Months Social History Tobacco Use Types Packs/Day Years Used Date Smoking Tobacco: Never Assessed Comments Unknown Sex and Gender Information Value Date Recorded Sex Assigned at Female 08/13/2025 2:28 PM CDT Legal Sex Female 8:29 PM CDT Gender Identity Not on file Sexual Orientation Not on file Plan of Treatment Health Maintenance Due Date Last Done Comments Zoster Vaccines (1 of 2) 1997 Annual Medicare Wellness Visit 2012 Dexa Scan (General) 2012 Pneumococcal Vaccine: 50+ Years (2 of 2 - PCV20 or PCV21) 11/26/2016 11/26/2015, 11/07/2009 RSV Immunization or 60+ Years (1 - 1-dose 75+ series) 2022 COVID-19 Vaccine (3 - 2024-2 6 season) 2025 02/20/2021, 01/23/2021 Influenza Adult (#1) 2025 09/10/2024, 08/07/2021, 07/18/2020 DTaP, Tdap and Td Vaccines ( 2 - Td or Tdap) 02/04/2031 02/04/2021 Hepatitis C Completed 06/10/2014 Hepatitis A Vaccines Aged Out No long er eligible based on patient's age to complete this topic Meningococcal B Vaccine Aged Out No l onger eligible based on patient's age to complete this topic Meningococcal Vaccine Aged Out No trae zeina eligible based on patient's age to complete this topic RSV Immunizations Under 20 Months Aged Out No longer eligible b ased on patient's age to complete this topic Procedures Procedure Name Priority Date/Time Associated Diagnosis Comments MRI LUMB SPINE WO CON Routine 08/13/2025 3:31 PM CDT Low back pain, unspecified back pain laterality, unspecified chronicity, unspecified whether sciatica present from Last 3 Months Results * MRI LUMB SPINE WO CON (08/13/2025 3:31 PM CDT) Anatomical Region Laterality Modality Spine Magnetic Resonan ce 08/22/2025 10:4 1 AM CDT Impressions 08/22/2025 10:50 AM CDT IMPRESSION: Multilevel degenerative changes are present involving the lumbar spine. There is significant canal stenosis that is present greatest at L3-4 and L4-5 as discussed above. Multilevel neural foraminal narrowing is present. Disc protrusion with inferior extrusion at L3-4. Tarlov cysts versus synovial cyst on the LEFT at S1. Referred By: KATARZYNA SCHNEIDER Interpreted By: Sandeep Jimenez MD, 08/22/2025 10:41 AM Narrative 08/22/2025 10:50 AM CDT [facility] [address] [place] [address] Procedure(s): MRI LUMB SPINE WO CON Date of service: 08/13/2025 3:06 PM Provided clinical information: 79 years, Female, Low back pain Procedure and materials: Multiplanar multisequence MRI of the lumbar spine is performed. Comparison studies: None. Findings: There is straightening of the normal lumbar lordosis. There is loss of height of the disc space present throughout the entire lumbar spine. The conus terminates posterior to T12-L1. No marrow edematous changes are present involving the lumbar vertebra. There is a Tarlov cyst versus synovial cyst present at S1 to on the LEFT. At T11-12 there is mild diffuse disc bulge is present. Facet hypertrophic changes are present. Mild canal stenosis is present. The neural foramina appear patent. 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 This measures approximately 1.5 x 1.3 x 3.2 cm. No internal soft tissue components are present. At T12-L1 there is diffuse disc bulge with ligamentous and facet hypertrophic changes. There is mild canal stenosis that is present. The neural foramina are patent. At L1-2 there is diffuse disc bulge with ligamentous and facet hypertrophic changes. There is moderate canal stenosis. There is mild to moderate bilateral neural foraminal narrowing. This is greater on the RIGHT than on the LEFT. At L2-3 there is diffuse disc bulge is present. Ligamentous and facet hypertrophic changes are present. Mild canal stenosis is present. The LEFT neural foramen is patent. There is moderate RIGHT neural foraminal narrowing. At L3-4 there is diffuse disc bulge with central protrusion with inferior extrusion. There is severe canal stenosis. There is severe bilateral neural foraminal narrowing. At L4-5 there is diffuse disc bulge with facet and ligamentous hypertrophic changes. There is severe canal stenosis with near total obliteration of the canal. There is severe bilateral neural foraminal narrowing LEFT greater than RIGHT. At L5-S1 there are facet hypertrophic changes are present. Mild disc bulge is present. The canal is not stenotic. The RIGHT neural foramen is patent. There is moderate LEFT neural foraminal narrowing. Procedure Note Sandeep Jimenez MD - 08/22/2025 [facility] [address] [place] [address] Procedure(s): MRI LUMB SPINE WO CON Date of service: 08/13/2025 3:06 PM Provided clinical information: 79 years, Female, Low back pain Procedure and materials: Multiplanar multisequence MRI of the lumbar spineis performed. Comparison studies: None. Findings: There is straightening of the normal lumbar lordosis. There is loss ofheight of the disc space present throughout the entire lumbar spine. Theconus terminates posterior to T12-L1. No marrow edematous changes arepresent involving the lumbar vertebra. There is a Tarlov cyst versus synovial cyst present at S1 to on theLEFT. At T11-12 there is mild diffuse disc bulge is present. Facet hypertrophicchanges are present. Mild canal stenosis is present. The neural foraminaappear patent. There is an intramuscular lipoma present in the LEFT back musculature atthe thoracolumbar junction. This measures approximately 1.5 x 1.3 x 3.2cm. No internal soft tissue components are present. At T12-L1 there is diffuse disc bulge with ligamentous and facethypertrophic changes. There is mild canal stenosis that is present. Theneural foramina are patent. At L1-2 there is diffuse disc bulge with ligamentous and facethypertrophic changes. There is moderate canal stenosis. There is mild tomoderate bilateral neural foraminal narrowing. This is greater on theRIGHT than on the LEFT. At L2-3 there is diffuse disc bulge is present. Ligamentous and facethypertrophic changes are present. Mild canal stenosis is present. The LEFTneural foramen is patent. There is moderate RIGHT neural foraminalnarrowing. At L3-4 there is diffuse disc bulge with central protrusion with inferiorextrusion. There is severe canal stenosis. There is severe bilateralneural foraminal narrowing. At L4-5 there is diffuse disc bulge with facet and ligamentoushypertrophic changes. There is severe canal stenosis with near totalobliteration of the canal. There is severe bilateral neural foraminalnarrowing LEFT greater than RIGHT. At L5-S1 there are facet hypertrophic changes are present. Mild disc bulgeis present. The canal is not stenotic. The RIGHT neural foramen is patent.There is moderate LEFT neural foraminal narrowing. IMPRESSION: Multilevel degenerative changes are present involving the lumbar spine.There is significant canal stenosis that is present greatest at L3-4 andL4-5 as discussed above. Multilevel neural foraminal narrowing ispresent. Disc protrusion with inferior extrusion at L3-4. Tarlov cysts versus synovial cyst on the LEFT at S1. 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
== END 2025-09-12 12:49 | disposition home or self-care (01) ==
LOC: ANHLAB 12:50
PROVIDERS: PCP Family Medicine; Visit Provider Nurse Practitioner Family
DX: I50.9 Heart failure, unspecified (principal)
CPT/HCPCS: 36415; 83880